=== PATIENT | male | born 1940 | race Caucasian/White ===

== ENCOUNTER → 2018-01-01 | Outpatient (CLI) | payer MEDICARE ==
[2018-01-01 14:06] LABS: SEDIMENTATION RATE 42 (0-15)
[2018-01-02 02:18] LABS: RHEUMATOID FACTOR <10.0 IU/mL (0.0-13.9)
[2018-01-03 20:13] LABS: ANA INTERP Positive (.)
== END | disposition home or self-care (01) ==
LOC: LAB 12:46
DX: E04.1 Nontoxic single thyroid nodule (principal); G93.0 Cerebral cysts
CPT/HCPCS: 36415; 85651; 86038; 86431

== ENCOUNTER 2018-04-28 15:49 | Emergency (ER) | payer MEDICARE ==
[~2018-04-28] VITALS: Ht 177.8 cm; Wt 68.0 kg
[~2018-04-28 15:49] MED LIST: ATEN25TA PO; LEVO50TA5 PO; LOSA1TAB19 PO; METO-239 PO; OMEP40CA5 PO
[2018-04-28] MEDS ORDERED: LIDOCAINE 1% PF 2 ML VIAL. INJ ONE (17:00)
[2018-04-28] MEDS ORDERED: DIPHTH,PERTUSS(ACELL),TET TOX 0.5 ML DISP.SYRIN. VAX IM ONE (17:00)
[2018-04-28] MEDS ORDERED: NEOMY/BACITR/POLYMYXIN OINT PACKET. TP ONE (18:00)
--- NOTE | 2018-04-28 18:29 | PHYS DOC ---
Past Medical History Past Medical History: Cancer, Depression Additional Past Medical Histor: prostate CA Past Surgical History: Cancer Surgery Additional Past Surgical Histo: prosectomy, right ankle Alcohol Use: Occasionally Drug Use: None Adult General Chief Complaint Chief Complaint: MECHANICAL FALL HPI HPI Patient is a 77 year old male who presents to the ER with complaints of a laceration to his left eyebrow and facial abrasions after trip and fall this afternoon. Pt states he was carrying groceries in when he tripped on the top step and fell. Pt denies any numbness, tingling, nausea, vomiting, or loss of consciousness. He denies any headache at this time. He is unsure of when his last tetanus shot was. He drove him self to the ER and lives at home with his . Review of Systems Review of Systems Constitutional: Denies fever or chills [] Eyes: Denies change in visual acuity, redness, or eye pain [] HENT: Denies nasal congestion or sore throat [] GI: Denies nausea, or vomiting Musculoskeletal: Denies back pain or joint pain [] Integument: Reports laceration to left eyebrow, and abrasions to bridge of nose and left upper lip Neurologic: Denies headache, focal weakness or sensory changes [] All other systems were reviewed and found to be within normal limits, except as documented in this note. Current Medications Current Medications Current Medications Medications (Trade) Dose Ordered Sig/Anjana Start Time Stop Time Status Last Admin Dose Admin Diphtheria/ Tetanus/Acell Pertussis (Boostrix) 0.5 ml ONCE ONCE 04/28/18 17:00 04/28/18 17:01 DC 04/28/18 17:03 0.5 ML Lidocaine HCl (Xylocaine-Mpf 1% 2ml Vial) 4 ml 1X ONCE 04/28/18 17:00 04/28/18 17:01 DC 04/28/18 17:03 4 ML Neomycin/ Polymyxin/ Bacitracin (Triple Antibiotic Ointment) 1 pkt 1X ONCE 04/28/18 18:00 04/28/18 18:01 DC 04/28/18 18:17 1 PKT Allergies Allergies Allergies Coded Allergies Type Severity Reaction Last Updated Verified No Known Drug Allergies 10/25/14 No Physical Exam Physical Exam Constitutional: Well developed, well nourished, no acute distress, non-toxic appearance. [] HENT: Normocephalic, atraumatic, bilateral external ears normal, oropharynx moist, no oral exudates, nose normal. [] Eyes: PERRLA, conjunctiva normal, no discharge. [] Neck: Normal range of motion, no body tenderness, supple, no stridor. [] Skin: Warm, dry; 3 cm laceration noted above left eyebrow, abrasions noted to bridge of nose and left upper lip] Extremities: No tenderness, no cyanosis, no clubbing, ROM intact, no edema. [] Neurologic: Alert and oriented X 3, normal motor function, normal sensory function, no focal deficits noted. [] Psychologic: Affect normal, judgement normal, mood normal. [] Current Patient Data Vital Signs Vital Signs Date Time Temp Pulse Resp B/P (MAP) Pulse Ox O2 Delivery O2 Flow Rate FiO2 04/28/18 16:34 97.7 76 20 155/71 (99) 98 Room Air 97.7 EKG EKG [] Radiology/Procedures Radiology/Procedures Laceration Repair by me: Anesthesia: 1% lidocaine locally Location: left eyebrow Tendon/Joint/Nerves: No injury Foreign body: None detected after copious irrigation and exploration Technique: 7 Simple Interrupted Sutures with 6-0 ethilon Complexity: No subcutaneous sutures/mucosal repair/edge excision Post Closure Length: 3 cm Patient's bleeding was easily controlled in the department and there is no indication of anemia. No evidence of compartment syndrome, neurologic injury, vascular injury, open joint, tendon laceration, or foreign body. Patient is appropriate for outpatient follow up. 48 hour wound check. Scar minimization instructions given.[] Course & Med Decision Making Course & Med Decision Making Pertinent Labs and Imaging studies reviewed. (See chart for details) Pt declined a CT head, states that his lives with him and he did not lose consciousness. Pt advised to have someone with him for the next 24 hours and agrees to return for any signs of head injury including change in LOC, somnolence, confusion, or severe headache. Laceration repair as reported above. Pt advised to follow up with PCP or return to ED in 5-7 days for suture removal. May take tylenol as needed for pain. Patient verbalized an understanding of home care, medications, follow-up, and return to ED instructions and was in agreement with the plan of care. [] Dragon Disclaimer Dragon Disclaimer This electronic medical record was generated, in whole or in part, using a voice recognition dictation system. Departure Departure Impression: Primary Impression: Fall as cause of accidental injury at home as place of occurrence Additional Impressions: Eyebrow laceration Nasal abrasion Head injury, acute, without loss of consciousness Disposition: 01 HOME, SELF-CARE Condition: GOOD Referrals: PAUL MELGOZA MD (PCP) Patient Instructions: Facial Laceration, Ozoh-op-Grip, Fall Prevention and Home Safety, Mohs-on-Ldgj, Head Injury, Adult, Ihxr-ik-Rulq Additional Instructions: Have someone stay with you for the next 24 hours. Return to the ER for any signs of a head injury. Keep laceration and abrasion sites clean and dry. Apply antibiotic ointment to abrasions three times a day. Tylenol as needed for pain. Return to the ER or follow up with your doctor in 5-7 days for suture removal. Problem Qualifiers Primary Impression: Fall as cause of accidental injury at home as place of occurrence Encounter type: initial encounter Qualified Codes: W19.XXXA - Unspecified fall, initial encounter; Y92.009 - Unspecified place in unspecified non- institutional (private) residence as the place of occurrence of the external cause Additional Impressions: Eyebrow laceration Encounter type: initial encounter Laterality: left Qualified Codes: S01.112A - Laceration without foreign body of left eyelid and periocular area, initial encounter Nasal abrasion Encounter type: initial encounter Qualified Codes: S00.31XA - Abrasion of nose, initial encounter Head injury, acute, without loss of consciousness Encounter type: initial encounter Qualified Codes: S09.90XA - Unspecified injury of head, initial encounter JUAN KELSEY SOLUTION DIRECTOR Apr 28, 2018 18:29
[2018-04-28 18:34] VITALS: BP 147/78
== END 2018-04-28 19:32 | disposition home or self-care (01) ==
LOC: ER 15:49
DX: S01.112A Laceration without foreign body of left eyelid and periocular area, initial encounter (principal); S00.31XA Abrasion of nose, initial encounter; S09.90XA Unspecified injury of head, initial encounter; W01.0XXA Fall on same level from slipping, tripping and stumbling without subsequent striking against object, initial encounter; Y93.89 Activity, other specified; Y92.89 Other specified places as the place of occurrence of the external cause; Y99.8 Other external cause status
CPT/HCPCS: 12013; 90471; 90715; 99284-25

== ENCOUNTER 2018-05-04 11:59 | Emergency (ER) | payer MEDICARE ==
[~2018-05-04] VITALS: Ht 177.8 cm; Wt 68.0 kg
[2018-05-04 14:20] VITALS: BP 131/79
--- NOTE | 2018-05-04 14:35 | PHYS DOC ---
Past Medical History Past Medical History: Cancer, Depression Additional Past Medical Histor: prostate CA Past Surgical History: Cancer Surgery Additional Past Surgical Histo: prosectomy, right ankle Alcohol Use: Occasionally Drug Use: None Adult General Chief Complaint Chief Complaint: SUTURE/STAPLE REMOVAL HPI HPI Patient is a 77 year old M who presents for suture removal. Patient had sutures placed to right eyebrow after fall. Review of Systems Review of Systems Integument: Suture removal All other systems were reviewed and found to be within normal limits, except as documented in this note. Allergies Allergies Allergies Coded Allergies Type Severity Reaction Last Updated Verified No Known Drug Allergies 10/25/14 No Physical Exam Physical Exam Constitutional: Well developed, well nourished, no acute distress, non-toxic appearance. [] HENT: Normocephalic, sutures in place to right eyebrow, no erythema or warmth. Crusting over sutures. Skin: Warm, dry, no erythema, no rash. [] Psychologic: Affect normal, judgement normal, mood normal. [] Current Patient Data Vital Signs Vital Signs Date Time Temp Pulse Resp B/P (MAP) Pulse Ox O2 Delivery O2 Flow Rate FiO2 05/04/18 14:20 97.5 78 131/79 (96) 95 97.5 05/04/18 14:05 22 Room Air EKG EKG [] Radiology/Procedures Radiology/Procedures [] Course & Med Decision Making Course & Med Decision Making Pertinent Labs and Imaging studies reviewed. (See chart for details) Sutures removed without event. Plan wound care instructions. Dragon Disclaimer Dragon Disclaimer This electronic medical record was generated, in whole or in part, using a voice recognition dictation system. Departure Departure Impression: Primary Impression: Visit for suture removal Disposition: 01 HOME, SELF-CARE Condition: GOOD Referrals: PAUL MELGOZA MD (PCP) Patient Instructions: Wound Care, Ooht-yu-Nfce Attending Signature Attending Signature I have reviewed the PA/PROFESSIONAL ATHLETES COACH's note and plan of care. I was available for consultation as needed during the patient's visit in the emergency department. I agree with the clinical impression, plan, and disposition. BREEZY BOURGEOIS APRN May 04, 2018 14:35 LOURDES RIVAS DO May 10, 2018 03:51
== END 2018-05-04 15:33 | disposition home or self-care (01) ==
LOC: ER 11:59
DX: S01.111D Laceration without foreign body of right eyelid and periocular area, subsequent encounter (principal); F32.9 Major depressive disorder, single episode, unspecified; W19.XXXD Unspecified fall, subsequent encounter
CPT/HCPCS: 99281

== ENCOUNTER → 2018-05-10 | Outpatient (CLI) | payer MEDICARE ==
[2017-08-01 11:00] VITALS: BP_DIAS 79
[2018-05-04 14:20] VITALS: BP_SYST 131
--- NOTE | 2018-05-10 11:05 | RAD ---
CT of the chest without contrast, 05/10/2018: HISTORY: Lung nodules Noncontrast scans were obtained and compared to a study from 07/28/2017. There are calcified granulomata in both lungs. There are scattered lucencies in the lungs with prominent reticular, interstitial type opacities, particularly in the lower chest bilaterally. The findings suggest a combination of emphysema and severe basilar fibrosis with honeycombing and bronchiectasis. The basilar opacities have improved slightly since the previous study suggesting interval resolution of superimposed pneumonia. No definite pulmonary mass is seen. No pleural fluid is evident. There is moderate calcific plaquing of the thoracic aorta without evidence of aneurysm. Moderate coronary artery calcifications are present. The heart is generally enlarged. There are calcified mediastinal and hilar lymph nodes due to old granulomatous disease. There are mediastinal lymph nodes evident. These include a mildly enlarged 1.3 cm lymph node located between the innominate artery and left common carotid artery origins. A subcarinal lymph node is also prominent. These findings are unchanged, suggesting that these nodes are reactive. IMPRESSION: 1. 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 Bibasilar infiltrates have improved since 07/28/2017. 2. Stable mild mediastinal adenopathy. 3. Cardiomegaly with calcific plaquing of the aorta and coronary arteries. PQRS Compliance Statement: One or more of the following individualized dose reduction techniques were utilized for this examination: 1. Automated exposure control 2. Adjustment of the mA and/or kV according to patient size 3. Use of iterative reconstruction technique Electronically signed by: Paulo Sanchez MD (05/10/2018 11:02 AM) [facility] [place]
[2018-05-10 19:14] LABS: RHEUMATOID FACTOR <10.0 IU/mL (0.0-13.9)
[2018-05-12 17:15] LABS: ANA INTERP Negative (.)
== END | disposition home or self-care (01) ==
LOC: CT 09:59
PROVIDERS: ATTEND Internal Medicine Pulmonary Disease
DX: R91.1 Solitary pulmonary nodule (principal); J43.9 Emphysema, unspecified; J47.9 Bronchiectasis, uncomplicated; R59.0 Localized enlarged lymph nodes; I51.7 Cardiomegaly; E78.00 Pure hypercholesterolemia, unspecified; I10 Essential (primary) hypertension; K21.9 Gastro-esophageal reflux disease without esophagitis; M19.90 Unspecified osteoarthritis, unspecified site; E03.9 Hypothyroidism, unspecified; F32.9 Major depressive disorder, single episode, unspecified; F17.210 Nicotine dependence, cigarettes, uncomplicated; Z86.010 Personal history of colon polyps; Z85.47 Personal history of malignant neoplasm of testis; Z85.46 Personal history of malignant neoplasm of prostate
CPT/HCPCS: 36415; 71250; 85651; 86038; 86431

== ENCOUNTER → 2018-09-06 | Outpatient (CLI) | payer MEDICARE ==
[2018-08-30 15:00] VITALS: BP 106/73
[~2018-09-06] MED LIST changes: +AMOX1TAB61 PO; +ASPI-612 PO; +BUDE0.5A NEB; +BUPR150T15 PO; +BUPR150T20 PO; +BUSP30TA PO; +DILT120C71 PO; +DILT120C85 PO; +DILT180C29 PO; +DOXY100T PO; +FURO-68 PO; +HYDR-2765 PO; +IPRA3AMP29 NEB; +LEVO75TA5 PO; +LEVO88TA2 PO; +LOSA-73 PO; +MAGN70TA2 PO; +OXYB10TA PO; +POTA10TA12 PO; +PRED-220 PO; +PRED15SO3 PO; +PRED20TA PO; +REGADENOSON 0.4 MG/5 ML DISP.SYRIN. IV ONE
--- NOTE | 2018-09-06 14:51 | RAD ---
MR#: [id number] Date of Study: 09/06/2018 Ordering Physician: ALESSIA BROWN, Referring Physician: VIKA HERNANDEZ Tech: RT Nimesh Fabian) (N)JORDAN Cohn APPROVED REPORT Test Type: Pharmacological Stress Nurse/Tech: Yaneth LOJA Test Indications: Atrial Fibrillation, CP Cardiac History: Tachycardia, A-fib, CP Medications: See EMR Medical History: COPD, X-Smoker, Prostate CA, See EMR Resting ECG: SA Resting Heart Rate: 82 bpm Resting Blood Pressure: 138/80mmHg Pretest Chest Pain: No chest pain Nurse/Tech Notes Lungs CTA, Heart tones irregular Consent: The procedure was explained to the patient in lay terms. Informed consent was witnessed. Rashid eout was entered into [employer]. History and Stress Test performed by RT Nimesh Fabian) (N) Pharm. Details Pharmacologic stress testing was performed using 0.4mg per 5ml of regadenoson given intravenously ove r 7-10 seconds. Stress Symptoms No chest pain or symptoms. POST EXERCISE Reason for Termination: Infusion complete Max HR: 138 bpm Max Blood Pressure: 123/63mmHg Chest Pain: No. Arrhythmia: No. ST Change: No. INTERPRETATION Stress EKG Conclusion: Baseline EKG showed sinus rhythm. No ischemic changes at peak stress. No arr hythmias. Imaging Protocol IMAGE PROTOCOL: Rest Tc-99m/stress Tc-99m 1 day Rest: Stress: Viability: Radiopharm.Tc99m EgepezzcuTf18c Sestamibi Qehf75jVo 34mCi Duration 15min. 11min. Img Date 09/06/2018 09/06/2018 Inj-Img [id number]. 60min. Rest Admin Site:IV - Right AntecubitalAdministrator:JORDAN Cohn Stress Admin Site: IV - Right AntecubitalAdministrator: RT Nimesh Fabian)(N) STRESS DATA End Diast. Vol.72.0mlAv. Heart Rate89.0bpm End Syst. Vol.26.0mlCO Index BSA0.0L/min Myocardial Ykhz284.0gEject. Pwkmpiar58.0% Stress Rates Pk. Fill Rate3.24EDV/secLVtime Pk. Fill 204.95msec Pk. Empty Rate4.30ESV/secLVtime Pk. Eject99.54msec 1/3 Pk. Fill0.95EDV/sec Stress Scores Regional WT0.00Summed WT8.00 Regional WM0.00Summed WM1.00 Study quality was good. Left Ventricular size was Normal at Rest and Stress. Lung uptake was . Left Ventricular ejection fraction is 64%. The rest and stress images show normal perfusion, normal contraction and thickening. LV Perf. Quant 17 Seg. SSS0.00 17 Seg. SRS0.00 17 Seg. SDS0.00 Stress Defect Extent (% LAD)0.00Rest Defect Extent (% LAD)0.00Rev. Defect Extent (% LAD)0.00 Stress Defect Extent (% LCX) 0.00Rest Defect Extent (% LCX)0.00Rev. Defect Extent (% LCX)0.00 Stress Defect Extent (% RCA)0.00Rest Defect Extent (% RCA)0.00Rev. Defect Extent (% RCA)0.00 Stress Defect Extent (% YARY)0.00Rest Defect Extent (% YARY)0.00Rev. Defect Extent (% YARY)0.00 Conclusion 1. Regadenoson cardioisotope stress test did not show any evidence of ischemia or infarct. 2. Normal left ventricular systolic function with ejection fraction calculated at 64%. 3. Low risk for cardiac events. Signed by : Zhang Muñoz, Electronically Approved : 09/06/2018 14:48:58
== END | disposition home or self-care (01) ==
LOC: NM 10:16 → MERGE 10:30
PROVIDERS: ATTEND Internal Medicine Cardiovascular Disease
DX: R07.9 Chest pain, unspecified (principal); I48.91 Unspecified atrial fibrillation; I07.9 Rheumatic tricuspid valve disease, unspecified; J44.9 Chronic obstructive pulmonary disease, unspecified; Z87.891 Personal history of nicotine dependence; Z85.46 Personal history of malignant neoplasm of prostate; Z79.01 Long term (current) use of anticoagulants
CPT/HCPCS: 78452; 93017; 96374; A9500; J2785

== ENCOUNTER 2018-09-12 17:21 | Inpatient (IN) | payer MEDICARE ==
[~2018-09-12] VITALS: Ht 177.8 cm; Wt 60.1 kg
[~2018-09-12 17:21] MED LIST changes: -REGADENOSON 0.4 MG/5 ML DISP.SYRIN. IV ONE
[2018-09-12] MEDS ORDERED: FAMOTIDINE 20 MG/2 ML VIAL IVP ONE (17:45)
[2018-09-12] MEDS ORDERED: ONDANSETRON PF 4 MG/2 ML VIAL. IV ONE (17:45)
[2018-09-12 17:59] LABS: BASO # 0.1 x10^3/uL (0.0-0.2); BASO % 0 % (0-3); EOS % 0 % (0-3); HEMATOCRIT 41.4 % (39.0-53.0); HEMOGLOBIN 13.9 g/dL (13.0-17.5); LYMPH # 1.4 x10^3/uL (1.0-4.8); LYMPH % 10 % (24-48); MEAN CORPUSCULAR HEMOGLOBIN 32 pg (25-35); MEAN CORPUSCULAR HGB CONC 34 g/dL (31-37); MEAN CORPUSCULAR VOLUME 95 fL (79-100); MONO # 1.7 x10^3/uL (0.0-1.1); MONO % 12 % (0-9); NEUT % 78 % (31-73); PLATELET COUNT 296 x10^3/uL (140-400); RED BLOOD COUNT 4.37 x10^6/uL (4.30-5.70); WHITE BLOOD COUNT 14.1 x10^3/uL (4.0-11.0)
--- NOTE | 2018-09-12 18:04 | PHYS DOC ---
Past Medical History Past Medical History: A-Fib, Cancer, CHF, COPD, Depression Additional Past Medical Histor: prostate CA, pulmonary fibrosis, Hep C. PT IS POOR HISTORIAN Past Surgical History: Cancer Surgery Additional Past Surgical Histo: prosectomy, right ankle Alcohol Use: None Drug Use: None Adult General Chief Complaint Chief Complaint: WEAKNESS/GENERALIZED HPI HPI Patient is a 78 year old male with history of A. fib, depression, COPD, on oxygen 2 L at home as needed, CHF, who presents to the ED today to be evaluated for nausea, vomiting, and generalized weakness for 4 days. Patient denies any diarrhea. He states today he had slight generalized abdominal pain. Denies any hematemesis. He states he has had poor appetite with decreased PO intake for 3 days. He states he feels he is using his oxygen more than normal. Review of Systems Review of Systems Constitutional: Reports generalized weakness. Denies fever or chills [] Eyes: Denies change in visual acuity, redness, or eye pain [] HENT: Denies nasal congestion or sore throat [] Respiratory: Reports increased to use of oxygen. Denies cough or shortness of breath [] Cardiovascular: No additional information not addressed in HPI [] GI: Reports generalized abdominal pain, nausea, vomiting, poor appetite, denies bloody stools or diarrhea [] : Denies dysuria or hematuria [] Musculoskeletal: Denies back pain or joint pain [] Integument: Denies rash or skin lesions [] Neurologic: Denies headache, focal weakness or sensory changes [] All other systems were reviewed and found to be within normal limits, except as documented in this note. Current Medications Current Medications Current Medications Medications (Trade) Dose Ordered Sig/Anjana Start Time Stop Time Status Last Admin Dose Admin Famotidine (Pepcid Vial) 20 mg 1X ONCE 09/12/18 17:45 09/12/18 17:46 DC 09/12/18 18:07 20 MG Fentanyl Citrate (Fentanyl 2ml Vial) 50 mcg 1X ONCE 09/12/18 20:00 09/12/18 20:01 DC 09/12/18 20:21 50 MCG Info (CONTRAST GIVEN -- Rx MONITORING) 1 each PRN DAILY PRN 09/12/18 18:45 09/14/18 18:44 Iohexol (Omnipaque 300 Mg/ml) 75 ml 1X ONCE 09/12/18 18:30 09/12/18 18:34 DC 09/12/18 18:35 75 ML Ondansetron HCl (Zofran) 4 mg 1X ONCE 09/12/18 17:45 09/12/18 17:46 DC 09/12/18 18:07 4 MG Allergies Allergies Allergies Coded Allergies Type Severity Reaction Last Updated Verified No Known Drug Allergies 10/25/14 No Physical Exam Physical Exam Constitutional: Thin appearing patient, no acute distress, non-toxic appearance. [] HENT: Normocephalic, atraumatic, bilateral external ears normal, oropharynx moist, no oral exudates, nose normal. [] Eyes: PERRLA, EOMI, conjunctiva normal, no discharge. [] Neck: Normal range of motion, no tenderness, supple, no stridor. [] Cardiovascular:Heart rate regular rhythm, no murmur [] Lungs & Thorax: Decreased breath sounds to posterior lung bases, patient is on oxygen 2 L Abdomen: Bowel sounds normal, soft, no tenderness, no masses, no pulsatile masses. [] Skin: Warm, dry, no erythema, no rash. [] Back: No tenderness, no CVA tenderness. [] Extremities: No tenderness, no cyanosis, no clubbing, ROM intact, no edema. [] Neurologic: Alert and oriented X 3, normal motor function, normal sensory function, no focal deficits noted. Cranial nerves II through XII intact Psychologic: Affect normal, judgement normal, mood normal. [] Current Patient Data Vital Signs Vital Signs Date Time Temp Pulse Resp B/P (MAP) Pulse Ox O2 Delivery O2 Flow Rate FiO2 09/12/18 17:34 97.8 99 18 162/106 (124) 99 Room Air 97.8 Lab Values Laboratory Tests Test 09/12/18 17:45 White Blood Count 14.1 x10^3/uL (4.0-11.0) H Red Blood Count 4.37 x10^6/uL (4.30-5.70) Hemoglobin 13.9 g/dL (13.0-17.5) Hematocrit 41.4 % (39.0-53.0) Mean Corpuscular Volume 95 fL (79-100) Mean Corpuscular Hemoglobin 32 pg (25-35) Mean Corpuscular Hemoglobin Concent 34 g/dL (31-37) Red Cell Distribution Width 14.0 % (11.5-14.5) Platelet Count 296 x10^3/uL (140-400) Neutrophils (%) (Auto) 78 % (31-73) H Lymphocytes (%) (Auto) 10 % (24-48) L Monocytes (%) (Auto) 12 % (0-9) H Eosinophils (%) (Auto) 0 % (0-3) Basophils (%) (Auto) 0 % (0-3) Neutrophils # (Auto) 11.0 x10^3uL (1.8-7.7) H Lymphocytes # (Auto) 1.4 x10^3/uL (1.0-4.8) Monocytes # (Auto) 1.7 x10^3/uL (0.0-1.1) H Eosinophils # (Auto) 0.0 x10^3/uL (0.0-0.7) Basophils # (Auto) 0.1 x10^3/uL (0.0-0.2) Prothrombin Time 16.0 SEC (11.7-14.0) H Prothrombin Time INR 1.3 (0.8-1.1) H Sodium Level 139 mmol/L (136-145) Potassium Level 3.3 mmol/L (3.5-5.1) L Chloride Level 97 mmol/L (98-107) L Carbon Dioxide Level 28 mmol/L (21-32) Anion Gap 14 (6-14) Blood Urea Nitrogen 36 mg/dL (8-26) H Creatinine 1.1 mg/dL (0.7-1.3) Estimated GFR (Cockcroft-Gault) 65.1 BUN/Creatinine Ratio 33 (6-20) H Glucose Level 82 mg/dL (70-99) Calcium Level 10.2 mg/dL (8.5-10.1) H Magnesium Level 2.2 mg/dL (1.8-2.4) Total Bilirubin 1.1 mg/dL (0.2-1.0) H Aspartate Amino Transferase (AST) 14 U/L (15-37) L Alanine Aminotransferase (ALT) 14 U/L (16-63) L Alkaline Phosphatase 82 U/L (46-116) Creatine Kinase 12 U/L (39-308) L Creatine Kinase MB (Mass) 0.6 ng/mL (0.0-3.6) Creatine Kinase MB Relative Index % (0-4) Troponin I Quantitative 0.029 ng/mL (0.000-0.055) NZ-Ikl-W-Type Natriuretic Peptide 642 pg/mL (0-449) H Total Protein 7.7 g/dL (6.4-8.2) Albumin 3.2 g/dL (3.4-5.0) L Albumin/Globulin Ratio 0.7 (1.0-1.7) L Lipase 43 U/L (73-393) L Laboratory Tests 09/12/18 17:45 Laboratory Tests 09/12/18 17:45 EKG EKG [] Radiology/Procedures Radiology/Procedures []PROCEDURE: CT ABD PELV W/ IV CONTRST ONLY CT abdomen and pelvis with IV contrast 09/12/2018. Reason for exam: Nausea and vomiting for [address] images were made through the abdomen and pelvis using an infusion of 75 mL Omnipaque 300. No oral contrast was given. Exposure: One or more of the following individualized dose reduction techniques were utilized for this examination: 1. Automated exposure control 2. Adjustment of the mA and/or kV according to patient size 3. Use of iterative reconstruction technique. Comparison is made with a prior study done on 06/11/2018. FINDINGS: Pulmonary fibrosis is again seen through the lung bases. The liver and spleen are homogeneous in density and normal in configuration. Both kidneys enhance with contrast. No solid mass or obstruction is seen. The adrenal glands are not enlarged. The pancreas appears normal. No retroperitoneal or mesenteric adenopathy is seen. There is no apparent abdominal soft tissue mass. There is diffuse small bowel dilatation consistent with obstruction. A transition point is seen in the mid pelvis. Bowel loops distal to this appear to show some wall thickening and possible mucosal hyperenhancement, raising the possibility of a component of inflammation. The more distal small bowel is decompressed. There is an additional segment of dilated small bowel in the mid pelvis adjacent to the loops showing wall thickening. No definite extraluminal collection is seen. Images through the pelvis show no abnormality of the distal ureters or bladder. IMPRESSION: There is evidence of small bowel obstruction, with a transition point seen in the mid pelvis. Bowel loops distal to this level show some areas of wall thickening and mucosal enhancement suggesting an inflammatory process. Crohn's disease would be a consideration. Electronically signed by: lAessia Heck Jr., MD (09/12/2018 6:45 PM) [facility] DICTATED and SIGNED BY: ALESSIA HECK Jr, MD DATE: 09/12/181837 Course & Med Decision Making Course & Med Decision Making Pertinent Labs and Imaging studies reviewed. (See chart for details) This is a 78-year-old male patient presented to the ED today with multiple complaints including generalized weakness, nausea, vomiting, poor appetite, symptoms of 4 days. Also complaining of slight abdominal pain generalized in nature today. Also complaining of increased use of his oxygen at home. CBC with a WBC of 14.1, CT of the abdomen and pelvic noted for small bowel obstruction, with a transition point seen in the mid pelvis. Bowel loops distal to this level show some areas of wall thickening and mucosal enhancement suggesting an inflammatory process. Crohn's disease would be a consideration. Spoke with Dr. Momin, he requested NG placement, IV fluids. Orders were implemented. Spoke with Dr. Ho who accepted patient for admission on behalf of Dr.Parra Polk Disclaimer Dragcary Disclaimer This electronic medical record was generated, in whole or in part, using a voice recognition dictation system. Departure Departure Impression: Primary Impression: Small bowel obstruction Additional Impression: Generalized weakness Disposition: ADMITTED INPATIENT Condition: STABLE Referrals: LOURDES POLLOCK MD (PCP) Problem Qualifiers SANJUANA OWUSU APRN Sep 12, 2018 18:04
[2018-09-12 18:09] LABS: CALCIUM 10.2 mg/dL (8.5-10.1); CREATININE 1.1 mg/dL (0.7-1.3); GFR 65.1; POTASSIUM 3.3 mmol/L (3.5-5.1)
[2018-09-12 18:15] LABS: ALBUMIN 3.2 g/dL (3.4-5.0); ALBUMIN/GLOBULIN RATIO 0.7 (1.0-1.7); MAGNESIUM 2.2 mg/dL (1.8-2.4); TOTAL BILIRUBIN 1.1 mg/dL (0.2-1.0); TOTAL PROTEIN 7.7 g/dL (6.4-8.2)
[2018-09-12] MEDS ORDERED: IOHEXOL 300 MG/ML 100ML VIAL. IV ONE (18:30)
[2018-09-12 18:38] LABS: CREATINE KINASE 12 U/L (39-308)
[2018-09-12] MEDS ORDERED: CONTRAST GIVEN. MC PRN (18:45)
--- NOTE | 2018-09-12 18:50 | RAD ---
CT abdomen and pelvis with IV contrast 09/12/2018. Reason for exam: Nausea and vomiting for [address] images were made through the abdomen and pelvis using an infusion of 75 mL Omnipaque 300. No oral contrast was given. Exposure: One or more of the following individualized dose reduction techniques were utilized for this examination: 1. Automated exposure control 2. Adjustment of the mA and/or kV according to patient size 3. Use of iterative reconstruction technique. Comparison is made with a prior study done on 06/11/2018. FINDINGS: Pulmonary fibrosis is again seen through the lung bases. The liver and spleen are homogeneous in density and normal in configuration. Both kidneys enhance with contrast. No solid mass or obstruction is seen. The adrenal glands are not enlarged. The pancreas appears normal. No retroperitoneal or mesenteric adenopathy is seen. There is no apparent abdominal soft tissue mass. There is diffuse small bowel dilatation consistent with obstruction. A transition point is seen in the mid pelvis. Bowel loops distal to this appear to show some wall thickening and possible mucosal hyperenhancement, raising the possibility of a component of inflammation. The more distal small bowel is decompressed. There is an additional segment of dilated small bowel in the mid pelvis adjacent to the loops showing wall thickening. No definite extraluminal collection is seen. Images through the pelvis show no abnormality of the distal ureters or bladder. IMPRESSION: There is evidence of small bowel obstruction, with a transition point seen in the mid pelvis. Bowel loops distal to this level show some areas of wall thickening and mucosal enhancement suggesting an inflammatory process. Crohn's disease would be a consideration. Electronically signed by: Donta Heck Jr., MD (09/12/2018 6:45 PM) [facility]
[2018-09-12] MEDS ORDERED: fentaNYL PF VIAL 100 MCG/2 ML VIAL IV ONE (20:00)
[2018-09-12] MEDS ORDERED: IV NORMAL SALINE 1000ML BAG 1,000 ML IV ONE (20:30)
[2018-09-12] MEDS ORDERED: CIPROFLOXACIN 400MG PREMIX 200 ML IV ONE (20:30)
[2018-09-12] MEDS ORDERED: ONDANSETRON PF 4 MG/2 ML VIAL. IV PRN (20:30)
[2018-09-12] MEDS: MORPHINE SULFATE 4 MG/ML VIAL. IV PRN ×2 (20:47→22:57)
[2018-09-12 22:45] VITALS: BP 150/79
[2018-09-13 03:00] VITALS: BP 136/79
--- NOTE | 2018-09-13 03:20 | RAD ---
PORTABLE CHEST 1V Clinical History: Weakness Technique: AP view of the chest was obtained at 09/12/2018 5:39 PM. Comparison: July 12, 2018. Findings: The heart is normal size. The pulmonary vessels appear normal. There is increased reticular opacities throughout the lungs and linear opacities in the lung bases. Impression: Diffuse reticular opacities is likely chronic pulmonary fibrosis. It is difficult to exclude possible superposition of mild fluid overload or atypical pneumonia however this appears moderately improved from the prior study. Electronically signed by: Solo Simmons III, MD (09/13/2018 3:15 AM) [id number]
[2018-09-13] MEDS: MORPHINE SULFATE 4 MG/ML VIAL. IV PRN ×3 (03:41→21:18)
--- NOTE | 2018-09-13 03:42 | RAD ---
One view abdomen HISTORY: Status post NG tube placement Portable upright AP view abdomen 8:17 PM There is an NG tube with its tip in the proximal stomach. Is multiple dilated air-filled loops of small bowel. There is no free air. There is patchy reticular opacities in the lungs. IMPRESSION: 1. NG tube adequately positioned. 2. Abnormal bowel gas pattern consistent with a proximal to mid bowel obstruction. 3. Bilateral pulmonary infiltrates. Electronically signed by: Solo Simmons III, MD (09/13/2018 3:38 AM) [id number]
[2018-09-13 06:07] LABS: BASO % 0 % (0-3); EOS % 0 % (0-3); HEMATOCRIT 37.7 % (39.0-53.0); HEMOGLOBIN 12.8 g/dL (13.0-17.5); LYMPH % 8 % (24-48); MEAN CORPUSCULAR HEMOGLOBIN 32 pg (25-35); MEAN CORPUSCULAR HGB CONC 34 g/dL (31-37); MEAN CORPUSCULAR VOLUME 94 fL (79-100); MONO # 1.6 x10^3/uL (0.0-1.1); MONO % 13 % (0-9); NEUT % 79 % (31-73); PLATELET COUNT 249 x10^3/uL (140-400); RED BLOOD COUNT 3.99 x10^6/uL (4.30-5.70); RED CELL DISTRIBUTION WIDTH 13.9 % (11.5-14.5); WHITE BLOOD COUNT 12.7 x10^3/uL (4.0-11.0)
[2018-09-13 06:34] LABS: ALBUMIN 2.6 g/dL (3.4-5.0); ALBUMIN/GLOBULIN RATIO 0.7 (1.0-1.7); CREATININE 1.1 mg/dL (0.7-1.3); GFR 65.1; TOTAL BILIRUBIN 0.8 mg/dL (0.2-1.0); TOTAL PROTEIN 6.5 g/dL (6.4-8.2)
[2018-09-13 07:00] VITALS: BP 114/76
[2018-09-13] MEDS: IPRATRPIUM/ALBUTEROL 0.5/2.5MG 3 ML NEBU. NEB SCH ×4 (09:30→19:53)
--- NOTE | 2018-09-13 10:07 | PDOC2 ---
CONSULT Date of Consult Date of Consult DATE: 09/13/18 TIME: 09:54 Reason for Consult Reason for Consult: SBO Referring Physician Referring Physician: Dr Garcia Identification/Chief Complaint Chief Complaint nausea and vomiting Source Source: Chart review, Patient History of Present Illness Reason for Visit: Mr Johnson is a 78 yo gentleman with heart and lung issues presents with some vague abdominal pain and n/v. Poor appetite last few days. CT scan shows SBO with transition in mid distal ileum Past Medical History Cardiovascular: AFIB, HTN, Hyperlipidemia, Other Pulmonary: COPD CENTRAL NERVOUS SYSTEM: Other GI: GERD, Other Heme/Onc: Cancer Hepatobiliary: Hep A/B/C Psych: Anxiety Musculoskeletal: low back pain, Osteoarthritis Rheumatologic: No pertinent hx Infectious disease: No pertinent hx Renal/: Prostate Ca. Endocrine: Hypothyroidism Past Surgical History Past Surgical History: Appendectomy, Tonsillectomy, Other Family History Family History: Other Social History No ALCOHOL: occassional Drugs: None Lives: Alone Current Problem List Problem List Problems Medical Problems: (1) Generalized weakness Status: Acute Current Medications Current Medications Current Medications Famotidine (Pepcid Vial) 20 mg 1X ONCE IVP Last administered on 09/12/18at 18: 07; Start 09/12/18 at 17:45; Stop 09/12/18 at 17:46; Status DC Ondansetron HCl (Zofran) 4 mg 1X ONCE IV Last administered on 09/12/18at 18:07 ; Start 09/12/18 at 17:45; Stop 09/12/18 at 17:46; Status DC Iohexol (Omnipaque 300 Mg/ml) 75 ml 1X ONCE IV Last administered on 09/12/18at 18:35; Start 09/12/18 at 18:30; Stop 09/12/18 at 18:34; Status DC Info (CONTRAST GIVEN -- Rx MONITORING) 1 each PRN DAILY PRN MC SEE COMMENTS; Start 09/12/18 at 18:45; Stop 09/14/18 at 18:44 Fentanyl Citrate (Fentanyl 2ml Vial) 50 mcg 1X ONCE IV Last administered on 05/21at 20:21; Start 09/12/18 at 20:00; Stop 09/12/18 at 20:01; Status DC Ondansetron HCl (Zofran) 4 mg PRN Q8HRS PRN IV NAUSEA/VOMITING; Start 09/12/18 at 20:30; Stop 09/13/18 at 20:29 Morphine Sulfate (Morphine Sulfate) 4 mg PRN Q2HR PRN IV PAIN Last administered on 09/13/18at 03:41; Start 09/12/18 at 20:30; Stop 09/13/18 at 20:29 Metronidazole 100 ml @ 100 mls/hr Q8HRS IV Last administered on 09/13/18at 05: 39; Start 09/12/18 at 22:00 Ciprofloxacin/ Dextrose 200 ml @ 200 mls/hr 1X ONCE IV Last administered on at 22:51; Start 09/12/18 at 20:30; Stop 09/12/18 at 21:29; Status DC Sodium Chloride 1,000 ml @ 75 mls/hr 1X ONCE IV Last administered on at 22:51; Start 09/12/18 at 20:30; Stop 09/13/18 at 09:49; Status DC Budesonide (Pulmicort) 0.5 mg RTBID NEB ; Start 09/13/18 at 09:30 Albuterol/ Ipratropium (Duoneb) 3 ml RTQID NEB ; Start 09/13/18 at 09:30 Methylprednisolone Sodium Succinate (SOLU-Medrol 40MG VIAL) 20 mg DAILY IV ; Start 09/13/18 at 10:00 Pantoprazole Sodium (PROTONIX VIAL for IV PUSH) 40 mg DAILYAC IVP ; Start at 10:00 Enoxaparin Sodium (Lovenox 40mg Syringe) 40 mg Q24H SQ ; Start 09/13/18 at 10:00 Active Scripts Active Magnesium Chloride 70 Mg Tablet.dr 64 Mg PO DAILY 30 Days Synthroid (Levothyroxine Sodium) 88 Mcg Tablet 88 Mcg PO DAILY06 30 Days Prednisone 20 Mg Tablet 20 Mg PO DAILY 30 Days Budesonide 0.5 Mg/2 Ml Ampul.neb 0.5 Mg NEB RTBID 30 Days Diltiazem 24HR Cd (Diltiazem Hcl) 180 Mg Cap.er.24h 180 Mg PO DAILY 90 Days Prednisone (Prednisone) 10 Mg Tablet 40 Mg PO DAILY 30 Days Klor-Con 10 (Potassium Chloride) 10 Meq Tablet.er 1 Tab PO DAILY Lasix (Furosemide) 40 Mg Tablet 1 Tab PO DAILY Aspirin Ec (Aspirin) 81 Mg Tablet. 81 Mg PO DAILYWBKFT 30 Days Duoneb 0.5-3(2.5) Mg/3 Ml (Albuterol/Ipratropium) 3 Ml Ampul.neb 3 Ml NEB RTQID 30 Days Diltiazem 24HR Cd (Diltiazem Hcl) 120 Mg Cap.er.24h 120 Mg PO DAILY 30 Days Reported Hydrocodone-Apap 7.5-325 (Hydrocodone Bit/Acetaminophen) 1 Tab Tablet 1 Tab PO PRN Q6HRS PRN Prednisolone Sodium Phosphate (Prednisolone Sod Phosphate) 15 Mg/5 Ml Solution 15 Mg PO DAILY Omeprazole 40 Mg Capsule. 40 Mg PO DAILY Cartia Xt (Diltiazem Hcl) 120 Mg Cap.er.24h 120 Mg PO DAILY Wellbutrin Xl (Bupropion Hcl) 150 Mg Tab.er.24h 1 Tab PO DAILY Omeprazole 40 Mg Capsule. 1 Cap PO Allergies Allergies: Coded Allergies: No Known Drug Allergies (Unverified , 10/25/14) ROS General: YES: Fatigue PSYCHOLOGICAL ROS: YES: Depression Respiratory: YES: Shortness of breath Gastrointestinal: Yes Nausea, Yes Vomiting, Yes Abdominal Pain Physical Exam General: Alert, Other (chronically ill appearing gentleman in NAD) HEENT: Atraumatic Lungs: Normal air movement, Other Heart: Other (irregularly irregular rhythm) Abdomen: Soft, Other (minimally TTP, well healed short supraumbilical midline scar) Vitals VITALS Vital Signs Date Time Temp Pulse Resp B/P (MAP) Pulse Ox O2 Delivery O2 Flow Rate FiO2 09/13/18 07:40 Room Air 09/13/18 07:00 96.7 71 13 114/76 (89) 91 96.7 Labs Labs Laboratory Tests Test 09/12/18 17:45 09/13/18 04:55 White Blood Count 14.1 x10^3/uL (4.0-11.0) 12.7 x10^3/uL (4.0-11.0) Red Blood Count 4.37 x10^6/uL (4.30-5.70) 3.99 x10^6/uL (4.30-5.70) Hemoglobin 13.9 g/dL (13.0-17.5) 12.8 g/dL (13.0-17.5) Hematocrit 41.4 % (39.0-53.0) 37.7 % (39.0-53.0) Mean Corpuscular Volume 95 fL (79-100) 94 fL (79-100) Mean Corpuscular Hemoglobin 32 pg (25-35) 32 pg (25-35) Mean Corpuscular Hemoglobin Concent 34 g/dL (31-37) 34 g/dL (31-37) Red Cell Distribution Width 14.0 % (11.5-14.5) 13.9 % (11.5-14.5) Platelet Count 296 x10^3/uL (140-400) 249 x10^3/uL (140-400) Neutrophils (%) (Auto) 78 % (31-73) 79 % (31-73) Lymphocytes (%) (Auto) 10 % (24-48) 8 % (24-48) Monocytes (%) (Auto) 12 % (0-9) 13 % (0-9) Eosinophils (%) (Auto) 0 % (0-3) 0 % (0-3) Basophils (%) (Auto) 0 % (0-3) 0 % (0-3) Neutrophils # (Auto) 11.0 x10^3uL (1.8-7.7) 10.0 x10^3uL (1.8-7.7) Lymphocytes # (Auto) 1.4 x10^3/uL (1.0-4.8) 1.0 x10^3/uL (1.0-4.8) Monocytes # (Auto) 1.7 x10^3/uL (0.0-1.1) 1.6 x10^3/uL (0.0-1.1) Eosinophils # (Auto) 0.0 x10^3/uL (0.0-0.7) 0.0 x10^3/uL (0.0-0.7) Basophils # (Auto) 0.1 x10^3/uL (0.0-0.2) 0.0 x10^3/uL (0.0-0.2) Prothrombin Time 16.0 SEC (11.7-14.0) Prothromb Time International Ratio 1.3 (0.8-1.1) Sodium Level 139 mmol/L (136-145) 140 mmol/L (136-145) Potassium Level 3.3 mmol/L (3.5-5.1) 3.0 mmol/L (3.5-5.1) Chloride Level 97 mmol/L (98-107) 100 mmol/L (98-107) Carbon Dioxide Level 28 mmol/L (21-32) 25 mmol/L (21-32) Anion Gap 14 (6-14) 15 (6-14) Blood Urea Nitrogen 36 mg/dL (8-26) 35 mg/dL (8-26) Creatinine 1.1 mg/dL (0.7-1.3) 1.1 mg/dL (0.7-1.3) Estimated GFR (Cockcroft-Gault) 65.1 65.1 BUN/Creatinine Ratio 33 (6-20) 32 (6-20) Glucose Level 82 mg/dL (70-99) 73 mg/dL (70-99) Calcium Level 10.2 mg/dL (8.5-10.1) 9.0 mg/dL (8.5-10.1) Magnesium Level 2.2 mg/dL (1.8-2.4) Total Bilirubin 1.1 mg/dL (0.2-1.0) 0.8 mg/dL (0.2-1.0) Aspartate Amino Transf (AST/SGOT) 14 U/L (15-37) 12 U/L (15-37) Alanine Aminotransferase (ALT/SGPT) 14 U/L (16-63) 12 U/L (16-63) Alkaline Phosphatase 82 U/L (46-116) 67 U/L (46-116) Creatine Kinase 12 U/L (39-308) Creatine Kinase MB (Mass) 0.6 ng/mL (0.0-3.6) Creatine Kinase MB Relative Index % (0-4) Troponin I Quantitative 0.029 ng/mL (0.000-0.055) GB-Qej-X-Type Natriuretic Peptide 642 pg/mL (0-449) Total Protein 7.7 g/dL (6.4-8.2) 6.5 g/dL (6.4-8.2) Albumin 3.2 g/dL (3.4-5.0) 2.6 g/dL (3.4-5.0) Albumin/Globulin Ratio 0.7 (1.0-1.7) 0.7 (1.0-1.7) Lipase 43 U/L (73-393) Laboratory Tests Test 09/12/18 17:45 09/13/18 04:55 White Blood Count 14.1 x10^3/uL (4.0-11.0) 12.7 x10^3/uL (4.0-11.0) Red Blood Count 4.37 x10^6/uL (4.30-5.70) 3.99 x10^6/uL (4.30-5.70) Hemoglobin 13.9 g/dL (13.0-17.5) 12.8 g/dL (13.0-17.5) Hematocrit 41.4 % (39.0-53.0) 37.7 % (39.0-53.0) Mean Corpuscular Volume 95 fL (79-100) 94 fL (79-100) Mean Corpuscular Hemoglobin 32 pg (25-35) 32 pg (25-35) Mean Corpuscular Hemoglobin Concent 34 g/dL (31-37) 34 g/dL (31-37) Red Cell Distribution Width 14.0 % (11.5-14.5) 13.9 % (11.5-14.5) Platelet Count 296 x10^3/uL (140-400) 249 x10^3/uL (140-400) Neutrophils (%) (Auto) 78 % (31-73) 79 % (31-73) Lymphocytes (%) (Auto) 10 % (24-48) 8 % (24-48) Monocytes (%) (Auto) 12 % (0-9) 13 % (0-9) Eosinophils (%) (Auto) 0 % (0-3) 0 % (0-3) Basophils (%) (Auto) 0 % (0-3) 0 % (0-3) Neutrophils # (Auto) 11.0 x10^3uL (1.8-7.7) 10.0 x10^3uL (1.8-7.7) Lymphocytes # (Auto) 1.4 x10^3/uL (1.0-4.8) 1.0 x10^3/uL (1.0-4.8) Monocytes # (Auto) 1.7 x10^3/uL (0.0-1.1) 1.6 x10^3/uL (0.0-1.1) Eosinophils # (Auto) 0.0 x10^3/uL (0.0-0.7) 0.0 x10^3/uL (0.0-0.7) Basophils # (Auto) 0.1 x10^3/uL (0.0-0.2) 0.0 x10^3/uL (0.0-0.2) Prothrombin Time 16.0 SEC (11.7-14.0) Prothromb Time International Ratio 1.3 (0.8-1.1) Sodium Level 139 mmol/L (136-145) 140 mmol/L (136-145) Potassium Level 3.3 mmol/L (3.5-5.1) 3.0 mmol/L (3.5-5.1) Chloride Level 97 mmol/L (98-107) 100 mmol/L (98-107) Carbon Dioxide Level 28 mmol/L (21-32) 25 mmol/L (21-32) Anion Gap 14 (6-14) 15 (6-14) Blood Urea Nitrogen 36 mg/dL (8-26) 35 mg/dL (8-26) Creatinine 1.1 mg/dL (0.7-1.3) 1.1 mg/dL (0.7-1.3) Estimated GFR (Cockcroft-Gault) 65.1 65.1 BUN/Creatinine Ratio 33 (6-20) 32 (6-20) Glucose Level 82 mg/dL (70-99) 73 mg/dL (70-99) Calcium Level 10.2 mg/dL (8.5-10.1) 9.0 mg/dL (8.5-10.1) Magnesium Level 2.2 mg/dL (1.8-2.4) Total Bilirubin 1.1 mg/dL (0.2-1.0) 0.8 mg/dL (0.2-1.0) Aspartate Amino Transf (AST/SGOT) 14 U/L (15-37) 12 U/L (15-37) Alanine Aminotransferase (ALT/SGPT) 14 U/L (16-63) 12 U/L (16-63) Alkaline Phosphatase 82 U/L (46-116) 67 U/L (46-116) Creatine Kinase 12 U/L (39-308) Creatine Kinase MB (Mass) 0.6 ng/mL (0.0-3.6) Creatine Kinase MB Relative Index % (0-4) Troponin I Quantitative 0.029 ng/mL (0.000-0.055) DP-Lgv-J-Type Natriuretic Peptide 642 pg/mL (0-449) Total Protein 7.7 g/dL (6.4-8.2) 6.5 g/dL (6.4-8.2) Albumin 3.2 g/dL (3.4-5.0) 2.6 g/dL (3.4-5.0) Albumin/Globulin Ratio 0.7 (1.0-1.7) 0.7 (1.0-1.7) Lipase 43 U/L (73-393) Images Images CT scan done on admission is reviewed KUB for NG placement seen Assessment/Plan Assessment/Plan SBO COPD (pulmonary fibrosis) CAD CAF depression repeat plain films continue NG try to avoid surgery if possible given his co morbid issues will follow with you Thanks for consult SHAKEEL SOMMER MD Sep 13, 2018 10:07
[2018-09-13] MEDS: PANTOPRAZOLE IV PUSH 40 MG VIAL. IVP SCH (10:18)
[2018-09-13] MEDS: ENOXAPARIN 40 MG/0.4 ML SYRINGE. SQ SCH (10:19)
[2018-09-13] MEDS: methylPREDNISolone SOD SUCC PF 40 MG/ML VIAL. IV SCH (10:21)
[2018-09-13 10:49] VITALS: BP 135/74
[2018-09-13] MEDS: BUDESONIDE 0.5 MG/2 ML NEBU. NEB SCH ×2 (11:25→19:53)
--- NOTE | 2018-09-13 12:18 | RAD ---
2 views of the abdomen 09/13/2018 INDICATION: Evaluate small bowel obstruction COMPARISON STUDY: Abdominal radiograph September 12, 2018 Discussion: Persistent markedly dilated loops of small bowel are seen in the central abdomen with a paucity of distal bowel gas. Contrast noted within the bladder presumably from prior CT imaging. There is an enteric tube with tip extending just beyond the GE junction, side-port in the distal esophagus. This has slightly retracted in the interim. Small bilateral pleural effusions and fibrotic changes involving the lung bases are seen. No gross pneumoperitoneum is appreciated. IMPRESSION: 1.Persistent dilatation of small bowel loops in the central abdomen concerning for ongoing small bowel obstruction. 2. Slight retraction of enteric tube with tip now just beyond the expected region of the GE junction Electronically signed by: Néstor Ambrosio MD (09/13/2018 12:13 PM) [id number]
--- NOTE | 2018-09-13 13:16 | PDOC2 ---
CARDIAC CONSULT DATE OF CONSULT Date of Consult DATE: 09/13/18 TIME: 13:14 REASON FOR CONSULT Reason for Consult: SVT REFERRING PHYSICIAN Referring Physician: Dr. Garcia SOURCE Source: Chart review, Patient HISTORY OF PRESENT ILLNESS HISTORY OF PRESENT ILLNESS This is a 78 yo male who presented secondary to generalized weakness, nausea, and vomiting. CT abdomen/pelvis notable for SBO. Patient having intermittent arrhythmias, which prompted this consult. Patient has a history of PAFIB. Has been unable to take his Cardizem due to nausea/vomiting/SBO. Patient denies any chest pain, palpitations, dizziness, diaphoresis, SOA, or LE edema. PAST MEDICAL HISTORY Past Medical History Cardiovascular: AFIB, HTN, Hyperlipidemia, Valve insufficiency, coronary calcifications per CTA Pulmonary: COPD, ILD, pneumonia GI: GERD Heme/Onc: Cancer (prostate) Hepatobiliary: No pertinent hx Psych: Depression Musculoskeletal: Osteoarthritis Rheumatologic: No pertinent hx Infectious disease: No pertinent hx ENT: No pertinent hx Renal/: Prostate Ca. Endocrine: Hypothyroidism Dermatology: No pertinent hx PAST SURGICAL HISTORY Past Surgical History Appendectomy, Other (prostatectomy ) FAMILY HISTORY Family History: Other (noncontributory ) SOCIAL HISTORY Social History Smoke: Quit ALCOHOL: occasional Drugs: None Lives: with Family CURRENT MEDICATIONS CURRENT MEDICATIONS Current Medications Medications (Trade) Dose Ordered Sig/Anjana Route PRN Reason Start Time Stop Time Status Last Admin Dose Admin Famotidine (Pepcid Vial) 20 mg 1X ONCE IVP 09/12/18 17:45 09/12/18 17:46 DC 09/12/18 18:07 Ondansetron HCl (Zofran) 4 mg 1X ONCE IV 09/12/18 17:45 09/12/18 17:46 DC 09/12/18 18:07 Iohexol (Omnipaque 300 Mg/ml) 75 ml 1X ONCE IV 09/12/18 18:30 09/12/18 18:34 DC 09/12/18 18:35 Fentanyl Citrate (Fentanyl 2ml Vial) 50 mcg 1X ONCE IV 09/12/18 20:00 09/12/18 20:01 DC 09/12/18 20:21 Morphine Sulfate (Morphine Sulfate) 4 mg PRN Q2HR PRN IV PAIN 09/12/18 20:30 09/13/18 20:29 09/13/18 10:20 Metronidazole 100 ml @ 100 mls/hr Q8HRS IV 09/12/18 22:00 09/13/18 05:39 Ciprofloxacin/ Dextrose 200 ml @ 200 mls/hr 1X ONCE IV 09/12/18 20:30 09/12/18 21:29 DC 09/12/18 22:51 Sodium Chloride 1,000 ml @ 75 mls/hr 1X ONCE IV 09/12/18 20:30 09/13/18 09:49 DC 09/12/18 22:51 Budesonide (Pulmicort) 0.5 mg RTBID NEB 09/13/18 09:30 09/13/18 11:25 Albuterol/ Ipratropium (Duoneb) 3 ml RTQID NEB 09/13/18 09:30 09/13/18 09:30 Methylprednisolone Sodium Succinate (SOLU-Medrol 40MG VIAL) 20 mg DAILY IV 09/13/18 10:00 09/13/18 10:21 Pantoprazole Sodium (PROTONIX VIAL for IV PUSH) 40 mg DAILYAC IVP 09/13/18 10:00 09/13/18 10:18 Enoxaparin Sodium (Lovenox 40mg Syringe) 40 mg Q24H SQ 09/13/18 10:00 09/13/18 10:19 ALLERGIES ALLERGIES: Coded Allergies: No Known Drug Allergies (Unverified , 10/25/14) ROS Review of System 14 point ROS conducted with pertinent positives noted above in HPI. PHYSICAL EXAM PHYSICAL EXAM General: Alert, Oriented X3, Cooperative, No acute distress HEENT: Atraumatic, Mucous membr. moist/pink, NG intact Lungs: Other (CTA) Heart: Other (atrial flutter) Abdomen: Soft, No tenderness Extremities: No edema Skin: No breakdown, No significant lesion Neuro: Normal speech, Sensation intact Psych/Mental Status: Mental status NL, Mood NL MUSCULOSKELETAL: Osteoarthritic changes both hands VITALS VITALS Vital Signs Date Time Temp Pulse Resp B/P (MAP) Pulse Ox O2 Delivery O2 Flow Rate FiO2 09/13/18 11:27 93 Room Air 09/13/18 10:50 14 09/13/18 10:49 95.8 86 135/74 (94) 95.8 LABS Lab: Laboratory Tests Test 09/12/18 17:45 09/13/18 04:55 White Blood Count 14.1 x10^3/uL (4.0-11.0) 12.7 x10^3/uL (4.0-11.0) Red Blood Count 4.37 x10^6/uL (4.30-5.70) 3.99 x10^6/uL (4.30-5.70) Hemoglobin 13.9 g/dL (13.0-17.5) 12.8 g/dL (13.0-17.5) Hematocrit 41.4 % (39.0-53.0) 37.7 % (39.0-53.0) Mean Corpuscular Volume 95 fL (79-100) 94 fL (79-100) Mean Corpuscular Hemoglobin 32 pg (25-35) 32 pg (25-35) Mean Corpuscular Hemoglobin Concent 34 g/dL (31-37) 34 g/dL (31-37) Red Cell Distribution Width 14.0 % (11.5-14.5) 13.9 % (11.5-14.5) Platelet Count 296 x10^3/uL (140-400) 249 x10^3/uL (140-400) Neutrophils (%) (Auto) 78 % (31-73) 79 % (31-73) Lymphocytes (%) (Auto) 10 % (24-48) 8 % (24-48) Monocytes (%) (Auto) 12 % (0-9) 13 % (0-9) Eosinophils (%) (Auto) 0 % (0-3) 0 % (0-3) Basophils (%) (Auto) 0 % (0-3) 0 % (0-3) Neutrophils # (Auto) 11.0 x10^3uL (1.8-7.7) 10.0 x10^3uL (1.8-7.7) Lymphocytes # (Auto) 1.4 x10^3/uL (1.0-4.8) 1.0 x10^3/uL (1.0-4.8) Monocytes # (Auto) 1.7 x10^3/uL (0.0-1.1) 1.6 x10^3/uL (0.0-1.1) Eosinophils # (Auto) 0.0 x10^3/uL (0.0-0.7) 0.0 x10^3/uL (0.0-0.7) Basophils # (Auto) 0.1 x10^3/uL (0.0-0.2) 0.0 x10^3/uL (0.0-0.2) Prothrombin Time 16.0 SEC (11.7-14.0) Prothromb Time International Ratio 1.3 (0.8-1.1) Sodium Level 139 mmol/L (136-145) 140 mmol/L (136-145) Potassium Level 3.3 mmol/L (3.5-5.1) 3.0 mmol/L (3.5-5.1) Chloride Level 97 mmol/L (98-107) 100 mmol/L (98-107) Carbon Dioxide Level 28 mmol/L (21-32) 25 mmol/L (21-32) Anion Gap 14 (6-14) 15 (6-14) Blood Urea Nitrogen 36 mg/dL (8-26) 35 mg/dL (8-26) Creatinine 1.1 mg/dL (0.7-1.3) 1.1 mg/dL (0.7-1.3) Estimated GFR (Cockcroft-Gault) 65.1 65.1 BUN/Creatinine Ratio 33 (6-20) 32 (6-20) Glucose Level 82 mg/dL (70-99) 73 mg/dL (70-99) Calcium Level 10.2 mg/dL (8.5-10.1) 9.0 mg/dL (8.5-10.1) Magnesium Level 2.2 mg/dL (1.8-2.4) Total Bilirubin 1.1 mg/dL (0.2-1.0) 0.8 mg/dL (0.2-1.0) Aspartate Amino Transf (AST/SGOT) 14 U/L (15-37) 12 U/L (15-37) Alanine Aminotransferase (ALT/SGPT) 14 U/L (16-63) 12 U/L (16-63) Alkaline Phosphatase 82 U/L (46-116) 67 U/L (46-116) Creatine Kinase 12 U/L (39-308) Creatine Kinase MB (Mass) 0.6 ng/mL (0.0-3.6) Creatine Kinase MB Relative Index % (0-4) Troponin I Quantitative 0.029 ng/mL (0.000-0.055) LA-Wco-I-Type Natriuretic Peptide 642 pg/mL (0-449) Total Protein 7.7 g/dL (6.4-8.2) 6.5 g/dL (6.4-8.2) Albumin 3.2 g/dL (3.4-5.0) 2.6 g/dL (3.4-5.0) Albumin/Globulin Ratio 0.7 (1.0-1.7) 0.7 (1.0-1.7) Lipase 43 U/L (73-393) ECHOCARDIOGRAM ECHOCARDIOGRAM <Conclusion> The left ventricular systolic function is normal. The Ejection Fraction is 55-60%. There is normal LV segmental wall motion. The left atrium is mild to moderately dilated. Trace mitral regurgitation. Trace tricuspid regurgitation. There is no evidence of significant pericardial effusion. DATE: 08/26/18 1335 ASSESSMENT/PLAN ASSESSMENT/PLAN 1. SBO; NG for decompression 2. PAFIB; maintaining SR, but having intermittent PAFIB. Oral Cardizem held secondary to SBO 3. Chronic diastolic heart failure: WM nml and EF 55-60%. Compensated clinically 4. Hypertension: controlled 5. Hyperlipidemia 6. COPD/ILD 7. Hypothyroidism: On levo thyroxine. TSH 12.631 (08/26/2018) as per PCP 8. Hypokalemia Recommendations Replace K Check Mg- replace as warranted Metoprolol IV q6 while NPO ASA for stroke prophylaxis Lasix as warranted Supportive care from a CV standpoint. JOSE HIGHTOWER APRN Sep 13, 2018 13:16
[2018-09-13] MEDS: METOPROLOL TARTRATE 5 MG/5 ML VIAL. IVP SCH ×2 (14:14→17:51)
[2018-09-13] MEDS: POTASSIUM CHLORIDE 10MEQ 100 ML IV SCH ×4 (14:15→17:10)
--- NOTE | 2018-09-13 14:55 | EKG ---
[facility] [address] [place] [id number] Test Date: 2018-09-12 Test Time: 17:57:21 Pat Name: JOHN ROBBINS Department: Room: 504 1 Gender: M [employer] Equipment Sales Engineer: : 1940 Requested By: SANJUANA OWUSU Order Number: [id number] Reading MD: Qamar Parr MD Measurements Intervals [place] Rate: 122 P: 39 UT: 126 QRS: -36 QRSD: 94 T: 88 QT: 332 QTc: 474 Interpretive Statements SINUS TACHYCARDIA VENTRICULAR PREMATURE COMPLEX(ES) ATRIAL PREMATURE COMPLEX(ES) ABNORMAL LEFT AXIS DEVIATION LAFB Electronically Signed On 09-16-2018 10:27:44 PRESIDING JUDGE by Qamar Parr MD
[2018-09-13 15:00] VITALS: BP 115/82
--- NOTE | 2018-09-13 15:32 | NUR ---
SW following pt for anticipated dc needs. Chart reviewed. Pt lives at home with spouse and on room air. PT/OT pending. SW will await for PT/OT evaluation to assess dc needs. Will continue to follow.
--- NOTE | 2018-09-13 16:00 | PDOC ---
PULMONARY PROGRESS NOTES Vitals Vital Signs Date Time Temp Pulse Resp B/P (MAP) Pulse Ox O2 Delivery O2 Flow Rate FiO2 09/13/18 15:00 97.1 93 16 115/82 (93) 92 Room Air 97.1 General: Alert HEENT: Other Lungs: Crackles Cardiovascular: S1, S2 Abdomen: Soft, Non-tender Extremities: Other Labs Laboratory Tests Test 09/12/18 17:45 09/13/18 04:55 White Blood Count 14.1 x10^3/uL (4.0-11.0) 12.7 x10^3/uL (4.0-11.0) Red Blood Count 4.37 x10^6/uL (4.30-5.70) 3.99 x10^6/uL (4.30-5.70) Hemoglobin 13.9 g/dL (13.0-17.5) 12.8 g/dL (13.0-17.5) Hematocrit 41.4 % (39.0-53.0) 37.7 % (39.0-53.0) Mean Corpuscular Volume 95 fL (79-100) 94 fL (79-100) Mean Corpuscular Hemoglobin 32 pg (25-35) 32 pg (25-35) Mean Corpuscular Hemoglobin Concent 34 g/dL (31-37) 34 g/dL (31-37) Red Cell Distribution Width 14.0 % (11.5-14.5) 13.9 % (11.5-14.5) Platelet Count 296 x10^3/uL (140-400) 249 x10^3/uL (140-400) Neutrophils (%) (Auto) 78 % (31-73) 79 % (31-73) Lymphocytes (%) (Auto) 10 % (24-48) 8 % (24-48) Monocytes (%) (Auto) 12 % (0-9) 13 % (0-9) Eosinophils (%) (Auto) 0 % (0-3) 0 % (0-3) Basophils (%) (Auto) 0 % (0-3) 0 % (0-3) Neutrophils # (Auto) 11.0 x10^3uL (1.8-7.7) 10.0 x10^3uL (1.8-7.7) Lymphocytes # (Auto) 1.4 x10^3/uL (1.0-4.8) 1.0 x10^3/uL (1.0-4.8) Monocytes # (Auto) 1.7 x10^3/uL (0.0-1.1) 1.6 x10^3/uL (0.0-1.1) Eosinophils # (Auto) 0.0 x10^3/uL (0.0-0.7) 0.0 x10^3/uL (0.0-0.7) Basophils # (Auto) 0.1 x10^3/uL (0.0-0.2) 0.0 x10^3/uL (0.0-0.2) Prothrombin Time 16.0 SEC (11.7-14.0) Prothromb Time International Ratio 1.3 (0.8-1.1) Sodium Level 139 mmol/L (136-145) 140 mmol/L (136-145) Potassium Level 3.3 mmol/L (3.5-5.1) 3.0 mmol/L (3.5-5.1) Chloride Level 97 mmol/L (98-107) 100 mmol/L (98-107) Carbon Dioxide Level 28 mmol/L (21-32) 25 mmol/L (21-32) Anion Gap 14 (6-14) 15 (6-14) Blood Urea Nitrogen 36 mg/dL (8-26) 35 mg/dL (8-26) Creatinine 1.1 mg/dL (0.7-1.3) 1.1 mg/dL (0.7-1.3) Estimated GFR (Cockcroft-Gault) 65.1 65.1 BUN/Creatinine Ratio 33 (6-20) 32 (6-20) Glucose Level 82 mg/dL (70-99) 73 mg/dL (70-99) Calcium Level 10.2 mg/dL (8.5-10.1) 9.0 mg/dL (8.5-10.1) Magnesium Level 2.2 mg/dL (1.8-2.4) 2.1 mg/dL (1.8-2.4) Total Bilirubin 1.1 mg/dL (0.2-1.0) 0.8 mg/dL (0.2-1.0) Aspartate Amino Transf (AST/SGOT) 14 U/L (15-37) 12 U/L (15-37) Alanine Aminotransferase (ALT/SGPT) 14 U/L (16-63) 12 U/L (16-63) Alkaline Phosphatase 82 U/L (46-116) 67 U/L (46-116) Creatine Kinase 12 U/L (39-308) Creatine Kinase MB (Mass) 0.6 ng/mL (0.0-3.6) Creatine Kinase MB Relative Index % (0-4) Troponin I Quantitative 0.029 ng/mL (0.000-0.055) HI-Xun-W-Type Natriuretic Peptide 642 pg/mL (0-449) Total Protein 7.7 g/dL (6.4-8.2) 6.5 g/dL (6.4-8.2) Albumin 3.2 g/dL (3.4-5.0) 2.6 g/dL (3.4-5.0) Albumin/Globulin Ratio 0.7 (1.0-1.7) 0.7 (1.0-1.7) Lipase 43 U/L (73-393) Laboratory Tests Test 09/12/18 17:45 09/13/18 04:55 White Blood Count 14.1 x10^3/uL (4.0-11.0) 12.7 x10^3/uL (4.0-11.0) Red Blood Count 4.37 x10^6/uL (4.30-5.70) 3.99 x10^6/uL (4.30-5.70) Hemoglobin 13.9 g/dL (13.0-17.5) 12.8 g/dL (13.0-17.5) Hematocrit 41.4 % (39.0-53.0) 37.7 % (39.0-53.0) Mean Corpuscular Volume 95 fL (79-100) 94 fL (79-100) Mean Corpuscular Hemoglobin 32 pg (25-35) 32 pg (25-35) Mean Corpuscular Hemoglobin Concent 34 g/dL (31-37) 34 g/dL (31-37) Red Cell Distribution Width 14.0 % (11.5-14.5) 13.9 % (11.5-14.5) Platelet Count 296 x10^3/uL (140-400) 249 x10^3/uL (140-400) Neutrophils (%) (Auto) 78 % (31-73) 79 % (31-73) Lymphocytes (%) (Auto) 10 % (24-48) 8 % (24-48) Monocytes (%) (Auto) 12 % (0-9) 13 % (0-9) Eosinophils (%) (Auto) 0 % (0-3) 0 % (0-3) Basophils (%) (Auto) 0 % (0-3) 0 % (0-3) Neutrophils # (Auto) 11.0 x10^3uL (1.8-7.7) 10.0 x10^3uL (1.8-7.7) Lymphocytes # (Auto) 1.4 x10^3/uL (1.0-4.8) 1.0 x10^3/uL (1.0-4.8) Monocytes # (Auto) 1.7 x10^3/uL (0.0-1.1) 1.6 x10^3/uL (0.0-1.1) Eosinophils # (Auto) 0.0 x10^3/uL (0.0-0.7) 0.0 x10^3/uL (0.0-0.7) Basophils # (Auto) 0.1 x10^3/uL (0.0-0.2) 0.0 x10^3/uL (0.0-0.2) Prothrombin Time 16.0 SEC (11.7-14.0) Prothromb Time International Ratio 1.3 (0.8-1.1) Sodium Level 139 mmol/L (136-145) 140 mmol/L (136-145) Potassium Level 3.3 mmol/L (3.5-5.1) 3.0 mmol/L (3.5-5.1) Chloride Level 97 mmol/L (98-107) 100 mmol/L (98-107) Carbon Dioxide Level 28 mmol/L (21-32) 25 mmol/L (21-32) Anion Gap 14 (6-14) 15 (6-14) Blood Urea Nitrogen 36 mg/dL (8-26) 35 mg/dL (8-26) Creatinine 1.1 mg/dL (0.7-1.3) 1.1 mg/dL (0.7-1.3) Estimated GFR (Cockcroft-Gault) 65.1 65.1 BUN/Creatinine Ratio 33 (6-20) 32 (6-20) Glucose Level 82 mg/dL (70-99) 73 mg/dL (70-99) Calcium Level 10.2 mg/dL (8.5-10.1) 9.0 mg/dL (8.5-10.1) Magnesium Level 2.2 mg/dL (1.8-2.4) 2.1 mg/dL (1.8-2.4) Total Bilirubin 1.1 mg/dL (0.2-1.0) 0.8 mg/dL (0.2-1.0) Aspartate Amino Transf (AST/SGOT) 14 U/L (15-37) 12 U/L (15-37) Alanine Aminotransferase (ALT/SGPT) 14 U/L (16-63) 12 U/L (16-63) Alkaline Phosphatase 82 U/L (46-116) 67 U/L (46-116) Creatine Kinase 12 U/L (39-308) Creatine Kinase MB (Mass) 0.6 ng/mL (0.0-3.6) Creatine Kinase MB Relative Index % (0-4) Troponin I Quantitative 0.029 ng/mL (0.000-0.055) WV-Cit-G-Type Natriuretic Peptide 642 pg/mL (0-449) Total Protein 7.7 g/dL (6.4-8.2) 6.5 g/dL (6.4-8.2) Albumin 3.2 g/dL (3.4-5.0) 2.6 g/dL (3.4-5.0) Albumin/Globulin Ratio 0.7 (1.0-1.7) 0.7 (1.0-1.7) Lipase 43 U/L (73-393) Medications Active Scripts Medications Dose Route/Sig Max Daily Dose Days Date Category Magnesium Chloride 70 Mg Tablet.dr 64 Mg PO DAILY 08/30/18 Rx Synthroid (Levothyroxine Sodium) 88 Mcg Tablet 88 Mcg PO DAILY06 08/30/18 Rx Prednisone 20 Mg Tablet 20 Mg PO DAILY 19 Rx Budesonide 0.5 Mg/2 Ml Ampul.neb 0.5 Mg NEB RTBID 30 08/30/18 Rx Diltiazem 24HR Cd (Diltiazem Hcl) 180 Mg Cap.er.24h 180 Mg PO DAILY 90 08/30/18 Rx Hydrocodone-Apap 7.5-325 (Hydrocodone Bit/Acetaminophen) 1 Tab Tablet 1 Tab PO PRN Q6HRS PRN 08/26/18 Reported Prednisolone Sodium Phosphate (Prednisolone Sod Phosphate) 15 Mg/5 Ml Solution 15 Mg PO DAILY 08/26/18 Reported Omeprazole 40 Mg Capsule. 40 Mg PO DAILY 08/26/18 Reported Cartia Xt (Diltiazem Hcl) 120 Mg Cap.er.24h 120 Mg PO DAILY 08/26/18 Reported Prednisone (Prednisone) 10 Mg Tablet 40 Mg PO DAILY 30 07/16/18 Rx Klor-Con 10 (Potassium Chloride) 10 Meq Tablet.er 1 Tab PO DAILY 07/16/18 Rx Lasix (Furosemide) 40 Mg Tablet 1 Tab PO DAILY 07/16/18 Rx Aspirin Ec (Aspirin) 81 Mg Tablet. 81 Mg PO DAILYWBKFT 30 07/16/18 Rx Duoneb 0.5-3(2.5) Mg/3 Ml (Albuterol/Ipratropium) 3 Ml Ampul.neb 3 Ml NEB RTQID 30 07/01/18 Rx Diltiazem 24HR Cd (Diltiazem Hcl) 120 Mg Cap.er.24h 120 Mg PO DAILY 30 07/01/18 Rx Wellbutrin Xl (Bupropion Hcl) 150 Mg Tab.er.24h 1 Tab PO DAILY 06/30/18 Reported Omeprazole 40 Mg Capsule. 1 Cap PO 10/25/14 Reported Impression . full note dictated pulmonary fibrosis sbo agree with current rx thanks JON EDWARDS MD Sep 13, 2018 16:00
--- NOTE | 2018-09-13 16:29 | PDOC ---
Provider Note Provider Note SURG plain films show persistent SBO will get SBFT in the AM continue NG for now SHAKEEL SOMMER MD Sep 13, 2018 16:29
--- NOTE | 2018-09-13 16:59 | HP ---
ADMIT DATE: 09/12/2018 CHIEF COMPLAINT: Abdominal pain. HISTORY OF PRESENT ILLNESS AND HOSPITAL COURSE: This patient is a 78-year-old male who has had recent hospitalizations due to respiratory failure and tachycardia and has multiple chronic medical issues, came in this time complaining of generalized weakness, severe nausea, vomiting and abdominal pain. This has been going on for almost 3 days prior to admission. The patient was unable to take p.o. medications. Upon evaluation in the ER, he was found to have a small bowel obstruction in the lower pelvis. The patient has risk factors of previous prostate cancer with radical prostatectomy and radiation as well as a previous appendectomy. Due to severity of illness, the patient was admitted and underwent NG tube decompression. PAST MEDICAL HISTORY: Significant for: 1. Pulmonary fibrosis. 2. COPD. 3. SVT. 4. Hypertension. 5. Osteoarthritis. 6. Gastroesophageal reflux disease, status post dilatation of stricture. 7. Hypothyroidism. 8. BPH. 9. Kqzdn-gb-hsajgqy diastolic congestive heart failure. 10. Severe protein malnutrition. 11. History of prostate cancer. 12. History of hepatitis C. 13. Major depression. FAMILY HISTORY: Significant for a father who with bone cancer, a sister who had lupus, mother who of unknown causes. SOCIAL HISTORY: The patient is a former smoker, smoking greater than 10 years, quit approximately 10 years ago. The patient usually drinks 2-3 beers per day. The patient lives alone with good family support. PAST SURGICAL HISTORY: Significant for tonsillectomy, appendectomy, and prostatectomy. ALLERGIES: The patient exhibits no drug allergies. REVIEW OF SYSTEMS: The patient was doing well until recent episode of abdominal pain, distention, nausea, vomiting. The patient has had no shortness of breath prior to this admission other than chronic shortness of breath. The patient does use home O2. PHYSICAL EXAMINATION: GENERAL: This is a thin, cachectic appearing white male in no apparent distress on my exam with an NG tube in place. HEENT: Otherwise benign. NECK: Supple. CARDIAC: Regular rate and rhythm. LUNGS: Reveal coarse breath sounds with minimal wheezing and significant crackles in the posterior lung solis due to fibrosis. ABDOMEN: Soft with negative bowel sounds. Mild tenderness. No rebound or guarding. EXTREMITIES: Reveal 2+ pulses without edema. NEUROLOGIC: Showed no unilateral findings. ASSESSMENT: 1. Small bowel obstruction. 2. Please see past medical history. PLAN: To proceed with Surgery evaluation. NG tube decompression. Consult Pulmonary and Cardiology due to chronic medical issues and assistance with medication management. LOURDES POLLOCK MD DR: ABRAHAM/ralph JOB#: [id number] / [id number]
[2018-09-13] MEDS: BENZOCAINE/MENTHOL LOZENGE. PO PRN (17:10)
[2018-09-13] MEDS: PHENOL ORAL SPRAY 177ML BOTTLE. PO PRN (17:10)
[2018-09-13 19:00] VITALS: BP 126/82
--- NOTE | 2018-09-13 21:04 | CONS ---
DATE OF CONSULTATION: 09/13/2018 ATTENDING PHYSICIAN: Yousuf Garcia M.D. REASON FOR CONSULTATION: The patient is seen in Pulmonary consultation at the request of Dr. Garcia for history of pulmonary fibrosis and chronic respiratory failure. HISTORY OF PRESENT ILLNESS: The patient is a 78-year-old well known to me from previous hospitalizations. He comes in with chronic respiratory failure and pulmonary fibrosis. He follows me in the office. He was having some difficulty with mainly nausea, vomiting and generalized weakness for the past 4 days. He denied any diarrhea. He was admitted and evaluated for possible small-bowel obstruction by the surgeon. They are going to continue with conservative treatment. I was asked to see him in consultation. The patient was likewise seen by the Cardiology Service for his chronic AFib. He has had previous echo revealed ejection fraction 55%-80%. PAST MEDICAL HISTORY: 1. Chronic respiratory failure, pulmonary fibrosis. 2. Chronic AFib. 3. COPD. 4. Prostate cancer. 5. Hepatitis C. PAST SURGICAL HISTORY: Previous prostate surgery. ALLERGIES: No known drug allergies. REVIEW OF SYSTEMS: As indicated above, otherwise, a 10-point system was reviewed and negative. CONSTITUTIONAL: No documented fever. EYES: No change in visual acuity. HEENT: No nasal congestion or sore throat. PULMONARY: As indicated above. CARDIOVASCULAR: No chest pain. No pressure. GASTROINTESTINAL: As indicated above. GENITOURINARY: No dysuria or frequency. MUSCULOSKELETAL: No localized muscle aches or joint pain. SKIN: No new skin rashes. NEUROLOGICAL: No headaches, diplopia or blurred vision. CURRENT MEDICATION: List was reviewed. HOME MEDICATIONS: List was likewise reviewed. PHYSICAL EXAMINATION: GENERAL: The patient appeared to be in no respiratory distress. VITAL SIGNS: Stable. O2 saturation was greater than 92%. HEENT: Eyes, the sclerae were nonicteric. NECK: Jugular venous distention was not elevated. No lymphadenopathy. CHEST: Full expansion. LUNGS: Usual Velcro type rales in the bases. No wheezes. CARDIOVASCULAR: Regular rate and rhythm with S1 and S2. No S3. ABDOMEN: Soft. Somewhat diminished bowel sounds. EXTREMITIES: No clubbing, cyanosis or edema. NEUROLOGICAL: The patient was awake, alert and following commands. A detailed neuro exam was not performed. RADIOLOGICAL DATA: Chest x-ray was reviewed in comparison to previous x-rays. I do not appreciate any significant change. A CT abdomen and pelvis revealed evidence of small-bowel obstruction. There was a bowel loops distal to this level that showed wall thickening. IMPRESSION: 1. Chronic respiratory failure. 2. Pulmonary fibrosis. 3. Small-bowel obstruction. 4. Other comorbidities as indicated above. PLAN: 1. Respiratory status appears to be compensated. We will continue current oxygen supplementation. 2. Obtain records from my office for review. 3. Continue home medications. 4. Follow Surgery input. I do appreciate the privilege in sharing in the patient's care. JON EDWARDS MD DR: MOSHE/ralph JOB#: [id number] / [id number]
[2018-09-13 23:00] VITALS: BP 132/78
[2018-09-14 02:57] LABS: BILIRUBIN,URINE SMALL (NEG); CLARITY,URINE CLEAR; COLOR,URINE AMBER; PH,URINE 5.5; PROTEIN,URINE 30 mg/dL (NEG-TRACE)
[2018-09-14 02:58] LABS: BACTERIA,URINE 0 /HPF (0-FEW); HYALINE CASTS, URINE OCCASIONAL /HPF; NITRITE,URINE NEGATIVE (NEG); RBC,URINE OCC /HPF (0-2); UROBILINOGEN,URINE 0.2 mg/dL (0.2 mg/dL); WBC,URINE OCC /HPF (0-4)
[2018-09-14 03:00] VITALS: BP 128/75
[2018-09-14 03:12] LABS: AMPHETAMINE/METHAMPHETAMINE NEG (NEG); BARBITURATES NEG (NEG); BENZODIAZEPINES NEG (NEG); CANNABINOIDS NEG (NEG); COCAINE NEG (NEG); METHADONE NEG (NEG); OPIATES POS (NEG); PHENCYCLIDINE NEG (NEG)
[2018-09-14] MEDS: PANTOPRAZOLE IV PUSH 40 MG VIAL. IVP SCH (06:27)
[2018-09-14] MEDS: METOPROLOL TARTRATE 5 MG/5 ML VIAL. IVP SCH ×4 (06:27→19:00)
[2018-09-14] MEDS: BENZOCAINE/MENTHOL LOZENGE. PO PRN ×2 (06:35→13:46)
[2018-09-14] MEDS: MORPHINE SULFATE 4 MG/ML VIAL. IV PRN ×5 (06:37→21:51)
[2018-09-14 07:00] VITALS: BP 128/71
[2018-09-14] MEDS: IPRATRPIUM/ALBUTEROL 0.5/2.5MG 3 ML NEBU. NEB SCH ×4 (08:00→21:34)
[2018-09-14] MEDS ORDERED: IOHEXOL 300 MG/ML 100ML VIAL. PO ONE (08:00)
[2018-09-14] MEDS: BUDESONIDE 0.5 MG/2 ML NEBU. NEB SCH ×2 (08:00→21:34)
[2018-09-14] MEDS ORDERED: BARIUM SULFATE 340 GM SUSPENSION. PO ONE (08:00)
[2018-09-14] MEDS ORDERED: CONTRAST GIVEN. MC PRN (08:00)
[2018-09-14] MEDS: POTASSIUM CHLORIDE 10MEQ 100 ML IV SCH ×4 (09:00→12:00)
[2018-09-14] MEDS: methylPREDNISolone SOD SUCC PF 40 MG/ML VIAL. IV SCH (09:00)
[2018-09-14] MEDS: ASPIRIN RECTAL 300 MG SUPP. PR SCH (09:00)
--- NOTE | 2018-09-14 09:01 | PDOC ---
PULMONARY PROGRESS NOTES Vitals Vital Signs Date Time Temp Pulse Resp B/P (MAP) Pulse Ox O2 Delivery O2 Flow Rate FiO2 09/14/18 07:30 Room Air 09/14/18 07:00 97.4 69 18 128/71 (90) 90 97.4 General: Alert HEENT: Other Lungs: Crackles Cardiovascular: S1, S2 Abdomen: Soft, Non-tender Extremities: Other Labs Laboratory Tests Test 09/12/18 17:45 09/13/18 04:55 09/13/18 22:30 White Blood Count 14.1 x10^3/uL (4.0-11.0) 12.7 x10^3/uL (4.0-11.0) Red Blood Count 4.37 x10^6/uL (4.30-5.70) 3.99 x10^6/uL (4.30-5.70) Hemoglobin 13.9 g/dL (13.0-17.5) 12.8 g/dL (13.0-17.5) Hematocrit 41.4 % (39.0-53.0) 37.7 % (39.0-53.0) Mean Corpuscular Volume 95 fL (79-100) 94 fL (79-100) Mean Corpuscular Hemoglobin 32 pg (25-35) 32 pg (25-35) Mean Corpuscular Hemoglobin Concent 34 g/dL (31-37) 34 g/dL (31-37) Red Cell Distribution Width 14.0 % (11.5-14.5) 13.9 % (11.5-14.5) Platelet Count 296 x10^3/uL (140-400) 249 x10^3/uL (140-400) Neutrophils (%) (Auto) 78 % (31-73) 79 % (31-73) Lymphocytes (%) (Auto) 10 % (24-48) 8 % (24-48) Monocytes (%) (Auto) 12 % (0-9) 13 % (0-9) Eosinophils (%) (Auto) 0 % (0-3) 0 % (0-3) Basophils (%) (Auto) 0 % (0-3) 0 % (0-3) Neutrophils # (Auto) 11.0 x10^3uL (1.8-7.7) 10.0 x10^3uL (1.8-7.7) Lymphocytes # (Auto) 1.4 x10^3/uL (1.0-4.8) 1.0 x10^3/uL (1.0-4.8) Monocytes # (Auto) 1.7 x10^3/uL (0.0-1.1) 1.6 x10^3/uL (0.0-1.1) Eosinophils # (Auto) 0.0 x10^3/uL (0.0-0.7) 0.0 x10^3/uL (0.0-0.7) Basophils # (Auto) 0.1 x10^3/uL (0.0-0.2) 0.0 x10^3/uL (0.0-0.2) Prothrombin Time 16.0 SEC (11.7-14.0) Prothromb Time International Ratio 1.3 (0.8-1.1) Sodium Level 139 mmol/L (136-145) 140 mmol/L (136-145) Potassium Level 3.3 mmol/L (3.5-5.1) 3.0 mmol/L (3.5-5.1) Chloride Level 97 mmol/L (98-107) 100 mmol/L (98-107) Carbon Dioxide Level 28 mmol/L (21-32) 25 mmol/L (21-32) Anion Gap 14 (6-14) 15 (6-14) Blood Urea Nitrogen 36 mg/dL (8-26) 35 mg/dL (8-26) Creatinine 1.1 mg/dL (0.7-1.3) 1.1 mg/dL (0.7-1.3) Estimated GFR (Cockcroft-Gault) 65.1 65.1 BUN/Creatinine Ratio 33 (6-20) 32 (6-20) Glucose Level 82 mg/dL (70-99) 73 mg/dL (70-99) Calcium Level 10.2 mg/dL (8.5-10.1) 9.0 mg/dL (8.5-10.1) Magnesium Level 2.2 mg/dL (1.8-2.4) 2.1 mg/dL (1.8-2.4) Total Bilirubin 1.1 mg/dL (0.2-1.0) 0.8 mg/dL (0.2-1.0) Aspartate Amino Transf (AST/SGOT) 14 U/L (15-37) 12 U/L (15-37) Alanine Aminotransferase (ALT/SGPT) 14 U/L (16-63) 12 U/L (16-63) Alkaline Phosphatase 82 U/L (46-116) 67 U/L (46-116) Creatine Kinase 12 U/L (39-308) Creatine Kinase MB (Mass) 0.6 ng/mL (0.0-3.6) Creatine Kinase MB Relative Index % (0-4) Troponin I Quantitative 0.029 ng/mL (0.000-0.055) KH-Tne-U-Type Natriuretic Peptide 642 pg/mL (0-449) Total Protein 7.7 g/dL (6.4-8.2) 6.5 g/dL (6.4-8.2) Albumin 3.2 g/dL (3.4-5.0) 2.6 g/dL (3.4-5.0) Albumin/Globulin Ratio 0.7 (1.0-1.7) 0.7 (1.0-1.7) Lipase 43 U/L (73-393) Urine Collection Type Unknown Urine Color Frances Urine Clarity Clear Urine pH 5.5 Urine Specific [place] >=1.030 Urine Protein 30 mg/dL (NEG-TRACE) Urine Glucose (UA) Negative mg/dL (NEG) Urine Ketones (Stick) 15 mg/dL (NEG) Urine Blood Negative (NEG) Urine Nitrite Negative (NEG) Urine Bilirubin Small (NEG) Urine Urobilinogen Dipstick 0.2 mg/dL (0.2 mg/dL) Urine Leukocyte Esterase Negative (NEG) Urine RBC Occ /HPF (0-2) Urine WBC Occ /HPF (0-4) Urine Bacteria 0 /HPF (0-FEW) Urine Hyaline Casts Occasional /HPF Urine Opiates Screen Pos (NEG) Urine Methadone Screen Neg (NEG) Urine Barbiturates Neg (NEG) Urine Phencyclidine Screen Neg (NEG) Urine Amphetamine/Methamphetamine Neg (NEG) Urine Benzodiazepines Screen Neg (NEG) Urine Cocaine Screen Neg (NEG) Urine Cannabinoids Screen Neg (NEG) Urine Ethyl Alcohol Neg (NEG) Laboratory Tests Test 09/13/18 22:30 Urine Collection Type Unknown Urine Color Frances Urine Clarity Clear Urine pH 5.5 Urine Specific [place] >=1.030 Urine Protein 30 mg/dL (NEG-TRACE) Urine Glucose (UA) Negative mg/dL (NEG) Urine Ketones (Stick) 15 mg/dL (NEG) Urine Blood Negative (NEG) Urine Nitrite Negative (NEG) Urine Bilirubin Small (NEG) Urine Urobilinogen Dipstick 0.2 mg/dL (0.2 mg/dL) Urine Leukocyte Esterase Negative (NEG) Urine RBC Occ /HPF (0-2) Urine WBC Occ /HPF (0-4) Urine Bacteria 0 /HPF (0-FEW) Urine Hyaline Casts Occasional /HPF Urine Opiates Screen Pos (NEG) Urine Methadone Screen Neg (NEG) Urine Barbiturates Neg (NEG) Urine Phencyclidine Screen Neg (NEG) Urine Amphetamine/Methamphetamine Neg (NEG) Urine Benzodiazepines Screen Neg (NEG) Urine Cocaine Screen Neg (NEG) Urine Cannabinoids Screen Neg (NEG) Urine Ethyl Alcohol Neg (NEG) Medications Active Scripts Medications Dose Route/Sig Max Daily Dose Days Date Category Magnesium Chloride 70 Mg Tablet.dr 64 Mg PO DAILY 30 08/30/18 Rx Synthroid (Levothyroxine Sodium) 88 Mcg Tablet 88 Mcg PO DAILY06 30 08/30/18 Rx Prednisone 20 Mg Tablet 20 Mg PO DAILY 30 08/30/18 Rx Budesonide 0.5 Mg/2 Ml Ampul.neb 0.5 Mg NEB RTBID 30 08/30/18 Rx Diltiazem 24HR Cd (Diltiazem Hcl) 180 Mg Cap.er.24h 180 Mg PO DAILY 90 08/30/18 Rx Hydrocodone-Apap 7.5-325 (Hydrocodone Bit/Acetaminophen) 1 Tab Tablet 1 Tab PO PRN Q6HRS PRN 08/26/18 Reported Prednisolone Sodium Phosphate (Prednisolone Sod Phosphate) 15 Mg/5 Ml Solution 15 Mg PO DAILY 08/26/18 Reported Omeprazole 40 Mg Capsule.dr 40 Mg PO DAILY 08/26/18 Reported Cartia Xt (Diltiazem Hcl) 120 Mg Cap.er.24h 120 Mg PO DAILY 08/26/18 Reported Prednisone (Prednisone) 10 Mg Tablet 40 Mg PO DAILY 30 07/16/18 Rx Klor-Con 10 (Potassium Chloride) 10 Meq Tablet.er 1 Tab PO DAILY 07/16/18 Rx Lasix (Furosemide) 40 Mg Tablet 1 Tab PO DAILY 07/16/18 Rx Aspirin Ec (Aspirin) 81 Mg Tablet. 81 Mg PO DAILYWBKFT 30 07/16/18 Rx Duoneb 0.5-3(2.5) Mg/3 Ml (Albuterol/Ipratropium) 3 Ml Ampul.neb 3 Ml NEB RTQID 07/01/18 Rx Diltiazem 24HR Cd (Diltiazem Hcl) 120 Mg Cap.er.24h 120 Mg PO DAILY 07/01/18 Rx Wellbutrin Xl (Bupropion Hcl) 150 Mg Tab.er.24h 1 Tab PO DAILY 06/30/18 Reported Omeprazole 40 Mg Capsule. 1 Cap PO 10/25/14 Reported Impression . IMPRESSION: 1. Chronic respiratory failure. 2. Pulmonary fibrosis. 3. Small-bowel obstruction. 4. Other comorbidities as indicated above. Plan . NOT SEEN IN OR 1. Respiratory status appears to be compensated. We will continue current oxygen supplementation. 2. Obtain records from my office for review. 3. Continue home medications. 4. Follow Surgery input. JON EDWARDS MD Sep 14, 2018 09:01
--- NOTE | 2018-09-14 10:30 | NUR ---
SW following pt. OT recommends acute rehab. Awaiting for PT's recommendation to start rehab/SNU evaluation.
--- NOTE | 2018-09-14 13:28 | PDOC ---
PROGRESS NOTES Subjective Subjective Patient continues to deny flatus or bowel movement. Patient seen during his upper GI with small bowel follow-through. Initial films show retention of contrast in the esophagus and stomach. Objective Objective Vital Signs Date Time Temp Pulse Resp B/P (MAP) Pulse Ox O2 Delivery O2 Flow Rate FiO2 09/14/18 07:30 Room Air 09/14/18 07:00 97.4 69 18 128/71 (90) 90 97.4 Intake and Output 09/14/18 07:00 Intake Total 810 ml Output Total 1350 ml Balance -540 ml Intake Oral 210 ml IV Total 600 ml Output Urine Total 1050 ml Gastric Drainage Total 300 ml # Voids 3 Physical Exam Abdomen: Other (negative bowel sounds.) Heart: Regular rate Extremities: No edema General: Alert Lungs: Clear to auscultation, Other (chronic crackles in sounds from pulmonary fibrosis and basis.) Assessment Assessment Problems Medical Problems: (1) Generalized weakness Status: Acute Small bowel obstruction. PAST MEDICAL HISTORY: Significant for: 1. Pulmonary fibrosis. 2. COPD. 3. SVT. 4. Hypertension. 5. Osteoarthritis. 6. Gastroesophageal reflux disease, status post dilatation of stricture. 7. Hypothyroidism. 8. BPH. 9. Upggr-og-iunwxlt diastolic congestive heart failure. 10. Severe protein malnutrition. 11. History of prostate cancer. 12. History of hepatitis C. 13. Major depression. Plan Plan of Care Continue surgery evaluation. Proceed with PICC line and TPN Continue pulmonary cardiology follow-up Comment Review of Relevant I have reviewed the following items sherine (where applicable) has been applied. Labs Laboratory Tests Test 09/12/18 17:45 09/13/18 04:55 09/13/18 22:30 White Blood Count 14.1 x10^3/uL (4.0-11.0) 12.7 x10^3/uL (4.0-11.0) Red Blood Count 4.37 x10^6/uL (4.30-5.70) 3.99 x10^6/uL (4.30-5.70) Hemoglobin 13.9 g/dL (13.0-17.5) 12.8 g/dL (13.0-17.5) Hematocrit 41.4 % (39.0-53.0) 37.7 % (39.0-53.0) Mean Corpuscular Volume 95 fL (79-100) 94 fL (79-100) Mean Corpuscular Hemoglobin 32 pg (25-35) 32 pg (25-35) Mean Corpuscular Hemoglobin Concent 34 g/dL (31-37) 34 g/dL (31-37) Red Cell Distribution Width 14.0 % (11.5-14.5) 13.9 % (11.5-14.5) Platelet Count 296 x10^3/uL (140-400) 249 x10^3/uL (140-400) Neutrophils (%) (Auto) 78 % (31-73) 79 % (31-73) Lymphocytes (%) (Auto) 10 % (24-48) 8 % (24-48) Monocytes (%) (Auto) 12 % (0-9) 13 % (0-9) Eosinophils (%) (Auto) 0 % (0-3) 0 % (0-3) Basophils (%) (Auto) 0 % (0-3) 0 % (0-3) Neutrophils # (Auto) 11.0 x10^3uL (1.8-7.7) 10.0 x10^3uL (1.8-7.7) Lymphocytes # (Auto) 1.4 x10^3/uL (1.0-4.8) 1.0 x10^3/uL (1.0-4.8) Monocytes # (Auto) 1.7 x10^3/uL (0.0-1.1) 1.6 x10^3/uL (0.0-1.1) Eosinophils # (Auto) 0.0 x10^3/uL (0.0-0.7) 0.0 x10^3/uL (0.0-0.7) Basophils # (Auto) 0.1 x10^3/uL (0.0-0.2) 0.0 x10^3/uL (0.0-0.2) Prothrombin Time 16.0 SEC (11.7-14.0) Prothromb Time International Ratio 1.3 (0.8-1.1) Sodium Level 139 mmol/L (136-145) 140 mmol/L (136-145) Potassium Level 3.3 mmol/L (3.5-5.1) 3.0 mmol/L (3.5-5.1) Chloride Level 97 mmol/L (98-107) 100 mmol/L (98-107) Carbon Dioxide Level 28 mmol/L (21-32) 25 mmol/L (21-32) Anion Gap 14 (6-14) 15 (6-14) Blood Urea Nitrogen 36 mg/dL (8-26) 35 mg/dL (8-26) Creatinine 1.1 mg/dL (0.7-1.3) 1.1 mg/dL (0.7-1.3) Estimated GFR (Cockcroft-Gault) 65.1 65.1 BUN/Creatinine Ratio 33 (6-20) 32 (6-20) Glucose Level 82 mg/dL (70-99) 73 mg/dL (70-99) Calcium Level 10.2 mg/dL (8.5-10.1) 9.0 mg/dL (8.5-10.1) Magnesium Level 2.2 mg/dL (1.8-2.4) 2.1 mg/dL (1.8-2.4) Total Bilirubin 1.1 mg/dL (0.2-1.0) 0.8 mg/dL (0.2-1.0) Aspartate Amino Transf (AST/SGOT) 14 U/L (15-37) 12 U/L (15-37) Alanine Aminotransferase (ALT/SGPT) 14 U/L (16-63) 12 U/L (16-63) Alkaline Phosphatase 82 U/L (46-116) 67 U/L (46-116) Creatine Kinase 12 U/L (39-308) Creatine Kinase MB (Mass) 0.6 ng/mL (0.0-3.6) Creatine Kinase MB Relative Index % (0-4) Troponin I Quantitative 0.029 ng/mL (0.000-0.055) VO-Azw-Q-Type Natriuretic Peptide 642 pg/mL (0-449) Total Protein 7.7 g/dL (6.4-8.2) 6.5 g/dL (6.4-8.2) Albumin 3.2 g/dL (3.4-5.0) 2.6 g/dL (3.4-5.0) Albumin/Globulin Ratio 0.7 (1.0-1.7) 0.7 (1.0-1.7) Lipase 43 U/L (73-393) Urine Collection Type Unknown Urine Color Frances Urine Clarity Clear Urine pH 5.5 Urine Specific [place] >=1.030 Urine Protein 30 mg/dL (NEG-TRACE) Urine Glucose (UA) Negative mg/dL (NEG) Urine Ketones (Stick) 15 mg/dL (NEG) Urine Blood Negative (NEG) Urine Nitrite Negative (NEG) Urine Bilirubin Small (NEG) Urine Urobilinogen Dipstick 0.2 mg/dL (0.2 mg/dL) Urine Leukocyte Esterase Negative (NEG) Urine RBC Occ /HPF (0-2) Urine WBC Occ /HPF (0-4) Urine Bacteria 0 /HPF (0-FEW) Urine Hyaline Casts Occasional /HPF Urine Opiates Screen Pos (NEG) Urine Methadone Screen Neg (NEG) Urine Barbiturates Neg (NEG) Urine Phencyclidine Screen Neg (NEG) Urine Amphetamine/Methamphetamine Neg (NEG) Urine Benzodiazepines Screen Neg (NEG) Urine Cocaine Screen Neg (NEG) Urine Cannabinoids Screen Neg (NEG) Urine Ethyl Alcohol Neg (NEG) Laboratory Tests Test 09/13/18 22:30 Urine Collection Type Unknown Urine Color Frances Urine Clarity Clear Urine pH 5.5 Urine Specific [place] >=1.030 Urine Protein 30 mg/dL (NEG-TRACE) Urine Glucose (UA) Negative mg/dL (NEG) Urine Ketones (Stick) 15 mg/dL (NEG) Urine Blood Negative (NEG) Urine Nitrite Negative (NEG) Urine Bilirubin Small (NEG) Urine Urobilinogen Dipstick 0.2 mg/dL (0.2 mg/dL) Urine Leukocyte Esterase Negative (NEG) Urine RBC Occ /HPF (0-2) Urine WBC Occ /HPF (0-4) Urine Bacteria 0 /HPF (0-FEW) Urine Hyaline Casts Occasional /HPF Urine Opiates Screen Pos (NEG) Urine Methadone Screen Neg (NEG) Urine Barbiturates Neg (NEG) Urine Phencyclidine Screen Neg (NEG) Urine Amphetamine/Methamphetamine Neg (NEG) Urine Benzodiazepines Screen Neg (NEG) Urine Cocaine Screen Neg (NEG) Urine Cannabinoids Screen Neg (NEG) Urine Ethyl Alcohol Neg (NEG) Medications Current Medications Famotidine (Pepcid Vial) 20 mg 1X ONCE IVP Last administered on 09/12/18at 18: 07; Start 09/12/18 at 17:45; Stop 09/12/18 at 17:46; Status DC Ondansetron HCl (Zofran) 4 mg 1X ONCE IV Last administered on 09/12/18at 18:07 ; Start 09/12/18 at 17:45; Stop 09/12/18 at 17:46; Status DC Iohexol (Omnipaque 300 Mg/ml) 75 ml 1X ONCE IV Last administered on 09/12/18at 18:35; Start 09/12/18 at 18:30; Stop 09/12/18 at 18:34; Status DC Info (CONTRAST GIVEN -- Rx MONITORING) 1 each PRN DAILY PRN MC SEE COMMENTS; Start 09/12/18 at 18:45; Stop 09/14/18 at 18:44 Fentanyl Citrate (Fentanyl 2ml Vial) 50 mcg 1X ONCE IV Last administered on 05/21at 20:21; Start 09/12/18 at 20:00; Stop 09/12/18 at 20:01; Status DC Ondansetron HCl (Zofran) 4 mg PRN Q8HRS PRN IV NAUSEA/VOMITING; Start 09/12/18 at 20:30; Stop 09/13/18 at 20:29; Status DC Morphine Sulfate (Morphine Sulfate) 4 mg PRN Q2HR PRN IV PAIN Last administered on 09/13/18at 10:20; Start 09/12/18 at 20:30; Stop 09/13/18 at 20:29 ; Status DC Metronidazole 100 ml @ 100 mls/hr Q8HRS IV Last administered on 09/14/18at 06: 17; Start 09/12/18 at 22:00 Ciprofloxacin/ Dextrose 200 ml @ 200 mls/hr 1X ONCE IV Last administered on at 22:51; Start 09/12/18 at 20:30; Stop 09/12/18 at 21:29; Status DC Sodium Chloride 1,000 ml @ 75 mls/hr 1X ONCE IV Last administered on at 22:51; Start 09/12/18 at 20:30; Stop 09/13/18 at 09:49; Status DC Budesonide (Pulmicort) 0.5 mg RTBID NEB Last administered on 09/13/18at 19:53; Start 09/13/18 at 09:30 Albuterol/ Ipratropium (Duoneb) 3 ml RTQID NEB Last administered on 09/13/18 19:53; Start 09/13/18 at 09:30 Methylprednisolone Sodium Succinate (SOLU-Medrol 40MG VIAL) 20 mg DAILY IV Last administered on 09/13/18 10:21; Start 09/13/18 at 10:00; Stop 09/14/18 at 12:55; Status DC Pantoprazole Sodium (PROTONIX VIAL for IV PUSH) 40 mg DAILYAC IVP Last administered on 09/14/18 06:27; Start 09/13/18 at 10:00 Enoxaparin Sodium (Lovenox 40mg Syringe) 40 mg Q24H SQ Last administered on 10:19; Start 09/13/18 at 10:00 Metoprolol Tartrate (Lopressor Vial) 5 mg Q6HRS IVP Last administered on 06:27; Start 09/13/18 at 14:00 Potassium Chloride/Water 100 ml @ 100 mls/hr Q1H IV Last administered on 17:10; Start 09/13/18 at 14:00; Stop 09/13/18 at 17:59; Status DC Throat Lozenges (Chloraseptic) 1 spray PRN Q2HR PRN PO SORE THROAT Last administered on 09/13/18 17:10; Start 09/13/18 at 16:45 Throat Lozenges (Cepacol Sore Throat Lozenge) 1 deniz PRN Q2HRS PRN PO SORE THROAT Last administered on 09/14/18at 06:35; Start 09/13/18 at 16:45 Aspirin (Aspirin) 300 mg DAILY PA ; Start 09/14/18 at 09:00 Morphine Sulfate (Morphine Sulfate) 4 mg PRN Q2HR PRN IV PAIN Last administered on 09/14/18 06:37; Start 09/13/18 at 21:15 Barium Sulfate (E-Z-Hd) 680 gm 1X ONCE PO ; Start 09/14/18 at 08:00; Stop 09/14 at 08:01; Status DC Iohexol (Omnipaque 300 Mg/ml) 400 ml 1X ONCE PO Last administered on at 08:00; Start 09/14/18 at 08:00; Stop 09/14/18 at 08:01; Status DC Info (CONTRAST GIVEN -- Rx MONITORING) 1 each PRN DAILY PRN MC SEE COMMENTS; Start 09/14/18 at 08:00; Stop 09/16/18 at 07:59 Potassium Chloride/Water 100 ml @ 100 mls/hr Q1H IV ; Start 09/14/18 at 09:00; Stop 09/14/18 at 12:59; Status DC Methylprednisolone Sodium Succinate (SOLU-Medrol 125MG VIAL) 125 mg DAILY IV ; Start 09/15/18 at 09:00 Active Scripts Active Magnesium Chloride 70 Mg Tablet. 64 Mg PO DAILY 30 Days Synthroid (Levothyroxine Sodium) 88 Mcg Tablet 88 Mcg PO DAILY06 30 Days Prednisone 20 Mg Tablet 20 Mg PO DAILY 30 Days Budesonide 0.5 Mg/2 Ml Ampul.neb 0.5 Mg NEB RTBID 30 Days Diltiazem 24HR Cd (Diltiazem Hcl) 180 Mg Cap.er.24h 180 Mg PO DAILY 90 Days Prednisone (Prednisone) 10 Mg Tablet 40 Mg PO DAILY 30 Days Klor-Con 10 (Potassium Chloride) 10 Meq Tablet.er 1 Tab PO DAILY Lasix (Furosemide) 40 Mg Tablet 1 Tab PO DAILY Aspirin Ec (Aspirin) 81 Mg Tablet. 81 Mg PO DAILYWBKFT 30 Days Duoneb 0.5-3(2.5) Mg/3 Ml (Albuterol/Ipratropium) 3 Ml Ampul.neb 3 Ml NEB RTQID 30 Days Diltiazem 24HR Cd (Diltiazem Hcl) 120 Mg Cap.er.24h 120 Mg PO DAILY 30 Days Reported Hydrocodone-Apap 7.5-325 (Hydrocodone Bit/Acetaminophen) 1 Tab Tablet 1 Tab PO PRN Q6HRS PRN Prednisolone Sodium Phosphate (Prednisolone Sod Phosphate) 15 Mg/5 Ml Solution 15 Mg PO DAILY Omeprazole 40 Mg Capsule. 40 Mg PO DAILY Cartia Xt (Diltiazem Hcl) 120 Mg Cap.er.24h 120 Mg PO DAILY Wellbutrin Xl (Bupropion Hcl) 150 Mg Tab.er.24h 1 Tab PO DAILY Omeprazole 40 Mg Capsule. 1 Cap PO Vitals/I & O Vital Sign - Last 24 Hours 09/13/18 09/13/18 09/13/18 09/13/18 14:14 15:00 17:51 19:00 Temp 97.1 97.6 97.1 97.6 Pulse 74 93 81 105 Resp 16 18 B/P (MAP) 115/82 115/82 (93) 131/82 126/82 (97) Pulse Ox 92 90 O2 Delivery Room Air Room Air 09/13/18 09/13/18 09/13/18 09/13/18 19:34 19:55 21:18 21:48 Pulse Ox 93 93 93 O2 Delivery Room Air Room Air Room Air 09/13/18 09/14/18 09/14/18 09/14/18 23:00 00:00 03:00 06:27 Temp 97.8 97.4 97.8 97.4 Pulse 82 82 89 78 Resp 18 18 B/P (MAP) 132/78 (96) 132/78 128/75 (92) 150/81 Pulse Ox 92 91 O2 Delivery Room Air Room Air 09/14/18 09/14/18 09/14/18 09/14/18 06:37 07:00 07:28 07:30 Temp 97.4 97.4 Pulse 69 Resp 20 18 B/P (MAP) 128/71 (90) Pulse Ox 91 90 O2 Delivery Room Air Room Air Room Air Room Air Intake and Output 09/13/18 09/13/18 09/14/18 15:00 23:00 07:00 Intake Total 210 ml 500 ml 100 ml Output Total 200 ml 1150 ml Balance 10 ml 500 ml -1050 ml LOURDES POLLOCK MD Sep 14, 2018 13:28
[2018-09-14] MEDS ORDERED: TPN PER PHARMACY MC PRN (13:30)
[2018-09-14] MEDS: ENOXAPARIN 40 MG/0.4 ML SYRINGE. SQ SCH (13:46)
[2018-09-14] MEDS: PHENOL ORAL SPRAY 177ML BOTTLE. PO PRN (13:47)
--- NOTE | 2018-09-14 14:32 | NUR ---
Unable to get PICC line placed today, Dr. Garcia notified. Procalamine ordered to start today, and TPN to start tomorrow. PICC line order changed to tomorrow.
--- NOTE | 2018-09-14 14:43 | NUR ---
tool and die technician came up to take image of patient. I was not notified of additional images or any directions when patient was returned to floor. I hooked patient back to intermittent suction upon patient return to unit. When radiology came up to take image they asked why he was hooked to suction, and I let them know I was not notified not to return patient to suction. Suction is turned off now and I was informed to leave off until notified to return to suction. Will continue to monitor.
[2018-09-14 14:57] LABS: BASO % 0 % (0-3); EOS % 0 % (0-3); HEMATOCRIT 39.2 % (39.0-53.0); HEMOGLOBIN 13.1 g/dL (13.0-17.5); LYMPH # 0.9 x10^3/uL (1.0-4.8); LYMPH % 8 % (24-48); MEAN CORPUSCULAR HEMOGLOBIN 32 pg (25-35); MEAN CORPUSCULAR HGB CONC 34 g/dL (31-37); MEAN CORPUSCULAR VOLUME 96 fL (79-100); MONO # 1.2 x10^3/uL (0.0-1.1); MONO % 12 % (0-9); NEUT # 8.5 x10^3uL (1.8-7.7); NEUT % 80 % (31-73); PLATELET COUNT 266 x10^3/uL (140-400); RED CELL DISTRIBUTION WIDTH 14.3 % (11.5-14.5); WHITE BLOOD COUNT 10.7 x10^3/uL (4.0-11.0)
[2018-09-14 15:00] VITALS: BP 120/88
[2018-09-14] MEDS: AMINO AC 3%/ELECTROLYTE/GLYCER 1,000 ML IV SCH (15:02)
[2018-09-14 15:11] LABS: ALBUMIN 2.9 g/dL (3.4-5.0); ALBUMIN/GLOBULIN RATIO 0.8 (1.0-1.7); CALCIUM 9.5 mg/dL (8.5-10.1); GFR 72.6; POTASSIUM 3.7 mmol/L (3.5-5.1); TOTAL BILIRUBIN 0.8 mg/dL (0.2-1.0); TOTAL PROTEIN 6.5 g/dL (6.4-8.2)
--- NOTE | 2018-09-14 15:32 | PDOC ---
Provider Note Provider Note SURG SBFT not progressing pt with crampy abdominal pain offered exploration explained R/B/A he will proceed SHAKEEL SOMMER MD Sep 14, 2018 15:32
--- NOTE | 2018-09-14 15:43 | RAD ---
Small bowel series, 09/14/2018: HISTORY: Small bowel obstruction The preliminary abdominal image demonstrates marked gaseous distention of multiple small bowel loops in the mid and upper abdomen similar to slightly worse than on yesterday's KUB. An NG tube extends into the proximal stomach. Serial digital radiographs were obtained following in injection of nonionic contrast material into the stomach to the patient's NG tube. No fluoroscopic imaging was performed. On the initial images there was some reflux or stasis of contrast in the distal esophagus. There is slow passage of contrast into the proximal small bowel. The proximal jejunum is markedly dilated. At 4 hours there has been very little progression of the contrast, compatible with severe mid small bowel obstruction. The procedure was terminated at this point at the request of the ordering physician. The level of obstruction was not delineated on this exam, however, the CT study of 09/12/2018 suggested a transition point in the mid pelvis. IMPRESSION: High-grade mid small bowel obstruction. Electronically signed by: Paulo Sanchez MD (09/14/2018 3:41 PM) [facility]
--- NOTE | 2018-09-14 15:52 | NUR ---
Dr. Neal came up to tell patient that surgery was necessary. Consents have been signed and patient's notified. Will continue to monitor patient.
[2018-09-14] MEDS ORDERED: fentaNYL PF VIAL 100 MCG/2 ML VIAL IV PRN (16:00)
[2018-09-14] MEDS ORDERED: ONDANSETRON PF 4 MG/2 ML VIAL. IV PRN (16:00)
[2018-09-14] MEDS ORDERED: LIDOCAINE 1% PF 2 ML VIAL. ID PRN (16:00)
[2018-09-14] MEDS ORDERED: HYDROmorphone 2 MG/ML VIAL IV PRN (16:00)
--- NOTE | 2018-09-14 16:26 | NUR ---
Potassium non- aministered d/t labs not drawn before ordered. Dr. Garcia requested it held until labs came back to determine need. At this time patient down to surgery and potassium level at 3.7. Will not administer today and let provider determine need as of tomorrow.
[2018-09-14] MEDS ORDERED: ONDANSETRON PF 4 MG/2 ML VIAL. ONE (16:32)
[2018-09-14] MEDS ORDERED: DEXAMETHASONE SOD PHOS 20 MG/5 ML VIAL. ONE (16:32)
[2018-09-14] MEDS ORDERED: PROPOFOL 20 ML IV ONE (16:32)
[2018-09-14] MEDS ORDERED: LIDOCAINE 2% PF 5 ML VIAL. ONE (16:32)
[2018-09-14] MEDS ORDERED: SUCCINYLCHOLINE 200 MG/10 ML VIAL. ONE (16:32)
[2018-09-14] MEDS ORDERED: fentaNYL PF VIAL 100 MCG/2 ML VIAL ONE (16:32)
[2018-09-14] MEDS ORDERED: ROCURONIUM 50 MG/5 ML VIAL. ONE (16:32)
[2018-09-14] MEDS ORDERED: BUPIVAC MPF-EPI 0.5%-1:200000 30 ML VIAL. ONE (17:18)
--- NOTE | 2018-09-14 17:23 | PDOC ---
CARDIO Progress Notes Date and Time Date of Service 09/14/2018 Time of Evaluation 1330 Subjective Subjective: No Chest Pain, No shortness of breath, No Palpitations Vitals Vitals Vital Signs Date Time Temp Pulse Resp B/P (MAP) Pulse Ox O2 Delivery O2 Flow Rate FiO2 09/14/18 16:10 98.4 89 23 135/92 96 Room Air 98.4 Weight Weight [ ] Input and Output Intake and Output Intake and Output 09/14/18 07:00 Intake Total 810 ml Output Total 1350 ml Balance -540 ml Intake Oral 210 ml IV Total 600 ml Output Urine Total 1050 ml Gastric Drainage Total 300 ml # Voids 3 Laboratory Labs Laboratory Tests Test 09/13/18 22:30 09/14/18 14:50 Urine Collection Type Unknown Urine Color Frances Urine Clarity Clear Urine pH 5.5 Urine Specific [place] >=1.030 Urine Protein 30 mg/dL (NEG-TRACE) Urine Glucose (UA) Negative mg/dL (NEG) Urine Ketones (Stick) 15 mg/dL (NEG) Urine Blood Negative (NEG) Urine Nitrite Negative (NEG) Urine Bilirubin Small (NEG) Urine Urobilinogen Dipstick 0.2 mg/dL (0.2 mg/dL) Urine Leukocyte Esterase Negative (NEG) Urine RBC Occ /HPF (0-2) Urine WBC Occ /HPF (0-4) Urine Bacteria 0 /HPF (0-FEW) Urine Hyaline Casts Occasional /HPF Urine Opiates Screen Pos (NEG) Urine Methadone Screen Neg (NEG) Urine Barbiturates Neg (NEG) Urine Phencyclidine Screen Neg (NEG) Urine Amphetamine/Methamphetamine Neg (NEG) Urine Benzodiazepines Screen Neg (NEG) Urine Cocaine Screen Neg (NEG) Urine Cannabinoids Screen Neg (NEG) Urine Ethyl Alcohol Neg (NEG) White Blood Count 10.7 x10^3/uL (4.0-11.0) Red Blood Count 4.10 x10^6/uL (4.30-5.70) Hemoglobin 13.1 g/dL (13.0-17.5) Hematocrit 39.2 % (39.0-53.0) Mean Corpuscular Volume 96 fL (79-100) Mean Corpuscular Hemoglobin 32 pg (25-35) Mean Corpuscular Hemoglobin Concent 34 g/dL (31-37) Red Cell Distribution Width 14.3 % (11.5-14.5) Platelet Count 266 x10^3/uL (140-400) Neutrophils (%) (Auto) 80 % (31-73) Lymphocytes (%) (Auto) 8 % (24-48) Monocytes (%) (Auto) 12 % (0-9) Eosinophils (%) (Auto) 0 % (0-3) Basophils (%) (Auto) 0 % (0-3) Neutrophils # (Auto) 8.5 x10^3uL (1.8-7.7) Lymphocytes # (Auto) 0.9 x10^3/uL (1.0-4.8) Monocytes # (Auto) 1.2 x10^3/uL (0.0-1.1) Eosinophils # (Auto) 0.0 x10^3/uL (0.0-0.7) Basophils # (Auto) 0.0 x10^3/uL (0.0-0.2) Sodium Level 147 mmol/L (136-145) Potassium Level 3.7 mmol/L (3.5-5.1) Chloride Level 106 mmol/L (98-107) Carbon Dioxide Level 27 mmol/L (21-32) Anion Gap 14 (6-14) Blood Urea Nitrogen 28 mg/dL (8-26) Creatinine 1.0 mg/dL (0.7-1.3) Estimated GFR (Cockcroft-Gault) 72.6 BUN/Creatinine Ratio 28 (6-20) Glucose Level 82 mg/dL (70-99) Calcium Level 9.5 mg/dL (8.5-10.1) Phosphorus Level 3.1 mg/dL (2.6-4.7) Total Bilirubin 0.8 mg/dL (0.2-1.0) Aspartate Amino Transf (AST/SGOT) 15 U/L (15-37) Alanine Aminotransferase (ALT/SGPT) 13 U/L (16-63) Alkaline Phosphatase 70 U/L (46-116) Total Protein 6.5 g/dL (6.4-8.2) Albumin 2.9 g/dL (3.4-5.0) Albumin/Globulin Ratio 0.8 (1.0-1.7) Physical Exam HEENT: Neck Supple W Full Motion Chest: Symmetric LUNGS: Clear to Auscultation Heart: S1S2, RRR (SR) Abdomen: Other (NGT in place with biolous drain) Extremities: No Calf Tenderness Neurology: alert, oriented, follow commands Assessment Assessment 1. SBO; NGT for decompression. potential surgery 2. PAFIB; maintaining SR, but having intermittent PAFIB. Oral Cardizem held secondary to SBO 3. Chronic diastolic heart failure: WM nml and EF 55-60%. Compensated clinically 4. Hypertension: controlled 5. Hyperlipidemia 6. COPD/ILD 7. Hypothyroidism: On levothyroxine. TSH 12.631 (08/26/2018) as per PCP 8. Hypokalemia: resolved Recommendations 1. Continue with IV lopressor while NPO 2. ASA for stroke prophylaxis 3. Lasix as warranted JACQUE ODEN APRN Sep 14, 2018 17:23
[2018-09-14] MEDS ORDERED: LIDOCAINE 2% JELLY 6ML IN APPLICATOR. ONE (17:43)
[2018-09-14] MEDS ORDERED: HYDROCORTISONE SOD SUCC/PF 100 MG/2 ML VIAL. ONE (18:08)
[2018-09-14] MEDS ORDERED: PHENYLEPHRINE 10 MG/ML VIAL. ONE (18:11)
[2018-09-14] MEDS: IV RINGERS,LACTATED 1000ML 1,000 ML IV SCH ×2 (19:00→21:30)
[2018-09-14] MEDS ORDERED: GLYCOPYRROLATE 1 MG/5 ML VIAL. ONE (19:05)
[2018-09-14] MEDS ORDERED: SEVOFLURANE 61 TO 120 MINUTES. IH ONE (19:23)
--- NOTE | 2018-09-14 19:38 | PDOC ---
BRIEF OPERATIVE NOTE Date: Sep 14, 2018 Pre-Op Diagnosis small bowel obstruction Post-Op Diagnosis same 2/2 adhesive band Procedure Performed d/x l/s laparotomy, release small bowel obstruction, decompression small bowel Surgeon Ángel Consignee Debbi FOLEY Anesthesia Type: General Blood Loss 50cc IV Fluid 1500cc Urine Output 300cc Specimens Obtained none Findings internal hernia from an adhesive band Complications none SHAKEEL SOMMER MD Sep 14, 2018 19:38
[2018-09-14] MEDS ORDERED: ENOXAPARIN 40 MG/0.4 ML SYRINGE. SQ SCH (19:45)
[2018-09-14] MEDS ORDERED: 0.9 % SODIUM CHLORIDE 10 ML DISP.SYRIN. IV PRN (19:45)
[2018-09-14] MEDS ORDERED: HYDROmorphone 12mg/30ml PCA 30 ML IV PRN (19:45)
[2018-09-14] MEDS: fentaNYL PF VIAL 100 MCG/2 ML VIAL IV PRN ×2 (20:01→20:27)
[2018-09-14] MEDS: PROCHLORPERAZINE 10 MG/2 ML VIAL. IV PRN ×2 (20:02→21:02)
[2018-09-14] MEDS ORDERED: IV RINGERS,LACTATED 1000ML 1,000 ML IV SCH (21:00)
--- NOTE | 2018-09-14 21:27 | RAD ---
AP abdomen radiograph 09/14/2018 CLINICAL HISTORY: Post surgery for small bowel obstruction. An AP supine portable digital radiograph abdomen was obtained. Comparison study is dated earlier today at 0812 hours. The NG tube has been advanced. The tip of this tube overlies the distal body of the stomach. Contrast is seen within the stomach and throughout the small bowel. The small bowel dilatation has improved since the previous study. Midline skin mya are noted. The osseous structures are unchanged. IMPRESSION: 1. The tip of the NG tube extends to overlie the distal body of the stomach. 2. Improvement in the small bowel dilatation. Electronically signed by: Tristan Mae MD (09/14/2018 9:23 PM) [facility]
[2018-09-14 21:47] LABS: BASE EXCESS ABG -6 mmol/L (-3-3); HCO3 ABG 18 mmol/L (21-28); PCO2 ABG 30 mmHg (35-46); PO2 ABG 101 mmHg (65-108); SAT O2 ABG 97 % (92-99)
[2018-09-14 21:56] LABS: FIO2 ABG 28
[2018-09-14 23:00] VITALS: BP 115/65
--- NOTE | 2018-09-14 23:04 | NUR ---
Report was given to Yousuf CONTACT MANAGER regarding pt's transfer. Pt's Lu was notified.
[2018-09-15] VITALS (24 sets, daily range): BP systolic 90–129; BP diastolic 55–74
[2018-09-15] MEDS ORDERED: ALBUMIN HUMAN 5% 250 ML IV ONE (01:00)
[2018-09-15] MEDS: AMINO AC 3%/ELECTROLYTE/GLYCER 1,000 ML IV SCH ×2 (03:32→15:30)
--- NOTE | 2018-09-15 04:56 | NUR ---
Pt BP 87/48 and urine output has been less than 30ml/hr for past 2hrs. Dr. Neal was called at 0125 and notified of above information. Dr. Neal ordered 5% albumin 250ml to be given over 3hrs. Dr. Neal stated that he was not very concerned about the decreased urine output. Pt currently stable and awake and talking, will continue to monitor.
[2018-09-15] MEDS: METOPROLOL TARTRATE 5 MG/5 ML VIAL. IVP SCH ×4 (05:46→18:12)
[2018-09-15 05:49] LABS: BASO % 0 % (0-3); EOS % 0 % (0-3); HEMATOCRIT 40.3 % (39.0-53.0); HEMOGLOBIN 13.1 g/dL (13.0-17.5); LYMPH # 0.3 x10^3/uL (1.0-4.8); LYMPH % 2 % (24-48); MEAN CORPUSCULAR HEMOGLOBIN 31 pg (25-35); MEAN CORPUSCULAR HGB CONC 33 g/dL (31-37); MEAN CORPUSCULAR VOLUME 96 fL (79-100); MONO # 0.7 x10^3/uL (0.0-1.1); MONO % 5 % (0-9); NEUT # 14.2 x10^3uL (1.8-7.7); NEUT % 94 % (31-73); PLATELET COUNT 219 x10^3/uL (140-400); RED BLOOD COUNT 4.18 x10^6/uL (4.30-5.70); RED CELL DISTRIBUTION WIDTH 14.3 % (11.5-14.5); WHITE BLOOD COUNT 15.2 x10^3/uL (4.0-11.0)
[2018-09-15 06:07] LABS: CALCIUM 8.8 mg/dL (8.5-10.1); CREATININE 1.6 mg/dL (0.7-1.3); GFR 42.2; MAGNESIUM 1.9 mg/dL (1.8-2.4); PHOSPHORUS 5.2 mg/dL (2.6-4.7); POTASSIUM 3.6 mmol/L (3.5-5.1)
[2018-09-15] MEDS: IPRATRPIUM/ALBUTEROL 0.5/2.5MG 3 ML NEBU. NEB SCH ×4 (08:10→20:29)
[2018-09-15] MEDS: BUDESONIDE 0.5 MG/2 ML NEBU. NEB SCH ×2 (08:10→20:29)
--- NOTE | 2018-09-15 08:53 | PDOC ---
PULMONARY PROGRESS NOTES Subjective PT WENT TO OR NOT MORE SOA Vitals Vital Signs Date Time Temp Pulse Resp B/P (MAP) Pulse Ox O2 Delivery O2 Flow Rate FiO2 09/15/18 08:13 100 Room Air 09/15/18 06:00 95 17 100/62 (75) 09/15/18 04:00 99.2 99.2 09/15/18 04:00 2 ROS: No Nausea, No Chest Pain, No Increase Cough General: Alert HEENT: Other Lungs: Crackles Cardiovascular: S1, S2 Abdomen: Soft, Non-tender Neuro Exam: Alert Extremities: Other Skin: Warm Labs Laboratory Tests Test 09/13/18 22:30 09/14/18 14:50 09/14/18 21:42 09/15/18 04:25 Urine Collection Type Unknown Urine Color Frances Urine Clarity Clear Urine pH 5.5 Urine Specific [place] >=1.030 Urine Protein 30 mg/dL (NEG-TRACE) Urine Glucose (UA) Negative mg/dL (NEG) Urine Ketones (Stick) 15 mg/dL (NEG) Urine Blood Negative (NEG) Urine Nitrite Negative (NEG) Urine Bilirubin Small (NEG) Urine Urobilinogen Dipstick 0.2 mg/dL (0.2 mg/dL) Urine Leukocyte Esterase Negative (NEG) Urine RBC Occ /HPF (0-2) Urine WBC Occ /HPF (0-4) Urine Bacteria 0 /HPF (0-FEW) Urine Hyaline Casts Occasional /HPF Urine Opiates Screen Pos (NEG) Urine Methadone Screen Neg (NEG) Urine Barbiturates Neg (NEG) Urine Phencyclidine Screen Neg (NEG) Urine Amphetamine/Methamphetamine Neg (NEG) Urine Benzodiazepines Screen Neg (NEG) Urine Cocaine Screen Neg (NEG) Urine Cannabinoids Screen Neg (NEG) Urine Ethyl Alcohol Neg (NEG) White Blood Count 10.7 x10^3/uL (4.0-11.0) 15.2 x10^3/uL (4.0-11.0) Red Blood Count 4.10 x10^6/uL (4.30-5.70) 4.18 x10^6/uL (4.30-5.70) Hemoglobin 13.1 g/dL (13.0-17.5) 13.1 g/dL (13.0-17.5) Hematocrit 39.2 % (39.0-53.0) 40.3 % (39.0-53.0) Mean Corpuscular Volume 96 fL (79-100) 96 fL (79-100) Mean Corpuscular Hemoglobin 32 pg (25-35) 31 pg (25-35) Mean Corpuscular Hemoglobin Concent 34 g/dL (31-37) 33 g/dL (31-37) Red Cell Distribution Width 14.3 % (11.5-14.5) 14.3 % (11.5-14.5) Platelet Count 266 x10^3/uL (140-400) 219 x10^3/uL (140-400) Neutrophils (%) (Auto) 80 % (31-73) 94 % (31-73) Lymphocytes (%) (Auto) 8 % (24-48) 2 % (24-48) Monocytes (%) (Auto) 12 % (0-9) 5 % (0-9) Eosinophils (%) (Auto) 0 % (0-3) 0 % (0-3) Basophils (%) (Auto) 0 % (0-3) 0 % (0-3) Neutrophils # (Auto) 8.5 x10^3uL (1.8-7.7) 14.2 x10^3uL (1.8-7.7) Lymphocytes # (Auto) 0.9 x10^3/uL (1.0-4.8) 0.3 x10^3/uL (1.0-4.8) Monocytes # (Auto) 1.2 x10^3/uL (0.0-1.1) 0.7 x10^3/uL (0.0-1.1) Eosinophils # (Auto) 0.0 x10^3/uL (0.0-0.7) 0.0 x10^3/uL (0.0-0.7) Basophils # (Auto) 0.0 x10^3/uL (0.0-0.2) 0.0 x10^3/uL (0.0-0.2) Sodium Level 147 mmol/L (136-145) 147 mmol/L (136-145) Potassium Level 3.7 mmol/L (3.5-5.1) 3.6 mmol/L (3.5-5.1) Chloride Level 106 mmol/L (98-107) 107 mmol/L (98-107) Carbon Dioxide Level 27 mmol/L (21-32) 19 mmol/L (21-32) Anion Gap 14 (6-14) 21 (6-14) Blood Urea Nitrogen 28 mg/dL (8-26) 32 mg/dL (8-26) Creatinine 1.0 mg/dL (0.7-1.3) 1.6 mg/dL (0.7-1.3) Estimated GFR (Cockcroft-Gault) 72.6 42.2 BUN/Creatinine Ratio 28 (6-20) Glucose Level 82 mg/dL (70-99) 142 mg/dL (70-99) Calcium Level 9.5 mg/dL (8.5-10.1) 8.8 mg/dL (8.5-10.1) Phosphorus Level 3.1 mg/dL (2.6-4.7) 5.2 mg/dL (2.6-4.7) Total Bilirubin 0.8 mg/dL (0.2-1.0) Aspartate Amino Transf (AST/SGOT) 15 U/L (15-37) Alanine Aminotransferase (ALT/SGPT) 13 U/L (16-63) Alkaline Phosphatase 70 U/L (46-116) Total Protein 6.5 g/dL (6.4-8.2) Albumin 2.9 g/dL (3.4-5.0) Albumin/Globulin Ratio 0.8 (1.0-1.7) O2 Saturation 97 % (92-99) Arterial Blood pH 7.39 (7.35-7.45) Arterial Blood pCO2 at Patient Temp 30 mmHg (35-46) Arterial Blood pO2 at Patient Temp 101 mmHg (65-108) Arterial Blood HCO3 18 mmol/L (21-28) Arterial Blood Base Excess -6 mmol/L (-3-3) FiO2 28 Magnesium Level 1.9 mg/dL (1.8-2.4) Laboratory Tests Test 09/14/18 14:50 09/14/18 21:42 09/15/18 04:25 White Blood Count 10.7 x10^3/uL (4.0-11.0) 15.2 x10^3/uL (4.0-11.0) Red Blood Count 4.10 x10^6/uL (4.30-5.70) 4.18 x10^6/uL (4.30-5.70) Hemoglobin 13.1 g/dL (13.0-17.5) 13.1 g/dL (13.0-17.5) Hematocrit 39.2 % (39.0-53.0) 40.3 % (39.0-53.0) Mean Corpuscular Volume 96 fL (79-100) 96 fL (79-100) Mean Corpuscular Hemoglobin 32 pg (25-35) 31 pg (25-35) Mean Corpuscular Hemoglobin Concent 34 g/dL (31-37) 33 g/dL (31-37) Red Cell Distribution Width 14.3 % (11.5-14.5) 14.3 % (11.5-14.5) Platelet Count 266 x10^3/uL (140-400) 219 x10^3/uL (140-400) Neutrophils (%) (Auto) 80 % (31-73) 94 % (31-73) Lymphocytes (%) (Auto) 8 % (24-48) 2 % (24-48) Monocytes (%) (Auto) 12 % (0-9) 5 % (0-9) Eosinophils (%) (Auto) 0 % (0-3) 0 % (0-3) Basophils (%) (Auto) 0 % (0-3) 0 % (0-3) Neutrophils # (Auto) 8.5 x10^3uL (1.8-7.7) 14.2 x10^3uL (1.8-7.7) Lymphocytes # (Auto) 0.9 x10^3/uL (1.0-4.8) 0.3 x10^3/uL (1.0-4.8) Monocytes # (Auto) 1.2 x10^3/uL (0.0-1.1) 0.7 x10^3/uL (0.0-1.1) Eosinophils # (Auto) 0.0 x10^3/uL (0.0-0.7) 0.0 x10^3/uL (0.0-0.7) Basophils # (Auto) 0.0 x10^3/uL (0.0-0.2) 0.0 x10^3/uL (0.0-0.2) Sodium Level 147 mmol/L (136-145) 147 mmol/L (136-145) Potassium Level 3.7 mmol/L (3.5-5.1) 3.6 mmol/L (3.5-5.1) Chloride Level 106 mmol/L (98-107) 107 mmol/L (98-107) Carbon Dioxide Level 27 mmol/L (21-32) 19 mmol/L (21-32) Anion Gap 14 (6-14) 21 (6-14) Blood Urea Nitrogen 28 mg/dL (8-26) 32 mg/dL (8-26) Creatinine 1.0 mg/dL (0.7-1.3) 1.6 mg/dL (0.7-1.3) Estimated GFR (Cockcroft-Gault) 72.6 42.2 BUN/Creatinine Ratio 28 (6-20) Glucose Level 82 mg/dL (70-99) 142 mg/dL (70-99) Calcium Level 9.5 mg/dL (8.5-10.1) 8.8 mg/dL (8.5-10.1) Phosphorus Level 3.1 mg/dL (2.6-4.7) 5.2 mg/dL (2.6-4.7) Total Bilirubin 0.8 mg/dL (0.2-1.0) Aspartate Amino Transf (AST/SGOT) 15 U/L (15-37) Alanine Aminotransferase (ALT/SGPT) 13 U/L (16-63) Alkaline Phosphatase 70 U/L (46-116) Total Protein 6.5 g/dL (6.4-8.2) Albumin 2.9 g/dL (3.4-5.0) Albumin/Globulin Ratio 0.8 (1.0-1.7) O2 Saturation 97 % (92-99) Arterial Blood pH 7.39 (7.35-7.45) Arterial Blood pCO2 at Patient Temp 30 mmHg (35-46) Arterial Blood pO2 at Patient Temp 101 mmHg (65-108) Arterial Blood HCO3 18 mmol/L (21-28) Arterial Blood Base Excess -6 mmol/L (-3-3) FiO2 28 Magnesium Level 1.9 mg/dL (1.8-2.4) Medications Active Scripts Medications Dose Route/Sig Max Daily Dose Days Date Category Magnesium Chloride 70 Mg Tablet. 64 Mg PO DAILY 30 08/30/18 Rx Synthroid (Levothyroxine Sodium) 88 Mcg Tablet 88 Mcg PO DAILY06 30 08/30/18 Rx Prednisone 20 Mg Tablet 20 Mg PO DAILY 30 08/30/18 Rx Budesonide 0.5 Mg/2 Ml Ampul.neb 0.5 Mg NEB RTBID 30 08/30/18 Rx Diltiazem 24HR Cd (Diltiazem Hcl) 180 Mg Cap.er.24h 180 Mg PO DAILY 90 08/30/18 Rx Hydrocodone-Apap 7.5-325 (Hydrocodone Bit/Acetaminophen) 1 Tab Tablet 1 Tab PO PRN Q6HRS PRN 08/26/18 Reported Prednisolone Sodium Phosphate (Prednisolone Sod Phosphate) 15 Mg/5 Ml Solution 15 Mg PO DAILY 08/26/18 Reported Omeprazole 40 Mg Capsule. 40 Mg PO DAILY 08/26/18 Reported Cartia Xt (Diltiazem Hcl) 120 Mg Cap.er.24h 120 Mg PO DAILY 08/26/18 Reported Prednisone (Prednisone) 10 Mg Tablet 40 Mg PO DAILY 30 07/16/18 Rx Klor-Con 10 (Potassium Chloride) 10 Meq Tablet.er 1 Tab PO DAILY 07/16/18 Rx Lasix (Furosemide) 40 Mg Tablet 1 Tab PO DAILY 07/16/18 Rx Aspirin Ec (Aspirin) 81 Mg Tablet. 81 Mg PO DAILYWBKFT 30 07/16/18 Rx Duoneb 0.5-3(2.5) Mg/3 Ml (Albuterol/Ipratropium) 3 Ml Ampul.neb 3 Ml NEB RTQID 30 07/01/18 Rx Diltiazem 24HR Cd (Diltiazem Hcl) 120 Mg Cap.er.24h 120 Mg PO DAILY 30 07/01/18 Rx Wellbutrin Xl (Bupropion Hcl) 150 Mg Tab.er.24h 1 Tab PO DAILY 06/30/18 Reported Omeprazole 40 Mg Capsule. 1 Cap PO 10/25/14 Reported Impression . IMPRESSION: 1. Chronic respiratory failure. 2. Pulmonary fibrosis. 3. Small-bowel obstruction. S/P SURGERY SEE BELOW 4. Other comorbidities as indicated above. PREOPERATIVE DIAGNOSIS: Small bowel obstruction. POSTOPERATIVE DIAGNOSIS: Small bowel obstruction, secondary to adhesive band. PROCEDURE: Diagnostic laparoscopy, followed by laparotomy with release of small-bowel obstruction and decompression of the small bowel. Plan . POST OP CARE D/W RN AVOID OVER SEDATION TPN NEBS IS JON EDWARDS MD Sep 15, 2018 08:53
[2018-09-15] MEDS ORDERED: ALBUMIN HUMAN 5% 500 ML IV ONE (09:00)
--- NOTE | 2018-09-15 09:24 | PDOC ---
PROGRESS NOTES Subjective Subjective Patient went to surgery last evening. lysis of adhesion and SBO release. Doing well post op mildly sedated with pain treatment this am. orient x3. no flatus Objective Objective Vital Signs Date Time Temp Pulse Resp B/P (MAP) Pulse Ox O2 Delivery O2 Flow Rate FiO2 09/15/18 08:13 100 Room Air 09/15/18 06:00 95 17 100/62 (75) 09/15/18 04:00 99.2 99.2 09/15/18 04:00 2 Intake and Output 09/15/18 07:00 Intake Total 5885.75 ml Output Total 1305 ml Balance 4580.75 ml Intake Oral 0 ml IV Total 5885.75 ml Output Urine Total 905 ml Gastric Drainage Total 350 ml Estimated Blood Loss 50 ml Physical Exam Abdomen: Other (hypoactive) Heart: Regular rate Extremities: No edema General: Other (mild sedation) Lungs: Clear to auscultation, Other (chronic crackle BS bases) Assessment Assessment Problems Medical Problems: (1) Generalized weakness Status: Acute Small bowel obstruction. S/P open lap lysis of adhesion and SBO take down POD #1 PAST MEDICAL HISTORY: Significant for: 1. Pulmonary fibrosis. 2. COPD. 3. SVT. 4. Hypertension. 5. Osteoarthritis. 6. Gastroesophageal reflux disease, status post dilatation of stricture. 7. Hypothyroidism. 8. BPH. 9. Ojmgt-co-voavohw diastolic congestive heart failure. 10. Severe protein malnutrition. 11. History of prostate cancer. 12. History of hepatitis C. 13. Major depression. Plan Plan of Care Continue supportive care Await bowel function continue PPN Bolus fluid if needed Comment Review of Relevant I have reviewed the following items sherine (where applicable) has been applied. Labs Laboratory Tests Test 09/13/18 22:30 09/14/18 14:50 09/14/18 21:42 09/15/18 04:25 Urine Collection Type Unknown Urine Color Frances Urine Clarity Clear Urine pH 5.5 Urine Specific [place] >=1.030 Urine Protein 30 mg/dL (NEG-TRACE) Urine Glucose (UA) Negative mg/dL (NEG) Urine Ketones (Stick) 15 mg/dL (NEG) Urine Blood Negative (NEG) Urine Nitrite Negative (NEG) Urine Bilirubin Small (NEG) Urine Urobilinogen Dipstick 0.2 mg/dL (0.2 mg/dL) Urine Leukocyte Esterase Negative (NEG) Urine RBC Occ /HPF (0-2) Urine WBC Occ /HPF (0-4) Urine Bacteria 0 /HPF (0-FEW) Urine Hyaline Casts Occasional /HPF Urine Opiates Screen Pos (NEG) Urine Methadone Screen Neg (NEG) Urine Barbiturates Neg (NEG) Urine Phencyclidine Screen Neg (NEG) Urine Amphetamine/Methamphetamine Neg (NEG) Urine Benzodiazepines Screen Neg (NEG) Urine Cocaine Screen Neg (NEG) Urine Cannabinoids Screen Neg (NEG) Urine Ethyl Alcohol Neg (NEG) White Blood Count 10.7 x10^3/uL (4.0-11.0) 15.2 x10^3/uL (4.0-11.0) Red Blood Count 4.10 x10^6/uL (4.30-5.70) 4.18 x10^6/uL (4.30-5.70) Hemoglobin 13.1 g/dL (13.0-17.5) 13.1 g/dL (13.0-17.5) Hematocrit 39.2 % (39.0-53.0) 40.3 % (39.0-53.0) Mean Corpuscular Volume 96 fL (79-100) 96 fL (79-100) Mean Corpuscular Hemoglobin 32 pg (25-35) 31 pg (25-35) Mean Corpuscular Hemoglobin Concent 34 g/dL (31-37) 33 g/dL (31-37) Red Cell Distribution Width 14.3 % (11.5-14.5) 14.3 % (11.5-14.5) Platelet Count 266 x10^3/uL (140-400) 219 x10^3/uL (140-400) Neutrophils (%) (Auto) 80 % (31-73) 94 % (31-73) Lymphocytes (%) (Auto) 8 % (24-48) 2 % (24-48) Monocytes (%) (Auto) 12 % (0-9) 5 % (0-9) Eosinophils (%) (Auto) 0 % (0-3) 0 % (0-3) Basophils (%) (Auto) 0 % (0-3) 0 % (0-3) Neutrophils # (Auto) 8.5 x10^3uL (1.8-7.7) 14.2 x10^3uL (1.8-7.7) Lymphocytes # (Auto) 0.9 x10^3/uL (1.0-4.8) 0.3 x10^3/uL (1.0-4.8) Monocytes # (Auto) 1.2 x10^3/uL (0.0-1.1) 0.7 x10^3/uL (0.0-1.1) Eosinophils # (Auto) 0.0 x10^3/uL (0.0-0.7) 0.0 x10^3/uL (0.0-0.7) Basophils # (Auto) 0.0 x10^3/uL (0.0-0.2) 0.0 x10^3/uL (0.0-0.2) Sodium Level 147 mmol/L (136-145) 147 mmol/L (136-145) Potassium Level 3.7 mmol/L (3.5-5.1) 3.6 mmol/L (3.5-5.1) Chloride Level 106 mmol/L (98-107) 107 mmol/L (98-107) Carbon Dioxide Level 27 mmol/L (21-32) 19 mmol/L (21-32) Anion Gap 14 (6-14) 21 (6-14) Blood Urea Nitrogen 28 mg/dL (8-26) 32 mg/dL (8-26) Creatinine 1.0 mg/dL (0.7-1.3) 1.6 mg/dL (0.7-1.3) Estimated GFR (Cockcroft-Gault) 72.6 42.2 BUN/Creatinine Ratio 28 (6-20) Glucose Level 82 mg/dL (70-99) 142 mg/dL (70-99) Calcium Level 9.5 mg/dL (8.5-10.1) 8.8 mg/dL (8.5-10.1) Phosphorus Level 3.1 mg/dL (2.6-4.7) 5.2 mg/dL (2.6-4.7) Total Bilirubin 0.8 mg/dL (0.2-1.0) Aspartate Amino Transf (AST/SGOT) 15 U/L (15-37) Alanine Aminotransferase (ALT/SGPT) 13 U/L (16-63) Alkaline Phosphatase 70 U/L (46-116) Total Protein 6.5 g/dL (6.4-8.2) Albumin 2.9 g/dL (3.4-5.0) Albumin/Globulin Ratio 0.8 (1.0-1.7) O2 Saturation 97 % (92-99) Arterial Blood pH 7.39 (7.35-7.45) Arterial Blood pCO2 at Patient Temp 30 mmHg (35-46) Arterial Blood pO2 at Patient Temp 101 mmHg (65-108) Arterial Blood HCO3 18 mmol/L (21-28) Arterial Blood Base Excess -6 mmol/L (-3-3) FiO2 28 Magnesium Level 1.9 mg/dL (1.8-2.4) Laboratory Tests Test 09/14/18 14:50 09/14/18 21:42 09/15/18 04:25 White Blood Count 10.7 x10^3/uL (4.0-11.0) 15.2 x10^3/uL (4.0-11.0) Red Blood Count 4.10 x10^6/uL (4.30-5.70) 4.18 x10^6/uL (4.30-5.70) Hemoglobin 13.1 g/dL (13.0-17.5) 13.1 g/dL (13.0-17.5) Hematocrit 39.2 % (39.0-53.0) 40.3 % (39.0-53.0) Mean Corpuscular Volume 96 fL (79-100) 96 fL (79-100) Mean Corpuscular Hemoglobin 32 pg (25-35) 31 pg (25-35) Mean Corpuscular Hemoglobin Concent 34 g/dL (31-37) 33 g/dL (31-37) Red Cell Distribution Width 14.3 % (11.5-14.5) 14.3 % (11.5-14.5) Platelet Count 266 x10^3/uL (140-400) 219 x10^3/uL (140-400) Neutrophils (%) (Auto) 80 % (31-73) 94 % (31-73) Lymphocytes (%) (Auto) 8 % (24-48) 2 % (24-48) Monocytes (%) (Auto) 12 % (0-9) 5 % (0-9) Eosinophils (%) (Auto) 0 % (0-3) 0 % (0-3) Basophils (%) (Auto) 0 % (0-3) 0 % (0-3) Neutrophils # (Auto) 8.5 x10^3uL (1.8-7.7) 14.2 x10^3uL (1.8-7.7) Lymphocytes # (Auto) 0.9 x10^3/uL (1.0-4.8) 0.3 x10^3/uL (1.0-4.8) Monocytes # (Auto) 1.2 x10^3/uL (0.0-1.1) 0.7 x10^3/uL (0.0-1.1) Eosinophils # (Auto) 0.0 x10^3/uL (0.0-0.7) 0.0 x10^3/uL (0.0-0.7) Basophils # (Auto) 0.0 x10^3/uL (0.0-0.2) 0.0 x10^3/uL (0.0-0.2) Sodium Level 147 mmol/L (136-145) 147 mmol/L (136-145) Potassium Level 3.7 mmol/L (3.5-5.1) 3.6 mmol/L (3.5-5.1) Chloride Level 106 mmol/L (98-107) 107 mmol/L (98-107) Carbon Dioxide Level 27 mmol/L (21-32) 19 mmol/L (21-32) Anion Gap 14 (6-14) 21 (6-14) Blood Urea Nitrogen 28 mg/dL (8-26) 32 mg/dL (8-26) Creatinine 1.0 mg/dL (0.7-1.3) 1.6 mg/dL (0.7-1.3) Estimated GFR (Cockcroft-Gault) 72.6 42.2 BUN/Creatinine Ratio 28 (6-20) Glucose Level 82 mg/dL (70-99) 142 mg/dL (70-99) Calcium Level 9.5 mg/dL (8.5-10.1) 8.8 mg/dL (8.5-10.1) Phosphorus Level 3.1 mg/dL (2.6-4.7) 5.2 mg/dL (2.6-4.7) Total Bilirubin 0.8 mg/dL (0.2-1.0) Aspartate Amino Transf (AST/SGOT) 15 U/L (15-37) Alanine Aminotransferase (ALT/SGPT) 13 U/L (16-63) Alkaline Phosphatase 70 U/L (46-116) Total Protein 6.5 g/dL (6.4-8.2) Albumin 2.9 g/dL (3.4-5.0) Albumin/Globulin Ratio 0.8 (1.0-1.7) O2 Saturation 97 % (92-99) Arterial Blood pH 7.39 (7.35-7.45) Arterial Blood pCO2 at Patient Temp 30 mmHg (35-46) Arterial Blood pO2 at Patient Temp 101 mmHg (65-108) Arterial Blood HCO3 18 mmol/L (21-28) Arterial Blood Base Excess -6 mmol/L (-3-3) FiO2 28 Magnesium Level 1.9 mg/dL (1.8-2.4) Medications Current Medications Famotidine (Pepcid Vial) 20 mg 1X ONCE IVP Last administered on 09/12/18at 18: 07; Start 09/12/18 at 17:45; Stop 09/12/18 at 17:46; Status DC Ondansetron HCl (Zofran) 4 mg 1X ONCE IV Last administered on 09/12/18at 18:07 ; Start 09/12/18 at 17:45; Stop 09/12/18 at 17:46; Status DC Iohexol (Omnipaque 300 Mg/ml) 75 ml 1X ONCE IV Last administered on 09/12/18at 18:35; Start 09/12/18 at 18:30; Stop 09/12/18 at 18:34; Status DC Info (CONTRAST GIVEN -- Rx MONITORING) 1 each PRN DAILY PRN MC SEE COMMENTS; Start 09/12/18 at 18:45; Stop 09/14/18 at 18:44; Status DC Fentanyl Citrate (Fentanyl 2ml Vial) 50 mcg 1X ONCE IV Last administered on 05/21at 20:21; Start 09/12/18 at 20:00; Stop 09/12/18 at 20:01; Status DC Ondansetron HCl (Zofran) 4 mg PRN Q8HRS PRN IV NAUSEA/VOMITING; Start 09/12/18 at 20:30; Stop 09/13/18 at 20:29; Status DC Morphine Sulfate (Morphine Sulfate) 4 mg PRN Q2HR PRN IV PAIN Last administered on 09/13/18 10:20; Start 09/12/18 at 20:30; Stop 09/13/18 at 20:29 ; Status DC Metronidazole 100 ml @ 100 mls/hr Q8HRS IV Last administered on 09/15/18 05: 49; Start 09/12/18 at 22:00 Ciprofloxacin/ Dextrose 200 ml @ 200 mls/hr 1X ONCE IV Last administered on 22:51; Start 09/12/18 at 20:30; Stop 09/12/18 at 21:29; Status DC Sodium Chloride 1,000 ml @ 75 mls/hr 1X ONCE IV Last administered on 22:51; Start 09/12/18 at 20:30; Stop 09/13/18 at 09:49; Status DC Budesonide (Pulmicort) 0.5 mg RTBID NEB Last administered on 09/15/18 08:10; Start 09/13/18 at 09:30 Albuterol/ Ipratropium (Duoneb) 3 ml RTQID NEB Last administered on 09/15/18 08:10; Start 09/13/18 at 09:30 Methylprednisolone Sodium Succinate (SOLU-Medrol 40MG VIAL) 20 mg DAILY IV Last administered on 09/13/18 10:21; Start 09/13/18 at 10:00; Stop 09/14/18 at 12:55; Status DC Pantoprazole Sodium (PROTONIX VIAL for IV PUSH) 40 mg DAILYAC IVP Last administered on 09/14/18 06:27; Start 09/13/18 at 10:00 Enoxaparin Sodium (Lovenox 40mg Syringe) 40 mg Q24H SQ Last administered on 13:46; Start 09/13/18 at 10:00 Metoprolol Tartrate (Lopressor Vial) 5 mg Q6HRS IVP Last administered on 13:44; Start 09/13/18 at 14:00 Potassium Chloride/Water 100 ml @ 100 mls/hr Q1H IV Last administered on at 17:10; Start 09/13/18 at 14:00; Stop 09/13/18 at 17:59; Status DC Throat Lozenges (Chloraseptic) 1 spray PRN Q2HR PRN PO SORE THROAT Last administered on 09/14/18at 13:47; Start 09/13/18 at 16:45 Throat Lozenges (Cepacol Sore Throat Lozenge) 1 deinz PRN Q2HRS PRN PO SORE THROAT Last administered on 09/14/18at 13:46; Start 09/13/18 at 16:45 Aspirin (Aspirin) 300 mg DAILY MD ; Start 09/14/18 at 09:00 Morphine Sulfate (Morphine Sulfate) 4 mg PRN Q2HR PRN IV PAIN Last administered on 09/14/18at 06:37; Start 09/13/18 at 21:15 Barium Sulfate (E-Z-Hd) 680 gm 1X ONCE PO ; Start 09/14/18 at 08:00; Stop 09/14 at 08:01; Status DC Iohexol (Omnipaque 300 Mg/ml) 400 ml 1X ONCE PO Last administered on at 08:00; Start 09/14/18 at 08:00; Stop 09/14/18 at 08:01; Status DC Info (CONTRAST GIVEN -- Rx MONITORING) 1 each PRN DAILY PRN MC SEE COMMENTS; Start 09/14/18 at 08:00; Stop 09/16/18 at 07:59 Potassium Chloride/Water 100 ml @ 100 mls/hr Q1H IV ; Start 09/14/18 at 09:00; Stop 09/14/18 at 12:59; Status DC Methylprednisolone Sodium Succinate (SOLU-Medrol 125MG VIAL) 125 mg DAILY IV ; Start 09/15/18 at 09:00 Info (Tpn Per Pharmacy) 1 each PRN DAILY PRN MC SEE COMMENTS Last administered on 09/14/18at 13:51; Start 09/14/18 at 13:30; Stop 09/14/18 at 14:27; Status DC Info (Tpn Per Pharmacy) 1 each PRN DAILY PRN MC SEE COMMENTS; Start 09/15/18 at 14:30 Amino Acids/ Glycerin/ Electrolytes 1,000 ml @ 80 mls/hr [id number] IV Last administered on 09/15/18at 03:32; Start 09/14/18 at 14:30 Cefazolin Sodium/ Dextrose 50 ml @ 100 mls/hr 1X PREOP PRN IV protocol Last administered on 09/14/18at 17:40; Start 09/15/18 at 06:00; Stop 09/15/18 at 18:00 Metronidazole 100 ml @ 100 mls/hr 1X PREOP PRN IV protocol; Start 09/15/18 at 06:00; Stop 09/15/18 at 18:00 Ondansetron HCl (Zofran) 4 mg PRN Q6HRS PRN IV NAUSEA/VOMITING; Start 09/14/18 at 16:00; Stop 09/15/18 at 01:45; Status DC Fentanyl Citrate (Fentanyl 2ml Vial) 25 mcg PRN Q5MIN PRN IV MILD PAIN; Start 09/14/18 at 16:00; Stop 09/15/18 at 01:40; Status DC Fentanyl Citrate (Fentanyl 2ml Vial) 50 mcg PRN Q5MIN PRN IV MODERATE TO SEVERE PAIN Last administered on 09/14/18at 20:27; Start 09/14/18 at 16:00; Stop 09/15/18 at 01:40; Status DC Morphine Sulfate (Morphine Sulfate) 1 mg PRN Q10MIN PRN IV SEVERE PAIN Last administered on 09/14/18at 21:51; Start 09/14/18 at 16:00; Stop 09/15/18 at 01:40 ; Status DC Ringer's Solution 1,000 ml @ 30 mls/hr Q24H IV Last administered on 09/14/18at 21:30; Start 09/14/18 at 15:52; Stop 09/15/18 at 01:40; Status DC Lidocaine HCl (Xylocaine-Mpf 1% 2ml Vial) 2 ml 1X PRN PRN ID IV START; Start at 16:00; Stop 09/15/18 at 15:59 Hydromorphone HCl (Dilaudid) 0.5 mg PRN Q10MIN PRN IV SEV PAIN, Second choice; Start 09/14/18 at 16:00; Stop 09/15/18 at 01:45; Status DC Prochlorperazine Edisylate (Compazine) 5 mg PACU PRN PRN IV NAUSEA, MRX1 Last administered on 09/14/18at 21:02; Start 09/14/18 at 16:00; Stop 09/15/18 at 01:40 ; Status DC Cefazolin Sodium/ Dextrose 50 ml @ As Directed STK-MED ONCE IV ; Start 09/14/18 at 16:08; Stop 09/14/18 at 16:09; Status DC Propofol 20 ml @ As Directed STK-MED ONCE IV ; Start 09/14/18 at 16:32; Stop 07/21 at 16:33; Status DC Dexamethasone Sodium Phosphate (Decadron) 20 mg STK-MED ONCE .ROUTE ; Start 07/21 at 16:32; Stop 09/14/18 at 16:33; Status DC Lidocaine HCl (Lidocaine Pf 2% Vial) 5 ml STK-MED ONCE .ROUTE ; Start 09/14/18 at 16:32; Stop 09/14/18 at 16:33; Status DC Ondansetron HCl (Zofran) 4 mg STK-MED ONCE .ROUTE ; Start 09/14/18 at 16:32; Stop 09/14/18 at 16:33; Status DC Succinylcholine Chloride (Anectine) 200 mg STK-MED ONCE .ROUTE ; Start 09/14/18 at 16:32; Stop 09/14/18 at 16:33; Status DC Rocuronium Sullivan (Zemuron) 50 mg STK-MED ONCE .ROUTE ; Start 09/14/18 at 16:32 ; Stop 09/14/18 at 16:33; Status DC Fentanyl Citrate (Fentanyl 2ml Vial) 100 mcg STK-MED ONCE .ROUTE ; Start at 16:32; Stop 09/14/18 at 16:33; Status DC Bupivacaine HCl/ Epinephrine Bitart (Sensorcain-Mpf Epi 0.5%-[id number]) 30 ml STK -MED ONCE .ROUTE Last administered on 09/14/18at 17:57; Start 09/14/18 at 17:18 ; Stop 09/14/18 at 17:19; Status DC Cefazolin Sodium/ Dextrose 50 ml @ As Directed STK-MED ONCE IV ; Start 09/14/18 at 17:28; Stop 09/14/18 at 17:29; Status DC Lidocaine HCl (Glydo (Lidocaine) Jelly) 6 marcel STK-MED ONCE .ROUTE ; Start at 17:43; Stop 09/14/18 at 17:44; Status DC Hydrocortisone Sodium Succinate (Solu-CORTEF) 100 mg STK-MED ONCE .ROUTE ; Start 09/14/18 at 18:08; Stop 09/14/18 at 18:09; Status DC Phenylephrine HCl (Shaw-Synephrine Inj) 10 mg STK-MED ONCE .ROUTE ; Start at 18:11; Stop 09/14/18 at 18:12; Status DC Glycopyrrolate (Robinul) 1 mg STK-MED ONCE .ROUTE ; Start 09/14/18 at 19:05; Stop 09/14/18 at 19:06; Status DC Sevoflurane (Ultane) 60 ml STK-MED ONCE IH ; Start 09/14/18 at 19:23; Stop 09/14 at 19:24; Status DC Enoxaparin Sodium (Lovenox 40mg Syringe) 30 mg Q24H SQ ; Start 09/14/18 at 19:45 ; Status UNV Sodium Chloride (Normal Saline Flush) 3 ml QSHIFT PRN IV AFTER MEDS AND BLOOD DRAWS; Start 09/14/18 at 19:45 Hydromorphone HCl 30 ml @ 0 mls/hr CONT PRN PRN IV PER PROTOCOL Last administered on 09/14/18at 20:25; Start 09/14/18 at 19:45; Stop 09/15/18 at 08:34 ; Status DC Ondansetron HCl (Zofran) 4 mg PRN Q6HRS PRN IV NAUESA, 1ST CHOICE; Start at 19:45 Ringer's Solution 1,000 ml @ 75 mls/hr [id number] IV Last administered on at 21:00; Start 09/14/18 at 21:00; Stop 09/15/18 at 01:45; Status DC Lorazepam (Ativan) 0.5 mg PRN Q6HRS PRN IV ANXIETY / AGITATION; Start 09/14/18 at 22:15 Albumin Human 250 ml @ 83.3 mls/hr 1X ONCE IV Last administered on 09/15/18at 01:15; Start 09/15/18 at 01:00; Stop 09/15/18 at 04:00; Status DC Hydromorphone HCl (Dilaudid) 0.5 mg PRN Q3HRS PRN IV PAIN; Start 09/15/18 at 08 :30 Albumin Human 500 ml @ 125 mls/hr 1X ONCE IV ; Start 09/15/18 at 09:00; Stop 09/15/18 at 12:59 Active Scripts Active Magnesium Chloride 70 Mg Tablet. 64 Mg PO DAILY 30 Days Synthroid (Levothyroxine Sodium) 88 Mcg Tablet 88 Mcg PO DAILY06 30 Days Prednisone 20 Mg Tablet 20 Mg PO DAILY 30 Days Budesonide 0.5 Mg/2 Ml Ampul.neb 0.5 Mg NEB RTBID 30 Days Diltiazem 24HR Cd (Diltiazem Hcl) 180 Mg Cap.er.24h 180 Mg PO DAILY 90 Days Prednisone (Prednisone) 10 Mg Tablet 40 Mg PO DAILY 30 Days Klor-Con 10 (Potassium Chloride) 10 Meq Tablet.er 1 Tab PO DAILY Lasix (Furosemide) 40 Mg Tablet 1 Tab PO DAILY Aspirin Ec (Aspirin) 81 Mg Tablet. 81 Mg PO DAILYWBKFT 30 Days Duoneb 0.5-3(2.5) Mg/3 Ml (Albuterol/Ipratropium) 3 Ml Ampul.neb 3 Ml NEB RTQID 30 Days Diltiazem 24HR Cd (Diltiazem Hcl) 120 Mg Cap.er.24h 120 Mg PO DAILY 30 Days Reported Hydrocodone-Apap 7.5-325 (Hydrocodone Bit/Acetaminophen) 1 Tab Tablet 1 Tab PO PRN Q6HRS PRN Prednisolone Sodium Phosphate (Prednisolone Sod Phosphate) 15 Mg/5 Ml Solution 15 Mg PO DAILY Omeprazole 40 Mg Capsule. 40 Mg PO DAILY Cartia Xt (Diltiazem Hcl) 120 Mg Cap.er.24h 120 Mg PO DAILY Wellbutrin Xl (Bupropion Hcl) 150 Mg Tab.er.24h 1 Tab PO DAILY Omeprazole 40 Mg Capsule. 1 Cap PO Vitals/I & O Vital Sign - Last 24 Hours 09/14/18 09/14/18 09/14/18 09/14/18 11:06 13:44 14:58 15:00 Temp 98.4 98.4 Pulse 100 72 84 Resp 32 18 B/P (MAP) 100/50 138/76 120/88 (99) Pulse Ox 99 96 96 O2 Delivery Nasal Cannula Room Air Room Air O2 Flow Rate 2 09/14/18 09/14/18 09/14/18 09/14/18 16:10 19:36 19:36 19:51 Temp 98.4 97.8 98.4 97.8 Pulse 89 68 68 Resp 23 20 22 B/P (MAP) 135/92 123/81 144/76 Pulse Ox 96 100 100 O2 Delivery Room Air Simple Mask Mask Simple Mask O2 Flow Rate 10 10 10 09/14/18 09/14/18 09/14/18 09/14/18 20:01 20:03 20:06 20:21 Pulse 78 78 Resp 20 20 20 22 B/P (MAP) 113/77 84/53 Pulse Ox 99 99 99 100 O2 Delivery Simple Mask Simple Mask Simple Mask Simple Mask O2 Flow Rate 10.0 10.0 10 10 09/14/18 09/14/18 09/14/18 09/14/18 20:25 20:27 20:36 20:51 Pulse 86 Resp 20 22 20 22 B/P (MAP) 128/80 Pulse Ox 99 99 100 O2 Delivery Simple Mask Simple Mask Simple Mask Nasal Cannula O2 Flow Rate 10.0 10.0 10 2.0 09/14/18 09/14/18 09/14/18 09/14/18 20:51 21:03 21:06 21:21 Temp 98.5 98.5 Pulse 96 102 102 Resp 22 24 20 36 B/P (MAP) 106/61 84/54 82/65 Pulse Ox 99 99 100 100 O2 Delivery Nasal Cannula Nasal Cannula Nasal Cannula Nasal Cannula O2 Flow Rate 2 2.0 2 2 09/14/18 09/14/18 09/14/18 09/14/18 21:36 21:51 21:51 22:06 Temp 98.0 98.0 Pulse 99 100 98 Resp 36 32 36 34 B/P (MAP) 107/76 101/64 116/58 Pulse Ox 100 100 99 99 O2 Delivery Nasal Cannula Nasal Cannula Nasal Cannula Nasal Cannula O2 Flow Rate 2 2 2.0 2 09/14/18 09/14/18 09/14/18 09/14/18 22:21 22:36 22:45 22:50 Pulse 85 36 85 Resp 36 36 40 B/P (MAP) 126/77 117/66 118/75 Pulse Ox 99 100 100 O2 Delivery Nasal Cannula Nasal Cannula Nasal Cannula Nasal Cannula O2 Flow Rate 2 2 2 2 09/14/18 09/14/18 09/15/18 09/15/18 22:50 23:00 00:00 00:00 Temp 100.5 100.5 100.5 100.5 Pulse 108 111 108 Resp 35 36 B/P (MAP) 115/65 (82) 90/68 91/59 (70) Pulse Ox 100 100 O2 Delivery Nasal Cannula Room Air Room Air O2 Flow Rate 2 09/15/18 09/15/18 09/15/18 09/15/18 00:00 01:00 02:00 03:00 Pulse 104 102 100 Resp 23 21 20 B/P (MAP) 92/64 (73) 90/63 (72) 95/64 (74) Pulse Ox 99 100 100 O2 Delivery Nasal Cannula Room Air Room Air Room Air O2 Flow Rate 2 09/15/18 09/15/18 09/15/18 09/15/18 04:00 04:00 05:00 05:46 Temp 99.2 99.2 Pulse 97 99 97 Resp 10 19 B/P (MAP) 106/72 (83) 97/65 (76) 119/77 Pulse Ox 100 100 O2 Delivery Nasal Cannula Room Air Room Air O2 Flow Rate 2 09/15/18 09/15/18 06:00 08:13 Pulse 95 Resp 17 B/P (MAP) 100/62 (75) Pulse Ox 100 100 O2 Delivery Room Air Room Air Intake and Output 09/14/18 09/14/18 09/15/18 15:00 23:00 07:00 Intake Total 0 ml 2950 ml 2935.75 ml Output Total 1150 ml 155 ml Balance 0 ml 1800 ml 2780.75 ml LOURDES POLLOCK MD Sep 15, 2018 09:24
--- NOTE | 2018-09-15 09:26 | NUR ---
SS following for discharge planning. Pt is from home with spouse and currently on room air. PT/OT ordered but no evaluations at this time. Pt has had [facility], ; fax [phone], in the past. SS will continue to follow for pending discharge needs.
[2018-09-15 09:31] LABS: % BANDS 48 % (0-9); % METAS 1 % (0-0); % MONOS 7 % (0-10); % SEGS 44 % (35-66); PLT ESTIMATE ADEQUATE (ADEQUATE)
--- NOTE | 2018-09-15 10:07 | PDOC ---
CARDIO Progress Notes Date and Time Date of Service 09/15/18 Time of Evaluation 0965 Subjective Subjective: No Chest Pain, No shortness of breath, No Palpitations, Other ( confused) Vitals Vitals Vital Signs Date Time Temp Pulse Resp B/P (MAP) Pulse Ox O2 Delivery O2 Flow Rate FiO2 09/15/18 08:13 100 Room Air 09/15/18 06:00 95 17 100/62 (75) 09/15/18 04:00 99.2 99.2 09/15/18 04:00 2 Weight Weight [ ] Input and Output Intake and Output Intake and Output 09/15/18 06:59 Intake Total 5885.75 ml Output Total 1305 ml Balance 4580.75 ml Intake Oral 0 ml IV Total 5885.75 ml Output Urine Total 905 ml Gastric Drainage Total 350 ml Estimated Blood Loss 50 ml Laboratory Labs Laboratory Tests Test 09/14/18 14:50 09/14/18 21:42 09/15/18 04:25 White Blood Count 10.7 x10^3/uL (4.0-11.0) 15.2 x10^3/uL (4.0-11.0) Red Blood Count 4.10 x10^6/uL (4.30-5.70) 4.18 x10^6/uL (4.30-5.70) Hemoglobin 13.1 g/dL (13.0-17.5) 13.1 g/dL (13.0-17.5) Hematocrit 39.2 % (39.0-53.0) 40.3 % (39.0-53.0) Mean Corpuscular Volume 96 fL (79-100) 96 fL (79-100) Mean Corpuscular Hemoglobin 32 pg (25-35) 31 pg (25-35) Mean Corpuscular Hemoglobin Concent 34 g/dL (31-37) 33 g/dL (31-37) Red Cell Distribution Width 14.3 % (11.5-14.5) 14.3 % (11.5-14.5) Platelet Count 266 x10^3/uL (140-400) 219 x10^3/uL (140-400) Neutrophils (%) (Auto) 80 % (31-73) 94 % (31-73) Lymphocytes (%) (Auto) 8 % (24-48) 2 % (24-48) Monocytes (%) (Auto) 12 % (0-9) 5 % (0-9) Eosinophils (%) (Auto) 0 % (0-3) 0 % (0-3) Basophils (%) (Auto) 0 % (0-3) 0 % (0-3) Neutrophils # (Auto) 8.5 x10^3uL (1.8-7.7) 14.2 x10^3uL (1.8-7.7) Lymphocytes # (Auto) 0.9 x10^3/uL (1.0-4.8) 0.3 x10^3/uL (1.0-4.8) Monocytes # (Auto) 1.2 x10^3/uL (0.0-1.1) 0.7 x10^3/uL (0.0-1.1) Eosinophils # (Auto) 0.0 x10^3/uL (0.0-0.7) 0.0 x10^3/uL (0.0-0.7) Basophils # (Auto) 0.0 x10^3/uL (0.0-0.2) 0.0 x10^3/uL (0.0-0.2) Sodium Level 147 mmol/L (136-145) 147 mmol/L (136-145) Potassium Level 3.7 mmol/L (3.5-5.1) 3.6 mmol/L (3.5-5.1) Chloride Level 106 mmol/L (98-107) 107 mmol/L (98-107) Carbon Dioxide Level 27 mmol/L (21-32) 19 mmol/L (21-32) Anion Gap 14 (6-14) 21 (6-14) Blood Urea Nitrogen 28 mg/dL (8-26) 32 mg/dL (8-26) Creatinine 1.0 mg/dL (0.7-1.3) 1.6 mg/dL (0.7-1.3) Estimated GFR (Cockcroft-Gault) 72.6 42.2 BUN/Creatinine Ratio 28 (6-20) Glucose Level 82 mg/dL (70-99) 142 mg/dL (70-99) Calcium Level 9.5 mg/dL (8.5-10.1) 8.8 mg/dL (8.5-10.1) Phosphorus Level 3.1 mg/dL (2.6-4.7) 5.2 mg/dL (2.6-4.7) Total Bilirubin 0.8 mg/dL (0.2-1.0) Aspartate Amino Transf (AST/SGOT) 15 U/L (15-37) Alanine Aminotransferase (ALT/SGPT) 13 U/L (16-63) Alkaline Phosphatase 70 U/L (46-116) Total Protein 6.5 g/dL (6.4-8.2) Albumin 2.9 g/dL (3.4-5.0) Albumin/Globulin Ratio 0.8 (1.0-1.7) O2 Saturation 97 % (92-99) Arterial Blood pH 7.39 (7.35-7.45) Arterial Blood pCO2 at Patient Temp 30 mmHg (35-46) Arterial Blood pO2 at Patient Temp 101 mmHg (65-108) Arterial Blood HCO3 18 mmol/L (21-28) Arterial Blood Base Excess -6 mmol/L (-3-3) FiO2 28 Segmented Neutrophils % 44 % (35-66) Band Neutrophils % 48 % (0-9) Monocytes % 7 % (0-10) Metamyelocytes % 1 % (0-0) Platelet Estimate Adequate (ADEQUATE) Giant Platelets Present Magnesium Level 1.9 mg/dL (1.8-2.4) Physical Exam HEENT: Neck Supple W Full Motion Chest: Symmetric LUNGS: Clear to Auscultation, Other (diminished bases) Heart: S1S2, RRR (SR/ST with intermittent PAFIB) Abdomen: Other (left nare NGT, Abdominal DRSG CDI) Extremities: No Edema, No Calf Tenderness Neurology: alert, confused, other (drowsy) Assessment Assessment 1. SBO; NGT for decompression. S/p open laparotomy, SBO release and decompression. 2. PAFIB; maintaining SR/ST, but having intermittent PAFIB. Oral Cardizem held secondary to SBO 3. Chronic diastolic heart failure: WM nml and EF 55-60%. Compensated clinically 4. Hypertension: controlled 5. Hyperlipidemia 6. COPD/ILD 7. Hypothyroidism: On levothyroxine. TSH 12.631 (08/26/2018) as per PCP 8. ALBERT; post surgery. continue fluids Recommendations Continue with IV metoprolol while NPO ASA for stroke prophylaxis Lasix as warranted Supportive care from a CV standpoint JOSE HIGHTOWER APRN Sep 15, 2018 10:06
[2018-09-15] MEDS: ENOXAPARIN 40 MG/0.4 ML SYRINGE. SQ SCH (10:19)
[2018-09-15] MEDS: ASPIRIN RECTAL 300 MG SUPP. PR SCH (10:19)
[2018-09-15] MEDS: methylPREDNISolone SOD SUCC PF 125 MG/2 ML VIAL. IV SCH (10:19)
[2018-09-15] MEDS: PANTOPRAZOLE IV PUSH 40 MG VIAL. IVP SCH (10:20)
--- NOTE | 2018-09-15 10:47 | PDOC ---
SURGICAL PROGRESS NOTE Subjective sleepy awakens and responds to questions Vital Signs Vital Signs Date Time Temp Pulse Resp B/P (MAP) Pulse Ox O2 Delivery O2 Flow Rate FiO2 09/15/18 08:13 100 Room Air 09/15/18 06:00 95 17 100/62 (75) 09/15/18 04:00 99.2 99.2 09/15/18 04:00 2 I&O Intake and Output 09/15/18 06:59 Intake Total 5885.75 ml Output Total 1305 ml Balance 4580.75 ml Intake Oral 0 ml IV Total 5885.75 ml Output Urine Total 905 ml Gastric Drainage Total 350 ml Estimated Blood Loss 50 ml UO down PATIENT HAS A DELCID: Yes HEENT: Other (NG in place with bilious return) Abdomen: Soft Labs Laboratory Tests Test 09/13/18 22:30 09/14/18 14:50 09/14/18 21:42 09/15/18 04:25 Urine Collection Type Unknown Urine Color Frances Urine Clarity Clear Urine pH 5.5 Urine Specific Alexander >=1.030 Urine Protein 30 mg/dL (NEG-TRACE) Urine Glucose (UA) Negative mg/dL (NEG) Urine Ketones (Stick) 15 mg/dL (NEG) Urine Blood Negative (NEG) Urine Nitrite Negative (NEG) Urine Bilirubin Small (NEG) Urine Urobilinogen Dipstick 0.2 mg/dL (0.2 mg/dL) Urine Leukocyte Esterase Negative (NEG) Urine RBC Occ /HPF (0-2) Urine WBC Occ /HPF (0-4) Urine Bacteria 0 /HPF (0-FEW) Urine Hyaline Casts Occasional /HPF Urine Opiates Screen Pos (NEG) Urine Methadone Screen Neg (NEG) Urine Barbiturates Neg (NEG) Urine Phencyclidine Screen Neg (NEG) Urine Amphetamine/Methamphetamine Neg (NEG) Urine Benzodiazepines Screen Neg (NEG) Urine Cocaine Screen Neg (NEG) Urine Cannabinoids Screen Neg (NEG) Urine Ethyl Alcohol Neg (NEG) White Blood Count 10.7 x10^3/uL (4.0-11.0) 15.2 x10^3/uL (4.0-11.0) Red Blood Count 4.10 x10^6/uL (4.30-5.70) 4.18 x10^6/uL (4.30-5.70) Hemoglobin 13.1 g/dL (13.0-17.5) 13.1 g/dL (13.0-17.5) Hematocrit 39.2 % (39.0-53.0) 40.3 % (39.0-53.0) Mean Corpuscular Volume 96 fL (79-100) 96 fL (79-100) Mean Corpuscular Hemoglobin 32 pg (25-35) 31 pg (25-35) Mean Corpuscular Hemoglobin Concent 34 g/dL (31-37) 33 g/dL (31-37) Red Cell Distribution Width 14.3 % (11.5-14.5) 14.3 % (11.5-14.5) Platelet Count 266 x10^3/uL (140-400) 219 x10^3/uL (140-400) Neutrophils (%) (Auto) 80 % (31-73) 94 % (31-73) Lymphocytes (%) (Auto) 8 % (24-48) 2 % (24-48) Monocytes (%) (Auto) 12 % (0-9) 5 % (0-9) Eosinophils (%) (Auto) 0 % (0-3) 0 % (0-3) Basophils (%) (Auto) 0 % (0-3) 0 % (0-3) Neutrophils # (Auto) 8.5 x10^3uL (1.8-7.7) 14.2 x10^3uL (1.8-7.7) Lymphocytes # (Auto) 0.9 x10^3/uL (1.0-4.8) 0.3 x10^3/uL (1.0-4.8) Monocytes # (Auto) 1.2 x10^3/uL (0.0-1.1) 0.7 x10^3/uL (0.0-1.1) Eosinophils # (Auto) 0.0 x10^3/uL (0.0-0.7) 0.0 x10^3/uL (0.0-0.7) Basophils # (Auto) 0.0 x10^3/uL (0.0-0.2) 0.0 x10^3/uL (0.0-0.2) Sodium Level 147 mmol/L (136-145) 147 mmol/L (136-145) Potassium Level 3.7 mmol/L (3.5-5.1) 3.6 mmol/L (3.5-5.1) Chloride Level 106 mmol/L (98-107) 107 mmol/L (98-107) Carbon Dioxide Level 27 mmol/L (21-32) 19 mmol/L (21-32) Anion Gap 14 (6-14) 21 (6-14) Blood Urea Nitrogen 28 mg/dL (8-26) 32 mg/dL (8-26) Creatinine 1.0 mg/dL (0.7-1.3) 1.6 mg/dL (0.7-1.3) Estimated GFR (Cockcroft-Gault) 72.6 42.2 BUN/Creatinine Ratio 28 (6-20) Glucose Level 82 mg/dL (70-99) 142 mg/dL (70-99) Calcium Level 9.5 mg/dL (8.5-10.1) 8.8 mg/dL (8.5-10.1) Phosphorus Level 3.1 mg/dL (2.6-4.7) 5.2 mg/dL (2.6-4.7) Total Bilirubin 0.8 mg/dL (0.2-1.0) Aspartate Amino Transf (AST/SGOT) 15 U/L (15-37) Alanine Aminotransferase (ALT/SGPT) 13 U/L (16-63) Alkaline Phosphatase 70 U/L (46-116) Total Protein 6.5 g/dL (6.4-8.2) Albumin 2.9 g/dL (3.4-5.0) Albumin/Globulin Ratio 0.8 (1.0-1.7) O2 Saturation 97 % (92-99) Arterial Blood pH 7.39 (7.35-7.45) Arterial Blood pCO2 at Patient Temp 30 mmHg (35-46) Arterial Blood pO2 at Patient Temp 101 mmHg (65-108) Arterial Blood HCO3 18 mmol/L (21-28) Arterial Blood Base Excess -6 mmol/L (-3-3) FiO2 28 Segmented Neutrophils % 44 % (35-66) Band Neutrophils % 48 % (0-9) Monocytes % 7 % (0-10) Metamyelocytes % 1 % (0-0) Platelet Estimate Adequate (ADEQUATE) Giant Platelets Present Magnesium Level 1.9 mg/dL (1.8-2.4) Laboratory Tests Test 09/14/18 14:50 09/14/18 21:42 09/15/18 04:25 White Blood Count 10.7 x10^3/uL (4.0-11.0) 15.2 x10^3/uL (4.0-11.0) Red Blood Count 4.10 x10^6/uL (4.30-5.70) 4.18 x10^6/uL (4.30-5.70) Hemoglobin 13.1 g/dL (13.0-17.5) 13.1 g/dL (13.0-17.5) Hematocrit 39.2 % (39.0-53.0) 40.3 % (39.0-53.0) Mean Corpuscular Volume 96 fL (79-100) 96 fL (79-100) Mean Corpuscular Hemoglobin 32 pg (25-35) 31 pg (25-35) Mean Corpuscular Hemoglobin Concent 34 g/dL (31-37) 33 g/dL (31-37) Red Cell Distribution Width 14.3 % (11.5-14.5) 14.3 % (11.5-14.5) Platelet Count 266 x10^3/uL (140-400) 219 x10^3/uL (140-400) Neutrophils (%) (Auto) 80 % (31-73) 94 % (31-73) Lymphocytes (%) (Auto) 8 % (24-48) 2 % (24-48) Monocytes (%) (Auto) 12 % (0-9) 5 % (0-9) Eosinophils (%) (Auto) 0 % (0-3) 0 % (0-3) Basophils (%) (Auto) 0 % (0-3) 0 % (0-3) Neutrophils # (Auto) 8.5 x10^3uL (1.8-7.7) 14.2 x10^3uL (1.8-7.7) Lymphocytes # (Auto) 0.9 x10^3/uL (1.0-4.8) 0.3 x10^3/uL (1.0-4.8) Monocytes # (Auto) 1.2 x10^3/uL (0.0-1.1) 0.7 x10^3/uL (0.0-1.1) Eosinophils # (Auto) 0.0 x10^3/uL (0.0-0.7) 0.0 x10^3/uL (0.0-0.7) Basophils # (Auto) 0.0 x10^3/uL (0.0-0.2) 0.0 x10^3/uL (0.0-0.2) Sodium Level 147 mmol/L (136-145) 147 mmol/L (136-145) Potassium Level 3.7 mmol/L (3.5-5.1) 3.6 mmol/L (3.5-5.1) Chloride Level 106 mmol/L (98-107) 107 mmol/L (98-107) Carbon Dioxide Level 27 mmol/L (21-32) 19 mmol/L (21-32) Anion Gap 14 (6-14) 21 (6-14) Blood Urea Nitrogen 28 mg/dL (8-26) 32 mg/dL (8-26) Creatinine 1.0 mg/dL (0.7-1.3) 1.6 mg/dL (0.7-1.3) Estimated GFR (Cockcroft-Gault) 72.6 42.2 BUN/Creatinine Ratio 28 (6-20) Glucose Level 82 mg/dL (70-99) 142 mg/dL (70-99) Calcium Level 9.5 mg/dL (8.5-10.1) 8.8 mg/dL (8.5-10.1) Phosphorus Level 3.1 mg/dL (2.6-4.7) 5.2 mg/dL (2.6-4.7) Total Bilirubin 0.8 mg/dL (0.2-1.0) Aspartate Amino Transf (AST/SGOT) 15 U/L (15-37) Alanine Aminotransferase (ALT/SGPT) 13 U/L (16-63) Alkaline Phosphatase 70 U/L (46-116) Total Protein 6.5 g/dL (6.4-8.2) Albumin 2.9 g/dL (3.4-5.0) Albumin/Globulin Ratio 0.8 (1.0-1.7) O2 Saturation 97 % (92-99) Arterial Blood pH 7.39 (7.35-7.45) Arterial Blood pCO2 at Patient Temp 30 mmHg (35-46) Arterial Blood pO2 at Patient Temp 101 mmHg (65-108) Arterial Blood HCO3 18 mmol/L (21-28) Arterial Blood Base Excess -6 mmol/L (-3-3) FiO2 28 Segmented Neutrophils % 44 % (35-66) Band Neutrophils % 48 % (0-9) Monocytes % 7 % (0-10) Metamyelocytes % 1 % (0-0) Platelet Estimate Adequate (ADEQUATE) Giant Platelets Present Magnesium Level 1.9 mg/dL (1.8-2.4) Problem List Problems Medical Problems: (1) Generalized weakness Status: Acute Assessment/Plan POD 1 ex lap. KAYLA Cr up a little continue supportive care follow labs SHAKEEL SOMMER MD Sep 15, 2018 10:47
[2018-09-15] MEDS ORDERED: IV NORMAL SALINE 250ML 250 ML IV ONE (11:00)
--- NOTE | 2018-09-15 11:19 | OP ---
DATE OF SURGERY: 09/14/2018 PREOPERATIVE DIAGNOSIS: Small bowel obstruction. POSTOPERATIVE DIAGNOSIS: Small bowel obstruction, secondary to adhesive band. PROCEDURE: Diagnostic laparoscopy, followed by laparotomy with release of small-bowel obstruction and decompression of the small bowel. SURGEON: Kuldip Sommer MD CHEMICAL ENGINEER: ALAINA Hu ANESTHESIA: General endotracheal. ESTIMATED BLOOD LOSS: 50. INTRAVENOUS FLUIDS: 1500. URINE OUTPUT: 300. INDICATIONS: The patient is a 78-year-old who presented with a small-bowel obstruction that did not improve with conservative measures (gut rest, NG decompression), brought for exploration. OPERATIVE FINDINGS: A tight adhesive band in the right lower quadrant was creating a near complete obstruction of the small bowel. DESCRIPTION OF PROCEDURE: The patient was brought to the operating suite, given a general endotracheal anesthetic. Coronado catheter placed to dependent drainage, and the abdomen prepped and draped in usual sterile fashion. An upper abdominal midline incision was infiltrated with local anesthetic, incised and a 5 mm Visiport attempted to be placed in the abdomen. This revealed markedly distended bowel with adhesions, and as such, we abandoned the laparoscopy and converted to an open procedure. Midline incision created, abdomen carefully entered and the abdomen explored. The small bowel injury from attempted port placement was closed with a 3-0 chromic, followed by imbrication with interrupted 3-0 Vicryl. The small bowel was followed down to the point of obstruction, which was divided between clamps and ligated. This allowed evaluation of the small bowel in its entirety. This showed some serosal tears from distention and friability of the tissue, but no evidence of enterotomy was seen. A pursestring stitch of 3-0 Vicryl was placed on the antimesenteric border of the distal obstructive small bowel. Small enterotomy made and an NG tube passed retrograde to decompress a large amount of air and succuss from the proximal small bowel. When this was complete, the pursestring was tied and the area imbricated with interrupted 3-0 Vicryl suture. Gloves were changed and the small bowel was run from ligament of Treitz to ileocecal valve. Areas of serosal injury repaired with interrupted 3-0 Vicryl suture. No enterotomies were seen. The abdomen was then irrigated with saline, checked for hemostasis. When present and a correct sponge count was obtained, the midline incision was closed in a single layer using looped 0 PDS in running fashion, tied in the middle. Skin closed with mya. Sterile dressing applied. Postop foreign body film was negative for unexplained foreign body. The patient was awakened from his anesthetic and taken to the recovery room in stable, but guarded condition. KULDIP SOMMER MD DR: CHRISSY/ralph JOB#: [id number] / [id number]
[2018-09-15] MEDS: IV NORMAL SALINE 1000ML BAG 1,000 ML IV SCH ×3 (11:30→21:05)
--- NOTE | 2018-09-15 11:39 | PDOC2 ---
CONSULT Date of Consult Date of Consult DATE: 09/15/18 TIME: 11:35 Reason for Consult Reason for Consult: ALBERT Referring Physician Referring Physician: MARIS Identification/Chief Complaint Chief Complaint ABD PAIN Source Source: Chart review History of Present Illness Reason for Visit: THIS IS A 78 YR OLD WITH ABD PAIN AND SBO. CONSERVATIVE MANAGEMENT DID NOT WORK AND SO HE UNDERWENT SURGICAL CORRECTION LAST NIGHT. THIS AM SLIGHTLY HYPOTENSIVE AND NOTED TO HAVE ALBERT WITH CR OF 1.6. MILD HYPERNATREMIA AND HYPOKALEMIA ALSO NOTED. NO CKD NOTED. DELCID IN PLACE. NO OTHER HX NOTED Past Medical History Cardiovascular: AFIB, HTN, Hyperlipidemia, Other Pulmonary: COPD CENTRAL NERVOUS SYSTEM: Other GI: GERD, Other Heme/Onc: Cancer Hepatobiliary: Hep A/B/C Psych: Anxiety Musculoskeletal: low back pain, Osteoarthritis Rheumatologic: No pertinent hx Infectious disease: No pertinent hx Renal/: No pertinent hx, Prostate Ca. Endocrine: No pertinent hx, Hypothyroidism Past Surgical History Past Surgical History: Appendectomy, Tonsillectomy, Other Family History Family History: Other (noncontributory ) Social History No ALCOHOL: occassional Drugs: None Lives: Alone Current Problem List Problem List Problems Medical Problems: (1) Generalized weakness Status: Acute Current Medications Current Medications Current Medications Famotidine (Pepcid Vial) 20 mg 1X ONCE IVP Last administered on 09/12/18at 18: 07; Start 09/12/18 at 17:45; Stop 09/12/18 at 17:46; Status DC Ondansetron HCl (Zofran) 4 mg 1X ONCE IV Last administered on 09/12/18at 18:07 ; Start 09/12/18 at 17:45; Stop 09/12/18 at 17:46; Status DC Iohexol (Omnipaque 300 Mg/ml) 75 ml 1X ONCE IV Last administered on 09/12/18at 18:35; Start 09/12/18 at 18:30; Stop 09/12/18 at 18:34; Status DC Info (CONTRAST GIVEN -- Rx MONITORING) 1 each PRN DAILY PRN MC SEE COMMENTS; Start 09/12/18 at 18:45; Stop 09/14/18 at 18:44; Status DC Fentanyl Citrate (Fentanyl 2ml Vial) 50 mcg 1X ONCE IV Last administered on 05/21at 20:21; Start 09/12/18 at 20:00; Stop 09/12/18 at 20:01; Status DC Ondansetron HCl (Zofran) 4 mg PRN Q8HRS PRN IV NAUSEA/VOMITING; Start 09/12/18 at 20:30; Stop 09/13/18 at 20:29; Status DC Morphine Sulfate (Morphine Sulfate) 4 mg PRN Q2HR PRN IV PAIN Last administered on 09/13/18at 10:20; Start 09/12/18 at 20:30; Stop 09/13/18 at 20:29 ; Status DC Metronidazole 100 ml @ 100 mls/hr Q8HRS IV Last administered on 09/15/18at 05: 49; Start 09/12/18 at 22:00 Ciprofloxacin/ Dextrose 200 ml @ 200 mls/hr 1X ONCE IV Last administered on at 22:51; Start 09/12/18 at 20:30; Stop 09/12/18 at 21:29; Status DC Sodium Chloride 1,000 ml @ 75 mls/hr 1X ONCE IV Last administered on at 22:51; Start 09/12/18 at 20:30; Stop 09/13/18 at 09:49; Status DC Budesonide (Pulmicort) 0.5 mg RTBID NEB Last administered on 09/15/18at 08:10; Start 09/13/18 at 09:30 Albuterol/ Ipratropium (Duoneb) 3 ml RTQID NEB Last administered on 09/15/18at 08:10; Start 09/13/18 at 09:30 Methylprednisolone Sodium Succinate (SOLU-Medrol 40MG VIAL) 20 mg DAILY IV Last administered on 09/13/18at 10:21; Start 09/13/18 at 10:00; Stop 09/14/18 at 12:55; Status DC Pantoprazole Sodium (PROTONIX VIAL for IV PUSH) 40 mg DAILYAC IVP Last administered on 09/15/18at 10:20; Start 09/13/18 at 10:00 Enoxaparin Sodium (Lovenox 40mg Syringe) 40 mg Q24H SQ Last administered on at 10:19; Start 09/13/18 at 10:00 Metoprolol Tartrate (Lopressor Vial) 5 mg Q6HRS IVP Last administered on at 11:17; Start 09/13/18 at 14:00 Potassium Chloride/Water 100 ml @ 100 mls/hr Q1H IV Last administered on at 17:10; Start 09/13/18 at 14:00; Stop 09/13/18 at 17:59; Status DC Throat Lozenges (Chloraseptic) 1 spray PRN Q2HR PRN PO SORE THROAT Last administered on 09/14/18at 13:47; Start 09/13/18 at 16:45 Throat Lozenges (Cepacol Sore Throat Lozenge) 1 deniz PRN Q2HRS PRN PO SORE THROAT Last administered on 09/14/18at 13:46; Start 09/13/18 at 16:45 Aspirin (Aspirin) 300 mg DAILY FL Last administered on 09/15/18at 10:19; Start 09/14/18 at 09:00 Morphine Sulfate (Morphine Sulfate) 4 mg PRN Q2HR PRN IV PAIN Last administered on 09/14/18at 06:37; Start 09/13/18 at 21:15 Barium Sulfate (E-Z-Hd) 680 gm 1X ONCE PO ; Start 09/14/18 at 08:00; Stop 09/14 at 08:01; Status DC Iohexol (Omnipaque 300 Mg/ml) 400 ml 1X ONCE PO Last administered on at 08:00; Start 09/14/18 at 08:00; Stop 09/14/18 at 08:01; Status DC Info (CONTRAST GIVEN -- Rx MONITORING) 1 each PRN DAILY PRN MC SEE COMMENTS; Start 09/14/18 at 08:00; Stop 09/16/18 at 07:59 Potassium Chloride/Water 100 ml @ 100 mls/hr Q1H IV ; Start 09/14/18 at 09:00; Stop 09/14/18 at 12:59; Status DC Methylprednisolone Sodium Succinate (SOLU-Medrol 125MG VIAL) 125 mg DAILY IV Last administered on 09/15/18at 10:19; Start 09/15/18 at 09:00 Info (Tpn Per Pharmacy) 1 each PRN DAILY PRN MC SEE COMMENTS Last administered on 09/14/18at 13:51; Start 09/14/18 at 13:30; Stop 09/14/18 at 14:27; Status DC Info (Tpn Per Pharmacy) 1 each PRN DAILY PRN MC SEE COMMENTS; Start 09/15/18 at 14:30 Amino Acids/ Glycerin/ Electrolytes 1,000 ml @ 80 mls/hr [id number] IV Last administered on 09/15/18at 03:32; Start 09/14/18 at 14:30 Cefazolin Sodium/ Dextrose 50 ml @ 100 mls/hr 1X PREOP PRN IV protocol Last administered on 09/14/18at 17:40; Start 09/15/18 at 06:00; Stop 09/15/18 at 18:00 Metronidazole 100 ml @ 100 mls/hr 1X PREOP PRN IV protocol; Start 09/15/18 at 06:00; Stop 09/15/18 at 18:00 Ondansetron HCl (Zofran) 4 mg PRN Q6HRS PRN IV NAUSEA/VOMITING; Start 09/14/18 at 16:00; Stop 09/15/18 at 01:45; Status DC Fentanyl Citrate (Fentanyl 2ml Vial) 25 mcg PRN Q5MIN PRN IV MILD PAIN; Start 09/14/18 at 16:00; Stop 09/15/18 at 01:40; Status DC Fentanyl Citrate (Fentanyl 2ml Vial) 50 mcg PRN Q5MIN PRN IV MODERATE TO SEVERE PAIN Last administered on 09/14/18at 20:27; Start 09/14/18 at 16:00; Stop 09/15/18 at 01:40; Status DC Morphine Sulfate (Morphine Sulfate) 1 mg PRN Q10MIN PRN IV SEVERE PAIN Last administered on 09/14/18at 21:51; Start 09/14/18 at 16:00; Stop 09/15/18 at 01:40 ; Status DC Ringer's Solution 1,000 ml @ 30 mls/hr Q24H IV Last administered on 09/14/18at 21:30; Start 09/14/18 at 15:52; Stop 09/15/18 at 01:40; Status DC Lidocaine HCl (Xylocaine-Mpf 1% 2ml Vial) 2 ml 1X PRN PRN ID IV START; Start at 16:00; Stop 09/15/18 at 15:59 Hydromorphone HCl (Dilaudid) 0.5 mg PRN Q10MIN PRN IV SEV PAIN, Second choice; Start 09/14/18 at 16:00; Stop 09/15/18 at 01:45; Status DC Prochlorperazine Edisylate (Compazine) 5 mg PACU PRN PRN IV NAUSEA, MRX1 Last administered on 09/14/18at 21:02; Start 09/14/18 at 16:00; Stop 09/15/18 at 01:40 ; Status DC Cefazolin Sodium/ Dextrose 50 ml @ As Directed STK-MED ONCE IV ; Start 09/14/18 at 16:08; Stop 09/14/18 at 16:09; Status DC Propofol 20 ml @ As Directed STK-MED ONCE IV ; Start 09/14/18 at 16:32; Stop 07/21 at 16:33; Status DC Dexamethasone Sodium Phosphate (Decadron) 20 mg STK-MED ONCE .ROUTE ; Start 07/21 at 16:32; Stop 09/14/18 at 16:33; Status DC Lidocaine HCl (Lidocaine Pf 2% Vial) 5 ml STK-MED ONCE .ROUTE ; Start 09/14/18 at 16:32; Stop 09/14/18 at 16:33; Status DC Ondansetron HCl (Zofran) 4 mg STK-MED ONCE .ROUTE ; Start 09/14/18 at 16:32; Stop 09/14/18 at 16:33; Status DC Succinylcholine Chloride (Anectine) 200 mg STK-MED ONCE .ROUTE ; Start 09/14/18 at 16:32; Stop 09/14/18 at 16:33; Status DC Rocuronium [place] (Zemuron) 50 mg STK-MED ONCE .ROUTE ; Start 09/14/18 at 16:32 ; Stop 09/14/18 at 16:33; Status DC Fentanyl Citrate (Fentanyl 2ml Vial) 100 mcg STK-MED ONCE .ROUTE ; Start at 16:32; Stop 09/14/18 at 16:33; Status DC Bupivacaine HCl/ Epinephrine Bitart (Sensorcain-Mpf Epi 0.5%-[id number]) 30 ml STK -MED ONCE .ROUTE Last administered on 09/14/18at 17:57; Start 09/14/18 at 17:18 ; Stop 09/14/18 at 17:19; Status DC Cefazolin Sodium/ Dextrose 50 ml @ As Directed STK-MED ONCE IV ; Start 09/14/18 at 17:28; Stop 09/14/18 at 17:29; Status DC Lidocaine HCl (Glydo (Lidocaine) Jelly) 6 marcel STK-MED ONCE .ROUTE ; Start at 17:43; Stop 09/14/18 at 17:44; Status DC Hydrocortisone Sodium Succinate (Solu-CORTEF) 100 mg STK-MED ONCE .ROUTE ; Start 09/14/18 at 18:08; Stop 09/14/18 at 18:09; Status DC Phenylephrine HCl (Shaw-Synephrine Inj) 10 mg STK-MED ONCE .ROUTE ; Start at 18:11; Stop 09/14/18 at 18:12; Status DC Glycopyrrolate (Robinul) 1 mg STK-MED ONCE .ROUTE ; Start 09/14/18 at 19:05; Stop 09/14/18 at 19:06; Status DC Sevoflurane (Ultane) 60 ml STK-MED ONCE IH ; Start 09/14/18 at 19:23; Stop 09/14 at 19:24; Status DC Enoxaparin Sodium (Lovenox 40mg Syringe) 30 mg Q24H SQ ; Start 09/14/18 at 19:45 ; Status UNV Sodium Chloride (Normal Saline Flush) 3 ml QSHIFT PRN IV AFTER MEDS AND BLOOD DRAWS; Start 09/14/18 at 19:45 Hydromorphone HCl 30 ml @ 0 mls/hr CONT PRN PRN IV PER PROTOCOL Last administered on 09/14/18at 20:25; Start 09/14/18 at 19:45; Stop 09/15/18 at 08:34 ; Status DC Ondansetron HCl (Zofran) 4 mg PRN Q6HRS PRN IV NAUESA, 1ST CHOICE; Start at 19:45 Ringer's Solution 1,000 ml @ 75 mls/hr [id number] IV Last administered on at 21:00; Start 09/14/18 at 21:00; Stop 09/15/18 at 01:45; Status DC Lorazepam (Ativan) 0.5 mg PRN Q6HRS PRN IV ANXIETY / AGITATION; Start 09/14/18 at 22:15 Albumin Human 250 ml @ 83.3 mls/hr 1X ONCE IV Last administered on 09/15/18at 01:15; Start 09/15/18 at 01:00; Stop 09/15/18 at 04:00; Status DC Hydromorphone HCl (Dilaudid) 0.5 mg PRN Q3HRS PRN IV PAIN; Start 09/15/18 at 08 :30 Albumin Human 500 ml @ 125 mls/hr 1X ONCE IV Last administered on 09/15/18at 10:23; Start 09/15/18 at 09:00; Stop 09/15/18 at 12:59 Sodium Chloride 250 ml @ 500 mls/hr 1X ONCE IV Last administered on at 11:00; Start 09/15/18 at 11:00; Stop 09/15/18 at 11:29; Status DC Sodium Chloride 1,000 ml @ 100 mls/hr Q10H IV ; Start 09/15/18 at 11:30; Stop 09/15/18 at 22:00 Sodium Chloride 1,000 ml @ 75 mls/hr [id number] IV ; Start 09/15/18 at 22:00 Active Scripts Active Magnesium Chloride 70 Mg Tablet. 64 Mg PO DAILY 30 Days Synthroid (Levothyroxine Sodium) 88 Mcg Tablet 88 Mcg PO DAILY06 30 Days Prednisone 20 Mg Tablet 20 Mg PO DAILY 30 Days Budesonide 0.5 Mg/2 Ml Ampul.neb 0.5 Mg NEB RTBID 30 Days Diltiazem 24HR Cd (Diltiazem Hcl) 180 Mg Cap.er.24h 180 Mg PO DAILY 90 Days Prednisone (Prednisone) 10 Mg Tablet 40 Mg PO DAILY 30 Days Klor-Con 10 (Potassium Chloride) 10 Meq Tablet.er 1 Tab PO DAILY Lasix (Furosemide) 40 Mg Tablet 1 Tab PO DAILY Aspirin Ec (Aspirin) 81 Mg Tablet. 81 Mg PO DAILYWBKFT 30 Days Duoneb 0.5-3(2.5) Mg/3 Ml (Albuterol/Ipratropium) 3 Ml Ampul.neb 3 Ml NEB RTQID 30 Days Diltiazem 24HR Cd (Diltiazem Hcl) 120 Mg Cap.er.24h 120 Mg PO DAILY 30 Days Reported Hydrocodone-Apap 7.5-325 (Hydrocodone Bit/Acetaminophen) 1 Tab Tablet 1 Tab PO PRN Q6HRS PRN Prednisolone Sodium Phosphate (Prednisolone Sod Phosphate) 15 Mg/5 Ml Solution 15 Mg PO DAILY Omeprazole 40 Mg Capsule.dr 40 Mg PO DAILY Cartia Xt (Diltiazem Hcl) 120 Mg Cap.er.24h 120 Mg PO DAILY Wellbutrin Xl (Bupropion Hcl) 150 Mg Tab.er.24h 1 Tab PO DAILY Omeprazole 40 Mg Capsule.dr 1 Cap PO Allergies Allergies: Coded Allergies: No Known Drug Allergies (Unverified , 09/14/18) ROS Review of System UNABLE TO OBTAIN Physical Exam General: Alert, Cooperative, No acute distress HEENT: Atraumatic, PERRLA, EOMI, Other (DRY MUCOSA) Lungs: Clear to auscultation Heart: Regular rate, Normal S2 Abdomen: Soft, Other (HYPOACTIVE) Extremities: No clubbing Skin: No breakdown Neuro: Other (SEDATE) Psych/Mental Status: Other (SEDATE) MUSCULOSKELETAL: No deformity, No swelling Vitals VITALS Vital Signs Date Time Temp Pulse Resp B/P (MAP) Pulse Ox O2 Delivery O2 Flow Rate FiO2 09/15/18 11:17 109 105/56 09/15/18 11:00 20 100 Nasal Cannula 2.0 09/15/18 08:00 98.9 98.9 Labs Labs Laboratory Tests Test 09/13/18 22:30 09/14/18 14:50 09/14/18 21:42 09/15/18 04:25 Urine Collection Type Unknown Urine Color Frances Urine Clarity Clear Urine pH 5.5 Urine Specific [place] >=1.030 Urine Protein 30 mg/dL (NEG-TRACE) Urine Glucose (UA) Negative mg/dL (NEG) Urine Ketones (Stick) 15 mg/dL (NEG) Urine Blood Negative (NEG) Urine Nitrite Negative (NEG) Urine Bilirubin Small (NEG) Urine Urobilinogen Dipstick 0.2 mg/dL (0.2 mg/dL) Urine Leukocyte Esterase Negative (NEG) Urine RBC Occ /HPF (0-2) Urine WBC Occ /HPF (0-4) Urine Bacteria 0 /HPF (0-FEW) Urine Hyaline Casts Occasional /HPF Urine Opiates Screen Pos (NEG) Urine Methadone Screen Neg (NEG) Urine Barbiturates Neg (NEG) Urine Phencyclidine Screen Neg (NEG) Urine Amphetamine/Methamphetamine Neg (NEG) Urine Benzodiazepines Screen Neg (NEG) Urine Cocaine Screen Neg (NEG) Urine Cannabinoids Screen Neg (NEG) Urine Ethyl Alcohol Neg (NEG) White Blood Count 10.7 x10^3/uL (4.0-11.0) 15.2 x10^3/uL (4.0-11.0) Red Blood Count 4.10 x10^6/uL (4.30-5.70) 4.18 x10^6/uL (4.30-5.70) Hemoglobin 13.1 g/dL (13.0-17.5) 13.1 g/dL (13.0-17.5) Hematocrit 39.2 % (39.0-53.0) 40.3 % (39.0-53.0) Mean Corpuscular Volume 96 fL (79-100) 96 fL (79-100) Mean Corpuscular Hemoglobin 32 pg (25-35) 31 pg (25-35) Mean Corpuscular Hemoglobin Concent 34 g/dL (31-37) 33 g/dL (31-37) Red Cell Distribution Width 14.3 % (11.5-14.5) 14.3 % (11.5-14.5) Platelet Count 266 x10^3/uL (140-400) 219 x10^3/uL (140-400) Neutrophils (%) (Auto) 80 % (31-73) 94 % (31-73) Lymphocytes (%) (Auto) 8 % (24-48) 2 % (24-48) Monocytes (%) (Auto) 12 % (0-9) 5 % (0-9) Eosinophils (%) (Auto) 0 % (0-3) 0 % (0-3) Basophils (%) (Auto) 0 % (0-3) 0 % (0-3) Neutrophils # (Auto) 8.5 x10^3uL (1.8-7.7) 14.2 x10^3uL (1.8-7.7) Lymphocytes # (Auto) 0.9 x10^3/uL (1.0-4.8) 0.3 x10^3/uL (1.0-4.8) Monocytes # (Auto) 1.2 x10^3/uL (0.0-1.1) 0.7 x10^3/uL (0.0-1.1) Eosinophils # (Auto) 0.0 x10^3/uL (0.0-0.7) 0.0 x10^3/uL (0.0-0.7) Basophils # (Auto) 0.0 x10^3/uL (0.0-0.2) 0.0 x10^3/uL (0.0-0.2) Sodium Level 147 mmol/L (136-145) 147 mmol/L (136-145) Potassium Level 3.7 mmol/L (3.5-5.1) 3.6 mmol/L (3.5-5.1) Chloride Level 106 mmol/L (98-107) 107 mmol/L (98-107) Carbon Dioxide Level 27 mmol/L (21-32) 19 mmol/L (21-32) Anion Gap 14 (6-14) 21 (6-14) Blood Urea Nitrogen 28 mg/dL (8-26) 32 mg/dL (8-26) Creatinine 1.0 mg/dL (0.7-1.3) 1.6 mg/dL (0.7-1.3) Estimated GFR (Cockcroft-Gault) 72.6 42.2 BUN/Creatinine Ratio 28 (6-20) Glucose Level 82 mg/dL (70-99) 142 mg/dL (70-99) Calcium Level 9.5 mg/dL (8.5-10.1) 8.8 mg/dL (8.5-10.1) Phosphorus Level 3.1 mg/dL (2.6-4.7) 5.2 mg/dL (2.6-4.7) Total Bilirubin 0.8 mg/dL (0.2-1.0) Aspartate Amino Transf (AST/SGOT) 15 U/L (15-37) Alanine Aminotransferase (ALT/SGPT) 13 U/L (16-63) Alkaline Phosphatase 70 U/L (46-116) Total Protein 6.5 g/dL (6.4-8.2) Albumin 2.9 g/dL (3.4-5.0) Albumin/Globulin Ratio 0.8 (1.0-1.7) O2 Saturation 97 % (92-99) Arterial Blood pH 7.39 (7.35-7.45) Arterial Blood pCO2 at Patient Temp 30 mmHg (35-46) Arterial Blood pO2 at Patient Temp 101 mmHg (65-108) Arterial Blood HCO3 18 mmol/L (21-28) Arterial Blood Base Excess -6 mmol/L (-3-3) FiO2 28 Segmented Neutrophils % 44 % (35-66) Band Neutrophils % 48 % (0-9) Monocytes % 7 % (0-10) Metamyelocytes % 1 % (0-0) Platelet Estimate Adequate (ADEQUATE) Giant Platelets Present Magnesium Level 1.9 mg/dL (1.8-2.4) Laboratory Tests Test 09/14/18 14:50 09/14/18 21:42 09/15/18 04:25 White Blood Count 10.7 x10^3/uL (4.0-11.0) 15.2 x10^3/uL (4.0-11.0) Red Blood Count 4.10 x10^6/uL (4.30-5.70) 4.18 x10^6/uL (4.30-5.70) Hemoglobin 13.1 g/dL (13.0-17.5) 13.1 g/dL (13.0-17.5) Hematocrit 39.2 % (39.0-53.0) 40.3 % (39.0-53.0) Mean Corpuscular Volume 96 fL (79-100) 96 fL (79-100) Mean Corpuscular Hemoglobin 32 pg (25-35) 31 pg (25-35) Mean Corpuscular Hemoglobin Concent 34 g/dL (31-37) 33 g/dL (31-37) Red Cell Distribution Width 14.3 % (11.5-14.5) 14.3 % (11.5-14.5) Platelet Count 266 x10^3/uL (140-400) 219 x10^3/uL (140-400) Neutrophils (%) (Auto) 80 % (31-73) 94 % (31-73) Lymphocytes (%) (Auto) 8 % (24-48) 2 % (24-48) Monocytes (%) (Auto) 12 % (0-9) 5 % (0-9) Eosinophils (%) (Auto) 0 % (0-3) 0 % (0-3) Basophils (%) (Auto) 0 % (0-3) 0 % (0-3) Neutrophils # (Auto) 8.5 x10^3uL (1.8-7.7) 14.2 x10^3uL (1.8-7.7) Lymphocytes # (Auto) 0.9 x10^3/uL (1.0-4.8) 0.3 x10^3/uL (1.0-4.8) Monocytes # (Auto) 1.2 x10^3/uL (0.0-1.1) 0.7 x10^3/uL (0.0-1.1) Eosinophils # (Auto) 0.0 x10^3/uL (0.0-0.7) 0.0 x10^3/uL (0.0-0.7) Basophils # (Auto) 0.0 x10^3/uL (0.0-0.2) 0.0 x10^3/uL (0.0-0.2) Sodium Level 147 mmol/L (136-145) 147 mmol/L (136-145) Potassium Level 3.7 mmol/L (3.5-5.1) 3.6 mmol/L (3.5-5.1) Chloride Level 106 mmol/L (98-107) 107 mmol/L (98-107) Carbon Dioxide Level 27 mmol/L (21-32) 19 mmol/L (21-32) Anion Gap 14 (6-14) 21 (6-14) Blood Urea Nitrogen 28 mg/dL (8-26) 32 mg/dL (8-26) Creatinine 1.0 mg/dL (0.7-1.3) 1.6 mg/dL (0.7-1.3) Estimated GFR (Cockcroft-Gault) 72.6 42.2 BUN/Creatinine Ratio 28 (6-20) Glucose Level 82 mg/dL (70-99) 142 mg/dL (70-99) Calcium Level 9.5 mg/dL (8.5-10.1) 8.8 mg/dL (8.5-10.1) Phosphorus Level 3.1 mg/dL (2.6-4.7) 5.2 mg/dL (2.6-4.7) Total Bilirubin 0.8 mg/dL (0.2-1.0) Aspartate Amino Transf (AST/SGOT) 15 U/L (15-37) Alanine Aminotransferase (ALT/SGPT) 13 U/L (16-63) Alkaline Phosphatase 70 U/L (46-116) Total Protein 6.5 g/dL (6.4-8.2) Albumin 2.9 g/dL (3.4-5.0) Albumin/Globulin Ratio 0.8 (1.0-1.7) O2 Saturation 97 % (92-99) Arterial Blood pH 7.39 (7.35-7.45) Arterial Blood pCO2 at Patient Temp 30 mmHg (35-46) Arterial Blood pO2 at Patient Temp 101 mmHg (65-108) Arterial Blood HCO3 18 mmol/L (21-28) Arterial Blood Base Excess -6 mmol/L (-3-3) FiO2 28 Segmented Neutrophils % 44 % (35-66) Band Neutrophils % 48 % (0-9) Monocytes % 7 % (0-10) Metamyelocytes % 1 % (0-0) Platelet Estimate Adequate (ADEQUATE) Giant Platelets Present Magnesium Level 1.9 mg/dL (1.8-2.4) Assessment/Plan Assessment/Plan IMP ALBERT SBO-S/P REPAIR DEHYDRATION HYPERNATREMIA HYPONATREMIA PULM FIBROSIS P AFIB PLAN VOLUME EXPAND PPN THEN TPN ANTIBIOTICS WILL FOLLOW D/W DESIRE DE LA GARZA MD Sep 15, 2018 11:39
[2018-09-15] MEDS: TPN PER PHARMACY MC PRN (13:01)
--- NOTE | 2018-09-15 13:08 | NUR ---
Pharmacy TPN Dosing Note S: JOHN ROBBINS is a 78 year old M Currently receiving Central Continuous TPN started 09/15/18 B:Pertinent PMH: SBO Height: 5 feet, 10 inches Weight: 55.9 kg Current diet: NPO LABS: Sodium: 147 Potassium: 3.6 Chloride: 107 Calcium: 8.8 Corrected Calcium: 9.68 Magnesium: 1.9 CO2: 19 SCr: 1.6 Glucose: 142 Albumin: 2.9 AST: 15 ALT: 13 TPN FORMULA: TPN TYPE: Central Continuous AMINO ACIDS: 65 gm DEXTROSE: 225 gm LIPIDS: 20 gm SODIUM ACETATE: 90 mEq POTASSIUM CHLORIDE: 50 mEq POTASSIUM PHOSPHATE: 3.4 mmol MAGNESIUM: 10 mEq CALCIUM: 10 mEq MULTIPLE VITAMIN: 10 ml TRACE ELEMENTS: 1 ml TPN PLAN: TPN to start with macros per communications equipment operator rec's. Standard electrolytes except sodium chloride converted to acetate for acid/base balance and potassium phosphate reduced to start due to elevated level today. IV NS maintenance fluid rate to be reduced to 75ml/hr when TPN starts per MD orders. R: Begin TPN per plan and ordered formula. Will monitor electrolytes, glucose, and tolerance to TPN. Yuki Wilhelm Bree, 09/15/18 [id number]
[2018-09-15] MEDS ORDERED: LIDOCAINE WITH 8.4% SOD BICARB 3 ML DISP.SYRIN. ONE (14:35)
[2018-09-15] MEDS ORDERED: LIDOCAINE WITH 8.4% SOD BICARB 3 ML DISP.SYRIN. IJ ONE (15:15)
[2018-09-15] MEDS: MORPHINE SULFATE 4 MG/ML VIAL. IV PRN ×3 (15:44→23:20)
[2018-09-15] MEDS ORDERED: DEXTROSE 70% IV SCH ×10 (22:00)
[2018-09-15] MEDS ORDERED: AMINO ACID IV SCH ×10 (22:00)
[2018-09-15] MEDS ORDERED: TOTAL PARENTERAL NUTRITION IV SCH ×10 (22:00)
[2018-09-15] MEDS ORDERED: [UNRECOGNIZED DRUG - OTHER] IV SCH ×10 (22:00)
[2018-09-16] VITALS (14 sets, daily range): BP systolic 90–153; BP diastolic 55–91
[2018-09-16] MEDS: METOPROLOL TARTRATE 5 MG/5 ML VIAL. IVP SCH ×4 (00:02→18:06)
[2018-09-16] MEDS: MORPHINE SULFATE 4 MG/ML VIAL. IV PRN ×3 (05:11→21:43)
[2018-09-16 05:17] LABS: CALCIUM 8.6 mg/dL (8.5-10.1); CREATININE 1.2 mg/dL (0.7-1.3); GFR 58.9; MAGNESIUM 2.3 mg/dL (1.8-2.4); PHOSPHORUS 1.6 mg/dL (2.6-4.7); POTASSIUM 3.8 mmol/L (3.5-5.1)
[2018-09-16] MEDS: IPRATRPIUM/ALBUTEROL 0.5/2.5MG 3 ML NEBU. NEB SCH ×4 (08:14→19:49)
[2018-09-16] MEDS: BUDESONIDE 0.5 MG/2 ML NEBU. NEB SCH ×2 (08:14→19:49)
[2018-09-16] MEDS: PANTOPRAZOLE IV PUSH 40 MG VIAL. IVP SCH (08:26)
[2018-09-16] MEDS: ASPIRIN RECTAL 300 MG SUPP. PR SCH (08:26)
[2018-09-16] MEDS: methylPREDNISolone SOD SUCC PF 125 MG/2 ML VIAL. IV SCH (08:26)
--- NOTE | 2018-09-16 09:15 | PDOC ---
PULMONARY PROGRESS NOTES Subjective patient sitting in chair and no increased SOA Vitals Vital Signs Date Time Temp Pulse Resp B/P (MAP) Pulse Ox O2 Delivery O2 Flow Rate FiO2 09/16/18 08:14 99 Nasal Cannula 2.0 09/16/18 08:00 90 14 104/62 (76) 09/16/18 07:00 98.4 98.4 ROS: No Nausea, No Chest Pain, No Increase Cough General: Alert HEENT: Other Lungs: Crackles Cardiovascular: S1, S2 Abdomen: Soft, Non-tender Neuro Exam: Alert Extremities: Other Skin: Warm Labs Laboratory Tests Test 09/14/18 14:50 09/14/18 21:42 09/14/18 23:25 09/15/18 04:25 White Blood Count 10.7 x10^3/uL (4.0-11.0) 15.2 x10^3/uL (4.0-11.0) Red Blood Count 4.10 x10^6/uL (4.30-5.70) 4.18 x10^6/uL (4.30-5.70) Hemoglobin 13.1 g/dL (13.0-17.5) 13.1 g/dL (13.0-17.5) Hematocrit 39.2 % (39.0-53.0) 40.3 % (39.0-53.0) Mean Corpuscular Volume 96 fL (79-100) 96 fL (79-100) Mean Corpuscular Hemoglobin 32 pg (25-35) 31 pg (25-35) Mean Corpuscular Hemoglobin Concent 34 g/dL (31-37) 33 g/dL (31-37) Red Cell Distribution Width 14.3 % (11.5-14.5) 14.3 % (11.5-14.5) Platelet Count 266 x10^3/uL (140-400) 219 x10^3/uL (140-400) Neutrophils (%) (Auto) 80 % (31-73) 94 % (31-73) Lymphocytes (%) (Auto) 8 % (24-48) 2 % (24-48) Monocytes (%) (Auto) 12 % (0-9) 5 % (0-9) Eosinophils (%) (Auto) 0 % (0-3) 0 % (0-3) Basophils (%) (Auto) 0 % (0-3) 0 % (0-3) Neutrophils # (Auto) 8.5 x10^3uL (1.8-7.7) 14.2 x10^3uL (1.8-7.7) Lymphocytes # (Auto) 0.9 x10^3/uL (1.0-4.8) 0.3 x10^3/uL (1.0-4.8) Monocytes # (Auto) 1.2 x10^3/uL (0.0-1.1) 0.7 x10^3/uL (0.0-1.1) Eosinophils # (Auto) 0.0 x10^3/uL (0.0-0.7) 0.0 x10^3/uL (0.0-0.7) Basophils # (Auto) 0.0 x10^3/uL (0.0-0.2) 0.0 x10^3/uL (0.0-0.2) Sodium Level 147 mmol/L (136-145) 147 mmol/L (136-145) Potassium Level 3.7 mmol/L (3.5-5.1) 3.6 mmol/L (3.5-5.1) Chloride Level 106 mmol/L (98-107) 107 mmol/L (98-107) Carbon Dioxide Level 27 mmol/L (21-32) 19 mmol/L (21-32) Anion Gap 14 (6-14) 21 (6-14) Blood Urea Nitrogen 28 mg/dL (8-26) 32 mg/dL (8-26) Creatinine 1.0 mg/dL (0.7-1.3) 1.6 mg/dL (0.7-1.3) Estimated GFR (Cockcroft-Gault) 72.6 42.2 BUN/Creatinine Ratio 28 (6-20) Glucose Level 82 mg/dL (70-99) 142 mg/dL (70-99) Calcium Level 9.5 mg/dL (8.5-10.1) 8.8 mg/dL (8.5-10.1) Phosphorus Level 3.1 mg/dL (2.6-4.7) 5.2 mg/dL (2.6-4.7) Total Bilirubin 0.8 mg/dL (0.2-1.0) Aspartate Amino Transf (AST/SGOT) 15 U/L (15-37) Alanine Aminotransferase (ALT/SGPT) 13 U/L (16-63) Alkaline Phosphatase 70 U/L (46-116) Total Protein 6.5 g/dL (6.4-8.2) Albumin 2.9 g/dL (3.4-5.0) Albumin/Globulin Ratio 0.8 (1.0-1.7) O2 Saturation 97 % (92-99) Arterial Blood pH 7.39 (7.35-7.45) Arterial Blood pCO2 at Patient Temp 30 mmHg (35-46) Arterial Blood pO2 at Patient Temp 101 mmHg (65-108) Arterial Blood HCO3 18 mmol/L (21-28) Arterial Blood Base Excess -6 mmol/L (-3-3) FiO2 28 Nasal Screen MRSA (PCR) Negative (Negative) Segmented Neutrophils % 44 % (35-66) Band Neutrophils % 48 % (0-9) Monocytes % 7 % (0-10) Metamyelocytes % 1 % (0-0) Platelet Estimate Adequate (ADEQUATE) Giant Platelets Present Magnesium Level 1.9 mg/dL (1.8-2.4) Test 09/16/18 04:30 Sodium Level 146 mmol/L (136-145) Potassium Level 3.8 mmol/L (3.5-5.1) Chloride Level 110 mmol/L (98-107) Carbon Dioxide Level 28 mmol/L (21-32) Anion Gap 8 (6-14) Blood Urea Nitrogen 31 mg/dL (8-26) Creatinine 1.2 mg/dL (0.7-1.3) Estimated GFR (Cockcroft-Gault) 58.9 Glucose Level 227 mg/dL (70-99) Calcium Level 8.6 mg/dL (8.5-10.1) Phosphorus Level 1.6 mg/dL (2.6-4.7) Magnesium Level 2.3 mg/dL (1.8-2.4) Triglycerides Level 64 mg/dL (0-150) Laboratory Tests Test 09/16/18 04:30 Sodium Level 146 mmol/L (136-145) Potassium Level 3.8 mmol/L (3.5-5.1) Chloride Level 110 mmol/L (98-107) Carbon Dioxide Level 28 mmol/L (21-32) Anion Gap 8 (6-14) Blood Urea Nitrogen 31 mg/dL (8-26) Creatinine 1.2 mg/dL (0.7-1.3) Estimated GFR (Cockcroft-Gault) 58.9 Glucose Level 227 mg/dL (70-99) Calcium Level 8.6 mg/dL (8.5-10.1) Phosphorus Level 1.6 mg/dL (2.6-4.7) Magnesium Level 2.3 mg/dL (1.8-2.4) Triglycerides Level 64 mg/dL (0-150) Medications Active Scripts Medications Dose Route/Sig Max Daily Dose Days Date Category Magnesium Chloride 70 Mg Tablet.dr 64 Mg PO DAILY 30 08/30/18 Rx Synthroid (Levothyroxine Sodium) 88 Mcg Tablet 88 Mcg PO DAILY06 30 08/30/18 Rx Prednisone 20 Mg Tablet 20 Mg PO DAILY 30 08/30/18 Rx Budesonide 0.5 Mg/2 Ml Ampul.neb 0.5 Mg NEB RTBID 30 08/30/18 Rx Diltiazem 24HR Cd (Diltiazem Hcl) 180 Mg Cap.er.24h 180 Mg PO DAILY 90 08/30/18 Rx Hydrocodone-Apap 7.5-325 (Hydrocodone Bit/Acetaminophen) 1 Tab Tablet 1 Tab PO PRN Q6HRS PRN 08/26/18 Reported Prednisolone Sodium Phosphate (Prednisolone Sod Phosphate) 15 Mg/5 Ml Solution 15 Mg PO DAILY 08/26/18 Reported Omeprazole 40 Mg Capsule.dr 40 Mg PO DAILY 08/26/18 Reported Cartia Xt (Diltiazem Hcl) 120 Mg Cap.er.24h 120 Mg PO DAILY 08/26/18 Reported Prednisone (Prednisone) 10 Mg Tablet 40 Mg PO DAILY 30 07/16/18 Rx Klor-Con 10 (Potassium Chloride) 10 Meq Tablet.er 1 Tab PO DAILY 07/16/18 Rx Lasix (Furosemide) 40 Mg Tablet 1 Tab PO DAILY 07/16/18 Rx Aspirin Ec (Aspirin) 81 Mg Tablet.dr 81 Mg PO DAILYWBKFT 30 07/16/18 Rx Duoneb 0.5-3(2.5) Mg/3 Ml (Albuterol/Ipratropium) 3 Ml Ampul.neb 3 Ml NEB RTQID 30 07/01/18 Rx Diltiazem 24HR Cd (Diltiazem Hcl) 120 Mg Cap.er.24h 120 Mg PO DAILY 30 07/01/18 Rx Wellbutrin Xl (Bupropion Hcl) 150 Mg Tab.er.24h 1 Tab PO DAILY 06/30/18 Reported Omeprazole 40 Mg Capsule.dr 1 Cap PO 10/25/14 Reported Impression . IMPRESSION: 1. Chronic respiratory failure. 2. Pulmonary fibrosis. 3. Small-bowel obstruction. S/P SURGERY SEE BELOW 4. Other comorbidities as indicated above. PREOPERATIVE DIAGNOSIS: Small bowel obstruction. POSTOPERATIVE DIAGNOSIS: Small bowel obstruction, secondary to adhesive band. PROCEDURE: Diagnostic laparoscopy, followed by laparotomy with release of small-bowel obstruction and decompression of the small bowel. Plan . transfer out of ICU TPN for nutrition nebulizer treatments incentive spirometry JON EDWARDS MD Sep 16, 2018 09:15
--- NOTE | 2018-09-16 09:18 | RAD ---
Exam: Fluoroscopic and ultrasound guided right percutaneous inserted central venous catheter placement 09/16/2018 9:14 AM .Indication: TPN access Technique: Informed oral and written consent were obtained. The right upper extremity was prepped and draped using sterile barrier technique. All elements of maximal sterile barrier technique including the use of a cap, mask, sterile gown, sterile gloves, large sterile sheet, appropriate hand hygiene, and 2% chlorhexidine for cutaneous antisepsis (or acceptable alternative antiseptic per current guidelines) were followed for this procedure.. Real-time ultrasound demonstrated a patent right basilic vein. The right upper extremity was prepped and draped in usual sterile fashion. 1% lidocaine used for local anesthesia. Using real-time ultrasound guidance the access needle percutaneously punctured the selected vein. Reference ultrasound images were saved to the medical record. A guidewire was advanced through the needle to the cavoatrial junction, and a peel-away sheath placed. The catheter was cut to length and inserted through the peel-away sheath such that its tip is at the cavoatrial junction. The wire and sheath were removed, and the catheter secured in place, and a sterile dressing was applied. Catheter was found to flush and aspirate normally. No immediate complications are identified. FLUORO TIME: 0.5 DOSE AREA PRODUCT: 0.4 Gycm2 Impression: Ultrasound and fluoroscopically guided placement of a right upper extremity PICC line.
[2018-09-16] MEDS: ENOXAPARIN 40 MG/0.4 ML SYRINGE. SQ SCH (09:53)
[2018-09-16] MEDS ORDERED: POTASSIUM PHOSPHATE DIBASIC 13.6 MMOL in IV DEXTROSE 5% 100ML 100 ML IV ONE (10:00)
[2018-09-16] MEDS: TPN PER PHARMACY MC PRN ×2 (10:37→10:41)
--- NOTE | 2018-09-16 10:43 | NUR ---
Pharmacy TPN Dosing Note S: JOHN ROBBINS is a 78 year old M Currently receiving Central Continuous TPN started 09/15/18 B:Pertinent PMH: SBO Height: 5 feet, 10 inches Weight: 56.3kg Current diet: NPO LABS: Sodium: 146 Potassium: 3.8 Chloride: 110 Calcium: 8.6 Corrected Calcium: 9.48 Magnesium: 2.3 CO2: 28 SCr: 1.2 Glucose: 227 Albumin: 2.9 AST: 15 ALT: 13 TPN FORMULA: TPN TYPE: Central Continuous AMINO ACIDS: 65 gm DEXTROSE: 225 gm LIPIDS: 20 gm SODIUM ACETATE: 90 mEq POTASSIUM CHLORIDE: 50 mEq POTASSIUM PHOSPHATE: 15 mmol MAGNESIUM: 10 mEq CALCIUM: 10 mEq MULTIPLE VITAMIN: 10 ml TRACE ELEMENTS: 1 ml TPN PLAN: Potassium phosphate 13.6mmol x1 given IVPB and increased in next TPN to 15mmol. R: Change TPN per plan and ordered formula Will monitor electrolytes, glucose, and tolerance to TPN. Yuki Wilhelm Bree, 09/16/18 [id number]
--- NOTE | 2018-09-16 11:29 | PDOC ---
PROGRESS NOTES Subjective Subjective Patient improving, still no flatus. NG in place TPN on going.Renal function improved oriented X 3 Objective Objective Vital Signs Date Time Temp Pulse Resp B/P (MAP) Pulse Ox O2 Delivery O2 Flow Rate FiO2 09/16/18 09:00 85 16 121/72 (88) 96 Nasal Cannula 2.0 09/16/18 07:00 98.4 98.4 Intake and Output 09/16/18 07:00 Intake Total 3246.75 ml Output Total 1260 ml Balance 1986.75 ml Intake Oral 0 ml IV Total 3246.75 ml Output Urine Total 960 ml Gastric Drainage Total 300 ml Physical Exam Abdomen: Other (BS absent mild distentioin) Heart: Regular rate Extremities: No edema General: Alert Lungs: Other (course) Assessment Assessment Problems Medical Problems: (1) Generalized weakness Status: Acute Small bowel obstruction. S/P open lap lysis of adhesion and SBO take down POD #2 Ileus s/p ALBERT improved with IV fluids PAST MEDICAL HISTORY: Significant for: 1. Pulmonary fibrosis. 2. COPD. 3. SVT. 4. Hypertension. 5. Osteoarthritis. 6. Gastroesophageal reflux disease, status post dilatation of stricture. 7. Hypothyroidism. 8. BPH. 9. Vgivi-bc-xqddoob diastolic congestive heart failure. 10. Severe protein malnutrition. 11. History of prostate cancer. 12. History of hepatitis C. 13. Major depression. Plan Plan of Care Move to floor with monitor Proceed with PT/OT TPN on going Await bowel function Comment Review of Relevant I have reviewed the following items sherine (where applicable) has been applied. Labs Laboratory Tests Test 09/14/18 14:50 09/14/18 21:42 09/14/18 23:25 09/15/18 04:25 White Blood Count 10.7 x10^3/uL (4.0-11.0) 15.2 x10^3/uL (4.0-11.0) Red Blood Count 4.10 x10^6/uL (4.30-5.70) 4.18 x10^6/uL (4.30-5.70) Hemoglobin 13.1 g/dL (13.0-17.5) 13.1 g/dL (13.0-17.5) Hematocrit 39.2 % (39.0-53.0) 40.3 % (39.0-53.0) Mean Corpuscular Volume 96 fL (79-100) 96 fL (79-100) Mean Corpuscular Hemoglobin 32 pg (25-35) 31 pg (25-35) Mean Corpuscular Hemoglobin Concent 34 g/dL (31-37) 33 g/dL (31-37) Red Cell Distribution Width 14.3 % (11.5-14.5) 14.3 % (11.5-14.5) Platelet Count 266 x10^3/uL (140-400) 219 x10^3/uL (140-400) Neutrophils (%) (Auto) 80 % (31-73) 94 % (31-73) Lymphocytes (%) (Auto) 8 % (24-48) 2 % (24-48) Monocytes (%) (Auto) 12 % (0-9) 5 % (0-9) Eosinophils (%) (Auto) 0 % (0-3) 0 % (0-3) Basophils (%) (Auto) 0 % (0-3) 0 % (0-3) Neutrophils # (Auto) 8.5 x10^3uL (1.8-7.7) 14.2 x10^3uL (1.8-7.7) Lymphocytes # (Auto) 0.9 x10^3/uL (1.0-4.8) 0.3 x10^3/uL (1.0-4.8) Monocytes # (Auto) 1.2 x10^3/uL (0.0-1.1) 0.7 x10^3/uL (0.0-1.1) Eosinophils # (Auto) 0.0 x10^3/uL (0.0-0.7) 0.0 x10^3/uL (0.0-0.7) Basophils # (Auto) 0.0 x10^3/uL (0.0-0.2) 0.0 x10^3/uL (0.0-0.2) Sodium Level 147 mmol/L (136-145) 147 mmol/L (136-145) Potassium Level 3.7 mmol/L (3.5-5.1) 3.6 mmol/L (3.5-5.1) Chloride Level 106 mmol/L (98-107) 107 mmol/L (98-107) Carbon Dioxide Level 27 mmol/L (21-32) 19 mmol/L (21-32) Anion Gap 14 (6-14) 21 (6-14) Blood Urea Nitrogen 28 mg/dL (8-26) 32 mg/dL (8-26) Creatinine 1.0 mg/dL (0.7-1.3) 1.6 mg/dL (0.7-1.3) Estimated GFR (Cockcroft-Gault) 72.6 42.2 BUN/Creatinine Ratio 28 (6-20) Glucose Level 82 mg/dL (70-99) 142 mg/dL (70-99) Calcium Level 9.5 mg/dL (8.5-10.1) 8.8 mg/dL (8.5-10.1) Phosphorus Level 3.1 mg/dL (2.6-4.7) 5.2 mg/dL (2.6-4.7) Total Bilirubin 0.8 mg/dL (0.2-1.0) Aspartate Amino Transf (AST/SGOT) 15 U/L (15-37) Alanine Aminotransferase (ALT/SGPT) 13 U/L (16-63) Alkaline Phosphatase 70 U/L (46-116) Total Protein 6.5 g/dL (6.4-8.2) Albumin 2.9 g/dL (3.4-5.0) Albumin/Globulin Ratio 0.8 (1.0-1.7) O2 Saturation 97 % (92-99) Arterial Blood pH 7.39 (7.35-7.45) Arterial Blood pCO2 at Patient Temp 30 mmHg (35-46) Arterial Blood pO2 at Patient Temp 101 mmHg (65-108) Arterial Blood HCO3 18 mmol/L (21-28) Arterial Blood Base Excess -6 mmol/L (-3-3) FiO2 28 Nasal Screen MRSA (PCR) Negative (Negative) Segmented Neutrophils % 44 % (35-66) Band Neutrophils % 48 % (0-9) Monocytes % 7 % (0-10) Metamyelocytes % 1 % (0-0) Platelet Estimate Adequate (ADEQUATE) Giant Platelets Present Magnesium Level 1.9 mg/dL (1.8-2.4) Test 09/16/18 04:30 Sodium Level 146 mmol/L (136-145) Potassium Level 3.8 mmol/L (3.5-5.1) Chloride Level 110 mmol/L (98-107) Carbon Dioxide Level 28 mmol/L (21-32) Anion Gap 8 (6-14) Blood Urea Nitrogen 31 mg/dL (8-26) Creatinine 1.2 mg/dL (0.7-1.3) Estimated GFR (Cockcroft-Gault) 58.9 Glucose Level 227 mg/dL (70-99) Calcium Level 8.6 mg/dL (8.5-10.1) Phosphorus Level 1.6 mg/dL (2.6-4.7) Magnesium Level 2.3 mg/dL (1.8-2.4) Triglycerides Level 64 mg/dL (0-150) Laboratory Tests Test 09/16/18 04:30 Sodium Level 146 mmol/L (136-145) Potassium Level 3.8 mmol/L (3.5-5.1) Chloride Level 110 mmol/L (98-107) Carbon Dioxide Level 28 mmol/L (21-32) Anion Gap 8 (6-14) Blood Urea Nitrogen 31 mg/dL (8-26) Creatinine 1.2 mg/dL (0.7-1.3) Estimated GFR (Cockcroft-Gault) 58.9 Glucose Level 227 mg/dL (70-99) Calcium Level 8.6 mg/dL (8.5-10.1) Phosphorus Level 1.6 mg/dL (2.6-4.7) Magnesium Level 2.3 mg/dL (1.8-2.4) Triglycerides Level 64 mg/dL (0-150) Medications Current Medications Famotidine (Pepcid Vial) 20 mg 1X ONCE IVP Last administered on 09/12/18at 18: 07; Start 09/12/18 at 17:45; Stop 09/12/18 at 17:46; Status DC Ondansetron HCl (Zofran) 4 mg 1X ONCE IV Last administered on 09/12/18at 18:07 ; Start 09/12/18 at 17:45; Stop 09/12/18 at 17:46; Status DC Iohexol (Omnipaque 300 Mg/ml) 75 ml 1X ONCE IV Last administered on 09/12/18at 18:35; Start 09/12/18 at 18:30; Stop 09/12/18 at 18:34; Status DC Info (CONTRAST GIVEN -- Rx MONITORING) 1 each PRN DAILY PRN MC SEE COMMENTS; Start 09/12/18 at 18:45; Stop 09/14/18 at 18:44; Status DC Fentanyl Citrate (Fentanyl 2ml Vial) 50 mcg 1X ONCE IV Last administered on 20:21; Start 09/12/18 at 20:00; Stop 09/12/18 at 20:01; Status DC Ondansetron HCl (Zofran) 4 mg PRN Q8HRS PRN IV NAUSEA/VOMITING; Start 09/12/18 at 20:30; Stop 09/13/18 at 20:29; Status DC Morphine Sulfate (Morphine Sulfate) 4 mg PRN Q2HR PRN IV PAIN Last administered on 09/13/18 10:20; Start 09/12/18 at 20:30; Stop 09/13/18 at 20:29 ; Status DC Metronidazole 100 ml @ 100 mls/hr Q8HRS IV Last administered on 09/16/18 05: 35; Start 09/12/18 at 22:00 Ciprofloxacin/ Dextrose 200 ml @ 200 mls/hr 1X ONCE IV Last administered on 22:51; Start 09/12/18 at 20:30; Stop 09/12/18 at 21:29; Status DC Sodium Chloride 1,000 ml @ 75 mls/hr 1X ONCE IV Last administered on 22:51; Start 09/12/18 at 20:30; Stop 09/13/18 at 09:49; Status DC Budesonide (Pulmicort) 0.5 mg RTBID NEB Last administered on 09/16/18 08:14; Start 09/13/18 at 09:30 Albuterol/ Ipratropium (Duoneb) 3 ml RTQID NEB Last administered on 09/16/18 08:14; Start 09/13/18 at 09:30 Methylprednisolone Sodium Succinate (SOLU-Medrol 40MG VIAL) 20 mg DAILY IV Last administered on 09/13/18 10:21; Start 09/13/18 at 10:00; Stop 09/14/18 at 12:55; Status DC Pantoprazole Sodium (PROTONIX VIAL for IV PUSH) 40 mg DAILYAC IVP Last administered on 2/14/19at 08:26; Start 09/13/18 at 10:00 Enoxaparin Sodium (Lovenox 40mg Syringe) 40 mg Q24H SQ Last administered on at 09:53; Start 09/13/18 at 10:00 Metoprolol Tartrate (Lopressor Vial) 5 mg Q6HRS IVP Last administered on at 05:35; Start 09/13/18 at 14:00 Potassium Chloride/Water 100 ml @ 100 mls/hr Q1H IV Last administered on at 17:10; Start 09/13/18 at 14:00; Stop 09/13/18 at 17:59; Status DC Throat Lozenges (Chloraseptic) 1 spray PRN Q2HR PRN PO SORE THROAT, 2nd choice Last administered on 09/14/18at 13:47; Start 09/13/18 at 16:45 Throat Lozenges (Cepacol Sore Throat Lozenge) 1 deniz PRN Q2HRS PRN PO SORE THROAT, 1st choice Last administered on 09/14/18at 13:46; Start 09/13/18 at 16:45 Aspirin (Aspirin) 300 mg DAILY MS Last administered on 09/16/18at 08:26; Start 09/14/18 at 09:00 Morphine Sulfate (Morphine Sulfate) 4 mg PRN Q2HR PRN IV PAIN Last administered on 09/16/18at 05:11; Start 09/13/18 at 21:15 Barium Sulfate (E-Z-Hd) 680 gm 1X ONCE PO ; Start 09/14/18 at 08:00; Stop 09/14 at 08:01; Status DC Iohexol (Omnipaque 300 Mg/ml) 400 ml 1X ONCE PO Last administered on at 08:00; Start 09/14/18 at 08:00; Stop 09/14/18 at 08:01; Status DC Info (CONTRAST GIVEN -- Rx MONITORING) 1 each PRN DAILY PRN MC SEE COMMENTS; Start 09/14/18 at 08:00; Stop 09/16/18 at 07:59; Status DC Potassium Chloride/Water 100 ml @ 100 mls/hr Q1H IV ; Start 09/14/18 at 09:00; Stop 09/14/18 at 12:59; Status DC Methylprednisolone Sodium Succinate (SOLU-Medrol 125MG VIAL) 125 mg DAILY IV Last administered on 09/16/18at 08:26; Start 09/15/18 at 09:00 Info (Tpn Per Pharmacy) 1 each PRN DAILY PRN MC SEE COMMENTS Last administered on 09/14/18at 13:51; Start 09/14/18 at 13:30; Stop 09/14/18 at 14:27; Status DC Info (Tpn Per Pharmacy) 1 each PRN DAILY PRN MC SEE COMMENTS Last administered on 09/16/18at 10:41; Start 09/15/18 at 14:30 Amino Acids/ Glycerin/ Electrolytes 1,000 ml @ 80 mls/hr [id number] IV Last administered on 09/15/18at 03:32; Start 09/14/18 at 14:30; Stop 09/15/18 at 21:59 ; Status DC Cefazolin Sodium/ Dextrose 50 ml @ 100 mls/hr 1X PREOP PRN IV protocol Last administered on 09/14/18at 17:40; Start 09/15/18 at 06:00; Stop 09/15/18 at 18:00 ; Status DC Metronidazole 100 ml @ 100 mls/hr 1X PREOP PRN IV protocol; Start 09/15/18 at 06:00; Stop 09/15/18 at 18:00; Status DC Ondansetron HCl (Zofran) 4 mg PRN Q6HRS PRN IV NAUSEA/VOMITING; Start 09/14/18 at 16:00; Stop 09/15/18 at 01:45; Status DC Fentanyl Citrate (Fentanyl 2ml Vial) 25 mcg PRN Q5MIN PRN IV MILD PAIN; Start 09/14/18 at 16:00; Stop 09/15/18 at 01:40; Status DC Fentanyl Citrate (Fentanyl 2ml Vial) 50 mcg PRN Q5MIN PRN IV MODERATE TO SEVERE PAIN Last administered on 09/14/18at 20:27; Start 09/14/18 at 16:00; Stop 09/15/18 at 01:40; Status DC Morphine Sulfate (Morphine Sulfate) 1 mg PRN Q10MIN PRN IV SEVERE PAIN Last administered on 09/14/18 21:51; Start 09/14/18 at 16:00; Stop 09/15/18 at 01:40 ; Status DC Ringer's Solution 1,000 ml @ 30 mls/hr Q24H IV Last administered on 09/14/18at 21:30; Start 09/14/18 at 15:52; Stop 09/15/18 at 01:40; Status DC Lidocaine HCl (Xylocaine-Mpf 1% 2ml Vial) 2 ml 1X PRN PRN ID IV START; Start at 16:00; Stop 09/15/18 at 15:59; Status DC Hydromorphone HCl (Dilaudid) 0.5 mg PRN Q10MIN PRN IV SEV PAIN, Second choice; Start 09/14/18 at 16:00; Stop 09/15/18 at 01:45; Status DC Prochlorperazine Edisylate (Compazine) 5 mg PACU PRN PRN IV NAUSEA, MRX1 Last administered on 09/14/18at 21:02; Start 09/14/18 at 16:00; Stop 09/15/18 at 01:40 ; Status DC Cefazolin Sodium/ Dextrose 50 ml @ As Directed STK-MED ONCE IV ; Start 09/14/18 at 16:08; Stop 09/14/18 at 16:09; Status DC Propofol 20 ml @ As Directed STK-MED ONCE IV ; Start 09/14/18 at 16:32; Stop 07/21 at 16:33; Status DC Dexamethasone Sodium Phosphate (Decadron) 20 mg STK-MED ONCE .ROUTE ; Start 07/21 at 16:32; Stop 09/14/18 at 16:33; Status DC Lidocaine HCl (Lidocaine Pf 2% Vial) 5 ml STK-MED ONCE .ROUTE ; Start 09/14/18 at 16:32; Stop 09/14/18 at 16:33; Status DC Ondansetron HCl (Zofran) 4 mg STK-MED ONCE .ROUTE ; Start 09/14/18 at 16:32; Stop 09/14/18 at 16:33; Status DC Succinylcholine Chloride (Anectine) 200 mg STK-MED ONCE .ROUTE ; Start 09/14/18 at 16:32; Stop 09/14/18 at 16:33; Status DC Rocuronium [place] (Zemuron) 50 mg STK-MED ONCE .ROUTE ; Start 09/14/18 at 16:32 ; Stop 09/14/18 at 16:33; Status DC Fentanyl Citrate (Fentanyl 2ml Vial) 100 mcg STK-MED ONCE .ROUTE ; Start at 16:32; Stop 09/14/18 at 16:33; Status DC Bupivacaine HCl/ Epinephrine Bitart (Sensorcain-Mpf Epi 0.5%-1:[id number]) 30 ml STK -MED ONCE .ROUTE Last administered on 09/14/18at 17:57; Start 09/14/18 at 17:18 ; Stop 09/14/18 at 17:19; Status DC Cefazolin Sodium/ Dextrose 50 ml @ As Directed STK-MED ONCE IV ; Start 09/14/18 at 17:28; Stop 09/14/18 at 17:29; Status DC Lidocaine HCl (Glydo (Lidocaine) Jelly) 6 marcel STK-MED ONCE .ROUTE ; Start at 17:43; Stop 09/14/18 at 17:44; Status DC Hydrocortisone Sodium Succinate (Solu-CORTEF) 100 mg STK-MED ONCE .ROUTE ; Start 09/14/18 at 18:08; Stop 09/14/18 at 18:09; Status DC Phenylephrine HCl (Shaw-Synephrine Inj) 10 mg STK-MED ONCE .ROUTE ; Start at 18:11; Stop 09/14/18 at 18:12; Status DC Glycopyrrolate (Robinul) 1 mg STK-MED ONCE .ROUTE ; Start 09/14/18 at 19:05; Stop 09/14/18 at 19:06; Status DC Sevoflurane (Ultane) 60 ml STK-MED ONCE IH ; Start 09/14/18 at 19:23; Stop 09/14 at 19:24; Status DC Enoxaparin Sodium (Lovenox 40mg Syringe) 30 mg Q24H SQ ; Start 09/14/18 at 19:45 ; Status UNV Sodium Chloride (Normal Saline Flush) 3 ml QSHIFT PRN IV AFTER MEDS AND BLOOD DRAWS; Start 09/14/18 at 19:45 Hydromorphone HCl 30 ml @ 0 mls/hr CONT PRN PRN IV PER PROTOCOL Last administered on 09/14/18at 20:25; Start 09/14/18 at 19:45; Stop 09/15/18 at 08:34 ; Status DC Ondansetron HCl (Zofran) 4 mg PRN Q6HRS PRN IV NAUESA, 1ST CHOICE; Start at 19:45 Ringer's Solution 1,000 ml @ 75 mls/hr [id number] IV Last administered on at 21:00; Start 09/14/18 at 21:00; Stop 09/15/18 at 01:45; Status DC Lorazepam (Ativan) 0.5 mg PRN Q6HRS PRN IV ANXIETY / AGITATION; Start 09/14/18 at 22:15 Albumin Human 250 ml @ 83.3 mls/hr 1X ONCE IV Last administered on 09/15/18at 01:15; Start 09/15/18 at 01:00; Stop 09/15/18 at 04:00; Status DC Hydromorphone HCl (Dilaudid) 0.5 mg PRN Q3HRS PRN IV PAIN; Start 09/15/18 at 08 :30 Albumin Human 500 ml @ 125 mls/hr 1X ONCE IV Last administered on 09/15/18at 10:23; Start 09/15/18 at 09:00; Stop 09/15/18 at 12:59; Status DC Sodium Chloride 250 ml @ 500 mls/hr 1X ONCE IV Last administered on at 11:00; Start 09/15/18 at 11:00; Stop 09/15/18 at 11:29; Status DC Sodium Chloride 1,000 ml @ 100 mls/hr Q10H IV Last administered on 09/15/18at 11:30; Start 09/15/18 at 11:30; Stop 09/15/18 at 22:00; Status DC Sodium Chloride 1,000 ml @ 75 mls/hr [id number] IV Last administered on at 20:02; Start 09/15/18 at 22:00 Sodium Acetate 90 meq/Potassium Chloride 50 meq/ Potassium Phosphate 3.4 mmol/ Magnesium Sulfate 10 meq/ Calcium Gluconate 10 meq/ Multivitamins 10 ml/Chromium / Copper/Manganese/ Seleni/Zn 1 ml/ Total Parenteral Nutrition/Amino Acids/ Dextrose/ Fat Emulsion Intravenous 1,512 ml @ 63 mls/hr TPN CONT IV Last administered on 09/15/18at 21:43; Start 09/15/18 at 22:00; Stop 09/16/18 at 21:59 Lidocaine/Sodium Bicarbonate (Buffered Lidocaine 1%) 3 ml STK-MED ONCE .ROUTE ; Start 09/15/18 at 14:35; Stop 09/15/18 at 14:36; Status DC Heparin Sodium/ Sodium Chloride 500 ml @ As Directed STK-MED ONCE .ROUTE ; Start 09/15/18 at 14:35; Stop 09/15/18 at 14:36; Status DC Heparin Sodium/ Sodium Chloride 500 ml @ As Directed STK-MED ONCE .ROUTE ; Start 09/15/18 at 14:36; Stop 09/15/18 at 14:37; Status DC Heparin Sodium/ Sodium Chloride (HEPARIN for ARTERIAL LINE FLUSH) 1,000 unit 1X ONCE IART Last administered on 09/15/18at 15:15; Start 09/15/18 at 15:15; Stop 09/15/18 at 15:16; Status DC Lidocaine/Sodium Bicarbonate (Buffered Lidocaine 1%) 3 ml 1X ONCE IJ Last administered on 09/15/18at 15:15; Start 09/15/18 at 15:15; Stop 09/15/18 at 15:16 ; Status DC Potassium Phosphate 13.6 mmol/Dextrose 104.5333 ml @ 52.267 m... 1X ONCE IV Last administered on 09/16/18at 09:53; Start 09/16/18 at 10:00; Stop 09/16/18 at 11:59 Sodium Acetate 90 meq/Potassium Chloride 50 meq/ Potassium Phosphate 15 mmol/ Magnesium Sulfate 10 meq/Calcium Gluconate 10 meq/ Multivitamins 10 ml/Chromium / Copper/Manganese/ Seleni/Zn 1 ml/ Total Parenteral Nutrition/Amino Acids/ Dextrose/ Fat Emulsion Intravenous 1,512 ml @ 63 mls/hr TPN CONT IV ; Start at 22:00; Stop 09/17/18 at 21:59 Active Scripts Active Magnesium Chloride 70 Mg Tablet.dr 64 Mg PO DAILY 30 Days Synthroid (Levothyroxine Sodium) 88 Mcg Tablet 88 Mcg PO DAILY06 30 Days Prednisone 20 Mg Tablet 20 Mg PO DAILY 30 Days Budesonide 0.5 Mg/2 Ml Ampul.neb 0.5 Mg NEB RTBID 30 Days Diltiazem 24HR Cd (Diltiazem Hcl) 180 Mg Cap.er.24h 180 Mg PO DAILY 90 Days Prednisone (Prednisone) 10 Mg Tablet 40 Mg PO DAILY 30 Days Klor-Con 10 (Potassium Chloride) 10 Meq Tablet.er 1 Tab PO DAILY Lasix (Furosemide) 40 Mg Tablet 1 Tab PO DAILY Aspirin Ec (Aspirin) 81 Mg Tablet.dr 81 Mg PO DAILYWBKFT 30 Days Duoneb 0.5-3(2.5) Mg/3 Ml (Albuterol/Ipratropium) 3 Ml Ampul.neb 3 Ml NEB RTQID 30 Days Diltiazem 24HR Cd (Diltiazem Hcl) 120 Mg Cap.er.24h 120 Mg PO DAILY 30 Days Reported Hydrocodone-Apap 7.5-325 (Hydrocodone Bit/Acetaminophen) 1 Tab Tablet 1 Tab PO PRN Q6HRS PRN Prednisolone Sodium Phosphate (Prednisolone Sod Phosphate) 15 Mg/5 Ml Solution 15 Mg PO DAILY Omeprazole 40 Mg Capsule.dr 40 Mg PO DAILY Cartia Xt (Diltiazem Hcl) 120 Mg Cap.er.24h 120 Mg PO DAILY Wellbutrin Xl (Bupropion Hcl) 150 Mg Tab.er.24h 1 Tab PO DAILY Omeprazole 40 Mg Capsule. 1 Cap PO Vitals/I & O Vital Sign - Last 24 Hours 09/15/18 09/15/18 09/15/18 09/15/18 11:43 12:00 12:00 13:00 Temp 98.5 98.5 Pulse 102 98 Resp 20 18 B/P (MAP) 100/56 (71) 105/60 (75) Pulse Ox 98 100 100 O2 Delivery Nasal Cannula Nasal Cannula Nasal Cannula Nasal Cannula O2 Flow Rate 2.0 2 2.0 2.0 09/15/18 09/15/18 09/15/18 09/15/18 14:00 15:00 15:41 15:44 Temp 98.6 98.6 Pulse 100 100 Resp 22 22 22 B/P (MAP) 110/66 (81) 100/66 (77) Pulse Ox 100 100 99 O2 Delivery Nasal Cannula Nasal Cannula Nasal Cannula Nasal Cannula O2 Flow Rate 2.0 2.0 2.0 2.0 09/15/18 09/15/18 09/15/18 09/15/18 16:00 16:00 16:14 17:00 Pulse 99 110 Resp 20 20 20 B/P (MAP) 95/56 (69) 100/60 (73) Pulse Ox 100 100 100 O2 Delivery Nasal Cannula Nasal Cannula Nasal Cannula Nasal Cannula O2 Flow Rate 2.0 2 2.0 2.0 09/15/18 09/15/18 09/15/18 09/15/18 18:00 18:12 19:00 20:00 Temp 99.2 99.2 99.2 99.2 Pulse 99 114 99 95 Resp 20 15 20 B/P (MAP) 110/60 (77) 110/56 94/60 (71) 108/58 (75) Pulse Ox 100 100 100 O2 Delivery Nasal Cannula Nasal Cannula Nasal Cannula O2 Flow Rate 2.0 2.0 2.0 09/15/18 09/15/18 09/15/18 09/15/18 20:00 20:30 20:30 21:00 Pulse 89 Resp 15 B/P (MAP) 90/55 (67) Pulse Ox 99 99 99 O2 Delivery Nasal Cannula Nasal Cannula Nasal Cannula Nasal Cannula O2 Flow Rate 2.0 2.0 2.0 2.0 09/15/18 09/15/18 09/16/18 09/16/18 22:00 23:00 00:00 00:00 Temp 98.6 98.6 Pulse 89 94 109 Resp 18 18 13 B/P (MAP) 102/62 (75) 129/74 (92) 97/55 (69) Pulse Ox 99 93 95 O2 Delivery Nasal Cannula Nasal Cannula Nasal Cannula Nasal Cannula O2 Flow Rate 2.0 2.0 2.0 2.0 09/16/18 09/16/18 09/16/18 09/16/18 00:02 01:00 02:00 03:00 Pulse 109 88 86 82 Resp 17 20 17 B/P (MAP) 97/55 116/69 (85) 117/70 (86) 95/65 (75) Pulse Ox 98 98 99 O2 Delivery Nasal Cannula Nasal Cannula Nasal Cannula O2 Flow Rate 2.0 2.0 2.0 09/16/18 09/16/18 09/16/18 09/16/18 03:40 04:00 05:00 05:35 Temp 99.1 99.1 Pulse 83 95 102 Resp 18 22 B/P (MAP) 109/65 (80) 151/79 (103) 123/74 Pulse Ox 98 98 O2 Delivery Nasal Cannula Nasal Cannula Nasal Cannula O2 Flow Rate 2.0 2.0 2.0 09/16/18 09/16/18 09/16/18 09/16/18 06:00 07:00 08:00 08:00 Temp 98.4 98.4 Pulse 76 86 90 Resp 15 16 14 B/P (MAP) 99/65 (76) 90/62 (71) 104/62 (76) Pulse Ox 98 97 99 O2 Delivery Nasal Cannula Nasal Cannula Nasal Cannula Nasal Cannula O2 Flow Rate 2.0 2.0 2.0 2.0 09/16/18 09/16/18 08:14 09:00 Pulse 85 Resp 16 B/P (MAP) 121/72 (88) Pulse Ox 99 96 O2 Delivery Nasal Cannula Nasal Cannula O2 Flow Rate 2.0 2.0 Intake and Output 09/15/18 09/15/18 09/16/18 15:00 23:00 07:00 Intake Total 0.75 ml 1581 ml 1665 ml Output Total 195 ml 700 ml 365 ml Balance -194.25 ml 881 ml 1300 ml Nutrition Consultation Dietary Evaluation: Recommendations by RD: PPN/TPN Comments: REC TPN per followin grams dextrose, 65 grams AA, 20 grams lipid Can stop PPN once PICC placed, TPN started Expected Outcomes/Goals: TPN for nutrition needs s/p abdominal surgery Interpretation of weight loss: >5% in 1 month Malnutrition Findings: Food and Nutrition Intake (Sev: <50% est energy req 5days Weight Status: Underweight LOURDES POLLOCK MD Sep 16, 2018 11:29
--- NOTE | 2018-09-16 11:59 | PDOC ---
Renal-Progress Notes Subjective Notes Notes SITTING UP History of Present Illness Hx of present illness BETTER Vitals Vitals Vital Signs Date Time Temp Pulse Resp B/P (MAP) Pulse Ox O2 Delivery O2 Flow Rate FiO2 09/16/18 09:00 85 16 121/72 (88) 96 Nasal Cannula 2.0 09/16/18 07:00 98.4 98.4 Weight Weight [ ] I.O. Intake and Output Intake and Output 09/16/18 06:59 Intake Total 3246.75 ml Output Total 1235 ml Balance 2011.75 ml Intake Oral 0 ml IV Total 3246.75 ml Output Urine Total 935 ml Gastric Drainage Total 300 ml Labs Labs Laboratory Tests Test 09/16/18 04:30 Sodium Level 146 mmol/L (136-145) Potassium Level 3.8 mmol/L (3.5-5.1) Chloride Level 110 mmol/L (98-107) Carbon Dioxide Level 28 mmol/L (21-32) Anion Gap 8 (6-14) Blood Urea Nitrogen 31 mg/dL (8-26) Creatinine 1.2 mg/dL (0.7-1.3) Estimated GFR (Cockcroft-Gault) 58.9 Glucose Level 227 mg/dL (70-99) Calcium Level 8.6 mg/dL (8.5-10.1) Phosphorus Level 1.6 mg/dL (2.6-4.7) Magnesium Level 2.3 mg/dL (1.8-2.4) Triglycerides Level 64 mg/dL (0-150) Review of Systems Constitutional: yes: alert, other (CONFUSED) Physical Exam General Appearance: no apparent distress Skin: warm Respiratory: decreased breath sounds Heart: S1S2 Abdomen: soft, other (HYPOACTIVE) Genitourinary: bladder flat Extremities: pulses present Neurology: alert, confused, other Assessment Assessment IMP ALBERT-BETTER DEHYDRATION HYPERNATREMIA SURGICAL REPAIR OF SBO PLAN ANTIBIOTICS TPN AND IVF'S WILL FOLLOW DESIRE WORRELL MD Sep 16, 2018 11:59
[2018-09-16] MEDS ORDERED: IPRATRPIUM/ALBUTEROL 0.5/2.5MG 3 ML NEBU. NEB SCH (12:00)
--- NOTE | 2018-09-16 12:13 | PDOC ---
SURGICAL PROGRESS NOTE Subjective up to chair sleepy but arouses Vital Signs Vital Signs Date Time Temp Pulse Resp B/P (MAP) Pulse Ox O2 Delivery O2 Flow Rate FiO2 09/16/18 11:54 100 Nasal Cannula 2.0 09/16/18 09:00 85 16 121/72 (88) 09/16/18 07:00 98.4 98.4 I&O Intake and Output 09/16/18 06:59 Intake Total 3246.75 ml Output Total 1235 ml Balance 2011.75 ml Intake Oral 0 ml IV Total 3246.75 ml Output Urine Total 935 ml Gastric Drainage Total 300 ml PATIENT HAS A DELCID: Yes HEENT: Other (NG with small amount of bilious return) Abdomen: Soft Labs Laboratory Tests Test 09/14/18 14:50 09/14/18 21:42 09/14/18 23:25 09/15/18 04:25 White Blood Count 10.7 x10^3/uL (4.0-11.0) 15.2 x10^3/uL (4.0-11.0) Red Blood Count 4.10 x10^6/uL (4.30-5.70) 4.18 x10^6/uL (4.30-5.70) Hemoglobin 13.1 g/dL (13.0-17.5) 13.1 g/dL (13.0-17.5) Hematocrit 39.2 % (39.0-53.0) 40.3 % (39.0-53.0) Mean Corpuscular Volume 96 fL (79-100) 96 fL (79-100) Mean Corpuscular Hemoglobin 32 pg (25-35) 31 pg (25-35) Mean Corpuscular Hemoglobin Concent 34 g/dL (31-37) 33 g/dL (31-37) Red Cell Distribution Width 14.3 % (11.5-14.5) 14.3 % (11.5-14.5) Platelet Count 266 x10^3/uL (140-400) 219 x10^3/uL (140-400) Neutrophils (%) (Auto) 80 % (31-73) 94 % (31-73) Lymphocytes (%) (Auto) 8 % (24-48) 2 % (24-48) Monocytes (%) (Auto) 12 % (0-9) 5 % (0-9) Eosinophils (%) (Auto) 0 % (0-3) 0 % (0-3) Basophils (%) (Auto) 0 % (0-3) 0 % (0-3) Neutrophils # (Auto) 8.5 x10^3uL (1.8-7.7) 14.2 x10^3uL (1.8-7.7) Lymphocytes # (Auto) 0.9 x10^3/uL (1.0-4.8) 0.3 x10^3/uL (1.0-4.8) Monocytes # (Auto) 1.2 x10^3/uL (0.0-1.1) 0.7 x10^3/uL (0.0-1.1) Eosinophils # (Auto) 0.0 x10^3/uL (0.0-0.7) 0.0 x10^3/uL (0.0-0.7) Basophils # (Auto) 0.0 x10^3/uL (0.0-0.2) 0.0 x10^3/uL (0.0-0.2) Sodium Level 147 mmol/L (136-145) 147 mmol/L (136-145) Potassium Level 3.7 mmol/L (3.5-5.1) 3.6 mmol/L (3.5-5.1) Chloride Level 106 mmol/L (98-107) 107 mmol/L (98-107) Carbon Dioxide Level 27 mmol/L (21-32) 19 mmol/L (21-32) Anion Gap 14 (6-14) 21 (6-14) Blood Urea Nitrogen 28 mg/dL (8-26) 32 mg/dL (8-26) Creatinine 1.0 mg/dL (0.7-1.3) 1.6 mg/dL (0.7-1.3) Estimated GFR (Cockcroft-Gault) 72.6 42.2 BUN/Creatinine Ratio 28 (6-20) Glucose Level 82 mg/dL (70-99) 142 mg/dL (70-99) Calcium Level 9.5 mg/dL (8.5-10.1) 8.8 mg/dL (8.5-10.1) Phosphorus Level 3.1 mg/dL (2.6-4.7) 5.2 mg/dL (2.6-4.7) Total Bilirubin 0.8 mg/dL (0.2-1.0) Aspartate Amino Transf (AST/SGOT) 15 U/L (15-37) Alanine Aminotransferase (ALT/SGPT) 13 U/L (16-63) Alkaline Phosphatase 70 U/L (46-116) Total Protein 6.5 g/dL (6.4-8.2) Albumin 2.9 g/dL (3.4-5.0) Albumin/Globulin Ratio 0.8 (1.0-1.7) O2 Saturation 97 % (92-99) Arterial Blood pH 7.39 (7.35-7.45) Arterial Blood pCO2 at Patient Temp 30 mmHg (35-46) Arterial Blood pO2 at Patient Temp 101 mmHg (65-108) Arterial Blood HCO3 18 mmol/L (21-28) Arterial Blood Base Excess -6 mmol/L (-3-3) FiO2 28 Nasal Screen MRSA (PCR) Negative (Negative) Segmented Neutrophils % 44 % (35-66) Band Neutrophils % 48 % (0-9) Monocytes % 7 % (0-10) Metamyelocytes % 1 % (0-0) Platelet Estimate Adequate (ADEQUATE) Giant Platelets Present Magnesium Level 1.9 mg/dL (1.8-2.4) Test 09/16/18 04:30 Sodium Level 146 mmol/L (136-145) Potassium Level 3.8 mmol/L (3.5-5.1) Chloride Level 110 mmol/L (98-107) Carbon Dioxide Level 28 mmol/L (21-32) Anion Gap 8 (6-14) Blood Urea Nitrogen 31 mg/dL (8-26) Creatinine 1.2 mg/dL (0.7-1.3) Estimated GFR (Cockcroft-Gault) 58.9 Glucose Level 227 mg/dL (70-99) Calcium Level 8.6 mg/dL (8.5-10.1) Phosphorus Level 1.6 mg/dL (2.6-4.7) Magnesium Level 2.3 mg/dL (1.8-2.4) Triglycerides Level 64 mg/dL (0-150) Laboratory Tests Test 09/16/18 04:30 Sodium Level 146 mmol/L (136-145) Potassium Level 3.8 mmol/L (3.5-5.1) Chloride Level 110 mmol/L (98-107) Carbon Dioxide Level 28 mmol/L (21-32) Anion Gap 8 (6-14) Blood Urea Nitrogen 31 mg/dL (8-26) Creatinine 1.2 mg/dL (0.7-1.3) Estimated GFR (Cockcroft-Gault) 58.9 Glucose Level 227 mg/dL (70-99) Calcium Level 8.6 mg/dL (8.5-10.1) Phosphorus Level 1.6 mg/dL (2.6-4.7) Magnesium Level 2.3 mg/dL (1.8-2.4) Triglycerides Level 64 mg/dL (0-150) Problem List Problems Medical Problems: (1) Generalized weakness Status: Acute Assessment/Plan POD 2 ex lap NG trial in AM OK to move to floor SHAKEEL SOMMER MD Sep 16, 2018 12:13
--- NOTE | 2018-09-16 16:09 | NUR ---
SS following up with discharge planning. PT [facility]. airport planner, Jesica Valladares, attempted to meet with pt but pt was having some confusion. She contacted pt's spouse and pt's spouse agreeable to penitentiary unit and requested referral be sent to [facility], ; fax [phone]. airport planner phoned and faxed referral to [facility]. SS will await acceptance decision and will proceed accordingly.
[2018-09-16] MEDS: IV NORMAL SALINE 1000ML BAG 1,000 ML IV SCH (18:05)
--- NOTE | 2018-09-16 18:18 | NUR ---
Patient extremely upset because he is not able to eat at this time. Explained rationale for NPO and patient continues to be upset.
[2018-09-16] MEDS ORDERED: TOTAL PARENTERAL NUTRITION IV SCH ×10 (22:00)
[2018-09-16] MEDS ORDERED: AMINO ACID IV SCH ×10 (22:00)
[2018-09-16] MEDS ORDERED: DEXTROSE 70% IV SCH ×10 (22:00)
[2018-09-16] MEDS ORDERED: [UNRECOGNIZED DRUG - OTHER] IV SCH ×10 (22:00)
--- NOTE | 2018-09-16 23:30 | NUR ---
Report rcvd from PURVI Chavarria, pt transferred from ICU at approx 2250, and pt orientated to room. Pt's vitals stable, A&O x 3, admission assessment complete, and resting in bed at this time, will continue to monitor.
[2018-09-17] MEDS: IV NORMAL SALINE 1000ML BAG 1,000 ML IV SCH (00:12)
[2018-09-17] MEDS: METOPROLOL TARTRATE 5 MG/5 ML VIAL. IVP SCH ×5 (00:14→23:27)
[2018-09-17] MEDS: MORPHINE SULFATE 4 MG/ML VIAL. IV PRN ×4 (00:15→21:38)
[2018-09-17 03:53] VITALS: BP 147/92
[2018-09-17] MEDS: PANTOPRAZOLE IV PUSH 40 MG VIAL. IVP SCH (06:01)
[2018-09-17 06:21] LABS: CALCIUM 8.8 mg/dL (8.5-10.1); CREATININE 0.7 mg/dL (0.7-1.3); GFR 109.6; MAGNESIUM 2.2 mg/dL (1.8-2.4); PHOSPHORUS 1.4 mg/dL (2.6-4.7); POTASSIUM 4.1 mmol/L (3.5-5.1)
[2018-09-17 08:00] VITALS: BP 143/79
--- NOTE | 2018-09-17 08:44 | PDOC ---
PULMONARY PROGRESS NOTES Subjective PT NOT MORE SOA Vitals Vital Signs Date Time Temp Pulse Resp B/P (MAP) Pulse Ox O2 Delivery O2 Flow Rate FiO2 09/17/18 08:00 97.6 67 18 143/79 (100) 88 Nasal Cannula 2.0 97.6 ROS: No Nausea, No Chest Pain, No Abdominal Pain, No Increase Cough General: Alert Lungs: Crackles Cardiovascular: S1, S2 Abdomen: Soft, Non-tender Neuro Exam: Alert Extremities: No Edema, Other Skin: Warm Labs Laboratory Tests Test 09/16/18 04:30 09/17/18 05:45 Sodium Level 146 mmol/L (136-145) 146 mmol/L (136-145) Potassium Level 3.8 mmol/L (3.5-5.1) 4.1 mmol/L (3.5-5.1) Chloride Level 110 mmol/L (98-107) 110 mmol/L (98-107) Carbon Dioxide Level 28 mmol/L (21-32) 30 mmol/L (21-32) Anion Gap 8 (6-14) 6 (6-14) Blood Urea Nitrogen 31 mg/dL (8-26) 19 mg/dL (8-26) Creatinine 1.2 mg/dL (0.7-1.3) 0.7 mg/dL (0.7-1.3) Estimated GFR (Cockcroft-Gault) 58.9 109.6 Glucose Level 227 mg/dL (70-99) 205 mg/dL (70-99) Calcium Level 8.6 mg/dL (8.5-10.1) 8.8 mg/dL (8.5-10.1) Phosphorus Level 1.6 mg/dL (2.6-4.7) 1.4 mg/dL (2.6-4.7) Magnesium Level 2.3 mg/dL (1.8-2.4) 2.2 mg/dL (1.8-2.4) Triglycerides Level 64 mg/dL (0-150) Laboratory Tests Test 09/17/18 05:45 Sodium Level 146 mmol/L (136-145) Potassium Level 4.1 mmol/L (3.5-5.1) Chloride Level 110 mmol/L (98-107) Carbon Dioxide Level 30 mmol/L (21-32) Anion Gap 6 (6-14) Blood Urea Nitrogen 19 mg/dL (8-26) Creatinine 0.7 mg/dL (0.7-1.3) Estimated GFR (Cockcroft-Gault) 109.6 Glucose Level 205 mg/dL (70-99) Calcium Level 8.8 mg/dL (8.5-10.1) Phosphorus Level 1.4 mg/dL (2.6-4.7) Magnesium Level 2.2 mg/dL (1.8-2.4) Medications Active Scripts Medications Dose Route/Sig Max Daily Dose Days Date Category Magnesium Chloride 70 Mg Tablet.dr 64 Mg PO DAILY 08/30/18 Rx Synthroid (Levothyroxine Sodium) 88 Mcg Tablet 88 Mcg PO DAILY06 08/30/18 Rx Prednisone 20 Mg Tablet 20 Mg PO DAILY 08/30/18 Rx Budesonide 0.5 Mg/2 Ml Ampul.neb 0.5 Mg NEB RTBID 08/30/18 Rx Diltiazem 24HR Cd (Diltiazem Hcl) 180 Mg Cap.er.24h 180 Mg PO DAILY 08/30/18 Rx Hydrocodone-Apap 7.5-325 (Hydrocodone Bit/Acetaminophen) 1 Tab Tablet 1 Tab PO PRN Q6HRS PRN 08/26/18 Reported Prednisolone Sodium Phosphate (Prednisolone Sod Phosphate) 15 Mg/5 Ml Solution 15 Mg PO DAILY 08/26/18 Reported Omeprazole 40 Mg Capsule.dr 40 Mg PO DAILY 08/26/18 Reported Cartia Xt (Diltiazem Hcl) 120 Mg Cap.er.24h 120 Mg PO DAILY 08/26/18 Reported Prednisone (Prednisone) 10 Mg Tablet 40 Mg PO DAILY 07/16/18 Rx Klor-Con 10 (Potassium Chloride) 10 Meq Tablet.er 1 Tab PO DAILY 07/16/18 Rx Lasix (Furosemide) 40 Mg Tablet 1 Tab PO DAILY 07/16/18 Rx Aspirin Ec (Aspirin) 81 Mg Tablet. 81 Mg PO DAILYWBKFT 07/16/18 Rx Duoneb 0.5-3(2.5) Mg/3 Ml (Albuterol/Ipratropium) 3 Ml Ampul.neb 3 Ml NEB RTQID 07/01/18 Rx Diltiazem 24HR Cd (Diltiazem Hcl) 120 Mg Cap.er.24h 120 Mg PO DAILY 07/01/18 Rx Wellbutrin Xl (Bupropion Hcl) 150 Mg Tab.er.24h 1 Tab PO DAILY 06/30/18 Reported Omeprazole 40 Mg Capsule.dr Maciel Cap PO 10/25/14 Reported Impression . IMPRESSION: 1. Chronic respiratory failure. 2. Pulmonary fibrosis. 3. Small-bowel obstruction. S/P SURGERY SEE BELOW 4. Other comorbidities as indicated above. PREOPERATIVE DIAGNOSIS: Small bowel obstruction. POSTOPERATIVE DIAGNOSIS: Small bowel obstruction, secondary to adhesive band. PROCEDURE: Diagnostic laparoscopy, followed by laparotomy with release of small-bowel obstruction and decompression of the small bowel. Plan . SPOKE WITH DR SOMMER NEEDS NG TUBE PT SOMEWHAT FRUSTRATED TPN for nutrition nebulizer treatments incentive spirometry JON EDWARDS MD Sep 17, 2018 08:44
[2018-09-17] MEDS: methylPREDNISolone SOD SUCC PF 125 MG/2 ML VIAL. IV SCH (09:14)
[2018-09-17] MEDS: BUDESONIDE 0.5 MG/2 ML NEBU. NEB SCH ×2 (09:34→19:38)
[2018-09-17] MEDS: IPRATRPIUM/ALBUTEROL 0.5/2.5MG 3 ML NEBU. NEB SCH ×4 (09:34→19:38)
--- NOTE | 2018-09-17 10:19 | NUR ---
SW following for discharge planning. Discussed with RN. Pt has been accepted at [facility]. Pt still has an NG tube. SW will continue to follow.
--- NOTE | 2018-09-17 10:41 | PDOC ---
PROGRESS NOTES Subjective Subjective Patient continues to have NG. Objective Objective Vital Signs Date Time Temp Pulse Resp B/P (MAP) Pulse Ox O2 Delivery O2 Flow Rate FiO2 09/17/18 09:34 90 Nasal Cannula 2.0 09/17/18 08:00 97.6 67 18 143/79 (100) 97.6 Intake and Output 09/17/18 07:00 Intake Total 1698.64 ml Output Total 1870 ml Balance -171.36 ml Intake Oral 0 ml IV Total 1698.64 ml Output Urine Total 1870 ml Physical Exam Heart: Regular rate Extremities: No edema General: Alert Lungs: Other (coarse breath sounds) Assessment Assessment Problems Medical Problems: (1) Generalized weakness Status: Acute Small bowel obstruction. S/P open lap lysis of adhesion and SBO take down POD #3 Ileus s/p ALBERT improved with IV fluids PAST MEDICAL HISTORY: Significant for: 1. Pulmonary fibrosis. 2. COPD. 3. SVT. 4. Hypertension. 5. Osteoarthritis. 6. Gastroesophageal reflux disease, status post dilatation of stricture. 7. Hypothyroidism. 8. BPH. 9. Zxbux-av-[id number] diastolic congestive heart failure. 10. Severe protein malnutrition. 11. History of prostate cancer. 12. History of hepatitis C. 13. Major depression. Plan Plan of Care Proceed with PT/OT to snf when stable TPN on going Await bowel function Comment Review of Relevant I have reviewed the following items sherine (where applicable) has been applied. Labs Laboratory Tests Test 09/16/18 04:30 09/17/18 05:45 Sodium Level 146 mmol/L (136-145) 146 mmol/L (136-145) Potassium Level 3.8 mmol/L (3.5-5.1) 4.1 mmol/L (3.5-5.1) Chloride Level 110 mmol/L (98-107) 110 mmol/L (98-107) Carbon Dioxide Level 28 mmol/L (21-32) 30 mmol/L (21-32) Anion Gap 8 (6-14) 6 (6-14) Blood Urea Nitrogen 31 mg/dL (8-26) 19 mg/dL (8-26) Creatinine 1.2 mg/dL (0.7-1.3) 0.7 mg/dL (0.7-1.3) Estimated GFR (Cockcroft-Gault) 58.9 109.6 Glucose Level 227 mg/dL (70-99) 205 mg/dL (70-99) Calcium Level 8.6 mg/dL (8.5-10.1) 8.8 mg/dL (8.5-10.1) Phosphorus Level 1.6 mg/dL (2.6-4.7) 1.4 mg/dL (2.6-4.7) Magnesium Level 2.3 mg/dL (1.8-2.4) 2.2 mg/dL (1.8-2.4) Triglycerides Level 64 mg/dL (0-150) Laboratory Tests Test 09/17/18 05:45 Sodium Level 146 mmol/L (136-145) Potassium Level 4.1 mmol/L (3.5-5.1) Chloride Level 110 mmol/L (98-107) Carbon Dioxide Level 30 mmol/L (21-32) Anion Gap 6 (6-14) Blood Urea Nitrogen 19 mg/dL (8-26) Creatinine 0.7 mg/dL (0.7-1.3) Estimated GFR (Cockcroft-Gault) 109.6 Glucose Level 205 mg/dL (70-99) Calcium Level 8.8 mg/dL (8.5-10.1) Phosphorus Level 1.4 mg/dL (2.6-4.7) Magnesium Level 2.2 mg/dL (1.8-2.4) Medications Current Medications Famotidine (Pepcid Vial) 20 mg 1X ONCE IVP Last administered on 09/12/18at 18: 07; Start 09/12/18 at 17:45; Stop 09/12/18 at 17:46; Status DC Ondansetron HCl (Zofran) 4 mg 1X ONCE IV Last administered on 09/12/18at 18:07 ; Start 09/12/18 at 17:45; Stop 09/12/18 at 17:46; Status DC Iohexol (Omnipaque 300 Mg/ml) 75 ml 1X ONCE IV Last administered on 09/12/18at 18:35; Start 09/12/18 at 18:30; Stop 09/12/18 at 18:34; Status DC Info (CONTRAST GIVEN -- Rx MONITORING) 1 each PRN DAILY PRN MC SEE COMMENTS; Start 09/12/18 at 18:45; Stop 09/14/18 at 18:44; Status DC Fentanyl Citrate (Fentanyl 2ml Vial) 50 mcg 1X ONCE IV Last administered on 20:21; Start 09/12/18 at 20:00; Stop 09/12/18 at 20:01; Status DC Ondansetron HCl (Zofran) 4 mg PRN Q8HRS PRN IV NAUSEA/VOMITING; Start 09/12/18 at 20:30; Stop 09/13/18 at 20:29; Status DC Morphine Sulfate (Morphine Sulfate) 4 mg PRN Q2HR PRN IV PAIN Last administered on 09/13/18 10:20; Start 09/12/18 at 20:30; Stop 09/13/18 at 20:29 ; Status DC Metronidazole 100 ml @ 100 mls/hr Q8HRS IV Last administered on 09/17/18 06: 01; Start 09/12/18 at 22:00 Ciprofloxacin/ Dextrose 200 ml @ 200 mls/hr 1X ONCE IV Last administered on 22:51; Start 09/12/18 at 20:30; Stop 09/12/18 at 21:29; Status DC Sodium Chloride 1,000 ml @ 75 mls/hr 1X ONCE IV Last administered on 22:51; Start 09/12/18 at 20:30; Stop 09/13/18 at 09:49; Status DC Budesonide (Pulmicort) 0.5 mg RTBID NEB Last administered on 09/17/18 09:34; Start 09/13/18 at 09:30 Albuterol/ Ipratropium (Duoneb) 3 ml RTQID NEB Last administered on 09/17/18 09:34; Start 09/13/18 at 09:30 Methylprednisolone Sodium Succinate (SOLU-Medrol 40MG VIAL) 20 mg DAILY IV Last administered on 09/13/18 10:21; Start 09/13/18 at 10:00; Stop 09/14/18 at 12:55; Status DC Pantoprazole Sodium (PROTONIX VIAL for IV PUSH) 40 mg DAILYAC IVP Last administered on 09/17/18 06:01; Start 09/13/18 at 10:00 Enoxaparin Sodium (Lovenox 40mg Syringe) 40 mg Q24H SQ Last administered on 2/ 14/19at 09:53; Start 09/13/18 at 10:00 Metoprolol Tartrate (Lopressor Vial) 5 mg Q6HRS IVP Last administered on at 06:00; Start 09/13/18 at 14:00 Potassium Chloride/Water 100 ml @ 100 mls/hr Q1H IV Last administered on at 17:10; Start 09/13/18 at 14:00; Stop 09/13/18 at 17:59; Status DC Throat Lozenges (Chloraseptic) 1 spray PRN Q2HR PRN PO SORE THROAT, 2nd choice Last administered on 09/14/18at 13:47; Start 09/13/18 at 16:45 Throat Lozenges (Cepacol Sore Throat Lozenge) 1 deniz PRN Q2HRS PRN PO SORE THROAT, 1st choice Last administered on 09/14/18at 13:46; Start 09/13/18 at 16:45 Aspirin (Aspirin) 300 mg DAILY VT Last administered on 09/16/18at 08:26; Start 09/14/18 at 09:00 Morphine Sulfate (Morphine Sulfate) 4 mg PRN Q2HR PRN IV PAIN Last administered on 09/17/18at 06:00; Start 09/13/18 at 21:15 Barium Sulfate (E-Z-Hd) 680 gm 1X ONCE PO ; Start 09/14/18 at 08:00; Stop 09/14 at 08:01; Status DC Iohexol (Omnipaque 300 Mg/ml) 400 ml 1X ONCE PO Last administered on at 08:00; Start 09/14/18 at 08:00; Stop 09/14/18 at 08:01; Status DC Info (CONTRAST GIVEN -- Rx MONITORING) 1 each PRN DAILY PRN MC SEE COMMENTS; Start 09/14/18 at 08:00; Stop 09/16/18 at 07:59; Status DC Potassium Chloride/Water 100 ml @ 100 mls/hr Q1H IV ; Start 09/14/18 at 09:00; Stop 09/14/18 at 12:59; Status DC Methylprednisolone Sodium Succinate (SOLU-Medrol 125MG VIAL) 125 mg DAILY IV Last administered on 09/17/18at 09:14; Start 09/15/18 at 09:00 Info (Tpn Per Pharmacy) 1 each PRN DAILY PRN MC SEE COMMENTS Last administered on 09/14/18 13:51; Start 09/14/18 at 13:30; Stop 09/14/18 at 14:27; Status DC Info (Tpn Per Pharmacy) 1 each PRN DAILY PRN MC SEE COMMENTS Last administered on 09/16/18at 10:41; Start 09/15/18 at 14:30 Amino Acids/ Glycerin/ Electrolytes 1,000 ml @ 80 mls/hr [id number] IV Last administered on 09/15/18at 03:32; Start 09/14/18 at 14:30; Stop 09/15/18 at 21:59 ; Status DC Cefazolin Sodium/ Dextrose 50 ml @ 100 mls/hr 1X PREOP PRN IV protocol Last administered on 09/14/18at 17:40; Start 09/15/18 at 06:00; Stop 09/15/18 at 18:00 ; Status DC Metronidazole 100 ml @ 100 mls/hr 1X PREOP PRN IV protocol; Start 09/15/18 at 06:00; Stop 09/15/18 at 18:00; Status DC Ondansetron HCl (Zofran) 4 mg PRN Q6HRS PRN IV NAUSEA/VOMITING; Start 09/14/18 at 16:00; Stop 09/15/18 at 01:45; Status DC Fentanyl Citrate (Fentanyl 2ml Vial) 25 mcg PRN Q5MIN PRN IV MILD PAIN; Start 09/14/18 at 16:00; Stop 09/15/18 at 01:40; Status DC Fentanyl Citrate (Fentanyl 2ml Vial) 50 mcg PRN Q5MIN PRN IV MODERATE TO SEVERE PAIN Last administered on 09/14/18 20:27; Start 09/14/18 at 16:00; Stop 09/15/18 at 01:40; Status DC Morphine Sulfate (Morphine Sulfate) 1 mg PRN Q10MIN PRN IV SEVERE PAIN Last administered on 09/14/18 21:51; Start 09/14/18 at 16:00; Stop 09/15/18 at 01:40 ; Status DC Ringer's Solution 1,000 ml @ 30 mls/hr Q24H IV Last administered on 09/14/18at 21:30; Start 09/14/18 at 15:52; Stop 09/15/18 at 01:40; Status DC Lidocaine HCl (Xylocaine-Mpf 1% 2ml Vial) 2 ml 1X PRN PRN ID IV START; Start at 16:00; Stop 09/15/18 at 15:59; Status DC Hydromorphone HCl (Dilaudid) 0.5 mg PRN Q10MIN PRN IV SEV PAIN, Second choice; Start 09/14/18 at 16:00; Stop 09/15/18 at 01:45; Status DC Prochlorperazine Edisylate (Compazine) 5 mg PACU PRN PRN IV NAUSEA, MRX1 Last administered on 09/14/18at 21:02; Start 09/14/18 at 16:00; Stop 09/15/18 at 01:40 ; Status DC Cefazolin Sodium/ Dextrose 50 ml @ As Directed STK-MED ONCE IV ; Start 09/14/18 at 16:08; Stop 09/14/18 at 16:09; Status DC Propofol 20 ml @ As Directed STK-MED ONCE IV ; Start 09/14/18 at 16:32; Stop 07/21 at 16:33; Status DC Dexamethasone Sodium Phosphate (Decadron) 20 mg STK-MED ONCE .ROUTE ; Start 07/21 at 16:32; Stop 09/14/18 at 16:33; Status DC Lidocaine HCl (Lidocaine Pf 2% Vial) 5 ml STK-MED ONCE .ROUTE ; Start 09/14/18 at 16:32; Stop 09/14/18 at 16:33; Status DC Ondansetron HCl (Zofran) 4 mg STK-MED ONCE .ROUTE ; Start 09/14/18 at 16:32; Stop 09/14/18 at 16:33; Status DC Succinylcholine Chloride (Anectine) 200 mg STK-MED ONCE .ROUTE ; Start 09/14/18 at 16:32; Stop 09/14/18 at 16:33; Status DC Rocuronium [place] (Zemuron) 50 mg STK-MED ONCE .ROUTE ; Start 09/14/18 at 16:32 ; Stop 09/14/18 at 16:33; Status DC Fentanyl Citrate (Fentanyl 2ml Vial) 100 mcg STK-MED ONCE .ROUTE ; Start at 16:32; Stop 09/14/18 at 16:33; Status DC Bupivacaine HCl/ Epinephrine Bitart (Sensorcain-Mpf Epi 0.5%-1:[id number]) 30 ml STK -MED ONCE .ROUTE Last administered on 09/14/18at 17:57; Start 09/14/18 at 17:18 ; Stop 09/14/18 at 17:19; Status DC Cefazolin Sodium/ Dextrose 50 ml @ As Directed STK-MED ONCE IV ; Start 09/14/18 at 17:28; Stop 09/14/18 at 17:29; Status DC Lidocaine HCl (Glydo (Lidocaine) Jelly) 6 marcel STK-MED ONCE .ROUTE ; Start at 17:43; Stop 09/14/18 at 17:44; Status DC Hydrocortisone Sodium Succinate (Solu-CORTEF) 100 mg STK-MED ONCE .ROUTE ; Start 09/14/18 at 18:08; Stop 09/14/18 at 18:09; Status DC Phenylephrine HCl (Shaw-Synephrine Inj) 10 mg STK-MED ONCE .ROUTE ; Start at 18:11; Stop 09/14/18 at 18:12; Status DC Glycopyrrolate (Robinul) 1 mg STK-MED ONCE .ROUTE ; Start 09/14/18 at 19:05; Stop 09/14/18 at 19:06; Status DC Sevoflurane (Ultane) 60 ml STK-MED ONCE IH ; Start 09/14/18 at 19:23; Stop 09/14 at 19:24; Status DC Enoxaparin Sodium (Lovenox 40mg Syringe) 30 mg Q24H SQ ; Start 09/14/18 at 19:45 ; Status UNV Sodium Chloride (Normal Saline Flush) 3 ml QSHIFT PRN IV AFTER MEDS AND BLOOD DRAWS; Start 09/14/18 at 19:45 Hydromorphone HCl 30 ml @ 0 mls/hr CONT PRN PRN IV PER PROTOCOL Last administered on 09/14/18at 20:25; Start 09/14/18 at 19:45; Stop 09/15/18 at 08:34 ; Status DC Ondansetron HCl (Zofran) 4 mg PRN Q6HRS PRN IV NAUESA, 1ST CHOICE; Start at 19:45 Ringer's Solution 1,000 ml @ 75 mls/hr [id number] IV Last administered on at 21:00; Start 09/14/18 at 21:00; Stop 09/15/18 at 01:45; Status DC Lorazepam (Ativan) 0.5 mg PRN Q6HRS PRN IV ANXIETY / AGITATION; Start 09/14/18 at 22:15 Albumin Human 250 ml @ 83.3 mls/hr 1X ONCE IV Last administered on 09/15/18at 01:15; Start 09/15/18 at 01:00; Stop 09/15/18 at 04:00; Status DC Hydromorphone HCl (Dilaudid) 0.5 mg PRN Q3HRS PRN IV PAIN; Start 09/15/18 at 08 :30 Albumin Human 500 ml @ 125 mls/hr 1X ONCE IV Last administered on 09/15/18at 10:23; Start 09/15/18 at 09:00; Stop 09/15/18 at 12:59; Status DC Sodium Chloride 250 ml @ 500 mls/hr 1X ONCE IV Last administered on at 11:00; Start 09/15/18 at 11:00; Stop 09/15/18 at 11:29; Status DC Sodium Chloride 1,000 ml @ 100 mls/hr Q10H IV Last administered on 09/15/18at 11:30; Start 09/15/18 at 11:30; Stop 09/15/18 at 22:00; Status DC Sodium Chloride 1,000 ml @ 75 mls/hr [id number] IV Last administered on at 00:12; Start 09/15/18 at 22:00 Sodium Acetate 90 meq/Potassium Chloride 50 meq/ Potassium Phosphate 3.4 mmol/ Magnesium Sulfate 10 meq/ Calcium Gluconate 10 meq/ Multivitamins 10 ml/Chromium / Copper/Manganese/ Seleni/Zn 1 ml/ Total Parenteral Nutrition/Amino Acids/ Dextrose/ Fat Emulsion Intravenous 1,512 ml @ 63 mls/hr TPN CONT IV Last administered on 09/15/18at 21:43; Start 09/15/18 at 22:00; Stop 09/16/18 at 21:59 ; Status DC Lidocaine/Sodium Bicarbonate (Buffered Lidocaine 1%) 3 ml [facility]-MED ONCE .ROUTE ; Start 09/15/18 at 14:35; Stop 09/15/18 at 14:36; Status DC Heparin Sodium/ Sodium Chloride 500 ml @ As Directed STK-MED ONCE .ROUTE ; Start 09/15/18 at 14:35; Stop 09/15/18 at 14:36; Status DC Heparin Sodium/ Sodium Chloride 500 ml @ As Directed STK-MED ONCE .ROUTE ; Start 09/15/18 at 14:36; Stop 09/15/18 at 14:37; Status DC Heparin Sodium/ Sodium Chloride (HEPARIN for ARTERIAL LINE FLUSH) 1,000 unit 1X ONCE IART Last administered on 09/15/18at 15:15; Start 09/15/18 at 15:15; Stop 09/15/18 at 15:16; Status DC Lidocaine/Sodium Bicarbonate (Buffered Lidocaine 1%) 3 ml 1X ONCE IJ Last administered on 09/15/18at 15:15; Start 09/15/18 at 15:15; Stop 09/15/18 at 15:16 ; Status DC Potassium Phosphate 13.6 mmol/Dextrose 104.5333 ml @ 52.267 m... 1X ONCE IV Last administered on 09/16/18at 09:53; Start 09/16/18 at 10:00; Stop 09/16/18 at 11:59; Status DC Sodium Acetate 90 meq/Potassium Chloride 50 meq/ Potassium Phosphate 15 mmol/ Magnesium Sulfate 10 meq/Calcium Gluconate 10 meq/ Multivitamins 10 ml/Chromium / Copper/Manganese/ Seleni/Zn 1 ml/ Total Parenteral Nutrition/Amino Acids/ Dextrose/ Fat Emulsion Intravenous 1,512 ml @ 63 mls/hr TPN CONT IV Last administered on 09/16/18at 21:49; Start 09/16/18 at 22:00; Stop 09/17/18 at 21:59 Albuterol/ Ipratropium (Duoneb) 3 ml RTQID NEB ; Start 09/16/18 at 12:00; Stop 09/16/18 at 12:00; Status DC Active Scripts Active Magnesium Chloride 70 Mg Tablet.dr 64 Mg PO DAILY 30 Days Synthroid (Levothyroxine Sodium) 88 Mcg Tablet 88 Mcg PO DAILY06 30 Days Prednisone 20 Mg Tablet 20 Mg PO DAILY 30 Days Budesonide 0.5 Mg/2 Ml Ampul.neb 0.5 Mg NEB RTBID 30 Days Diltiazem 24HR Cd (Diltiazem Hcl) 180 Mg Cap.er.24h 180 Mg PO DAILY 90 Days Prednisone (Prednisone) 10 Mg Tablet 40 Mg PO DAILY 30 Days Klor-Con 10 (Potassium Chloride) 10 Meq Tablet.er 1 Tab PO DAILY Lasix (Furosemide) 40 Mg Tablet 1 Tab PO DAILY Aspirin Ec (Aspirin) 81 Mg Tablet. 81 Mg PO DAILYWBKFT 30 Days Duoneb 0.5-3(2.5) Mg/3 Ml (Albuterol/Ipratropium) 3 Ml Ampul.neb 3 Ml NEB RTQID 30 Days Diltiazem 24HR Cd (Diltiazem Hcl) 120 Mg Cap.er.24h 120 Mg PO DAILY 30 Days Reported Hydrocodone-Apap 7.5-325 (Hydrocodone Bit/Acetaminophen) 1 Tab Tablet 1 Tab PO PRN Q6HRS PRN Prednisolone Sodium Phosphate (Prednisolone Sod Phosphate) 15 Mg/5 Ml Solution 15 Mg PO DAILY Omeprazole 40 Mg Capsule. 40 Mg PO DAILY Cartia Xt (Diltiazem Hcl) 120 Mg Cap.er.24h 120 Mg PO DAILY Wellbutrin Xl (Bupropion Hcl) 150 Mg Tab.er.24h 1 Tab PO DAILY Omeprazole 40 Mg Capsule. 1 Cap PO Vitals/I & O Vital Sign - Last 24 Hours 09/16/18 09/16/18 09/16/18 09/16/18 11:54 12:00 12:00 15:48 Temp 98.3 98.3 Pulse 84 91 Resp 16 B/P (MAP) 148/87 (107) 166/93 Pulse Ox 100 100 O2 Delivery Nasal Cannula Nasal Cannula Nasal Cannula O2 Flow Rate 2.0 2.0 2.0 09/16/18 09/16/18 09/16/18 09/16/18 16:00 16:00 16:53 18:06 Temp 98.6 98.6 Pulse 79 100 Resp 16 B/P (MAP) 142/87 (105) 132/77 Pulse Ox 100 100 O2 Delivery Nasal Cannula Nasal Cannula Nasal Cannula O2 Flow Rate 2.0 2.0 2.0 09/16/18 09/16/18 09/16/18 09/16/18 18:47 19:20 19:40 20:00 Temp 97.6 97.6 Pulse 78 Resp 16 12 B/P (MAP) 147/91 (109) Pulse Ox 100 100 O2 Delivery Nasal Cannula Nasal Cannula Nasal Cannula O2 Flow Rate 2.0 2.0 2.0 09/16/18 09/16/18 09/17/18 09/17/18 22:47 23:30 00:14 00:15 Temp 97.5 97.5 Pulse 80 87 Resp 18 16 B/P (MAP) 153/89 (110) 146/89 Pulse Ox 100 97 O2 Delivery Nasal Cannula Nasal Cannula Nasal Cannula O2 Flow Rate 2.0 2.0 2.0 09/17/18 09/17/18 09/17/18 09/17/18 03:53 06:00 06:00 06:30 Temp 97.5 97.5 Pulse 73 77 Resp 18 20 20 B/P (MAP) 147/92 (110) 141/87 Pulse Ox 90 90 90 O2 Delivery Nasal Cannula Nasal Cannula Nasal Cannula O2 Flow Rate 3.0 2.0 2.0 09/17/18 09/17/18 08:00 09:34 Temp 97.6 97.6 Pulse 67 Resp 18 B/P (MAP) 143/79 (100) Pulse Ox 88 90 O2 Delivery Nasal Cannula Nasal Cannula O2 Flow Rate 2.0 2.0 Intake and Output 09/16/18 09/16/18 09/17/18 15:00 23:00 07:00 Intake Total 0 ml 1698.64 ml 0 ml Output Total 145 ml 775 ml 950 ml Balance -145 ml 923.64 ml -950 ml Nutrition Consultation Dietary Evaluation: Recommendations by RD: PPN/TPN Comments: REC continue TPN per followin grams dextrose, 65 grams AA, 20 grams lipid Expected Outcomes/Goals: TPN for nutrition needs s/p abdominal surgery Interpretation of weight loss: >5% in 1 month Malnutrition Findings: Food and Nutrition Intake (Sev: <50% est energy req 5days Weight Status: Underweight LOURDES POLLOCK MD Sep 17, 2018 10:41
[2018-09-17 11:00] VITALS: BP 160/71
[2018-09-17] MEDS: ASPIRIN RECTAL 300 MG SUPP. PR SCH (11:25)
[2018-09-17] MEDS: ENOXAPARIN 40 MG/0.4 ML SYRINGE. SQ SCH (11:26)
--- NOTE | 2018-09-17 12:11 | PDOC ---
Renal-Progress Notes Subjective Notes Notes SITTING UP History of Present Illness Hx of present illness STABLE Vitals Vitals Vital Signs Date Time Temp Pulse Resp B/P (MAP) Pulse Ox O2 Delivery O2 Flow Rate FiO2 09/17/18 11:00 97.5 56 18 160/71 (100) 91 Nasal Cannula 2.0 97.5 Weight Weight [ ] I.O. Intake and Output Intake and Output 09/17/18 07:00 Intake Total 1698.64 ml Output Total 1870 ml Balance -171.36 ml Intake Oral 0 ml IV Total 1698.64 ml Output Urine Total 1870 ml Labs Labs Laboratory Tests Test 09/17/18 05:45 Sodium Level 146 mmol/L (136-145) Potassium Level 4.1 mmol/L (3.5-5.1) Chloride Level 110 mmol/L (98-107) Carbon Dioxide Level 30 mmol/L (21-32) Anion Gap 6 (6-14) Blood Urea Nitrogen 19 mg/dL (8-26) Creatinine 0.7 mg/dL (0.7-1.3) Estimated GFR (Cockcroft-Gault) 109.6 Glucose Level 205 mg/dL (70-99) Calcium Level 8.8 mg/dL (8.5-10.1) Phosphorus Level 1.4 mg/dL (2.6-4.7) Magnesium Level 2.2 mg/dL (1.8-2.4) Review of Systems Constitutional: yes: alert, other (CONFUSED) Physical Exam General Appearance: no apparent distress Skin: warm Respiratory: decreased breath sounds Heart: S1S2 Abdomen: soft, other (HYPOACTIVE) Genitourinary: bladder flat Extremities: pulses present Neurology: alert, confused, other Assessment Assessment IMP ALBERT-BETTER DEHYDRATION HYPERNATREMIA SURGICAL REPAIR OF SBO PLAN ANTIBIOTICS TPN AND HYPOTONIC SALINE WILL FOLLOW DESIRE WORRELL MD Sep 17, 2018 12:11
[2018-09-17] MEDS: TPN PER PHARMACY MC PRN (12:38)
--- NOTE | 2018-09-17 12:40 | NUR ---
Pharmacy TPN Dosing Note S: JOHN ROBBINS is a 78 year old M Currently receiving Central Continuous TPN started 09/15/18 B:Pertinent PMH: SBO Height: 5 feet, 10 inches Weight: 61.762427 kg Current diet: NPO LABS: Sodium: 146 Potassium: 4.1 Chloride: 110 Calcium: 8.8 Corrected Calcium: 9.68 Magnesium: 2.2 CO2: 30 SCr: 0.7 Glucose: 205 Albumin: 2.9 AST: 15 ALT: 13 TPN FORMULA: TPN TYPE: Central Continuous AMINO ACIDS: 65 gm DEXTROSE: 225 gm LIPIDS: 20 gm SODIUM CHLORIDE: mEq SODIUM ACETATE: 90 mEq SODIUM PHOSPHATE: mmol POTASSIUM CHLORIDE: 50 mEq POTASSIUM ACETATE: 40 mEq POTASSIUM PHOSPHATE: 20.4 mmol MAGNESIUM: 10 mEq CALCIUM: 10 mEq INSULIN: units MULTIPLE VITAMIN: 10 ml TRACE ELEMENTS: 1 ml(s) TPN PLAN: Pt with SBO s/p repair. Has ARF, now resolved. Hypernatremia, resolving, on 1/2 NS per nephrology. Phos 1.4 today, had bolus and increase in TPN yesterday. Will give small bolus with small increase in TPN and repeat phos in AM. Will change KCl to KAc for acid-base balance and remove 10 meq to accommodate increase in K from Kphos. Triglycerides in range, okay to continue lipid component. BMP/phos/mg in AM. R: Continue TPN ABOVE. Will monitor electrolytes, glucose, and tolerance to TPN. NATASHA MCNAMARA [facility], 09/17/18 0904
[2018-09-17] MEDS ORDERED: POTASSIUM PHOSPHATE DIBASIC 13.6 MMOL in IV DEXTROSE 5% 100ML 100 ML IV ONE (13:00)
--- NOTE | 2018-09-17 13:20 | PDOC ---
SURGICAL PROGRESS NOTE Subjective sleepy but arouses Vital Signs Vital Signs Date Time Temp Pulse Resp B/P (MAP) Pulse Ox O2 Delivery O2 Flow Rate FiO2 09/17/18 12:47 95 Nasal Cannula 2.0 09/17/18 12:41 56 160/71 09/17/18 11:00 97.5 18 97.5 I&O Intake and Output 09/17/18 07:00 Intake Total 1698.64 ml Output Total 1870 ml Balance -171.36 ml Intake Oral 0 ml IV Total 1698.64 ml Output Urine Total 1870 ml PATIENT HAS A DELCID: Yes (limited ambulation) General: No acute distress HEENT: Other (NG with minimal return) Abdomen: Soft Labs Laboratory Tests Test 09/16/18 04:30 09/17/18 05:45 Sodium Level 146 mmol/L (136-145) 146 mmol/L (136-145) Potassium Level 3.8 mmol/L (3.5-5.1) 4.1 mmol/L (3.5-5.1) Chloride Level 110 mmol/L (98-107) 110 mmol/L (98-107) Carbon Dioxide Level 28 mmol/L (21-32) 30 mmol/L (21-32) Anion Gap 8 (6-14) 6 (6-14) Blood Urea Nitrogen 31 mg/dL (8-26) 19 mg/dL (8-26) Creatinine 1.2 mg/dL (0.7-1.3) 0.7 mg/dL (0.7-1.3) Estimated GFR (Cockcroft-Gault) 58.9 109.6 Glucose Level 227 mg/dL (70-99) 205 mg/dL (70-99) Calcium Level 8.6 mg/dL (8.5-10.1) 8.8 mg/dL (8.5-10.1) Phosphorus Level 1.6 mg/dL (2.6-4.7) 1.4 mg/dL (2.6-4.7) Magnesium Level 2.3 mg/dL (1.8-2.4) 2.2 mg/dL (1.8-2.4) Triglycerides Level 64 mg/dL (0-150) Laboratory Tests Test 09/17/18 05:45 Sodium Level 146 mmol/L (136-145) Potassium Level 4.1 mmol/L (3.5-5.1) Chloride Level 110 mmol/L (98-107) Carbon Dioxide Level 30 mmol/L (21-32) Anion Gap 6 (6-14) Blood Urea Nitrogen 19 mg/dL (8-26) Creatinine 0.7 mg/dL (0.7-1.3) Estimated GFR (Cockcroft-Gault) 109.6 Glucose Level 205 mg/dL (70-99) Calcium Level 8.8 mg/dL (8.5-10.1) Phosphorus Level 1.4 mg/dL (2.6-4.7) Magnesium Level 2.2 mg/dL (1.8-2.4) Problem List Problems Medical Problems: (1) Generalized weakness Status: Acute Assessment/Plan s/p KAYLA SHAKEEL Richey MD Sep 17, 2018 13:20
[2018-09-17] MEDS: IV 1/2 NORMAL SALINE 1,000 ML IV SCH (14:13)
[2018-09-17 14:50] VITALS: BP 155/83
[2018-09-17 19:15] VITALS: BP 146/88
[2018-09-17] MEDS ORDERED: AMINO ACID IV SCH ×10 (22:00)
[2018-09-17] MEDS ORDERED: TOTAL PARENTERAL NUTRITION IV SCH ×10 (22:00)
[2018-09-17] MEDS ORDERED: [UNRECOGNIZED DRUG - OTHER] IV SCH ×10 (22:00)
[2018-09-17] MEDS ORDERED: DEXTROSE 70% IV SCH ×10 (22:00)
[2018-09-17 22:48] VITALS: BP 130/90
[2018-09-18] VITALS (7 sets, daily range): BP systolic 141–167; BP diastolic 86–101
--- NOTE | 2018-09-18 03:25 | NUR ---
Pt. has been having 3 beat runs intermittently of Vtach this shift. Pt. asymptomatic, VSS. Called cardiology MD to let him know. Will continue to monitor.
[2018-09-18] MEDS: MORPHINE SULFATE 4 MG/ML VIAL. IV PRN ×3 (05:29→21:59)
[2018-09-18] MEDS: METOPROLOL TARTRATE 5 MG/5 ML VIAL. IVP SCH ×3 (05:29→17:26)
[2018-09-18 05:53] LABS: CALCIUM 8.8 mg/dL (8.5-10.1); CREATININE 0.7 mg/dL (0.7-1.3); GFR 109.6; POTASSIUM 4.1 mmol/L (3.5-5.1)
[2018-09-18] MEDS: IV 1/2 NORMAL SALINE 1,000 ML IV SCH ×2 (06:20→15:40)
[2018-09-18] MEDS: PANTOPRAZOLE IV PUSH 40 MG VIAL. IVP SCH (06:20)
[2018-09-18 06:25] LABS: MAGNESIUM 1.9 mg/dL (1.8-2.4); PHOSPHORUS 2.4 mg/dL (2.6-4.7)
[2018-09-18] MEDS: BUDESONIDE 0.5 MG/2 ML NEBU. NEB SCH ×2 (07:00→20:45)
[2018-09-18] MEDS: IPRATRPIUM/ALBUTEROL 0.5/2.5MG 3 ML NEBU. NEB SCH ×4 (07:00→20:44)
--- NOTE | 2018-09-18 07:52 | PDOC ---
PULMONARY PROGRESS NOTES Subjective sob better, has cough, no pain, is tired, has ng Vitals Vital Signs Date Time Temp Pulse Resp B/P (MAP) Pulse Ox O2 Delivery O2 Flow Rate FiO2 09/18/18 07:03 99 Nasal Cannula 2.0 09/18/18 06:00 16 09/18/18 05:29 75 167/89 09/18/18 03:01 98.3 98.3 ROS: No Chest Pain, No Abdominal Pain, No Increase Cough General: Alert HEENT: Other (nc at perrl) Lungs: Crackles Cardiovascular: S1, S2 Abdomen: Soft, Non-tender Neuro Exam: Alert Extremities: No Edema, Other Skin: Warm Labs Laboratory Tests Test 09/17/18 05:45 09/18/18 05:00 Sodium Level 146 mmol/L (136-145) 137 mmol/L (136-145) Potassium Level 4.1 mmol/L (3.5-5.1) 4.1 mmol/L (3.5-5.1) Chloride Level 110 mmol/L (98-107) 100 mmol/L (98-107) Carbon Dioxide Level 30 mmol/L (21-32) 30 mmol/L (21-32) Anion Gap 6 (6-14) 7 (6-14) Blood Urea Nitrogen 19 mg/dL (8-26) 18 mg/dL (8-26) Creatinine 0.7 mg/dL (0.7-1.3) 0.7 mg/dL (0.7-1.3) Estimated GFR (Cockcroft-Gault) 109.6 109.6 Glucose Level 205 mg/dL (70-99) 272 mg/dL (70-99) Calcium Level 8.8 mg/dL (8.5-10.1) 8.8 mg/dL (8.5-10.1) Phosphorus Level 1.4 mg/dL (2.6-4.7) 2.4 mg/dL (2.6-4.7) Magnesium Level 2.2 mg/dL (1.8-2.4) 1.9 mg/dL (1.8-2.4) Laboratory Tests Test 09/18/18 05:00 Sodium Level 137 mmol/L (136-145) Potassium Level 4.1 mmol/L (3.5-5.1) Chloride Level 100 mmol/L (98-107) Carbon Dioxide Level 30 mmol/L (21-32) Anion Gap 7 (6-14) Blood Urea Nitrogen 18 mg/dL (8-26) Creatinine 0.7 mg/dL (0.7-1.3) Estimated GFR (Cockcroft-Gault) 109.6 Glucose Level 272 mg/dL (70-99) Calcium Level 8.8 mg/dL (8.5-10.1) Phosphorus Level 2.4 mg/dL (2.6-4.7) Magnesium Level 1.9 mg/dL (1.8-2.4) Medications Active Scripts Medications Dose Route/Sig Max Daily Dose Days Date Category Magnesium Chloride 70 Mg Tablet.dr 64 Mg PO DAILY 30 08/30/18 Rx Synthroid (Levothyroxine Sodium) 88 Mcg Tablet 88 Mcg PO DAILY06 08/30/18 Rx Prednisone 20 Mg Tablet 20 Mg PO DAILY 30 08/30/18 Rx Budesonide 0.5 Mg/2 Ml Ampul.neb 0.5 Mg NEB RTBID 30 08/30/18 Rx Diltiazem 24HR Cd (Diltiazem Hcl) 180 Mg Cap.er.24h 180 Mg PO DAILY 90 08/30/18 Rx Hydrocodone-Apap 7.5-325 (Hydrocodone Bit/Acetaminophen) 1 Tab Tablet 1 Tab PO PRN Q6HRS PRN 08/26/18 Reported Prednisolone Sodium Phosphate (Prednisolone Sod Phosphate) 15 Mg/5 Ml Solution 15 Mg PO DAILY 08/26/18 Reported Omeprazole 40 Mg Capsule.dr 40 Mg PO DAILY 08/26/18 Reported Cartia Xt (Diltiazem Hcl) 120 Mg Cap.er.24h 120 Mg PO DAILY 08/26/18 Reported Prednisone (Prednisone) 10 Mg Tablet 40 Mg PO DAILY 30 07/16/18 Rx Klor-Con 10 (Potassium Chloride) 10 Meq Tablet.er 1 Tab PO DAILY 07/16/18 Rx Lasix (Furosemide) 40 Mg Tablet 1 Tab PO DAILY 07/16/18 Rx Aspirin Ec (Aspirin) 81 Mg Tablet.dr 81 Mg PO DAILYWBKFT 30 07/16/18 Rx Duoneb 0.5-3(2.5) Mg/3 Ml (Albuterol/Ipratropium) 3 Ml Ampul.neb 3 Ml NEB RTQID 30 07/01/18 Rx Diltiazem 24HR Cd (Diltiazem Hcl) 120 Mg Cap.er.24h 120 Mg PO DAILY 30 07/01/18 Rx Wellbutrin Xl (Bupropion Hcl) 150 Mg Tab.er.24h 1 Tab PO DAILY 06/30/18 Reported Omeprazole 40 Mg Capsule.dr 1 Cap PO 10/25/14 Reported Impression . IMPRESSION: 1. Chronic respiratory failure. 2. Pulmonary fibrosis. 3. Small-bowel obstruction. S/P SURGERY SEE BELOW 4. Other comorbidities as indicated above. PREOPERATIVE DIAGNOSIS: Small bowel obstruction. POSTOPERATIVE DIAGNOSIS: Small bowel obstruction, secondary to adhesive band. PROCEDURE: Diagnostic laparoscopy, followed by laparotomy with release of small-bowel obstruction and decompression of the small bowel. Plan . NG TUBE per surgery TPN for nutrition BD, nebulizer treatments incentive spirometry, the importance of use discussed adonay saunders Lovenox, Protonix for prophylaxis discussed MYA Ham pt, MD Sep 18, 2018 07:52
[2018-09-18] MEDS: ASPIRIN RECTAL 300 MG SUPP. PR SCH (09:00)
[2018-09-18] MEDS: TPN PER PHARMACY MC PRN (09:54)
--- NOTE | 2018-09-18 09:58 | NUR ---
Pharmacy TPN Dosing Note S: JOHN ROBBINS is a 78 year old M Currently receiving Central Continuous TPN started 09/15/18 B:Pertinent PMH: SBO Height: 5 feet, 10 inches Weight: 60.630350 kg Current diet: NPO LABS: Sodium: 137 Potassium: 4.1 Chloride: 100 Calcium: 8.8 Corrected Calcium: 9.68 Magnesium: 1.9 CO2: 30 SCr: 0.7 Glucose: 272 Albumin: 2.9 AST: 15 ALT: 13 TPN FORMULA: TPN TYPE: Central Continuous AMINO ACIDS: 65 gm DEXTROSE: 225 gm LIPIDS: 20 gm SODIUM ACETATE: 90 mEq POTASSIUM CHLORIDE: 50 mEq POTASSIUM ACETATE: 40 mEq POTASSIUM PHOSPHATE: 20.4 mmol MAGNESIUM: 10 mEq CALCIUM: 10 mEq MULTIPLE VITAMIN: 10 ml TRACE ELEMENTS: 1 ml(s) TPN PLAN: All lytes WNL except PO4, which is rising and close to normal. Continue same TPN. R: Continue TPN Will monitor electrolytes, glucose, and tolerance to TPN. Clemente Ann [facility], 09/18/18 [id number]
--- NOTE | 2018-09-18 10:18 | PDOC ---
SUBJECTIVE Subjective Pt states that he is doing okay. He is wanting to get the NG out; states that it has not been hooked up for 24 hours. Will discuss with nursing. Denies nausea, vomiting. Has still not passed any gas. Requesting to eat; discussed with pt that surgery would need to make that decision. States that his breathing has improved OBJECTIVE Vital Signs Vital Signs Date Time Temp Pulse Resp B/P (MAP) Pulse Ox O2 Delivery O2 Flow Rate FiO2 09/18/18 07:03 99 Nasal Cannula 2.0 09/18/18 07:00 98.4 67 18 151/91 (111) 100 Nasal Cannula 2.0 98.4 09/18/18 06:00 16 Nasal Cannula 2.0 09/18/18 05:29 20 Nasal Cannula 2.0 09/18/18 05:29 75 167/89 09/18/18 03:01 98.3 66 20 157/101 (119) 96 Nasal Cannula 2.0 98.3 09/17/18 23:27 79 130/90 09/17/18 22:48 98.4 79 20 130/90 (103) 98 Nasal Cannula 2.0 98.4 09/17/18 21:38 20 Nasal Cannula 2.0 09/17/18 20:00 Nasal Cannula 2.0 09/17/18 19:38 95 Nasal Cannula 2.0 09/17/18 19:15 98.1 46 22 146/88 (107) 99 Nasal Cannula 2.0 98.1 09/17/18 17:53 16 Nasal Cannula 2.0 09/17/18 17:45 78 155/83 09/17/18 15:43 95 Nasal Cannula 2.0 09/17/18 14:50 97.6 78 18 155/83 (107) 96 Nasal Cannula 2.0 97.6 09/17/18 12:47 95 Nasal Cannula 2.0 09/17/18 12:41 56 160/71 09/17/18 11:00 97.5 56 18 160/71 (100) 91 Nasal Cannula 2.0 97.5 I & O Intake and Output 09/18/18 07:00 Output Total 1720 ml Balance -1720 ml Output Urine Total 1720 ml # Voids 2 PHYSICAL EXAM Physical Exam GEN: NAD, AOx3, weak voice, NG in place HEENT: dry mucous membranes, EOMI, no scleral icterus/injection Cardiac: RRR, no M/R/G Lungs: fine crackles, regular breathing rate and effort Abd: bandage clean and dry, absent breath sounds, NT to light pressure Ext: no erythema/edema LE bilaterally Nuero: CN2-12 GI ASSESSMENT/PLAN Assessment/Plan Pt is a 78yo CM admission for SBO now s/p lysis of adhesion and SBO take down POD#4 1)SBO- Surgery following. Pt currently on Metronidazole. NG in place but has been clamped. Pt desires to get out; will discuss with nursing. Currently receiving TPN 2)Pulmonary fibrosis/COPD- Pulmonary following. Has IV steroids and breathing treatments 3)SVT. 4)Hypertension- moderately controlled with Metoprolol 5mg IV q6H 5)Osteoarthritis. 6)Gastroesophageal reflux disease, status post dilatation of stricture. 7)Hypothyroidism. 8)BPH. 9)Vtytz-ya-udvohop diastolic congestive heart failure- resolved 10)Severe protein malnutrition. 11)History of prostate cancer. 12)History of hepatitis C. 13)Major depression. 14)ALBERT- resolved with IVF hydration. COMMENT Lab Laboratory Tests Test 09/18/18 05:00 Sodium Level 137 mmol/L (136-145) Potassium Level 4.1 mmol/L (3.5-5.1) Chloride Level 100 mmol/L (98-107) Carbon Dioxide Level 30 mmol/L (21-32) Anion Gap 7 (6-14) Blood Urea Nitrogen 18 mg/dL (8-26) Creatinine 0.7 mg/dL (0.7-1.3) Estimated GFR (Cockcroft-Gault) 109.6 Glucose Level 272 mg/dL (70-99) Calcium Level 8.8 mg/dL (8.5-10.1) Phosphorus Level 2.4 mg/dL (2.6-4.7) Magnesium Level 1.9 mg/dL (1.8-2.4) Nutrition Consultation Dietary Evaluation: Recommendations by RD: PPN/TPN Comments: REC continue TPN per followin grams dextrose, 65 grams AA, 20 grams lipid Expected Outcomes/Goals: TPN for nutrition needs s/p abdominal surgery Interpretation of weight loss: >5% in 1 month Malnutrition Findings: Food and Nutrition Intake (Sev: <50% est energy req 5days Weight Status: Underweight POLLY ARCHIBALD MD Sep 18, 2018 10:18
[2018-09-18] MEDS: ENOXAPARIN 40 MG/0.4 ML SYRINGE. SQ SCH (10:30)
[2018-09-18] MEDS: methylPREDNISolone SOD SUCC PF 125 MG/2 ML VIAL. IV SCH (10:30)
--- NOTE | 2018-09-18 10:57 | PDOC ---
SURGICAL PROGRESS NOTE Subjective no c/o of n/v with NG off suction wants to get out of bed doesn't like wearing Rook boots at night Vital Signs Vital Signs Date Time Temp Pulse Resp B/P (MAP) Pulse Ox O2 Delivery O2 Flow Rate FiO2 09/18/18 07:03 99 Nasal Cannula 2.0 09/18/18 07:00 98.4 67 18 151/91 (111) 98.4 I&O Intake and Output 09/18/18 06:59 Output Total 1720 ml Balance -1720 ml Output Urine Total 1720 ml # Voids 2 General: Alert, Oriented X3, No acute distress Abdomen: Soft, Other (mildly distended, dressing intact, NG with minimal residual when put back to suction) Labs Laboratory Tests Test 09/17/18 05:45 09/18/18 05:00 Sodium Level 146 mmol/L (136-145) 137 mmol/L (136-145) Potassium Level 4.1 mmol/L (3.5-5.1) 4.1 mmol/L (3.5-5.1) Chloride Level 110 mmol/L (98-107) 100 mmol/L (98-107) Carbon Dioxide Level 30 mmol/L (21-32) 30 mmol/L (21-32) Anion Gap 6 (6-14) 7 (6-14) Blood Urea Nitrogen 19 mg/dL (8-26) 18 mg/dL (8-26) Creatinine 0.7 mg/dL (0.7-1.3) 0.7 mg/dL (0.7-1.3) Estimated GFR (Cockcroft-Gault) 109.6 109.6 Glucose Level 205 mg/dL (70-99) 272 mg/dL (70-99) Calcium Level 8.8 mg/dL (8.5-10.1) 8.8 mg/dL (8.5-10.1) Phosphorus Level 1.4 mg/dL (2.6-4.7) 2.4 mg/dL (2.6-4.7) Magnesium Level 2.2 mg/dL (1.8-2.4) 1.9 mg/dL (1.8-2.4) Laboratory Tests Test 09/18/18 05:00 Sodium Level 137 mmol/L (136-145) Potassium Level 4.1 mmol/L (3.5-5.1) Chloride Level 100 mmol/L (98-107) Carbon Dioxide Level 30 mmol/L (21-32) Anion Gap 7 (6-14) Blood Urea Nitrogen 18 mg/dL (8-26) Creatinine 0.7 mg/dL (0.7-1.3) Estimated GFR (Cockcroft-Gault) 109.6 Glucose Level 272 mg/dL (70-99) Calcium Level 8.8 mg/dL (8.5-10.1) Phosphorus Level 2.4 mg/dL (2.6-4.7) Magnesium Level 1.9 mg/dL (1.8-2.4) Problem List Problems Medical Problems: (1) Generalized weakness Status: Acute Assessment/Plan POD 4 KAYLA butt/alejandra RUIZ offer clears out of bed SHAKEEL SOMMER MD Sep 18, 2018 10:57
--- NOTE | 2018-09-18 11:03 | RAD ---
Examination: Single frontal view of the abdomen History of postop surgery COMPARISON: 09/14/2018 FINDINGS: Feeding tube tip identified in the stomach. Contrast is identified in the colon. Surgical clips project in the abdomen. Paucity of gas limits evaluation of the small bowel. IMPRESSION: 1. Nonspecific bowel gas pattern 2. Contrast is identified in the ascending colon. Electronically signed by: Joo Navarro MD (09/18/2018 11:01 AM) [facility]
--- NOTE | 2018-09-18 11:08 | PDOC ---
Renal-Progress Notes Subjective Notes Notes DOING WELL History of Present Illness Hx of present illness NGT OUT Vitals Vitals Vital Signs Date Time Temp Pulse Resp B/P (MAP) Pulse Ox O2 Delivery O2 Flow Rate FiO2 09/18/18 07:03 99 Nasal Cannula 2.0 09/18/18 07:00 98.4 67 18 151/91 (111) 98.4 Weight Weight [ ] I.O. Intake and Output Intake and Output 09/18/18 07:00 Output Total 1720 ml Balance -1720 ml Output Urine Total 1720 ml # Voids 2 Labs Labs Laboratory Tests Test 09/18/18 05:00 Sodium Level 137 mmol/L (136-145) Potassium Level 4.1 mmol/L (3.5-5.1) Chloride Level 100 mmol/L (98-107) Carbon Dioxide Level 30 mmol/L (21-32) Anion Gap 7 (6-14) Blood Urea Nitrogen 18 mg/dL (8-26) Creatinine 0.7 mg/dL (0.7-1.3) Estimated GFR (Cockcroft-Gault) 109.6 Glucose Level 272 mg/dL (70-99) Calcium Level 8.8 mg/dL (8.5-10.1) Phosphorus Level 2.4 mg/dL (2.6-4.7) Magnesium Level 1.9 mg/dL (1.8-2.4) Review of Systems Constitutional: yes: alert, other (CONFUSED) Physical Exam General Appearance: no apparent distress Skin: warm Respiratory: decreased breath sounds Heart: S1S2 Abdomen: soft, other (HYPOACTIVE) Genitourinary: bladder flat Extremities: pulses present Neurology: alert, confused, other Assessment Assessment IMP ALBERT-RESOLVED DEHYDRATION-RESOLVED HYPERNATREMIA-RESOLVED SURGICAL REPAIR OF SBO PLAN DOING WELL WILL SING OFF DESIRE WORRELL MD Sep 18, 2018 11:08
[2018-09-18] MEDS: ASPIRIN ENTERIC COATED 325 MG TABLET.DR. PO SCH (14:17)
[2018-09-18] MEDS ORDERED: AMINO ACID IV SCH ×10 (22:00)
[2018-09-18] MEDS ORDERED: [UNRECOGNIZED DRUG - OTHER] IV SCH ×10 (22:00)
[2018-09-18] MEDS ORDERED: TOTAL PARENTERAL NUTRITION IV SCH ×10 (22:00)
[2018-09-18] MEDS ORDERED: DEXTROSE 70% IV SCH ×10 (22:00)
[2018-09-19] MEDS: METOPROLOL TARTRATE 5 MG/5 ML VIAL. IVP SCH ×2 (00:20→06:41)
[2018-09-19 03:00] VITALS: BP 142/83
[2018-09-19] MEDS: IV 1/2 NORMAL SALINE 1,000 ML IV SCH (05:00)
[2018-09-19] MEDS: PANTOPRAZOLE IV PUSH 40 MG VIAL. IVP SCH (06:39)
[2018-09-19 06:52] LABS: BASO % 0 % (0-3); EOS % 0 % (0-3); HEMATOCRIT 30.9 % (39.0-53.0); HEMOGLOBIN 10.4 g/dL (13.0-17.5); LYMPH # 0.5 x10^3/uL (1.0-4.8); LYMPH % 6 % (24-48); MEAN CORPUSCULAR HEMOGLOBIN 32 pg (25-35); MEAN CORPUSCULAR HGB CONC 34 g/dL (31-37); MEAN CORPUSCULAR VOLUME 95 fL (79-100); MONO # 0.8 x10^3/uL (0.0-1.1); MONO % 10 % (0-9); NEUT # 6.8 x10^3uL (1.8-7.7); NEUT % 84 % (31-73); PLATELET COUNT 162 x10^3/uL (140-400); RED BLOOD COUNT 3.25 x10^6/uL (4.30-5.70); WHITE BLOOD COUNT 8.1 x10^3/uL (4.0-11.0)
[2018-09-19 07:00] VITALS: BP 140/63
[2018-09-19] MEDS: BUDESONIDE 0.5 MG/2 ML NEBU. NEB SCH ×2 (07:00→19:45)
[2018-09-19] MEDS: IPRATRPIUM/ALBUTEROL 0.5/2.5MG 3 ML NEBU. NEB SCH ×4 (07:00→19:45)
--- NOTE | 2018-09-19 07:30 | PDOC ---
PULMONARY PROGRESS NOTES Subjective feels better, sob better, has occ cough, no pain, is tired, ng out Vitals Vital Signs Date Time Temp Pulse Resp B/P (MAP) Pulse Ox O2 Delivery O2 Flow Rate FiO2 09/19/18 07:03 96 Room Air 09/19/18 06:41 68 142/81 09/19/18 03:00 97.8 18 2.0 97.8 ROS: No Chest Pain, No Abdominal Pain, No Increase Cough General: Alert HEENT: Other (nc at perrl) Lungs: Crackles Cardiovascular: S1, S2 Abdomen: Soft, Non-tender Neuro Exam: Alert, Oriented Extremities: No Edema, Other Skin: Warm Labs Laboratory Tests Test 09/18/18 05:00 09/19/18 06:35 Sodium Level 137 mmol/L (136-145) Potassium Level 4.1 mmol/L (3.5-5.1) Chloride Level 100 mmol/L (98-107) Carbon Dioxide Level 30 mmol/L (21-32) Anion Gap 7 (6-14) Blood Urea Nitrogen 18 mg/dL (8-26) Creatinine 0.7 mg/dL (0.7-1.3) Estimated GFR (Cockcroft-Gault) 109.6 Glucose Level 272 mg/dL (70-99) Calcium Level 8.8 mg/dL (8.5-10.1) Phosphorus Level 2.4 mg/dL (2.6-4.7) Magnesium Level 1.9 mg/dL (1.8-2.4) White Blood Count 8.1 x10^3/uL (4.0-11.0) Red Blood Count 3.25 x10^6/uL (4.30-5.70) Hemoglobin 10.4 g/dL (13.0-17.5) Hematocrit 30.9 % (39.0-53.0) Mean Corpuscular Volume 95 fL (79-100) Mean Corpuscular Hemoglobin 32 pg (25-35) Mean Corpuscular Hemoglobin Concent 34 g/dL (31-37) Red Cell Distribution Width 14.0 % (11.5-14.5) Platelet Count 162 x10^3/uL (140-400) Neutrophils (%) (Auto) 84 % (31-73) Lymphocytes (%) (Auto) 6 % (24-48) Monocytes (%) (Auto) 10 % (0-9) Eosinophils (%) (Auto) 0 % (0-3) Basophils (%) (Auto) 0 % (0-3) Neutrophils # (Auto) 6.8 x10^3uL (1.8-7.7) Lymphocytes # (Auto) 0.5 x10^3/uL (1.0-4.8) Monocytes # (Auto) 0.8 x10^3/uL (0.0-1.1) Eosinophils # (Auto) 0.0 x10^3/uL (0.0-0.7) Basophils # (Auto) 0.0 x10^3/uL (0.0-0.2) Laboratory Tests Test 09/19/18 06:35 White Blood Count 8.1 x10^3/uL (4.0-11.0) Red Blood Count 3.25 x10^6/uL (4.30-5.70) Hemoglobin 10.4 g/dL (13.0-17.5) Hematocrit 30.9 % (39.0-53.0) Mean Corpuscular Volume 95 fL (79-100) Mean Corpuscular Hemoglobin 32 pg (25-35) Mean Corpuscular Hemoglobin Concent 34 g/dL (31-37) Red Cell Distribution Width 14.0 % (11.5-14.5) Platelet Count 162 x10^3/uL (140-400) Neutrophils (%) (Auto) 84 % (31-73) Lymphocytes (%) (Auto) 6 % (24-48) Monocytes (%) (Auto) 10 % (0-9) Eosinophils (%) (Auto) 0 % (0-3) Basophils (%) (Auto) 0 % (0-3) Neutrophils # (Auto) 6.8 x10^3uL (1.8-7.7) Lymphocytes # (Auto) 0.5 x10^3/uL (1.0-4.8) Monocytes # (Auto) 0.8 x10^3/uL (0.0-1.1) Eosinophils # (Auto) 0.0 x10^3/uL (0.0-0.7) Basophils # (Auto) 0.0 x10^3/uL (0.0-0.2) Medications Active Scripts Medications Dose Route/Sig Max Daily Dose Days Date Category Magnesium Chloride 70 Mg Tablet. 64 Mg PO DAILY 30 08/30/18 Rx Synthroid (Levothyroxine Sodium) 88 Mcg Tablet 88 Mcg PO DAILY06 30 08/30/18 Rx Prednisone 20 Mg Tablet 20 Mg PO DAILY 30 08/30/18 Rx Budesonide 0.5 Mg/2 Ml Ampul.neb 0.5 Mg NEB RTBID 30 08/30/18 Rx Diltiazem 24HR Cd (Diltiazem Hcl) 180 Mg Cap.er.24h 180 Mg PO DAILY 90 08/30/18 Rx Hydrocodone-Apap 7.5-325 (Hydrocodone Bit/Acetaminophen) 1 Tab Tablet 1 Tab PO PRN Q6HRS PRN 08/26/18 Reported Prednisolone Sodium Phosphate (Prednisolone Sod Phosphate) 15 Mg/5 Ml Solution 15 Mg PO DAILY 08/26/18 Reported Omeprazole 40 Mg Capsule. 40 Mg PO DAILY 08/26/18 Reported Cartia Xt (Diltiazem Hcl) 120 Mg Cap.er.24h 120 Mg PO DAILY 08/26/18 Reported Prednisone (Prednisone) 10 Mg Tablet 40 Mg PO DAILY 30 07/16/18 Rx Klor-Con 10 (Potassium Chloride) 10 Meq Tablet.er 1 Tab PO DAILY 07/16/18 Rx Lasix (Furosemide) 40 Mg Tablet 1 Tab PO DAILY 07/16/18 Rx Aspirin Ec (Aspirin) 81 Mg Tablet. 81 Mg PO DAILYWBKFT 30 07/16/18 Rx Duoneb 0.5-3(2.5) Mg/3 Ml (Albuterol/Ipratropium) 3 Ml Ampul.neb 3 Ml NEB RTQID 30 07/01/18 Rx Diltiazem 24HR Cd (Diltiazem Hcl) 120 Mg Cap.er.24h 120 Mg PO DAILY 30 07/01/18 Rx Wellbutrin Xl (Bupropion Hcl) 150 Mg Tab.er.24h 1 Tab PO DAILY 06/30/18 Reported Omeprazole 40 Mg Capsule. 1 Cap PO 10/25/14 Reported Impression . IMPRESSION: 1. Chronic respiratory failure. 2. Pulmonary fibrosis. 3. Small-bowel obstruction. S/P SURGERY SEE BELOW 4. Other comorbidities as indicated above. PREOPERATIVE DIAGNOSIS: Small bowel obstruction. POSTOPERATIVE DIAGNOSIS: Small bowel obstruction, secondary to adhesive band. PROCEDURE: Diagnostic laparoscopy, followed by laparotomy with release of small-bowel obstruction and decompression of the small bowel. Plan . NG TUBE out TPN for nutrition BD, nebulizer treatments incentive spirometry, instructed how to use, advised to use elevate hob Lovenox, Protonix for prophylaxis discussed w MYA Mcelroy MD Sep 19, 2018 07:30
[2018-09-19] MEDS: methylPREDNISolone SOD SUCC PF 125 MG/2 ML VIAL. IV SCH (09:41)
[2018-09-19] MEDS: ASPIRIN ENTERIC COATED 325 MG TABLET.DR. PO SCH (09:41)
[2018-09-19] MEDS: ENOXAPARIN 40 MG/0.4 ML SYRINGE. SQ SCH (09:41)
[2018-09-19] MEDS: HYDROcodone/APAP 10/325 1 TAB TABLET PO PRN ×3 (10:29→22:47)
--- NOTE | 2018-09-19 10:34 | PDOC ---
SURGICAL PROGRESS NOTE Subjective looks better, states he feels a little better tolerating clears Vital Signs Vital Signs Date Time Temp Pulse Resp B/P (MAP) Pulse Ox O2 Delivery O2 Flow Rate FiO2 09/19/18 10:29 20 Nasal Cannula 2.0 09/19/18 07:03 96 09/19/18 07:00 98.5 86 140/63 (88) 98.5 I&O Intake and Output 09/19/18 06:59 Intake Total 450 ml Output Total 1220 ml Balance -770 ml Intake Oral 450 ml Output Urine Total 1220 ml PATIENT HAS A DELCID: No General: Alert, No acute distress Lungs: Normal air movement Abdomen: Soft Labs Laboratory Tests Test 09/18/18 05:00 09/19/18 06:35 Sodium Level 137 mmol/L (136-145) Potassium Level 4.1 mmol/L (3.5-5.1) Chloride Level 100 mmol/L (98-107) Carbon Dioxide Level 30 mmol/L (21-32) Anion Gap 7 (6-14) Blood Urea Nitrogen 18 mg/dL (8-26) Creatinine 0.7 mg/dL (0.7-1.3) Estimated GFR (Cockcroft-Gault) 109.6 Glucose Level 272 mg/dL (70-99) Calcium Level 8.8 mg/dL (8.5-10.1) Phosphorus Level 2.4 mg/dL (2.6-4.7) 3.1 mg/dL (2.6-4.7) Magnesium Level 1.9 mg/dL (1.8-2.4) White Blood Count 8.1 x10^3/uL (4.0-11.0) Red Blood Count 3.25 x10^6/uL (4.30-5.70) Hemoglobin 10.4 g/dL (13.0-17.5) Hematocrit 30.9 % (39.0-53.0) Mean Corpuscular Volume 95 fL (79-100) Mean Corpuscular Hemoglobin 32 pg (25-35) Mean Corpuscular Hemoglobin Concent 34 g/dL (31-37) Red Cell Distribution Width 14.0 % (11.5-14.5) Platelet Count 162 x10^3/uL (140-400) Neutrophils (%) (Auto) 84 % (31-73) Lymphocytes (%) (Auto) 6 % (24-48) Monocytes (%) (Auto) 10 % (0-9) Eosinophils (%) (Auto) 0 % (0-3) Basophils (%) (Auto) 0 % (0-3) Neutrophils # (Auto) 6.8 x10^3uL (1.8-7.7) Lymphocytes # (Auto) 0.5 x10^3/uL (1.0-4.8) Monocytes # (Auto) 0.8 x10^3/uL (0.0-1.1) Eosinophils # (Auto) 0.0 x10^3/uL (0.0-0.7) Basophils # (Auto) 0.0 x10^3/uL (0.0-0.2) Laboratory Tests Test 09/19/18 06:35 White Blood Count 8.1 x10^3/uL (4.0-11.0) Red Blood Count 3.25 x10^6/uL (4.30-5.70) Hemoglobin 10.4 g/dL (13.0-17.5) Hematocrit 30.9 % (39.0-53.0) Mean Corpuscular Volume 95 fL (79-100) Mean Corpuscular Hemoglobin 32 pg (25-35) Mean Corpuscular Hemoglobin Concent 34 g/dL (31-37) Red Cell Distribution Width 14.0 % (11.5-14.5) Platelet Count 162 x10^3/uL (140-400) Neutrophils (%) (Auto) 84 % (31-73) Lymphocytes (%) (Auto) 6 % (24-48) Monocytes (%) (Auto) 10 % (0-9) Eosinophils (%) (Auto) 0 % (0-3) Basophils (%) (Auto) 0 % (0-3) Neutrophils # (Auto) 6.8 x10^3uL (1.8-7.7) Lymphocytes # (Auto) 0.5 x10^3/uL (1.0-4.8) Monocytes # (Auto) 0.8 x10^3/uL (0.0-1.1) Eosinophils # (Auto) 0.0 x10^3/uL (0.0-0.7) Basophils # (Auto) 0.0 x10^3/uL (0.0-0.2) Phosphorus Level 3.1 mg/dL (2.6-4.7) I have reviewed the following KUB from yesterday seen Problem List Problems Medical Problems: (1) Generalized weakness Status: Acute Assessment/Plan PO ex shonda, KAYLA advance to fulls SHAKEEL SOMMER MD Sep 19, 2018 10:34
[2018-09-19 11:00] VITALS: BP 144/92
--- NOTE | 2018-09-19 11:40 | PDOC ---
SUBJECTIVE Subjective Pt states that he is feeling a little better. Had a small bowel movement yesterday, otherwise not really passing any gas. Had some stomach pain earlier that was releaved with Lortab. Denies nausea, vomiting. Feels that his breathing is doing okay. OBJECTIVE Vital Signs Vital Signs Date Time Temp Pulse Resp B/P (MAP) Pulse Ox O2 Delivery O2 Flow Rate FiO2 09/19/18 10:29 20 Nasal Cannula 2.0 09/19/18 08:00 Nasal Cannula 2.0 09/19/18 07:03 96 Room Air 09/19/18 07:00 98.5 86 16 140/63 (88) 97 Nasal Cannula 2.0 98.5 09/19/18 06:41 68 142/81 09/19/18 03:00 97.8 65 18 142/83 (102) 97 Nasal Cannula 2.0 97.8 09/19/18 00:20 93 138/77 09/18/18 23:00 97.6 63 18 143/92 (109) 100 Nasal Cannula 2.0 97.6 09/18/18 20:50 99 Nasal Cannula 2.0 09/18/18 20:46 99 Nasal Cannula 2.0 09/18/18 20:00 Nasal Cannula 2.0 09/18/18 19:00 97.6 59 18 141/86 (104) 96 Nasal Cannula 2.0 97.6 09/18/18 17:26 71 160/90 09/18/18 15:31 Nasal Cannula 2.0 09/18/18 15:00 84.3 71 18 160/90 (113) 100 Nasal Cannula 2.0 84.3 09/18/18 14:46 20 Nasal Cannula 2.0 09/18/18 14:16 20 Nasal Cannula 2.0 09/18/18 12:25 67 151/91 09/18/18 11:43 99 Nasal Cannula 2.0 I & O Intake and Output 09/19/18 06:59 Intake Total 450 ml Output Total 1220 ml Balance -770 ml Intake Oral 450 ml Output Urine Total 1220 ml PHYSICAL EXAM Physical Exam GEN: NAD, AOx3, weak voice HEENT: dry mucous membranes, EOMI, no scleral icterus/injection Cardiac: irregular heart rate, no M/R/G Lungs: fine crackles, regular breathing rate and effort Abd: bandage clean and dry, decreased bowel sounds Ext: no erythema/edema LE bilaterally Nuero: CN2-12 GI ASSESSMENT/PLAN Assessment/Plan Pt is a 78yo CM admission for SBO now s/p lysis of adhesion and SBO take down POD#5 1)SBO- Surgery following. Pt currently on Metronidazole. NG out, small BM yesterday. Increased to full liquid. Will D/C TPN 2)Pulmonary fibrosis/COPD- Pulmonary following. Has IV steroids and breathing treatments 3)SVT/Afib- will resume pt's Diltiazem 4)Hypertension- moderately controlled with IV Metoprolol. Will D/C Metoprolol. Pt resumed on Diltiazem, CTM 5)Osteoarthritis. 6)Gastroesophageal reflux disease, status post dilatation of stricture. 7)Hypothyroidism- pt's levothyroxine resumed 8)BPH. 9)Oehvo-qw-gspqkax diastolic congestive heart failure- resolved 10)Severe protein malnutrition. 11)History of prostate cancer. 12)History of hepatitis C. 13)Major depression- holding pts SSRI 14)ALBERT- resolved with IVF hydration. COMMENT Lab Laboratory Tests Test 09/19/18 06:35 White Blood Count 8.1 x10^3/uL (4.0-11.0) Red Blood Count 3.25 x10^6/uL (4.30-5.70) Hemoglobin 10.4 g/dL (13.0-17.5) Hematocrit 30.9 % (39.0-53.0) Mean Corpuscular Volume 95 fL (79-100) Mean Corpuscular Hemoglobin 32 pg (25-35) Mean Corpuscular Hemoglobin Concent 34 g/dL (31-37) Red Cell Distribution Width 14.0 % (11.5-14.5) Platelet Count 162 x10^3/uL (140-400) Neutrophils (%) (Auto) 84 % (31-73) Lymphocytes (%) (Auto) 6 % (24-48) Monocytes (%) (Auto) 10 % (0-9) Eosinophils (%) (Auto) 0 % (0-3) Basophils (%) (Auto) 0 % (0-3) Neutrophils # (Auto) 6.8 x10^3uL (1.8-7.7) Lymphocytes # (Auto) 0.5 x10^3/uL (1.0-4.8) Monocytes # (Auto) 0.8 x10^3/uL (0.0-1.1) Eosinophils # (Auto) 0.0 x10^3/uL (0.0-0.7) Basophils # (Auto) 0.0 x10^3/uL (0.0-0.2) Phosphorus Level 3.1 mg/dL (2.6-4.7) Nutrition Consultation Dietary Evaluation: Recommendations by RD: PPN/TPN Comments: REC continue TPN per followin grams dextrose, 65 grams AA, 20 grams lipid Expected Outcomes/Goals: TPN for nutrition needs s/p abdominal surgery Interpretation of weight loss: >5% in 1 month Malnutrition Findings: Food and Nutrition Intake (Sev: <50% est energy req 5days Weight Status: Underweight POLLY ARCHIBALD MD Sep 19, 2018 11:40
[2018-09-19 15:00] VITALS: BP 143/74
[2018-09-19] MEDS: LEVOTHYROXINE 88 MCG TABLET PO SCH (16:55)
[2018-09-19 19:00] VITALS: BP 138/99
[2018-09-19 23:00] VITALS: BP 165/97
[2018-09-20 03:00] VITALS: BP 125/81
[2018-09-20] MEDS: LEVOTHYROXINE 88 MCG TABLET PO SCH (06:30)
[2018-09-20] MEDS: PANTOPRAZOLE IV PUSH 40 MG VIAL. IVP SCH (06:30)
[2018-09-20] MEDS: HYDROcodone/APAP 10/325 1 TAB TABLET PO PRN ×3 (06:59→23:48)
[2018-09-20 07:00] VITALS: BP 119/80
[2018-09-20 07:06] LABS: ALBUMIN 2.2 g/dL (3.4-5.0); ALBUMIN/GLOBULIN RATIO 0.6 (1.0-1.7); CALCIUM 8.8 mg/dL (8.5-10.1); CREATININE 0.8 mg/dL (0.7-1.3); POTASSIUM 4.3 mmol/L (3.5-5.1); TOTAL BILIRUBIN 0.5 mg/dL (0.2-1.0); TOTAL PROTEIN 5.6 g/dL (6.4-8.2)
[2018-09-20] MEDS: BUDESONIDE 0.5 MG/2 ML NEBU. NEB SCH ×2 (07:11→19:15)
[2018-09-20] MEDS: IPRATRPIUM/ALBUTEROL 0.5/2.5MG 3 ML NEBU. NEB SCH ×4 (07:11→19:15)
[2018-09-20] MEDS: ASPIRIN ENTERIC COATED 325 MG TABLET.DR. PO SCH (09:01)
[2018-09-20] MEDS: methylPREDNISolone SOD SUCC PF 125 MG/2 ML VIAL. IV SCH (09:01)
[2018-09-20] MEDS: ENOXAPARIN 40 MG/0.4 ML SYRINGE. SQ SCH (09:02)
--- NOTE | 2018-09-20 09:02 | PDOC ---
REMBERTO WINSTON [employer] 09/20/18 0902: SURGICAL PROGRESS NOTE Subjective resting incisional pain no n/v + flatus, no stool Vital Signs Vital Signs Date Time Temp Pulse Resp B/P (MAP) Pulse Ox O2 Delivery O2 Flow Rate FiO2 09/20/18 08:09 Nasal Cannula 2.0 09/20/18 07:11 97 09/20/18 07:00 97.6 55 18 119/80 (93) 97.6 I&O Intake and Output 09/20/18 06:59 Intake Total 900 ml Output Total 2150 ml Balance -1250 ml Intake Oral 900 ml Output Urine Total 2150 ml General: Alert, Cooperative, No acute distress Abdomen: Soft, Other (ND, incision c/d/i, no erythema ) Labs Laboratory Tests Test 09/19/18 06:35 09/20/18 06:40 White Blood Count 8.1 x10^3/uL (4.0-11.0) Red Blood Count 3.25 x10^6/uL (4.30-5.70) Hemoglobin 10.4 g/dL (13.0-17.5) Hematocrit 30.9 % (39.0-53.0) Mean Corpuscular Volume 95 fL (79-100) Mean Corpuscular Hemoglobin 32 pg (25-35) Mean Corpuscular Hemoglobin Concent 34 g/dL (31-37) Red Cell Distribution Width 14.0 % (11.5-14.5) Platelet Count 162 x10^3/uL (140-400) Neutrophils (%) (Auto) 84 % (31-73) Lymphocytes (%) (Auto) 6 % (24-48) Monocytes (%) (Auto) 10 % (0-9) Eosinophils (%) (Auto) 0 % (0-3) Basophils (%) (Auto) 0 % (0-3) Neutrophils # (Auto) 6.8 x10^3uL (1.8-7.7) Lymphocytes # (Auto) 0.5 x10^3/uL (1.0-4.8) Monocytes # (Auto) 0.8 x10^3/uL (0.0-1.1) Eosinophils # (Auto) 0.0 x10^3/uL (0.0-0.7) Basophils # (Auto) 0.0 x10^3/uL (0.0-0.2) Phosphorus Level 3.1 mg/dL (2.6-4.7) Sodium Level 138 mmol/L (136-145) Potassium Level 4.3 mmol/L (3.5-5.1) Chloride Level 101 mmol/L (98-107) Carbon Dioxide Level 31 mmol/L (21-32) Anion Gap 6 (6-14) Blood Urea Nitrogen 26 mg/dL (8-26) Creatinine 0.8 mg/dL (0.7-1.3) Estimated GFR (Cockcroft-Gault) 94.0 BUN/Creatinine Ratio 33 (6-20) Glucose Level 226 mg/dL (70-99) Calcium Level 8.8 mg/dL (8.5-10.1) Total Bilirubin 0.5 mg/dL (0.2-1.0) Aspartate Amino Transf (AST/SGOT) 27 U/L (15-37) Alanine Aminotransferase (ALT/SGPT) 38 U/L (16-63) Alkaline Phosphatase 66 U/L (46-116) Total Protein 5.6 g/dL (6.4-8.2) Albumin 2.2 g/dL (3.4-5.0) Albumin/Globulin Ratio 0.6 (1.0-1.7) Laboratory Tests Test 09/20/18 06:40 Sodium Level 138 mmol/L (136-145) Potassium Level 4.3 mmol/L (3.5-5.1) Chloride Level 101 mmol/L (98-107) Carbon Dioxide Level 31 mmol/L (21-32) Anion Gap 6 (6-14) Blood Urea Nitrogen 26 mg/dL (8-26) Creatinine 0.8 mg/dL (0.7-1.3) Estimated GFR (Cockcroft-Gault) 94.0 BUN/Creatinine Ratio 33 (6-20) Glucose Level 226 mg/dL (70-99) Calcium Level 8.8 mg/dL (8.5-10.1) Total Bilirubin 0.5 mg/dL (0.2-1.0) Aspartate Amino Transf (AST/SGOT) 27 U/L (15-37) Alanine Aminotransferase (ALT/SGPT) 38 U/L (16-63) Alkaline Phosphatase 66 U/L (46-116) Total Protein 5.6 g/dL (6.4-8.2) Albumin 2.2 g/dL (3.4-5.0) Albumin/Globulin Ratio 0.6 (1.0-1.7) Problem List Problems Medical Problems: (1) Generalized weakness Status: Acute Assessment/Plan s/p laparotomy, release SBO await improved bowel function SHAKEEL SOMMER MD 09/20/18 1536: SURGICAL PROGRESS NOTE Assessment/Plan pt seen earlier and examined no stools tolerating full liquids, but not much will ask nutrition service to assess need for continued TPN REMBERTO WINSTON APRN Sep 20, 2018 09:02 SHAKEEL SOMMER MD Sep 20, 2018 15:36
[2018-09-20 11:00] VITALS: BP 93/60
[2018-09-20] MEDS: TPN PER PHARMACY MC PRN (12:40)
--- NOTE | 2018-09-20 12:44 | NUR ---
Pharmacy TPN Dosing Note S: JOHN ROBBINS is a 78 year old M Currently receiving Central Continuous TPN started 09/15/18 B:Pertinent PMH: SBO Height: 5 feet, 10 inches Weight: 60.656095 kg Current diet: NPO LABS: Sodium: 138 Potassium: 4.3 Chloride: 101 Calcium: 8.8 Corrected Calcium: 10.24 Magnesium: 1.9 CO2: 31 SCr: 0.8 Glucose: 226 Albumin: 2.2 AST: 27 ALT: 38 TPN FORMULA: TPN TYPE: Central Continuous AMINO ACIDS: 65 gm DEXTROSE: 225 gm LIPIDS: 20 gm SODIUM ACETATE: 90 mEq POTASSIUM CHLORIDE: 50 mEq POTASSIUM ACETATE: 40 mEq POTASSIUM PHOSPHATE: 20.4 mmol MAGNESIUM: 10 mEq CALCIUM GLUCONATE 10 mEq MULTIPLE VITAMIN: 10 ml TRACE ELEMENTS: 1 ml(s) TPN PLAN: Since all lytes are WNL and patient was only off TPN for one day, restarted previous formulation. No changes made. R: Begin TPN Will monitor electrolytes, glucose, and tolerance to TPN. Clemente Ann [facility]MER[facility], 09/20/18 0560
--- NOTE | 2018-09-20 13:21 | PDOC ---
PULMONARY PROGRESS NOTES Subjective feels better, sob better, has occ cough, Vitals Vital Signs Date Time Temp Pulse Resp B/P (MAP) Pulse Ox O2 Delivery O2 Flow Rate FiO2 09/20/18 12:53 Nasal Cannula 2.0 09/20/18 11:00 97.0 71 18 93/60 (71) 97 97.0 ROS: No Chest Pain, No Abdominal Pain, No Increase Cough General: Alert HEENT: Other (nc at perrl) Lungs: Crackles (BASES) Cardiovascular: S1, S2 Abdomen: Soft, Non-tender Neuro Exam: Alert, Oriented Extremities: No Edema, Other Skin: Warm Labs Laboratory Tests Test 09/19/18 06:35 09/20/18 06:40 White Blood Count 8.1 x10^3/uL (4.0-11.0) Red Blood Count 3.25 x10^6/uL (4.30-5.70) Hemoglobin 10.4 g/dL (13.0-17.5) Hematocrit 30.9 % (39.0-53.0) Mean Corpuscular Volume 95 fL (79-100) Mean Corpuscular Hemoglobin 32 pg (25-35) Mean Corpuscular Hemoglobin Concent 34 g/dL (31-37) Red Cell Distribution Width 14.0 % (11.5-14.5) Platelet Count 162 x10^3/uL (140-400) Neutrophils (%) (Auto) 84 % (31-73) Lymphocytes (%) (Auto) 6 % (24-48) Monocytes (%) (Auto) 10 % (0-9) Eosinophils (%) (Auto) 0 % (0-3) Basophils (%) (Auto) 0 % (0-3) Neutrophils # (Auto) 6.8 x10^3uL (1.8-7.7) Lymphocytes # (Auto) 0.5 x10^3/uL (1.0-4.8) Monocytes # (Auto) 0.8 x10^3/uL (0.0-1.1) Eosinophils # (Auto) 0.0 x10^3/uL (0.0-0.7) Basophils # (Auto) 0.0 x10^3/uL (0.0-0.2) Phosphorus Level 3.1 mg/dL (2.6-4.7) Sodium Level 138 mmol/L (136-145) Potassium Level 4.3 mmol/L (3.5-5.1) Chloride Level 101 mmol/L (98-107) Carbon Dioxide Level 31 mmol/L (21-32) Anion Gap 6 (6-14) Blood Urea Nitrogen 26 mg/dL (8-26) Creatinine 0.8 mg/dL (0.7-1.3) Estimated GFR (Cockcroft-Gault) 94.0 BUN/Creatinine Ratio 33 (6-20) Glucose Level 226 mg/dL (70-99) Calcium Level 8.8 mg/dL (8.5-10.1) Total Bilirubin 0.5 mg/dL (0.2-1.0) Aspartate Amino Transf (AST/SGOT) 27 U/L (15-37) Alanine Aminotransferase (ALT/SGPT) 38 U/L (16-63) Alkaline Phosphatase 66 U/L (46-116) Total Protein 5.6 g/dL (6.4-8.2) Albumin 2.2 g/dL (3.4-5.0) Albumin/Globulin Ratio 0.6 (1.0-1.7) Laboratory Tests Test 09/20/18 06:40 Sodium Level 138 mmol/L (136-145) Potassium Level 4.3 mmol/L (3.5-5.1) Chloride Level 101 mmol/L (98-107) Carbon Dioxide Level 31 mmol/L (21-32) Anion Gap 6 (6-14) Blood Urea Nitrogen 26 mg/dL (8-26) Creatinine 0.8 mg/dL (0.7-1.3) Estimated GFR (Cockcroft-Gault) 94.0 BUN/Creatinine Ratio 33 (6-20) Glucose Level 226 mg/dL (70-99) Calcium Level 8.8 mg/dL (8.5-10.1) Total Bilirubin 0.5 mg/dL (0.2-1.0) Aspartate Amino Transf (AST/SGOT) 27 U/L (15-37) Alanine Aminotransferase (ALT/SGPT) 38 U/L (16-63) Alkaline Phosphatase 66 U/L (46-116) Total Protein 5.6 g/dL (6.4-8.2) Albumin 2.2 g/dL (3.4-5.0) Albumin/Globulin Ratio 0.6 (1.0-1.7) Medications Active Scripts Medications Dose Route/Sig Max Daily Dose Days Date Category Magnesium Chloride 70 Mg Tablet. 64 Mg PO DAILY 30 08/30/18 Rx Synthroid (Levothyroxine Sodium) 88 Mcg Tablet 88 Mcg PO DAILY06 30 08/30/18 Rx Prednisone 20 Mg Tablet 20 Mg PO DAILY 30 08/30/18 Rx Budesonide 0.5 Mg/2 Ml Ampul.neb 0.5 Mg NEB RTBID 30 08/30/18 Rx Diltiazem 24HR Cd (Diltiazem Hcl) 180 Mg Cap.er.24h 180 Mg PO DAILY 90 08/30/18 Rx Hydrocodone-Apap 7.5-325 (Hydrocodone Bit/Acetaminophen) 1 Tab Tablet 1 Tab PO PRN Q6HRS PRN 08/26/18 Reported Prednisolone Sodium Phosphate (Prednisolone Sod Phosphate) 15 Mg/5 Ml Solution 15 Mg PO DAILY 08/26/18 Reported Omeprazole 40 Mg Capsule. 40 Mg PO DAILY 08/26/18 Reported Cartia Xt (Diltiazem Hcl) 120 Mg Cap.er.24h 120 Mg PO DAILY 08/26/18 Reported Prednisone (Prednisone) 10 Mg Tablet 40 Mg PO DAILY 30 07/16/18 Rx Klor-Con 10 (Potassium Chloride) 10 Meq Tablet.er 1 Tab PO DAILY 07/16/18 Rx Lasix (Furosemide) 40 Mg Tablet 1 Tab PO DAILY 07/16/18 Rx Aspirin Ec (Aspirin) 81 Mg Tablet. 81 Mg PO DAILYWBKFT 30 07/16/18 Rx Duoneb 0.5-3(2.5) Mg/3 Ml (Albuterol/Ipratropium) 3 Ml Ampul.neb 3 Ml NEB RTQID 30 07/01/18 Rx Diltiazem 24HR Cd (Diltiazem Hcl) 120 Mg Cap.er.24h 120 Mg PO DAILY 30 07/01/18 Rx Wellbutrin Xl (Bupropion Hcl) 150 Mg Tab.er.24h 1 Tab PO DAILY 06/30/18 Reported Omeprazole 40 Mg Capsule. 1 Cap PO 10/25/14 Reported Impression . IMPRESSION: 1. Chronic respiratory failure. 2. Pulmonary fibrosis.ON CHRONIC STEROIDS 3. Small-bowel obstruction. S/P SURGERY SEE BELOW 4. Other comorbidities as indicated above. PREOPERATIVE DIAGNOSIS: Small bowel obstruction. POSTOPERATIVE DIAGNOSIS: Small bowel obstruction, secondary to adhesive band. PROCEDURE: Diagnostic laparoscopy, followed by laparotomy with release of small-bowel obstruction and decompression of the small bowel. Plan . NG TUBE out TPN for nutrition BD, nebulizer treatments incentive spirometry, instructed how to use, advised to use elevate hob Lovenox, Protonix for prophylaxis Taper IV Steroids discussed w pt AR HINES MD Sep 20, 2018 13:21
[2018-09-20 15:00] VITALS: BP 100/59
--- NOTE | 2018-09-20 16:06 | PDOC ---
PROGRESS NOTES Subjective Subjective Patient feeling better still with very poor po intake. Patient did have BM today. patient still very weak and will need skilled care prior to d/c home. Objective Objective Vital Signs Date Time Temp Pulse Resp B/P (MAP) Pulse Ox O2 Delivery O2 Flow Rate FiO2 09/20/18 15:23 97 Nasal Cannula 2.0 09/20/18 15:00 97.3 63 18 100/59 (73) 97.3 Intake and Output 09/20/18 07:00 Intake Total 900 ml Output Total 2150 ml Balance -1250 ml Intake Oral 900 ml Output Urine Total 2150 ml Physical Exam Abdomen: Other (+ bs) Heart: Regular rate Extremities: No edema General: Alert Lungs: Clear to auscultation, Other (course bases) Assessment Assessment Problems Medical Problems: (1) Generalized weakness Status: Acute Small bowel obstruction. S/P open lap lysis of adhesion and SBO take down POD #6 Severe Protein Malnutrition Debilitation PAST MEDICAL HISTORY: Significant for: 1. Pulmonary fibrosis. 2. COPD. 3. SVT. 4. Hypertension. 5. Osteoarthritis. 6. Gastroesophageal reflux disease, status post dilatation of stricture. 7. Hypothyroidism. 8. BPH. 9. [id number] diastolic congestive heart failure. 10. Severe protein malnutrition. 11. History of prostate cancer. 12. History of hepatitis C. 13. Major depression. Plan Plan of Care Restart TPN per surgery Transfer to SNU when stable Monitor PO intake Comment Review of Relevant I have reviewed the following items sherine (where applicable) has been applied. Labs Laboratory Tests Test 09/19/18 06:35 09/20/18 06:40 White Blood Count 8.1 x10^3/uL (4.0-11.0) Red Blood Count 3.25 x10^6/uL (4.30-5.70) Hemoglobin 10.4 g/dL (13.0-17.5) Hematocrit 30.9 % (39.0-53.0) Mean Corpuscular Volume 95 fL (79-100) Mean Corpuscular Hemoglobin 32 pg (25-35) Mean Corpuscular Hemoglobin Concent 34 g/dL (31-37) Red Cell Distribution Width 14.0 % (11.5-14.5) Platelet Count 162 x10^3/uL (140-400) Neutrophils (%) (Auto) 84 % (31-73) Lymphocytes (%) (Auto) 6 % (24-48) Monocytes (%) (Auto) 10 % (0-9) Eosinophils (%) (Auto) 0 % (0-3) Basophils (%) (Auto) 0 % (0-3) Neutrophils # (Auto) 6.8 x10^3uL (1.8-7.7) Lymphocytes # (Auto) 0.5 x10^3/uL (1.0-4.8) Monocytes # (Auto) 0.8 x10^3/uL (0.0-1.1) Eosinophils # (Auto) 0.0 x10^3/uL (0.0-0.7) Basophils # (Auto) 0.0 x10^3/uL (0.0-0.2) Phosphorus Level 3.1 mg/dL (2.6-4.7) Sodium Level 138 mmol/L (136-145) Potassium Level 4.3 mmol/L (3.5-5.1) Chloride Level 101 mmol/L (98-107) Carbon Dioxide Level 31 mmol/L (21-32) Anion Gap 6 (6-14) Blood Urea Nitrogen 26 mg/dL (8-26) Creatinine 0.8 mg/dL (0.7-1.3) Estimated GFR (Cockcroft-Gault) 94.0 BUN/Creatinine Ratio 33 (6-20) Glucose Level 226 mg/dL (70-99) Calcium Level 8.8 mg/dL (8.5-10.1) Total Bilirubin 0.5 mg/dL (0.2-1.0) Aspartate Amino Transf (AST/SGOT) 27 U/L (15-37) Alanine Aminotransferase (ALT/SGPT) 38 U/L (16-63) Alkaline Phosphatase 66 U/L (46-116) Total Protein 5.6 g/dL (6.4-8.2) Albumin 2.2 g/dL (3.4-5.0) Albumin/Globulin Ratio 0.6 (1.0-1.7) Laboratory Tests Test 09/20/18 06:40 Sodium Level 138 mmol/L (136-145) Potassium Level 4.3 mmol/L (3.5-5.1) Chloride Level 101 mmol/L (98-107) Carbon Dioxide Level 31 mmol/L (21-32) Anion Gap 6 (6-14) Blood Urea Nitrogen 26 mg/dL (8-26) Creatinine 0.8 mg/dL (0.7-1.3) Estimated GFR (Cockcroft-Gault) 94.0 BUN/Creatinine Ratio 33 (6-20) Glucose Level 226 mg/dL (70-99) Calcium Level 8.8 mg/dL (8.5-10.1) Total Bilirubin 0.5 mg/dL (0.2-1.0) Aspartate Amino Transf (AST/SGOT) 27 U/L (15-37) Alanine Aminotransferase (ALT/SGPT) 38 U/L (16-63) Alkaline Phosphatase 66 U/L (46-116) Total Protein 5.6 g/dL (6.4-8.2) Albumin 2.2 g/dL (3.4-5.0) Albumin/Globulin Ratio 0.6 (1.0-1.7) Medications Current Medications Famotidine (Pepcid Vial) 20 mg 1X ONCE IVP Last administered on 09/12/18at 18: 07; Start 09/12/18 at 17:45; Stop 09/12/18 at 17:46; Status DC Ondansetron HCl (Zofran) 4 mg 1X ONCE IV Last administered on 09/12/18at 18:07 ; Start 09/12/18 at 17:45; Stop 09/12/18 at 17:46; Status DC Iohexol (Omnipaque 300 Mg/ml) 75 ml 1X ONCE IV Last administered on 09/12/18at 18:35; Start 09/12/18 at 18:30; Stop 09/12/18 at 18:34; Status DC Info (CONTRAST GIVEN -- Rx MONITORING) 1 each PRN DAILY PRN MC SEE COMMENTS; Start 09/12/18 at 18:45; Stop 09/14/18 at 18:44; Status DC Fentanyl Citrate (Fentanyl 2ml Vial) 50 mcg 1X ONCE IV Last administered on 05/21at 20:21; Start 09/12/18 at 20:00; Stop 09/12/18 at 20:01; Status DC Ondansetron HCl (Zofran) 4 mg PRN Q8HRS PRN IV NAUSEA/VOMITING; Start 09/12/18 at 20:30; Stop 09/13/18 at 20:29; Status DC Morphine Sulfate (Morphine Sulfate) 4 mg PRN Q2HR PRN IV PAIN Last administered on 09/13/18 10:20; Start 09/12/18 at 20:30; Stop 09/13/18 at 20:29 ; Status DC Metronidazole 100 ml @ 100 mls/hr Q8HRS IV Last administered on 09/20/18 06: 30; Start 09/12/18 at 22:00; Stop 09/20/18 at 10:42; Status DC Ciprofloxacin/ Dextrose 200 ml @ 200 mls/hr 1X ONCE IV Last administered on 22:51; Start 09/12/18 at 20:30; Stop 09/12/18 at 21:29; Status DC Sodium Chloride 1,000 ml @ 75 mls/hr 1X ONCE IV Last administered on 22:51; Start 09/12/18 at 20:30; Stop 09/13/18 at 09:49; Status DC Budesonide (Pulmicort) 0.5 mg RTBID NEB Last administered on 09/20/18 07:11; Start 09/13/18 at 09:30 Albuterol/ Ipratropium (Duoneb) 3 ml RTQID NEB Last administered on 09/20/18 15:22; Start 09/13/18 at 09:30 Methylprednisolone Sodium Succinate (SOLU-Medrol 40MG VIAL) 20 mg DAILY IV Last administered on 09/13/18 10:21; Start 09/13/18 at 10:00; Stop 09/14/18 at 12:55; Status DC Pantoprazole Sodium (PROTONIX VIAL for IV PUSH) 40 mg DAILYAC IVP Last administered on 09/20/18 06:30; Start 09/13/18 at 10:00 Enoxaparin Sodium (Lovenox 40mg Syringe) 40 mg Q24H SQ Last administered on 09:02; Start 09/13/18 at 10:00 Metoprolol Tartrate (Lopressor Vial) 5 mg Q6HRS IVP Last administered on 06:41; Start 09/13/18 at 14:00; Stop 09/19/18 at 11:39; Status DC Potassium Chloride/Water 100 ml @ 100 mls/hr Q1H IV Last administered on at 17:10; Start 09/13/18 at 14:00; Stop 09/13/18 at 17:59; Status DC Throat Lozenges (Chloraseptic) 1 spray PRN Q2HR PRN PO SORE THROAT, 2nd choice Last administered on 09/14/18at 13:47; Start 09/13/18 at 16:45 Throat Lozenges (Cepacol Sore Throat Lozenge) 1 deniz PRN Q2HRS PRN PO SORE THROAT, 1st choice Last administered on 09/14/18at 13:46; Start 09/13/18 at 16:45 Aspirin (Aspirin) 300 mg DAILY [place] Last administered on 09/17/18at 11:25; Start 09/14/18 at 09:00; Stop 09/18/18 at 13:30; Status DC Morphine Sulfate (Morphine Sulfate) 4 mg PRN Q2HR PRN IV MODERATE PAIN, SEVERE PAIN Last administered on 09/18/18 21:59; Start 09/13/18 at 21:15 Barium Sulfate (E-Z-Hd) 680 gm 1X ONCE PO ; Start 09/14/18 at 08:00; Stop 09/14 at 08:01; Status DC Iohexol (Omnipaque 300 Mg/ml) 400 ml 1X ONCE PO Last administered on at 08:00; Start 09/14/18 at 08:00; Stop 09/14/18 at 08:01; Status DC Info (CONTRAST GIVEN -- Rx MONITORING) 1 each PRN DAILY PRN MC SEE COMMENTS; Start 09/14/18 at 08:00; Stop 09/16/18 at 07:59; Status DC Potassium Chloride/Water 100 ml @ 100 mls/hr Q1H IV ; Start 09/14/18 at 09:00; Stop 09/14/18 at 12:59; Status DC Methylprednisolone Sodium Succinate (SOLU-Medrol 125MG VIAL) 125 mg DAILY IV Last administered on 09/20/18at 09:01; Start 09/15/18 at 09:00; Stop 09/20/18 at 13:23; Status DC Info (Tpn Per Pharmacy) 1 each PRN DAILY PRN MC SEE COMMENTS Last administered on 09/14/18at 13:51; Start 09/14/18 at 13:30; Stop 09/14/18 at 14:27; Status DC Info (Tpn Per Pharmacy) 1 each PRN DAILY PRN MC SEE COMMENTS Last administered on 09/18/18at 09:54; Start 09/15/18 at 14:30; Stop 09/19/18 at 11:39; Status DC Amino Acids/ Glycerin/ Electrolytes 1,000 ml @ 80 mls/hr [id number] IV Last administered on 09/15/18at 03:32; Start 09/14/18 at 14:30; Stop 09/15/18 at 21:59 ; Status DC Cefazolin Sodium/ Dextrose 50 ml @ 100 mls/hr 1X PREOP PRN IV protocol Last administered on 09/14/18at 17:40; Start 09/15/18 at 06:00; Stop 09/15/18 at 18:00 ; Status DC Metronidazole 100 ml @ 100 mls/hr 1X PREOP PRN IV protocol; Start 09/15/18 at 06:00; Stop 09/15/18 at 18:00; Status DC Ondansetron HCl (Zofran) 4 mg PRN Q6HRS PRN IV NAUSEA/VOMITING; Start 09/14/18 at 16:00; Stop 09/15/18 at 01:45; Status DC Fentanyl Citrate (Fentanyl 2ml Vial) 25 mcg PRN Q5MIN PRN IV MILD PAIN; Start 09/14/18 at 16:00; Stop 09/15/18 at 01:40; Status DC Fentanyl Citrate (Fentanyl 2ml Vial) 50 mcg PRN Q5MIN PRN IV MODERATE TO SEVERE PAIN Last administered on 09/14/18at 20:27; Start 09/14/18 at 16:00; Stop 09/15/18 at 01:40; Status DC Morphine Sulfate (Morphine Sulfate) 1 mg PRN Q10MIN PRN IV SEVERE PAIN Last administered on 09/14/18at 21:51; Start 09/14/18 at 16:00; Stop 09/15/18 at 01:40 ; Status DC Ringer's Solution 1,000 ml @ 30 mls/hr Q24H IV Last administered on 09/14/18at 21:30; Start 09/14/18 at 15:52; Stop 09/15/18 at 01:40; Status DC Lidocaine HCl (Xylocaine-Mpf 1% 2ml Vial) 2 ml 1X PRN PRN ID IV START; Start at 16:00; Stop 09/15/18 at 15:59; Status DC Hydromorphone HCl (Dilaudid) 0.5 mg PRN Q10MIN PRN IV SEV PAIN, Second choice; Start 09/14/18 at 16:00; Stop 09/15/18 at 01:45; Status DC Prochlorperazine Edisylate (Compazine) 5 mg PACU PRN PRN IV NAUSEA, MRX1 Last administered on 09/14/18at 21:02; Start 09/14/18 at 16:00; Stop 09/15/18 at 01:40 ; Status DC Cefazolin Sodium/ Dextrose 50 ml @ As Directed STK-MED ONCE IV ; Start 09/14/18 at 16:08; Stop 09/14/18 at 16:09; Status DC Propofol 20 ml @ As Directed STK-MED ONCE IV ; Start 09/14/18 at 16:32; Stop 07/21 at 16:33; Status DC Dexamethasone Sodium Phosphate (Decadron) 20 mg STK-MED ONCE .ROUTE ; Start 07/21 at 16:32; Stop 09/14/18 at 16:33; Status DC Lidocaine HCl (Lidocaine Pf 2% Vial) 5 ml STK-MED ONCE .ROUTE ; Start 09/14/18 at 16:32; Stop 09/14/18 at 16:33; Status DC Ondansetron HCl (Zofran) 4 mg STK-MED ONCE .ROUTE ; Start 09/14/18 at 16:32; Stop 09/14/18 at 16:33; Status DC Succinylcholine Chloride (Anectine) 200 mg STK-MED ONCE .ROUTE ; Start 09/14/18 at 16:32; Stop 09/14/18 at 16:33; Status DC Rocuronium [place] (Zemuron) 50 mg STK-MED ONCE .ROUTE ; Start 09/14/18 at 16:32 ; Stop 09/14/18 at 16:33; Status DC Fentanyl Citrate (Fentanyl 2ml Vial) 100 mcg STK-MED ONCE .ROUTE ; Start at 16:32; Stop 09/14/18 at 16:33; Status DC Bupivacaine HCl/ Epinephrine Bitart (Sensorcain-Mpf Epi 0.5%-[id number]) 30 ml STK -MED ONCE .ROUTE Last administered on 09/14/18at 17:57; Start 09/14/18 at 17:18 ; Stop 09/14/18 at 17:19; Status DC Cefazolin Sodium/ Dextrose 50 ml @ As Directed STK-MED ONCE IV ; Start 09/14/18 at 17:28; Stop 09/14/18 at 17:29; Status DC Lidocaine HCl (Glydo (Lidocaine) Jelly) 6 marcel STK-MED ONCE .ROUTE ; Start at 17:43; Stop 09/14/18 at 17:44; Status DC Hydrocortisone Sodium Succinate (Solu-CORTEF) 100 mg STK-MED ONCE .ROUTE ; Start 09/14/18 at 18:08; Stop 09/14/18 at 18:09; Status DC Phenylephrine HCl (Shaw-Synephrine Inj) 10 mg STK-MED ONCE .ROUTE ; Start at 18:11; Stop 09/14/18 at 18:12; Status DC Glycopyrrolate (Robinul) 1 mg STK-MED ONCE .ROUTE ; Start 09/14/18 at 19:05; Stop 09/14/18 at 19:06; Status DC Sevoflurane (Ultane) 60 ml STK-MED ONCE IH ; Start 09/14/18 at 19:23; Stop 09/14 at 19:24; Status DC Enoxaparin Sodium (Lovenox 40mg Syringe) 30 mg Q24H SQ ; Start 09/14/18 at 19:45 ; Status UNV Sodium Chloride (Normal Saline Flush) 3 ml QSHIFT PRN IV AFTER MEDS AND BLOOD DRAWS; Start 09/14/18 at 19:45 Hydromorphone HCl 30 ml @ 0 mls/hr CONT PRN PRN IV PER PROTOCOL Last administered on 09/14/18at 20:25; Start 09/14/18 at 19:45; Stop 09/15/18 at 08:34 ; Status DC Ondansetron HCl (Zofran) 4 mg PRN Q6HRS PRN IV NAUESA, 1ST CHOICE; Start at 19:45 Ringer's Solution 1,000 ml @ 75 mls/hr [id number] IV Last administered on at 21:00; Start 09/14/18 at 21:00; Stop 09/15/18 at 01:45; Status DC Lorazepam (Ativan) 0.5 mg PRN Q6HRS PRN IV ANXIETY / AGITATION; Start 09/14/18 at 22:15 Albumin Human 250 ml @ 83.3 mls/hr 1X ONCE IV Last administered on 09/15/18at 01:15; Start 09/15/18 at 01:00; Stop 09/15/18 at 04:00; Status DC Hydromorphone HCl (Dilaudid) 0.5 mg PRN Q3HRS PRN IV MILD PAIN; Start 09/15/18 at 08:30 Albumin Human 500 ml @ 125 mls/hr 1X ONCE IV Last administered on 09/15/18at 10:23; Start 09/15/18 at 09:00; Stop 09/15/18 at 12:59; Status DC Sodium Chloride 250 ml @ 500 mls/hr 1X ONCE IV Last administered on at 11:00; Start 09/15/18 at 11:00; Stop 09/15/18 at 11:29; Status DC Sodium Chloride 1,000 ml @ 100 mls/hr Q10H IV Last administered on 09/15/18at 11:30; Start 09/15/18 at 11:30; Stop 09/15/18 at 22:00; Status DC Sodium Chloride 1,000 ml @ 75 mls/hr [id number] IV Last administered on at 00:12; Start 09/15/18 at 22:00; Stop 09/17/18 at 12:12; Status DC Sodium Acetate 90 meq/Potassium Chloride 50 meq/ Potassium Phosphate 3.4 mmol/ Magnesium Sulfate 10 meq/ Calcium Gluconate 10 meq/ Multivitamins 10 ml/Chromium / Copper/Manganese/ Seleni/Zn 1 ml/ Total Parenteral Nutrition/Amino Acids/ Dextrose/ Fat Emulsion Intravenous 1,512 ml @ 63 mls/hr TPN CONT IV Last administered on 09/15/18at 21:43; Start 09/15/18 at 22:00; Stop 09/16/18 at 21:59 ; Status DC Lidocaine/Sodium Bicarbonate (Buffered Lidocaine 1%) 3 ml STK-MED ONCE .ROUTE ; Start 09/15/18 at 14:35; Stop 09/15/18 at 14:36; Status DC Heparin Sodium/ Sodium Chloride 500 ml @ As Directed STK-MED ONCE .ROUTE ; Start 09/15/18 at 14:35; Stop 09/15/18 at 14:36; Status DC Heparin Sodium/ Sodium Chloride 500 ml @ As Directed STK-MED ONCE .ROUTE ; Start 09/15/18 at 14:36; Stop 09/15/18 at 14:37; Status DC Heparin Sodium/ Sodium Chloride (HEPARIN for ARTERIAL LINE FLUSH) 1,000 unit 1X ONCE IART Last administered on 09/15/18at 15:15; Start 09/15/18 at 15:15; Stop 09/15/18 at 15:16; Status DC Lidocaine/Sodium Bicarbonate (Buffered Lidocaine 1%) 3 ml 1X ONCE IJ Last administered on 09/15/18at 15:15; Start 09/15/18 at 15:15; Stop 09/15/18 at 15:16 ; Status DC Potassium Phosphate 13.6 mmol/Dextrose 104.5333 ml @ 52.267 m... 1X ONCE IV Last administered on 09/16/18at 09:53; Start 09/16/18 at 10:00; Stop 09/16/18 at 11:59; Status DC Sodium Acetate 90 meq/Potassium Chloride 50 meq/ Potassium Phosphate 15 mmol/ Magnesium Sulfate 10 meq/Calcium Gluconate 10 meq/ Multivitamins 10 ml/Chromium / Copper/Manganese/ Seleni/Zn 1 ml/ Total Parenteral Nutrition/Amino Acids/ Dextrose/ Fat Emulsion Intravenous 1,512 ml @ 63 mls/hr TPN CONT IV Last administered on 09/16/18at 21:49; Start 09/16/18 at 22:00; Stop 09/17/18 at 21:59 ; Status DC Albuterol/ Ipratropium (Duoneb) 3 ml RTQID NEB ; Start 09/16/18 at 12:00; Stop 09/16/18 at 12:00; Status DC Sodium Chloride 1,000 ml @ 75 mls/hr [id number] IV Last administered on at 06:20; Start 09/17/18 at 13:00; Stop 09/19/18 at 11:39; Status DC Potassium Phosphate 13.6 mmol/Dextrose 104.5333 ml @ 52.267 m... ONCE ONCE IV Last administered on 09/17/18 14:14; Start 09/17/18 at 13:00; Stop 09/17/18 at 14:59; Status DC Sodium Acetate 90 meq/Potassium Acetate 40 meq/ Potassium Phosphate 20.4 mmol/ Magnesium Sulfate 10 meq/ Calcium Gluconate 10 meq/ Multivitamins 10 ml/Chromium / Copper/Manganese/ Seleni/Zn 1 ml/ Total Parenteral Nutrition/Amino Acids/ Dextrose/ Fat Emulsion Intravenous 1,512 ml @ 63 mls/hr TPN CONT IV Last administered on 09/17/18 23:14; Start 09/17/18 at 22:00; Stop 09/18/18 at 21:59 ; Status DC Sodium Acetate 90 meq/Potassium Acetate 40 meq/ Potassium Phosphate 20.4 mmol/ Magnesium Sulfate 10 meq/ Calcium Gluconate 10 meq/ Multivitamins 10 ml/Chromium / Copper/Manganese/ Seleni/Zn 1 ml/ Total Parenteral Nutrition/Amino Acids/ Dextrose/ Fat Emulsion Intravenous 1,512 ml @ 63 mls/hr TPN CONT IV Last administered on 09/18/18at 21:51; Start 09/18/18 at 22:00; Stop 09/19/18 at 11:39 ; Status DC Aspirin (Ecotrin) 325 mg DAILYWBKFT PO Last administered on 09/20/18 09:01; Start 09/18/18 at 13:30 Acetaminophen/ Hydrocodone Bitart (Lortab 10/325) 1 tab PRN Q6HRS PRN PO PAIN Last administered on 09/20/18 12:53; Start 09/19/18 at 10:15 Levothyroxine Sodium (Synthroid) 88 mcg DAILY06 PO Last administered on 06:30; Start 09/19/18 at 15:30 Diltiazem HCl (Cardizem 24hr Cd) 120 mg DAILY PO Last administered on 09:01; Start 09/19/18 at 12:00 Info (Tpn Per Pharmacy) 1 each PRN DAILY PRN MC SEE COMMENTS Last administered on 09/20/18 12:40; Start 09/20/18 at 11:30 Sodium Acetate 90 meq/Potassium Acetate 40 meq/ Potassium Phosphate 20.4 mmol/ Magnesium Sulfate 10 meq/ Calcium Gluconate 10 meq/ Multivitamins 10 ml/Chromium / Copper/Manganese/ Seleni/Zn 1 ml/ Total Parenteral Nutrition/Amino Acids/ Dextrose/ Fat Emulsion Intravenous 1,512 ml @ 63 mls/hr TPN CONT IV ; Start at 22:00; Stop 09/21/18 at 21:59 Methylprednisolone Sodium Succinate (SOLU-Medrol 125MG VIAL) 60 mg DAILY IV ; Start 09/21/18 at 09:00 Active Scripts Active Magnesium Chloride 70 Mg Tablet. 64 Mg PO DAILY 30 Days Synthroid (Levothyroxine Sodium) 88 Mcg Tablet 88 Mcg PO DAILY06 30 Days Prednisone 20 Mg Tablet 20 Mg PO DAILY 30 Days Budesonide 0.5 Mg/2 Ml Ampul.neb 0.5 Mg NEB RTBID 30 Days Diltiazem 24HR Cd (Diltiazem Hcl) 180 Mg Cap.er.24h 180 Mg PO DAILY 90 Days Prednisone (Prednisone) 10 Mg Tablet 40 Mg PO DAILY 30 Days Klor-Con 10 (Potassium Chloride) 10 Meq Tablet.er 1 Tab PO DAILY Lasix (Furosemide) 40 Mg Tablet 1 Tab PO DAILY Aspirin Ec (Aspirin) 81 Mg Tablet. 81 Mg PO DAILYWBKFT 30 Days Duoneb 0.5-3(2.5) Mg/3 Ml (Albuterol/Ipratropium) 3 Ml Ampul.neb 3 Ml NEB RTQID 30 Days Diltiazem 24HR Cd (Diltiazem Hcl) 120 Mg Cap.er.24h 120 Mg PO DAILY 30 Days Reported Hydrocodone-Apap 7.5-325 (Hydrocodone Bit/Acetaminophen) 1 Tab Tablet 1 Tab PO PRN Q6HRS PRN Prednisolone Sodium Phosphate (Prednisolone Sod Phosphate) 15 Mg/5 Ml Solution 15 Mg PO DAILY Omeprazole 40 Mg Capsule. 40 Mg PO DAILY Cartia Xt (Diltiazem Hcl) 120 Mg Cap.er.24h 120 Mg PO DAILY Wellbutrin Xl (Bupropion Hcl) 150 Mg Tab.er.24h 1 Tab PO DAILY Omeprazole 40 Mg Capsule. 1 Cap PO Vitals/I & O Vital Sign - Last 24 Hours 09/19/18 09/19/18 09/19/18 09/19/18 16:55 17:55 19:00 19:46 Temp 97.7 97.7 Pulse 72 Resp 20 20 18 B/P (MAP) 138/99 (112) Pulse Ox 98 97 O2 Delivery Nasal Cannula Nasal Cannula Nasal Cannula O2 Flow Rate 2.0 2.0 2.0 09/19/18 09/19/18 09/19/18 09/20/18 19:46 20:00 23:00 03:00 Temp 97.6 98.1 97.6 98.1 Pulse 60 69 Resp 18 18 B/P (MAP) 165/97 (119) 125/81 (96) Pulse Ox 97 94 97 O2 Delivery Nasal Cannula Nasal Cannula Nasal Cannula Nasal Cannula O2 Flow Rate 2.0 2.0 2.0 2.0 09/20/18 09/20/18 09/20/18 09/20/18 06:59 07:00 07:11 07:35 Temp 97.6 97.6 Pulse 55 Resp 18 B/P (MAP) 119/80 (93) Pulse Ox 95 97 O2 Delivery Nasal Cannula Room Air Nasal Cannula Nasal Cannula O2 Flow Rate 2.0 2.0 2.0 09/20/18 09/20/18 09/20/18 09/20/18 09:01 11:00 11:20 12:53 Temp 97.0 97.0 Pulse 65 71 Resp 18 B/P (MAP) 119/80 93/60 (71) Pulse Ox 97 O2 Delivery Nasal Cannula Nasal Cannula Nasal Cannula O2 Flow Rate 2.0 2.0 2.0 09/20/18 09/20/18 09/20/18 14:00 15:00 15:23 Temp 97.3 97.3 Pulse 63 Resp 18 B/P (MAP) 100/59 (73) Pulse Ox 95 97 O2 Delivery Nasal Cannula Room Air Nasal Cannula O2 Flow Rate 2.0 2.0 Intake and Output 09/19/18 09/19/18 09/20/18 15:00 23:00 07:00 Intake Total 700 ml 200 ml Output Total 300 ml 1650 ml 200 ml Balance -300 ml -950 ml 0 ml Nutrition Consultation Dietary Evaluation: Recommendations by RD: Increase Calorie Intake, Protein supplementation, PPN/ TPN Comments: REC resume TPN per followin grams dextrose, 65 grams AA, 20 grams lipid added ensure enlive bid, pt on full liquids Expected Outcomes/Goals: TPN for nutrition needs s/p abdominal surgery until po intake tolerated w/ solid foods Interpretation of weight loss: >5% in 1 month Malnutrition Findings: Food and Nutrition Intake (Sev: <50% est energy req 5days Weight Status: Underweight LOURDES POLLOCK MD Sep 20, 2018 16:06
[2018-09-20 19:00] VITALS: BP 103/71
[2018-09-20] MEDS ORDERED: [UNRECOGNIZED DRUG - OTHER] IV SCH ×10 (22:00)
[2018-09-20] MEDS ORDERED: TOTAL PARENTERAL NUTRITION IV SCH ×10 (22:00)
[2018-09-20] MEDS ORDERED: DEXTROSE 70% IV SCH ×10 (22:00)
[2018-09-20] MEDS ORDERED: AMINO ACID IV SCH ×10 (22:00)
[2018-09-20 23:00] VITALS: BP 116/82
[2018-09-21] MEDS ORDERED: DEXTROSE 50% 25 GM / 50ML DISP.SYRIN. IV PRN
[2018-09-21 03:00] VITALS: BP 108/70
--- NOTE | 2018-09-21 06:17 | NUR ---
TPN restarted last night. FSBS was 343, patient refused sliding scale insulin. Standing at bedside, voiding per urinal.
[2018-09-21] MEDS: LEVOTHYROXINE 88 MCG TABLET PO SCH (06:34)
[2018-09-21] MEDS: PANTOPRAZOLE IV PUSH 40 MG VIAL. IVP SCH (06:34)
[2018-09-21 07:26] VITALS: BP 113/78
[2018-09-21] MEDS: BUDESONIDE 0.5 MG/2 ML NEBU. NEB SCH ×2 (07:37→20:06)
[2018-09-21] MEDS: IPRATRPIUM/ALBUTEROL 0.5/2.5MG 3 ML NEBU. NEB SCH ×4 (07:37→20:06)
[2018-09-21] MEDS ORDERED: INSULIN LISPRO 300 UNITS/3 ML INSULN.PEN. SQ SCH (08:00)
[2018-09-21] MEDS: ASPIRIN ENTERIC COATED 325 MG TABLET.DR. PO SCH (08:33)
[2018-09-21] MEDS: HYDROcodone/APAP 10/325 1 TAB TABLET PO PRN ×3 (08:35→21:06)
[2018-09-21] MEDS ORDERED: methylPREDNISolone SOD SUCC PF 125 MG/2 ML VIAL. IV SCH (09:00)
--- NOTE | 2018-09-21 09:00 | NUR ---
This patient refused insulin, paged for orders for SSI. This nurse will continue to monitor.
--- NOTE | 2018-09-21 09:13 | PDOC ---
REMBERTO WINSTON ACTIMIZE ARCHITECT 09/21/18912: SURGICAL PROGRESS NOTE Subjective Tolerating diet had a stool plans for PP at DC on TPN ate better for breakfast Vital Signs Vital Signs Date Time Temp Pulse Resp B/P (MAP) Pulse Ox O2 Delivery O2 Flow Rate FiO2 09/21/18 08:35 97 Nasal Cannula 3.0 09/21/18 08:34 67 113/78 09/21/18 07:26 97.8 18 97.8 I&O Intake and Output 09/21/18 06:59 Intake Total 508 ml Output Total 150 ml Balance 358 ml Intake Oral 360 ml Blood Product IV Normal Saline Flush 148 ml Output Urine Total 150 ml # Bowel Movements 1 General: Alert, Oriented X3, Cooperative, No acute distress Abdomen: Soft, Other (ND, incision c/d/i, no erythema ) Labs Laboratory Tests Test 09/20/18 06:40 09/20/18 23:04 09/21/18 07:16 Sodium Level 138 mmol/L (136-145) Potassium Level 4.3 mmol/L (3.5-5.1) Chloride Level 101 mmol/L (98-107) Carbon Dioxide Level 31 mmol/L (21-32) Anion Gap 6 (6-14) Blood Urea Nitrogen 26 mg/dL (8-26) Creatinine 0.8 mg/dL (0.7-1.3) Estimated GFR (Cockcroft-Gault) 94.0 BUN/Creatinine Ratio 33 (6-20) Glucose Level 226 mg/dL (70-99) Calcium Level 8.8 mg/dL (8.5-10.1) Total Bilirubin 0.5 mg/dL (0.2-1.0) Aspartate Amino Transf (AST/SGOT) 27 U/L (15-37) Alanine Aminotransferase (ALT/SGPT) 38 U/L (16-63) Alkaline Phosphatase 66 U/L (46-116) Total Protein 5.6 g/dL (6.4-8.2) Albumin 2.2 g/dL (3.4-5.0) Albumin/Globulin Ratio 0.6 (1.0-1.7) Glucose (Fingerstick) 343 mg/dL (70-99) 360 mg/dL (70-99) Laboratory Tests Test 09/20/18 23:04 09/21/18 07:16 Glucose (Fingerstick) 343 mg/dL (70-99) 360 mg/dL (70-99) Problem List Problems Medical Problems: (1) Generalized weakness Status: Acute Assessment/Plan will see how he does with diet today possible dc tomorrow SHAKEEL SOMMER MD 09/21/18 1344: SURGICAL PROGRESS NOTE Assessment/Plan pt seen as above looks better just back from walk with PT taper TPN REMBERTO WINSTON APRN Sep 21, 2018 09:13 SHAKEEL SOMMER MD Sep 21, 2018 13:44
[2018-09-21] MEDS: predniSONE 20 MG TABLET PO SCH (10:20)
[2018-09-21] MEDS: ENOXAPARIN 40 MG/0.4 ML SYRINGE. SQ SCH (10:21)
[2018-09-21 11:00] VITALS: BP 124/80
--- NOTE | 2018-09-21 11:19 | NUR ---
SW following. Discussed with RN, pt having a GI soft diet today. Possible discharge to [facility] tomorrow. SW will continue to follow
--- NOTE | 2018-09-21 11:38 | PDOC ---
PULMONARY PROGRESS NOTES Subjective feels better, sob better, has occ cough, Vitals Vital Signs Date Time Temp Pulse Resp B/P (MAP) Pulse Ox O2 Delivery O2 Flow Rate FiO2 09/21/18 11:33 98 Nasal Cannula 2.0 09/21/18 11:00 97.4 71 18 124/80 (95) 97.4 ROS: No Chest Pain, No Abdominal Pain, No Increase Cough General: Alert HEENT: Other (nc at perrl) Lungs: Crackles (BASES) Cardiovascular: S1, S2 Abdomen: Soft, Non-tender Neuro Exam: Alert, Oriented Extremities: No Edema, Other Skin: Warm Labs Laboratory Tests Test 09/20/18 06:40 09/20/18 23:04 09/21/18 07:16 Sodium Level 138 mmol/L (136-145) Potassium Level 4.3 mmol/L (3.5-5.1) Chloride Level 101 mmol/L (98-107) Carbon Dioxide Level 31 mmol/L (21-32) Anion Gap 6 (6-14) Blood Urea Nitrogen 26 mg/dL (8-26) Creatinine 0.8 mg/dL (0.7-1.3) Estimated GFR (Cockcroft-Gault) 94.0 BUN/Creatinine Ratio 33 (6-20) Glucose Level 226 mg/dL (70-99) Calcium Level 8.8 mg/dL (8.5-10.1) Total Bilirubin 0.5 mg/dL (0.2-1.0) Aspartate Amino Transf (AST/SGOT) 27 U/L (15-37) Alanine Aminotransferase (ALT/SGPT) 38 U/L (16-63) Alkaline Phosphatase 66 U/L (46-116) Total Protein 5.6 g/dL (6.4-8.2) Albumin 2.2 g/dL (3.4-5.0) Albumin/Globulin Ratio 0.6 (1.0-1.7) Glucose (Fingerstick) 343 mg/dL (70-99) 360 mg/dL (70-99) Laboratory Tests Test 09/20/18 23:04 09/21/18 07:16 Glucose (Fingerstick) 343 mg/dL (70-99) 360 mg/dL (70-99) Medications Active Scripts Medications Dose Route/Sig Max Daily Dose Days Date Category Magnesium Chloride 70 Mg Tablet.dr 64 Mg PO DAILY 30 08/30/18 Rx Synthroid (Levothyroxine Sodium) 88 Mcg Tablet 88 Mcg PO DAILY06 30 08/30/18 Rx Prednisone 20 Mg Tablet 20 Mg PO DAILY 30 08/30/18 Rx Budesonide 0.5 Mg/2 Ml Ampul.neb 0.5 Mg NEB RTBID 30 08/30/18 Rx Diltiazem 24HR Cd (Diltiazem Hcl) 180 Mg Cap.er.24h 180 Mg PO DAILY 90 08/30/18 Rx Hydrocodone-Apap 7.5-325 (Hydrocodone Bit/Acetaminophen) 1 Tab Tablet 1 Tab PO PRN Q6HRS PRN 08/26/18 Reported Prednisolone Sodium Phosphate (Prednisolone Sod Phosphate) 15 Mg/5 Ml Solution 15 Mg PO DAILY 08/26/18 Reported Omeprazole 40 Mg Capsule. 40 Mg PO DAILY 08/26/18 Reported Cartia Xt (Diltiazem Hcl) 120 Mg Cap.er.24h 120 Mg PO DAILY 08/26/18 Reported Prednisone (Prednisone) 10 Mg Tablet 40 Mg PO DAILY 30 07/16/18 Rx Klor-Con 10 (Potassium Chloride) 10 Meq Tablet.er 1 Tab PO DAILY 07/16/18 Rx Lasix (Furosemide) 40 Mg Tablet 1 Tab PO DAILY 07/16/18 Rx Aspirin Ec (Aspirin) 81 Mg Tablet. 81 Mg PO DAILYWBKFT 07/16/18 Rx Duoneb 0.5-3(2.5) Mg/3 Ml (Albuterol/Ipratropium) 3 Ml Ampul.neb 3 Ml NEB RTQID 30 07/01/18 Rx Diltiazem 24HR Cd (Diltiazem Hcl) 120 Mg Cap.er.24h 120 Mg PO DAILY 30 07/01/18 Rx Wellbutrin Xl (Bupropion Hcl) 150 Mg Tab.er.24h 1 Tab PO DAILY 06/30/18 Reported Omeprazole 40 Mg Capsule. 1 Cap PO 10/25/14 Reported Impression . IMPRESSION: 1. Chronic respiratory failure. 2. Pulmonary fibrosis.ON CHRONIC STEROIDS 3. Small-bowel obstruction. S/P SURGERY SEE BELOW 4. Other comorbidities as indicated above. PREOPERATIVE DIAGNOSIS: Small bowel obstruction. POSTOPERATIVE DIAGNOSIS: Small bowel obstruction, secondary to adhesive band. PROCEDURE: Diagnostic laparoscopy, followed by laparotomy with release of small-bowel obstruction and decompression of the small bowel. Plan . NG TUBE out TPN for nutrition BD, nebulizer treatments incentive spirometry, instructed how to use, advised to use elevate hob Lovenox, Protonix for prophylaxis Taper IV Steroids discussed w pt AR HINES MD Sep 21, 2018 11:38
[2018-09-21] MEDS: TPN PER PHARMACY MC PRN (12:23)
--- NOTE | 2018-09-21 12:25 | NUR ---
Pharmacy TPN Dosing Note S: JOHN ROBBINS is a 78 year old M Currently receiving Central Continuous TPN started 09/15/18 B:Pertinent PMH: SBO Height: 5 feet, 10 inches Weight: 60.1 kg Current diet: GI soft LABS: Sodium: 138 Potassium: 4.3 Chloride: 101 Calcium: 8.8 Corrected Calcium: 10.24 Magnesium: 1.9 CO2: 31 SCr: 0.8 Glucose: 226 Albumin: 2.2 AST: 27 ALT: 38 TPN FORMULA: TPN TYPE: Central Continuous AMINO ACIDS: 65 gm DEXTROSE: 225 gm LIPIDS: 20 gm SODIUM ACETATE: 90 mEq POTASSIUM CHLORIDE: 50 mEq POTASSIUM ACETATE: 40 mEq POTASSIUM PHOSPHATE: 20.4 mmol MAGNESIUM: 10 mEq CALCIUM: 10 mEq MULTIPLE VITAMIN: 10 ml TRACE ELEMENTS: 1 ml TPN PLAN: No labs today. Continue same. Patient starting GI soft diet with plans to possibly d/c to [facility] Place 09/22. Sliding scale insulin initiatied today. R: Continue TPN Will monitor electrolytes, glucose, and tolerance to TPN. Yuki Wilhelm FORMERLY [facility] [place], 09/21/18 [id number]
--- NOTE | 2018-09-21 12:59 | PDOC ---
PROGRESS NOTES Subjective Subjective Patient feeling better. Patient tolerating diet but still has inadequate intake. TPN ongoing. High blood sugars noted and IV steroids discontinued. Sliding-scale increased. By mouth steroids started. Transition to all by mouth medication. Objective Objective Vital Signs Date Time Temp Pulse Resp B/P (MAP) Pulse Ox O2 Delivery O2 Flow Rate FiO2 09/21/18 11:33 98 Nasal Cannula 2.0 09/21/18 11:00 97.4 71 18 124/80 (95) 97.4 Intake and Output 09/21/18 07:00 Intake Total 508 ml Output Total 150 ml Balance 358 ml Intake Oral 360 ml Blood Product IV Normal Saline Flush 148 ml Output Urine Total 150 ml # Bowel Movements 1 Physical Exam Abdomen: Other (slight distention positive bowel sounds but hypoactive) Heart: Regular rate Extremities: No edema General: Alert Lungs: Other (coarse breath sounds and crackles in base) Assessment Assessment Problems Medical Problems: (1) Generalized weakness Status: Acute Small bowel obstruction. S/P open lap lysis of adhesion and SBO take down POD #7 Severe Protein Malnutrition Debilitation PAST MEDICAL HISTORY: Significant for: 1. Pulmonary fibrosis. 2. COPD. 3. SVT. 4. Hypertension. 5. Osteoarthritis. 6. Gastroesophageal reflux disease, status post dilatation of stricture. 7. Hypothyroidism. 8. BPH. 9. Ubzim-ar-uotoadw diastolic congestive heart failure. 10. Severe protein malnutrition. 11. History of prostate cancer. 12. History of hepatitis C. 13. Major depression. Plan Plan of Care Monitor diet for the next 24 hours Continue TPN per surgery Transfer to SNU when stable Comment Review of Relevant I have reviewed the following items sherine (where applicable) has been applied. Labs Laboratory Tests Test 09/20/18 06:40 09/20/18 23:04 09/21/18 07:16 09/21/18 12:14 Sodium Level 138 mmol/L (136-145) Potassium Level 4.3 mmol/L (3.5-5.1) Chloride Level 101 mmol/L (98-107) Carbon Dioxide Level 31 mmol/L (21-32) Anion Gap 6 (6-14) Blood Urea Nitrogen 26 mg/dL (8-26) Creatinine 0.8 mg/dL (0.7-1.3) Estimated GFR (Cockcroft-Gault) 94.0 BUN/Creatinine Ratio 33 (6-20) Glucose Level 226 mg/dL (70-99) Calcium Level 8.8 mg/dL (8.5-10.1) Total Bilirubin 0.5 mg/dL (0.2-1.0) Aspartate Amino Transf (AST/SGOT) 27 U/L (15-37) Alanine Aminotransferase (ALT/SGPT) 38 U/L (16-63) Alkaline Phosphatase 66 U/L (46-116) Total Protein 5.6 g/dL (6.4-8.2) Albumin 2.2 g/dL (3.4-5.0) Albumin/Globulin Ratio 0.6 (1.0-1.7) Glucose (Fingerstick) 343 mg/dL (70-99) 360 mg/dL (70-99) 396 mg/dL (70-99) Laboratory Tests Test 09/20/18 23:04 09/21/18 07:16 09/21/18 12:14 Glucose (Fingerstick) 343 mg/dL (70-99) 360 mg/dL (70-99) 396 mg/dL (70-99) Medications Current Medications Famotidine (Pepcid Vial) 20 mg 1X ONCE IVP Last administered on 09/12/18at 18: 07; Start 09/12/18 at 17:45; Stop 09/12/18 at 17:46; Status DC Ondansetron HCl (Zofran) 4 mg 1X ONCE IV Last administered on 09/12/18at 18:07 ; Start 09/12/18 at 17:45; Stop 09/12/18 at 17:46; Status DC Iohexol (Omnipaque 300 Mg/ml) 75 ml 1X ONCE IV Last administered on 09/12/18at 18:35; Start 09/12/18 at 18:30; Stop 09/12/18 at 18:34; Status DC Info (CONTRAST GIVEN -- Rx MONITORING) 1 each PRN DAILY PRN MC SEE COMMENTS; Start 09/12/18 at 18:45; Stop 09/14/18 at 18:44; Status DC Fentanyl Citrate (Fentanyl 2ml Vial) 50 mcg 1X ONCE IV Last administered on 05/21at 20:21; Start 09/12/18 at 20:00; Stop 09/12/18 at 20:01; Status DC Ondansetron HCl (Zofran) 4 mg PRN Q8HRS PRN IV NAUSEA/VOMITING; Start 09/12/18 at 20:30; Stop 09/13/18 at 20:29; Status DC Morphine Sulfate (Morphine Sulfate) 4 mg PRN Q2HR PRN IV PAIN Last administered on 09/13/18at 10:20; Start 09/12/18 at 20:30; Stop 09/13/18 at 20:29 ; Status DC Metronidazole 100 ml @ 100 mls/hr Q8HRS IV Last administered on 09/20/18 06: 30; Start 09/12/18 at 22:00; Stop 09/20/18 at 10:42; Status DC Ciprofloxacin/ Dextrose 200 ml @ 200 mls/hr 1X ONCE IV Last administered on 22:51; Start 09/12/18 at 20:30; Stop 09/12/18 at 21:29; Status DC Sodium Chloride 1,000 ml @ 75 mls/hr 1X ONCE IV Last administered on 22:51; Start 09/12/18 at 20:30; Stop 09/13/18 at 09:49; Status DC Budesonide (Pulmicort) 0.5 mg RTBID NEB Last administered on 09/21/18 07:37; Start 09/13/18 at 09:30 Albuterol/ Ipratropium (Duoneb) 3 ml RTQID NEB Last administered on 09/21/18 11:31; Start 09/13/18 at 09:30 Methylprednisolone Sodium Succinate (SOLU-Medrol 40MG VIAL) 20 mg DAILY IV Last administered on 09/13/18 10:21; Start 09/13/18 at 10:00; Stop 09/14/18 at 12:55; Status DC Pantoprazole Sodium (PROTONIX VIAL for IV PUSH) 40 mg DAILYAC IVP Last administered on 09/21/18 06:34; Start 09/13/18 at 10:00; Stop 09/21/18 at 09:13 ; Status DC Enoxaparin Sodium (Lovenox 40mg Syringe) 40 mg Q24H SQ Last administered on 10:21; Start 09/13/18 at 10:00 Metoprolol Tartrate (Lopressor Vial) 5 mg Q6HRS IVP Last administered on 2/17/ 19at 06:41; Start 09/13/18 at 14:00; Stop 09/19/18 at 11:39; Status DC Potassium Chloride/Water 100 ml @ 100 mls/hr Q1H IV Last administered on at 17:10; Start 09/13/18 at 14:00; Stop 09/13/18 at 17:59; Status DC Throat Lozenges (Chloraseptic) 1 spray PRN Q2HR PRN PO SORE THROAT, 2nd choice Last administered on 09/14/18at 13:47; Start 09/13/18 at 16:45 Throat Lozenges (Cepacol Sore Throat Lozenge) 1 deniz PRN Q2HRS PRN PO SORE THROAT, 1st choice Last administered on 09/14/18at 13:46; Start 09/13/18 at 16:45 Aspirin (Aspirin) 300 mg DAILY NH Last administered on 09/17/18at 11:25; Start 09/14/18 at 09:00; Stop 09/18/18 at 13:30; Status DC Morphine Sulfate (Morphine Sulfate) 4 mg PRN Q2HR PRN IV MODERATE PAIN, SEVERE PAIN Last administered on 09/18/18at 21:59; Start 09/13/18 at 21:15; Stop at 09:10; Status DC Barium Sulfate (E-Z-Hd) 680 gm 1X ONCE PO ; Start 09/14/18 at 08:00; Stop 09/14 at 08:01; Status DC Iohexol (Omnipaque 300 Mg/ml) 400 ml 1X ONCE PO Last administered on at 08:00; Start 09/14/18 at 08:00; Stop 09/14/18 at 08:01; Status DC Info (CONTRAST GIVEN -- Rx MONITORING) 1 each PRN DAILY PRN MC SEE COMMENTS; Start 09/14/18 at 08:00; Stop 09/16/18 at 07:59; Status DC Potassium Chloride/Water 100 ml @ 100 mls/hr Q1H IV ; Start 09/14/18 at 09:00; Stop 09/14/18 at 12:59; Status DC Methylprednisolone Sodium Succinate (SOLU-Medrol 125MG VIAL) 125 mg DAILY IV Last administered on 09/20/18at 09:01; Start 09/15/18 at 09:00; Stop 09/20/18 at 13:23; Status DC Info (Tpn Per Pharmacy) 1 each PRN DAILY PRN MC SEE COMMENTS Last administered on 09/14/18at 13:51; Start 09/14/18 at 13:30; Stop 09/14/18 at 14:27; Status DC Info (Tpn Per Pharmacy) 1 each PRN DAILY PRN MC SEE COMMENTS Last administered on 09/18/18at 09:54; Start 09/15/18 at 14:30; Stop 09/19/18 at 11:39; Status DC Amino Acids/ Glycerin/ Electrolytes 1,000 ml @ 80 mls/hr [id number] IV Last administered on 09/15/18at 03:32; Start 09/14/18 at 14:30; Stop 09/15/18 at 21:59 ; Status DC Cefazolin Sodium/ Dextrose 50 ml @ 100 mls/hr 1X PREOP PRN IV protocol Last administered on 09/14/18at 17:40; Start 09/15/18 at 06:00; Stop 09/15/18 at 18:00 ; Status DC Metronidazole 100 ml @ 100 mls/hr 1X PREOP PRN IV protocol; Start 09/15/18 at 06:00; Stop 09/15/18 at 18:00; Status DC Ondansetron HCl (Zofran) 4 mg PRN Q6HRS PRN IV NAUSEA/VOMITING; Start 09/14/18 at 16:00; Stop 09/15/18 at 01:45; Status DC Fentanyl Citrate (Fentanyl 2ml Vial) 25 mcg PRN Q5MIN PRN IV MILD PAIN; Start 09/14/18 at 16:00; Stop 09/15/18 at 01:40; Status DC Fentanyl Citrate (Fentanyl 2ml Vial) 50 mcg PRN Q5MIN PRN IV MODERATE TO SEVERE PAIN Last administered on 09/14/18at 20:27; Start 09/14/18 at 16:00; Stop 09/15/18 at 01:40; Status DC Morphine Sulfate (Morphine Sulfate) 1 mg PRN Q10MIN PRN IV SEVERE PAIN Last administered on 09/14/18at 21:51; Start 09/14/18 at 16:00; Stop 09/15/18 at 01:40 ; Status DC Ringer's Solution 1,000 ml @ 30 mls/hr Q24H IV Last administered on 09/14/18at 21:30; Start 09/14/18 at 15:52; Stop 09/15/18 at 01:40; Status DC Lidocaine HCl (Xylocaine-Mpf 1% 2ml Vial) 2 ml 1X PRN PRN ID IV START; Start at 16:00; Stop 09/15/18 at 15:59; Status DC Hydromorphone HCl (Dilaudid) 0.5 mg PRN Q10MIN PRN IV SEV PAIN, Second choice; Start 09/14/18 at 16:00; Stop 09/15/18 at 01:45; Status DC Prochlorperazine Edisylate (Compazine) 5 mg PACU PRN PRN IV NAUSEA, MRX1 Last administered on 09/14/18at 21:02; Start 09/14/18 at 16:00; Stop 09/15/18 at 01:40 ; Status DC Cefazolin Sodium/ Dextrose 50 ml @ As Directed STK-MED ONCE IV ; Start 09/14/18 at 16:08; Stop 09/14/18 at 16:09; Status DC Propofol 20 ml @ As Directed STK-MED ONCE IV ; Start 09/14/18 at 16:32; Stop 07/21 at 16:33; Status DC Dexamethasone Sodium Phosphate (Decadron) 20 mg STK-MED ONCE .ROUTE ; Start 07/21 at 16:32; Stop 09/14/18 at 16:33; Status DC Lidocaine HCl (Lidocaine Pf 2% Vial) 5 ml STK-MED ONCE .ROUTE ; Start 09/14/18 at 16:32; Stop 09/14/18 at 16:33; Status DC Ondansetron HCl (Zofran) 4 mg STK-MED ONCE .ROUTE ; Start 09/14/18 at 16:32; Stop 09/14/18 at 16:33; Status DC Succinylcholine Chloride (Anectine) 200 mg STK-MED ONCE .ROUTE ; Start 09/14/18 at 16:32; Stop 09/14/18 at 16:33; Status DC Rocuronium Huntley (Zemuron) 50 mg STK-MED ONCE .ROUTE ; Start 09/14/18 at 16:32 ; Stop 09/14/18 at 16:33; Status DC Fentanyl Citrate (Fentanyl 2ml Vial) 100 mcg STK-MED ONCE .ROUTE ; Start at 16:32; Stop 09/14/18 at 16:33; Status DC Bupivacaine HCl/ Epinephrine Bitart (Sensorcain-Mpf Epi 0.5%-1:[id number]) 30 ml STK -MED ONCE .ROUTE Last administered on 09/14/18at 17:57; Start 09/14/18 at 17:18 ; Stop 09/14/18 at 17:19; Status DC Cefazolin Sodium/ Dextrose 50 ml @ As Directed STK-MED ONCE IV ; Start 09/14/18 at 17:28; Stop 09/14/18 at 17:29; Status DC Lidocaine HCl (Glydo (Lidocaine) Jelly) 6 marcel STK-MED ONCE .ROUTE ; Start at 17:43; Stop 09/14/18 at 17:44; Status DC Hydrocortisone Sodium Succinate (Solu-CORTEF) 100 mg STK-MED ONCE .ROUTE ; Start 09/14/18 at 18:08; Stop 09/14/18 at 18:09; Status DC Phenylephrine HCl (Shaw-Synephrine Inj) 10 mg STK-MED ONCE .ROUTE ; Start at 18:11; Stop 09/14/18 at 18:12; Status DC Glycopyrrolate (Robinul) 1 mg STK-MED ONCE .ROUTE ; Start 09/14/18 at 19:05; Stop 09/14/18 at 19:06; Status DC Sevoflurane (Ultane) 60 ml STK-MED ONCE IH ; Start 09/14/18 at 19:23; Stop 09/14 at 19:24; Status DC Enoxaparin Sodium (Lovenox 40mg Syringe) 30 mg Q24H SQ ; Start 09/14/18 at 19:45 ; Status UNV Sodium Chloride (Normal Saline Flush) 3 ml QSHIFT PRN IV AFTER MEDS AND BLOOD DRAWS; Start 09/14/18 at 19:45 Hydromorphone HCl 30 ml @ 0 mls/hr CONT PRN PRN IV PER PROTOCOL Last administered on 09/14/18at 20:25; Start 09/14/18 at 19:45; Stop 09/15/18 at 08:34 ; Status DC Ondansetron HCl (Zofran) 4 mg PRN Q6HRS PRN IV NAUESA, 1ST CHOICE; Start at 19:45 Ringer's Solution 1,000 ml @ 75 mls/hr [id number] IV Last administered on at 21:00; Start 09/14/18 at 21:00; Stop 09/15/18 at 01:45; Status DC Lorazepam (Ativan) 0.5 mg PRN Q6HRS PRN IV ANXIETY / AGITATION; Start 09/14/18 at 22:15 Albumin Human 250 ml @ 83.3 mls/hr 1X ONCE IV Last administered on 09/15/18at 01:15; Start 09/15/18 at 01:00; Stop 09/15/18 at 04:00; Status DC Hydromorphone HCl (Dilaudid) 0.5 mg PRN Q3HRS PRN IV MILD PAIN; Start 09/15/18 at 08:30 Albumin Human 500 ml @ 125 mls/hr 1X ONCE IV Last administered on 09/15/18at 10:23; Start 09/15/18 at 09:00; Stop 09/15/18 at 12:59; Status DC Sodium Chloride 250 ml @ 500 mls/hr 1X ONCE IV Last administered on at 11:00; Start 09/15/18 at 11:00; Stop 09/15/18 at 11:29; Status DC Sodium Chloride 1,000 ml @ 100 mls/hr Q10H IV Last administered on 09/15/18at 11:30; Start 09/15/18 at 11:30; Stop 09/15/18 at 22:00; Status DC Sodium Chloride 1,000 ml @ 75 mls/hr [id number] IV Last administered on at 00:12; Start 09/15/18 at 22:00; Stop 09/17/18 at 12:12; Status DC Sodium Acetate 90 meq/Potassium Chloride 50 meq/ Potassium Phosphate 3.4 mmol/ Magnesium Sulfate 10 meq/ Calcium Gluconate 10 meq/ Multivitamins 10 ml/Chromium / Copper/Manganese/ Seleni/Zn 1 ml/ Total Parenteral Nutrition/Amino Acids/ Dextrose/ Fat Emulsion Intravenous 1,512 ml @ 63 mls/hr TPN CONT IV Last administered on 09/15/18at 21:43; Start 09/15/18 at 22:00; Stop 09/16/18 at 21:59 ; Status DC Lidocaine/Sodium Bicarbonate (Buffered Lidocaine 1%) 3 ml STK-MED ONCE .ROUTE ; Start 09/15/18 at 14:35; Stop 09/15/18 at 14:36; Status DC Heparin Sodium/ Sodium Chloride 500 ml @ As Directed STK-MED ONCE .ROUTE ; Start 09/15/18 at 14:35; Stop 09/15/18 at 14:36; Status DC Heparin Sodium/ Sodium Chloride 500 ml @ As Directed STK-MED ONCE .ROUTE ; Start 09/15/18 at 14:36; Stop 09/15/18 at 14:37; Status DC Heparin Sodium/ Sodium Chloride (HEPARIN for ARTERIAL LINE FLUSH) 1,000 unit 1X ONCE IART Last administered on 09/15/18at 15:15; Start 09/15/18 at 15:15; Stop 09/15/18 at 15:16; Status DC Lidocaine/Sodium Bicarbonate (Buffered Lidocaine 1%) 3 ml 1X ONCE IJ Last administered on 09/15/18at 15:15; Start 09/15/18 at 15:15; Stop 09/15/18 at 15:16 ; Status DC Potassium Phosphate 13.6 mmol/Dextrose 104.5333 ml @ 52.267 m... 1X ONCE IV Last administered on 09/16/18at 09:53; Start 09/16/18 at 10:00; Stop 09/16/18 at 11:59; Status DC Sodium Acetate 90 meq/Potassium Chloride 50 meq/ Potassium Phosphate 15 mmol/ Magnesium Sulfate 10 meq/Calcium Gluconate 10 meq/ Multivitamins 10 ml/Chromium / Copper/Manganese/ Seleni/Zn 1 ml/ Total Parenteral Nutrition/Amino Acids/ Dextrose/ Fat Emulsion Intravenous 1,512 ml @ 63 mls/hr TPN CONT IV Last administered on 09/16/18at 21:49; Start 09/16/18 at 22:00; Stop 09/17/18 at 21:59 ; Status DC Albuterol/ Ipratropium (Duoneb) 3 ml RTQID NEB ; Start 09/16/18 at 12:00; Stop 09/16/18 at 12:00; Status DC Sodium Chloride 1,000 ml @ 75 mls/hr [id number] IV Last administered on at 06:20; Start 09/17/18 at 13:00; Stop 09/19/18 at 11:39; Status DC Potassium Phosphate 13.6 mmol/Dextrose 104.5333 ml @ 52.267 m... ONCE ONCE IV Last administered on 09/17/18at 14:14; Start 09/17/18 at 13:00; Stop 09/17/18 at 14:59; Status DC Sodium Acetate 90 meq/Potassium Acetate 40 meq/ Potassium Phosphate 20.4 mmol/ Magnesium Sulfate 10 meq/ Calcium Gluconate 10 meq/ Multivitamins 10 ml/Chromium / Copper/Manganese/ Seleni/Zn 1 ml/ Total Parenteral Nutrition/Amino Acids/ Dextrose/ Fat Emulsion Intravenous 1,512 ml @ 63 mls/hr TPN CONT IV Last administered on 09/17/18at 23:14; Start 09/17/18 at 22:00; Stop 09/18/18 at 21:59 ; Status DC Sodium Acetate 90 meq/Potassium Acetate 40 meq/ Potassium Phosphate 20.4 mmol/ Magnesium Sulfate 10 meq/ Calcium Gluconate 10 meq/ Multivitamins 10 ml/Chromium / Copper/Manganese/ Seleni/Zn 1 ml/ Total Parenteral Nutrition/Amino Acids/ Dextrose/ Fat Emulsion Intravenous 1,512 ml @ 63 mls/hr TPN CONT IV Last administered on 09/18/18at 21:51; Start 09/18/18 at 22:00; Stop 09/19/18 at 11:39 ; Status DC Aspirin (Ecotrin) 325 mg DAILYWBKFT PO Last administered on 09/21/18at 08:33; Start 09/18/18 at 13:30 Acetaminophen/ Hydrocodone Bitart (Lortab 10/325) 1 tab PRN Q6HRS PRN PO PAIN Last administered on 09/21/18 08:35; Start 09/19/18 at 10:15 Levothyroxine Sodium (Synthroid) 88 mcg DAILY06 PO Last administered on 06:34; Start 09/19/18 at 15:30 Diltiazem HCl (Cardizem 24hr Cd) 120 mg DAILY PO Last administered on at 08:34; Start 09/19/18 at 12:00 Info (Tpn Per Pharmacy) 1 each PRN DAILY PRN MC SEE COMMENTS Last administered on 09/21/18at 12:23; Start 09/20/18 at 11:30 Sodium Acetate 90 meq/Potassium Acetate 40 meq/ Potassium Phosphate 20.4 mmol/ Magnesium Sulfate 10 meq/ Calcium Gluconate 10 meq/ Multivitamins 10 ml/Chromium / Copper/Manganese/ Seleni/Zn 1 ml/ Total Parenteral Nutrition/Amino Acids/ Dextrose/ Fat Emulsion Intravenous 1,512 ml @ 63 mls/hr TPN CONT IV Last administered on 09/20/18at 21:23; Start 09/20/18 at 22:00; Stop 09/21/18 at 21:59 Methylprednisolone Sodium Succinate (SOLU-Medrol 125MG VIAL) 60 mg DAILY IV ; Start 09/21/18 at 09:00; Stop 09/21/18 at 09:10; Status DC Insulin Human Lispro (HumaLOG) 0-5 UNITS TIDWMEALS SQ ; Start 09/21/18 at 08:00 ; Stop 09/21/18 at 09:08; Status DC Dextrose (Dextrose 50%-Water Syringe) 12.5 gm PRN Q15MIN PRN IV SEE COMMENTS; Start 09/21/18 at 00:00 Insulin Human Lispro (HumaLOG) 0-12 UNITS QIDACHS SQ ; Start 09/21/18 at 11:30 Prednisone (Prednisone) 40 mg DAILY PO Last administered on 09/21/18at 10:20; Start 09/21/18 at 10:00 Pantoprazole Sodium (Protonix) 40 mg DAILYAC PO ; Start 09/22/18 at 07:30 Sodium Acetate 90 meq/Potassium Acetate 40 meq/ Potassium Phosphate 20.4 mmol/ Magnesium Sulfate 10 meq/ Calcium Gluconate 10 meq/ Multivitamins 10 ml/Chromium / Copper/Manganese/ Seleni/Zn 1 ml/ Total Parenteral Nutrition/Amino Acids/ Dextrose/ Fat Emulsion Intravenous 1,512 ml @ 63 mls/hr TPN CONT IV ; Start at 22:00; Stop 09/22/18 at 21:59 Active Scripts Active Magnesium Chloride 70 Mg Tablet.dr 64 Mg PO DAILY 30 Days Synthroid (Levothyroxine Sodium) 88 Mcg Tablet 88 Mcg PO DAILY06 30 Days Prednisone 20 Mg Tablet 20 Mg PO DAILY 30 Days Budesonide 0.5 Mg/2 Ml Ampul.neb 0.5 Mg NEB RTBID 30 Days Diltiazem 24HR Cd (Diltiazem Hcl) 180 Mg Cap.er.24h 180 Mg PO DAILY 90 Days Prednisone (Prednisone) 10 Mg Tablet 40 Mg PO DAILY 30 Days Klor-Con 10 (Potassium Chloride) 10 Meq Tablet.er 1 Tab PO DAILY Lasix (Furosemide) 40 Mg Tablet 1 Tab PO DAILY Aspirin Ec (Aspirin) 81 Mg Tablet. 81 Mg PO DAILYWBKFT 30 Days Duoneb 0.5-3(2.5) Mg/3 Ml (Albuterol/Ipratropium) 3 Ml Ampul.neb 3 Ml NEB RTQID 30 Days Diltiazem 24HR Cd (Diltiazem Hcl) 120 Mg Cap.er.24h 120 Mg PO DAILY 30 Days Reported Hydrocodone-Apap 7.5-325 (Hydrocodone Bit/Acetaminophen) 1 Tab Tablet 1 Tab PO PRN Q6HRS PRN Prednisolone Sodium Phosphate (Prednisolone Sod Phosphate) 15 Mg/5 Ml Solution 15 Mg PO DAILY Omeprazole 40 Mg Capsule. 40 Mg PO DAILY Cartia Xt (Diltiazem Hcl) 120 Mg Cap.er.24h 120 Mg PO DAILY Wellbutrin Xl (Bupropion Hcl) 150 Mg Tab.er.24h 1 Tab PO DAILY Omeprazole 40 Mg Capsule. 1 Cap PO Vitals/I & O Vital Sign - Last 24 Hours 09/20/18 09/20/18 09/20/18 09/20/18 15:00 15:23 19:00 19:16 Temp 97.3 97.7 97.3 97.7 Pulse 63 71 Resp 18 18 B/P (MAP) 100/59 (73) 103/71 (82) Pulse Ox 95 97 100 98 O2 Delivery Room Air Nasal Cannula Room Air Nasal Cannula O2 Flow Rate 2.0 2.0 09/20/18 09/20/18 09/20/18 09/21/18 20:00 23:00 23:48 03:00 Temp 98.3 98.9 98.3 98.9 Pulse 72 72 Resp 18 24 18 B/P (MAP) 116/82 (93) 108/70 (83) Pulse Ox 100 94 O2 Delivery Nasal Cannula Room Air Room Air O2 Flow Rate 2.0 09/21/18 09/21/18 09/21/18 09/21/18 07:26 07:38 07:45 08:34 Temp 97.8 97.8 Pulse 67 67 Resp 18 B/P (MAP) 113/78 (90) 113/78 Pulse Ox 97 98 O2 Delivery Room Air Nasal Cannula Nasal Cannula O2 Flow Rate 2.0 3.0 09/21/18 09/21/18 09/21/18 09/21/18 08:35 09:40 11:00 11:33 Temp 97.4 97.4 Pulse 71 Resp 18 B/P (MAP) 124/80 (95) Pulse Ox 97 97 96 98 O2 Delivery Nasal Cannula Nasal Cannula Room Air Nasal Cannula O2 Flow Rate 3.0 3.0 2.0 Intake and Output 09/20/18 09/20/18 09/21/18 15:00 23:00 07:00 Intake Total 120 ml 388 ml Output Total 150 ml Balance 120 ml 238 ml Nutrition Consultation Dietary Evaluation: Recommendations by RD: Increase Calorie Intake, Protein supplementation, PPN/ TPN Comments: REC resume TPN per followin grams dextrose, 65 grams AA, 20 grams lipid added ensure enlive bid, pt on full liquids Expected Outcomes/Goals: TPN for nutrition needs s/p abdominal surgery until po intake tolerated w/ solid foods Interpretation of weight loss: >5% in 1 month Malnutrition Findings: Food and Nutrition Intake (Sev: <50% est energy req 5days Weight Status: Underweight LOURDES POLLOCK MD Sep 21, 2018 12:59
[2018-09-21] MEDS: INSULIN LISPRO 300 UNITS/3 ML INSULN.PEN. SQ SCH ×3 (13:18→21:00)
[2018-09-21 15:00] VITALS: BP 105/58
--- NOTE | 2018-09-21 18:15 | NUR ---
Patient doesn't want to eat yet, and doesn't want insulin at this time. Will continue to monitor.
[2018-09-21 19:00] VITALS: BP 121/75
--- NOTE | 2018-09-21 19:03 | NUR ---
Pending discharge from surgery signing off, informed night RN, Simone, to inform day shift of possible discharge for tomorrow 09/22 to [facility].
[2018-09-21] MEDS: SERTRALINE 25 MG TABLET. PO SCH (21:06)
[2018-09-21] MEDS ORDERED: AMINO ACID IV SCH ×10 (22:00)
[2018-09-21] MEDS ORDERED: TOTAL PARENTERAL NUTRITION IV SCH ×10 (22:00)
[2018-09-21] MEDS ORDERED: DEXTROSE 70% IV SCH ×10 (22:00)
[2018-09-21] MEDS ORDERED: [UNRECOGNIZED DRUG - OTHER] IV SCH ×10 (22:00)
[2018-09-21 23:00] VITALS: BP 113/71
[2018-09-22] MEDS: INSULIN LISPRO 300 UNITS/3 ML INSULN.PEN. SQ SCH ×5 (00:26→21:22)
[2018-09-22 03:10] VITALS: BP 113/80
[2018-09-22] MEDS: LEVOTHYROXINE 88 MCG TABLET PO SCH (05:48)
[2018-09-22 06:02] LABS: CALCIUM 8.6 mg/dL (8.5-10.1); CREATININE 0.7 mg/dL (0.7-1.3); GFR 109.6; MAGNESIUM 2.3 mg/dL (1.8-2.4); PHOSPHORUS 3.1 mg/dL (2.6-4.7); POTASSIUM 4.6 mmol/L (3.5-5.1)
[2018-09-22 07:00] VITALS: BP 142/77
[2018-09-22] MEDS: PANTOPRAZOLE 40 MG TABLET.DR. PO SCH (07:01)
[2018-09-22] MEDS: IPRATRPIUM/ALBUTEROL 0.5/2.5MG 3 ML NEBU. NEB SCH ×4 (07:54→19:32)
[2018-09-22] MEDS: BUDESONIDE 0.5 MG/2 ML NEBU. NEB SCH ×2 (07:54→19:32)
[2018-09-22] MEDS: predniSONE 20 MG TABLET PO SCH (08:44)
[2018-09-22] MEDS: ASPIRIN ENTERIC COATED 325 MG TABLET.DR. PO SCH (08:45)
[2018-09-22] MEDS: ONDANSETRON PF 4 MG/2 ML VIAL. IV PRN (08:47)
[2018-09-22] MEDS: ENOXAPARIN 40 MG/0.4 ML SYRINGE. SQ SCH (08:51)
[2018-09-22 09:59] LABS: HEMATOCRIT 33.7 % (39.0-53.0); HEMOGLOBIN 11.2 g/dL (13.0-17.5); RED BLOOD COUNT 3.52 x10^6/uL (4.30-5.70); RED CELL DISTRIBUTION WIDTH 14.1 % (11.5-14.5)
[2018-09-22 11:00] VITALS: BP 111/65
--- NOTE | 2018-09-22 11:16 | RAD ---
ARAM, 09/22/2018: HISTORY: Evaluate ileus Comparison is made to a study from 09/18/2018. The NG tube is no longer visible. Surgical skin clips overlie the lower abdomen and pelvis. Some of the previously noted contrast in the right colon has passed into the left colon and rectosigmoid. The colon is not dilated. Mild gaseous distention of several small bowel loops is now evident. IMPRESSION: 1. Progression of contrast from the right colon distally since 09/18/2018. 2. Mild gaseous distention of small bowel loops may reflect a postoperative ileus although partial obstruction cannot be excluded. Electronically signed by: Paulo Sanchez MD (09/22/2018 11:13 AM) [facility]
[2018-09-22] MEDS: TPN PER PHARMACY MC PRN (11:26)
--- NOTE | 2018-09-22 11:26 | NUR ---
Pharmacy TPN Dosing Note S: JOHN ROBBINS is a 78 year old M Currently receiving Central Continuous TPN started 09/15/18 B:Pertinent PMH: SBO Height: 5 feet, 10 inches Weight: 60.137316 kg Current diet: npo LABS: Sodium: 136 Potassium: 4.6 Chloride: 98 Calcium: 8.6 Corrected Calcium: 10.04 Magnesium: 2.3 CO2: 33 SCr: 0.7 Glucose: 287-400 Albumin: 2.2 AST: 27 ALT: 38 TPN FORMULA: TPN TYPE: Central Continuous AMINO ACIDS: 65 gm DEXTROSE: 225 gm LIPIDS: 20 gm SODIUM CHLORIDE: mEq SODIUM ACETATE: 90 mEq SODIUM PHOSPHATE: mmol POTASSIUM CHLORIDE: 50 mEq POTASSIUM ACETATE: 40 mEq POTASSIUM PHOSPHATE: 20.4 mmol MAGNESIUM: 10 mEq CALCIUM: 10 mEq INSULIN: units MULTIPLE VITAMIN: 10 ml TRACE ELEMENTS: 1 ml(s) TPN PLAN: Labs mostly WNL/stable except blood glucose with all values out of range. Pt has sliding scale. notes that SSI has been increased and steroids DC'ed. Would consider placing insulin in TPN but pt likely to transfer with DC of TPN tomorrow. No changes and no labs tomorrow. R: Continue TPN ABOVE. Will monitor electrolytes, glucose, and tolerance to TPN. NATASHA MCNAMARA [facility], 09/22/18 1122
--- NOTE | 2018-09-22 11:46 | PDOC ---
PROGRESS NOTES Subjective Subjective Patient complains of increasing nausea and abdominal pain. Patient having poor by mouth intake and is no longer passing gas and has not had a bowel movement for 48 hours. Objective Objective Vital Signs Date Time Temp Pulse Resp B/P (MAP) Pulse Ox O2 Delivery O2 Flow Rate FiO2 09/22/18 11:00 97.7 75 18 111/65 (80) 98 Room Air 97.7 09/22/18 08:09 2.0 Intake and Output 09/22/18 07:00 Intake Total 220 ml Output Total 500 ml Balance -280 ml Intake Oral 220 ml Output Urine Total 500 ml # Voids 1 # Bowel Movements 1 Physical Exam Abdomen: Other (hypoactive bowel sounds moderate distention moderate tenderness without rebound or guarding.) Heart: Regular rate Extremities: No edema General: Alert Lungs: Other (coarse crackles in bases chronically.) Assessment Assessment Problems Medical Problems: (1) Generalized weakness Status: Acute Recurrent ileus Small bowel obstruction status post open reduction S/P open lap lysis of adhesion and SBO take down POD #8 Severe Protein Malnutrition Debilitation PAST MEDICAL HISTORY: Significant for: 1. Pulmonary fibrosis. 2. COPD. 3. SVT. 4. Hypertension. 5. Osteoarthritis. 6. Gastroesophageal reflux disease, status post dilatation of stricture. 7. Hypothyroidism. 8. BPH. 9. [id number]-ayfbbsk diastolic congestive heart failure. 10. Severe protein malnutrition. 11. History of prostate cancer. 12. History of hepatitis C. 13. Major depression. Plan Plan of Care Proceed back to nothing by mouth status. Await surgical recommendations per Obtain KUB and upright. Follow CBC and electrolytes. Comment Review of Relevant I have reviewed the following items sherine (where applicable) has been applied. Labs Laboratory Tests Test 09/20/18 23:04 09/21/18 07:16 09/21/18 12:14 09/21/18 18:11 Glucose (Fingerstick) 343 mg/dL (70-99) 360 mg/dL (70-99) 396 mg/dL (70-99) 308 mg/dL (70-99) Test 09/22/18 00:16 09/22/18 05:20 09/22/18 05:52 09/22/18 08:48 Glucose (Fingerstick) 400 mg/dL (70-99) 311 mg/dL (70-99) 322 mg/dL (70-99) White Blood Count 13.0 x10^3/uL (4.0-11.0) Red Blood Count 3.52 x10^6/uL (4.30-5.70) Hemoglobin 11.2 g/dL (13.0-17.5) Hematocrit 33.7 % (39.0-53.0) Mean Corpuscular Volume 96 fL (79-100) Mean Corpuscular Hemoglobin 32 pg (25-35) Mean Corpuscular Hemoglobin Concent 33 g/dL (31-37) Red Cell Distribution Width 14.1 % (11.5-14.5) Platelet Count 218 x10^3/uL (140-400) Sodium Level 136 mmol/L (136-145) Potassium Level 4.6 mmol/L (3.5-5.1) Chloride Level 98 mmol/L (98-107) Carbon Dioxide Level 33 mmol/L (21-32) Anion Gap 5 (6-14) Blood Urea Nitrogen 28 mg/dL (8-26) Creatinine 0.7 mg/dL (0.7-1.3) Estimated GFR (Cockcroft-Gault) 109.6 Glucose Level 287 mg/dL (70-99) Calcium Level 8.6 mg/dL (8.5-10.1) Phosphorus Level 3.1 mg/dL (2.6-4.7) Magnesium Level 2.3 mg/dL (1.8-2.4) Test 09/22/18 10:39 Glucose (Fingerstick) 334 mg/dL (70-99) Laboratory Tests Test 09/21/18 12:14 09/21/18 18:11 09/22/18 00:16 09/22/18 05:20 Glucose (Fingerstick) 396 mg/dL (70-99) 308 mg/dL (70-99) 400 mg/dL (70-99) White Blood Count 13.0 x10^3/uL (4.0-11.0) Red Blood Count 3.52 x10^6/uL (4.30-5.70) Hemoglobin 11.2 g/dL (13.0-17.5) Hematocrit 33.7 % (39.0-53.0) Mean Corpuscular Volume 96 fL (79-100) Mean Corpuscular Hemoglobin 32 pg (25-35) Mean Corpuscular Hemoglobin Concent 33 g/dL (31-37) Red Cell Distribution Width 14.1 % (11.5-14.5) Platelet Count 218 x10^3/uL (140-400) Sodium Level 136 mmol/L (136-145) Potassium Level 4.6 mmol/L (3.5-5.1) Chloride Level 98 mmol/L (98-107) Carbon Dioxide Level 33 mmol/L (21-32) Anion Gap 5 (6-14) Blood Urea Nitrogen 28 mg/dL (8-26) Creatinine 0.7 mg/dL (0.7-1.3) Estimated GFR (Cockcroft-Gault) 109.6 Glucose Level 287 mg/dL (70-99) Calcium Level 8.6 mg/dL (8.5-10.1) Phosphorus Level 3.1 mg/dL (2.6-4.7) Magnesium Level 2.3 mg/dL (1.8-2.4) Test 09/22/18 05:52 09/22/18 08:48 09/22/18 10:39 Glucose (Fingerstick) 311 mg/dL (70-99) 322 mg/dL (70-99) 334 mg/dL (70-99) Medications Current Medications Famotidine (Pepcid Vial) 20 mg 1X ONCE IVP Last administered on 09/12/18 18: 07; Start 09/12/18 at 17:45; Stop 09/12/18 at 17:46; Status DC Ondansetron HCl (Zofran) 4 mg 1X ONCE IV Last administered on 09/12/18 18:07 ; Start 09/12/18 at 17:45; Stop 09/12/18 at 17:46; Status DC Iohexol (Omnipaque 300 Mg/ml) 75 ml 1X ONCE IV Last administered on 09/12/18at 18:35; Start 09/12/18 at 18:30; Stop 09/12/18 at 18:34; Status DC Info (CONTRAST GIVEN -- Rx MONITORING) 1 each PRN DAILY PRN MC SEE COMMENTS; Start 09/12/18 at 18:45; Stop 09/14/18 at 18:44; Status DC Fentanyl Citrate (Fentanyl 2ml Vial) 50 mcg 1X ONCE IV Last administered on 05/21at 20:21; Start 09/12/18 at 20:00; Stop 09/12/18 at 20:01; Status DC Ondansetron HCl (Zofran) 4 mg PRN Q8HRS PRN IV NAUSEA/VOMITING; Start 09/12/18 at 20:30; Stop 09/13/18 at 20:29; Status DC Morphine Sulfate (Morphine Sulfate) 4 mg PRN Q2HR PRN IV PAIN Last administered on 09/13/18at 10:20; Start 09/12/18 at 20:30; Stop 09/13/18 at 20:29 ; Status DC Metronidazole 100 ml @ 100 mls/hr Q8HRS IV Last administered on 09/20/18 06: 30; Start 09/12/18 at 22:00; Stop 09/20/18 at 10:42; Status DC Ciprofloxacin/ Dextrose 200 ml @ 200 mls/hr 1X ONCE IV Last administered on 22:51; Start 09/12/18 at 20:30; Stop 09/12/18 at 21:29; Status DC Sodium Chloride 1,000 ml @ 75 mls/hr 1X ONCE IV Last administered on at 22:51; Start 09/12/18 at 20:30; Stop 09/13/18 at 09:49; Status DC Budesonide (Pulmicort) 0.5 mg RTBID NEB Last administered on 09/22/18at 07:54; Start 09/13/18 at 09:30 Albuterol/ Ipratropium (Duoneb) 3 ml RTQID NEB Last administered on 09/22/18at 07:54; Start 09/13/18 at 09:30 Methylprednisolone Sodium Succinate (SOLU-Medrol 40MG VIAL) 20 mg DAILY IV Last administered on 09/13/18 10:21; Start 09/13/18 at 10:00; Stop 09/14/18 at 12:55; Status DC Pantoprazole Sodium (PROTONIX VIAL for IV PUSH) 40 mg DAILYAC IVP Last administered on 09/21/18 06:34; Start 09/13/18 at 10:00; Stop 09/21/18 at 09:13 ; Status DC Enoxaparin Sodium (Lovenox 40mg Syringe) 40 mg Q24H SQ Last administered on 2/ 20/19at 08:51; Start 09/13/18 at 10:00 Metoprolol Tartrate (Lopressor Vial) 5 mg Q6HRS IVP Last administered on at 06:41; Start 09/13/18 at 14:00; Stop 09/19/18 at 11:39; Status DC Potassium Chloride/Water 100 ml @ 100 mls/hr Q1H IV Last administered on at 17:10; Start 09/13/18 at 14:00; Stop 09/13/18 at 17:59; Status DC Throat Lozenges (Chloraseptic) 1 spray PRN Q2HR PRN PO SORE THROAT, 2nd choice Last administered on 09/14/18at 13:47; Start 09/13/18 at 16:45 Throat Lozenges (Cepacol Sore Throat Lozenge) 1 deniz PRN Q2HRS PRN PO SORE THROAT, 1st choice Last administered on 09/14/18at 13:46; Start 09/13/18 at 16:45 Aspirin (Aspirin) 300 mg DAILY RI Last administered on 09/17/18at 11:25; Start 09/14/18 at 09:00; Stop 09/18/18 at 13:30; Status DC Morphine Sulfate (Morphine Sulfate) 4 mg PRN Q2HR PRN IV MODERATE PAIN, SEVERE PAIN Last administered on 09/18/18at 21:59; Start 09/13/18 at 21:15; Stop at 09:10; Status DC Barium Sulfate (E-Z-Hd) 680 gm 1X ONCE PO ; Start 09/14/18 at 08:00; Stop 09/14 at 08:01; Status DC Iohexol (Omnipaque 300 Mg/ml) 400 ml 1X ONCE PO Last administered on at 08:00; Start 09/14/18 at 08:00; Stop 09/14/18 at 08:01; Status DC Info (CONTRAST GIVEN -- Rx MONITORING) 1 each PRN DAILY PRN MC SEE COMMENTS; Start 09/14/18 at 08:00; Stop 09/16/18 at 07:59; Status DC Potassium Chloride/Water 100 ml @ 100 mls/hr Q1H IV ; Start 09/14/18 at 09:00; Stop 09/14/18 at 12:59; Status DC Methylprednisolone Sodium Succinate (SOLU-Medrol 125MG VIAL) 125 mg DAILY IV Last administered on 09/20/18 09:01; Start 09/15/18 at 09:00; Stop 09/20/18 at 13:23; Status DC Info (Tpn Per Pharmacy) 1 each PRN DAILY PRN MC SEE COMMENTS Last administered on 09/14/18at 13:51; Start 09/14/18 at 13:30; Stop 09/14/18 at 14:27; Status DC Info (Tpn Per Pharmacy) 1 each PRN DAILY PRN MC SEE COMMENTS Last administered on 09/18/18at 09:54; Start 09/15/18 at 14:30; Stop 09/19/18 at 11:39; Status DC Amino Acids/ Glycerin/ Electrolytes 1,000 ml @ 80 mls/hr [id number] IV Last administered on 09/15/18at 03:32; Start 09/14/18 at 14:30; Stop 09/15/18 at 21:59 ; Status DC Cefazolin Sodium/ Dextrose 50 ml @ 100 mls/hr 1X PREOP PRN IV protocol Last administered on 09/14/18at 17:40; Start 09/15/18 at 06:00; Stop 09/15/18 at 18:00 ; Status DC Metronidazole 100 ml @ 100 mls/hr 1X PREOP PRN IV protocol; Start 09/15/18 at 06:00; Stop 09/15/18 at 18:00; Status DC Ondansetron HCl (Zofran) 4 mg PRN Q6HRS PRN IV NAUSEA/VOMITING; Start 09/14/18 at 16:00; Stop 09/15/18 at 01:45; Status DC Fentanyl Citrate (Fentanyl 2ml Vial) 25 mcg PRN Q5MIN PRN IV MILD PAIN; Start 09/14/18 at 16:00; Stop 09/15/18 at 01:40; Status DC Fentanyl Citrate (Fentanyl 2ml Vial) 50 mcg PRN Q5MIN PRN IV MODERATE TO SEVERE PAIN Last administered on 09/14/18at 20:27; Start 09/14/18 at 16:00; Stop 09/15/18 at 01:40; Status DC Morphine Sulfate (Morphine Sulfate) 1 mg PRN Q10MIN PRN IV SEVERE PAIN Last administered on 09/14/18at 21:51; Start 09/14/18 at 16:00; Stop 09/15/18 at 01:40 ; Status DC Ringer's Solution 1,000 ml @ 30 mls/hr Q24H IV Last administered on 09/14/18at 21:30; Start 09/14/18 at 15:52; Stop 09/15/18 at 01:40; Status DC Lidocaine HCl (Xylocaine-Mpf 1% 2ml Vial) 2 ml 1X PRN PRN ID IV START; Start at 16:00; Stop 09/15/18 at 15:59; Status DC Hydromorphone HCl (Dilaudid) 0.5 mg PRN Q10MIN PRN IV SEV PAIN, Second choice; Start 09/14/18 at 16:00; Stop 09/15/18 at 01:45; Status DC Prochlorperazine Edisylate (Compazine) 5 mg PACU PRN PRN IV NAUSEA, MRX1 Last administered on 09/14/18at 21:02; Start 09/14/18 at 16:00; Stop 09/15/18 at 01:40 ; Status DC Cefazolin Sodium/ Dextrose 50 ml @ As Directed STK-MED ONCE IV ; Start 09/14/18 at 16:08; Stop 09/14/18 at 16:09; Status DC Propofol 20 ml @ As Directed STK-MED ONCE IV ; Start 09/14/18 at 16:32; Stop 07/21 at 16:33; Status DC Dexamethasone Sodium Phosphate (Decadron) 20 mg STK-MED ONCE .ROUTE ; Start 07/21 at 16:32; Stop 09/14/18 at 16:33; Status DC Lidocaine HCl (Lidocaine Pf 2% Vial) 5 ml STK-MED ONCE .ROUTE ; Start 09/14/18 at 16:32; Stop 09/14/18 at 16:33; Status DC Ondansetron HCl (Zofran) 4 mg STK-MED ONCE .ROUTE ; Start 09/14/18 at 16:32; Stop 09/14/18 at 16:33; Status DC Succinylcholine Chloride (Anectine) 200 mg STK-MED ONCE .ROUTE ; Start 09/14/18 at 16:32; Stop 09/14/18 at 16:33; Status DC Rocuronium [place] (Zemuron) 50 mg STK-MED ONCE .ROUTE ; Start 09/14/18 at 16:32 ; Stop 09/14/18 at 16:33; Status DC Fentanyl Citrate (Fentanyl 2ml Vial) 100 mcg STK-MED ONCE .ROUTE ; Start at 16:32; Stop 09/14/18 at 16:33; Status DC Bupivacaine HCl/ Epinephrine Bitart (Sensorcain-Mpf Epi 0.5%-[id number]) 30 ml STK -MED ONCE .ROUTE Last administered on 09/14/18at 17:57; Start 09/14/18 at 17:18 ; Stop 09/14/18 at 17:19; Status DC Cefazolin Sodium/ Dextrose 50 ml @ As Directed STK-MED ONCE IV ; Start 09/14/18 at 17:28; Stop 09/14/18 at 17:29; Status DC Lidocaine HCl (Glydo (Lidocaine) Jelly) 6 marcel STK-MED ONCE .ROUTE ; Start at 17:43; Stop 09/14/18 at 17:44; Status DC Hydrocortisone Sodium Succinate (Solu-CORTEF) 100 mg STK-MED ONCE .ROUTE ; Start 09/14/18 at 18:08; Stop 09/14/18 at 18:09; Status DC Phenylephrine HCl (Shaw-Synephrine Inj) 10 mg STK-MED ONCE .ROUTE ; Start at 18:11; Stop 09/14/18 at 18:12; Status DC Glycopyrrolate (Robinul) 1 mg STK-MED ONCE .ROUTE ; Start 09/14/18 at 19:05; Stop 09/14/18 at 19:06; Status DC Sevoflurane (Ultane) 60 ml STK-MED ONCE IH ; Start 09/14/18 at 19:23; Stop 09/14 at 19:24; Status DC Enoxaparin Sodium (Lovenox 40mg Syringe) 30 mg Q24H SQ ; Start 09/14/18 at 19:45 ; Status UNV Sodium Chloride (Normal Saline Flush) 3 ml QSHIFT PRN IV AFTER MEDS AND BLOOD DRAWS; Start 09/14/18 at 19:45 Hydromorphone HCl 30 ml @ 0 mls/hr CONT PRN PRN IV PER PROTOCOL Last administered on 09/14/18at 20:25; Start 09/14/18 at 19:45; Stop 09/15/18 at 08:34 ; Status DC Ondansetron HCl (Zofran) 4 mg PRN Q6HRS PRN IV NAUESA, 1ST CHOICE Last administered on 09/22/18at 08:47; Start 09/14/18 at 19:45 Ringer's Solution 1,000 ml @ 75 mls/hr [id number] IV Last administered on at 21:00; Start 09/14/18 at 21:00; Stop 09/15/18 at 01:45; Status DC Lorazepam (Ativan) 0.5 mg PRN Q6HRS PRN IV ANXIETY / AGITATION; Start 09/14/18 at 22:15 Albumin Human 250 ml @ 83.3 mls/hr 1X ONCE IV Last administered on 09/15/18at 01:15; Start 09/15/18 at 01:00; Stop 09/15/18 at 04:00; Status DC Hydromorphone HCl (Dilaudid) 0.5 mg PRN Q3HRS PRN IV MILD PAIN; Start 09/15/18 at 08:30 Albumin Human 500 ml @ 125 mls/hr 1X ONCE IV Last administered on 09/15/18at 10:23; Start 09/15/18 at 09:00; Stop 09/15/18 at 12:59; Status DC Sodium Chloride 250 ml @ 500 mls/hr 1X ONCE IV Last administered on at 11:00; Start 09/15/18 at 11:00; Stop 09/15/18 at 11:29; Status DC Sodium Chloride 1,000 ml @ 100 mls/hr Q10H IV Last administered on 09/15/18at 11:30; Start 09/15/18 at 11:30; Stop 09/15/18 at 22:00; Status DC Sodium Chloride 1,000 ml @ 75 mls/hr [id number] IV Last administered on at 00:12; Start 09/15/18 at 22:00; Stop 09/17/18 at 12:12; Status DC Sodium Acetate 90 meq/Potassium Chloride 50 meq/ Potassium Phosphate 3.4 mmol/ Magnesium Sulfate 10 meq/ Calcium Gluconate 10 meq/ Multivitamins 10 ml/Chromium / Copper/Manganese/ Seleni/Zn 1 ml/ Total Parenteral Nutrition/Amino Acids/ Dextrose/ Fat Emulsion Intravenous 1,512 ml @ 63 mls/hr TPN CONT IV Last administered on 09/15/18at 21:43; Start 09/15/18 at 22:00; Stop 09/16/18 at 21:59 ; Status DC Lidocaine/Sodium Bicarbonate (Buffered Lidocaine 1%) 3 ml STK-MED ONCE .ROUTE ; Start 09/15/18 at 14:35; Stop 09/15/18 at 14:36; Status DC Heparin Sodium/ Sodium Chloride 500 ml @ As Directed STK-MED ONCE .ROUTE ; Start 09/15/18 at 14:35; Stop 09/15/18 at 14:36; Status DC Heparin Sodium/ Sodium Chloride 500 ml @ As Directed STK-MED ONCE .ROUTE ; Start 09/15/18 at 14:36; Stop 09/15/18 at 14:37; Status DC Heparin Sodium/ Sodium Chloride (HEPARIN for ARTERIAL LINE FLUSH) 1,000 unit 1X ONCE IART Last administered on 09/15/18at 15:15; Start 09/15/18 at 15:15; Stop 09/15/18 at 15:16; Status DC Lidocaine/Sodium Bicarbonate (Buffered Lidocaine 1%) 3 ml 1X ONCE IJ Last administered on 09/15/18at 15:15; Start 09/15/18 at 15:15; Stop 09/15/18 at 15:16 ; Status DC Potassium Phosphate 13.6 mmol/Dextrose 104.5333 ml @ 52.267 m... 1X ONCE IV Last administered on 09/16/18at 09:53; Start 09/16/18 at 10:00; Stop 09/16/18 at 11:59; Status DC Sodium Acetate 90 meq/Potassium Chloride 50 meq/ Potassium Phosphate 15 mmol/ Magnesium Sulfate 10 meq/Calcium Gluconate 10 meq/ Multivitamins 10 ml/Chromium / Copper/Manganese/ Seleni/Zn 1 ml/ Total Parenteral Nutrition/Amino Acids/ Dextrose/ Fat Emulsion Intravenous 1,512 ml @ 63 mls/hr TPN CONT IV Last administered on 09/16/18at 21:49; Start 09/16/18 at 22:00; Stop 09/17/18 at 21:59 ; Status DC Albuterol/ Ipratropium (Duoneb) 3 ml RTQID NEB ; Start 09/16/18 at 12:00; Stop 09/16/18 at 12:00; Status DC Sodium Chloride 1,000 ml @ 75 mls/hr [id number] IV Last administered on at 06:20; Start 09/17/18 at 13:00; Stop 09/19/18 at 11:39; Status DC Potassium Phosphate 13.6 mmol/Dextrose 104.5333 ml @ 52.267 m... ONCE ONCE IV Last administered on 09/17/18at 14:14; Start 09/17/18 at 13:00; Stop 09/17/18 at 14:59; Status DC Sodium Acetate 90 meq/Potassium Acetate 40 meq/ Potassium Phosphate 20.4 mmol/ Magnesium Sulfate 10 meq/ Calcium Gluconate 10 meq/ Multivitamins 10 ml/Chromium / Copper/Manganese/ Seleni/Zn 1 ml/ Total Parenteral Nutrition/Amino Acids/ Dextrose/ Fat Emulsion Intravenous 1,512 ml @ 63 mls/hr TPN CONT IV Last administered on 09/17/18at 23:14; Start 09/17/18 at 22:00; Stop 09/18/18 at 21:59 ; Status DC Sodium Acetate 90 meq/Potassium Acetate 40 meq/ Potassium Phosphate 20.4 mmol/ Magnesium Sulfate 10 meq/ Calcium Gluconate 10 meq/ Multivitamins 10 ml/Chromium / Copper/Manganese/ Seleni/Zn 1 ml/ Total Parenteral Nutrition/Amino Acids/ Dextrose/ Fat Emulsion Intravenous 1,512 ml @ 63 mls/hr TPN CONT IV Last administered on 09/18/18at 21:51; Start 09/18/18 at 22:00; Stop 09/19/18 at 11:39 ; Status DC Aspirin (Ecotrin) 325 mg DAILYWBKFT PO Last administered on 09/22/18at 08:45; Start 09/18/18 at 13:30 Acetaminophen/ Hydrocodone Bitart (Lortab 10/325) 1 tab PRN Q6HRS PRN PO PAIN Last administered on 09/21/18at 21:06; Start 09/19/18 at 10:15 Levothyroxine Sodium (Synthroid) 88 mcg DAILY06 PO Last administered on at 05:48; Start 09/19/18 at 15:30 Diltiazem HCl (Cardizem 24hr Cd) 120 mg DAILY PO Last administered on at 08:45; Start 09/19/18 at 12:00 Info (Tpn Per Pharmacy) 1 each PRN DAILY PRN MC SEE COMMENTS Last administered on 09/22/18at 11:26; Start 09/20/18 at 11:30 Sodium Acetate 90 meq/Potassium Acetate 40 meq/ Potassium Phosphate 20.4 mmol/ Magnesium Sulfate 10 meq/ Calcium Gluconate 10 meq/ Multivitamins 10 ml/Chromium / Copper/Manganese/ Seleni/Zn 1 ml/ Total Parenteral Nutrition/Amino Acids/ Dextrose/ Fat Emulsion Intravenous 1,512 ml @ 63 mls/hr TPN CONT IV Last administered on 09/20/18at 21:23; Start 09/20/18 at 22:00; Stop 09/21/18 at 21:59 ; Status DC Methylprednisolone Sodium Succinate (SOLU-Medrol 125MG VIAL) 60 mg DAILY IV ; Start 09/21/18 at 09:00; Stop 09/21/18 at 09:10; Status DC Insulin Human Lispro (HumaLOG) 0-5 UNITS TIDWMEALS SQ ; Start 09/21/18 at 08:00 ; Stop 09/21/18 at 09:08; Status DC Dextrose (Dextrose 50%-Water Syringe) 12.5 gm PRN Q15MIN PRN IV SEE COMMENTS; Start 09/21/18 at 00:00 Insulin Human Lispro (HumaLOG) 0-12 UNITS QIDACHS SQ Last administered on at 08:54; Start 09/21/18 at 11:30 Prednisone (Prednisone) 40 mg DAILY PO Last administered on 09/22/18at 08:44; Start 09/21/18 at 10:00 Pantoprazole Sodium (Protonix) 40 mg DAILYAC PO Last administered on 09/22/18at 07:01; Start 09/22/18 at 07:30 Sodium Acetate 90 meq/Potassium Acetate 40 meq/ Potassium Phosphate 20.4 mmol/ Magnesium Sulfate 10 meq/ Calcium Gluconate 10 meq/ Multivitamins 10 ml/Chromium / Copper/Manganese/ Seleni/Zn 1 ml/ Total Parenteral Nutrition/Amino Acids/ Dextrose/ Fat Emulsion Intravenous 1,512 ml @ 63 mls/hr TPN CONT IV Last administered on 09/21/18at 21:07; Start 09/21/18 at 22:00; Stop 09/22/18 at 21:59 Sertraline HCl (Zoloft) 25 mg QHS PO Last administered on 09/21/18at 21:06; Start 09/21/18 at 21:00 Sodium Acetate 90 meq/Potassium Acetate 40 meq/ Potassium Phosphate 20.4 mmol/ Magnesium Sulfate 10 meq/ Calcium Gluconate 10 meq/ Multivitamins 10 ml/Chromium / Copper/Manganese/ Seleni/Zn 1 ml/ Total Parenteral Nutrition/Amino Acids/ Dextrose/ Fat Emulsion Intravenous 1,512 ml @ 63 mls/hr TPN CONT IV ; Start at 22:00; Stop 09/23/18 at 21:59 Active Scripts Active Magnesium Chloride 70 Mg Tablet. 64 Mg PO DAILY 30 Days Synthroid (Levothyroxine Sodium) 88 Mcg Tablet 88 Mcg PO DAILY06 30 Days Prednisone 20 Mg Tablet 20 Mg PO DAILY 30 Days Budesonide 0.5 Mg/2 Ml Ampul.neb 0.5 Mg NEB RTBID 30 Days Diltiazem 24HR Cd (Diltiazem Hcl) 180 Mg Cap.er.24h 180 Mg PO DAILY 90 Days Prednisone (Prednisone) 10 Mg Tablet 40 Mg PO DAILY 30 Days Klor-Con 10 (Potassium Chloride) 10 Meq Tablet.er 1 Tab PO DAILY Lasix (Furosemide) 40 Mg Tablet 1 Tab PO DAILY Aspirin Ec (Aspirin) 81 Mg Tablet. 81 Mg PO DAILYWBKFT 30 Days Duoneb 0.5-3(2.5) Mg/3 Ml (Albuterol/Ipratropium) 3 Ml Ampul.neb 3 Ml NEB RTQID 30 Days Diltiazem 24HR Cd (Diltiazem Hcl) 120 Mg Cap.er.24h 120 Mg PO DAILY 30 Days Reported Hydrocodone-Apap 7.5-325 (Hydrocodone Bit/Acetaminophen) 1 Tab Tablet 1 Tab PO PRN Q6HRS PRN Prednisolone Sodium Phosphate (Prednisolone Sod Phosphate) 15 Mg/5 Ml Solution 15 Mg PO DAILY Omeprazole 40 Mg Capsule. 40 Mg PO DAILY Cartia Xt (Diltiazem Hcl) 120 Mg Cap.er.24h 120 Mg PO DAILY Wellbutrin Xl (Bupropion Hcl) 150 Mg Tab.er.24h 1 Tab PO DAILY Omeprazole 40 Mg Capsule.dr 1 Cap PO Vitals/I & O Vital Sign - Last 24 Hours 2/19/19 2/19/19 2/19/19 2/19/19 15:00 15:21 15:35 19:00 Temp 97.7 98.0 97.7 98.0 Pulse 62 53 Resp 18 18 B/P (MAP) 105/58 (74) 121/75 (90) Pulse Ox 99 98 93 O2 Delivery Room Air Nasal Cannula Nasal Cannula Room Air O2 Flow Rate 2.0 2.0 09/21/18 09/21/18 09/21/18 09/21/18 20:00 20:06 21:06 22:06 Pulse Ox 96 96 96 O2 Delivery Nasal Cannula Nasal Cannula Nasal Cannula Nasal Cannula O2 Flow Rate 2.0 2.0 2.0 2.0 09/21/18 09/22/18 09/22/18 09/22/18 23:00 03:10 07:00 07:54 Temp 97.8 97.3 97.5 97.8 97.3 97.5 Pulse 92 71 98 Resp 18 16 18 B/P (MAP) 113/71 (85) 113/80 (91) 142/77 (98) Pulse Ox 91 96 93 97 O2 Delivery Room Air Nasal Cannula Room Air Nasal Cannula O2 Flow Rate 2.0 2.0 09/22/18 09/22/18 09/22/18 08:09 08:45 11:00 Temp 97.7 97.7 Pulse 98 75 Resp 18 B/P (MAP) 142/77 111/65 (80) Pulse Ox 98 O2 Delivery Nasal Cannula Room Air O2 Flow Rate 2.0 Intake and Output 09/21/18 09/21/18 09/22/18 15:00 23:00 07:00 Intake Total 120 ml 100 ml Output Total 150 ml 350 ml Balance -30 ml -250 ml Nutrition Consultation Dietary Evaluation: Recommendations by RD: Increase Calorie Intake, Protein supplementation, PPN/ TPN Comments: REC resume TPN per followin grams dextrose, 65 grams AA, 20 grams lipid added ensure enlive bid, pt on full liquids Expected Outcomes/Goals: TPN for nutrition needs s/p abdominal surgery until po intake tolerated w/ solid foods Interpretation of weight loss: >5% in 1 month Malnutrition Findings: Food and Nutrition Intake (Sev: <50% est energy req 5days Weight Status: Underweight LOURDES POLLOCK MD Sep 22, 2018 11:46
--- NOTE | 2018-09-22 11:59 | PDOC ---
PULMONARY PROGRESS NOTES Subjective no soa No bm 48 hrs Vitals Vital Signs Date Time Temp Pulse Resp B/P (MAP) Pulse Ox O2 Delivery O2 Flow Rate FiO2 09/22/18 11:00 97.7 75 18 111/65 (80) 98 Room Air 97.7 09/22/18 08:09 2.0 ROS: No Chest Pain General: Alert, No acute distress HEENT: Other (nc at perrl) Lungs: Crackles (BASES) Cardiovascular: S1, S2 Abdomen: Soft, Non-tender Neuro Exam: Alert, Oriented Extremities: No Edema, Other Skin: Warm Labs Laboratory Tests Test 09/20/18 23:04 09/21/18 07:16 09/21/18 12:14 09/21/18 18:11 Glucose (Fingerstick) 343 mg/dL (70-99) 360 mg/dL (70-99) 396 mg/dL (70-99) 308 mg/dL (70-99) Test 09/22/18 00:16 09/22/18 05:20 09/22/18 05:52 09/22/18 08:48 Glucose (Fingerstick) 400 mg/dL (70-99) 311 mg/dL (70-99) 322 mg/dL (70-99) White Blood Count 13.0 x10^3/uL (4.0-11.0) Red Blood Count 3.52 x10^6/uL (4.30-5.70) Hemoglobin 11.2 g/dL (13.0-17.5) Hematocrit 33.7 % (39.0-53.0) Mean Corpuscular Volume 96 fL (79-100) Mean Corpuscular Hemoglobin 32 pg (25-35) Mean Corpuscular Hemoglobin Concent 33 g/dL (31-37) Red Cell Distribution Width 14.1 % (11.5-14.5) Platelet Count 218 x10^3/uL (140-400) Sodium Level 136 mmol/L (136-145) Potassium Level 4.6 mmol/L (3.5-5.1) Chloride Level 98 mmol/L (98-107) Carbon Dioxide Level 33 mmol/L (21-32) Anion Gap 5 (6-14) Blood Urea Nitrogen 28 mg/dL (8-26) Creatinine 0.7 mg/dL (0.7-1.3) Estimated GFR (Cockcroft-Gault) 109.6 Glucose Level 287 mg/dL (70-99) Calcium Level 8.6 mg/dL (8.5-10.1) Phosphorus Level 3.1 mg/dL (2.6-4.7) Magnesium Level 2.3 mg/dL (1.8-2.4) Test 09/22/18 10:39 Glucose (Fingerstick) 334 mg/dL (70-99) Laboratory Tests Test 09/21/18 12:14 09/21/18 18:11 09/22/18 00:16 09/22/18 05:20 Glucose (Fingerstick) 396 mg/dL (70-99) 308 mg/dL (70-99) 400 mg/dL (70-99) White Blood Count 13.0 x10^3/uL (4.0-11.0) Red Blood Count 3.52 x10^6/uL (4.30-5.70) Hemoglobin 11.2 g/dL (13.0-17.5) Hematocrit 33.7 % (39.0-53.0) Mean Corpuscular Volume 96 fL (79-100) Mean Corpuscular Hemoglobin 32 pg (25-35) Mean Corpuscular Hemoglobin Concent 33 g/dL (31-37) Red Cell Distribution Width 14.1 % (11.5-14.5) Platelet Count 218 x10^3/uL (140-400) Sodium Level 136 mmol/L (136-145) Potassium Level 4.6 mmol/L (3.5-5.1) Chloride Level 98 mmol/L (98-107) Carbon Dioxide Level 33 mmol/L (21-32) Anion Gap 5 (6-14) Blood Urea Nitrogen 28 mg/dL (8-26) Creatinine 0.7 mg/dL (0.7-1.3) Estimated GFR (Cockcroft-Gault) 109.6 Glucose Level 287 mg/dL (70-99) Calcium Level 8.6 mg/dL (8.5-10.1) Phosphorus Level 3.1 mg/dL (2.6-4.7) Magnesium Level 2.3 mg/dL (1.8-2.4) Test 09/22/18 05:52 09/22/18 08:48 09/22/18 10:39 Glucose (Fingerstick) 311 mg/dL (70-99) 322 mg/dL (70-99) 334 mg/dL (70-99) Medications Active Scripts Medications Dose Route/Sig Max Daily Dose Days Date Category Magnesium Chloride 70 Mg Tablet. 64 Mg PO DAILY 08/30/18 Rx Synthroid (Levothyroxine Sodium) 88 Mcg Tablet 88 Mcg PO DAILY06 30 08/30/18 Rx Prednisone 20 Mg Tablet 20 Mg PO DAILY 08/30/18 Rx Budesonide 0.5 Mg/2 Ml Ampul.neb 0.5 Mg NEB RTBID 08/30/18 Rx Diltiazem 24HR Cd (Diltiazem Hcl) 180 Mg Cap.er.24h 180 Mg PO DAILY 90 08/30/18 Rx Hydrocodone-Apap 7.5-325 (Hydrocodone Bit/Acetaminophen) 1 Tab Tablet 1 Tab PO PRN Q6HRS PRN 08/26/18 Reported Prednisolone Sodium Phosphate (Prednisolone Sod Phosphate) 15 Mg/5 Ml Solution 15 Mg PO DAILY 08/26/18 Reported Omeprazole 40 Mg Capsule. 40 Mg PO DAILY 08/26/18 Reported Cartia Xt (Diltiazem Hcl) 120 Mg Cap.er.24h 120 Mg PO DAILY 08/26/18 Reported Prednisone (Prednisone) 10 Mg Tablet 40 Mg PO DAILY 07/16/18 Rx Klor-Con 10 (Potassium Chloride) 10 Meq Tablet.er 1 Tab PO DAILY 07/16/18 Rx Lasix (Furosemide) 40 Mg Tablet 1 Tab PO DAILY 07/16/18 Rx Aspirin Ec (Aspirin) 81 Mg Tablet. 81 Mg PO DAILYWBKFT 07/16/18 Rx Duoneb 0.5-3(2.5) Mg/3 Ml (Albuterol/Ipratropium) 3 Ml Ampul.neb 3 Ml NEB RTQID 07/01/18 Rx Diltiazem 24HR Cd (Diltiazem Hcl) 120 Mg Cap.er.24h 120 Mg PO DAILY 07/01/18 Rx Wellbutrin Xl (Bupropion Hcl) 150 Mg Tab.er.24h 1 Tab PO DAILY 06/30/18 Reported Omeprazole 40 Mg Capsule. 1 Cap PO 10/25/14 Reported Impression . IMPRESSION: 1. Chronic hypoxic respiratory failure. 2. Pulmonary fibrosis.ON CHRONIC STEROIDS 3. Small-bowel obstruction. S/P SURGERY / likely post-op ileus 4. Other comorbidities as indicated above. PREOPERATIVE DIAGNOSIS: Small bowel obstruction. POSTOPERATIVE DIAGNOSIS: Small bowel obstruction, secondary to adhesive band. PROCEDURE: Diagnostic laparoscopy, followed by laparotomy with release of small-bowel obstruction and decompression of the small bowel. Plan . NG TUBE TPN for nutrition BD, nebulizer treatments incentive spirometry, instructed how to use, advised to use elevate hob Lovenox, Protonix for prophylaxis Taper IV Steroids, change to PO when he is able to eat discussed w pt/ no further pulmonary rec. will see AR CARRASQUILLO MD Sep 22, 2018 11:59
--- NOTE | 2018-09-22 12:00 | NUR ---
SW following for discharge planning. Discussed with RN, pt is currently NPO and possibly having a KUB. SW advised [facility] pt will not be ready to discharge today. SW will continue to follow.
[2018-09-22] MEDS: HYDROmorphone 2 MG/ML VIAL IV PRN ×2 (12:17→23:37)
[2018-09-22 15:00] VITALS: BP 102/65
--- NOTE | 2018-09-22 16:16 | PDOC ---
SURGICAL PROGRESS NOTE Subjective getting a breathing treatment no appetite denies flatus Vital Signs Vital Signs Date Time Temp Pulse Resp B/P (MAP) Pulse Ox O2 Delivery O2 Flow Rate FiO2 09/22/18 15:00 207.9 74 102/65 (77) 97 Nasal Cannula 2.0 207.9 09/22/18 15:00 18 I&O Intake and Output 09/22/18 07:00 Intake Total 220 ml Output Total 500 ml Balance -280 ml Intake Oral 220 ml Output Urine Total 500 ml # Voids 1 # Bowel Movements 1 PATIENT HAS A DELCID: No General: Alert Abdomen: Other (a little distended, but soft, minimall TTP ) Labs Laboratory Tests Test 09/20/18 23:04 09/21/18 07:16 09/21/18 12:14 09/21/18 18:11 Glucose (Fingerstick) 343 mg/dL (70-99) 360 mg/dL (70-99) 396 mg/dL (70-99) 308 mg/dL (70-99) Test 09/22/18 00:16 09/22/18 05:20 09/22/18 05:52 09/22/18 08:48 Glucose (Fingerstick) 400 mg/dL (70-99) 311 mg/dL (70-99) 322 mg/dL (70-99) White Blood Count 13.0 x10^3/uL (4.0-11.0) Red Blood Count 3.52 x10^6/uL (4.30-5.70) Hemoglobin 11.2 g/dL (13.0-17.5) Hematocrit 33.7 % (39.0-53.0) Mean Corpuscular Volume 96 fL (79-100) Mean Corpuscular Hemoglobin 32 pg (25-35) Mean Corpuscular Hemoglobin Concent 33 g/dL (31-37) Red Cell Distribution Width 14.1 % (11.5-14.5) Platelet Count 218 x10^3/uL (140-400) Sodium Level 136 mmol/L (136-145) Potassium Level 4.6 mmol/L (3.5-5.1) Chloride Level 98 mmol/L (98-107) Carbon Dioxide Level 33 mmol/L (21-32) Anion Gap 5 (6-14) Blood Urea Nitrogen 28 mg/dL (8-26) Creatinine 0.7 mg/dL (0.7-1.3) Estimated GFR (Cockcroft-Gault) 109.6 Glucose Level 287 mg/dL (70-99) Calcium Level 8.6 mg/dL (8.5-10.1) Phosphorus Level 3.1 mg/dL (2.6-4.7) Magnesium Level 2.3 mg/dL (1.8-2.4) Test 09/22/18 10:39 Glucose (Fingerstick) 334 mg/dL (70-99) Laboratory Tests Test 09/21/18 18:11 09/22/18 00:16 09/22/18 05:20 09/22/18 05:52 Glucose (Fingerstick) 308 mg/dL (70-99) 400 mg/dL (70-99) 311 mg/dL (70-99) White Blood Count 13.0 x10^3/uL (4.0-11.0) Red Blood Count 3.52 x10^6/uL (4.30-5.70) Hemoglobin 11.2 g/dL (13.0-17.5) Hematocrit 33.7 % (39.0-53.0) Mean Corpuscular Volume 96 fL (79-100) Mean Corpuscular Hemoglobin 32 pg (25-35) Mean Corpuscular Hemoglobin Concent 33 g/dL (31-37) Red Cell Distribution Width 14.1 % (11.5-14.5) Platelet Count 218 x10^3/uL (140-400) Sodium Level 136 mmol/L (136-145) Potassium Level 4.6 mmol/L (3.5-5.1) Chloride Level 98 mmol/L (98-107) Carbon Dioxide Level 33 mmol/L (21-32) Anion Gap 5 (6-14) Blood Urea Nitrogen 28 mg/dL (8-26) Creatinine 0.7 mg/dL (0.7-1.3) Estimated GFR (Cockcroft-Gault) 109.6 Glucose Level 287 mg/dL (70-99) Calcium Level 8.6 mg/dL (8.5-10.1) Phosphorus Level 3.1 mg/dL (2.6-4.7) Magnesium Level 2.3 mg/dL (1.8-2.4) Test 09/22/18 08:48 09/22/18 10:39 Glucose (Fingerstick) 322 mg/dL (70-99) 334 mg/dL (70-99) I have reviewed the following KUB reviewed Problem List Problems Medical Problems: (1) Generalized weakness Status: Acute Assessment/Plan s/p ex lap KAYLA ileus vs pSBO continue supportive care, TPN, ambulate SHAKEEL SOMMER MD Sep 22, 2018 16:16
[2018-09-22 19:50] VITALS: BP 108/67
[2018-09-22] MEDS: SERTRALINE 25 MG TABLET. PO SCH (21:05)
[2018-09-22] MEDS ORDERED: [UNRECOGNIZED DRUG - OTHER] IV SCH ×10 (22:00)
[2018-09-22] MEDS ORDERED: DEXTROSE 70% IV SCH ×10 (22:00)
[2018-09-22] MEDS ORDERED: TOTAL PARENTERAL NUTRITION IV SCH ×10 (22:00)
[2018-09-22] MEDS ORDERED: AMINO ACID IV SCH ×10 (22:00)
[2018-09-22 23:00] VITALS: BP 111/69
[2018-09-23 03:00] VITALS: BP 111/72
[2018-09-23] MEDS: LEVOTHYROXINE 88 MCG TABLET PO SCH (06:00)
[2018-09-23] MEDS: PANTOPRAZOLE 40 MG TABLET.DR. PO SCH (06:05)
[2018-09-23 07:00] VITALS: BP 113/73
[2018-09-23] MEDS: BUDESONIDE 0.5 MG/2 ML NEBU. NEB SCH ×2 (07:58→19:41)
[2018-09-23] MEDS: IPRATRPIUM/ALBUTEROL 0.5/2.5MG 3 ML NEBU. NEB SCH ×4 (07:59→19:41)
[2018-09-23] MEDS: ASPIRIN ENTERIC COATED 325 MG TABLET.DR. PO SCH (08:00)
[2018-09-23] MEDS: predniSONE 20 MG TABLET PO SCH (09:00)
[2018-09-23] MEDS: ENOXAPARIN 40 MG/0.4 ML SYRINGE. SQ SCH (09:33)
[2018-09-23] MEDS: INSULIN LISPRO 300 UNITS/3 ML INSULN.PEN. SQ SCH ×5 (09:39→21:23)
--- NOTE | 2018-09-23 10:00 | PDOC ---
REMBERTO W[employer]ON [employer]NAGER 09/23/18 1000: SURGICAL PROGRESS NOTE Subjective no stools some flatus yesterday feels better today Vital Signs Vital Signs Date Time Temp Pulse Resp B/P (MAP) Pulse Ox O2 Delivery O2 Flow Rate FiO2 09/23/18 08:00 99 Nasal Cannula 2.0 09/23/18 07:00 98.1 71 16 113/73 (86) 98.1 I&O Intake and Output 09/23/18 06:59 Output Total 100 ml Balance -100 ml Output Urine Total 100 ml # Voids 1 General: Alert, Oriented X3, Cooperative, No acute distress Abdomen: Soft, Other (less distended, incision c/d/i,no erythema ) Labs Laboratory Tests Test 09/21/18 12:14 09/21/18 18:11 09/22/18 00:16 09/22/18 05:20 Glucose (Fingerstick) 396 mg/dL (70-99) 308 mg/dL (70-99) 400 mg/dL (70-99) White Blood Count 13.0 x10^3/uL (4.0-11.0) Red Blood Count 3.52 x10^6/uL (4.30-5.70) Hemoglobin 11.2 g/dL (13.0-17.5) Hematocrit 33.7 % (39.0-53.0) Mean Corpuscular Volume 96 fL (79-100) Mean Corpuscular Hemoglobin 32 pg (25-35) Mean Corpuscular Hemoglobin Concent 33 g/dL (31-37) Red Cell Distribution Width 14.1 % (11.5-14.5) Platelet Count 218 x10^3/uL (140-400) Sodium Level 136 mmol/L (136-145) Potassium Level 4.6 mmol/L (3.5-5.1) Chloride Level 98 mmol/L (98-107) Carbon Dioxide Level 33 mmol/L (21-32) Anion Gap 5 (6-14) Blood Urea Nitrogen 28 mg/dL (8-26) Creatinine 0.7 mg/dL (0.7-1.3) Estimated GFR (Cockcroft-Gault) 109.6 Glucose Level 287 mg/dL (70-99) Calcium Level 8.6 mg/dL (8.5-10.1) Phosphorus Level 3.1 mg/dL (2.6-4.7) Magnesium Level 2.3 mg/dL (1.8-2.4) Test 09/22/18 05:52 09/22/18 08:48 09/22/18 10:39 09/22/18 16:45 Glucose (Fingerstick) 311 mg/dL (70-99) 322 mg/dL (70-99) 334 mg/dL (70-99) 275 mg/dL (70-99) Test 09/22/18 20:40 09/23/18 07:24 Glucose (Fingerstick) 336 mg/dL (70-99) 340 mg/dL (70-99) Laboratory Tests Test 09/22/18 10:39 09/22/18 16:45 09/22/18 20:40 09/23/18 07:24 Glucose (Fingerstick) 334 mg/dL (70-99) 275 mg/dL (70-99) 336 mg/dL (70-99) 340 mg/dL (70-99) Problem List Problems Medical Problems: (1) Generalized weakness Status: Acute Assessment/Plan continue TPN await improved bowel function SHAKEEL SOMMER MD 09/23/18 1156: SURGICAL PROGRESS NOTE Assessment/Plan pt seen agree with above no new surg recs REMBERTO WINSTON [employer] ACCOUNT MANAGER Sep 23, 2018 10:00 SHAKEEL SOMMER MD Sep 23, 2018 11:56
[2018-09-23] MEDS: HYDROmorphone 2 MG/ML VIAL IV PRN ×3 (10:33→22:40)
[2018-09-23 11:00] VITALS: BP 91/57
[2018-09-23] MEDS: TPN PER PHARMACY MC PRN (11:59)
--- NOTE | 2018-09-23 11:59 | NUR ---
Pharmacy TPN Dosing Note S: JOHN ROBBINS is a 78 year old M Currently receiving Central Continuous TPN started 09/15/18 B:Pertinent PMH: SBO Height: 5 feet, 10 inches Weight: 60.835800 kg Current diet: npo LABS: Sodium: 136 Potassium: 4.6 Chloride: 98 Calcium: 8.6 Corrected Calcium: 10.04 Magnesium: 2.3 CO2: 33 SCr: 0.7 Glucose: 275-340 Albumin: 2.2 AST: 27 ALT: 38 TPN FORMULA: TPN TYPE: Central Continuous AMINO ACIDS: 65 gm DEXTROSE: 225 gm LIPIDS: 20 gm SODIUM CHLORIDE: mEq SODIUM ACETATE: 90 mEq SODIUM PHOSPHATE: mmol POTASSIUM CHLORIDE: 50 mEq POTASSIUM ACETATE: 40 mEq POTASSIUM PHOSPHATE: 20.4 mmol MAGNESIUM: 10 mEq CALCIUM: 10 mEq INSULIN: units MULTIPLE VITAMIN: 10 ml TRACE ELEMENTS: 1 ml(s) TPN PLAN: Back to NPO status, continue TPN Glucose still quite elevated, 10 units of insulin added Labs in the am R: Continue TPN as above. Will monitor electrolytes, glucose, and tolerance to TPN. JOSE DUENAS [facility], 09/23/18 [id number]
[2018-09-23] MEDS ORDERED: PANTOPRAZOLE IV PUSH 40 MG VIAL. IVP ONE (12:30)
[2018-09-23] MEDS ORDERED: methylPREDNISolone SOD SUCC PF 40 MG/ML VIAL. IV ONE (12:30)
--- NOTE | 2018-09-23 12:36 | PDOC ---
PULMONARY PROGRESS NOTES Subjective no soa No bm Vitals Vital Signs Date Time Temp Pulse Resp B/P (MAP) Pulse Ox O2 Delivery O2 Flow Rate FiO2 09/23/18 11:15 Nasal Cannula 2.0 09/23/18 11:00 98.1 60 18 91/57 (68) 95 98.1 ROS: No Chest Pain General: Alert, No acute distress HEENT: Other (nc at perrl) Lungs: Crackles (BASES) Cardiovascular: S1, S2 Abdomen: Soft, Non-tender Neuro Exam: Alert, Oriented Extremities: No Edema, Other Skin: Warm Labs Laboratory Tests Test 09/21/18 18:11 09/22/18 00:16 09/22/18 05:20 09/22/18 05:52 Glucose (Fingerstick) 308 mg/dL (70-99) 400 mg/dL (70-99) 311 mg/dL (70-99) White Blood Count 13.0 x10^3/uL (4.0-11.0) Red Blood Count 3.52 x10^6/uL (4.30-5.70) Hemoglobin 11.2 g/dL (13.0-17.5) Hematocrit 33.7 % (39.0-53.0) Mean Corpuscular Volume 96 fL (79-100) Mean Corpuscular Hemoglobin 32 pg (25-35) Mean Corpuscular Hemoglobin Concent 33 g/dL (31-37) Red Cell Distribution Width 14.1 % (11.5-14.5) Platelet Count 218 x10^3/uL (140-400) Sodium Level 136 mmol/L (136-145) Potassium Level 4.6 mmol/L (3.5-5.1) Chloride Level 98 mmol/L (98-107) Carbon Dioxide Level 33 mmol/L (21-32) Anion Gap 5 (6-14) Blood Urea Nitrogen 28 mg/dL (8-26) Creatinine 0.7 mg/dL (0.7-1.3) Estimated GFR (Cockcroft-Gault) 109.6 Glucose Level 287 mg/dL (70-99) Calcium Level 8.6 mg/dL (8.5-10.1) Phosphorus Level 3.1 mg/dL (2.6-4.7) Magnesium Level 2.3 mg/dL (1.8-2.4) Test 09/22/18 08:48 09/22/18 10:39 09/22/18 16:45 09/22/18 20:40 Glucose (Fingerstick) 322 mg/dL (70-99) 334 mg/dL (70-99) 275 mg/dL (70-99) 336 mg/dL (70-99) Test 09/23/18 07:24 09/23/18 11:46 Glucose (Fingerstick) 340 mg/dL (70-99) 324 mg/dL (70-99) Laboratory Tests Test 09/22/18 16:45 09/22/18 20:40 09/23/18 07:24 09/23/18 11:46 Glucose (Fingerstick) 275 mg/dL (70-99) 336 mg/dL (70-99) 340 mg/dL (70-99) 324 mg/dL (70-99) Medications Active Scripts Medications Dose Route/Sig Max Daily Dose Days Date Category Magnesium Chloride 70 Mg Tablet. 64 Mg PO DAILY 30 08/30/18 Rx Synthroid (Levothyroxine Sodium) 88 Mcg Tablet 88 Mcg PO DAILY06 30 08/30/18 Rx Prednisone 20 Mg Tablet 20 Mg PO DAILY 30 08/30/18 Rx Budesonide 0.5 Mg/2 Ml Ampul.neb 0.5 Mg NEB RTBID 30 08/30/18 Rx Diltiazem 24HR Cd (Diltiazem Hcl) 180 Mg Cap.er.24h 180 Mg PO DAILY 90 08/30/18 Rx Hydrocodone-Apap 7.5-325 (Hydrocodone Bit/Acetaminophen) 1 Tab Tablet 1 Tab PO PRN Q6HRS PRN 08/26/18 Reported Prednisolone Sodium Phosphate (Prednisolone Sod Phosphate) 15 Mg/5 Ml Solution 15 Mg PO DAILY 08/26/18 Reported Omeprazole 40 Mg Capsule. 40 Mg PO DAILY 08/26/18 Reported Cartia Xt (Diltiazem Hcl) 120 Mg Cap.er.24h 120 Mg PO DAILY 08/26/18 Reported Prednisone (Prednisone) 10 Mg Tablet 40 Mg PO DAILY 30 07/16/18 Rx Klor-Con 10 (Potassium Chloride) 10 Meq Tablet.er 1 Tab PO DAILY 07/16/18 Rx Lasix (Furosemide) 40 Mg Tablet 1 Tab PO DAILY 07/16/18 Rx Aspirin Ec (Aspirin) 81 Mg Tablet. 81 Mg PO DAILYWBKFT 30 07/16/18 Rx Duoneb 0.5-3(2.5) Mg/3 Ml (Albuterol/Ipratropium) 3 Ml Ampul.neb 3 Ml NEB RTQID 30 07/01/18 Rx Diltiazem 24HR Cd (Diltiazem Hcl) 120 Mg Cap.er.24h 120 Mg PO DAILY 30 07/01/18 Rx Wellbutrin Xl (Bupropion Hcl) 150 Mg Tab.er.24h 1 Tab PO DAILY 06/30/18 Reported Omeprazole 40 Mg Capsule. 1 Cap PO 10/25/14 Reported Impression . IMPRESSION: 1. Chronic hypoxic respiratory failure. 2. Pulmonary fibrosis.ON CHRONIC STEROIDS 3. Small-bowel obstruction. S/P SURGERY / likely post-op ileus 4. Other comorbidities as indicated above. PREOPERATIVE DIAGNOSIS: Small bowel obstruction. POSTOPERATIVE DIAGNOSIS: Small bowel obstruction, secondary to adhesive band. PROCEDURE: Diagnostic laparoscopy, followed by laparotomy with release of small-bowel obstruction and decompression of the small bowel. Plan . TPN for nutrition BD, nebulizer treatments incentive spirometry, elevate hob Lovenox, Protonix for prophylaxis Taper IV Steroids, change to PO when he is able to eat discussed w pt/ no further pulmonary rec. AR HINES MD Sep 23, 2018 12:36
--- NOTE | 2018-09-23 12:42 | PDOC ---
PROGRESS NOTES Subjective Subjective Patient feeling some better. Patient had some flatus yesterday. Patient currently NPO Objective Objective Vital Signs Date Time Temp Pulse Resp B/P (MAP) Pulse Ox O2 Delivery O2 Flow Rate FiO2 09/23/18 11:15 Nasal Cannula 2.0 09/23/18 11:00 98.1 60 18 91/57 (68) 95 98.1 Intake and Output 09/23/18 06:59 Output Total 100 ml Balance -100 ml Output Urine Total 100 ml # Voids 1 Physical Exam Abdomen: Other (Distended +bs) Extremities: No edema General: Alert Lungs: Other (Course BS bases) Assessment Assessment Problems Medical Problems: (1) Generalized weakness Status: Acute Recurrent ileus Small bowel obstruction status post open reduction S/P open lap lysis of adhesion and SBO take down POD #9 Severe Protein Malnutrition Debilitation PAST MEDICAL HISTORY: Significant for: 1. Pulmonary fibrosis. 2. COPD. 3. SVT. 4. Hypertension. 5. Osteoarthritis. 6. Gastroesophageal reflux disease, status post dilatation of stricture. 7. Hypothyroidism. 8. BPH. 9. Chlat-vq-vryqpgf diastolic congestive heart failure. 10. Severe protein malnutrition. 11. History of prostate cancer. 12. History of hepatitis C. 13. Major depression. Plan Plan of Care NPO Continue TPN Increase activity Await improved bowel function Comment Review of Relevant I have reviewed the following items sherine (where applicable) has been applied. Labs Laboratory Tests Test 09/21/18 18:11 09/22/18 00:16 09/22/18 05:20 09/22/18 05:52 Glucose (Fingerstick) 308 mg/dL (70-99) 400 mg/dL (70-99) 311 mg/dL (70-99) White Blood Count 13.0 x10^3/uL (4.0-11.0) Red Blood Count 3.52 x10^6/uL (4.30-5.70) Hemoglobin 11.2 g/dL (13.0-17.5) Hematocrit 33.7 % (39.0-53.0) Mean Corpuscular Volume 96 fL (79-100) Mean Corpuscular Hemoglobin 32 pg (25-35) Mean Corpuscular Hemoglobin Concent 33 g/dL (31-37) Red Cell Distribution Width 14.1 % (11.5-14.5) Platelet Count 218 x10^3/uL (140-400) Sodium Level 136 mmol/L (136-145) Potassium Level 4.6 mmol/L (3.5-5.1) Chloride Level 98 mmol/L (98-107) Carbon Dioxide Level 33 mmol/L (21-32) Anion Gap 5 (6-14) Blood Urea Nitrogen 28 mg/dL (8-26) Creatinine 0.7 mg/dL (0.7-1.3) Estimated GFR (Cockcroft-Gault) 109.6 Glucose Level 287 mg/dL (70-99) Calcium Level 8.6 mg/dL (8.5-10.1) Phosphorus Level 3.1 mg/dL (2.6-4.7) Magnesium Level 2.3 mg/dL (1.8-2.4) Test 09/22/18 08:48 09/22/18 10:39 09/22/18 16:45 09/22/18 20:40 Glucose (Fingerstick) 322 mg/dL (70-99) 334 mg/dL (70-99) 275 mg/dL (70-99) 336 mg/dL (70-99) Test 09/23/18 07:24 09/23/18 11:46 Glucose (Fingerstick) 340 mg/dL (70-99) 324 mg/dL (70-99) Laboratory Tests Test 09/22/18 16:45 09/22/18 20:40 09/23/18 07:24 09/23/18 11:46 Glucose (Fingerstick) 275 mg/dL (70-99) 336 mg/dL (70-99) 340 mg/dL (70-99) 324 mg/dL (70-99) Medications Current Medications Famotidine (Pepcid Vial) 20 mg 1X ONCE IVP Last administered on 09/12/18at 18: 07; Start 09/12/18 at 17:45; Stop 09/12/18 at 17:46; Status DC Ondansetron HCl (Zofran) 4 mg 1X ONCE IV Last administered on 09/12/18at 18:07 ; Start 09/12/18 at 17:45; Stop 09/12/18 at 17:46; Status DC Iohexol (Omnipaque 300 Mg/ml) 75 ml 1X ONCE IV Last administered on 09/12/18at 18:35; Start 09/12/18 at 18:30; Stop 09/12/18 at 18:34; Status DC Info (CONTRAST GIVEN -- Rx MONITORING) 1 each PRN DAILY PRN MC SEE COMMENTS; Start 09/12/18 at 18:45; Stop 09/14/18 at 18:44; Status DC Fentanyl Citrate (Fentanyl 2ml Vial) 50 mcg 1X ONCE IV Last administered on 05/21at 20:21; Start 09/12/18 at 20:00; Stop 09/12/18 at 20:01; Status DC Ondansetron HCl (Zofran) 4 mg PRN Q8HRS PRN IV NAUSEA/VOMITING; Start 09/12/18 at 20:30; Stop 09/13/18 at 20:29; Status DC Morphine Sulfate (Morphine Sulfate) 4 mg PRN Q2HR PRN IV PAIN Last administered on 09/13/18at 10:20; Start 09/12/18 at 20:30; Stop 09/13/18 at 20:29 ; Status DC Metronidazole 100 ml @ 100 mls/hr Q8HRS IV Last administered on 09/20/18at 06: 30; Start 09/12/18 at 22:00; Stop 09/20/18 at 10:42; Status DC Ciprofloxacin/ Dextrose 200 ml @ 200 mls/hr 1X ONCE IV Last administered on 22:51; Start 09/12/18 at 20:30; Stop 09/12/18 at 21:29; Status DC Sodium Chloride 1,000 ml @ 75 mls/hr 1X ONCE IV Last administered on at 22:51; Start 09/12/18 at 20:30; Stop 09/13/18 at 09:49; Status DC Budesonide (Pulmicort) 0.5 mg RTBID NEB Last administered on 09/23/18at 07:58; Start 09/13/18 at 09:30 Albuterol/ Ipratropium (Duoneb) 3 ml RTQID NEB Last administered on 09/23/18at 11:08; Start 09/13/18 at 09:30 Methylprednisolone Sodium Succinate (SOLU-Medrol 40MG VIAL) 20 mg DAILY IV Last administered on 09/13/18at 10:21; Start 09/13/18 at 10:00; Stop 09/14/18 at 12:55; Status DC Pantoprazole Sodium (PROTONIX VIAL for IV PUSH) 40 mg DAILYAC IVP Last administered on 09/21/18 06:34; Start 09/13/18 at 10:00; Stop 09/21/18 at 09:13 ; Status DC Enoxaparin Sodium (Lovenox 40mg Syringe) 40 mg Q24H SQ Last administered on 09:33; Start 09/13/18 at 10:00 Metoprolol Tartrate (Lopressor Vial) 5 mg Q6HRS IVP Last administered on 06:41; Start 09/13/18 at 14:00; Stop 09/19/18 at 11:39; Status DC Potassium Chloride/Water 100 ml @ 100 mls/hr Q1H IV Last administered on 17:10; Start 09/13/18 at 14:00; Stop 09/13/18 at 17:59; Status DC Throat Lozenges (Chloraseptic) 1 spray PRN Q2HR PRN PO SORE THROAT, 2nd choice Last administered on 09/14/18at 13:47; Start 09/13/18 at 16:45 Throat Lozenges (Cepacol Sore Throat Lozenge) 1 deniz PRN Q2HRS PRN PO SORE THROAT, 1st choice Last administered on 09/14/18 13:46; Start 09/13/18 at 16:45 Aspirin (Aspirin) 300 mg DAILY MD Last administered on 09/17/18 11:25; Start 09/14/18 at 09:00; Stop 09/18/18 at 13:30; Status DC Morphine Sulfate (Morphine Sulfate) 4 mg PRN Q2HR PRN IV MODERATE PAIN, SEVERE PAIN Last administered on 09/18/18 21:59; Start 09/13/18 at 21:15; Stop at 09:10; Status DC Barium Sulfate (E-Z-Hd) 680 gm 1X ONCE PO ; Start 09/14/18 at 08:00; Stop 09/14 at 08:01; Status DC Iohexol (Omnipaque 300 Mg/ml) 400 ml 1X ONCE PO Last administered on at 08:00; Start 09/14/18 at 08:00; Stop 09/14/18 at 08:01; Status DC Info (CONTRAST GIVEN -- Rx MONITORING) 1 each PRN DAILY PRN MC SEE COMMENTS; Start 09/14/18 at 08:00; Stop 09/16/18 at 07:59; Status DC Potassium Chloride/Water 100 ml @ 100 mls/hr Q1H IV ; Start 09/14/18 at 09:00; Stop 09/14/18 at 12:59; Status DC Methylprednisolone Sodium Succinate (SOLU-Medrol 125MG VIAL) 125 mg DAILY IV Last administered on 09/20/18at 09:01; Start 09/15/18 at 09:00; Stop 09/20/18 at 13:23; Status DC Info (Tpn Per Pharmacy) 1 each PRN DAILY PRN MC SEE COMMENTS Last administered on 09/14/18at 13:51; Start 09/14/18 at 13:30; Stop 09/14/18 at 14:27; Status DC Info (Tpn Per Pharmacy) 1 each PRN DAILY PRN MC SEE COMMENTS Last administered on 09/18/18at 09:54; Start 09/15/18 at 14:30; Stop 09/19/18 at 11:39; Status DC Amino Acids/ Glycerin/ Electrolytes 1,000 ml @ 80 mls/hr [id number] IV Last administered on 09/15/18at 03:32; Start 09/14/18 at 14:30; Stop 09/15/18 at 21:59 ; Status DC Cefazolin Sodium/ Dextrose 50 ml @ 100 mls/hr 1X PREOP PRN IV protocol Last administered on 09/14/18at 17:40; Start 09/15/18 at 06:00; Stop 09/15/18 at 18:00 ; Status DC Metronidazole 100 ml @ 100 mls/hr 1X PREOP PRN IV protocol; Start 09/15/18 at 06:00; Stop 09/15/18 at 18:00; Status DC Ondansetron HCl (Zofran) 4 mg PRN Q6HRS PRN IV NAUSEA/VOMITING; Start 09/14/18 at 16:00; Stop 09/15/18 at 01:45; Status DC Fentanyl Citrate (Fentanyl 2ml Vial) 25 mcg PRN Q5MIN PRN IV MILD PAIN; Start 09/14/18 at 16:00; Stop 09/15/18 at 01:40; Status DC Fentanyl Citrate (Fentanyl 2ml Vial) 50 mcg PRN Q5MIN PRN IV MODERATE TO SEVERE PAIN Last administered on 09/14/18at 20:27; Start 09/14/18 at 16:00; Stop 09/15/18 at 01:40; Status DC Morphine Sulfate (Morphine Sulfate) 1 mg PRN Q10MIN PRN IV SEVERE PAIN Last administered on 09/14/18at 21:51; Start 09/14/18 at 16:00; Stop 09/15/18 at 01:40 ; Status DC Ringer's Solution 1,000 ml @ 30 mls/hr Q24H IV Last administered on 09/14/18at 21:30; Start 09/14/18 at 15:52; Stop 09/15/18 at 01:40; Status DC Lidocaine HCl (Xylocaine-Mpf 1% 2ml Vial) 2 ml 1X PRN PRN ID IV START; Start at 16:00; Stop 09/15/18 at 15:59; Status DC Hydromorphone HCl (Dilaudid) 0.5 mg PRN Q10MIN PRN IV SEV PAIN, Second choice; Start 09/14/18 at 16:00; Stop 09/15/18 at 01:45; Status DC Prochlorperazine Edisylate (Compazine) 5 mg PACU PRN PRN IV NAUSEA, MRX1 Last administered on 09/14/18at 21:02; Start 09/14/18 at 16:00; Stop 09/15/18 at 01:40 ; Status DC Cefazolin Sodium/ Dextrose 50 ml @ As Directed STK-MED ONCE IV ; Start 09/14/18 at 16:08; Stop 09/14/18 at 16:09; Status DC Propofol 20 ml @ As Directed STK-MED ONCE IV ; Start 09/14/18 at 16:32; Stop 07/21 at 16:33; Status DC Dexamethasone Sodium Phosphate (Decadron) 20 mg STK-MED ONCE .ROUTE ; Start 07/21 at 16:32; Stop 09/14/18 at 16:33; Status DC Lidocaine HCl (Lidocaine Pf 2% Vial) 5 ml STK-MED ONCE .ROUTE ; Start 09/14/18 at 16:32; Stop 09/14/18 at 16:33; Status DC Ondansetron HCl (Zofran) 4 mg STK-MED ONCE .ROUTE ; Start 09/14/18 at 16:32; Stop 09/14/18 at 16:33; Status DC Succinylcholine Chloride (Anectine) 200 mg STK-MED ONCE .ROUTE ; Start 09/14/18 at 16:32; Stop 09/14/18 at 16:33; Status DC Rocuronium Sibley (Zemuron) 50 mg STK-MED ONCE .ROUTE ; Start 09/14/18 at 16:32 ; Stop 09/14/18 at 16:33; Status DC Fentanyl Citrate (Fentanyl 2ml Vial) 100 mcg STK-MED ONCE .ROUTE ; Start at 16:32; Stop 09/14/18 at 16:33; Status DC Bupivacaine HCl/ Epinephrine Bitart (Sensorcain-Mpf Epi 0.5%-[id number]) 30 ml STK -MED ONCE .ROUTE Last administered on 09/14/18at 17:57; Start 09/14/18 at 17:18 ; Stop 09/14/18 at 17:19; Status DC Cefazolin Sodium/ Dextrose 50 ml @ As Directed STK-MED ONCE IV ; Start 09/14/18 at 17:28; Stop 09/14/18 at 17:29; Status DC Lidocaine HCl (Glydo (Lidocaine) Jelly) 6 marcel STK-MED ONCE .ROUTE ; Start at 17:43; Stop 09/14/18 at 17:44; Status DC Hydrocortisone Sodium Succinate (Solu-CORTEF) 100 mg STK-MED ONCE .ROUTE ; Start 09/14/18 at 18:08; Stop 09/14/18 at 18:09; Status DC Phenylephrine HCl (Shaw-Synephrine Inj) 10 mg STK-MED ONCE .ROUTE ; Start at 18:11; Stop 09/14/18 at 18:12; Status DC Glycopyrrolate (Robinul) 1 mg STK-MED ONCE .ROUTE ; Start 09/14/18 at 19:05; Stop 09/14/18 at 19:06; Status DC Sevoflurane (Ultane) 60 ml STK-MED ONCE IH ; Start 09/14/18 at 19:23; Stop 09/14 at 19:24; Status DC Enoxaparin Sodium (Lovenox 40mg Syringe) 30 mg Q24H SQ ; Start 09/14/18 at 19:45 ; Status UNV Sodium Chloride (Normal Saline Flush) 3 ml QSHIFT PRN IV AFTER MEDS AND BLOOD DRAWS; Start 09/14/18 at 19:45 Hydromorphone HCl 30 ml @ 0 mls/hr CONT PRN PRN IV PER PROTOCOL Last administered on 09/14/18at 20:25; Start 09/14/18 at 19:45; Stop 09/15/18 at 08:34 ; Status DC Ondansetron HCl (Zofran) 4 mg PRN Q6HRS PRN IV NAUESA, 1ST CHOICE Last administered on 09/22/18at 08:47; Start 09/14/18 at 19:45 Ringer's Solution 1,000 ml @ 75 mls/hr [id number] IV Last administered on at 21:00; Start 09/14/18 at 21:00; Stop 09/15/18 at 01:45; Status DC Lorazepam (Ativan) 0.5 mg PRN Q6HRS PRN IV ANXIETY / AGITATION; Start 09/14/18 at 22:15 Albumin Human 250 ml @ 83.3 mls/hr 1X ONCE IV Last administered on 09/15/18at 01:15; Start 09/15/18 at 01:00; Stop 09/15/18 at 04:00; Status DC Hydromorphone HCl (Dilaudid) 0.5 mg PRN Q3HRS PRN IV MILD PAIN Last administered on 09/23/18at 10:33; Start 09/15/18 at 08:30 Albumin Human 500 ml @ 125 mls/hr 1X ONCE IV Last administered on 09/15/18at 10:23; Start 09/15/18 at 09:00; Stop 09/15/18 at 12:59; Status DC Sodium Chloride 250 ml @ 500 mls/hr 1X ONCE IV Last administered on at 11:00; Start 09/15/18 at 11:00; Stop 09/15/18 at 11:29; Status DC Sodium Chloride 1,000 ml @ 100 mls/hr Q10H IV Last administered on 2/13/19at 11:30; Start 09/15/18 at 11:30; Stop 09/15/18 at 22:00; Status DC Sodium Chloride 1,000 ml @ 75 mls/hr [id number] IV Last administered on at 00:12; Start 09/15/18 at 22:00; Stop 09/17/18 at 12:12; Status DC Sodium Acetate 90 meq/Potassium Chloride 50 meq/ Potassium Phosphate 3.4 mmol/ Magnesium Sulfate 10 meq/ Calcium Gluconate 10 meq/ Multivitamins 10 ml/Chromium / Copper/Manganese/ Seleni/Zn 1 ml/ Total Parenteral Nutrition/Amino Acids/ Dextrose/ Fat Emulsion Intravenous 1,512 ml @ 63 mls/hr TPN CONT IV Last administered on 09/15/18at 21:43; Start 09/15/18 at 22:00; Stop 09/16/18 at 21:59 ; Status DC Lidocaine/Sodium Bicarbonate (Buffered Lidocaine 1%) 3 ml STK-MED ONCE .ROUTE ; Start 09/15/18 at 14:35; Stop 09/15/18 at 14:36; Status DC Heparin Sodium/ Sodium Chloride 500 ml @ As Directed STK-MED ONCE .ROUTE ; Start 09/15/18 at 14:35; Stop 09/15/18 at 14:36; Status DC Heparin Sodium/ Sodium Chloride 500 ml @ As Directed STK-MED ONCE .ROUTE ; Start 09/15/18 at 14:36; Stop 09/15/18 at 14:37; Status DC Heparin Sodium/ Sodium Chloride (HEPARIN for ARTERIAL LINE FLUSH) 1,000 unit 1X ONCE IART Last administered on 09/15/18at 15:15; Start 09/15/18 at 15:15; Stop 09/15/18 at 15:16; Status DC Lidocaine/Sodium Bicarbonate (Buffered Lidocaine 1%) 3 ml 1X ONCE IJ Last administered on 09/15/18at 15:15; Start 09/15/18 at 15:15; Stop 09/15/18 at 15:16 ; Status DC Potassium Phosphate 13.6 mmol/Dextrose 104.5333 ml @ 52.267 m... 1X ONCE IV Last administered on 09/16/18at 09:53; Start 09/16/18 at 10:00; Stop 09/16/18 at 11:59; Status DC Sodium Acetate 90 meq/Potassium Chloride 50 meq/ Potassium Phosphate 15 mmol/ Magnesium Sulfate 10 meq/Calcium Gluconate 10 meq/ Multivitamins 10 ml/Chromium / Copper/Manganese/ Seleni/Zn 1 ml/ Total Parenteral Nutrition/Amino Acids/ Dextrose/ Fat Emulsion Intravenous 1,512 ml @ 63 mls/hr TPN CONT IV Last administered on 09/16/18at 21:49; Start 09/16/18 at 22:00; Stop 09/17/18 at 21:59 ; Status DC Albuterol/ Ipratropium (Duoneb) 3 ml RTQID NEB ; Start 09/16/18 at 12:00; Stop 09/16/18 at 12:00; Status DC Sodium Chloride 1,000 ml @ 75 mls/hr [id number] IV Last administered on at 06:20; Start 09/17/18 at 13:00; Stop 09/19/18 at 11:39; Status DC Potassium Phosphate 13.6 mmol/Dextrose 104.5333 ml @ 52.267 m... ONCE ONCE IV Last administered on 09/17/18at 14:14; Start 09/17/18 at 13:00; Stop 09/17/18 at 14:59; Status DC Sodium Acetate 90 meq/Potassium Acetate 40 meq/ Potassium Phosphate 20.4 mmol/ Magnesium Sulfate 10 meq/ Calcium Gluconate 10 meq/ Multivitamins 10 ml/Chromium / Copper/Manganese/ Seleni/Zn 1 ml/ Total Parenteral Nutrition/Amino Acids/ Dextrose/ Fat Emulsion Intravenous 1,512 ml @ 63 mls/hr TPN CONT IV Last administered on 09/17/18at 23:14; Start 09/17/18 at 22:00; Stop 09/18/18 at 21:59 ; Status DC Sodium Acetate 90 meq/Potassium Acetate 40 meq/ Potassium Phosphate 20.4 mmol/ Magnesium Sulfate 10 meq/ Calcium Gluconate 10 meq/ Multivitamins 10 ml/Chromium / Copper/Manganese/ Seleni/Zn 1 ml/ Total Parenteral Nutrition/Amino Acids/ Dextrose/ Fat Emulsion Intravenous 1,512 ml @ 63 mls/hr TPN CONT IV Last administered on 09/18/18at 21:51; Start 09/18/18 at 22:00; Stop 09/19/18 at 11:39 ; Status DC Aspirin (Ecotrin) 325 mg DAILYWBKFT PO Last administered on 09/22/18at 08:45; Start 09/18/18 at 13:30 Acetaminophen/ Hydrocodone Bitart (Lortab 10/325) 1 tab PRN Q6HRS PRN PO PAIN Last administered on 09/21/18 21:06; Start 09/19/18 at 10:15 Levothyroxine Sodium (Synthroid) 88 mcg DAILY06 PO Last administered on 05:48; Start 09/19/18 at 15:30 Diltiazem HCl (Cardizem 24hr Cd) 120 mg DAILY PO Last administered on 08:45; Start 09/19/18 at 12:00 Info (Tpn Per Pharmacy) 1 each PRN DAILY PRN MC SEE COMMENTS Last administered on 09/23/18 11:59; Start 09/20/18 at 11:30 Sodium Acetate 90 meq/Potassium Acetate 40 meq/ Potassium Phosphate 20.4 mmol/ Magnesium Sulfate 10 meq/ Calcium Gluconate 10 meq/ Multivitamins 10 ml/Chromium / Copper/Manganese/ Seleni/Zn 1 ml/ Total Parenteral Nutrition/Amino Acids/ Dextrose/ Fat Emulsion Intravenous 1,512 ml @ 63 mls/hr TPN CONT IV Last administered on 09/20/18at 21:23; Start 09/20/18 at 22:00; Stop 09/21/18 at 21:59 ; Status DC Methylprednisolone Sodium Succinate (SOLU-Medrol 125MG VIAL) 60 mg DAILY IV ; Start 09/21/18 at 09:00; Stop 09/21/18 at 09:10; Status DC Insulin Human Lispro (HumaLOG) 0-5 UNITS TIDWMEALS SQ ; Start 09/21/18 at 08:00 ; Stop 09/21/18 at 09:08; Status DC Dextrose (Dextrose 50%-Water Syringe) 12.5 gm PRN Q15MIN PRN IV SEE COMMENTS; Start 09/21/18 at 00:00 Insulin Human Lispro (HumaLOG) 0-12 UNITS QIDACHS SQ Last administered on at 11:53; Start 09/21/18 at 11:30 Prednisone (Prednisone) 40 mg DAILY PO Last administered on 09/22/18 08:44; Start 09/21/18 at 10:00 Pantoprazole Sodium (Protonix) 40 mg DAILYAC PO Last administered on 09/22/18at 07:01; Start 09/22/18 at 07:30 Sodium Acetate 90 meq/Potassium Acetate 40 meq/ Potassium Phosphate 20.4 mmol/ Magnesium Sulfate 10 meq/ Calcium Gluconate 10 meq/ Multivitamins 10 ml/Chromium / Copper/Manganese/ Seleni/Zn 1 ml/ Total Parenteral Nutrition/Amino Acids/ Dextrose/ Fat Emulsion Intravenous 1,512 ml @ 63 mls/hr TPN CONT IV Last administered on 09/21/18at 21:07; Start 09/21/18 at 22:00; Stop 09/22/18 at 21:59 ; Status DC Sertraline HCl (Zoloft) 25 mg QHS PO Last administered on 09/21/18at 21:06; Start 09/21/18 at 21:00 Sodium Acetate 90 meq/Potassium Acetate 40 meq/ Potassium Phosphate 20.4 mmol/ Magnesium Sulfate 10 meq/ Calcium Gluconate 10 meq/ Multivitamins 10 ml/Chromium / Copper/Manganese/ Seleni/Zn 1 ml/ Total Parenteral Nutrition/Amino Acids/ Dextrose/ Fat Emulsion Intravenous 1,512 ml @ 63 mls/hr TPN CONT IV Last administered on 09/22/18at 21:11; Start 09/22/18 at 22:00; Stop 09/23/18 at 21:59 Sodium Acetate 90 meq/Potassium Acetate 40 meq/ Potassium Phosphate 20.4 mmol/ Magnesium Sulfate 10 meq/ Calcium Gluconate 10 meq/ Multivitamins 10 ml/Chromium / Copper/Manganese/ Seleni/Zn 1 ml/ Insulin Human Regular 10 unit/ Total Parenteral Nutrition/Amino Acids/Dextrose/ Fat Emuls... 1,512 ml @ 63 mls/hr TPN CONT IV ; Start 09/23/18 at 22:00; Stop 09/24/18 at 21:59 Insulin Human Lispro (HumaLOG) 5 units Q6HRS SQ ; Start 09/23/18 at 18:00 Pantoprazole Sodium (PROTONIX VIAL for IV PUSH) 40 mg 1X ONCE IVP ; Start 09/23 at 12:30; Stop 09/23/18 at 12:31; Status DC Methylprednisolone Sodium Succinate (SOLU-Medrol 40MG VIAL) 40 mg 1X ONCE IV ; Start 09/23/18 at 12:30; Stop 09/23/18 at 12:31; Status DC Active Scripts Active Magnesium Chloride 70 Mg Tablet.dr 64 Mg PO DAILY 30 Days Synthroid (Levothyroxine Sodium) 88 Mcg Tablet 88 Mcg PO DAILY06 30 Days Prednisone 20 Mg Tablet 20 Mg PO DAILY 30 Days Budesonide 0.5 Mg/2 Ml Ampul.neb 0.5 Mg NEB RTBID 30 Days Diltiazem 24HR Cd (Diltiazem Hcl) 180 Mg Cap.er.24h 180 Mg PO DAILY 90 Days Prednisone (Prednisone) 10 Mg Tablet 40 Mg PO DAILY 30 Days Klor-Con 10 (Potassium Chloride) 10 Meq Tablet.er 1 Tab PO DAILY Lasix (Furosemide) 40 Mg Tablet 1 Tab PO DAILY Aspirin Ec (Aspirin) 81 Mg Tablet. 81 Mg PO DAILYWBKFT 30 Days Duoneb 0.5-3(2.5) Mg/3 Ml (Albuterol/Ipratropium) 3 Ml Ampul.neb 3 Ml NEB RTQID 30 Days Diltiazem 24HR Cd (Diltiazem Hcl) 120 Mg Cap.er.24h 120 Mg PO DAILY 30 Days Reported Hydrocodone-Apap 7.5-325 (Hydrocodone Bit/Acetaminophen) 1 Tab Tablet 1 Tab PO PRN Q6HRS PRN Prednisolone Sodium Phosphate (Prednisolone Sod Phosphate) 15 Mg/5 Ml Solution 15 Mg PO DAILY Omeprazole 40 Mg Capsule. 40 Mg PO DAILY Cartia Xt (Diltiazem Hcl) 120 Mg Cap.er.24h 120 Mg PO DAILY Wellbutrin Xl (Bupropion Hcl) 150 Mg Tab.er.24h 1 Tab PO DAILY Omeprazole 40 Mg Capsule. 1 Cap PO Vitals/I & O Vital Sign - Last 24 Hours 09/22/18 09/22/18 09/22/18 09/22/18 12:56 15:00 15:00 16:11 Temp 97.7 207.9 97.7 207.9 Pulse 74 74 Resp 18 B/P (MAP) 102/65 (77) 102/65 (77) Pulse Ox 98 97 97 98 O2 Delivery Nasal Cannula Room Air Nasal Cannula Nasal Cannula O2 Flow Rate 2.0 2.0 2.0 09/22/18 09/22/18 09/22/18 09/22/18 19:33 19:34 19:50 20:00 Temp 97.6 97.6 Pulse 78 Resp 20 B/P (MAP) 108/67 (81) Pulse Ox 98 98 97 O2 Delivery Nasal Cannula Nasal Cannula Nasal Cannula Nasal Cannula O2 Flow Rate 2.0 2.0 2.0 2.0 09/22/18 09/22/18 09/23/18 09/23/18 23:00 23:37 00:08 03:00 Temp 98.1 97.5 98.1 97.5 Pulse 85 70 Resp 20 20 B/P (MAP) 111/69 (83) 111/72 (85) Pulse Ox 98 98 98 94 O2 Delivery Nasal Cannula Nasal Cannula Nasal Cannula O2 Flow Rate 2.0 2.0 2.0 2.0 09/23/18 09/23/18 09/23/18 09/23/18 07:00 07:40 08:00 10:33 Temp 98.1 98.1 Pulse 71 Resp 16 B/P (MAP) 113/73 (86) Pulse Ox 94 99 O2 Delivery Nasal Cannula Nasal Cannula Nasal Cannula Room Air O2 Flow Rate 2.0 2.0 2.0 09/23/18 09/23/18 09/23/18 11:00 11:06 11:15 Temp 98.1 98.1 Pulse 60 Resp 18 B/P (MAP) 91/57 (68) Pulse Ox 95 O2 Delivery Room Air Room Air Nasal Cannula O2 Flow Rate 2.0 Intake and Output 09/22/18 09/22/18 09/23/18 14:59 22:59 06:59 Output Total 100 ml Balance -100 ml Nutrition Consultation Dietary Evaluation: Recommendations by RD: Increase Calorie Intake, Protein supplementation, PPN/ TPN Comments: REC resume TPN per followin grams dextrose, 65 grams AA, 20 grams lipid added ensure enlive bid, pt on full liquids Expected Outcomes/Goals: TPN for nutrition needs s/p abdominal surgery until po intake tolerated w/ solid foods Interpretation of weight loss: >5% in 1 month Malnutrition Findings: Food and Nutrition Intake (Sev: <50% est energy req 5days Weight Status: Underweight LOURDES POLLOCK MD Sep 23, 2018 12:42
[2018-09-23 15:00] VITALS: BP 117/69
[2018-09-23 19:15] VITALS: BP 112/65
[2018-09-23] MEDS: SERTRALINE 25 MG TABLET. PO SCH (21:09)
[2018-09-23] MEDS ORDERED: AMINO ACID IV SCH ×11 (22:00)
[2018-09-23] MEDS ORDERED: DEXTROSE 70% IV SCH ×11 (22:00)
[2018-09-23] MEDS ORDERED: TOTAL PARENTERAL NUTRITION IV SCH ×11 (22:00)
[2018-09-23] MEDS ORDERED: [UNRECOGNIZED DRUG - OTHER] IV SCH ×11 (22:00)
[2018-09-23 22:49] VITALS: BP 123/75
[2018-09-24 03:14] VITALS: BP 134/75
[2018-09-24] MEDS: INSULIN LISPRO 300 UNITS/3 ML INSULN.PEN. SQ SCH ×8 (06:00→21:39)
[2018-09-24] MEDS: LEVOTHYROXINE 88 MCG TABLET PO SCH (06:00)
[2018-09-24 07:00] VITALS: BP 120/85
[2018-09-24] MEDS: BUDESONIDE 0.5 MG/2 ML NEBU. NEB SCH ×2 (07:18→20:00)
[2018-09-24] MEDS: IPRATRPIUM/ALBUTEROL 0.5/2.5MG 3 ML NEBU. NEB SCH ×4 (07:18→20:00)
[2018-09-24] MEDS: PANTOPRAZOLE 40 MG TABLET.DR. PO SCH (07:30)
[2018-09-24 07:44] LABS: CALCIUM 8.2 mg/dL (8.5-10.1); CREATININE 0.6 mg/dL (0.7-1.3); MAGNESIUM 2.3 mg/dL (1.8-2.4); PHOSPHORUS 3.5 mg/dL (2.6-4.7); POTASSIUM 4.7 mmol/L (3.5-5.1)
[2018-09-24] MEDS: ASPIRIN ENTERIC COATED 325 MG TABLET.DR. PO SCH (08:00)
[2018-09-24] MEDS ORDERED: PANTOPRAZOLE IV PUSH 40 MG VIAL. IVP ONE (08:00)
[2018-09-24] MEDS: predniSONE 20 MG TABLET PO SCH (09:00)
[2018-09-24] MEDS: ENOXAPARIN 40 MG/0.4 ML SYRINGE. SQ SCH (09:07)
[2018-09-24] MEDS: methylPREDNISolone SOD SUCC PF 40 MG/ML VIAL. IV SCH (09:32)
[2018-09-24] MEDS: HYDROmorphone 2 MG/ML VIAL IV PRN ×2 (09:32→12:49)
[2018-09-24] MEDS: PANTOPRAZOLE IV PUSH 40 MG VIAL. IVP SCH (09:33)
--- NOTE | 2018-09-24 09:52 | PDOC ---
REMBERTO WINSTON [employer] 09/24/18 0951: SURGICAL PROGRESS NOTE Subjective feeling better + flatus thirsty Vital Signs Vital Signs Date Time Temp Pulse Resp B/P (MAP) Pulse Ox O2 Delivery O2 Flow Rate FiO2 09/24/18 09:32 Nasal Cannula 3.0 09/24/18 07:20 100 09/24/18 07:00 97.8 69 16 120/85 (97) 97.8 I&O Intake and Output 09/24/18 06:59 Output Total 1100 ml Balance -1100 ml Output Urine Total 1100 ml General: Alert, Oriented X3, Cooperative, No acute distress Abdomen: Soft, Other (ND) Labs Laboratory Tests Test 09/22/18 10:39 09/22/18 16:45 09/22/18 20:40 09/23/18 07:24 Glucose (Fingerstick) 334 mg/dL (70-99) 275 mg/dL (70-99) 336 mg/dL (70-99) 340 mg/dL (70-99) Test 09/23/18 11:46 09/23/18 17:07 09/23/18 21:05 09/24/18 07:18 Glucose (Fingerstick) 324 mg/dL (70-99) 234 mg/dL (70-99) 214 mg/dL (70-99) Sodium Level 135 mmol/L (136-145) Potassium Level 4.7 mmol/L (3.5-5.1) Chloride Level 98 mmol/L (98-107) Carbon Dioxide Level 33 mmol/L (21-32) Anion Gap 4 (6-14) Blood Urea Nitrogen 28 mg/dL (8-26) Creatinine 0.6 mg/dL (0.7-1.3) Estimated GFR (Cockcroft-Gault) 131.0 Glucose Level 287 mg/dL (70-99) Calcium Level 8.2 mg/dL (8.5-10.1) Phosphorus Level 3.5 mg/dL (2.6-4.7) Magnesium Level 2.3 mg/dL (1.8-2.4) Test 09/24/18 07:50 Glucose (Fingerstick) 276 mg/dL (70-99) Laboratory Tests Test 09/23/18 11:46 09/23/18 17:07 09/23/18 21:05 09/24/18 07:18 Glucose (Fingerstick) 324 mg/dL (70-99) 234 mg/dL (70-99) 214 mg/dL (70-99) Sodium Level 135 mmol/L (136-145) Potassium Level 4.7 mmol/L (3.5-5.1) Chloride Level 98 mmol/L (98-107) Carbon Dioxide Level 33 mmol/L (21-32) Anion Gap 4 (6-14) Blood Urea Nitrogen 28 mg/dL (8-26) Creatinine 0.6 mg/dL (0.7-1.3) Estimated GFR (Cockcroft-Gault) 131.0 Glucose Level 287 mg/dL (70-99) Calcium Level 8.2 mg/dL (8.5-10.1) Phosphorus Level 3.5 mg/dL (2.6-4.7) Magnesium Level 2.3 mg/dL (1.8-2.4) Test 09/24/18 07:50 Glucose (Fingerstick) 276 mg/dL (70-99) Problem List Problems Medical Problems: (1) Generalized weakness Status: Acute Assessment/Plan try clears slowly SHAKEEL SOMMER MD 09/24/18 1404: SURGICAL PROGRESS NOTE Assessment/Plan pt seen, examined agree with above Dr Bone to follow over the weekend REMBERTO WINSTON APRN Sep 24, 2018 09:51 SHAKEEL SOMMER MD Sep 24, 2018 14:04
[2018-09-24 11:00] VITALS: BP 117/75
[2018-09-24] MEDS: TPN PER PHARMACY MC PRN (12:37)
--- NOTE | 2018-09-24 12:37 | NUR ---
Pharmacy TPN Dosing Note S: JOHN ROBBINS is a 78 year old M Currently receiving Central Continuous TPN started 09/15/18 B:Pertinent PMH: SBO Height: 5 feet, 10 inches Weight: 60.414043 kg Current diet: clears LABS: Sodium: 135 Potassium: 4.7 Chloride: 98 Calcium: 8.2 Corrected Calcium: 9.64 Magnesium: 2.3 CO2: 33 SCr: 0.6 Glucose: 287 Albumin: 2.2 AST: 27 ALT: 38 TPN FORMULA: TPN TYPE: Central Continuous AMINO ACIDS: 65 gm DEXTROSE: 225 gm LIPIDS: 20 gm SODIUM CHLORIDE: mEq SODIUM ACETATE: 90 mEq SODIUM PHOSPHATE: mmol POTASSIUM CHLORIDE: 20 mEq POTASSIUM ACETATE: - mEq POTASSIUM PHOSPHATE: 20.4 mmol MAGNESIUM: 10 mEq CALCIUM: 10 mEq INSULIN: units MULTIPLE VITAMIN: 10 ml TRACE ELEMENTS: 1 ml(s) TPN PLAN: Trialing clears today Glucose improved after novolog added by primary and 10 units insulin added to TPN yesterday, will continue to monitor Potassium trending up, will reduce to 20meq and convert to KCl Labs in the am R: Continue TPN as written above. Will monitor electrolytes, glucose, and tolerance to TPN. JOSE DUENAS [facility], 09/24/18 [id number]
--- NOTE | 2018-09-24 12:37 | PDOC ---
PULMONARY PROGRESS NOTES Subjective no soa No bm but passing gas Vitals Vital Signs Date Time Temp Pulse Resp B/P (MAP) Pulse Ox O2 Delivery O2 Flow Rate FiO2 09/24/18 11:29 98 Nasal Cannula 3.0 09/24/18 07:00 97.8 69 16 120/85 (97) 97.8 ROS: No Chest Pain General: Alert, No acute distress HEENT: Other (nc at perrl) Lungs: Crackles (BASES) Cardiovascular: S1, S2 Abdomen: Soft, Non-tender Neuro Exam: Alert, Oriented Extremities: No Edema, Other Skin: Warm Labs Laboratory Tests Test 09/22/18 16:45 09/22/18 20:40 09/23/18 07:24 09/23/18 11:46 Glucose (Fingerstick) 275 mg/dL (70-99) 336 mg/dL (70-99) 340 mg/dL (70-99) 324 mg/dL (70-99) Test 09/23/18 17:07 09/23/18 21:05 09/24/18 07:18 09/24/18 07:50 Glucose (Fingerstick) 234 mg/dL (70-99) 214 mg/dL (70-99) 276 mg/dL (70-99) Sodium Level 135 mmol/L (136-145) Potassium Level 4.7 mmol/L (3.5-5.1) Chloride Level 98 mmol/L (98-107) Carbon Dioxide Level 33 mmol/L (21-32) Anion Gap 4 (6-14) Blood Urea Nitrogen 28 mg/dL (8-26) Creatinine 0.6 mg/dL (0.7-1.3) Estimated GFR (Cockcroft-Gault) 131.0 Glucose Level 287 mg/dL (70-99) Calcium Level 8.2 mg/dL (8.5-10.1) Phosphorus Level 3.5 mg/dL (2.6-4.7) Magnesium Level 2.3 mg/dL (1.8-2.4) Test 09/24/18 11:00 Glucose (Fingerstick) 237 mg/dL (70-99) Laboratory Tests Test 09/23/18 17:07 09/23/18 21:05 09/24/18 07:18 09/24/18 07:50 Glucose (Fingerstick) 234 mg/dL (70-99) 214 mg/dL (70-99) 276 mg/dL (70-99) Sodium Level 135 mmol/L (136-145) Potassium Level 4.7 mmol/L (3.5-5.1) Chloride Level 98 mmol/L (98-107) Carbon Dioxide Level 33 mmol/L (21-32) Anion Gap 4 (6-14) Blood Urea Nitrogen 28 mg/dL (8-26) Creatinine 0.6 mg/dL (0.7-1.3) Estimated GFR (Cockcroft-Gault) 131.0 Glucose Level 287 mg/dL (70-99) Calcium Level 8.2 mg/dL (8.5-10.1) Phosphorus Level 3.5 mg/dL (2.6-4.7) Magnesium Level 2.3 mg/dL (1.8-2.4) Test 09/24/18 11:00 Glucose (Fingerstick) 237 mg/dL (70-99) Medications Active Scripts Medications Dose Route/Sig Max Daily Dose Days Date Category Magnesium Chloride 70 Mg Tablet.dr 64 Mg PO DAILY 30 08/30/18 Rx Synthroid (Levothyroxine Sodium) 88 Mcg Tablet 88 Mcg PO DAILY06 30 08/30/18 Rx Prednisone 20 Mg Tablet 20 Mg PO DAILY 30 08/30/18 Rx Budesonide 0.5 Mg/2 Ml Ampul.neb 0.5 Mg NEB RTBID 30 08/30/18 Rx Diltiazem 24HR Cd (Diltiazem Hcl) 180 Mg Cap.er.24h 180 Mg PO DAILY 90 08/30/18 Rx Hydrocodone-Apap 7.5-325 (Hydrocodone Bit/Acetaminophen) 1 Tab Tablet 1 Tab PO PRN Q6HRS PRN 08/26/18 Reported Prednisolone Sodium Phosphate (Prednisolone Sod Phosphate) 15 Mg/5 Ml Solution 15 Mg PO DAILY 08/26/18 Reported Omeprazole 40 Mg Capsule.dr 40 Mg PO DAILY 08/26/18 Reported Cartia Xt (Diltiazem Hcl) 120 Mg Cap.er.24h 120 Mg PO DAILY 08/26/18 Reported Prednisone (Prednisone) 10 Mg Tablet 40 Mg PO DAILY 30 07/16/18 Rx Klor-Con 10 (Potassium Chloride) 10 Meq Tablet.er 1 Tab PO DAILY 07/16/18 Rx Lasix (Furosemide) 40 Mg Tablet 1 Tab PO DAILY 07/16/18 Rx Aspirin Ec (Aspirin) 81 Mg Tablet. 81 Mg PO DAILYWBKFT 07/16/18 Rx Duoneb 0.5-3(2.5) Mg/3 Ml (Albuterol/Ipratropium) 3 Ml Ampul.neb 3 Ml NEB RTQID 07/01/18 Rx Diltiazem 24HR Cd (Diltiazem Hcl) 120 Mg Cap.er.24h 120 Mg PO DAILY 07/01/18 Rx Wellbutrin Xl (Bupropion Hcl) 150 Mg Tab.er.24h 1 Tab PO DAILY 06/30/18 Reported Omeprazole 40 Mg Capsule. 1 Cap PO 10/25/14 Reported Impression . IMPRESSION: 1. Chronic hypoxic respiratory failure. 2. Pulmonary fibrosis.ON CHRONIC STEROIDS 3. Small-bowel obstruction. S/P SURGERY / likely post-op ileus 4. Other comorbidities as indicated above. PREOPERATIVE DIAGNOSIS: Small bowel obstruction. POSTOPERATIVE DIAGNOSIS: Small bowel obstruction, secondary to adhesive band. PROCEDURE: Diagnostic laparoscopy, followed by laparotomy with release of small-bowel obstruction and decompression of the small bowel. Plan . TPN for nutrition started on soft diet BD, nebulizer treatments incentive spirometry, elevate hob Lovenox, Protonix for prophylaxis Taper IV Steroids, change to PO when he is able to eat discussed w pt AR HINES MD Sep 24, 2018 12:37
--- NOTE | 2018-09-24 13:16 | PDOC ---
PROGRESS NOTES Subjective Subjective Patient feeling slightly better today but having slightly more congested cough. Patient is having some flatus. Objective Objective Vital Signs Date Time Temp Pulse Resp B/P (MAP) Pulse Ox O2 Delivery O2 Flow Rate FiO2 09/24/18 12:49 Nasal Cannula 3.0 09/24/18 11:29 98 09/24/18 11:00 97.9 79 18 117/75 (89) 97.9 Intake and Output 09/24/18 07:00 Output Total 1100 ml Balance -1100 ml Output Urine Total 1100 ml Physical Exam Abdomen: Other (few bowel sounds on right lower quadrant) Heart: Regular rate Extremities: No edema General: Alert Lungs: Other (coarse breath sounds in bases) Assessment Assessment Problems Medical Problems: (1) Generalized weakness Status: Acute Recurrent ileus Small bowel obstruction status post open reduction S/P open lap lysis of adhesion and SBO take down POD #10 Severe Protein Malnutrition Debilitation PAST MEDICAL HISTORY: Significant for: 1. Pulmonary fibrosis. 2. COPD. 3. SVT. 4. Hypertension. 5. Osteoarthritis. 6. Gastroesophageal reflux disease, status post dilatation of stricture. 7. Hypothyroidism. 8. BPH. 9. Ecorr-[id number] diastolic congestive heart failure. 10. Severe protein malnutrition. 11. History of prostate cancer. 12. History of hepatitis C. 13. Major depression. Plan Plan of Care Try clear liquids Continue IV meds until taking by mouth well. Continue TPN Increase activity Await improved bowel function Comment Review of Relevant I have reviewed the following items sherine (where applicable) has been applied. Labs Laboratory Tests Test 09/22/18 16:45 09/22/18 20:40 09/23/18 07:24 09/23/18 11:46 Glucose (Fingerstick) 275 mg/dL (70-99) 336 mg/dL (70-99) 340 mg/dL (70-99) 324 mg/dL (70-99) Test 09/23/18 17:07 09/23/18 21:05 09/24/18 07:18 09/24/18 07:50 Glucose (Fingerstick) 234 mg/dL (70-99) 214 mg/dL (70-99) 276 mg/dL (70-99) Sodium Level 135 mmol/L (136-145) Potassium Level 4.7 mmol/L (3.5-5.1) Chloride Level 98 mmol/L (98-107) Carbon Dioxide Level 33 mmol/L (21-32) Anion Gap 4 (6-14) Blood Urea Nitrogen 28 mg/dL (8-26) Creatinine 0.6 mg/dL (0.7-1.3) Estimated GFR (Cockcroft-Gault) 131.0 Glucose Level 287 mg/dL (70-99) Calcium Level 8.2 mg/dL (8.5-10.1) Phosphorus Level 3.5 mg/dL (2.6-4.7) Magnesium Level 2.3 mg/dL (1.8-2.4) Test 09/24/18 11:00 Glucose (Fingerstick) 237 mg/dL (70-99) Laboratory Tests Test 09/23/18 17:07 09/23/18 21:05 09/24/18 07:18 09/24/18 07:50 Glucose (Fingerstick) 234 mg/dL (70-99) 214 mg/dL (70-99) 276 mg/dL (70-99) Sodium Level 135 mmol/L (136-145) Potassium Level 4.7 mmol/L (3.5-5.1) Chloride Level 98 mmol/L (98-107) Carbon Dioxide Level 33 mmol/L (21-32) Anion Gap 4 (6-14) Blood Urea Nitrogen 28 mg/dL (8-26) Creatinine 0.6 mg/dL (0.7-1.3) Estimated GFR (Cockcroft-Gault) 131.0 Glucose Level 287 mg/dL (70-99) Calcium Level 8.2 mg/dL (8.5-10.1) Phosphorus Level 3.5 mg/dL (2.6-4.7) Magnesium Level 2.3 mg/dL (1.8-2.4) Test 09/24/18 11:00 Glucose (Fingerstick) 237 mg/dL (70-99) Medications Current Medications Famotidine (Pepcid Vial) 20 mg 1X ONCE IVP Last administered on 09/12/18at 18: 07; Start 09/12/18 at 17:45; Stop 09/12/18 at 17:46; Status DC Ondansetron HCl (Zofran) 4 mg 1X ONCE IV Last administered on 09/12/18at 18:07 ; Start 09/12/18 at 17:45; Stop 09/12/18 at 17:46; Status DC Iohexol (Omnipaque 300 Mg/ml) 75 ml 1X ONCE IV Last administered on 09/12/18at 18:35; Start 09/12/18 at 18:30; Stop 09/12/18 at 18:34; Status DC Info (CONTRAST GIVEN -- Rx MONITORING) 1 each PRN DAILY PRN MC SEE COMMENTS; Start 09/12/18 at 18:45; Stop 09/14/18 at 18:44; Status DC Fentanyl Citrate (Fentanyl 2ml Vial) 50 mcg 1X ONCE IV Last administered on 05/21at 20:21; Start 09/12/18 at 20:00; Stop 09/12/18 at 20:01; Status DC Ondansetron HCl (Zofran) 4 mg PRN Q8HRS PRN IV NAUSEA/VOMITING; Start 09/12/18 at 20:30; Stop 09/13/18 at 20:29; Status DC Morphine Sulfate (Morphine Sulfate) 4 mg PRN Q2HR PRN IV PAIN Last administered on 09/13/18at 10:20; Start 09/12/18 at 20:30; Stop 09/13/18 at 20:29 ; Status DC Metronidazole 100 ml @ 100 mls/hr Q8HRS IV Last administered on 09/20/18at 06: 30; Start 09/12/18 at 22:00; Stop 09/20/18 at 10:42; Status DC Ciprofloxacin/ Dextrose 200 ml @ 200 mls/hr 1X ONCE IV Last administered on 22:51; Start 09/12/18 at 20:30; Stop 09/12/18 at 21:29; Status DC Sodium Chloride 1,000 ml @ 75 mls/hr 1X ONCE IV Last administered on at 22:51; Start 09/12/18 at 20:30; Stop 09/13/18 at 09:49; Status DC Budesonide (Pulmicort) 0.5 mg RTBID NEB Last administered on 09/24/18at 07:18; Start 09/13/18 at 09:30 Albuterol/ Ipratropium (Duoneb) 3 ml RTQID NEB Last administered on 09/24/18at 11:28; Start 09/13/18 at 09:30 Methylprednisolone Sodium Succinate (SOLU-Medrol 40MG VIAL) 20 mg DAILY IV Last administered on 09/13/18at 10:21; Start 09/13/18 at 10:00; Stop 09/14/18 at 12:55; Status DC Pantoprazole Sodium (PROTONIX VIAL for IV PUSH) 40 mg DAILYAC IVP Last administered on 09/21/18at 06:34; Start 09/13/18 at 10:00; Stop 09/21/18 at 09:13 ; Status DC Enoxaparin Sodium (Lovenox 40mg Syringe) 40 mg Q24H SQ Last administered on at 09:07; Start 09/13/18 at 10:00 Metoprolol Tartrate (Lopressor Vial) 5 mg Q6HRS IVP Last administered on at 06:41; Start 09/13/18 at 14:00; Stop 09/19/18 at 11:39; Status DC Potassium Chloride/Water 100 ml @ 100 mls/hr Q1H IV Last administered on at 17:10; Start 09/13/18 at 14:00; Stop 09/13/18 at 17:59; Status DC Throat Lozenges (Chloraseptic) 1 spray PRN Q2HR PRN PO SORE THROAT, 2nd choice Last administered on 09/14/18at 13:47; Start 09/13/18 at 16:45 Throat Lozenges (Cepacol Sore Throat Lozenge) 1 deniz PRN Q2HRS PRN PO SORE THROAT, 1st choice Last administered on 09/14/18at 13:46; Start 09/13/18 at 16:45 Aspirin (Aspirin) 300 mg DAILY AR Last administered on 09/17/18at 11:25; Start 09/14/18 at 09:00; Stop 09/18/18 at 13:30; Status DC Morphine Sulfate (Morphine Sulfate) 4 mg PRN Q2HR PRN IV MODERATE PAIN, SEVERE PAIN Last administered on 09/18/18at 21:59; Start 09/13/18 at 21:15; Stop at 09:10; Status DC Barium Sulfate (E-Z-Hd) 680 gm 1X ONCE PO ; Start 09/14/18 at 08:00; Stop 09/14 at 08:01; Status DC Iohexol (Omnipaque 300 Mg/ml) 400 ml 1X ONCE PO Last administered on at 08:00; Start 09/14/18 at 08:00; Stop 09/14/18 at 08:01; Status DC Info (CONTRAST GIVEN -- Rx MONITORING) 1 each PRN DAILY PRN MC SEE COMMENTS; Start 09/14/18 at 08:00; Stop 09/16/18 at 07:59; Status DC Potassium Chloride/Water 100 ml @ 100 mls/hr Q1H IV ; Start 09/14/18 at 09:00; Stop 09/14/18 at 12:59; Status DC Methylprednisolone Sodium Succinate (SOLU-Medrol 125MG VIAL) 125 mg DAILY IV Last administered on 09/20/18at 09:01; Start 09/15/18 at 09:00; Stop 09/20/18 at 13:23; Status DC Info (Tpn Per Pharmacy) 1 each PRN DAILY PRN MC SEE COMMENTS Last administered on 09/14/18at 13:51; Start 09/14/18 at 13:30; Stop 09/14/18 at 14:27; Status DC Info (Tpn Per Pharmacy) 1 each PRN DAILY PRN MC SEE COMMENTS Last administered on 09/18/18at 09:54; Start 09/15/18 at 14:30; Stop 09/19/18 at 11:39; Status DC Amino Acids/ Glycerin/ Electrolytes 1,000 ml @ 80 mls/hr [id number] IV Last administered on 09/15/18at 03:32; Start 09/14/18 at 14:30; Stop 09/15/18 at 21:59 ; Status DC Cefazolin Sodium/ Dextrose 50 ml @ 100 mls/hr 1X PREOP PRN IV protocol Last administered on 09/14/18at 17:40; Start 09/15/18 at 06:00; Stop 09/15/18 at 18:00 ; Status DC Metronidazole 100 ml @ 100 mls/hr 1X PREOP PRN IV protocol; Start 09/15/18 at 06:00; Stop 09/15/18 at 18:00; Status DC Ondansetron HCl (Zofran) 4 mg PRN Q6HRS PRN IV NAUSEA/VOMITING; Start 09/14/18 at 16:00; Stop 09/15/18 at 01:45; Status DC Fentanyl Citrate (Fentanyl 2ml Vial) 25 mcg PRN Q5MIN PRN IV MILD PAIN; Start 09/14/18 at 16:00; Stop 09/15/18 at 01:40; Status DC Fentanyl Citrate (Fentanyl 2ml Vial) 50 mcg PRN Q5MIN PRN IV MODERATE TO SEVERE PAIN Last administered on 09/14/18at 20:27; Start 09/14/18 at 16:00; Stop 09/15/18 at 01:40; Status DC Morphine Sulfate (Morphine Sulfate) 1 mg PRN Q10MIN PRN IV SEVERE PAIN Last administered on 09/14/18at 21:51; Start 09/14/18 at 16:00; Stop 09/15/18 at 01:40 ; Status DC Ringer's Solution 1,000 ml @ 30 mls/hr Q24H IV Last administered on 09/14/18at 21:30; Start 09/14/18 at 15:52; Stop 09/15/18 at 01:40; Status DC Lidocaine HCl (Xylocaine-Mpf 1% 2ml Vial) 2 ml 1X PRN PRN ID IV START; Start at 16:00; Stop 09/15/18 at 15:59; Status DC Hydromorphone HCl (Dilaudid) 0.5 mg PRN Q10MIN PRN IV SEV PAIN, Second choice; Start 09/14/18 at 16:00; Stop 09/15/18 at 01:45; Status DC Prochlorperazine Edisylate (Compazine) 5 mg PACU PRN PRN IV NAUSEA, MRX1 Last administered on 09/14/18at 21:02; Start 09/14/18 at 16:00; Stop 09/15/18 at 01:40 ; Status DC Cefazolin Sodium/ Dextrose 50 ml @ As Directed STK-MED ONCE IV ; Start 09/14/18 at 16:08; Stop 09/14/18 at 16:09; Status DC Propofol 20 ml @ As Directed STK-MED ONCE IV ; Start 09/14/18 at 16:32; Stop 07/21 at 16:33; Status DC Dexamethasone Sodium Phosphate (Decadron) 20 mg STK-MED ONCE .ROUTE ; Start 07/21 at 16:32; Stop 09/14/18 at 16:33; Status DC Lidocaine HCl (Lidocaine Pf 2% Vial) 5 ml STK-MED ONCE .ROUTE ; Start 09/14/18 at 16:32; Stop 09/14/18 at 16:33; Status DC Ondansetron HCl (Zofran) 4 mg STK-MED ONCE .ROUTE ; Start 09/14/18 at 16:32; Stop 09/14/18 at 16:33; Status DC Succinylcholine Chloride (Anectine) 200 mg STK-MED ONCE .ROUTE ; Start 09/14/18 at 16:32; Stop 09/14/18 at 16:33; Status DC Rocuronium [place] (Zemuron) 50 mg STK-MED ONCE .ROUTE ; Start 09/14/18 at 16:32 ; Stop 09/14/18 at 16:33; Status DC Fentanyl Citrate (Fentanyl 2ml Vial) 100 mcg STK-MED ONCE .ROUTE ; Start at 16:32; Stop 09/14/18 at 16:33; Status DC Bupivacaine HCl/ Epinephrine Bitart (Sensorcain-Mpf Epi 0.5%-[id number]) 30 ml STK -MED ONCE .ROUTE Last administered on 09/14/18at 17:57; Start 09/14/18 at 17:18 ; Stop 09/14/18 at 17:19; Status DC Cefazolin Sodium/ Dextrose 50 ml @ As Directed STK-MED ONCE IV ; Start 09/14/18 at 17:28; Stop 09/14/18 at 17:29; Status DC Lidocaine HCl (Glydo (Lidocaine) Jelly) 6 marcel STK-MED ONCE .ROUTE ; Start at 17:43; Stop 09/14/18 at 17:44; Status DC Hydrocortisone Sodium Succinate (Solu-CORTEF) 100 mg STK-MED ONCE .ROUTE ; Start 09/14/18 at 18:08; Stop 09/14/18 at 18:09; Status DC Phenylephrine HCl (Shaw-Synephrine Inj) 10 mg STK-MED ONCE .ROUTE ; Start at 18:11; Stop 09/14/18 at 18:12; Status DC Glycopyrrolate (Robinul) 1 mg STK-MED ONCE .ROUTE ; Start 09/14/18 at 19:05; Stop 09/14/18 at 19:06; Status DC Sevoflurane (Ultane) 60 ml STK-MED ONCE IH ; Start 09/14/18 at 19:23; Stop 09/14 at 19:24; Status DC Enoxaparin Sodium (Lovenox 40mg Syringe) 30 mg Q24H SQ ; Start 09/14/18 at 19:45 ; Status UNV Sodium Chloride (Normal Saline Flush) 3 ml QSHIFT PRN IV AFTER MEDS AND BLOOD DRAWS; Start 09/14/18 at 19:45 Hydromorphone HCl 30 ml @ 0 mls/hr CONT PRN PRN IV PER PROTOCOL Last administered on 09/14/18at 20:25; Start 09/14/18 at 19:45; Stop 09/15/18 at 08:34 ; Status DC Ondansetron HCl (Zofran) 4 mg PRN Q6HRS PRN IV NAUESA, 1ST CHOICE Last administered on 09/22/18at 08:47; Start 09/14/18 at 19:45 Ringer's Solution 1,000 ml @ 75 mls/hr [id number] IV Last administered on at 21:00; Start 09/14/18 at 21:00; Stop 09/15/18 at 01:45; Status DC Lorazepam (Ativan) 0.5 mg PRN Q6HRS PRN IV ANXIETY / AGITATION; Start 09/14/18 at 22:15 Albumin Human 250 ml @ 83.3 mls/hr 1X ONCE IV Last administered on 09/15/18at 01:15; Start 09/15/18 at 01:00; Stop 09/15/18 at 04:00; Status DC Hydromorphone HCl (Dilaudid) 0.5 mg PRN Q3HRS PRN IV MILD PAIN Last administered on 09/24/18at 12:49; Start 09/15/18 at 08:30 Albumin Human 500 ml @ 125 mls/hr 1X ONCE IV Last administered on 09/15/18at 10:23; Start 09/15/18 at 09:00; Stop 09/15/18 at 12:59; Status DC Sodium Chloride 250 ml @ 500 mls/hr 1X ONCE IV Last administered on at 11:00; Start 09/15/18 at 11:00; Stop 09/15/18 at 11:29; Status DC Sodium Chloride 1,000 ml @ 100 mls/hr Q10H IV Last administered on 09/15/18at 11:30; Start 09/15/18 at 11:30; Stop 09/15/18 at 22:00; Status DC Sodium Chloride 1,000 ml @ 75 mls/hr [id number] IV Last administered on at 00:12; Start 09/15/18 at 22:00; Stop 09/17/18 at 12:12; Status DC Sodium Acetate 90 meq/Potassium Chloride 50 meq/ Potassium Phosphate 3.4 mmol/ Magnesium Sulfate 10 meq/ Calcium Gluconate 10 meq/ Multivitamins 10 ml/Chromium / Copper/Manganese/ Seleni/Zn 1 ml/ Total Parenteral Nutrition/Amino Acids/ Dextrose/ Fat Emulsion Intravenous 1,512 ml @ 63 mls/hr TPN CONT IV Last administered on 09/15/18at 21:43; Start 09/15/18 at 22:00; Stop 09/16/18 at 21:59 ; Status DC Lidocaine/Sodium Bicarbonate (Buffered Lidocaine 1%) 3 ml STK-MED ONCE .ROUTE ; Start 09/15/18 at 14:35; Stop 09/15/18 at 14:36; Status DC Heparin Sodium/ Sodium Chloride 500 ml @ As Directed STK-MED ONCE .ROUTE ; Start 09/15/18 at 14:35; Stop 09/15/18 at 14:36; Status DC Heparin Sodium/ Sodium Chloride 500 ml @ As Directed STK-MED ONCE .ROUTE ; Start 09/15/18 at 14:36; Stop 09/15/18 at 14:37; Status DC Heparin Sodium/ Sodium Chloride (HEPARIN for ARTERIAL LINE FLUSH) 1,000 unit 1X ONCE IART Last administered on 09/15/18at 15:15; Start 09/15/18 at 15:15; Stop 09/15/18 at 15:16; Status DC Lidocaine/Sodium Bicarbonate (Buffered Lidocaine 1%) 3 ml 1X ONCE IJ Last administered on 09/15/18at 15:15; Start 09/15/18 at 15:15; Stop 09/15/18 at 15:16 ; Status DC Potassium Phosphate 13.6 mmol/Dextrose 104.5333 ml @ 52.267 m... 1X ONCE IV Last administered on 09/16/18at 09:53; Start 09/16/18 at 10:00; Stop 09/16/18 at 11:59; Status DC Sodium Acetate 90 meq/Potassium Chloride 50 meq/ Potassium Phosphate 15 mmol/ Magnesium Sulfate 10 meq/Calcium Gluconate 10 meq/ Multivitamins 10 ml/Chromium / Copper/Manganese/ Seleni/Zn 1 ml/ Total Parenteral Nutrition/Amino Acids/ Dextrose/ Fat Emulsion Intravenous 1,512 ml @ 63 mls/hr TPN CONT IV Last administered on 09/16/18at 21:49; Start 09/16/18 at 22:00; Stop 09/17/18 at 21:59 ; Status DC Albuterol/ Ipratropium (Duoneb) 3 ml RTQID NEB ; Start 09/16/18 at 12:00; Stop 09/16/18 at 12:00; Status DC Sodium Chloride 1,000 ml @ 75 mls/hr [id number] IV Last administered on at 06:20; Start 09/17/18 at 13:00; Stop 09/19/18 at 11:39; Status DC Potassium Phosphate 13.6 mmol/Dextrose 104.5333 ml @ 52.267 m... ONCE ONCE IV Last administered on 09/17/18at 14:14; Start 09/17/18 at 13:00; Stop 09/17/18 at 14:59; Status DC Sodium Acetate 90 meq/Potassium Acetate 40 meq/ Potassium Phosphate 20.4 mmol/ Magnesium Sulfate 10 meq/ Calcium Gluconate 10 meq/ Multivitamins 10 ml/Chromium / Copper/Manganese/ Seleni/Zn 1 ml/ Total Parenteral Nutrition/Amino Acids/ Dextrose/ Fat Emulsion Intravenous 1,512 ml @ 63 mls/hr TPN CONT IV Last administered on 09/17/18at 23:14; Start 09/17/18 at 22:00; Stop 09/18/18 at 21:59 ; Status DC Sodium Acetate 90 meq/Potassium Acetate 40 meq/ Potassium Phosphate 20.4 mmol/ Magnesium Sulfate 10 meq/ Calcium Gluconate 10 meq/ Multivitamins 10 ml/Chromium / Copper/Manganese/ Seleni/Zn 1 ml/ Total Parenteral Nutrition/Amino Acids/ Dextrose/ Fat Emulsion Intravenous 1,512 ml @ 63 mls/hr TPN CONT IV Last administered on 09/18/18at 21:51; Start 09/18/18 at 22:00; Stop 09/19/18 at 11:39 ; Status DC Aspirin (Ecotrin) 325 mg DAILYWBKFT PO Last administered on 09/22/18 08:45; Start 09/18/18 at 13:30 Acetaminophen/ Hydrocodone Bitart (Lortab 10/325) 1 tab PRN Q6HRS PRN PO PAIN Last administered on 09/21/18 21:06; Start 09/19/18 at 10:15 Levothyroxine Sodium (Synthroid) 88 mcg DAILY06 PO Last administered on 05:48; Start 09/19/18 at 15:30 Diltiazem HCl (Cardizem 24hr Cd) 120 mg DAILY PO Last administered on 08:45; Start 09/19/18 at 12:00 Info (Tpn Per Pharmacy) 1 each PRN DAILY PRN MC SEE COMMENTS Last administered on 09/24/18 12:37; Start 09/20/18 at 11:30 Sodium Acetate 90 meq/Potassium Acetate 40 meq/ Potassium Phosphate 20.4 mmol/ Magnesium Sulfate 10 meq/ Calcium Gluconate 10 meq/ Multivitamins 10 ml/Chromium / Copper/Manganese/ Seleni/Zn 1 ml/ Total Parenteral Nutrition/Amino Acids/ Dextrose/ Fat Emulsion Intravenous 1,512 ml @ 63 mls/hr TPN CONT IV Last administered on 09/20/18 21:23; Start 09/20/18 at 22:00; Stop 09/21/18 at 21:59 ; Status DC Methylprednisolone Sodium Succinate (SOLU-Medrol 125MG VIAL) 60 mg DAILY IV ; Start 09/21/18 at 09:00; Stop 09/21/18 at 09:10; Status DC Insulin Human Lispro (HumaLOG) 0-5 UNITS TIDWMEALS SQ ; Start 09/21/18 at 08:00 ; Stop 09/21/18 at 09:08; Status DC Dextrose (Dextrose 50%-Water Syringe) 12.5 gm PRN Q15MIN PRN IV SEE COMMENTS; Start 09/21/18 at 00:00 Insulin Human Lispro (HumaLOG) 0-12 UNITS QIDACHS SQ Last administered on at 09:16; Start 09/21/18 at 11:30 Prednisone (Prednisone) 40 mg DAILY PO Last administered on 09/22/18at 08:44; Start 09/21/18 at 10:00; Stop 09/24/18 at 09:22; Status DC Pantoprazole Sodium (Protonix) 40 mg DAILYAC PO Last administered on 09/22/18at 07:01; Start 09/22/18 at 07:30; Stop 09/24/18 at 09:21; Status DC Sodium Acetate 90 meq/Potassium Acetate 40 meq/ Potassium Phosphate 20.4 mmol/ Magnesium Sulfate 10 meq/ Calcium Gluconate 10 meq/ Multivitamins 10 ml/Chromium / Copper/Manganese/ Seleni/Zn 1 ml/ Total Parenteral Nutrition/Amino Acids/ Dextrose/ Fat Emulsion Intravenous 1,512 ml @ 63 mls/hr TPN CONT IV Last administered on 09/21/18at 21:07; Start 09/21/18 at 22:00; Stop 09/22/18 at 21:59 ; Status DC Sertraline HCl (Zoloft) 25 mg QHS PO Last administered on 09/21/18at 21:06; Start 09/21/18 at 21:00 Sodium Acetate 90 meq/Potassium Acetate 40 meq/ Potassium Phosphate 20.4 mmol/ Magnesium Sulfate 10 meq/ Calcium Gluconate 10 meq/ Multivitamins 10 ml/Chromium / Copper/Manganese/ Seleni/Zn 1 ml/ Total Parenteral Nutrition/Amino Acids/ Dextrose/ Fat Emulsion Intravenous 1,512 ml @ 63 mls/hr TPN CONT IV Last administered on 09/22/18at 21:11; Start 09/22/18 at 22:00; Stop 09/23/18 at 21:59 ; Status DC Sodium Acetate 90 meq/Potassium Acetate 40 meq/ Potassium Phosphate 20.4 mmol/ Magnesium Sulfate 10 meq/ Calcium Gluconate 10 meq/ Multivitamins 10 ml/Chromium / Copper/Manganese/ Seleni/Zn 1 ml/ Insulin Human Regular 10 unit/ Total Parenteral Nutrition/Amino Acids/Dextrose/ Fat Emuls... 1,512 ml @ 63 mls/hr TPN CONT IV Last administered on 09/23/18at 21:22; Start 09/23/18 at 22:00; Stop 09/24/18 at 21:59 Insulin Human Lispro (HumaLOG) 5 units Q6HRS SQ Last administered on 09/23/18at 18:06; Start 09/23/18 at 18:00 Pantoprazole Sodium (PROTONIX VIAL for IV PUSH) 40 mg 1X ONCE IVP Last administered on 09/23/18at 13:03; Start 09/23/18 at 12:30; Stop 09/23/18 at 12:31 ; Status DC Methylprednisolone Sodium Succinate (SOLU-Medrol 40MG VIAL) 40 mg 1X ONCE IV Last administered on 09/23/18at 13:03; Start 09/23/18 at 12:30; Stop 09/23/18 at 12:31; Status DC Pantoprazole Sodium (PROTONIX VIAL for IV PUSH) 40 mg 1X ONCE IVP Last administered on 09/24/18at 09:07; Start 09/24/18 at 08:00; Stop 09/24/18 at 08:02 ; Status DC Methylprednisolone Sodium Succinate (SOLU-Medrol 40MG VIAL) 40 mg DAILY IV Last administered on 09/24/18at 09:32; Start 09/24/18 at 10:00 Pantoprazole Sodium (PROTONIX VIAL for IV PUSH) 40 mg DAILYAC IVP ; Start at 10:00 Sodium Acetate 90 meq/Potassium Chloride 20 meq/ Potassium Phosphate 20.4 mmol/ Magnesium Sulfate 10 meq/ Calcium Gluconate 10 meq/ Multivitamins 10 ml/Chromium / Copper/Manganese/ Seleni/Zn 1 ml/ Insulin Human Regular 10 unit/ Total Parenteral Nutrition/Amino Acids/Dextrose/ Fat Emuls... 1,512 ml @ 63 mls/hr TPN CONT IV ; Start 09/24/18 at 22:00; Stop 09/25/18 at 21:59 Active Scripts Active Magnesium Chloride 70 Mg Tablet.dr 64 Mg PO DAILY 30 Days Synthroid (Levothyroxine Sodium) 88 Mcg Tablet 88 Mcg PO DAILY06 30 Days Prednisone 20 Mg Tablet 20 Mg PO DAILY 30 Days Budesonide 0.5 Mg/2 Ml Ampul.neb 0.5 Mg NEB RTBID 30 Days Diltiazem 24HR Cd (Diltiazem Hcl) 180 Mg Cap.er.24h 180 Mg PO DAILY 90 Days Prednisone (Prednisone) 10 Mg Tablet 40 Mg PO DAILY 30 Days Klor-Con 10 (Potassium Chloride) 10 Meq Tablet.er 1 Tab PO DAILY Lasix (Furosemide) 40 Mg Tablet 1 Tab PO DAILY Aspirin Ec (Aspirin) 81 Mg Tablet.dr 81 Mg PO DAILYWBKFT 30 Days Duoneb 0.5-3(2.5) Mg/3 Ml (Albuterol/Ipratropium) 3 Ml Ampul.neb 3 Ml NEB RTQID 30 Days Diltiazem 24HR Cd (Diltiazem Hcl) 120 Mg Cap.er.24h 120 Mg PO DAILY 30 Days Reported Hydrocodone-Apap 7.5-325 (Hydrocodone Bit/Acetaminophen) 1 Tab Tablet 1 Tab PO PRN Q6HRS PRN Prednisolone Sodium Phosphate (Prednisolone Sod Phosphate) 15 Mg/5 Ml Solution 15 Mg PO DAILY Omeprazole 40 Mg Capsule.dr 40 Mg PO DAILY Cartia Xt (Diltiazem Hcl) 120 Mg Cap.er.24h 120 Mg PO DAILY Wellbutrin Xl (Bupropion Hcl) 150 Mg Tab.er.24h 1 Tab PO DAILY Omeprazole 40 Mg Capsule.dr 1 Cap PO Vitals/I & O Vital Sign - Last 24 Hours 09/23/18 09/23/18 09/23/18 09/23/18 15:00 15:27 15:45 19:15 Temp 97.9 98.1 97.9 98.1 Pulse 63 83 Resp 16 20 B/P (MAP) 117/69 (85) 112/65 (81) Pulse Ox 92 93 O2 Delivery Room Air Nasal Cannula Nasal Cannula Nasal Cannula O2 Flow Rate 2.0 2.0 3.0 09/23/18 09/23/18 09/23/18 09/23/18 19:20 20:00 22:40 22:49 Temp 97.8 97.8 Pulse 85 Resp 22 B/P (MAP) 123/75 (91) Pulse Ox 93 93 99 O2 Delivery Nasal Cannula Nasal Cannula Nasal Cannula Nasal Cannula O2 Flow Rate 3.0 3.0 3.0 3.0 09/23/18 09/24/18 09/24/18 09/24/18 23:10 03:14 07:00 07:20 Temp 97.4 97.8 97.4 97.8 Pulse 73 69 Resp 22 16 B/P (MAP) 134/75 (94) 120/85 (97) Pulse Ox 99 98 93 100 O2 Delivery Nasal Cannula Nasal Cannula Nasal Cannula O2 Flow Rate 3.0 3.0 3.0 09/24/18 09/24/18 09/24/18 09/24/18 07:35 09:32 10:05 11:00 Temp 97.9 97.9 Pulse 79 Resp 18 B/P (MAP) 117/75 (89) Pulse Ox 98 O2 Delivery Nasal Cannula Nasal Cannula Nasal Cannula Room Air O2 Flow Rate 3.0 3.0 3.0 09/24/18 09/24/18 11:29 12:49 Pulse Ox 98 O2 Delivery Nasal Cannula Nasal Cannula O2 Flow Rate 3.0 3.0 Intake and Output 09/23/18 09/23/18 09/24/18 15:00 23:00 07:00 Output Total 400 ml 400 ml 300 ml Balance -400 ml -400 ml -300 ml Nutrition Consultation Dietary Evaluation: Recommendations by RD: PPN/TPN Comments: REC continue TPN per followin grams dextrose, 65 grams AA, 20 grams lipid advance diet when able Expected Outcomes/Goals: TPN for nutrition needs s/p abdominal surgery until po intake tolerated w/ solid foods Interpretation of weight loss: >5% in 1 month Malnutrition Findings: Food and Nutrition Intake (Sev: <50% est energy req 5days Weight Status: Underweight LOURDES POLLOCK MD Sep 24, 2018 13:16
[2018-09-24 15:00] VITALS: BP 107/72
--- NOTE | 2018-09-24 18:45 | NUR ---
At approximately 1745, Pt was sitting up on the side of the bed reporting that he must have spilled something on himself because his gown was really wet. Upon taking a closer look, this nurse noticed that Pt's gown, pull up brief and draw sheet had a significant amount of serosanguineous drainage. Pt was assisted to a standing position in order to get him cleaned up and fluid was leaking from his midline incision. Large dressing applied, Pt assisted back to bed after linens were changed, Dr Lizandro rivera. Orders received for a CT of the abdomen with oral and IV contrast and to apply a large dressing with an abdominal binder. Orders entered, information passed on to incoming RN. Pt denies pain or discomfort.
[2018-09-24] MEDS ORDERED: IOHEXOL 300 MG/ML 100ML VIAL. IV ONE (19:00)
[2018-09-24 19:15] VITALS: BP 121/66
[2018-09-24] MEDS ORDERED: CONTRAST GIVEN. MC PRN (19:15)
--- NOTE | 2018-09-24 20:30 | NUR ---
Abdominal dressing changed. Kyle are intact, small "trickle" of serosanguinous drainage at distal end. Binder applied. To CT per WC and O2, accompanied by GAURAV Banda. Patient is weak and debilitated.
--- NOTE | 2018-09-24 21:06 | RAD ---
PQRS Compliance Statement: One or more of the following individualized dose reduction techniques were utilized for this examination: 1. Automated exposure control 2. Adjustment of the mA and/or kV according to patient size 3. Use of iterative reconstruction technique CT abdomen with contrast September 24, 2018 INDICATION: Excessive drainage from previously dry surgical incision. COMPARISON: CT abdomen/pelvis September 12, 2018, June 11, 2018 TECHNIQUE: Multiple axial CT images of the abdomen were obtained after the intravenous administration of 75 cc Omnipaque 300. Coronal and sagittal reformats are provided. FINDINGS: Lower lung zone predominant subpleural interstitial changes are identified with honeycombing at the lung bases. There is traction bronchiectasis. Findings are most suggestive of usual interstitial pneumonia or fibrotic nonspecific interstitial pneumonia. Findings are stable. Heart size is enlarged. There is a small hiatal hernia. The liver, spleen, bilateral adrenal glands, pancreas, gallbladder and kidneys are normal. Abdominal aorta is normal in caliber with dense calcified atheromatous plaque. Oral contrast was administered. There are dilated small bowel loops in the left central abdomen measuring up to 6.5 cm. Oral contrast is identified within the colon although this may be from remote CTs as recently ingested oral contrast terminates in the proximal duodenum. Incision site is identified along the ventral abdomen without a definite abscess. The entire incision is not included. Superior endplate compression deformities are identified at T9 and T10 with subtle increased sclerosis which may reflect subacute findings. Superior endplate compression deformities at T12 and L1 are also new from June 11, 2018. IMPRESSION: 1. No definite fluid collection is identified along the central midline abdominal incision. Note, the entire incision is not included on this examination. 2. Dilated small bowel loops may reflect ileus the recent postoperative setting. Short-term follow-up radiographs may be of benefit. 3. Superior endplate compression deformities at T9, T10, T12 and L1 are new from June 11, 2018 10 not significantly changed since prior examination from September 12, 2018. 4. Chronic interstitial changes are noted at the lung bases most favoring UIP. Electronically signed by: Mer Cody MD (09/24/2018 9:02 PM) [facility]
--- NOTE | 2018-09-24 21:19 | PDOC ---
SURGICAL PROGRESS NOTE Subjective Called to evaluate pt with large amount of serous drainage from wound. Pt without new c/o. Vital Signs Vital Signs Date Time Temp Pulse Resp B/P (MAP) Pulse Ox O2 Delivery O2 Flow Rate FiO2 09/24/18 19:15 97.3 74 18 121/66 (84) 95 Nasal Cannula 3.0 97.3 I&O Intake and Output 09/24/18 07:00 Output Total 1100 ml Balance -1100 ml Output Urine Total 1100 ml General: Alert, Oriented X3, Cooperative, No acute distress, Other (appears fatigued) Abdomen: Soft, No tenderness, Other (incision c/d/i with mya in place, no evisceration noted, serous drainage) Labs Laboratory Tests Test 09/23/18 07:24 09/23/18 11:46 09/23/18 17:07 09/23/18 21:05 Glucose (Fingerstick) 340 mg/dL (70-99) 324 mg/dL (70-99) 234 mg/dL (70-99) 214 mg/dL (70-99) Test 09/24/18 07:18 09/24/18 07:50 09/24/18 11:00 09/24/18 17:09 Sodium Level 135 mmol/L (136-145) Potassium Level 4.7 mmol/L (3.5-5.1) Chloride Level 98 mmol/L (98-107) Carbon Dioxide Level 33 mmol/L (21-32) Anion Gap 4 (6-14) Blood Urea Nitrogen 28 mg/dL (8-26) Creatinine 0.6 mg/dL (0.7-1.3) Estimated GFR (Cockcroft-Gault) 131.0 Glucose Level 287 mg/dL (70-99) Calcium Level 8.2 mg/dL (8.5-10.1) Phosphorus Level 3.5 mg/dL (2.6-4.7) Magnesium Level 2.3 mg/dL (1.8-2.4) Glucose (Fingerstick) 276 mg/dL (70-99) 237 mg/dL (70-99) 327 mg/dL (70-99) Test 09/24/18 21:02 Glucose (Fingerstick) 218 mg/dL (70-99) Laboratory Tests Test 09/24/18 07:18 09/24/18 07:50 09/24/18 11:00 09/24/18 17:09 Sodium Level 135 mmol/L (136-145) Potassium Level 4.7 mmol/L (3.5-5.1) Chloride Level 98 mmol/L (98-107) Carbon Dioxide Level 33 mmol/L (21-32) Anion Gap 4 (6-14) Blood Urea Nitrogen 28 mg/dL (8-26) Creatinine 0.6 mg/dL (0.7-1.3) Estimated GFR (Cockcroft-Gault) 131.0 Glucose Level 287 mg/dL (70-99) Calcium Level 8.2 mg/dL (8.5-10.1) Phosphorus Level 3.5 mg/dL (2.6-4.7) Magnesium Level 2.3 mg/dL (1.8-2.4) Glucose (Fingerstick) 276 mg/dL (70-99) 237 mg/dL (70-99) 327 mg/dL (70-99) Test 09/24/18 21:02 Glucose (Fingerstick) 218 mg/dL (70-99) I have reviewed the following CT obtained which demonstrates small bowel dilation, but no obvious evisceration although CT does not show entire incision Problem List Problems Medical Problems: (1) Generalized weakness Status: Acute Assessment/Plan Will maintain binder and close evaluation will reevaluate to consider repeat imaging or exam in OR. MIKAELA TABARES MD Sep 24, 2018 21:19
[2018-09-24] MEDS: SERTRALINE 25 MG TABLET. PO SCH (21:24)
[2018-09-24] MEDS: HYDROcodone/APAP 10/325 1 TAB TABLET PO PRN (21:25)
[2018-09-24] MEDS ORDERED: TOTAL PARENTERAL NUTRITION IV SCH ×11 (22:00)
[2018-09-24] MEDS ORDERED: DEXTROSE 70% IV SCH ×11 (22:00)
[2018-09-24] MEDS ORDERED: AMINO ACID IV SCH ×11 (22:00)
[2018-09-24] MEDS ORDERED: [UNRECOGNIZED DRUG - OTHER] IV SCH ×11 (22:00)
[2018-09-24 23:02] VITALS: BP 111/72
[2018-09-25] MEDS: INSULIN LISPRO 300 UNITS/3 ML INSULN.PEN. SQ SCH ×8 (00:12→21:00)
--- NOTE | 2018-09-25 00:22 | NUR ---
Abdominal dressing changed again due to increased drainage. Patient states binder was too tight and has undone it. Refuses to turn in bed.
[2018-09-25 03:00] VITALS: BP 117/72
[2018-09-25 05:02] LABS: CALCIUM 8.4 mg/dL (8.5-10.1); CREATININE 0.6 mg/dL (0.7-1.3); POTASSIUM 4.3 mmol/L (3.5-5.1)
[2018-09-25] MEDS: PANTOPRAZOLE IV PUSH 40 MG VIAL. IVP SCH (06:02)
[2018-09-25] MEDS: LEVOTHYROXINE 88 MCG TABLET PO SCH (06:04)
--- NOTE | 2018-09-25 06:11 | NUR ---
Abdominal dressing D/I. Has weak loose cough, scant amounts of clear sputum. Patient sleeps when not disturbed. Medicated for "back pain" last noc upon return from CT.
[2018-09-25 07:00] VITALS: BP 101/69
--- NOTE | 2018-09-25 07:20 | PDOC ---
PULMONARY PROGRESS NOTES Subjective no soa, has occ cough No bm but passing gas Vitals Vital Signs Date Time Temp Pulse Resp B/P (MAP) Pulse Ox O2 Delivery O2 Flow Rate FiO2 09/25/18 03:00 98.1 78 18 117/72 (87) 96 Nasal Cannula 3.0 98.1 ROS: No Chest Pain General: Alert, No acute distress HEENT: Other (nc at perrl) Lungs: Crackles (BASES) Cardiovascular: S1, S2 Abdomen: Soft, Non-tender, Other (distended) Neuro Exam: Alert, Oriented Extremities: No Edema, Other Skin: Warm Labs Laboratory Tests Test 09/23/18 07:24 09/23/18 11:46 09/23/18 17:07 09/23/18 21:05 Glucose (Fingerstick) 340 mg/dL (70-99) 324 mg/dL (70-99) 234 mg/dL (70-99) 214 mg/dL (70-99) Test 09/24/18 07:18 09/24/18 07:50 09/24/18 11:00 09/24/18 17:09 Sodium Level 135 mmol/L (136-145) Potassium Level 4.7 mmol/L (3.5-5.1) Chloride Level 98 mmol/L (98-107) Carbon Dioxide Level 33 mmol/L (21-32) Anion Gap 4 (6-14) Blood Urea Nitrogen 28 mg/dL (8-26) Creatinine 0.6 mg/dL (0.7-1.3) Estimated GFR (Cockcroft-Gault) 131.0 Glucose Level 287 mg/dL (70-99) Calcium Level 8.2 mg/dL (8.5-10.1) Phosphorus Level 3.5 mg/dL (2.6-4.7) Magnesium Level 2.3 mg/dL (1.8-2.4) Glucose (Fingerstick) 276 mg/dL (70-99) 237 mg/dL (70-99) 327 mg/dL (70-99) Test 09/24/18 21:02 09/25/18 00:03 09/25/18 02:51 09/25/18 04:30 Glucose (Fingerstick) 218 mg/dL (70-99) 101 mg/dL (70-99) 87 mg/dL (70-99) Sodium Level 137 mmol/L (136-145) Potassium Level 4.3 mmol/L (3.5-5.1) Chloride Level 98 mmol/L (98-107) Carbon Dioxide Level 33 mmol/L (21-32) Anion Gap 6 (6-14) Blood Urea Nitrogen 27 mg/dL (8-26) Creatinine 0.6 mg/dL (0.7-1.3) Estimated GFR (Cockcroft-Gault) 131.0 Glucose Level 121 mg/dL (70-99) Calcium Level 8.4 mg/dL (8.5-10.1) Test 09/25/18 06:01 Glucose (Fingerstick) 141 mg/dL (70-99) Laboratory Tests Test 09/24/18 07:50 09/24/18 11:00 09/24/18 17:09 09/24/18 21:02 Glucose (Fingerstick) 276 mg/dL (70-99) 237 mg/dL (70-99) 327 mg/dL (70-99) 218 mg/dL (70-99) Test 09/25/18 00:03 09/25/18 02:51 09/25/18 04:30 09/25/18 06:01 Glucose (Fingerstick) 101 mg/dL (70-99) 87 mg/dL (70-99) 141 mg/dL (70-99) Sodium Level 137 mmol/L (136-145) Potassium Level 4.3 mmol/L (3.5-5.1) Chloride Level 98 mmol/L (98-107) Carbon Dioxide Level 33 mmol/L (21-32) Anion Gap 6 (6-14) Blood Urea Nitrogen 27 mg/dL (8-26) Creatinine 0.6 mg/dL (0.7-1.3) Estimated GFR (Cockcroft-Gault) 131.0 Glucose Level 121 mg/dL (70-99) Calcium Level 8.4 mg/dL (8.5-10.1) Medications Active Scripts Medications Dose Route/Sig Max Daily Dose Days Date Category Magnesium Chloride 70 Mg Tablet.dr 64 Mg PO DAILY 08/30/18 Rx Synthroid (Levothyroxine Sodium) 88 Mcg Tablet 88 Mcg PO DAILY06 08/30/18 Rx Prednisone 20 Mg Tablet 20 Mg PO DAILY 08/30/18 Rx Budesonide 0.5 Mg/2 Ml Ampul.neb 0.5 Mg NEB RTBID 30 08/30/18 Rx Diltiazem 24HR Cd (Diltiazem Hcl) 180 Mg Cap.er.24h 180 Mg PO DAILY 90 08/30/18 Rx Hydrocodone-Apap 7.5-325 (Hydrocodone Bit/Acetaminophen) 1 Tab Tablet 1 Tab PO PRN Q6HRS PRN 08/26/18 Reported Prednisolone Sodium Phosphate (Prednisolone Sod Phosphate) 15 Mg/5 Ml Solution 15 Mg PO DAILY 08/26/18 Reported Omeprazole 40 Mg Capsule. 40 Mg PO DAILY 08/26/18 Reported Cartia Xt (Diltiazem Hcl) 120 Mg Cap.er.24h 120 Mg PO DAILY 08/26/18 Reported Prednisone (Prednisone) 10 Mg Tablet 40 Mg PO DAILY 30 07/16/18 Rx Klor-Con 10 (Potassium Chloride) 10 Meq Tablet.er 1 Tab PO DAILY 07/16/18 Rx Lasix (Furosemide) 40 Mg Tablet 1 Tab PO DAILY 07/16/18 Rx Aspirin Ec (Aspirin) 81 Mg Tablet. 81 Mg PO DAILYWBKFT 30 07/16/18 Rx Duoneb 0.5-3(2.5) Mg/3 Ml (Albuterol/Ipratropium) 3 Ml Ampul.neb 3 Ml NEB RTQID 30 07/01/18 Rx Diltiazem 24HR Cd (Diltiazem Hcl) 120 Mg Cap.er.24h 120 Mg PO DAILY 30 07/01/18 Rx Wellbutrin Xl (Bupropion Hcl) 150 Mg Tab.er.24h 1 Tab PO DAILY 06/30/18 Reported Omeprazole 40 Mg Capsule. 1 Cap PO 10/25/14 Reported Impression . IMPRESSION: 1. Chronic hypoxic respiratory failure. 2. Pulmonary fibrosis.ON CHRONIC STEROIDS 3. Small-bowel obstruction. S/P SURGERY / likely post-op ileus 4. Other comorbidities as indicated above. PREOPERATIVE DIAGNOSIS: Small bowel obstruction. POSTOPERATIVE DIAGNOSIS: Small bowel obstruction, secondary to adhesive band. PROCEDURE: Diagnostic laparoscopy, followed by laparotomy with release of small-bowel obstruction and decompression of the small bowel. Plan . TPN for nutrition diet per surgery BD, nebulizer treatments incentive spirometry, elevate hob Lovenox, Protonix for prophylaxis change solumedrol to 20 mg daily, change to PO when he is able to eat discussed w pt MYA WALDROP MD Sep 25, 2018 07:20
[2018-09-25] MEDS: ASPIRIN ENTERIC COATED 325 MG TABLET.DR. PO SCH (08:00)
[2018-09-25] MEDS: methylPREDNISolone SOD SUCC PF 40 MG/ML VIAL. IV SCH (08:01)
[2018-09-25] MEDS: HYDROmorphone 2 MG/ML VIAL IV PRN ×3 (08:01→21:50)
[2018-09-25] MEDS: BUDESONIDE 0.5 MG/2 ML NEBU. NEB SCH ×2 (08:12→19:28)
[2018-09-25] MEDS: IPRATRPIUM/ALBUTEROL 0.5/2.5MG 3 ML NEBU. NEB SCH ×4 (08:12→19:28)
[2018-09-25] MEDS ORDERED: IOHEXOL 300 MG/ML 100ML VIAL. IV ONE (09:00)
[2018-09-25] MEDS ORDERED: IOHEXOL 240 MG/ML 50ML VIAL. PO ONE (09:00)
[2018-09-25] MEDS ORDERED: CONTRAST GIVEN. MC PRN (09:00)
--- NOTE | 2018-09-25 10:50 | RAD ---
PQRS Compliance statement: One or more of the following individualized dose reduction techniques were utilized for this examination: 1. Automated exposure control. 2. Adjustment of the mA and/or kV according to patient size. 3. Use of iterative reconstruction technique. Indication:evisceration omni 300 75ml omni 240 30ml prior sent TECHNIQUE: CT abdomen and pelvis with IV contrast and oral with multiplanar reformats. COMPARISON: 09/24/2018. FINDINGS: Heart is moderately enlarged in size. Coronary artery calcifications. Partially visualized is a central venous catheter at the cavoatrial junction. Bibasilar patchy opacities are seen with consolidations right more than left. Stable 1.2 cm low attenuating lesion is seen in segment 7 of the liver. No new liver lesions. Spleen, gallbladder, pancreas, adrenals and kidneys are within normal limits. Trace amount of free pelvic fluid. No ascites. Oral contrast is seen opacifying the colon. The jejunum is dilated measuring 5.4 cm not significant changed compared to previous exam. Anterior midline abdominal wall surgical mya are seen. No pneumoperitoneum. Urinary bladder is opacified with excreted contrast. Moderate diffuse atherosclerotic disease of the abdominal aorta and bilateral iliac arteries. No suspicious bony lesion. Stable mild anterior compression deformity of the T12, T9 and T10 vertebral body. IMPRESSION: 1. Bibasilar consolidation in the lungs may be secondary to atelectasis or pneumonia superimposed on interstitial lung disease. 2. Dilated jejunal loop may be secondary to ileus or obstruction. Findings not significant changed when compared to previous exam. 3. Stable segment 7 liver lesion, nonspecific but has been present since July 2017 and most likely a benign entity given interval stability. Electronically signed by: Benny Hill DO (09/25/2018 10:47 AM) [facility]
[2018-09-25 11:00] VITALS: BP 102/60
--- NOTE | 2018-09-25 12:15 | PDOC ---
PROGRESS NOTES Subjective Subjective Patient tired of being in hospital. Some flatus, breathing OK. Objective Objective Vital Signs Date Time Temp Pulse Resp B/P (MAP) Pulse Ox O2 Delivery O2 Flow Rate FiO2 09/25/18 11:49 Nasal Cannula 3.0 09/25/18 08:13 98 09/25/18 08:01 77 101/69 09/25/18 07:00 97.7 18 97.7 Intake and Output 09/25/18 06:59 Intake Total 360 ml Output Total 550 ml Balance -190 ml Intake Oral 360 ml Output Urine Total 550 ml # Voids 3 Physical Exam Abdomen: Soft, Other (few BS present, large dressing in place over abdominal incision) Heart: Regular rate Extremities: No edema General: Alert, Oriented X3, No acute distress Lungs: Other (BS decreased throughout, fine crackles bilateral bases) Assessment Assessment Problems Medical Problems: (1) Generalized weakness Status: Acute Plan Plan of Care 1. SBO, POD #11 - stable. Still has post-operative ileus. CT abdomen and pelvis without acute findings. Continue postoperative care, on TPN but able to take some meds po. 2. chronic respiratory failure with pulmonary fibrosis - stable, continue O2, nebs and Solumedrol daily. 3. HTN - controlled, continue present medication. 4. hypothyroidism - stable, continue his usual Levothyroxine po. Comment Review of Relevant I have reviewed the following items sherine (where applicable) has been applied. Labs Laboratory Tests Test 09/23/18 17:07 09/23/18 21:05 09/24/18 07:18 09/24/18 07:50 Glucose (Fingerstick) 234 mg/dL (70-99) 214 mg/dL (70-99) 276 mg/dL (70-99) Sodium Level 135 mmol/L (136-145) Potassium Level 4.7 mmol/L (3.5-5.1) Chloride Level 98 mmol/L (98-107) Carbon Dioxide Level 33 mmol/L (21-32) Anion Gap 4 (6-14) Blood Urea Nitrogen 28 mg/dL (8-26) Creatinine 0.6 mg/dL (0.7-1.3) Estimated GFR (Cockcroft-Gault) 131.0 Glucose Level 287 mg/dL (70-99) Calcium Level 8.2 mg/dL (8.5-10.1) Phosphorus Level 3.5 mg/dL (2.6-4.7) Magnesium Level 2.3 mg/dL (1.8-2.4) Test 09/24/18 11:00 09/24/18 17:09 09/24/18 21:02 09/25/18 00:03 Glucose (Fingerstick) 237 mg/dL (70-99) 327 mg/dL (70-99) 218 mg/dL (70-99) 101 mg/dL (70-99) Test 09/25/18 02:51 09/25/18 04:30 09/25/18 06:01 09/25/18 07:21 Glucose (Fingerstick) 87 mg/dL (70-99) 141 mg/dL (70-99) 87 mg/dL (70-99) Sodium Level 137 mmol/L (136-145) Potassium Level 4.3 mmol/L (3.5-5.1) Chloride Level 98 mmol/L (98-107) Carbon Dioxide Level 33 mmol/L (21-32) Anion Gap 6 (6-14) Blood Urea Nitrogen 27 mg/dL (8-26) Creatinine 0.6 mg/dL (0.7-1.3) Estimated GFR (Cockcroft-Gault) 131.0 Glucose Level 121 mg/dL (70-99) Calcium Level 8.4 mg/dL (8.5-10.1) Laboratory Tests Test 09/24/18 17:09 09/24/18 21:02 09/25/18 00:03 09/25/18 02:51 Glucose (Fingerstick) 327 mg/dL (70-99) 218 mg/dL (70-99) 101 mg/dL (70-99) 87 mg/dL (70-99) Test 09/25/18 04:30 09/25/18 06:01 09/25/18 07:21 Sodium Level 137 mmol/L (136-145) Potassium Level 4.3 mmol/L (3.5-5.1) Chloride Level 98 mmol/L (98-107) Carbon Dioxide Level 33 mmol/L (21-32) Anion Gap 6 (6-14) Blood Urea Nitrogen 27 mg/dL (8-26) Creatinine 0.6 mg/dL (0.7-1.3) Estimated GFR (Cockcroft-Gault) 131.0 Glucose Level 121 mg/dL (70-99) Calcium Level 8.4 mg/dL (8.5-10.1) Glucose (Fingerstick) 141 mg/dL (70-99) 87 mg/dL (70-99) Medications Current Medications Famotidine (Pepcid Vial) 20 mg 1X ONCE IVP Last administered on 09/12/18 18: 07; Start 09/12/18 at 17:45; Stop 09/12/18 at 17:46; Status DC Ondansetron HCl (Zofran) 4 mg 1X ONCE IV Last administered on 09/12/18at 18:07 ; Start 09/12/18 at 17:45; Stop 09/12/18 at 17:46; Status DC Iohexol (Omnipaque 300 Mg/ml) 75 ml 1X ONCE IV Last administered on 09/12/18at 18:35; Start 09/12/18 at 18:30; Stop 09/12/18 at 18:34; Status DC Info (CONTRAST GIVEN -- Rx MONITORING) 1 each PRN DAILY PRN MC SEE COMMENTS; Start 09/12/18 at 18:45; Stop 09/14/18 at 18:44; Status DC Fentanyl Citrate (Fentanyl 2ml Vial) 50 mcg 1X ONCE IV Last administered on 05/21at 20:21; Start 09/12/18 at 20:00; Stop 09/12/18 at 20:01; Status DC Ondansetron HCl (Zofran) 4 mg PRN Q8HRS PRN IV NAUSEA/VOMITING; Start 09/12/18 at 20:30; Stop 09/13/18 at 20:29; Status DC Morphine Sulfate (Morphine Sulfate) 4 mg PRN Q2HR PRN IV PAIN Last administered on 09/13/18at 10:20; Start 09/12/18 at 20:30; Stop 09/13/18 at 20:29 ; Status DC Metronidazole 100 ml @ 100 mls/hr Q8HRS IV Last administered on 09/20/18at 06: 30; Start 09/12/18 at 22:00; Stop 09/20/18 at 10:42; Status DC Ciprofloxacin/ Dextrose 200 ml @ 200 mls/hr 1X ONCE IV Last administered on at 22:51; Start 09/12/18 at 20:30; Stop 09/12/18 at 21:29; Status DC Sodium Chloride 1,000 ml @ 75 mls/hr 1X ONCE IV Last administered on 22:51; Start 09/12/18 at 20:30; Stop 09/13/18 at 09:49; Status DC Budesonide (Pulmicort) 0.5 mg RTBID NEB Last administered on 09/25/18 08:12; Start 09/13/18 at 09:30 Albuterol/ Ipratropium (Duoneb) 3 ml RTQID NEB Last administered on 09/25/18 11:49; Start 09/13/18 at 09:30 Methylprednisolone Sodium Succinate (SOLU-Medrol 40MG VIAL) 20 mg DAILY IV Last administered on 09/13/18at 10:21; Start 09/13/18 at 10:00; Stop 09/14/18 at 12:55; Status DC Pantoprazole Sodium (PROTONIX VIAL for IV PUSH) 40 mg DAILYAC IVP Last administered on 09/21/18 06:34; Start 09/13/18 at 10:00; Stop 09/21/18 at 09:13 ; Status DC Enoxaparin Sodium (Lovenox 40mg Syringe) 40 mg Q24H SQ Last administered on 09:07; Start 09/13/18 at 10:00 Metoprolol Tartrate (Lopressor Vial) 5 mg Q6HRS IVP Last administered on 06:41; Start 09/13/18 at 14:00; Stop 09/19/18 at 11:39; Status DC Potassium Chloride/Water 100 ml @ 100 mls/hr Q1H IV Last administered on 17:10; Start 09/13/18 at 14:00; Stop 09/13/18 at 17:59; Status DC Throat Lozenges (Chloraseptic) 1 spray PRN Q2HR PRN PO SORE THROAT, 2nd choice Last administered on 09/14/18at 13:47; Start 09/13/18 at 16:45 Throat Lozenges (Cepacol Sore Throat Lozenge) 1 deniz PRN Q2HRS PRN PO SORE THROAT, 1st choice Last administered on 2/12/19at 13:46; Start 09/13/18 at 16:45 Aspirin (Aspirin) 300 mg DAILY MA Last administered on 09/17/18at 11:25; Start 09/14/18 at 09:00; Stop 09/18/18 at 13:30; Status DC Morphine Sulfate (Morphine Sulfate) 4 mg PRN Q2HR PRN IV MODERATE PAIN, SEVERE PAIN Last administered on 09/18/18at 21:59; Start 09/13/18 at 21:15; Stop at 09:10; Status DC Barium Sulfate (E-Z-Hd) 680 gm 1X ONCE PO ; Start 09/14/18 at 08:00; Stop 09/14 at 08:01; Status DC Iohexol (Omnipaque 300 Mg/ml) 400 ml 1X ONCE PO Last administered on at 08:00; Start 09/14/18 at 08:00; Stop 09/14/18 at 08:01; Status DC Info (CONTRAST GIVEN -- Rx MONITORING) 1 each PRN DAILY PRN MC SEE COMMENTS; Start 09/14/18 at 08:00; Stop 09/16/18 at 07:59; Status DC Potassium Chloride/Water 100 ml @ 100 mls/hr Q1H IV ; Start 09/14/18 at 09:00; Stop 09/14/18 at 12:59; Status DC Methylprednisolone Sodium Succinate (SOLU-Medrol 125MG VIAL) 125 mg DAILY IV Last administered on 09/20/18at 09:01; Start 09/15/18 at 09:00; Stop 09/20/18 at 13:23; Status DC Info (Tpn Per Pharmacy) 1 each PRN DAILY PRN MC SEE COMMENTS Last administered on 09/14/18 13:51; Start 09/14/18 at 13:30; Stop 09/14/18 at 14:27; Status DC Info (Tpn Per Pharmacy) 1 each PRN DAILY PRN MC SEE COMMENTS Last administered on 09/18/18 09:54; Start 09/15/18 at 14:30; Stop 09/19/18 at 11:39; Status DC Amino Acids/ Glycerin/ Electrolytes 1,000 ml @ 80 mls/hr [id number] IV Last administered on 09/15/18at 03:32; Start 09/14/18 at 14:30; Stop 09/15/18 at 21:59 ; Status DC Cefazolin Sodium/ Dextrose 50 ml @ 100 mls/hr 1X PREOP PRN IV protocol Last administered on 09/14/18at 17:40; Start 09/15/18 at 06:00; Stop 09/15/18 at 18:00 ; Status DC Metronidazole 100 ml @ 100 mls/hr 1X PREOP PRN IV protocol; Start 09/15/18 at 06:00; Stop 09/15/18 at 18:00; Status DC Ondansetron HCl (Zofran) 4 mg PRN Q6HRS PRN IV NAUSEA/VOMITING; Start 09/14/18 at 16:00; Stop 09/15/18 at 01:45; Status DC Fentanyl Citrate (Fentanyl 2ml Vial) 25 mcg PRN Q5MIN PRN IV MILD PAIN; Start 09/14/18 at 16:00; Stop 09/15/18 at 01:40; Status DC Fentanyl Citrate (Fentanyl 2ml Vial) 50 mcg PRN Q5MIN PRN IV MODERATE TO SEVERE PAIN Last administered on 09/14/18at 20:27; Start 09/14/18 at 16:00; Stop 09/15/18 at 01:40; Status DC Morphine Sulfate (Morphine Sulfate) 1 mg PRN Q10MIN PRN IV SEVERE PAIN Last administered on 09/14/18at 21:51; Start 09/14/18 at 16:00; Stop 09/15/18 at 01:40 ; Status DC Ringer's Solution 1,000 ml @ 30 mls/hr Q24H IV Last administered on 09/14/18at 21:30; Start 09/14/18 at 15:52; Stop 09/15/18 at 01:40; Status DC Lidocaine HCl (Xylocaine-Mpf 1% 2ml Vial) 2 ml 1X PRN PRN ID IV START; Start at 16:00; Stop 09/15/18 at 15:59; Status DC Hydromorphone HCl (Dilaudid) 0.5 mg PRN Q10MIN PRN IV SEV PAIN, Second choice; Start 09/14/18 at 16:00; Stop 09/15/18 at 01:45; Status DC Prochlorperazine Edisylate (Compazine) 5 mg PACU PRN PRN IV NAUSEA, MRX1 Last administered on 09/14/18at 21:02; Start 09/14/18 at 16:00; Stop 09/15/18 at 01:40 ; Status DC Cefazolin Sodium/ Dextrose 50 ml @ As Directed STK-MED ONCE IV ; Start 09/14/18 at 16:08; Stop 09/14/18 at 16:09; Status DC Propofol 20 ml @ As Directed STK-MED ONCE IV ; Start 09/14/18 at 16:32; Stop 07/21 at 16:33; Status DC Dexamethasone Sodium Phosphate (Decadron) 20 mg STK-MED ONCE .ROUTE ; Start 07/21 at 16:32; Stop 09/14/18 at 16:33; Status DC Lidocaine HCl (Lidocaine Pf 2% Vial) 5 ml STK-MED ONCE .ROUTE ; Start 09/14/18 at 16:32; Stop 09/14/18 at 16:33; Status DC Ondansetron HCl (Zofran) 4 mg STK-MED ONCE .ROUTE ; Start 09/14/18 at 16:32; Stop 09/14/18 at 16:33; Status DC Succinylcholine Chloride (Anectine) 200 mg STK-MED ONCE .ROUTE ; Start 09/14/18 at 16:32; Stop 09/14/18 at 16:33; Status DC Rocuronium [place] (Zemuron) 50 mg STK-MED ONCE .ROUTE ; Start 09/14/18 at 16:32 ; Stop 09/14/18 at 16:33; Status DC Fentanyl Citrate (Fentanyl 2ml Vial) 100 mcg STK-MED ONCE .ROUTE ; Start at 16:32; Stop 09/14/18 at 16:33; Status DC Bupivacaine HCl/ Epinephrine Bitart (Sensorcain-Mpf Epi 0.5%-[id number]) 30 ml STK -MED ONCE .ROUTE Last administered on 09/14/18at 17:57; Start 09/14/18 at 17:18 ; Stop 09/14/18 at 17:19; Status DC Cefazolin Sodium/ Dextrose 50 ml @ As Directed STK-MED ONCE IV ; Start 09/14/18 at 17:28; Stop 09/14/18 at 17:29; Status DC Lidocaine HCl (Glydo (Lidocaine) Jelly) 6 marcel STK-MED ONCE .ROUTE ; Start at 17:43; Stop 09/14/18 at 17:44; Status DC Hydrocortisone Sodium Succinate (Solu-CORTEF) 100 mg STK-MED ONCE .ROUTE ; Start 09/14/18 at 18:08; Stop 09/14/18 at 18:09; Status DC Phenylephrine HCl (Shaw-Synephrine Inj) 10 mg STK-MED ONCE .ROUTE ; Start at 18:11; Stop 09/14/18 at 18:12; Status DC Glycopyrrolate (Robinul) 1 mg STK-MED ONCE .ROUTE ; Start 09/14/18 at 19:05; Stop 09/14/18 at 19:06; Status DC Sevoflurane (Ultane) 60 ml STK-MED ONCE IH ; Start 09/14/18 at 19:23; Stop 09/14 at 19:24; Status DC Enoxaparin Sodium (Lovenox 40mg Syringe) 30 mg Q24H SQ ; Start 09/14/18 at 19:45 ; Status UNV Sodium Chloride (Normal Saline Flush) 3 ml QSHIFT PRN IV AFTER MEDS AND BLOOD DRAWS; Start 09/14/18 at 19:45 Hydromorphone HCl 30 ml @ 0 mls/hr CONT PRN PRN IV PER PROTOCOL Last administered on 09/14/18at 20:25; Start 09/14/18 at 19:45; Stop 09/15/18 at 08:34 ; Status DC Ondansetron HCl (Zofran) 4 mg PRN Q6HRS PRN IV NAUESA, 1ST CHOICE Last administered on 09/22/18at 08:47; Start 09/14/18 at 19:45 Ringer's Solution 1,000 ml @ 75 mls/hr [id number] IV Last administered on at 21:00; Start 09/14/18 at 21:00; Stop 09/15/18 at 01:45; Status DC Lorazepam (Ativan) 0.5 mg PRN Q6HRS PRN IV ANXIETY / AGITATION; Start 09/14/18 at 22:15 Albumin Human 250 ml @ 83.3 mls/hr 1X ONCE IV Last administered on 09/15/18at 01:15; Start 09/15/18 at 01:00; Stop 09/15/18 at 04:00; Status DC Hydromorphone HCl (Dilaudid) 0.5 mg PRN Q3HRS PRN IV MILD PAIN Last administered on 09/25/18at 08:01; Start 09/15/18 at 08:30 Albumin Human 500 ml @ 125 mls/hr 1X ONCE IV Last administered on 09/15/18at 10:23; Start 09/15/18 at 09:00; Stop 09/15/18 at 12:59; Status DC Sodium Chloride 250 ml @ 500 mls/hr 1X ONCE IV Last administered on at 11:00; Start 09/15/18 at 11:00; Stop 09/15/18 at 11:29; Status DC Sodium Chloride 1,000 ml @ 100 mls/hr Q10H IV Last administered on 09/15/18at 11:30; Start 09/15/18 at 11:30; Stop 09/15/18 at 22:00; Status DC Sodium Chloride 1,000 ml @ 75 mls/hr [id number] IV Last administered on at 00:12; Start 09/15/18 at 22:00; Stop 09/17/18 at 12:12; Status DC Sodium Acetate 90 meq/Potassium Chloride 50 meq/ Potassium Phosphate 3.4 mmol/ Magnesium Sulfate 10 meq/ Calcium Gluconate 10 meq/ Multivitamins 10 ml/Chromium / Copper/Manganese/ Seleni/Zn 1 ml/ Total Parenteral Nutrition/Amino Acids/ Dextrose/ Fat Emulsion Intravenous 1,512 ml @ 63 mls/hr TPN CONT IV Last administered on 09/15/18at 21:43; Start 09/15/18 at 22:00; Stop 09/16/18 at 21:59 ; Status DC Lidocaine/Sodium Bicarbonate (Buffered Lidocaine 1%) 3 ml STK-MED ONCE .ROUTE ; Start 09/15/18 at 14:35; Stop 09/15/18 at 14:36; Status DC Heparin Sodium/ Sodium Chloride 500 ml @ As Directed STK-MED ONCE .ROUTE ; Start 09/15/18 at 14:35; Stop 09/15/18 at 14:36; Status DC Heparin Sodium/ Sodium Chloride 500 ml @ As Directed STK-MED ONCE .ROUTE ; Start 09/15/18 at 14:36; Stop 09/15/18 at 14:37; Status DC Heparin Sodium/ Sodium Chloride (HEPARIN for ARTERIAL LINE FLUSH) 1,000 unit 1X ONCE IART Last administered on 09/15/18at 15:15; Start 09/15/18 at 15:15; Stop 09/15/18 at 15:16; Status DC Lidocaine/Sodium Bicarbonate (Buffered Lidocaine 1%) 3 ml 1X ONCE IJ Last administered on 09/15/18at 15:15; Start 09/15/18 at 15:15; Stop 09/15/18 at 15:16 ; Status DC Potassium Phosphate 13.6 mmol/Dextrose 104.5333 ml @ 52.267 m... 1X ONCE IV Last administered on 09/16/18at 09:53; Start 09/16/18 at 10:00; Stop 09/16/18 at 11:59; Status DC Sodium Acetate 90 meq/Potassium Chloride 50 meq/ Potassium Phosphate 15 mmol/ Magnesium Sulfate 10 meq/Calcium Gluconate 10 meq/ Multivitamins 10 ml/Chromium / Copper/Manganese/ Seleni/Zn 1 ml/ Total Parenteral Nutrition/Amino Acids/ Dextrose/ Fat Emulsion Intravenous 1,512 ml @ 63 mls/hr TPN CONT IV Last administered on 09/16/18at 21:49; Start 09/16/18 at 22:00; Stop 09/17/18 at 21:59 ; Status DC Albuterol/ Ipratropium (Duoneb) 3 ml RTQID NEB ; Start 09/16/18 at 12:00; Stop 09/16/18 at 12:00; Status DC Sodium Chloride 1,000 ml @ 75 mls/hr [id number] IV Last administered on at 06:20; Start 09/17/18 at 13:00; Stop 09/19/18 at 11:39; Status DC Potassium Phosphate 13.6 mmol/Dextrose 104.5333 ml @ 52.267 m... ONCE ONCE IV Last administered on 09/17/18at 14:14; Start 09/17/18 at 13:00; Stop 09/17/18 at 14:59; Status DC Sodium Acetate 90 meq/Potassium Acetate 40 meq/ Potassium Phosphate 20.4 mmol/ Magnesium Sulfate 10 meq/ Calcium Gluconate 10 meq/ Multivitamins 10 ml/Chromium / Copper/Manganese/ Seleni/Zn 1 ml/ Total Parenteral Nutrition/Amino Acids/ Dextrose/ Fat Emulsion Intravenous 1,512 ml @ 63 mls/hr TPN CONT IV Last administered on 09/17/18at 23:14; Start 09/17/18 at 22:00; Stop 09/18/18 at 21:59 ; Status DC Sodium Acetate 90 meq/Potassium Acetate 40 meq/ Potassium Phosphate 20.4 mmol/ Magnesium Sulfate 10 meq/ Calcium Gluconate 10 meq/ Multivitamins 10 ml/Chromium / Copper/Manganese/ Seleni/Zn 1 ml/ Total Parenteral Nutrition/Amino Acids/ Dextrose/ Fat Emulsion Intravenous 1,512 ml @ 63 mls/hr TPN CONT IV Last administered on 09/18/18at 21:51; Start 09/18/18 at 22:00; Stop 09/19/18 at 11:39 ; Status DC Aspirin (Ecotrin) 325 mg DAILYWBKFT PO Last administered on 09/22/18 08:45; Start 09/18/18 at 13:30 Acetaminophen/ Hydrocodone Bitart (Lortab 10/325) 1 tab PRN Q6HRS PRN PO PAIN Last administered on 09/24/18at 21:25; Start 09/19/18 at 10:15 Levothyroxine Sodium (Synthroid) 88 mcg DAILY06 PO Last administered on 06:04; Start 09/19/18 at 15:30 Diltiazem HCl (Cardizem 24hr Cd) 120 mg DAILY PO Last administered on 08:45; Start 09/19/18 at 12:00 Info (Tpn Per Pharmacy) 1 each PRN DAILY PRN MC SEE COMMENTS Last administered on 09/24/18at 12:37; Start 09/20/18 at 11:30 Sodium Acetate 90 meq/Potassium Acetate 40 meq/ Potassium Phosphate 20.4 mmol/ Magnesium Sulfate 10 meq/ Calcium Gluconate 10 meq/ Multivitamins 10 ml/Chromium / Copper/Manganese/ Seleni/Zn 1 ml/ Total Parenteral Nutrition/Amino Acids/ Dextrose/ Fat Emulsion Intravenous 1,512 ml @ 63 mls/hr TPN CONT IV Last administered on 09/20/18at 21:23; Start 09/20/18 at 22:00; Stop 09/21/18 at 21:59 ; Status DC Methylprednisolone Sodium Succinate (SOLU-Medrol 125MG VIAL) 60 mg DAILY IV ; Start 09/21/18 at 09:00; Stop 09/21/18 at 09:10; Status DC Insulin Human Lispro (HumaLOG) 0-5 UNITS TIDWMEALS SQ ; Start 09/21/18 at 08:00 ; Stop 09/21/18 at 09:08; Status DC Dextrose (Dextrose 50%-Water Syringe) 12.5 gm PRN Q15MIN PRN IV SEE COMMENTS; Start 09/21/18 at 00:00 Insulin Human Lispro (HumaLOG) 0-12 UNITS QIDACHS SQ Last administered on at 21:39; Start 09/21/18 at 11:30 Prednisone (Prednisone) 40 mg DAILY PO Last administered on 09/22/18at 08:44; Start 09/21/18 at 10:00; Stop 09/24/18 at 09:22; Status DC Pantoprazole Sodium (Protonix) 40 mg DAILYAC PO Last administered on 09/22/18at 07:01; Start 09/22/18 at 07:30; Stop 09/24/18 at 09:21; Status DC Sodium Acetate 90 meq/Potassium Acetate 40 meq/ Potassium Phosphate 20.4 mmol/ Magnesium Sulfate 10 meq/ Calcium Gluconate 10 meq/ Multivitamins 10 ml/Chromium / Copper/Manganese/ Seleni/Zn 1 ml/ Total Parenteral Nutrition/Amino Acids/ Dextrose/ Fat Emulsion Intravenous 1,512 ml @ 63 mls/hr TPN CONT IV Last administered on 09/21/18at 21:07; Start 09/21/18 at 22:00; Stop 09/22/18 at 21:59 ; Status DC Sertraline HCl (Zoloft) 25 mg QHS PO Last administered on 09/24/18at 21:24; Start 09/21/18 at 21:00 Sodium Acetate 90 meq/Potassium Acetate 40 meq/ Potassium Phosphate 20.4 mmol/ Magnesium Sulfate 10 meq/ Calcium Gluconate 10 meq/ Multivitamins 10 ml/Chromium / Copper/Manganese/ Seleni/Zn 1 ml/ Total Parenteral Nutrition/Amino Acids/ Dextrose/ Fat Emulsion Intravenous 1,512 ml @ 63 mls/hr TPN CONT IV Last administered on 09/22/18at 21:11; Start 09/22/18 at 22:00; Stop 09/23/18 at 21:59 ; Status DC Sodium Acetate 90 meq/Potassium Acetate 40 meq/ Potassium Phosphate 20.4 mmol/ Magnesium Sulfate 10 meq/ Calcium Gluconate 10 meq/ Multivitamins 10 ml/Chromium / Copper/Manganese/ Seleni/Zn 1 ml/ Insulin Human Regular 10 unit/ Total Parenteral Nutrition/Amino Acids/Dextrose/ Fat Emuls... 1,512 ml @ 63 mls/hr TPN CONT IV Last administered on 09/23/18at 21:22; Start 09/23/18 at 22:00; Stop 09/24/18 at 21:59; Status DC Insulin Human Lispro (HumaLOG) 5 units Q6HRS SQ Last administered on 09/25/18at 06:10; Start 09/23/18 at 18:00 Pantoprazole Sodium (PROTONIX VIAL for IV PUSH) 40 mg 1X ONCE IVP Last administered on 09/23/18at 13:03; Start 09/23/18 at 12:30; Stop 09/23/18 at 12:31 ; Status DC Methylprednisolone Sodium Succinate (SOLU-Medrol 40MG VIAL) 40 mg 1X ONCE IV Last administered on 09/23/18at 13:03; Start 09/23/18 at 12:30; Stop 09/23/18 at 12:31; Status DC Pantoprazole Sodium (PROTONIX VIAL for IV PUSH) 40 mg 1X ONCE IVP Last administered on 09/24/18at 09:07; Start 09/24/18 at 08:00; Stop 09/24/18 at 08:02 ; Status DC Methylprednisolone Sodium Succinate (SOLU-Medrol 40MG VIAL) 40 mg DAILY IV Last administered on 09/25/18at 08:01; Start 09/24/18 at 10:00; Stop 09/25/18 at 10:07; Status DC Pantoprazole Sodium (PROTONIX VIAL for IV PUSH) 40 mg DAILYAC IVP Last administered on 09/25/18at 06:02; Start 09/24/18 at 10:00 Sodium Acetate 90 meq/Potassium Chloride 20 meq/ Potassium Phosphate 20.4 mmol/ Magnesium Sulfate 10 meq/ Calcium Gluconate 10 meq/ Multivitamins 10 ml/Chromium / Copper/Manganese/ Seleni/Zn 1 ml/ Insulin Human Regular 10 unit/ Total Parenteral Nutrition/Amino Acids/Dextrose/ Fat Emuls... 1,512 ml @ 63 mls/hr TPN CONT IV Last administered on 09/24/18at 21:32; Start 09/24/18 at 22:00; Stop 09/25/18 at 21:59 Iohexol (Omnipaque 300 Mg/ml) 75 ml 1X ONCE IV Last administered on 09/24/18at 20:50; Start 09/24/18 at 19:00; Stop 09/24/18 at 19:01; Status DC Info (CONTRAST GIVEN -- Rx MONITORING) 1 each PRN DAILY PRN MC SEE COMMENTS; Start 09/24/18 at 19:15; Stop 09/26/18 at 19:14 Iohexol (Omnipaque 240 Mg/ml) 30 ml 1X ONCE PO Last administered on 09/25/18at 09:00; Start 09/25/18 at 09:00; Stop 09/25/18 at 09:01; Status DC Iohexol (Omnipaque 300 Mg/ml) 75 ml 1X ONCE IV Last administered on 09/25/18at 09:00; Start 09/25/18 at 09:00; Stop 09/25/18 at 09:01; Status DC Info (CONTRAST GIVEN -- Rx MONITORING) 1 each PRN DAILY PRN MC SEE COMMENTS; Start 09/25/18 at 09:00; Stop 09/27/18 at 08:59 Methylprednisolone Sodium Succinate (SOLU-Medrol 40MG VIAL) 20 mg DAILY IV ; Start 09/26/18 at 09:00 Active Scripts Active Magnesium Chloride 70 Mg Tablet. 64 Mg PO DAILY 30 Days Synthroid (Levothyroxine Sodium) 88 Mcg Tablet 88 Mcg PO DAILY06 30 Days Prednisone 20 Mg Tablet 20 Mg PO DAILY 30 Days Budesonide 0.5 Mg/2 Ml Ampul.neb 0.5 Mg NEB RTBID 30 Days Diltiazem 24HR Cd (Diltiazem Hcl) 180 Mg Cap.er.24h 180 Mg PO DAILY 90 Days Prednisone (Prednisone) 10 Mg Tablet 40 Mg PO DAILY 30 Days Klor-Con 10 (Potassium Chloride) 10 Meq Tablet.er 1 Tab PO DAILY Lasix (Furosemide) 40 Mg Tablet 1 Tab PO DAILY Aspirin Ec (Aspirin) 81 Mg Tablet. 81 Mg PO DAILYWBKFT 30 Days Duoneb 0.5-3(2.5) Mg/3 Ml (Albuterol/Ipratropium) 3 Ml Ampul.neb 3 Ml NEB RTQID 30 Days Diltiazem 24HR Cd (Diltiazem Hcl) 120 Mg Cap.er.24h 120 Mg PO DAILY 30 Days Reported Hydrocodone-Apap 7.5-325 (Hydrocodone Bit/Acetaminophen) 1 Tab Tablet 1 Tab PO PRN Q6HRS PRN Prednisolone Sodium Phosphate (Prednisolone Sod Phosphate) 15 Mg/5 Ml Solution 15 Mg PO DAILY Omeprazole 40 Mg Capsule.dr 40 Mg PO DAILY Cartia Xt (Diltiazem Hcl) 120 Mg Cap.er.24h 120 Mg PO DAILY Wellbutrin Xl (Bupropion Hcl) 150 Mg Tab.er.24h 1 Tab PO DAILY Omeprazole 40 Mg Capsule. 1 Cap PO Vitals/I & O Vital Sign - Last 24 Hours 09/24/18 09/24/18 09/24/18 09/24/18 12:49 15:00 19:15 20:00 Temp 98.3 97.3 98.3 97.3 Pulse 66 74 Resp 16 18 B/P (MAP) 107/72 (84) 121/66 (84) Pulse Ox 99 95 O2 Delivery Nasal Cannula Room Air Nasal Cannula Nasal Cannula O2 Flow Rate 3.0 3.0 3.0 09/24/18 09/24/18 09/24/18 09/25/18 21:25 22:30 23:02 03:00 Temp 97.9 98.1 97.9 98.1 Pulse 93 78 Resp 20 20 18 18 B/P (MAP) 111/72 (85) 117/72 (87) Pulse Ox 96 96 O2 Delivery Nasal Cannula Nasal Cannula Nasal Cannula O2 Flow Rate 3.0 3.0 3.0 09/25/18 09/25/18 09/25/18 09/25/18 07:00 08:01 08:01 08:13 Temp 97.7 97.7 Pulse 77 77 Resp 18 B/P (MAP) 101/69 (80) 101/69 Pulse Ox 97 96 98 O2 Delivery Nasal Cannula Nasal Cannula Nasal Cannula O2 Flow Rate 3.0 3.0 3.0 09/25/18 09/25/18 09/25/18 08:30 08:45 11:49 O2 Delivery Nasal Cannula Nasal Cannula Nasal Cannula O2 Flow Rate 3.0 3.0 3.0 Intake and Output 09/24/18 09/24/18 09/25/18 14:59 22:59 06:59 Intake Total 360 ml Output Total 200 ml 350 ml Balance -200 ml 10 ml Nutrition Consultation Dietary Evaluation: Recommendations by RD: PPN/TPN Comments: REC continue TPN per followin grams dextrose, 65 grams AA, 20 grams lipid advance diet when able Expected Outcomes/Goals: TPN for nutrition needs s/p abdominal surgery until po intake tolerated w/ solid foods Interpretation of weight loss: >5% in 1 month Malnutrition Findings: Food and Nutrition Intake (Sev: <50% est energy req 5days Weight Status: Underweight KIM REGAN MD Sep 25, 2018 12:15
[2018-09-25] MEDS: ENOXAPARIN 40 MG/0.4 ML SYRINGE. SQ SCH (12:25)
[2018-09-25] MEDS: TPN PER PHARMACY MC PRN (12:37)
--- NOTE | 2018-09-25 12:39 | NUR ---
Pharmacy TPN Dosing Note S: JOHN ROBBINS is a 78 year old M Currently receiving Central Continuous TPN started 09/15/18 B:Pertinent PMH: SBO Height: 5 feet, 10 inches Weight: 60.1 kg Current diet: clears LABS: Sodium: 137 Potassium: 4.3 Chloride: 98 Calcium: 8.4 Corrected Calcium: 9.84 Magnesium: 2.3 CO2: 33 SCr: 0.6 Glucose: 87-151 Albumin: 2.2 AST: 27 ALT: 38 TPN FORMULA: TPN TYPE: Central Continuous AMINO ACIDS: 65 gm DEXTROSE: 225 gm LIPIDS: 20 gm SODIUM ACETATE: 90 mEq POTASSIUM CHLORIDE: 20 mEq POTASSIUM PHOSPHATE: 20.4 mmol MAGNESIUM: 10 mEq CALCIUM: 10 mEq MULTIPLE VITAMIN: 10 ml TRACE ELEMENTS: 1 ml TPN PLAN: Continue same formula today R: Continue TPN Will monitor electrolytes, glucose, and tolerance to TPN. Yuki Wilhelm RPH, 09/25/18 [id number]
--- NOTE | 2018-09-25 14:42 | PDOC ---
SURGICAL PROGRESS NOTE Subjective Pt on toilet, passing some flatus Vital Signs Vital Signs Date Time Temp Pulse Resp B/P (MAP) Pulse Ox O2 Delivery O2 Flow Rate FiO2 09/25/18 11:49 Nasal Cannula 3.0 09/25/18 11:00 98.6 86 18 102/60 (74) 99 98.6 I&O Intake and Output 09/25/18 07:00 Intake Total 360 ml Output Total 550 ml Balance -190 ml Intake Oral 360 ml Output Urine Total 550 ml # Voids 3 General: Alert, No acute distress Labs Laboratory Tests Test 09/23/18 17:07 09/23/18 21:05 09/24/18 07:18 09/24/18 07:50 Glucose (Fingerstick) 234 mg/dL (70-99) 214 mg/dL (70-99) 276 mg/dL (70-99) Sodium Level 135 mmol/L (136-145) Potassium Level 4.7 mmol/L (3.5-5.1) Chloride Level 98 mmol/L (98-107) Carbon Dioxide Level 33 mmol/L (21-32) Anion Gap 4 (6-14) Blood Urea Nitrogen 28 mg/dL (8-26) Creatinine 0.6 mg/dL (0.7-1.3) Estimated GFR (Cockcroft-Gault) 131.0 Glucose Level 287 mg/dL (70-99) Calcium Level 8.2 mg/dL (8.5-10.1) Phosphorus Level 3.5 mg/dL (2.6-4.7) Magnesium Level 2.3 mg/dL (1.8-2.4) Test 09/24/18 11:00 09/24/18 17:09 09/24/18 21:02 09/25/18 00:03 Glucose (Fingerstick) 237 mg/dL (70-99) 327 mg/dL (70-99) 218 mg/dL (70-99) 101 mg/dL (70-99) Test 09/25/18 02:51 09/25/18 04:30 09/25/18 06:01 09/25/18 07:21 Glucose (Fingerstick) 87 mg/dL (70-99) 141 mg/dL (70-99) 87 mg/dL (70-99) Sodium Level 137 mmol/L (136-145) Potassium Level 4.3 mmol/L (3.5-5.1) Chloride Level 98 mmol/L (98-107) Carbon Dioxide Level 33 mmol/L (21-32) Anion Gap 6 (6-14) Blood Urea Nitrogen 27 mg/dL (8-26) Creatinine 0.6 mg/dL (0.7-1.3) Estimated GFR (Cockcroft-Gault) 131.0 Glucose Level 121 mg/dL (70-99) Calcium Level 8.4 mg/dL (8.5-10.1) Test 09/25/18 11:14 Glucose (Fingerstick) 151 mg/dL (70-99) Laboratory Tests Test 09/24/18 17:09 09/24/18 21:02 09/25/18 00:03 09/25/18 02:51 Glucose (Fingerstick) 327 mg/dL (70-99) 218 mg/dL (70-99) 101 mg/dL (70-99) 87 mg/dL (70-99) Test 09/25/18 04:30 09/25/18 06:01 09/25/18 07:21 09/25/18 11:14 Sodium Level 137 mmol/L (136-145) Potassium Level 4.3 mmol/L (3.5-5.1) Chloride Level 98 mmol/L (98-107) Carbon Dioxide Level 33 mmol/L (21-32) Anion Gap 6 (6-14) Blood Urea Nitrogen 27 mg/dL (8-26) Creatinine 0.6 mg/dL (0.7-1.3) Estimated GFR (Cockcroft-Gault) 131.0 Glucose Level 121 mg/dL (70-99) Calcium Level 8.4 mg/dL (8.5-10.1) Glucose (Fingerstick) 141 mg/dL (70-99) 87 mg/dL (70-99) 151 mg/dL (70-99) I have reviewed the following CT does not demonstrate any evisceration, small bowel dilation Problem List Problems Medical Problems: (1) Generalized weakness Status: Acute Assessment/Plan s/p xlap await bowel fxn MIKAELA TABARES MD Sep 25, 2018 14:42
[2018-09-25 15:00] VITALS: BP 113/71
[2018-09-25 19:00] VITALS: BP 115/59
[2018-09-25] MEDS: SERTRALINE 25 MG TABLET. PO SCH (21:00)
[2018-09-25] MEDS ORDERED: [UNRECOGNIZED DRUG - OTHER] IV SCH ×11 (22:00)
[2018-09-25] MEDS ORDERED: AMINO ACID IV SCH ×11 (22:00)
[2018-09-25] MEDS ORDERED: DEXTROSE 70% IV SCH ×11 (22:00)
[2018-09-25] MEDS ORDERED: TOTAL PARENTERAL NUTRITION IV SCH ×11 (22:00)
[2018-09-25 23:00] VITALS: BP 110/68
[2018-09-26 03:00] VITALS: BP 118/70
[2018-09-26] MEDS: HYDROmorphone 2 MG/ML VIAL IV PRN ×4 (04:54→21:57)
[2018-09-26] MEDS: INSULIN LISPRO 300 UNITS/3 ML INSULN.PEN. SQ SCH ×8 (05:41→21:00)
[2018-09-26] MEDS: LEVOTHYROXINE 88 MCG TABLET PO SCH (05:45)
[2018-09-26 06:00] LABS: CALCIUM 7.9 mg/dL (8.5-10.1); CREATININE 0.6 mg/dL (0.7-1.3); PHOSPHORUS 3.5 mg/dL (2.6-4.7); POTASSIUM 4.3 mmol/L (3.5-5.1)
[2018-09-26] MEDS: PANTOPRAZOLE IV PUSH 40 MG VIAL. IVP SCH (06:47)
[2018-09-26 07:00] VITALS: BP 94/58
[2018-09-26] MEDS: BUDESONIDE 0.5 MG/2 ML NEBU. NEB SCH ×2 (07:27→19:18)
[2018-09-26] MEDS: IPRATRPIUM/ALBUTEROL 0.5/2.5MG 3 ML NEBU. NEB SCH ×4 (07:27→19:18)
--- NOTE | 2018-09-26 07:28 | PDOC ---
PULMONARY PROGRESS NOTES Subjective sob better, on 02, has occ cough had bm Vitals Vital Signs Date Time Temp Pulse Resp B/P (MAP) Pulse Ox O2 Delivery O2 Flow Rate FiO2 09/26/18 04:54 Nasal Cannula 3.0 09/26/18 03:00 98.1 96 18 118/70 (86) 97 98.1 ROS: No Chest Pain General: Alert, No acute distress HEENT: Other (nc at perrl) Lungs: Crackles (BASES) Cardiovascular: S1, S2 Abdomen: Soft, Non-tender, Other (distended) Neuro Exam: Alert, Oriented Extremities: No Edema, Other Skin: Warm Labs Laboratory Tests Test 09/24/18 07:50 09/24/18 11:00 09/24/18 17:09 09/24/18 21:02 Glucose (Fingerstick) 276 mg/dL (70-99) 237 mg/dL (70-99) 327 mg/dL (70-99) 218 mg/dL (70-99) Test 09/25/18 00:03 09/25/18 02:51 09/25/18 04:30 09/25/18 06:01 Glucose (Fingerstick) 101 mg/dL (70-99) 87 mg/dL (70-99) 141 mg/dL (70-99) Sodium Level 137 mmol/L (136-145) Potassium Level 4.3 mmol/L (3.5-5.1) Chloride Level 98 mmol/L (98-107) Carbon Dioxide Level 33 mmol/L (21-32) Anion Gap 6 (6-14) Blood Urea Nitrogen 27 mg/dL (8-26) Creatinine 0.6 mg/dL (0.7-1.3) Estimated GFR (Cockcroft-Gault) 131.0 Glucose Level 121 mg/dL (70-99) Calcium Level 8.4 mg/dL (8.5-10.1) Test 09/25/18 07:21 09/25/18 11:14 09/25/18 16:59 09/25/18 20:49 Glucose (Fingerstick) 87 mg/dL (70-99) 151 mg/dL (70-99) 206 mg/dL (70-99) 147 mg/dL (70-99) Test 09/26/18 00:00 09/26/18 05:20 09/26/18 05:22 Glucose (Fingerstick) 137 mg/dL (70-99) 147 mg/dL (70-99) Sodium Level 136 mmol/L (136-145) Potassium Level 4.3 mmol/L (3.5-5.1) Chloride Level 97 mmol/L (98-107) Carbon Dioxide Level 34 mmol/L (21-32) Anion Gap 5 (6-14) Blood Urea Nitrogen 23 mg/dL (8-26) Creatinine 0.6 mg/dL (0.7-1.3) Estimated GFR (Cockcroft-Gault) 131.0 Glucose Level 150 mg/dL (70-99) Calcium Level 7.9 mg/dL (8.5-10.1) Phosphorus Level 3.5 mg/dL (2.6-4.7) Magnesium Level 2.0 mg/dL (1.8-2.4) Laboratory Tests Test 09/25/18 11:14 09/25/18 16:59 09/25/18 20:49 09/26/18 00:00 Glucose (Fingerstick) 151 mg/dL (70-99) 206 mg/dL (70-99) 147 mg/dL (70-99) 137 mg/dL (70-99) Test 09/26/18 05:20 09/26/18 05:22 Sodium Level 136 mmol/L (136-145) Potassium Level 4.3 mmol/L (3.5-5.1) Chloride Level 97 mmol/L (98-107) Carbon Dioxide Level 34 mmol/L (21-32) Anion Gap 5 (6-14) Blood Urea Nitrogen 23 mg/dL (8-26) Creatinine 0.6 mg/dL (0.7-1.3) Estimated GFR (Cockcroft-Gault) 131.0 Glucose Level 150 mg/dL (70-99) Calcium Level 7.9 mg/dL (8.5-10.1) Phosphorus Level 3.5 mg/dL (2.6-4.7) Magnesium Level 2.0 mg/dL (1.8-2.4) Glucose (Fingerstick) 147 mg/dL (70-99) Medications Active Scripts Medications Dose Route/Sig Max Daily Dose Days Date Category Magnesium Chloride 70 Mg Tablet.dr 64 Mg PO DAILY 08/30/18 Rx Synthroid (Levothyroxine Sodium) 88 Mcg Tablet 88 Mcg PO DAILY06 30 08/30/18 Rx Prednisone 20 Mg Tablet 20 Mg PO DAILY 30 08/30/18 Rx Budesonide 0.5 Mg/2 Ml Ampul.neb 0.5 Mg NEB RTBID 30 08/30/18 Rx Diltiazem 24HR Cd (Diltiazem Hcl) 180 Mg Cap.er.24h 180 Mg PO DAILY 90 08/30/18 Rx Hydrocodone-Apap 7.5-325 (Hydrocodone Bit/Acetaminophen) 1 Tab Tablet 1 Tab PO PRN Q6HRS PRN 08/26/18 Reported Prednisolone Sodium Phosphate (Prednisolone Sod Phosphate) 15 Mg/5 Ml Solution 15 Mg PO DAILY 08/26/18 Reported Omeprazole 40 Mg Capsule. 40 Mg PO DAILY 08/26/18 Reported Cartia Xt (Diltiazem Hcl) 120 Mg Cap.er.24h 120 Mg PO DAILY 08/26/18 Reported Prednisone (Prednisone) 10 Mg Tablet 40 Mg PO DAILY 30 07/16/18 Rx Klor-Con 10 (Potassium Chloride) 10 Meq Tablet.er 1 Tab PO DAILY 07/16/18 Rx Lasix (Furosemide) 40 Mg Tablet 1 Tab PO DAILY 07/16/18 Rx Aspirin Ec (Aspirin) 81 Mg Tablet. 81 Mg PO DAILYWBKFT 30 07/16/18 Rx Duoneb 0.5-3(2.5) Mg/3 Ml (Albuterol/Ipratropium) 3 Ml Ampul.neb 3 Ml NEB RTQID 30 07/01/18 Rx Diltiazem 24HR Cd (Diltiazem Hcl) 120 Mg Cap.er.24h 120 Mg PO DAILY 30 07/01/18 Rx Wellbutrin Xl (Bupropion Hcl) 150 Mg Tab.er.24h 1 Tab PO DAILY 06/30/18 Reported Omeprazole 40 Mg Capsule. 1 Cap PO 10/25/[address] of abd 09/25 1. Bibasilar consolidation in the lungs may be secondary to atelectasis or pneumonia superimposed on interstitial lung disease. 2. Dilated jejunal loop may be secondary to ileus or obstruction. Findings not significant changed when compared to previous exam. 3. Stable segment 7 liver lesion, nonspecific but has been present since July 2017 and most likely a benign entity given interval stability. Impression . IMPRESSION: 1. Chronic hypoxic respiratory failure. 2. Pulmonary fibrosis.ON CHRONIC STEROIDS 3. Small-bowel obstruction. S/P SURGERY / likely post-op ileus 4. Bibasilar consolidation, atelectasis vs infilt will monitor PREOPERATIVE DIAGNOSIS: Small bowel obstruction. POSTOPERATIVE DIAGNOSIS: Small bowel obstruction, secondary to adhesive band. PROCEDURE: Diagnostic laparoscopy, followed by laparotomy with release of small-bowel obstruction and decompression of the small bowel. Plan . TPN for nutrition diet per surgery BD, nebulizer treatments incentive spirometry, elevate hob Lovenox, Protonix for prophylaxis cont solumedrol 20 mg daily, change to PO when he is able to eat increase activity discussed w pt, rn MYA WALDROP MD Sep 26, 2018 07:28
[2018-09-26] MEDS: ASPIRIN ENTERIC COATED 325 MG TABLET.DR. PO SCH (08:00)
[2018-09-26 11:00] VITALS: BP 130/77
[2018-09-26] MEDS: ENOXAPARIN 40 MG/0.4 ML SYRINGE. SQ SCH (12:04)
[2018-09-26] MEDS: methylPREDNISolone SOD SUCC PF 40 MG/ML VIAL. IV SCH (12:04)
[2018-09-26] MEDS: TPN PER PHARMACY MC PRN (12:48)
--- NOTE | 2018-09-26 12:50 | NUR ---
Pharmacy TPN Dosing Note S: JOHN ROBBINS is a 78 year old M Currently receiving Central Continuous TPN started 09/15/18 B:Pertinent PMH: SBO Height: 5 feet, 10 inches Weight: 60.1 kg Current diet: NPO LABS: Sodium: 136 Potassium: 4.3 Chloride: 97 Calcium: 7.9 Corrected Calcium: 9.34 Magnesium: 2 CO2: 34 SCr: 0.6 Glucose: 137-150 Albumin: 2.2 AST: 27 ALT: 38 TPN FORMULA: TPN TYPE: Central Continuous AMINO ACIDS: 65 gm DEXTROSE: 225 gm LIPIDS: 20 gm SODIUM CHLORIDE: 60 mEq SODIUM ACETATE: 30 mEq POTASSIUM CHLORIDE: 20 mEq POTASSIUM PHOSPHATE: 20.4 mmol MAGNESIUM: 10 mEq CALCIUM: 10 mEq MULTIPLE VITAMIN: 10 ml TRACE ELEMENTS: 1 ml TPN PLAN: Sodium salts split over chloride and acetate for acid/base balance. R: Change TPN per plan and ordered formula. Will monitor electrolytes, glucose, and tolerance to TPN. Yuki Wilhelm Bree, 09/26/18 [id number]
--- NOTE | 2018-09-26 13:18 | PDOC ---
PROGRESS NOTES Subjective Subjective Patient without complaint, sleeping comfortably. Objective Objective Vital Signs Date Time Temp Pulse Resp B/P (MAP) Pulse Ox O2 Delivery O2 Flow Rate FiO2 09/26/18 12:03 Nasal Cannula 2.5 09/26/18 11:54 100 09/26/18 11:00 98.6 73 18 130/77 (94) 98.6 Intake and Output 09/26/18 07:00 Output Total 1025 ml Balance -1025 ml Output Urine Total 1025 ml # Voids 1 # Bowel Movements 1 Physical Exam Abdomen: Soft, Other (scant BS present) Heart: Regular rate Extremities: No edema General: Alert, Oriented X3, No acute distress Lungs: Other (fine crackles bilateral bases, otherwise CTA) Assessment Assessment Problems Medical Problems: (1) Generalized weakness Status: Acute Plan Plan of Care 1. SBO, POD #12 - stable, awaiting return of bowel function. Did have BM yesterday per report. Continue post-operative care including TPN. 2. chronic respiratory failure with pulmonary fibrosis - stable, continue O2, nebs and low dose Solumedrol. 3. HTN - controlled, continue present medication. Comment Review of Relevant I have reviewed the following items sherine (where applicable) has been applied. Labs Laboratory Tests Test 09/24/18 17:09 09/24/18 21:02 09/25/18 00:03 09/25/18 02:51 Glucose (Fingerstick) 327 mg/dL (70-99) 218 mg/dL (70-99) 101 mg/dL (70-99) 87 mg/dL (70-99) Test 09/25/18 04:30 09/25/18 06:01 09/25/18 07:21 09/25/18 11:14 Sodium Level 137 mmol/L (136-145) Potassium Level 4.3 mmol/L (3.5-5.1) Chloride Level 98 mmol/L (98-107) Carbon Dioxide Level 33 mmol/L (21-32) Anion Gap 6 (6-14) Blood Urea Nitrogen 27 mg/dL (8-26) Creatinine 0.6 mg/dL (0.7-1.3) Estimated GFR (Cockcroft-Gault) 131.0 Glucose Level 121 mg/dL (70-99) Calcium Level 8.4 mg/dL (8.5-10.1) Glucose (Fingerstick) 141 mg/dL (70-99) 87 mg/dL (70-99) 151 mg/dL (70-99) Test 09/25/18 16:59 09/25/18 20:49 09/26/18 00:00 09/26/18 05:20 Glucose (Fingerstick) 206 mg/dL (70-99) 147 mg/dL (70-99) 137 mg/dL (70-99) Sodium Level 136 mmol/L (136-145) Potassium Level 4.3 mmol/L (3.5-5.1) Chloride Level 97 mmol/L (98-107) Carbon Dioxide Level 34 mmol/L (21-32) Anion Gap 5 (6-14) Blood Urea Nitrogen 23 mg/dL (8-26) Creatinine 0.6 mg/dL (0.7-1.3) Estimated GFR (Cockcroft-Gault) 131.0 Glucose Level 150 mg/dL (70-99) Calcium Level 7.9 mg/dL (8.5-10.1) Phosphorus Level 3.5 mg/dL (2.6-4.7) Magnesium Level 2.0 mg/dL (1.8-2.4) Test 09/26/18 05:22 09/26/18 08:00 09/26/18 11:05 Glucose (Fingerstick) 147 mg/dL (70-99) 150 mg/dL (70-99) 149 mg/dL (70-99) Laboratory Tests Test 09/25/18 16:59 09/25/18 20:49 09/26/18 00:00 09/26/18 05:20 Glucose (Fingerstick) 206 mg/dL (70-99) 147 mg/dL (70-99) 137 mg/dL (70-99) Sodium Level 136 mmol/L (136-145) Potassium Level 4.3 mmol/L (3.5-5.1) Chloride Level 97 mmol/L (98-107) Carbon Dioxide Level 34 mmol/L (21-32) Anion Gap 5 (6-14) Blood Urea Nitrogen 23 mg/dL (8-26) Creatinine 0.6 mg/dL (0.7-1.3) Estimated GFR (Cockcroft-Gault) 131.0 Glucose Level 150 mg/dL (70-99) Calcium Level 7.9 mg/dL (8.5-10.1) Phosphorus Level 3.5 mg/dL (2.6-4.7) Magnesium Level 2.0 mg/dL (1.8-2.4) Test 09/26/18 05:22 09/26/18 08:00 09/26/18 11:05 Glucose (Fingerstick) 147 mg/dL (70-99) 150 mg/dL (70-99) 149 mg/dL (70-99) Medications Current Medications Famotidine (Pepcid Vial) 20 mg 1X ONCE IVP Last administered on 09/12/18 18: 07; Start 09/12/18 at 17:45; Stop 09/12/18 at 17:46; Status DC Ondansetron HCl (Zofran) 4 mg 1X ONCE IV Last administered on 09/12/18 18:07 ; Start 09/12/18 at 17:45; Stop 09/12/18 at 17:46; Status DC Iohexol (Omnipaque 300 Mg/ml) 75 ml 1X ONCE IV Last administered on 09/12/18at 18:35; Start 09/12/18 at 18:30; Stop 09/12/18 at 18:34; Status DC Info (CONTRAST GIVEN -- Rx MONITORING) 1 each PRN DAILY PRN MC SEE COMMENTS; Start 09/12/18 at 18:45; Stop 09/14/18 at 18:44; Status DC Fentanyl Citrate (Fentanyl 2ml Vial) 50 mcg 1X ONCE IV Last administered on 05/21at 20:21; Start 09/12/18 at 20:00; Stop 09/12/18 at 20:01; Status DC Ondansetron HCl (Zofran) 4 mg PRN Q8HRS PRN IV NAUSEA/VOMITING; Start 09/12/18 at 20:30; Stop 09/13/18 at 20:29; Status DC Morphine Sulfate (Morphine Sulfate) 4 mg PRN Q2HR PRN IV PAIN Last administered on 09/13/18at 10:20; Start 09/12/18 at 20:30; Stop 09/13/18 at 20:29 ; Status DC Metronidazole 100 ml @ 100 mls/hr Q8HRS IV Last administered on 09/20/18at 06: 30; Start 09/12/18 at 22:00; Stop 09/20/18 at 10:42; Status DC Ciprofloxacin/ Dextrose 200 ml @ 200 mls/hr 1X ONCE IV Last administered on at 22:51; Start 09/12/18 at 20:30; Stop 09/12/18 at 21:29; Status DC Sodium Chloride 1,000 ml @ 75 mls/hr 1X ONCE IV Last administered on at 22:51; Start 09/12/18 at 20:30; Stop 09/13/18 at 09:49; Status DC Budesonide (Pulmicort) 0.5 mg RTBID NEB Last administered on 09/26/18 07:27; Start 09/13/18 at 09:30 Albuterol/ Ipratropium (Duoneb) 3 ml RTQID NEB Last administered on 09/26/18 11:53; Start 09/13/18 at 09:30 Methylprednisolone Sodium Succinate (SOLU-Medrol 40MG VIAL) 20 mg DAILY IV Last administered on 09/13/18at 10:21; Start 09/13/18 at 10:00; Stop 09/14/18 at 12:55; Status DC Pantoprazole Sodium (PROTONIX VIAL for IV PUSH) 40 mg DAILYAC IVP Last administered on 09/21/18 06:34; Start 09/13/18 at 10:00; Stop 09/21/18 at 09:13 ; Status DC Enoxaparin Sodium (Lovenox 40mg Syringe) 40 mg Q24H SQ Last administered on 12:04; Start 09/13/18 at 10:00 Metoprolol Tartrate (Lopressor Vial) 5 mg Q6HRS IVP Last administered on 06:41; Start 09/13/18 at 14:00; Stop 09/19/18 at 11:39; Status DC Potassium Chloride/Water 100 ml @ 100 mls/hr Q1H IV Last administered on 17:10; Start 09/13/18 at 14:00; Stop 09/13/18 at 17:59; Status DC Throat Lozenges (Chloraseptic) 1 spray PRN Q2HR PRN PO SORE THROAT, 2nd choice Last administered on 09/14/18at 13:47; Start 09/13/18 at 16:45 Throat Lozenges (Cepacol Sore Throat Lozenge) 1 deniz PRN Q2HRS PRN PO SORE THROAT, 1st choice Last administered on 09/14/18at 13:46; Start 09/13/18 at 16:45 Aspirin (Aspirin) 300 mg DAILY TN Last administered on 09/17/18at 11:25; Start 09/14/18 at 09:00; Stop 09/18/18 at 13:30; Status DC Morphine Sulfate (Morphine Sulfate) 4 mg PRN Q2HR PRN IV MODERATE PAIN, SEVERE PAIN Last administered on 09/18/18at 21:59; Start 09/13/18 at 21:15; Stop at 09:10; Status DC Barium Sulfate (E-Z-Hd) 680 gm 1X ONCE PO ; Start 09/14/18 at 08:00; Stop 09/14 at 08:01; Status DC Iohexol (Omnipaque 300 Mg/ml) 400 ml 1X ONCE PO Last administered on at 08:00; Start 09/14/18 at 08:00; Stop 09/14/18 at 08:01; Status DC Info (CONTRAST GIVEN -- Rx MONITORING) 1 each PRN DAILY PRN MC SEE COMMENTS; Start 09/14/18 at 08:00; Stop 09/16/18 at 07:59; Status DC Potassium Chloride/Water 100 ml @ 100 mls/hr Q1H IV ; Start 09/14/18 at 09:00; Stop 09/14/18 at 12:59; Status DC Methylprednisolone Sodium Succinate (SOLU-Medrol 125MG VIAL) 125 mg DAILY IV Last administered on 09/20/18at 09:01; Start 09/15/18 at 09:00; Stop 09/20/18 at 13:23; Status DC Info (Tpn Per Pharmacy) 1 each PRN DAILY PRN MC SEE COMMENTS Last administered on 09/14/18at 13:51; Start 09/14/18 at 13:30; Stop 09/14/18 at 14:27; Status DC Info (Tpn Per Pharmacy) 1 each PRN DAILY PRN MC SEE COMMENTS Last administered on 09/18/18at 09:54; Start 09/15/18 at 14:30; Stop 09/19/18 at 11:39; Status DC Amino Acids/ Glycerin/ Electrolytes 1,000 ml @ 80 mls/hr [id number] IV Last administered on 09/15/18at 03:32; Start 09/14/18 at 14:30; Stop 09/15/18 at 21:59 ; Status DC Cefazolin Sodium/ Dextrose 50 ml @ 100 mls/hr 1X PREOP PRN IV protocol Last administered on 09/14/18at 17:40; Start 09/15/18 at 06:00; Stop 09/15/18 at 18:00 ; Status DC Metronidazole 100 ml @ 100 mls/hr 1X PREOP PRN IV protocol; Start 09/15/18 at 06:00; Stop 09/15/18 at 18:00; Status DC Ondansetron HCl (Zofran) 4 mg PRN Q6HRS PRN IV NAUSEA/VOMITING; Start 09/14/18 at 16:00; Stop 09/15/18 at 01:45; Status DC Fentanyl Citrate (Fentanyl 2ml Vial) 25 mcg PRN Q5MIN PRN IV MILD PAIN; Start 09/14/18 at 16:00; Stop 09/15/18 at 01:40; Status DC Fentanyl Citrate (Fentanyl 2ml Vial) 50 mcg PRN Q5MIN PRN IV MODERATE TO SEVERE PAIN Last administered on 09/14/18at 20:27; Start 09/14/18 at 16:00; Stop 09/15/18 at 01:40; Status DC Morphine Sulfate (Morphine Sulfate) 1 mg PRN Q10MIN PRN IV SEVERE PAIN Last administered on 09/14/18at 21:51; Start 09/14/18 at 16:00; Stop 09/15/18 at 01:40 ; Status DC Ringer's Solution 1,000 ml @ 30 mls/hr Q24H IV Last administered on 09/14/18at 21:30; Start 09/14/18 at 15:52; Stop 09/15/18 at 01:40; Status DC Lidocaine HCl (Xylocaine-Mpf 1% 2ml Vial) 2 ml 1X PRN PRN ID IV START; Start at 16:00; Stop 09/15/18 at 15:59; Status DC Hydromorphone HCl (Dilaudid) 0.5 mg PRN Q10MIN PRN IV SEV PAIN, Second choice; Start 09/14/18 at 16:00; Stop 09/15/18 at 01:45; Status DC Prochlorperazine Edisylate (Compazine) 5 mg PACU PRN PRN IV NAUSEA, MRX1 Last administered on 09/14/18at 21:02; Start 09/14/18 at 16:00; Stop 09/15/18 at 01:40 ; Status DC Cefazolin Sodium/ Dextrose 50 ml @ As Directed STK-MED ONCE IV ; Start 09/14/18 at 16:08; Stop 09/14/18 at 16:09; Status DC Propofol 20 ml @ As Directed STK-MED ONCE IV ; Start 09/14/18 at 16:32; Stop 07/21 at 16:33; Status DC Dexamethasone Sodium Phosphate (Decadron) 20 mg STK-MED ONCE .ROUTE ; Start 07/21 at 16:32; Stop 09/14/18 at 16:33; Status DC Lidocaine HCl (Lidocaine Pf 2% Vial) 5 ml STK-MED ONCE .ROUTE ; Start 09/14/18 at 16:32; Stop 09/14/18 at 16:33; Status DC Ondansetron HCl (Zofran) 4 mg STK-MED ONCE .ROUTE ; Start 09/14/18 at 16:32; Stop 09/14/18 at 16:33; Status DC Succinylcholine Chloride (Anectine) 200 mg STK-MED ONCE .ROUTE ; Start 09/14/18 at 16:32; Stop 09/14/18 at 16:33; Status DC Rocuronium [place] (Zemuron) 50 mg STK-MED ONCE .ROUTE ; Start 09/14/18 at 16:32 ; Stop 09/14/18 at 16:33; Status DC Fentanyl Citrate (Fentanyl 2ml Vial) 100 mcg STK-MED ONCE .ROUTE ; Start at 16:32; Stop 09/14/18 at 16:33; Status DC Bupivacaine HCl/ Epinephrine Bitart (Sensorcain-Mpf Epi 0.5%-[id number]) 30 ml STK -MED ONCE .ROUTE Last administered on 09/14/18at 17:57; Start 09/14/18 at 17:18 ; Stop 09/14/18 at 17:19; Status DC Cefazolin Sodium/ Dextrose 50 ml @ As Directed STK-MED ONCE IV ; Start 09/14/18 at 17:28; Stop 09/14/18 at 17:29; Status DC Lidocaine HCl (Glydo (Lidocaine) Jelly) 6 marcel STK-MED ONCE .ROUTE ; Start at 17:43; Stop 09/14/18 at 17:44; Status DC Hydrocortisone Sodium Succinate (Solu-CORTEF) 100 mg STK-MED ONCE .ROUTE ; Start 09/14/18 at 18:08; Stop 09/14/18 at 18:09; Status DC Phenylephrine HCl (Shaw-Synephrine Inj) 10 mg STK-MED ONCE .ROUTE ; Start at 18:11; Stop 09/14/18 at 18:12; Status DC Glycopyrrolate (Robinul) 1 mg STK-MED ONCE .ROUTE ; Start 09/14/18 at 19:05; Stop 09/14/18 at 19:06; Status DC Sevoflurane (Ultane) 60 ml STK-MED ONCE IH ; Start 09/14/18 at 19:23; Stop 09/14 at 19:24; Status DC Enoxaparin Sodium (Lovenox 40mg Syringe) 30 mg Q24H SQ ; Start 09/14/18 at 19:45 ; Status UNV Sodium Chloride (Normal Saline Flush) 3 ml QSHIFT PRN IV AFTER MEDS AND BLOOD DRAWS; Start 09/14/18 at 19:45 Hydromorphone HCl 30 ml @ 0 mls/hr CONT PRN PRN IV PER PROTOCOL Last administered on 09/14/18at 20:25; Start 09/14/18 at 19:45; Stop 09/15/18 at 08:34 ; Status DC Ondansetron HCl (Zofran) 4 mg PRN Q6HRS PRN IV NAUESA, 1ST CHOICE Last administered on 09/22/18at 08:47; Start 09/14/18 at 19:45 Ringer's Solution 1,000 ml @ 75 mls/hr [id number] IV Last administered on at 21:00; Start 09/14/18 at 21:00; Stop 09/15/18 at 01:45; Status DC Lorazepam (Ativan) 0.5 mg PRN Q6HRS PRN IV ANXIETY / AGITATION; Start 09/14/18 at 22:15 Albumin Human 250 ml @ 83.3 mls/hr 1X ONCE IV Last administered on 09/15/18at 01:15; Start 09/15/18 at 01:00; Stop 09/15/18 at 04:00; Status DC Hydromorphone HCl (Dilaudid) 0.5 mg PRN Q3HRS PRN IV MILD PAIN Last administered on 09/26/18at 12:03; Start 09/15/18 at 08:30 Albumin Human 500 ml @ 125 mls/hr 1X ONCE IV Last administered on 09/15/18at 10:23; Start 09/15/18 at 09:00; Stop 09/15/18 at 12:59; Status DC Sodium Chloride 250 ml @ 500 mls/hr 1X ONCE IV Last administered on at 11:00; Start 09/15/18 at 11:00; Stop 09/15/18 at 11:29; Status DC Sodium Chloride 1,000 ml @ 100 mls/hr Q10H IV Last administered on 09/15/18at 11:30; Start 09/15/18 at 11:30; Stop 09/15/18 at 22:00; Status DC Sodium Chloride 1,000 ml @ 75 mls/hr [id number] IV Last administered on at 00:12; Start 09/15/18 at 22:00; Stop 09/17/18 at 12:12; Status DC Sodium Acetate 90 meq/Potassium Chloride 50 meq/ Potassium Phosphate 3.4 mmol/ Magnesium Sulfate 10 meq/ Calcium Gluconate 10 meq/ Multivitamins 10 ml/Chromium / Copper/Manganese/ Seleni/Zn 1 ml/ Total Parenteral Nutrition/Amino Acids/ Dextrose/ Fat Emulsion Intravenous 1,512 ml @ 63 mls/hr TPN CONT IV Last administered on 09/15/18at 21:43; Start 09/15/18 at 22:00; Stop 09/16/18 at 21:59 ; Status DC Lidocaine/Sodium Bicarbonate (Buffered Lidocaine 1%) 3 ml STK-MED ONCE .ROUTE ; Start 09/15/18 at 14:35; Stop 09/15/18 at 14:36; Status DC Heparin Sodium/ Sodium Chloride 500 ml @ As Directed STK-MED ONCE .ROUTE ; Start 09/15/18 at 14:35; Stop 09/15/18 at 14:36; Status DC Heparin Sodium/ Sodium Chloride 500 ml @ As Directed STK-MED ONCE .ROUTE ; Start 09/15/18 at 14:36; Stop 09/15/18 at 14:37; Status DC Heparin Sodium/ Sodium Chloride (HEPARIN for ARTERIAL LINE FLUSH) 1,000 unit 1X ONCE IART Last administered on 09/15/18at 15:15; Start 09/15/18 at 15:15; Stop 09/15/18 at 15:16; Status DC Lidocaine/Sodium Bicarbonate (Buffered Lidocaine 1%) 3 ml 1X ONCE IJ Last administered on 09/15/18at 15:15; Start 09/15/18 at 15:15; Stop 09/15/18 at 15:16 ; Status DC Potassium Phosphate 13.6 mmol/Dextrose 104.5333 ml @ 52.267 m... 1X ONCE IV Last administered on 09/16/18at 09:53; Start 09/16/18 at 10:00; Stop 09/16/18 at 11:59; Status DC Sodium Acetate 90 meq/Potassium Chloride 50 meq/ Potassium Phosphate 15 mmol/ Magnesium Sulfate 10 meq/Calcium Gluconate 10 meq/ Multivitamins 10 ml/Chromium / Copper/Manganese/ Seleni/Zn 1 ml/ Total Parenteral Nutrition/Amino Acids/ Dextrose/ Fat Emulsion Intravenous 1,512 ml @ 63 mls/hr TPN CONT IV Last administered on 09/16/18at 21:49; Start 09/16/18 at 22:00; Stop 09/17/18 at 21:59 ; Status DC Albuterol/ Ipratropium (Duoneb) 3 ml RTQID NEB ; Start 09/16/18 at 12:00; Stop 09/16/18 at 12:00; Status DC Sodium Chloride 1,000 ml @ 75 mls/hr [id number] IV Last administered on at 06:20; Start 09/17/18 at 13:00; Stop 09/19/18 at 11:39; Status DC Potassium Phosphate 13.6 mmol/Dextrose 104.5333 ml @ 52.267 m... ONCE ONCE IV Last administered on 09/17/18at 14:14; Start 09/17/18 at 13:00; Stop 09/17/18 at 14:59; Status DC Sodium Acetate 90 meq/Potassium Acetate 40 meq/ Potassium Phosphate 20.4 mmol/ Magnesium Sulfate 10 meq/ Calcium Gluconate 10 meq/ Multivitamins 10 ml/Chromium / Copper/Manganese/ Seleni/Zn 1 ml/ Total Parenteral Nutrition/Amino Acids/ Dextrose/ Fat Emulsion Intravenous 1,512 ml @ 63 mls/hr TPN CONT IV Last administered on 09/17/18at 23:14; Start 09/17/18 at 22:00; Stop 09/18/18 at 21:59 ; Status DC Sodium Acetate 90 meq/Potassium Acetate 40 meq/ Potassium Phosphate 20.4 mmol/ Magnesium Sulfate 10 meq/ Calcium Gluconate 10 meq/ Multivitamins 10 ml/Chromium / Copper/Manganese/ Seleni/Zn 1 ml/ Total Parenteral Nutrition/Amino Acids/ Dextrose/ Fat Emulsion Intravenous 1,512 ml @ 63 mls/hr TPN CONT IV Last administered on 09/18/18at 21:51; Start 09/18/18 at 22:00; Stop 09/19/18 at 11:39 ; Status DC Aspirin (Ecotrin) 325 mg [id number] PO Last administered on 09/22/18at 08:45; Start 09/18/18 at 13:30 Acetaminophen/ Hydrocodone Bitart (Lortab 10/325) 1 tab PRN Q6HRS PRN PO PAIN Last administered on 09/24/18at 21:25; Start 09/19/18 at 10:15 Levothyroxine Sodium (Synthroid) 88 mcg DAILY06 PO Last administered on 06:04; Start 09/19/18 at 15:30 Diltiazem HCl (Cardizem 24hr Cd) 120 mg DAILY PO Last administered on 08:45; Start 09/19/18 at 12:00 Info (Tpn Per Pharmacy) 1 each PRN DAILY PRN MC SEE COMMENTS Last administered on 09/26/18at 12:48; Start 09/20/18 at 11:30 Sodium Acetate 90 meq/Potassium Acetate 40 meq/ Potassium Phosphate 20.4 mmol/ Magnesium Sulfate 10 meq/ Calcium Gluconate 10 meq/ Multivitamins 10 ml/Chromium / Copper/Manganese/ Seleni/Zn 1 ml/ Total Parenteral Nutrition/Amino Acids/ Dextrose/ Fat Emulsion Intravenous 1,512 ml @ 63 mls/hr TPN CONT IV Last administered on 09/20/18at 21:23; Start 09/20/18 at 22:00; Stop 09/21/18 at 21:59 ; Status DC Methylprednisolone Sodium Succinate (SOLU-Medrol 125MG VIAL) 60 mg DAILY IV ; Start 09/21/18 at 09:00; Stop 09/21/18 at 09:10; Status DC Insulin Human Lispro (HumaLOG) 0-5 UNITS TIDWMEALS SQ ; Start 09/21/18 at 08:00 ; Stop 09/21/18 at 09:08; Status DC Dextrose (Dextrose 50%-Water Syringe) 12.5 gm PRN Q15MIN PRN IV SEE COMMENTS; Start 09/21/18 at 00:00 Insulin Human Lispro (HumaLOG) 0-12 UNITS QIDACHS SQ Last administered on at 17:29; Start 09/21/18 at 11:30 Prednisone (Prednisone) 40 mg DAILY PO Last administered on 09/22/18at 08:44; Start 09/21/18 at 10:00; Stop 09/24/18 at 09:22; Status DC Pantoprazole Sodium (Protonix) 40 mg DAILYAC PO Last administered on 09/22/18at 07:01; Start 09/22/18 at 07:30; Stop 09/24/18 at 09:21; Status DC Sodium Acetate 90 meq/Potassium Acetate 40 meq/ Potassium Phosphate 20.4 mmol/ Magnesium Sulfate 10 meq/ Calcium Gluconate 10 meq/ Multivitamins 10 ml/Chromium / Copper/Manganese/ Seleni/Zn 1 ml/ Total Parenteral Nutrition/Amino Acids/ Dextrose/ Fat Emulsion Intravenous 1,512 ml @ 63 mls/hr TPN CONT IV Last administered on 09/21/18at 21:07; Start 09/21/18 at 22:00; Stop 09/22/18 at 21:59 ; Status DC Sertraline HCl (Zoloft) 25 mg QHS PO Last administered on 09/24/18at 21:24; Start 09/21/18 at 21:00 Sodium Acetate 90 meq/Potassium Acetate 40 meq/ Potassium Phosphate 20.4 mmol/ Magnesium Sulfate 10 meq/ Calcium Gluconate 10 meq/ Multivitamins 10 ml/Chromium / Copper/Manganese/ Seleni/Zn 1 ml/ Total Parenteral Nutrition/Amino Acids/ Dextrose/ Fat Emulsion Intravenous 1,512 ml @ 63 mls/hr TPN CONT IV Last administered on 09/22/18at 21:11; Start 09/22/18 at 22:00; Stop 09/23/18 at 21:59 ; Status DC Sodium Acetate 90 meq/Potassium Acetate 40 meq/ Potassium Phosphate 20.4 mmol/ Magnesium Sulfate 10 meq/ Calcium Gluconate 10 meq/ Multivitamins 10 ml/Chromium / Copper/Manganese/ Seleni/Zn 1 ml/ Insulin Human Regular 10 unit/ Total Parenteral Nutrition/Amino Acids/Dextrose/ Fat Emuls... 1,512 ml @ 63 mls/hr TPN CONT IV Last administered on 09/23/18at 21:22; Start 09/23/18 at 22:00; Stop 09/24/18 at 21:59; Status DC Insulin Human Lispro (HumaLOG) 5 units Q6HRS SQ Last administered on 09/25/18at 17:29; Start 09/23/18 at 18:00 Pantoprazole Sodium (PROTONIX VIAL for IV PUSH) 40 mg 1X ONCE IVP Last administered on 09/23/18at 13:03; Start 09/23/18 at 12:30; Stop 09/23/18 at 12:31 ; Status DC Methylprednisolone Sodium Succinate (SOLU-Medrol 40MG VIAL) 40 mg 1X ONCE IV Last administered on 09/23/18at 13:03; Start 09/23/18 at 12:30; Stop 09/23/18 at 12:31; Status DC Pantoprazole Sodium (PROTONIX VIAL for IV PUSH) 40 mg 1X ONCE IVP Last administered on 09/24/18at 09:07; Start 09/24/18 at 08:00; Stop 09/24/18 at 08:02 ; Status DC Methylprednisolone Sodium Succinate (SOLU-Medrol 40MG VIAL) 40 mg DAILY IV Last administered on 09/25/18at 08:01; Start 09/24/18 at 10:00; Stop 09/25/18 at 10:07; Status DC Pantoprazole Sodium (PROTONIX VIAL for IV PUSH) 40 mg DAILYAC IVP Last administered on 09/26/18at 06:47; Start 09/24/18 at 10:00 Sodium Acetate 90 meq/Potassium Chloride 20 meq/ Potassium Phosphate 20.4 mmol/ Magnesium Sulfate 10 meq/ Calcium Gluconate 10 meq/ Multivitamins 10 ml/Chromium / Copper/Manganese/ Seleni/Zn 1 ml/ Insulin Human Regular 10 unit/ Total Parenteral Nutrition/Amino Acids/Dextrose/ Fat Emuls... 1,512 ml @ 63 mls/hr TPN CONT IV Last administered on 09/24/18at 21:32; Start 09/24/18 at 22:00; Stop 09/25/18 at 21:59; Status DC Iohexol (Omnipaque 300 Mg/ml) 75 ml 1X ONCE IV Last administered on 09/24/18at 20:50; Start 09/24/18 at 19:00; Stop 09/24/18 at 19:01; Status DC Info (CONTRAST GIVEN -- Rx MONITORING) 1 each PRN DAILY PRN MC SEE COMMENTS; Start 09/24/18 at 19:15; Stop 09/26/18 at 19:14 Iohexol (Omnipaque 240 Mg/ml) 30 ml 1X ONCE PO Last administered on 09/25/18at 09:00; Start 09/25/18 at 09:00; Stop 09/25/18 at 09:01; Status DC Iohexol (Omnipaque 300 Mg/ml) 75 ml 1X ONCE IV Last administered on 09/25/18at 09:00; Start 09/25/18 at 09:00; Stop 09/25/18 at 09:01; Status DC Info (CONTRAST GIVEN -- Rx MONITORING) 1 each PRN DAILY PRN MC SEE COMMENTS; Start 09/25/18 at 09:00; Stop 09/27/18 at 08:59 Methylprednisolone Sodium Succinate (SOLU-Medrol 40MG VIAL) 20 mg DAILY IV Last administered on 09/26/18at 12:04; Start 09/26/18 at 09:00 Sodium Acetate 90 meq/Potassium Chloride 20 meq/ Potassium Phosphate 20.4 mmol/ Magnesium Sulfate 10 meq/ Calcium Gluconate 10 meq/ Multivitamins 10 ml/Chromium / Copper/Manganese/ Seleni/Zn 1 ml/ Insulin Human Regular 10 unit/ Total Parenteral Nutrition/Amino Acids/Dextrose/ Fat Emuls... 1,512 ml @ 63 mls/hr TPN CONT IV Last administered on 09/25/18at 21:45; Start 09/25/18 at 22:00; Stop 09/26/18 at 21:59 Sodium Chloride 60 meq/Sodium Acetate 30 meq/ Potassium Chloride 20 meq/ Potassium Phosphate 20.4 mmol/Magnesium Sulfate 10 meq/ Calcium Gluconate 10 meq / Multivitamins 10 ml/Chromium/ Copper/Manganese/ Seleni/Zn 1 ml/ Insulin Human Regular 10 unit/ Total Parenteral Nutrition/Am... 1,512 ml @ 63 mls/hr TPN CONT IV ; Start 09/26/18 at 22:00; Stop 09/27/18 at 21:59 Active Scripts Active Magnesium Chloride 70 Mg Tablet. 64 Mg PO DAILY 30 Days Synthroid (Levothyroxine Sodium) 88 Mcg Tablet 88 Mcg PO DAILY06 30 Days Prednisone 20 Mg Tablet 20 Mg PO DAILY 30 Days Budesonide 0.5 Mg/2 Ml Ampul.neb 0.5 Mg NEB RTBID 30 Days Diltiazem 24HR Cd (Diltiazem Hcl) 180 Mg Cap.er.24h 180 Mg PO DAILY 90 Days Prednisone (Prednisone) 10 Mg Tablet 40 Mg PO DAILY 30 Days Klor-Con 10 (Potassium Chloride) 10 Meq Tablet.er 1 Tab PO DAILY Lasix (Furosemide) 40 Mg Tablet 1 Tab PO DAILY Aspirin Ec (Aspirin) 81 Mg Tablet. 81 Mg PO DAILYWBKFT 30 Days Duoneb 0.5-3(2.5) Mg/3 Ml (Albuterol/Ipratropium) 3 Ml Ampul.neb 3 Ml NEB RTQID 30 Days Diltiazem 24HR Cd (Diltiazem Hcl) 120 Mg Cap.er.24h 120 Mg PO DAILY 30 Days Reported Hydrocodone-Apap 7.5-325 (Hydrocodone Bit/Acetaminophen) 1 Tab Tablet 1 Tab PO PRN Q6HRS PRN Prednisolone Sodium Phosphate (Prednisolone Sod Phosphate) 15 Mg/5 Ml Solution 15 Mg PO DAILY Omeprazole 40 Mg Capsule. 40 Mg PO DAILY Cartia Xt (Diltiazem Hcl) 120 Mg Cap.er.24h 120 Mg PO DAILY Wellbutrin Xl (Bupropion Hcl) 150 Mg Tab.er.24h 1 Tab PO DAILY Omeprazole 40 Mg Capsule. 1 Cap PO Vitals/I & O Vital Sign - Last 24 Hours 09/25/18 09/25/18 09/25/18 09/25/18 15:00 16:13 17:24 19:00 Temp 97.9 98.7 97.9 98.7 Pulse 92 69 Resp 18 18 B/P (MAP) 113/71 (85) 115/59 (77) Pulse Ox 98 93 O2 Delivery Nasal Cannula Nasal Cannula Nasal Cannula Nasal Cannula O2 Flow Rate 3.0 3.0 3.0 3.0 09/25/18 09/25/18 09/25/18 09/25/18 19:29 20:00 21:50 22:20 Pulse Ox 96 O2 Delivery Nasal Cannula Nasal Cannula Nasal Cannula Nasal Cannula O2 Flow Rate 3.0 3.0 3.0 3.0 09/25/18 09/26/18 09/26/18 09/26/18 23:00 03:00 04:54 07:00 Temp 98.1 98.1 98.7 98.1 98.1 98.7 Pulse 66 96 66 Resp 18 18 16 B/P (MAP) 110/68 (82) 118/70 (86) 94/58 (70) Pulse Ox 98 97 91 O2 Delivery Nasal Cannula Nasal Cannula Nasal Cannula Nasal Cannula O2 Flow Rate 3.0 3.0 3.0 2.0 09/26/18 09/26/18 09/26/18 09/26/18 07:27 11:00 11:54 12:03 Temp 98.6 98.6 Pulse 73 Resp 18 B/P (MAP) 130/77 (94) Pulse Ox 98 100 100 O2 Delivery Nasal Cannula Nasal Cannula Nasal Cannula Nasal Cannula O2 Flow Rate 3.0 2.0 3.0 2.5 Intake and Output 09/25/18 09/25/18 09/26/18 15:00 23:00 07:00 Output Total 425 ml 400 ml 200 ml Balance -425 ml -400 ml -200 ml Nutrition Consultation Dietary Evaluation: Recommendations by RD: PPN/TPN Comments: REC continue TPN per followin grams dextrose, 65 grams AA, 20 grams lipid advance diet when able Expected Outcomes/Goals: TPN for nutrition needs s/p abdominal surgery until po intake tolerated w/ solid foods Interpretation of weight loss: >5% in 1 month Malnutrition Findings: Food and Nutrition Intake (Sev: <50% est energy req 5days Weight Status: Underweight KIM REGAN MD Sep 26, 2018 13:18
--- NOTE | 2018-09-26 14:10 | PDOC ---
SURGICAL PROGRESS NOTE Subjective Pt without new c/o, had small stool, no N/V Vital Signs Vital Signs Date Time Temp Pulse Resp B/P (MAP) Pulse Ox O2 Delivery O2 Flow Rate FiO2 09/26/18 12:33 Nasal Cannula 2.5 09/26/18 11:54 100 09/26/18 11:00 98.6 73 18 130/77 (94) 98.6 I&O Intake and Output 09/26/18 07:00 Output Total 1025 ml Balance -1025 ml Output Urine Total 1025 ml # Voids 1 # Bowel Movements 1 PATIENT HAS A DELCID: No General: Alert, Cooperative, No acute distress Abdomen: Soft, No tenderness, Other (dressing intact) Labs Laboratory Tests Test 09/24/18 17:09 09/24/18 21:02 09/25/18 00:03 09/25/18 02:51 Glucose (Fingerstick) 327 mg/dL (70-99) 218 mg/dL (70-99) 101 mg/dL (70-99) 87 mg/dL (70-99) Test 09/25/18 04:30 09/25/18 06:01 09/25/18 07:21 09/25/18 11:14 Sodium Level 137 mmol/L (136-145) Potassium Level 4.3 mmol/L (3.5-5.1) Chloride Level 98 mmol/L (98-107) Carbon Dioxide Level 33 mmol/L (21-32) Anion Gap 6 (6-14) Blood Urea Nitrogen 27 mg/dL (8-26) Creatinine 0.6 mg/dL (0.7-1.3) Estimated GFR (Cockcroft-Gault) 131.0 Glucose Level 121 mg/dL (70-99) Calcium Level 8.4 mg/dL (8.5-10.1) Glucose (Fingerstick) 141 mg/dL (70-99) 87 mg/dL (70-99) 151 mg/dL (70-99) Test 09/25/18 16:59 09/25/18 20:49 09/26/18 00:00 09/26/18 05:20 Glucose (Fingerstick) 206 mg/dL (70-99) 147 mg/dL (70-99) 137 mg/dL (70-99) Sodium Level 136 mmol/L (136-145) Potassium Level 4.3 mmol/L (3.5-5.1) Chloride Level 97 mmol/L (98-107) Carbon Dioxide Level 34 mmol/L (21-32) Anion Gap 5 (6-14) Blood Urea Nitrogen 23 mg/dL (8-26) Creatinine 0.6 mg/dL (0.7-1.3) Estimated GFR (Cockcroft-Gault) 131.0 Glucose Level 150 mg/dL (70-99) Calcium Level 7.9 mg/dL (8.5-10.1) Phosphorus Level 3.5 mg/dL (2.6-4.7) Magnesium Level 2.0 mg/dL (1.8-2.4) Test 09/26/18 05:22 09/26/18 08:00 09/26/18 11:05 Glucose (Fingerstick) 147 mg/dL (70-99) 150 mg/dL (70-99) 149 mg/dL (70-99) Laboratory Tests Test 09/25/18 16:59 09/25/18 20:49 09/26/18 00:00 09/26/18 05:20 Glucose (Fingerstick) 206 mg/dL (70-99) 147 mg/dL (70-99) 137 mg/dL (70-99) Sodium Level 136 mmol/L (136-145) Potassium Level 4.3 mmol/L (3.5-5.1) Chloride Level 97 mmol/L (98-107) Carbon Dioxide Level 34 mmol/L (21-32) Anion Gap 5 (6-14) Blood Urea Nitrogen 23 mg/dL (8-26) Creatinine 0.6 mg/dL (0.7-1.3) Estimated GFR (Cockcroft-Gault) 131.0 Glucose Level 150 mg/dL (70-99) Calcium Level 7.9 mg/dL (8.5-10.1) Phosphorus Level 3.5 mg/dL (2.6-4.7) Magnesium Level 2.0 mg/dL (1.8-2.4) Test 09/26/18 05:22 09/26/18 08:00 09/26/18 11:05 Glucose (Fingerstick) 147 mg/dL (70-99) 150 mg/dL (70-99) 149 mg/dL (70-99) Problem List Problems Medical Problems: (1) Generalized weakness Status: Acute Assessment/Plan s/p xlap cont OOB await improved bowel fxn MIKAELA TABARES MD Sep 26, 2018 14:10
[2018-09-26 15:00] VITALS: BP 98/62
[2018-09-26 19:00] VITALS: BP 97/63
[2018-09-26] MEDS: SERTRALINE 25 MG TABLET. PO SCH (21:52)
[2018-09-26] MEDS ORDERED: TOTAL PARENTERAL NUTRITION IV SCH ×12 (22:00)
[2018-09-26] MEDS ORDERED: DEXTROSE 70% IV SCH ×12 (22:00)
[2018-09-26] MEDS ORDERED: [UNRECOGNIZED DRUG - OTHER] IV SCH ×12 (22:00)
[2018-09-26] MEDS ORDERED: AMINO ACID IV SCH ×12 (22:00)
[2018-09-26 23:00] VITALS: BP 120/63
[2018-09-27 03:00] VITALS: BP 105/69
[2018-09-27] MEDS: LEVOTHYROXINE 88 MCG TABLET PO SCH (05:33)
[2018-09-27] MEDS: INSULIN LISPRO 300 UNITS/3 ML INSULN.PEN. SQ SCH ×8 (05:39→21:00)
[2018-09-27] MEDS: IPRATRPIUM/ALBUTEROL 0.5/2.5MG 3 ML NEBU. NEB SCH ×4 (06:02→19:47)
[2018-09-27] MEDS: BUDESONIDE 0.5 MG/2 ML NEBU. NEB SCH ×2 (06:02→19:47)
[2018-09-27 06:03] LABS: CREATININE 0.5 mg/dL (0.7-1.3); GFR 161.7; MAGNESIUM 2.1 mg/dL (1.8-2.4); PHOSPHORUS 3.3 mg/dL (2.6-4.7)
[2018-09-27 07:00] VITALS: BP 111/57
[2018-09-27] MEDS: PANTOPRAZOLE IV PUSH 40 MG VIAL. IVP SCH (07:58)
[2018-09-27] MEDS: HYDROmorphone 2 MG/ML VIAL IV PRN ×4 (08:20→21:31)
[2018-09-27] MEDS: methylPREDNISolone SOD SUCC PF 40 MG/ML VIAL. IV SCH (08:20)
[2018-09-27] MEDS: ASPIRIN ENTERIC COATED 325 MG TABLET.DR. PO SCH (08:21)
--- NOTE | 2018-09-27 09:21 | PDOC ---
REMBERTO WINSTON [employer]UC[employer] 09/27/18 09: SURGICAL PROGRESS NOTE Subjective resting + flatus, no stool wound now dry Vital Signs Vital Signs Date Time Temp Pulse Resp B/P (MAP) Pulse Ox O2 Delivery O2 Flow Rate FiO2 09/27/18 09:11 16 Room Air 09/27/18 07:00 97.8 67 111/57 (75) 94 2.0 97.8 I&O Intake and Output 09/27/18 06:59 Output Total 200 ml Balance -200 ml Output Urine Total 200 ml General: Alert, Oriented X3, Cooperative, No acute distress Abdomen: Soft, Other (ND, wound dry) Labs Laboratory Tests Test 09/25/18 11:14 09/25/18 16:59 09/25/18 20:49 09/26/18 00:00 Glucose (Fingerstick) 151 mg/dL (70-99) 206 mg/dL (70-99) 147 mg/dL (70-99) 137 mg/dL (70-99) Test 09/26/18 05:20 09/26/18 05:22 09/26/18 08:00 09/26/18 11:05 Sodium Level 136 mmol/L (136-145) Potassium Level 4.3 mmol/L (3.5-5.1) Chloride Level 97 mmol/L (98-107) Carbon Dioxide Level 34 mmol/L (21-32) Anion Gap 5 (6-14) Blood Urea Nitrogen 23 mg/dL (8-26) Creatinine 0.6 mg/dL (0.7-1.3) Estimated GFR (Cockcroft-Gault) 131.0 Glucose Level 150 mg/dL (70-99) Calcium Level 7.9 mg/dL (8.5-10.1) Phosphorus Level 3.5 mg/dL (2.6-4.7) Magnesium Level 2.0 mg/dL (1.8-2.4) Glucose (Fingerstick) 147 mg/dL (70-99) 150 mg/dL (70-99) 149 mg/dL (70-99) Test 09/26/18 16:34 09/26/18 21:36 09/27/18 00:42 09/27/18 05:20 Glucose (Fingerstick) 219 mg/dL (70-99) 194 mg/dL (70-99) 173 mg/dL (70-99) Sodium Level 137 mmol/L (136-145) Potassium Level 4.0 mmol/L (3.5-5.1) Chloride Level 99 mmol/L (98-107) Carbon Dioxide Level 34 mmol/L (21-32) Anion Gap 4 (6-14) Blood Urea Nitrogen 21 mg/dL (8-26) Creatinine 0.5 mg/dL (0.7-1.3) Estimated GFR (Cockcroft-Gault) 161.7 Glucose Level 152 mg/dL (70-99) Calcium Level 8.0 mg/dL (8.5-10.1) Phosphorus Level 3.3 mg/dL (2.6-4.7) Magnesium Level 2.1 mg/dL (1.8-2.4) Triglycerides Level 119 mg/dL (0-150) Test 09/27/18 05:32 Glucose (Fingerstick) 136 mg/dL (70-99) Laboratory Tests Test 09/26/18 11:05 09/26/18 16:34 09/26/18 21:36 09/27/18 00:42 Glucose (Fingerstick) 149 mg/dL (70-99) 219 mg/dL (70-99) 194 mg/dL (70-99) 173 mg/dL (70-99) Test 09/27/18 05:20 09/27/18 05:32 Sodium Level 137 mmol/L (136-145) Potassium Level 4.0 mmol/L (3.5-5.1) Chloride Level 99 mmol/L (98-107) Carbon Dioxide Level 34 mmol/L (21-32) Anion Gap 4 (6-14) Blood Urea Nitrogen 21 mg/dL (8-26) Creatinine 0.5 mg/dL (0.7-1.3) Estimated GFR (Cockcroft-Gault) 161.7 Glucose Level 152 mg/dL (70-99) Calcium Level 8.0 mg/dL (8.5-10.1) Phosphorus Level 3.3 mg/dL (2.6-4.7) Magnesium Level 2.1 mg/dL (1.8-2.4) Triglycerides Level 119 mg/dL (0-150) Glucose (Fingerstick) 136 mg/dL (70-99) Problem List Problems Medical Problems: (1) Generalized weakness Status: Acute Assessment/Plan will review with SHAKEEL Martinez MD 09/27/18 1648: SURGICAL PROGRESS NOTE Assessment/Plan pt seen and examined will start liquids in the AM REMBERTO WINSTON APRN Sep 27, 2018 09:21 SHAKEEL SOMMER MD Sep 27, 2018 16:48
[2018-09-27] MEDS: ENOXAPARIN 40 MG/0.4 ML SYRINGE. SQ SCH (09:31)
--- NOTE | 2018-09-27 10:30 | PDOC ---
PULMONARY PROGRESS NOTES Subjective sob better, on 02, has occ cough Vitals Vital Signs Date Time Temp Pulse Resp B/P (MAP) Pulse Ox O2 Delivery O2 Flow Rate FiO2 09/27/18 09:31 67 111/57 09/27/18 09:11 16 Room Air 09/27/18 08:00 3.0 09/27/18 07:00 97.8 94 97.8 ROS: No Chest Pain General: Alert, No acute distress HEENT: Other (nc at perrl) Lungs: Crackles (BASES) Cardiovascular: S1, S2 Abdomen: Soft, Non-tender, Other (distended) Neuro Exam: Alert, Oriented Extremities: No Edema, Other Skin: Warm Labs Laboratory Tests Test 09/25/18 11:14 09/25/18 16:59 09/25/18 20:49 09/26/18 00:00 Glucose (Fingerstick) 151 mg/dL (70-99) 206 mg/dL (70-99) 147 mg/dL (70-99) 137 mg/dL (70-99) Test 09/26/18 05:20 09/26/18 05:22 09/26/18 08:00 09/26/18 11:05 Sodium Level 136 mmol/L (136-145) Potassium Level 4.3 mmol/L (3.5-5.1) Chloride Level 97 mmol/L (98-107) Carbon Dioxide Level 34 mmol/L (21-32) Anion Gap 5 (6-14) Blood Urea Nitrogen 23 mg/dL (8-26) Creatinine 0.6 mg/dL (0.7-1.3) Estimated GFR (Cockcroft-Gault) 131.0 Glucose Level 150 mg/dL (70-99) Calcium Level 7.9 mg/dL (8.5-10.1) Phosphorus Level 3.5 mg/dL (2.6-4.7) Magnesium Level 2.0 mg/dL (1.8-2.4) Glucose (Fingerstick) 147 mg/dL (70-99) 150 mg/dL (70-99) 149 mg/dL (70-99) Test 09/26/18 16:34 09/26/18 21:36 09/27/18 00:42 09/27/18 05:20 Glucose (Fingerstick) 219 mg/dL (70-99) 194 mg/dL (70-99) 173 mg/dL (70-99) Sodium Level 137 mmol/L (136-145) Potassium Level 4.0 mmol/L (3.5-5.1) Chloride Level 99 mmol/L (98-107) Carbon Dioxide Level 34 mmol/L (21-32) Anion Gap 4 (6-14) Blood Urea Nitrogen 21 mg/dL (8-26) Creatinine 0.5 mg/dL (0.7-1.3) Estimated GFR (Cockcroft-Gault) 161.7 Glucose Level 152 mg/dL (70-99) Calcium Level 8.0 mg/dL (8.5-10.1) Phosphorus Level 3.3 mg/dL (2.6-4.7) Magnesium Level 2.1 mg/dL (1.8-2.4) Triglycerides Level 119 mg/dL (0-150) Test 09/27/18 05:32 Glucose (Fingerstick) 136 mg/dL (70-99) Laboratory Tests Test 09/26/18 11:05 09/26/18 16:34 09/26/18 21:36 09/27/18 00:42 Glucose (Fingerstick) 149 mg/dL (70-99) 219 mg/dL (70-99) 194 mg/dL (70-99) 173 mg/dL (70-99) Test 09/27/18 05:20 09/27/18 05:32 Sodium Level 137 mmol/L (136-145) Potassium Level 4.0 mmol/L (3.5-5.1) Chloride Level 99 mmol/L (98-107) Carbon Dioxide Level 34 mmol/L (21-32) Anion Gap 4 (6-14) Blood Urea Nitrogen 21 mg/dL (8-26) Creatinine 0.5 mg/dL (0.7-1.3) Estimated GFR (Cockcroft-Gault) 161.7 Glucose Level 152 mg/dL (70-99) Calcium Level 8.0 mg/dL (8.5-10.1) Phosphorus Level 3.3 mg/dL (2.6-4.7) Magnesium Level 2.1 mg/dL (1.8-2.4) Triglycerides Level 119 mg/dL (0-150) Glucose (Fingerstick) 136 mg/dL (70-99) Medications Active Scripts Medications Dose Route/Sig Max Daily Dose Days Date Category Magnesium Chloride 70 Mg Tablet. 64 Mg PO DAILY 30 08/30/18 Rx Synthroid (Levothyroxine Sodium) 88 Mcg Tablet 88 Mcg PO DAILY06 30 08/30/18 Rx Prednisone 20 Mg Tablet 20 Mg PO DAILY 30 08/30/18 Rx Budesonide 0.5 Mg/2 Ml Ampul.neb 0.5 Mg NEB RTBID 30 08/30/18 Rx Diltiazem 24HR Cd (Diltiazem Hcl) 180 Mg Cap.er.24h 180 Mg PO DAILY 90 08/30/18 Rx Hydrocodone-Apap 7.5-325 (Hydrocodone Bit/Acetaminophen) 1 Tab Tablet 1 Tab PO PRN Q6HRS PRN 08/26/18 Reported Prednisolone Sodium Phosphate (Prednisolone Sod Phosphate) 15 Mg/5 Ml Solution 15 Mg PO DAILY 08/26/18 Reported Omeprazole 40 Mg Capsule. 40 Mg PO DAILY 08/26/18 Reported Cartia Xt (Diltiazem Hcl) 120 Mg Cap.er.24h 120 Mg PO DAILY 08/26/18 Reported Prednisone (Prednisone) 10 Mg Tablet 40 Mg PO DAILY 30 07/16/18 Rx Klor-Con 10 (Potassium Chloride) 10 Meq Tablet.er 1 Tab PO DAILY 07/16/18 Rx Lasix (Furosemide) 40 Mg Tablet 1 Tab PO DAILY 07/16/18 Rx Aspirin Ec (Aspirin) 81 Mg Tablet. 81 Mg PO DAILYWBKFT 30 07/16/18 Rx Duoneb 0.5-3(2.5) Mg/3 Ml (Albuterol/Ipratropium) 3 Ml Ampul.neb 3 Ml NEB RTQID 30 07/01/18 Rx Diltiazem 24HR Cd (Diltiazem Hcl) 120 Mg Cap.er.24h 120 Mg PO DAILY 30 07/01/18 Rx Wellbutrin Xl (Bupropion Hcl) 150 Mg Tab.er.24h 1 Tab PO DAILY 06/30/18 Reported Omeprazole 40 Mg Capsule. 1 Cap PO 10/25/[address] of abd 09/25 1. Bibasilar consolidation in the lungs may be secondary to atelectasis or pneumonia superimposed on interstitial lung disease. 2. Dilated jejunal loop may be secondary to ileus or obstruction. Findings not significant changed when compared to previous exam. 3. Stable segment 7 liver lesion, nonspecific but has been present since July 2017 and most likely a benign entity given interval stability. Impression . IMPRESSION: 1. Chronic hypoxic respiratory failure. 2. Pulmonary fibrosis.ON CHRONIC STEROIDS 3. Small-bowel obstruction. S/P SURGERY / likely post-op ileus 4. Bibasilar consolidation, atelectasis vs infilt will monitor PREOPERATIVE DIAGNOSIS: Small bowel obstruction. POSTOPERATIVE DIAGNOSIS: Small bowel obstruction, secondary to adhesive band. PROCEDURE: Diagnostic laparoscopy, followed by laparotomy with release of small-bowel obstruction and decompression of the small bowel. Plan . TPN for nutrition diet per surgery BD, nebulizer treatments incentive spirometry, elevate hob Lovenox, Protonix for prophylaxis cont solumedrol 20 mg daily, change to PO when he is able to eat increase activity discussed w pt, rn AR HINES MD Sep 27, 2018 10:30
[2018-09-27 11:00] VITALS: BP 100/63
[2018-09-27] MEDS: TPN PER PHARMACY MC PRN ×3 (12:56→14:14)
--- NOTE | 2018-09-27 14:15 | NUR ---
Pharmacy TPN Dosing Note S: JOHN ROBBINS is a 78 year old M Currently receiving Central Continuous TPN started 09/15/18 B:Pertinent PMH: SBO Height: 5 feet, 10 inches Weight: [id number] kg Current diet: NPO LABS: Sodium: 137 Potassium: 4.0 Chloride: 99 Calcium: 8.0 Corrected Calcium: 9.44 Magnesium: 2.1 CO2: 34 SCr: 0.5 Glucose: 136 Albumin: 2.2 AST: 27 ALT: 38 TPN FORMULA: TPN TYPE: Central Continuous AMINO ACIDS: 65 gm DEXTROSE: 225 gm LIPIDS: 20 gm SODIUM CHLORIDE: 60 mEq SODIUM ACETATE: 30 mEq SODIUM PHOSPHATE: mmol POTASSIUM CHLORIDE: 20 mEq POTASSIUM ACETATE: - mEq POTASSIUM PHOSPHATE: 20.4 mmol MAGNESIUM: 10 mEq CALCIUM: 10 mEq INSULIN: units MULTIPLE VITAMIN: 10 ml TRACE ELEMENTS: 1 ml(s) TPN PLAN: no changes in tpn R: Continue TPN AT 63ML/HR Will monitor electrolytes, glucose, and tolerance to TPN. JAKE MORALES [facility], 09/27/18 1331
[2018-09-27 15:00] VITALS: BP 105/67
--- NOTE | 2018-09-27 15:35 | PDOC ---
PROGRESS NOTES Subjective Subjective Patient feels better passing gas reported but no BM. Objective Objective Vital Signs Date Time Temp Pulse Resp B/P (MAP) Pulse Ox O2 Delivery O2 Flow Rate FiO2 09/27/18 15:10 Nasal Cannula 3.0 09/27/18 12:25 18 09/27/18 11:00 97.8 89 100/63 (75) 99 97.8 Intake and Output 09/27/18 07:00 Output Total 200 ml Balance -200 ml Output Urine Total 200 ml Physical Exam Abdomen: Other (minmal BS noted) Heart: Regular rate Extremities: No edema General: Alert Lungs: Other (course BS bases) Assessment Assessment Problems Medical Problems: (1) Generalized weakness Status: Acute Recurrent ileus Small bowel obstruction status post open reduction S/P open lap lysis of adhesion and SBO take down POD #13 Severe Protein Malnutrition Debilitation PAST MEDICAL HISTORY: Significant for: 1. Pulmonary fibrosis. 2. COPD. 3. SVT. 4. Hypertension. 5. Osteoarthritis. 6. Gastroesophageal reflux disease, status post dilatation of stricture. 7. Hypothyroidism. 8. BPH. 9. Ivpkm-di-hgpwryr diastolic congestive heart failure. 10. Severe protein malnutrition. 11. History of prostate cancer. 12. History of hepatitis C. 13. Major depression. Plan Plan of Care Continue PT/Ot Await bowel function TPN follow labs Comment Review of Relevant I have reviewed the following items sherine (where applicable) has been applied. Labs Laboratory Tests Test 09/25/18 16:59 09/25/18 20:49 09/26/18 00:00 09/26/18 05:20 Glucose (Fingerstick) 206 mg/dL (70-99) 147 mg/dL (70-99) 137 mg/dL (70-99) Sodium Level 136 mmol/L (136-145) Potassium Level 4.3 mmol/L (3.5-5.1) Chloride Level 97 mmol/L (98-107) Carbon Dioxide Level 34 mmol/L (21-32) Anion Gap 5 (6-14) Blood Urea Nitrogen 23 mg/dL (8-26) Creatinine 0.6 mg/dL (0.7-1.3) Estimated GFR (Cockcroft-Gault) 131.0 Glucose Level 150 mg/dL (70-99) Calcium Level 7.9 mg/dL (8.5-10.1) Phosphorus Level 3.5 mg/dL (2.6-4.7) Magnesium Level 2.0 mg/dL (1.8-2.4) Test 09/26/18 05:22 09/26/18 08:00 09/26/18 11:05 09/26/18 16:34 Glucose (Fingerstick) 147 mg/dL (70-99) 150 mg/dL (70-99) 149 mg/dL (70-99) 219 mg/dL (70-99) Test 09/26/18 21:36 09/27/18 00:42 09/27/18 05:20 09/27/18 05:32 Glucose (Fingerstick) 194 mg/dL (70-99) 173 mg/dL (70-99) 136 mg/dL (70-99) Sodium Level 137 mmol/L (136-145) Potassium Level 4.0 mmol/L (3.5-5.1) Chloride Level 99 mmol/L (98-107) Carbon Dioxide Level 34 mmol/L (21-32) Anion Gap 4 (6-14) Blood Urea Nitrogen 21 mg/dL (8-26) Creatinine 0.5 mg/dL (0.7-1.3) Estimated GFR (Cockcroft-Gault) 161.7 Glucose Level 152 mg/dL (70-99) Calcium Level 8.0 mg/dL (8.5-10.1) Phosphorus Level 3.3 mg/dL (2.6-4.7) Magnesium Level 2.1 mg/dL (1.8-2.4) Triglycerides Level 119 mg/dL (0-150) Test 09/27/18 11:39 Glucose (Fingerstick) 117 mg/dL (70-99) Laboratory Tests Test 09/26/18 16:34 09/26/18 21:36 09/27/18 00:42 09/27/18 05:20 Glucose (Fingerstick) 219 mg/dL (70-99) 194 mg/dL (70-99) 173 mg/dL (70-99) Sodium Level 137 mmol/L (136-145) Potassium Level 4.0 mmol/L (3.5-5.1) Chloride Level 99 mmol/L (98-107) Carbon Dioxide Level 34 mmol/L (21-32) Anion Gap 4 (6-14) Blood Urea Nitrogen 21 mg/dL (8-26) Creatinine 0.5 mg/dL (0.7-1.3) Estimated GFR (Cockcroft-Gault) 161.7 Glucose Level 152 mg/dL (70-99) Calcium Level 8.0 mg/dL (8.5-10.1) Phosphorus Level 3.3 mg/dL (2.6-4.7) Magnesium Level 2.1 mg/dL (1.8-2.4) Triglycerides Level 119 mg/dL (0-150) Test 09/27/18 05:32 09/27/18 11:39 Glucose (Fingerstick) 136 mg/dL (70-99) 117 mg/dL (70-99) Medications Current Medications Famotidine (Pepcid Vial) 20 mg 1X ONCE IVP Last administered on 09/12/18 18: 07; Start 09/12/18 at 17:45; Stop 09/12/18 at 17:46; Status DC Ondansetron HCl (Zofran) 4 mg 1X ONCE IV Last administered on 09/12/18 18:07 ; Start 09/12/18 at 17:45; Stop 09/12/18 at 17:46; Status DC Iohexol (Omnipaque 300 Mg/ml) 75 ml 1X ONCE IV Last administered on 09/12/18at 18:35; Start 09/12/18 at 18:30; Stop 09/12/18 at 18:34; Status DC Info (CONTRAST GIVEN -- Rx MONITORING) 1 each PRN DAILY PRN MC SEE COMMENTS; Start 09/12/18 at 18:45; Stop 09/14/18 at 18:44; Status DC Fentanyl Citrate (Fentanyl 2ml Vial) 50 mcg 1X ONCE IV Last administered on 05/21at 20:21; Start 09/12/18 at 20:00; Stop 09/12/18 at 20:01; Status DC Ondansetron HCl (Zofran) 4 mg PRN Q8HRS PRN IV NAUSEA/VOMITING; Start 09/12/18 at 20:30; Stop 09/13/18 at 20:29; Status DC Morphine Sulfate (Morphine Sulfate) 4 mg PRN Q2HR PRN IV PAIN Last administered on 09/13/18at 10:20; Start 09/12/18 at 20:30; Stop 09/13/18 at 20:29 ; Status DC Metronidazole 100 ml @ 100 mls/hr Q8HRS IV Last administered on 09/20/18at 06: 30; Start 09/12/18 at 22:00; Stop 09/20/18 at 10:42; Status DC Ciprofloxacin/ Dextrose 200 ml @ 200 mls/hr 1X ONCE IV Last administered on at 22:51; Start 09/12/18 at 20:30; Stop 09/12/18 at 21:29; Status DC Sodium Chloride 1,000 ml @ 75 mls/hr 1X ONCE IV Last administered on 22:51; Start 09/12/18 at 20:30; Stop 09/13/18 at 09:49; Status DC Budesonide (Pulmicort) 0.5 mg RTBID NEB Last administered on 09/27/18 06:02; Start 09/13/18 at 09:30 Albuterol/ Ipratropium (Duoneb) 3 ml RTQID NEB Last administered on 09/27/18at 15:10; Start 09/13/18 at 09:30 Methylprednisolone Sodium Succinate (SOLU-Medrol 40MG VIAL) 20 mg DAILY IV Last administered on 09/13/18at 10:21; Start 09/13/18 at 10:00; Stop 09/14/18 at 12:55; Status DC Pantoprazole Sodium (PROTONIX VIAL for IV PUSH) 40 mg DAILYAC IVP Last administered on 09/21/18at 06:34; Start 09/13/18 at 10:00; Stop 09/21/18 at 09:13 ; Status DC Enoxaparin Sodium (Lovenox 40mg Syringe) 40 mg Q24H SQ Last administered on 09:31; Start 09/13/18 at 10:00 Metoprolol Tartrate (Lopressor Vial) 5 mg Q6HRS IVP Last administered on at 06:41; Start 09/13/18 at 14:00; Stop 09/19/18 at 11:39; Status DC Potassium Chloride/Water 100 ml @ 100 mls/hr Q1H IV Last administered on at 17:10; Start 09/13/18 at 14:00; Stop 09/13/18 at 17:59; Status DC Throat Lozenges (Chloraseptic) 1 spray PRN Q2HR PRN PO SORE THROAT, 2nd choice Last administered on 09/14/18at 13:47; Start 09/13/18 at 16:45 Throat Lozenges (Cepacol Sore Throat Lozenge) 1 deniz PRN Q2HRS PRN PO SORE THROAT, 1st choice Last administered on 09/14/18at 13:46; Start 09/13/18 at 16:45 Aspirin (Aspirin) 300 mg DAILY [place] Last administered on 09/17/18at 11:25; Start 09/14/18 at 09:00; Stop 09/18/18 at 13:30; Status DC Morphine Sulfate (Morphine Sulfate) 4 mg PRN Q2HR PRN IV MODERATE PAIN, SEVERE PAIN Last administered on 09/18/18 21:59; Start 09/13/18 at 21:15; Stop at 09:10; Status DC Barium Sulfate (E-Z-Hd) 680 gm 1X ONCE PO ; Start 09/14/18 at 08:00; Stop 09/14 at 08:01; Status DC Iohexol (Omnipaque 300 Mg/ml) 400 ml 1X ONCE PO Last administered on at 08:00; Start 09/14/18 at 08:00; Stop 09/14/18 at 08:01; Status DC Info (CONTRAST GIVEN -- Rx MONITORING) 1 each PRN DAILY PRN MC SEE COMMENTS; Start 09/14/18 at 08:00; Stop 09/16/18 at 07:59; Status DC Potassium Chloride/Water 100 ml @ 100 mls/hr Q1H IV ; Start 09/14/18 at 09:00; Stop 09/14/18 at 12:59; Status DC Methylprednisolone Sodium Succinate (SOLU-Medrol 125MG VIAL) 125 mg DAILY IV Last administered on 09/20/18at 09:01; Start 09/15/18 at 09:00; Stop 09/20/18 at 13:23; Status DC Info (Tpn Per Pharmacy) 1 each PRN DAILY PRN MC SEE COMMENTS Last administered on 09/14/18at 13:51; Start 09/14/18 at 13:30; Stop 09/14/18 at 14:27; Status DC Info (Tpn Per Pharmacy) 1 each PRN DAILY PRN MC SEE COMMENTS Last administered on 09/18/18at 09:54; Start 09/15/18 at 14:30; Stop 09/19/18 at 11:39; Status DC Amino Acids/ Glycerin/ Electrolytes 1,000 ml @ 80 mls/hr [id number] IV Last administered on 09/15/18at 03:32; Start 09/14/18 at 14:30; Stop 09/15/18 at 21:59 ; Status DC Cefazolin Sodium/ Dextrose 50 ml @ 100 mls/hr 1X PREOP PRN IV protocol Last administered on 09/14/18at 17:40; Start 09/15/18 at 06:00; Stop 09/15/18 at 18:00 ; Status DC Metronidazole 100 ml @ 100 mls/hr 1X PREOP PRN IV protocol; Start 09/15/18 at 06:00; Stop 09/15/18 at 18:00; Status DC Ondansetron HCl (Zofran) 4 mg PRN Q6HRS PRN IV NAUSEA/VOMITING; Start 09/14/18 at 16:00; Stop 09/15/18 at 01:45; Status DC Fentanyl Citrate (Fentanyl 2ml Vial) 25 mcg PRN Q5MIN PRN IV MILD PAIN; Start 09/14/18 at 16:00; Stop 09/15/18 at 01:40; Status DC Fentanyl Citrate (Fentanyl 2ml Vial) 50 mcg PRN Q5MIN PRN IV MODERATE TO SEVERE PAIN Last administered on 09/14/18at 20:27; Start 09/14/18 at 16:00; Stop 09/15/18 at 01:40; Status DC Morphine Sulfate (Morphine Sulfate) 1 mg PRN Q10MIN PRN IV SEVERE PAIN Last administered on 09/14/18at 21:51; Start 09/14/18 at 16:00; Stop 09/15/18 at 01:40 ; Status DC Ringer's Solution 1,000 ml @ 30 mls/hr Q24H IV Last administered on 09/14/18at 21:30; Start 09/14/18 at 15:52; Stop 09/15/18 at 01:40; Status DC Lidocaine HCl (Xylocaine-Mpf 1% 2ml Vial) 2 ml 1X PRN PRN ID IV START; Start at 16:00; Stop 09/15/18 at 15:59; Status DC Hydromorphone HCl (Dilaudid) 0.5 mg PRN Q10MIN PRN IV SEV PAIN, Second choice; Start 09/14/18 at 16:00; Stop 09/15/18 at 01:45; Status DC Prochlorperazine Edisylate (Compazine) 5 mg PACU PRN PRN IV NAUSEA, MRX1 Last administered on 09/14/18at 21:02; Start 09/14/18 at 16:00; Stop 09/15/18 at 01:40 ; Status DC Cefazolin Sodium/ Dextrose 50 ml @ As Directed STK-MED ONCE IV ; Start 09/14/18 at 16:08; Stop 09/14/18 at 16:09; Status DC Propofol 20 ml @ As Directed STK-MED ONCE IV ; Start 09/14/18 at 16:32; Stop 07/21 at 16:33; Status DC Dexamethasone Sodium Phosphate (Decadron) 20 mg STK-MED ONCE .ROUTE ; Start 07/21 at 16:32; Stop 09/14/18 at 16:33; Status DC Lidocaine HCl (Lidocaine Pf 2% Vial) 5 ml STK-MED ONCE .ROUTE ; Start 09/14/18 at 16:32; Stop 09/14/18 at 16:33; Status DC Ondansetron HCl (Zofran) 4 mg STK-MED ONCE .ROUTE ; Start 09/14/18 at 16:32; Stop 09/14/18 at 16:33; Status DC Succinylcholine Chloride (Anectine) 200 mg STK-MED ONCE .ROUTE ; Start 09/14/18 at 16:32; Stop 09/14/18 at 16:33; Status DC Rocuronium [place] (Zemuron) 50 mg STK-MED ONCE .ROUTE ; Start 09/14/18 at 16:32 ; Stop 09/14/18 at 16:33; Status DC Fentanyl Citrate (Fentanyl 2ml Vial) 100 mcg STK-MED ONCE .ROUTE ; Start at 16:32; Stop 09/14/18 at 16:33; Status DC Bupivacaine HCl/ Epinephrine Bitart (Sensorcain-Mpf Epi 0.5%-1:[id number]) 30 ml STK -MED ONCE .ROUTE Last administered on 09/14/18at 17:57; Start 09/14/18 at 17:18 ; Stop 09/14/18 at 17:19; Status DC Cefazolin Sodium/ Dextrose 50 ml @ As Directed STK-MED ONCE IV ; Start 09/14/18 at 17:28; Stop 09/14/18 at 17:29; Status DC Lidocaine HCl (Glydo (Lidocaine) Jelly) 6 marcel STK-MED ONCE .ROUTE ; Start at 17:43; Stop 09/14/18 at 17:44; Status DC Hydrocortisone Sodium Succinate (Solu-CORTEF) 100 mg STK-MED ONCE .ROUTE ; Start 09/14/18 at 18:08; Stop 09/14/18 at 18:09; Status DC Phenylephrine HCl (Shaw-Synephrine Inj) 10 mg STK-MED ONCE .ROUTE ; Start at 18:11; Stop 09/14/18 at 18:12; Status DC Glycopyrrolate (Robinul) 1 mg STK-MED ONCE .ROUTE ; Start 09/14/18 at 19:05; Stop 09/14/18 at 19:06; Status DC Sevoflurane (Ultane) 60 ml STK-MED ONCE IH ; Start 09/14/18 at 19:23; Stop 09/14 at 19:24; Status DC Enoxaparin Sodium (Lovenox 40mg Syringe) 30 mg Q24H SQ ; Start 09/14/18 at 19:45 ; Status UNV Sodium Chloride (Normal Saline Flush) 3 ml QSHIFT PRN IV AFTER MEDS AND BLOOD DRAWS; Start 09/14/18 at 19:45 Hydromorphone HCl 30 ml @ 0 mls/hr CONT PRN PRN IV PER PROTOCOL Last administered on 09/14/18at 20:25; Start 09/14/18 at 19:45; Stop 09/15/18 at 08:34 ; Status DC Ondansetron HCl (Zofran) 4 mg PRN Q6HRS PRN IV NAUESA, 1ST CHOICE Last administered on 09/22/18at 08:47; Start 09/14/18 at 19:45 Ringer's Solution 1,000 ml @ 75 mls/hr [id number] IV Last administered on at 21:00; Start 09/14/18 at 21:00; Stop 09/15/18 at 01:45; Status DC Lorazepam (Ativan) 0.5 mg PRN Q6HRS PRN IV ANXIETY / AGITATION; Start 09/14/18 at 22:15 Albumin Human 250 ml @ 83.3 mls/hr 1X ONCE IV Last administered on 09/15/18at 01:15; Start 09/15/18 at 01:00; Stop 09/15/18 at 04:00; Status DC Hydromorphone HCl (Dilaudid) 0.5 mg PRN Q3HRS PRN IV MILD PAIN Last administered on 09/27/18 11:48; Start 09/15/18 at 08:30 Albumin Human 500 ml @ 125 mls/hr 1X ONCE IV Last administered on 09/15/18at 10:23; Start 09/15/18 at 09:00; Stop 09/15/18 at 12:59; Status DC Sodium Chloride 250 ml @ 500 mls/hr 1X ONCE IV Last administered on at 11:00; Start 09/15/18 at 11:00; Stop 09/15/18 at 11:29; Status DC Sodium Chloride 1,000 ml @ 100 mls/hr Q10H IV Last administered on 09/15/18at 11:30; Start 09/15/18 at 11:30; Stop 09/15/18 at 22:00; Status DC Sodium Chloride 1,000 ml @ 75 mls/hr [id number] IV Last administered on at 00:12; Start 09/15/18 at 22:00; Stop 09/17/18 at 12:12; Status DC Sodium Acetate 90 meq/Potassium Chloride 50 meq/ Potassium Phosphate 3.4 mmol/ Magnesium Sulfate 10 meq/ Calcium Gluconate 10 meq/ Multivitamins 10 ml/Chromium / Copper/Manganese/ Seleni/Zn 1 ml/ Total Parenteral Nutrition/Amino Acids/ Dextrose/ Fat Emulsion Intravenous 1,512 ml @ 63 mls/hr TPN CONT IV Last administered on 09/15/18at 21:43; Start 09/15/18 at 22:00; Stop 09/16/18 at 21:59 ; Status DC Lidocaine/Sodium Bicarbonate (Buffered Lidocaine 1%) 3 ml STK-MED ONCE .ROUTE ; Start 09/15/18 at 14:35; Stop 09/15/18 at 14:36; Status DC Heparin Sodium/ Sodium Chloride 500 ml @ As Directed STK-MED ONCE .ROUTE ; Start 09/15/18 at 14:35; Stop 09/15/18 at 14:36; Status DC Heparin Sodium/ Sodium Chloride 500 ml @ As Directed STK-MED ONCE .ROUTE ; Start 09/15/18 at 14:36; Stop 09/15/18 at 14:37; Status DC Heparin Sodium/ Sodium Chloride (HEPARIN for ARTERIAL LINE FLUSH) 1,000 unit 1X ONCE IART Last administered on 09/15/18at 15:15; Start 09/15/18 at 15:15; Stop 09/15/18 at 15:16; Status DC Lidocaine/Sodium Bicarbonate (Buffered Lidocaine 1%) 3 ml 1X ONCE IJ Last administered on 09/15/18at 15:15; Start 09/15/18 at 15:15; Stop 09/15/18 at 15:16 ; Status DC Potassium Phosphate 13.6 mmol/Dextrose 104.5333 ml @ 52.267 m... 1X ONCE IV Last administered on 09/16/18at 09:53; Start 09/16/18 at 10:00; Stop 09/16/18 at 11:59; Status DC Sodium Acetate 90 meq/Potassium Chloride 50 meq/ Potassium Phosphate 15 mmol/ Magnesium Sulfate 10 meq/Calcium Gluconate 10 meq/ Multivitamins 10 ml/Chromium / Copper/Manganese/ Seleni/Zn 1 ml/ Total Parenteral Nutrition/Amino Acids/ Dextrose/ Fat Emulsion Intravenous 1,512 ml @ 63 mls/hr TPN CONT IV Last administered on 09/16/18at 21:49; Start 09/16/18 at 22:00; Stop 09/17/18 at 21:59 ; Status DC Albuterol/ Ipratropium (Duoneb) 3 ml RTQID NEB ; Start 09/16/18 at 12:00; Stop 09/16/18 at 12:00; Status DC Sodium Chloride 1,000 ml @ 75 mls/hr [id number] IV Last administered on at 06:20; Start 09/17/18 at 13:00; Stop 09/19/18 at 11:39; Status DC Potassium Phosphate 13.6 mmol/Dextrose 104.5333 ml @ 52.267 m... ONCE ONCE IV Last administered on 09/17/18 14:14; Start 09/17/18 at 13:00; Stop 09/17/18 at 14:59; Status DC Sodium Acetate 90 meq/Potassium Acetate 40 meq/ Potassium Phosphate 20.4 mmol/ Magnesium Sulfate 10 meq/ Calcium Gluconate 10 meq/ Multivitamins 10 ml/Chromium / Copper/Manganese/ Seleni/Zn 1 ml/ Total Parenteral Nutrition/Amino Acids/ Dextrose/ Fat Emulsion Intravenous 1,512 ml @ 63 mls/hr TPN CONT IV Last administered on 09/17/18 23:14; Start 09/17/18 at 22:00; Stop 09/18/18 at 21:59 ; Status DC Sodium Acetate 90 meq/Potassium Acetate 40 meq/ Potassium Phosphate 20.4 mmol/ Magnesium Sulfate 10 meq/ Calcium Gluconate 10 meq/ Multivitamins 10 ml/Chromium / Copper/Manganese/ Seleni/Zn 1 ml/ Total Parenteral Nutrition/Amino Acids/ Dextrose/ Fat Emulsion Intravenous 1,512 ml @ 63 mls/hr TPN CONT IV Last administered on 09/18/18at 21:51; Start 09/18/18 at 22:00; Stop 09/19/18 at 11:39 ; Status DC Aspirin (Ecotrin) 325 mg [id number] PO Last administered on 09/27/18 08:21; Start 09/18/18 at 13:30 Acetaminophen/ Hydrocodone Bitart (Lortab 10/325) 1 tab PRN Q6HRS PRN PO PAIN Last administered on 09/24/18 21:25; Start 09/19/18 at 10:15 Levothyroxine Sodium (Synthroid) 88 mcg DAILY06 PO Last administered on 05:33; Start 09/19/18 at 15:30 Diltiazem HCl (Cardizem 24hr Cd) 120 mg DAILY PO Last administered on 09:31; Start 09/19/18 at 12:00 Info (Tpn Per Pharmacy) 1 each PRN DAILY PRN MC SEE COMMENTS Last administered on 09/27/18 14:14; Start 09/20/18 at 11:30 Sodium Acetate 90 meq/Potassium Acetate 40 meq/ Potassium Phosphate 20.4 mmol/ Magnesium Sulfate 10 meq/ Calcium Gluconate 10 meq/ Multivitamins 10 ml/Chromium / Copper/Manganese/ Seleni/Zn 1 ml/ Total Parenteral Nutrition/Amino Acids/ Dextrose/ Fat Emulsion Intravenous 1,512 ml @ 63 mls/hr TPN CONT IV Last administered on 09/20/18at 21:23; Start 09/20/18 at 22:00; Stop 09/21/18 at 21:59 ; Status DC Methylprednisolone Sodium Succinate (SOLU-Medrol 125MG VIAL) 60 mg DAILY IV ; Start 09/21/18 at 09:00; Stop 09/21/18 at 09:10; Status DC Insulin Human Lispro (HumaLOG) 0-5 UNITS TIDWMEALS SQ ; Start 09/21/18 at 08:00 ; Stop 09/21/18 at 09:08; Status DC Dextrose (Dextrose 50%-Water Syringe) 12.5 gm PRN Q15MIN PRN IV SEE COMMENTS; Start 09/21/18 at 00:00 Insulin Human Lispro (HumaLOG) 0-12 UNITS QIDACHS SQ Last administered on at 16:46; Start 09/21/18 at 11:30 Prednisone (Prednisone) 40 mg DAILY PO Last administered on 09/22/18at 08:44; Start 09/21/18 at 10:00; Stop 09/24/18 at 09:22; Status DC Pantoprazole Sodium (Protonix) 40 mg DAILYAC PO Last administered on 09/22/18at 07:01; Start 09/22/18 at 07:30; Stop 09/24/18 at 09:21; Status DC Sodium Acetate 90 meq/Potassium Acetate 40 meq/ Potassium Phosphate 20.4 mmol/ Magnesium Sulfate 10 meq/ Calcium Gluconate 10 meq/ Multivitamins 10 ml/Chromium / Copper/Manganese/ Seleni/Zn 1 ml/ Total Parenteral Nutrition/Amino Acids/ Dextrose/ Fat Emulsion Intravenous 1,512 ml @ 63 mls/hr TPN CONT IV Last administered on 09/21/18at 21:07; Start 09/21/18 at 22:00; Stop 09/22/18 at 21:59 ; Status DC Sertraline HCl (Zoloft) 25 mg QHS PO Last administered on 09/26/18at 21:52; Start 09/21/18 at 21:00 Sodium Acetate 90 meq/Potassium Acetate 40 meq/ Potassium Phosphate 20.4 mmol/ Magnesium Sulfate 10 meq/ Calcium Gluconate 10 meq/ Multivitamins 10 ml/Chromium / Copper/Manganese/ Seleni/Zn 1 ml/ Total Parenteral Nutrition/Amino Acids/ Dextrose/ Fat Emulsion Intravenous 1,512 ml @ 63 mls/hr TPN CONT IV Last administered on 09/22/18at 21:11; Start 09/22/18 at 22:00; Stop 09/23/18 at 21:59 ; Status DC Sodium Acetate 90 meq/Potassium Acetate 40 meq/ Potassium Phosphate 20.4 mmol/ Magnesium Sulfate 10 meq/ Calcium Gluconate 10 meq/ Multivitamins 10 ml/Chromium / Copper/Manganese/ Seleni/Zn 1 ml/ Insulin Human Regular 10 unit/ Total Parenteral Nutrition/Amino Acids/Dextrose/ Fat Emuls... 1,512 ml @ 63 mls/hr TPN CONT IV Last administered on 09/23/18at 21:22; Start 09/23/18 at 22:00; Stop 09/24/18 at 21:59; Status DC Insulin Human Lispro (HumaLOG) 5 units Q6HRS SQ Last administered on 09/27/18at 05:39; Start 09/23/18 at 18:00 Pantoprazole Sodium (PROTONIX VIAL for IV PUSH) 40 mg 1X ONCE IVP Last administered on 09/23/18at 13:03; Start 09/23/18 at 12:30; Stop 09/23/18 at 12:31 ; Status DC Methylprednisolone Sodium Succinate (SOLU-Medrol 40MG VIAL) 40 mg 1X ONCE IV Last administered on 09/23/18at 13:03; Start 09/23/18 at 12:30; Stop 09/23/18 at 12:31; Status DC Pantoprazole Sodium (PROTONIX VIAL for IV PUSH) 40 mg 1X ONCE IVP Last administered on 09/24/18at 09:07; Start 09/24/18 at 08:00; Stop 09/24/18 at 08:02 ; Status DC Methylprednisolone Sodium Succinate (SOLU-Medrol 40MG VIAL) 40 mg DAILY IV Last administered on 09/25/18at 08:01; Start 09/24/18 at 10:00; Stop 09/25/18 at 10:07; Status DC Pantoprazole Sodium (PROTONIX VIAL for IV PUSH) 40 mg DAILYAC IVP Last administered on 09/27/18at 07:58; Start 09/24/18 at 10:00 Sodium Acetate 90 meq/Potassium Chloride 20 meq/ Potassium Phosphate 20.4 mmol/ Magnesium Sulfate 10 meq/ Calcium Gluconate 10 meq/ Multivitamins 10 ml/Chromium / Copper/Manganese/ Seleni/Zn 1 ml/ Insulin Human Regular 10 unit/ Total Parenteral Nutrition/Amino Acids/Dextrose/ Fat Emuls... 1,512 ml @ 63 mls/hr TPN CONT IV Last administered on 09/24/18at 21:32; Start 09/24/18 at 22:00; Stop 09/25/18 at 21:59; Status DC Iohexol (Omnipaque 300 Mg/ml) 75 ml 1X ONCE IV Last administered on 09/24/18at 20:50; Start 09/24/18 at 19:00; Stop 09/24/18 at 19:01; Status DC Info (CONTRAST GIVEN -- Rx MONITORING) 1 each PRN DAILY PRN MC SEE COMMENTS; Start 09/24/18 at 19:15; Stop 09/26/18 at 19:14; Status DC Iohexol (Omnipaque 240 Mg/ml) 30 ml 1X ONCE PO Last administered on 09/25/18at 09:00; Start 09/25/18 at 09:00; Stop 09/25/18 at 09:01; Status DC Iohexol (Omnipaque 300 Mg/ml) 75 ml 1X ONCE IV Last administered on 09/25/18at 09:00; Start 09/25/18 at 09:00; Stop 09/25/18 at 09:01; Status DC Info (CONTRAST GIVEN -- Rx MONITORING) 1 each PRN DAILY PRN MC SEE COMMENTS; Start 09/25/18 at 09:00; Stop 09/27/18 at 08:59; Status DC Methylprednisolone Sodium Succinate (SOLU-Medrol 40MG VIAL) 20 mg DAILY IV Last administered on 09/27/18at 08:20; Start 09/26/18 at 09:00 Sodium Acetate 90 meq/Potassium Chloride 20 meq/ Potassium Phosphate 20.4 mmol/ Magnesium Sulfate 10 meq/ Calcium Gluconate 10 meq/ Multivitamins 10 ml/Chromium / Copper/Manganese/ Seleni/Zn 1 ml/ Insulin Human Regular 10 unit/ Total Parenteral Nutrition/Amino Acids/Dextrose/ Fat Emuls... 1,512 ml @ 63 mls/hr TPN CONT IV Last administered on 09/25/18at 21:45; Start 09/25/18 at 22:00; Stop 09/26/18 at 21:59; Status DC Sodium Chloride 60 meq/Sodium Acetate 30 meq/ Potassium Chloride 20 meq/ Potassium Phosphate 20.4 mmol/Magnesium Sulfate 10 meq/ Calcium Gluconate 10 meq / Multivitamins 10 ml/Chromium/ Copper/Manganese/ Seleni/Zn 1 ml/ Insulin Human Regular 10 unit/ Total Parenteral Nutrition/Am... 1,512 ml @ 63 mls/hr TPN CONT IV Last administered on 09/26/18at 21:52; Start 09/26/18 at 22:00; Stop at 21:59 Sodium Chloride 60 meq/Sodium Acetate 30 meq/ Potassium Chloride 20 meq/ Potassium Phosphate 20.4 mmol/Magnesium Sulfate 10 meq/ Calcium Gluconate 10 meq / Multivitamins 10 ml/Chromium/ Copper/Manganese/ Seleni/Zn 1 ml/ Insulin Human Regular 10 unit/ Total Parenteral Nutrition/Am... 1,512 ml @ 63 mls/hr TPN CONT IV ; Start 09/27/18 at 22:00; Stop 09/28/18 at 21:59 Active Scripts Active Magnesium Chloride 70 Mg Tablet. 64 Mg PO DAILY 30 Days Synthroid (Levothyroxine Sodium) 88 Mcg Tablet 88 Mcg PO DAILY06 30 Days Prednisone 20 Mg Tablet 20 Mg PO DAILY 30 Days Budesonide 0.5 Mg/2 Ml Ampul.neb 0.5 Mg NEB RTBID 30 Days Diltiazem 24HR Cd (Diltiazem Hcl) 180 Mg Cap.er.24h 180 Mg PO DAILY 90 Days Prednisone (Prednisone) 10 Mg Tablet 40 Mg PO DAILY 30 Days Klor-Con 10 (Potassium Chloride) 10 Meq Tablet.er 1 Tab PO DAILY Lasix (Furosemide) 40 Mg Tablet 1 Tab PO DAILY Aspirin Ec (Aspirin) 81 Mg Tablet.dr 81 Mg PO DAILYWBKFT 30 Days Duoneb 0.5-3(2.5) Mg/3 Ml (Albuterol/Ipratropium) 3 Ml Ampul.neb 3 Ml NEB RTQID 30 Days Diltiazem 24HR Cd (Diltiazem Hcl) 120 Mg Cap.er.24h 120 Mg PO DAILY 30 Days Reported Hydrocodone-Apap 7.5-325 (Hydrocodone Bit/Acetaminophen) 1 Tab Tablet 1 Tab PO PRN Q6HRS PRN Prednisolone Sodium Phosphate (Prednisolone Sod Phosphate) 15 Mg/5 Ml Solution 15 Mg PO DAILY Omeprazole 40 Mg Capsule.dr 40 Mg PO DAILY Cartia Xt (Diltiazem Hcl) 120 Mg Cap.er.24h 120 Mg PO DAILY Wellbutrin Xl (Bupropion Hcl) 150 Mg Tab.er.24h 1 Tab PO DAILY Omeprazole 40 Mg Capsule.dr 1 Cap PO Vitals/I & O Vital Sign - Last 24 Hours 09/26/18 09/26/18 09/26/18 09/26/18 16:13 16:56 19:00 19:18 Temp 97.8 97.8 Pulse 53 Resp 16 B/P (MAP) 97/63 (74) Pulse Ox 83 98 O2 Delivery Nasal Cannula Nasal Cannula Nasal Cannula Nasal Cannula O2 Flow Rate 3.0 3.0 2.0 3.0 09/26/18 09/26/18 09/26/18 09/26/18 19:19 19:42 21:57 23:00 Temp 97.6 97.6 Pulse 81 Resp 16 B/P (MAP) 120/63 (82) Pulse Ox 98 94 O2 Delivery Nasal Cannula Nasal Cannula Nasal Cannula Nasal Cannula O2 Flow Rate 3.0 4.0 4.0 2.0 09/27/18 09/27/18 09/27/18 09/27/18 03:00 06:03 06:04 07:00 Temp 98.0 97.8 98.0 97.8 Pulse 71 67 Resp 16 18 B/P (MAP) 105/69 (81) 111/57 (75) Pulse Ox 92 98 98 94 O2 Delivery Nasal Cannula Nasal Cannula Nasal Cannula Nasal Cannula O2 Flow Rate 2.0 3.0 3.0 2.0 09/27/18 09/27/18 09/27/18 09/27/18 08:00 08:20 09:31 10:50 Pulse 67 Resp 16 B/P (MAP) 111/57 Pulse Ox 99 O2 Delivery Nasal Cannula Room Air Nasal Cannula O2 Flow Rate 3.0 3.0 09/27/18 09/27/18 09/27/18 09/27/18 11:00 11:48 12:25 15:10 Temp 97.8 97.8 Pulse 89 Resp 18 16 18 B/P (MAP) 100/63 (75) Pulse Ox 99 O2 Delivery Nasal Cannula Nasal Cannula Nasal Cannula Nasal Cannula O2 Flow Rate 2.0 3.0 3.0 3.0 Intake and Output 09/26/18 09/26/18 09/27/18 15:00 23:00 07:00 Output Total 200 ml Balance -200 ml Nutrition Consultation Dietary Evaluation: Recommendations by RD: PPN/TPN Comments: REC continue TPN per followin grams dextrose, 65 grams AA, 20 grams lipid advance diet when able Expected Outcomes/Goals: TPN for nutrition needs s/p abdominal surgery until po intake tolerated w/ solid foods Interpretation of weight loss: >5% in 1 month Malnutrition Findings: Food and Nutrition Intake (Sev: <50% est energy req 5days Weight Status: Underweight LOURDES POLLOCK MD Sep 27, 2018 15:35
[2018-09-27 19:00] VITALS: BP 126/69
[2018-09-27] MEDS: SERTRALINE 25 MG TABLET. PO SCH (21:20)
[2018-09-27] MEDS ORDERED: [UNRECOGNIZED DRUG - OTHER] IV SCH ×12 (22:00)
[2018-09-27] MEDS ORDERED: TOTAL PARENTERAL NUTRITION IV SCH ×12 (22:00)
[2018-09-27] MEDS ORDERED: DEXTROSE 70% IV SCH ×12 (22:00)
[2018-09-27] MEDS ORDERED: AMINO ACID IV SCH ×12 (22:00)
[2018-09-27 23:00] VITALS: BP 98/62
[2018-09-28 02:55] VITALS: BP 102/66
[2018-09-28] MEDS: LEVOTHYROXINE 88 MCG TABLET PO SCH (05:45)
[2018-09-28] MEDS: HYDROmorphone 2 MG/ML VIAL IV PRN ×4 (05:45→23:43)
[2018-09-28] MEDS: INSULIN LISPRO 300 UNITS/3 ML INSULN.PEN. SQ SCH ×8 (05:50→20:33)
[2018-09-28 06:01] LABS: HEMATOCRIT 30.7 % (39.0-53.0); RED BLOOD COUNT 3.18 x10^6/uL (4.30-5.70); RED CELL DISTRIBUTION WIDTH 14.4 % (11.5-14.5); WHITE BLOOD COUNT 11.5 x10^3/uL (4.0-11.0)
[2018-09-28 06:35] LABS: CALCIUM 8.1 mg/dL (8.5-10.1); CREATININE 0.6 mg/dL (0.7-1.3); POTASSIUM 3.9 mmol/L (3.5-5.1)
[2018-09-28 07:00] VITALS: BP 94/52
[2018-09-28] MEDS: BUDESONIDE 0.5 MG/2 ML NEBU. NEB SCH ×2 (07:48→20:06)
[2018-09-28] MEDS: IPRATRPIUM/ALBUTEROL 0.5/2.5MG 3 ML NEBU. NEB SCH ×4 (07:48→20:05)
[2018-09-28] MEDS: methylPREDNISolone SOD SUCC PF 40 MG/ML VIAL. IV SCH (08:36)
[2018-09-28] MEDS: ASPIRIN ENTERIC COATED 325 MG TABLET.DR. PO SCH (08:36)
[2018-09-28] MEDS: PANTOPRAZOLE 40 MG TABLET.DR. PO SCH (08:36)
[2018-09-28] MEDS: HYDROcodone/APAP 10/325 1 TAB TABLET PO PRN ×2 (08:39→20:23)
--- NOTE | 2018-09-28 09:08 | PDOC ---
PULMONARY PROGRESS NOTES Subjective sob better, on 02, has occ cough Vitals Vital Signs Date Time Temp Pulse Resp B/P (MAP) Pulse Ox O2 Delivery O2 Flow Rate FiO2 09/28/18 08:39 18 Nasal Cannula 3.0 09/28/18 08:35 66 94/52 09/28/18 07:47 100 09/28/18 07:00 97.7 97.7 ROS: No Chest Pain General: Alert, No acute distress HEENT: Other (nc at perrl) Lungs: Crackles (BASES) Cardiovascular: S1, S2 Abdomen: Soft, Non-tender, Other (distended) Neuro Exam: Alert, Oriented Extremities: No Edema, Other Skin: Warm Labs Laboratory Tests Test 09/26/18 11:05 09/26/18 16:34 09/26/18 21:36 09/27/18 00:42 Glucose (Fingerstick) 149 mg/dL (70-99) 219 mg/dL (70-99) 194 mg/dL (70-99) 173 mg/dL (70-99) Test 09/27/18 05:20 09/27/18 05:32 09/27/18 11:39 09/27/18 16:44 Sodium Level 137 mmol/L (136-145) Potassium Level 4.0 mmol/L (3.5-5.1) Chloride Level 99 mmol/L (98-107) Carbon Dioxide Level 34 mmol/L (21-32) Anion Gap 4 (6-14) Blood Urea Nitrogen 21 mg/dL (8-26) Creatinine 0.5 mg/dL (0.7-1.3) Estimated GFR (Cockcroft-Gault) 161.7 Glucose Level 152 mg/dL (70-99) Calcium Level 8.0 mg/dL (8.5-10.1) Phosphorus Level 3.3 mg/dL (2.6-4.7) Magnesium Level 2.1 mg/dL (1.8-2.4) Triglycerides Level 119 mg/dL (0-150) Glucose (Fingerstick) 136 mg/dL (70-99) 117 mg/dL (70-99) 243 mg/dL (70-99) Test 09/27/18 17:46 09/27/18 21:32 09/27/18 22:18 09/28/18 00:33 Glucose (Fingerstick) 191 mg/dL (70-99) 61 mg/dL (70-99) 109 mg/dL (70-99) 111 mg/dL (70-99) Test 09/28/18 05:00 09/28/18 05:36 09/28/18 08:22 White Blood Count 11.5 x10^3/uL (4.0-11.0) Red Blood Count 3.18 x10^6/uL (4.30-5.70) Hemoglobin 10.0 g/dL (13.0-17.5) Hematocrit 30.7 % (39.0-53.0) Mean Corpuscular Volume 97 fL (79-100) Mean Corpuscular Hemoglobin 32 pg (25-35) Mean Corpuscular Hemoglobin Concent 33 g/dL (31-37) Red Cell Distribution Width 14.4 % (11.5-14.5) Platelet Count 189 x10^3/uL (140-400) Sodium Level 135 mmol/L (136-145) Potassium Level 3.9 mmol/L (3.5-5.1) Chloride Level 100 mmol/L (98-107) Carbon Dioxide Level 30 mmol/L (21-32) Anion Gap 5 (6-14) Blood Urea Nitrogen 23 mg/dL (8-26) Creatinine 0.6 mg/dL (0.7-1.3) Estimated GFR (Cockcroft-Gault) 131.0 Glucose Level 180 mg/dL (70-99) Calcium Level 8.1 mg/dL (8.5-10.1) Glucose (Fingerstick) 165 mg/dL (70-99) 83 mg/dL (70-99) Laboratory Tests Test 09/27/18 11:39 09/27/18 16:44 09/27/18 17:46 09/27/18 21:32 Glucose (Fingerstick) 117 mg/dL (70-99) 243 mg/dL (70-99) 191 mg/dL (70-99) 61 mg/dL (70-99) Test 09/27/18 22:18 09/28/18 00:33 09/28/18 05:00 09/28/18 05:36 Glucose (Fingerstick) 109 mg/dL (70-99) 111 mg/dL (70-99) 165 mg/dL (70-99) White Blood Count 11.5 x10^3/uL (4.0-11.0) Red Blood Count 3.18 x10^6/uL (4.30-5.70) Hemoglobin 10.0 g/dL (13.0-17.5) Hematocrit 30.7 % (39.0-53.0) Mean Corpuscular Volume 97 fL (79-100) Mean Corpuscular Hemoglobin 32 pg (25-35) Mean Corpuscular Hemoglobin Concent 33 g/dL (31-37) Red Cell Distribution Width 14.4 % (11.5-14.5) Platelet Count 189 x10^3/uL (140-400) Sodium Level 135 mmol/L (136-145) Potassium Level 3.9 mmol/L (3.5-5.1) Chloride Level 100 mmol/L (98-107) Carbon Dioxide Level 30 mmol/L (21-32) Anion Gap 5 (6-14) Blood Urea Nitrogen 23 mg/dL (8-26) Creatinine 0.6 mg/dL (0.7-1.3) Estimated GFR (Cockcroft-Gault) 131.0 Glucose Level 180 mg/dL (70-99) Calcium Level 8.1 mg/dL (8.5-10.1) Test 09/28/18 08:22 Glucose (Fingerstick) 83 mg/dL (70-99) Medications Active Scripts Medications Dose Route/Sig Max Daily Dose Days Date Category Magnesium Chloride 70 Mg Tablet. 64 Mg PO DAILY 30 08/30/18 Rx Synthroid (Levothyroxine Sodium) 88 Mcg Tablet 88 Mcg PO DAILY06 30 08/30/18 Rx Prednisone 20 Mg Tablet 20 Mg PO DAILY 30 08/30/18 Rx Budesonide 0.5 Mg/2 Ml Ampul.neb 0.5 Mg NEB RTBID 30 08/30/18 Rx Diltiazem 24HR Cd (Diltiazem Hcl) 180 Mg Cap.er.24h 180 Mg PO DAILY 90 08/30/18 Rx Hydrocodone-Apap 7.5-325 (Hydrocodone Bit/Acetaminophen) 1 Tab Tablet 1 Tab PO PRN Q6HRS PRN 08/26/18 Reported Prednisolone Sodium Phosphate (Prednisolone Sod Phosphate) 15 Mg/5 Ml Solution 15 Mg PO DAILY 1/24/19 Reported Omeprazole 40 Mg Capsule. 40 Mg PO DAILY 08/26/18 Reported Cartia Xt (Diltiazem Hcl) 120 Mg Cap.er.24h 120 Mg PO DAILY 08/26/18 Reported Prednisone (Prednisone) 10 Mg Tablet 40 Mg PO DAILY 30 07/16/18 Rx Klor-Con 10 (Potassium Chloride) 10 Meq Tablet.er 1 Tab PO DAILY 07/16/18 Rx Lasix (Furosemide) 40 Mg Tablet 1 Tab PO DAILY 07/16/18 Rx Aspirin Ec (Aspirin) 81 Mg Tablet.dr 81 Mg PO DAILYWBKFT 30 07/16/18 Rx Duoneb 0.5-3(2.5) Mg/3 Ml (Albuterol/Ipratropium) 3 Ml Ampul.neb 3 Ml NEB RTQID 30 07/01/18 Rx Diltiazem 24HR Cd (Diltiazem Hcl) 120 Mg Cap.er.24h 120 Mg PO DAILY 30 07/01/18 Rx Wellbutrin Xl (Bupropion Hcl) 150 Mg Tab.er.24h 1 Tab PO DAILY 06/30/18 Reported Omeprazole 40 Mg Capsule. 1 Cap PO 10/25/[address] of abd 09/25 1. Bibasilar consolidation in the lungs may be secondary to atelectasis or pneumonia superimposed on interstitial lung disease. 2. Dilated jejunal loop may be secondary to ileus or obstruction. Findings not significant changed when compared to previous exam. 3. Stable segment 7 liver lesion, nonspecific but has been present since July 2017 and most likely a benign entity given interval stability. Impression . IMPRESSION: 1. Chronic hypoxic respiratory failure. 2. Pulmonary fibrosis.ON CHRONIC STEROIDS 3. Small-bowel obstruction. S/P SURGERY / likely post-op ileus 4. Bibasilar consolidation, atelectasis vs infilt will monitor PREOPERATIVE DIAGNOSIS: Small bowel obstruction. POSTOPERATIVE DIAGNOSIS: Small bowel obstruction, secondary to adhesive band. PROCEDURE: Diagnostic laparoscopy, followed by laparotomy with release of small-bowel obstruction and decompression of the small bowel. Plan . TPN for nutrition diet per surgery BD, nebulizer treatments incentive spirometry, elevate hob Lovenox, Protonix for prophylaxis cont solumedrol 20 mg daily, change to PO when he is able to eat increase activity discussed w pt, rn JON EDWARDS MD Sep 28, 2018 09:08
--- NOTE | 2018-09-28 09:52 | PDOC ---
REMBERTO WINSTON [employer]IE[employer]ER 09/28/18 0952: SURGICAL PROGRESS NOTE Subjective no complaints reports flatus did not get breakfast Vital Signs Vital Signs Date Time Temp Pulse Resp B/P (MAP) Pulse Ox O2 Delivery O2 Flow Rate FiO2 09/28/18 08:39 18 Nasal Cannula 3.0 09/28/18 08:35 66 94/52 09/28/18 07:47 100 09/28/18 07:00 97.7 97.7 I&O Intake and Output 09/28/18 06:59 Output Total 500 ml Balance -500 ml Output Urine Total 500 ml # Voids 5 General: Alert, Oriented X3, Cooperative, No acute distress Abdomen: Soft, Other (incision intact) Labs Laboratory Tests Test 09/26/18 11:05 09/26/18 16:34 09/26/18 21:36 09/27/18 00:42 Glucose (Fingerstick) 149 mg/dL (70-99) 219 mg/dL (70-99) 194 mg/dL (70-99) 173 mg/dL (70-99) Test 09/27/18 05:20 09/27/18 05:32 09/27/18 11:39 09/27/18 16:44 Sodium Level 137 mmol/L (136-145) Potassium Level 4.0 mmol/L (3.5-5.1) Chloride Level 99 mmol/L (98-107) Carbon Dioxide Level 34 mmol/L (21-32) Anion Gap 4 (6-14) Blood Urea Nitrogen 21 mg/dL (8-26) Creatinine 0.5 mg/dL (0.7-1.3) Estimated GFR (Cockcroft-Gault) 161.7 Glucose Level 152 mg/dL (70-99) Calcium Level 8.0 mg/dL (8.5-10.1) Phosphorus Level 3.3 mg/dL (2.6-4.7) Magnesium Level 2.1 mg/dL (1.8-2.4) Triglycerides Level 119 mg/dL (0-150) Glucose (Fingerstick) 136 mg/dL (70-99) 117 mg/dL (70-99) 243 mg/dL (70-99) Test 09/27/18 17:46 09/27/18 21:32 09/27/18 22:18 09/28/18 00:33 Glucose (Fingerstick) 191 mg/dL (70-99) 61 mg/dL (70-99) 109 mg/dL (70-99) 111 mg/dL (70-99) Test 09/28/18 05:00 09/28/18 05:36 09/28/18 08:22 White Blood Count 11.5 x10^3/uL (4.0-11.0) Red Blood Count 3.18 x10^6/uL (4.30-5.70) Hemoglobin 10.0 g/dL (13.0-17.5) Hematocrit 30.7 % (39.0-53.0) Mean Corpuscular Volume 97 fL (79-100) Mean Corpuscular Hemoglobin 32 pg (25-35) Mean Corpuscular Hemoglobin Concent 33 g/dL (31-37) Red Cell Distribution Width 14.4 % (11.5-14.5) Platelet Count 189 x10^3/uL (140-400) Sodium Level 135 mmol/L (136-145) Potassium Level 3.9 mmol/L (3.5-5.1) Chloride Level 100 mmol/L (98-107) Carbon Dioxide Level 30 mmol/L (21-32) Anion Gap 5 (6-14) Blood Urea Nitrogen 23 mg/dL (8-26) Creatinine 0.6 mg/dL (0.7-1.3) Estimated GFR (Cockcroft-Gault) 131.0 Glucose Level 180 mg/dL (70-99) Calcium Level 8.1 mg/dL (8.5-10.1) Glucose (Fingerstick) 165 mg/dL (70-99) 83 mg/dL (70-99) Laboratory Tests Test 09/27/18 11:39 09/27/18 16:44 09/27/18 17:46 09/27/18 21:32 Glucose (Fingerstick) 117 mg/dL (70-99) 243 mg/dL (70-99) 191 mg/dL (70-99) 61 mg/dL (70-99) Test 09/27/18 22:18 09/28/18 00:33 09/28/18 05:00 09/28/18 05:36 Glucose (Fingerstick) 109 mg/dL (70-99) 111 mg/dL (70-99) 165 mg/dL (70-99) White Blood Count 11.5 x10^3/uL (4.0-11.0) Red Blood Count 3.18 x10^6/uL (4.30-5.70) Hemoglobin 10.0 g/dL (13.0-17.5) Hematocrit 30.7 % (39.0-53.0) Mean Corpuscular Volume 97 fL (79-100) Mean Corpuscular Hemoglobin 32 pg (25-35) Mean Corpuscular Hemoglobin Concent 33 g/dL (31-37) Red Cell Distribution Width 14.4 % (11.5-14.5) Platelet Count 189 x10^3/uL (140-400) Sodium Level 135 mmol/L (136-145) Potassium Level 3.9 mmol/L (3.5-5.1) Chloride Level 100 mmol/L (98-107) Carbon Dioxide Level 30 mmol/L (21-32) Anion Gap 5 (6-14) Blood Urea Nitrogen 23 mg/dL (8-26) Creatinine 0.6 mg/dL (0.7-1.3) Estimated GFR (Cockcroft-Gault) 131.0 Glucose Level 180 mg/dL (70-99) Calcium Level 8.1 mg/dL (8.5-10.1) Test 09/28/18 08:22 Glucose (Fingerstick) 83 mg/dL (70-99) Problem List Problems Medical Problems: (1) Generalized weakness Status: Acute Assessment/Plan trial diet today SHAKEEL SOMMER MD 09/28/18 1343: SURGICAL PROGRESS NOTE Assessment/Plan pt seen tolerated full liquids at lunch REMBERTO WINSTON APRN Sep 28, 2018 09:52 SHAKEEL SOMMER MD Sep 28, 2018 13:43
[2018-09-28] MEDS: ENOXAPARIN 40 MG/0.4 ML SYRINGE. SQ SCH (10:52)
[2018-09-28 11:00] VITALS: BP 82/47
--- NOTE | 2018-09-28 13:20 | PDOC ---
PROGRESS NOTES Subjective Subjective Patient feeling slightly better. PO trial started Objective Objective Vital Signs Date Time Temp Pulse Resp B/P (MAP) Pulse Ox O2 Delivery O2 Flow Rate FiO2 09/28/18 11:51 18 Nasal Cannula 3.0 09/28/18 11:00 98.5 73 82/47 (59) 94 98.5 Intake and Output 09/28/18 07:00 Output Total 500 ml Balance -500 ml Output Urine Total 500 ml # Voids 5 Physical Exam Abdomen: Other (+ bs) Heart: Regular rate Extremities: No edema General: Alert Lungs: Clear to auscultation, Other (Course in bases) Assessment Assessment Problems Medical Problems: (1) Generalized weakness Status: Acute Recurrent ileus Small bowel obstruction status post open reduction S/P open lap lysis of adhesion and SBO take down POD #14 Severe Protein Malnutrition Debilitation PAST MEDICAL HISTORY: Significant for: 1. Pulmonary fibrosis. 2. COPD. 3. SVT. 4. Hypertension. 5. Osteoarthritis. 6. Gastroesophageal reflux disease, status post dilatation of stricture. 7. Hypothyroidism. 8. BPH. 9. [id number] diastolic congestive heart failure. 10. Severe protein malnutrition. 11. History of prostate cancer. 12. History of hepatitis C. 13. Major depression. Plan Plan of Care Continue TPN SNU when stable advance diet per surgery Comment Review of Relevant I have reviewed the following items sherine (where applicable) has been applied. Labs Laboratory Tests Test 09/26/18 16:34 09/26/18 21:36 09/27/18 00:42 09/27/18 05:20 Glucose (Fingerstick) 219 mg/dL (70-99) 194 mg/dL (70-99) 173 mg/dL (70-99) Sodium Level 137 mmol/L (136-145) Potassium Level 4.0 mmol/L (3.5-5.1) Chloride Level 99 mmol/L (98-107) Carbon Dioxide Level 34 mmol/L (21-32) Anion Gap 4 (6-14) Blood Urea Nitrogen 21 mg/dL (8-26) Creatinine 0.5 mg/dL (0.7-1.3) Estimated GFR (Cockcroft-Gault) 161.7 Glucose Level 152 mg/dL (70-99) Calcium Level 8.0 mg/dL (8.5-10.1) Phosphorus Level 3.3 mg/dL (2.6-4.7) Magnesium Level 2.1 mg/dL (1.8-2.4) Triglycerides Level 119 mg/dL (0-150) Test 09/27/18 05:32 09/27/18 11:39 09/27/18 16:44 09/27/18 17:46 Glucose (Fingerstick) 136 mg/dL (70-99) 117 mg/dL (70-99) 243 mg/dL (70-99) 191 mg/dL (70-99) Test 09/27/18 21:32 09/27/18 22:18 09/28/18 00:33 09/28/18 05:00 Glucose (Fingerstick) 61 mg/dL (70-99) 109 mg/dL (70-99) 111 mg/dL (70-99) White Blood Count 11.5 x10^3/uL (4.0-11.0) Red Blood Count 3.18 x10^6/uL (4.30-5.70) Hemoglobin 10.0 g/dL (13.0-17.5) Hematocrit 30.7 % (39.0-53.0) Mean Corpuscular Volume 97 fL (79-100) Mean Corpuscular Hemoglobin 32 pg (25-35) Mean Corpuscular Hemoglobin Concent 33 g/dL (31-37) Red Cell Distribution Width 14.4 % (11.5-14.5) Platelet Count 189 x10^3/uL (140-400) Sodium Level 135 mmol/L (136-145) Potassium Level 3.9 mmol/L (3.5-5.1) Chloride Level 100 mmol/L (98-107) Carbon Dioxide Level 30 mmol/L (21-32) Anion Gap 5 (6-14) Blood Urea Nitrogen 23 mg/dL (8-26) Creatinine 0.6 mg/dL (0.7-1.3) Estimated GFR (Cockcroft-Gault) 131.0 Glucose Level 180 mg/dL (70-99) Calcium Level 8.1 mg/dL (8.5-10.1) Test 09/28/18 05:36 09/28/18 08:22 09/28/18 11:09 09/28/18 12:55 Glucose (Fingerstick) 165 mg/dL (70-99) 83 mg/dL (70-99) 132 mg/dL (70-99) 227 mg/dL (70-99) Laboratory Tests Test 09/27/18 16:44 09/27/18 17:46 09/27/18 21:32 09/27/18 22:18 Glucose (Fingerstick) 243 mg/dL (70-99) 191 mg/dL (70-99) 61 mg/dL (70-99) 109 mg/dL (70-99) Test 09/28/18 00:33 09/28/18 05:00 09/28/18 05:36 09/28/18 08:22 Glucose (Fingerstick) 111 mg/dL (70-99) 165 mg/dL (70-99) 83 mg/dL (70-99) White Blood Count 11.5 x10^3/uL (4.0-11.0) Red Blood Count 3.18 x10^6/uL (4.30-5.70) Hemoglobin 10.0 g/dL (13.0-17.5) Hematocrit 30.7 % (39.0-53.0) Mean Corpuscular Volume 97 fL (79-100) Mean Corpuscular Hemoglobin 32 pg (25-35) Mean Corpuscular Hemoglobin Concent 33 g/dL (31-37) Red Cell Distribution Width 14.4 % (11.5-14.5) Platelet Count 189 x10^3/uL (140-400) Sodium Level 135 mmol/L (136-145) Potassium Level 3.9 mmol/L (3.5-5.1) Chloride Level 100 mmol/L (98-107) Carbon Dioxide Level 30 mmol/L (21-32) Anion Gap 5 (6-14) Blood Urea Nitrogen 23 mg/dL (8-26) Creatinine 0.6 mg/dL (0.7-1.3) Estimated GFR (Cockcroft-Gault) 131.0 Glucose Level 180 mg/dL (70-99) Calcium Level 8.1 mg/dL (8.5-10.1) Test 09/28/18 11:09 09/28/18 12:55 Glucose (Fingerstick) 132 mg/dL (70-99) 227 mg/dL (70-99) Medications Current Medications Famotidine (Pepcid Vial) 20 mg 1X ONCE IVP Last administered on 09/12/18 18: 07; Start 09/12/18 at 17:45; Stop 09/12/18 at 17:46; Status DC Ondansetron HCl (Zofran) 4 mg 1X ONCE IV Last administered on 09/12/18 18:07 ; Start 09/12/18 at 17:45; Stop 09/12/18 at 17:46; Status DC Iohexol (Omnipaque 300 Mg/ml) 75 ml 1X ONCE IV Last administered on 09/12/18at 18:35; Start 09/12/18 at 18:30; Stop 09/12/18 at 18:34; Status DC Info (CONTRAST GIVEN -- Rx MONITORING) 1 each PRN DAILY PRN MC SEE COMMENTS; Start 09/12/18 at 18:45; Stop 09/14/18 at 18:44; Status DC Fentanyl Citrate (Fentanyl 2ml Vial) 50 mcg 1X ONCE IV Last administered on 20:21; Start 09/12/18 at 20:00; Stop 09/12/18 at 20:01; Status DC Ondansetron HCl (Zofran) 4 mg PRN Q8HRS PRN IV NAUSEA/VOMITING; Start 09/12/18 at 20:30; Stop 09/13/18 at 20:29; Status DC Morphine Sulfate (Morphine Sulfate) 4 mg PRN Q2HR PRN IV PAIN Last administered on 09/13/18at 10:20; Start 09/12/18 at 20:30; Stop 09/13/18 at 20:29 ; Status DC Metronidazole 100 ml @ 100 mls/hr Q8HRS IV Last administered on 09/20/18at 06: 30; Start 09/12/18 at 22:00; Stop 09/20/18 at 10:42; Status DC Ciprofloxacin/ Dextrose 200 ml @ 200 mls/hr 1X ONCE IV Last administered on at 22:51; Start 09/12/18 at 20:30; Stop 09/12/18 at 21:29; Status DC Sodium Chloride 1,000 ml @ 75 mls/hr 1X ONCE IV Last administered on at 22:51; Start 09/12/18 at 20:30; Stop 09/13/18 at 09:49; Status DC Budesonide (Pulmicort) 0.5 mg RTBID NEB Last administered on 09/28/18at 07:48; Start 09/13/18 at 09:30 Albuterol/ Ipratropium (Duoneb) 3 ml RTQID NEB Last administered on 09/28/18at 11:38; Start 09/13/18 at 09:30 Methylprednisolone Sodium Succinate (SOLU-Medrol 40MG VIAL) 20 mg DAILY IV Last administered on 09/13/18at 10:21; Start 09/13/18 at 10:00; Stop 09/14/18 at 12:55; Status DC Pantoprazole Sodium (PROTONIX VIAL for IV PUSH) 40 mg DAILYAC IVP Last administered on 09/21/18 06:34; Start 09/13/18 at 10:00; Stop 09/21/18 at 09:13 ; Status DC Enoxaparin Sodium (Lovenox 40mg Syringe) 40 mg Q24H SQ Last administered on at 10:52; Start 09/13/18 at 10:00 Metoprolol Tartrate (Lopressor Vial) 5 mg Q6HRS IVP Last administered on 06:41; Start 09/13/18 at 14:00; Stop 09/19/18 at 11:39; Status DC Potassium Chloride/Water 100 ml @ 100 mls/hr Q1H IV Last administered on 17:10; Start 09/13/18 at 14:00; Stop 09/13/18 at 17:59; Status DC Throat Lozenges (Chloraseptic) 1 spray PRN Q2HR PRN PO SORE THROAT, 2nd choice Last administered on 09/14/18 13:47; Start 09/13/18 at 16:45 Throat Lozenges (Cepacol Sore Throat Lozenge) 1 deniz PRN Q2HRS PRN PO SORE THROAT, 1st choice Last administered on 09/14/18 13:46; Start 09/13/18 at 16:45 Aspirin (Aspirin) 300 mg DAILY VA Last administered on 09/17/18 11:25; Start 09/14/18 at 09:00; Stop 09/18/18 at 13:30; Status DC Morphine Sulfate (Morphine Sulfate) 4 mg PRN Q2HR PRN IV MODERATE PAIN, SEVERE PAIN Last administered on 09/18/18at 21:59; Start 09/13/18 at 21:15; Stop at 09:10; Status DC Barium Sulfate (E-Z-Hd) 680 gm 1X ONCE PO ; Start 09/14/18 at 08:00; Stop 09/14 at 08:01; Status DC Iohexol (Omnipaque 300 Mg/ml) 400 ml 1X ONCE PO Last administered on at 08:00; Start 09/14/18 at 08:00; Stop 09/14/18 at 08:01; Status DC Info (CONTRAST GIVEN -- Rx MONITORING) 1 each PRN DAILY PRN MC SEE COMMENTS; Start 09/14/18 at 08:00; Stop 09/16/18 at 07:59; Status DC Potassium Chloride/Water 100 ml @ 100 mls/hr Q1H IV ; Start 09/14/18 at 09:00; Stop 09/14/18 at 12:59; Status DC Methylprednisolone Sodium Succinate (SOLU-Medrol 125MG VIAL) 125 mg DAILY IV Last administered on 09/20/18at 09:01; Start 09/15/18 at 09:00; Stop 09/20/18 at 13:23; Status DC Info (Tpn Per Pharmacy) 1 each PRN DAILY PRN MC SEE COMMENTS Last administered on 09/14/18at 13:51; Start 09/14/18 at 13:30; Stop 09/14/18 at 14:27; Status DC Info (Tpn Per Pharmacy) 1 each PRN DAILY PRN MC SEE COMMENTS Last administered on 09/18/18at 09:54; Start 09/15/18 at 14:30; Stop 09/19/18 at 11:39; Status DC Amino Acids/ Glycerin/ Electrolytes 1,000 ml @ 80 mls/hr [id number] IV Last administered on 09/15/18at 03:32; Start 09/14/18 at 14:30; Stop 09/15/18 at 21:59 ; Status DC Cefazolin Sodium/ Dextrose 50 ml @ 100 mls/hr 1X PREOP PRN IV protocol Last administered on 09/14/18at 17:40; Start 09/15/18 at 06:00; Stop 09/15/18 at 18:00 ; Status DC Metronidazole 100 ml @ 100 mls/hr 1X PREOP PRN IV protocol; Start 09/15/18 at 06:00; Stop 09/15/18 at 18:00; Status DC Ondansetron HCl (Zofran) 4 mg PRN Q6HRS PRN IV NAUSEA/VOMITING; Start 09/14/18 at 16:00; Stop 09/15/18 at 01:45; Status DC Fentanyl Citrate (Fentanyl 2ml Vial) 25 mcg PRN Q5MIN PRN IV MILD PAIN; Start 09/14/18 at 16:00; Stop 09/15/18 at 01:40; Status DC Fentanyl Citrate (Fentanyl 2ml Vial) 50 mcg PRN Q5MIN PRN IV MODERATE TO SEVERE PAIN Last administered on 09/14/18at 20:27; Start 09/14/18 at 16:00; Stop 09/15/18 at 01:40; Status DC Morphine Sulfate (Morphine Sulfate) 1 mg PRN Q10MIN PRN IV SEVERE PAIN Last administered on 09/14/18at 21:51; Start 09/14/18 at 16:00; Stop 09/15/18 at 01:40 ; Status DC Ringer's Solution 1,000 ml @ 30 mls/hr Q24H IV Last administered on 09/14/18at 21:30; Start 09/14/18 at 15:52; Stop 09/15/18 at 01:40; Status DC Lidocaine HCl (Xylocaine-Mpf 1% 2ml Vial) 2 ml 1X PRN PRN ID IV START; Start at 16:00; Stop 09/15/18 at 15:59; Status DC Hydromorphone HCl (Dilaudid) 0.5 mg PRN Q10MIN PRN IV SEV PAIN, Second choice; Start 09/14/18 at 16:00; Stop 09/15/18 at 01:45; Status DC Prochlorperazine Edisylate (Compazine) 5 mg PACU PRN PRN IV NAUSEA, MRX1 Last administered on 09/14/18at 21:02; Start 09/14/18 at 16:00; Stop 09/15/18 at 01:40 ; Status DC Cefazolin Sodium/ Dextrose 50 ml @ As Directed STK-MED ONCE IV ; Start 09/14/18 at 16:08; Stop 09/14/18 at 16:09; Status DC Propofol 20 ml @ As Directed STK-MED ONCE IV ; Start 09/14/18 at 16:32; Stop 07/21 at 16:33; Status DC Dexamethasone Sodium Phosphate (Decadron) 20 mg STK-MED ONCE .ROUTE ; Start 07/21 at 16:32; Stop 09/14/18 at 16:33; Status DC Lidocaine HCl (Lidocaine Pf 2% Vial) 5 ml STK-MED ONCE .ROUTE ; Start 09/14/18 at 16:32; Stop 09/14/18 at 16:33; Status DC Ondansetron HCl (Zofran) 4 mg STK-MED ONCE .ROUTE ; Start 09/14/18 at 16:32; Stop 09/14/18 at 16:33; Status DC Succinylcholine Chloride (Anectine) 200 mg STK-MED ONCE .ROUTE ; Start 09/14/18 at 16:32; Stop 09/14/18 at 16:33; Status DC Rocuronium [place] (Zemuron) 50 mg STK-MED ONCE .ROUTE ; Start 09/14/18 at 16:32 ; Stop 09/14/18 at 16:33; Status DC Fentanyl Citrate (Fentanyl 2ml Vial) 100 mcg STK-MED ONCE .ROUTE ; Start at 16:32; Stop 09/14/18 at 16:33; Status DC Bupivacaine HCl/ Epinephrine Bitart (Sensorcain-Mpf Epi 0.5%-1:[id number]) 30 ml STK -MED ONCE .ROUTE Last administered on 09/14/18at 17:57; Start 09/14/18 at 17:18 ; Stop 09/14/18 at 17:19; Status DC Cefazolin Sodium/ Dextrose 50 ml @ As Directed STK-MED ONCE IV ; Start 09/14/18 at 17:28; Stop 09/14/18 at 17:29; Status DC Lidocaine HCl (Glydo (Lidocaine) Jelly) 6 marcel STK-MED ONCE .ROUTE ; Start at 17:43; Stop 09/14/18 at 17:44; Status DC Hydrocortisone Sodium Succinate (Solu-CORTEF) 100 mg STK-MED ONCE .ROUTE ; Start 09/14/18 at 18:08; Stop 09/14/18 at 18:09; Status DC Phenylephrine HCl (Shaw-Synephrine Inj) 10 mg STK-MED ONCE .ROUTE ; Start at 18:11; Stop 09/14/18 at 18:12; Status DC Glycopyrrolate (Robinul) 1 mg STK-MED ONCE .ROUTE ; Start 09/14/18 at 19:05; Stop 09/14/18 at 19:06; Status DC Sevoflurane (Ultane) 60 ml STK-MED ONCE IH ; Start 09/14/18 at 19:23; Stop 09/14 at 19:24; Status DC Enoxaparin Sodium (Lovenox 40mg Syringe) 30 mg Q24H SQ ; Start 09/14/18 at 19:45 ; Status UNV Sodium Chloride (Normal Saline Flush) 3 ml QSHIFT PRN IV AFTER MEDS AND BLOOD DRAWS; Start 09/14/18 at 19:45 Hydromorphone HCl 30 ml @ 0 mls/hr CONT PRN PRN IV PER PROTOCOL Last administered on 09/14/18at 20:25; Start 09/14/18 at 19:45; Stop 09/15/18 at 08:34 ; Status DC Ondansetron HCl (Zofran) 4 mg PRN Q6HRS PRN IV NAUESA, 1ST CHOICE Last administered on 09/22/18at 08:47; Start 09/14/18 at 19:45 Ringer's Solution 1,000 ml @ 75 mls/hr [id number] IV Last administered on at 21:00; Start 09/14/18 at 21:00; Stop 09/15/18 at 01:45; Status DC Lorazepam (Ativan) 0.5 mg PRN Q6HRS PRN IV ANXIETY / AGITATION; Start 09/14/18 at 22:15 Albumin Human 250 ml @ 83.3 mls/hr 1X ONCE IV Last administered on 09/15/18at 01:15; Start 09/15/18 at 01:00; Stop 09/15/18 at 04:00; Status DC Hydromorphone HCl (Dilaudid) 0.5 mg PRN Q3HRS PRN IV MILD PAIN Last administered on 09/28/18at 11:51; Start 09/15/18 at 08:30 Albumin Human 500 ml @ 125 mls/hr 1X ONCE IV Last administered on 09/15/18at 10:23; Start 09/15/18 at 09:00; Stop 09/15/18 at 12:59; Status DC Sodium Chloride 250 ml @ 500 mls/hr 1X ONCE IV Last administered on at 11:00; Start 09/15/18 at 11:00; Stop 09/15/18 at 11:29; Status DC Sodium Chloride 1,000 ml @ 100 mls/hr Q10H IV Last administered on 09/15/18at 11:30; Start 09/15/18 at 11:30; Stop 09/15/18 at 22:00; Status DC Sodium Chloride 1,000 ml @ 75 mls/hr [id number] IV Last administered on at 00:12; Start 09/15/18 at 22:00; Stop 09/17/18 at 12:12; Status DC Sodium Acetate 90 meq/Potassium Chloride 50 meq/ Potassium Phosphate 3.4 mmol/ Magnesium Sulfate 10 meq/ Calcium Gluconate 10 meq/ Multivitamins 10 ml/Chromium / Copper/Manganese/ Seleni/Zn 1 ml/ Total Parenteral Nutrition/Amino Acids/ Dextrose/ Fat Emulsion Intravenous 1,512 ml @ 63 mls/hr TPN CONT IV Last administered on 09/15/18at 21:43; Start 09/15/18 at 22:00; Stop 09/16/18 at 21:59 ; Status DC Lidocaine/Sodium Bicarbonate (Buffered Lidocaine 1%) 3 ml STK-MED ONCE .ROUTE ; Start 09/15/18 at 14:35; Stop 09/15/18 at 14:36; Status DC Heparin Sodium/ Sodium Chloride 500 ml @ As Directed STK-MED ONCE .ROUTE ; Start 09/15/18 at 14:35; Stop 09/15/18 at 14:36; Status DC Heparin Sodium/ Sodium Chloride 500 ml @ As Directed STK-MED ONCE .ROUTE ; Start 09/15/18 at 14:36; Stop 09/15/18 at 14:37; Status DC Heparin Sodium/ Sodium Chloride (HEPARIN for ARTERIAL LINE FLUSH) 1,000 unit 1X ONCE IART Last administered on 09/15/18at 15:15; Start 09/15/18 at 15:15; Stop 09/15/18 at 15:16; Status DC Lidocaine/Sodium Bicarbonate (Buffered Lidocaine 1%) 3 ml 1X ONCE IJ Last administered on 09/15/18at 15:15; Start 09/15/18 at 15:15; Stop 09/15/18 at 15:16 ; Status DC Potassium Phosphate 13.6 mmol/Dextrose 104.5333 ml @ 52.267 m... 1X ONCE IV Last administered on 09/16/18at 09:53; Start 09/16/18 at 10:00; Stop 09/16/18 at 11:59; Status DC Sodium Acetate 90 meq/Potassium Chloride 50 meq/ Potassium Phosphate 15 mmol/ Magnesium Sulfate 10 meq/Calcium Gluconate 10 meq/ Multivitamins 10 ml/Chromium / Copper/Manganese/ Seleni/Zn 1 ml/ Total Parenteral Nutrition/Amino Acids/ Dextrose/ Fat Emulsion Intravenous 1,512 ml @ 63 mls/hr TPN CONT IV Last administered on 09/16/18at 21:49; Start 09/16/18 at 22:00; Stop 09/17/18 at 21:59 ; Status DC Albuterol/ Ipratropium (Duoneb) 3 ml RTQID NEB ; Start 09/16/18 at 12:00; Stop 09/16/18 at 12:00; Status DC Sodium Chloride 1,000 ml @ 75 mls/hr [id number] IV Last administered on at 06:20; Start 09/17/18 at 13:00; Stop 09/19/18 at 11:39; Status DC Potassium Phosphate 13.6 mmol/Dextrose 104.5333 ml @ 52.267 m... ONCE ONCE IV Last administered on 09/17/18at 14:14; Start 09/17/18 at 13:00; Stop 09/17/18 at 14:59; Status DC Sodium Acetate 90 meq/Potassium Acetate 40 meq/ Potassium Phosphate 20.4 mmol/ Magnesium Sulfate 10 meq/ Calcium Gluconate 10 meq/ Multivitamins 10 ml/Chromium / Copper/Manganese/ Seleni/Zn 1 ml/ Total Parenteral Nutrition/Amino Acids/ Dextrose/ Fat Emulsion Intravenous 1,512 ml @ 63 mls/hr TPN CONT IV Last administered on 09/17/18at 23:14; Start 09/17/18 at 22:00; Stop 09/18/18 at 21:59 ; Status DC Sodium Acetate 90 meq/Potassium Acetate 40 meq/ Potassium Phosphate 20.4 mmol/ Magnesium Sulfate 10 meq/ Calcium Gluconate 10 meq/ Multivitamins 10 ml/Chromium / Copper/Manganese/ Seleni/Zn 1 ml/ Total Parenteral Nutrition/Amino Acids/ Dextrose/ Fat Emulsion Intravenous 1,512 ml @ 63 mls/hr TPN CONT IV Last administered on 09/18/18 21:51; Start 09/18/18 at 22:00; Stop 09/19/18 at 11:39 ; Status DC Aspirin (Ecotrin) 325 mg [id number] PO Last administered on 09/28/18 08:36; Start 09/18/18 at 13:30 Acetaminophen/ Hydrocodone Bitart (Lortab 10/325) 1 tab PRN Q6HRS PRN PO PAIN Last administered on 09/28/18 08:39; Start 09/19/18 at 10:15 Levothyroxine Sodium (Synthroid) 88 mcg DAILY06 PO Last administered on 05:45; Start 09/19/18 at 15:30 Diltiazem HCl (Cardizem 24hr Cd) 120 mg DAILY PO Last administered on 09:31; Start 09/19/18 at 12:00 Info (Tpn Per Pharmacy) 1 each PRN DAILY PRN MC SEE COMMENTS Last administered on 09/27/18 14:14; Start 09/20/18 at 11:30 Sodium Acetate 90 meq/Potassium Acetate 40 meq/ Potassium Phosphate 20.4 mmol/ Magnesium Sulfate 10 meq/ Calcium Gluconate 10 meq/ Multivitamins 10 ml/Chromium / Copper/Manganese/ Seleni/Zn 1 ml/ Total Parenteral Nutrition/Amino Acids/ Dextrose/ Fat Emulsion Intravenous 1,512 ml @ 63 mls/hr TPN CONT IV Last administered on 09/20/18 21:23; Start 09/20/18 at 22:00; Stop 09/21/18 at 21:59 ; Status DC Methylprednisolone Sodium Succinate (SOLU-Medrol 125MG VIAL) 60 mg DAILY IV ; Start 09/21/18 at 09:00; Stop 09/21/18 at 09:10; Status DC Insulin Human Lispro (HumaLOG) 0-5 UNITS TIDWMEALS SQ ; Start 09/21/18 at 08:00 ; Stop 09/21/18 at 09:08; Status DC Dextrose (Dextrose 50%-Water Syringe) 12.5 gm PRN Q15MIN PRN IV SEE COMMENTS Last administered on 09/27/18 21:40; Start 09/21/18 at 00:00 Insulin Human Lispro (HumaLOG) 0-12 UNITS QIDACHS SQ Last administered on 16:49; Start 09/21/18 at 11:30 Prednisone (Prednisone) 40 mg DAILY PO Last administered on 09/22/18 08:44; Start 09/21/18 at 10:00; Stop 09/24/18 at 09:22; Status DC Pantoprazole Sodium (Protonix) 40 mg DAILYAC PO Last administered on 09/22/18 07:01; Start 09/22/18 at 07:30; Stop 09/24/18 at 09:21; Status DC Sodium Acetate 90 meq/Potassium Acetate 40 meq/ Potassium Phosphate 20.4 mmol/ Magnesium Sulfate 10 meq/ Calcium Gluconate 10 meq/ Multivitamins 10 ml/Chromium / Copper/Manganese/ Seleni/Zn 1 ml/ Total Parenteral Nutrition/Amino Acids/ Dextrose/ Fat Emulsion Intravenous 1,512 ml @ 63 mls/hr TPN CONT IV Last administered on 09/21/18at 21:07; Start 09/21/18 at 22:00; Stop 09/22/18 at 21:59 ; Status DC Sertraline HCl (Zoloft) 25 mg QHS PO Last administered on 09/27/18at 21:20; Start 09/21/18 at 21:00 Sodium Acetate 90 meq/Potassium Acetate 40 meq/ Potassium Phosphate 20.4 mmol/ Magnesium Sulfate 10 meq/ Calcium Gluconate 10 meq/ Multivitamins 10 ml/Chromium / Copper/Manganese/ Seleni/Zn 1 ml/ Total Parenteral Nutrition/Amino Acids/ Dextrose/ Fat Emulsion Intravenous 1,512 ml @ 63 mls/hr TPN CONT IV Last administered on 09/22/18at 21:11; Start 09/22/18 at 22:00; Stop 09/23/18 at 21:59 ; Status DC Sodium Acetate 90 meq/Potassium Acetate 40 meq/ Potassium Phosphate 20.4 mmol/ Magnesium Sulfate 10 meq/ Calcium Gluconate 10 meq/ Multivitamins 10 ml/Chromium / Copper/Manganese/ Seleni/Zn 1 ml/ Insulin Human Regular 10 unit/ Total Parenteral Nutrition/Amino Acids/Dextrose/ Fat Emuls... 1,512 ml @ 63 mls/hr TPN CONT IV Last administered on 09/23/18at 21:22; Start 09/23/18 at 22:00; Stop 09/24/18 at 21:59; Status DC Insulin Human Lispro (HumaLOG) 5 units Q6HRS SQ Last administered on 09/28/18at 12:59; Start 09/23/18 at 18:00 Pantoprazole Sodium (PROTONIX VIAL for IV PUSH) 40 mg 1X ONCE IVP Last administered on 09/23/18at 13:03; Start 09/23/18 at 12:30; Stop 09/23/18 at 12:31 ; Status DC Methylprednisolone Sodium Succinate (SOLU-Medrol 40MG VIAL) 40 mg 1X ONCE IV Last administered on 09/23/18at 13:03; Start 09/23/18 at 12:30; Stop 09/23/18 at 12:31; Status DC Pantoprazole Sodium (PROTONIX VIAL for IV PUSH) 40 mg 1X ONCE IVP Last administered on 09/24/18at 09:07; Start 09/24/18 at 08:00; Stop 09/24/18 at 08:02 ; Status DC Methylprednisolone Sodium Succinate (SOLU-Medrol 40MG VIAL) 40 mg DAILY IV Last administered on 09/25/18at 08:01; Start 09/24/18 at 10:00; Stop 09/25/18 at 10:07; Status DC Pantoprazole Sodium (PROTONIX VIAL for IV PUSH) 40 mg DAILYAC IVP Last administered on 09/27/18at 07:58; Start 09/24/18 at 10:00; Stop 09/27/18 at 15:37 ; Status DC Sodium Acetate 90 meq/Potassium Chloride 20 meq/ Potassium Phosphate 20.4 mmol/ Magnesium Sulfate 10 meq/ Calcium Gluconate 10 meq/ Multivitamins 10 ml/Chromium / Copper/Manganese/ Seleni/Zn 1 ml/ Insulin Human Regular 10 unit/ Total Parenteral Nutrition/Amino Acids/Dextrose/ Fat Emuls... 1,512 ml @ 63 mls/hr TPN CONT IV Last administered on 09/24/18at 21:32; Start 09/24/18 at 22:00; Stop 09/25/18 at 21:59; Status DC Iohexol (Omnipaque 300 Mg/ml) 75 ml 1X ONCE IV Last administered on 09/24/18at 20:50; Start 09/24/18 at 19:00; Stop 09/24/18 at 19:01; Status DC Info (CONTRAST GIVEN -- Rx MONITORING) 1 each PRN DAILY PRN MC SEE COMMENTS; Start 09/24/18 at 19:15; Stop 09/26/18 at 19:14; Status DC Iohexol (Omnipaque 240 Mg/ml) 30 ml 1X ONCE PO Last administered on 09/25/18at 09:00; Start 09/25/18 at 09:00; Stop 09/25/18 at 09:01; Status DC Iohexol (Omnipaque 300 Mg/ml) 75 ml 1X ONCE IV Last administered on 09/25/18at 09:00; Start 09/25/18 at 09:00; Stop 09/25/18 at 09:01; Status DC Info (CONTRAST GIVEN -- Rx MONITORING) 1 each PRN DAILY PRN MC SEE COMMENTS; Start 09/25/18 at 09:00; Stop 09/27/18 at 08:59; Status DC Methylprednisolone Sodium Succinate (SOLU-Medrol 40MG VIAL) 20 mg DAILY IV Last administered on 09/28/18at 08:36; Start 09/26/18 at 09:00 Sodium Acetate 90 meq/Potassium Chloride 20 meq/ Potassium Phosphate 20.4 mmol/ Magnesium Sulfate 10 meq/ Calcium Gluconate 10 meq/ Multivitamins 10 ml/Chromium / Copper/Manganese/ Seleni/Zn 1 ml/ Insulin Human Regular 10 unit/ Total Parenteral Nutrition/Amino Acids/Dextrose/ Fat Emuls... 1,512 ml @ 63 mls/hr TPN CONT IV Last administered on 09/25/18at 21:45; Start 09/25/18 at 22:00; Stop 09/26/18 at 21:59; Status DC Sodium Chloride 60 meq/Sodium Acetate 30 meq/ Potassium Chloride 20 meq/ Potassium Phosphate 20.4 mmol/Magnesium Sulfate 10 meq/ Calcium Gluconate 10 meq / Multivitamins 10 ml/Chromium/ Copper/Manganese/ Seleni/Zn 1 ml/ Insulin Human Regular 10 unit/ Total Parenteral Nutrition/Am... 1,512 ml @ 63 mls/hr TPN CONT IV Last administered on 09/26/18at 21:52; Start 09/26/18 at 22:00; Stop at 21:59; Status DC Sodium Chloride 60 meq/Sodium Acetate 30 meq/ Potassium Chloride 20 meq/ Potassium Phosphate 20.4 mmol/Magnesium Sulfate 10 meq/ Calcium Gluconate 10 meq / Multivitamins 10 ml/Chromium/ Copper/Manganese/ Seleni/Zn 1 ml/ Insulin Human Regular 10 unit/ Total Parenteral Nutrition/Am... 1,512 ml @ 63 mls/hr TPN CONT IV Last administered on 09/27/18at 21:27; Start 09/27/18 at 22:00; Stop at 21:59 Pantoprazole Sodium (Protonix) 40 mg DAILYAC PO Last administered on 09/28/18at 08:36; Start 09/28/18 at 07:30 Active Scripts Active Magnesium Chloride 70 Mg Tablet. 64 Mg PO DAILY 30 Days Synthroid (Levothyroxine Sodium) 88 Mcg Tablet 88 Mcg PO DAILY06 30 Days Prednisone 20 Mg Tablet 20 Mg PO DAILY 30 Days Budesonide 0.5 Mg/2 Ml Ampul.neb 0.5 Mg NEB RTBID 30 Days Diltiazem 24HR Cd (Diltiazem Hcl) 180 Mg Cap.er.24h 180 Mg PO DAILY 90 Days Prednisone (Prednisone) 10 Mg Tablet 40 Mg PO DAILY 30 Days Klor-Con 10 (Potassium Chloride) 10 Meq Tablet.er 1 Tab PO DAILY Lasix (Furosemide) 40 Mg Tablet 1 Tab PO DAILY Aspirin Ec (Aspirin) 81 Mg Tablet. 81 Mg PO DAILYWBKFT 30 Days Duoneb 0.5-3(2.5) Mg/3 Ml (Albuterol/Ipratropium) 3 Ml Ampul.neb 3 Ml NEB RTQID 30 Days Diltiazem 24HR Cd (Diltiazem Hcl) 120 Mg Cap.er.24h 120 Mg PO DAILY 30 Days Reported Hydrocodone-Apap 7.5-325 (Hydrocodone Bit/Acetaminophen) 1 Tab Tablet 1 Tab PO PRN Q6HRS PRN Prednisolone Sodium Phosphate (Prednisolone Sod Phosphate) 15 Mg/5 Ml Solution 15 Mg PO DAILY Omeprazole 40 Mg Capsule. 40 Mg PO DAILY Cartia Xt (Diltiazem Hcl) 120 Mg Cap.er.24h 120 Mg PO DAILY Wellbutrin Xl (Bupropion Hcl) 150 Mg Tab.er.24h 1 Tab PO DAILY Omeprazole 40 Mg Capsule.dr Maciel Cap PO Vitals/I & O Vital Sign - Last 24 Hours 09/27/18 09/27/18 09/27/18 09/27/18 15:00 15:10 16:16 19:00 Temp 98.0 97.7 98.0 97.7 Pulse 80 78 Resp 18 18 18 B/P (MAP) 105/67 (80) 126/69 (88) Pulse Ox 92 98 O2 Delivery Nasal Cannula Nasal Cannula Nasal Cannula Nasal Cannula O2 Flow Rate 2.0 3.0 3.0 2.0 09/27/18 09/27/18 09/27/18 09/27/18 19:49 19:49 20:00 21:31 Resp 20 Pulse Ox 99 99 99 O2 Delivery Nasal Cannula Nasal Cannula Nasal Cannula Nasal Cannula O2 Flow Rate 3.0 3.0 3.0 3.0 09/27/18 09/27/18 09/28/18 09/28/18 22:01 23:00 02:55 05:45 Temp 98.9 98.6 98.9 98.6 Pulse 70 74 Resp 18 18 20 B/P (MAP) 98/62 (74) 102/66 (78) Pulse Ox 93 92 93 93 O2 Delivery Nasal Cannula Nasal Cannula Nasal Cannula Nasal Cannula O2 Flow Rate 2.0 2.0 2.0 09/28/18 09/28/18 09/28/18 09/28/18 07:00 07:25 07:47 08:35 Temp 97.7 97.7 Pulse 66 66 Resp 16 18 B/P (MAP) 94/52 (66) 94/52 Pulse Ox 99 100 O2 Delivery Nasal Cannula Nasal Cannula O2 Flow Rate 2.0 3.0 3.0 09/28/18 09/28/18 09/28/18 09/28/18 08:39 10:51 11:00 11:38 Temp 98.5 98.5 Pulse 73 Resp 18 18 16 B/P (MAP) 82/47 (59) Pulse Ox 94 O2 Delivery Nasal Cannula Nasal Cannula Nasal Cannula Nasal Cannula O2 Flow Rate 3.0 3.0 2.0 3.0 09/28/18 11:51 Resp 18 O2 Delivery Nasal Cannula O2 Flow Rate 3.0 Intake and Output 09/27/18 09/27/18 09/28/18 15:00 23:00 07:00 Output Total 500 ml Balance -500 ml Nutrition Consultation Dietary Evaluation: Recommendations by RD: PPN/TPN Comments: REC continue TPN per followin grams dextrose, 65 grams AA, 20 grams lipid advance diet when able Expected Outcomes/Goals: TPN for nutrition needs s/p abdominal surgery until po intake tolerated w/ solid foods Interpretation of weight loss: >5% in 1 month Malnutrition Findings: Food and Nutrition Intake (Sev: <50% est energy req 5days Weight Status: Underweight LOURDES POLLOCK MD Sep 28, 2018 13:20
[2018-09-28] MEDS: TPN PER PHARMACY MC PRN (13:23)
--- NOTE | 2018-09-28 13:32 | NUR ---
Pharmacy TPN Dosing Note S: JOHN ROBBINS is a 78 year old M Currently receiving Central Continuous TPN started 09/15/18 B:Pertinent PMH: SBO Height: 5 feet, 10 inches Weight: 60.780488 kg Current diet: NPO LABS: Sodium: 135 Potassium: 3.9 Chloride: 100 Calcium: 8.1 Corrected Calcium: 9.54 Magnesium: 2.1 CO2: 30 SCr: 0.6 Glucose: 180 Albumin: 2.2 AST: 27 ALT: 38 TPN FORMULA: TPN TYPE: Central Continuous AMINO ACIDS: 65 gm DEXTROSE: 225 gm LIPIDS: 20 gm SODIUM CHLORIDE: 80 mEq SODIUM ACETATE: 30 mEq SODIUM PHOSPHATE: mmol POTASSIUM CHLORIDE: 20 mEq POTASSIUM ACETATE: - mEq POTASSIUM PHOSPHATE: 20.4 mmol MAGNESIUM: 10 mEq CALCIUM: 10 mEq INSULIN: units MULTIPLE VITAMIN: 10 ml TRACE ELEMENTS: 1 ml(s) TPN PLAN: increase nacl to 80 meq R: Continue TPN AT 63ML/HR Will monitor electrolytes, glucose, and tolerance to TPN. JAKE MORALES [facility], 09/28/18 [id number]
[2018-09-28 15:00] VITALS: BP 115/71
--- NOTE | 2018-09-28 15:30 | RAD ---
EXAM: Abdomen, single view. HISTORY: Small bowel obstruction. COMPARISON: CT dated 09/25/2018. FINDINGS: A frontal supine view the abdomen is obtained. There are distended air-filled loops of small bowel throughout the abdomen. This is similar in caliber compared to the prior radiograph dated 09/22/2018. There has been no significant progression of contrast from the colon compared to the prior study. 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 IMPRESSION: 1. No significant change in distended air-filled small bowel throughout the abdomen. The differential includes partial distal obstruction and ileus. 2. No significant transit of contrast from the colon. Electronically signed by: Dianna Moreno MD (09/28/2018 3:27 PM) DAVIES CAMPUSH2
[2018-09-28 19:00] VITALS: BP 104/67
[2018-09-28] MEDS: SERTRALINE 25 MG TABLET. PO SCH (20:23)
[2018-09-28] MEDS: DOCUSATE SODIUM 100 MG CAPSULE. PO SCH (20:23)
[2018-09-28] MEDS ORDERED: AMINO ACID IV SCH ×12 (22:00)
[2018-09-28] MEDS ORDERED: [UNRECOGNIZED DRUG - OTHER] IV SCH ×12 (22:00)
[2018-09-28] MEDS ORDERED: TOTAL PARENTERAL NUTRITION IV SCH ×12 (22:00)
[2018-09-28] MEDS ORDERED: DEXTROSE 70% IV SCH ×12 (22:00)
[2018-09-28 22:46] VITALS: BP 105/63
[2018-09-28] MEDS: ONDANSETRON PF 4 MG/2 ML VIAL. IV PRN (23:45)
[2018-09-29 03:00] VITALS: BP 101/65
[2018-09-29] MEDS: LEVOTHYROXINE 88 MCG TABLET PO SCH (06:03)
[2018-09-29] MEDS: PANTOPRAZOLE 40 MG TABLET.DR. PO SCH (06:03)
[2018-09-29] MEDS: BUDESONIDE 0.5 MG/2 ML NEBU. NEB SCH ×2 (06:45→20:29)
[2018-09-29] MEDS: IPRATRPIUM/ALBUTEROL 0.5/2.5MG 3 ML NEBU. NEB SCH ×4 (06:45→20:29)
[2018-09-29 07:00] VITALS: BP 145/76
[2018-09-29] MEDS: INSULIN LISPRO 300 UNITS/3 ML INSULN.PEN. SQ SCH ×4 (07:30→20:45)
[2018-09-29] MEDS: ASPIRIN ENTERIC COATED 325 MG TABLET.DR. PO SCH (08:55)
[2018-09-29] MEDS: HYDROmorphone 2 MG/ML VIAL IV PRN ×3 (08:55→20:44)
[2018-09-29] MEDS: DOCUSATE SODIUM 100 MG CAPSULE. PO SCH ×2 (08:55→20:43)
[2018-09-29] MEDS: methylPREDNISolone SOD SUCC PF 40 MG/ML VIAL. IV SCH (08:55)
--- NOTE | 2018-09-29 09:33 | NUR ---
SW following. Discussed with RN, pt's diet has advanced to clear liquids. Pt is accepted at [facility]. SW will continue to follow.
--- NOTE | 2018-09-29 09:46 | PDOC ---
PULMONARY PROGRESS NOTES Subjective EATING NOT MORE SOA Vitals Vital Signs Date Time Temp Pulse Resp B/P (MAP) Pulse Ox O2 Delivery O2 Flow Rate FiO2 09/29/18 09:32 16 Room Air 09/29/18 08:56 75 145/76 09/29/18 07:00 98.0 93 3.0 98.0 ROS: No Chest Pain General: Alert, No acute distress HEENT: Other (nc at perrl) Lungs: Crackles (BASES) Cardiovascular: S1, S2 Abdomen: Soft, Non-tender, Other (distended) Neuro Exam: Alert, Oriented Extremities: No Edema, Other Skin: Warm Labs Laboratory Tests Test 09/27/18 11:39 09/27/18 16:44 09/27/18 17:46 09/27/18 21:32 Glucose (Fingerstick) 117 mg/dL (70-99) 243 mg/dL (70-99) 191 mg/dL (70-99) 61 mg/dL (70-99) Test 09/27/18 22:18 09/28/18 00:33 09/28/18 05:00 09/28/18 05:36 Glucose (Fingerstick) 109 mg/dL (70-99) 111 mg/dL (70-99) 165 mg/dL (70-99) White Blood Count 11.5 x10^3/uL (4.0-11.0) Red Blood Count 3.18 x10^6/uL (4.30-5.70) Hemoglobin 10.0 g/dL (13.0-17.5) Hematocrit 30.7 % (39.0-53.0) Mean Corpuscular Volume 97 fL (79-100) Mean Corpuscular Hemoglobin 32 pg (25-35) Mean Corpuscular Hemoglobin Concent 33 g/dL (31-37) Red Cell Distribution Width 14.4 % (11.5-14.5) Platelet Count 189 x10^3/uL (140-400) Sodium Level 135 mmol/L (136-145) Potassium Level 3.9 mmol/L (3.5-5.1) Chloride Level 100 mmol/L (98-107) Carbon Dioxide Level 30 mmol/L (21-32) Anion Gap 5 (6-14) Blood Urea Nitrogen 23 mg/dL (8-26) Creatinine 0.6 mg/dL (0.7-1.3) Estimated GFR (Cockcroft-Gault) 131.0 Glucose Level 180 mg/dL (70-99) Calcium Level 8.1 mg/dL (8.5-10.1) Test 09/28/18 08:22 09/28/18 11:09 09/28/18 12:55 09/28/18 16:47 Glucose (Fingerstick) 83 mg/dL (70-99) 132 mg/dL (70-99) 227 mg/dL (70-99) 196 mg/dL (70-99) Test 09/28/18 20:28 09/29/18 07:37 Glucose (Fingerstick) 150 mg/dL (70-99) 155 mg/dL (70-99) Laboratory Tests Test 09/28/18 11:09 09/28/18 12:55 09/28/18 16:47 09/28/18 20:28 Glucose (Fingerstick) 132 mg/dL (70-99) 227 mg/dL (70-99) 196 mg/dL (70-99) 150 mg/dL (70-99) Test 09/29/18 07:37 Glucose (Fingerstick) 155 mg/dL (70-99) Medications Active Scripts Medications Dose Route/Sig Max Daily Dose Days Date Category Magnesium Chloride 70 Mg Tablet.dr 64 Mg PO DAILY 30 08/30/18 Rx Synthroid (Levothyroxine Sodium) 88 Mcg Tablet 88 Mcg PO DAILY06 30 08/30/18 Rx Prednisone 20 Mg Tablet 20 Mg PO DAILY 30 08/30/18 Rx Budesonide 0.5 Mg/2 Ml Ampul.neb 0.5 Mg NEB RTBID 30 08/30/18 Rx Diltiazem 24HR Cd (Diltiazem Hcl) 180 Mg Cap.er.24h 180 Mg PO DAILY 90 08/30/18 Rx Hydrocodone-Apap 7.5-325 (Hydrocodone Bit/Acetaminophen) 1 Tab Tablet 1 Tab PO PRN Q6HRS PRN 08/26/18 Reported Prednisolone Sodium Phosphate (Prednisolone Sod Phosphate) 15 Mg/5 Ml Solution 15 Mg PO DAILY 08/26/18 Reported Omeprazole 40 Mg Capsule.dr 40 Mg PO DAILY 08/26/18 Reported Cartia Xt (Diltiazem Hcl) 120 Mg Cap.er.24h 120 Mg PO DAILY 08/26/18 Reported Prednisone (Prednisone) 10 Mg Tablet 40 Mg PO DAILY 30 07/16/18 Rx Klor-Con 10 (Potassium Chloride) 10 Meq Tablet.er 1 Tab PO DAILY 07/16/18 Rx Lasix (Furosemide) 40 Mg Tablet 1 Tab PO DAILY 07/16/18 Rx Aspirin Ec (Aspirin) 81 Mg Tablet. 81 Mg PO DAILYWBKFT 30 07/16/18 Rx Duoneb 0.5-3(2.5) Mg/3 Ml (Albuterol/Ipratropium) 3 Ml Ampul.neb 3 Ml NEB RTQID 30 07/01/18 Rx Diltiazem 24HR Cd (Diltiazem Hcl) 120 Mg Cap.er.24h 120 Mg PO DAILY 30 07/01/18 Rx Wellbutrin Xl (Bupropion Hcl) 150 Mg Tab.er.24h 1 Tab PO DAILY 06/30/18 Reported Omeprazole 40 Mg Capsule. 1 Cap PO 10/25/[address] of abd 09/25 1. Bibasilar consolidation in the lungs may be secondary to atelectasis or pneumonia superimposed on interstitial lung disease. 2. Dilated jejunal loop may be secondary to ileus or obstruction. Findings not significant changed when compared to previous exam. 3. Stable segment 7 liver lesion, nonspecific but has been present since July 2017 and most likely a benign entity given interval stability. Impression . IMPRESSION: 1. Chronic hypoxic respiratory failure. 2. Pulmonary fibrosis.ON CHRONIC STEROIDS 3. Small-bowel obstruction. S/P SURGERY 4. Bibasilar consolidation, atelectasis vs infilt will monitor PREOPERATIVE DIAGNOSIS: Small bowel obstruction. POSTOPERATIVE DIAGNOSIS: Small bowel obstruction, secondary to adhesive band. PROCEDURE: Diagnostic laparoscopy, followed by laparotomy with release of small-bowel obstruction and decompression of the small bowel. Plan . DIET PER SURGERY O2 NEB STEROIDS JON EDWARDS MD Sep 29, 2018 09:46
[2018-09-29] MEDS: ENOXAPARIN 40 MG/0.4 ML SYRINGE. SQ SCH (10:13)
--- NOTE | 2018-09-29 10:55 | PDOC ---
SURGICAL PROGRESS NOTE Subjective tolerating some full liquids, no nausea/vomiting, just poor appetite Vital Signs Vital Signs Date Time Temp Pulse Resp B/P (MAP) Pulse Ox O2 Delivery O2 Flow Rate FiO2 09/29/18 09:32 16 Room Air 09/29/18 08:56 75 145/76 09/29/18 08:00 3.0 09/29/18 07:00 98.0 93 98.0 I&O Intake and Output 09/29/18 07:00 Intake Total 100 ml Output Total 350 ml Balance -250 ml Intake Oral 100 ml Output Urine Total 350 ml PATIENT HAS A DELCID: No General: Alert, No acute distress Abdomen: Soft, Other (mildly distended, minimall TTP, scant serous drainage on dressing) Labs Laboratory Tests Test 09/27/18 11:39 09/27/18 16:44 09/27/18 17:46 09/27/18 21:32 Glucose (Fingerstick) 117 mg/dL (70-99) 243 mg/dL (70-99) 191 mg/dL (70-99) 61 mg/dL (70-99) Test 09/27/18 22:18 09/28/18 00:33 09/28/18 05:00 09/28/18 05:36 Glucose (Fingerstick) 109 mg/dL (70-99) 111 mg/dL (70-99) 165 mg/dL (70-99) White Blood Count 11.5 x10^3/uL (4.0-11.0) Red Blood Count 3.18 x10^6/uL (4.30-5.70) Hemoglobin 10.0 g/dL (13.0-17.5) Hematocrit 30.7 % (39.0-53.0) Mean Corpuscular Volume 97 fL (79-100) Mean Corpuscular Hemoglobin 32 pg (25-35) Mean Corpuscular Hemoglobin Concent 33 g/dL (31-37) Red Cell Distribution Width 14.4 % (11.5-14.5) Platelet Count 189 x10^3/uL (140-400) Sodium Level 135 mmol/L (136-145) Potassium Level 3.9 mmol/L (3.5-5.1) Chloride Level 100 mmol/L (98-107) Carbon Dioxide Level 30 mmol/L (21-32) Anion Gap 5 (6-14) Blood Urea Nitrogen 23 mg/dL (8-26) Creatinine 0.6 mg/dL (0.7-1.3) Estimated GFR (Cockcroft-Gault) 131.0 Glucose Level 180 mg/dL (70-99) Calcium Level 8.1 mg/dL (8.5-10.1) Test 09/28/18 08:22 09/28/18 11:09 09/28/18 12:55 09/28/18 16:47 Glucose (Fingerstick) 83 mg/dL (70-99) 132 mg/dL (70-99) 227 mg/dL (70-99) 196 mg/dL (70-99) Test 09/28/18 20:28 09/29/18 07:37 Glucose (Fingerstick) 150 mg/dL (70-99) 155 mg/dL (70-99) Laboratory Tests Test 09/28/18 11:09 09/28/18 12:55 09/28/18 16:47 09/28/18 20:28 Glucose (Fingerstick) 132 mg/dL (70-99) 227 mg/dL (70-99) 196 mg/dL (70-99) 150 mg/dL (70-99) Test 09/29/18 07:37 Glucose (Fingerstick) 155 mg/dL (70-99) I have reviewed the following KUB from yesterday shows dilated small bowel (slightly better?), contrast in colon Problem List Problems Medical Problems: (1) Generalized weakness Status: Acute Assessment/Plan given the chronicity and extent of the small bowel obstruction I'm not surprised resolution hasn't happened yet feel it is more of an ileus issue as opposed to obstruction (contrast has progressed from the small bowel to the colon) continue full liquids try to taper TPN continue to increase activity as tolerated SHAKEEL SOMMER MD Sep 29, 2018 10:55
[2018-09-29 11:00] VITALS: BP 95/58
[2018-09-29 15:00] VITALS: BP 100/61
[2018-09-29] MEDS: TPN PER PHARMACY MC PRN (15:00)
--- NOTE | 2018-09-29 15:04 | NUR ---
Pharmacy TPN Dosing Note S: JOHN ROBBINS is a 78 year old M Currently receiving Central Continuous TPN started 09/15/18 B:Pertinent PMH: SBO Height: 5 feet, 10 inches Weight: 60.625334 kg Current diet: NPO LABS: Sodium: 135 Potassium: 3.9 Chloride: 100 Calcium: 8.1 Corrected Calcium: 9.54 Magnesium: 2.1 CO2: 30 SCr: 0.6 Glucose: 180 Albumin: 2.2 AST: 27 ALT: 38 TPN FORMULA: TPN TYPE: Central Continuous AMINO ACIDS: 65 gm DEXTROSE: 225 gm LIPIDS: 20 gm SODIUM CHLORIDE: 80 mEq SODIUM ACETATE: 30 mEq POTASSIUM CHLORIDE: 20 mEq POTASSIUM PHOSPHATE: 20.4 mmol MAGNESIUM: 10 mEq MULTIPLE VITAMIN: 10 ml TRACE ELEMENTS: 1 ml(s) TPN PLAN: No lytes today. Continue same TPN. R: Continue TPN Will monitor electrolytes, glucose, and tolerance to TPN. Clemente Ann [facility], 09/29/18 [id number]
--- NOTE | 2018-09-29 16:02 | PDOC ---
PROGRESS NOTES Subjective Subjective Patient started to tolerate full liquids. Patient passing gas and had bowel movement yesterday. Objective Objective Vital Signs Date Time Temp Pulse Resp B/P (MAP) Pulse Ox O2 Delivery O2 Flow Rate FiO2 09/29/18 15:23 16 Room Air 09/29/18 15:04 3.0 09/29/18 11:00 98.0 75 95/58 (70) 94 98.0 Intake and Output 09/29/18 07:00 Intake Total 100 ml Output Total 350 ml Balance -250 ml Intake Oral 100 ml Output Urine Total 350 ml Physical Exam Abdomen: Other (also bowel sounds still hypoactive) Heart: Regular rate Extremities: No edema General: Alert Lungs: Clear to auscultation, Other (coarse breath sounds and posterior basis) Assessment Assessment Problems Medical Problems: (1) Generalized weakness Status: Acute Recurrent ileus Small bowel obstruction status post open reduction S/P open lap lysis of adhesion and SBO take down POD #15 Severe Protein Malnutrition Debilitation PAST MEDICAL HISTORY: Significant for: 1. Pulmonary fibrosis. 2. COPD. 3. SVT. 4. Hypertension. 5. Osteoarthritis. 6. Gastroesophageal reflux disease, status post dilatation of stricture. 7. Hypothyroidism. 8. BPH. 9. [id number]-[id number] diastolic congestive heart failure. 10. Severe protein malnutrition. 11. History of prostate cancer. 12. History of hepatitis C. 13. Major depression. Plan Plan of Care Consider transfer to [facility] with TPN if needed. Continue to monitor by mouth intake Possible discharge to [facility] in AM Comment Review of Relevant I have reviewed the following items sherine (where applicable) has been applied. Labs Laboratory Tests Test 09/27/18 16:44 09/27/18 17:46 09/27/18 21:32 09/27/18 22:18 Glucose (Fingerstick) 243 mg/dL (70-99) 191 mg/dL (70-99) 61 mg/dL (70-99) 109 mg/dL (70-99) Test 09/28/18 00:33 09/28/18 05:00 09/28/18 05:36 09/28/18 08:22 Glucose (Fingerstick) 111 mg/dL (70-99) 165 mg/dL (70-99) 83 mg/dL (70-99) White Blood Count 11.5 x10^3/uL (4.0-11.0) Red Blood Count 3.18 x10^6/uL (4.30-5.70) Hemoglobin 10.0 g/dL (13.0-17.5) Hematocrit 30.7 % (39.0-53.0) Mean Corpuscular Volume 97 fL (79-100) Mean Corpuscular Hemoglobin 32 pg (25-35) Mean Corpuscular Hemoglobin Concent 33 g/dL (31-37) Red Cell Distribution Width 14.4 % (11.5-14.5) Platelet Count 189 x10^3/uL (140-400) Sodium Level 135 mmol/L (136-145) Potassium Level 3.9 mmol/L (3.5-5.1) Chloride Level 100 mmol/L (98-107) Carbon Dioxide Level 30 mmol/L (21-32) Anion Gap 5 (6-14) Blood Urea Nitrogen 23 mg/dL (8-26) Creatinine 0.6 mg/dL (0.7-1.3) Estimated GFR (Cockcroft-Gault) 131.0 Glucose Level 180 mg/dL (70-99) Calcium Level 8.1 mg/dL (8.5-10.1) Test 09/28/18 11:09 09/28/18 12:55 09/28/18 16:47 09/28/18 20:28 Glucose (Fingerstick) 132 mg/dL (70-99) 227 mg/dL (70-99) 196 mg/dL (70-99) 150 mg/dL (70-99) Test 09/29/18 07:37 09/29/18 11:26 Glucose (Fingerstick) 155 mg/dL (70-99) 187 mg/dL (70-99) Laboratory Tests Test 09/28/18 16:47 09/28/18 20:28 09/29/18 07:37 09/29/18 11:26 Glucose (Fingerstick) 196 mg/dL (70-99) 150 mg/dL (70-99) 155 mg/dL (70-99) 187 mg/dL (70-99) Medications Current Medications Famotidine (Pepcid Vial) 20 mg 1X ONCE IVP Last administered on 09/12/18at 18: 07; Start 09/12/18 at 17:45; Stop 09/12/18 at 17:46; Status DC Ondansetron HCl (Zofran) 4 mg 1X ONCE IV Last administered on 09/12/18 18:07 ; Start 09/12/18 at 17:45; Stop 09/12/18 at 17:46; Status DC Iohexol (Omnipaque 300 Mg/ml) 75 ml 1X ONCE IV Last administered on 09/12/18at 18:35; Start 09/12/18 at 18:30; Stop 09/12/18 at 18:34; Status DC Info (CONTRAST GIVEN -- Rx MONITORING) 1 each PRN DAILY PRN MC SEE COMMENTS; Start 09/12/18 at 18:45; Stop 09/14/18 at 18:44; Status DC Fentanyl Citrate (Fentanyl 2ml Vial) 50 mcg 1X ONCE IV Last administered on 20:21; Start 09/12/18 at 20:00; Stop 09/12/18 at 20:01; Status DC Ondansetron HCl (Zofran) 4 mg PRN Q8HRS PRN IV NAUSEA/VOMITING; Start 09/12/18 at 20:30; Stop 09/13/18 at 20:29; Status DC Morphine Sulfate (Morphine Sulfate) 4 mg PRN Q2HR PRN IV PAIN Last administered on 09/13/18at 10:20; Start 09/12/18 at 20:30; Stop 09/13/18 at 20:29 ; Status DC Metronidazole 100 ml @ 100 mls/hr Q8HRS IV Last administered on 09/20/18 06: 30; Start 09/12/18 at 22:00; Stop 09/20/18 at 10:42; Status DC Ciprofloxacin/ Dextrose 200 ml @ 200 mls/hr 1X ONCE IV Last administered on 22:51; Start 09/12/18 at 20:30; Stop 09/12/18 at 21:29; Status DC Sodium Chloride 1,000 ml @ 75 mls/hr 1X ONCE IV Last administered on 22:51; Start 09/12/18 at 20:30; Stop 09/13/18 at 09:49; Status DC Budesonide (Pulmicort) 0.5 mg RTBID NEB Last administered on 09/29/18at 06:45; Start 09/13/18 at 09:30 Albuterol/ Ipratropium (Duoneb) 3 ml RTQID NEB Last administered on 09/29/18 14:50; Start 09/13/18 at 09:30 Methylprednisolone Sodium Succinate (SOLU-Medrol 40MG VIAL) 20 mg DAILY IV Last administered on 09/13/18 10:21; Start 09/13/18 at 10:00; Stop 09/14/18 at 12:55; Status DC Pantoprazole Sodium (PROTONIX VIAL for IV PUSH) 40 mg DAILYAC IVP Last administered on 09/21/18 06:34; Start 09/13/18 at 10:00; Stop 09/21/18 at 09:13 ; Status DC Enoxaparin Sodium (Lovenox 40mg Syringe) 40 mg Q24H SQ Last administered on 10:13; Start 09/13/18 at 10:00 Metoprolol Tartrate (Lopressor Vial) 5 mg Q6HRS IVP Last administered on 06:41; Start 09/13/18 at 14:00; Stop 09/19/18 at 11:39; Status DC Potassium Chloride/Water 100 ml @ 100 mls/hr Q1H IV Last administered on 17:10; Start 09/13/18 at 14:00; Stop 09/13/18 at 17:59; Status DC Throat Lozenges (Chloraseptic) 1 spray PRN Q2HR PRN PO SORE THROAT, 2nd choice Last administered on 09/14/18at 13:47; Start 09/13/18 at 16:45 Throat Lozenges (Cepacol Sore Throat Lozenge) 1 deniz PRN Q2HRS PRN PO SORE THROAT, 1st choice Last administered on 09/14/18 13:46; Start 09/13/18 at 16:45 Aspirin (Aspirin) 300 mg DAILY TN Last administered on 09/17/18 11:25; Start 09/14/18 at 09:00; Stop 09/18/18 at 13:30; Status DC Morphine Sulfate (Morphine Sulfate) 4 mg PRN Q2HR PRN IV MODERATE PAIN, SEVERE PAIN Last administered on 09/18/18 21:59; Start 09/13/18 at 21:15; Stop at 09:10; Status DC Barium Sulfate (E-Z-Hd) 680 gm 1X ONCE PO ; Start 09/14/18 at 08:00; Stop 09/14 at 08:01; Status DC Iohexol (Omnipaque 300 Mg/ml) 400 ml 1X ONCE PO Last administered on at 08:00; Start 09/14/18 at 08:00; Stop 09/14/18 at 08:01; Status DC Info (CONTRAST GIVEN -- Rx MONITORING) 1 each PRN DAILY PRN MC SEE COMMENTS; Start 09/14/18 at 08:00; Stop 09/16/18 at 07:59; Status DC Potassium Chloride/Water 100 ml @ 100 mls/hr Q1H IV ; Start 09/14/18 at 09:00; Stop 09/14/18 at 12:59; Status DC Methylprednisolone Sodium Succinate (SOLU-Medrol 125MG VIAL) 125 mg DAILY IV Last administered on 09/20/18at 09:01; Start 09/15/18 at 09:00; Stop 09/20/18 at 13:23; Status DC Info (Tpn Per Pharmacy) 1 each PRN DAILY PRN MC SEE COMMENTS Last administered on 09/14/18at 13:51; Start 09/14/18 at 13:30; Stop 09/14/18 at 14:27; Status DC Info (Tpn Per Pharmacy) 1 each PRN DAILY PRN MC SEE COMMENTS Last administered on 09/18/18at 09:54; Start 09/15/18 at 14:30; Stop 09/19/18 at 11:39; Status DC Amino Acids/ Glycerin/ Electrolytes 1,000 ml @ 80 mls/hr [id number] IV Last administered on 09/15/18at 03:32; Start 09/14/18 at 14:30; Stop 09/15/18 at 21:59 ; Status DC Cefazolin Sodium/ Dextrose 50 ml @ 100 mls/hr 1X PREOP PRN IV protocol Last administered on 09/14/18at 17:40; Start 09/15/18 at 06:00; Stop 09/15/18 at 18:00 ; Status DC Metronidazole 100 ml @ 100 mls/hr 1X PREOP PRN IV protocol; Start 09/15/18 at 06:00; Stop 09/15/18 at 18:00; Status DC Ondansetron HCl (Zofran) 4 mg PRN Q6HRS PRN IV NAUSEA/VOMITING; Start 09/14/18 at 16:00; Stop 09/15/18 at 01:45; Status DC Fentanyl Citrate (Fentanyl 2ml Vial) 25 mcg PRN Q5MIN PRN IV MILD PAIN; Start 09/14/18 at 16:00; Stop 09/15/18 at 01:40; Status DC Fentanyl Citrate (Fentanyl 2ml Vial) 50 mcg PRN Q5MIN PRN IV MODERATE TO SEVERE PAIN Last administered on 09/14/18at 20:27; Start 09/14/18 at 16:00; Stop 09/15/18 at 01:40; Status DC Morphine Sulfate (Morphine Sulfate) 1 mg PRN Q10MIN PRN IV SEVERE PAIN Last administered on 09/14/18at 21:51; Start 09/14/18 at 16:00; Stop 09/15/18 at 01:40 ; Status DC Ringer's Solution 1,000 ml @ 30 mls/hr Q24H IV Last administered on 09/14/18at 21:30; Start 09/14/18 at 15:52; Stop 09/15/18 at 01:40; Status DC Lidocaine HCl (Xylocaine-Mpf 1% 2ml Vial) 2 ml 1X PRN PRN ID IV START; Start at 16:00; Stop 09/15/18 at 15:59; Status DC Hydromorphone HCl (Dilaudid) 0.5 mg PRN Q10MIN PRN IV SEV PAIN, Second choice; Start 09/14/18 at 16:00; Stop 09/15/18 at 01:45; Status DC Prochlorperazine Edisylate (Compazine) 5 mg PACU PRN PRN IV NAUSEA, MRX1 Last administered on 09/14/18at 21:02; Start 09/14/18 at 16:00; Stop 09/15/18 at 01:40 ; Status DC Cefazolin Sodium/ Dextrose 50 ml @ As Directed STK-MED ONCE IV ; Start 09/14/18 at 16:08; Stop 09/14/18 at 16:09; Status DC Propofol 20 ml @ As Directed STK-MED ONCE IV ; Start 09/14/18 at 16:32; Stop 07/21 at 16:33; Status DC Dexamethasone Sodium Phosphate (Decadron) 20 mg STK-MED ONCE .ROUTE ; Start 07/21 at 16:32; Stop 09/14/18 at 16:33; Status DC Lidocaine HCl (Lidocaine Pf 2% Vial) 5 ml STK-MED ONCE .ROUTE ; Start 09/14/18 at 16:32; Stop 09/14/18 at 16:33; Status DC Ondansetron HCl (Zofran) 4 mg STK-MED ONCE .ROUTE ; Start 09/14/18 at 16:32; Stop 09/14/18 at 16:33; Status DC Succinylcholine Chloride (Anectine) 200 mg STK-MED ONCE .ROUTE ; Start 09/14/18 at 16:32; Stop 09/14/18 at 16:33; Status DC Rocuronium Stendal (Zemuron) 50 mg STK-MED ONCE .ROUTE ; Start 09/14/18 at 16:32 ; Stop 09/14/18 at 16:33; Status DC Fentanyl Citrate (Fentanyl 2ml Vial) 100 mcg STK-MED ONCE .ROUTE ; Start at 16:32; Stop 09/14/18 at 16:33; Status DC Bupivacaine HCl/ Epinephrine Bitart (Sensorcain-Mpf Epi 0.5%-[id number]) 30 ml STK -MED ONCE .ROUTE Last administered on 09/14/18at 17:57; Start 09/14/18 at 17:18 ; Stop 09/14/18 at 17:19; Status DC Cefazolin Sodium/ Dextrose 50 ml @ As Directed STK-MED ONCE IV ; Start 09/14/18 at 17:28; Stop 09/14/18 at 17:29; Status DC Lidocaine HCl (Glydo (Lidocaine) Jelly) 6 marcel STK-MED ONCE .ROUTE ; Start at 17:43; Stop 09/14/18 at 17:44; Status DC Hydrocortisone Sodium Succinate (Solu-CORTEF) 100 mg STK-MED ONCE .ROUTE ; Start 09/14/18 at 18:08; Stop 09/14/18 at 18:09; Status DC Phenylephrine HCl (Shaw-Synephrine Inj) 10 mg STK-MED ONCE .ROUTE ; Start at 18:11; Stop 09/14/18 at 18:12; Status DC Glycopyrrolate (Robinul) 1 mg STK-MED ONCE .ROUTE ; Start 09/14/18 at 19:05; Stop 09/14/18 at 19:06; Status DC Sevoflurane (Ultane) 60 ml STK-MED ONCE IH ; Start 09/14/18 at 19:23; Stop 09/14 at 19:24; Status DC Enoxaparin Sodium (Lovenox 40mg Syringe) 30 mg Q24H SQ ; Start 09/14/18 at 19:45 ; Status UNV Sodium Chloride (Normal Saline Flush) 3 ml QSHIFT PRN IV AFTER MEDS AND BLOOD DRAWS; Start 09/14/18 at 19:45 Hydromorphone HCl 30 ml @ 0 mls/hr CONT PRN PRN IV PER PROTOCOL Last administered on 09/14/18at 20:25; Start 09/14/18 at 19:45; Stop 09/15/18 at 08:34 ; Status DC Ondansetron HCl (Zofran) 4 mg PRN Q6HRS PRN IV NAUESA, 1ST CHOICE Last administered on 09/28/18at 23:45; Start 09/14/18 at 19:45 Ringer's Solution 1,000 ml @ 75 mls/hr [id number] IV Last administered on at 21:00; Start 09/14/18 at 21:00; Stop 09/15/18 at 01:45; Status DC Lorazepam (Ativan) 0.5 mg PRN Q6HRS PRN IV ANXIETY / AGITATION Last administered on 09/29/18at 15:53; Start 09/14/18 at 22:15 Albumin Human 250 ml @ 83.3 mls/hr 1X ONCE IV Last administered on 09/15/18at 01:15; Start 09/15/18 at 01:00; Stop 09/15/18 at 04:00; Status DC Hydromorphone HCl (Dilaudid) 0.5 mg PRN Q3HRS PRN IV MILD PAIN Last administered on 09/29/18at 14:10; Start 09/15/18 at 08:30 Albumin Human 500 ml @ 125 mls/hr 1X ONCE IV Last administered on 09/15/18at 10:23; Start 09/15/18 at 09:00; Stop 09/15/18 at 12:59; Status DC Sodium Chloride 250 ml @ 500 mls/hr 1X ONCE IV Last administered on at 11:00; Start 09/15/18 at 11:00; Stop 09/15/18 at 11:29; Status DC Sodium Chloride 1,000 ml @ 100 mls/hr Q10H IV Last administered on 09/15/18at 11:30; Start 09/15/18 at 11:30; Stop 09/15/18 at 22:00; Status DC Sodium Chloride 1,000 ml @ 75 mls/hr [id number] IV Last administered on at 00:12; Start 09/15/18 at 22:00; Stop 09/17/18 at 12:12; Status DC Sodium Acetate 90 meq/Potassium Chloride 50 meq/ Potassium Phosphate 3.4 mmol/ Magnesium Sulfate 10 meq/ Calcium Gluconate 10 meq/ Multivitamins 10 ml/Chromium / Copper/Manganese/ Seleni/Zn 1 ml/ Total Parenteral Nutrition/Amino Acids/ Dextrose/ Fat Emulsion Intravenous 1,512 ml @ 63 mls/hr TPN CONT IV Last administered on 09/15/18at 21:43; Start 09/15/18 at 22:00; Stop 09/16/18 at 21:59 ; Status DC Lidocaine/Sodium Bicarbonate (Buffered Lidocaine 1%) 3 ml STK-MED ONCE .ROUTE ; Start 09/15/18 at 14:35; Stop 09/15/18 at 14:36; Status DC Heparin Sodium/ Sodium Chloride 500 ml @ As Directed STK-MED ONCE .ROUTE ; Start 09/15/18 at 14:35; Stop 09/15/18 at 14:36; Status DC Heparin Sodium/ Sodium Chloride 500 ml @ As Directed STK-MED ONCE .ROUTE ; Start 09/15/18 at 14:36; Stop 09/15/18 at 14:37; Status DC Heparin Sodium/ Sodium Chloride (HEPARIN for ARTERIAL LINE FLUSH) 1,000 unit 1X ONCE IART Last administered on 09/15/18at 15:15; Start 09/15/18 at 15:15; Stop 09/15/18 at 15:16; Status DC Lidocaine/Sodium Bicarbonate (Buffered Lidocaine 1%) 3 ml 1X ONCE IJ Last administered on 09/15/18at 15:15; Start 09/15/18 at 15:15; Stop 09/15/18 at 15:16 ; Status DC Potassium Phosphate 13.6 mmol/Dextrose 104.5333 ml @ 52.267 m... 1X ONCE IV Last administered on 09/16/18at 09:53; Start 09/16/18 at 10:00; Stop 09/16/18 at 11:59; Status DC Sodium Acetate 90 meq/Potassium Chloride 50 meq/ Potassium Phosphate 15 mmol/ Magnesium Sulfate 10 meq/Calcium Gluconate 10 meq/ Multivitamins 10 ml/Chromium / Copper/Manganese/ Seleni/Zn 1 ml/ Total Parenteral Nutrition/Amino Acids/ Dextrose/ Fat Emulsion Intravenous 1,512 ml @ 63 mls/hr TPN CONT IV Last administered on 09/16/18at 21:49; Start 09/16/18 at 22:00; Stop 09/17/18 at 21:59 ; Status DC Albuterol/ Ipratropium (Duoneb) 3 ml RTQID NEB ; Start 09/16/18 at 12:00; Stop 09/16/18 at 12:00; Status DC Sodium Chloride 1,000 ml @ 75 mls/hr [id number] IV Last administered on at 06:20; Start 09/17/18 at 13:00; Stop 09/19/18 at 11:39; Status DC Potassium Phosphate 13.6 mmol/Dextrose 104.5333 ml @ 52.267 m... ONCE ONCE IV Last administered on 09/17/18at 14:14; Start 09/17/18 at 13:00; Stop 09/17/18 at 14:59; Status DC Sodium Acetate 90 meq/Potassium Acetate 40 meq/ Potassium Phosphate 20.4 mmol/ Magnesium Sulfate 10 meq/ Calcium Gluconate 10 meq/ Multivitamins 10 ml/Chromium / Copper/Manganese/ Seleni/Zn 1 ml/ Total Parenteral Nutrition/Amino Acids/ Dextrose/ Fat Emulsion Intravenous 1,512 ml @ 63 mls/hr TPN CONT IV Last administered on 09/17/18at 23:14; Start 09/17/18 at 22:00; Stop 09/18/18 at 21:59 ; Status DC Sodium Acetate 90 meq/Potassium Acetate 40 meq/ Potassium Phosphate 20.4 mmol/ Magnesium Sulfate 10 meq/ Calcium Gluconate 10 meq/ Multivitamins 10 ml/Chromium / Copper/Manganese/ Seleni/Zn 1 ml/ Total Parenteral Nutrition/Amino Acids/ Dextrose/ Fat Emulsion Intravenous 1,512 ml @ 63 mls/hr TPN CONT IV Last administered on 09/18/18 21:51; Start 09/18/18 at 22:00; Stop 09/19/18 at 11:39 ; Status DC Aspirin (Ecotrin) 325 mg [id number] PO Last administered on 09/29/18 08:55; Start 09/18/18 at 13:30 Acetaminophen/ Hydrocodone Bitart (Lortab 10/325) 1 tab PRN Q6HRS PRN PO PAIN Last administered on 09/28/18 20:23; Start 09/19/18 at 10:15 Levothyroxine Sodium (Synthroid) 88 mcg DAILY06 PO Last administered on 06:03; Start 09/19/18 at 15:30 Diltiazem HCl (Cardizem 24hr Cd) 120 mg DAILY PO Last administered on 08:56; Start 09/19/18 at 12:00 Info (Tpn Per Pharmacy) 1 each PRN DAILY PRN MC SEE COMMENTS Last administered on 09/29/18 15:00; Start 09/20/18 at 11:30 Sodium Acetate 90 meq/Potassium Acetate 40 meq/ Potassium Phosphate 20.4 mmol/ Magnesium Sulfate 10 meq/ Calcium Gluconate 10 meq/ Multivitamins 10 ml/Chromium / Copper/Manganese/ Seleni/Zn 1 ml/ Total Parenteral Nutrition/Amino Acids/ Dextrose/ Fat Emulsion Intravenous 1,512 ml @ 63 mls/hr TPN CONT IV Last administered on 09/20/18at 21:23; Start 09/20/18 at 22:00; Stop 09/21/18 at 21:59 ; Status DC Methylprednisolone Sodium Succinate (SOLU-Medrol 125MG VIAL) 60 mg DAILY IV ; Start 09/21/18 at 09:00; Stop 09/21/18 at 09:10; Status DC Insulin Human Lispro (HumaLOG) 0-5 UNITS TIDWMEALS SQ ; Start 09/21/18 at 08:00 ; Stop 09/21/18 at 09:08; Status DC Dextrose (Dextrose 50%-Water Syringe) 12.5 gm PRN Q15MIN PRN IV SEE COMMENTS Last administered on 09/27/18at 21:40; Start 09/21/18 at 00:00 Insulin Human Lispro (HumaLOG) 0-12 UNITS QIDACHS SQ Last administered on at 11:30; Start 09/21/18 at 11:30 Prednisone (Prednisone) 40 mg DAILY PO Last administered on 09/22/18at 08:44; Start 09/21/18 at 10:00; Stop 09/24/18 at 09:22; Status DC Pantoprazole Sodium (Protonix) 40 mg DAILYAC PO Last administered on 09/22/18at 07:01; Start 09/22/18 at 07:30; Stop 09/24/18 at 09:21; Status DC Sodium Acetate 90 meq/Potassium Acetate 40 meq/ Potassium Phosphate 20.4 mmol/ Magnesium Sulfate 10 meq/ Calcium Gluconate 10 meq/ Multivitamins 10 ml/Chromium / Copper/Manganese/ Seleni/Zn 1 ml/ Total Parenteral Nutrition/Amino Acids/ Dextrose/ Fat Emulsion Intravenous 1,512 ml @ 63 mls/hr TPN CONT IV Last administered on 09/21/18at 21:07; Start 09/21/18 at 22:00; Stop 09/22/18 at 21:59 ; Status DC Sertraline HCl (Zoloft) 25 mg QHS PO Last administered on 09/28/18at 20:23; Start 09/21/18 at 21:00 Sodium Acetate 90 meq/Potassium Acetate 40 meq/ Potassium Phosphate 20.4 mmol/ Magnesium Sulfate 10 meq/ Calcium Gluconate 10 meq/ Multivitamins 10 ml/Chromium / Copper/Manganese/ Seleni/Zn 1 ml/ Total Parenteral Nutrition/Amino Acids/ Dextrose/ Fat Emulsion Intravenous 1,512 ml @ 63 mls/hr TPN CONT IV Last administered on 09/22/18at 21:11; Start 09/22/18 at 22:00; Stop 09/23/18 at 21:59 ; Status DC Sodium Acetate 90 meq/Potassium Acetate 40 meq/ Potassium Phosphate 20.4 mmol/ Magnesium Sulfate 10 meq/ Calcium Gluconate 10 meq/ Multivitamins 10 ml/Chromium / Copper/Manganese/ Seleni/Zn 1 ml/ Insulin Human Regular 10 unit/ Total Parenteral Nutrition/Amino Acids/Dextrose/ Fat Emuls... 1,512 ml @ 63 mls/hr TPN CONT IV Last administered on 09/23/18at 21:22; Start 09/23/18 at 22:00; Stop 09/24/18 at 21:59; Status DC Insulin Human Lispro (HumaLOG) 5 units Q6HRS SQ Last administered on 09/28/18at 17:53; Start 09/23/18 at 18:00; Stop 09/28/18 at 19:19; Status DC Pantoprazole Sodium (PROTONIX VIAL for IV PUSH) 40 mg 1X ONCE IVP Last administered on 09/23/18at 13:03; Start 09/23/18 at 12:30; Stop 09/23/18 at 12:31 ; Status DC Methylprednisolone Sodium Succinate (SOLU-Medrol 40MG VIAL) 40 mg 1X ONCE IV Last administered on 09/23/18at 13:03; Start 09/23/18 at 12:30; Stop 09/23/18 at 12:31; Status DC Pantoprazole Sodium (PROTONIX VIAL for IV PUSH) 40 mg 1X ONCE IVP Last administered on 09/24/18at 09:07; Start 09/24/18 at 08:00; Stop 09/24/18 at 08:02 ; Status DC Methylprednisolone Sodium Succinate (SOLU-Medrol 40MG VIAL) 40 mg DAILY IV Last administered on 09/25/18at 08:01; Start 09/24/18 at 10:00; Stop 09/25/18 at 10:07; Status DC Pantoprazole Sodium (PROTONIX VIAL for IV PUSH) 40 mg DAILYAC IVP Last administered on 09/27/18at 07:58; Start 09/24/18 at 10:00; Stop 09/27/18 at 15:37 ; Status DC Sodium Acetate 90 meq/Potassium Chloride 20 meq/ Potassium Phosphate 20.4 mmol/ Magnesium Sulfate 10 meq/ Calcium Gluconate 10 meq/ Multivitamins 10 ml/Chromium / Copper/Manganese/ Seleni/Zn 1 ml/ Insulin Human Regular 10 unit/ Total Parenteral Nutrition/Amino Acids/Dextrose/ Fat Emuls... 1,512 ml @ 63 mls/hr TPN CONT IV Last administered on 09/24/18at 21:32; Start 09/24/18 at 22:00; Stop 09/25/18 at 21:59; Status DC Iohexol (Omnipaque 300 Mg/ml) 75 ml 1X ONCE IV Last administered on 09/24/18at 20:50; Start 09/24/18 at 19:00; Stop 09/24/18 at 19:01; Status DC Info (CONTRAST GIVEN -- Rx MONITORING) 1 each PRN DAILY PRN MC SEE COMMENTS; Start 09/24/18 at 19:15; Stop 09/26/18 at 19:14; Status DC Iohexol (Omnipaque 240 Mg/ml) 30 ml 1X ONCE PO Last administered on 09/25/18at 09:00; Start 09/25/18 at 09:00; Stop 09/25/18 at 09:01; Status DC Iohexol (Omnipaque 300 Mg/ml) 75 ml 1X ONCE IV Last administered on 09/25/18at 09:00; Start 09/25/18 at 09:00; Stop 09/25/18 at 09:01; Status DC Info (CONTRAST GIVEN -- Rx MONITORING) 1 each PRN DAILY PRN MC SEE COMMENTS; Start 09/25/18 at 09:00; Stop 09/27/18 at 08:59; Status DC Methylprednisolone Sodium Succinate (SOLU-Medrol 40MG VIAL) 20 mg DAILY IV Last administered on 09/29/18at 08:55; Start 09/26/18 at 09:00 Sodium Acetate 90 meq/Potassium Chloride 20 meq/ Potassium Phosphate 20.4 mmol/ Magnesium Sulfate 10 meq/ Calcium Gluconate 10 meq/ Multivitamins 10 ml/Chromium / Copper/Manganese/ Seleni/Zn 1 ml/ Insulin Human Regular 10 unit/ Total Parenteral Nutrition/Amino Acids/Dextrose/ Fat Emuls... 1,512 ml @ 63 mls/hr TPN CONT IV Last administered on 09/25/18at 21:45; Start 09/25/18 at 22:00; Stop 09/26/18 at 21:59; Status DC Sodium Chloride 60 meq/Sodium Acetate 30 meq/ Potassium Chloride 20 meq/ Potassium Phosphate 20.4 mmol/Magnesium Sulfate 10 meq/ Calcium Gluconate 10 meq / Multivitamins 10 ml/Chromium/ Copper/Manganese/ Seleni/Zn 1 ml/ Insulin Human Regular 10 unit/ Total Parenteral Nutrition/Am... 1,512 ml @ 63 mls/hr TPN CONT IV Last administered on 09/26/18at 21:52; Start 09/26/18 at 22:00; Stop at 21:59; Status DC Sodium Chloride 60 meq/Sodium Acetate 30 meq/ Potassium Chloride 20 meq/ Potassium Phosphate 20.4 mmol/Magnesium Sulfate 10 meq/ Calcium Gluconate 10 meq / Multivitamins 10 ml/Chromium/ Copper/Manganese/ Seleni/Zn 1 ml/ Insulin Human Regular 10 unit/ Total Parenteral Nutrition/Am... 1,512 ml @ 63 mls/hr TPN CONT IV Last administered on 09/27/18at 21:27; Start 09/27/18 at 22:00; Stop at 21:59; Status DC Pantoprazole Sodium (Protonix) 40 mg DAILYAC PO Last administered on 09/29/18at 06:03; Start 09/28/18 at 07:30 Sodium Chloride 80 meq/Sodium Acetate 30 meq/ Potassium Chloride 20 meq/ Potassium Phosphate 20.4 mmol/Magnesium Sulfate 10 meq/ Calcium Gluconate 10 meq / Multivitamins 10 ml/Chromium/ Copper/Manganese/ Seleni/Zn 1 ml/ Insulin Human Regular 10 unit/ Total Parenteral Nutrition/Am... 1,512 ml @ 63 mls/hr TPN CONT IV Last administered on 09/28/18at 22:05; Start 09/28/18 at 22:00; Stop at 21:59 Docusate Sodium (Colace) 100 mg BID PO Last administered on 09/29/18at 08:55; Start 09/28/18 at 21:00 Sodium Chloride 80 meq/Sodium Acetate 30 meq/ Potassium Chloride 20 meq/ Potassium Phosphate 20.4 mmol/Magnesium Sulfate 10 meq/ Calcium Gluconate 10 meq / Multivitamins 10 ml/Chromium/ Copper/Manganese/ Seleni/Zn 1 ml/ Insulin Human Regular 10 unit/ Total Parenteral Nutrition/Am... 1,512 ml @ 63 mls/hr TPN CONT IV ; Start 09/29/18 at 22:00; Stop 09/30/18 at 21:59 Active Scripts Active Magnesium Chloride 70 Mg Tablet.dr 64 Mg PO DAILY 30 Days Synthroid (Levothyroxine Sodium) 88 Mcg Tablet 88 Mcg PO DAILY06 30 Days Prednisone 20 Mg Tablet 20 Mg PO DAILY 30 Days Budesonide 0.5 Mg/2 Ml Ampul.neb 0.5 Mg NEB RTBID 30 Days Diltiazem 24HR Cd (Diltiazem Hcl) 180 Mg Cap.er.24h 180 Mg PO DAILY 90 Days Prednisone (Prednisone) 10 Mg Tablet 40 Mg PO DAILY 30 Days Klor-Con 10 (Potassium Chloride) 10 Meq Tablet.er 1 Tab PO DAILY Lasix (Furosemide) 40 Mg Tablet 1 Tab PO DAILY Aspirin Ec (Aspirin) 81 Mg Tablet.dr 81 Mg PO DAILYWBKFT 30 Days Duoneb 0.5-3(2.5) Mg/3 Ml (Albuterol/Ipratropium) 3 Ml Ampul.neb 3 Ml NEB RTQID 30 Days Diltiazem 24HR Cd (Diltiazem Hcl) 120 Mg Cap.er.24h 120 Mg PO DAILY 30 Days Reported Hydrocodone-Apap 7.5-325 (Hydrocodone Bit/Acetaminophen) 1 Tab Tablet 1 Tab PO PRN Q6HRS PRN Prednisolone Sodium Phosphate (Prednisolone Sod Phosphate) 15 Mg/5 Ml Solution 15 Mg PO DAILY Omeprazole 40 Mg Capsule.dr 40 Mg PO DAILY Cartia Xt (Diltiazem Hcl) 120 Mg Cap.er.24h 120 Mg PO DAILY Wellbutrin Xl (Bupropion Hcl) 150 Mg Tab.er.24h 1 Tab PO DAILY Omeprazole 40 Mg Capsule.dr 1 Cap PO Vitals/I & O Vital Sign - Last 24 Hours 09/28/18 09/28/18 09/28/18 09/28/18 16:22 19:00 20:00 20:07 Temp 97.9 97.9 Pulse 71 Resp 18 18 B/P (MAP) 104/67 (79) Pulse Ox 99 100 O2 Delivery Nasal Cannula Nasal Cannula Nasal Cannula Nasal Cannula O2 Flow Rate 3.0 2.0 3.0 3.0 09/28/18 09/28/18 09/28/18 09/28/18 20:23 21:23 22:46 23:43 Temp 97.9 97.9 Pulse 88 Resp 20 20 16 20 B/P (MAP) 105/63 (77) Pulse Ox 100 100 100 100 O2 Delivery Nasal Cannula Nasal Cannula Nasal Cannula Nasal Cannula O2 Flow Rate 3.0 2.0 2.0 2.0 09/29/18 09/29/18 09/29/18 09/29/18 00:13 03:00 06:46 07:00 Temp 98.9 98.0 98.9 98.0 Pulse 86 75 Resp 16 18 B/P (MAP) 101/65 (77) 145/76 (99) Pulse Ox 100 100 100 93 O2 Delivery Nasal Cannula Nasal Cannula Nasal Cannula O2 Flow Rate 3.0 2.0 3.0 3.0 09/29/18 09/29/18 09/29/18 09/29/18 08:00 08:55 08:56 10:51 Pulse 75 Resp 16 B/P (MAP) 145/76 Pulse Ox 97 O2 Delivery Nasal Cannula Room Air Nasal Cannula O2 Flow Rate 3.0 3.0 09/29/18 09/29/18 09/29/18 09/29/18 11:00 14:10 15:04 15:23 Temp 98.0 98.0 Pulse 75 Resp 18 18 16 B/P (MAP) 95/58 (70) Pulse Ox 94 O2 Delivery Nasal Cannula Nasal Cannula Nasal Cannula Room Air O2 Flow Rate 3.0 3.0 3.0 Intake and Output 09/28/18 09/28/18 09/29/18 15:00 23:00 07:00 Intake Total 100 ml Output Total 350 ml Balance -250 ml Nutrition Consultation Dietary Evaluation: Recommendations by RD: PPN/TPN Comments: REC continue TPN per followin grams dextrose, 65 grams AA, 20 grams lipid advance diet when able Expected Outcomes/Goals: TPN for nutrition needs s/p abdominal surgery until po intake tolerated w/ solid foods Interpretation of weight loss: >5% in 1 month Malnutrition Findings: Food and Nutrition Intake (Sev: <50% est energy req 5days Weight Status: Underweight LOURDES POLLOCK MD Sep 29, 2018 16:02
[2018-09-29 19:00] VITALS: BP 126/70
[2018-09-29] MEDS: SERTRALINE 25 MG TABLET. PO SCH (20:43)
[2018-09-29] MEDS ORDERED: AMINO ACID IV SCH ×12 (22:00)
[2018-09-29] MEDS ORDERED: TOTAL PARENTERAL NUTRITION IV SCH ×12 (22:00)
[2018-09-29] MEDS ORDERED: [UNRECOGNIZED DRUG - OTHER] IV SCH ×12 (22:00)
[2018-09-29] MEDS ORDERED: DEXTROSE 70% IV SCH ×12 (22:00)
[2018-09-29 23:00] VITALS: BP 106/54
[2018-09-30] VITALS (7 sets, daily range): BP systolic 100–163; BP diastolic 59–85
[2018-09-30] MEDS: LEVOTHYROXINE 88 MCG TABLET PO SCH (05:27)
[2018-09-30] MEDS: HYDROmorphone 2 MG/ML VIAL IV PRN (05:28)
[2018-09-30 06:11] LABS: CALCIUM 7.8 mg/dL (8.5-10.1); CREATININE 0.5 mg/dL (0.7-1.3); GFR 161.7; POTASSIUM 4.2 mmol/L (3.5-5.1)
[2018-09-30] MEDS: BUDESONIDE 0.5 MG/2 ML NEBU. NEB SCH ×2 (06:50→21:14)
[2018-09-30] MEDS: IPRATRPIUM/ALBUTEROL 0.5/2.5MG 3 ML NEBU. NEB SCH ×4 (06:51→21:14)
[2018-09-30] MEDS: INSULIN LISPRO 300 UNITS/3 ML INSULN.PEN. SQ SCH ×4 (07:30→21:00)
--- NOTE | 2018-09-30 08:14 | PDOC ---
SURGICAL PROGRESS NOTE Subjective eating full liquid breakfast seems brighter this AM Vital Signs Vital Signs Date Time Temp Pulse Resp B/P (MAP) Pulse Ox O2 Delivery O2 Flow Rate FiO2 09/30/18 07:00 97.9 65 18 100/59 (73) 96 Nasal Cannula 3.0 97.9 I&O Intake and Output 09/30/18 07:00 Output Total 350 ml Balance -350 ml Output Urine Total 350 ml # Voids 2 PATIENT HAS A DELCID: No General: Alert, Oriented X3, No acute distress Abdomen: Soft Labs Laboratory Tests Test 09/28/18 08:22 09/28/18 11:09 09/28/18 12:55 09/28/18 16:47 Glucose (Fingerstick) 83 mg/dL (70-99) 132 mg/dL (70-99) 227 mg/dL (70-99) 196 mg/dL (70-99) Test 09/28/18 20:28 09/29/18 07:37 09/29/18 11:26 09/29/18 16:32 Glucose (Fingerstick) 150 mg/dL (70-99) 155 mg/dL (70-99) 187 mg/dL (70-99) 223 mg/dL (70-99) Test 09/29/18 20:35 09/30/18 05:50 09/30/18 07:28 Glucose (Fingerstick) 155 mg/dL (70-99) 129 mg/dL (70-99) Sodium Level 138 mmol/L (136-145) Potassium Level 4.2 mmol/L (3.5-5.1) Chloride Level 102 mmol/L (98-107) Carbon Dioxide Level 31 mmol/L (21-32) Anion Gap 5 (6-14) Blood Urea Nitrogen 17 mg/dL (8-26) Creatinine 0.5 mg/dL (0.7-1.3) Estimated GFR (Cockcroft-Gault) 161.7 Glucose Level 118 mg/dL (70-99) Calcium Level 7.8 mg/dL (8.5-10.1) Phosphorus Level 3.0 mg/dL (2.6-4.7) Magnesium Level 2.0 mg/dL (1.8-2.4) Laboratory Tests Test 09/29/18 11:26 09/29/18 16:32 09/29/18 20:35 09/30/18 05:50 Glucose (Fingerstick) 187 mg/dL (70-99) 223 mg/dL (70-99) 155 mg/dL (70-99) Sodium Level 138 mmol/L (136-145) Potassium Level 4.2 mmol/L (3.5-5.1) Chloride Level 102 mmol/L (98-107) Carbon Dioxide Level 31 mmol/L (21-32) Anion Gap 5 (6-14) Blood Urea Nitrogen 17 mg/dL (8-26) Creatinine 0.5 mg/dL (0.7-1.3) Estimated GFR (Cockcroft-Gault) 161.7 Glucose Level 118 mg/dL (70-99) Calcium Level 7.8 mg/dL (8.5-10.1) Phosphorus Level 3.0 mg/dL (2.6-4.7) Magnesium Level 2.0 mg/dL (1.8-2.4) Test 09/30/18 07:28 Glucose (Fingerstick) 129 mg/dL (70-99) Problem List Problems Medical Problems: (1) Generalized weakness Status: Acute Assessment/Plan s/p release SBO continue po taper TPN continue to increase activity as tolerated SHAKEEL SOMMER MD Sep 30, 2018 08:14
--- NOTE | 2018-09-30 08:53 | PDOC ---
PULMONARY PROGRESS NOTES Subjective EATING NOT MORE SOA Vitals Vital Signs Date Time Temp Pulse Resp B/P (MAP) Pulse Ox O2 Delivery O2 Flow Rate FiO2 09/30/18 07:00 97.9 65 18 100/59 (73) 96 Nasal Cannula 3.0 97.9 ROS: No Chest Pain General: Alert, No acute distress HEENT: Other (nc at perrl) Lungs: Crackles (BASES) Cardiovascular: S1, S2 Abdomen: Soft, Non-tender, Other (distended) Neuro Exam: Alert, Oriented Extremities: No Edema, Other Skin: Warm Labs Laboratory Tests Test 09/28/18 11:09 09/28/18 12:55 09/28/18 16:47 09/28/18 20:28 Glucose (Fingerstick) 132 mg/dL (70-99) 227 mg/dL (70-99) 196 mg/dL (70-99) 150 mg/dL (70-99) Test 09/29/18 07:37 09/29/18 11:26 09/29/18 16:32 09/29/18 20:35 Glucose (Fingerstick) 155 mg/dL (70-99) 187 mg/dL (70-99) 223 mg/dL (70-99) 155 mg/dL (70-99) Test 09/30/18 05:50 09/30/18 07:28 Sodium Level 138 mmol/L (136-145) Potassium Level 4.2 mmol/L (3.5-5.1) Chloride Level 102 mmol/L (98-107) Carbon Dioxide Level 31 mmol/L (21-32) Anion Gap 5 (6-14) Blood Urea Nitrogen 17 mg/dL (8-26) Creatinine 0.5 mg/dL (0.7-1.3) Estimated GFR (Cockcroft-Gault) 161.7 Glucose Level 118 mg/dL (70-99) Calcium Level 7.8 mg/dL (8.5-10.1) Phosphorus Level 3.0 mg/dL (2.6-4.7) Magnesium Level 2.0 mg/dL (1.8-2.4) Glucose (Fingerstick) 129 mg/dL (70-99) Laboratory Tests Test 09/29/18 11:26 09/29/18 16:32 09/29/18 20:35 09/30/18 05:50 Glucose (Fingerstick) 187 mg/dL (70-99) 223 mg/dL (70-99) 155 mg/dL (70-99) Sodium Level 138 mmol/L (136-145) Potassium Level 4.2 mmol/L (3.5-5.1) Chloride Level 102 mmol/L (98-107) Carbon Dioxide Level 31 mmol/L (21-32) Anion Gap 5 (6-14) Blood Urea Nitrogen 17 mg/dL (8-26) Creatinine 0.5 mg/dL (0.7-1.3) Estimated GFR (Cockcroft-Gault) 161.7 Glucose Level 118 mg/dL (70-99) Calcium Level 7.8 mg/dL (8.5-10.1) Phosphorus Level 3.0 mg/dL (2.6-4.7) Magnesium Level 2.0 mg/dL (1.8-2.4) Test 09/30/18 07:28 Glucose (Fingerstick) 129 mg/dL (70-99) Medications Active Scripts Medications Dose Route/Sig Max Daily Dose Days Date Category Magnesium Chloride 70 Mg Tablet.dr 64 Mg PO DAILY 30 08/30/18 Rx Synthroid (Levothyroxine Sodium) 88 Mcg Tablet 88 Mcg PO DAILY06 30 08/30/18 Rx Prednisone 20 Mg Tablet 20 Mg PO DAILY 30 08/30/18 Rx Budesonide 0.5 Mg/2 Ml Ampul.neb 0.5 Mg NEB RTBID 30 08/30/18 Rx Diltiazem 24HR Cd (Diltiazem Hcl) 180 Mg Cap.er.24h 180 Mg PO DAILY 90 08/30/18 Rx Hydrocodone-Apap 7.5-325 (Hydrocodone Bit/Acetaminophen) 1 Tab Tablet 1 Tab PO PRN Q6HRS PRN 08/26/18 Reported Prednisolone Sodium Phosphate (Prednisolone Sod Phosphate) 15 Mg/5 Ml Solution 15 Mg PO DAILY 08/26/18 Reported Omeprazole 40 Mg Capsule.dr 40 Mg PO DAILY 08/26/18 Reported Cartia Xt (Diltiazem Hcl) 120 Mg Cap.er.24h 120 Mg PO DAILY 08/26/18 Reported Prednisone (Prednisone) 10 Mg Tablet 40 Mg PO DAILY 30 07/16/18 Rx Klor-Con 10 (Potassium Chloride) 10 Meq Tablet.er 1 Tab PO DAILY 07/16/18 Rx Lasix (Furosemide) 40 Mg Tablet 1 Tab PO DAILY 07/16/18 Rx Aspirin Ec (Aspirin) 81 Mg Tablet. 81 Mg PO DAILYWBKFT 30 07/16/18 Rx Duoneb 0.5-3(2.5) Mg/3 Ml (Albuterol/Ipratropium) 3 Ml Ampul.neb 3 Ml NEB RTQID 30 07/01/18 Rx Diltiazem 24HR Cd (Diltiazem Hcl) 120 Mg Cap.er.24h 120 Mg PO DAILY 30 07/01/18 Rx Wellbutrin Xl (Bupropion Hcl) 150 Mg Tab.er.24h 1 Tab PO DAILY 06/30/18 Reported Omeprazole 40 Mg Capsule. 1 Cap PO 10/25/[address] of abd 09/25 1. Bibasilar consolidation in the lungs may be secondary to atelectasis or pneumonia superimposed on interstitial lung disease. 2. Dilated jejunal loop may be secondary to ileus or obstruction. Findings not significant changed when compared to previous exam. 3. Stable segment 7 liver lesion, nonspecific but has been present since July 2017 and most likely a benign entity given interval stability. Impression . IMPRESSION: 1. Chronic hypoxic respiratory failure. 2. Pulmonary fibrosis.ON CHRONIC STEROIDS 3. Small-bowel obstruction. S/P SURGERY 4. Bibasilar consolidation, atelectasis vs infilt will monitor PREOPERATIVE DIAGNOSIS: Small bowel obstruction. POSTOPERATIVE DIAGNOSIS: Small bowel obstruction, secondary to adhesive band. PROCEDURE: Diagnostic laparoscopy, followed by laparotomy with release of small-bowel obstruction and decompression of the small bowel. Plan . PT/OT DIET PER SURGERY O2 NEB STEROIDS JON EDWARDS MD Sep 30, 2018 08:53
[2018-09-30] MEDS: ENOXAPARIN 40 MG/0.4 ML SYRINGE. SQ SCH (09:02)
[2018-09-30] MEDS: DOCUSATE SODIUM 100 MG CAPSULE. PO SCH ×2 (09:03→21:26)
[2018-09-30] MEDS: methylPREDNISolone SOD SUCC PF 40 MG/ML VIAL. IV SCH (09:03)
[2018-09-30] MEDS: PANTOPRAZOLE 40 MG TABLET.DR. PO SCH (09:03)
[2018-09-30] MEDS: ASPIRIN ENTERIC COATED 325 MG TABLET.DR. PO SCH (09:03)
[2018-09-30] MEDS: HYDROcodone/APAP 10/325 1 TAB TABLET PO PRN ×3 (09:20→21:25)
--- NOTE | 2018-09-30 11:13 | PDOC ---
PROGRESS NOTES Subjective Subjective Patient feels better tolerating full liquid diet. Still no BM or significant flatus. Objective Objective Vital Signs Date Time Temp Pulse Resp B/P (MAP) Pulse Ox O2 Delivery O2 Flow Rate FiO2 09/30/18 09:20 Nasal Cannula 3.0 09/30/18 09:00 65 100/59 09/30/18 07:00 97.9 18 96 97.9 Intake and Output 09/30/18 07:00 Output Total 350 ml Balance -350 ml Output Urine Total 350 ml # Voids 2 Physical Exam Abdomen: Other (hypoactive) Heart: Regular rate Extremities: No edema General: Alert Lungs: Clear to auscultation, Other (course BS bases) Assessment Assessment Problems Medical Problems: (1) Generalized weakness Status: Acute Recurrent ileus Small bowel obstruction status post open reduction S/P open lap lysis of adhesion and SBO take down POD #16 Severe Protein Malnutrition Debilitation PAST MEDICAL HISTORY: Significant for: 1. Pulmonary fibrosis. 2. COPD. 3. SVT. 4. Hypertension. 5. Osteoarthritis. 6. Gastroesophageal reflux disease, status post dilatation of stricture. 7. Hypothyroidism. 8. BPH. 9. Ljqhn-[id number] diastolic congestive heart failure. 10. Severe protein malnutrition. 11. History of prostate cancer. 12. History of hepatitis C. 13. Major depression. Plan Plan of Care Await improved bowel function Wean TPN Change to PO meds Increase depression treatment SNU in am if stable and improved bowel function Comment Review of Relevant I have reviewed the following items sherine (where applicable) has been applied. Labs Laboratory Tests Test 09/28/18 12:55 09/28/18 16:47 09/28/18 20:28 09/29/18 07:37 Glucose (Fingerstick) 227 mg/dL (70-99) 196 mg/dL (70-99) 150 mg/dL (70-99) 155 mg/dL (70-99) Test 09/29/18 11:26 09/29/18 16:32 09/29/18 20:35 09/30/18 05:50 Glucose (Fingerstick) 187 mg/dL (70-99) 223 mg/dL (70-99) 155 mg/dL (70-99) Sodium Level 138 mmol/L (136-145) Potassium Level 4.2 mmol/L (3.5-5.1) Chloride Level 102 mmol/L (98-107) Carbon Dioxide Level 31 mmol/L (21-32) Anion Gap 5 (6-14) Blood Urea Nitrogen 17 mg/dL (8-26) Creatinine 0.5 mg/dL (0.7-1.3) Estimated GFR (Cockcroft-Gault) 161.7 Glucose Level 118 mg/dL (70-99) Calcium Level 7.8 mg/dL (8.5-10.1) Phosphorus Level 3.0 mg/dL (2.6-4.7) Magnesium Level 2.0 mg/dL (1.8-2.4) Test 09/30/18 07:28 Glucose (Fingerstick) 129 mg/dL (70-99) Laboratory Tests Test 09/29/18 11:26 09/29/18 16:32 09/29/18 20:35 09/30/18 05:50 Glucose (Fingerstick) 187 mg/dL (70-99) 223 mg/dL (70-99) 155 mg/dL (70-99) Sodium Level 138 mmol/L (136-145) Potassium Level 4.2 mmol/L (3.5-5.1) Chloride Level 102 mmol/L (98-107) Carbon Dioxide Level 31 mmol/L (21-32) Anion Gap 5 (6-14) Blood Urea Nitrogen 17 mg/dL (8-26) Creatinine 0.5 mg/dL (0.7-1.3) Estimated GFR (Cockcroft-Gault) 161.7 Glucose Level 118 mg/dL (70-99) Calcium Level 7.8 mg/dL (8.5-10.1) Phosphorus Level 3.0 mg/dL (2.6-4.7) Magnesium Level 2.0 mg/dL (1.8-2.4) Test 09/30/18 07:28 Glucose (Fingerstick) 129 mg/dL (70-99) Medications Current Medications Famotidine (Pepcid Vial) 20 mg 1X ONCE IVP Last administered on 09/12/18at 18: 07; Start 09/12/18 at 17:45; Stop 09/12/18 at 17:46; Status DC Ondansetron HCl (Zofran) 4 mg 1X ONCE IV Last administered on 09/12/18at 18:07 ; Start 09/12/18 at 17:45; Stop 09/12/18 at 17:46; Status DC Iohexol (Omnipaque 300 Mg/ml) 75 ml 1X ONCE IV Last administered on 09/12/18at 18:35; Start 09/12/18 at 18:30; Stop 09/12/18 at 18:34; Status DC Info (CONTRAST GIVEN -- Rx MONITORING) 1 each PRN DAILY PRN MC SEE COMMENTS; Start 09/12/18 at 18:45; Stop 09/14/18 at 18:44; Status DC Fentanyl Citrate (Fentanyl 2ml Vial) 50 mcg 1X ONCE IV Last administered on 20:21; Start 09/12/18 at 20:00; Stop 09/12/18 at 20:01; Status DC Ondansetron HCl (Zofran) 4 mg PRN Q8HRS PRN IV NAUSEA/VOMITING; Start 09/12/18 at 20:30; Stop 09/13/18 at 20:29; Status DC Morphine Sulfate (Morphine Sulfate) 4 mg PRN Q2HR PRN IV PAIN Last administered on 09/13/18at 10:20; Start 09/12/18 at 20:30; Stop 09/13/18 at 20:29 ; Status DC Metronidazole 100 ml @ 100 mls/hr Q8HRS IV Last administered on 09/20/18at 06: 30; Start 09/12/18 at 22:00; Stop 09/20/18 at 10:42; Status DC Ciprofloxacin/ Dextrose 200 ml @ 200 mls/hr 1X ONCE IV Last administered on 22:51; Start 09/12/18 at 20:30; Stop 09/12/18 at 21:29; Status DC Sodium Chloride 1,000 ml @ 75 mls/hr 1X ONCE IV Last administered on at 22:51; Start 09/12/18 at 20:30; Stop 09/13/18 at 09:49; Status DC Budesonide (Pulmicort) 0.5 mg RTBID NEB Last administered on 09/30/18at 06:50; Start 09/13/18 at 09:30 Albuterol/ Ipratropium (Duoneb) 3 ml RTQID NEB Last administered on 09/30/18at 06:51; Start 09/13/18 at 09:30 Methylprednisolone Sodium Succinate (SOLU-Medrol 40MG VIAL) 20 mg DAILY IV Last administered on 09/13/18at 10:21; Start 09/13/18 at 10:00; Stop 09/14/18 at 12:55; Status DC Pantoprazole Sodium (PROTONIX VIAL for IV PUSH) 40 mg DAILYAC IVP Last administered on 09/21/18at 06:34; Start 09/13/18 at 10:00; Stop 09/21/18 at 09:13 ; Status DC Enoxaparin Sodium (Lovenox 40mg Syringe) 40 mg Q24H SQ Last administered on at 09:02; Start 09/13/18 at 10:00 Metoprolol Tartrate (Lopressor Vial) 5 mg Q6HRS IVP Last administered on at 06:41; Start 09/13/18 at 14:00; Stop 09/19/18 at 11:39; Status DC Potassium Chloride/Water 100 ml @ 100 mls/hr Q1H IV Last administered on at 17:10; Start 09/13/18 at 14:00; Stop 09/13/18 at 17:59; Status DC Throat Lozenges (Chloraseptic) 1 spray PRN Q2HR PRN PO SORE THROAT, 2nd choice Last administered on 09/14/18at 13:47; Start 09/13/18 at 16:45 Throat Lozenges (Cepacol Sore Throat Lozenge) 1 deniz PRN Q2HRS PRN PO SORE THROAT, 1st choice Last administered on 09/14/18at 13:46; Start 09/13/18 at 16:45 Aspirin (Aspirin) 300 mg DAILY ND Last administered on 09/17/18at 11:25; Start 09/14/18 at 09:00; Stop 09/18/18 at 13:30; Status DC Morphine Sulfate (Morphine Sulfate) 4 mg PRN Q2HR PRN IV MODERATE PAIN, SEVERE PAIN Last administered on 09/18/18at 21:59; Start 09/13/18 at 21:15; Stop at 09:10; Status DC Barium Sulfate (E-Z-Hd) 680 gm 1X ONCE PO ; Start 09/14/18 at 08:00; Stop 09/14 at 08:01; Status DC Iohexol (Omnipaque 300 Mg/ml) 400 ml 1X ONCE PO Last administered on at 08:00; Start 09/14/18 at 08:00; Stop 09/14/18 at 08:01; Status DC Info (CONTRAST GIVEN -- Rx MONITORING) 1 each PRN DAILY PRN MC SEE COMMENTS; Start 09/14/18 at 08:00; Stop 09/16/18 at 07:59; Status DC Potassium Chloride/Water 100 ml @ 100 mls/hr Q1H IV ; Start 09/14/18 at 09:00; Stop 09/14/18 at 12:59; Status DC Methylprednisolone Sodium Succinate (SOLU-Medrol 125MG VIAL) 125 mg DAILY IV Last administered on 09/20/18at 09:01; Start 09/15/18 at 09:00; Stop 09/20/18 at 13:23; Status DC Info (Tpn Per Pharmacy) 1 each PRN DAILY PRN MC SEE COMMENTS Last administered on 09/14/18at 13:51; Start 09/14/18 at 13:30; Stop 09/14/18 at 14:27; Status DC Info (Tpn Per Pharmacy) 1 each PRN DAILY PRN MC SEE COMMENTS Last administered on 09/18/18at 09:54; Start 09/15/18 at 14:30; Stop 09/19/18 at 11:39; Status DC Amino Acids/ Glycerin/ Electrolytes 1,000 ml @ 80 mls/hr [id number] IV Last administered on 09/15/18at 03:32; Start 09/14/18 at 14:30; Stop 09/15/18 at 21:59 ; Status DC Cefazolin Sodium/ Dextrose 50 ml @ 100 mls/hr 1X PREOP PRN IV protocol Last administered on 09/14/18at 17:40; Start 09/15/18 at 06:00; Stop 09/15/18 at 18:00 ; Status DC Metronidazole 100 ml @ 100 mls/hr 1X PREOP PRN IV protocol; Start 09/15/18 at 06:00; Stop 09/15/18 at 18:00; Status DC Ondansetron HCl (Zofran) 4 mg PRN Q6HRS PRN IV NAUSEA/VOMITING; Start 09/14/18 at 16:00; Stop 09/15/18 at 01:45; Status DC Fentanyl Citrate (Fentanyl 2ml Vial) 25 mcg PRN Q5MIN PRN IV MILD PAIN; Start 09/14/18 at 16:00; Stop 09/15/18 at 01:40; Status DC Fentanyl Citrate (Fentanyl 2ml Vial) 50 mcg PRN Q5MIN PRN IV MODERATE TO SEVERE PAIN Last administered on 09/14/18at 20:27; Start 09/14/18 at 16:00; Stop 09/15/18 at 01:40; Status DC Morphine Sulfate (Morphine Sulfate) 1 mg PRN Q10MIN PRN IV SEVERE PAIN Last administered on 09/14/18at 21:51; Start 09/14/18 at 16:00; Stop 09/15/18 at 01:40 ; Status DC Ringer's Solution 1,000 ml @ 30 mls/hr Q24H IV Last administered on 09/14/18at 21:30; Start 09/14/18 at 15:52; Stop 09/15/18 at 01:40; Status DC Lidocaine HCl (Xylocaine-Mpf 1% 2ml Vial) 2 ml 1X PRN PRN ID IV START; Start at 16:00; Stop 09/15/18 at 15:59; Status DC Hydromorphone HCl (Dilaudid) 0.5 mg PRN Q10MIN PRN IV SEV PAIN, Second choice; Start 09/14/18 at 16:00; Stop 09/15/18 at 01:45; Status DC Prochlorperazine Edisylate (Compazine) 5 mg PACU PRN PRN IV NAUSEA, MRX1 Last administered on 09/14/18at 21:02; Start 09/14/18 at 16:00; Stop 09/15/18 at 01:40 ; Status DC Cefazolin Sodium/ Dextrose 50 ml @ As Directed STK-MED ONCE IV ; Start 09/14/18 at 16:08; Stop 09/14/18 at 16:09; Status DC Propofol 20 ml @ As Directed STK-MED ONCE IV ; Start 09/14/18 at 16:32; Stop 07/21 at 16:33; Status DC Dexamethasone Sodium Phosphate (Decadron) 20 mg STK-MED ONCE .ROUTE ; Start 07/21 at 16:32; Stop 09/14/18 at 16:33; Status DC Lidocaine HCl (Lidocaine Pf 2% Vial) 5 ml STK-MED ONCE .ROUTE ; Start 09/14/18 at 16:32; Stop 09/14/18 at 16:33; Status DC Ondansetron HCl (Zofran) 4 mg STK-MED ONCE .ROUTE ; Start 09/14/18 at 16:32; Stop 09/14/18 at 16:33; Status DC Succinylcholine Chloride (Anectine) 200 mg STK-MED ONCE .ROUTE ; Start 09/14/18 at 16:32; Stop 09/14/18 at 16:33; Status DC Rocuronium [place] (Zemuron) 50 mg STK-MED ONCE .ROUTE ; Start 09/14/18 at 16:32 ; Stop 09/14/18 at 16:33; Status DC Fentanyl Citrate (Fentanyl 2ml Vial) 100 mcg STK-MED ONCE .ROUTE ; Start at 16:32; Stop 09/14/18 at 16:33; Status DC Bupivacaine HCl/ Epinephrine Bitart (Sensorcain-Mpf Epi 0.5%-[id number]) 30 ml STK -MED ONCE .ROUTE Last administered on 09/14/18at 17:57; Start 09/14/18 at 17:18 ; Stop 09/14/18 at 17:19; Status DC Cefazolin Sodium/ Dextrose 50 ml @ As Directed STK-MED ONCE IV ; Start 09/14/18 at 17:28; Stop 09/14/18 at 17:29; Status DC Lidocaine HCl (Glydo (Lidocaine) Jelly) 6 marcel STK-MED ONCE .ROUTE ; Start at 17:43; Stop 09/14/18 at 17:44; Status DC Hydrocortisone Sodium Succinate (Solu-CORTEF) 100 mg STK-MED ONCE .ROUTE ; Start 09/14/18 at 18:08; Stop 09/14/18 at 18:09; Status DC Phenylephrine HCl (Shaw-Synephrine Inj) 10 mg STK-MED ONCE .ROUTE ; Start at 18:11; Stop 09/14/18 at 18:12; Status DC Glycopyrrolate (Robinul) 1 mg STK-MED ONCE .ROUTE ; Start 09/14/18 at 19:05; Stop 09/14/18 at 19:06; Status DC Sevoflurane (Ultane) 60 ml STK-MED ONCE IH ; Start 09/14/18 at 19:23; Stop 09/14 at 19:24; Status DC Enoxaparin Sodium (Lovenox 40mg Syringe) 30 mg Q24H SQ ; Start 09/14/18 at 19:45 ; Status UNV Sodium Chloride (Normal Saline Flush) 3 ml QSHIFT PRN IV AFTER MEDS AND BLOOD DRAWS; Start 09/14/18 at 19:45 Hydromorphone HCl 30 ml @ 0 mls/hr CONT PRN PRN IV PER PROTOCOL Last administered on 09/14/18at 20:25; Start 09/14/18 at 19:45; Stop 09/15/18 at 08:34 ; Status DC Ondansetron HCl (Zofran) 4 mg PRN Q6HRS PRN IV NAUESA, 1ST CHOICE Last administered on 09/28/18at 23:45; Start 09/14/18 at 19:45; Stop 09/30/18 at 11:07 ; Status DC Ringer's Solution 1,000 ml @ 75 mls/hr [id number] IV Last administered on at 21:00; Start 09/14/18 at 21:00; Stop 09/15/18 at 01:45; Status DC Lorazepam (Ativan) 0.5 mg PRN Q6HRS PRN IV ANXIETY / AGITATION Last administered on 09/29/18at 15:53; Start 09/14/18 at 22:15; Stop 09/30/18 at 11:07 ; Status DC Albumin Human 250 ml @ 83.3 mls/hr 1X ONCE IV Last administered on 09/15/18at 01:15; Start 09/15/18 at 01:00; Stop 09/15/18 at 04:00; Status DC Hydromorphone HCl (Dilaudid) 0.5 mg PRN Q3HRS PRN IV MILD PAIN Last administered on 09/30/18at 05:28; Start 09/15/18 at 08:30; Stop 09/30/18 at 11:07 ; Status DC Albumin Human 500 ml @ 125 mls/hr 1X ONCE IV Last administered on 09/15/18at 10:23; Start 09/15/18 at 09:00; Stop 09/15/18 at 12:59; Status DC Sodium Chloride 250 ml @ 500 mls/hr 1X ONCE IV Last administered on at 11:00; Start 09/15/18 at 11:00; Stop 09/15/18 at 11:29; Status DC Sodium Chloride 1,000 ml @ 100 mls/hr Q10H IV Last administered on 09/15/18at 11:30; Start 09/15/18 at 11:30; Stop 09/15/18 at 22:00; Status DC Sodium Chloride 1,000 ml @ 75 mls/hr [id number] IV Last administered on at 00:12; Start 09/15/18 at 22:00; Stop 09/17/18 at 12:12; Status DC Sodium Acetate 90 meq/Potassium Chloride 50 meq/ Potassium Phosphate 3.4 mmol/ Magnesium Sulfate 10 meq/ Calcium Gluconate 10 meq/ Multivitamins 10 ml/Chromium / Copper/Manganese/ Seleni/Zn 1 ml/ Total Parenteral Nutrition/Amino Acids/ Dextrose/ Fat Emulsion Intravenous 1,512 ml @ 63 mls/hr TPN CONT IV Last administered on 09/15/18at 21:43; Start 09/15/18 at 22:00; Stop 09/16/18 at 21:59 ; Status DC Lidocaine/Sodium Bicarbonate (Buffered Lidocaine 1%) 3 ml STK-MED ONCE .ROUTE ; Start 09/15/18 at 14:35; Stop 09/15/18 at 14:36; Status DC Heparin Sodium/ Sodium Chloride 500 ml @ As Directed STK-MED ONCE .ROUTE ; Start 09/15/18 at 14:35; Stop 09/15/18 at 14:36; Status DC Heparin Sodium/ Sodium Chloride 500 ml @ As Directed STK-MED ONCE .ROUTE ; Start 09/15/18 at 14:36; Stop 09/15/18 at 14:37; Status DC Heparin Sodium/ Sodium Chloride (HEPARIN for ARTERIAL LINE FLUSH) 1,000 unit 1X ONCE IART Last administered on 09/15/18at 15:15; Start 09/15/18 at 15:15; Stop 09/15/18 at 15:16; Status DC Lidocaine/Sodium Bicarbonate (Buffered Lidocaine 1%) 3 ml 1X ONCE IJ Last administered on 09/15/18at 15:15; Start 09/15/18 at 15:15; Stop 09/15/18 at 15:16 ; Status DC Potassium Phosphate 13.6 mmol/Dextrose 104.5333 ml @ 52.267 m... 1X ONCE IV Last administered on 09/16/18at 09:53; Start 09/16/18 at 10:00; Stop 09/16/18 at 11:59; Status DC Sodium Acetate 90 meq/Potassium Chloride 50 meq/ Potassium Phosphate 15 mmol/ Magnesium Sulfate 10 meq/Calcium Gluconate 10 meq/ Multivitamins 10 ml/Chromium / Copper/Manganese/ Seleni/Zn 1 ml/ Total Parenteral Nutrition/Amino Acids/ Dextrose/ Fat Emulsion Intravenous 1,512 ml @ 63 mls/hr TPN CONT IV Last administered on 09/16/18at 21:49; Start 09/16/18 at 22:00; Stop 09/17/18 at 21:59 ; Status DC Albuterol/ Ipratropium (Duoneb) 3 ml RTQID NEB ; Start 09/16/18 at 12:00; Stop 09/16/18 at 12:00; Status DC Sodium Chloride 1,000 ml @ 75 mls/hr [id number] IV Last administered on at 06:20; Start 09/17/18 at 13:00; Stop 09/19/18 at 11:39; Status DC Potassium Phosphate 13.6 mmol/Dextrose 104.5333 ml @ 52.267 m... ONCE ONCE IV Last administered on 09/17/18at 14:14; Start 09/17/18 at 13:00; Stop 09/17/18 at 14:59; Status DC Sodium Acetate 90 meq/Potassium Acetate 40 meq/ Potassium Phosphate 20.4 mmol/ Magnesium Sulfate 10 meq/ Calcium Gluconate 10 meq/ Multivitamins 10 ml/Chromium / Copper/Manganese/ Seleni/Zn 1 ml/ Total Parenteral Nutrition/Amino Acids/ Dextrose/ Fat Emulsion Intravenous 1,512 ml @ 63 mls/hr TPN CONT IV Last administered on 09/17/18at 23:14; Start 09/17/18 at 22:00; Stop 09/18/18 at 21:59 ; Status DC Sodium Acetate 90 meq/Potassium Acetate 40 meq/ Potassium Phosphate 20.4 mmol/ Magnesium Sulfate 10 meq/ Calcium Gluconate 10 meq/ Multivitamins 10 ml/Chromium / Copper/Manganese/ Seleni/Zn 1 ml/ Total Parenteral Nutrition/Amino Acids/ Dextrose/ Fat Emulsion Intravenous 1,512 ml @ 63 mls/hr TPN CONT IV Last administered on 09/18/18 21:51; Start 09/18/18 at 22:00; Stop 09/19/18 at 11:39 ; Status DC Aspirin (Ecotrin) 325 mg [id number] PO Last administered on 09/30/18 09:03; Start 09/18/18 at 13:30 Acetaminophen/ Hydrocodone Bitart (Lortab 10/325) 1 tab PRN Q6HRS PRN PO PAIN Last administered on 09/30/18 09:20; Start 09/19/18 at 10:15; Stop 09/30/18 at 11:07; Status DC Levothyroxine Sodium (Synthroid) 88 mcg DAILY06 PO Last administered on 05:27; Start 09/19/18 at 15:30 Diltiazem HCl (Cardizem 24hr ) 120 mg DAILY PO Last administered on 08:56; Start 09/19/18 at 12:00 Info (Tpn Per Pharmacy) 1 each PRN DAILY PRN MC SEE COMMENTS Last administered on 09/29/18at 15:00; Start 09/20/18 at 11:30 Sodium Acetate 90 meq/Potassium Acetate 40 meq/ Potassium Phosphate 20.4 mmol/ Magnesium Sulfate 10 meq/ Calcium Gluconate 10 meq/ Multivitamins 10 ml/Chromium / Copper/Manganese/ Seleni/Zn 1 ml/ Total Parenteral Nutrition/Amino Acids/ Dextrose/ Fat Emulsion Intravenous 1,512 ml @ 63 mls/hr TPN CONT IV Last administered on 09/20/18 21:23; Start 09/20/18 at 22:00; Stop 09/21/18 at 21:59 ; Status DC Methylprednisolone Sodium Succinate (SOLU-Medrol 125MG VIAL) 60 mg DAILY IV ; Start 09/21/18 at 09:00; Stop 09/21/18 at 09:10; Status DC Insulin Human Lispro (HumaLOG) 0-5 UNITS TIDWMEALS SQ ; Start 09/21/18 at 08:00 ; Stop 09/21/18 at 09:08; Status DC Dextrose (Dextrose 50%-Water Syringe) 12.5 gm PRN Q15MIN PRN IV SEE COMMENTS Last administered on 09/27/18at 21:40; Start 09/21/18 at 00:00 Insulin Human Lispro (HumaLOG) 0-12 UNITS QIDACHS SQ Last administered on at 17:14; Start 09/21/18 at 11:30 Prednisone (Prednisone) 40 mg DAILY PO Last administered on 09/22/18at 08:44; Start 09/21/18 at 10:00; Stop 09/24/18 at 09:22; Status DC Pantoprazole Sodium (Protonix) 40 mg DAILYAC PO Last administered on 09/22/18at 07:01; Start 09/22/18 at 07:30; Stop 09/24/18 at 09:21; Status DC Sodium Acetate 90 meq/Potassium Acetate 40 meq/ Potassium Phosphate 20.4 mmol/ Magnesium Sulfate 10 meq/ Calcium Gluconate 10 meq/ Multivitamins 10 ml/Chromium / Copper/Manganese/ Seleni/Zn 1 ml/ Total Parenteral Nutrition/Amino Acids/ Dextrose/ Fat Emulsion Intravenous 1,512 ml @ 63 mls/hr TPN CONT IV Last administered on 09/21/18at 21:07; Start 09/21/18 at 22:00; Stop 09/22/18 at 21:59 ; Status DC Sertraline HCl (Zoloft) 25 mg QHS PO Last administered on 09/29/18at 20:43; Start 09/21/18 at 21:00; Stop 09/30/18 at 11:07; Status DC Sodium Acetate 90 meq/Potassium Acetate 40 meq/ Potassium Phosphate 20.4 mmol/ Magnesium Sulfate 10 meq/ Calcium Gluconate 10 meq/ Multivitamins 10 ml/Chromium / Copper/Manganese/ Seleni/Zn 1 ml/ Total Parenteral Nutrition/Amino Acids/ Dextrose/ Fat Emulsion Intravenous 1,512 ml @ 63 mls/hr TPN CONT IV Last administered on 09/22/18at 21:11; Start 09/22/18 at 22:00; Stop 09/23/18 at 21:59 ; Status DC Sodium Acetate 90 meq/Potassium Acetate 40 meq/ Potassium Phosphate 20.4 mmol/ Magnesium Sulfate 10 meq/ Calcium Gluconate 10 meq/ Multivitamins 10 ml/Chromium / Copper/Manganese/ Seleni/Zn 1 ml/ Insulin Human Regular 10 unit/ Total Parenteral Nutrition/Amino Acids/Dextrose/ Fat Emuls... 1,512 ml @ 63 mls/hr TPN CONT IV Last administered on 09/23/18at 21:22; Start 09/23/18 at 22:00; Stop 09/24/18 at 21:59; Status DC Insulin Human Lispro (HumaLOG) 5 units Q6HRS SQ Last administered on 09/28/18at 17:53; Start 09/23/18 at 18:00; Stop 09/28/18 at 19:19; Status DC Pantoprazole Sodium (PROTONIX VIAL for IV PUSH) 40 mg 1X ONCE IVP Last administered on 09/23/18at 13:03; Start 09/23/18 at 12:30; Stop 09/23/18 at 12:31 ; Status DC Methylprednisolone Sodium Succinate (SOLU-Medrol 40MG VIAL) 40 mg 1X ONCE IV Last administered on 09/23/18at 13:03; Start 09/23/18 at 12:30; Stop 09/23/18 at 12:31; Status DC Pantoprazole Sodium (PROTONIX VIAL for IV PUSH) 40 mg 1X ONCE IVP Last administered on 09/24/18at 09:07; Start 09/24/18 at 08:00; Stop 09/24/18 at 08:02 ; Status DC Methylprednisolone Sodium Succinate (SOLU-Medrol 40MG VIAL) 40 mg DAILY IV Last administered on 09/25/18at 08:01; Start 09/24/18 at 10:00; Stop 09/25/18 at 10:07; Status DC Pantoprazole Sodium (PROTONIX VIAL for IV PUSH) 40 mg DAILYAC IVP Last administered on 09/27/18at 07:58; Start 09/24/18 at 10:00; Stop 09/27/18 at 15:37 ; Status DC Sodium Acetate 90 meq/Potassium Chloride 20 meq/ Potassium Phosphate 20.4 mmol/ Magnesium Sulfate 10 meq/ Calcium Gluconate 10 meq/ Multivitamins 10 ml/Chromium / Copper/Manganese/ Seleni/Zn 1 ml/ Insulin Human Regular 10 unit/ Total Parenteral Nutrition/Amino Acids/Dextrose/ Fat Emuls... 1,512 ml @ 63 mls/hr TPN CONT IV Last administered on 09/24/18at 21:32; Start 09/24/18 at 22:00; Stop 09/25/18 at 21:59; Status DC Iohexol (Omnipaque 300 Mg/ml) 75 ml 1X ONCE IV Last administered on 09/24/18at 20:50; Start 09/24/18 at 19:00; Stop 09/24/18 at 19:01; Status DC Info (CONTRAST GIVEN -- Rx MONITORING) 1 each PRN DAILY PRN MC SEE COMMENTS; Start 09/24/18 at 19:15; Stop 09/26/18 at 19:14; Status DC Iohexol (Omnipaque 240 Mg/ml) 30 ml 1X ONCE PO Last administered on 09/25/18at 09:00; Start 09/25/18 at 09:00; Stop 09/25/18 at 09:01; Status DC Iohexol (Omnipaque 300 Mg/ml) 75 ml 1X ONCE IV Last administered on 09/25/18at 09:00; Start 09/25/18 at 09:00; Stop 09/25/18 at 09:01; Status DC Info (CONTRAST GIVEN -- Rx MONITORING) 1 each PRN DAILY PRN MC SEE COMMENTS; Start 09/25/18 at 09:00; Stop 09/27/18 at 08:59; Status DC Methylprednisolone Sodium Succinate (SOLU-Medrol 40MG VIAL) 20 mg DAILY IV Last administered on 09/30/18at 09:03; Start 09/26/18 at 09:00; Stop 09/30/18 at 11:07; Status DC Sodium Acetate 90 meq/Potassium Chloride 20 meq/ Potassium Phosphate 20.4 mmol/ Magnesium Sulfate 10 meq/ Calcium Gluconate 10 meq/ Multivitamins 10 ml/Chromium / Copper/Manganese/ Seleni/Zn 1 ml/ Insulin Human Regular 10 unit/ Total Parenteral Nutrition/Amino Acids/Dextrose/ Fat Emuls... 1,512 ml @ 63 mls/hr TPN CONT IV Last administered on 09/25/18at 21:45; Start 09/25/18 at 22:00; Stop 09/26/18 at 21:59; Status DC Sodium Chloride 60 meq/Sodium Acetate 30 meq/ Potassium Chloride 20 meq/ Potassium Phosphate 20.4 mmol/Magnesium Sulfate 10 meq/ Calcium Gluconate 10 meq / Multivitamins 10 ml/Chromium/ Copper/Manganese/ Seleni/Zn 1 ml/ Insulin Human Regular 10 unit/ Total Parenteral Nutrition/Am... 1,512 ml @ 63 mls/hr TPN CONT IV Last administered on 09/26/18at 21:52; Start 09/26/18 at 22:00; Stop at 21:59; Status DC Sodium Chloride 60 meq/Sodium Acetate 30 meq/ Potassium Chloride 20 meq/ Potassium Phosphate 20.4 mmol/Magnesium Sulfate 10 meq/ Calcium Gluconate 10 meq / Multivitamins 10 ml/Chromium/ Copper/Manganese/ Seleni/Zn 1 ml/ Insulin Human Regular 10 unit/ Total Parenteral Nutrition/Am... 1,512 ml @ 63 mls/hr TPN CONT IV Last administered on 09/27/18at 21:27; Start 09/27/18 at 22:00; Stop at 21:59; Status DC Pantoprazole Sodium (Protonix) 40 mg DAILYAC PO Last administered on 09/30/18at 09:03; Start 09/28/18 at 07:30 Sodium Chloride 80 meq/Sodium Acetate 30 meq/ Potassium Chloride 20 meq/ Potassium Phosphate 20.4 mmol/Magnesium Sulfate 10 meq/ Calcium Gluconate 10 meq / Multivitamins 10 ml/Chromium/ Copper/Manganese/ Seleni/Zn 1 ml/ Insulin Human Regular 10 unit/ Total Parenteral Nutrition/Am... 1,512 ml @ 63 mls/hr TPN CONT IV Last administered on 09/28/18at 22:05; Start 09/28/18 at 22:00; Stop at 21:59; Status DC Docusate Sodium (Colace) 100 mg BID PO Last administered on 09/30/18at 09:03; Start 09/28/18 at 21:00 Sodium Chloride 80 meq/Sodium Acetate 30 meq/ Potassium Chloride 20 meq/ Potassium Phosphate 20.4 mmol/Magnesium Sulfate 10 meq/ Calcium Gluconate 10 meq / Multivitamins 10 ml/Chromium/ Copper/Manganese/ Seleni/Zn 1 ml/ Insulin Human Regular 10 unit/ Total Parenteral Nutrition/Am... 1,512 ml @ 63 mls/hr TPN CONT IV Last administered on 09/29/18at 22:05; Start 09/29/18 at 22:00; Stop at 21:59 Acetaminophen/ Hydrocodone Bitart (Lortab 10/325) 2 tab PRN Q6HRS PRN PO PAIN; Start 09/30/18 at 11:15; Status UNV Sertraline HCl (Zoloft) 50 mg QHS PO ; Start 09/30/18 at 21:00; Status UNV Alprazolam (Xanax) 0.25 mg PRN Q8HRS PRN PO ANXIETY / AGITATION; Start at 11:15; Status UNV Ondansetron HCl (Zofran Odt) 4 mg Q4DAYS PRN PO NAUSEA/VOMITING; Start at 11:15; Status UNV Active Scripts Active Magnesium Chloride 70 Mg Tablet.dr 64 Mg PO DAILY 30 Days Synthroid (Levothyroxine Sodium) 88 Mcg Tablet 88 Mcg PO DAILY06 30 Days Prednisone 20 Mg Tablet 20 Mg PO DAILY 30 Days Budesonide 0.5 Mg/2 Ml Ampul.neb 0.5 Mg NEB RTBID 30 Days Diltiazem 24HR Cd (Diltiazem Hcl) 180 Mg Cap.er.24h 180 Mg PO DAILY 90 Days Prednisone (Prednisone) 10 Mg Tablet 40 Mg PO DAILY 30 Days Klor-Con 10 (Potassium Chloride) 10 Meq Tablet.er 1 Tab PO DAILY Lasix (Furosemide) 40 Mg Tablet 1 Tab PO DAILY Aspirin Ec (Aspirin) 81 Mg Tablet. 81 Mg PO DAILYWBKFT 30 Days Duoneb 0.5-3(2.5) Mg/3 Ml (Albuterol/Ipratropium) 3 Ml Ampul.neb 3 Ml NEB RTQID 30 Days Diltiazem 24HR Cd (Diltiazem Hcl) 120 Mg Cap.er.24h 120 Mg PO DAILY 30 Days Reported Hydrocodone-Apap 7.5-325 (Hydrocodone Bit/Acetaminophen) 1 Tab Tablet 1 Tab PO PRN Q6HRS PRN Prednisolone Sodium Phosphate (Prednisolone Sod Phosphate) 15 Mg/5 Ml Solution 15 Mg PO DAILY Omeprazole 40 Mg Capsule. 40 Mg PO DAILY Cartia Xt (Diltiazem Hcl) 120 Mg Cap.er.24h 120 Mg PO DAILY Wellbutrin Xl (Bupropion Hcl) 150 Mg Tab.er.24h 1 Tab PO DAILY Omeprazole 40 Mg Capsule. 1 Cap PO Vitals/I & O Vital Sign - Last 24 Hours 09/29/18 09/29/18 09/29/18 09/29/18 14:10 15:00 15:04 19:00 Temp 97.7 98.5 97.7 98.5 Pulse 62 64 Resp 18 18 18 B/P (MAP) 100/61 (74) 126/70 (88) Pulse Ox 100 90 O2 Delivery Nasal Cannula Nasal Cannula Nasal Cannula Nasal Cannula O2 Flow Rate 3.0 3.0 3.0 3.0 09/29/18 09/29/18 09/29/18 09/29/18 20:23 20:30 20:44 23:00 Temp 98.4 98.4 Pulse 66 Resp 16 16 B/P (MAP) 106/54 (71) Pulse Ox 93 93 95 O2 Delivery Nasal Cannula Nasal Cannula Nasal Cannula Nasal Cannula O2 Flow Rate 3.0 3.0 3.0 3.0 09/30/18 09/30/18 09/30/18 09/30/18 03:00 05:28 05:59 06:51 Temp 98.0 98.0 Pulse 66 Resp 18 16 18 B/P (MAP) 105/65 (78) Pulse Ox 100 100 100 100 O2 Delivery Nasal Cannula Nasal Cannula Nasal Cannula Nasal Cannula O2 Flow Rate 3.0 2.0 2.0 3.0 09/30/18 09/30/18 09/30/18 07:00 09:00 09:20 Temp 97.9 97.9 Pulse 65 65 Resp 18 B/P (MAP) 100/59 (73) 100/59 Pulse Ox 96 O2 Delivery Nasal Cannula Nasal Cannula O2 Flow Rate 3.0 3.0 Intake and Output 09/29/18 09/29/18 09/30/18 15:00 23:00 07:00 Output Total 150 ml 200 ml Balance -150 ml -200 ml Nutrition Consultation Dietary Evaluation: Recommendations by RD: PPN/TPN Comments: REC continue TPN per followin grams dextrose, 65 grams AA, 20 grams lipid advance diet when able Expected Outcomes/Goals: TPN for nutrition needs s/p abdominal surgery until po intake tolerated w/ solid foods Interpretation of weight loss: >5% in 1 month Malnutrition Findings: Food and Nutrition Intake (Sev: <50% est energy req 5days Weight Status: Underweight LOURDES POLLOCK MD Sep 30, 2018 11:13
[2018-09-30] MEDS ORDERED: ALPRAZolam 0.25 MG TABLET PO PRN (11:15)
[2018-09-30] MEDS ORDERED: ONDANSETRON ODT 4 MG TAB.RAPDIS. PO PRN (11:15)
--- NOTE | 2018-09-30 12:09 | NUR ---
SW following for discharge planning. Discussed with RN, attempting to wean off TPN today. Pt on full liquid diet. Possible discharge tomorrow (10/01/18) to [facility]. SW will continue to follow.
--- NOTE | 2018-09-30 15:38 | NUR ---
SW following. Discussed with RN, pt is no longer needing TPN. Transfer to [facility] tomorrow (10/01/18). Med list will need to be finalized before writing and signing the discharge instructions. SW will continue to follow.
--- NOTE | 2018-09-30 20:50 | NUR ---
Pt heard calling for help and found on floor next to bed. Pt noted to have a bloody nose, stating "I bumped it on the chair", pt c/o no other injuries and upon assessment no other visible injuries noted. Pt remains A&Ox3, BP elevated and when asked what happened pt states, "I used the urinal and I was going to go empty it in the bathroom, I got dizzy when I stood up". Pt educated on safety measures and the importance to call for assistance. Bed alarm activated and call light within reach, will continue to monitor. Nursing cold rolling supervisor notified and Dr. Suleman rivera, no orders rcvd. at this time.
[2018-09-30] MEDS ORDERED: SERTRALINE 25 MG TABLET. PO SCH (21:00)
[2018-10-01 03:08] VITALS: BP 139/86
[2018-10-01] MEDS: PANTOPRAZOLE 40 MG TABLET.DR. PO SCH (06:04)
[2018-10-01] MEDS: LEVOTHYROXINE 88 MCG TABLET PO SCH (06:04)
[2018-10-01 07:00] VITALS: BP 102/66
[2018-10-01] MEDS: IPRATRPIUM/ALBUTEROL 0.5/2.5MG 3 ML NEBU. NEB SCH ×2 (07:17→11:23)
[2018-10-01] MEDS: BUDESONIDE 0.5 MG/2 ML NEBU. NEB SCH (07:17)
[2018-10-01] MEDS: INSULIN LISPRO 300 UNITS/3 ML INSULN.PEN. SQ SCH ×2 (07:30→12:18)
[2018-10-01] MEDS ORDERED: predniSONE 10 MG TABLET PO SCH (09:00)
--- NOTE | 2018-10-01 09:22 | PDOC ---
PULMONARY PROGRESS NOTES Subjective EATING NOT MORE SOA Vitals Vital Signs Date Time Temp Pulse Resp B/P (MAP) Pulse Ox O2 Delivery O2 Flow Rate FiO2 10/01/18 07:18 100 Nasal Cannula 3.0 10/01/18 07:00 98.3 88 18 102/66 (78) 98.3 ROS: No Chest Pain General: Alert, No acute distress HEENT: Other (nc at perrl) Lungs: Crackles (BASES) Cardiovascular: S1, S2 Abdomen: Soft, Non-tender, Other (distended) Neuro Exam: Alert, Oriented Extremities: No Edema, Other Skin: Warm Labs Laboratory Tests Test 09/29/18 11:26 09/29/18 16:32 09/29/18 20:35 09/30/18 05:50 Glucose (Fingerstick) 187 mg/dL (70-99) 223 mg/dL (70-99) 155 mg/dL (70-99) Sodium Level 138 mmol/L (136-145) Potassium Level 4.2 mmol/L (3.5-5.1) Chloride Level 102 mmol/L (98-107) Carbon Dioxide Level 31 mmol/L (21-32) Anion Gap 5 (6-14) Blood Urea Nitrogen 17 mg/dL (8-26) Creatinine 0.5 mg/dL (0.7-1.3) Estimated GFR (Cockcroft-Gault) 161.7 Glucose Level 118 mg/dL (70-99) Calcium Level 7.8 mg/dL (8.5-10.1) Phosphorus Level 3.0 mg/dL (2.6-4.7) Magnesium Level 2.0 mg/dL (1.8-2.4) Test 09/30/18 07:28 09/30/18 11:37 09/30/18 16:46 09/30/18 21:12 Glucose (Fingerstick) 129 mg/dL (70-99) 168 mg/dL (70-99) 196 mg/dL (70-99) 94 mg/dL (70-99) Laboratory Tests Test 09/30/18 11:37 09/30/18 16:46 09/30/18 21:12 Glucose (Fingerstick) 168 mg/dL (70-99) 196 mg/dL (70-99) 94 mg/dL (70-99) Medications Active Scripts Medications Dose Route/Sig Max Daily Dose Days Date Category Magnesium Chloride 70 Mg Tablet. 64 Mg PO DAILY 30 08/30/18 Rx Synthroid (Levothyroxine Sodium) 88 Mcg Tablet 88 Mcg PO DAILY06 30 08/30/18 Rx Prednisone 20 Mg Tablet 20 Mg PO DAILY 30 08/30/18 Rx Budesonide 0.5 Mg/2 Ml Ampul.neb 0.5 Mg NEB RTBID 30 08/30/18 Rx Diltiazem 24HR Cd (Diltiazem Hcl) 180 Mg Cap.er.24h 180 Mg PO DAILY 90 08/30/18 Rx Hydrocodone-Apap 7.5-325 (Hydrocodone Bit/Acetaminophen) 1 Tab Tablet 1 Tab PO PRN Q6HRS PRN 08/26/18 Reported Prednisolone Sodium Phosphate (Prednisolone Sod Phosphate) 15 Mg/5 Ml Solution 15 Mg PO DAILY 08/26/18 Reported Omeprazole 40 Mg Capsule. 40 Mg PO DAILY 08/26/18 Reported Cartia Xt (Diltiazem Hcl) 120 Mg Cap.er.24h 120 Mg PO DAILY 08/26/18 Reported Prednisone (Prednisone) 10 Mg Tablet 40 Mg PO DAILY 30 07/16/18 Rx Klor-Con 10 (Potassium Chloride) 10 Meq Tablet.er 1 Tab PO DAILY 07/16/18 Rx Lasix (Furosemide) 40 Mg Tablet 1 Tab PO DAILY 07/16/18 Rx Aspirin Ec (Aspirin) 81 Mg Tablet. 81 Mg PO DAILYWBKFT 30 07/16/18 Rx Duoneb 0.5-3(2.5) Mg/3 Ml (Albuterol/Ipratropium) 3 Ml Ampul.neb 3 Ml NEB RTQID 30 07/01/18 Rx Diltiazem 24HR Cd (Diltiazem Hcl) 120 Mg Cap.er.24h 120 Mg PO DAILY 30 07/01/18 Rx Wellbutrin Xl (Bupropion Hcl) 150 Mg Tab.er.24h 1 Tab PO DAILY 06/30/18 Reported Omeprazole 40 Mg Capsule. 1 Cap PO 10/25/[address] Comments reviewed ct of abd 09/25 1. Bibasilar consolidation in the lungs may be secondary to atelectasis or pneumonia superimposed on interstitial lung disease. 2. Dilated jejunal loop may be secondary to ileus or obstruction. Findings not significant changed when compared to previous exam. 3. Stable segment 7 liver lesion, nonspecific but has been present since July 2017 and most likely a benign entity given interval stability. Impression . IMPRESSION: 1. Chronic hypoxic respiratory failure. 2. Pulmonary fibrosis.ON CHRONIC STEROIDS 3. Small-bowel obstruction. S/P SURGERY 4. Bibasilar consolidation, atelectasis vs infilt will monitor PREOPERATIVE DIAGNOSIS: Small bowel obstruction. POSTOPERATIVE DIAGNOSIS: Small bowel obstruction, secondary to adhesive band. PROCEDURE: Diagnostic laparoscopy, followed by laparotomy with release of small-bowel obstruction and decompression of the small bowel. Plan . PT/OT DIET PER SURGERY O2 NEB STEROIDS JON EDWARDS MD Oct 01, 2018 09:22
[2018-10-01] MEDS: ASPIRIN ENTERIC COATED 325 MG TABLET.DR. PO SCH (09:27)
[2018-10-01] MEDS: DOCUSATE SODIUM 100 MG CAPSULE. PO SCH (09:27)
[2018-10-01] MEDS: ENOXAPARIN 40 MG/0.4 ML SYRINGE. SQ SCH (09:28)
--- NOTE | 2018-10-01 10:08 | NUR ---
SW following. Discussed with RN, pt is ready to discharge to [facility] [place]. SW set up transportation for 1500 pending discharge paperwork completed correctly. SW met with pt to advise of discharge time. SW will continue to follow.
[2018-10-01] MEDS ORDERED: SERT25TA4 PO (10:11)
--- NOTE | 2018-10-01 10:12 | DISCH ---
DISCHARGE DISCHARGE INFORMATION: FINAL DIAGNOSIS Problems Medical Problems: (1) Generalized weakness Status: Acute CONDITION ON DISCHARGE: Stable CODE STATUS: Code Status: Full USP: SNF STAY <30 DAYS: Yes POST DISCHARGE ORDERS: ACTIVITY ORDERS: Activity as tolerated WEIGHT BEARING STATUS: As tolerated DIET AFTER DISCHARGE: Cardiac CHECKS AFTER DISCHARGE: CHECKS AFTER DISCHARGE: Check blood press - daily TREATMENT/EQUIPMENT ORDERS: ADAPTIVE EQUIPMENT NEEDED: None RESPIRATORY EQUIPMENT NEEDED: Oxygen, Nebulizer Physical Therapy For: Evalulation/Treatment Occupational Therapy For: Evaluation/Treatment DISCHARGE MEDICATIONS: Home Meds Active Scripts Sertraline Hcl (SERTRALINE HCL) 25 Mg Tablet, 50 MG PO QHS for depression for 30 Days, #60 TAB Prov:LOURDES POLLOCK MD 10/01/18 Magnesium Chloride (Magnesium Chloride) 70 Mg Tablet.dr, 64 MG PO DAILY for SVT for 30 Days, #30 TAB.SR 3 Refills Prov:LOURDES POLLOCK MD 08/30/18 Levothyroxine Sodium (SYNTHROID) 88 Mcg Tablet, 88 MCG PO DAILY06 for low thyroid for 30 Days, #30 TAB 3 Refills Prov:LOURDES POLLOCK MD 08/30/18 Prednisone (PREDNISONE) 20 Mg Tablet, 20 MG PO DAILY for IPF for 30 Days, #30 TAB 3 Refills Prov:LOURDES POLLOCK MD 08/30/18 Budesonide (BUDESONIDE) 0.5 Mg/2 Ml Ampul.neb, 0.5 MG NEB RTBID for copd for 30 Days, #60 EACH 3 Refills Prov:LOURDES POLLOCK MD 08/30/18 Potassium Chloride (KLOR-CON 10) 10 Meq Tablet.er, 1 TAB PO DAILY for chf, #30 TAB 5 Refills Prov:LOURDES POLLOCK MD 07/16/18 Furosemide (LASIX) 40 Mg Tablet, 1 TAB PO DAILY for chf, #30 TAB 5 Refills Prov:LOURDES POLLOCK MD 07/16/18 Aspirin (ASPIRIN EC) 81 Mg Tablet.dr, 81 MG PO DAILYWBKFT for afib for 30 Days, #30 TAB.SR Prov:LOURDES POLLOCK MD 07/16/18 Ipratropium/Albuterol Sulfate (DUONEB 0.5-3(2.5) MG/3 ML) 3 Ml Ampul.neb, 3 ML NEB RTQID for breathing for 30 Days, #120 EACH Prov:Steve DALTON MD 07/01/18 Diltiazem Hcl (DILTIAZEM 24HR CD) 120 Mg Cap.er.24h, 120 MG PO DAILY for afib for 30 Days, #30 CAP.SR 6 Refills Prov:Steve DALTON MD 07/01/18 Reported Medications Hydrocodone Bit/Acetaminophen (HYDROCODONE-APAP 7.5-325 ) 1 Tab Tablet, 1 TAB PO PRN Q6HRS PRN for PAIN, TAB 0 Refills 08/26/18 Omeprazole (OMEPRAZOLE) 40 Mg Capsule.dr, 40 MG PO DAILY for GERD, CAP 08/26/18 Discontinued Reported Medications Prednisolone Sod Phosphate (PREDNISOLONE SODIUM PHOSPHATE) 15 Mg/5 Ml Solution, 15 MG PO DAILY for COPD, MISC 08/26/18 Diltiazem Hcl (CARTIA XT) 120 Mg Cap.er.24h, 120 MG PO DAILY for HEART, CAP.SR 08/26/18 Bupropion Hcl (WELLBUTRIN XL) 150 Mg Tab.er.24h, 1 TAB PO DAILY, #30 TAB 06/30/18 Omeprazole (OMEPRAZOLE) 40 Mg Capsule.dr, 1 CAP PO, #90 CAP 3 Refills 10/25/14 Discontinued Scripts Diltiazem Hcl (DILTIAZEM 24HR CD) 180 Mg Cap.er.24h, 180 MG PO DAILY for 3 for 90 Days, #90 CAP.SR Prov:LOURDES POLLOCK MD 08/30/18 Prednisone (PREDNISONE ) 10 Mg Tablet, 40 MG PO DAILY for copd for 30 Days, # 120 TAB 2 Refills Prov:LOURDES POLLOCK MD 07/16/18 LOURDES POLLOCK MD Oct 01, 2018 10:12
--- NOTE | 2018-10-01 10:44 | PDOC ---
SURGICAL PROGRESS NOTE Subjective taking some PO, having mashed potatoes for lunch Vital Signs Vital Signs Date Time Temp Pulse Resp B/P (MAP) Pulse Ox O2 Delivery O2 Flow Rate FiO2 10/01/18 09:27 88 102/66 10/01/18 07:18 100 Nasal Cannula 3.0 10/01/18 07:00 98.3 18 98.3 I&O Intake and Output 10/01/18 07:00 Intake Total 560 ml Output Total 550 ml Balance 10 ml Intake Oral 560 ml Output Urine Total 550 ml # Voids 2 # Bowel Movements 1 General: Alert, Oriented X3, Cooperative, No acute distress Abdomen: Soft, Other (incision healing) Labs Laboratory Tests Test 09/29/18 11:26 09/29/18 16:32 09/29/18 20:35 09/30/18 05:50 Glucose (Fingerstick) 187 mg/dL (70-99) 223 mg/dL (70-99) 155 mg/dL (70-99) Sodium Level 138 mmol/L (136-145) Potassium Level 4.2 mmol/L (3.5-5.1) Chloride Level 102 mmol/L (98-107) Carbon Dioxide Level 31 mmol/L (21-32) Anion Gap 5 (6-14) Blood Urea Nitrogen 17 mg/dL (8-26) Creatinine 0.5 mg/dL (0.7-1.3) Estimated GFR (Cockcroft-Gault) 161.7 Glucose Level 118 mg/dL (70-99) Calcium Level 7.8 mg/dL (8.5-10.1) Phosphorus Level 3.0 mg/dL (2.6-4.7) Magnesium Level 2.0 mg/dL (1.8-2.4) Test 09/30/18 07:28 09/30/18 11:37 09/30/18 16:46 09/30/18 21:12 Glucose (Fingerstick) 129 mg/dL (70-99) 168 mg/dL (70-99) 196 mg/dL (70-99) 94 mg/dL (70-99) Laboratory Tests Test 09/30/18 11:37 09/30/18 16:46 09/30/18 21:12 Glucose (Fingerstick) 168 mg/dL (70-99) 196 mg/dL (70-99) 94 mg/dL (70-99) Problem List Problems Medical Problems: (1) Generalized weakness Status: Acute Assessment/Plan plans for PP today dc every other staple prior to discharge REMBERTO WINSTON APRN Oct 01, 2018 10:44
[2018-10-01 11:00] VITALS: BP 105/52
--- NOTE | 2018-10-01 15:10 | NUR ---
Pt discharged to PP by w/alejandra bertrand. Report given to RN at PP. Dr Bone removed several mya from incision and applied clean dressing. PICC removed prior to discharge, occlusive dressing applied. Pt denied pain or discomfort upon discharge.
--- NOTE | 2018-10-01 21:36 | DS ---
DATE OF DISCHARGE: 10/01/2018 ADMITTING DIAGNOSIS: Small-bowel obstruction. DISMISSAL DIAGNOSIS: Small-bowel obstruction. SECONDARY DIAGNOSES: 1. Ileus. 2. Pulmonary fibrosis. 3. Chronic obstructive pulmonary disease. 4. Supraventricular tachycardia. 5. Hypertension. 6. Osteoarthritis. 7. Reflux disease. 8. Hypothyroidism. 9. Benign prostatic hypertrophy. 10. [id number] diastolic congestive heart failure. 11. Severe protein malnutrition. 12. History of prostate cancer. 13. History of hepatitis C with cirrhosis without curative treatment to this point. 14. Major depression. HISTORY OF PRESENT ILLNESS AND HOSPITAL COURSE: This patient is a 78-year-old male with history of pulmonary fibrosis and SVT, came to the hospital with increasing nausea and vomiting, found to have a small-bowel obstruction. He underwent NG tube decompression but failed to improve and therefore was taken to surgery to decompress small-bowel obstruction. This was done without difficulty and the patient had a relatively uncomplicated postoperative course and began tolerating diet but during her diet advancement, the patient again became bloated and started having nausea with signs of ileus. Diet was decreased to n.p.o. status and the patient was started on TPN. Despite conservative management, the patient had a protracted ileus, which did improve prior to discharge where he was having bowel movements and passing gas and tolerating a soft diet. Therefore, plans to discharge the patient to assisted were made. The patient was markedly debilitated and not able to care for himself. Therefore, PT and OT were recommended. DISCHARGE MEDICATIONS: He was discharged on 10/01/2018 on the following medications: Zoloft 50 mg daily, aspirin 81 mg daily, Pulmicort nebulizer treatments b.i.d., diltiazem 120 mg daily, Lasix 40 mg daily, hydrocodone 7.5 q. 6 hours p.r.n., DuoNeb nebulizer treatments q. 6, levothyroxine 88 mcg daily, magnesium in the form of Slow-Mag 64 mg daily, Prilosec 40 mg daily, potassium 10 mEq daily and prednisone 20 mg daily. DISCHARGE DISPOSITION: The patient will be followed at assisted for continued care. LOURDES POLLOCK MD DR: ABRAHAM/ralph JOB#: [id number] / [id number]
== END 2018-10-01 15:10 | DRG 329 ==
LOC: ER 17:21 → 5 NORTH 20:14 → 1 WEST ICU 09-14 22:50 → 4 NORTH 09-16 22:50
PROVIDERS: ADMIT Family Medicine; ATTEND Family Medicine
PROC: 0WJG4ZZ Inspection of Peritoneal Cavity, Percutaneous Endoscopic Approach (ICD-10-PCS; 2018-09-14)
PROC: 0D9670Z Drainage of Stomach with Drainage Device, Via Natural or Artificial Opening (ICD-10-PCS; 2018-09-14)
PROC: 0DQ80ZZ Repair Small Intestine, Open Approach (ICD-10-PCS; 2018-09-14)
PROC: 0DN80ZZ Release Small Intestine, Open Approach (ICD-10-PCS; principal; 2018-09-14 16:00)
PROC: 02HV33Z Insertion of Infusion Device into Superior Vena Cava, Percutaneous Approach (ICD-10-PCS; 2018-09-16)
PROC: B548ZZA Ultrasonography of Superior Vena Cava, Guidance (ICD-10-PCS; 2018-09-16)
PROC: B5181ZA Fluoroscopy of Superior Vena Cava using Low Osmolar Contrast, Guidance (ICD-10-PCS; 2018-09-16)
DX: K56.50 Intestinal adhesions [bands], unspecified as to partial versus complete obstruction (principal); I50.33 Acute on chronic diastolic (congestive) heart failure; E43 Unspecified severe protein-calorie malnutrition; E87.1 Hypo-osmolality and hyponatremia; I47.1 Supraventricular tachycardia; N17.9 Acute kidney failure, unspecified; E87.0 Hyperosmolality and hypernatremia; J96.11 Chronic respiratory failure with hypoxia; S36.409A Unspecified injury of unspecified part of small intestine, initial encounter; Z68.1 Body mass index [BMI] 19.9 or less, adult; K56.7 Ileus, unspecified; X58.XXXA Exposure to other specified factors, initial encounter; Y92.238 Other place in hospital as the place of occurrence of the external cause; I11.0 Hypertensive heart disease with heart failure; J84.10 Pulmonary fibrosis, unspecified; N40.0 Benign prostatic hyperplasia without lower urinary tract symptoms; E87.6 Hypokalemia; J44.9 Chronic obstructive pulmonary disease, unspecified; F41.9 Anxiety disorder, unspecified; E03.9 Hypothyroidism, unspecified; E78.5 Hyperlipidemia, unspecified; I25.10 Atherosclerotic heart disease of native coronary artery without angina pectoris; E86.0 Dehydration; F32.9 Major depressive disorder, single episode, unspecified; I48.0 Paroxysmal atrial fibrillation; I48.2 Chronic atrial fibrillation; K21.9 Gastro-esophageal reflux disease without esophagitis; K74.60 Unspecified cirrhosis of liver; M19.90 Unspecified osteoarthritis, unspecified site; Z53.31 Laparoscopic surgical procedure converted to open procedure; Z79.52 Long term (current) use of systemic steroids; Z87.01 Personal history of pneumonia (recurrent); Z79.899 Other long term (current) drug therapy; Z85.46 Personal history of malignant neoplasm of prostate; Z87.891 Personal history of nicotine dependence; Z90.49 Acquired absence of other specified parts of digestive tract; Z90.79 Acquired absence of other genital organ(s); Y93.89 Activity, other specified; Y99.8 Other external cause status; B19.20 Unspecified viral hepatitis C without hepatic coma
CPT/HCPCS: 36415; 36569; 36600; 71045; 74018; 74021; 74160; 74177; 74250; 76937; 77001; 80048; 80053; 80307; 81001; 82553; 82805; 82962; 83690; 83735; 83880; 84100; 84478; 84484; 85007; 85025; 85027; 85610; 87641; 93005; 94640; 94760; 96374; 96375; A7015; C1751; C1892; C9113; J0330; J0610; J0696; J0744; J0780; J1100; J1170; J1644; J1650; J1720; J1815; J2001; J2060; J2270; J2405; J2704; J2920; J2930; J3010; J3475; J3480; J3490; J7030; J7042; J7050; J7120; J7512; J7620; J7626; P9041; P9045; Q0162; Q9966; Q9967; 97110; 97116; 97530; 97535; 99285-25

== ENCOUNTER 2018-10-27 16:54 | Inpatient (IN) | payer MEDICARE ==
[~2018-10-27] VITALS: Ht 152.4 cm; Wt 50.4 kg
[~2018-10-27 16:54] MED LIST changes: +SERT25TA4 PO
[2018-10-27 17:30] VITALS: BP 161/99
[2018-10-27] MEDS ORDERED: BENZOCAINE ONE 20% MUCOSAL SPRAY. MM (18:30)
--- NOTE | 2018-10-27 18:36 | PDOC ---
Provider Note Provider Note SURG Pt seen earlier today at for abdominal distention. Has been having "normal" stools, but also n/v. We got a CT that shows a recurrent small bowel obstruction. He is admitted for NG decompression, IV fluids, and serial exams. Will consult his primary physician Dr Garcia for medical management SHAKEEL SOMMER MD Oct 27, 2018 18:36
[2018-10-27] MEDS ORDERED: BENZOCAINE/MENTHOL LOZENGE. PO PRN (18:45)
[2018-10-27] MEDS ORDERED: PHENOL ORAL SPRAY 177ML BOTTLE. PO PRN (18:45)
[2018-10-27 19:00] VITALS: BP 125/85
[2018-10-27 19:07] LABS: BASO % 0 % (0-3); EOS % 0 % (0-3); HEMATOCRIT 39.6 % (39.0-53.0); HEMOGLOBIN 13.2 g/dL (13.0-17.5); LYMPH # 0.6 x10^3/uL (1.0-4.8); LYMPH % 3 % (24-48); MEAN CORPUSCULAR HEMOGLOBIN 32 pg (25-35); MEAN CORPUSCULAR HGB CONC 33 g/dL (31-37); MEAN CORPUSCULAR VOLUME 96 fL (79-100); MONO % 6 % (0-9); NEUT # 15.4 x10^3uL (1.8-7.7); NEUT % 91 % (31-73); PLATELET COUNT 284 x10^3/uL (140-400); RED BLOOD COUNT 4.13 x10^6/uL (4.30-5.70); RED CELL DISTRIBUTION WIDTH 14.1 % (11.5-14.5)
[2018-10-27 19:15] LABS: CALCIUM 8.9 mg/dL (8.5-10.1); CREATININE 0.8 mg/dL (0.7-1.3); POTASSIUM 4.5 mmol/L (3.5-5.1)
[2018-10-27] MEDS: POTASSIUM CL 20MEQ-0.45% NACL 1,000 ML IV SCH (19:34)
[2018-10-27] MEDS: fentaNYL PF VIAL 100 MCG/2 ML VIAL IV PRN (19:35)
[2018-10-27] MEDS ORDERED: ONDANSETRON PF 4 MG/2 ML VIAL. IV PRN (19:45)
[2018-10-27 20:03] LABS: % BANDS 1 % (0-9); % LYMPHS 3 % (24-48); % MONOS 6 % (0-10); % SEGS 90 % (35-66)
[2018-10-27 20:04] LABS: PLT ESTIMATE ADEQUATE (ADEQUATE)
[2018-10-27] MEDS: IPRATRPIUM/ALBUTEROL 0.5/2.5MG 3 ML NEBU. NEB SCH (20:15)
[2018-10-27] MEDS: BUDESONIDE 0.5 MG/2 ML NEBU. NEB SCH (20:15)
[2018-10-27 23:00] VITALS: BP 142/82
--- NOTE | 2018-10-27 23:54 | RAD ---
EXAM: Supine AP view of the abdomen DATE: 10/27/2018 7:16 PM INDICATION: NG TUBE PLACEMENT COMPARISON: CT 10/27/2018, radiograph 09/22/2018 FINDINGS/ IMPRESSION: NG tube extends beyond the diaphragm, tip tip projects over the lateral body of the stomach. Dilation of the small bowel better assessed on prior CT. Electronically signed by: Davion Cha MD (10/27/2018 11:51 PM) [facility]
[2018-10-28 03:00] VITALS: BP 154/88
[2018-10-28] MEDS: fentaNYL PF VIAL 100 MCG/2 ML VIAL IV PRN ×5 (03:50→20:22)
[2018-10-28 04:29] LABS: BASO % 0 % (0-3); EOS % 0 % (0-3); HEMATOCRIT 35.5 % (39.0-53.0); HEMOGLOBIN 11.6 g/dL (13.0-17.5); LYMPH # 0.9 x10^3/uL (1.0-4.8); LYMPH % 7 % (24-48); MEAN CORPUSCULAR HEMOGLOBIN 31 pg (25-35); MEAN CORPUSCULAR HGB CONC 33 g/dL (31-37); MEAN CORPUSCULAR VOLUME 96 fL (79-100); MONO # 1.1 x10^3/uL (0.0-1.1); MONO % 8 % (0-9); NEUT # 11.5 x10^3uL (1.8-7.7); NEUT % 85 % (31-73); PLATELET COUNT 248 x10^3/uL (140-400); RED BLOOD COUNT 3.71 x10^6/uL (4.30-5.70); RED CELL DISTRIBUTION WIDTH 14.3 % (11.5-14.5); WHITE BLOOD COUNT 13.5 x10^3/uL (4.0-11.0)
[2018-10-28 05:03] LABS: CALCIUM 8.5 mg/dL (8.5-10.1); CREATININE 0.8 mg/dL (0.7-1.3); POTASSIUM 3.9 mmol/L (3.5-5.1)
[2018-10-28 07:00] VITALS: BP 132/82
[2018-10-28] MEDS: POTASSIUM CL 20MEQ-0.45% NACL 1,000 ML IV SCH ×2 (08:41→21:25)
[2018-10-28] MEDS: ENOXAPARIN 40 MG/0.4 ML SYRINGE. SQ SCH (08:41)
[2018-10-28] MEDS: methylPREDNISolone SOD SUCC PF 40 MG/ML VIAL. IV SCH (08:42)
--- NOTE | 2018-10-28 08:48 | RAD ---
Abdomen, 2 views, 10/28/2018: HISTORY: Small bowel obstruction Comparison is made to yesterday's study. An NG tube remains in place extending into the lateral aspect of the stomach. There is ongoing marked gaseous distention of multiple small bowel loops. This appears unchanged. There are scattered stool collections in nondilated colon. Contrast material is present in the urinary bladder from the recent CT study. Moderate degenerative change is evident in the spine. IMPRESSION: 1. The NG tube extends into the lateral aspect of the stomach. 2. Unchanged gaseous distention of small bowel compatible with small bowel obstruction. Electronically signed by: Paulo Sanchez MD (10/28/2018 8:45 AM) [facility]
[2018-10-28] MEDS: BUDESONIDE 0.5 MG/2 ML NEBU. NEB SCH ×2 (09:13→20:52)
[2018-10-28] MEDS: IPRATRPIUM/ALBUTEROL 0.5/2.5MG 3 ML NEBU. NEB SCH ×4 (09:13→20:52)
--- NOTE | 2018-10-28 09:49 | PDOC1 ---
REMBERTO WINSTON DRY MOLDER 10/28/18 0949: History and Physical Date of Admission Date of Admission DATE: 10/27/18 Identification/Chief Complaint Chief Complaint SBO Source Source: Chart review, Patient History of Present Illness History of Present Illness Patient know to Dr Sommer from previous surgery in Sep for SBO. He had a prolonged recovery with slow return of his bowel function. He discharged to and was seen yesterday by Dr Sommer. Concern for distention, CT worrisome for SBO. Reports stools at PP. Currently feels improved with NG decompression Past Medical History Cardiovascular: AFIB, HTN, Hyperlipidemia, Other Pulmonary: COPD CENTRAL NERVOUS SYSTEM: Other GI: GERD, Other Heme/Onc: Cancer Hepatobiliary: Hep A/B/C Psych: Anxiety Rheumatologic: No pertinent hx Infectious disease: No pertinent hx Renal/: No pertinent hx, Prostate Ca. Endocrine: No pertinent hx, Hypothyroidism Past Surgical History Past Surgical History: Appendectomy, Tonsillectomy, Other Family History Family History: Other (noncontributory to current illness ) Social History ALCOHOL: occassional Drugs: None Current Medications Current Medications Current Medications Benzocaine (Hurricaine One) 1 spray 1X ONCE MM Last administered on 10/27/18at 18:31; Start 10/27/18 at 18:30; Stop 10/27/18 at 18:31; Status DC Potassium Chloride/Sodium Chloride 1,000 ml @ 75 mls/hr [id number] IV Last administered on 10/28/18at 08:41; Start 10/27/18 at 18:45 Throat Lozenges (Chloraseptic) 1 spray PRN Q2HR PRN PO SORE THROAT; Start 10/27 at 18:45 Throat Lozenges (Cepacol Sore Throat Lozenge) 1 deniz PRN Q2HRS PRN PO SORE THROAT; Start 10/27/18 at 18:45 Fentanyl Citrate (Fentanyl 2ml Vial) 50 mcg PRN Q3HRS PRN IV PAIN Last administered on 10/28/18at 08:42; Start 10/27/18 at 19:15 Ondansetron HCl (Zofran) 4 mg PRN Q6HRS PRN IV NAUSEA/VOMITING; Start 10/27/18 at 19:45 Budesonide (Pulmicort) 0.5 mg RTBID NEB Last administered on 10/28/18at 09:13; Start 10/27/18 at 20:30 Albuterol/ Ipratropium (Duoneb) 3 ml RTQID NEB Last administered on 10/28/18at 09:13; Start 10/27/18 at 20:30 Enoxaparin Sodium (Lovenox 40mg Syringe) 40 mg Q24H SQ Last administered on at 08:41; Start 10/28/18 at 09:00 Methylprednisolone Sodium Succinate (SOLU-Medrol 40MG VIAL) 40 mg DAILY IV Last administered on 10/28/18at 08:42; Start 10/28/18 at 09:00 Active Scripts Active Sertraline Hcl 25 Mg Tablet 50 Mg PO QHS 30 Days Magnesium Chloride 70 Mg Tablet. 64 Mg PO DAILY 30 Days Synthroid (Levothyroxine Sodium) 88 Mcg Tablet 88 Mcg PO DAILY06 30 Days Prednisone 20 Mg Tablet 20 Mg PO DAILY 30 Days Budesonide 0.5 Mg/2 Ml Ampul.neb 0.5 Mg NEB RTBID 30 Days Klor-Con 10 (Potassium Chloride) 10 Meq Tablet.er 1 Tab PO DAILY Lasix (Furosemide) 40 Mg Tablet 1 Tab PO DAILY Aspirin Ec (Aspirin) 81 Mg Tablet. 81 Mg PO DAILYWBKFT 30 Days Duoneb 0.5-3(2.5) Mg/3 Ml (Albuterol/Ipratropium) 3 Ml Ampul.neb 3 Ml NEB RTQID 30 Days Diltiazem 24HR Cd (Diltiazem Hcl) 120 Mg Cap.er.24h 120 Mg PO DAILY 30 Days Reported Hydrocodone-Apap 7.5-325 (Hydrocodone Bit/Acetaminophen) 1 Tab Tablet 1 Tab PO PRN Q6HRS PRN Omeprazole 40 Mg Capsule. 40 Mg PO DAILY Allergies Allergies: Coded Allergies: No Known Drug Allergies (Unverified , 09/14/18) ROS General: No: Chills, Other (fevers ) PSYCHOLOGICAL ROS: No: Anxiety, Depression Eyes: No Blurry vision, No Double vision HEENT: YES: Sore Throat; No: Heacaches Hematological and Lymphatic: No: Bleeding Problems, Blood Clots Respiratory: No: Cough, Shortness of breath Cardiovascular: No Chest Pain, No Palpitations Gastrointestinal: Yes Other (see hpi) Genitourinary: No Dysuria, No Hematuria Musculoskeletal: Yes Muscular Weakness; No Joint Pain Neurological: No Impaired Coord/balance, No Seizures Skin: No Pruritus, No Rash Physical Exam General: Alert, Oriented X3, Cooperative, No acute distress HEENT: Atraumatic, PERRLA, Other (NG in place bilious ) Lungs: Clear to auscultation, Normal air movement Cardiovascular: S1, S2 Abdomen: Soft, Other (mild distended) Extremities: No clubbing, No cyanosis Skin: No rashes, No breakdown Neuro: Normal gait, Normal speech Psych/Mental Status: Mental status NL, Mood NL Vitals Vitals Vital Signs Date Time Temp Pulse Resp B/P (MAP) Pulse Ox O2 Delivery O2 Flow Rate FiO2 10/28/18 07:30 99 Nasal Cannula 3.0 10/28/18 07:00 98.1 77 17 132/82 (99) 98.1 Labs Labs Laboratory Tests Test 10/27/18 19:00 10/28/18 03:30 White Blood Count 17.0 x10^3/uL (4.0-11.0) 13.5 x10^3/uL (4.0-11.0) Red Blood Count 4.13 x10^6/uL (4.30-5.70) 3.71 x10^6/uL (4.30-5.70) Hemoglobin 13.2 g/dL (13.0-17.5) 11.6 g/dL (13.0-17.5) Hematocrit 39.6 % (39.0-53.0) 35.5 % (39.0-53.0) Mean Corpuscular Volume 96 fL (79-100) 96 fL (79-100) Mean Corpuscular Hemoglobin 32 pg (25-35) 31 pg (25-35) Mean Corpuscular Hemoglobin Concent 33 g/dL (31-37) 33 g/dL (31-37) Red Cell Distribution Width 14.1 % (11.5-14.5) 14.3 % (11.5-14.5) Platelet Count 284 x10^3/uL (140-400) 248 x10^3/uL (140-400) Neutrophils (%) (Auto) 91 % (31-73) 85 % (31-73) Lymphocytes (%) (Auto) 3 % (24-48) 7 % (24-48) Monocytes (%) (Auto) 6 % (0-9) 8 % (0-9) Eosinophils (%) (Auto) 0 % (0-3) 0 % (0-3) Basophils (%) (Auto) 0 % (0-3) 0 % (0-3) Neutrophils # (Auto) 15.4 x10^3uL (1.8-7.7) 11.5 x10^3uL (1.8-7.7) Lymphocytes # (Auto) 0.6 x10^3/uL (1.0-4.8) 0.9 x10^3/uL (1.0-4.8) Monocytes # (Auto) 1.0 x10^3/uL (0.0-1.1) 1.1 x10^3/uL (0.0-1.1) Eosinophils # (Auto) 0.0 x10^3/uL (0.0-0.7) 0.0 x10^3/uL (0.0-0.7) Basophils # (Auto) 0.0 x10^3/uL (0.0-0.2) 0.0 x10^3/uL (0.0-0.2) Segmented Neutrophils % 90 % (35-66) Band Neutrophils % 1 % (0-9) Lymphocytes % 3 % (24-48) Monocytes % 6 % (0-10) Platelet Estimate Adequate (ADEQUATE) Sodium Level 140 mmol/L (136-145) 140 mmol/L (136-145) Potassium Level 4.5 mmol/L (3.5-5.1) 3.9 mmol/L (3.5-5.1) Chloride Level 98 mmol/L (98-107) 100 mmol/L (98-107) Carbon Dioxide Level 38 mmol/L (21-32) 33 mmol/L (21-32) Anion Gap 4 (6-14) 7 (6-14) Blood Urea Nitrogen 18 mg/dL (8-26) 18 mg/dL (8-26) Creatinine 0.8 mg/dL (0.7-1.3) 0.8 mg/dL (0.7-1.3) Estimated GFR (Cockcroft-Gault) 94.0 94.0 Glucose Level 148 mg/dL (70-99) 102 mg/dL (70-99) Lactic Acid Level 1.7 mmol/L (0.4-2.0) Calcium Level 8.9 mg/dL (8.5-10.1) 8.5 mg/dL (8.5-10.1) Laboratory Tests Test 10/27/18 19:00 10/28/18 03:30 White Blood Count 17.0 x10^3/uL (4.0-11.0) 13.5 x10^3/uL (4.0-11.0) Red Blood Count 4.13 x10^6/uL (4.30-5.70) 3.71 x10^6/uL (4.30-5.70) Hemoglobin 13.2 g/dL (13.0-17.5) 11.6 g/dL (13.0-17.5) Hematocrit 39.6 % (39.0-53.0) 35.5 % (39.0-53.0) Mean Corpuscular Volume 96 fL (79-100) 96 fL (79-100) Mean Corpuscular Hemoglobin 32 pg (25-35) 31 pg (25-35) Mean Corpuscular Hemoglobin Concent 33 g/dL (31-37) 33 g/dL (31-37) Red Cell Distribution Width 14.1 % (11.5-14.5) 14.3 % (11.5-14.5) Platelet Count 284 x10^3/uL (140-400) 248 x10^3/uL (140-400) Neutrophils (%) (Auto) 91 % (31-73) 85 % (31-73) Lymphocytes (%) (Auto) 3 % (24-48) 7 % (24-48) Monocytes (%) (Auto) 6 % (0-9) 8 % (0-9) Eosinophils (%) (Auto) 0 % (0-3) 0 % (0-3) Basophils (%) (Auto) 0 % (0-3) 0 % (0-3) Neutrophils # (Auto) 15.4 x10^3uL (1.8-7.7) 11.5 x10^3uL (1.8-7.7) Lymphocytes # (Auto) 0.6 x10^3/uL (1.0-4.8) 0.9 x10^3/uL (1.0-4.8) Monocytes # (Auto) 1.0 x10^3/uL (0.0-1.1) 1.1 x10^3/uL (0.0-1.1) Eosinophils # (Auto) 0.0 x10^3/uL (0.0-0.7) 0.0 x10^3/uL (0.0-0.7) Basophils # (Auto) 0.0 x10^3/uL (0.0-0.2) 0.0 x10^3/uL (0.0-0.2) Segmented Neutrophils % 90 % (35-66) Band Neutrophils % 1 % (0-9) Lymphocytes % 3 % (24-48) Monocytes % 6 % (0-10) Platelet Estimate Adequate (ADEQUATE) Sodium Level 140 mmol/L (136-145) 140 mmol/L (136-145) Potassium Level 4.5 mmol/L (3.5-5.1) 3.9 mmol/L (3.5-5.1) Chloride Level 98 mmol/L (98-107) 100 mmol/L (98-107) Carbon Dioxide Level 38 mmol/L (21-32) 33 mmol/L (21-32) Anion Gap 4 (6-14) 7 (6-14) Blood Urea Nitrogen 18 mg/dL (8-26) 18 mg/dL (8-26) Creatinine 0.8 mg/dL (0.7-1.3) 0.8 mg/dL (0.7-1.3) Estimated GFR (Cockcroft-Gault) 94.0 94.0 Glucose Level 148 mg/dL (70-99) 102 mg/dL (70-99) Lactic Acid Level 1.7 mmol/L (0.4-2.0) Calcium Level 8.9 mg/dL (8.5-10.1) 8.5 mg/dL (8.5-10.1) VTE Prophylaxis Ordered VTE Prophylaxis Devices: No VTE Pharmacological Prophylaxi: Yes Assessment/Plan Assessment/Plan SBO recent surgery for release of SBO xrays continue to have obstructive appearance NG decompression will try sesame seed oil per NG xray in AM SHAKEEL SOMMER MD 10/28/18 1023: History and Physical VTE Prophylaxis Ordered VTE Prophylaxis Devices: Yes VTE Pharmacological Prophylaxi: Yes Assessment/Plan Assessment/Plan pt seen and examined still distended, but less so after 1500+ out NG tube serial exams hopefully can resolve without further surgery REMBERTO WINSTON APRN Oct 28, 2018 09:49 SHAKEEL SOMMER MD Oct 28, 2018 10:23
--- NOTE | 2018-10-28 10:30 | NUR ---
Medication Administration: Administered 50cc of sesame oil per NGT as ordered by Amelia GONSALES Clamped NGT at this time. Addendum: 10/28/18 at 1342 by SALTY CISNEROS RN at 1230, reconnected pt to [facility]
[2018-10-28 11:00] VITALS: BP 124/84
[2018-10-28] MEDS ORDERED: AMINO AC 3%/ELECTROLYTE/GLYCER 1,000 ML IV SCH (11:45)
--- NOTE | 2018-10-28 12:24 | CONS ---
DATE OF CONSULTATION: REASON FOR CONSULTATION: Medical management of hypertension, COPD and AFib. CHIEF COMPLAINT: Abdominal distention. HISTORY OF PRESENT ILLNESS AND HOSPITAL COURSE: This patient is a 78-year-old male who was convalescing at [facility] for alf for PT and OT after recurrent episodes of small-bowel obstruction. He initially did have surgery and had prolonged and recurrent ileus post-surgery. He was treated and able to tolerate diet and having bowel movements; therefore, was transferred to alf for PT and OT. Twenty four hours prior to admission, the patient had recurrent nausea, poor p.o. intake and abdominal distention. He was felt to have recurrent small-bowel obstruction and was seen by Surgery at [facility], who recommended admission and did admit the patient and consulted Family Medicine for continued general medicine care. The patient is stable now, has NG tube in place, had 500 mL of residual fluid removed with initial placement. PAST MEDICAL HISTORY: Significant for: 1. Pulmonary fibrosis. 2. COPD. 3. SVT. 4. Hypertension. 5. Osteoarthritis. 6. Reflux esophagitis. 7. Hypothyroidism. 8. BPH. 9. [id number]-io-[id number] diastolic congestive heart failure. 10. Severe protein malnutrition. 11. Remote history of prostate cancer. 12. History of hepatitis C without current treatment. 13. Hypothyroidism. 14. Major depression. FAMILY HISTORY: Significant for father who with bone cancer, a sister who has lupus. Mother of unknown causes. SOCIAL HISTORY: The patient is a former smoker, but quit greater than 10 years ago. The patient usually drinks 2 or 3 beers per day, but has been abstinent since current illnesses over the last several months. PAST SURGICAL HISTORY: Significant for tonsillectomy, appendectomy and prostatectomy as well as small-bowel adhesion removal. ALLERGIES: The patient has no known drug allergies. REVIEW OF SYSTEMS: The patient was convalescing well with poor p.o. intake, having intermittent stools but sometimes runny, most recently was having increasing nausea, abdominal distention, and poor p.o. intake. No evidence of fever during retirement evaluation, no significant complaints of pain other than abdominal pain. PHYSICAL EXAMINATION: GENERAL: This is a cachectic-appearing male, in no apparent distress on my exam. He is alert and oriented x 3. HEENT: Benign with NG tube in place. CARDIAC: Regular rate and rhythm with a grade 2/3 systolic ejection murmur. LUNGS: Coarse bilaterally without crackles. ABDOMEN: Distended with hypoactive bowel sounds. NEUROLOGIC: Intact. EXTREMITIES: Reveals 2+ pulses without significant edema. ASSESSMENT: 1. Recurrent small-bowel obstruction. 2. Leukocytosis. 3. Severe protein malnutrition. 4. Pulmonary fibrosis. 5. Chronic obstructive pulmonary disease. 6. Hypertension, now hypotensive. 7. Osteoarthritis. 8. Hypothyroidism. 9. Benign prostatic hypertrophy. 10. Chronic diastolic congestive heart failure. 11. Severe protein malnutrition. PLAN: To proceed with NG tube decompression, followed by TPN due to malnutrition and await further surgical recommendations and changes in clinical condition and x-rays. LOURDES POLLOCK MD DR: ABRAHAM/ralph JOB#: [id number] / [id number]
[2018-10-28] MEDS ORDERED: LIDOCAINE WITH 8.4% SOD BICARB 3 ML DISP.SYRIN. ONE (12:27)
[2018-10-28] MEDS ORDERED: LIDOCAINE WITH 8.4% SOD BICARB 3 ML DISP.SYRIN. INJ ONE (12:45)
--- NOTE | 2018-10-28 13:44 | NUR ---
SW following. Discussed with RN, pt came here from SNU at [facility]. SW attempted to meet with pt, but pt was not in his room. SW will attempt again at a later time. ADA will continue to follow for discharge planning.
[2018-10-28] MEDS: TPN PER PHARMACY MC PRN (14:23)
--- NOTE | 2018-10-28 14:26 | RAD ---
Exam: Fluoroscopic and ultrasound guided right percutaneous inserted central venous catheter placement 10/28/2018 2:23 PM .Indication: TPN, needs long-term central access Technique: Informed oral and written consent were obtained. The right upper extremity was prepped and draped using sterile barrier technique. All elements of maximal sterile barrier technique including the use of a cap, mask, sterile gown, sterile gloves, large sterile sheet, appropriate hand hygiene, and 2% chlorhexidine for cutaneous antisepsis (or acceptable alternative antiseptic per current guidelines) were followed for this procedure.. Real-time ultrasound demonstrated a patent right basilic vein. The right upper extremity was prepped and draped in usual sterile fashion. 1% lidocaine used for local anesthesia. Using real-time ultrasound guidance the access needle percutaneously punctured the selected vein. Reference ultrasound images were saved to the medical record. A guidewire was advanced through the needle to the cavoatrial junction, and a peel-away sheath placed. The catheter was cut to length and inserted through the peel-away sheath such that its tip is at the cavoatrial junction. The wire and sheath were removed, and the catheter secured in place, and a sterile dressing was applied. Catheter was found to flush and aspirate normally. No immediate complications are identified. FLUORO TIME: 0.4 minutes DOSE AREA PRODUCT: 1 Gycm2 Impression: Ultrasound and fluoroscopically guided placement of a right upper extremity PICC line.
[2018-10-28 15:00] VITALS: BP 113/70
--- NOTE | 2018-10-28 18:14 | NUR ---
Medication administration: Administered 50cc sesame oil per NGT, clamped at this time.
[2018-10-28 19:00] VITALS: BP 126/81
[2018-10-28] MEDS ORDERED: TOTAL PARENTERAL NUTRITION 1,424.9987 ML, AMINO ACID 15% 60 GM, DEXTROSE 70 % IN WATER ... IV SCH ×10 (22:00)
[2018-10-28 23:00] VITALS: BP 131/80
--- NOTE | 2018-10-29 02:30 | NUR ---
Medication Administration: 50cc of Sesame seed oil in NG and then clamped.
[2018-10-29 03:00] VITALS: BP 130/79
[2018-10-29] MEDS: fentaNYL PF VIAL 100 MCG/2 ML VIAL IV PRN (03:50)
[2018-10-29 05:39] LABS: BASO % 0 % (0-3); EOS % 0 % (0-3); HEMATOCRIT 31.3 % (39.0-53.0); HEMOGLOBIN 10.5 g/dL (13.0-17.5); LYMPH # 0.6 x10^3/uL (1.0-4.8); LYMPH % 5 % (24-48); MEAN CORPUSCULAR HEMOGLOBIN 32 pg (25-35); MEAN CORPUSCULAR HGB CONC 34 g/dL (31-37); MEAN CORPUSCULAR VOLUME 96 fL (79-100); MONO # 0.8 x10^3/uL (0.0-1.1); MONO % 7 % (0-9); NEUT # 9.7 x10^3uL (1.8-7.7); NEUT % 87 % (31-73); PLATELET COUNT 186 x10^3/uL (140-400); RED BLOOD COUNT 3.25 x10^6/uL (4.30-5.70); RED CELL DISTRIBUTION WIDTH 14.2 % (11.5-14.5); WHITE BLOOD COUNT 11.1 x10^3/uL (4.0-11.0)
[2018-10-29 05:57] LABS: ALBUMIN 2.3 g/dL (3.4-5.0); ALBUMIN/GLOBULIN RATIO 0.7 (1.0-1.7); CALCIUM 8.4 mg/dL (8.5-10.1); CREATININE 0.6 mg/dL (0.7-1.3); POTASSIUM 3.7 mmol/L (3.5-5.1); TOTAL BILIRUBIN 0.8 mg/dL (0.2-1.0); TOTAL PROTEIN 5.6 g/dL (6.4-8.2)
[2018-10-29 07:00] VITALS: BP 116/79
[2018-10-29] MEDS: BUDESONIDE 0.5 MG/2 ML NEBU. NEB SCH ×2 (07:14→19:53)
[2018-10-29] MEDS: IPRATRPIUM/ALBUTEROL 0.5/2.5MG 3 ML NEBU. NEB SCH ×4 (07:14→19:53)
--- NOTE | 2018-10-29 08:10 | RAD ---
Acute Abdominal Series: 10/29/2018 5:00 AM Reason for study: Small bowel bowel obstruction. Comparison studies: Abdominal radiograph October 28, 2018. Technique: Frontal view of the chest was obtained along with supine and upright views of the abdomen. Findings: Right upper extremity PICC is identified with the distal tip projecting over the superior right atrium. Nasogastric tube is in appropriate position. Cardiac mediastinal silhouette is borderline enlarged. There are small bilateral pleural effusions with adjacent compressive atelectasis versus infiltrates. There is mild to moderate pulmonary vascular congestion. No pneumothorax. There is no free intraperitoneal air. There are dilated small bowel loops, suspected to represent jejunal bowel loops measuring up to 7.2 cm. Findings are not significantly changed the prior radiograph. There is no pneumatosis coli. There is contrast within the urinary bladder. No suspicious osseous abnormality. IMPRESSION: Persistent small bowel dilatation, not significantly changed since prior examination. No free intraperitoneal air. Electronically signed by: Mer Cody MD (10/29/2018 8:06 AM) [id number]
--- NOTE | 2018-10-29 09:03 | PDOC ---
REMBERTO WINSTON THERMOSTAT REPAIRER 10/29/18 0903: SURGICAL PROGRESS NOTE Subjective some abdominal pain--about the same no flatus Vital Signs Vital Signs Date Time Temp Pulse Resp B/P (MAP) Pulse Ox O2 Delivery O2 Flow Rate FiO2 10/29/18 07:45 Nasal Cannula 2.0 10/29/18 07:14 96 10/29/18 07:00 98.3 97 18 116/79 (91) 98.3 I&O Intake and Output 10/29/18 07:00 Intake Total 200 ml Output Total 850 ml Balance -650 ml Intake Oral 200 ml Output Urine Total 550 ml Gastric Drainage Total 300 ml # Voids 3 General: Alert, Oriented X3, Cooperative, No acute distress HEENT: Other (NG in place) Abdomen: Soft, Other (distended, TTP mid abdomen ) Labs Laboratory Tests Test 10/27/18 19:00 10/28/18 03:30 10/29/18 05:30 White Blood Count 17.0 x10^3/uL (4.0-11.0) 13.5 x10^3/uL (4.0-11.0) 11.1 x10^3/uL (4.0-11.0) Red Blood Count 4.13 x10^6/uL (4.30-5.70) 3.71 x10^6/uL (4.30-5.70) 3.25 x10^6/uL (4.30-5.70) Hemoglobin 13.2 g/dL (13.0-17.5) 11.6 g/dL (13.0-17.5) 10.5 g/dL (13.0-17.5) Hematocrit 39.6 % (39.0-53.0) 35.5 % (39.0-53.0) 31.3 % (39.0-53.0) Mean Corpuscular Volume 96 fL (79-100) 96 fL (79-100) 96 fL (79-100) Mean Corpuscular Hemoglobin 32 pg (25-35) 31 pg (25-35) 32 pg (25-35) Mean Corpuscular Hemoglobin Concent 33 g/dL (31-37) 33 g/dL (31-37) 34 g/dL (31-37) Red Cell Distribution Width 14.1 % (11.5-14.5) 14.3 % (11.5-14.5) 14.2 % (11.5-14.5) Platelet Count 284 x10^3/uL (140-400) 248 x10^3/uL (140-400) 186 x10^3/uL (140-400) Neutrophils (%) (Auto) 91 % (31-73) 85 % (31-73) 87 % (31-73) Lymphocytes (%) (Auto) 3 % (24-48) 7 % (24-48) 5 % (24-48) Monocytes (%) (Auto) 6 % (0-9) 8 % (0-9) 7 % (0-9) Eosinophils (%) (Auto) 0 % (0-3) 0 % (0-3) 0 % (0-3) Basophils (%) (Auto) 0 % (0-3) 0 % (0-3) 0 % (0-3) Neutrophils # (Auto) 15.4 x10^3uL (1.8-7.7) 11.5 x10^3uL (1.8-7.7) 9.7 x10^3uL (1.8-7.7) Lymphocytes # (Auto) 0.6 x10^3/uL (1.0-4.8) 0.9 x10^3/uL (1.0-4.8) 0.6 x10^3/uL (1.0-4.8) Monocytes # (Auto) 1.0 x10^3/uL (0.0-1.1) 1.1 x10^3/uL (0.0-1.1) 0.8 x10^3/uL (0.0-1.1) Eosinophils # (Auto) 0.0 x10^3/uL (0.0-0.7) 0.0 x10^3/uL (0.0-0.7) 0.0 x10^3/uL (0.0-0.7) Basophils # (Auto) 0.0 x10^3/uL (0.0-0.2) 0.0 x10^3/uL (0.0-0.2) 0.0 x10^3/uL (0.0-0.2) Segmented Neutrophils % 90 % (35-66) Band Neutrophils % 1 % (0-9) Lymphocytes % 3 % (24-48) Monocytes % 6 % (0-10) Platelet Estimate Adequate (ADEQUATE) Sodium Level 140 mmol/L (136-145) 140 mmol/L (136-145) 139 mmol/L (136-145) Potassium Level 4.5 mmol/L (3.5-5.1) 3.9 mmol/L (3.5-5.1) 3.7 mmol/L (3.5-5.1) Chloride Level 98 mmol/L (98-107) 100 mmol/L (98-107) 100 mmol/L (98-107) Carbon Dioxide Level 38 mmol/L (21-32) 33 mmol/L (21-32) 34 mmol/L (21-32) Anion Gap 4 (6-14) 7 (6-14) 5 (6-14) Blood Urea Nitrogen 18 mg/dL (8-26) 18 mg/dL (8-26) 23 mg/dL (8-26) Creatinine 0.8 mg/dL (0.7-1.3) 0.8 mg/dL (0.7-1.3) 0.6 mg/dL (0.7-1.3) Estimated GFR (Cockcroft-Gault) 94.0 94.0 131.0 Glucose Level 148 mg/dL (70-99) 102 mg/dL (70-99) 154 mg/dL (70-99) Lactic Acid Level 1.7 mmol/L (0.4-2.0) Calcium Level 8.9 mg/dL (8.5-10.1) 8.5 mg/dL (8.5-10.1) 8.4 mg/dL (8.5-10.1) BUN/Creatinine Ratio 38 (6-20) Total Bilirubin 0.8 mg/dL (0.2-1.0) Aspartate Amino Transf (AST/SGOT) 8 U/L (15-37) Alanine Aminotransferase (ALT/SGPT) 11 U/L (16-63) Alkaline Phosphatase 45 U/L (46-116) Total Protein 5.6 g/dL (6.4-8.2) Albumin 2.3 g/dL (3.4-5.0) Albumin/Globulin Ratio 0.7 (1.0-1.7) Laboratory Tests Test 10/29/18 05:30 White Blood Count 11.1 x10^3/uL (4.0-11.0) Red Blood Count 3.25 x10^6/uL (4.30-5.70) Hemoglobin 10.5 g/dL (13.0-17.5) Hematocrit 31.3 % (39.0-53.0) Mean Corpuscular Volume 96 fL (79-100) Mean Corpuscular Hemoglobin 32 pg (25-35) Mean Corpuscular Hemoglobin Concent 34 g/dL (31-37) Red Cell Distribution Width 14.2 % (11.5-14.5) Platelet Count 186 x10^3/uL (140-400) Neutrophils (%) (Auto) 87 % (31-73) Lymphocytes (%) (Auto) 5 % (24-48) Monocytes (%) (Auto) 7 % (0-9) Eosinophils (%) (Auto) 0 % (0-3) Basophils (%) (Auto) 0 % (0-3) Neutrophils # (Auto) 9.7 x10^3uL (1.8-7.7) Lymphocytes # (Auto) 0.6 x10^3/uL (1.0-4.8) Monocytes # (Auto) 0.8 x10^3/uL (0.0-1.1) Eosinophils # (Auto) 0.0 x10^3/uL (0.0-0.7) Basophils # (Auto) 0.0 x10^3/uL (0.0-0.2) Sodium Level 139 mmol/L (136-145) Potassium Level 3.7 mmol/L (3.5-5.1) Chloride Level 100 mmol/L (98-107) Carbon Dioxide Level 34 mmol/L (21-32) Anion Gap 5 (6-14) Blood Urea Nitrogen 23 mg/dL (8-26) Creatinine 0.6 mg/dL (0.7-1.3) Estimated GFR (Cockcroft-Gault) 131.0 BUN/Creatinine Ratio 38 (6-20) Glucose Level 154 mg/dL (70-99) Calcium Level 8.4 mg/dL (8.5-10.1) Total Bilirubin 0.8 mg/dL (0.2-1.0) Aspartate Amino Transf (AST/SGOT) 8 U/L (15-37) Alanine Aminotransferase (ALT/SGPT) 11 U/L (16-63) Alkaline Phosphatase 45 U/L (46-116) Total Protein 5.6 g/dL (6.4-8.2) Albumin 2.3 g/dL (3.4-5.0) Albumin/Globulin Ratio 0.7 (1.0-1.7) Assessment/Plan sbo continue NG, bowel rest, hydration/TPN SHAKEEL SOMMER MD 10/29/18 1242: SURGICAL PROGRESS NOTE Assessment/Plan pt seen and examined agree with above follow serial exams Dr Momin available over the weekend if needed d/w REMBERTO Nichole APRN Oct 29, 2018 09:03 SHAKEEL SOMMER MD Oct 29, 2018 12:42
[2018-10-29] MEDS: methylPREDNISolone SOD SUCC PF 40 MG/ML VIAL. IV SCH (09:08)
[2018-10-29] MEDS: ENOXAPARIN 40 MG/0.4 ML SYRINGE. SQ SCH (09:08)
[2018-10-29 11:00] VITALS: BP 126/73
[2018-10-29] MEDS: MORPHINE SULFATE 4 MG/ML VIAL. IV PRN ×3 (11:56→22:31)
[2018-10-29] MEDS: TPN PER PHARMACY MC PRN (13:42)
--- NOTE | 2018-10-29 13:45 | NUR ---
Pharmacy TPN Dosing Note S: JOHN ROBBINS is a 78 year old M Currently receiving Central Continuous TPN started 10/28/18 B:Pertinent PMH: NPO Height: 5 feet, 10 inches Weight: 40.556208 kg Current diet: LABS: Sodium: 139 Potassium: 3.7 Chloride: 100 Calcium: 8.4 Corrected Calcium: 9.76 Magnesium: CO2: 34 SCr: 0.6 Glucose: 154 Albumin: 2.3 AST: 23 ALT: 11 TPN FORMULA: TPN TYPE: Central Continuous AMINO ACIDS: 60 gm DEXTROSE: 195 gm LIPIDS: 20 gm SODIUM CHLORIDE: 90 mEq SODIUM ACETATE: mEq SODIUM PHOSPHATE: mmol POTASSIUM CHLORIDE: 50 mEq POTASSIUM ACETATE: mEq POTASSIUM PHOSPHATE: 13.6 mmol MAGNESIUM: 10 mEq CALCIUM: 10 mEq INSULIN: units MULTIPLE VITAMIN: 10 ml TRACE ELEMENTS: 1 ml(s) TPN PLAN: NO CHANGE IN TPN R: Continue TPN AT 63ML/HR Will monitor electrolytes, glucose, and tolerance to TPN. JAKE MORALES [facility], 10/29/18 1252
--- NOTE | 2018-10-29 14:09 | NUR ---
SW following. Discussed with RN, pt possibly needing surgery early next week. Pt came from [facility] [place]. NG tube and TPN currently. SW will continue to follow.
[2018-10-29 15:00] VITALS: BP 104/74
--- NOTE | 2018-10-29 17:24 | PDOC ---
PROGRESS NOTES Subjective Subjective Patient continues to have abdominal pain. Medications switch from fentanyl to morphine due to poor efficacy. Patient denies flatus or bowel movement. Objective Objective Vital Signs Date Time Temp Pulse Resp B/P (MAP) Pulse Ox O2 Delivery O2 Flow Rate FiO2 10/29/18 15:14 96 Nasal Cannula 3.0 10/29/18 15:00 97.7 87 18 104/74 (84) 97.7 Intake and Output 10/29/18 07:00 Intake Total 200 ml Output Total 850 ml Balance -650 ml Intake Oral 200 ml Output Urine Total 550 ml Gastric Drainage Total 300 ml # Voids 3 Physical Exam Abdomen: Other (bowel sounds present but hypoactive. Abdomen distended mildly tender no rebound or guarding) Heart: Regular rate Extremities: No edema General: Alert Lungs: Clear to auscultation Assessment Assessment 1. Recurrent small-bowel obstruction. 2. Leukocytosis. 3. Severe protein malnutrition. 4. Pulmonary fibrosis. 5. Chronic obstructive pulmonary disease. 6. Hypertension, now hypotensive. 7. Osteoarthritis. 8. Hypothyroidism. 9. Benign prostatic hypertrophy. 10. Chronic diastolic congestive heart failure. 11. Severe protein malnutrition. Plan Plan of Care NG tube decompression. Continue TPN. Continue surgical follow-up Encouraged ambulation and activity. Comment Review of Relevant I have reviewed the following items sherine (where applicable) has been applied. Labs Laboratory Tests Test 10/27/18 19:00 10/28/18 03:30 10/29/18 05:30 White Blood Count 17.0 x10^3/uL (4.0-11.0) 13.5 x10^3/uL (4.0-11.0) 11.1 x10^3/uL (4.0-11.0) Red Blood Count 4.13 x10^6/uL (4.30-5.70) 3.71 x10^6/uL (4.30-5.70) 3.25 x10^6/uL (4.30-5.70) Hemoglobin 13.2 g/dL (13.0-17.5) 11.6 g/dL (13.0-17.5) 10.5 g/dL (13.0-17.5) Hematocrit 39.6 % (39.0-53.0) 35.5 % (39.0-53.0) 31.3 % (39.0-53.0) Mean Corpuscular Volume 96 fL (79-100) 96 fL (79-100) 96 fL (79-100) Mean Corpuscular Hemoglobin 32 pg (25-35) 31 pg (25-35) 32 pg (25-35) Mean Corpuscular Hemoglobin Concent 33 g/dL (31-37) 33 g/dL (31-37) 34 g/dL (31-37) Red Cell Distribution Width 14.1 % (11.5-14.5) 14.3 % (11.5-14.5) 14.2 % (11.5-14.5) Platelet Count 284 x10^3/uL (140-400) 248 x10^3/uL (140-400) 186 x10^3/uL (140-400) Neutrophils (%) (Auto) 91 % (31-73) 85 % (31-73) 87 % (31-73) Lymphocytes (%) (Auto) 3 % (24-48) 7 % (24-48) 5 % (24-48) Monocytes (%) (Auto) 6 % (0-9) 8 % (0-9) 7 % (0-9) Eosinophils (%) (Auto) 0 % (0-3) 0 % (0-3) 0 % (0-3) Basophils (%) (Auto) 0 % (0-3) 0 % (0-3) 0 % (0-3) Neutrophils # (Auto) 15.4 x10^3uL (1.8-7.7) 11.5 x10^3uL (1.8-7.7) 9.7 x10^3uL (1.8-7.7) Lymphocytes # (Auto) 0.6 x10^3/uL (1.0-4.8) 0.9 x10^3/uL (1.0-4.8) 0.6 x10^3/uL (1.0-4.8) Monocytes # (Auto) 1.0 x10^3/uL (0.0-1.1) 1.1 x10^3/uL (0.0-1.1) 0.8 x10^3/uL (0.0-1.1) Eosinophils # (Auto) 0.0 x10^3/uL (0.0-0.7) 0.0 x10^3/uL (0.0-0.7) 0.0 x10^3/uL (0.0-0.7) Basophils # (Auto) 0.0 x10^3/uL (0.0-0.2) 0.0 x10^3/uL (0.0-0.2) 0.0 x10^3/uL (0.0-0.2) Segmented Neutrophils % 90 % (35-66) Band Neutrophils % 1 % (0-9) Lymphocytes % 3 % (24-48) Monocytes % 6 % (0-10) Platelet Estimate Adequate (ADEQUATE) Sodium Level 140 mmol/L (136-145) 140 mmol/L (136-145) 139 mmol/L (136-145) Potassium Level 4.5 mmol/L (3.5-5.1) 3.9 mmol/L (3.5-5.1) 3.7 mmol/L (3.5-5.1) Chloride Level 98 mmol/L (98-107) 100 mmol/L (98-107) 100 mmol/L (98-107) Carbon Dioxide Level 38 mmol/L (21-32) 33 mmol/L (21-32) 34 mmol/L (21-32) Anion Gap 4 (6-14) 7 (6-14) 5 (6-14) Blood Urea Nitrogen 18 mg/dL (8-26) 18 mg/dL (8-26) 23 mg/dL (8-26) Creatinine 0.8 mg/dL (0.7-1.3) 0.8 mg/dL (0.7-1.3) 0.6 mg/dL (0.7-1.3) Estimated GFR (Cockcroft-Gault) 94.0 94.0 131.0 Glucose Level 148 mg/dL (70-99) 102 mg/dL (70-99) 154 mg/dL (70-99) Lactic Acid Level 1.7 mmol/L (0.4-2.0) Calcium Level 8.9 mg/dL (8.5-10.1) 8.5 mg/dL (8.5-10.1) 8.4 mg/dL (8.5-10.1) BUN/Creatinine Ratio 38 (6-20) Total Bilirubin 0.8 mg/dL (0.2-1.0) Aspartate Amino Transf (AST/SGOT) 8 U/L (15-37) Alanine Aminotransferase (ALT/SGPT) 11 U/L (16-63) Alkaline Phosphatase 45 U/L (46-116) Total Protein 5.6 g/dL (6.4-8.2) Albumin 2.3 g/dL (3.4-5.0) Albumin/Globulin Ratio 0.7 (1.0-1.7) Laboratory Tests Test 10/29/18 05:30 White Blood Count 11.1 x10^3/uL (4.0-11.0) Red Blood Count 3.25 x10^6/uL (4.30-5.70) Hemoglobin 10.5 g/dL (13.0-17.5) Hematocrit 31.3 % (39.0-53.0) Mean Corpuscular Volume 96 fL (79-100) Mean Corpuscular Hemoglobin 32 pg (25-35) Mean Corpuscular Hemoglobin Concent 34 g/dL (31-37) Red Cell Distribution Width 14.2 % (11.5-14.5) Platelet Count 186 x10^3/uL (140-400) Neutrophils (%) (Auto) 87 % (31-73) Lymphocytes (%) (Auto) 5 % (24-48) Monocytes (%) (Auto) 7 % (0-9) Eosinophils (%) (Auto) 0 % (0-3) Basophils (%) (Auto) 0 % (0-3) Neutrophils # (Auto) 9.7 x10^3uL (1.8-7.7) Lymphocytes # (Auto) 0.6 x10^3/uL (1.0-4.8) Monocytes # (Auto) 0.8 x10^3/uL (0.0-1.1) Eosinophils # (Auto) 0.0 x10^3/uL (0.0-0.7) Basophils # (Auto) 0.0 x10^3/uL (0.0-0.2) Sodium Level 139 mmol/L (136-145) Potassium Level 3.7 mmol/L (3.5-5.1) Chloride Level 100 mmol/L (98-107) Carbon Dioxide Level 34 mmol/L (21-32) Anion Gap 5 (6-14) Blood Urea Nitrogen 23 mg/dL (8-26) Creatinine 0.6 mg/dL (0.7-1.3) Estimated GFR (Cockcroft-Gault) 131.0 BUN/Creatinine Ratio 38 (6-20) Glucose Level 154 mg/dL (70-99) Calcium Level 8.4 mg/dL (8.5-10.1) Total Bilirubin 0.8 mg/dL (0.2-1.0) Aspartate Amino Transf (AST/SGOT) 8 U/L (15-37) Alanine Aminotransferase (ALT/SGPT) 11 U/L (16-63) Alkaline Phosphatase 45 U/L (46-116) Total Protein 5.6 g/dL (6.4-8.2) Albumin 2.3 g/dL (3.4-5.0) Albumin/Globulin Ratio 0.7 (1.0-1.7) Medications Current Medications Benzocaine (Hurricaine One) 1 spray 1X ONCE MM Last administered on 10/27/18 18:31; Start 10/27/18 at 18:30; Stop 10/27/18 at 18:31; Status DC Potassium Chloride/Sodium Chloride 1,000 ml @ 75 mls/hr [id number] IV Last administered on 10/28/18 08:41; Start 10/27/18 at 18:45; Stop 10/29/18 at 09:32 ; Status DC Throat Lozenges (Chloraseptic) 1 spray PRN Q2HR PRN PO SORE THROAT Last administered on 10/29/18 04:05; Start 10/27/18 at 18:45 Throat Lozenges (Cepacol Sore Throat Lozenge) 1 deniz PRN Q2HRS PRN PO SORE THROAT Last administered on 10/28/18 15:30; Start 10/27/18 at 18:45 Fentanyl Citrate (Fentanyl 2ml Vial) 50 mcg PRN Q3HRS PRN IV PAIN Last administered on 10/29/18 03:50; Start 10/27/18 at 19:15; Stop 10/29/18 at 11:30 ; Status DC Ondansetron HCl (Zofran) 4 mg PRN Q6HRS PRN IV NAUSEA/VOMITING; Start 10/27/18 at 19:45 Budesonide (Pulmicort) 0.5 mg RTBID NEB Last administered on 10/29/18 07:14; Start 10/27/18 at 20:30 Albuterol/ Ipratropium (Duoneb) 3 ml RTQID NEB Last administered on 10/29/18 15:13; Start 10/27/18 at 20:30 Enoxaparin Sodium (Lovenox 40mg Syringe) 40 mg Q24H SQ Last administered on 09:08; Start 10/28/18 at 09:00 Methylprednisolone Sodium Succinate (SOLU-Medrol 40MG VIAL) 40 mg DAILY IV Last administered on 10/29/18 09:08; Start 10/28/18 at 09:00 Info (Tpn Per Pharmacy) 1 each PRN DAILY PRN MC SEE COMMENTS Last administered on 10/29/18 13:42; Start 10/28/18 at 11:45 Amino Acids/ Glycerin/ Electrolytes 1,000 ml @ 80 mls/hr [id number] IV Last administered on 10/28/18 12:25; Start 10/28/18 at 11:45; Stop 10/28/18 at 21:59 ; Status DC Lidocaine/Sodium Bicarbonate (Buffered Lidocaine 1%) 3 ml STK-MED ONCE .ROUTE ; Start 10/28/18 at 12:27; Stop 10/28/18 at 12:28; Status DC Lidocaine/Sodium Bicarbonate (Buffered Lidocaine 1%) 4 ml 1X ONCE INJ Last administered on 10/28/18 13:11; Start 10/28/18 at 12:45; Stop 10/28/18 at 12:46 ; Status DC Sodium Chloride 90 meq/Potassium Chloride 50 meq/ Potassium Phosphate 13.6 mmol/ Magnesium Sulfate 10 meq/ Calcium Gluconate 10 meq/ Multivitamins 10 ml/Chromium / Copper/Manganese/ Seleni/Zn 1 ml/ Total Parenteral Nutrition/Amino Acids/ Dextrose/ Fat Emulsion Intravenous 1,512 ml @ 63 mls/hr TPN CONT IV Last administered on 10/28/18 22:08; Start 10/28/18 at 22:00; Stop 10/29/18 at 21:59 Morphine Sulfate (Morphine Sulfate) 4 mg PRN Q2HR PRN IV PAIN Last administered on 3/29/19at 11:56; Start 10/29/18 at 11:30 Sodium Chloride 90 meq/Potassium Chloride 50 meq/ Potassium Phosphate 13.6 mmol/ Magnesium Sulfate 10 meq/ Calcium Gluconate 10 meq/ Multivitamins 10 ml/Chromium / Copper/Manganese/ Seleni/Zn 1 ml/ Total Parenteral Nutrition/Amino Acids/ Dextrose/ Fat Emulsion Intravenous 1,512 ml @ 63 mls/hr TPN CONT IV ; Start at 22:00; Stop 10/30/18 at 21:59 Active Scripts Active Sertraline Hcl 25 Mg Tablet 50 Mg PO QHS 30 Days Magnesium Chloride 70 Mg Tablet.dr 64 Mg PO DAILY 30 Days Synthroid (Levothyroxine Sodium) 88 Mcg Tablet 88 Mcg PO DAILY06 30 Days Prednisone 20 Mg Tablet 20 Mg PO DAILY 30 Days Budesonide 0.5 Mg/2 Ml Ampul.neb 0.5 Mg NEB RTBID 30 Days Klor-Con 10 (Potassium Chloride) 10 Meq Tablet.er 1 Tab PO DAILY Lasix (Furosemide) 40 Mg Tablet 1 Tab PO DAILY Aspirin Ec (Aspirin) 81 Mg Tablet. 81 Mg PO DAILYWBKFT 30 Days Duoneb 0.5-3(2.5) Mg/3 Ml (Albuterol/Ipratropium) 3 Ml Ampul.neb 3 Ml NEB RTQID 30 Days Diltiazem 24HR Cd (Diltiazem Hcl) 120 Mg Cap.er.24h 120 Mg PO DAILY 30 Days Reported Hydrocodone-Apap 7.5-325 (Hydrocodone Bit/Acetaminophen) 1 Tab Tablet 1 Tab PO PRN Q6HRS PRN Omeprazole 40 Mg Capsule. 40 Mg PO DAILY Vitals/I & O Vital Sign - Last 24 Hours 10/28/18 10/28/18 10/28/18 10/28/18 19:00 20:05 20:22 20:52 Temp 99.7 99.7 Pulse 86 Resp 18 B/P (MAP) 126/81 (96) Pulse Ox 97 O2 Delivery Nasal Cannula Nasal Cannula Nasal Cannula Nasal Cannula O2 Flow Rate 3.0 3.0 3.0 3.0 10/28/18 10/28/18 10/29/18 10/29/18 20:53 23:00 03:00 03:50 Temp 98.7 98.3 98.7 98.3 Pulse 91 95 Resp 18 18 B/P (MAP) 131/80 (97) 130/79 (96) Pulse Ox 98 97 99 O2 Delivery Nasal Cannula Nasal Cannula Nasal Cannula NonRebreather Mask O2 Flow Rate 3.0 3.0 3.0 3.0 10/29/18 10/29/18 10/29/18 10/29/18 07:00 07:14 07:45 10:52 Temp 98.3 98.3 Pulse 97 Resp 18 B/P (MAP) 116/79 (91) Pulse Ox 96 96 96 O2 Delivery Nasal Cannula Nasal Cannula Nasal Cannula Nasal Cannula O2 Flow Rate 3.0 2.0 2.0 3.0 10/29/18 10/29/18 10/29/18 10/29/18 11:00 11:56 12:26 15:00 Temp 97.9 97.7 97.9 97.7 Pulse 95 87 Resp 18 16 16 18 B/P (MAP) 126/73 (90) 104/74 (84) Pulse Ox 96 99 O2 Delivery Nasal Cannula Nasal Cannula Nasal Cannula Nasal Cannula O2 Flow Rate 3.0 4.0 4.0 3.0 10/29/18 15:14 Pulse Ox 96 O2 Delivery Nasal Cannula O2 Flow Rate 3.0 Intake and Output 10/28/18 10/28/18 10/29/18 15:00 23:00 07:00 Intake Total 200 ml Output Total 200 ml 150 ml 500 ml Balance -200 ml -150 ml -300 ml Nutrition Consultation Dietary Evaluation: Recommendations by RD: PPN/TPN Comments: continue TPN until able to advance to po diet Expected Outcomes/Goals: diet advance, tolerance Interpretation of weight loss: >7.5% in 3 months Malnutrition Findings: Food and Nutrition Intake (Sev: <50% est energy req 5days Body Fat Depletion (Non Severe: Mild Depletion Weight Status: Emaciated LOURDES POLLOCK MD Oct 29, 2018 17:24
[2018-10-29 19:45] VITALS: BP 124/79
[2018-10-29] MEDS ORDERED: TOTAL PARENTERAL NUTRITION 1,424.9987 ML, AMINO ACID 15% 60 GM, DEXTROSE 70 % IN WATER ... IV SCH ×10 (22:00)
[2018-10-29 23:59] VITALS: BP 107/64
[2018-10-30 03:59] VITALS: BP 119/70
[2018-10-30 05:39] LABS: CREATININE 0.6 mg/dL (0.7-1.3); MAGNESIUM 2.1 mg/dL (1.8-2.4)
[2018-10-30] MEDS: MORPHINE SULFATE 4 MG/ML VIAL. IV PRN ×3 (06:20→21:22)
--- NOTE | 2018-10-30 06:34 | NUR ---
NURSING NOTE Pt has voided several small amounts of urine throughout the night. Pt states this isn't normal for him. Bladder scan showed >802ml. Dr. Pham called and notified at this time, order to straight cath x1 now, then recheck pvr in 4 hours.
[2018-10-30 07:00] VITALS: BP 103/61
--- NOTE | 2018-10-30 07:01 | NUR ---
NURSING NOTE Pt straight cath x1, had 700 mL maryam colored urine return. Joshua LOJA, dayshift nurse, notified.
[2018-10-30] MEDS: IPRATRPIUM/ALBUTEROL 0.5/2.5MG 3 ML NEBU. NEB SCH ×4 (08:12→19:52)
[2018-10-30] MEDS: BUDESONIDE 0.5 MG/2 ML NEBU. NEB SCH ×2 (08:12→19:52)
[2018-10-30] MEDS: methylPREDNISolone SOD SUCC PF 40 MG/ML VIAL. IV SCH (09:26)
[2018-10-30] MEDS: ENOXAPARIN 40 MG/0.4 ML SYRINGE. SQ SCH (09:27)
--- NOTE | 2018-10-30 09:50 | PDOC ---
SUBJECTIVE Subjective Pt states that he is doing okay. Abdominal pain slightly improved but still present. Denies nausea, vomiting. Not passing gas, no BM. Cough that he says is chronic; productive with perkins sputum. Has had urinary retention with 700cc with straight cath earlier this morning OBJECTIVE Vital Signs Vital Signs Date Time Temp Pulse Resp B/P (MAP) Pulse Ox O2 Delivery O2 Flow Rate FiO2 10/30/18 08:13 98 Nasal Cannula 2.0 10/30/18 08:00 Nasal Cannula 2.0 10/30/18 07:00 97.6 63 20 103/61 (75) 98 Nasal Cannula 2.0 97.6 10/30/18 06:50 20 Nasal Cannula 3.0 10/30/18 06:20 20 Nasal Cannula 3.0 10/30/18 03:59 98.0 88 18 119/70 (86) 96 Nasal Cannula 2.0 98.0 10/29/18 23:59 98.4 90 18 107/64 (78) 97 Nasal Cannula 3.0 98.4 10/29/18 22:31 20 Nasal Cannula 3.0 10/29/18 20:00 Nasal Cannula 3.0 10/29/18 19:56 98 Nasal Cannula 3.0 10/29/18 19:55 98 Nasal Cannula 3.0 10/29/18 19:45 98.1 101 19 124/79 (94) 97 Nasal Cannula 3.0 98.1 10/29/18 18:53 18 Nasal Cannula 3.0 10/29/18 15:14 96 Nasal Cannula 3.0 10/29/18 15:00 97.7 87 18 104/74 (84) 99 Nasal Cannula 3.0 97.7 10/29/18 11:56 16 Nasal Cannula 4.0 10/29/18 11:00 97.9 95 18 126/73 (90) 96 Nasal Cannula 3.0 97.9 10/29/18 10:52 96 Nasal Cannula 3.0 I & O Intake and Output 10/30/18 07:00 Output Total 675 ml Balance -675 ml Output Urine Total 675 ml PHYSICAL EXAM Physical Exam GEN: NAD, AOx3, appears weak, cachectic HEENT: dry mucous membranes, EOMI, no scleral icterus/injection, NG in place Cardiac: RRR, no M/R/G Lungs: rattling throughout chest, regular breathing rate and effort Abd: mildly distended, mild TTP Ext: no erythema/edema LE bilaterally Neuro: CN2-12 GI ASSESSMENT/PLAN Assessment/Plan Pt is a 78yo CM admitted with recurrent SBO 1. Recurrent small-bowel obstruction- Sx following. NG in place. Receiving TPN. Pt feeling mildly better this morning. Not passing gas, no BM 2. Leukocytosis- afebrile. Improving. Pt with cough; CXR ordered. U/A ordered. 3. Severe protein malnutrition. 4. Pulmonary fibrosis. 5. Chronic obstructive pulmonary disease- currently receiving Pulmicort, Duonebs. Will add albuterol prn 6. Hypertension- now hypotensive. CTM 7. Osteoarthritis. 8. Hypothyroidism- previously not at goal. Repeat TSH pending 9. Benign prostatic hypertrophy- currently with urinary retention. Will recheck later today. If still having retention, will put in catheter 10. Chronic diastolic congestive heart failure. 11. Anemia- mild, CTM COMMENT Lab Laboratory Tests Test 10/30/18 01:02 10/30/18 05:15 10/30/18 06:03 Glucose (Fingerstick) 130 mg/dL (70-99) 122 mg/dL (70-99) Sodium Level 139 mmol/L (136-145) Potassium Level 4.0 mmol/L (3.5-5.1) Chloride Level 101 mmol/L (98-107) Carbon Dioxide Level 32 mmol/L (21-32) Anion Gap 6 (6-14) Blood Urea Nitrogen 19 mg/dL (8-26) Creatinine 0.6 mg/dL (0.7-1.3) Estimated GFR (Cockcroft-Gault) 131.0 Glucose Level 112 mg/dL (70-99) Calcium Level 8.0 mg/dL (8.5-10.1) Phosphorus Level 3.0 mg/dL (2.6-4.7) Magnesium Level 2.1 mg/dL (1.8-2.4) Nutrition Consultation Dietary Evaluation: Recommendations by RD: PPN/TPN Comments: continue TPN until able to advance to po diet Expected Outcomes/Goals: diet advance, tolerance Interpretation of weight loss: >7.5% in 3 months Malnutrition Findings: Food and Nutrition Intake (Sev: <50% est energy req 5days Body Fat Depletion (Non Severe: Mild Depletion Weight Status: Emaciated POLLY ARCHIBALD MD Oct 30, 2018 09:50
[2018-10-30] MEDS ORDERED: ALBUTEROL SULFATE 2.5 MG/3 ML NEBU. NEB PRN (10:00)
[2018-10-30 10:59] VITALS: BP 118/72
--- NOTE | 2018-10-30 11:11 | NUR ---
Pt void 30 ml,bladder scan PVR = 37,Dr Pham notified,see orders.
--- NOTE | 2018-10-30 11:54 | RAD ---
CHEST AP ONLY History: PRODUCTIVE COUGH Comparison: 09/12/2018 Findings: Single view of the chest is submitted. There is increased left base infiltrate, mild increased airspace opacity right lung base. There is no pneumothorax. There is enteric catheter coursing into the stomach. There is right upper extremity PICC with the tip near the cavoatrial junction. Heart size is similar. There is probable small left pleural effusion, unchanged mild blunting of the right costophrenic sulcus. There is some interstitial opacity of the bilateral hemithoraces as seen previously. Impression: 1. There is left base infiltrate and small left pleural effusion, mild right base atelectasis or infiltrate. Electronically signed by: Maurizio Jamison MD (10/30/2018 11:50 AM) [facility]
[2018-10-30 12:18] LABS: BILIRUBIN,URINE NEGATIVE (NEG); CLARITY,URINE CLEAR; COLOR,URINE YELLOW; NITRITE,URINE NEGATIVE (NEG); PH,URINE 6.5; PROTEIN,URINE NEGATIVE (NEG-TRACE)
[2018-10-30 12:37] LABS: HYALINE CASTS, URINE MODERATE /HPF; SQUAMOUS EPITHELIAL CELL,UR MOD /LPF; WAXY CASTS,URINE OCCASIONAL /HPF
[2018-10-30 12:38] LABS: BACTERIA,URINE 0 /HPF (0-FEW)
[2018-10-30] MEDS: TPN PER PHARMACY MC PRN ×2 (12:41→12:51)
--- NOTE | 2018-10-30 12:51 | NUR ---
Pharmacy TPN Dosing Note S: JOHN ROBBINS is a 78 year old M Currently receiving Central Continuous TPN started 10/28/18 B:Pertinent PMH: SBO Height: 5 feet, 10 inches Weight: 53.881393 kg Current diet: NPO LABS: Sodium: 139 Potassium: 4.0 Chloride: 101 Calcium: 8.0 Corrected Calcium: 9.36 Magnesium: 2.1 CO2: 32 SCr: 0.6 Glucose: 112-122 Albumin: 2.3 AST: 23 ALT: 11 TPN FORMULA: TPN TYPE: Central Continuous AMINO ACIDS: 60 gm DEXTROSE: 195 gm LIPIDS: 20 gm SODIUM CHLORIDE: 90 mEq SODIUM ACETATE: mEq SODIUM PHOSPHATE: mmol POTASSIUM CHLORIDE: 50 mEq POTASSIUM ACETATE: mEq POTASSIUM PHOSPHATE: 13.6 mmol MAGNESIUM: 10 mEq CALCIUM: 10 mEq INSULIN: units MULTIPLE VITAMIN: 10 ml TRACE ELEMENTS: 1 ml(s) TPN PLAN: Lytes appear stable. Increase in pt weight of 13 kg, different scale used today, appears factitious. Pt has cough, CXR with small effusion. Fluids at high end for pt weight, will decrease to 1250 ml in TPN. No other changes. BMP/phos/mg/trig in AM. R: Continue TPN ABOVE. Will monitor electrolytes, glucose, and tolerance to TPN. NATASHA MCNAMARA [facility], 10/30/18 [id number]
--- NOTE | 2018-10-30 15:07 | PDOC ---
PROGRESS NOTES Subjective Subjective no change, no flatus or stool Objective Objective Vital Signs Date Time Temp Pulse Resp B/P (MAP) Pulse Ox O2 Delivery O2 Flow Rate FiO2 10/30/18 10:59 97.4 96 20 118/72 (87) 96 Nasal Cannula 2.0 97.4 Intake and Output 10/30/18 07:00 Output Total 675 ml Balance -675 ml Output Urine Total 675 ml Physical Exam Abdomen: Soft (not very tender) Heart: Regular rate Extremities: No clubbing, No cyanosis General: Alert, Oriented X3 HEENT: Other (NG tube intact) Neuro: Normal speech, Strength at 5/5 X4 ext Psych/Mental Status: Mental status NL Plan Plan of Care Continue with NG decompression, nutrition Comment Review of Relevant I have reviewed the following items sherine (where applicable) has been applied. Labs Laboratory Tests Test 10/29/18 05:30 10/30/18 01:02 10/30/18 05:15 10/30/18 06:03 White Blood Count 11.1 x10^3/uL (4.0-11.0) Red Blood Count 3.25 x10^6/uL (4.30-5.70) Hemoglobin 10.5 g/dL (13.0-17.5) Hematocrit 31.3 % (39.0-53.0) Mean Corpuscular Volume 96 fL (79-100) Mean Corpuscular Hemoglobin 32 pg (25-35) Mean Corpuscular Hemoglobin Concent 34 g/dL (31-37) Red Cell Distribution Width 14.2 % (11.5-14.5) Platelet Count 186 x10^3/uL (140-400) Neutrophils (%) (Auto) 87 % (31-73) Lymphocytes (%) (Auto) 5 % (24-48) Monocytes (%) (Auto) 7 % (0-9) Eosinophils (%) (Auto) 0 % (0-3) Basophils (%) (Auto) 0 % (0-3) Neutrophils # (Auto) 9.7 x10^3uL (1.8-7.7) Lymphocytes # (Auto) 0.6 x10^3/uL (1.0-4.8) Monocytes # (Auto) 0.8 x10^3/uL (0.0-1.1) Eosinophils # (Auto) 0.0 x10^3/uL (0.0-0.7) Basophils # (Auto) 0.0 x10^3/uL (0.0-0.2) Sodium Level 139 mmol/L (136-145) 139 mmol/L (136-145) Potassium Level 3.7 mmol/L (3.5-5.1) 4.0 mmol/L (3.5-5.1) Chloride Level 100 mmol/L (98-107) 101 mmol/L (98-107) Carbon Dioxide Level 34 mmol/L (21-32) 32 mmol/L (21-32) Anion Gap 5 (6-14) 6 (6-14) Blood Urea Nitrogen 23 mg/dL (8-26) 19 mg/dL (8-26) Creatinine 0.6 mg/dL (0.7-1.3) 0.6 mg/dL (0.7-1.3) Estimated GFR (Cockcroft-Gault) 131.0 131.0 BUN/Creatinine Ratio 38 (6-20) Glucose Level 154 mg/dL (70-99) 112 mg/dL (70-99) Calcium Level 8.4 mg/dL (8.5-10.1) 8.0 mg/dL (8.5-10.1) Total Bilirubin 0.8 mg/dL (0.2-1.0) Aspartate Amino Transf (AST/SGOT) 8 U/L (15-37) Alanine Aminotransferase (ALT/SGPT) 11 U/L (16-63) Alkaline Phosphatase 45 U/L (46-116) Total Protein 5.6 g/dL (6.4-8.2) Albumin 2.3 g/dL (3.4-5.0) Albumin/Globulin Ratio 0.7 (1.0-1.7) Glucose (Fingerstick) 130 mg/dL (70-99) 122 mg/dL (70-99) Phosphorus Level 3.0 mg/dL (2.6-4.7) Magnesium Level 2.1 mg/dL (1.8-2.4) Thyroid Stimulating Hormone (TSH) 8.420 uIU/mL (0.358-3.74) Test 10/30/18 11:00 Urine Collection Type Unknown Urine Color Yellow Urine Clarity Clear Urine pH 6.5 Urine Specific [place] 1.015 Urine Protein Negative mg/dL (NEG-TRACE) Urine Glucose (UA) Negative mg/dL (NEG) Urine Ketones (Stick) Negative mg/dL (NEG) Urine Blood Negative (NEG) Urine Nitrite Negative (NEG) Urine Bilirubin Negative (NEG) Urine Urobilinogen Dipstick 1.0 mg/dL (0.2 mg/dL) Urine Leukocyte Esterase Negative (NEG) Urine RBC 3-5 /HPF (0-2) Urine WBC 11-20 /HPF (0-4) Urine Squamous Epithelial Cells Mod /LPF Urine Transitional Epithelial Cells Mod /LPF Urine Renal Epithelial Cells Occ /LPF Urine Bacteria 0 /HPF (0-FEW) Urine Hyaline Casts Moderate /HPF Urine Waxy Casts Occasional /HPF Urine Mucus Mod /LPF Laboratory Tests Test 10/30/18 01:02 10/30/18 05:15 10/30/18 06:03 10/30/18 11:00 Glucose (Fingerstick) 130 mg/dL (70-99) 122 mg/dL (70-99) Sodium Level 139 mmol/L (136-145) Potassium Level 4.0 mmol/L (3.5-5.1) Chloride Level 101 mmol/L (98-107) Carbon Dioxide Level 32 mmol/L (21-32) Anion Gap 6 (6-14) Blood Urea Nitrogen 19 mg/dL (8-26) Creatinine 0.6 mg/dL (0.7-1.3) Estimated GFR (Cockcroft-Gault) 131.0 Glucose Level 112 mg/dL (70-99) Calcium Level 8.0 mg/dL (8.5-10.1) Phosphorus Level 3.0 mg/dL (2.6-4.7) Magnesium Level 2.1 mg/dL (1.8-2.4) Thyroid Stimulating Hormone (TSH) 8.420 uIU/mL (0.358-3.74) Urine Collection Type Unknown Urine Color Yellow Urine Clarity Clear Urine pH 6.5 Urine Specific [place] 1.015 Urine Protein Negative mg/dL (NEG-TRACE) Urine Glucose (UA) Negative mg/dL (NEG) Urine Ketones (Stick) Negative mg/dL (NEG) Urine Blood Negative (NEG) Urine Nitrite Negative (NEG) Urine Bilirubin Negative (NEG) Urine Urobilinogen Dipstick 1.0 mg/dL (0.2 mg/dL) Urine Leukocyte Esterase Negative (NEG) Urine RBC 3-5 /HPF (0-2) Urine WBC 11-20 /HPF (0-4) Urine Squamous Epithelial Cells Mod /LPF Urine Transitional Epithelial Cells Mod /LPF Urine Renal Epithelial Cells Occ /LPF Urine Bacteria 0 /HPF (0-FEW) Urine Hyaline Casts Moderate /HPF Urine Waxy Casts Occasional /HPF Urine Mucus Mod /LPF Medications Current Medications Benzocaine (Hurricaine One) 1 spray 1X ONCE MM Last administered on 10/27/18 18:31; Start 10/27/18 at 18:30; Stop 10/27/18 at 18:31; Status DC Potassium Chloride/Sodium Chloride 1,000 ml @ 75 mls/hr [id number] IV Last administered on 10/28/18 08:41; Start 10/27/18 at 18:45; Stop 10/29/18 at 09:32 ; Status DC Throat Lozenges (Chloraseptic) 1 spray PRN Q2HR PRN PO SORE THROAT Last administered on 10/29/18 04:05; Start 10/27/18 at 18:45 Throat Lozenges (Cepacol Sore Throat Lozenge) 1 deniz PRN Q2HRS PRN PO SORE THROAT Last administered on 10/28/18 15:30; Start 10/27/18 at 18:45 Fentanyl Citrate (Fentanyl 2ml Vial) 50 mcg PRN Q3HRS PRN IV PAIN Last administered on 10/29/18 03:50; Start 10/27/18 at 19:15; Stop 10/29/18 at 11:30 ; Status DC Ondansetron HCl (Zofran) 4 mg PRN Q6HRS PRN IV NAUSEA/VOMITING; Start 10/27/18 at 19:45 Budesonide (Pulmicort) 0.5 mg RTBID NEB Last administered on 10/30/18 08:12; Start 10/27/18 at 20:30 Albuterol/ Ipratropium (Duoneb) 3 ml RTQID NEB Last administered on 10/30/18 12:41; Start 10/27/18 at 20:30 Enoxaparin Sodium (Lovenox 40mg Syringe) 40 mg Q24H SQ Last administered on 3/ 30/19at 09:27; Start 10/28/18 at 09:00 Methylprednisolone Sodium Succinate (SOLU-Medrol 40MG VIAL) 40 mg DAILY IV Last administered on 10/30/18 09:26; Start 10/28/18 at 09:00 Info (Tpn Per Pharmacy) 1 each PRN DAILY PRN MC SEE COMMENTS Last administered on 10/30/18 12:51; Start 10/28/18 at 11:45 Amino Acids/ Glycerin/ Electrolytes 1,000 ml @ 80 mls/hr [id number] IV Last administered on 10/28/18 12:25; Start 10/28/18 at 11:45; Stop 10/28/18 at 21:59 ; Status DC Lidocaine/Sodium Bicarbonate (Buffered Lidocaine 1%) 3 ml STK-MED ONCE .ROUTE ; Start 10/28/18 at 12:27; Stop 10/28/18 at 12:28; Status DC Lidocaine/Sodium Bicarbonate (Buffered Lidocaine 1%) 4 ml 1X ONCE INJ Last administered on 10/28/18at 13:11; Start 10/28/18 at 12:45; Stop 10/28/18 at 12:46 ; Status DC Sodium Chloride 90 meq/Potassium Chloride 50 meq/ Potassium Phosphate 13.6 mmol/ Magnesium Sulfate 10 meq/ Calcium Gluconate 10 meq/ Multivitamins 10 ml/Chromium / Copper/Manganese/ Seleni/Zn 1 ml/ Total Parenteral Nutrition/Amino Acids/ Dextrose/ Fat Emulsion Intravenous 1,512 ml @ 63 mls/hr TPN CONT IV Last administered on 10/28/18 22:08; Start 10/28/18 at 22:00; Stop 10/29/18 at 21:59 ; Status DC Morphine Sulfate (Morphine Sulfate) 4 mg PRN Q2HR PRN IV PAIN Last administered on 10/30/18 06:20; Start 10/29/18 at 11:30 Sodium Chloride 90 meq/Potassium Chloride 50 meq/ Potassium Phosphate 13.6 mmol/ Magnesium Sulfate 10 meq/ Calcium Gluconate 10 meq/ Multivitamins 10 ml/Chromium / Copper/Manganese/ Seleni/Zn 1 ml/ Total Parenteral Nutrition/Amino Acids/ Dextrose/ Fat Emulsion Intravenous 1,512 ml @ 63 mls/hr TPN CONT IV Last administered on 10/29/18at 22:32; Start 10/29/18 at 22:00; Stop 10/30/18 at 21:59 Albuterol Sulfate (Ventolin Neb Soln) 2.5 mg PRN Q4HRS PRN NEB SHORTNESS OF BREATH; Start 10/30/18 at 10:00 Sodium Chloride 90 meq/Potassium Chloride 50 meq/ Potassium Phosphate 13.6 mmol/ Magnesium Sulfate 10 meq/ Calcium Gluconate 10 meq/ Multivitamins 10 ml/Chromium / Copper/Manganese/ Seleni/Zn 1 ml/ Total Parenteral Nutrition/Amino Acids/ Dextrose/ Fat Emulsion Intravenous 1,248 ml @ 52 mls/hr TPN CONT IV ; Start at 22:00; Stop 10/31/18 at 21:59 Active Scripts Active Sertraline Hcl 25 Mg Tablet 50 Mg PO QHS 30 Days Magnesium Chloride 70 Mg Tablet. 64 Mg PO DAILY 30 Days Synthroid (Levothyroxine Sodium) 88 Mcg Tablet 88 Mcg PO DAILY06 30 Days Prednisone 20 Mg Tablet 20 Mg PO DAILY 30 Days Budesonide 0.5 Mg/2 Ml Ampul.neb 0.5 Mg NEB RTBID 30 Days Klor-Con 10 (Potassium Chloride) 10 Meq Tablet.er 1 Tab PO DAILY Lasix (Furosemide) 40 Mg Tablet 1 Tab PO DAILY Aspirin Ec (Aspirin) 81 Mg Tablet. 81 Mg PO DAILYWBKFT 30 Days Duoneb 0.5-3(2.5) Mg/3 Ml (Albuterol/Ipratropium) 3 Ml Ampul.neb 3 Ml NEB RTQID 30 Days Diltiazem 24HR Cd (Diltiazem Hcl) 120 Mg Cap.er.24h 120 Mg PO DAILY 30 Days Reported Hydrocodone-Apap 7.5-325 (Hydrocodone Bit/Acetaminophen) 1 Tab Tablet 1 Tab PO PRN Q6HRS PRN Omeprazole 40 Mg Capsule. 40 Mg PO DAILY Vitals/I & O Vital Sign - Last 24 Hours 10/29/18 10/29/18 10/29/18 10/29/18 15:14 18:53 19:45 19:55 Temp 98.1 98.1 Pulse 101 Resp 18 19 B/P (MAP) 124/79 (94) Pulse Ox 96 97 98 O2 Delivery Nasal Cannula Nasal Cannula Nasal Cannula Nasal Cannula O2 Flow Rate 3.0 3.0 3.0 3.0 10/29/18 10/29/18 10/29/18 10/29/18 19:56 20:00 22:31 23:59 Temp 98.4 98.4 Pulse 90 Resp 20 18 B/P (MAP) 107/64 (78) Pulse Ox 98 97 O2 Delivery Nasal Cannula Nasal Cannula Nasal Cannula Nasal Cannula O2 Flow Rate 3.0 3.0 3.0 3.0 10/30/18 10/30/18 10/30/18 10/30/18 03:59 06:20 06:50 07:00 Temp 98.0 97.6 98.0 97.6 Pulse 88 63 Resp 18 20 20 20 B/P (MAP) 119/70 (86) 103/61 (75) Pulse Ox 96 98 O2 Delivery Nasal Cannula Nasal Cannula Nasal Cannula Nasal Cannula O2 Flow Rate 2.0 3.0 3.0 2.0 10/30/18 10/30/18 10/30/18 08:00 08:13 10:59 Temp 97.4 97.4 Pulse 96 Resp 20 B/P (MAP) 118/72 (87) Pulse Ox 98 96 O2 Delivery Nasal Cannula Nasal Cannula Nasal Cannula O2 Flow Rate 2.0 2.0 2.0 Intake and Output 10/29/18 10/29/18 10/30/18 15:00 23:00 07:00 Output Total 400 ml 275 ml Balance -400 ml -275 ml Nutrition Consultation Dietary Evaluation: Recommendations by RD: PPN/TPN Comments: continue TPN until able to advance to po diet Expected Outcomes/Goals: diet advance, tolerance Interpretation of weight loss: >7.5% in 3 months Malnutrition Findings: Food and Nutrition Intake (Sev: <50% est energy req 5days Body Fat Depletion (Non Severe: Mild Depletion Weight Status: Emaciated JANE MARCH MD Oct 30, 2018 15:07
[2018-10-30 15:55] VITALS: BP 106/59
[2018-10-30 19:59] VITALS: BP 151/87
[2018-10-30] MEDS ORDERED: TOTAL PARENTERAL NUTRITION IV SCH ×10 (22:00)
[2018-10-30] MEDS ORDERED: AMINO ACID IV SCH ×10 (22:00)
[2018-10-30] MEDS ORDERED: DEXTROSE 70% IV SCH ×10 (22:00)
[2018-10-30] MEDS ORDERED: [UNRECOGNIZED DRUG - OTHER] IV SCH ×10 (22:00)
[2018-10-30 22:15] VITALS: BP 121/66
[2018-10-31] MEDS: MORPHINE SULFATE 4 MG/ML VIAL. IV PRN (00:14)
[2018-10-31 03:48] VITALS: BP 91/67
[2018-10-31 04:50] LABS: BASO % 0 % (0-3); EOS % 0 % (0-3); HEMATOCRIT 30.4 % (39.0-53.0); LYMPH # 0.7 x10^3/uL (1.0-4.8); LYMPH % 8 % (24-48); MEAN CORPUSCULAR HEMOGLOBIN 32 pg (25-35); MEAN CORPUSCULAR HGB CONC 33 g/dL (31-37); MEAN CORPUSCULAR VOLUME 97 fL (79-100); MONO # 0.6 x10^3/uL (0.0-1.1); MONO % 7 % (0-9); NEUT # 7.1 x10^3uL (1.8-7.7); NEUT % 85 % (31-73); PLATELET COUNT 198 x10^3/uL (140-400); RED BLOOD COUNT 3.12 x10^6/uL (4.30-5.70); RED CELL DISTRIBUTION WIDTH 14.3 % (11.5-14.5); WHITE BLOOD COUNT 8.4 x10^3/uL (4.0-11.0)
[2018-10-31 05:23] LABS: CALCIUM 8.1 mg/dL (8.5-10.1); CREATININE 0.5 mg/dL (0.7-1.3); GFR 161.7; MAGNESIUM 2.3 mg/dL (1.8-2.4); POTASSIUM 3.8 mmol/L (3.5-5.1)
[2018-10-31 07:00] VITALS: BP 133/81
[2018-10-31] MEDS: BUDESONIDE 0.5 MG/2 ML NEBU. NEB SCH ×2 (07:49→19:56)
[2018-10-31] MEDS: IPRATRPIUM/ALBUTEROL 0.5/2.5MG 3 ML NEBU. NEB SCH ×4 (07:49→19:56)
--- NOTE | 2018-10-31 08:55 | PDOC ---
SUBJECTIVE Subjective Pt states that he is feeling better this morning. Had bowel movement this morning; some difficulty. Urinating on his own now OBJECTIVE Vital Signs Vital Signs Date Time Temp Pulse Resp B/P (MAP) Pulse Ox O2 Delivery O2 Flow Rate FiO2 10/31/18 07:52 98 Room Air 10/31/18 07:51 98 Room Air 10/31/18 07:00 98.4 78 18 133/81 (98) 95 Nasal Cannula 3.0 98.4 10/31/18 03:48 98.2 75 20 91/67 (75) 98 Nasal Cannula 3.0 98.2 10/31/18 00:45 Nasal Cannula 3.0 10/31/18 00:14 Nasal Cannula 3.0 10/30/18 22:15 99.1 90 20 121/66 (84) 98 Nasal Cannula 3.0 99.1 10/30/18 21:22 Nasal Cannula 3.0 10/30/18 20:00 Nasal Cannula 3.0 10/30/18 19:59 98.2 83 22 151/87 (108) 93 Nasal Cannula 3.0 98.2 10/30/18 19:53 Room Air 10/30/18 19:53 Room Air 10/30/18 16:05 100 Nasal Cannula 2.0 10/30/18 15:55 98.3 54 18 106/59 (75) 97 Nasal Cannula 2.0 98.3 10/30/18 15:38 20 96 10/30/18 15:08 20 96 Nasal Cannula 2.0 10/30/18 10:59 97.4 96 20 118/72 (87) 96 Nasal Cannula 2.0 97.4 I & O Intake and Output 10/31/18 06:59 Intake Total 0 ml Output Total 1305 ml Balance -1305 ml Intake Oral 0 ml Output Urine Total 1305 ml # Voids 1 PHYSICAL EXAM Physical Exam GEN: NAD, AOx3, appears weak, cachectic HEENT: dry mucous membranes, EOMI, no scleral icterus/injection, NG in place Cardiac: RRR, no M/R/G Lungs: CTAB, regular breathing rate and effort Abd: firm, NTTP Ext: no erythema/edema LE bilaterally Neuro: CN2-12 GI ASSESSMENT/PLAN Assessment/Plan Pt is a 78yo CM admitted with recurrent SBO 1. Recurrent small-bowel obstruction- Sx following. NG in place with bowel movement this morning. Receiving TPN. 2. Leukocytosis- afebrile, resolved. Pt with abnormal U/A but may be dirty specimen, culture pending. Pt with productive cough and infiltrate vs atelectasis on CXR. Will start IV Levaquin for now 3. Severe protein malnutrition. 4. Pulmonary fibrosis. 5. Chronic obstructive pulmonary disease- currently receiving Pulmicort, Duonebs. Will add albuterol prn 6. Hypertension- pt was hypotensive but BP improving 7. Osteoarthritis. 8. Hypothyroidism- previously not at goal. Repeat TSH mildly elevated, possibly increase dose when starting po medications 9. Benign prostatic hypertrophy- with urinary retention yesterday, this has resolved. 10. Chronic diastolic congestive heart failure 11. Anemia- mild, CTM COMMENT Lab Laboratory Tests Test 10/30/18 11:00 10/31/18 04:00 10/31/18 06:11 Urine Collection Type Unknown Urine Color Yellow Urine Clarity Clear Urine pH 6.5 Urine Specific [place] 1.015 Urine Protein Negative mg/dL (NEG-TRACE) Urine Glucose (UA) Negative mg/dL (NEG) Urine Ketones (Stick) Negative mg/dL (NEG) Urine Blood Negative (NEG) Urine Nitrite Negative (NEG) Urine Bilirubin Negative (NEG) Urine Urobilinogen Dipstick 1.0 mg/dL (0.2 mg/dL) Urine Leukocyte Esterase Negative (NEG) Urine RBC 3-5 /HPF (0-2) Urine WBC 11-20 /HPF (0-4) Urine Squamous Epithelial Cells Mod /LPF Urine Transitional Epithelial Cells Mod /LPF Urine Renal Epithelial Cells Occ /LPF Urine Bacteria 0 /HPF (0-FEW) Urine Hyaline Casts Moderate /HPF Urine Waxy Casts Occasional /HPF Urine Mucus Mod /LPF White Blood Count 8.4 x10^3/uL (4.0-11.0) Red Blood Count 3.12 x10^6/uL (4.30-5.70) Hemoglobin 10.0 g/dL (13.0-17.5) Hematocrit 30.4 % (39.0-53.0) Mean Corpuscular Volume 97 fL (79-100) Mean Corpuscular Hemoglobin 32 pg (25-35) Mean Corpuscular Hemoglobin Concent 33 g/dL (31-37) Red Cell Distribution Width 14.3 % (11.5-14.5) Platelet Count 198 x10^3/uL (140-400) Neutrophils (%) (Auto) 85 % (31-73) Lymphocytes (%) (Auto) 8 % (24-48) Monocytes (%) (Auto) 7 % (0-9) Eosinophils (%) (Auto) 0 % (0-3) Basophils (%) (Auto) 0 % (0-3) Neutrophils # (Auto) 7.1 x10^3uL (1.8-7.7) Lymphocytes # (Auto) 0.7 x10^3/uL (1.0-4.8) Monocytes # (Auto) 0.6 x10^3/uL (0.0-1.1) Eosinophils # (Auto) 0.0 x10^3/uL (0.0-0.7) Basophils # (Auto) 0.0 x10^3/uL (0.0-0.2) Sodium Level 138 mmol/L (136-145) Potassium Level 3.8 mmol/L (3.5-5.1) Chloride Level 103 mmol/L (98-107) Carbon Dioxide Level 30 mmol/L (21-32) Anion Gap 5 (6-14) Blood Urea Nitrogen 22 mg/dL (8-26) Creatinine 0.5 mg/dL (0.7-1.3) Estimated GFR (Cockcroft-Gault) 161.7 Glucose Level 116 mg/dL (70-99) Calcium Level 8.1 mg/dL (8.5-10.1) Phosphorus Level 3.0 mg/dL (2.6-4.7) Magnesium Level 2.3 mg/dL (1.8-2.4) Triglycerides Level 86 mg/dL (0-150) Glucose (Fingerstick) 121 mg/dL (70-99) Nutrition Consultation Dietary Evaluation: Recommendations by RD: PPN/TPN Comments: continue TPN until able to advance to po diet Expected Outcomes/Goals: diet advance, tolerance Interpretation of weight loss: >7.5% in 3 months Malnutrition Findings: Food and Nutrition Intake (Sev: <50% est energy req 5days Body Fat Depletion (Non Severe: Mild Depletion Weight Status: Emaciated POLLY ARCHIBALD MD Oct 31, 2018 08:55
[2018-10-31] MEDS ORDERED: FUROSEMIDE 20 MG/2 ML VIAL. IVP ONE (09:00)
[2018-10-31] MEDS: ENOXAPARIN 40 MG/0.4 ML SYRINGE. SQ SCH (09:00)
[2018-10-31] MEDS: methylPREDNISolone SOD SUCC PF 40 MG/ML VIAL. IV SCH (09:01)
[2018-10-31 10:49] VITALS: BP 96/62
[2018-10-31] MEDS: TPN PER PHARMACY MC PRN (11:03)
--- NOTE | 2018-10-31 11:04 | NUR ---
Pharmacy TPN Dosing Note S: JOHN ROBBINS is a 78 year old M Currently receiving Central Continuous TPN started 10/28/18 B:Pertinent PMH: SBO Height: 5 feet, 10 inches Weight: 52.2 kg Current diet: NPO LABS: Sodium: 138 Potassium: 3.8 Chloride: 103 Calcium: 8.1 Corrected Calcium: 9.46 Magnesium: 2.3 CO2: 30 SCr: 0.5 Glucose: 112, 116 Albumin: 2.3 AST: 23 ALT: 11 TPN FORMULA: TPN TYPE: Central Continuous AMINO ACIDS: 60 gm DEXTROSE: 195 gm LIPIDS: 20 gm SODIUM CHLORIDE: 90 mEq POTASSIUM CHLORIDE: 50 mEq POTASSIUM PHOSPHATE: 13.6 mmol MAGNESIUM: 10 mEq CALCIUM: 10 mEq MULTIPLE VITAMIN: 10 ml TRACE ELEMENTS: 1 ml TPN PLAN: -Electrolytes appear WNL and stable, continue same TPN. -BMP, mag, phos tomorrow. R: Continue TPN @ current rate and above formula. Will monitor electrolytes, glucose, and tolerance to TPN. TERRIE LLANOS, [facility], 10/31/18 [id number]
--- NOTE | 2018-10-31 13:01 | PDOC ---
PROGRESS NOTES Subjective Subjective states he had a stool, not much pain, doesn't like morphine, "too strong" Objective Objective Vital Signs Date Time Temp Pulse Resp B/P (MAP) Pulse Ox O2 Delivery O2 Flow Rate FiO2 10/31/18 11:35 Room Air 10/31/18 10:49 98.2 81 18 96/62 (73) 98 3.0 98.2 Intake and Output 10/31/18 07:00 Intake Total 0 ml Output Total 1305 ml Balance -1305 ml Intake Oral 0 ml Output Urine Total 1305 ml # Voids 1 Physical Exam Abdomen: Soft (mildly tender with palpation) Extremities: No clubbing, No cyanosis General: Alert, Oriented X3 HEENT: Atraumatic Lungs: Clear to auscultation MUSCULOSKELETAL: No joint tenderness, No deformity Neuro: Normal speech Psych/Mental Status: Mental status NL Assessment Assessment ileus vs SBO Plan Plan of Care NG trial Comment Review of Relevant I have reviewed the following items sherine (where applicable) has been applied. Labs Laboratory Tests Test 10/30/18 01:02 10/30/18 05:15 10/30/18 06:03 10/30/18 11:00 Glucose (Fingerstick) 130 mg/dL (70-99) 122 mg/dL (70-99) Sodium Level 139 mmol/L (136-145) Potassium Level 4.0 mmol/L (3.5-5.1) Chloride Level 101 mmol/L (98-107) Carbon Dioxide Level 32 mmol/L (21-32) Anion Gap 6 (6-14) Blood Urea Nitrogen 19 mg/dL (8-26) Creatinine 0.6 mg/dL (0.7-1.3) Estimated GFR (Cockcroft-Gault) 131.0 Glucose Level 112 mg/dL (70-99) Calcium Level 8.0 mg/dL (8.5-10.1) Phosphorus Level 3.0 mg/dL (2.6-4.7) Magnesium Level 2.1 mg/dL (1.8-2.4) Thyroid Stimulating Hormone (TSH) 8.420 uIU/mL (0.358-3.74) Urine Collection Type Unknown Urine Color Yellow Urine Clarity Clear Urine pH 6.5 Urine Specific [place] 1.015 Urine Protein Negative mg/dL (NEG-TRACE) Urine Glucose (UA) Negative mg/dL (NEG) Urine Ketones (Stick) Negative mg/dL (NEG) Urine Blood Negative (NEG) Urine Nitrite Negative (NEG) Urine Bilirubin Negative (NEG) Urine Urobilinogen Dipstick 1.0 mg/dL (0.2 mg/dL) Urine Leukocyte Esterase Negative (NEG) Urine RBC 3-5 /HPF (0-2) Urine WBC 11-20 /HPF (0-4) Urine Squamous Epithelial Cells Mod /LPF Urine Transitional Epithelial Cells Mod /LPF Urine Renal Epithelial Cells Occ /LPF Urine Bacteria 0 /HPF (0-FEW) Urine Hyaline Casts Moderate /HPF Urine Waxy Casts Occasional /HPF Urine Mucus Mod /LPF Test 10/31/18 04:00 10/31/18 06:11 White Blood Count 8.4 x10^3/uL (4.0-11.0) Red Blood Count 3.12 x10^6/uL (4.30-5.70) Hemoglobin 10.0 g/dL (13.0-17.5) Hematocrit 30.4 % (39.0-53.0) Mean Corpuscular Volume 97 fL (79-100) Mean Corpuscular Hemoglobin 32 pg (25-35) Mean Corpuscular Hemoglobin Concent 33 g/dL (31-37) Red Cell Distribution Width 14.3 % (11.5-14.5) Platelet Count 198 x10^3/uL (140-400) Neutrophils (%) (Auto) 85 % (31-73) Lymphocytes (%) (Auto) 8 % (24-48) Monocytes (%) (Auto) 7 % (0-9) Eosinophils (%) (Auto) 0 % (0-3) Basophils (%) (Auto) 0 % (0-3) Neutrophils # (Auto) 7.1 x10^3uL (1.8-7.7) Lymphocytes # (Auto) 0.7 x10^3/uL (1.0-4.8) Monocytes # (Auto) 0.6 x10^3/uL (0.0-1.1) Eosinophils # (Auto) 0.0 x10^3/uL (0.0-0.7) Basophils # (Auto) 0.0 x10^3/uL (0.0-0.2) Sodium Level 138 mmol/L (136-145) Potassium Level 3.8 mmol/L (3.5-5.1) Chloride Level 103 mmol/L (98-107) Carbon Dioxide Level 30 mmol/L (21-32) Anion Gap 5 (6-14) Blood Urea Nitrogen 22 mg/dL (8-26) Creatinine 0.5 mg/dL (0.7-1.3) Estimated GFR (Cockcroft-Gault) 161.7 Glucose Level 116 mg/dL (70-99) Calcium Level 8.1 mg/dL (8.5-10.1) Phosphorus Level 3.0 mg/dL (2.6-4.7) Magnesium Level 2.3 mg/dL (1.8-2.4) Triglycerides Level 86 mg/dL (0-150) Glucose (Fingerstick) 121 mg/dL (70-99) Laboratory Tests Test 10/31/18 04:00 10/31/18 06:11 White Blood Count 8.4 x10^3/uL (4.0-11.0) Red Blood Count 3.12 x10^6/uL (4.30-5.70) Hemoglobin 10.0 g/dL (13.0-17.5) Hematocrit 30.4 % (39.0-53.0) Mean Corpuscular Volume 97 fL (79-100) Mean Corpuscular Hemoglobin 32 pg (25-35) Mean Corpuscular Hemoglobin Concent 33 g/dL (31-37) Red Cell Distribution Width 14.3 % (11.5-14.5) Platelet Count 198 x10^3/uL (140-400) Neutrophils (%) (Auto) 85 % (31-73) Lymphocytes (%) (Auto) 8 % (24-48) Monocytes (%) (Auto) 7 % (0-9) Eosinophils (%) (Auto) 0 % (0-3) Basophils (%) (Auto) 0 % (0-3) Neutrophils # (Auto) 7.1 x10^3uL (1.8-7.7) Lymphocytes # (Auto) 0.7 x10^3/uL (1.0-4.8) Monocytes # (Auto) 0.6 x10^3/uL (0.0-1.1) Eosinophils # (Auto) 0.0 x10^3/uL (0.0-0.7) Basophils # (Auto) 0.0 x10^3/uL (0.0-0.2) Sodium Level 138 mmol/L (136-145) Potassium Level 3.8 mmol/L (3.5-5.1) Chloride Level 103 mmol/L (98-107) Carbon Dioxide Level 30 mmol/L (21-32) Anion Gap 5 (6-14) Blood Urea Nitrogen 22 mg/dL (8-26) Creatinine 0.5 mg/dL (0.7-1.3) Estimated GFR (Cockcroft-Gault) 161.7 Glucose Level 116 mg/dL (70-99) Calcium Level 8.1 mg/dL (8.5-10.1) Phosphorus Level 3.0 mg/dL (2.6-4.7) Magnesium Level 2.3 mg/dL (1.8-2.4) Triglycerides Level 86 mg/dL (0-150) Glucose (Fingerstick) 121 mg/dL (70-99) Medications Current Medications Benzocaine (Hurricaine One) 1 spray 1X ONCE MM Last administered on 10/27/18 18:31; Start 10/27/18 at 18:30; Stop 10/27/18 at 18:31; Status DC Potassium Chloride/Sodium Chloride 1,000 ml @ 75 mls/hr [id number] IV Last administered on 10/28/18 08:41; Start 10/27/18 at 18:45; Stop 10/29/18 at 09:32 ; Status DC Throat Lozenges (Chloraseptic) 1 spray PRN Q2HR PRN PO SORE THROAT Last administered on 10/29/18 04:05; Start 10/27/18 at 18:45 Throat Lozenges (Cepacol Sore Throat Lozenge) 1 deniz PRN Q2HRS PRN PO SORE THROAT Last administered on 10/28/18 15:30; Start 10/27/18 at 18:45 Fentanyl Citrate (Fentanyl 2ml Vial) 50 mcg PRN Q3HRS PRN IV PAIN Last administered on 10/29/18 03:50; Start 10/27/18 at 19:15; Stop 10/29/18 at 11:30 ; Status DC Ondansetron HCl (Zofran) 4 mg PRN Q6HRS PRN IV NAUSEA/VOMITING; Start 10/27/18 at 19:45 Budesonide (Pulmicort) 0.5 mg RTBID NEB Last administered on 10/31/18at 07:49; Start 10/27/18 at 20:30 Albuterol/ Ipratropium (Duoneb) 3 ml RTQID NEB Last administered on 10/31/18at 11:33; Start 10/27/18 at 20:30 Enoxaparin Sodium (Lovenox 40mg Syringe) 40 mg Q24H SQ Last administered on at 09:00; Start 10/28/18 at 09:00 Methylprednisolone Sodium Succinate (SOLU-Medrol 40MG VIAL) 40 mg DAILY IV Last administered on 10/31/18 09:01; Start 10/28/18 at 09:00 Info (Tpn Per Pharmacy) 1 each PRN DAILY PRN MC SEE COMMENTS Last administered on 10/31/18at 11:03; Start 10/28/18 at 11:45 Amino Acids/ Glycerin/ Electrolytes 1,000 ml @ 80 mls/hr [id number] IV Last administered on 10/28/18at 12:25; Start 10/28/18 at 11:45; Stop 10/28/18 at 21:59 ; Status DC Lidocaine/Sodium Bicarbonate (Buffered Lidocaine 1%) 3 ml STK-MED ONCE .ROUTE ; Start 10/28/18 at 12:27; Stop 10/28/18 at 12:28; Status DC Lidocaine/Sodium Bicarbonate (Buffered Lidocaine 1%) 4 ml 1X ONCE INJ Last administered on 10/28/18at 13:11; Start 10/28/18 at 12:45; Stop 10/28/18 at 12:46 ; Status DC Sodium Chloride 90 meq/Potassium Chloride 50 meq/ Potassium Phosphate 13.6 mmol/ Magnesium Sulfate 10 meq/ Calcium Gluconate 10 meq/ Multivitamins 10 ml/Chromium / Copper/Manganese/ Seleni/Zn 1 ml/ Total Parenteral Nutrition/Amino Acids/ Dextrose/ Fat Emulsion Intravenous 1,512 ml @ 63 mls/hr TPN CONT IV Last administered on 10/28/18at 22:08; Start 10/28/18 at 22:00; Stop 10/29/18 at 21:59 ; Status DC Morphine Sulfate (Morphine Sulfate) 4 mg PRN Q2HR PRN IV PAIN Last administered on 10/31/18at 00:14; Start 10/29/18 at 11:30 Sodium Chloride 90 meq/Potassium Chloride 50 meq/ Potassium Phosphate 13.6 mmol/ Magnesium Sulfate 10 meq/ Calcium Gluconate 10 meq/ Multivitamins 10 ml/Chromium / Copper/Manganese/ Seleni/Zn 1 ml/ Total Parenteral Nutrition/Amino Acids/ Dextrose/ Fat Emulsion Intravenous 1,512 ml @ 63 mls/hr TPN CONT IV Last administered on 10/29/18at 22:32; Start 10/29/18 at 22:00; Stop 10/30/18 at 21:59 ; Status DC Albuterol Sulfate (Ventolin Neb Soln) 2.5 mg PRN Q4HRS PRN NEB SHORTNESS OF BREATH; Start 10/30/18 at 10:00 Sodium Chloride 90 meq/Potassium Chloride 50 meq/ Potassium Phosphate 13.6 mmol/ Magnesium Sulfate 10 meq/ Calcium Gluconate 10 meq/ Multivitamins 10 ml/Chromium / Copper/Manganese/ Seleni/Zn 1 ml/ Total Parenteral Nutrition/Amino Acids/ Dextrose/ Fat Emulsion Intravenous 1,248 ml @ 52 mls/hr TPN CONT IV Last administered on 10/30/18at 22:48; Start 10/30/18 at 22:00; Stop 10/31/18 at 21:59 Levofloxacin/ Dextrose 100 ml @ 100 mls/hr Q24H IV Last administered on at 09:34; Start 10/31/18 at 09:00 Furosemide (Lasix) 20 mg 1X ONCE IVP Last administered on 10/31/18at 09:08; Start 10/31/18 at 09:00; Stop 10/31/18 at 09:01; Status DC Sodium Chloride 90 meq/Potassium Chloride 50 meq/ Potassium Phosphate 13.6 mmol/ Magnesium Sulfate 10 meq/ Calcium Gluconate 10 meq/ Multivitamins 10 ml/Chromium / Copper/Manganese/ Seleni/Zn 1 ml/ Total Parenteral Nutrition/Amino Acids/ Dextrose/ Fat Emulsion Intravenous 1,248 ml @ 52 mls/hr TPN CONT IV ; Start at 22:00; Stop 11/01/18 at 21:59 Active Scripts Active Sertraline Hcl 25 Mg Tablet 50 Mg PO QHS 30 Days Magnesium Chloride 70 Mg Tablet.dr 64 Mg PO DAILY 30 Days Synthroid (Levothyroxine Sodium) 88 Mcg Tablet 88 Mcg PO DAILY06 30 Days Prednisone 20 Mg Tablet 20 Mg PO DAILY 30 Days Budesonide 0.5 Mg/2 Ml Ampul.neb 0.5 Mg NEB RTBID 30 Days Klor-Con 10 (Potassium Chloride) 10 Meq Tablet.er 1 Tab PO DAILY Lasix (Furosemide) 40 Mg Tablet 1 Tab PO DAILY Aspirin Ec (Aspirin) 81 Mg Tablet.dr 81 Mg PO DAILYWBKFT 30 Days Duoneb 0.5-3(2.5) Mg/3 Ml (Albuterol/Ipratropium) 3 Ml Ampul.neb 3 Ml NEB RTQID 30 Days Diltiazem 24HR Cd (Diltiazem Hcl) 120 Mg Cap.er.24h 120 Mg PO DAILY 30 Days Reported Hydrocodone-Apap 7.5-325 (Hydrocodone Bit/Acetaminophen) 1 Tab Tablet 1 Tab PO PRN Q6HRS PRN Omeprazole 40 Mg Capsule. 40 Mg PO DAILY Vitals/I & O Vital Sign - Last 24 Hours 10/30/18 10/30/18 10/30/18 10/30/18 15:08 15:38 15:55 16:05 Temp 98.3 98.3 Pulse 54 Resp 20 20 18 B/P (MAP) 106/59 (75) Pulse Ox 96 96 97 100 O2 Delivery Nasal Cannula Nasal Cannula Nasal Cannula O2 Flow Rate 2.0 2.0 2.0 10/30/18 10/30/18 10/30/18 10/30/18 19:53 19:53 19:59 20:00 Temp 98.2 98.2 Pulse 83 Resp 22 B/P (MAP) 151/87 (108) Pulse Ox 93 O2 Delivery Room Air Room Air Nasal Cannula Nasal Cannula O2 Flow Rate 3.0 3.0 10/30/18 10/30/18 10/31/18 10/31/18 21:22 22:15 00:14 00:45 Temp 99.1 99.1 Pulse 90 Resp 20 B/P (MAP) 121/66 (84) Pulse Ox 98 O2 Delivery Nasal Cannula Nasal Cannula Nasal Cannula Nasal Cannula O2 Flow Rate 3.0 3.0 3.0 3.0 10/31/18 10/31/18 10/31/18 10/31/18 03:48 07:00 07:51 07:52 Temp 98.2 98.4 98.2 98.4 Pulse 75 78 Resp 20 18 B/P (MAP) 91/67 (75) 133/81 (98) Pulse Ox 98 95 98 98 O2 Delivery Nasal Cannula Nasal Cannula Room Air Room Air O2 Flow Rate 3.0 3.0 10/31/18 10/31/18 10/31/18 08:00 10:49 11:35 Temp 98.2 98.2 Pulse 81 Resp 18 B/P (MAP) 96/62 (73) Pulse Ox 98 O2 Delivery Nasal Cannula Nasal Cannula Room Air O2 Flow Rate 3.0 3.0 Intake and Output 10/30/18 10/30/18 10/31/18 15:00 23:00 07:00 Intake Total 0 ml Output Total 1080 ml 225 ml Balance -1080 ml 0 ml -225 ml Nutrition Consultation Dietary Evaluation: Recommendations by RD: PPN/TPN Comments: continue TPN until able to advance to po diet Expected Outcomes/Goals: diet advance, tolerance Interpretation of weight loss: >7.5% in 3 months Malnutrition Findings: Food and Nutrition Intake (Sev: <50% est energy req 5days Body Fat Depletion (Non Severe: Mild Depletion Weight Status: Emaciated JANE MARCH MD Oct 31, 2018 13:01
[2018-10-31 15:30] VITALS: BP 113/76
[2018-10-31] MEDS: fentaNYL PF VIAL 100 MCG/2 ML VIAL IV PRN ×2 (15:34→20:59)
[2018-10-31 19:00] VITALS: BP 124/79
[2018-10-31] MEDS ORDERED: DEXTROSE 70% IV SCH ×10 (22:00)
[2018-10-31] MEDS ORDERED: [UNRECOGNIZED DRUG - OTHER] IV SCH ×10 (22:00)
[2018-10-31] MEDS ORDERED: AMINO ACID IV SCH ×10 (22:00)
[2018-10-31] MEDS ORDERED: TOTAL PARENTERAL NUTRITION IV SCH ×10 (22:00)
[2018-10-31 22:49] VITALS: BP 102/65
[2018-11-01] MEDS: fentaNYL PF VIAL 100 MCG/2 ML VIAL IV PRN ×6 (00:46→22:33)
[2018-11-01 01:07] LABS: HEMOGLOBIN A1C 5.9 % (4.8-5.6)
[2018-11-01 03:00] VITALS: BP 118/70
[2018-11-01 05:45] LABS: CALCIUM 8.2 mg/dL (8.5-10.1); CREATININE 0.6 mg/dL (0.7-1.3); MAGNESIUM 2.2 mg/dL (1.8-2.4); PHOSPHORUS 3.1 mg/dL (2.6-4.7); POTASSIUM 3.6 mmol/L (3.5-5.1)
[2018-11-01 07:00] VITALS: BP 104/80
--- NOTE | 2018-11-01 08:35 | PDOC ---
REMBERTO WINSTON CONFIGURATION MANAGEMENT ANALYST 11/01/18 0835: SURGICAL PROGRESS NOTE Subjective ng clamped since yesterday no emesis Stool Thursday Vital Signs Vital Signs Date Time Temp Pulse Resp B/P (MAP) Pulse Ox O2 Delivery O2 Flow Rate FiO2 11/01/18 07:00 97.9 100 18 104/80 (88) 93 Room Air 97.9 11/01/18 05:00 3.0 I&O Intake and Output 11/01/18 07:00 Output Total 2250 ml Balance -2250 ml Output Urine Total 2250 ml # Bowel Movements 1 General: Alert, Oriented X3, Cooperative, No acute distress HEENT: Other (NG in place) Abdomen: Soft, Other (ND) Labs Laboratory Tests Test 10/30/18 11:00 10/31/18 04:00 10/31/18 06:11 10/31/18 19:11 Urine Collection Type Unknown Urine Color Yellow Urine Clarity Clear Urine pH 6.5 Urine Specific [place] 1.015 Urine Protein Negative mg/dL (NEG-TRACE) Urine Glucose (UA) Negative mg/dL (NEG) Urine Ketones (Stick) Negative mg/dL (NEG) Urine Blood Negative (NEG) Urine Nitrite Negative (NEG) Urine Bilirubin Negative (NEG) Urine Urobilinogen Dipstick 1.0 mg/dL (0.2 mg/dL) Urine Leukocyte Esterase Negative (NEG) Urine RBC 3-5 /HPF (0-2) Urine WBC 11-20 /HPF (0-4) Urine Squamous Epithelial Cells Mod /LPF Urine Transitional Epithelial Cells Mod /LPF Urine Renal Epithelial Cells Occ /LPF Urine Bacteria 0 /HPF (0-FEW) Urine Hyaline Casts Moderate /HPF Urine Waxy Casts Occasional /HPF Urine Mucus Mod /LPF White Blood Count 8.4 x10^3/uL (4.0-11.0) Red Blood Count 3.12 x10^6/uL (4.30-5.70) Hemoglobin 10.0 g/dL (13.0-17.5) Hematocrit 30.4 % (39.0-53.0) Mean Corpuscular Volume 97 fL (79-100) Mean Corpuscular Hemoglobin 32 pg (25-35) Mean Corpuscular Hemoglobin Concent 33 g/dL (31-37) Red Cell Distribution Width 14.3 % (11.5-14.5) Platelet Count 198 x10^3/uL (140-400) Neutrophils (%) (Auto) 85 % (31-73) Lymphocytes (%) (Auto) 8 % (24-48) Monocytes (%) (Auto) 7 % (0-9) Eosinophils (%) (Auto) 0 % (0-3) Basophils (%) (Auto) 0 % (0-3) Neutrophils # (Auto) 7.1 x10^3uL (1.8-7.7) Lymphocytes # (Auto) 0.7 x10^3/uL (1.0-4.8) Monocytes # (Auto) 0.6 x10^3/uL (0.0-1.1) Eosinophils # (Auto) 0.0 x10^3/uL (0.0-0.7) Basophils # (Auto) 0.0 x10^3/uL (0.0-0.2) Sodium Level 138 mmol/L (136-145) Potassium Level 3.8 mmol/L (3.5-5.1) Chloride Level 103 mmol/L (98-107) Carbon Dioxide Level 30 mmol/L (21-32) Anion Gap 5 (6-14) Blood Urea Nitrogen 22 mg/dL (8-26) Creatinine 0.5 mg/dL (0.7-1.3) Estimated GFR (Cockcroft-Gault) 161.7 Glucose Level 116 mg/dL (70-99) Calcium Level 8.1 mg/dL (8.5-10.1) Phosphorus Level 3.0 mg/dL (2.6-4.7) Magnesium Level 2.3 mg/dL (1.8-2.4) Triglycerides Level 86 mg/dL (0-150) Glucose (Fingerstick) 121 mg/dL (70-99) 154 mg/dL (70-99) Test 11/01/18 00:35 11/01/18 04:20 11/01/18 05:53 Glucose (Fingerstick) 128 mg/dL (70-99) 137 mg/dL (70-99) Sodium Level 143 mmol/L (136-145) Potassium Level 3.6 mmol/L (3.5-5.1) Chloride Level 107 mmol/L (98-107) Carbon Dioxide Level 29 mmol/L (21-32) Anion Gap 7 (6-14) Blood Urea Nitrogen 23 mg/dL (8-26) Creatinine 0.6 mg/dL (0.7-1.3) Estimated GFR (Cockcroft-Gault) 131.0 Glucose Level 148 mg/dL (70-99) Calcium Level 8.2 mg/dL (8.5-10.1) Phosphorus Level 3.1 mg/dL (2.6-4.7) Magnesium Level 2.2 mg/dL (1.8-2.4) Laboratory Tests Test 10/31/18 19:11 11/01/18 00:35 11/01/18 04:20 11/01/18 05:53 Glucose (Fingerstick) 154 mg/dL (70-99) 128 mg/dL (70-99) 137 mg/dL (70-99) Sodium Level 143 mmol/L (136-145) Potassium Level 3.6 mmol/L (3.5-5.1) Chloride Level 107 mmol/L (98-107) Carbon Dioxide Level 29 mmol/L (21-32) Anion Gap 7 (6-14) Blood Urea Nitrogen 23 mg/dL (8-26) Creatinine 0.6 mg/dL (0.7-1.3) Estimated GFR (Cockcroft-Gault) 131.0 Glucose Level 148 mg/dL (70-99) Calcium Level 8.2 mg/dL (8.5-10.1) Phosphorus Level 3.1 mg/dL (2.6-4.7) Magnesium Level 2.2 mg/dL (1.8-2.4) Problem List sbo try some clears, will keep NG clamped, possible dc later today if does well with clears SHAKEEL SOMMER MD 11/01/18 1654: SURGICAL PROGRESS NOTE Assessment/Plan had RN d/c NG continue REMBERTO Silva CONFIGURATION MANAGEMENT ANALYST Nov 01, 2018 08:35 SHAKEEL SOMMER MD Nov 01, 2018 16:54
[2018-11-01] MEDS: methylPREDNISolone SOD SUCC PF 40 MG/ML VIAL. IV SCH (09:04)
[2018-11-01] MEDS: ENOXAPARIN 40 MG/0.4 ML SYRINGE. SQ SCH (09:04)
[2018-11-01] MEDS: IPRATRPIUM/ALBUTEROL 0.5/2.5MG 3 ML NEBU. NEB SCH ×4 (09:13→20:00)
[2018-11-01] MEDS: BUDESONIDE 0.5 MG/2 ML NEBU. NEB SCH ×2 (09:13→19:23)
[2018-11-01] MEDS: TPN PER PHARMACY MC PRN ×3 (10:46→14:02)
[2018-11-01 11:00] VITALS: BP 87/56
--- NOTE | 2018-11-01 11:30 | PDOC ---
PROGRESS NOTES Subjective Subjective Patient NG tube clamped. Patient had BM. Clear liquid trial today per surgery. Objective Objective Vital Signs Date Time Temp Pulse Resp B/P (MAP) Pulse Ox O2 Delivery O2 Flow Rate FiO2 11/01/18 11:00 97.6 74 18 87/56 (66) 92 Nasal Cannula 3.0 97.6 Intake and Output 11/01/18 06:59 Output Total 2250 ml Balance -2250 ml Output Urine Total 2250 ml # Bowel Movements 1 Physical Exam Abdomen: Other (continued hypoactive bowel sounds.) Heart: Regular rate Extremities: No edema General: Alert Lungs: Other (coarse breath sounds in bases.) Assessment Assessment 1. Recurrent small-bowel obstruction. 2. Leukocytosis. 3. Severe protein malnutrition. 4. Pulmonary fibrosis. 5. Chronic obstructive pulmonary disease. 6. Hypertension, now hypotensive. 7. Osteoarthritis. 8. Hypothyroidism. 9. Benign prostatic hypertrophy. 10. Chronic diastolic congestive heart failure. 11. Severe protein malnutrition. Plan Plan of Care NG tube decompression. Continue TPN. Feeding Trial today Encouraged ambulation and activity. Comment Review of Relevant I have reviewed the following items sherine (where applicable) has been applied. Labs Laboratory Tests Test 10/31/18 04:00 10/31/18 06:11 10/31/18 19:11 11/01/18 00:35 White Blood Count 8.4 x10^3/uL (4.0-11.0) Red Blood Count 3.12 x10^6/uL (4.30-5.70) Hemoglobin 10.0 g/dL (13.0-17.5) Hematocrit 30.4 % (39.0-53.0) Mean Corpuscular Volume 97 fL (79-100) Mean Corpuscular Hemoglobin 32 pg (25-35) Mean Corpuscular Hemoglobin Concent 33 g/dL (31-37) Red Cell Distribution Width 14.3 % (11.5-14.5) Platelet Count 198 x10^3/uL (140-400) Neutrophils (%) (Auto) 85 % (31-73) Lymphocytes (%) (Auto) 8 % (24-48) Monocytes (%) (Auto) 7 % (0-9) Eosinophils (%) (Auto) 0 % (0-3) Basophils (%) (Auto) 0 % (0-3) Neutrophils # (Auto) 7.1 x10^3uL (1.8-7.7) Lymphocytes # (Auto) 0.7 x10^3/uL (1.0-4.8) Monocytes # (Auto) 0.6 x10^3/uL (0.0-1.1) Eosinophils # (Auto) 0.0 x10^3/uL (0.0-0.7) Basophils # (Auto) 0.0 x10^3/uL (0.0-0.2) Sodium Level 138 mmol/L (136-145) Potassium Level 3.8 mmol/L (3.5-5.1) Chloride Level 103 mmol/L (98-107) Carbon Dioxide Level 30 mmol/L (21-32) Anion Gap 5 (6-14) Blood Urea Nitrogen 22 mg/dL (8-26) Creatinine 0.5 mg/dL (0.7-1.3) Estimated GFR (Cockcroft-Gault) 161.7 Glucose Level 116 mg/dL (70-99) Calcium Level 8.1 mg/dL (8.5-10.1) Phosphorus Level 3.0 mg/dL (2.6-4.7) Magnesium Level 2.3 mg/dL (1.8-2.4) Triglycerides Level 86 mg/dL (0-150) Glucose (Fingerstick) 121 mg/dL (70-99) 154 mg/dL (70-99) 128 mg/dL (70-99) Test 11/01/18 04:20 11/01/18 05:53 Sodium Level 143 mmol/L (136-145) Potassium Level 3.6 mmol/L (3.5-5.1) Chloride Level 107 mmol/L (98-107) Carbon Dioxide Level 29 mmol/L (21-32) Anion Gap 7 (6-14) Blood Urea Nitrogen 23 mg/dL (8-26) Creatinine 0.6 mg/dL (0.7-1.3) Estimated GFR (Cockcroft-Gault) 131.0 Glucose Level 148 mg/dL (70-99) Calcium Level 8.2 mg/dL (8.5-10.1) Phosphorus Level 3.1 mg/dL (2.6-4.7) Magnesium Level 2.2 mg/dL (1.8-2.4) Glucose (Fingerstick) 137 mg/dL (70-99) Laboratory Tests Test 10/31/18 19:11 11/01/18 00:35 11/01/18 04:20 11/01/18 05:53 Glucose (Fingerstick) 154 mg/dL (70-99) 128 mg/dL (70-99) 137 mg/dL (70-99) Sodium Level 143 mmol/L (136-145) Potassium Level 3.6 mmol/L (3.5-5.1) Chloride Level 107 mmol/L (98-107) Carbon Dioxide Level 29 mmol/L (21-32) Anion Gap 7 (6-14) Blood Urea Nitrogen 23 mg/dL (8-26) Creatinine 0.6 mg/dL (0.7-1.3) Estimated GFR (Cockcroft-Gault) 131.0 Glucose Level 148 mg/dL (70-99) Calcium Level 8.2 mg/dL (8.5-10.1) Phosphorus Level 3.1 mg/dL (2.6-4.7) Magnesium Level 2.2 mg/dL (1.8-2.4) Medications Current Medications Benzocaine (Hurricaine One) 1 spray 1X ONCE MM Last administered on 10/27/18at 18:31; Start 10/27/18 at 18:30; Stop 10/27/18 at 18:31; Status DC Potassium Chloride/Sodium Chloride 1,000 ml @ 75 mls/hr [id number] IV Last administered on 10/28/18 08:41; Start 10/27/18 at 18:45; Stop 10/29/18 at 09:32 ; Status DC Throat Lozenges (Chloraseptic) 1 spray PRN Q2HR PRN PO SORE THROAT Last administered on 10/29/18at 04:05; Start 10/27/18 at 18:45 Throat Lozenges (Cepacol Sore Throat Lozenge) 1 deniz PRN Q2HRS PRN PO SORE THROAT Last administered on 10/28/18at 15:30; Start 10/27/18 at 18:45 Fentanyl Citrate (Fentanyl 2ml Vial) 50 mcg PRN Q3HRS PRN IV PAIN Last administered on 10/29/18 03:50; Start 10/27/18 at 19:15; Stop 10/29/18 at 11:30 ; Status DC Ondansetron HCl (Zofran) 4 mg PRN Q6HRS PRN IV NAUSEA/VOMITING; Start 10/27/18 at 19:45 Budesonide (Pulmicort) 0.5 mg RTBID NEB Last administered on 11/01/18 09:13; Start 10/27/18 at 20:30 Albuterol/ Ipratropium (Duoneb) 3 ml RTQID NEB Last administered on 11/01/18 09 :13; Start 10/27/18 at 20:30 Enoxaparin Sodium (Lovenox 40mg Syringe) 40 mg Q24H SQ Last administered on 11/01 09:04; Start 10/28/18 at 09:00 Methylprednisolone Sodium Succinate (SOLU-Medrol 40MG VIAL) 40 mg DAILY IV Last administered on 11/01/18 09:04; Start 10/28/18 at 09:00 Info (Tpn Per Pharmacy) 1 each PRN DAILY PRN MC SEE COMMENTS Last administered on 11/01/18at 10:46; Start 10/28/18 at 11:45 Amino Acids/ Glycerin/ Electrolytes 1,000 ml @ 80 mls/hr [id number] IV Last administered on 10/28/18at 12:25; Start 10/28/18 at 11:45; Stop 10/28/18 at 21:59 ; Status DC Lidocaine/Sodium Bicarbonate (Buffered Lidocaine 1%) 3 ml STK-MED ONCE .ROUTE ; Start 10/28/18 at 12:27; Stop 10/28/18 at 12:28; Status DC Lidocaine/Sodium Bicarbonate (Buffered Lidocaine 1%) 4 ml 1X ONCE INJ Last administered on 10/28/18at 13:11; Start 10/28/18 at 12:45; Stop 10/28/18 at 12:46 ; Status DC Sodium Chloride 90 meq/Potassium Chloride 50 meq/ Potassium Phosphate 13.6 mmol/ Magnesium Sulfate 10 meq/ Calcium Gluconate 10 meq/ Multivitamins 10 ml/Chromium / Copper/Manganese/ Seleni/Zn 1 ml/ Total Parenteral Nutrition/Amino Acids/ Dextrose/ Fat Emulsion Intravenous 1,512 ml @ 63 mls/hr TPN CONT IV Last administered on 10/28/18at 22:08; Start 10/28/18 at 22:00; Stop 10/29/18 at 21:59 ; Status DC Morphine Sulfate (Morphine Sulfate) 4 mg PRN Q2HR PRN IV PAIN Last administered on 10/31/18at 00:14; Start 10/29/18 at 11:30; Stop 10/31/18 at 13:03 ; Status DC Sodium Chloride 90 meq/Potassium Chloride 50 meq/ Potassium Phosphate 13.6 mmol/ Magnesium Sulfate 10 meq/ Calcium Gluconate 10 meq/ Multivitamins 10 ml/Chromium / Copper/Manganese/ Seleni/Zn 1 ml/ Total Parenteral Nutrition/Amino Acids/ Dextrose/ Fat Emulsion Intravenous 1,512 ml @ 63 mls/hr TPN CONT IV Last administered on 10/29/18at 22:32; Start 10/29/18 at 22:00; Stop 10/30/18 at 21:59 ; Status DC Albuterol Sulfate (Ventolin Neb Soln) 2.5 mg PRN Q4HRS PRN NEB SHORTNESS OF BREATH; Start 10/30/18 at 10:00 Sodium Chloride 90 meq/Potassium Chloride 50 meq/ Potassium Phosphate 13.6 mmol/ Magnesium Sulfate 10 meq/ Calcium Gluconate 10 meq/ Multivitamins 10 ml/Chromium / Copper/Manganese/ Seleni/Zn 1 ml/ Total Parenteral Nutrition/Amino Acids/ Dextrose/ Fat Emulsion Intravenous 1,248 ml @ 52 mls/hr TPN CONT IV Last administered on 10/30/18at 22:48; Start 10/30/18 at 22:00; Stop 10/31/18 at 21:59 ; Status DC Levofloxacin/ Dextrose 100 ml @ 100 mls/hr Q24H IV Last administered on at 09:04; Start 10/31/18 at 09:00 Furosemide (Lasix) 20 mg 1X ONCE IVP Last administered on 10/31/18at 09:08; Start 10/31/18 at 09:00; Stop 10/31/18 at 09:01; Status DC Sodium Chloride 90 meq/Potassium Chloride 50 meq/ Potassium Phosphate 13.6 mmol/ Magnesium Sulfate 10 meq/ Calcium Gluconate 10 meq/ Multivitamins 10 ml/Chromium / Copper/Manganese/ Seleni/Zn 1 ml/ Total Parenteral Nutrition/Amino Acids/ Dextrose/ Fat Emulsion Intravenous 1,248 ml @ 52 mls/hr TPN CONT IV Last administered on 10/31/18at 23:35; Start 10/31/18 at 22:00; Stop 11/01/18 at 21:59 Fentanyl Citrate (Fentanyl 2ml Vial) 25 mcg PRN Q2HR PRN IV MODERATE PAIN Last administered on 11/01/18at 08:51; Start 10/31/18 at 13:15 Active Scripts Active Sertraline Hcl 25 Mg Tablet 50 Mg PO QHS 30 Days Magnesium Chloride 70 Mg Tablet.dr 64 Mg PO DAILY 30 Days Synthroid (Levothyroxine Sodium) 88 Mcg Tablet 88 Mcg PO DAILY06 30 Days Prednisone 20 Mg Tablet 20 Mg PO DAILY 30 Days Budesonide 0.5 Mg/2 Ml Ampul.neb 0.5 Mg NEB RTBID 30 Days Klor-Con 10 (Potassium Chloride) 10 Meq Tablet.er 1 Tab PO DAILY Lasix (Furosemide) 40 Mg Tablet 1 Tab PO DAILY Aspirin Ec (Aspirin) 81 Mg Tablet. 81 Mg PO DAILYWBKFT 30 Days Duoneb 0.5-3(2.5) Mg/3 Ml (Albuterol/Ipratropium) 3 Ml Ampul.neb 3 Ml NEB RTQID 30 Days Diltiazem 24HR Cd (Diltiazem Hcl) 120 Mg Cap.er.24h 120 Mg PO DAILY 30 Days Reported Hydrocodone-Apap 7.5-325 (Hydrocodone Bit/Acetaminophen) 1 Tab Tablet 1 Tab PO PRN Q6HRS PRN Omeprazole 40 Mg Capsule. 40 Mg PO DAILY Vitals/I & O Vital Sign - Last 24 Hours 10/31/18 10/31/18 10/31/18 10/31/18 11:35 15:30 15:34 15:55 Temp 98.7 98.7 Pulse 78 Resp 18 16 B/P (MAP) 113/76 (88) Pulse Ox 93 O2 Delivery Room Air Nasal Cannula Nasal Cannula Room Air O2 Flow Rate 3.0 3.0 10/31/18 10/31/18 10/31/18 10/31/18 19:00 19:45 19:57 20:05 Temp 99.4 99.4 Pulse 88 Resp 18 B/P (MAP) 124/79 (94) Pulse Ox 97 100 100 O2 Delivery Nasal Cannula Nasal Cannula Nasal Cannula Nasal Cannula O2 Flow Rate 3.0 3.0 3.0 3.0 10/31/18 10/31/18 11/01/18 11/01/18 20:59 22:49 00:46 03:00 Temp 98.7 98.6 98.7 98.6 Pulse 81 63 Resp 14 18 B/P (MAP) 102/65 (77) 118/70 (86) Pulse Ox 91 98 O2 Delivery Nasal Cannula Nasal Cannula Nasal Cannula Nasal Cannula O2 Flow Rate 3.0 3.0 3.0 3.0 11/01/18 11/01/18 11/01/18 11/01/18 04:31 07:00 08:00 08:51 Temp 97.9 97.9 Pulse 100 Resp 18 20 B/P (MAP) 104/80 (88) Pulse Ox 93 O2 Delivery Nasal Cannula Room Air Nasal Cannula Nasal Cannula O2 Flow Rate 3.0 3.0 3.0 11/01/18 11/01/18 11/01/18 09:14 09:31 11:00 Temp 97.6 97.6 Pulse 74 Resp 22 18 B/P (MAP) 87/56 (66) Pulse Ox 100 92 O2 Delivery Nasal Cannula Nasal Cannula Nasal Cannula O2 Flow Rate 3.0 3.0 3.0 Intake and Output 10/31/18 10/31/18 11/01/18 14:59 22:59 06:59 Output Total 1200 ml 550 ml 500 ml Balance -1200 ml -550 ml -500 ml Nutrition Consultation Dietary Evaluation: Recommendations by RD: PPN/TPN Comments: continue TPN until able to advance to po diet Expected Outcomes/Goals: diet advance, tolerance Interpretation of weight loss: >7.5% in 3 months Malnutrition Findings: Food and Nutrition Intake (Sev: <50% est energy req 5days Body Fat Depletion (Non Severe: Mild Depletion Weight Status: Emaciated LOURDES POLLOCK MD Nov 01, 2018 11:30
[2018-11-01 15:00] VITALS: BP 95/62
--- NOTE | 2018-11-01 15:57 | NUR ---
Patricia [employer] F[employer]IC[employer] preformed PVR Bladder scan and 85ml was the highest amount found. Will reassess later if needed.
--- NOTE | 2018-11-01 16:36 | NUR ---
SW following. Discussed with RN. Pt on a clear liquid diet today. SW met with pt, pt would like to go back to [facility] if that is what is recommending and available. RN notified. SW will continue to follow for discharge planning.
[2018-11-01 19:00] VITALS: BP 95/65
[2018-11-01] MEDS ORDERED: AMINO ACID IV SCH ×10 (22:00)
[2018-11-01] MEDS ORDERED: TOTAL PARENTERAL NUTRITION IV SCH ×10 (22:00)
[2018-11-01] MEDS ORDERED: [UNRECOGNIZED DRUG - OTHER] IV SCH ×10 (22:00)
[2018-11-01] MEDS ORDERED: DEXTROSE 70% IV SCH ×10 (22:00)
[2018-11-01 23:00] VITALS: BP 134/74
[2018-11-02] MEDS: fentaNYL PF VIAL 100 MCG/2 ML VIAL IV PRN ×4 (02:56→21:40)
[2018-11-02 03:00] VITALS: BP 122/52
[2018-11-02 06:45] LABS: CALCIUM 7.9 mg/dL (8.5-10.1); CREATININE 0.4 mg/dL (0.7-1.3); GFR 209.1; POTASSIUM 3.7 mmol/L (3.5-5.1)
[2018-11-02] MEDS: IPRATRPIUM/ALBUTEROL 0.5/2.5MG 3 ML NEBU. NEB SCH ×4 (07:34→19:25)
[2018-11-02] MEDS: BUDESONIDE 0.5 MG/2 ML NEBU. NEB SCH ×2 (07:35→19:25)
[2018-11-02 07:41] VITALS: BP 111/67
[2018-11-02] MEDS: methylPREDNISolone SOD SUCC PF 40 MG/ML VIAL. IV SCH (07:47)
[2018-11-02] MEDS: ENOXAPARIN 40 MG/0.4 ML SYRINGE. SQ SCH (07:49)
--- NOTE | 2018-11-02 10:30 | NUR ---
SW following. Discussed with RN, pt clear liquid diet and TPN today. [facility] is expecting pt back when pt is ready to discharge from [facility]. SW will continue to follow.
--- NOTE | 2018-11-02 10:38 | PDOC ---
REMBERTO WINSTON [employer] 11/02/18 1037: SURGICAL PROGRESS NOTE Subjective taking clears no flatus, however no n/v Vital Signs Vital Signs Date Time Temp Pulse Resp B/P (MAP) Pulse Ox O2 Delivery O2 Flow Rate FiO2 11/02/18 09:22 Nasal Cannula 3.0 11/02/18 07:48 98 11/02/18 07:41 97.8 79 17 111/67 (82) 97.8 I&O Intake and Output 11/02/18 07:00 Intake Total 520 ml Output Total 400 ml Balance 120 ml Intake Oral 520 ml Output Urine Total 400 ml # Voids 2 # Bowel Movements 2 General: Alert, Oriented X3, Cooperative, No acute distress Abdomen: Soft, Other (mild TTP lower abdomen ) Labs Laboratory Tests Test 10/31/18 19:11 11/01/18 00:35 11/01/18 04:20 11/01/18 05:53 Glucose (Fingerstick) 154 mg/dL (70-99) 128 mg/dL (70-99) 137 mg/dL (70-99) Sodium Level 143 mmol/L (136-145) Potassium Level 3.6 mmol/L (3.5-5.1) Chloride Level 107 mmol/L (98-107) Carbon Dioxide Level 29 mmol/L (21-32) Anion Gap 7 (6-14) Blood Urea Nitrogen 23 mg/dL (8-26) Creatinine 0.6 mg/dL (0.7-1.3) Estimated GFR (Cockcroft-Gault) 131.0 Glucose Level 148 mg/dL (70-99) Calcium Level 8.2 mg/dL (8.5-10.1) Phosphorus Level 3.1 mg/dL (2.6-4.7) Magnesium Level 2.2 mg/dL (1.8-2.4) Test 11/01/18 11:38 11/02/18 05:45 11/02/18 06:59 Glucose (Fingerstick) 140 mg/dL (70-99) 131 mg/dL (70-99) Sodium Level 141 mmol/L (136-145) Potassium Level 3.7 mmol/L (3.5-5.1) Chloride Level 108 mmol/L (98-107) Carbon Dioxide Level 26 mmol/L (21-32) Anion Gap 7 (6-14) Blood Urea Nitrogen 22 mg/dL (8-26) Creatinine 0.4 mg/dL (0.7-1.3) Estimated GFR (Cockcroft-Gault) 209.1 Glucose Level 128 mg/dL (70-99) Calcium Level 7.9 mg/dL (8.5-10.1) Laboratory Tests Test 11/01/18 11:38 11/02/18 05:45 11/02/18 06:59 Glucose (Fingerstick) 140 mg/dL (70-99) 131 mg/dL (70-99) Sodium Level 141 mmol/L (136-145) Potassium Level 3.7 mmol/L (3.5-5.1) Chloride Level 108 mmol/L (98-107) Carbon Dioxide Level 26 mmol/L (21-32) Anion Gap 7 (6-14) Blood Urea Nitrogen 22 mg/dL (8-26) Creatinine 0.4 mg/dL (0.7-1.3) Estimated GFR (Cockcroft-Gault) 209.1 Glucose Level 128 mg/dL (70-99) Calcium Level 7.9 mg/dL (8.5-10.1) Assessment/Plan continue clears SHAKEEL SOMMER MD 11/02/18 1101: SURGICAL PROGRESS NOTE Assessment/Plan pt seen and examined he doesn't want to go back to [facility] "without an operation to fix this" I explained that we need to demonstrate an obstruction vs ileus to feel that surgery will help toward that end will order SBFT REMBERTO WINSTON APRN Nov 02, 2018 10:37 SHAKEEL SOMMER MD Nov 02, 2018 11:01
[2018-11-02 11:13] VITALS: BP 102/63
[2018-11-02] MEDS ORDERED: BARIUM SULFATE 60% 355 ML SUSP PO ONE (11:15)
[2018-11-02] MEDS: TPN PER PHARMACY MC PRN (16:06)
--- NOTE | 2018-11-02 16:08 | NUR ---
Pharmacy TPN Dosing Note S: JOHN ROBBINS is a 78 year old M Currently receiving Central Continuous TPN started 10/28/18 B:Pertinent PMH: SBO Height: 5 feet, 10 inches Weight: 45.1 kg Current diet: CLEARS LABS: Sodium: 141 Potassium: 3.7 Chloride: 108 Calcium: 7.9 Corrected Calcium: 9.26 Magnesium: 2.2 CO2: 26 SCr: 0.4 Glucose: 128-140 Albumin: 2.3 AST: 23 ALT: 11 TPN FORMULA: TPN TYPE: Central Continuous AMINO ACIDS: 60 gm DEXTROSE: 195 gm LIPIDS: 20 gm SODIUM CHLORIDE: 70 mEq POTASSIUM CHLORIDE: 50 mEq POTASSIUM PHOSPHATE: 13.6 mmol MAGNESIUM: 10 mEq CALCIUM: 10 mEq MULTIPLE VITAMIN: 10 ml TRACE ELEMENTS: 1 ml TPN PLAN: Continue same. R: Continue TPN Will monitor electrolytes, glucose, and tolerance to TPN. Yuki Wilhelm RPH, 11/02/18 2152
--- NOTE | 2018-11-02 16:58 | PDOC ---
PROGRESS NOTES Subjective Subjective Patient passing gas. Patient having BMs. Patient requesting definitive surgery if possible. Small bowel series with follow through ordered. Objective Objective Vital Signs Date Time Temp Pulse Resp B/P (MAP) Pulse Ox O2 Delivery O2 Flow Rate FiO2 11/02/18 16:48 Nasal Cannula 3.0 11/02/18 11:13 97.8 67 18 102/63 (76) 99 97.8 Intake and Output 11/02/18 07:00 Intake Total 520 ml Output Total 400 ml Balance 120 ml Intake Oral 520 ml Output Urine Total 400 ml # Voids 2 # Bowel Movements 2 Physical Exam Abdomen: Other (hypoactive bowel sounds) Heart: Regular rate Extremities: No edema General: Alert Lungs: Other (coarse breath sounds in bases.) Assessment Assessment 1. Recurrent small-bowel obstruction. 2. Severe protein malnutrition 3. Severe protein malnutrition. 4. Pulmonary fibrosis. 5. Chronic obstructive pulmonary disease. 6. Hypertension, now hypotensive. 7. Osteoarthritis. 8. Hypothyroidism. 9. Benign prostatic hypertrophy. 10. Chronic diastolic congestive heart failure. Plan Plan of Care KUB with small bowel follow-through. Advance diet per surgery recommendations when stable. Continue TPN. Comment Review of Relevant I have reviewed the following items sherine (where applicable) has been applied. Labs Laboratory Tests Test 10/31/18 19:11 11/01/18 00:35 11/01/18 04:20 11/01/18 05:53 Glucose (Fingerstick) 154 mg/dL (70-99) 128 mg/dL (70-99) 137 mg/dL (70-99) Sodium Level 143 mmol/L (136-145) Potassium Level 3.6 mmol/L (3.5-5.1) Chloride Level 107 mmol/L (98-107) Carbon Dioxide Level 29 mmol/L (21-32) Anion Gap 7 (6-14) Blood Urea Nitrogen 23 mg/dL (8-26) Creatinine 0.6 mg/dL (0.7-1.3) Estimated GFR (Cockcroft-Gault) 131.0 Glucose Level 148 mg/dL (70-99) Calcium Level 8.2 mg/dL (8.5-10.1) Phosphorus Level 3.1 mg/dL (2.6-4.7) Magnesium Level 2.2 mg/dL (1.8-2.4) Test 11/01/18 11:38 11/02/18 05:45 11/02/18 06:59 Glucose (Fingerstick) 140 mg/dL (70-99) 131 mg/dL (70-99) Sodium Level 141 mmol/L (136-145) Potassium Level 3.7 mmol/L (3.5-5.1) Chloride Level 108 mmol/L (98-107) Carbon Dioxide Level 26 mmol/L (21-32) Anion Gap 7 (6-14) Blood Urea Nitrogen 22 mg/dL (8-26) Creatinine 0.4 mg/dL (0.7-1.3) Estimated GFR (Cockcroft-Gault) 209.1 Glucose Level 128 mg/dL (70-99) Calcium Level 7.9 mg/dL (8.5-10.1) Laboratory Tests Test 11/02/18 05:45 11/02/18 06:59 Sodium Level 141 mmol/L (136-145) Potassium Level 3.7 mmol/L (3.5-5.1) Chloride Level 108 mmol/L (98-107) Carbon Dioxide Level 26 mmol/L (21-32) Anion Gap 7 (6-14) Blood Urea Nitrogen 22 mg/dL (8-26) Creatinine 0.4 mg/dL (0.7-1.3) Estimated GFR (Cockcroft-Gault) 209.1 Glucose Level 128 mg/dL (70-99) Calcium Level 7.9 mg/dL (8.5-10.1) Glucose (Fingerstick) 131 mg/dL (70-99) Medications Current Medications Benzocaine (Hurricaine One) 1 spray 1X ONCE MM Last administered on 10/27/18at 18:31; Start 10/27/18 at 18:30; Stop 10/27/18 at 18:31; Status DC Potassium Chloride/Sodium Chloride 1,000 ml @ 75 mls/hr [id number] IV Last administered on 10/28/18at 08:41; Start 10/27/18 at 18:45; Stop 10/29/18 at 09:32 ; Status DC Throat Lozenges (Chloraseptic) 1 spray PRN Q2HR PRN PO SORE THROAT, 2ND CHOICE Last administered on 10/29/18at 04:05; Start 10/27/18 at 18:45 Throat Lozenges (Cepacol Sore Throat Lozenge) 1 deniz PRN Q2HRS PRN PO SORE THROAT, 1ST CHOICE Last administered on 10/28/18 15:30; Start 10/27/18 at 18:45 Fentanyl Citrate (Fentanyl 2ml Vial) 50 mcg PRN Q3HRS PRN IV PAIN Last administered on 10/29/18 03:50; Start 10/27/18 at 19:15; Stop 10/29/18 at 11:30 ; Status DC Ondansetron HCl (Zofran) 4 mg PRN Q6HRS PRN IV NAUSEA/VOMITING; Start 10/27/18 at 19:45 Budesonide (Pulmicort) 0.5 mg RTBID NEB Last administered on 11/02/18 07:35; Start 10/27/18 at 20:30 Albuterol/ Ipratropium (Duoneb) 3 ml RTQID NEB Last administered on 11/02/18 07 :34; Start 10/27/18 at 20:30 Enoxaparin Sodium (Lovenox 40mg Syringe) 40 mg Q24H SQ Last administered on 11/02 07:49; Start 10/28/18 at 09:00 Methylprednisolone Sodium Succinate (SOLU-Medrol 40MG VIAL) 40 mg DAILY IV Last administered on 11/02/18 07:47; Start 10/28/18 at 09:00 Info (Tpn Per Pharmacy) 1 each PRN DAILY PRN MC SEE COMMENTS Last administered on 11/02/18 16:06; Start 10/28/18 at 11:45 Amino Acids/ Glycerin/ Electrolytes 1,000 ml @ 80 mls/hr [id number] IV Last administered on 10/28/18 12:25; Start 10/28/18 at 11:45; Stop 10/28/18 at 21:59 ; Status DC Lidocaine/Sodium Bicarbonate (Buffered Lidocaine 1%) 3 ml STK-MED ONCE .ROUTE ; Start 10/28/18 at 12:27; Stop 10/28/18 at 12:28; Status DC Lidocaine/Sodium Bicarbonate (Buffered Lidocaine 1%) 4 ml 1X ONCE INJ Last administered on 10/28/18at 13:11; Start 10/28/18 at 12:45; Stop 10/28/18 at 12:46 ; Status DC Sodium Chloride 90 meq/Potassium Chloride 50 meq/ Potassium Phosphate 13.6 mmol/ Magnesium Sulfate 10 meq/ Calcium Gluconate 10 meq/ Multivitamins 10 ml/Chromium / Copper/Manganese/ Seleni/Zn 1 ml/ Total Parenteral Nutrition/Amino Acids/ Dextrose/ Fat Emulsion Intravenous 1,512 ml @ 63 mls/hr TPN CONT IV Last administered on 10/28/18at 22:08; Start 10/28/18 at 22:00; Stop 10/29/18 at 21:59 ; Status DC Morphine Sulfate (Morphine Sulfate) 4 mg PRN Q2HR PRN IV PAIN Last administered on 10/31/18at 00:14; Start 10/29/18 at 11:30; Stop 10/31/18 at 13:03 ; Status DC Sodium Chloride 90 meq/Potassium Chloride 50 meq/ Potassium Phosphate 13.6 mmol/ Magnesium Sulfate 10 meq/ Calcium Gluconate 10 meq/ Multivitamins 10 ml/Chromium / Copper/Manganese/ Seleni/Zn 1 ml/ Total Parenteral Nutrition/Amino Acids/ Dextrose/ Fat Emulsion Intravenous 1,512 ml @ 63 mls/hr TPN CONT IV Last administered on 10/29/18at 22:32; Start 10/29/18 at 22:00; Stop 10/30/18 at 21:59 ; Status DC Albuterol Sulfate (Ventolin Neb Soln) 2.5 mg PRN Q4HRS PRN NEB SHORTNESS OF BREATH; Start 10/30/18 at 10:00 Sodium Chloride 90 meq/Potassium Chloride 50 meq/ Potassium Phosphate 13.6 mmol/ Magnesium Sulfate 10 meq/ Calcium Gluconate 10 meq/ Multivitamins 10 ml/Chromium / Copper/Manganese/ Seleni/Zn 1 ml/ Total Parenteral Nutrition/Amino Acids/ Dextrose/ Fat Emulsion Intravenous 1,248 ml @ 52 mls/hr TPN CONT IV Last administered on 10/30/18at 22:48; Start 10/30/18 at 22:00; Stop 10/31/18 at 21:59 ; Status DC Levofloxacin/ Dextrose 100 ml @ 100 mls/hr Q24H IV Last administered on at 07:50; Start 10/31/18 at 09:00 Furosemide (Lasix) 20 mg 1X ONCE IVP Last administered on 10/31/18at 09:08; Start 10/31/18 at 09:00; Stop 10/31/18 at 09:01; Status DC Sodium Chloride 90 meq/Potassium Chloride 50 meq/ Potassium Phosphate 13.6 mmol/ Magnesium Sulfate 10 meq/ Calcium Gluconate 10 meq/ Multivitamins 10 ml/Chromium / Copper/Manganese/ Seleni/Zn 1 ml/ Total Parenteral Nutrition/Amino Acids/ Dextrose/ Fat Emulsion Intravenous 1,248 ml @ 52 mls/hr TPN CONT IV Last administered on 10/31/18at 23:35; Start 10/31/18 at 22:00; Stop 11/01/18 at 21:59 ; Status DC Fentanyl Citrate (Fentanyl 2ml Vial) 25 mcg PRN Q2HR PRN IV MODERATE PAIN Last administered on 11/02/18at 16:48; Start 10/31/18 at 13:15 Sodium Chloride 70 meq/Potassium Chloride 50 meq/ Potassium Phosphate 13.6 mmol/ Magnesium Sulfate 10 meq/ Calcium Gluconate 10 meq/ Multivitamins 10 ml/Chromium / Copper/Manganese/ Seleni/Zn 1 ml/ Total Parenteral Nutrition/Amino Acids/ Dextrose/ Fat Emulsion Intravenous 1,248 ml @ 52 mls/hr TPN CONT IV Last administered on 11/01/18at 22:21; Start 11/01/18 at 22:00; Stop 11/02/18 at 21:59 Barium Sulfate (Liquid E-Z Paque) 710 ml 1X ONCE PO Last administered on at 11:15; Start 11/02/18 at 11:15; Stop 11/02/18 at 11:16; Status DC Sodium Chloride 70 meq/Potassium Chloride 50 meq/ Potassium Phosphate 13.6 mmol/ Magnesium Sulfate 10 meq/ Calcium Gluconate 10 meq/ Multivitamins 10 ml/Chromium / Copper/Manganese/ Seleni/Zn 1 ml/ Total Parenteral Nutrition/Amino Acids/ Dextrose/ Fat Emulsion Intravenous 1,248 ml @ 52 mls/hr TPN CONT IV ; Start at 22:00; Stop 11/03/18 at 21:59 Active Scripts Active Sertraline Hcl 25 Mg Tablet 50 Mg PO QHS 30 Days Magnesium Chloride 70 Mg Tablet.dr 64 Mg PO DAILY 30 Days Synthroid (Levothyroxine Sodium) 88 Mcg Tablet 88 Mcg PO DAILY06 30 Days Prednisone 20 Mg Tablet 20 Mg PO DAILY 30 Days Budesonide 0.5 Mg/2 Ml Ampul.neb 0.5 Mg NEB RTBID 30 Days Klor-Con 10 (Potassium Chloride) 10 Meq Tablet.er 1 Tab PO DAILY Lasix (Furosemide) 40 Mg Tablet 1 Tab PO DAILY Aspirin Ec (Aspirin) 81 Mg Tablet.dr 81 Mg PO DAILYWBKFT 30 Days Duoneb 0.5-3(2.5) Mg/3 Ml (Albuterol/Ipratropium) 3 Ml Ampul.neb 3 Ml NEB RTQID 30 Days Diltiazem 24HR Cd (Diltiazem Hcl) 120 Mg Cap.er.24h 120 Mg PO DAILY 30 Days Reported Hydrocodone-Apap 7.5-325 (Hydrocodone Bit/Acetaminophen) 1 Tab Tablet 1 Tab PO PRN Q6HRS PRN Omeprazole 40 Mg Capsule.dr 40 Mg PO DAILY Vitals/I & O Vital Sign - Last 24 Hours 11/01/18 11/01/18 11/01/18 11/01/18 18:29 19:00 19:24 20:00 Temp 97.9 97.9 Pulse 76 Resp 18 16 B/P (MAP) 95/65 (75) Pulse Ox 95 99 O2 Delivery Nasal Cannula Room Air Nasal Cannula Nasal Cannula O2 Flow Rate 3.0 1.0 3.0 11/01/18 11/01/18 11/02/18 11/02/18 22:33 23:00 02:56 03:00 Temp 98.1 98.9 98.1 98.9 Pulse 88 63 Resp 20 16 20 16 B/P (MAP) 134/74 (94) 122/52 (75) Pulse Ox 95 93 O2 Delivery Nasal Cannula Room Air Nasal Cannula Room Air 11/02/18 11/02/18 11/02/18 11/02/18 07:37 07:41 07:48 08:00 Temp 97.8 97.8 Pulse 79 Resp 17 B/P (MAP) 111/67 (82) Pulse Ox 95 98 98 O2 Delivery Room Air Room Air Nasal Cannula Nasal Cannula O2 Flow Rate 3.0 3.0 11/02/18 11/02/18 11/02/18 09:22 11:13 16:48 Temp 97.8 97.8 Pulse 67 Resp 18 B/P (MAP) 102/63 (76) Pulse Ox 99 O2 Delivery Nasal Cannula Room Air Nasal Cannula O2 Flow Rate 3.0 3.0 Intake and Output 11/01/18 11/01/1819 15:00 23:00 07:00 Intake Total 220 ml 300 ml Output Total 200 ml 200 ml Balance 20 ml 100 ml Nutrition Consultation Dietary Evaluation: Recommendations by RD: PPN/TPN Comments: continue TPN until able to advance to po diet Expected Outcomes/Goals: diet advance, tolerance- goal ongoing Interpretation of weight loss: >7.5% in 3 months Malnutrition Findings: Food and Nutrition Intake (Sev: <50% est energy req 5days Body Fat Depletion (Non Severe: Mild Depletion Weight Status: Emaciated LOURDES POLLOCK MD Nov 02, 2018 16:58
--- NOTE | 2018-11-02 16:58 | RAD ---
Small bowel series, 11/02/2018: History: Small bowel obstruction versus ileus The preliminary abdominal image demonstrates mild residual gaseous distention of several small bowel loops. Serial digital abdominal images were obtained. 0.8 minutes of fluoroscopy time was also utilized with 5 fluoroscopic spot images were recorded. The proximal and mid small bowel loops are moderately dilated. No fold thickening is seen. At 4 hours contrast extends into nondilated distal small bowel and into the cecum. The precise transition point between dilated and nondilated small bowel is not clear. IMPRESSION: Partial distal small bowel obstruction.
[2018-11-02 19:20] VITALS: BP 111/64
[2018-11-02] MEDS ORDERED: DEXTROSE 70% IV SCH ×10 (22:00)
[2018-11-02] MEDS ORDERED: AMINO ACID IV SCH ×10 (22:00)
[2018-11-02] MEDS ORDERED: TOTAL PARENTERAL NUTRITION IV SCH ×10 (22:00)
[2018-11-02] MEDS ORDERED: [UNRECOGNIZED DRUG - OTHER] IV SCH ×10 (22:00)
[2018-11-02 23:35] VITALS: BP 108/66
[2018-11-03] MEDS: fentaNYL PF VIAL 100 MCG/2 ML VIAL IV PRN ×6 (02:37→21:34)
[2018-11-03 03:15] VITALS: BP 118/70
[2018-11-03 06:08] LABS: CALCIUM 7.7 mg/dL (8.5-10.1); CREATININE 0.5 mg/dL (0.7-1.3); GFR 161.7; MAGNESIUM 1.9 mg/dL (1.8-2.4); PHOSPHORUS 2.8 mg/dL (2.6-4.7)
[2018-11-03 07:00] VITALS: BP 126/74
[2018-11-03] MEDS: IPRATRPIUM/ALBUTEROL 0.5/2.5MG 3 ML NEBU. NEB SCH ×4 (07:27→19:57)
[2018-11-03] MEDS: BUDESONIDE 0.5 MG/2 ML NEBU. NEB SCH ×2 (07:27→19:58)
[2018-11-03] MEDS: methylPREDNISolone SOD SUCC PF 40 MG/ML VIAL. IV SCH (07:55)
[2018-11-03] MEDS: ENOXAPARIN 40 MG/0.4 ML SYRINGE. SQ SCH (07:55)
--- NOTE | 2018-11-03 10:15 | NUR ---
SW following. Discussed with RN, pt has a partial small bowel obstruction, on TPN and clears. Pt can return to [facility] upon discharge. SW will continue to follow.
[2018-11-03 11:00] VITALS: BP 120/72
--- NOTE | 2018-11-03 12:10 | PDOC ---
SURGICAL PROGRESS NOTE Subjective up to bedside chair, having full liquid lunch Vital Signs Vital Signs Date Time Temp Pulse Resp B/P (MAP) Pulse Ox O2 Delivery O2 Flow Rate FiO2 11/03/18 11:24 Nasal Cannula 0.5 11/03/18 11:00 97.9 79 18 120/72 (88) 100 97.9 I&O Intake and Output 11/03/18 07:00 Intake Total 240 ml Output Total 350 ml Balance -110 ml Intake Oral 240 ml Output Urine Total 350 ml PATIENT HAS A DELCID: No Abdomen: Soft Labs Laboratory Tests Test 11/02/18 05:45 11/02/18 06:59 11/03/18 00:09 11/03/18 05:45 Sodium Level 141 mmol/L (136-145) 137 mmol/L (136-145) Potassium Level 3.7 mmol/L (3.5-5.1) 4.0 mmol/L (3.5-5.1) Chloride Level 108 mmol/L (98-107) 105 mmol/L (98-107) Carbon Dioxide Level 26 mmol/L (21-32) 26 mmol/L (21-32) Anion Gap 7 (6-14) 6 (6-14) Blood Urea Nitrogen 22 mg/dL (8-26) 15 mg/dL (8-26) Creatinine 0.4 mg/dL (0.7-1.3) 0.5 mg/dL (0.7-1.3) Estimated GFR (Cockcroft-Gault) 209.1 161.7 Glucose Level 128 mg/dL (70-99) 102 mg/dL (70-99) Calcium Level 7.9 mg/dL (8.5-10.1) 7.7 mg/dL (8.5-10.1) Glucose (Fingerstick) 131 mg/dL (70-99) 140 mg/dL (70-99) Phosphorus Level 2.8 mg/dL (2.6-4.7) Magnesium Level 1.9 mg/dL (1.8-2.4) Test 11/03/18 06:09 Glucose (Fingerstick) 108 mg/dL (70-99) Laboratory Tests Test 11/03/18 00:09 11/03/18 05:45 11/03/18 06:09 Glucose (Fingerstick) 140 mg/dL (70-99) 108 mg/dL (70-99) Sodium Level 137 mmol/L (136-145) Potassium Level 4.0 mmol/L (3.5-5.1) Chloride Level 105 mmol/L (98-107) Carbon Dioxide Level 26 mmol/L (21-32) Anion Gap 6 (6-14) Blood Urea Nitrogen 15 mg/dL (8-26) Creatinine 0.5 mg/dL (0.7-1.3) Estimated GFR (Cockcroft-Gault) 161.7 Glucose Level 102 mg/dL (70-99) Calcium Level 7.7 mg/dL (8.5-10.1) Phosphorus Level 2.8 mg/dL (2.6-4.7) Magnesium Level 1.9 mg/dL (1.8-2.4) I have reviewed the following SBFT from yesterday reviewed Assessment/Plan study suggests partial obstruction with marked improvement in the proximal small bowel compared to a week ago believe he is better served with expectant treatment rather than a return to surgery at this point SHAKEEL SOMMER MD Nov 03, 2018 12:10
[2018-11-03] MEDS: TPN PER PHARMACY MC PRN (13:40)
--- NOTE | 2018-11-03 13:40 | NUR ---
Pharmacy TPN Dosing Note S: JOHN ROBBINS is a 78 year old M Currently receiving Central Continuous TPN started 10/28/18 B:Pertinent PMH: SBO Height: 5 feet, 10 inches Weight: 47.526300 kg Current diet: FULL LIQUID LABS: Sodium: 137 Potassium: 4.0 Chloride: 105 Calcium: 7.7 Corrected Calcium: 9.06 Magnesium: 1.9 CO2: 26 SCr: 0.5 Glucose: 102 Albumin: 2.3 AST: 23 ALT: 11 TPN FORMULA: TPN TYPE: Central Continuous AMINO ACIDS: 60 gm DEXTROSE: 195 gm LIPIDS: 20 gm SODIUM CHLORIDE: 70 mEq SODIUM ACETATE: mEq SODIUM PHOSPHATE: mmol POTASSIUM CHLORIDE: 50 mEq POTASSIUM ACETATE: mEq POTASSIUM PHOSPHATE: 13.6 mmol MAGNESIUM: 10 mEq CALCIUM: 10 mEq INSULIN: units MULTIPLE VITAMIN: 10 ml TRACE ELEMENTS: 1 ml(s) TPN PLAN: Continue same. R: Continue TPN as written above. Will monitor electrolytes, glucose, and tolerance to TPN. JOSE DUENAS FORMERLY [facility], 11/03/18 [id number]
[2018-11-03 15:00] VITALS: BP 102/75
--- NOTE | 2018-11-03 16:28 | PDOC ---
PROGRESS NOTES Subjective Subjective Patient feeling some better passing stools but still has inadequate by mouth intake. Small bowel follow-through still shows distal small bowel obstruction. Surgery monitoring GI status and treating expectantly at this time. Objective Objective Vital Signs Date Time Temp Pulse Resp B/P (MAP) Pulse Ox O2 Delivery O2 Flow Rate FiO2 11/03/18 15:59 18 Room Air 11/03/18 15:00 98.0 103 102/75 (84) 90 98.0 11/03/18 13:32 0.5 Intake and Output 11/03/18 07:00 Intake Total 240 ml Output Total 350 ml Balance -110 ml Intake Oral 240 ml Output Urine Total 350 ml Physical Exam Abdomen: Other (positive bowel sounds but hypoactive nontender.) Extremities: No edema General: Alert Lungs: Clear to auscultation Assessment Assessment 1. Recurrent small-bowel obstruction. 2. Severe protein malnutrition 3. Severe protein malnutrition. 4. Pulmonary fibrosis. 5. Chronic obstructive pulmonary disease. 6. Hypertension, now hypotensive. 7. Osteoarthritis. 8. Hypothyroidism. 9. Benign prostatic hypertrophy. 10. Chronic diastolic congestive heart failure. Plan Plan of Care Continue TPN. Slowly advance diet. Continue PT and OT modalities. Comment Review of Relevant I have reviewed the following items sherine (where applicable) has been applied. Labs Laboratory Tests Test 11/02/18 05:45 11/02/18 06:59 11/03/18 00:09 11/03/18 05:45 Sodium Level 141 mmol/L (136-145) 137 mmol/L (136-145) Potassium Level 3.7 mmol/L (3.5-5.1) 4.0 mmol/L (3.5-5.1) Chloride Level 108 mmol/L (98-107) 105 mmol/L (98-107) Carbon Dioxide Level 26 mmol/L (21-32) 26 mmol/L (21-32) Anion Gap 7 (6-14) 6 (6-14) Blood Urea Nitrogen 22 mg/dL (8-26) 15 mg/dL (8-26) Creatinine 0.4 mg/dL (0.7-1.3) 0.5 mg/dL (0.7-1.3) Estimated GFR (Cockcroft-Gault) 209.1 161.7 Glucose Level 128 mg/dL (70-99) 102 mg/dL (70-99) Calcium Level 7.9 mg/dL (8.5-10.1) 7.7 mg/dL (8.5-10.1) Glucose (Fingerstick) 131 mg/dL (70-99) 140 mg/dL (70-99) Phosphorus Level 2.8 mg/dL (2.6-4.7) Magnesium Level 1.9 mg/dL (1.8-2.4) Test 11/03/18 06:09 Glucose (Fingerstick) 108 mg/dL (70-99) Laboratory Tests Test 11/03/18 00:09 11/03/18 05:45 11/03/18 06:09 Glucose (Fingerstick) 140 mg/dL (70-99) 108 mg/dL (70-99) Sodium Level 137 mmol/L (136-145) Potassium Level 4.0 mmol/L (3.5-5.1) Chloride Level 105 mmol/L (98-107) Carbon Dioxide Level 26 mmol/L (21-32) Anion Gap 6 (6-14) Blood Urea Nitrogen 15 mg/dL (8-26) Creatinine 0.5 mg/dL (0.7-1.3) Estimated GFR (Cockcroft-Gault) 161.7 Glucose Level 102 mg/dL (70-99) Calcium Level 7.7 mg/dL (8.5-10.1) Phosphorus Level 2.8 mg/dL (2.6-4.7) Magnesium Level 1.9 mg/dL (1.8-2.4) Medications Current Medications Benzocaine (Hurricaine One) 1 spray 1X ONCE MM Last administered on 10/27/18at 18:31; Start 10/27/18 at 18:30; Stop 10/27/18 at 18:31; Status DC Potassium Chloride/Sodium Chloride 1,000 ml @ 75 mls/hr [id number] IV Last administered on 10/28/18at 08:41; Start 10/27/18 at 18:45; Stop 10/29/18 at 09:32 ; Status DC Throat Lozenges (Chloraseptic) 1 spray PRN Q2HR PRN PO SORE THROAT, 2ND CHOICE Last administered on 10/29/18at 04:05; Start 10/27/18 at 18:45 Throat Lozenges (Cepacol Sore Throat Lozenge) 1 deniz PRN Q2HRS PRN PO SORE THROAT, 1ST CHOICE Last administered on 10/28/18 15:30; Start 10/27/18 at 18:45 Fentanyl Citrate (Fentanyl 2ml Vial) 50 mcg PRN Q3HRS PRN IV PAIN Last administered on 10/29/18 03:50; Start 10/27/18 at 19:15; Stop 10/29/18 at 11:30 ; Status DC Ondansetron HCl (Zofran) 4 mg PRN Q6HRS PRN IV NAUSEA/VOMITING; Start 10/27/18 at 19:45 Budesonide (Pulmicort) 0.5 mg RTBID NEB Last administered on 11/03/18 07:27; Start 10/27/18 at 20:30 Albuterol/ Ipratropium (Duoneb) 3 ml RTQID NEB Last administered on 11/03/18 11 :24; Start 10/27/18 at 20:30 Enoxaparin Sodium (Lovenox 40mg Syringe) 40 mg Q24H SQ Last administered on 11/03 07:55; Start 10/28/18 at 09:00 Methylprednisolone Sodium Succinate (SOLU-Medrol 40MG VIAL) 40 mg DAILY IV Last administered on 11/03/18 07:55; Start 10/28/18 at 09:00 Info (Tpn Per Pharmacy) 1 each PRN DAILY PRN MC SEE COMMENTS Last administered on 11/03/18 13:40; Start 10/28/18 at 11:45 Amino Acids/ Glycerin/ Electrolytes 1,000 ml @ 80 mls/hr [id number] IV Last administered on 10/28/18 12:25; Start 10/28/18 at 11:45; Stop 10/28/18 at 21:59 ; Status DC Lidocaine/Sodium Bicarbonate (Buffered Lidocaine 1%) 3 ml STK-MED ONCE .ROUTE ; Start 10/28/18 at 12:27; Stop 10/28/18 at 12:28; Status DC Lidocaine/Sodium Bicarbonate (Buffered Lidocaine 1%) 4 ml 1X ONCE INJ Last administered on 10/28/18at 13:11; Start 10/28/18 at 12:45; Stop 10/28/18 at 12:46 ; Status DC Sodium Chloride 90 meq/Potassium Chloride 50 meq/ Potassium Phosphate 13.6 mmol/ Magnesium Sulfate 10 meq/ Calcium Gluconate 10 meq/ Multivitamins 10 ml/Chromium / Copper/Manganese/ Seleni/Zn 1 ml/ Total Parenteral Nutrition/Amino Acids/ Dextrose/ Fat Emulsion Intravenous 1,512 ml @ 63 mls/hr TPN CONT IV Last administered on 10/28/18at 22:08; Start 10/28/18 at 22:00; Stop 10/29/18 at 21:59 ; Status DC Morphine Sulfate (Morphine Sulfate) 4 mg PRN Q2HR PRN IV PAIN Last administered on 10/31/18at 00:14; Start 10/29/18 at 11:30; Stop 10/31/18 at 13:03 ; Status DC Sodium Chloride 90 meq/Potassium Chloride 50 meq/ Potassium Phosphate 13.6 mmol/ Magnesium Sulfate 10 meq/ Calcium Gluconate 10 meq/ Multivitamins 10 ml/Chromium / Copper/Manganese/ Seleni/Zn 1 ml/ Total Parenteral Nutrition/Amino Acids/ Dextrose/ Fat Emulsion Intravenous 1,512 ml @ 63 mls/hr TPN CONT IV Last administered on 10/29/18at 22:32; Start 10/29/18 at 22:00; Stop 10/30/18 at 21:59 ; Status DC Albuterol Sulfate (Ventolin Neb Soln) 2.5 mg PRN Q4HRS PRN NEB SHORTNESS OF BREATH; Start 10/30/18 at 10:00 Sodium Chloride 90 meq/Potassium Chloride 50 meq/ Potassium Phosphate 13.6 mmol/ Magnesium Sulfate 10 meq/ Calcium Gluconate 10 meq/ Multivitamins 10 ml/Chromium / Copper/Manganese/ Seleni/Zn 1 ml/ Total Parenteral Nutrition/Amino Acids/ Dextrose/ Fat Emulsion Intravenous 1,248 ml @ 52 mls/hr TPN CONT IV Last administered on 10/30/18at 22:48; Start 10/30/18 at 22:00; Stop 10/31/18 at 21:59 ; Status DC Levofloxacin/ Dextrose 100 ml @ 100 mls/hr Q24H IV Last administered on at 07:55; Start 10/31/18 at 09:00 Furosemide (Lasix) 20 mg 1X ONCE IVP Last administered on 10/31/18at 09:08; Start 10/31/18 at 09:00; Stop 10/31/18 at 09:01; Status DC Sodium Chloride 90 meq/Potassium Chloride 50 meq/ Potassium Phosphate 13.6 mmol/ Magnesium Sulfate 10 meq/ Calcium Gluconate 10 meq/ Multivitamins 10 ml/Chromium / Copper/Manganese/ Seleni/Zn 1 ml/ Total Parenteral Nutrition/Amino Acids/ Dextrose/ Fat Emulsion Intravenous 1,248 ml @ 52 mls/hr TPN CONT IV Last administered on 10/31/18at 23:35; Start 10/31/18 at 22:00; Stop 11/01/18 at 21:59 ; Status DC Fentanyl Citrate (Fentanyl 2ml Vial) 25 mcg PRN Q2HR PRN IV MODERATE PAIN Last administered on 11/03/18at 15:59; Start 10/31/18 at 13:15 Sodium Chloride 70 meq/Potassium Chloride 50 meq/ Potassium Phosphate 13.6 mmol/ Magnesium Sulfate 10 meq/ Calcium Gluconate 10 meq/ Multivitamins 10 ml/Chromium / Copper/Manganese/ Seleni/Zn 1 ml/ Total Parenteral Nutrition/Amino Acids/ Dextrose/ Fat Emulsion Intravenous 1,248 ml @ 52 mls/hr TPN CONT IV Last administered on 11/01/18at 22:21; Start 11/01/18 at 22:00; Stop 11/02/18 at 21:59; Status DC Barium Sulfate (Liquid E-Z Paque) 710 ml 1X ONCE PO Last administered on at 11:15; Start 11/02/18 at 11:15; Stop 11/02/18 at 11:16; Status DC Sodium Chloride 70 meq/Potassium Chloride 50 meq/ Potassium Phosphate 13.6 mmol/ Magnesium Sulfate 10 meq/ Calcium Gluconate 10 meq/ Multivitamins 10 ml/Chromium / Copper/Manganese/ Seleni/Zn 1 ml/ Total Parenteral Nutrition/Amino Acids/ Dextrose/ Fat Emulsion Intravenous 1,248 ml @ 52 mls/hr TPN CONT IV Last administered on 11/02/18at 21:39; Start 11/02/18 at 22:00; Stop 11/03/18 at 21:59 Sodium Chloride 70 meq/Potassium Chloride 50 meq/ Potassium Phosphate 13.6 mmol/ Magnesium Sulfate 10 meq/ Calcium Gluconate 10 meq/ Multivitamins 10 ml/Chromium / Copper/Manganese/ Seleni/Zn 1 ml/ Total Parenteral Nutrition/Amino Acids/ Dextrose/ Fat Emulsion Intravenous 1,248 ml @ 52 mls/hr TPN CONT IV ; Start at 22:00; Stop 11/04/18 at 21:59 Active Scripts Active Sertraline Hcl 25 Mg Tablet 50 Mg PO QHS 30 Days Magnesium Chloride 70 Mg Tablet. 64 Mg PO DAILY 30 Days Synthroid (Levothyroxine Sodium) 88 Mcg Tablet 88 Mcg PO DAILY06 30 Days Prednisone 20 Mg Tablet 20 Mg PO DAILY 30 Days Budesonide 0.5 Mg/2 Ml Ampul.neb 0.5 Mg NEB RTBID 30 Days Klor-Con 10 (Potassium Chloride) 10 Meq Tablet.er 1 Tab PO DAILY Lasix (Furosemide) 40 Mg Tablet 1 Tab PO DAILY Aspirin Ec (Aspirin) 81 Mg Tablet. 81 Mg PO DAILYWBKFT 30 Days Duoneb 0.5-3(2.5) Mg/3 Ml (Albuterol/Ipratropium) 3 Ml Ampul.neb 3 Ml NEB RTQID 30 Days Diltiazem 24HR Cd (Diltiazem Hcl) 120 Mg Cap.er.24h 120 Mg PO DAILY 30 Days Reported Hydrocodone-Apap 7.5-325 (Hydrocodone Bit/Acetaminophen) 1 Tab Tablet 1 Tab PO PRN Q6HRS PRN Omeprazole 40 Mg Capsule. 40 Mg PO DAILY Vitals/I & O Vital Sign - Last 24 Hours 11/02/18 11/02/18 11/02/18 11/02/18 16:48 19:20 19:26 19:27 Temp 97.6 97.6 Pulse 80 Resp 18 B/P (MAP) 111/64 (80) Pulse Ox 94 99 99 O2 Delivery Nasal Cannula Nasal Cannula Nasal Cannula Nasal Cannula O2 Flow Rate 3.0 3.0 2.0 2.0 11/02/18 11/02/18 11/02/18 11/03/18 20:00 21:40 23:35 02:37 Temp 97.9 97.9 Pulse 73 Resp 18 B/P (MAP) 108/66 (80) Pulse Ox 97 97 O2 Delivery Nasal Cannula Nasal Cannula Nasal Cannula Nasal Cannula O2 Flow Rate 2.0 2.0 3.0 3.0 11/03/18 11/03/18 11/03/18 11/03/18 03:15 07:00 07:28 07:50 Temp 97.5 98.2 97.5 98.2 Pulse 70 71 Resp 18 18 B/P (MAP) 118/70 (86) 126/74 (91) Pulse Ox 93 94 98 O2 Delivery Nasal Cannula Nasal Cannula Nasal Cannula Nasal Cannula O2 Flow Rate 3.0 3.0 0.5 3.0 11/03/18 11/03/18 11/03/18 11/03/18 07:58 08:44 11:00 11:24 Temp 97.9 97.9 Pulse 79 Resp 18 B/P (MAP) 120/72 (88) Pulse Ox 98 98 100 O2 Delivery Nasal Cannula Room Air Nasal Cannula O2 Flow Rate 3.0 0.5 11/03/18 11/03/18 11/03/18 11/03/18 12:36 13:32 15:00 15:59 Temp 98.0 98.0 Pulse 103 Resp 18 18 B/P (MAP) 102/75 (84) Pulse Ox 100 90 O2 Delivery Nasal Cannula Nasal Cannula Room Air Room Air O2 Flow Rate 0.5 0.5 Intake and Output 11/02/18 11/02/18 11/03/18 15:00 23:00 07:00 Intake Total 240 ml Output Total 350 ml Balance -110 ml Nutrition Consultation Dietary Evaluation: Recommendations by RD: PPN/TPN Comments: continue TPN until able to advance to po diet Expected Outcomes/Goals: diet advance, tolerance- goal ongoing Interpretation of weight loss: >7.5% in 3 months Malnutrition Findings: Food and Nutrition Intake (Sev: <50% est energy req 5days Body Fat Depletion (Non Severe: Mild Depletion Weight Status: Emaciated LOURDES POLLOCK MD Nov 03, 2018 16:28
[2018-11-03 19:00] VITALS: BP 118/76
[2018-11-03] MEDS ORDERED: DEXTROSE 70% IV SCH ×10 (22:00)
[2018-11-03] MEDS ORDERED: [UNRECOGNIZED DRUG - OTHER] IV SCH ×10 (22:00)
[2018-11-03] MEDS ORDERED: TOTAL PARENTERAL NUTRITION IV SCH ×10 (22:00)
[2018-11-03] MEDS ORDERED: AMINO ACID IV SCH ×10 (22:00)
[2018-11-03 23:00] VITALS: BP 107/65
[2018-11-04] VITALS (7 sets, daily range): BP systolic 85–138; BP diastolic 50–89
[2018-11-04] MEDS: fentaNYL PF VIAL 100 MCG/2 ML VIAL IV PRN ×5 (00:04→10:16)
[2018-11-04] MEDS: ENOXAPARIN 40 MG/0.4 ML SYRINGE. SQ SCH (07:45)
[2018-11-04] MEDS: methylPREDNISolone SOD SUCC PF 40 MG/ML VIAL. IV SCH (07:46)
[2018-11-04] MEDS: IPRATRPIUM/ALBUTEROL 0.5/2.5MG 3 ML NEBU. NEB SCH ×4 (09:40→19:28)
[2018-11-04] MEDS: BUDESONIDE 0.5 MG/2 ML NEBU. NEB SCH ×2 (09:41→19:28)
[2018-11-04] MEDS: TPN PER PHARMACY MC PRN (11:20)
--- NOTE | 2018-11-04 11:22 | NUR ---
Pharmacy TPN Dosing Note S: JOHN ROBBINS is a 78 year old M Currently receiving Central Continuous TPN started 10/28/18 B:Pertinent PMH: SBO Height: 5 feet, 10 inches Weight: 47.000762 kg Current diet: FULL LIQUID LABS: Sodium: 137 (11/03/18) Potassium: 4.0 (11/03/18) Chloride: 105 (11/03/18) Calcium: 7.7 (11/03/18) Corrected Calcium: 9.06 Magnesium: 1.9 (11/03/18) CO2: 26 (11/03/18) SCr: 0.5 ( Glucose: 102-140 Albumin: 2.3 (10/29) AST: 23 (10/29) ALT: 11 (10/29) TPN FORMULA: TPN TYPE: Central Continuous AMINO ACIDS: 60 gm DEXTROSE: 195 gm LIPIDS: 20 gm SODIUM CHLORIDE: 70 mEq SODIUM ACETATE: - mEq SODIUM PHOSPHATE: - mmol POTASSIUM CHLORIDE: 50 mEq POTASSIUM ACETATE: - mEq POTASSIUM PHOSPHATE: 13.6 mmol MAGNESIUM: 10 mEq CALCIUM: 10 mEq INSULIN: - units MULTIPLE VITAMIN: 10 ml TRACE ELEMENTS: 1 ml(s) TPN PLAN: -About the 3 days no changes have been made to TPN. For that reason no labs ordered this AM. -Still working to advance diet slowly as patient tolerates -Plan to continue same TPN at this time -BMP, Mag and Phos ordered for AM R: Continue same TPN with no changes today. Will monitor electrolytes, glucose, and tolerance to TPN. EMI LEIJA, [facility], 11/04/18 [id number]
--- NOTE | 2018-11-04 12:25 | PDOC ---
SURGICAL PROGRESS NOTE Subjective taking some full liquids no stool, no nausea currently Vital Signs Vital Signs Date Time Temp Pulse Resp B/P (MAP) Pulse Ox O2 Delivery O2 Flow Rate FiO2 11/04/18 08:00 Room Air 11/04/18 07:00 98.1 72 16 138/89 (105) 95 3.0 98.1 I&O Intake and Output 11/04/18 06:59 Intake Total 1210 ml Output Total 1190 ml Balance 20 ml Intake Oral 1210 ml Output Urine Total 1190 ml General: Alert, Oriented X3, Cooperative, No acute distress Abdomen: Soft Labs Laboratory Tests Test 11/03/18 00:09 11/03/18 05:45 11/03/18 06:09 Glucose (Fingerstick) 140 mg/dL (70-99) 108 mg/dL (70-99) Sodium Level 137 mmol/L (136-145) Potassium Level 4.0 mmol/L (3.5-5.1) Chloride Level 105 mmol/L (98-107) Carbon Dioxide Level 26 mmol/L (21-32) Anion Gap 6 (6-14) Blood Urea Nitrogen 15 mg/dL (8-26) Creatinine 0.5 mg/dL (0.7-1.3) Estimated GFR (Cockcroft-Gault) 161.7 Glucose Level 102 mg/dL (70-99) Calcium Level 7.7 mg/dL (8.5-10.1) Phosphorus Level 2.8 mg/dL (2.6-4.7) Magnesium Level 1.9 mg/dL (1.8-2.4) Assessment/Plan diet as can tolerate Dc planning REMBERTO WINSTON [employer] OPERATOR Nov 04, 2018 12:25
--- NOTE | 2018-11-04 12:25 | PDOC ---
PROGRESS NOTES Subjective Subjective Patient feeling better still with inadequite po intake but tolerating full liquids. PT/OT on going increased activity encouraged. Objective Objective Vital Signs Date Time Temp Pulse Resp B/P (MAP) Pulse Ox O2 Delivery O2 Flow Rate FiO2 11/04/18 08:00 Room Air 11/04/18 07:00 98.1 72 16 138/89 (105) 95 3.0 98.1 Intake and Output 11/04/18 06:59 Intake Total 1210 ml Output Total 1190 ml Balance 20 ml Intake Oral 1210 ml Output Urine Total 1190 ml Physical Exam Abdomen: Other (BS present) Heart: Regular rate Extremities: No edema General: Alert Lungs: Clear to auscultation Assessment Assessment 1. Recurrent small-bowel obstruction. 2. Chronic obstructive pulmonary disease 3. Severe protein malnutrition. 4. Pulmonary fibrosis. 5. Chronic diastolic congestive heart failure. 6. Hypertension, now hypotensive. 7. Osteoarthritis. 8. Hypothyroidism. 9. Benign prostatic hypertrophy. 10. Hx of untreated Hep c Plan Plan of Care Continue TPN. Slowly advance diet per surgery direction Continue PT and OT modalities. change to PO pain meds Comment Review of Relevant I have reviewed the following items sherine (where applicable) has been applied. Labs Laboratory Tests Test 11/03/18 00:09 11/03/18 05:45 11/03/18 06:09 Glucose (Fingerstick) 140 mg/dL (70-99) 108 mg/dL (70-99) Sodium Level 137 mmol/L (136-145) Potassium Level 4.0 mmol/L (3.5-5.1) Chloride Level 105 mmol/L (98-107) Carbon Dioxide Level 26 mmol/L (21-32) Anion Gap 6 (6-14) Blood Urea Nitrogen 15 mg/dL (8-26) Creatinine 0.5 mg/dL (0.7-1.3) Estimated GFR (Cockcroft-Gault) 161.7 Glucose Level 102 mg/dL (70-99) Calcium Level 7.7 mg/dL (8.5-10.1) Phosphorus Level 2.8 mg/dL (2.6-4.7) Magnesium Level 1.9 mg/dL (1.8-2.4) Medications Current Medications Benzocaine (Hurricaine One) 1 spray 1X ONCE MM Last administered on 10/27/18at 18:31; Start 10/27/18 at 18:30; Stop 10/27/18 at 18:31; Status DC Potassium Chloride/Sodium Chloride 1,000 ml @ 75 mls/hr [id number] IV Last administered on 10/28/18 08:41; Start 10/27/18 at 18:45; Stop 10/29/18 at 09:32 ; Status DC Throat Lozenges (Chloraseptic) 1 spray PRN Q2HR PRN PO SORE THROAT, 2ND CHOICE Last administered on 10/29/18 04:05; Start 10/27/18 at 18:45 Throat Lozenges (Cepacol Sore Throat Lozenge) 1 deniz PRN Q2HRS PRN PO SORE THROAT, 1ST CHOICE Last administered on 10/28/18 15:30; Start 10/27/18 at 18:45 Fentanyl Citrate (Fentanyl 2ml Vial) 50 mcg PRN Q3HRS PRN IV PAIN Last administered on 10/29/18 03:50; Start 10/27/18 at 19:15; Stop 10/29/18 at 11:30 ; Status DC Ondansetron HCl (Zofran) 4 mg PRN Q6HRS PRN IV NAUSEA/VOMITING; Start 10/27/18 at 19:45 Budesonide (Pulmicort) 0.5 mg RTBID NEB Last administered on 11/04/18 09:41; Start 10/27/18 at 20:30 Albuterol/ Ipratropium (Duoneb) 3 ml RTQID NEB Last administered on 11/04/18 09 :40; Start 10/27/18 at 20:30 Enoxaparin Sodium (Lovenox 40mg Syringe) 40 mg Q24H SQ Last administered on 11/04 07:45; Start 10/28/18 at 09:00 Methylprednisolone Sodium Succinate (SOLU-Medrol 40MG VIAL) 40 mg DAILY IV Last administered on 11/04/18 07:46; Start 10/28/18 at 09:00 Info (Tpn Per Pharmacy) 1 each PRN DAILY PRN MC SEE COMMENTS Last administered on 11/04/18 11:20; Start 10/28/18 at 11:45 Amino Acids/ Glycerin/ Electrolytes 1,000 ml @ 80 mls/hr [id number] IV Last administered on 10/28/18at 12:25; Start 10/28/18 at 11:45; Stop 10/28/18 at 21:59 ; Status DC Lidocaine/Sodium Bicarbonate (Buffered Lidocaine 1%) 3 ml STK-MED ONCE .ROUTE ; Start 10/28/18 at 12:27; Stop 10/28/18 at 12:28; Status DC Lidocaine/Sodium Bicarbonate (Buffered Lidocaine 1%) 4 ml 1X ONCE INJ Last administered on 10/28/18at 13:11; Start 10/28/18 at 12:45; Stop 10/28/18 at 12:46 ; Status DC Sodium Chloride 90 meq/Potassium Chloride 50 meq/ Potassium Phosphate 13.6 mmol/ Magnesium Sulfate 10 meq/ Calcium Gluconate 10 meq/ Multivitamins 10 ml/Chromium / Copper/Manganese/ Seleni/Zn 1 ml/ Total Parenteral Nutrition/Amino Acids/ Dextrose/ Fat Emulsion Intravenous 1,512 ml @ 63 mls/hr TPN CONT IV Last administered on 10/28/18at 22:08; Start 10/28/18 at 22:00; Stop 10/29/18 at 21:59 ; Status DC Morphine Sulfate (Morphine Sulfate) 4 mg PRN Q2HR PRN IV PAIN Last administered on 10/31/18at 00:14; Start 10/29/18 at 11:30; Stop 10/31/18 at 13:03 ; Status DC Sodium Chloride 90 meq/Potassium Chloride 50 meq/ Potassium Phosphate 13.6 mmol/ Magnesium Sulfate 10 meq/ Calcium Gluconate 10 meq/ Multivitamins 10 ml/Chromium / Copper/Manganese/ Seleni/Zn 1 ml/ Total Parenteral Nutrition/Amino Acids/ Dextrose/ Fat Emulsion Intravenous 1,512 ml @ 63 mls/hr TPN CONT IV Last administered on 10/29/18at 22:32; Start 10/29/18 at 22:00; Stop 10/30/18 at 21:59 ; Status DC Albuterol Sulfate (Ventolin Neb Soln) 2.5 mg PRN Q4HRS PRN NEB SHORTNESS OF BREATH; Start 10/30/18 at 10:00 Sodium Chloride 90 meq/Potassium Chloride 50 meq/ Potassium Phosphate 13.6 mmol/ Magnesium Sulfate 10 meq/ Calcium Gluconate 10 meq/ Multivitamins 10 ml/Chromium / Copper/Manganese/ Seleni/Zn 1 ml/ Total Parenteral Nutrition/Amino Acids/ Dextrose/ Fat Emulsion Intravenous 1,248 ml @ 52 mls/hr TPN CONT IV Last administered on 10/30/18at 22:48; Start 10/30/18 at 22:00; Stop 10/31/18 at 21:59 ; Status DC Levofloxacin/ Dextrose 100 ml @ 100 mls/hr Q24H IV Last administered on at 07:45; Start 10/31/18 at 09:00 Furosemide (Lasix) 20 mg 1X ONCE IVP Last administered on 10/31/18at 09:08; Start 10/31/18 at 09:00; Stop 10/31/18 at 09:01; Status DC Sodium Chloride 90 meq/Potassium Chloride 50 meq/ Potassium Phosphate 13.6 mmol/ Magnesium Sulfate 10 meq/ Calcium Gluconate 10 meq/ Multivitamins 10 ml/Chromium / Copper/Manganese/ Seleni/Zn 1 ml/ Total Parenteral Nutrition/Amino Acids/ Dextrose/ Fat Emulsion Intravenous 1,248 ml @ 52 mls/hr TPN CONT IV Last administered on 10/31/18at 23:35; Start 10/31/18 at 22:00; Stop 11/01/18 at 21:59 ; Status DC Fentanyl Citrate (Fentanyl 2ml Vial) 25 mcg PRN Q2HR PRN IV MODERATE PAIN Last administered on 11/04/18at 10:16; Start 10/31/18 at 13:15 Sodium Chloride 70 meq/Potassium Chloride 50 meq/ Potassium Phosphate 13.6 mmol/ Magnesium Sulfate 10 meq/ Calcium Gluconate 10 meq/ Multivitamins 10 ml/Chromium / Copper/Manganese/ Seleni/Zn 1 ml/ Total Parenteral Nutrition/Amino Acids/ Dextrose/ Fat Emulsion Intravenous 1,248 ml @ 52 mls/hr TPN CONT IV Last administered on 11/01/18at 22:21; Start 11/01/18 at 22:00; Stop 11/02/18 at 21:59; Status DC Barium Sulfate (Liquid E-Z Paque) 710 ml 1X ONCE PO Last administered on at 11:15; Start 11/02/18 at 11:15; Stop 11/02/18 at 11:16; Status DC Sodium Chloride 70 meq/Potassium Chloride 50 meq/ Potassium Phosphate 13.6 mmol/ Magnesium Sulfate 10 meq/ Calcium Gluconate 10 meq/ Multivitamins 10 ml/Chromium / Copper/Manganese/ Seleni/Zn 1 ml/ Total Parenteral Nutrition/Amino Acids/ Dextrose/ Fat Emulsion Intravenous 1,248 ml @ 52 mls/hr TPN CONT IV Last administered on 11/02/18at 21:39; Start 11/02/18 at 22:00; Stop 11/03/18 at 21:59; Status DC Sodium Chloride 70 meq/Potassium Chloride 50 meq/ Potassium Phosphate 13.6 mmol/ Magnesium Sulfate 10 meq/ Calcium Gluconate 10 meq/ Multivitamins 10 ml/Chromium / Copper/Manganese/ Seleni/Zn 1 ml/ Total Parenteral Nutrition/Amino Acids/ Dextrose/ Fat Emulsion Intravenous 1,248 ml @ 52 mls/hr TPN CONT IV Last administered on 11/03/18at 21:31; Start 11/03/18 at 22:00; Stop 11/04/18 at 21:59 Sodium Chloride 70 meq/Potassium Chloride 50 meq/ Potassium Phosphate 13.6 mmol/ Magnesium Sulfate 10 meq/ Calcium Gluconate 10 meq/ Multivitamins 10 ml/Chromium / Copper/Manganese/ Seleni/Zn 1 ml/ Total Parenteral Nutrition/Amino Acids/ Dextrose/ Fat Emulsion Intravenous 1,248 ml @ 52 mls/hr TPN CONT IV ; Start at 22:00; Stop 11/05/18 at 21:59 Acetaminophen/ Hydrocodone Bitart (Lortab 7.5/325) 1 tab PRN Q6HRS PRN PO PAIN ; Start 11/04/18 at 12:30; Status UNV Acetaminophen/ Hydrocodone Bitart (Lortab 7.5/325) 2 tab PRN Q6HRS PRN PO PAIN ; Start 11/04/18 at 12:30; Status UNV Active Scripts Active Sertraline Hcl 25 Mg Tablet 50 Mg PO QHS 30 Days Magnesium Chloride 70 Mg Tablet.dr 64 Mg PO DAILY 30 Days Synthroid (Levothyroxine Sodium) 88 Mcg Tablet 88 Mcg PO DAILY06 30 Days Prednisone 20 Mg Tablet 20 Mg PO DAILY 30 Days Budesonide 0.5 Mg/2 Ml Ampul.neb 0.5 Mg NEB RTBID 30 Days Klor-Con 10 (Potassium Chloride) 10 Meq Tablet.er 1 Tab PO DAILY Lasix (Furosemide) 40 Mg Tablet 1 Tab PO DAILY Aspirin Ec (Aspirin) 81 Mg Tablet.dr 81 Mg PO DAILYWBKFT 30 Days Duoneb 0.5-3(2.5) Mg/3 Ml (Albuterol/Ipratropium) 3 Ml Ampul.neb 3 Ml NEB RTQID 30 Days Diltiazem 24HR Cd (Diltiazem Hcl) 120 Mg Cap.er.24h 120 Mg PO DAILY 30 Days Reported Hydrocodone-Apap 7.5-325 (Hydrocodone Bit/Acetaminophen) 1 Tab Tablet 1 Tab PO PRN Q6HRS PRN Omeprazole 40 Mg Capsule.dr 40 Mg PO DAILY Vitals/I & O Vital Sign - Last 24 Hours 11/03/18 11/03/18 11/03/18 11/03/18 12:36 15:00 15:59 16:48 Temp 98.0 98.0 Pulse 103 Resp 18 18 18 B/P (MAP) 102/75 (84) Pulse Ox 100 90 O2 Delivery Nasal Cannula Room Air Room Air O2 Flow Rate 0.5 11/03/18 11/03/18 11/03/18 11/03/18 19:00 19:26 19:59 20:00 Temp 98.2 98.2 Pulse 85 Resp 20 B/P (MAP) 118/76 (90) Pulse Ox 93 90 96 O2 Delivery Room Air Nasal Cannula Room Air Nasal Cannula O2 Flow Rate 2.0 11/03/18 11/03/18 11/04/18 11/04/18 21:34 23:00 00:04 02:43 Temp 98.5 98.5 Pulse 74 Resp 18 B/P (MAP) 107/65 (79) Pulse Ox 96 97 97 97 O2 Delivery Nasal Cannula Room Air Nasal Cannula Nasal Cannula O2 Flow Rate 2.0 2.0 11/04/18 11/04/18 11/04/18 11/04/18 03:00 05:25 05:55 07:00 Temp 98.4 98.1 98.4 98.1 Pulse 75 72 Resp 18 16 B/P (MAP) 109/67 (81) 138/89 (105) Pulse Ox 96 96 96 95 O2 Delivery Room Air Nasal Cannula Nasal Cannula Nasal Cannula O2 Flow Rate 2.0 2.0 3.0 11/04/18 08:00 O2 Delivery Room Air Intake and Output 11/03/18 11/03/18 11/04/18 14:59 22:59 06:59 Intake Total 810 ml 200 ml 200 ml Output Total 590 ml 600 ml Balance 220 ml 200 ml -400 ml Nutrition Consultation Dietary Evaluation: Recommendations by RD: PPN/TPN Comments: continue TPN until able to advance diet to regular and pt consuming > 75% of his est nutr needs. Expected Outcomes/Goals: diet advance, tolerance- goal ongoing Interpretation of weight loss: >7.5% in 3 months Malnutrition Findings: Food and Nutrition Intake (Sev: <50% est energy req 5days Body Fat Depletion (Non Severe: Mild Depletion Weight Status: Emaciated LOURDES POLLOCK MD Nov 04, 2018 12:25
--- NOTE | 2018-11-04 12:40 | NUR ---
Plan of Care: Discussed plan with Dr. Neal, continue plan of care (TPN, [place] diet, monitor for changes in bowel, and pain management). No plans for DC today. [employer] notified of plan.
--- NOTE | 2018-11-04 12:48 | NUR ---
SW following. Discussed with RN, pt advancing diet as tolerated, possible KUB today. Dr. Neal considering whether to do surgery or not. SW faxed updates to [facility]. [facility] will continue to follow.
[2018-11-04] MEDS: LEVOTHYROXINE 88 MCG TABLET PO SCH (12:50)
[2018-11-04] MEDS: MAGNESIUM CHLORIDE ER 64 MG TABLET.ER PO SCH (12:51)
[2018-11-04] MEDS: HYDROcodone/APAP 7.5/325MG 1 TAB TABLET PO PRN ×3 (12:51→18:38)
[2018-11-04] MEDS: PANTOPRAZOLE 40 MG TABLET.DR. PO SCH (12:51)
--- NOTE | 2018-11-04 14:23 | NUR ---
Pt c/o pain=4/10, given second hydrocodone 7.5mg at thiss time.
[2018-11-04] MEDS: SERTRALINE 50 MG TABLET. PO SCH (21:26)
[2018-11-04] MEDS ORDERED: TOTAL PARENTERAL NUTRITION IV SCH ×10 (22:00)
[2018-11-04] MEDS ORDERED: DEXTROSE 70% IV SCH ×10 (22:00)
[2018-11-04] MEDS ORDERED: [UNRECOGNIZED DRUG - OTHER] IV SCH ×10 (22:00)
[2018-11-04] MEDS ORDERED: AMINO ACID IV SCH ×10 (22:00)
[2018-11-04] MEDS ORDERED: CALCIUM CARBONATE 500 MG TAB.CHEW PO PRN (22:45)
[2018-11-05 03:07] VITALS: BP 100/64
[2018-11-05] MEDS: LEVOTHYROXINE 88 MCG TABLET PO SCH (05:35)
[2018-11-05] MEDS: HYDROcodone/APAP 7.5/325MG 1 TAB TABLET PO PRN ×3 (05:36→19:51)
[2018-11-05 06:07] LABS: CREATININE 0.6 mg/dL (0.7-1.3); MAGNESIUM 1.9 mg/dL (1.8-2.4); PHOSPHORUS 3.2 mg/dL (2.6-4.7); POTASSIUM 4.2 mmol/L (3.5-5.1)
[2018-11-05 07:00] VITALS: BP 105/66
[2018-11-05] MEDS: BUDESONIDE 0.5 MG/2 ML NEBU. NEB SCH ×2 (08:00→20:20)
[2018-11-05] MEDS: IPRATRPIUM/ALBUTEROL 0.5/2.5MG 3 ML NEBU. NEB SCH ×4 (08:00→20:20)
[2018-11-05] MEDS: PANTOPRAZOLE 40 MG TABLET.DR. PO SCH (08:17)
[2018-11-05] MEDS: MAGNESIUM CHLORIDE ER 64 MG TABLET.ER PO SCH (08:18)
[2018-11-05] MEDS: predniSONE 20 MG TABLET PO SCH (08:18)
[2018-11-05] MEDS: ENOXAPARIN 40 MG/0.4 ML SYRINGE. SQ SCH (08:19)
[2018-11-05] MEDS ORDERED: predniSONE 20 MG TABLET PO SCH ×2 (09:00)
--- NOTE | 2018-11-05 09:29 | NUR ---
While working with OT, RUE picc line pulled out, tip i tact. Pressure dressing applied. Dr. Jose rivera.
[2018-11-05 11:00] VITALS: BP 98/63
--- NOTE | 2018-11-05 12:14 | PDOC ---
REMBERTO WINSTON PROCESS VALIDATION ENGINEER 11/05/18 1213: SURGICAL PROGRESS NOTE Subjective taking full liquids--does not like the food choices PICC pulled out had BM 2 days ago, + flatus Vital Signs Vital Signs Date Time Temp Pulse Resp B/P (MAP) Pulse Ox O2 Delivery O2 Flow Rate FiO2 11/05/18 11:14 98 Room Air 11/05/18 11:00 97.4 75 18 98/63 (75) 97.4 11/04/18 19:38 3.0 I&O Intake and Output 11/05/18 07:00 Intake Total 540 ml Output Total 1500 ml Balance -960 ml Intake Oral 540 ml Output Urine Total 1500 ml # Voids 3 # Bowel Movements 1 General: Alert, Oriented X3, Cooperative, No acute distress Abdomen: Soft, No tenderness Labs Laboratory Tests Test 11/04/18 11:16 11/05/18 05:15 11/05/18 06:15 11/05/18 11:50 Glucose (Fingerstick) 157 mg/dL (70-99) 106 mg/dL (70-99) 105 mg/dL (70-99) Sodium Level 137 mmol/L (136-145) Potassium Level 4.2 mmol/L (3.5-5.1) Chloride Level 104 mmol/L (98-107) Carbon Dioxide Level 26 mmol/L (21-32) Anion Gap 7 (6-14) Blood Urea Nitrogen 15 mg/dL (8-26) Creatinine 0.6 mg/dL (0.7-1.3) Estimated GFR (Cockcroft-Gault) 131.0 Glucose Level 121 mg/dL (70-99) Calcium Level 8.0 mg/dL (8.5-10.1) Phosphorus Level 3.2 mg/dL (2.6-4.7) Magnesium Level 1.9 mg/dL (1.8-2.4) Laboratory Tests Test 11/05/18 05:15 11/05/18 06:15 11/05/18 11:50 Sodium Level 137 mmol/L (136-145) Potassium Level 4.2 mmol/L (3.5-5.1) Chloride Level 104 mmol/L (98-107) Carbon Dioxide Level 26 mmol/L (21-32) Anion Gap 7 (6-14) Blood Urea Nitrogen 15 mg/dL (8-26) Creatinine 0.6 mg/dL (0.7-1.3) Estimated GFR (Cockcroft-Gault) 131.0 Glucose Level 121 mg/dL (70-99) Calcium Level 8.0 mg/dL (8.5-10.1) Phosphorus Level 3.2 mg/dL (2.6-4.7) Magnesium Level 1.9 mg/dL (1.8-2.4) Glucose (Fingerstick) 106 mg/dL (70-99) 105 mg/dL (70-99) Assessment/Plan will try advancing to soft diet MIKAELA TABARES MD 11/05/18 1433: SURGICAL PROGRESS NOTE Assessment/Plan Pt seen and examined. Agree with Ms. Winston's note Pt reports doing well, denies c/o, kj soft diet, passing flatus abd soft, ND, NTTP C-diff positive CT with resolving pneumoperitoneum, small fluid collection cont abx per ID, ADAT REMBERTO WINSTON [employer]ESS [employer]IDATION ENGINEER Nov 05, 2018 12:13 MIKAELA TABARES MD Nov 05, 2018 14:33
--- NOTE | 2018-11-05 13:00 | PDOC ---
PROGRESS NOTES Subjective Subjective Patient tolerating full liq still no BM. Picc line inadvertently pulled out. will leave out and d/c TPN. Objective Objective Vital Signs Date Time Temp Pulse Resp B/P (MAP) Pulse Ox O2 Delivery O2 Flow Rate FiO2 11/05/18 11:14 98 Room Air 11/05/18 11:00 97.4 75 18 98/63 (75) 97.4 11/04/18 19:38 3.0 Intake and Output 11/05/18 07:00 Intake Total 540 ml Output Total 1500 ml Balance -960 ml Intake Oral 540 ml Output Urine Total 1500 ml # Voids 3 # Bowel Movements 1 Physical Exam Abdomen: Other (Few BS) Heart: Regular rate Extremities: No edema General: Alert Lungs: Clear to auscultation Assessment Assessment 1. Recurrent small-bowel obstruction. 2. Chronic obstructive pulmonary disease 3. Severe protein malnutrition. 4. Pulmonary fibrosis. 5. Chronic diastolic congestive heart failure. 6. Hypertension, now hypotensive. 7. Osteoarthritis. 8. Hypothyroidism. 9. Benign prostatic hypertrophy. 10. Hx of untreated Hep c Plan Plan of Care D/C TPN for now if reccurent SBO or surgery needed plan to Restart Slowly advance diet per surgery direction Continue PT and OT modalities. Restart home po meds D/C Levaquin - completed therapy Comment Review of Relevant I have reviewed the following items sherine (where applicable) has been applied. Labs Laboratory Tests Test 11/04/18 11:16 11/05/18 05:15 11/05/18 06:15 11/05/18 11:50 Glucose (Fingerstick) 157 mg/dL (70-99) 106 mg/dL (70-99) 105 mg/dL (70-99) Sodium Level 137 mmol/L (136-145) Potassium Level 4.2 mmol/L (3.5-5.1) Chloride Level 104 mmol/L (98-107) Carbon Dioxide Level 26 mmol/L (21-32) Anion Gap 7 (6-14) Blood Urea Nitrogen 15 mg/dL (8-26) Creatinine 0.6 mg/dL (0.7-1.3) Estimated GFR (Cockcroft-Gault) 131.0 Glucose Level 121 mg/dL (70-99) Calcium Level 8.0 mg/dL (8.5-10.1) Phosphorus Level 3.2 mg/dL (2.6-4.7) Magnesium Level 1.9 mg/dL (1.8-2.4) Laboratory Tests Test 11/05/18 05:15 11/05/18 06:15 11/05/18 11:50 Sodium Level 137 mmol/L (136-145) Potassium Level 4.2 mmol/L (3.5-5.1) Chloride Level 104 mmol/L (98-107) Carbon Dioxide Level 26 mmol/L (21-32) Anion Gap 7 (6-14) Blood Urea Nitrogen 15 mg/dL (8-26) Creatinine 0.6 mg/dL (0.7-1.3) Estimated GFR (Cockcroft-Gault) 131.0 Glucose Level 121 mg/dL (70-99) Calcium Level 8.0 mg/dL (8.5-10.1) Phosphorus Level 3.2 mg/dL (2.6-4.7) Magnesium Level 1.9 mg/dL (1.8-2.4) Glucose (Fingerstick) 106 mg/dL (70-99) 105 mg/dL (70-99) Medications Current Medications Benzocaine (Hurricaine One) 1 spray 1X ONCE MM Last administered on 10/27/18at 18:31; Start 10/27/18 at 18:30; Stop 10/27/18 at 18:31; Status DC Potassium Chloride/Sodium Chloride 1,000 ml @ 75 mls/hr [id number] IV Last administered on 10/28/18at 08:41; Start 10/27/18 at 18:45; Stop 10/29/18 at 09:32 ; Status DC Throat Lozenges (Chloraseptic) 1 spray PRN Q2HR PRN PO SORE THROAT, 2ND CHOICE Last administered on 10/29/18at 04:05; Start 10/27/18 at 18:45 Throat Lozenges (Cepacol Sore Throat Lozenge) 1 deniz PRN Q2HRS PRN PO SORE THROAT, 1ST CHOICE Last administered on 10/28/18at 15:30; Start 10/27/18 at 18:45 Fentanyl Citrate (Fentanyl 2ml Vial) 50 mcg PRN Q3HRS PRN IV PAIN Last administered on 10/29/18at 03:50; Start 10/27/18 at 19:15; Stop 10/29/18 at 11:30 ; Status DC Ondansetron HCl (Zofran) 4 mg PRN Q6HRS PRN IV NAUSEA/VOMITING; Start 10/27/18 at 19:45 Budesonide (Pulmicort) 0.5 mg RTBID NEB Last administered on 11/05/18 08:00; Start 10/27/18 at 20:30 Albuterol/ Ipratropium (Duoneb) 3 ml RTQID NEB Last administered on 11/05/18 08 :00; Start 10/27/18 at 20:30 Enoxaparin Sodium (Lovenox 40mg Syringe) 40 mg Q24H SQ Last administered on 11/05 08:19; Start 10/28/18 at 09:00 Methylprednisolone Sodium Succinate (SOLU-Medrol 40MG VIAL) 40 mg DAILY IV Last administered on 11/04/18 07:46; Start 10/28/18 at 09:00; Stop 11/04/18 at 12 :27; Status DC Info (Tpn Per Pharmacy) 1 each PRN DAILY PRN MC SEE COMMENTS Last administered on 11/04/18 11:20; Start 10/28/18 at 11:45 Amino Acids/ Glycerin/ Electrolytes 1,000 ml @ 80 mls/hr [id number] IV Last administered on 10/28/18 12:25; Start 10/28/18 at 11:45; Stop 10/28/18 at 21:59 ; Status DC Lidocaine/Sodium Bicarbonate (Buffered Lidocaine 1%) 3 ml STK-MED ONCE .ROUTE ; Start 10/28/18 at 12:27; Stop 10/28/18 at 12:28; Status DC Lidocaine/Sodium Bicarbonate (Buffered Lidocaine 1%) 4 ml 1X ONCE INJ Last administered on 10/28/18at 13:11; Start 10/28/18 at 12:45; Stop 10/28/18 at 12:46 ; Status DC Sodium Chloride 90 meq/Potassium Chloride 50 meq/ Potassium Phosphate 13.6 mmol/ Magnesium Sulfate 10 meq/ Calcium Gluconate 10 meq/ Multivitamins 10 ml/Chromium / Copper/Manganese/ Seleni/Zn 1 ml/ Total Parenteral Nutrition/Amino Acids/ Dextrose/ Fat Emulsion Intravenous 1,512 ml @ 63 mls/hr TPN CONT IV Last administered on 3/28/19at 22:08; Start 10/28/18 at 22:00; Stop 10/29/18 at 21:59 ; Status DC Morphine Sulfate (Morphine Sulfate) 4 mg PRN Q2HR PRN IV PAIN Last administered on 10/31/18at 00:14; Start 10/29/18 at 11:30; Stop 10/31/18 at 13:03 ; Status DC Sodium Chloride 90 meq/Potassium Chloride 50 meq/ Potassium Phosphate 13.6 mmol/ Magnesium Sulfate 10 meq/ Calcium Gluconate 10 meq/ Multivitamins 10 ml/Chromium / Copper/Manganese/ Seleni/Zn 1 ml/ Total Parenteral Nutrition/Amino Acids/ Dextrose/ Fat Emulsion Intravenous 1,512 ml @ 63 mls/hr TPN CONT IV Last administered on 10/29/18at 22:32; Start 10/29/18 at 22:00; Stop 10/30/18 at 21:59 ; Status DC Albuterol Sulfate (Ventolin Neb Soln) 2.5 mg PRN Q4HRS PRN NEB SHORTNESS OF BREATH; Start 10/30/18 at 10:00 Sodium Chloride 90 meq/Potassium Chloride 50 meq/ Potassium Phosphate 13.6 mmol/ Magnesium Sulfate 10 meq/ Calcium Gluconate 10 meq/ Multivitamins 10 ml/Chromium / Copper/Manganese/ Seleni/Zn 1 ml/ Total Parenteral Nutrition/Amino Acids/ Dextrose/ Fat Emulsion Intravenous 1,248 ml @ 52 mls/hr TPN CONT IV Last administered on 10/30/18at 22:48; Start 10/30/18 at 22:00; Stop 10/31/18 at 21:59 ; Status DC Levofloxacin/ Dextrose 100 ml @ 100 mls/hr Q24H IV Last administered on at 08:22; Start 10/31/18 at 09:00 Furosemide (Lasix) 20 mg 1X ONCE IVP Last administered on 10/31/18at 09:08; Start 10/31/18 at 09:00; Stop 10/31/18 at 09:01; Status DC Sodium Chloride 90 meq/Potassium Chloride 50 meq/ Potassium Phosphate 13.6 mmol/ Magnesium Sulfate 10 meq/ Calcium Gluconate 10 meq/ Multivitamins 10 ml/Chromium / Copper/Manganese/ Seleni/Zn 1 ml/ Total Parenteral Nutrition/Amino Acids/ Dextrose/ Fat Emulsion Intravenous 1,248 ml @ 52 mls/hr TPN CONT IV Last administered on 10/31/18at 23:35; Start 10/31/18 at 22:00; Stop 11/01/18 at 21:59 ; Status DC Fentanyl Citrate (Fentanyl 2ml Vial) 25 mcg PRN Q2HR PRN IV MODERATE PAIN Last administered on 11/04/18at 10:16; Start 10/31/18 at 13:15 Sodium Chloride 70 meq/Potassium Chloride 50 meq/ Potassium Phosphate 13.6 mmol/ Magnesium Sulfate 10 meq/ Calcium Gluconate 10 meq/ Multivitamins 10 ml/Chromium / Copper/Manganese/ Seleni/Zn 1 ml/ Total Parenteral Nutrition/Amino Acids/ Dextrose/ Fat Emulsion Intravenous 1,248 ml @ 52 mls/hr TPN CONT IV Last administered on 11/01/18at 22:21; Start 11/01/18 at 22:00; Stop 11/02/18 at 21:59; Status DC Barium Sulfate (Liquid E-Z Paque) 710 ml 1X ONCE PO Last administered on at 11:15; Start 11/02/18 at 11:15; Stop 11/02/18 at 11:16; Status DC Sodium Chloride 70 meq/Potassium Chloride 50 meq/ Potassium Phosphate 13.6 mmol/ Magnesium Sulfate 10 meq/ Calcium Gluconate 10 meq/ Multivitamins 10 ml/Chromium / Copper/Manganese/ Seleni/Zn 1 ml/ Total Parenteral Nutrition/Amino Acids/ Dextrose/ Fat Emulsion Intravenous 1,248 ml @ 52 mls/hr TPN CONT IV Last administered on 11/02/18at 21:39; Start 11/02/18 at 22:00; Stop 11/03/18 at 21:59; Status DC Sodium Chloride 70 meq/Potassium Chloride 50 meq/ Potassium Phosphate 13.6 mmol/ Magnesium Sulfate 10 meq/ Calcium Gluconate 10 meq/ Multivitamins 10 ml/Chromium / Copper/Manganese/ Seleni/Zn 1 ml/ Total Parenteral Nutrition/Amino Acids/ Dextrose/ Fat Emulsion Intravenous 1,248 ml @ 52 mls/hr TPN CONT IV Last administered on 11/03/18at 21:31; Start 11/03/18 at 22:00; Stop 11/04/18 at 21:59; Status DC Sodium Chloride 70 meq/Potassium Chloride 50 meq/ Potassium Phosphate 13.6 mmol/ Magnesium Sulfate 10 meq/ Calcium Gluconate 10 meq/ Multivitamins 10 ml/Chromium / Copper/Manganese/ Seleni/Zn 1 ml/ Total Parenteral Nutrition/Amino Acids/ Dextrose/ Fat Emulsion Intravenous 1,248 ml @ 52 mls/hr TPN CONT IV Last administered on 11/04/18 21:26; Start 11/04/18 at 22:00; Stop 11/05/18 at 21:59 Acetaminophen/ Hydrocodone Bitart (Lortab 7.5/325) 1 tab PRN Q6HRS PRN PO PAIN Last administered on 11/04/18 14:18; Start 11/04/18 at 12:30 Acetaminophen/ Hydrocodone Bitart (Lortab 7.5/325) 2 tab PRN Q6HRS PRN PO PAIN Last administered on 11/05/18 05:36; Start 11/04/18 at 12:30 Prednisone (Prednisone) 40 mg DAILY PO ; Start 11/05/18 at 09:00; Stop 11/05/18 at 09:00; Status DC Levothyroxine Sodium (Synthroid) 88 mcg DAILY06 PO Last administered on 05:35; Start 11/04/18 at 13:00 Prednisone (Prednisone) 20 mg DAILY PO ; Start 11/05/18 at 09:00; Stop 11/05/18 at 09:00; Status DC Diltiazem HCl (Cardizem 24hr Cd) 120 mg DAILY PO Last administered on 11/05/18 08:18; Start 11/04/18 at 13:00 Magnesium Chloride (Mag Delay) 64 mg DAILY PO Last administered on 11/05/18 08: 18; Start 11/04/18 at 13:00 Pantoprazole Sodium (Protonix) 40 mg DAILYAC PO Last administered on 11/05/18 08:17; Start 11/04/18 at 13:00 Sertraline HCl (Zoloft) 50 mg QHS PO Last administered on 11/04/18 21:26; Start 11/04/18 at 21:00 Prednisone (Prednisone) 20 mg DAILY PO Last administered on 11/05/18 08:18; Start 11/05/18 at 09:00 Calcium Carbonate/ Glycine (Tums) 500 mg PRN Q4HRS PRN PO INDIGESTION Last administered on 11/04/18at 22:44; Start 4/4/19 at 22:45 Active Scripts Active Sertraline Hcl 25 Mg Tablet 50 Mg PO QHS 30 Days Magnesium Chloride 70 Mg Tablet. 64 Mg PO DAILY 30 Days Synthroid (Levothyroxine Sodium) 88 Mcg Tablet 88 Mcg PO DAILY06 30 Days Prednisone 20 Mg Tablet 20 Mg PO DAILY 30 Days Budesonide 0.5 Mg/2 Ml Ampul.neb 0.5 Mg NEB RTBID 30 Days Klor-Con 10 (Potassium Chloride) 10 Meq Tablet.er 1 Tab PO DAILY Lasix (Furosemide) 40 Mg Tablet 1 Tab PO DAILY Aspirin Ec (Aspirin) 81 Mg Tablet. 81 Mg PO DAILYWBKFT 30 Days Duoneb 0.5-3(2.5) Mg/3 Ml (Albuterol/Ipratropium) 3 Ml Ampul.neb 3 Ml NEB RTQID 30 Days Diltiazem 24HR Cd (Diltiazem Hcl) 120 Mg Cap.er.24h 120 Mg PO DAILY 30 Days Reported Hydrocodone-Apap 7.5-325 (Hydrocodone Bit/Acetaminophen) 1 Tab Tablet 1 Tab PO PRN Q6HRS PRN Omeprazole 40 Mg Capsule. 40 Mg PO DAILY Vitals/I & O Vital Sign - Last 24 Hours 11/04/18 11/04/18 11/04/18 11/04/18 13:13 13:37 15:00 15:38 Temp 98.1 98.1 98.1 98.1 Pulse 53 87 Resp 16 16 B/P (MAP) 85/50 (62) 105/71 (82) Pulse Ox 97 97 98 O2 Delivery Nasal Cannula Room Air Room Air Room Air O2 Flow Rate 3.0 11/04/18 11/04/18 11/04/18 11/04/18 18:38 19:20 19:28 19:29 Temp 97.5 97.5 Pulse 58 Resp 18 B/P (MAP) 102/66 (78) Pulse Ox 94 O2 Delivery Room Air Room Air Room Air Room Air 11/04/18 11/04/18 11/04/18 11/05/18 19:38 20:00 23:07 03:07 Temp 98.2 98.6 98.2 98.6 Pulse 88 81 Resp 18 18 B/P (MAP) 118/75 (89) 100/64 (76) Pulse Ox 94 94 95 O2 Delivery Room Air Room Air Room Air O2 Flow Rate 3.0 11/05/18 11/05/18 11/05/18 11/05/18 05:36 07:00 07:00 07:28 Temp 97.4 97.4 Pulse 72 Resp 18 B/P (MAP) 105/66 (79) Pulse Ox 95 97 O2 Delivery Room Air Room Air Room Air Room Air 11/05/18 11/05/18 11/05/18 11/05/18 07:33 07:36 08:18 11:00 Temp 97.4 97.4 Pulse 72 75 Resp 18 B/P (MAP) 105/66 98/63 (75) Pulse Ox 99 99 97 O2 Delivery Room Air Room Air Room Air 11/05/18 11:14 Pulse Ox 98 O2 Delivery Room Air Intake and Output 11/04/18 11/04/18 11/05/18 15:00 23:00 07:00 Intake Total 360 ml 180 ml Output Total 800 ml 400 ml 300 ml Balance -440 ml -400 ml -120 ml Nutrition Consultation Dietary Evaluation: Recommendations by RD: PPN/TPN Comments: continue TPN until able to advance diet to regular and pt consuming > 75% of his est nutr needs. Expected Outcomes/Goals: diet advance, tolerance- goal ongoing Interpretation of weight loss: >7.5% in 3 months Malnutrition Findings: Food and Nutrition Intake (Sev: <50% est energy req 5days Body Fat Depletion (Non Severe: Mild Depletion Weight Status: Emaciated LOURDES POLLOCK MD Nov 05, 2018 13:00
[2018-11-05] MEDS ORDERED: ONDANSETRON ODT 4 MG TAB.RAPDIS. PO PRN (13:15)
--- NOTE | 2018-11-05 13:32 | NUR ---
ADA following up with pt dc plan. Pt is from [facility] and can return upon dc. Pt's RN has been notified.
[2018-11-05 15:00] VITALS: BP 88/56
[2018-11-05] MEDS: fentaNYL PF VIAL 100 MCG/2 ML VIAL IV PRN ×2 (18:13→22:43)
[2018-11-05 19:00] VITALS: BP 92/59
[2018-11-05] MEDS: SERTRALINE 50 MG TABLET. PO SCH (21:03)
[2018-11-05] MEDS: LACTOBACILLUS RHAMNOSUS GG 1 CAPSULE. PO SCH (21:03)
[2018-11-05 23:00] VITALS: BP 98/56
[2018-11-06] MEDS: fentaNYL PF VIAL 100 MCG/2 ML VIAL IV PRN ×6 (01:05→21:15)
[2018-11-06 03:00] VITALS: BP 93/62
[2018-11-06] MEDS: HYDROcodone/APAP 7.5/325MG 1 TAB TABLET PO PRN ×3 (03:16→15:55)
[2018-11-06] MEDS: PANTOPRAZOLE 40 MG TABLET.DR. PO SCH (05:13)
[2018-11-06] MEDS: LEVOTHYROXINE 88 MCG TABLET PO SCH (05:13)
[2018-11-06 07:00] VITALS: BP 120/71
[2018-11-06] MEDS: BUDESONIDE 0.5 MG/2 ML NEBU. NEB SCH ×2 (08:22→20:25)
[2018-11-06] MEDS: IPRATRPIUM/ALBUTEROL 0.5/2.5MG 3 ML NEBU. NEB SCH ×4 (08:22→20:25)
--- NOTE | 2018-11-06 09:17 | PDOC ---
REMBERTO WINSTON SUGARCANE PLANTER 11/06/18 0917: SURGICAL PROGRESS NOTE Subjective tolerating soft diet + flatus, no stool yet no nausea Vital Signs Vital Signs Date Time Temp Pulse Resp B/P (MAP) Pulse Ox O2 Delivery O2 Flow Rate FiO2 11/06/18 08:23 96 Room Air 11/06/18 07:00 97.4 70 18 120/71 (87) 3.0 97.4 I&O Intake and Output 11/06/18 07:00 Output Total 850 ml Balance -850 ml Output Urine Total 850 ml General: Alert, Oriented X3, Cooperative, No acute distress Abdomen: Soft, Other (ND) Labs Laboratory Tests Test 11/04/18 11:16 11/05/18 05:15 11/05/18 06:15 11/05/18 11:50 Glucose (Fingerstick) 157 mg/dL (70-99) 106 mg/dL (70-99) 105 mg/dL (70-99) Sodium Level 137 mmol/L (136-145) Potassium Level 4.2 mmol/L (3.5-5.1) Chloride Level 104 mmol/L (98-107) Carbon Dioxide Level 26 mmol/L (21-32) Anion Gap 7 (6-14) Blood Urea Nitrogen 15 mg/dL (8-26) Creatinine 0.6 mg/dL (0.7-1.3) Estimated GFR (Cockcroft-Gault) 131.0 Glucose Level 121 mg/dL (70-99) Calcium Level 8.0 mg/dL (8.5-10.1) Phosphorus Level 3.2 mg/dL (2.6-4.7) Magnesium Level 1.9 mg/dL (1.8-2.4) Laboratory Tests Test 11/05/18 11:50 Glucose (Fingerstick) 105 mg/dL (70-99) Problem List continue diet, would prefer to see BM prior to discharge JOHN GONZALEZ MD 11/06/18 1018: SURGICAL PROGRESS NOTE Assessment/Plan Overall improving. Agree with Nickels assessment and plan REMBERTO WINSTON SUGARCANE PLANTER Nov 06, 2018 09:17 JOHN GONZALEZ MD Nov 06, 2018 10:18
[2018-11-06] MEDS: MAGNESIUM CHLORIDE ER 64 MG TABLET.ER PO SCH (09:24)
[2018-11-06] MEDS: LACTOBACILLUS RHAMNOSUS GG 1 CAPSULE. PO SCH ×2 (09:24→21:15)
[2018-11-06] MEDS: predniSONE 20 MG TABLET PO SCH (09:25)
[2018-11-06] MEDS: ENOXAPARIN 40 MG/0.4 ML SYRINGE. SQ SCH (09:26)
[2018-11-06 11:00] VITALS: BP 95/62
--- NOTE | 2018-11-06 11:13 | PDOC ---
PROGRESS NOTES Subjective Subjective Patient continues to tolerate diet without nausea. Patient still with no BM or significant flatus. Objective Objective Vital Signs Date Time Temp Pulse Resp B/P (MAP) Pulse Ox O2 Delivery O2 Flow Rate FiO2 11/06/18 10:32 Room Air 11/06/18 09:24 70 120/71 11/06/18 08:23 96 11/06/18 07:00 97.4 18 3.0 97.4 Intake and Output 11/06/18 06:59 Output Total 850 ml Balance -850 ml Output Urine Total 850 ml Physical Exam Abdomen: Other (hypoactive BS non tenderr mild distention) Heart: Regular rate Extremities: No edema General: Alert Lungs: Other (course) Assessment Assessment 1. Recurrent small-bowel obstruction. 2. Chronic obstructive pulmonary disease 3. Severe protein malnutrition. 4. Pulmonary fibrosis. 5. Chronic diastolic congestive heart failure. 6. Hypertension, now hypotensive. 7. Osteoarthritis. 8. Hypothyroidism. 9. Benign prostatic hypertrophy. 10. Hx of untreated Hep c Plan Plan of Care Monitor bowel activity Slowly advance diet per surgery direction Continue PT and OT modalities. Comment Review of Relevant I have reviewed the following items sherine (where applicable) has been applied. Labs Laboratory Tests Test 11/04/18 11:16 11/05/18 05:15 11/05/18 06:15 11/05/18 11:50 Glucose (Fingerstick) 157 mg/dL (70-99) 106 mg/dL (70-99) 105 mg/dL (70-99) Sodium Level 137 mmol/L (136-145) Potassium Level 4.2 mmol/L (3.5-5.1) Chloride Level 104 mmol/L (98-107) Carbon Dioxide Level 26 mmol/L (21-32) Anion Gap 7 (6-14) Blood Urea Nitrogen 15 mg/dL (8-26) Creatinine 0.6 mg/dL (0.7-1.3) Estimated GFR (Cockcroft-Gault) 131.0 Glucose Level 121 mg/dL (70-99) Calcium Level 8.0 mg/dL (8.5-10.1) Phosphorus Level 3.2 mg/dL (2.6-4.7) Magnesium Level 1.9 mg/dL (1.8-2.4) Laboratory Tests Test 11/05/18 11:50 Glucose (Fingerstick) 105 mg/dL (70-99) Medications Current Medications Benzocaine (Hurricaine One) 1 spray 1X ONCE MM Last administered on 10/27/18 18:31; Start 10/27/18 at 18:30; Stop 10/27/18 at 18:31; Status DC Potassium Chloride/Sodium Chloride 1,000 ml @ 75 mls/hr [id number] IV Last administered on 10/28/18 08:41; Start 10/27/18 at 18:45; Stop 10/29/18 at 09:32 ; Status DC Throat Lozenges (Chloraseptic) 1 spray PRN Q2HR PRN PO SORE THROAT, 2ND CHOICE Last administered on 10/29/18 04:05; Start 10/27/18 at 18:45 Throat Lozenges (Cepacol Sore Throat Lozenge) 1 deniz PRN Q2HRS PRN PO SORE THROAT, 1ST CHOICE Last administered on 10/28/18 15:30; Start 10/27/18 at 18:45 Fentanyl Citrate (Fentanyl 2ml Vial) 50 mcg PRN Q3HRS PRN IV PAIN Last administered on 10/29/18 03:50; Start 10/27/18 at 19:15; Stop 10/29/18 at 11:30 ; Status DC Ondansetron HCl (Zofran) 4 mg PRN Q6HRS PRN IV NAUSEA/VOMITING; Start 10/27/18 at 19:45; Stop 11/05/18 at 13:03; Status DC Budesonide (Pulmicort) 0.5 mg RTBID NEB Last administered on 11/06/18 08:22; Start 10/27/18 at 20:30 Albuterol/ Ipratropium (Duoneb) 3 ml RTQID NEB Last administered on 11/06/18 08 :22; Start 10/27/18 at 20:30 Enoxaparin Sodium (Lovenox 40mg Syringe) 40 mg Q24H SQ Last administered on 11/06 09:26; Start 10/28/18 at 09:00 Methylprednisolone Sodium Succinate (SOLU-Medrol 40MG VIAL) 40 mg DAILY IV Last administered on 11/04/18 07:46; Start 10/28/18 at 09:00; Stop 11/04/18 at 12 :27; Status DC Info (Tpn Per Pharmacy) 1 each PRN DAILY PRN MC SEE COMMENTS Last administered on 11/04/18at 11:20; Start 10/28/18 at 11:45; Stop 11/05/18 at 12:57; Status DC Amino Acids/ Glycerin/ Electrolytes 1,000 ml @ 80 mls/hr [id number] IV Last administered on 10/28/18at 12:25; Start 10/28/18 at 11:45; Stop 10/28/18 at 21:59 ; Status DC Lidocaine/Sodium Bicarbonate (Buffered Lidocaine 1%) 3 ml STK-MED ONCE .ROUTE ; Start 10/28/18 at 12:27; Stop 10/28/18 at 12:28; Status DC Lidocaine/Sodium Bicarbonate (Buffered Lidocaine 1%) 4 ml 1X ONCE INJ Last administered on 10/28/18at 13:11; Start 10/28/18 at 12:45; Stop 10/28/18 at 12:46 ; Status DC Sodium Chloride 90 meq/Potassium Chloride 50 meq/ Potassium Phosphate 13.6 mmol/ Magnesium Sulfate 10 meq/ Calcium Gluconate 10 meq/ Multivitamins 10 ml/Chromium / Copper/Manganese/ Seleni/Zn 1 ml/ Total Parenteral Nutrition/Amino Acids/ Dextrose/ Fat Emulsion Intravenous 1,512 ml @ 63 mls/hr TPN CONT IV Last administered on 10/28/18at 22:08; Start 10/28/18 at 22:00; Stop 10/29/18 at 21:59 ; Status DC Morphine Sulfate (Morphine Sulfate) 4 mg PRN Q2HR PRN IV PAIN Last administered on 10/31/18at 00:14; Start 10/29/18 at 11:30; Stop 10/31/18 at 13:03 ; Status DC Sodium Chloride 90 meq/Potassium Chloride 50 meq/ Potassium Phosphate 13.6 mmol/ Magnesium Sulfate 10 meq/ Calcium Gluconate 10 meq/ Multivitamins 10 ml/Chromium / Copper/Manganese/ Seleni/Zn 1 ml/ Total Parenteral Nutrition/Amino Acids/ Dextrose/ Fat Emulsion Intravenous 1,512 ml @ 63 mls/hr TPN CONT IV Last administered on 10/29/18at 22:32; Start 10/29/18 at 22:00; Stop 10/30/18 at 21:59 ; Status DC Albuterol Sulfate (Ventolin Neb Soln) 2.5 mg PRN Q4HRS PRN NEB SHORTNESS OF BREATH; Start 10/30/18 at 10:00 Sodium Chloride 90 meq/Potassium Chloride 50 meq/ Potassium Phosphate 13.6 mmol/ Magnesium Sulfate 10 meq/ Calcium Gluconate 10 meq/ Multivitamins 10 ml/Chromium / Copper/Manganese/ Seleni/Zn 1 ml/ Total Parenteral Nutrition/Amino Acids/ Dextrose/ Fat Emulsion Intravenous 1,248 ml @ 52 mls/hr TPN CONT IV Last administered on 10/30/18at 22:48; Start 10/30/18 at 22:00; Stop 10/31/18 at 21:59 ; Status DC Levofloxacin/ Dextrose 100 ml @ 100 mls/hr Q24H IV Last administered on at 08:22; Start 10/31/18 at 09:00; Stop 11/05/18 at 12:57; Status DC Furosemide (Lasix) 20 mg 1X ONCE IVP Last administered on 10/31/18at 09:08; Start 10/31/18 at 09:00; Stop 10/31/18 at 09:01; Status DC Sodium Chloride 90 meq/Potassium Chloride 50 meq/ Potassium Phosphate 13.6 mmol/ Magnesium Sulfate 10 meq/ Calcium Gluconate 10 meq/ Multivitamins 10 ml/Chromium / Copper/Manganese/ Seleni/Zn 1 ml/ Total Parenteral Nutrition/Amino Acids/ Dextrose/ Fat Emulsion Intravenous 1,248 ml @ 52 mls/hr TPN CONT IV Last administered on 10/31/18at 23:35; Start 10/31/18 at 22:00; Stop 11/01/18 at 21:59 ; Status DC Fentanyl Citrate (Fentanyl 2ml Vial) 25 mcg PRN Q2HR PRN IV MODERATE PAIN Last administered on 11/06/18at 09:23; Start 10/31/18 at 13:15 Sodium Chloride 70 meq/Potassium Chloride 50 meq/ Potassium Phosphate 13.6 mmol/ Magnesium Sulfate 10 meq/ Calcium Gluconate 10 meq/ Multivitamins 10 ml/Chromium / Copper/Manganese/ Seleni/Zn 1 ml/ Total Parenteral Nutrition/Amino Acids/ Dextrose/ Fat Emulsion Intravenous 1,248 ml @ 52 mls/hr TPN CONT IV Last administered on 11/01/18at 22:21; Start 11/01/18 at 22:00; Stop 11/02/18 at 21:59; Status DC Barium Sulfate (Liquid E-Z Paque) 710 ml 1X ONCE PO Last administered on at 11:15; Start 11/02/18 at 11:15; Stop 11/02/18 at 11:16; Status DC Sodium Chloride 70 meq/Potassium Chloride 50 meq/ Potassium Phosphate 13.6 mmol/ Magnesium Sulfate 10 meq/ Calcium Gluconate 10 meq/ Multivitamins 10 ml/Chromium / Copper/Manganese/ Seleni/Zn 1 ml/ Total Parenteral Nutrition/Amino Acids/ Dextrose/ Fat Emulsion Intravenous 1,248 ml @ 52 mls/hr TPN CONT IV Last administered on 11/02/18at 21:39; Start 11/02/18 at 22:00; Stop 11/03/18 at 21:59; Status DC Sodium Chloride 70 meq/Potassium Chloride 50 meq/ Potassium Phosphate 13.6 mmol/ Magnesium Sulfate 10 meq/ Calcium Gluconate 10 meq/ Multivitamins 10 ml/Chromium / Copper/Manganese/ Seleni/Zn 1 ml/ Total Parenteral Nutrition/Amino Acids/ Dextrose/ Fat Emulsion Intravenous 1,248 ml @ 52 mls/hr TPN CONT IV Last administered on 11/03/18at 21:31; Start 11/03/18 at 22:00; Stop 11/04/18 at 21:59; Status DC Sodium Chloride 70 meq/Potassium Chloride 50 meq/ Potassium Phosphate 13.6 mmol/ Magnesium Sulfate 10 meq/ Calcium Gluconate 10 meq/ Multivitamins 10 ml/Chromium / Copper/Manganese/ Seleni/Zn 1 ml/ Total Parenteral Nutrition/Amino Acids/ Dextrose/ Fat Emulsion Intravenous 1,248 ml @ 52 mls/hr TPN CONT IV Last administered on 11/04/18at 21:26; Start 11/04/18 at 22:00; Stop 11/05/18 at 21:59; Status DC Acetaminophen/ Hydrocodone Bitart (Lortab 7.5/325) 1 tab PRN Q6HRS PRN PO PAIN MILD TO MOD Last administered on 11/04/18at 14:18; Start 11/04/18 at 12:30 Acetaminophen/ Hydrocodone Bitart (Lortab 7.5/325) 2 tab PRN Q6HRS PRN PO PAIN SEVERE Last administered on 11/06/18at 10:32; Start 11/04/18 at 12:30 Prednisone (Prednisone) 40 mg DAILY PO ; Start 11/05/18 at 09:00; Stop 11/05/18 at 09:00; Status DC Levothyroxine Sodium (Synthroid) 88 mcg DAILY06 PO Last administered on 05:13; Start 11/04/18 at 13:00 Prednisone (Prednisone) 20 mg DAILY PO ; Start 11/05/18 at 09:00; Stop 11/05/18 at 09:00; Status DC Diltiazem HCl (Cardizem 24hr Cd) 120 mg DAILY PO Last administered on 11/06/18 09:24; Start 11/04/18 at 13:00 Magnesium Chloride (Mag Delay) 64 mg DAILY PO Last administered on 11/06/18 09: 24; Start 11/04/18 at 13:00 Pantoprazole Sodium (Protonix) 40 mg DAILYAC PO Last administered on 11/06/18 05:13; Start 11/04/18 at 13:00 Sertraline HCl (Zoloft) 50 mg QHS PO Last administered on 11/05/18 21:03; Start 11/04/18 at 21:00 Prednisone (Prednisone) 20 mg DAILY PO Last administered on 11/06/18 09:25; Start 11/05/18 at 09:00 Calcium Carbonate/ Glycine (Tums) 500 mg PRN Q4HRS PRN PO INDIGESTION Last administered on 11/04/18 22:44; Start 11/04/18 at 22:45 Ondansetron HCl (Zofran Odt) 4 mg PRN Q4HRS PRN PO NAUSEA/VOMITING; Start at 13:15 Lactobacillus Rhamnosus (Culturelle) 1 cap BID PO Last administered on 09:24; Start 11/05/18 at 21:00 Active Scripts Active Sertraline Hcl 25 Mg Tablet 50 Mg PO QHS 30 Days Magnesium Chloride 70 Mg Tablet.dr 64 Mg PO DAILY 30 Days Synthroid (Levothyroxine Sodium) 88 Mcg Tablet 88 Mcg PO DAILY06 30 Days Prednisone 20 Mg Tablet 20 Mg PO DAILY 30 Days Budesonide 0.5 Mg/2 Ml Ampul.neb 0.5 Mg NEB RTBID 30 Days Klor-Con 10 (Potassium Chloride) 10 Meq Tablet.er 1 Tab PO DAILY Lasix (Furosemide) 40 Mg Tablet 1 Tab PO DAILY Aspirin Ec (Aspirin) 81 Mg Tablet. 81 Mg PO DAILYWBKFT 30 Days Duoneb 0.5-3(2.5) Mg/3 Ml (Albuterol/Ipratropium) 3 Ml Ampul.neb 3 Ml NEB RTQID 30 Days Diltiazem 24HR Cd (Diltiazem Hcl) 120 Mg Cap.er.24h 120 Mg PO DAILY 30 Days Reported Hydrocodone-Apap 7.5-325 (Hydrocodone Bit/Acetaminophen) 1 Tab Tablet 1 Tab PO PRN Q6HRS PRN Omeprazole 40 Mg Capsule. 40 Mg PO DAILY Vitals/I & O Vital Sign - Last 24 Hours 11/05/18 11/05/18 11/05/18 11/05/18 11:14 12:58 15:00 15:22 Temp 98.0 98.0 Pulse 101 Resp 18 B/P (MAP) 88/56 (67) Pulse Ox 98 90 90 O2 Delivery Room Air Room Air Room Air Room Air 11/05/18 11/05/18 11/05/18 11/05/18 18:13 19:00 19:51 20:00 Temp 98.1 98.1 Pulse 80 Resp 18 18 B/P (MAP) 92/59 (70) Pulse Ox 96 O2 Delivery Room Air Room Air Room Air Room Air 11/05/18 11/05/18 11/05/18 11/06/18 20:21 22:43 23:00 01:05 Temp 98.1 98.1 Pulse 67 Resp 18 18 18 B/P (MAP) 98/56 (70) Pulse Ox 95 94 O2 Delivery Room Air Room Air Room Air Room Air 11/06/18 11/06/18 11/06/18 11/06/18 03:00 03:16 04:16 05:13 Temp 97.9 97.9 Pulse 73 Resp 18 18 16 20 B/P (MAP) 93/62 (72) Pulse Ox 95 O2 Delivery Room Air Room Air Room Air Room Air 11/06/18 11/06/18 11/06/18 11/06/18 05:43 07:00 08:23 09:23 Temp 97.4 97.4 Pulse 70 Resp 16 18 B/P (MAP) 120/71 (87) Pulse Ox 97 96 O2 Delivery Nasal Cannula Room Air Room Air O2 Flow Rate 3.0 11/06/18 11/06/18 11/06/18 09:24 10:00 10:32 Pulse 70 B/P (MAP) 120/71 O2 Delivery Room Air Room Air Intake and Output 11/05/18 11/05/18 11/06/18 14:59 22:59 06:59 Output Total 100 ml 250 ml 500 ml Balance -100 ml -250 ml -500 ml Nutrition Consultation Dietary Evaluation: Recommendations by RD: PPN/TPN Comments: continue TPN until able to advance diet to regular and pt consuming > 75% of his est nutr needs. Expected Outcomes/Goals: diet advance, tolerance- goal ongoing Interpretation of weight loss: >7.5% in 3 months Malnutrition Findings: Food and Nutrition Intake (Sev: <50% est energy req 5days Body Fat Depletion (Non Severe: Mild Depletion Weight Status: Emaciated LOURDES POLLOCK MD Nov 06, 2018 11:13
--- NOTE | 2018-11-06 14:18 | SNU/HH DC ---
DISCHARGE ORDERS DISCHARGE INFORMATION: DISCHARGE DATE: Nov 06, 2018 FINAL DIAGNOSIS Small bowel obstruction CONDITION ON DISCHARGE: Stable CODE STATUS: Code Status: Full USP: SNF STAY <30 DAYS: Yes HOSPICE: HOSPICE: No HOSPICE EVAL & TREAT: No LTAC: ADMIT TO LTAC: No POST DISCHARGE ORDERS: ACTIVITY ORDERS: Activity as tolerated WEIGHT BEARING STATUS: No restrictions BATHING ORDERS: Shower-keep dressing dry, No Tub Bath until see DIET AFTER DISCHARGE: Cardiac WOUND/INCISION CARE: Change dressing CHECKS AFTER DISCHARGE: CHECKS AFTER DISCHARGE: Check blood press - daily TREATMENT/EQUIPMENT ORDERS: ADAPTIVE EQUIPMENT NEEDED: None RESPIRATORY EQUIPMENT NEEDED: Oxygen, Nebulizer Physical Therapy For: Evalulation/Treatment Occupational Therapy For: Evaluation/Treatment DISCHARGE MEDICATIONS: Home Meds Active Scripts Sertraline Hcl (SERTRALINE HCL) 25 Mg Tablet, 50 MG PO QHS for depression for 30 Days, #60 TAB Prov:LOURDES POLLOCK MD 10/01/18 Magnesium Chloride (Magnesium Chloride) 70 Mg Tablet.dr, 64 MG PO DAILY for SVT for 30 Days, #30 TAB.SR 3 Refills Prov:LOURDES POLLOCK MD 08/30/18 Levothyroxine Sodium (SYNTHROID) 88 Mcg Tablet, 88 MCG PO DAILY06 for low thyroid for 30 Days, #30 TAB 3 Refills Prov:LOURDES POLLOCK MD 08/30/18 Prednisone (PREDNISONE) 20 Mg Tablet, 20 MG PO DAILY for IPF for 30 Days, #30 TAB 3 Refills Prov:LOURDES POLLOCK MD 08/30/18 Budesonide (BUDESONIDE) 0.5 Mg/2 Ml Ampul.neb, 0.5 MG NEB RTBID for copd for 30 Days, #60 EACH 3 Refills Prov:LOURDES POLLOCK MD 08/30/18 Potassium Chloride (KLOR-CON 10) 10 Meq Tablet.er, 1 TAB PO DAILY for chf, #30 TAB 5 Refills Prov:LOURDES POLLOCK MD 07/16/18 Furosemide (LASIX) 40 Mg Tablet, 1 TAB PO DAILY for chf, #30 TAB 5 Refills Prov:LOURDES POLLOCK MD 07/16/18 Aspirin (ASPIRIN EC) 81 Mg Tablet.dr, 81 MG PO DAILYWBKFT for afib for 30 Days, #30 TAB.SR Prov:LOURDES POLLOCK MD 07/16/18 Ipratropium/Albuterol Sulfate (DUONEB 0.5-3(2.5) MG/3 ML) 3 Ml Ampul.neb, 3 ML NEB RTQID for breathing for 30 Days, #120 EACH Prov:Steve DALTON MD 07/01/18 Diltiazem Hcl (DILTIAZEM 24HR CD) 120 Mg Cap.er.24h, 120 MG PO DAILY for afib for 30 Days, #30 CAP.SR 6 Refills Prov:Steve DALTON MD 07/01/18 Reported Medications Hydrocodone Bit/Acetaminophen (HYDROCODONE-APAP 7.5-325 ) 1 Tab Tablet, 1 TAB PO PRN Q6HRS PRN for PAIN, TAB 0 Refills 08/26/18 Omeprazole (OMEPRAZOLE) 40 Mg Capsule.dr, 40 MG PO DAILY for GERD, CAP 08/26/18 JOHN GONZALEZ MD Nov 06, 2018 14:18
[2018-11-06 15:00] VITALS: BP 101/59
[2018-11-06 19:00] VITALS: BP 97/65
--- NOTE | 2018-11-06 19:28 | NUR ---
This nurse called PP and nursing supervisor [employer] to set up time and transportation for pt's discharge today and was informed by PP that pt must now be RESCREENED because it has been greater than 7 days.
[2018-11-06] MEDS: SERTRALINE 50 MG TABLET. PO SCH (21:15)
[2018-11-06 23:00] VITALS: BP 93/62
[2018-11-07 03:00] VITALS: BP 106/67
[2018-11-07] MEDS: fentaNYL PF VIAL 100 MCG/2 ML VIAL IV PRN ×5 (03:58→20:56)
[2018-11-07] MEDS: LEVOTHYROXINE 88 MCG TABLET PO SCH (05:46)
[2018-11-07] MEDS: HYDROcodone/APAP 7.5/325MG 1 TAB TABLET PO PRN ×4 (05:50→23:57)
[2018-11-07 07:00] VITALS: BP 107/64
[2018-11-07] MEDS: IPRATRPIUM/ALBUTEROL 0.5/2.5MG 3 ML NEBU. NEB SCH ×4 (07:26→20:27)
[2018-11-07] MEDS: BUDESONIDE 0.5 MG/2 ML NEBU. NEB SCH ×2 (07:26→20:27)
[2018-11-07] MEDS: PANTOPRAZOLE 40 MG TABLET.DR. PO SCH (07:44)
[2018-11-07] MEDS: predniSONE 20 MG TABLET PO SCH (08:42)
[2018-11-07] MEDS: LACTOBACILLUS RHAMNOSUS GG 1 CAPSULE. PO SCH ×2 (08:42→20:56)
[2018-11-07] MEDS: ENOXAPARIN 40 MG/0.4 ML SYRINGE. SQ SCH (08:43)
[2018-11-07] MEDS: MAGNESIUM CHLORIDE ER 64 MG TABLET.ER PO SCH (08:56)
--- NOTE | 2018-11-07 09:10 | PDOC ---
REMBERTO W[employer]ON [employer] 11/07/18 0910: SURGICAL PROGRESS NOTE Subjective no BM yesterday, last noted 11/05--+ flatus, tolerating diet Vital Signs Vital Signs Date Time Temp Pulse Resp B/P (MAP) Pulse Ox O2 Delivery O2 Flow Rate FiO2 11/07/18 08:44 Room Air 11/07/18 08:43 67 107/64 11/07/18 07:24 98 11/07/18 07:00 98.1 16 98.1 11/07/18 03:00 3.0 I&O Intake and Output 11/07/18 07:00 Intake Total 940 ml Output Total 900 ml Balance 40 ml Intake Oral 940 ml Output Urine Total 900 ml # Voids 100 General: Alert, Oriented X3, Cooperative, No acute distress Abdomen: Soft, No tenderness Labs Laboratory Tests Test 11/05/18 11:50 Glucose (Fingerstick) 105 mg/dL (70-99) Assessment/Plan will add some miralax continue diet JOHN GONZALEZ MD 11/07/18 1243: SURGICAL PROGRESS NOTE Assessment/Plan Agree with Binta's assessment and plan. REMBERTO WINSTON [employer] Nov 07, 2018 09:10 JOHN GONZALEZ MD Nov 07, 2018 12:43
--- NOTE | 2018-11-07 09:58 | PDOC ---
PROGRESS NOTES Subjective Subjective Patient tolerating diet denies nausea vomiting. Patient still has no flatus or bowel movement. Objective Objective Vital Signs Date Time Temp Pulse Resp B/P (MAP) Pulse Ox O2 Delivery O2 Flow Rate FiO2 11/07/18 09:14 Room Air 11/07/18 08:43 67 107/64 11/07/18 07:24 98 11/07/18 07:00 98.1 16 98.1 11/07/18 03:00 3.0 Intake and Output 11/07/18 07:00 Intake Total 940 ml Output Total 900 ml Balance 40 ml Intake Oral 940 ml Output Urine Total 900 ml # Voids 100 Physical Exam Abdomen: Other (no bowel sounds heard today increased distention noted. Nontender.) Heart: Regular rate Extremities: No edema General: Alert Lungs: Clear to auscultation Assessment Assessment 1. Recurrent small-bowel obstruction. 2. Chronic obstructive pulmonary disease 3. Severe protein malnutrition. 4. Pulmonary fibrosis. 5. Chronic diastolic congestive heart failure. 6. Hypertension, now hypotensive. 7. Osteoarthritis. 8. Hypothyroidism. 9. Benign prostatic hypertrophy. 10. Hx of untreated Hep c Plan Plan of Care Await bowel function. Recheck CBC and BMP. Consider KUB and upright if increased distention and no BM Slowly advance diet per surgery direction Continue PT and OT modalities. Comment Review of Relevant I have reviewed the following items sherine (where applicable) has been applied. Labs Laboratory Tests Test 11/05/18 11:50 Glucose (Fingerstick) 105 mg/dL (70-99) Medications Current Medications Benzocaine (Hurricaine One) 1 spray 1X ONCE MM Last administered on 10/27/18at 18:31; Start 10/27/18 at 18:30; Stop 10/27/18 at 18:31; Status DC Potassium Chloride/Sodium Chloride 1,000 ml @ 75 mls/hr [id number] IV Last administered on 10/28/18at 08:41; Start 10/27/18 at 18:45; Stop 10/29/18 at 09:32 ; Status DC Throat Lozenges (Chloraseptic) 1 spray PRN Q2HR PRN PO SORE THROAT, 2ND CHOICE Last administered on 10/29/18at 04:05; Start 10/27/18 at 18:45 Throat Lozenges (Cepacol Sore Throat Lozenge) 1 deniz PRN Q2HRS PRN PO SORE THROAT, 1ST CHOICE Last administered on 10/28/18 15:30; Start 10/27/18 at 18:45 Fentanyl Citrate (Fentanyl 2ml Vial) 50 mcg PRN Q3HRS PRN IV PAIN Last administered on 10/29/18 03:50; Start 10/27/18 at 19:15; Stop 10/29/18 at 11:30 ; Status DC Ondansetron HCl (Zofran) 4 mg PRN Q6HRS PRN IV NAUSEA/VOMITING; Start 10/27/18 at 19:45; Stop 11/05/18 at 13:03; Status DC Budesonide (Pulmicort) 0.5 mg RTBID NEB Last administered on 11/07/18 07:26; Start 10/27/18 at 20:30 Albuterol/ Ipratropium (Duoneb) 3 ml RTQID NEB Last administered on 11/07/18 07 :26; Start 10/27/18 at 20:30 Enoxaparin Sodium (Lovenox 40mg Syringe) 40 mg Q24H SQ Last administered on 11/07 08:43; Start 10/28/18 at 09:00 Methylprednisolone Sodium Succinate (SOLU-Medrol 40MG VIAL) 40 mg DAILY IV Last administered on 11/04/18 07:46; Start 10/28/18 at 09:00; Stop 11/04/18 at 12 :27; Status DC Info (Tpn Per Pharmacy) 1 each PRN DAILY PRN MC SEE COMMENTS Last administered on 11/04/18 11:20; Start 10/28/18 at 11:45; Stop 11/05/18 at 12:57; Status DC Amino Acids/ Glycerin/ Electrolytes 1,000 ml @ 80 mls/hr [id number] IV Last administered on 10/28/18 12:25; Start 10/28/18 at 11:45; Stop 10/28/18 at 21:59 ; Status DC Lidocaine/Sodium Bicarbonate (Buffered Lidocaine 1%) 3 ml STK-MED ONCE .ROUTE ; Start 10/28/18 at 12:27; Stop 10/28/18 at 12:28; Status DC Lidocaine/Sodium Bicarbonate (Buffered Lidocaine 1%) 4 ml 1X ONCE INJ Last administered on 3/28/19at 13:11; Start 10/28/18 at 12:45; Stop 10/28/18 at 12:46 ; Status DC Sodium Chloride 90 meq/Potassium Chloride 50 meq/ Potassium Phosphate 13.6 mmol/ Magnesium Sulfate 10 meq/ Calcium Gluconate 10 meq/ Multivitamins 10 ml/Chromium / Copper/Manganese/ Seleni/Zn 1 ml/ Total Parenteral Nutrition/Amino Acids/ Dextrose/ Fat Emulsion Intravenous 1,512 ml @ 63 mls/hr TPN CONT IV Last administered on 10/28/18at 22:08; Start 10/28/18 at 22:00; Stop 10/29/18 at 21:59 ; Status DC Morphine Sulfate (Morphine Sulfate) 4 mg PRN Q2HR PRN IV PAIN Last administered on 10/31/18at 00:14; Start 10/29/18 at 11:30; Stop 10/31/18 at 13:03 ; Status DC Sodium Chloride 90 meq/Potassium Chloride 50 meq/ Potassium Phosphate 13.6 mmol/ Magnesium Sulfate 10 meq/ Calcium Gluconate 10 meq/ Multivitamins 10 ml/Chromium / Copper/Manganese/ Seleni/Zn 1 ml/ Total Parenteral Nutrition/Amino Acids/ Dextrose/ Fat Emulsion Intravenous 1,512 ml @ 63 mls/hr TPN CONT IV Last administered on 10/29/18at 22:32; Start 10/29/18 at 22:00; Stop 10/30/18 at 21:59 ; Status DC Albuterol Sulfate (Ventolin Neb Soln) 2.5 mg PRN Q4HRS PRN NEB SHORTNESS OF BREATH; Start 10/30/18 at 10:00 Sodium Chloride 90 meq/Potassium Chloride 50 meq/ Potassium Phosphate 13.6 mmol/ Magnesium Sulfate 10 meq/ Calcium Gluconate 10 meq/ Multivitamins 10 ml/Chromium / Copper/Manganese/ Seleni/Zn 1 ml/ Total Parenteral Nutrition/Amino Acids/ Dextrose/ Fat Emulsion Intravenous 1,248 ml @ 52 mls/hr TPN CONT IV Last administered on 10/30/18at 22:48; Start 10/30/18 at 22:00; Stop 10/31/18 at 21:59 ; Status DC Levofloxacin/ Dextrose 100 ml @ 100 mls/hr Q24H IV Last administered on at 08:22; Start 10/31/18 at 09:00; Stop 11/05/18 at 12:57; Status DC Furosemide (Lasix) 20 mg 1X ONCE IVP Last administered on 10/31/18at 09:08; Start 10/31/18 at 09:00; Stop 10/31/18 at 09:01; Status DC Sodium Chloride 90 meq/Potassium Chloride 50 meq/ Potassium Phosphate 13.6 mmol/ Magnesium Sulfate 10 meq/ Calcium Gluconate 10 meq/ Multivitamins 10 ml/Chromium / Copper/Manganese/ Seleni/Zn 1 ml/ Total Parenteral Nutrition/Amino Acids/ Dextrose/ Fat Emulsion Intravenous 1,248 ml @ 52 mls/hr TPN CONT IV Last administered on 10/31/18at 23:35; Start 10/31/18 at 22:00; Stop 11/01/18 at 21:59 ; Status DC Fentanyl Citrate (Fentanyl 2ml Vial) 25 mcg PRN Q2HR PRN IV MODERATE PAIN Last administered on 11/07/18at 08:44; Start 10/31/18 at 13:15 Sodium Chloride 70 meq/Potassium Chloride 50 meq/ Potassium Phosphate 13.6 mmol/ Magnesium Sulfate 10 meq/ Calcium Gluconate 10 meq/ Multivitamins 10 ml/Chromium / Copper/Manganese/ Seleni/Zn 1 ml/ Total Parenteral Nutrition/Amino Acids/ Dextrose/ Fat Emulsion Intravenous 1,248 ml @ 52 mls/hr TPN CONT IV Last administered on 11/01/18at 22:21; Start 11/01/18 at 22:00; Stop 11/02/18 at 21:59; Status DC Barium Sulfate (Liquid E-Z Paque) 710 ml 1X ONCE PO Last administered on at 11:15; Start 11/02/18 at 11:15; Stop 11/02/18 at 11:16; Status DC Sodium Chloride 70 meq/Potassium Chloride 50 meq/ Potassium Phosphate 13.6 mmol/ Magnesium Sulfate 10 meq/ Calcium Gluconate 10 meq/ Multivitamins 10 ml/Chromium / Copper/Manganese/ Seleni/Zn 1 ml/ Total Parenteral Nutrition/Amino Acids/ Dextrose/ Fat Emulsion Intravenous 1,248 ml @ 52 mls/hr TPN CONT IV Last administered on 11/02/18at 21:39; Start 11/02/18 at 22:00; Stop 11/03/18 at 21:59; Status DC Sodium Chloride 70 meq/Potassium Chloride 50 meq/ Potassium Phosphate 13.6 mmol/ Magnesium Sulfate 10 meq/ Calcium Gluconate 10 meq/ Multivitamins 10 ml/Chromium / Copper/Manganese/ Seleni/Zn 1 ml/ Total Parenteral Nutrition/Amino Acids/ Dextrose/ Fat Emulsion Intravenous 1,248 ml @ 52 mls/hr TPN CONT IV Last administered on 11/03/18at 21:31; Start 11/03/18 at 22:00; Stop 11/04/18 at 21:59; Status DC Sodium Chloride 70 meq/Potassium Chloride 50 meq/ Potassium Phosphate 13.6 mmol/ Magnesium Sulfate 10 meq/ Calcium Gluconate 10 meq/ Multivitamins 10 ml/Chromium / Copper/Manganese/ Seleni/Zn 1 ml/ Total Parenteral Nutrition/Amino Acids/ Dextrose/ Fat Emulsion Intravenous 1,248 ml @ 52 mls/hr TPN CONT IV Last administered on 11/04/18 21:26; Start 11/04/18 at 22:00; Stop 11/05/18 at 21:59; Status DC Acetaminophen/ Hydrocodone Bitart (Lortab 7.5/325) 1 tab PRN Q6HRS PRN PO PAIN MILD TO MOD Last administered on 11/04/18 14:18; Start 11/04/18 at 12:30 Acetaminophen/ Hydrocodone Bitart (Lortab 7.5/325) 2 tab PRN Q6HRS PRN PO PAIN SEVERE Last administered on 11/07/18at 05:50; Start 11/04/18 at 12:30 Prednisone (Prednisone) 40 mg DAILY PO ; Start 11/05/18 at 09:00; Stop 11/05/18 at 09:00; Status DC Levothyroxine Sodium (Synthroid) 88 mcg DAILY06 PO Last administered on 05:46; Start 11/04/18 at 13:00 Prednisone (Prednisone) 20 mg DAILY PO ; Start 11/05/18 at 09:00; Stop 11/05/18 at 09:00; Status DC Diltiazem HCl (Cardizem 24hr Cd) 120 mg DAILY PO Last administered on 11/07/18 08:43; Start 11/04/18 at 13:00 Magnesium Chloride (Mag Delay) 64 mg DAILY PO Last administered on 11/07/18 08: 56; Start 11/04/18 at 13:00 Pantoprazole Sodium (Protonix) 40 mg DAILYAC PO Last administered on 4/7/19at 07:44; Start 11/04/18 at 13:00 Sertraline HCl (Zoloft) 50 mg QHS PO Last administered on 11/06/18at 21:15; Start 11/04/18 at 21:00 Prednisone (Prednisone) 20 mg DAILY PO Last administered on 11/07/18at 08:42; Start 11/05/18 at 09:00 Calcium Carbonate/ Glycine (Tums) 500 mg PRN Q4HRS PRN PO INDIGESTION Last administered on 11/04/18at 22:44; Start 11/04/18 at 22:45 Ondansetron HCl (Zofran Odt) 4 mg PRN Q4HRS PRN PO NAUSEA/VOMITING; Start at 13:15 Lactobacillus Rhamnosus (Culturelle) 1 cap BID PO Last administered on at 08:42; Start 11/05/18 at 21:00 Polyethylene Glycol (miraLAX PACKET) 17 gm DAILY PO ; Start 11/07/18 at 09:30 Active Scripts Active Sertraline Hcl 25 Mg Tablet 50 Mg PO QHS 30 Days Magnesium Chloride 70 Mg Tablet.dr 64 Mg PO DAILY 30 Days Synthroid (Levothyroxine Sodium) 88 Mcg Tablet 88 Mcg PO DAILY06 30 Days Prednisone 20 Mg Tablet 20 Mg PO DAILY 30 Days Budesonide 0.5 Mg/2 Ml Ampul.neb 0.5 Mg NEB RTBID 30 Days Klor-Con 10 (Potassium Chloride) 10 Meq Tablet.er 1 Tab PO DAILY Lasix (Furosemide) 40 Mg Tablet 1 Tab PO DAILY Aspirin Ec (Aspirin) 81 Mg Tablet.dr 81 Mg PO DAILYWBKFT 30 Days Duoneb 0.5-3(2.5) Mg/3 Ml (Albuterol/Ipratropium) 3 Ml Ampul.neb 3 Ml NEB RTQID 30 Days Diltiazem 24HR Cd (Diltiazem Hcl) 120 Mg Cap.er.24h 120 Mg PO DAILY 30 Days Reported Hydrocodone-Apap 7.5-325 (Hydrocodone Bit/Acetaminophen) 1 Tab Tablet 1 Tab PO PRN Q6HRS PRN Omeprazole 40 Mg Capsule. 40 Mg PO DAILY Vitals/I & O Vital Sign - Last 24 Hours 11/06/18 11/06/18 11/06/18 11/06/18 10:32 11:00 12:39 12:48 Temp 97.9 97.9 Pulse 73 Resp 18 B/P (MAP) 95/62 (73) Pulse Ox 95 95 O2 Delivery Room Air Nasal Cannula Room Air Room Air O2 Flow Rate 3.0 11/06/18 11/06/18 11/06/18 11/06/18 15:00 15:55 18:24 19:00 Temp 98.1 97.7 98.1 97.7 Pulse 81 74 Resp 18 18 B/P (MAP) 101/59 (73) 97/65 (76) Pulse Ox 92 94 O2 Delivery Nasal Cannula Room Air Room Air Nasal Cannula O2 Flow Rate 3.0 3.0 11/06/18 11/06/18 11/06/18 11/06/18 20:00 20:26 21:15 23:00 Temp 98.1 98.1 Pulse 72 Resp 16 18 B/P (MAP) 93/62 (72) Pulse Ox 95 95 O2 Delivery Room Air Room Air Nasal Cannula O2 Flow Rate 3.0 11/07/18 11/07/18 11/07/18 11/07/18 03:00 03:58 04:28 05:50 Temp 98.0 98.0 Pulse 64 Resp 18 16 16 16 B/P (MAP) 106/67 (80) Pulse Ox 95 O2 Delivery Nasal Cannula O2 Flow Rate 3.0 11/07/18 11/07/18 11/07/18 11/07/18 06:37 07:00 07:24 08:43 Temp 98.1 98.1 Pulse 67 67 Resp 16 16 B/P (MAP) 107/64 (78) 107/64 Pulse Ox 94 98 O2 Delivery Room Air Room Air Room Air 11/07/18 11/07/18 08:44 09:14 O2 Delivery Room Air Room Air Intake and Output 11/06/18 11/06/18 11/07/18 15:00 23:00 07:00 Intake Total 700 ml 240 ml Output Total 400 ml 500 ml Balance 700 ml -160 ml -500 ml Nutrition Consultation Dietary Evaluation: Recommendations by RD: PPN/TPN Comments: continue TPN until able to advance diet to regular and pt consuming > 75% of his est nutr needs. Expected Outcomes/Goals: diet advance, tolerance- goal ongoing Interpretation of weight loss: >7.5% in 3 months Malnutrition Findings: Food and Nutrition Intake (Sev: <50% est energy req 5days Body Fat Depletion (Non Severe: Mild Depletion Weight Status: Emaciated LOURDES POLLOCK MD Nov 07, 2018 09:58
[2018-11-07 10:02] LABS: HEMATOCRIT 30.4 % (39.0-53.0); HEMOGLOBIN 9.9 g/dL (13.0-17.5); RED BLOOD COUNT 3.15 x10^6/uL (4.30-5.70); RED CELL DISTRIBUTION WIDTH 14.3 % (11.5-14.5); WHITE BLOOD COUNT 8.6 x10^3/uL (4.0-11.0)
[2018-11-07 10:27] LABS: CREATININE 0.9 mg/dL (0.7-1.3); POTASSIUM 3.8 mmol/L (3.5-5.1)
[2018-11-07 11:00] VITALS: BP 85/61
[2018-11-07] MEDS: POLYETHYLENE GLYCOL 3350 17 GM PACKET. PO SCH (11:33)
[2018-11-07 15:00] VITALS: BP 113/69
[2018-11-07 19:00] VITALS: BP 107/70
[2018-11-07] MEDS: SERTRALINE 50 MG TABLET. PO SCH (20:52)
[2018-11-07 23:00] VITALS: BP 107/64
[2018-11-08 03:00] VITALS: BP 111/74
[2018-11-08] MEDS: LEVOTHYROXINE 88 MCG TABLET PO SCH (05:55)
[2018-11-08] MEDS: HYDROcodone/APAP 7.5/325MG 1 TAB TABLET PO PRN ×2 (05:59→12:08)
[2018-11-08 07:00] VITALS: BP 101/63
[2018-11-08] MEDS: BUDESONIDE 0.5 MG/2 ML NEBU. NEB SCH (07:00)
[2018-11-08] MEDS: IPRATRPIUM/ALBUTEROL 0.5/2.5MG 3 ML NEBU. NEB SCH ×3 (07:00→15:10)
[2018-11-08] MEDS: PANTOPRAZOLE 40 MG TABLET.DR. PO SCH (08:09)
[2018-11-08] MEDS: POLYETHYLENE GLYCOL 3350 17 GM PACKET. PO SCH (08:09)
[2018-11-08] MEDS: predniSONE 20 MG TABLET PO SCH (08:09)
[2018-11-08] MEDS: MAGNESIUM CHLORIDE ER 64 MG TABLET.ER PO SCH (08:10)
[2018-11-08] MEDS: LACTOBACILLUS RHAMNOSUS GG 1 CAPSULE. PO SCH (08:10)
[2018-11-08] MEDS: ENOXAPARIN 40 MG/0.4 ML SYRINGE. SQ SCH (08:10)
--- NOTE | 2018-11-08 08:48 | NUR ---
SW following for discharge planning. Discussed with RN, pt can discharge to [facility] today, SW awaiting pain medication script before setting up transportation. SW will continue to follow.
[2018-11-08 11:00] VITALS: BP 98/59
--- NOTE | 2018-11-08 11:31 | PDOC ---
SURGICAL PROGRESS NOTE Subjective eating, however no bowel function, minimal flatus now maybe a little more bloating Vital Signs Vital Signs Date Time Temp Pulse Resp B/P (MAP) Pulse Ox O2 Delivery O2 Flow Rate FiO2 11/08/18 10:59 92 Room Air 11/08/18 08:09 70 101/63 11/08/18 07:00 98.2 18 98.2 I&O Intake and Output 11/08/18 07:00 Intake Total 120 ml Output Total 700 ml Balance -580 ml Intake Oral 120 ml Output Urine Total 700 ml # Voids 2 General: Alert, Oriented X3, Cooperative, No acute distress Abdomen: Soft, Other (mildly distended) Labs Laboratory Tests Test 11/07/18 09:50 White Blood Count 8.6 x10^3/uL (4.0-11.0) Red Blood Count 3.15 x10^6/uL (4.30-5.70) Hemoglobin 9.9 g/dL (13.0-17.5) Hematocrit 30.4 % (39.0-53.0) Mean Corpuscular Volume 97 fL (79-100) Mean Corpuscular Hemoglobin 32 pg (25-35) Mean Corpuscular Hemoglobin Concent 33 g/dL (31-37) Red Cell Distribution Width 14.3 % (11.5-14.5) Platelet Count 291 x10^3/uL (140-400) Sodium Level 137 mmol/L (136-145) Potassium Level 3.8 mmol/L (3.5-5.1) Chloride Level 101 mmol/L (98-107) Carbon Dioxide Level 28 mmol/L (21-32) Anion Gap 8 (6-14) Blood Urea Nitrogen 12 mg/dL (8-26) Creatinine 0.9 mg/dL (0.7-1.3) Estimated GFR (Cockcroft-Gault) 82.0 Glucose Level 143 mg/dL (70-99) Calcium Level 8.0 mg/dL (8.5-10.1) Problem List will check xrays, will review with REMBERTO Pacheco APRN Nov 08, 2018 11:31
[2018-11-08] MEDS ORDERED: ALPRAZolam 0.5 MG TABLET PO PRN (13:30)
--- NOTE | 2018-11-08 13:50 | PDOC ---
PROGRESS NOTES Subjective Subjective Patient feeling better nursing reports improved BS. KUB upright today. still no BM Objective Objective Vital Signs Date Time Temp Pulse Resp B/P (MAP) Pulse Ox O2 Delivery O2 Flow Rate FiO2 11/08/18 13:23 Room Air 11/08/18 10:59 92 11/08/18 08:09 70 101/63 11/08/18 07:00 98.2 18 98.2 11/07/18 03:00 3.0 Intake and Output 11/08/18 07:00 Intake Total 120 ml Output Total 700 ml Balance -580 ml Intake Oral 120 ml Output Urine Total 700 ml # Voids 2 Physical Exam Abdomen: Other (Active BS, mild distention) Extremities: No edema General: Alert Lungs: Clear to auscultation Assessment Assessment 1. Recurrent small-bowel obstruction. 2. Chronic obstructive pulmonary disease 3. Severe protein malnutrition. 4. Pulmonary fibrosis. 5. Chronic diastolic congestive heart failure. 6. Hypertension, now hypotensive. 7. Osteoarthritis. 8. Hypothyroidism. 9. Benign prostatic hypertrophy. 10. Hx of untreated Hep c Plan Plan of Care Acute abd series pending Await bowel function. Slowly advance diet per surgery direction Continue PT and OT modalities. Comment Review of Relevant I have reviewed the following items sherine (where applicable) has been applied. Labs Laboratory Tests Test 11/07/18 09:50 White Blood Count 8.6 x10^3/uL (4.0-11.0) Red Blood Count 3.15 x10^6/uL (4.30-5.70) Hemoglobin 9.9 g/dL (13.0-17.5) Hematocrit 30.4 % (39.0-53.0) Mean Corpuscular Volume 97 fL (79-100) Mean Corpuscular Hemoglobin 32 pg (25-35) Mean Corpuscular Hemoglobin Concent 33 g/dL (31-37) Red Cell Distribution Width 14.3 % (11.5-14.5) Platelet Count 291 x10^3/uL (140-400) Sodium Level 137 mmol/L (136-145) Potassium Level 3.8 mmol/L (3.5-5.1) Chloride Level 101 mmol/L (98-107) Carbon Dioxide Level 28 mmol/L (21-32) Anion Gap 8 (6-14) Blood Urea Nitrogen 12 mg/dL (8-26) Creatinine 0.9 mg/dL (0.7-1.3) Estimated GFR (Cockcroft-Gault) 82.0 Glucose Level 143 mg/dL (70-99) Calcium Level 8.0 mg/dL (8.5-10.1) Medications Current Medications Benzocaine (Hurricaine One) 1 spray 1X ONCE MM Last administered on 10/27/18 18:31; Start 10/27/18 at 18:30; Stop 10/27/18 at 18:31; Status DC Potassium Chloride/Sodium Chloride 1,000 ml @ 75 mls/hr [id number] IV Last administered on 10/28/18 08:41; Start 10/27/18 at 18:45; Stop 10/29/18 at 09:32 ; Status DC Throat Lozenges (Chloraseptic) 1 spray PRN Q2HR PRN PO SORE THROAT, 2ND CHOICE Last administered on 10/29/18 04:05; Start 10/27/18 at 18:45 Throat Lozenges (Cepacol Sore Throat Lozenge) 1 deniz PRN Q2HRS PRN PO SORE THROAT, 1ST CHOICE Last administered on 10/28/18 15:30; Start 10/27/18 at 18:45 Fentanyl Citrate (Fentanyl 2ml Vial) 50 mcg PRN Q3HRS PRN IV PAIN Last administered on 10/29/18 03:50; Start 10/27/18 at 19:15; Stop 10/29/18 at 11:30 ; Status DC Ondansetron HCl (Zofran) 4 mg PRN Q6HRS PRN IV NAUSEA/VOMITING; Start 10/27/18 at 19:45; Stop 11/05/18 at 13:03; Status DC Budesonide (Pulmicort) 0.5 mg RTBID NEB Last administered on 11/08/18 07:00; Start 10/27/18 at 20:30 Albuterol/ Ipratropium (Duoneb) 3 ml RTQID NEB Last administered on 11/08/18 10 :58; Start 10/27/18 at 20:30 Enoxaparin Sodium (Lovenox 40mg Syringe) 40 mg Q24H SQ Last administered on 11/08 08:10; Start 10/28/18 at 09:00 Methylprednisolone Sodium Succinate (SOLU-Medrol 40MG VIAL) 40 mg DAILY IV Last administered on 11/04/18at 07:46; Start 10/28/18 at 09:00; Stop 11/04/18 at 12 :27; Status DC Info (Tpn Per Pharmacy) 1 each PRN DAILY PRN MC SEE COMMENTS Last administered on 11/04/18at 11:20; Start 10/28/18 at 11:45; Stop 11/05/18 at 12:57; Status DC Amino Acids/ Glycerin/ Electrolytes 1,000 ml @ 80 mls/hr [id number] IV Last administered on 10/28/18at 12:25; Start 10/28/18 at 11:45; Stop 10/28/18 at 21:59 ; Status DC Lidocaine/Sodium Bicarbonate (Buffered Lidocaine 1%) 3 ml STK-MED ONCE .ROUTE ; Start 10/28/18 at 12:27; Stop 10/28/18 at 12:28; Status DC Lidocaine/Sodium Bicarbonate (Buffered Lidocaine 1%) 4 ml 1X ONCE INJ Last administered on 10/28/18at 13:11; Start 10/28/18 at 12:45; Stop 10/28/18 at 12:46 ; Status DC Sodium Chloride 90 meq/Potassium Chloride 50 meq/ Potassium Phosphate 13.6 mmol/ Magnesium Sulfate 10 meq/ Calcium Gluconate 10 meq/ Multivitamins 10 ml/Chromium / Copper/Manganese/ Seleni/Zn 1 ml/ Total Parenteral Nutrition/Amino Acids/ Dextrose/ Fat Emulsion Intravenous 1,512 ml @ 63 mls/hr TPN CONT IV Last administered on 10/28/18at 22:08; Start 10/28/18 at 22:00; Stop 10/29/18 at 21:59 ; Status DC Morphine Sulfate (Morphine Sulfate) 4 mg PRN Q2HR PRN IV PAIN Last administered on 10/31/18at 00:14; Start 10/29/18 at 11:30; Stop 10/31/18 at 13:03 ; Status DC Sodium Chloride 90 meq/Potassium Chloride 50 meq/ Potassium Phosphate 13.6 mmol/ Magnesium Sulfate 10 meq/ Calcium Gluconate 10 meq/ Multivitamins 10 ml/Chromium / Copper/Manganese/ Seleni/Zn 1 ml/ Total Parenteral Nutrition/Amino Acids/ Dextrose/ Fat Emulsion Intravenous 1,512 ml @ 63 mls/hr TPN CONT IV Last administered on 10/29/18at 22:32; Start 10/29/18 at 22:00; Stop 10/30/18 at 21:59 ; Status DC Albuterol Sulfate (Ventolin Neb Soln) 2.5 mg PRN Q4HRS PRN NEB SHORTNESS OF BREATH; Start 10/30/18 at 10:00 Sodium Chloride 90 meq/Potassium Chloride 50 meq/ Potassium Phosphate 13.6 mmol/ Magnesium Sulfate 10 meq/ Calcium Gluconate 10 meq/ Multivitamins 10 ml/Chromium / Copper/Manganese/ Seleni/Zn 1 ml/ Total Parenteral Nutrition/Amino Acids/ Dextrose/ Fat Emulsion Intravenous 1,248 ml @ 52 mls/hr TPN CONT IV Last administered on 10/30/18at 22:48; Start 10/30/18 at 22:00; Stop 10/31/18 at 21:59 ; Status DC Levofloxacin/ Dextrose 100 ml @ 100 mls/hr Q24H IV Last administered on at 08:22; Start 10/31/18 at 09:00; Stop 11/05/18 at 12:57; Status DC Furosemide (Lasix) 20 mg 1X ONCE IVP Last administered on 10/31/18at 09:08; Start 10/31/18 at 09:00; Stop 10/31/18 at 09:01; Status DC Sodium Chloride 90 meq/Potassium Chloride 50 meq/ Potassium Phosphate 13.6 mmol/ Magnesium Sulfate 10 meq/ Calcium Gluconate 10 meq/ Multivitamins 10 ml/Chromium / Copper/Manganese/ Seleni/Zn 1 ml/ Total Parenteral Nutrition/Amino Acids/ Dextrose/ Fat Emulsion Intravenous 1,248 ml @ 52 mls/hr TPN CONT IV Last administered on 10/31/18at 23:35; Start 10/31/18 at 22:00; Stop 11/01/18 at 21:59 ; Status DC Fentanyl Citrate (Fentanyl 2ml Vial) 25 mcg PRN Q2HR PRN IV MODERATE PAIN Last administered on 11/07/18at 20:56; Start 10/31/18 at 13:15 Sodium Chloride 70 meq/Potassium Chloride 50 meq/ Potassium Phosphate 13.6 mmol/ Magnesium Sulfate 10 meq/ Calcium Gluconate 10 meq/ Multivitamins 10 ml/Chromium / Copper/Manganese/ Seleni/Zn 1 ml/ Total Parenteral Nutrition/Amino Acids/ Dextrose/ Fat Emulsion Intravenous 1,248 ml @ 52 mls/hr TPN CONT IV Last administered on 11/01/18at 22:21; Start 11/01/18 at 22:00; Stop 11/02/18 at 21:59; Status DC Barium Sulfate (Liquid E-Z Paque) 710 ml 1X ONCE PO Last administered on at 11:15; Start 11/02/18 at 11:15; Stop 11/02/18 at 11:16; Status DC Sodium Chloride 70 meq/Potassium Chloride 50 meq/ Potassium Phosphate 13.6 mmol/ Magnesium Sulfate 10 meq/ Calcium Gluconate 10 meq/ Multivitamins 10 ml/Chromium / Copper/Manganese/ Seleni/Zn 1 ml/ Total Parenteral Nutrition/Amino Acids/ Dextrose/ Fat Emulsion Intravenous 1,248 ml @ 52 mls/hr TPN CONT IV Last administered on 11/02/18at 21:39; Start 11/02/18 at 22:00; Stop 11/03/18 at 21:59; Status DC Sodium Chloride 70 meq/Potassium Chloride 50 meq/ Potassium Phosphate 13.6 mmol/ Magnesium Sulfate 10 meq/ Calcium Gluconate 10 meq/ Multivitamins 10 ml/Chromium / Copper/Manganese/ Seleni/Zn 1 ml/ Total Parenteral Nutrition/Amino Acids/ Dextrose/ Fat Emulsion Intravenous 1,248 ml @ 52 mls/hr TPN CONT IV Last administered on 11/03/18at 21:31; Start 11/03/18 at 22:00; Stop 11/04/18 at 21:59; Status DC Sodium Chloride 70 meq/Potassium Chloride 50 meq/ Potassium Phosphate 13.6 mmol/ Magnesium Sulfate 10 meq/ Calcium Gluconate 10 meq/ Multivitamins 10 ml/Chromium / Copper/Manganese/ Seleni/Zn 1 ml/ Total Parenteral Nutrition/Amino Acids/ Dextrose/ Fat Emulsion Intravenous 1,248 ml @ 52 mls/hr TPN CONT IV Last administered on 11/04/18at 21:26; Start 11/04/18 at 22:00; Stop 11/05/18 at 21:59; Status DC Acetaminophen/ Hydrocodone Bitart (Lortab 7.5/325) 1 tab PRN Q6HRS PRN PO PAIN MILD TO MOD Last administered on 11/04/18at 14:18; Start 11/04/18 at 12:30 Acetaminophen/ Hydrocodone Bitart (Lortab 7.5/325) 2 tab PRN Q6HRS PRN PO PAIN SEVERE Last administered on 11/08/18 12:08; Start 11/04/18 at 12:30 Prednisone (Prednisone) 40 mg DAILY PO ; Start 11/05/18 at 09:00; Stop 11/05/18 at 09:00; Status DC Levothyroxine Sodium (Synthroid) 88 mcg DAILY06 PO Last administered on 05:55; Start 11/04/18 at 13:00 Prednisone (Prednisone) 20 mg DAILY PO ; Start 11/05/18 at 09:00; Stop 11/05/18 at 09:00; Status DC Diltiazem HCl (Cardizem 24hr Cd) 120 mg DAILY PO Last administered on 11/08/18 08:09; Start 11/04/18 at 13:00 Magnesium Chloride (Mag Delay) 64 mg DAILY PO Last administered on 11/08/18 08: 10; Start 11/04/18 at 13:00 Pantoprazole Sodium (Protonix) 40 mg DAILYAC PO Last administered on 11/08/18 08:09; Start 11/04/18 at 13:00 Sertraline HCl (Zoloft) 50 mg QHS PO Last administered on 11/07/18 20:52; Start 11/04/18 at 21:00 Prednisone (Prednisone) 20 mg DAILY PO Last administered on 11/08/18 08:09; Start 11/05/18 at 09:00 Calcium Carbonate/ Glycine (Tums) 500 mg PRN Q4HRS PRN PO INDIGESTION Last administered on 11/04/18 22:44; Start 11/04/18 at 22:45 Ondansetron HCl (Zofran Odt) 4 mg PRN Q4HRS PRN PO NAUSEA/VOMITING; Start at 13:15 Lactobacillus Rhamnosus (Culturelle) 1 cap BID PO Last administered on 08:10; Start 11/05/18 at 21:00 Polyethylene Glycol (miraLAX PACKET) 17 gm DAILY PO Last administered on 08:09; Start 11/07/18 at 09:30 Alprazolam (Xanax) 0.5 mg PRN Q8HRS PRN PO ANXIETY / AGITATION; Start 11/08/18 at 13:30 Active Scripts Active Sertraline Hcl 25 Mg Tablet 50 Mg PO QHS 30 Days Magnesium Chloride 70 Mg Tablet. 64 Mg PO DAILY 30 Days Synthroid (Levothyroxine Sodium) 88 Mcg Tablet 88 Mcg PO DAILY06 30 Days Prednisone 20 Mg Tablet 20 Mg PO DAILY 30 Days Budesonide 0.5 Mg/2 Ml Ampul.neb 0.5 Mg NEB RTBID 30 Days Klor-Con 10 (Potassium Chloride) 10 Meq Tablet.er 1 Tab PO DAILY Lasix (Furosemide) 40 Mg Tablet 1 Tab PO DAILY Aspirin Ec (Aspirin) 81 Mg Tablet. 81 Mg PO DAILYWBKFT 30 Days Duoneb 0.5-3(2.5) Mg/3 Ml (Albuterol/Ipratropium) 3 Ml Ampul.neb 3 Ml NEB RTQID 30 Days Diltiazem 24HR Cd (Diltiazem Hcl) 120 Mg Cap.er.24h 120 Mg PO DAILY 30 Days Reported Hydrocodone-Apap 7.5-325 (Hydrocodone Bit/Acetaminophen) 1 Tab Tablet 1 Tab PO PRN Q6HRS PRN Omeprazole 40 Mg Capsule. 40 Mg PO DAILY Vitals/I & O Vital Sign - Last 24 Hours 11/07/18 11/07/18 11/07/18 11/07/18 13:57 15:00 15:18 16:37 Temp 98.1 98.1 Pulse 71 Resp 16 B/P (MAP) 113/69 (84) Pulse Ox 94 98 O2 Delivery Room Air Room Air Room Air Room Air 11/07/18 11/07/18 11/07/18 11/07/18 17:58 19:00 20:00 20:29 Temp 97.8 97.8 Pulse 71 Resp 16 B/P (MAP) 107/70 (82) Pulse Ox 97 O2 Delivery Room Air Room Air Room Air Room Air 11/07/18 11/07/18 11/07/18 11/07/18 20:29 20:56 21:26 23:00 Temp 97.9 97.9 Pulse 68 Resp 18 16 16 B/P (MAP) 107/64 (78) Pulse Ox 95 O2 Delivery Room Air Room Air Room Air 11/07/18 11/08/18 11/08/18 11/08/18 23:57 00:57 03:00 05:59 Temp 98.1 98.1 Pulse 80 Resp 16 16 16 18 B/P (MAP) 111/74 (86) Pulse Ox 95 O2 Delivery Room Air Room Air Room Air 11/08/18 11/08/18 11/08/18 11/08/18 07:00 07:00 07:05 08:09 Temp 98.2 98.2 Pulse 70 70 Resp 18 B/P (MAP) 101/63 (76) 101/63 Pulse Ox 96 93 O2 Delivery Room Air Room Air Room Air 11/08/18 11/08/18 11/08/18 10:59 12:08 13:23 Pulse Ox 92 O2 Delivery Room Air Room Air Room Air Intake and Output 11/07/18 11/07/18 11/08/18 15:00 23:00 07:00 Intake Total 120 ml Output Total 400 ml 300 ml Balance -400 ml 120 ml -300 ml Nutrition Consultation Dietary Evaluation: Recommendations by RD: Increase Calorie Intake, Protein supplementation Comments: encourage po intake of meals/ supplements Expected Outcomes/Goals: diet advance, tolerance- met new goal: to meet > 75% est nutr needs via po intake Interpretation of weight loss: >7.5% in 3 months Malnutrition Findings: Food and Nutrition Intake (Sev: <50% est energy req 5days Body Fat Depletion (Non Severe: Mild Depletion Weight Status: Emaciated LOURDES POLLOCK MD Nov 08, 2018 13:50
--- NOTE | 2018-11-08 15:05 | RAD ---
Abdominal series including chest radiograph and 2 additional views of the abdomen. INDICATION: Constipation. COMPARISON STUDY: Abdominal series October 29, 2018 Discussion: Probable small right pleural effusion with underlying atelectasis is seen. Calcified granuloma noted right lung base. Left basilar infiltrate persists. Previously seen markedly dilated loops of small bowel in the central abdomen are no longer clearly visualized. No gross pneumoperitoneum is identified. The previously seen enteric contrast now probably resides in the transverse, descending, and sigmoid colon. No significant bowel dilatation is appreciated radiographically. IMPRESSION: 1. Grossly nonobstructed bowel gas pattern with persistent barium from abdominal series November 02 within the distal colon 2. Persistent left basilar pulmonary infiltrate 3. Small right pleural effusion with underlying atelectasis Electronically signed by: Néstor Ambrosio MD (11/08/2018 3:02 PM) [facility]
--- NOTE | 2018-11-08 16:05 | NUR ---
Photo taken of R FA skin tear. 1cm x 3cm. Site left open to air, no drainage noted.
--- NOTE | 2018-11-08 16:24 | NUR ---
Pt. discharged to [facility] via pt's personal WC per transportation. Packet given to transport.
--- NOTE | 2018-12-07 10:24 | PDOC3 ---
Discharge Summary Visit Information Date of Admission: Oct 27, 2018 Date of Discharge: Nov 08, 2018 Admitting Diagnosis: SBO Final Diagnosis SBO Brief Hospital Course Allergies Allergies Coded Allergies Type Severity Reaction Last Updated Verified No Known Drug Allergies 09/14/18 No Brief Hospital Course Mr. Johnson is a 78 old male who presented with recurrent SBO. He was treated with conservative measures including, NG decompression, bowel rest, sesame seed oil. At discharge had some flatus and tolerating a diet. He was discharging back to [facility] to continue his postoperative recovery Discharge Information Condition at Discharge: Stable Follow Up: Weeks (1) Disposition/Orders: D/C to Another Facility Scheduled Aspirin (Aspirin Ec) 81 Mg Tablet.dr, 81 MG PO DAILYWBKFT for afib for 30 Days, #30 Prescribed by: LOURDES POLLOCK on 07/16/18933 Last Action: HELD on 11/04/181228 by LOURDES POLLOCK Budesonide (Budesonide) 0.5 Mg/2 Ml Ampul.neb, 0.5 MG NEB RTBID for copd for 30 Days, #60 Ref 3 Prescribed by: LOURDES POLLOCK on 08/30/181626 Last Action: Continued on 10/27/182011 by SHAKEEL SOMMER Diltiazem Hcl (Diltiazem 24HR Cd) 120 Mg Cap.er.24h, 120 MG PO DAILY for afib for 30 Days, #30 Ref 6 Prescribed by: EMY DALTON MD on 07/01/181651 Last Action: Converted on 11/04/181228 by LOURDES POLLOCK Furosemide (Lasix) 40 Mg Tablet, 1 TAB PO DAILY for chf, #30 Ref 5 Prescribed by: LOURDES POLLOCK on 07/16/18933 Last Action: HELD on 11/04/181228 by LOURDES POLLOCK Ipratropium/Albuterol Sulfate (Duoneb 0.5-3(2.5) Mg/3 Ml) 3 Ml Ampul.neb, 3 ML NEB RTQID for breathing for 30 Days, #120 Prescribed by: EMY DALTON MD on 07/01/181651 Last Action: Continued on 10/27/182011 by SHAKEEL SOMMER Levothyroxine Sodium (Synthroid) 88 Mcg Tablet, 88 MCG PO DAILY06 for low thyroid for 30 Days, #30 Ref 3 Prescribed by: LOURDES POLLOCK on 08/30/181626 Last Action: Continued on 11/04/181228 by LOURDES POLLOCK Magnesium Chloride (Magnesium Chloride) 70 Mg Tablet.dr, 64 MG PO DAILY for SVT for 30 Days, #30 Ref 3 Prescribed by: LOURDES POLLOCK on 08/30/181626 Last Action: Converted on 11/04/181228 by LOURDES POLLOCK Omeprazole (Omeprazole) 40 Mg Capsule.dr, 40 MG PO DAILY for GERD, (Reported) Entered as Reported by: ELLIOTT HAGEN on 08/26/18 1253 Last Action: Converted on 11/04/181228 by LOURDES POLLOCK Potassium Chloride (Klor-Con 10) 10 Meq Tablet.er, 1 TAB PO DAILY for chf, #30 Ref 5 Prescribed by: LOURDES POLLOCK on 07/16/18 0934 Last Action: HELD on 10/27/182011 by SHAKEEL SOMMER Prednisone (Prednisone) 20 Mg Tablet, 20 MG PO DAILY for IPF for 30 Days, #30 Ref 3 Prescribed by: LOURDES POLLOCK on 08/30/181626 Last Action: Continued on 11/04/181228 by LOURDES POLLOCK Sertraline Hcl (Sertraline Hcl) 25 Mg Tablet, 50 MG PO QHS for depression for 30 Days, #60 Prescribed by: LOURDES POLLOCK on 10/01/18 1011 Last Action: Converted on 11/04/181228 by LOURDES POLLOCK Scheduled PRN Hydrocodone Bit/Acetaminophen (Hydrocodone-Apap 7.5-325 ) 1 Tab Tablet, 1 TAB PO PRN Q6HRS PRN for PAIN, Ref 0 (Reported) Entered as Reported by: ELLIOTT HAGEN on 08/26/18 1256 Last Action: HELD on 11/04/181228 by REMBERTO BOGGS APRN December 07, 2018 10:24
[2018-12-07] MEDS ORDERED: Tpn Per Pharmacy MC (12:47)
[2018-12-07] MEDS ORDERED: AMOX1TAB61 PO (12:47)
[2018-12-07] MEDS ORDERED: HYDR-2765 PO (12:48)
[2018-12-07] MEDS ORDERED: METO25TA4 PO (17:34)
== END 2018-11-08 16:27 | disposition home or self-care (01) | DRG 388 ==
LOC: 4 NORTH 17:30
PROVIDERS: ADMIT Surgery; ATTEND Surgery
PROC: 02HV33Z Insertion of Infusion Device into Superior Vena Cava, Percutaneous Approach (ICD-10-PCS; principal; 2018-10-28)
PROC: B5181ZA Fluoroscopy of Superior Vena Cava using Low Osmolar Contrast, Guidance (ICD-10-PCS; 2018-10-28)
PROC: B548ZZA Ultrasonography of Superior Vena Cava, Guidance (ICD-10-PCS; 2018-10-28)
PROC: 0D9670Z Drainage of Stomach with Drainage Device, Via Natural or Artificial Opening (ICD-10-PCS; 2018-10-28)
DX: K56.609 Unspecified intestinal obstruction, unspecified as to partial versus complete obstruction (principal); E43 Unspecified severe protein-calorie malnutrition; E41 Nutritional marasmus; I50.32 Chronic diastolic (congestive) heart failure; E03.9 Hypothyroidism, unspecified; I11.0 Hypertensive heart disease with heart failure; J44.9 Chronic obstructive pulmonary disease, unspecified; M19.90 Unspecified osteoarthritis, unspecified site; J84.10 Pulmonary fibrosis, unspecified; F32.9 Major depressive disorder, single episode, unspecified; F41.9 Anxiety disorder, unspecified; I95.9 Hypotension, unspecified; D64.9 Anemia, unspecified; N40.1 Benign prostatic hyperplasia with lower urinary tract symptoms; R33.8 Other retention of urine; E78.5 Hyperlipidemia, unspecified; I48.91 Unspecified atrial fibrillation; K21.9 Gastro-esophageal reflux disease without esophagitis; K66.8 Other specified disorders of peritoneum; Z85.46 Personal history of malignant neoplasm of prostate; Z87.891 Personal history of nicotine dependence; Z68.21 Body mass index [BMI] 21.0-21.9, adult; Z90.49 Acquired absence of other specified parts of digestive tract; Z79.899 Other long term (current) drug therapy
CPT/HCPCS: 36415; 36569; 71045; 74018; 74021; 74022; 74177; 74250; 76937; 77001; 80048; 80053; 81001; 82962; 83036; 83605; 83735; 84100; 84443; 84478; 85007; 85025; 85027; 86701; 94640; 94760; C1751; C1892; G0238; J0610; J1650; J1940; J1956; J2270; J2920; J3010; J3475; J3480; J7512; J7620; J7626; Q9967; 97110; 97116; 97530; 97535

== ENCOUNTER 2018-11-24 02:57 | Inpatient (IN) | payer MEDICARE ==
[~2018-11-24] VITALS: Ht 177.8 cm; Wt 54.1 kg
[2018-11-24] MEDS ORDERED: fentaNYL PF VIAL 100 MCG/2 ML VIAL IV ONE (03:15)
[2018-11-24] MEDS ORDERED: IV NORMAL SALINE 1000ML BAG 1,000 ML IV ONE ×3 (03:15→06:00)
[2018-11-24] MEDS ORDERED: ONDANSETRON PF 4 MG/2 ML VIAL. IV ONE (03:15)
[2018-11-24 03:21] LABS: BASO # 0.1 x10^3/uL (0.0-0.2); BASO % 0 % (0-3); EOS % 0 % (0-3); HEMOGLOBIN 11.6 g/dL (13.0-17.5); LYMPH # 1.7 x10^3/uL (1.0-4.8); LYMPH % 11 % (24-48); MEAN CORPUSCULAR HEMOGLOBIN 31 pg (25-35); MEAN CORPUSCULAR HGB CONC 32 g/dL (31-37); MEAN CORPUSCULAR VOLUME 97 fL (79-100); MONO # 1.4 x10^3/uL (0.0-1.1); MONO % 9 % (0-9); NEUT # 12.4 x10^3uL (1.8-7.7); NEUT % 80 % (31-73); PLATELET COUNT 308 x10^3/uL (140-400); RED BLOOD COUNT 3.73 x10^6/uL (4.30-5.70); RED CELL DISTRIBUTION WIDTH 15.8 % (11.5-14.5); WHITE BLOOD COUNT 15.6 x10^3/uL (4.0-11.0)
[2018-11-24 03:29] LABS: PROTHROMBIN TIME PATIENT 15.7 SEC (11.7-14.0)
[2018-11-24 03:35] LABS: CALCIUM 9.2 mg/dL (8.5-10.1); CREATININE 0.8 mg/dL (0.7-1.3); POTASSIUM 4.4 mmol/L (3.5-5.1)
--- NOTE | 2018-11-24 03:37 | PHYS DOC ---
Past Medical History Past Medical History: A-Fib, Cancer, CHF, COPD, Depression Additional Past Medical Histor: prostate CA, pulmonary fibrosis, Hep C. PT IS POOR HISTORIAN Past Surgical History: Cancer Surgery Additional Past Surgical Histo: prosectomy, right ankle, Bowel Obstruction Alcohol Use: None Drug Use: None Adult General Chief Complaint Chief Complaint: NAUSEA/VOMITING/DIARRHA HPI HPI Patient is a 78 year old male presenting from [facility] by ambulance with vomiting 2 episodes dark color abdominal pain diffuse cramping severe since around 3 PM he said he had a bowel movement yesterday he said he has passed flatus. He did have lysis of adhesions in August symptoms are severe on arrival to the emergency room the patient was somewhat hypoxic tachypnea But alert and responsive Review of Systems Review of Systems Constitutional: Denies fever or chills [] Eyes: Denies change in visual acuity, redness, or eye pain [] HENT: Denies nasal congestion or sore throat [] Respiratory: Stable shortness of breath Cardiovascular: No additional information not addressed in HPI [] GI: Integument: Denies rash or skin lesions [] Neurologic: Denies headache, focal weakness or sensory changes [] Endocrine: Denies polyuria or polydipsia [] All other systems were reviewed and found to be within normal limits, except as documented in this note. Current Medications Current Medications Current Medications Medications (Trade) Dose Ordered Sig/Anjana Start Time Stop Time Status Last Admin Dose Admin Benzocaine (Hurricaine One) 1 spray 1X ONCE 11/24/18 05:15 11/24/18 05:16 DC Fentanyl Citrate (Fentanyl 2ml Vial) 50 mcg 1X ONCE 11/24/18 03:15 11/24/18 03:18 DC 11/24/18 03:45 50 MCG Info (CONTRAST GIVEN -- Rx MONITORING) 1 each PRN DAILY PRN 11/24/18 03:45 11/26/18 03:44 Iohexol (Omnipaque 300 Mg/ml) 75 ml 1X ONCE 11/24/18 03:45 11/24/18 03:46 DC 11/24/18 04:30 75 ML Ondansetron HCl (Zofran) 4 mg 1X ONCE 11/24/18 03:15 11/24/18 03:18 DC 11/24/18 03:45 4 MG Sodium Chloride 1,000 ml @ 1,000 mls/hr 1X ONCE 11/24/18 03:15 11/24/18 04:14 DC 11/24/18 03:45 1,000 MLS/HR Allergies Allergies Allergies Coded Allergies Type Severity Reaction Last Updated Verified No Known Drug Allergies 09/14/18 No Physical Exam Physical Exam Constitutional: Well developed, well nourished, moderately ill-appearing HENT: Normocephalic, atraumatic, bilateral external ears normal, oropharynx moist, no oral exudates, nose normal. [] Eyes: PERRLA, EOMI, conjunctiva normal, no discharge. [] Neck: Normal range of motion, no tenderness, supple, no stridor. [] Cardiovascular: Mild tachycardia Lungs & Thorax: Decreased bibasilar breath sounds Abdomen: Bowel sounds decreased, there is a ex-lap scar well healed overall the abdomen is very distended it feels firm there is some tenderness although no obvious peritoneal signs. The distention is actually out of proportion to the patient's somewhat mild tenderness. Skin: Warm, dry, no erythema, no rash. [] Extremities: No tenderness, no cyanosis, no clubbing, ROM intact, edema lower extremities noted Neurologic: Alert and oriented X 3, normal motor function, normal sensory function, no focal deficits noted. [] Psychologic: Affect normal, judgement normal, mood normal. [] Current Patient Data Vital Signs Vital Signs Date Time Temp Pulse Resp B/P (MAP) Pulse Ox O2 Delivery O2 Flow Rate FiO2 11/24/18 03:00 98.2 100 22 181/100 (127) 88 Room Air 98.2 Lab Values Laboratory Tests Test 11/24/18 03:09 White Blood Count 15.6 x10^3/uL (4.0-11.0) H Red Blood Count 3.73 x10^6/uL (4.30-5.70) L Hemoglobin 11.6 g/dL (13.0-17.5) L Hematocrit 36.0 % (39.0-53.0) L Mean Corpuscular Volume 97 fL (79-100) Mean Corpuscular Hemoglobin 31 pg (25-35) Mean Corpuscular Hemoglobin Concent 32 g/dL (31-37) Red Cell Distribution Width 15.8 % (11.5-14.5) H Platelet Count 308 x10^3/uL (140-400) Neutrophils (%) (Auto) 80 % (31-73) H Lymphocytes (%) (Auto) 11 % (24-48) L Monocytes (%) (Auto) 9 % (0-9) Eosinophils (%) (Auto) 0 % (0-3) Basophils (%) (Auto) 0 % (0-3) Neutrophils # (Auto) 12.4 x10^3uL (1.8-7.7) H Lymphocytes # (Auto) 1.7 x10^3/uL (1.0-4.8) Monocytes # (Auto) 1.4 x10^3/uL (0.0-1.1) H Eosinophils # (Auto) 0.0 x10^3/uL (0.0-0.7) Basophils # (Auto) 0.1 x10^3/uL (0.0-0.2) Prothrombin Time 15.7 SEC (11.7-14.0) H Prothrombin Time INR 1.3 (0.8-1.1) H Sodium Level 137 mmol/L (136-145) Potassium Level 4.4 mmol/L (3.5-5.1) Chloride Level 99 mmol/L (98-107) Carbon Dioxide Level 31 mmol/L (21-32) Anion Gap 7 (6-14) Blood Urea Nitrogen 19 mg/dL (8-26) Creatinine 0.8 mg/dL (0.7-1.3) Estimated GFR (Cockcroft-Gault) 94.0 BUN/Creatinine Ratio 24 (6-20) H Glucose Level 159 mg/dL (70-99) H Lactic Acid Level 1.6 mmol/L (0.4-2.0) Calcium Level 9.2 mg/dL (8.5-10.1) Total Bilirubin 0.9 mg/dL (0.2-1.0) Aspartate Amino Transferase (AST) 14 U/L (15-37) L Alanine Aminotransferase (ALT) 17 U/L (16-63) Alkaline Phosphatase 78 U/L (46-116) Troponin I Quantitative < 0.017 ng/mL (0.000-0.055) Total Protein 6.8 g/dL (6.4-8.2) Albumin 3.1 g/dL (3.4-5.0) L Albumin/Globulin Ratio 0.8 (1.0-1.7) L Laboratory Tests 11/24/18 03:09 Laboratory Tests 11/24/18 03:09 EKG EKG []EKG shows probably sinus tachycardia there are some peaked T waves anteriorly but overall this does look similar to September 12, 2018 PVC noted no STEMI QTC 466 Radiology/Procedures Radiology/Procedures [] Impressions: IMPRESSION: 1. Severe dilation of proximal small bowel loops as well as the stomach and esophagus which can be seen with a small bowel obstruction. 2. There is some wall thickening of the esophagus with fluid dilating the esophagus. This could be related to the bowel obstruction with esophagitis. 3. Chronic interstitial changes to the bilateral lungs. There is some patchy opacity seen at the bilateral lungs and a portion of this could be related to the patient's chronic lung disease but superimposed infection or aspiration can have this appearance as well. There is also groundglass nodular opacity right midlung. Would consider obtaining a follow-up CT in a few months to ensure no increase in these findings to ensure that there is not a neoplastic cause. 4. Calcific atherosclerosis including of the coronary arteries. 5. Repeat demonstration of low-density lesion of the right lobe the liver as well as low-density lesion of the right kidney. 6. Linear lucency through left inferior pubic ramus. Could be secondary to artifact or vascular channel but would correlate with point tenderness to ensure that this is not from a fracture. 7. Repeat demonstration of mild compression fracture of T12 and L1. Moderate compression fracture of T10, T9 and T7. T7 was outside of the [id number] on prior exam but the other fractures were present on prior as well. Electronically signed by: Fito Viera MD (11/24/2018 5:38 AM) [facility] Course & Med Decision Making Course & Med Decision Making Pertinent Labs and Imaging studies reviewed. (See chart for details) []78-year-old male [facility] resident brought in by ambulance with nausea and vomiting 2 episodes, dark in color associated with diffuse abdominal pain and distention for the last 24 hours patient is a history of pulmonary fibrosis A. fib not on anticoagulation prior lysis of adhesions and Upper SBO back in August history of appendectomy In ER patient was vomiting initially we gave symptomatic treatment him we did a very urgent workup due to patient appearing to have significant abdominal distention apparently was hypoxic on room air he says normally he does not need oxygen although he has needed in the past. At this point time we are getting labs hydrating him up chest x-ray urgent CT abdomen and pelvis and go from there blood cultures and lactate due to positive sirs on initial evaluation Reevaluation 5:[address] finding NG tube was placed 500 mL and counting of dark material are returning. Patient was given 2 L of fluid resuscitation the emergency room I spoke with both Dr. Bone who will consult on this patient as well as Dr. Ho plan to admit to Dr. Garcia. patient is aware of the plan at this time. Also noted the other CT findings given his profuse vomiting is possible he may have aspirated given the lung findings so Zosyn was also added. Otherwise no history of trauma defer remainder CT incidental findings to primary service Felicitas Disclaimer Felicitas Disclaimer This electronic medical record was generated, in whole or in part, using a voice recognition dictation system. Departure Departure Impression: Primary Impression: Small bowel obstruction Additional Impression: Pneumonia Disposition: 09 ADMITTED INPATIENT Admitting Physician: Yousuf Garcia Condition: STABLE Referrals: YOUSUF GARCIA MD (PCP) Problem Qualifiers LARRY VELEZ MD Nov 24, 2018 03:37
[2018-11-24] MEDS ORDERED: IOHEXOL 300 MG/ML 100ML VIAL. IV ONE (03:45)
[2018-11-24] MEDS ORDERED: CONTRAST GIVEN. MC PRN (03:45)
[2018-11-24 03:49] LABS: ALBUMIN 3.1 g/dL (3.4-5.0); ALBUMIN/GLOBULIN RATIO 0.8 (1.0-1.7); TOTAL BILIRUBIN 0.9 mg/dL (0.2-1.0); TOTAL PROTEIN 6.8 g/dL (6.4-8.2)
[2018-11-24] MEDS ORDERED: BENZOCAINE ONE 20% MUCOSAL SPRAY. MM (05:15)
--- NOTE | 2018-11-24 05:41 | RAD ---
INDICATION: S/P sbo, Omni 300 75 mL COMPARISON: October 27, 2018. TECHNIQUE: Axial CT images obtained through the abdomen and pelvis with contrast. One or more of the following individualized dose reduction techniques were utilized for this examination: 1. Automated exposure control; 2. Adjustment of the mA and/or kV according to patient size; 3. Use of iterative reconstruction technique. FINDINGS: Dilation of the esophagus with debris within. Linear high density structure is partially seen within the lumen. Disorganized pulmonary markings are seen at the lower lungs with focal opacities at lung bases again seen. Patchy nodular opacity right midlung measuring up to 15 mm. Calcific atherosclerosis. Coronary artery calcific atherosclerosis. Low-density lesion right lobe of the liver, 10 mm. Mild periportal edema. No peripancreatic fluid collection. Spleen unremarkable. No left-sided hydronephrosis. Urinary bladder is partially distended. No right-sided hydronephrosis. Low-density exophytic lesion right kidney measuring up to about 13 mm. Severe dilation of esophagus, stomach as well as proximal small bowel loops with more distal decompression. For example some of the small bowel loops measure up to about 8 cm in diameter. Suspected transition point right lower quadrant. Degenerative changes throughout the spine. Wall thickening of the esophagus. Edema to the soft tissues. Osseous demineralization. Linear lucency in the left inferior pubic ramus. Sclerosis at left lower rib could be from prior rib fracture. IMPRESSION: 1. Severe dilation of proximal small bowel loops as well as the stomach and esophagus which can be seen with a small bowel obstruction. 2. There is some wall thickening of the esophagus with fluid dilating the esophagus. This could be related to the bowel obstruction with esophagitis. 3. Chronic interstitial changes to the bilateral lungs. There is some patchy opacity seen at the bilateral lungs and a portion of this could be related to the patient's chronic lung disease but superimposed infection or aspiration can have this appearance as well. There is also groundglass nodular opacity right midlung. Would consider obtaining a follow-up CT in a few months to ensure no increase in these findings to ensure that there is not a neoplastic cause. 4. Calcific atherosclerosis including of the coronary arteries. 5. Repeat demonstration of low-density lesion of the right lobe the liver as well as low-density lesion of the right kidney. 6. Linear lucency through left inferior pubic ramus. Could be secondary to artifact or vascular channel but would correlate with point tenderness to ensure that this is not from a fracture. 7. Repeat demonstration of mild compression fracture of T12 and L1. Moderate compression fracture of T10, T9 and T7. T7 was outside of the [id number] on prior exam but the other fractures were present on prior as well. Electronically signed by: Fito Viera MD (11/24/2018 5:38 AM) [id number]
[2018-11-24] MEDS ORDERED: MORPHINE SULFATE 4 MG/ML VIAL. IV ONE (06:00)
[2018-11-24] MEDS ORDERED: ONDANSETRON PF 4 MG/2 ML VIAL. IV PRN (06:00)
[2018-11-24] MEDS ORDERED: PIP/TAZO PER PHARMACY MC PRN (06:00)
[2018-11-24] MEDS ORDERED: PIPERACILLIN/TAZOBACTAM 3.375 GM in IV NORMAL SALINE 50ML 50 ML IV ONE (06:15)
--- NOTE | 2018-11-24 07:14 | EKG ---
[facility] [address] [place] [address] Test Date: 2018-11-24 Test Time: 03:13:27 Pat Name: JOHN ROBBINS Department: Room: [facility] Gender: M Film Reader: : 1940 Requested By: LARRY VELEZ Order Number: [id number] Reading MD: Donta Jensen Measurements Intervals [place] Rate: 103 P: 21 CT: 150 QRS: -21 QRSD: 94 T: 34 QT: 354 QTc: 466 Interpretive Statements SINUS TACHYCARDIA VENTRICULAR PREMATURE COMPLEX(ES) ATRIAL PREMATURE COMPLEX(ES) LEFT ATRIAL ABNORMALITY Electronically Signed On 12-01-2018 11:32:41 CDT by Donta Jensen
[2018-11-24 07:46] VITALS: BP 136/77
--- NOTE | 2018-11-24 08:23 | PDOC2 ---
REMBERTO WINSTON CAREER RESOURCE SPECIALIST 11/24/18 0823: CONSULT Date of Consult Date of Consult DATE: 11/24/18 TIME: 08:17 Reason for Consult Reason for Consult: SBO Referring Physician Referring Physician: ER Identification/Chief Complaint Chief Complaint emesis Source Source: Chart review, Patient History of Present Illness Reason for Visit: Patient is known to Dr Sommer, previous surgery in Aug for SBO, readmitted last month with SBO(treated conservatively). Now returns from with vomiting and distention. Reports BM 2 days ago. Does report some flatus Improved with NG decompression Past Medical History Cardiovascular: AFIB, HTN, Hyperlipidemia, Other Pulmonary: COPD CENTRAL NERVOUS SYSTEM: Other GI: GERD, Other Heme/Onc: Cancer Hepatobiliary: Hep A/B/C Psych: Anxiety Rheumatologic: No pertinent hx Infectious disease: No pertinent hx Renal/: No pertinent hx, Prostate Ca. Endocrine: No pertinent hx, Hypothyroidism Past Surgical History Past Surgical History: Appendectomy, Tonsillectomy, Other Family History Family History: Other Social History ALCOHOL: occassional Drugs: None Lives: Alone Current Problem List Problem List Problems Medical Problems: (1) Pneumonia Status: Acute Current Medications Current Medications Current Medications Fentanyl Citrate (Fentanyl 2ml Vial) 50 mcg 1X ONCE IV Last administered on 11/24/18at 03:45; Start 11/24/18 at 03:15; Stop 11/24/18 at 03:18; Status DC Sodium Chloride 1,000 ml @ 1,000 mls/hr 1X ONCE IV Last administered on 11/24/18at 03:45; Start 11/24/18 at 03:15; Stop 11/24/18 at 04:14; Status DC Ondansetron HCl (Zofran) 4 mg 1X ONCE IV Last administered on 11/24/18at 03:45; Start 11/24/18 at 03:15; Stop 11/24/18 at 03:18; Status DC Iohexol (Omnipaque 300 Mg/ml) 75 ml 1X ONCE IV Last administered on 11/24/18at 04:30; Start 11/24/18 at 03:45; Stop 11/24/18 at 03:46; Status DC Info (CONTRAST GIVEN -- Rx MONITORING) 1 each PRN DAILY PRN MC SEE COMMENTS; Start 11/24/18 at 03:45; Stop 11/26/18 at 03:44 Benzocaine (Hurricaine One) 1 spray 1X ONCE MM ; Start 11/24/18 at 05:15; Stop 11/24/18 at 05:16; Status DC Morphine Sulfate (Morphine Sulfate) 4 mg 1X ONCE IV Last administered on 11/24/18at 06:03; Start 11/24/18 at 06:00; Stop 11/24/18 at 06:01; Status DC Sodium Chloride 1,000 ml @ 1,000 mls/hr 1X ONCE IV Last administered on 11/24/18at 06:03; Start 11/24/18 at 06:00; Stop 11/24/18 at 06:59; Status DC Morphine Sulfate (Morphine Sulfate) 4 mg PRN Q2HR PRN IV PAIN; Start 11/24/18 at 06:00 Sodium Chloride 1,000 ml @ 125 mls/hr 1X ONCE IV Last administered on 11/24/18at 08:10; Start 11/24/18 at 06:00; Stop 11/24/18 at 13:59 Ondansetron HCl (Zofran) 4 mg PRN Q6HRS PRN IV NAUSEA/VOMITING; Start 11/24/18 at 06:00 Piperacillin Sod/ Tazobactam Sod (Zosyn Per Pharmacy) 1 each PRN DAILY PRN MC SEE COMMENTS; Start 11/24/18 at 06:00 Piperacillin Sod/ Tazobactam Sod 3.375 gm/Sodium Chloride 50 ml @ 100 mls/hr 1X ONCE IV Last administered on 11/24/18at 06:53; Start 11/24/18 at 06:15; Stop 11/24/18 at 06:44; Status DC Piperacillin Sod/ Tazobactam Sod 3.375 gm/Sodium Chloride 50 ml @ 100 mls/hr Q6HRS IV ; Start 11/24/18 at 12:00 Active Scripts Active Sertraline Hcl 25 Mg Tablet 50 Mg PO QHS 30 Days Magnesium Chloride 70 Mg Tablet.dr 64 Mg PO DAILY 30 Days Synthroid (Levothyroxine Sodium) 88 Mcg Tablet 88 Mcg PO DAILY06 30 Days Prednisone 20 Mg Tablet 20 Mg PO DAILY 30 Days Budesonide 0.5 Mg/2 Ml Ampul.neb 0.5 Mg NEB RTBID 30 Days Klor-Con 10 (Potassium Chloride) 10 Meq Tablet.er 1 Tab PO DAILY Lasix (Furosemide) 40 Mg Tablet 1 Tab PO DAILY Aspirin Ec (Aspirin) 81 Mg Tablet.dr 81 Mg PO DAILYWBKFT 30 Days Duoneb 0.5-3(2.5) Mg/3 Ml (Albuterol/Ipratropium) 3 Ml Ampul.neb 3 Ml NEB RTQID 30 Days Diltiazem 24HR Cd (Diltiazem Hcl) 120 Mg Cap.er.24h 120 Mg PO DAILY 30 Days Reported Hydrocodone-Apap 7.5-325 (Hydrocodone Bit/Acetaminophen) 1 Tab Tablet 1 Tab PO PRN Q6HRS PRN Omeprazole 40 Mg Capsule.dr 40 Mg PO DAILY Allergies Allergies: Coded Allergies: No Known Drug Allergies (Unverified , 09/14/18) ROS General: No: Chills, Other (fevers) PSYCHOLOGICAL ROS: No: Anxiety, Depression Eyes: No Blurry vision, No Double vision HEENT: No: Heacaches, Sore Throat Hematological and Lymphatic: No: Bleeding Problems, Blood Clots Respiratory: No: Cough, Shortness of breath Cardiovascular: No Chest Pain, No Palpitations Gastrointestinal: Yes Other (see hpi) Genitourinary: No Dysuria, No Hematuria Musculoskeletal: No Joint Pain Neurological: No Confusion, No Impaired Coord/balance Skin: No Pruritus, No Rash Physical Exam General: Alert, Oriented X3, Cooperative, No acute distress HEENT: Other (NG biliuos/brownish drainage) Lungs: Clear to auscultation, Normal air movement Heart: Regular rate, Normal S1, Normal S2 Abdomen: Soft, Other (distended, mild ttp lower abdomen ) Extremities: No clubbing, No cyanosis Skin: No rashes, No breakdown Neuro: Normal speech, Sensation intact Psych/Mental Status: Mental status NL, Mood NL MUSCULOSKELETAL: No deformity, No swelling Vitals VITALS Vital Signs Date Time Temp Pulse Resp B/P (MAP) Pulse Ox O2 Delivery O2 Flow Rate FiO2 11/24/18 08:00 Nasal Cannula 1.0 11/24/18 07:46 98.1 98 18 136/77 (96) 92 98.1 Labs Labs Laboratory Tests Test 11/24/18 03:09 White Blood Count 15.6 x10^3/uL (4.0-11.0) Red Blood Count 3.73 x10^6/uL (4.30-5.70) Hemoglobin 11.6 g/dL (13.0-17.5) Hematocrit 36.0 % (39.0-53.0) Mean Corpuscular Volume 97 fL (79-100) Mean Corpuscular Hemoglobin 31 pg (25-35) Mean Corpuscular Hemoglobin Concent 32 g/dL (31-37) Red Cell Distribution Width 15.8 % (11.5-14.5) Platelet Count 308 x10^3/uL (140-400) Neutrophils (%) (Auto) 80 % (31-73) Lymphocytes (%) (Auto) 11 % (24-48) Monocytes (%) (Auto) 9 % (0-9) Eosinophils (%) (Auto) 0 % (0-3) Basophils (%) (Auto) 0 % (0-3) Neutrophils # (Auto) 12.4 x10^3uL (1.8-7.7) Lymphocytes # (Auto) 1.7 x10^3/uL (1.0-4.8) Monocytes # (Auto) 1.4 x10^3/uL (0.0-1.1) Eosinophils # (Auto) 0.0 x10^3/uL (0.0-0.7) Basophils # (Auto) 0.1 x10^3/uL (0.0-0.2) Prothrombin Time 15.7 SEC (11.7-14.0) Prothromb Time International Ratio 1.3 (0.8-1.1) Sodium Level 137 mmol/L (136-145) Potassium Level 4.4 mmol/L (3.5-5.1) Chloride Level 99 mmol/L (98-107) Carbon Dioxide Level 31 mmol/L (21-32) Anion Gap 7 (6-14) Blood Urea Nitrogen 19 mg/dL (8-26) Creatinine 0.8 mg/dL (0.7-1.3) Estimated GFR (Cockcroft-Gault) 94.0 BUN/Creatinine Ratio 24 (6-20) Glucose Level 159 mg/dL (70-99) Lactic Acid Level 1.6 mmol/L (0.4-2.0) Calcium Level 9.2 mg/dL (8.5-10.1) Total Bilirubin 0.9 mg/dL (0.2-1.0) Aspartate Amino Transf (AST/SGOT) 14 U/L (15-37) Alanine Aminotransferase (ALT/SGPT) 17 U/L (16-63) Alkaline Phosphatase 78 U/L (46-116) Troponin I Quantitative < 0.017 ng/mL (0.000-0.055) Total Protein 6.8 g/dL (6.4-8.2) Albumin 3.1 g/dL (3.4-5.0) Albumin/Globulin Ratio 0.8 (1.0-1.7) Laboratory Tests Test 11/24/18 03:09 White Blood Count 15.6 x10^3/uL (4.0-11.0) Red Blood Count 3.73 x10^6/uL (4.30-5.70) Hemoglobin 11.6 g/dL (13.0-17.5) Hematocrit 36.0 % (39.0-53.0) Mean Corpuscular Volume 97 fL (79-100) Mean Corpuscular Hemoglobin 31 pg (25-35) Mean Corpuscular Hemoglobin Concent 32 g/dL (31-37) Red Cell Distribution Width 15.8 % (11.5-14.5) Platelet Count 308 x10^3/uL (140-400) Neutrophils (%) (Auto) 80 % (31-73) Lymphocytes (%) (Auto) 11 % (24-48) Monocytes (%) (Auto) 9 % (0-9) Eosinophils (%) (Auto) 0 % (0-3) Basophils (%) (Auto) 0 % (0-3) Neutrophils # (Auto) 12.4 x10^3uL (1.8-7.7) Lymphocytes # (Auto) 1.7 x10^3/uL (1.0-4.8) Monocytes # (Auto) 1.4 x10^3/uL (0.0-1.1) Eosinophils # (Auto) 0.0 x10^3/uL (0.0-0.7) Basophils # (Auto) 0.1 x10^3/uL (0.0-0.2) Prothrombin Time 15.7 SEC (11.7-14.0) Prothromb Time International Ratio 1.3 (0.8-1.1) Sodium Level 137 mmol/L (136-145) Potassium Level 4.4 mmol/L (3.5-5.1) Chloride Level 99 mmol/L (98-107) Carbon Dioxide Level 31 mmol/L (21-32) Anion Gap 7 (6-14) Blood Urea Nitrogen 19 mg/dL (8-26) Creatinine 0.8 mg/dL (0.7-1.3) Estimated GFR (Cockcroft-Gault) 94.0 BUN/Creatinine Ratio 24 (6-20) Glucose Level 159 mg/dL (70-99) Lactic Acid Level 1.6 mmol/L (0.4-2.0) Calcium Level 9.2 mg/dL (8.5-10.1) Total Bilirubin 0.9 mg/dL (0.2-1.0) Aspartate Amino Transf (AST/SGOT) 14 U/L (15-37) Alanine Aminotransferase (ALT/SGPT) 17 U/L (16-63) Alkaline Phosphatase 78 U/L (46-116) Troponin I Quantitative < 0.017 ng/mL (0.000-0.055) Total Protein 6.8 g/dL (6.4-8.2) Albumin 3.1 g/dL (3.4-5.0) Albumin/Globulin Ratio 0.8 (1.0-1.7) Images Images IMPRESSION: 1. Severe dilation of proximal small bowel loops as well as the stomach and esophagus which can be seen with a small bowel obstruction. 2. There is some wall thickening of the esophagus with fluid dilating the esophagus. This could be related to the bowel obstruction with esophagitis. 3. Chronic interstitial changes to the bilateral lungs. There is some patchy opacity seen at the bilateral lungs and a portion of this could be related to the patient's chronic lung disease but superimposed infection or aspiration can have this appearance as well. There is also groundglass nodular opacity right midlung. Would consider obtaining a follow-up CT in a few months to ensure no increase in these findings to ensure that there is not a neoplastic cause. 4. Calcific atherosclerosis including of the coronary arteries. 5. Repeat demonstration of low-density lesion of the right lobe the liver as well as low-density lesion of the right kidney. 6. Linear lucency through left inferior pubic ramus. Could be secondary to artifact or vascular channel but would correlate with point tenderness to ensure that this is not from a fracture. 7. Repeat demonstration of mild compression fracture of T12 and L1. Moderate compression fracture of T10, T9 and T7. T7 was outside of the [id number] on prior exam but the other fractures were present on prior as well. Assessment/Plan Assessment/Plan SBO bowel rest, hydration, NG decompression noted CT findings of esophageal thickening and dilation will review with SHAKEEL Martinez MD 11/24/18 1402: CONSULT Assessment/Plan Assessment/Plan pt seen, interviewed and examined by me will need exploration prefer some time with NG decompression to help with size of proximal bowel in comparison to the small bowel beyond the process suggest a PICC for TPN will follow Thanks for consult REMBERTO WINSTON CAREER RESOURCE SPECIALIST Nov 24, 2018 08:23 SHAKEEL SOMMER MD Nov 24, 2018 14:02
--- NOTE | 2018-11-24 08:49 | RAD ---
PORTABLE CHEST 1V Clinical indications: Shortness of breath. COMPARISON: November 08, 2018. Findings: There is an increase in bilateral interstitial lung infiltrates or pulmonary edema. Small right-sided pleural effusion is unchanged. No pneumothorax is seen. The heart size and mediastinum and pulmonary vasculature are stable. IMPRESSION: Increase in bilateral interstitial infiltrates or pulmonary edema. Stable small right-sided pleural effusion. There is significant distention of the bowel. Electronically signed by: Raj Villalpando MD (11/24/2018 8:46 AM) [place] [id number]
--- NOTE | 2018-11-24 08:52 | RAD ---
KUB without comparison for post NG tube insertion. FINDINGS: An enteric tube is present with distal tip projecting in the expected vicinity of the gastric lumen. There are large dilated loops of small bowel centrally concerning for small bowel obstruction. Overall appearance is significantly worse when compared to KUB dated November 08, 2018. Extensive coarse interstitial changes are seen throughout the lungs, with an area of consolidation in the retrocardiac region concerning for pneumonia. IMPRESSION: 1. NG tube appropriately positioned. 2. Marked gaseous dilatation of small bowel throughout the abdomen concerning for small bowel obstruction, high-grade. 3. Probable retrocardiac pneumonia, on a background of coarse interstitial changes which may reflect fibrosis. These findings could be better evaluated with dedicated chest x-ray. Electronically signed by: Jarrod Thibodeaux MD (11/24/2018 8:48 AM) [id number]
--- NOTE | 2018-11-24 09:36 | PDOC1 ---
History and Physical Date of Admission Date of Admission 11/24/18 Identification/Chief Complaint Chief Complaint vomiting Source Source: Caregiver, Chart review, Patient History of Present Illness History of Present Illness [facility] two prior hospitalizations for SBO and has not been able to eat the past 2 days and developing worsening distension of his abdomen and vomited overnight, nursing reports it looked like coffee grounds, he states he vomited into his mouth and that caused some coughing. He now has an NG tube with minimal output and remains distended but no further vomiting. His Xrays suggest a retrocardiac infiltrate and his WBC is elevated but he is afebrile. He is on Zosyn, Zofran, Morphine and IVF and alert and oriented and comfortable Past Medical History Cardiovascular: AFIB, HTN, Hyperlipidemia, Other Pulmonary: COPD CENTRAL NERVOUS SYSTEM: Other GI: GERD, Other Heme/Onc: Cancer Hepatobiliary: Hep A/B/C Psych: Anxiety Rheumatologic: No pertinent hx Infectious disease: No pertinent hx Renal/: No pertinent hx, Prostate Ca. Endocrine: No pertinent hx, Hypothyroidism Past Surgical History Past Surgical History: Appendectomy, Tonsillectomy, Other Family History Family History: Other Social History ALCOHOL: occassional Drugs: None Current Problem List Problem List Problems Medical Problems: (1) Pneumonia Status: Acute Current Medications Current Medications Current Medications Medications (Trade) Dose Ordered Sig/Anjana Start Time Stop Time Status Last Admin Dose Admin Benzocaine (Hurricaine One) 1 spray 1X ONCE 11/24/18 05:15 11/24/18 05:16 DC Fentanyl Citrate (Fentanyl 2ml Vial) 50 mcg 1X ONCE 11/24/18 03:15 11/24/18 03:18 DC 11/24/18 03:45 50 MCG Info (CONTRAST GIVEN -- Rx MONITORING) 1 each PRN DAILY PRN 11/24/18 03:45 11/26/18 03:44 Iohexol (Omnipaque 300 Mg/ml) 75 ml 1X ONCE 11/24/18 03:45 11/24/18 03:46 DC 11/24/18 04:30 75 ML Morphine Sulfate (Morphine Sulfate) 4 mg PRN Q2HR PRN 11/24/18 06:00 Ondansetron HCl (Zofran) 4 mg PRN Q6HRS PRN 11/24/18 06:00 Piperacillin Sod/ Tazobactam Sod (Zosyn Per Pharmacy) 1 each PRN DAILY PRN 11/24/18 06:00 Piperacillin Sod/ Tazobactam Sod 3.375 gm/Sodium Chloride 50 ml @ 100 mls/hr Q6HRS 11/24/18 12:00 Sodium Chloride 1,000 ml @ 125 mls/hr 1X ONCE 11/24/18 06:00 11/24/18 13:59 11/24/18 08:10 125 MLS/HR Allergies Allergies Allergies Coded Allergies Type Severity Reaction Last Updated Verified No Known Drug Allergies 09/14/18 No ROS Review of System CONSTITUTIONAL: No fever or chills EYES: No recent changes SKIN: No rash or itching CARDIOVASCULAR: Hx of afib, no chest pain RESPIRATORY: No SOB or cough GASTROINTESTINAL: see HPI NEUROLOGICAL: No headaches or weakness ENDOCRINE: No cold or heat intolerance GENITOURINARY: No urgency or frequency of urination MUSCULOSKELETAL: No back pain or joint pain LYMPHATICS: No enlarged lymph nodes PSYCHIATRIC: No anxiety or depression Physical Exam Physical Exam GEN.: NG in place. Alert and oriented. HEENT: Head is normocephalic, he has a 10 day old bruise of his soft tissue around left eye but no bony pain NECK: Supple. LUNGS: Clear to auscultation. HEART: rate controlled, not on monitor, S1, S2 present. Peripheral pulses intact ABDOMEN: distended. Positive bowel sounds may be from NG suction. EXTREMITIES: Without any cyanosis. NEUROLOGIC: Normal speech, normal tone PSYCHIATRIC: Normal affect, normal mood. SKIN: No ulcerations Vitals Vitals Vital Signs Date Time Temp Pulse Resp B/P (MAP) Pulse Ox O2 Delivery O2 Flow Rate FiO2 11/24/18 08:00 Nasal Cannula 1.0 11/24/18 07:46 98.1 98 18 136/77 (96) 92 98.1 Labs Labs Laboratory Tests Test 11/24/18 03:09 White Blood Count 15.6 x10^3/uL (4.0-11.0) Red Blood Count 3.73 x10^6/uL (4.30-5.70) Hemoglobin 11.6 g/dL (13.0-17.5) Hematocrit 36.0 % (39.0-53.0) Mean Corpuscular Volume 97 fL (79-100) Mean Corpuscular Hemoglobin 31 pg (25-35) Mean Corpuscular Hemoglobin Concent 32 g/dL (31-37) Red Cell Distribution Width 15.8 % (11.5-14.5) Platelet Count 308 x10^3/uL (140-400) Neutrophils (%) (Auto) 80 % (31-73) Lymphocytes (%) (Auto) 11 % (24-48) Monocytes (%) (Auto) 9 % (0-9) Eosinophils (%) (Auto) 0 % (0-3) Basophils (%) (Auto) 0 % (0-3) Neutrophils # (Auto) 12.4 x10^3uL (1.8-7.7) Lymphocytes # (Auto) 1.7 x10^3/uL (1.0-4.8) Monocytes # (Auto) 1.4 x10^3/uL (0.0-1.1) Eosinophils # (Auto) 0.0 x10^3/uL (0.0-0.7) Basophils # (Auto) 0.1 x10^3/uL (0.0-0.2) Prothrombin Time 15.7 SEC (11.7-14.0) Prothromb Time International Ratio 1.3 (0.8-1.1) Sodium Level 137 mmol/L (136-145) Potassium Level 4.4 mmol/L (3.5-5.1) Chloride Level 99 mmol/L (98-107) Carbon Dioxide Level 31 mmol/L (21-32) Anion Gap 7 (6-14) Blood Urea Nitrogen 19 mg/dL (8-26) Creatinine 0.8 mg/dL (0.7-1.3) Estimated GFR (Cockcroft-Gault) 94.0 BUN/Creatinine Ratio 24 (6-20) Glucose Level 159 mg/dL (70-99) Lactic Acid Level 1.6 mmol/L (0.4-2.0) Calcium Level 9.2 mg/dL (8.5-10.1) Total Bilirubin 0.9 mg/dL (0.2-1.0) Aspartate Amino Transf (AST/SGOT) 14 U/L (15-37) Alanine Aminotransferase (ALT/SGPT) 17 U/L (16-63) Alkaline Phosphatase 78 U/L (46-116) Troponin I Quantitative < 0.017 ng/mL (0.000-0.055) Total Protein 6.8 g/dL (6.4-8.2) Albumin 3.1 g/dL (3.4-5.0) Albumin/Globulin Ratio 0.8 (1.0-1.7) Laboratory Tests Test 11/24/18 03:09 White Blood Count 15.6 x10^3/uL (4.0-11.0) Red Blood Count 3.73 x10^6/uL (4.30-5.70) Hemoglobin 11.6 g/dL (13.0-17.5) Hematocrit 36.0 % (39.0-53.0) Mean Corpuscular Volume 97 fL (79-100) Mean Corpuscular Hemoglobin 31 pg (25-35) Mean Corpuscular Hemoglobin Concent 32 g/dL (31-37) Red Cell Distribution Width 15.8 % (11.5-14.5) Platelet Count 308 x10^3/uL (140-400) Neutrophils (%) (Auto) 80 % (31-73) Lymphocytes (%) (Auto) 11 % (24-48) Monocytes (%) (Auto) 9 % (0-9) Eosinophils (%) (Auto) 0 % (0-3) Basophils (%) (Auto) 0 % (0-3) Neutrophils # (Auto) 12.4 x10^3uL (1.8-7.7) Lymphocytes # (Auto) 1.7 x10^3/uL (1.0-4.8) Monocytes # (Auto) 1.4 x10^3/uL (0.0-1.1) Eosinophils # (Auto) 0.0 x10^3/uL (0.0-0.7) Basophils # (Auto) 0.1 x10^3/uL (0.0-0.2) Prothrombin Time 15.7 SEC (11.7-14.0) Prothromb Time International Ratio 1.3 (0.8-1.1) Sodium Level 137 mmol/L (136-145) Potassium Level 4.4 mmol/L (3.5-5.1) Chloride Level 99 mmol/L (98-107) Carbon Dioxide Level 31 mmol/L (21-32) Anion Gap 7 (6-14) Blood Urea Nitrogen 19 mg/dL (8-26) Creatinine 0.8 mg/dL (0.7-1.3) Estimated GFR (Cockcroft-Gault) 94.0 BUN/Creatinine Ratio 24 (6-20) Glucose Level 159 mg/dL (70-99) Lactic Acid Level 1.6 mmol/L (0.4-2.0) Calcium Level 9.2 mg/dL (8.5-10.1) Total Bilirubin 0.9 mg/dL (0.2-1.0) Aspartate Amino Transf (AST/SGOT) 14 U/L (15-37) Alanine Aminotransferase (ALT/SGPT) 17 U/L (16-63) Alkaline Phosphatase 78 U/L (46-116) Troponin I Quantitative < 0.017 ng/mL (0.000-0.055) Total Protein 6.8 g/dL (6.4-8.2) Albumin 3.1 g/dL (3.4-5.0) Albumin/Globulin Ratio 0.8 (1.0-1.7) Images Images PROCEDURE: CT ABD PELV W/ IV CONTRST ONLY INDICATION: S/P sbo, Omni 300 75 mL COMPARISON: October 27, 2018. TECHNIQUE: Axial CT images obtained through the abdomen and pelvis with contrast. One or more of the following individualized dose reduction techniques were utilized for this examination: 1. Automated exposure control; 2. Adjustment of the mA and/or kV according to patient size; 3. Use of iterative reconstruction technique. FINDINGS: Dilation of the esophagus with debris within. Linear high density structure is partially seen within the lumen. Disorganized pulmonary markings are seen at the lower lungs with focal opacities at lung bases again seen. Patchy nodular opacity right midlung measuring up to 15 mm. Calcific atherosclerosis. Coronary artery calcific atherosclerosis. Low-density lesion right lobe of the liver, 10 mm. Mild periportal edema. No peripancreatic fluid collection. Spleen unremarkable. No left-sided hydronephrosis. Urinary bladder is partially distended. No right-sided hydronephrosis. Low-density exophytic lesion right kidney measuring up to about 13 mm. Severe dilation of esophagus, stomach as well as proximal small bowel loops with more distal decompression. For example some of the small bowel loops measure up to about 8 cm in diameter. Suspected transition point right lower quadrant. Degenerative changes throughout the spine. Wall thickening of the esophagus. Edema to the soft tissues. Osseous demineralization. Linear lucency in the left inferior pubic ramus. Sclerosis at left lower rib could be from prior rib fracture. IMPRESSION: 1. Severe dilation of proximal small bowel loops as well as the stomach and esophagus which can be seen with a small bowel obstruction. 2. There is some wall thickening of the esophagus with fluid dilating the esophagus. This could be related to the bowel obstruction with esophagitis. 3. Chronic interstitial changes to the bilateral lungs. There is some patchy opacity seen at the bilateral lungs and a portion of this could be related to the patient's chronic lung disease but superimposed infection or aspiration can have this appearance as well. There is also groundglass nodular opacity right midlung. Would consider obtaining a follow-up CT in a few months to ensure no increase in these findings to ensure that there is not a neoplastic cause. 4. Calcific atherosclerosis including of the coronary arteries. 5. Repeat demonstration of low-density lesion of the right lobe the liver as well as low-density lesion of the right kidney. 6. Linear lucency through left inferior pubic ramus. Could be secondary to artifact or vascular channel but would correlate with point tenderness to ensure that this is not from a fracture. 7. Repeat demonstration of mild compression fracture of T12 and L1. Moderate compression fracture of T10, T9 and T7. T7 was outside of the [id number] on prior exam but the other fractures were present on prior as well. Electronically signed by: Fito Viera MD (11/24/2018 5:38 AM) [facility] VTE Prophylaxis Ordered VTE Prophylaxis Devices: Yes VTE Pharmacological Prophylaxi: Yes Assessment/Plan Assessment/Plan SBO - admitted for NG decompression and surgical consult esophagitis -add IV pantoprazole aspiration pneumonia _ IV Zosyn anemia with coffe ground emesis reported overnight from [facility] nursing- GI consult hyperglycemia _ SSI CAD without chest pain old compression fractures of spine contusion left eye from recent fall Hx of afib - place on monitor Steve DALTON MD Nov 24, 2018 09:36
[2018-11-24] MEDS ORDERED: DEXTROSE 50% 25 GM / 50ML DISP.SYRIN. IV PRN (09:45)
[2018-11-24] MEDS: AMINO AC 3%/ELECTROLYTE/GLYCER 1,000 ML IV SCH (10:47)
[2018-11-24 11:06] VITALS: BP 113/63
[2018-11-24] MEDS: PANTOPRAZOLE IV PUSH 40 MG VIAL. IVP SCH (11:07)
[2018-11-24] MEDS: MORPHINE SULFATE 4 MG/ML VIAL. IV PRN ×4 (11:31→21:29)
--- NOTE | 2018-11-24 11:41 | PDOC2 ---
GI CONSULT Reason For Consult: Coffee-ground emesis, anemia, SBO HPI: HPI: 78 y/o male sent to ER from [facility] yesterday w/ dark emesis. Imaging as below, third admission this year for SBO. He tells me he passed flatus and a small amount of stool yesterday. Currently denies abd pain. Confirms h/o dark emesis, denies melena. Frustrated w/ recurrent symptoms. Colonoscopy (by Dr. Rogers) in 2014 - can see he had biopsy and polypectomy but cannot view procedure or pathology reports. EGD 08/27/18 ([address] Dr. 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 SBS 09/14/18: high-grade mid small bowel obstruction. On 09/14/18 underwent laparotomy with release of SBO and decompression of SB (by Dr. Neal). SBS 11/02/18: partial distal small bowel obstruction. H/o GERD. No GB or pancreas history. Hep C Ab reactive in the past, PCR 20. No NSAIDs. Summary list includes ASA and omeprazole - he knows he takes something for his stomach but can't remember what. PMH: PMH: A Fib, HTN, valve insufficiency, COPD, pneumonia, ILD, valve insufficiency, GERD, esophageal web, Hep C, colon polyps, ACD, HLD, hypothyroidism, depression, OA prostate cancer s/p radiation and prostatectomy, appendectomy, bone marrow biopsy FH: Family History: Cancer, Other (sister - lupus) Social History: Smoke: Quit ALCOHOL: other (daily in the past) Drugs: None ROS: GEN: Denies fevers, chills, sweats HEENT: Denies blurred vision, sore throat CV: Denies chest pain RESP: +SOA GI: Per HPI : Denies hematuria, dysuria ENDO: Denies weight changes NEURO: Denies confusion, dizziness MSK: +weakness SKIN: Denies jaundice, pruritus Vitals: Vitals: Vital Signs Date Time Temp Pulse Resp B/P (MAP) Pulse Ox O2 Delivery O2 Flow Rate FiO2 11/24/18 11:31 92 Nasal Cannula 1.0 11/24/18 07:46 98.1 98 18 136/77 (96) 98.1 Labs: Labs: Laboratory Tests Test 11/24/18 03:09 White Blood Count 15.6 x10^3/uL (4.0-11.0) Red Blood Count 3.73 x10^6/uL (4.30-5.70) Hemoglobin 11.6 g/dL (13.0-17.5) Hematocrit 36.0 % (39.0-53.0) Mean Corpuscular Volume 97 fL (79-100) Mean Corpuscular Hemoglobin 31 pg (25-35) Mean Corpuscular Hemoglobin Concent 32 g/dL (31-37) Red Cell Distribution Width 15.8 % (11.5-14.5) Platelet Count 308 x10^3/uL (140-400) Neutrophils (%) (Auto) 80 % (31-73) Lymphocytes (%) (Auto) 11 % (24-48) Monocytes (%) (Auto) 9 % (0-9) Eosinophils (%) (Auto) 0 % (0-3) Basophils (%) (Auto) 0 % (0-3) Neutrophils # (Auto) 12.4 x10^3uL (1.8-7.7) Lymphocytes # (Auto) 1.7 x10^3/uL (1.0-4.8) Monocytes # (Auto) 1.4 x10^3/uL (0.0-1.1) Eosinophils # (Auto) 0.0 x10^3/uL (0.0-0.7) Basophils # (Auto) 0.1 x10^3/uL (0.0-0.2) Reticulocyte Count (auto) 2.4 % (0.5-2.5) Prothrombin Time 15.7 SEC (11.7-14.0) Prothromb Time International Ratio 1.3 (0.8-1.1) Sodium Level 137 mmol/L (136-145) Potassium Level 4.4 mmol/L (3.5-5.1) Chloride Level 99 mmol/L (98-107) Carbon Dioxide Level 31 mmol/L (21-32) Anion Gap 7 (6-14) Blood Urea Nitrogen 19 mg/dL (8-26) Creatinine 0.8 mg/dL (0.7-1.3) Estimated GFR (Cockcroft-Gault) 94.0 BUN/Creatinine Ratio 24 (6-20) Glucose Level 159 mg/dL (70-99) Lactic Acid Level 1.6 mmol/L (0.4-2.0) Calcium Level 9.2 mg/dL (8.5-10.1) Iron Level 51 ug/dL (65-175) Total Iron Binding Capacity 225 ug/dL (250-450) Iron Saturation 23 % (15-34) Total Bilirubin 0.9 mg/dL (0.2-1.0) Aspartate Amino Transf (AST/SGOT) 14 U/L (15-37) Alanine Aminotransferase (ALT/SGPT) 17 U/L (16-63) Alkaline Phosphatase 78 U/L (46-116) Troponin I Quantitative < 0.017 ng/mL (0.000-0.055) Total Protein 6.8 g/dL (6.4-8.2) Albumin 3.1 g/dL (3.4-5.0) Albumin/Globulin Ratio 0.8 (1.0-1.7) Allergies: Coded Allergies: No Known Drug Allergies (Unverified , 09/14/18) Medications: Current Medications Medications (Trade) Dose Ordered Sig/Anjana Route PRN Reason Start Time Stop Time Status Last Admin Dose Admin Fentanyl Citrate (Fentanyl 2ml Vial) 50 mcg 1X ONCE IV 11/24/18 03:15 11/24/18 03:18 DC 11/24/18 03:45 Sodium Chloride 1,000 ml @ 1,000 mls/hr 1X ONCE IV 11/24/18 03:15 11/24/18 04:14 DC 11/24/18 03:45 Ondansetron HCl (Zofran) 4 mg 1X ONCE IV 11/24/18 03:15 11/24/18 03:18 DC 11/24/18 03:45 Iohexol (Omnipaque 300 Mg/ml) 75 ml 1X ONCE IV 11/24/18 03:45 11/24/18 03:46 DC 11/24/18 04:30 Morphine Sulfate (Morphine Sulfate) 4 mg 1X ONCE IV 11/24/18 06:00 11/24/18 06:01 DC 11/24/18 06:03 Sodium Chloride 1,000 ml @ 1,000 mls/hr 1X ONCE IV 11/24/18 06:00 11/24/18 06:59 DC 11/24/18 06:03 Morphine Sulfate (Morphine Sulfate) 4 mg PRN Q2HR PRN IV PAIN 11/24/18 06:00 11/24/18 11:31 Sodium Chloride 1,000 ml @ 125 mls/hr 1X ONCE IV 11/24/18 06:00 11/24/18 13:59 11/24/18 08:10 Piperacillin Sod/ Tazobactam Sod 3.375 gm/Sodium Chloride 50 ml @ 100 mls/hr 1X ONCE IV 11/24/18 06:15 11/24/18 06:44 DC 11/24/18 06:53 Pantoprazole Sodium (PROTONIX VIAL for IV PUSH) 40 mg DAILYAC IVP 11/24/18 11:30 11/24/18 11:07 Amino Acids/ Glycerin/ Electrolytes 1,000 ml @ 80 mls/hr [id number] IV 11/24/18 09:45 11/24/18 10:47 Imaging: Imaging: CXR 11/24 IMPRESSION: Increase in bilateral interstitial infiltrates or pulmonary edema. Stable small right-sided pleural effusion. There is significant distention of the bowel. CT A/P 11/24 IMPRESSION: 1. Severe dilation of proximal small bowel loops as well as the stomach and esophagus which can be seen with a small bowel obstruction. 2. There is some wall thickening of the esophagus with fluid dilating the esophagus. This could be related to the bowel obstruction with esophagitis. 3. Chronic interstitial changes to the bilateral lungs. There is some patchy opacity seen at the bilateral lungs and a portion of this could be related to the patient's chronic lung disease but superimposed infection or aspiration can have this appearance as well. There is also groundglass nodular opacity right midlung. Would consider obtaining a follow-up CT in a few months to ensure no increase in these findings to ensure that there is not a neoplastic cause. 4. Calcific atherosclerosis including of the coronary arteries. 5. Repeat demonstration of low-density lesion of the right lobe the liver as well as low-density lesion of the right kidney. 6. Linear lucency through left inferior pubic ramus. Could be secondary to artifact or vascular channel but would correlate with point tenderness to ensure that this is not from a fracture. 7. Repeat demonstration of mild compression fracture of T12 and L1. Moderate compression fracture of T10, T9 and T7. T7 was outside of the [id number] on prior exam but the other fractures were present on prior as well. KUB 11/24 IMPRESSION: 1. NG tube appropriately positioned. 2. Marked gaseous dilatation of small bowel throughout the abdomen concerning for small bowel obstruction, high-grade. 3. Probable retrocardiac pneumonia, on a background of coarse interstitial changes which may reflect fibrosis. These findings could be better evaluated with dedicated chest x-ray. PE: GEN: NAD HEENT: ecchymosis left eye, NG w/ dark output LUNGS: NC, diminished HEART: RRR ABD: distended, non-tender, no BS EXTREMITY: No edema SKIN: wound left eye, elbow NEURO/PSYCH: A & O 3 A/P: A/P: Recurrent SBO "Coffee-ground emesis" - recent EGD w/ dilation of esophageal web ACD - confirmed w/ iron studies, has also had past hematology eval and bone marrow biopsy; current Hgb not below baseline FH lupus - RF and BAYLEE neg in 2018 ILD, h/o prostate cancer, h/o A Fib -- Agree w/ IV PPI. Continue NGT, follow surg recs. Current Hgb not below baseline and BUN normal - monitor. TIO ACEVEDO Nov 24, 2018 11:40
[2018-11-24] MEDS: INSULIN LISPRO 300 UNITS/3 ML INSULN.PEN. SQ SCH ×2 (12:00→16:56)
[2018-11-24] MEDS: BUDESONIDE 0.5 MG/2 ML NEBU. NEB SCH ×2 (12:03→19:37)
[2018-11-24] MEDS: IPRATRPIUM/ALBUTEROL 0.5/2.5MG 3 ML NEBU. NEB SCH ×3 (12:03→19:37)
[2018-11-24] MEDS: PIPERACILLIN/TAZOBACTAM 3.375 GM in IV NORMAL SALINE 50ML 50 ML IV SCH ×3 (13:40→23:56)
[2018-11-24 15:19] VITALS: BP 100/61
[2018-11-24 19:54] VITALS: BP 137/83
[2018-11-24 23:43] VITALS: BP 130/74
[2018-11-25 00:12] LABS: HEMOGLOBIN A1C 5.7 % (4.8-5.6)
[2018-11-25] MEDS: AMINO AC 3%/ELECTROLYTE/GLYCER 1,000 ML IV SCH ×2 (01:38→18:10)
[2018-11-25] MEDS: MORPHINE SULFATE 4 MG/ML VIAL. IV PRN ×5 (02:52→18:11)
[2018-11-25 03:00] VITALS: BP 107/66
[2018-11-25] MEDS: ALBUTEROL SULFATE 2.5 MG/3 ML NEBU. NEB PRN (04:50)
[2018-11-25] MEDS ORDERED: FUROSEMIDE 40 MG/4 ML VIAL. IVP ONE (05:00)
[2018-11-25] MEDS: PIPERACILLIN/TAZOBACTAM 3.375 GM in IV NORMAL SALINE 50ML 50 ML IV SCH ×4 (05:56→23:56)
[2018-11-25 07:05] VITALS: BP 109/66
--- NOTE | 2018-11-25 07:49 | RAD ---
CHEST AP ONLY Clinical Indication: SOA Comparison: 11/24/2018 portable chest x-ray exam. Findings: Enteric tube terminates at the left lower quadrant within the stomach. The cardiomediastinal silhouette is normal. Pulmonary interstitial thickening is noted diffusely. Retrocardiac left basilar consolidation noted. Mild bibasilar discoid atelectasis noted. There is no pneumothorax. Very small pleural effusions are suspected. No acute bone abnormality. Gaseous distention of bowel noted. IMPRESSION: Congestive heart failure. Bibasilar atelectasis. Retrocardiac consolidation. Very small pleural effusions. Gaseous distention of bowel again seen. Electronically signed by: Channing Stanley MD (11/25/2018 7:47 AM) [facility]
[2018-11-25] MEDS: INSULIN LISPRO 300 UNITS/3 ML INSULN.PEN. SQ SCH ×3 (08:00→17:00)
[2018-11-25] MEDS: BUDESONIDE 0.5 MG/2 ML NEBU. NEB SCH ×2 (08:01→20:10)
[2018-11-25] MEDS: IPRATRPIUM/ALBUTEROL 0.5/2.5MG 3 ML NEBU. NEB SCH ×4 (08:01→20:10)
[2018-11-25] MEDS: PANTOPRAZOLE IV PUSH 40 MG VIAL. IVP SCH ×2 (09:04→18:11)
--- NOTE | 2018-11-25 09:38 | PDOC ---
REMBERTO WINSTON [employer] 11/25/18 0938: SURGICAL PROGRESS NOTE Subjective pain distention day Vital Signs Vital Signs Date Time Temp Pulse Resp B/P (MAP) Pulse Ox O2 Delivery O2 Flow Rate FiO2 11/25/18 08:34 Nasal Cannula 1.5 11/25/18 07:53 88 11/25/18 07:05 98.3 94 20 109/66 (80) 98.3 I&O Intake and Output 11/25/18 07:00 Intake Total 0 ml Output Total 2350 ml Balance -2350 ml Intake Oral 0 ml Output Urine Total 2250 ml Gastric Drainage Total 100 ml # Voids 3 General: Cooperative, No acute distress HEENT: Other (ng in place) Abdomen: Soft, Other (distended, tender) Labs Laboratory Tests Test 11/24/18 03:09 11/24/18 08:00 11/24/18 11:59 11/24/18 16:53 White Blood Count 15.6 x10^3/uL (4.0-11.0) Red Blood Count 3.73 x10^6/uL (4.30-5.70) Hemoglobin 11.6 g/dL (13.0-17.5) Hematocrit 36.0 % (39.0-53.0) Mean Corpuscular Volume 97 fL (79-100) Mean Corpuscular Hemoglobin 31 pg (25-35) Mean Corpuscular Hemoglobin Concent 32 g/dL (31-37) Red Cell Distribution Width 15.8 % (11.5-14.5) Platelet Count 308 x10^3/uL (140-400) Neutrophils (%) (Auto) 80 % (31-73) Lymphocytes (%) (Auto) 11 % (24-48) Monocytes (%) (Auto) 9 % (0-9) Eosinophils (%) (Auto) 0 % (0-3) Basophils (%) (Auto) 0 % (0-3) Neutrophils # (Auto) 12.4 x10^3uL (1.8-7.7) Lymphocytes # (Auto) 1.7 x10^3/uL (1.0-4.8) Monocytes # (Auto) 1.4 x10^3/uL (0.0-1.1) Eosinophils # (Auto) 0.0 x10^3/uL (0.0-0.7) Basophils # (Auto) 0.1 x10^3/uL (0.0-0.2) Reticulocyte Count (auto) 2.4 % (0.5-2.5) Prothrombin Time 15.7 SEC (11.7-14.0) Prothromb Time International Ratio 1.3 (0.8-1.1) Sodium Level 137 mmol/L (136-145) Potassium Level 4.4 mmol/L (3.5-5.1) Chloride Level 99 mmol/L (98-107) Carbon Dioxide Level 31 mmol/L (21-32) Anion Gap 7 (6-14) Blood Urea Nitrogen 19 mg/dL (8-26) Creatinine 0.8 mg/dL (0.7-1.3) Estimated GFR (Cockcroft-Gault) 94.0 BUN/Creatinine Ratio 24 (6-20) Glucose Level 159 mg/dL (70-99) Hemoglobin A1c 5.7 % (4.8-5.6) Lactic Acid Level 1.6 mmol/L (0.4-2.0) Calcium Level 9.2 mg/dL (8.5-10.1) Iron Level 51 ug/dL (65-175) Total Iron Binding Capacity 225 ug/dL (250-450) Iron Saturation 23 % (15-34) Ferritin 124 ng/mL (26-388) Total Bilirubin 0.9 mg/dL (0.2-1.0) Aspartate Amino Transf (AST/SGOT) 14 U/L (15-37) Alanine Aminotransferase (ALT/SGPT) 17 U/L (16-63) Alkaline Phosphatase 78 U/L (46-116) Troponin I Quantitative < 0.017 ng/mL (0.000-0.055) Total Protein 6.8 g/dL (6.4-8.2) Albumin 3.1 g/dL (3.4-5.0) Albumin/Globulin Ratio 0.8 (1.0-1.7) Vitamin B12 Level 260 pg/mL (247-911) Thyroid Stimulating Hormone (TSH) 8.876 uIU/mL (0.358-3.74) Nasal Screen MRSA (PCR) Negative (Negative) Glucose (Fingerstick) 87 mg/dL (70-99) 102 mg/dL (70-99) Test 11/24/18 20:49 11/25/18 07:02 Glucose (Fingerstick) 81 mg/dL (70-99) 101 mg/dL (70-99) Laboratory Tests Test 11/24/18 11:59 11/24/18 16:53 11/24/18 20:49 11/25/18 07:02 Glucose (Fingerstick) 87 mg/dL (70-99) 102 mg/dL (70-99) 81 mg/dL (70-99) 101 mg/dL (70-99) Problem List Problems Medical Problems: (1) Pneumonia Status: Acute Assessment/Plan NG decompression xrays pending SHAKEEL SOMMER MD 11/25/18 2016: SURGICAL PROGRESS NOTE Assessment/Plan pt seen plain films are improved still has some distention and discomfort continue NG decompression Cardiology and ID to see REMBERTO W[employer]ON [employer] Nov 25, 2018 09:38 SHAKEEL SOMMER MD Nov 25, 2018 20:16
[2018-11-25 10:54] LABS: HEMATOCRIT 26.4 % (39.0-53.0); HEMOGLOBIN 8.6 g/dL (13.0-17.5); RED BLOOD COUNT 2.72 x10^6/uL (4.30-5.70); RED CELL DISTRIBUTION WIDTH 15.8 % (11.5-14.5); WHITE BLOOD COUNT 11.3 x10^3/uL (4.0-11.0)
[2018-11-25 11:05] VITALS: BP 123/68
[2018-11-25 11:07] LABS: CALCIUM 7.9 mg/dL (8.5-10.1); CREATININE 0.8 mg/dL (0.7-1.3); POTASSIUM 3.4 mmol/L (3.5-5.1)
--- NOTE | 2018-11-25 11:25 | RAD ---
Examination: ABDOMEN SUPINE UPRIGHT History: SMALL BOWEL OBSTRUCTION Comparison/Correlation: 11/24/2018 CT abdomen and pelvis with contrast Findings: Supine and upright views of the abdomen were obtained. Portable technique utilized. Lung bases were not significantly included on this exam. Enteric tube terminates involving the left upper quadrant stomach region. Moderate quantity of stool in the colon noted. Fluid levels are present within distended small bowel. Notable decrease in distention of small bowel is evident upon correlation with CT exam. Impression: Marked decrease in small bowel obstruction. Electronically signed by: Channing Stanley MD (11/25/2018 11:22 AM) [facility]
--- NOTE | 2018-11-25 11:36 | PDOC ---
Objective: Objective: Reviewed chart. I ordered labs this morning. Vital Signs: Vital Signs Date Time Temp Pulse Resp B/P (MAP) Pulse Ox O2 Delivery O2 Flow Rate FiO2 11/25/18 08:34 Nasal Cannula 1.5 11/25/18 07:53 88 11/25/18 07:05 98.3 94 20 109/66 (80) 98.3 Labs: Laboratory Tests Test 11/24/18 11:59 11/24/18 16:53 11/24/18 20:49 11/25/18 07:02 Glucose (Fingerstick) 87 mg/dL 102 mg/dL 81 mg/dL 101 mg/dL Test 11/25/18 10:45 White Blood Count 11.3 x10^3/uL Red Blood Count 2.72 x10^6/uL Hemoglobin 8.6 g/dL Hematocrit 26.4 % Mean Corpuscular Volume 97 fL Mean Corpuscular Hemoglobin 32 pg Mean Corpuscular Hemoglobin Concent 33 g/dL Red Cell Distribution Width 15.8 % Platelet Count 181 x10^3/uL Sodium Level 136 mmol/L Potassium Level 3.4 mmol/L Chloride Level 99 mmol/L Carbon Dioxide Level 31 mmol/L Anion Gap 6 Blood Urea Nitrogen 21 mg/dL Creatinine 0.8 mg/dL Estimated GFR (Cockcroft-Gault) 94.0 Glucose Level 95 mg/dL Calcium Level 7.9 mg/dL Imaging: Abd X-Ray 11/25 Impression: Marked decrease in small bowel obstruction. PE: GEN: NAD HEENT: NG canister w/ ~500 dark brown/green bilious material LUNGS: snoring ABD: quiet, soft, less distended NEURO/PSYCH: sleeping - did not awaken during exam A/P: Recurrent SBO "Coffee-ground emesis" ACD - today's Hgb a bit below baseline, BUN remains WNL -- Interval imaging w/ improvement - continue per surgery. Drop in Hgb - monitor. Continue IV PPI - will increase to BID. On PPN. TIO ACEVEDO Nov 25, 2018 11:36
--- NOTE | 2018-11-25 12:05 | NUR ---
Pt complaining of urge with frequent urgency and voiding 100 to 200ml every time equal to 600ml within 2hours. Used bladder scanner pt was retaining no more then 200ml. -Jewell LOJA
--- NOTE | 2018-11-25 12:23 | PDOC ---
PROGRESS NOTES Subjective Subjective Patient having multiple issues last night including increased sob cxr showed CHF patient diuresis well with IV Lasix. ivf stopped. BP became low. patient now stable. and feeling better. freq PVC's noted low K+ noted yesterday. patient has + blood clx 1/4 bottles. patient still has no BS and mild distention Objective Objective Vital Signs Date Time Temp Pulse Resp B/P (MAP) Pulse Ox O2 Delivery O2 Flow Rate FiO2 11/25/18 11:47 98 Nasal Cannula 3.0 11/25/18 11:05 98.8 104 22 123/68 (86) 98.8 Intake and Output 11/25/18 07:00 Intake Total 0 ml Output Total 2350 ml Balance -2350 ml Intake Oral 0 ml Output Urine Total 2250 ml Gastric Drainage Total 100 ml # Voids 3 Physical Exam Abdomen: Other (-bs mild distenstion) Heart: Regular rate Extremities: Other (2+ edema) General: Alert Lungs: Other (few crackle bases) Assessment Assessment Problems Medical Problems: (1) Pneumonia Status: Acute Plan Plan of Care CHF + blood Clx likely contaminant SBO esophagitis possible GI bleed aspiration pneumonia anemia hyperglycemia CAD old compression fractures of spine contusion left eye from recent fall Hx of afib Pulm Fibrosis Severe protein malnutrition Comment Review of Relevant Check labs ans CXR consult ID and Cardiology Gentle hydration with PPN continue surg care Labs Laboratory Tests Test 11/24/18 03:09 11/24/18 08:00 11/24/18 11:59 11/24/18 16:53 White Blood Count 15.6 x10^3/uL (4.0-11.0) Red Blood Count 3.73 x10^6/uL (4.30-5.70) Hemoglobin 11.6 g/dL (13.0-17.5) Hematocrit 36.0 % (39.0-53.0) Mean Corpuscular Volume 97 fL (79-100) Mean Corpuscular Hemoglobin 31 pg (25-35) Mean Corpuscular Hemoglobin Concent 32 g/dL (31-37) Red Cell Distribution Width 15.8 % (11.5-14.5) Platelet Count 308 x10^3/uL (140-400) Neutrophils (%) (Auto) 80 % (31-73) Lymphocytes (%) (Auto) 11 % (24-48) Monocytes (%) (Auto) 9 % (0-9) Eosinophils (%) (Auto) 0 % (0-3) Basophils (%) (Auto) 0 % (0-3) Neutrophils # (Auto) 12.4 x10^3uL (1.8-7.7) Lymphocytes # (Auto) 1.7 x10^3/uL (1.0-4.8) Monocytes # (Auto) 1.4 x10^3/uL (0.0-1.1) Eosinophils # (Auto) 0.0 x10^3/uL (0.0-0.7) Basophils # (Auto) 0.1 x10^3/uL (0.0-0.2) Reticulocyte Count (auto) 2.4 % (0.5-2.5) Prothrombin Time 15.7 SEC (11.7-14.0) Prothromb Time International Ratio 1.3 (0.8-1.1) Sodium Level 137 mmol/L (136-145) Potassium Level 4.4 mmol/L (3.5-5.1) Chloride Level 99 mmol/L (98-107) Carbon Dioxide Level 31 mmol/L (21-32) Anion Gap 7 (6-14) Blood Urea Nitrogen 19 mg/dL (8-26) Creatinine 0.8 mg/dL (0.7-1.3) Estimated GFR (Cockcroft-Gault) 94.0 BUN/Creatinine Ratio 24 (6-20) Glucose Level 159 mg/dL (70-99) Hemoglobin A1c 5.7 % (4.8-5.6) Lactic Acid Level 1.6 mmol/L (0.4-2.0) Calcium Level 9.2 mg/dL (8.5-10.1) Iron Level 51 ug/dL (65-175) Total Iron Binding Capacity 225 ug/dL (250-450) Iron Saturation 23 % (15-34) Ferritin 124 ng/mL (26-388) Total Bilirubin 0.9 mg/dL (0.2-1.0) Aspartate Amino Transf (AST/SGOT) 14 U/L (15-37) Alanine Aminotransferase (ALT/SGPT) 17 U/L (16-63) Alkaline Phosphatase 78 U/L (46-116) Troponin I Quantitative < 0.017 ng/mL (0.000-0.055) Total Protein 6.8 g/dL (6.4-8.2) Albumin 3.1 g/dL (3.4-5.0) Albumin/Globulin Ratio 0.8 (1.0-1.7) Vitamin B12 Level 260 pg/mL (247-911) Thyroid Stimulating Hormone (TSH) 8.876 uIU/mL (0.358-3.74) Nasal Screen MRSA (PCR) Negative (Negative) Glucose (Fingerstick) 87 mg/dL (70-99) 102 mg/dL (70-99) Test 11/24/18 20:49 11/25/18 07:02 11/25/18 10:45 11/25/18 10:55 Glucose (Fingerstick) 81 mg/dL (70-99) 101 mg/dL (70-99) 93 mg/dL (70-99) White Blood Count 11.3 x10^3/uL (4.0-11.0) Red Blood Count 2.72 x10^6/uL (4.30-5.70) Hemoglobin 8.6 g/dL (13.0-17.5) Hematocrit 26.4 % (39.0-53.0) Mean Corpuscular Volume 97 fL (79-100) Mean Corpuscular Hemoglobin 32 pg (25-35) Mean Corpuscular Hemoglobin Concent 33 g/dL (31-37) Red Cell Distribution Width 15.8 % (11.5-14.5) Platelet Count 181 x10^3/uL (140-400) Sodium Level 136 mmol/L (136-145) Potassium Level 3.4 mmol/L (3.5-5.1) Chloride Level 99 mmol/L (98-107) Carbon Dioxide Level 31 mmol/L (21-32) Anion Gap 6 (6-14) Blood Urea Nitrogen 21 mg/dL (8-26) Creatinine 0.8 mg/dL (0.7-1.3) Estimated GFR (Cockcroft-Gault) 94.0 Glucose Level 95 mg/dL (70-99) Calcium Level 7.9 mg/dL (8.5-10.1) Laboratory Tests Test 11/24/18 16:53 11/24/18 20:49 11/25/18 07:02 11/25/18 10:45 Glucose (Fingerstick) 102 mg/dL (70-99) 81 mg/dL (70-99) 101 mg/dL (70-99) White Blood Count 11.3 x10^3/uL (4.0-11.0) Red Blood Count 2.72 x10^6/uL (4.30-5.70) Hemoglobin 8.6 g/dL (13.0-17.5) Hematocrit 26.4 % (39.0-53.0) Mean Corpuscular Volume 97 fL (79-100) Mean Corpuscular Hemoglobin 32 pg (25-35) Mean Corpuscular Hemoglobin Concent 33 g/dL (31-37) Red Cell Distribution Width 15.8 % (11.5-14.5) Platelet Count 181 x10^3/uL (140-400) Sodium Level 136 mmol/L (136-145) Potassium Level 3.4 mmol/L (3.5-5.1) Chloride Level 99 mmol/L (98-107) Carbon Dioxide Level 31 mmol/L (21-32) Anion Gap 6 (6-14) Blood Urea Nitrogen 21 mg/dL (8-26) Creatinine 0.8 mg/dL (0.7-1.3) Estimated GFR (Cockcroft-Gault) 94.0 Glucose Level 95 mg/dL (70-99) Calcium Level 7.9 mg/dL (8.5-10.1) Test 11/25/18 10:55 Glucose (Fingerstick) 93 mg/dL (70-99) Microbiology 11/24/18 Blood Culture - Final, Complete Medications Current Medications Fentanyl Citrate (Fentanyl 2ml Vial) 50 mcg 1X ONCE IV Last administered on 11/24/18at 03:45; Start 11/24/18 at 03:15; Stop 11/24/18 at 03:18; Status DC Sodium Chloride 1,000 ml @ 1,000 mls/hr 1X ONCE IV Last administered on 11/24/18at 03:45; Start 11/24/18 at 03:15; Stop 11/24/18 at 04:14; Status DC Ondansetron HCl (Zofran) 4 mg 1X ONCE IV Last administered on 11/24/18at 03:45; Start 11/24/18 at 03:15; Stop 11/24/18 at 03:18; Status DC Iohexol (Omnipaque 300 Mg/ml) 75 ml 1X ONCE IV Last administered on 11/24/18at 04:30; Start 11/24/18 at 03:45; Stop 11/24/18 at 03:46; Status DC Info (CONTRAST GIVEN -- Rx MONITORING) 1 each PRN DAILY PRN MC SEE COMMENTS; Start 11/24/18 at 03:45; Stop 11/26/18 at 03:44 Benzocaine (Hurricaine One) 1 spray 1X ONCE MM ; Start 11/24/18 at 05:15; Stop 11/24/18 at 05:16; Status DC Morphine Sulfate (Morphine Sulfate) 4 mg 1X ONCE IV Last administered on at 06:03; Start 11/24/18 at 06:00; Stop 11/24/18 at 06:01; Status DC Sodium Chloride 1,000 ml @ 1,000 mls/hr 1X ONCE IV Last administered on 11/24/18at 06:03; Start 11/24/18 at 06:00; Stop 11/24/18 at 06:59; Status DC Morphine Sulfate (Morphine Sulfate) 4 mg PRN Q2HR PRN IV PAIN Last administered on 11/25/18at 08:34; Start 11/24/18 at 06:00 Sodium Chloride 1,000 ml @ 125 mls/hr 1X ONCE IV Last administered on 11/24/18at 08:10; Start 11/24/18 at 06:00; Stop 11/24/18 at 13:59; Status DC Ondansetron HCl (Zofran) 4 mg PRN Q6HRS PRN IV NAUSEA/VOMITING; Start 11/24/18 at 06:00 Piperacillin Sod/ Tazobactam Sod (Zosyn Per Pharmacy) 1 each PRN DAILY PRN MC SEE COMMENTS; Start 11/24/18 at 06:00 Piperacillin Sod/ Tazobactam Sod 3.375 gm/Sodium Chloride 50 ml @ 100 mls/hr 1X ONCE IV Last administered on 11/24/18at 06:53; Start 11/24/18 at 06:15; Stop 11/24/18 at 06:44; Status DC Piperacillin Sod/ Tazobactam Sod 3.375 gm/Sodium Chloride 50 ml @ 100 mls/hr Q6HRS IV Last administered on 11/25/18at 08:58; Start 11/24/18 at 12:00 Pantoprazole Sodium (PROTONIX VIAL for IV PUSH) 40 mg DAILYAC IVP Last administered on 11/25/18at 09:04; Start 11/24/18 at 11:30; Stop 11/25/18 at 11:36; Status DC Insulin Human Lispro (HumaLOG) 0-5 UNITS TIDWMEALS SQ ; Start 11/24/18 at 12:00 Dextrose (Dextrose 50%-Water Syringe) 12.5 gm PRN Q15MIN PRN IV SEE COMMENTS; Start 11/24/18 at 09:45 Amino Acids/ Glycerin/ Electrolytes 1,000 ml @ 80 mls/hr [id number] IV Last administered on 11/25/18at 01:38; Start 11/24/18 at 09:45 Budesonide (Pulmicort) 0.5 mg RTBID NEB Last administered on 11/25/18at 08:01; Start 11/24/18 at 10:00 Albuterol/ Ipratropium (Duoneb) 3 ml RTQID NEB Last administered on 11/25/18at 11:38; Start 11/24/18 at 12:00 Furosemide (Lasix) 40 mg 1X ONCE IVP Last administered on 11/25/18at 04:44; Start 11/25/18 at 05:00; Stop 11/25/18 at 05:01; Status DC Albuterol Sulfate (Ventolin Neb Soln) 2.5 mg PRN Q6HRS PRN NEB SHORTNESS OF BREATH Last administered on 11/25/18at 04:50; Start 11/25/18 at 04:45 Pantoprazole Sodium (PROTONIX VIAL for IV PUSH) 40 mg BIDAC IVP ; Start 11/25/18 at 16:30 Potassium Chloride/Water 100 ml @ 100 mls/hr Q1H IV ; Start 11/25/18 at 13:00; Stop 11/25/18 at 16:59 Active Scripts Active Sertraline Hcl 25 Mg Tablet 50 Mg PO QHS 30 Days Magnesium Chloride 70 Mg Tablet.dr 64 Mg PO DAILY 30 Days Synthroid (Levothyroxine Sodium) 88 Mcg Tablet 88 Mcg PO DAILY06 30 Days Prednisone 20 Mg Tablet 20 Mg PO DAILY 30 Days Budesonide 0.5 Mg/2 Ml Ampul.neb 0.5 Mg NEB RTBID 30 Days Klor-Con 10 (Potassium Chloride) 10 Meq Tablet.er 1 Tab PO DAILY Lasix (Furosemide) 40 Mg Tablet 1 Tab PO DAILY Aspirin Ec (Aspirin) 81 Mg Tablet.dr 81 Mg PO DAILYWBKFT 30 Days Duoneb 0.5-3(2.5) Mg/3 Ml (Albuterol/Ipratropium) 3 Ml Ampul.neb 3 Ml NEB RTQID 30 Days Diltiazem 24HR Cd (Diltiazem Hcl) 120 Mg Cap.er.24h 120 Mg PO DAILY 30 Days Reported Hydrocodone-Apap 7.5-325 (Hydrocodone Bit/Acetaminophen) 1 Tab Tablet 1 Tab PO PRN Q6HRS PRN Omeprazole 40 Mg Capsule.dr 40 Mg PO DAILY Vitals/I & O Vital Sign - Last 24 Hours 11/24/18 11/24/18 11/24/18 11/24/18 14:18 15:19 16:32 16:58 Temp 97.8 97.8 Pulse 83 Resp 18 18 B/P (MAP) 100/61 (74) Pulse Ox 88 96 96 O2 Delivery Nasal Cannula Nasal Cannula Nasal Cannula O2 Flow Rate 1.0 1.0 2.0 11/24/18 11/24/18 11/24/18 11/24/18 19:37 19:54 20:00 21:29 Temp 99.3 99.3 Pulse 98 Resp 16 16 B/P (MAP) 137/83 (101) Pulse Ox 99 97 97 O2 Delivery Nasal Cannula Nasal Cannula Nasal Cannula Nasal Cannula O2 Flow Rate 2.0 1.0 1.5 1.0 11/24/18 11/25/18 11/25/18 11/25/18 23:43 02:52 03:00 03:31 Temp 97.3 97.9 97.3 97.9 Pulse 99 101 Resp 16 15 16 17 B/P (MAP) 130/74 (92) 107/66 (80) Pulse Ox 90 90 91 90 O2 Delivery Nasal Cannula Nasal Cannula Nasal Cannula Nasal Cannula O2 Flow Rate 1.0 2.0 2.0 2.0 11/25/18 11/25/18 11/25/18 11/25/18 04:50 06:01 07:05 07:53 Temp 98.3 98.3 Pulse 94 Resp 20 B/P (MAP) 109/66 (80) Pulse Ox 93 88 O2 Delivery Nasal Cannula Nasal Cannula Nasal Cannula Nasal Cannula O2 Flow Rate 2.0 2.0 1.0 1.0 11/25/18 11/25/18 11/25/18 08:34 11:05 11:47 Temp 98.8 98.8 Pulse 104 Resp 22 B/P (MAP) 123/68 (86) Pulse Ox 93 98 O2 Delivery Nasal Cannula Nasal Cannula Nasal Cannula O2 Flow Rate 1.5 3.0 3.0 Intake and Output 11/24/18 11/24/18 11/25/18 15:00 23:00 07:00 Intake Total 0 ml 0 ml 0 ml Output Total 375 ml 450 ml 1525 ml Balance -375 ml -450 ml -1525 ml Nutrition Consultation Dietary Evaluation: Recommendations by RD: PPN/TPN Comments: continue PPN for short term nutrition Expected Outcomes/Goals: diet adv/ tolerance Malnutrition Findings: Body Fat Depletion (Non Severe: Mild Depletion Weight Status: Underweight LOURDES POLLOCK MD Nov 25, 2018 12:23
[2018-11-25] MEDS: POTASSIUM CHLORIDE 10MEQ 100 ML IV SCH ×4 (12:49→16:26)
[2018-11-25 15:00] VITALS: BP 95/55
[2018-11-25 15:11] LABS: BILIRUBIN,URINE NEGATIVE (NEG); CLARITY,URINE CLEAR; COLOR,URINE YELLOW; NITRITE,URINE NEGATIVE (NEG); PH,URINE 6.5; PROTEIN,URINE NEGATIVE (NEG-TRACE); UROBILINOGEN,URINE 0.2 mg/dL (0.2 mg/dL)
[2018-11-25 15:22] LABS: RBC,URINE OCC /HPF (0-2)
[2018-11-25 15:23] LABS: BACTERIA,URINE 0 /HPF (0-FEW); SQUAMOUS EPITHELIAL CELL,UR OCC /LPF; WBC,URINE OCC /HPF (0-4)
--- NOTE | 2018-11-25 17:50 | RAD ---
CHEST AP ONLY Clinical Indication: CHF Comparison: AP chest, earlier same day. Findings: Enteric tube tip is in the proximal stomach, unchanged. Atherosclerotic thoracic aorta. Cardiac size is stable. Diffusely increased interstitial markings are unchanged. There are more confluent right perihilar and left basilar opacities. There are small bilateral pleural effusions. There is no pneumothorax. IMPRESSION: 1. Unchanged interstitial edema. 2. Small bilateral pleural effusions. 3. Right perihilar and left basilar airspace disease is mildly worse. Electronically signed by: Simone Pittman MD (11/25/2018 5:47 PM) [id number]
[2018-11-25 19:30] VITALS: BP 106/66
[2018-11-25 23:25] VITALS: BP 104/52
--- NOTE | 2018-11-26 00:28 | NUR ---
Patient experiencing shortness of breath with O2 saturations ranging from 87-92% on 3L. RT paged for PRN breathing treatment and operational intelligence officer physician was paged, order received for 20mg IV lasix x1. Will continue to monitor and intervene as appropriate.
[2018-11-26] MEDS: ALBUTEROL SULFATE 2.5 MG/3 ML NEBU. NEB PRN (00:35)
[2018-11-26] MEDS: MORPHINE SULFATE 4 MG/ML VIAL. IV PRN ×7 (00:38→20:04)
[2018-11-26] MEDS ORDERED: FUROSEMIDE 20 MG/2 ML VIAL. IVP ONE (01:00)
[2018-11-26 03:25] VITALS: BP 139/72
--- NOTE | 2018-11-26 04:00 | NUR ---
Patient having difficulty voiding and was bladder scanned with approximately 700ml. Straight cathed with an output of 650ml.
[2018-11-26] MEDS: AMINO AC 3%/ELECTROLYTE/GLYCER 1,000 ML IV SCH ×2 (05:39→18:52)
[2018-11-26] MEDS: PANTOPRAZOLE IV PUSH 40 MG VIAL. IVP SCH ×2 (06:04→16:30)
[2018-11-26] MEDS: PIPERACILLIN/TAZOBACTAM 3.375 GM in IV NORMAL SALINE 50ML 50 ML IV SCH ×4 (06:04→22:57)
[2018-11-26] MEDS: IPRATRPIUM/ALBUTEROL 0.5/2.5MG 3 ML NEBU. NEB SCH ×4 (07:18→20:06)
[2018-11-26] MEDS: BUDESONIDE 0.5 MG/2 ML NEBU. NEB SCH ×2 (07:18→20:06)
[2018-11-26 07:30] VITALS: BP 111/70
[2018-11-26] MEDS: INSULIN LISPRO 300 UNITS/3 ML INSULN.PEN. SQ SCH ×3 (08:00→17:00)
[2018-11-26 08:48] LABS: HEMATOCRIT 27.7 % (39.0-53.0); HEMOGLOBIN 9.1 g/dL (13.0-17.5); RED BLOOD COUNT 2.87 x10^6/uL (4.30-5.70); RED CELL DISTRIBUTION WIDTH 15.5 % (11.5-14.5); WHITE BLOOD COUNT 9.2 x10^3/uL (4.0-11.0)
--- NOTE | 2018-11-26 08:54 | PDOC ---
Infectious Disease Note Vital Sign Vital Signs Vital Signs Date Time Temp Pulse Resp B/P (MAP) Pulse Ox O2 Delivery O2 Flow Rate FiO2 11/26/18 07:30 98.1 91 14 111/70 (84) 92 Nasal Cannula 3.0 98.1 Labs Lab Laboratory Tests Test 11/25/18 10:45 11/25/18 10:55 11/25/18 15:00 11/25/18 16:43 White Blood Count 11.3 x10^3/uL (4.0-11.0) Red Blood Count 2.72 x10^6/uL (4.30-5.70) Hemoglobin 8.6 g/dL (13.0-17.5) Hematocrit 26.4 % (39.0-53.0) Mean Corpuscular Volume 97 fL (79-100) Mean Corpuscular Hemoglobin 32 pg (25-35) Mean Corpuscular Hemoglobin Concent 33 g/dL (31-37) Red Cell Distribution Width 15.8 % (11.5-14.5) Platelet Count 181 x10^3/uL (140-400) Sodium Level 136 mmol/L (136-145) Potassium Level 3.4 mmol/L (3.5-5.1) Chloride Level 99 mmol/L (98-107) Carbon Dioxide Level 31 mmol/L (21-32) Anion Gap 6 (6-14) Blood Urea Nitrogen 21 mg/dL (8-26) Creatinine 0.8 mg/dL (0.7-1.3) Estimated GFR (Cockcroft-Gault) 94.0 Glucose Level 95 mg/dL (70-99) Calcium Level 7.9 mg/dL (8.5-10.1) Magnesium Level 2.1 mg/dL (1.8-2.4) Glucose (Fingerstick) 93 mg/dL (70-99) 84 mg/dL (70-99) Urine Collection Type Unknown Urine Color Yellow Urine Clarity Clear Urine pH 6.5 Urine Specific [place] 1.015 Urine Protein Negative mg/dL (NEG-TRACE) Urine Glucose (UA) Negative mg/dL (NEG) Urine Ketones (Stick) Negative mg/dL (NEG) Urine Blood Negative (NEG) Urine Nitrite Negative (NEG) Urine Bilirubin Negative (NEG) Urine Urobilinogen Dipstick 0.2 mg/dL (0.2 mg/dL) Urine Leukocyte Esterase Negative (NEG) Urine RBC Occ /HPF (0-2) Urine WBC Occ /HPF (0-4) Urine Squamous Epithelial Cells Occ /LPF Urine Bacteria 0 /HPF (0-FEW) Urine Mucus Slight /LPF Test 11/25/18 21:08 11/26/18 07:31 Glucose (Fingerstick) 79 mg/dL (70-99) 76 mg/dL (70-99) Micro CXR 11/25 IMPRESSION: 1. Unchanged interstitial edema. 2. Small bilateral pleural effusions. 3. Right perihilar and left basilar airspace disease is mildly worse. Microbiology 11/24/18 Blood Culture - Final, Complete Objective Assessment Bactermia 11/24 - 08/06 bottles probable anaerobe could be contamination vs true given SBO SBO Leukocytosis - better ? thrush AFib Plan Plan of Care Cont Zosyn F/u labs and cults Oral care - d/w nursing Micafungin Thank you # [id number] PATEL PRAKASH MD Nov 26, 2018 08:54
--- NOTE | 2018-11-26 09:06 | PDOC ---
PROGRESS NOTES Subjective Subjective Patient passing gas still has congestion with trouble breathing CXR yesterday shows continued CHF. Objective Objective Vital Signs Date Time Temp Pulse Resp B/P (MAP) Pulse Ox O2 Delivery O2 Flow Rate FiO2 11/26/18 08:40 18 Nasal Cannula 2.0 11/26/18 07:30 98.1 91 111/70 (84) 92 98.1 Intake and Output 11/26/18 06:59 Intake Total 100 ml Output Total 2200 ml Balance -2100 ml Intake Oral 0 ml IV Total 100 ml Output Urine Total 2200 ml # Voids 2 Physical Exam Abdomen: Other (minimal BS) Heart: Regular rate Extremities: Other (2+ edema Legs) General: Alert Lungs: Other (course crackle bases) Assessment Assessment Problems Medical Problems: (1) Pneumonia Status: Acute CHF + blood Clx SBO esophagitis possible GI bleed aspiration pneumonia anemia hyperglycemia CAD old compression fractures of spine contusion left eye from recent fall Hx of afib Pulm Fibrosis Severe protein malnutrition Plan Plan of Care Alb followed by lasix check CXR and labs in am proceed with PT/OT efforts continue surg care Comment Review of Relevant I have reviewed the following items sherine (where applicable) has been applied. Labs Laboratory Tests Test 11/24/18 11:59 11/24/18 16:53 11/24/18 20:49 11/25/18 07:02 Glucose (Fingerstick) 87 mg/dL (70-99) 102 mg/dL (70-99) 81 mg/dL (70-99) 101 mg/dL (70-99) Test 11/25/18 10:45 11/25/18 10:55 11/25/18 15:00 11/25/18 16:43 White Blood Count 11.3 x10^3/uL (4.0-11.0) Red Blood Count 2.72 x10^6/uL (4.30-5.70) Hemoglobin 8.6 g/dL (13.0-17.5) Hematocrit 26.4 % (39.0-53.0) Mean Corpuscular Volume 97 fL (79-100) Mean Corpuscular Hemoglobin 32 pg (25-35) Mean Corpuscular Hemoglobin Concent 33 g/dL (31-37) Red Cell Distribution Width 15.8 % (11.5-14.5) Platelet Count 181 x10^3/uL (140-400) Sodium Level 136 mmol/L (136-145) Potassium Level 3.4 mmol/L (3.5-5.1) Chloride Level 99 mmol/L (98-107) Carbon Dioxide Level 31 mmol/L (21-32) Anion Gap 6 (6-14) Blood Urea Nitrogen 21 mg/dL (8-26) Creatinine 0.8 mg/dL (0.7-1.3) Estimated GFR (Cockcroft-Gault) 94.0 Glucose Level 95 mg/dL (70-99) Calcium Level 7.9 mg/dL (8.5-10.1) Magnesium Level 2.1 mg/dL (1.8-2.4) Glucose (Fingerstick) 93 mg/dL (70-99) 84 mg/dL (70-99) Urine Collection Type Unknown Urine Color Yellow Urine Clarity Clear Urine pH 6.5 Urine Specific [place] 1.015 Urine Protein Negative mg/dL (NEG-TRACE) Urine Glucose (UA) Negative mg/dL (NEG) Urine Ketones (Stick) Negative mg/dL (NEG) Urine Blood Negative (NEG) Urine Nitrite Negative (NEG) Urine Bilirubin Negative (NEG) Urine Urobilinogen Dipstick 0.2 mg/dL (0.2 mg/dL) Urine Leukocyte Esterase Negative (NEG) Urine RBC Occ /HPF (0-2) Urine WBC Occ /HPF (0-4) Urine Squamous Epithelial Cells Occ /LPF Urine Bacteria 0 /HPF (0-FEW) Urine Mucus Slight /LPF Test 11/25/18 21:08 11/26/18 07:31 11/26/18 08:04 Glucose (Fingerstick) 79 mg/dL (70-99) 76 mg/dL (70-99) White Blood Count 9.2 x10^3/uL (4.0-11.0) Red Blood Count 2.87 x10^6/uL (4.30-5.70) Hemoglobin 9.1 g/dL (13.0-17.5) Hematocrit 27.7 % (39.0-53.0) Mean Corpuscular Volume 97 fL (79-100) Mean Corpuscular Hemoglobin 32 pg (25-35) Mean Corpuscular Hemoglobin Concent 33 g/dL (31-37) Red Cell Distribution Width 15.5 % (11.5-14.5) Platelet Count 190 x10^3/uL (140-400) Laboratory Tests Test 11/25/18 10:45 11/25/18 10:55 11/25/18 15:00 11/25/18 16:43 White Blood Count 11.3 x10^3/uL (4.0-11.0) Red Blood Count 2.72 x10^6/uL (4.30-5.70) Hemoglobin 8.6 g/dL (13.0-17.5) Hematocrit 26.4 % (39.0-53.0) Mean Corpuscular Volume 97 fL (79-100) Mean Corpuscular Hemoglobin 32 pg (25-35) Mean Corpuscular Hemoglobin Concent 33 g/dL (31-37) Red Cell Distribution Width 15.8 % (11.5-14.5) Platelet Count 181 x10^3/uL (140-400) Sodium Level 136 mmol/L (136-145) Potassium Level 3.4 mmol/L (3.5-5.1) Chloride Level 99 mmol/L (98-107) Carbon Dioxide Level 31 mmol/L (21-32) Anion Gap 6 (6-14) Blood Urea Nitrogen 21 mg/dL (8-26) Creatinine 0.8 mg/dL (0.7-1.3) Estimated GFR (Cockcroft-Gault) 94.0 Glucose Level 95 mg/dL (70-99) Calcium Level 7.9 mg/dL (8.5-10.1) Magnesium Level 2.1 mg/dL (1.8-2.4) Glucose (Fingerstick) 93 mg/dL (70-99) 84 mg/dL (70-99) Urine Collection Type Unknown Urine Color Yellow Urine Clarity Clear Urine pH 6.5 Urine Specific [place] 1.015 Urine Protein Negative mg/dL (NEG-TRACE) Urine Glucose (UA) Negative mg/dL (NEG) Urine Ketones (Stick) Negative mg/dL (NEG) Urine Blood Negative (NEG) Urine Nitrite Negative (NEG) Urine Bilirubin Negative (NEG) Urine Urobilinogen Dipstick 0.2 mg/dL (0.2 mg/dL) Urine Leukocyte Esterase Negative (NEG) Urine RBC Occ /HPF (0-2) Urine WBC Occ /HPF (0-4) Urine Squamous Epithelial Cells Occ /LPF Urine Bacteria 0 /HPF (0-FEW) Urine Mucus Slight /LPF Test 11/25/18 21:08 11/26/18 07:31 11/26/18 08:04 Glucose (Fingerstick) 79 mg/dL (70-99) 76 mg/dL (70-99) White Blood Count 9.2 x10^3/uL (4.0-11.0) Red Blood Count 2.87 x10^6/uL (4.30-5.70) Hemoglobin 9.1 g/dL (13.0-17.5) Hematocrit 27.7 % (39.0-53.0) Mean Corpuscular Volume 97 fL (79-100) Mean Corpuscular Hemoglobin 32 pg (25-35) Mean Corpuscular Hemoglobin Concent 33 g/dL (31-37) Red Cell Distribution Width 15.5 % (11.5-14.5) Platelet Count 190 x10^3/uL (140-400) Microbiology 11/24/18 Blood Culture - Final, Complete Medications Current Medications Fentanyl Citrate (Fentanyl 2ml Vial) 50 mcg 1X ONCE IV Last administered on 11/24/18at 03:45; Start 11/24/18 at 03:15; Stop 11/24/18 at 03:18; Status DC Sodium Chloride 1,000 ml @ 1,000 mls/hr 1X ONCE IV Last administered on 11/24/18at 03:45; Start 11/24/18 at 03:15; Stop 11/24/18 at 04:14; Status DC Ondansetron HCl (Zofran) 4 mg 1X ONCE IV Last administered on 11/24/18at 03:45; Start 11/24/18 at 03:15; Stop 11/24/18 at 03:18; Status DC Iohexol (Omnipaque 300 Mg/ml) 75 ml 1X ONCE IV Last administered on 11/24/18at 04:30; Start 11/24/18 at 03:45; Stop 11/24/18 at 03:46; Status DC Info (CONTRAST GIVEN -- Rx MONITORING) 1 each PRN DAILY PRN MC SEE COMMENTS; Start 11/24/18 at 03:45; Stop 11/26/18 at 03:44; Status DC Benzocaine (Hurricaine One) 1 spray 1X ONCE MM ; Start 11/24/18 at 05:15; Stop 11/24/18 at 05:16; Status DC Morphine Sulfate (Morphine Sulfate) 4 mg 1X ONCE IV Last administered on 11/24at 06:03; Start 11/24/18 at 06:00; Stop 11/24/18 at 06:01; Status DC Sodium Chloride 1,000 ml @ 1,000 mls/hr 1X ONCE IV Last administered on 11/24/18at 06:03; Start 11/24/18 at 06:00; Stop 11/24/18 at 06:59; Status DC Morphine Sulfate (Morphine Sulfate) 4 mg PRN Q2HR PRN IV PAIN Last administered on 11/26/18at 08:40; Start 11/24/18 at 06:00 Sodium Chloride 1,000 ml @ 125 mls/hr 1X ONCE IV Last administered on 11/24/18at 08:10; Start 11/24/18 at 06:00; Stop 11/24/18 at 13:59; Status DC Ondansetron HCl (Zofran) 4 mg PRN Q6HRS PRN IV NAUSEA/VOMITING; Start 11/24/18 at 06:00 Piperacillin Sod/ Tazobactam Sod (Zosyn Per Pharmacy) 1 each PRN DAILY PRN MC SEE COMMENTS; Start 11/24/18 at 06:00 Piperacillin Sod/ Tazobactam Sod 3.375 gm/Sodium Chloride 50 ml @ 100 mls/hr 1X ONCE IV Last administered on 11/24/18at 06:53; Start 11/24/18 at 06:15; Stop 11/24/18 at 06:44; Status DC Piperacillin Sod/ Tazobactam Sod 3.375 gm/Sodium Chloride 50 ml @ 100 mls/hr Q6HRS IV Last administered on 11/26/18at 06:04; Start 11/24/18 at 12:00 Pantoprazole Sodium (PROTONIX VIAL for IV PUSH) 40 mg DAILYAC IVP Last administered on 11/25/18at 09:04; Start 11/24/18 at 11:30; Stop 11/25/18 at 11:36; Status DC Insulin Human Lispro (HumaLOG) 0-5 UNITS TIDWMEALS SQ ; Start 11/24/18 at 12:00 Dextrose (Dextrose 50%-Water Syringe) 12.5 gm PRN Q15MIN PRN IV SEE COMMENTS; Start 11/24/18 at 09:45 Amino Acids/ Glycerin/ Electrolytes 1,000 ml @ 50 mls/hr Q20H IV Last administered on 11/25/18at 18:10; Start 11/24/18 at 09:45 Budesonide (Pulmicort) 0.5 mg RTBID NEB Last administered on 11/26/18at 07:18; Start 11/24/18 at 10:00 Albuterol/ Ipratropium (Duoneb) 3 ml RTQID NEB Last administered on 11/26/18at 07:18; Start 11/24/18 at 12:00 Furosemide (Lasix) 40 mg 1X ONCE IVP Last administered on 11/25/18at 04:44; Start 11/25/18 at 05:00; Stop 11/25/18 at 05:01; Status DC Albuterol Sulfate (Ventolin Neb Soln) 2.5 mg PRN Q6HRS PRN NEB SHORTNESS OF BREATH Last administered on 11/26/18at 00:35; Start 11/25/18 at 04:45 Pantoprazole Sodium (PROTONIX VIAL for IV PUSH) 40 mg BIDAC IVP Last administered on 11/26/18at 06:04; Start 11/25/18 at 16:30 Potassium Chloride/Water 100 ml @ 100 mls/hr Q1H IV Last administered on 11/25/18at 16:26; Start 11/25/18 at 13:00; Stop 11/25/18 at 16:59; Status DC Furosemide (Lasix) 20 mg 1X ONCE IVP Last administered on 11/26/18at 00:34; Start 11/26/18 at 01:00; Stop 11/26/18 at 01:01; Status DC Micafungin Sodium 100 mg/Dextrose 100 ml @ 100 mls/hr Q24H IV ; Start 11/26/18 at 09:00 Furosemide (Lasix) 40 mg 1X ONCE IVP ; Start 11/26/18 at 09:15; Stop 11/26/18 at 09:16 Active Scripts Active Sertraline Hcl 25 Mg Tablet 50 Mg PO QHS 30 Days Magnesium Chloride 70 Mg Tablet.dr 64 Mg PO DAILY 30 Days Synthroid (Levothyroxine Sodium) 88 Mcg Tablet 88 Mcg PO DAILY06 30 Days Prednisone 20 Mg Tablet 20 Mg PO DAILY 30 Days Budesonide 0.5 Mg/2 Ml Ampul.neb 0.5 Mg NEB RTBID 30 Days Klor-Con 10 (Potassium Chloride) 10 Meq Tablet.er 1 Tab PO DAILY Lasix (Furosemide) 40 Mg Tablet 1 Tab PO DAILY Aspirin Ec (Aspirin) 81 Mg Tablet.dr 81 Mg PO DAILYWBKFT 30 Days Duoneb 0.5-3(2.5) Mg/3 Ml (Albuterol/Ipratropium) 3 Ml Ampul.neb 3 Ml NEB RTQID 30 Days Diltiazem 24HR Cd (Diltiazem Hcl) 120 Mg Cap.er.24h 120 Mg PO DAILY 30 Days Reported Hydrocodone-Apap 7.5-325 (Hydrocodone Bit/Acetaminophen) 1 Tab Tablet 1 Tab PO PRN Q6HRS PRN Omeprazole 40 Mg Capsule.dr 40 Mg PO DAILY Vitals/I & O Vital Sign - Last 24 Hours 11/25/18 11/25/18 11/25/18 11/25/18 11:05 11:47 12:42 15:00 Temp 98.8 98.7 98.8 98.7 Pulse 104 93 Resp 22 20 B/P (MAP) 123/68 (86) 95/55 (68) Pulse Ox 93 98 97 O2 Delivery Nasal Cannula Nasal Cannula Nasal Cannula Nasal Cannula O2 Flow Rate 3.0 3.0 3.0 3.0 11/25/18 11/25/18 11/25/18 11/25/18 15:34 15:35 18:11 19:30 Temp 99.0 99.0 Pulse 99 Resp 20 B/P (MAP) 106/66 (79) Pulse Ox 5 O2 Delivery Nasal Cannula Nasal Cannula Nasal Cannula Nasal Cannula O2 Flow Rate 3.0 3.0 3.0 11/25/18 11/25/18 11/25/18 11/25/18 19:44 20:00 20:10 23:25 Temp 99.0 99.0 Pulse 86 Resp 18 B/P (MAP) 104/52 (69) Pulse Ox 5 93 91 O2 Delivery Nasal Cannula Nasal Cannula Nasal Cannula Nasal Cannula O2 Flow Rate 3.0 3.0 3.0 3.0 4/26/19 4/26/19 4/26/19 4/26/19 00:34 00:38 03:06 03:25 Temp 98.5 98.5 Pulse 93 Resp 24 18 B/P (MAP) 139/72 (94) Pulse Ox 93 O2 Delivery Nasal Cannula Nasal Cannula Nasal Cannula Nasal Cannula O2 Flow Rate 3.0 3.0 3.0 11/26/18 11/26/18 11/26/18 11/26/18 06:04 07:19 07:30 08:40 Temp 98.1 98.1 Pulse 91 Resp 18 B/P (MAP) 111/70 (84) Pulse Ox 92 O2 Delivery Nasal Cannula Nasal Cannula Nasal Cannula Nasal Cannula O2 Flow Rate 3.0 3.0 2.0 Intake and Output 11/25/18 11/25/18 11/26/18 14:59 22:59 06:59 Intake Total 0 ml 50 ml 50 ml Output Total 450 ml 750 ml 1000 ml Balance -450 ml -700 ml -950 ml Nutrition Consultation Dietary Evaluation: Recommendations by RD: PPN/TPN Comments: continue PPN for short term nutrition Expected Outcomes/Goals: diet adv/ tolerance Malnutrition Findings: Body Fat Depletion (Non Severe: Mild Depletion Weight Status: Underweight LOURDES POLLOCK MD Nov 26, 2018 09:06
[2018-11-26 09:09] LABS: CALCIUM 8.4 mg/dL (8.5-10.1); CREATININE 0.7 mg/dL (0.7-1.3); GFR 109.6; POTASSIUM 3.5 mmol/L (3.5-5.1)
[2018-11-26] MEDS ORDERED: FUROSEMIDE 40 MG/4 ML VIAL. IVP ONE (09:15)
[2018-11-26] MEDS ORDERED: ALBUMIN HUMAN 25% 100 ML IV ONE (09:15)
--- NOTE | 2018-11-26 09:39 | PDOC ---
Subjective: Subjective: Using urinal - "I just leave it there because I'm on Lasix." Might be less distended, has some pain, has been passing flatus. Needs to cough. Objective: Objective: Reviewed chart - straight cath last night. NG output not charted. Vital Signs: Vital Signs Date Time Temp Pulse Resp B/P (MAP) Pulse Ox O2 Delivery O2 Flow Rate FiO2 11/26/18 08:40 18 Nasal Cannula 2.0 11/26/18 07:30 98.1 91 111/70 (84) 92 98.1 Labs: Laboratory Tests Test 11/25/18 10:45 11/25/18 10:55 11/25/18 15:00 11/25/18 16:43 White Blood Count 11.3 x10^3/uL Red Blood Count 2.72 x10^6/uL Hemoglobin 8.6 g/dL Hematocrit 26.4 % Mean Corpuscular Volume 97 fL Mean Corpuscular Hemoglobin 32 pg Mean Corpuscular Hemoglobin Concent 33 g/dL Red Cell Distribution Width 15.8 % Platelet Count 181 x10^3/uL Sodium Level 136 mmol/L Potassium Level 3.4 mmol/L Chloride Level 99 mmol/L Carbon Dioxide Level 31 mmol/L Anion Gap 6 Blood Urea Nitrogen 21 mg/dL Creatinine 0.8 mg/dL Estimated GFR (Cockcroft-Gault) 94.0 Glucose Level 95 mg/dL Calcium Level 7.9 mg/dL Magnesium Level 2.1 mg/dL Glucose (Fingerstick) 93 mg/dL 84 mg/dL Urine Collection Type Unknown Urine Color Yellow Urine Clarity Clear Urine pH 6.5 Urine Specific [place] 1.015 Urine Protein Negative mg/dL Urine Glucose (UA) Negative mg/dL Urine Ketones (Stick) Negative mg/dL Urine Blood Negative Urine Nitrite Negative Urine Bilirubin Negative Urine Urobilinogen Dipstick 0.2 mg/dL Urine Leukocyte Esterase Negative Urine RBC Occ /HPF Urine WBC Occ /HPF Urine Squamous Epithelial Cells Occ /LPF Urine Bacteria 0 /HPF Urine Mucus Slight /LPF Test 11/25/18 21:08 11/26/18 07:31 11/26/18 08:04 Glucose (Fingerstick) 79 mg/dL 76 mg/dL White Blood Count 9.2 x10^3/uL Red Blood Count 2.87 x10^6/uL Hemoglobin 9.1 g/dL Hematocrit 27.7 % Mean Corpuscular Volume 97 fL Mean Corpuscular Hemoglobin 32 pg Mean Corpuscular Hemoglobin Concent 33 g/dL Red Cell Distribution Width 15.5 % Platelet Count 190 x10^3/uL Sodium Level 134 mmol/L Potassium Level 3.5 mmol/L Chloride Level 97 mmol/L Carbon Dioxide Level 31 mmol/L Anion Gap 6 Blood Urea Nitrogen 18 mg/dL Creatinine 0.7 mg/dL Estimated GFR (Cockcroft-Gault) 109.6 Glucose Level 81 mg/dL Calcium Level 8.4 mg/dL BLOOD CULTURE Preliminary NO GROWTH AFTER 2 DAYS Imaging: CXR 11/25 IMPRESSION: 1. Unchanged interstitial edema. 2. Small bilateral pleural effusions. 3. Right perihilar and left basilar airspace disease is mildly worse. PE: GEN: looks weak LUNGS: NC, weak cough w/ gurgling HEART: RRR ABD: NG to suction - brown/green bile, less distended, soft NEURO/PSYCH: A & O 3 A/P: Recurrent SBO ACD - drift in Hgb from admission, stable/around baseline ?bacteremia, abnormal CXR, chronic lung disease -- Hgb stable, NG output bilious - continue PPI. NG per surgery. TIO ACEVEDO Nov 26, 2018 09:39
--- NOTE | 2018-11-26 09:45 | PDOC ---
REMBERTO WINSTON REMODELER 11/26/18 0945: SURGICAL PROGRESS NOTE Subjective some flatus distention he feels is about the same Vital Signs Vital Signs Date Time Temp Pulse Resp B/P (MAP) Pulse Ox O2 Delivery O2 Flow Rate FiO2 11/26/18 08:40 18 Nasal Cannula 2.0 11/26/18 07:30 98.1 91 111/70 (84) 92 98.1 I&O Intake and Output 11/26/18 06:59 Intake Total 100 ml Output Total 2200 ml Balance -2100 ml Intake Oral 0 ml IV Total 100 ml Output Urine Total 2200 ml # Voids 2 General: Alert, Cooperative HEENT: Other (ng present ) Abdomen: Soft, Other (distended ) Labs Laboratory Tests Test 11/24/18 11:59 11/24/18 16:53 11/24/18 20:49 11/25/18 07:02 Glucose (Fingerstick) 87 mg/dL (70-99) 102 mg/dL (70-99) 81 mg/dL (70-99) 101 mg/dL (70-99) Test 11/25/18 10:45 11/25/18 10:55 11/25/18 15:00 11/25/18 16:43 White Blood Count 11.3 x10^3/uL (4.0-11.0) Red Blood Count 2.72 x10^6/uL (4.30-5.70) Hemoglobin 8.6 g/dL (13.0-17.5) Hematocrit 26.4 % (39.0-53.0) Mean Corpuscular Volume 97 fL (79-100) Mean Corpuscular Hemoglobin 32 pg (25-35) Mean Corpuscular Hemoglobin Concent 33 g/dL (31-37) Red Cell Distribution Width 15.8 % (11.5-14.5) Platelet Count 181 x10^3/uL (140-400) Sodium Level 136 mmol/L (136-145) Potassium Level 3.4 mmol/L (3.5-5.1) Chloride Level 99 mmol/L (98-107) Carbon Dioxide Level 31 mmol/L (21-32) Anion Gap 6 (6-14) Blood Urea Nitrogen 21 mg/dL (8-26) Creatinine 0.8 mg/dL (0.7-1.3) Estimated GFR (Cockcroft-Gault) 94.0 Glucose Level 95 mg/dL (70-99) Calcium Level 7.9 mg/dL (8.5-10.1) Magnesium Level 2.1 mg/dL (1.8-2.4) Glucose (Fingerstick) 93 mg/dL (70-99) 84 mg/dL (70-99) Urine Collection Type Unknown Urine Color Yellow Urine Clarity Clear Urine pH 6.5 Urine Specific [place] 1.015 Urine Protein Negative mg/dL (NEG-TRACE) Urine Glucose (UA) Negative mg/dL (NEG) Urine Ketones (Stick) Negative mg/dL (NEG) Urine Blood Negative (NEG) Urine Nitrite Negative (NEG) Urine Bilirubin Negative (NEG) Urine Urobilinogen Dipstick 0.2 mg/dL (0.2 mg/dL) Urine Leukocyte Esterase Negative (NEG) Urine RBC Occ /HPF (0-2) Urine WBC Occ /HPF (0-4) Urine Squamous Epithelial Cells Occ /LPF Urine Bacteria 0 /HPF (0-FEW) Urine Mucus Slight /LPF Test 11/25/18 21:08 11/26/18 07:31 11/26/18 08:04 Glucose (Fingerstick) 79 mg/dL (70-99) 76 mg/dL (70-99) White Blood Count 9.2 x10^3/uL (4.0-11.0) Red Blood Count 2.87 x10^6/uL (4.30-5.70) Hemoglobin 9.1 g/dL (13.0-17.5) Hematocrit 27.7 % (39.0-53.0) Mean Corpuscular Volume 97 fL (79-100) Mean Corpuscular Hemoglobin 32 pg (25-35) Mean Corpuscular Hemoglobin Concent 33 g/dL (31-37) Red Cell Distribution Width 15.5 % (11.5-14.5) Platelet Count 190 x10^3/uL (140-400) Sodium Level 134 mmol/L (136-145) Potassium Level 3.5 mmol/L (3.5-5.1) Chloride Level 97 mmol/L (98-107) Carbon Dioxide Level 31 mmol/L (21-32) Anion Gap 6 (6-14) Blood Urea Nitrogen 18 mg/dL (8-26) Creatinine 0.7 mg/dL (0.7-1.3) Estimated GFR (Cockcroft-Gault) 109.6 Glucose Level 81 mg/dL (70-99) Calcium Level 8.4 mg/dL (8.5-10.1) Laboratory Tests Test 11/25/18 10:45 11/25/18 10:55 11/25/18 15:00 11/25/18 16:43 White Blood Count 11.3 x10^3/uL (4.0-11.0) Red Blood Count 2.72 x10^6/uL (4.30-5.70) Hemoglobin 8.6 g/dL (13.0-17.5) Hematocrit 26.4 % (39.0-53.0) Mean Corpuscular Volume 97 fL (79-100) Mean Corpuscular Hemoglobin 32 pg (25-35) Mean Corpuscular Hemoglobin Concent 33 g/dL (31-37) Red Cell Distribution Width 15.8 % (11.5-14.5) Platelet Count 181 x10^3/uL (140-400) Sodium Level 136 mmol/L (136-145) Potassium Level 3.4 mmol/L (3.5-5.1) Chloride Level 99 mmol/L (98-107) Carbon Dioxide Level 31 mmol/L (21-32) Anion Gap 6 (6-14) Blood Urea Nitrogen 21 mg/dL (8-26) Creatinine 0.8 mg/dL (0.7-1.3) Estimated GFR (Cockcroft-Gault) 94.0 Glucose Level 95 mg/dL (70-99) Calcium Level 7.9 mg/dL (8.5-10.1) Magnesium Level 2.1 mg/dL (1.8-2.4) Glucose (Fingerstick) 93 mg/dL (70-99) 84 mg/dL (70-99) Urine Collection Type Unknown Urine Color Yellow Urine Clarity Clear Urine pH 6.5 Urine Specific [place] 1.015 Urine Protein Negative mg/dL (NEG-TRACE) Urine Glucose (UA) Negative mg/dL (NEG) Urine Ketones (Stick) Negative mg/dL (NEG) Urine Blood Negative (NEG) Urine Nitrite Negative (NEG) Urine Bilirubin Negative (NEG) Urine Urobilinogen Dipstick 0.2 mg/dL (0.2 mg/dL) Urine Leukocyte Esterase Negative (NEG) Urine RBC Occ /HPF (0-2) Urine WBC Occ /HPF (0-4) Urine Squamous Epithelial Cells Occ /LPF Urine Bacteria 0 /HPF (0-FEW) Urine Mucus Slight /LPF Test 11/25/18 21:08 11/26/18 07:31 11/26/18 08:04 Glucose (Fingerstick) 79 mg/dL (70-99) 76 mg/dL (70-99) White Blood Count 9.2 x10^3/uL (4.0-11.0) Red Blood Count 2.87 x10^6/uL (4.30-5.70) Hemoglobin 9.1 g/dL (13.0-17.5) Hematocrit 27.7 % (39.0-53.0) Mean Corpuscular Volume 97 fL (79-100) Mean Corpuscular Hemoglobin 32 pg (25-35) Mean Corpuscular Hemoglobin Concent 33 g/dL (31-37) Red Cell Distribution Width 15.5 % (11.5-14.5) Platelet Count 190 x10^3/uL (140-400) Sodium Level 134 mmol/L (136-145) Potassium Level 3.5 mmol/L (3.5-5.1) Chloride Level 97 mmol/L (98-107) Carbon Dioxide Level 31 mmol/L (21-32) Anion Gap 6 (6-14) Blood Urea Nitrogen 18 mg/dL (8-26) Creatinine 0.7 mg/dL (0.7-1.3) Estimated GFR (Cockcroft-Gault) 109.6 Glucose Level 81 mg/dL (70-99) Calcium Level 8.4 mg/dL (8.5-10.1) Problem List Problems Medical Problems: (1) Pneumonia Status: Acute Assessment/Plan NG decompression xrays improved will review with SHAKEEL Martinez MD 11/26/18 1425: SURGICAL PROGRESS NOTE Assessment/Plan pt seen is rattly today, can't cough anything up tentatively on OR schedule for Thursday if medically optimized Dr Bone to follow over the weekend REMBERTO WINSTON APRN Nov 26, 2018 09:45 SHAKEEL SOMMER MD Nov 26, 2018 14:25
--- NOTE | 2018-11-26 11:12 | PDOC2 ---
JOSE HIGHTOWER SAFETY COMPLIANCE SPECIALIST 11/26/18 1112: CARDIAC CONSULT DATE OF CONSULT Date of Consult DATE: 11/26/18 TIME: 10:59 REASON FOR CONSULT Reason for Consult: CHF REFERRING PHYSICIAN Referring Physician: Dr. Garcia SOURCE Source: Chart review, Patient HISTORY OF PRESENT ILLNESS HISTORY OF PRESENT ILLNESS This is a 78 yo male, with a history of diastolic HF, PAFIB, and SBO, who presented secondary to worsening abdominal distention and coffee ground emesis. CXR with pulmonary edema, which prompted this consult. Patient mildly improved follow decompression with NGT. Patient does reports some shortness of breath, which has somewhat improved with diuresis. and cough productive of clear sputum. No chest pain, shortness of breath, dizziness, or diaphoresis. PAST MEDICAL HISTORY Past Medical History Cardiovascular: AFIB, HTN, Hyperlipidemia, Valve insufficiency, CHF, coronary calcifications per CTA Pulmonary: COPD, ILD, pneumonia GI: GERD, SBO Heme/Onc: Cancer (prostate) Hepatobiliary: No pertinent hx Psych: Depression Musculoskeletal: Osteoarthritis Rheumatologic: No pertinent hx Infectious disease: No pertinent hx ENT: No pertinent hx Renal/: Prostate Ca. Endocrine: Hypothyroidism Dermatology: No pertinent hx PAST SURGICAL HISTORY Past Surgical History Appendectomy, Other (prostatectomy ) FAMILY HISTORY Family History: Other (noncontributory ) SOCIAL HISTORY Social History Smoke: Quit ALCOHOL: occasional Drugs: None Lives: at for rehab CURRENT MEDICATIONS CURRENT MEDICATIONS Current Medications Medications (Trade) Dose Ordered Sig/Anjana Route PRN Reason Start Time Stop Time Status Last Admin Dose Admin Pantoprazole Sodium (PROTONIX VIAL for IV PUSH) 40 mg BIDAC IVP 11/25/18 16:30 11/26/18 06:04 Potassium Chloride/Water 100 ml @ 100 mls/hr Q1H IV 11/25/18 13:00 11/25/18 16:59 DC 11/25/18 16:26 Furosemide (Lasix) 20 mg 1X ONCE IVP 11/26/18 01:00 11/26/18 01:01 DC 11/26/18 00:34 Furosemide (Lasix) 40 mg 1X ONCE IVP 11/26/18 09:15 11/26/18 09:16 DC 11/26/18 10:33 Albumin Human 100 ml @ 100 mls/hr 1X ONCE IV 11/26/18 09:15 11/26/18 10:14 DC 11/26/18 10:34 ALLERGIES ALLERGIES: Coded Allergies: No Known Drug Allergies (Unverified , 09/14/18) ROS Review of System 14 point ROS conducted with pertinent positives noted above in HPI PHYSICAL EXAM PHYSICAL EXAM General: Alert, Oriented X3, Cooperative, No acute distress HEENT: Atraumatic, Mucous membr. moist/pink, NG intact Lungs: Other (bibasilar crackles) Heart: RRR; SR with PACs and PVCs Abdomen: Soft, No tenderness Extremities: trace LE edema Skin: No breakdown, No significant lesion Neuro: Normal speech, Sensation intact Psych/Mental Status: Mental status NL, Mood NL MUSCULOSKELETAL: Osteoarthritic changes both hands VITALS VITALS Vital Signs Date Time Temp Pulse Resp B/P (MAP) Pulse Ox O2 Delivery O2 Flow Rate FiO2 11/26/18 10:45 98 Nasal Cannula 3.0 11/26/18 09:10 17 11/26/18 07:30 98.1 91 111/70 (84) 98.1 LABS Lab: Laboratory Tests Test 11/25/18 15:00 11/25/18 16:43 11/25/18 21:08 11/26/18 07:31 Urine Collection Type Unknown Urine Color Yellow Urine Clarity Clear Urine pH 6.5 Urine Specific Brandon 1.015 Urine Protein Negative mg/dL (NEG-TRACE) Urine Glucose (UA) Negative mg/dL (NEG) Urine Ketones (Stick) Negative mg/dL (NEG) Urine Blood Negative (NEG) Urine Nitrite Negative (NEG) Urine Bilirubin Negative (NEG) Urine Urobilinogen Dipstick 0.2 mg/dL (0.2 mg/dL) Urine Leukocyte Esterase Negative (NEG) Urine RBC Occ /HPF (0-2) Urine WBC Occ /HPF (0-4) Urine Squamous Epithelial Cells Occ /LPF Urine Bacteria 0 /HPF (0-FEW) Urine Mucus Slight /LPF Glucose (Fingerstick) 84 mg/dL (70-99) 79 mg/dL (70-99) 76 mg/dL (70-99) Test 11/26/18 08:04 White Blood Count 9.2 x10^3/uL (4.0-11.0) Red Blood Count 2.87 x10^6/uL (4.30-5.70) Hemoglobin 9.1 g/dL (13.0-17.5) Hematocrit 27.7 % (39.0-53.0) Mean Corpuscular Volume 97 fL (79-100) Mean Corpuscular Hemoglobin 32 pg (25-35) Mean Corpuscular Hemoglobin Concent 33 g/dL (31-37) Red Cell Distribution Width 15.5 % (11.5-14.5) Platelet Count 190 x10^3/uL (140-400) Sodium Level 134 mmol/L (136-145) Potassium Level 3.5 mmol/L (3.5-5.1) Chloride Level 97 mmol/L (98-107) Carbon Dioxide Level 31 mmol/L (21-32) Anion Gap 6 (6-14) Blood Urea Nitrogen 18 mg/dL (8-26) Creatinine 0.7 mg/dL (0.7-1.3) Estimated GFR (Cockcroft-Gault) 109.6 Glucose Level 81 mg/dL (70-99) Calcium Level 8.4 mg/dL (8.5-10.1) ECHOCARDIOGRAM ECHOCARDIOGRAM <Conclusion> The left ventricular systolic function is normal. The Ejection Fraction is 55-60%. There is normal LV segmental wall motion. The left atrium is mild to moderately dilated. Trace mitral regurgitation. Trace tricuspid regurgitation. There is no evidence of significant pericardial effusion. DATE: 08/26/18 1705 STRESS TEST STRESS TEST Conclusion 1. Regadenoson cardioisotope stress test did not show any evidence of ischemia or infarct. 2. Normal left ventricular systolic function with ejection fraction calculated at 64%. 3. Low risk for cardiac events. DATE: 09/06/18 1448 ASSESSMENT/PLAN ASSESSMENT/PLAN 1. SBO, recurrent 2. Acute on chronic diastolic HF; Recent echo with preserved LV systolic function. CXR with vascular congestion 3. PAFIB; maintaining SR. On Cardizem at home for rate control 4. Hypertension: controlled 5. Hyperlipidemia 6. COPD/ILD 7. Hypothyroidism Recommendations Diuresis Start Metoprolol IV q6 while NPO for rate control Follow GI and surgery recs Resume ASA, statin when able to take PO Supportive care MATEO STEVENSON MD 11/26/18 2223: CARDIAC CONSULT ASSESSMENT/PLAN ASSESSMENT/PLAN Pt. seen and examined. Agree with above TRAFFIC CONTROL SUPERVISOR note. Diastolic HF - stable. WOuld not aggressive diurese due to SBO Supportive care. Thanks. Pls call with questions. JOSE HIGHTOWER APRN Nov 26, 2018 11:12 MATEO STEVENSON MD Nov 26, 2018 17:43
[2018-11-26 11:17] VITALS: BP 107/63
[2018-11-26] MEDS ORDERED: METOPROLOL TARTRATE 5 MG/5 ML VIAL. IVP PRN (12:00)
[2018-11-26] MEDS: MICAFUNGIN 100 MG in IV DEXTROSE 5% 100ML 100 ML IV SCH (12:01)
[2018-11-26 15:00] VITALS: BP 125/68
--- NOTE | 2018-11-26 15:19 | NUR ---
SW following pt for anticipated dc needs. Chart reviewed. SW confirmed pt is [facility] resident at and plan of return upon dc.
[2018-11-26] MEDS: METOPROLOL TARTRATE 5 MG/5 ML VIAL. IVP SCH ×2 (16:21→22:58)
[2018-11-26 19:15] VITALS: BP 143/83
[2018-11-26 23:15] VITALS: BP 135/69
--- NOTE | 2018-11-27 01:52 | CONS ---
DATE OF CONSULTATION: 11/26/2018 INFECTIOUS DISEASE CONSULTATION LOCATION: The patient's room is 663. REQUESTING PHYSICIAN: Dr. Garcia REASON FOR CONSULTATION: Bacteremia. HISTORY OF PRESENT ILLNESS: The patient is a pleasant 78-year-old gentleman with history of prostate cancer with history of radiation and prostatectomy, but has interstitial lung disease and has had complications for the recurrent small bowel obstruction. He presented to [facility] Emergency Room on the 24 of November with complaints of vomiting and decreased oral intake with increased abdominal distention. He reported to have coffee-ground emesis. He had a bowel movement on the day #4 and had some flatus, was afebrile on arrival, but had a white blood cell count of 15.6. Chest x-ray has some increased bilateral interstitial infiltrates and pulmonary edema. CT scan of the abdomen and pelvis was performed, showed severe dilatation of the proximal small bowel loops as well as the stomach and esophagus, some wall thickening in the esophagus, chronic interstitial changes of bilateral lungs, superimposed infection or aspiration classified with the same appearance. Blood cultures were obtained. He was placed on Zosyn yesterday. A blood culture turned positive for small gram-negative coccobacilli in 1 of 4 bottles with anaerobic bottles 2 sets. I was contacted by nursing, reviewed the cultures and antimicrobials and continued the Zosyn. Currently, the patient is sitting upright in bed. He does have a cough, but has difficulty clearing his sputum. Has no gross headaches. He did fall and bump his left eye. He states about 8 days ago he had been passing his urine. Denies any rashes, no itches. PAST MEDICAL HISTORY: Positive for previous small bowel obstruction. He has atrial fibrillation, hypertension, valve insufficiency, COPD, history of pneumonia, interstitial lung disease, gastroesophageal reflux disease, esophageal web, hepatitis C, colon polyps, ACD, hyperlipidemia, hypothyroidism, depression, osteoarthritis, history of prostate cancer with a history of radiation. He has a history of right leg fracture. PAST SURGICAL HISTORY: Positive for prostatectomy, appendectomy, bone marrow biopsies, laparotomy with release of small bowel obstructions with decompression, previous polypectomies and colonoscopies. REVIEW OF SYSTEMS: Otherwise negative. SOCIAL HISTORY: Quit smoking. Has a history of alcohol abuse in the past. FAMILY HISTORY: Positive for cancer as well as lupus. ALLERGIES: No known drug allergies. CURRENT MEDICATIONS: Include Zosyn, Ventolin, Pulmicort, Lasix, insulin, Protonix. PHYSICAL EXAMINATION: VITAL SIGNS: Currently, temperature is 98.1, pulse 91, respirations 14, blood pressure 111/70, satting 93% on 3 liters. CONSTITUTIONAL: He is alert, he is frail, wears glasses. He has an ecchymosis about his left eye. He has an NG tube in place. HEENT: His oral cavity and pharynx have dried secretions, questionable early thrush. NECK: Supple, no JVD. LUNGS: Had some mild rhonchi. HEART: S1, S2. ABDOMEN: Mildly distended, decreased bowel sounds. EXTREMITIES: Without clubbing or cyanosis. He has got some trace edema on the right, a well-healed scar. NEUROLOGIC: He is nonfocal and appropriate. PSYCHIATRIC: Affect is pleasant. SKIN: Without generalized signs of rash. LABORATORY VALUES: Today is currently pending. Yesterday, white count 11.3, hemoglobin 8.6, platelets 181. Current glucose fingerstick of 76. Previous creatinine is 0.8 from the . Glucose was 95. Urinalysis: Not consistent with urinary tract infection. MRSA screen was negative. Chest x-ray from the , unchanged interstitial edema, small bilateral pleural effusions, right perihilar and left basilar airspace disease mildly worse. IMPRESSION: 1. Bacteremia from the 24 of November, 1/4 bottles probable anaerobe, could be contamination versus true infection given his small bowel obstruction. 2. Small bowel obstruction. 3. Leukocytosis, better. 4. Questionable thrush. 5. Atrial fibrillation. RECOMMENDATIONS: For now, continue the Zosyn. Follow up labs and cultures. He needs oral care. This was discussed with nursing and we will add micafungin. Thank you for allowing me to participate in the patient's care. Should you have any questions, please do not hesitate to contact me. PATEL PRAKASH MD DR: WINSTON/ralph JOB#: [id number] / [id number]
[2018-11-27 03:20] VITALS: BP 139/81
[2018-11-27] MEDS: METOPROLOL TARTRATE 5 MG/5 ML VIAL. IVP SCH ×4 (05:27→23:41)
[2018-11-27] MEDS: MORPHINE SULFATE 4 MG/ML VIAL. IV PRN ×5 (05:28→20:19)
[2018-11-27] MEDS: PIPERACILLIN/TAZOBACTAM 3.375 GM in IV NORMAL SALINE 50ML 50 ML IV SCH ×4 (05:28→23:38)
[2018-11-27 07:25] VITALS: BP 124/68
[2018-11-27] MEDS: INSULIN LISPRO 300 UNITS/3 ML INSULN.PEN. SQ SCH ×3 (08:00→17:00)
[2018-11-27] MEDS: BUDESONIDE 0.5 MG/2 ML NEBU. NEB SCH ×2 (08:03→20:29)
[2018-11-27] MEDS: IPRATRPIUM/ALBUTEROL 0.5/2.5MG 3 ML NEBU. NEB SCH ×4 (08:03→20:29)
--- NOTE | 2018-11-27 08:35 | RAD ---
CHEST AP ONLY History: Congestive heart failure Comparison: November 25, 2018 Findings: Single view of the chest is submitted. There is again enteric catheter coursing into the stomach. There is unchanged left base infiltrate, increased airspace opacity of the mid left hemithorax. Right perihilar airspace opacity is fairly similar. There is interstitial opacity with basilar predominance bilaterally, somewhat greater of the right lung base. There are suspected small pleural effusions bilaterally as seen previously. No pneumothorax is identified. Heart size is stable. There is atherosclerotic calcification near aortic arch. Impression: 1. There is some increased infiltrate or edema of the mid left hemithorax, unchanged left base infiltrate and also similar right perihilar infiltrate or edema. There are suspected small pleural effusions bilaterally as seen previously. Degree of interstitial opacity is also somewhat greater likely due to interstitial edema. Electronically signed by: Maurizio Jamison MD (11/27/2018 8:32 AM) [facility]
[2018-11-27] MEDS: MICAFUNGIN 100 MG in IV DEXTROSE 5% 100ML 100 ML IV SCH (08:43)
[2018-11-27] MEDS: PANTOPRAZOLE IV PUSH 40 MG VIAL. IVP SCH ×2 (08:44→16:40)
[2018-11-27] MEDS: FUROSEMIDE 40 MG/4 ML VIAL. IVP SCH (08:44)
[2018-11-27 08:57] LABS: HEMATOCRIT 28.3 % (39.0-53.0); HEMOGLOBIN 9.5 g/dL (13.0-17.5); RED BLOOD COUNT 2.94 x10^6/uL (4.30-5.70); RED CELL DISTRIBUTION WIDTH 15.4 % (11.5-14.5); WHITE BLOOD COUNT 12.4 x10^3/uL (4.0-11.0)
[2018-11-27 09:09] LABS: CALCIUM 8.8 mg/dL (8.5-10.1); CREATININE 0.8 mg/dL (0.7-1.3)
[2018-11-27 11:15] VITALS: BP 112/57
--- NOTE | 2018-11-27 12:13 | PDOC ---
PROGRESS NOTES Subjective Subjective Patient without complaint, denies abdominal pain at present. Objective Objective Vital Signs Date Time Temp Pulse Resp B/P (MAP) Pulse Ox O2 Delivery O2 Flow Rate FiO2 11/27/18 11:15 98.2 84 20 112/57 (75) 95 Nasal Cannula 3.0 98.2 Intake and Output 11/27/18 07:00 Intake Total 0 ml Output Total 1930 ml Balance -1930 ml Intake Oral 0 ml Output Urine Total 1780 ml Drainage Total 150 ml Physical Exam Abdomen: Soft, Other (few faint BS present) Heart: Regular rate Extremities: Other (scant edema bilateral LE's) General: Alert, No acute distress Lungs: Other (coarse BS throughout, nonproductive cough present) Assessment Assessment Problems Medical Problems: (1) Pneumonia Status: Acute Plan Plan of Care 1. SBO - not improving, continue present care with NG tube. Surgery following, may need surgery. 2. pneumonia and COPD with bacteremia - afebrile. WBC's mildly elevated again but not as high as at admission. On Zosyn and Micafungin per ID. Receiving nebs and Pulmicort, sats stable. 3. hypokalemia - replace IV, continue PPN. 4. hypothyroidism - TSH elevated at admission. Change to IV at increased dose. Check T4. 5. CHF with diastolic dysfunction - some fluid overload seen on CXR but patient had preserved EF on last Echo 08/21 and Cardiology does not think significant CHF present now. Continue Lasix daily, chart shows some diuresis with this but I's and O's inaccurate to difficult to know for sure. 6, anemia with possible GI bleed - lab stable, GI following. Comment Review of Relevant I have reviewed the following items sherine (where applicable) has been applied. Labs Laboratory Tests Test 11/25/18 15:00 11/25/18 16:43 11/25/18 21:08 11/26/18 07:31 Urine Collection Type Unknown Urine Color Yellow Urine Clarity Clear Urine pH 6.5 Urine Specific [place] 1.015 Urine Protein Negative mg/dL (NEG-TRACE) Urine Glucose (UA) Negative mg/dL (NEG) Urine Ketones (Stick) Negative mg/dL (NEG) Urine Blood Negative (NEG) Urine Nitrite Negative (NEG) Urine Bilirubin Negative (NEG) Urine Urobilinogen Dipstick 0.2 mg/dL (0.2 mg/dL) Urine Leukocyte Esterase Negative (NEG) Urine RBC Occ /HPF (0-2) Urine WBC Occ /HPF (0-4) Urine Squamous Epithelial Cells Occ /LPF Urine Bacteria 0 /HPF (0-FEW) Urine Mucus Slight /LPF Glucose (Fingerstick) 84 mg/dL (70-99) 79 mg/dL (70-99) 76 mg/dL (70-99) Test 11/26/18 08:04 11/26/18 12:04 11/26/18 17:08 11/26/18 20:54 White Blood Count 9.2 x10^3/uL (4.0-11.0) Red Blood Count 2.87 x10^6/uL (4.30-5.70) Hemoglobin 9.1 g/dL (13.0-17.5) Hematocrit 27.7 % (39.0-53.0) Mean Corpuscular Volume 97 fL (79-100) Mean Corpuscular Hemoglobin 32 pg (25-35) Mean Corpuscular Hemoglobin Concent 33 g/dL (31-37) Red Cell Distribution Width 15.5 % (11.5-14.5) Platelet Count 190 x10^3/uL (140-400) Sodium Level 134 mmol/L (136-145) Potassium Level 3.5 mmol/L (3.5-5.1) Chloride Level 97 mmol/L (98-107) Carbon Dioxide Level 31 mmol/L (21-32) Anion Gap 6 (6-14) Blood Urea Nitrogen 18 mg/dL (8-26) Creatinine 0.7 mg/dL (0.7-1.3) Estimated GFR (Cockcroft-Gault) 109.6 Glucose Level 81 mg/dL (70-99) Calcium Level 8.4 mg/dL (8.5-10.1) Magnesium Level 2.2 mg/dL (1.8-2.4) WV-Guy-I-Type Natriuretic Peptide 727 pg/mL (0-449) Glucose (Fingerstick) 70 mg/dL (70-99) 68 mg/dL (70-99) 75 mg/dL (70-99) Test 11/27/18 07:41 11/27/18 08:00 11/27/18 11:00 Glucose (Fingerstick) 74 mg/dL (70-99) 92 mg/dL (70-99) White Blood Count 12.4 x10^3/uL (4.0-11.0) Red Blood Count 2.94 x10^6/uL (4.30-5.70) Hemoglobin 9.5 g/dL (13.0-17.5) Hematocrit 28.3 % (39.0-53.0) Mean Corpuscular Volume 96 fL (79-100) Mean Corpuscular Hemoglobin 32 pg (25-35) Mean Corpuscular Hemoglobin Concent 34 g/dL (31-37) Red Cell Distribution Width 15.4 % (11.5-14.5) Platelet Count 218 x10^3/uL (140-400) Sodium Level 135 mmol/L (136-145) Potassium Level 3.0 mmol/L (3.5-5.1) Chloride Level 95 mmol/L (98-107) Carbon Dioxide Level 30 mmol/L (21-32) Anion Gap 10 (6-14) Blood Urea Nitrogen 18 mg/dL (8-26) Creatinine 0.8 mg/dL (0.7-1.3) Estimated GFR (Cockcroft-Gault) 94.0 Glucose Level 76 mg/dL (70-99) Calcium Level 8.8 mg/dL (8.5-10.1) Laboratory Tests Test 11/26/18 17:08 11/26/18 20:54 11/27/18 07:41 11/27/18 08:00 Glucose (Fingerstick) 68 mg/dL (70-99) 75 mg/dL (70-99) 74 mg/dL (70-99) White Blood Count 12.4 x10^3/uL (4.0-11.0) Red Blood Count 2.94 x10^6/uL (4.30-5.70) Hemoglobin 9.5 g/dL (13.0-17.5) Hematocrit 28.3 % (39.0-53.0) Mean Corpuscular Volume 96 fL (79-100) Mean Corpuscular Hemoglobin 32 pg (25-35) Mean Corpuscular Hemoglobin Concent 34 g/dL (31-37) Red Cell Distribution Width 15.4 % (11.5-14.5) Platelet Count 218 x10^3/uL (140-400) Sodium Level 135 mmol/L (136-145) Potassium Level 3.0 mmol/L (3.5-5.1) Chloride Level 95 mmol/L (98-107) Carbon Dioxide Level 30 mmol/L (21-32) Anion Gap 10 (6-14) Blood Urea Nitrogen 18 mg/dL (8-26) Creatinine 0.8 mg/dL (0.7-1.3) Estimated GFR (Cockcroft-Gault) 94.0 Glucose Level 76 mg/dL (70-99) Calcium Level 8.8 mg/dL (8.5-10.1) Test 11/27/18 11:00 Glucose (Fingerstick) 92 mg/dL (70-99) Microbiology 11/24/18 Blood Culture - Final, Complete Medications Current Medications Fentanyl Citrate (Fentanyl 2ml Vial) 50 mcg 1X ONCE IV Last administered on 11/24/18 03:45; Start 11/24/18 at 03:15; Stop 11/24/18 at 03:18; Status DC Sodium Chloride 1,000 ml @ 1,000 mls/hr 1X ONCE IV Last administered on 11/24/18at 03:45; Start 11/24/18 at 03:15; Stop 11/24/18 at 04:14; Status DC Ondansetron HCl (Zofran) 4 mg 1X ONCE IV Last administered on 11/24/18at 03:45; Start 11/24/18 at 03:15; Stop 11/24/18 at 03:18; Status DC Iohexol (Omnipaque 300 Mg/ml) 75 ml 1X ONCE IV Last administered on 11/24/18at 04:30; Start 11/24/18 at 03:45; Stop 11/24/18 at 03:46; Status DC Info (CONTRAST GIVEN -- Rx MONITORING) 1 each PRN DAILY PRN MC SEE COMMENTS; Start 11/24/18 at 03:45; Stop 11/26/18 at 03:44; Status DC Benzocaine (Hurricaine One) 1 spray 1X ONCE MM ; Start 11/24/18 at 05:15; Stop 11/24/18 at 05:16; Status DC Morphine Sulfate (Morphine Sulfate) 4 mg 1X ONCE IV Last administered on 11/24/18at 06:03; Start 11/24/18 at 06:00; Stop 11/24/18 at 06:01; Status DC Sodium Chloride 1,000 ml @ 1,000 mls/hr 1X ONCE IV Last administered on 11/24/18at 06:03; Start 11/24/18 at 06:00; Stop 11/24/18 at 06:59; Status DC Morphine Sulfate (Morphine Sulfate) 4 mg PRN Q2HR PRN IV PAIN Last administered on 11/27/18at 09:32; Start 11/24/18 at 06:00 Sodium Chloride 1,000 ml @ 125 mls/hr 1X ONCE IV Last administered on 11/24/18at 08:10; Start 11/24/18 at 06:00; Stop 11/24/18 at 13:59; Status DC Ondansetron HCl (Zofran) 4 mg PRN Q6HRS PRN IV NAUSEA/VOMITING; Start 11/24/18 at 06:00 Piperacillin Sod/ Tazobactam Sod (Zosyn Per Pharmacy) 1 each PRN DAILY PRN MC SEE COMMENTS; Start 11/24/18 at 06:00 Piperacillin Sod/ Tazobactam Sod 3.375 gm/Sodium Chloride 50 ml @ 100 mls/hr 1X ONCE IV Last administered on 11/24/18at 06:53; Start 11/24/18 at 06:15; Stop 11/24/18 at 06:44; Status DC Piperacillin Sod/ Tazobactam Sod 3.375 gm/Sodium Chloride 50 ml @ 100 mls/hr Q6HRS IV Last administered on 11/27/18at 05:28; Start 11/24/18 at 12:00 Pantoprazole Sodium (PROTONIX VIAL for IV PUSH) 40 mg DAILYAC IVP Last administered on 11/25/18at 09:04; Start 11/24/18 at 11:30; Stop 11/25/18 at 11:36; Status DC Insulin Human Lispro (HumaLOG) 0-5 UNITS TIDWMEALS SQ ; Start 11/24/18 at 12:00 Dextrose (Dextrose 50%-Water Syringe) 12.5 gm PRN Q15MIN PRN IV SEE COMMENTS; Start 11/24/18 at 09:45 Amino Acids/ Glycerin/ Electrolytes 1,000 ml @ 50 mls/hr Q20H IV Last administered on 11/26/18at 18:52; Start 11/24/18 at 09:45 Budesonide (Pulmicort) 0.5 mg RTBID NEB Last administered on 11/27/18 08:03; Start 11/24/18 at 10:00 Albuterol/ Ipratropium (Duoneb) 3 ml RTQID NEB Last administered on 11/27/18 08:03; Start 11/24/18 at 12:00 Furosemide (Lasix) 40 mg 1X ONCE IVP Last administered on 11/25/18 04:44; Start 11/25/18 at 05:00; Stop 11/25/18 at 05:01; Status DC Albuterol Sulfate (Ventolin Neb Soln) 2.5 mg PRN Q6HRS PRN NEB SHORTNESS OF BREATH Last administered on 11/26/18at 00:35; Start 11/25/18 at 04:45 Pantoprazole Sodium (PROTONIX VIAL for IV PUSH) 40 mg BIDAC IVP Last administered on 11/27/18 08:44; Start 11/25/18 at 16:30 Potassium Chloride/Water 100 ml @ 100 mls/hr Q1H IV Last administered on 11/25/18 16:26; Start 11/25/18 at 13:00; Stop 11/25/18 at 16:59; Status DC Furosemide (Lasix) 20 mg 1X ONCE IVP Last administered on 11/26/18 00:34; Start 11/26/18 at 01:00; Stop 11/26/18 at 01:01; Status DC Micafungin Sodium 100 mg/Dextrose 100 ml @ 100 mls/hr Q24H IV Last administered on 11/27/18 08:43; Start 11/26/18 at 09:00 Furosemide (Lasix) 40 mg 1X ONCE IVP Last administered on 11/26/18 10:33; Start 11/26/18 at 09:15; Stop 11/26/18 at 09:16; Status DC Albumin Human 100 ml @ 100 mls/hr 1X ONCE IV Last administered on 11/26/18at 10:34; Start 11/26/18 at 09:15; Stop 11/26/18 at 10:14; Status DC Metoprolol Tartrate (Lopressor Vial) 5 mg PRN Q6HRS PRN IVP HYPERTENSION, SEE COMMENTS; Start 11/26/18 at 12:00; Stop 11/26/18 at 14:22; Status DC Metoprolol Tartrate (Lopressor Vial) 5 mg Q6HRS IVP Last administered on at 05:27; Start 11/26/18 at 16:00 Furosemide (Lasix) 40 mg DAILY IVP Last administered on 11/27/18at 08:44; Start 11/27/18 at 09:00 Ondansetron HCl (Zofran) 4 mg PRN Q6HRS PRN IV NAUSEA/VOMITING; Start 11/29/18 at 07:00; Stop 11/30/18 at 06:59 Fentanyl Citrate (Fentanyl 2ml Vial) 25 mcg PRN Q5MIN PRN IV MILD PAIN; Start 11/29/18 at 07:00; Stop 11/30/18 at 06:59 Fentanyl Citrate (Fentanyl 2ml Vial) 50 mcg PRN Q5MIN PRN IV MODERATE TO SEVERE PAIN; Start 11/29/18 at 07:00; Stop 11/30/18 at 06:59 Morphine Sulfate (Morphine Sulfate) 1 mg PRN Q10MIN PRN IV SEVERE PAIN; Start 11/29/18 at 07:00; Stop 11/30/18 at 06:59 Ringer's Solution 1,000 ml @ 30 mls/hr Q24H IV ; Start 11/29/18 at 07:00; Stop 11/29/18 at 18:59 Lidocaine HCl (Xylocaine-Mpf 1% 2ml Vial) 2 ml PRN 1X PRN ID PRIOR TO IV START; Start 11/29/18 at 07:00; Stop 11/30/18 at 06:59 Hydromorphone HCl (Dilaudid) 0.5 mg PRN Q10MIN PRN IV SEV PAIN, Second choice; Start 11/29/18 at 07:00; Stop 11/30/18 at 06:59 Prochlorperazine Edisylate (Compazine) 5 mg PACU PRN PRN IV NAUSEA, MRX1; Start 11/29/18 at 07:00; Stop 11/30/18 at 06:59 Active Scripts Active Sertraline Hcl 25 Mg Tablet 50 Mg PO QHS 30 Days Magnesium Chloride 70 Mg Tablet.dr 64 Mg PO DAILY 30 Days Synthroid (Levothyroxine Sodium) 88 Mcg Tablet 88 Mcg PO DAILY06 30 Days Prednisone 20 Mg Tablet 20 Mg PO DAILY 30 Days Budesonide 0.5 Mg/2 Ml Ampul.neb 0.5 Mg NEB RTBID 30 Days Klor-Con 10 (Potassium Chloride) 10 Meq Tablet.er 1 Tab PO DAILY Lasix (Furosemide) 40 Mg Tablet 1 Tab PO DAILY Aspirin Ec (Aspirin) 81 Mg Tablet.dr 81 Mg PO DAILYWBKFT 30 Days Duoneb 0.5-3(2.5) Mg/3 Ml (Albuterol/Ipratropium) 3 Ml Ampul.neb 3 Ml NEB RTQID 30 Days Diltiazem 24HR Cd (Diltiazem Hcl) 120 Mg Cap.er.24h 120 Mg PO DAILY 30 Days Reported Hydrocodone-Apap 7.5-325 (Hydrocodone Bit/Acetaminophen) 1 Tab Tablet 1 Tab PO PRN Q6HRS PRN Omeprazole 40 Mg Capsule.dr 40 Mg PO DAILY Vitals/I & O Vital Sign - Last 24 Hours 11/26/18 11/26/18 11/26/18 11/26/18 13:45 15:00 15:12 16:16 Temp 98.5 98.5 Pulse 97 Resp 17 22 17 B/P (MAP) 125/68 (87) Pulse Ox 90 O2 Delivery Nasal Cannula Nasal Cannula Nasal Cannula Nasal Cannula O2 Flow Rate 2.0 3.0 2.0 2.0 11/26/18 11/26/18 11/26/18 11/26/18 16:21 16:46 19:15 20:00 Temp 99.4 99.4 Pulse 97 102 Resp 17 22 B/P (MAP) 125/68 143/83 (103) Pulse Ox 93 O2 Delivery Nasal Cannula Nasal Cannula O2 Flow Rate 3.0 3.0 11/26/18 11/26/18 11/26/18 11/26/18 20:04 20:09 22:58 23:15 Temp 98.4 98.4 Pulse 102 96 Resp 22 B/P (MAP) 143/83 135/69 (91) Pulse Ox 94 92 O2 Delivery Nasal Cannula Nasal Cannula Nasal Cannula O2 Flow Rate 3.0 4.0 3.0 11/27/18 11/27/18 11/27/18 11/27/18 03:20 05:27 05:28 06:11 Temp 98.8 98.8 Pulse 95 95 Resp 20 B/P (MAP) 139/81 (100) 139/81 Pulse Ox 91 O2 Delivery Nasal Cannula Nasal Cannula Nasal Cannula O2 Flow Rate 3.0 3.0 3.0 11/27/18 11/27/18 11/27/18 11/27/18 07:25 08:00 08:06 09:32 Temp 98.2 98.2 Pulse 82 Resp 20 B/P (MAP) 124/68 (86) Pulse Ox 92 94 94 O2 Delivery Nasal Cannula Nasal Cannula Nasal Cannula Nasal Cannula O2 Flow Rate 3.0 3.0 4.0 4.0 11/27/18 11:15 Temp 98.2 98.2 Pulse 84 Resp 20 B/P (MAP) 112/57 (75) Pulse Ox 95 O2 Delivery Nasal Cannula O2 Flow Rate 3.0 Intake and Output 11/26/18 11/26/18 11/27/18 15:00 23:00 07:00 Intake Total 0 ml 0 ml Output Total 600 ml 700 ml 630 ml Balance -600 ml -700 ml -630 ml Nutrition Consultation Dietary Evaluation: Recommendations by RD: PPN/TPN Comments: continue PPN for short term nutrition Expected Outcomes/Goals: diet adv/ tolerance Malnutrition Findings: Body Fat Depletion (Non Severe: Mild Depletion Weight Status: Underweight KIM REGAN MD Nov 27, 2018 12:13
[2018-11-27] MEDS: POTASSIUM CHLORIDE 10MEQ 100 ML IV SCH ×4 (12:46→16:39)
--- NOTE | 2018-11-27 14:55 | PDOC ---
Infectious Disease Note Subjective Subjective c/o cough and chest congestion NGT is uncomfortable Denies N/V/pain No F/C/S ROS ROS per HPI Vital Sign Vital Signs Vital Signs Date Time Temp Pulse Resp B/P (MAP) Pulse Ox O2 Delivery O2 Flow Rate FiO2 11/27/18 12:45 95 Nasal Cannula 3.0 11/27/18 11:15 98.2 84 20 112/57 (75) 98.2 Physical Exam PHYSICAL EXAM GENERAL: Propped up in bed, alert, NAD He is alert, he is frail, wears glasses. He has an He has an NG tube in place. HEENT: Ecchymosis about his left eye. Oral cavity and pharynx w/ dried secretions, questionable early thrush. NGT to LIWS NECK: Supple, no JVD. LUNGS: + rhonchi. HEART: S1, S2. ABDOMEN: Mildly distended, soft, NT, decreased bowel sounds. EXTREMITIES: Without clubbing or cyanosis. 2+ edema lower extremities, bilaterally NEUROLOGIC: Alert, responds appropriately SKIN: Without generalized signs of rash. PIV Labs Lab Laboratory Tests Test 11/26/18 17:08 11/26/18 20:54 11/27/18 07:41 11/27/18 08:00 Glucose (Fingerstick) 68 mg/dL (70-99) 75 mg/dL (70-99) 74 mg/dL (70-99) White Blood Count 12.4 x10^3/uL (4.0-11.0) Red Blood Count 2.94 x10^6/uL (4.30-5.70) Hemoglobin 9.5 g/dL (13.0-17.5) Hematocrit 28.3 % (39.0-53.0) Mean Corpuscular Volume 96 fL (79-100) Mean Corpuscular Hemoglobin 32 pg (25-35) Mean Corpuscular Hemoglobin Concent 34 g/dL (31-37) Red Cell Distribution Width 15.4 % (11.5-14.5) Platelet Count 218 x10^3/uL (140-400) Sodium Level 135 mmol/L (136-145) Potassium Level 3.0 mmol/L (3.5-5.1) Chloride Level 95 mmol/L (98-107) Carbon Dioxide Level 30 mmol/L (21-32) Anion Gap 10 (6-14) Blood Urea Nitrogen 18 mg/dL (8-26) Creatinine 0.8 mg/dL (0.7-1.3) Estimated GFR (Cockcroft-Gault) 94.0 Glucose Level 76 mg/dL (70-99) Calcium Level 8.8 mg/dL (8.5-10.1) Test 11/27/18 11:00 Glucose (Fingerstick) 92 mg/dL (70-99) Impression: 1. There is some increased infiltrate or edema of the mid left hemithorax, unchanged left base infiltrate and also similar right perihilar infiltrate or edema. There are suspected small pleural effusions bilaterally as seen previously. Degree of interstitial opacity is also somewhat greater likely due to interstitial edema. Micro BLOOD CULTURE Final SMALL GRAM NEGATIVE COCCOBACILLI IN 1 OF 4 BOTTLES (ANAEROBIC BOTTLE) TWO SETS DRAWN. BLD CULT RESULT 1 Preliminary Streptococcus species Objective Assessment Bacteremia from 11/24 - (gram neg coccobacilli in 1/4 bottles) Strep spp SBO Leukocytosis - better ? thrush AFib CHF Plan Plan of Care Cont Zosyn and micafungin F/u labs and cults Oral care Surgery following Supportive care Attending Co-Sign The patient was seen and interviewed as well as examined at the bedside. The chart was reviewed. The case was discussed. Agree with the plan of care. BOED WEINER FISH HATCHERY ASSISTANT Nov 27, 2018 14:55 HOLLY MCKEON MD Nov 27, 2018 14:59
[2018-11-27 15:15] VITALS: BP 126/72
--- NOTE | 2018-11-27 16:41 | PDOC ---
SURGICAL PROGRESS NOTE Subjective Pt with c/o fatigue, notes some flatus Vital Signs Vital Signs Date Time Temp Pulse Resp B/P (MAP) Pulse Ox O2 Delivery O2 Flow Rate FiO2 11/27/18 15:46 95 Nasal Cannula 3.0 11/27/18 15:15 98.2 91 20 126/72 (90) 98.2 I&O Intake and Output 11/27/18 06:59 Intake Total 0 ml Output Total 1930 ml Balance -1930 ml Intake Oral 0 ml Output Urine Total 1780 ml Drainage Total 150 ml General: Alert, Cooperative, No acute distress Abdomen: Soft, No tenderness, Other (reducible hernia with min TTP over it) Labs Laboratory Tests Test 11/25/18 16:43 11/25/18 21:08 11/26/18 07:31 11/26/18 08:04 Glucose (Fingerstick) 84 mg/dL (70-99) 79 mg/dL (70-99) 76 mg/dL (70-99) White Blood Count 9.2 x10^3/uL (4.0-11.0) Red Blood Count 2.87 x10^6/uL (4.30-5.70) Hemoglobin 9.1 g/dL (13.0-17.5) Hematocrit 27.7 % (39.0-53.0) Mean Corpuscular Volume 97 fL (79-100) Mean Corpuscular Hemoglobin 32 pg (25-35) Mean Corpuscular Hemoglobin Concent 33 g/dL (31-37) Red Cell Distribution Width 15.5 % (11.5-14.5) Platelet Count 190 x10^3/uL (140-400) Sodium Level 134 mmol/L (136-145) Potassium Level 3.5 mmol/L (3.5-5.1) Chloride Level 97 mmol/L (98-107) Carbon Dioxide Level 31 mmol/L (21-32) Anion Gap 6 (6-14) Blood Urea Nitrogen 18 mg/dL (8-26) Creatinine 0.7 mg/dL (0.7-1.3) Estimated GFR (Cockcroft-Gault) 109.6 Glucose Level 81 mg/dL (70-99) Calcium Level 8.4 mg/dL (8.5-10.1) Magnesium Level 2.2 mg/dL (1.8-2.4) WV-Lhg-O-Type Natriuretic Peptide 727 pg/mL (0-449) Test 11/26/18 12:04 11/26/18 17:08 11/26/18 20:54 11/27/18 07:41 Glucose (Fingerstick) 70 mg/dL (70-99) 68 mg/dL (70-99) 75 mg/dL (70-99) 74 mg/dL (70-99) Test 11/27/18 08:00 11/27/18 11:00 White Blood Count 12.4 x10^3/uL (4.0-11.0) Red Blood Count 2.94 x10^6/uL (4.30-5.70) Hemoglobin 9.5 g/dL (13.0-17.5) Hematocrit 28.3 % (39.0-53.0) Mean Corpuscular Volume 96 fL (79-100) Mean Corpuscular Hemoglobin 32 pg (25-35) Mean Corpuscular Hemoglobin Concent 34 g/dL (31-37) Red Cell Distribution Width 15.4 % (11.5-14.5) Platelet Count 218 x10^3/uL (140-400) Sodium Level 135 mmol/L (136-145) Potassium Level 3.0 mmol/L (3.5-5.1) Chloride Level 95 mmol/L (98-107) Carbon Dioxide Level 30 mmol/L (21-32) Anion Gap 10 (6-14) Blood Urea Nitrogen 18 mg/dL (8-26) Creatinine 0.8 mg/dL (0.7-1.3) Estimated GFR (Cockcroft-Gault) 94.0 Glucose Level 76 mg/dL (70-99) Calcium Level 8.8 mg/dL (8.5-10.1) Glucose (Fingerstick) 92 mg/dL (70-99) Laboratory Tests Test 11/26/18 17:08 11/26/18 20:54 11/27/18 07:41 11/27/18 08:00 Glucose (Fingerstick) 68 mg/dL (70-99) 75 mg/dL (70-99) 74 mg/dL (70-99) White Blood Count 12.4 x10^3/uL (4.0-11.0) Red Blood Count 2.94 x10^6/uL (4.30-5.70) Hemoglobin 9.5 g/dL (13.0-17.5) Hematocrit 28.3 % (39.0-53.0) Mean Corpuscular Volume 96 fL (79-100) Mean Corpuscular Hemoglobin 32 pg (25-35) Mean Corpuscular Hemoglobin Concent 34 g/dL (31-37) Red Cell Distribution Width 15.4 % (11.5-14.5) Platelet Count 218 x10^3/uL (140-400) Sodium Level 135 mmol/L (136-145) Potassium Level 3.0 mmol/L (3.5-5.1) Chloride Level 95 mmol/L (98-107) Carbon Dioxide Level 30 mmol/L (21-32) Anion Gap 10 (6-14) Blood Urea Nitrogen 18 mg/dL (8-26) Creatinine 0.8 mg/dL (0.7-1.3) Estimated GFR (Cockcroft-Gault) 94.0 Glucose Level 76 mg/dL (70-99) Calcium Level 8.8 mg/dL (8.5-10.1) Test 11/27/18 11:00 Glucose (Fingerstick) 92 mg/dL (70-99) Problem List Problems Medical Problems: (1) Pneumonia Status: Acute Assessment/Plan SBO will check KUB in AM cont NGT consider OR on 11/29 MIKAELA TABARES MD Nov 27, 2018 16:41
[2018-11-27 19:45] VITALS: BP 123/67
[2018-11-27] MEDS: AMINO AC 3%/ELECTROLYTE/GLYCER 1,000 ML IV SCH (20:19)
[2018-11-27 23:30] VITALS: BP 131/75
[2018-11-28] MEDS: MORPHINE SULFATE 4 MG/ML VIAL. IV PRN ×5 (03:13→21:17)
[2018-11-28 03:45] VITALS: BP 127/78
[2018-11-28] MEDS: ALBUTEROL SULFATE 2.5 MG/3 ML NEBU. NEB PRN (03:57)
[2018-11-28 04:43] LABS: HEMATOCRIT 28.7 % (39.0-53.0); HEMOGLOBIN 9.3 g/dL (13.0-17.5); RED BLOOD COUNT 2.96 x10^6/uL (4.30-5.70); RED CELL DISTRIBUTION WIDTH 15.5 % (11.5-14.5); WHITE BLOOD COUNT 9.9 x10^3/uL (4.0-11.0)
[2018-11-28 05:01] LABS: CALCIUM 8.4 mg/dL (8.5-10.1); CREATININE 0.6 mg/dL (0.7-1.3); POTASSIUM 3.6 mmol/L (3.5-5.1)
[2018-11-28] MEDS: PIPERACILLIN/TAZOBACTAM 3.375 GM in IV NORMAL SALINE 50ML 50 ML IV SCH ×3 (05:14→17:47)
[2018-11-28] MEDS: METOPROLOL TARTRATE 5 MG/5 ML VIAL. IVP SCH ×3 (05:14→17:48)
[2018-11-28 07:10] VITALS: BP 162/65
[2018-11-28] MEDS: BUDESONIDE 0.5 MG/2 ML NEBU. NEB SCH ×2 (07:49→19:43)
[2018-11-28] MEDS: IPRATRPIUM/ALBUTEROL 0.5/2.5MG 3 ML NEBU. NEB SCH ×4 (07:49→19:43)
--- NOTE | 2018-11-28 07:50 | RAD ---
ABDOMEN SUPINE UPRIGHT History: Small bowel obstruction Comparison: November 27, 2018 chest radiograph and abdomen radiographs November 25, 2018 Findings: Single supine AP view the abdomen and single upright view of the abdomen are submitted. There is enteric catheter terminating in stomach. There is again some airspace opacity of the visualized mid to inferior hemithoraces bilaterally and probable small pleural effusions. No free air is identified. Degree of distention of the bowel has decreased compared with the previous November 25, 2018 exam, likely some residual borderline caliber small bowel in the abdomen. There is residual stool such as of the right colon and rectum. Impression: 1. Overall degree of distention of the bowel has decreased, some residual stool and borderline prominent segments of small bowel. Electronically signed by: Maurizio Jamison MD (11/28/2018 7:47 AM) [facility]
[2018-11-28] MEDS: INSULIN LISPRO 300 UNITS/3 ML INSULN.PEN. SQ SCH ×3 (08:00→16:55)
[2018-11-28] MEDS: PANTOPRAZOLE IV PUSH 40 MG VIAL. IVP SCH ×2 (08:56→16:00)
[2018-11-28] MEDS: MICAFUNGIN 100 MG in IV DEXTROSE 5% 100ML 100 ML IV SCH (09:02)
[2018-11-28] MEDS: FUROSEMIDE 40 MG/4 ML VIAL. IVP SCH (09:06)
[2018-11-28 10:50] VITALS: BP 127/70
--- NOTE | 2018-11-28 11:23 | PDOC ---
Infectious Disease Note Subjective Subjective c/o cough, chest congestion and some SOA O2 4L NGT LIWS Denies N/V/pain No F/C/S ROS ROS per HPI Vital Sign Vital Signs Vital Signs Date Time Temp Pulse Resp B/P (MAP) Pulse Ox O2 Delivery O2 Flow Rate FiO2 11/28/18 10:50 98.1 94 21 127/70 (89) 92 Nasal Cannula 3.0 98.1 Physical Exam PHYSICAL EXAM GENERAL: Propped up in bed, weak appearing, HEENT: Ecchymosis about his left eye. Oral cavity and pharynx w/ dried secretions, NGT to LIWS NECK: Supple, no JVD. LUNGS: + rhonchi. Nonlabored HEART: S1, S2. ABDOMEN: Mildly distended, soft, NT, decreased bowel sounds. EXTREMITIES: Without clubbing or cyanosis. 2+ edema lower extremities, bilaterally NEUROLOGIC: Sleepy, answering questions appropriately SKIN: Without generalized signs of rash. PIV ok Labs Lab Laboratory Tests Test 11/27/18 16:49 11/27/18 20:49 11/28/18 04:00 11/28/18 09:08 Glucose (Fingerstick) 72 mg/dL (70-99) 82 mg/dL (70-99) 91 mg/dL (70-99) White Blood Count 9.9 x10^3/uL (4.0-11.0) Red Blood Count 2.96 x10^6/uL (4.30-5.70) Hemoglobin 9.3 g/dL (13.0-17.5) Hematocrit 28.7 % (39.0-53.0) Mean Corpuscular Volume 97 fL (79-100) Mean Corpuscular Hemoglobin 31 pg (25-35) Mean Corpuscular Hemoglobin Concent 32 g/dL (31-37) Red Cell Distribution Width 15.5 % (11.5-14.5) Platelet Count 236 x10^3/uL (140-400) Sodium Level 137 mmol/L (136-145) Potassium Level 3.6 mmol/L (3.5-5.1) Chloride Level 97 mmol/L (98-107) Carbon Dioxide Level 30 mmol/L (21-32) Anion Gap 10 (6-14) Blood Urea Nitrogen 18 mg/dL (8-26) Creatinine 0.6 mg/dL (0.7-1.3) Estimated GFR (Cockcroft-Gault) 131.0 Glucose Level 87 mg/dL (70-99) Calcium Level 8.4 mg/dL (8.5-10.1) Free Thyroxine 0.81 ng/dL (0.76-1.46) 1. Overall degree of distention of the bowel has decreased, some residual stool and borderline prominent segments of small bowel. Micro BLOOD CULTURE Final SMALL GRAM NEGATIVE COCCOBACILLI IN 1 OF 4 BOTTLES (ANAEROBIC BOTTLE) TWO SETS DRAWN. BLD CULT RESULT 1 Preliminary Streptococcus species Objective Assessment Bacteremia from 11/24 - (gram neg coccobacilli in 1/4 bottles) Strep spp SBO Leukocytosis - better ? thrush AFib CHF Plan Plan of Care Cont Zosyn and micafungin f/u cultures Monitor labs Oral care Maintain aspiration precautions Surgery possibly on 11/29 Supportive care Attending Co-Sign The patient was seen and interviewed as well as examined at the bedside. The chart was reviewed. The case was discussed. Agree with the plan of care. OBED WEINER APRN Nov 28, 2018 11:23 HOLLY MCKEON MD Nov 28, 2018 13:38
--- NOTE | 2018-11-28 12:41 | PDOC ---
PROGRESS NOTES Subjective Subjective Patient denies having any flatus. Admits to some SOA. Objective Objective Vital Signs Date Time Temp Pulse Resp B/P (MAP) Pulse Ox O2 Delivery O2 Flow Rate FiO2 11/28/18 11:50 92 Nasal Cannula 4.0 11/28/18 10:50 98.1 94 21 127/70 (89) 98.1 Intake and Output 11/28/18 07:00 Intake Total 0 ml Output Total 2000 ml Balance -2000 ml Intake Oral 0 ml Output Urine Total 1950 ml Gastric Drainage Total 50 ml Physical Exam Abdomen: Soft, Other (no BS heard) Heart: Regular rate Extremities: No edema General: Alert, Oriented X3, No acute distress Lungs: Other (coarse BP throughout, no wheezes heard) Assessment Assessment Problems Medical Problems: (1) Pneumonia Status: Acute Plan Plan of Care 1. SBO - xray somewhat improved but no BS on exam. Continue present tx, may possibly need surgery. Continue PPN and NG tube. 2. pneumonia with COPD and bacteremia - sats seem a little lower on O2 than yesterday. Continue nebs and O2. Already on Zosyn and Micafungin per ID. Consult Pulmonary to help with further tx. 3. CHF with diastolic dysfunction - I's and O's not accurate but good UO recorded, continue Lasix. 4. hypokalemia - improved with IV replacement yesterday, follow lab. 5. hypothyroidism - continue IV replacement. 6. anemia - Hgb stable on lab. Comment Review of Relevant I have reviewed the following items sherine (where applicable) has been applied. Labs Laboratory Tests Test 11/26/18 17:08 11/26/18 20:54 11/27/18 07:41 11/27/18 08:00 Glucose (Fingerstick) 68 mg/dL (70-99) 75 mg/dL (70-99) 74 mg/dL (70-99) White Blood Count 12.4 x10^3/uL (4.0-11.0) Red Blood Count 2.94 x10^6/uL (4.30-5.70) Hemoglobin 9.5 g/dL (13.0-17.5) Hematocrit 28.3 % (39.0-53.0) Mean Corpuscular Volume 96 fL (79-100) Mean Corpuscular Hemoglobin 32 pg (25-35) Mean Corpuscular Hemoglobin Concent 34 g/dL (31-37) Red Cell Distribution Width 15.4 % (11.5-14.5) Platelet Count 218 x10^3/uL (140-400) Sodium Level 135 mmol/L (136-145) Potassium Level 3.0 mmol/L (3.5-5.1) Chloride Level 95 mmol/L (98-107) Carbon Dioxide Level 30 mmol/L (21-32) Anion Gap 10 (6-14) Blood Urea Nitrogen 18 mg/dL (8-26) Creatinine 0.8 mg/dL (0.7-1.3) Estimated GFR (Cockcroft-Gault) 94.0 Glucose Level 76 mg/dL (70-99) Calcium Level 8.8 mg/dL (8.5-10.1) Test 11/27/18 11:00 11/27/18 16:49 11/27/18 20:49 11/28/18 04:00 Glucose (Fingerstick) 92 mg/dL (70-99) 72 mg/dL (70-99) 82 mg/dL (70-99) White Blood Count 9.9 x10^3/uL (4.0-11.0) Red Blood Count 2.96 x10^6/uL (4.30-5.70) Hemoglobin 9.3 g/dL (13.0-17.5) Hematocrit 28.7 % (39.0-53.0) Mean Corpuscular Volume 97 fL (79-100) Mean Corpuscular Hemoglobin 31 pg (25-35) Mean Corpuscular Hemoglobin Concent 32 g/dL (31-37) Red Cell Distribution Width 15.5 % (11.5-14.5) Platelet Count 236 x10^3/uL (140-400) Sodium Level 137 mmol/L (136-145) Potassium Level 3.6 mmol/L (3.5-5.1) Chloride Level 97 mmol/L (98-107) Carbon Dioxide Level 30 mmol/L (21-32) Anion Gap 10 (6-14) Blood Urea Nitrogen 18 mg/dL (8-26) Creatinine 0.6 mg/dL (0.7-1.3) Estimated GFR (Cockcroft-Gault) 131.0 Glucose Level 87 mg/dL (70-99) Calcium Level 8.4 mg/dL (8.5-10.1) Free Thyroxine 0.81 ng/dL (0.76-1.46) Test 11/28/18 09:08 11/28/18 11:30 Glucose (Fingerstick) 91 mg/dL (70-99) 93 mg/dL (70-99) Laboratory Tests Test 11/27/18 16:49 11/27/18 20:49 11/28/18 04:00 11/28/18 09:08 Glucose (Fingerstick) 72 mg/dL (70-99) 82 mg/dL (70-99) 91 mg/dL (70-99) White Blood Count 9.9 x10^3/uL (4.0-11.0) Red Blood Count 2.96 x10^6/uL (4.30-5.70) Hemoglobin 9.3 g/dL (13.0-17.5) Hematocrit 28.7 % (39.0-53.0) Mean Corpuscular Volume 97 fL (79-100) Mean Corpuscular Hemoglobin 31 pg (25-35) Mean Corpuscular Hemoglobin Concent 32 g/dL (31-37) Red Cell Distribution Width 15.5 % (11.5-14.5) Platelet Count 236 x10^3/uL (140-400) Sodium Level 137 mmol/L (136-145) Potassium Level 3.6 mmol/L (3.5-5.1) Chloride Level 97 mmol/L (98-107) Carbon Dioxide Level 30 mmol/L (21-32) Anion Gap 10 (6-14) Blood Urea Nitrogen 18 mg/dL (8-26) Creatinine 0.6 mg/dL (0.7-1.3) Estimated GFR (Cockcroft-Gault) 131.0 Glucose Level 87 mg/dL (70-99) Calcium Level 8.4 mg/dL (8.5-10.1) Free Thyroxine 0.81 ng/dL (0.76-1.46) Test 11/28/18 11:30 Glucose (Fingerstick) 93 mg/dL (70-99) Microbiology 11/24/18 Blood Culture - Preliminary, Resulted 11/24/18 Blood Culture Result 1 (ATA) - Preliminary, Resulted Medications Current Medications Fentanyl Citrate (Fentanyl 2ml Vial) 50 mcg 1X ONCE IV Last administered on 11/24/18 03:45; Start 11/24/18 at 03:15; Stop 11/24/18 at 03:18; Status DC Sodium Chloride 1,000 ml @ 1,000 mls/hr 1X ONCE IV Last administered on 11/24/18at 03:45; Start 11/24/18 at 03:15; Stop 11/24/18 at 04:14; Status DC Ondansetron HCl (Zofran) 4 mg 1X ONCE IV Last administered on 11/24/18at 03:45; Start 11/24/18 at 03:15; Stop 11/24/18 at 03:18; Status DC Iohexol (Omnipaque 300 Mg/ml) 75 ml 1X ONCE IV Last administered on 11/24/18at 04:30; Start 11/24/18 at 03:45; Stop 11/24/18 at 03:46; Status DC Info (CONTRAST GIVEN -- Rx MONITORING) 1 each PRN DAILY PRN MC SEE COMMENTS; Start 11/24/18 at 03:45; Stop 11/26/18 at 03:44; Status DC Benzocaine (Hurricaine One) 1 spray 1X ONCE MM ; Start 11/24/18 at 05:15; Stop 11/24/18 at 05:16; Status DC Morphine Sulfate (Morphine Sulfate) 4 mg 1X ONCE IV Last administered on 11/24/18at 06:03; Start 11/24/18 at 06:00; Stop 11/24/18 at 06:01; Status DC Sodium Chloride 1,000 ml @ 1,000 mls/hr 1X ONCE IV Last administered on 11/24/18at 06:03; Start 11/24/18 at 06:00; Stop 11/24/18 at 06:59; Status DC Morphine Sulfate (Morphine Sulfate) 4 mg PRN Q2HR PRN IV PAIN Last administered on 11/28/18at 08:53; Start 11/24/18 at 06:00 Sodium Chloride 1,000 ml @ 125 mls/hr 1X ONCE IV Last administered on 11/24/18at 08:10; Start 11/24/18 at 06:00; Stop 11/24/18 at 13:59; Status DC Ondansetron HCl (Zofran) 4 mg PRN Q6HRS PRN IV NAUSEA/VOMITING; Start 11/24/18 at 06:00 Piperacillin Sod/ Tazobactam Sod (Zosyn Per Pharmacy) 1 each PRN DAILY PRN MC SEE COMMENTS; Start 11/24/18 at 06:00 Piperacillin Sod/ Tazobactam Sod 3.375 gm/Sodium Chloride 50 ml @ 100 mls/hr 1X ONCE IV Last administered on 11/24/18at 06:53; Start 11/24/18 at 06:15; Stop 11/24/18 at 06:44; Status DC Piperacillin Sod/ Tazobactam Sod 3.375 gm/Sodium Chloride 50 ml @ 100 mls/hr Q6HRS IV Last administered on 11/28/18at 05:14; Start 11/24/18 at 12:00 Pantoprazole Sodium (PROTONIX VIAL for IV PUSH) 40 mg DAILYAC IVP Last administered on 11/25/18at 09:04; Start 11/24/18 at 11:30; Stop 11/25/18 at 11:36; Status DC Insulin Human Lispro (HumaLOG) 0-5 UNITS TIDWMEALS SQ ; Start 11/24/18 at 12:00 Dextrose (Dextrose 50%-Water Syringe) 12.5 gm PRN Q15MIN PRN IV SEE COMMENTS; Start 11/24/18 at 09:45 Amino Acids/ Glycerin/ Electrolytes 1,000 ml @ 50 mls/hr Q20H IV Last administered on 11/27/18at 20:19; Start 11/24/18 at 09:45 Budesonide (Pulmicort) 0.5 mg RTBID NEB Last administered on 11/28/18at 07:49; Start 11/24/18 at 10:00 Albuterol/ Ipratropium (Duoneb) 3 ml RTQID NEB Last administered on 11/28/18at 11:49; Start 11/24/18 at 12:00 Furosemide (Lasix) 40 mg 1X ONCE IVP Last administered on 11/25/18at 04:44; Start 11/25/18 at 05:00; Stop 11/25/18 at 05:01; Status DC Albuterol Sulfate (Ventolin Neb Soln) 2.5 mg PRN Q6HRS PRN NEB SHORTNESS OF BREATH Last administered on 11/28/18at 03:57; Start 11/25/18 at 04:45 Pantoprazole Sodium (PROTONIX VIAL for IV PUSH) 40 mg BIDAC IVP Last administered on 11/28/18at 08:56; Start 11/25/18 at 16:30 Potassium Chloride/Water 100 ml @ 100 mls/hr Q1H IV Last administered on 11/25/18at 16:26; Start 11/25/18 at 13:00; Stop 11/25/18 at 16:59; Status DC Furosemide (Lasix) 20 mg 1X ONCE IVP Last administered on 11/26/18at 00:34; Start 11/26/18 at 01:00; Stop 11/26/18 at 01:01; Status DC Micafungin Sodium 100 mg/Dextrose 100 ml @ 100 mls/hr Q24H IV Last administered on 11/28/18at 09:02; Start 11/26/18 at 09:00 Furosemide (Lasix) 40 mg 1X ONCE IVP Last administered on 11/26/18at 10:33; Start 11/26/18 at 09:15; Stop 11/26/18 at 09:16; Status DC Albumin Human 100 ml @ 100 mls/hr 1X ONCE IV Last administered on 11/26/18at 10:34; Start 11/26/18 at 09:15; Stop 11/26/18 at 10:14; Status DC Metoprolol Tartrate (Lopressor Vial) 5 mg PRN Q6HRS PRN IVP HYPERTENSION, SEE COMMENTS; Start 11/26/18 at 12:00; Stop 11/26/18 at 14:22; Status DC Metoprolol Tartrate (Lopressor Vial) 5 mg Q6HRS IVP Last administered on 11/28/18at 05:14; Start 11/26/18 at 16:00 Furosemide (Lasix) 40 mg DAILY IVP Last administered on 11/28/18at 09:06; Start 11/27/18 at 09:00 Ondansetron HCl (Zofran) 4 mg PRN Q6HRS PRN IV NAUSEA/VOMITING; Start 11/29/18 at 07:00; Stop 11/29/18 at 19:00 Fentanyl Citrate (Fentanyl 2ml Vial) 25 mcg PRN Q5MIN PRN IV MILD PAIN; Start 11/29/18 at 07:00; Stop 11/29/18 at 19:00 Fentanyl Citrate (Fentanyl 2ml Vial) 50 mcg PRN Q5MIN PRN IV MODERATE TO SEVERE PAIN; Start 11/29/18 at 07:00; Stop 11/29/18 at 19:00 Morphine Sulfate (Morphine Sulfate) 1 mg PRN Q10MIN PRN IV SEVERE PAIN; Start 11/29/18 at 07:00; Stop 11/29/18 at 19:00 Ringer's Solution 1,000 ml @ 30 mls/hr Q24H IV ; Start 11/29/18 at 07:00; Stop 11/29/18 at 18:59 Lidocaine HCl (Xylocaine-Mpf 1% 2ml Vial) 2 ml PRN 1X PRN ID PRIOR TO IV START; Start 11/29/18 at 07:00; Stop 11/29/18 at 19:00 Hydromorphone HCl (Dilaudid) 0.5 mg PRN Q10MIN PRN IV SEV PAIN, Second choice; Start 11/29/18 at 07:00; Stop 11/29/18 at 19:00 Prochlorperazine Edisylate (Compazine) 5 mg PACU PRN PRN IV NAUSEA, MRX1; Start 11/29/18 at 07:00; Stop 11/29/18 at 19:00 Levothyroxine Sodium 50 mcg/ Sodium Chloride 5 ml @ 100 mls/hr Q3DAYS IVP ; Start 12/01/18 at 09:00 Potassium Chloride/Water 100 ml @ 100 mls/hr Q1H IV Last administered on 11/27/18at 16:39; Start 11/27/18 at 12:30; Stop 11/27/18 at 16:29; Status DC Active Scripts Active Sertraline Hcl 25 Mg Tablet 50 Mg PO QHS 30 Days Magnesium Chloride 70 Mg Tablet. 64 Mg PO DAILY 30 Days Synthroid (Levothyroxine Sodium) 88 Mcg Tablet 88 Mcg PO DAILY06 30 Days Prednisone 20 Mg Tablet 20 Mg PO DAILY 30 Days Budesonide 0.5 Mg/2 Ml Ampul.neb 0.5 Mg NEB RTBID 30 Days Klor-Con 10 (Potassium Chloride) 10 Meq Tablet.er 1 Tab PO DAILY Lasix (Furosemide) 40 Mg Tablet 1 Tab PO DAILY Aspirin Ec (Aspirin) 81 Mg Tablet.dr 81 Mg PO DAILYWBKFT 30 Days Duoneb 0.5-3(2.5) Mg/3 Ml (Albuterol/Ipratropium) 3 Ml Ampul.neb 3 Ml NEB RTQID 30 Days Diltiazem 24HR Cd (Diltiazem Hcl) 120 Mg Cap.er.24h 120 Mg PO DAILY 30 Days Reported Hydrocodone-Apap 7.5-325 (Hydrocodone Bit/Acetaminophen) 1 Tab Tablet 1 Tab PO PRN Q6HRS PRN Omeprazole 40 Mg Capsule.dr 40 Mg PO DAILY Vitals/I & O Vital Sign - Last 24 Hours 11/27/18 11/27/18 11/27/18 11/27/18 12:45 15:15 15:30 15:46 Temp 98.2 98.2 Pulse 91 Resp 20 B/P (MAP) 126/72 (90) Pulse Ox 95 94 95 95 O2 Delivery Nasal Cannula Nasal Cannula Nasal Cannula Nasal Cannula O2 Flow Rate 3.0 3.0 3.0 3.0 11/27/18 11/27/18 11/27/18 11/27/18 16:33 18:00 19:45 20:00 Temp 98.4 98.4 Pulse 91 95 Resp 20 B/P (MAP) 126/72 123/67 (85) Pulse Ox 95 94 O2 Delivery Nasal Cannula Nasal Cannula O2 Flow Rate 3.0 3.0 11/27/18 11/27/18 11/27/18 11/27/18 20:19 20:29 23:30 23:41 Temp 97.9 97.9 Pulse 90 95 Resp 20 B/P (MAP) 131/75 (93) 123/67 Pulse Ox 95 95 O2 Delivery Nasal Cannula Nasal Cannula Nasal Cannula O2 Flow Rate 3.0 3.0 3.0 11/28/18 11/28/18 11/28/18 11/28/18 03:13 03:45 03:57 03:57 Temp 97.5 97.5 Pulse 88 Resp 21 B/P (MAP) 127/78 (94) Pulse Ox 94 95 O2 Delivery Nasal Cannula Nasal Cannula Nasal Cannula Nasal Cannula O2 Flow Rate 3.0 3.0 3.0 3.0 11/28/18 11/28/18 11/28/18 11/28/18 05:14 07:10 07:50 08:53 Temp 97.7 97.7 Pulse 88 97 Resp 20 B/P (MAP) 127/78 162/65 (97) Pulse Ox 90 86 86 O2 Delivery Nasal Cannula Nasal Cannula Nasal Cannula O2 Flow Rate 3.0 3.0 3.0 11/28/18 11/28/18 10:50 11:50 Temp 98.1 98.1 Pulse 94 Resp 21 B/P (MAP) 127/70 (89) Pulse Ox 92 92 O2 Delivery Nasal Cannula Nasal Cannula O2 Flow Rate 3.0 4.0 Intake and Output 11/27/18 11/27/18 11/28/18 15:00 23:00 07:00 Intake Total 0 ml 0 ml 0 ml Output Total 500 ml 1200 ml 300 ml Balance -500 ml -1200 ml -300 ml Nutrition Consultation Dietary Evaluation: Recommendations by RD: PPN/TPN Comments: continue PPN for short term nutrition Expected Outcomes/Goals: diet adv/ tolerance Malnutrition Findings: Body Fat Depletion (Non Severe: Mild Depletion Weight Status: Underweight KIM REGAN MD Nov 28, 2018 12:41
[2018-11-28 15:12] VITALS: BP 123/78
--- NOTE | 2018-11-28 15:36 | PDOC ---
SURGICAL PROGRESS NOTE Subjective Pt appears fatigued, no flatus Vital Signs Vital Signs Date Time Temp Pulse Resp B/P (MAP) Pulse Ox O2 Delivery O2 Flow Rate FiO2 11/28/18 15:12 98.0 93 20 123/78 (93) 94 Nasal Cannula 3.0 98.0 I&O Intake and Output 11/28/18 06:59 Intake Total 0 ml Output Total 2000 ml Balance -2000 ml Intake Oral 0 ml Output Urine Total 1950 ml Gastric Drainage Total 50 ml General: Alert, Cooperative, mild distress HEENT: Atraumatic Abdomen: Soft, No tenderness, Other (reducible hernia) Labs Laboratory Tests Test 11/26/18 17:08 11/26/18 20:54 11/27/18 07:41 11/27/18 08:00 Glucose (Fingerstick) 68 mg/dL (70-99) 75 mg/dL (70-99) 74 mg/dL (70-99) White Blood Count 12.4 x10^3/uL (4.0-11.0) Red Blood Count 2.94 x10^6/uL (4.30-5.70) Hemoglobin 9.5 g/dL (13.0-17.5) Hematocrit 28.3 % (39.0-53.0) Mean Corpuscular Volume 96 fL (79-100) Mean Corpuscular Hemoglobin 32 pg (25-35) Mean Corpuscular Hemoglobin Concent 34 g/dL (31-37) Red Cell Distribution Width 15.4 % (11.5-14.5) Platelet Count 218 x10^3/uL (140-400) Sodium Level 135 mmol/L (136-145) Potassium Level 3.0 mmol/L (3.5-5.1) Chloride Level 95 mmol/L (98-107) Carbon Dioxide Level 30 mmol/L (21-32) Anion Gap 10 (6-14) Blood Urea Nitrogen 18 mg/dL (8-26) Creatinine 0.8 mg/dL (0.7-1.3) Estimated GFR (Cockcroft-Gault) 94.0 Glucose Level 76 mg/dL (70-99) Calcium Level 8.8 mg/dL (8.5-10.1) Test 11/27/18 11:00 11/27/18 16:49 11/27/18 20:49 11/28/18 04:00 Glucose (Fingerstick) 92 mg/dL (70-99) 72 mg/dL (70-99) 82 mg/dL (70-99) White Blood Count 9.9 x10^3/uL (4.0-11.0) Red Blood Count 2.96 x10^6/uL (4.30-5.70) Hemoglobin 9.3 g/dL (13.0-17.5) Hematocrit 28.7 % (39.0-53.0) Mean Corpuscular Volume 97 fL (79-100) Mean Corpuscular Hemoglobin 31 pg (25-35) Mean Corpuscular Hemoglobin Concent 32 g/dL (31-37) Red Cell Distribution Width 15.5 % (11.5-14.5) Platelet Count 236 x10^3/uL (140-400) Sodium Level 137 mmol/L (136-145) Potassium Level 3.6 mmol/L (3.5-5.1) Chloride Level 97 mmol/L (98-107) Carbon Dioxide Level 30 mmol/L (21-32) Anion Gap 10 (6-14) Blood Urea Nitrogen 18 mg/dL (8-26) Creatinine 0.6 mg/dL (0.7-1.3) Estimated GFR (Cockcroft-Gault) 131.0 Glucose Level 87 mg/dL (70-99) Calcium Level 8.4 mg/dL (8.5-10.1) Free Thyroxine 0.81 ng/dL (0.76-1.46) Test 11/28/18 09:08 11/28/18 11:30 Glucose (Fingerstick) 91 mg/dL (70-99) 93 mg/dL (70-99) Laboratory Tests Test 11/27/18 16:49 11/27/18 20:49 11/28/18 04:00 11/28/18 09:08 Glucose (Fingerstick) 72 mg/dL (70-99) 82 mg/dL (70-99) 91 mg/dL (70-99) White Blood Count 9.9 x10^3/uL (4.0-11.0) Red Blood Count 2.96 x10^6/uL (4.30-5.70) Hemoglobin 9.3 g/dL (13.0-17.5) Hematocrit 28.7 % (39.0-53.0) Mean Corpuscular Volume 97 fL (79-100) Mean Corpuscular Hemoglobin 31 pg (25-35) Mean Corpuscular Hemoglobin Concent 32 g/dL (31-37) Red Cell Distribution Width 15.5 % (11.5-14.5) Platelet Count 236 x10^3/uL (140-400) Sodium Level 137 mmol/L (136-145) Potassium Level 3.6 mmol/L (3.5-5.1) Chloride Level 97 mmol/L (98-107) Carbon Dioxide Level 30 mmol/L (21-32) Anion Gap 10 (6-14) Blood Urea Nitrogen 18 mg/dL (8-26) Creatinine 0.6 mg/dL (0.7-1.3) Estimated GFR (Cockcroft-Gault) 131.0 Glucose Level 87 mg/dL (70-99) Calcium Level 8.4 mg/dL (8.5-10.1) Free Thyroxine 0.81 ng/dL (0.76-1.46) Test 11/28/18 11:30 Glucose (Fingerstick) 93 mg/dL (70-99) I have reviewed the following KUB with some improvement Problem List Problems Medical Problems: (1) Pneumonia Status: Acute Assessment/Plan SBO cont NGT some improvement will d/w Dr. Neal with regards to OR vs other interventions. MIKAELA TABARES MD Nov 28, 2018 15:36
--- NOTE | 2018-11-28 16:33 | PDOC ---
PULMONARY PROGRESS NOTES Vitals Vital Signs Date Time Temp Pulse Resp B/P (MAP) Pulse Ox O2 Delivery O2 Flow Rate FiO2 11/28/18 16:00 94 Nasal Cannula 4.0 11/28/18 15:12 98.0 93 20 123/78 (93) 98.0 General: Alert, No acute distress HEENT: Other Lungs: Crackles Cardiovascular: S1, S2 Abdomen: Soft, Non-tender, Other Extremities: No Edema, Other Labs Laboratory Tests Test 11/26/18 17:08 11/26/18 20:54 11/27/18 07:41 11/27/18 08:00 Glucose (Fingerstick) 68 mg/dL (70-99) 75 mg/dL (70-99) 74 mg/dL (70-99) White Blood Count 12.4 x10^3/uL (4.0-11.0) Red Blood Count 2.94 x10^6/uL (4.30-5.70) Hemoglobin 9.5 g/dL (13.0-17.5) Hematocrit 28.3 % (39.0-53.0) Mean Corpuscular Volume 96 fL (79-100) Mean Corpuscular Hemoglobin 32 pg (25-35) Mean Corpuscular Hemoglobin Concent 34 g/dL (31-37) Red Cell Distribution Width 15.4 % (11.5-14.5) Platelet Count 218 x10^3/uL (140-400) Sodium Level 135 mmol/L (136-145) Potassium Level 3.0 mmol/L (3.5-5.1) Chloride Level 95 mmol/L (98-107) Carbon Dioxide Level 30 mmol/L (21-32) Anion Gap 10 (6-14) Blood Urea Nitrogen 18 mg/dL (8-26) Creatinine 0.8 mg/dL (0.7-1.3) Estimated GFR (Cockcroft-Gault) 94.0 Glucose Level 76 mg/dL (70-99) Calcium Level 8.8 mg/dL (8.5-10.1) Test 11/27/18 11:00 11/27/18 16:49 11/27/18 20:49 11/28/18 04:00 Glucose (Fingerstick) 92 mg/dL (70-99) 72 mg/dL (70-99) 82 mg/dL (70-99) White Blood Count 9.9 x10^3/uL (4.0-11.0) Red Blood Count 2.96 x10^6/uL (4.30-5.70) Hemoglobin 9.3 g/dL (13.0-17.5) Hematocrit 28.7 % (39.0-53.0) Mean Corpuscular Volume 97 fL (79-100) Mean Corpuscular Hemoglobin 31 pg (25-35) Mean Corpuscular Hemoglobin Concent 32 g/dL (31-37) Red Cell Distribution Width 15.5 % (11.5-14.5) Platelet Count 236 x10^3/uL (140-400) Sodium Level 137 mmol/L (136-145) Potassium Level 3.6 mmol/L (3.5-5.1) Chloride Level 97 mmol/L (98-107) Carbon Dioxide Level 30 mmol/L (21-32) Anion Gap 10 (6-14) Blood Urea Nitrogen 18 mg/dL (8-26) Creatinine 0.6 mg/dL (0.7-1.3) Estimated GFR (Cockcroft-Gault) 131.0 Glucose Level 87 mg/dL (70-99) Calcium Level 8.4 mg/dL (8.5-10.1) Free Thyroxine 0.81 ng/dL (0.76-1.46) Test 11/28/18 09:08 11/28/18 11:30 Glucose (Fingerstick) 91 mg/dL (70-99) 93 mg/dL (70-99) Laboratory Tests Test 11/27/18 16:49 11/27/18 20:49 11/28/18 04:00 11/28/18 09:08 Glucose (Fingerstick) 72 mg/dL (70-99) 82 mg/dL (70-99) 91 mg/dL (70-99) White Blood Count 9.9 x10^3/uL (4.0-11.0) Red Blood Count 2.96 x10^6/uL (4.30-5.70) Hemoglobin 9.3 g/dL (13.0-17.5) Hematocrit 28.7 % (39.0-53.0) Mean Corpuscular Volume 97 fL (79-100) Mean Corpuscular Hemoglobin 31 pg (25-35) Mean Corpuscular Hemoglobin Concent 32 g/dL (31-37) Red Cell Distribution Width 15.5 % (11.5-14.5) Platelet Count 236 x10^3/uL (140-400) Sodium Level 137 mmol/L (136-145) Potassium Level 3.6 mmol/L (3.5-5.1) Chloride Level 97 mmol/L (98-107) Carbon Dioxide Level 30 mmol/L (21-32) Anion Gap 10 (6-14) Blood Urea Nitrogen 18 mg/dL (8-26) Creatinine 0.6 mg/dL (0.7-1.3) Estimated GFR (Cockcroft-Gault) 131.0 Glucose Level 87 mg/dL (70-99) Calcium Level 8.4 mg/dL (8.5-10.1) Free Thyroxine 0.81 ng/dL (0.76-1.46) Test 11/28/18 11:30 Glucose (Fingerstick) 93 mg/dL (70-99) Medications Active Scripts Medications Dose Route/Sig Max Daily Dose Days Date Category Sertraline Hcl 25 Mg Tablet 50 Mg PO QHS 30 10/01/18 Rx Magnesium Chloride 70 Mg Tablet. 64 Mg PO DAILY 30 08/30/18 Rx Synthroid (Levothyroxine Sodium) 88 Mcg Tablet 88 Mcg PO DAILY06 08/30/18 Rx Prednisone 20 Mg Tablet 20 Mg PO DAILY 08/30/18 Rx Budesonide 0.5 Mg/2 Ml Ampul.neb 0.5 Mg NEB RTBID 30 08/30/18 Rx Hydrocodone-Apap 7.5-325 (Hydrocodone Bit/Acetaminophen) 1 Tab Tablet 1 Tab PO PRN Q6HRS PRN 08/26/18 Reported Omeprazole 40 Mg Capsule. 40 Mg PO DAILY 08/26/18 Reported Klor-Con 10 (Potassium Chloride) 10 Meq Tablet.er 1 Tab PO DAILY 07/16/18 Rx Lasix (Furosemide) 40 Mg Tablet 1 Tab PO DAILY 07/16/18 Rx Aspirin Ec (Aspirin) 81 Mg Tablet. 81 Mg PO DAILYWBKFT 30 07/16/18 Rx Duoneb 0.5-3(2.5) Mg/3 Ml (Albuterol/Ipratropium) 3 Ml Ampul.neb 3 Ml NEB RTQID 30 18 Rx Diltiazem 24HR Cd (Diltiazem Hcl) 120 Mg Cap.er.24h 120 Mg PO DAILY 07/01/18 Rx Impression . note dictatate ABNORMAL CXR/EDEMA/ASPIRATION SEE ORDERS POOR [employer]GICAL CANDIDATE JON EDWARDS MD Nov 28, 2018 16:33
[2018-11-28] MEDS: AMINO AC 3%/ELECTROLYTE/GLYCER 1,000 ML IV SCH (17:44)
[2018-11-28] MEDS: methylPREDNISolone SOD SUCC PF 125 MG/2 ML VIAL. IV SCH ×2 (17:46→21:10)
[2018-11-28 19:00] VITALS: BP 143/82
[2018-11-28 23:00] VITALS: BP 117/59
[2018-11-29] MEDS: PIPERACILLIN/TAZOBACTAM 3.375 GM in IV NORMAL SALINE 50ML 50 ML IV SCH ×5 (00:25→23:39)
[2018-11-29] MEDS: MORPHINE SULFATE 4 MG/ML VIAL. IV PRN ×8 (00:26→23:39)
[2018-11-29 03:00] VITALS: BP 122/69
[2018-11-29] MEDS: METOPROLOL TARTRATE 5 MG/5 ML VIAL. IVP SCH ×4 (04:53→18:00)
[2018-11-29] MEDS: methylPREDNISolone SOD SUCC PF 125 MG/2 ML VIAL. IV SCH ×3 (05:19→20:23)
[2018-11-29 05:47] LABS: CALCIUM 8.8 mg/dL (8.5-10.1); CREATININE 0.7 mg/dL (0.7-1.3); GFR 109.6
[2018-11-29 05:57] LABS: POTASSIUM 2.8 mmol/L (3.5-5.1)
[2018-11-29 07:00] VITALS: BP 136/71
[2018-11-29] MEDS ORDERED: IV RINGERS,LACTATED 1000ML 1,000 ML IV SCH (07:00)
[2018-11-29] MEDS ORDERED: MORPHINE SULFATE 2 MG/ML VIAL. IV PRN (07:00)
[2018-11-29] MEDS ORDERED: PROCHLORPERAZINE 10 MG/2 ML VIAL. IV PRN (07:00)
[2018-11-29] MEDS ORDERED: LIDOCAINE 1% PF 2 ML VIAL. ID PRN (07:00)
[2018-11-29] MEDS ORDERED: ONDANSETRON PF 4 MG/2 ML VIAL. IV PRN (07:00)
[2018-11-29] MEDS ORDERED: HYDROmorphone 2 MG/ML VIAL IV PRN (07:00)
[2018-11-29] MEDS ORDERED: fentaNYL PF VIAL 100 MCG/2 ML VIAL IV PRN ×2 (07:00)
[2018-11-29] MEDS: IPRATRPIUM/ALBUTEROL 0.5/2.5MG 3 ML NEBU. NEB SCH ×4 (07:51→19:41)
[2018-11-29] MEDS: BUDESONIDE 0.5 MG/2 ML NEBU. NEB SCH ×2 (07:51→19:41)
[2018-11-29] MEDS: INSULIN LISPRO 300 UNITS/3 ML INSULN.PEN. SQ SCH ×3 (08:00→17:00)
[2018-11-29] MEDS: PANTOPRAZOLE IV PUSH 40 MG VIAL. IVP SCH ×2 (08:06→17:34)
[2018-11-29] MEDS: POTASSIUM CHLORIDE 10MEQ 100 ML IV SCH ×4 (08:08→14:30)
--- NOTE | 2018-11-29 08:48 | RAD ---
Portable chest, 11/29/2018: HISTORY: Infiltrates Comparison is made to a study from 11/27/2018. An NG tube remains in place extending into the proximal aspect of the stomach. A sidehole lies near the level of the GE junction. The heart size is unchanged. There are moderate patchy bilateral pulmonary infiltrates similar to those seen on the previous exam. No definite pleural fluid or pneumothorax is seen. There is mild gaseous distention of a small bowel loop in the left upper quadrant. IMPRESSION: Unchanged moderate bilateral pulmonary infiltrates. Electronically signed by: Paulo Sanchez MD (11/29/2018 8:45 AM) [facility]
--- NOTE | 2018-11-29 08:59 | PDOC ---
REMBERTO [employer]ON [employer] 11/29/18 0859: SURGICAL PROGRESS NOTE Subjective feels ok, not much pain had small stool this AM Vital Signs Vital Signs Date Time Temp Pulse Resp B/P (MAP) Pulse Ox O2 Delivery O2 Flow Rate FiO2 11/29/18 08:15 19 96 Nasal Cannula 5.0 11/29/18 07:00 96.3 65 136/71 (92) 96.3 I&O Intake and Output 11/29/18 07:00 Intake Total 0 ml Output Total 1550 ml Balance -1550 ml Intake Oral 0 ml Output Urine Total 1450 ml Gastric Drainage Total 100 ml General: Alert, Oriented X3, Cooperative, No acute distress HEENT: Other (NG bilious ) Abdomen: Soft Labs Laboratory Tests Test 11/27/18 11:00 11/27/18 16:49 11/27/18 20:49 11/28/18 04:00 Glucose (Fingerstick) 92 mg/dL (70-99) 72 mg/dL (70-99) 82 mg/dL (70-99) White Blood Count 9.9 x10^3/uL (4.0-11.0) Red Blood Count 2.96 x10^6/uL (4.30-5.70) Hemoglobin 9.3 g/dL (13.0-17.5) Hematocrit 28.7 % (39.0-53.0) Mean Corpuscular Volume 97 fL (79-100) Mean Corpuscular Hemoglobin 31 pg (25-35) Mean Corpuscular Hemoglobin Concent 32 g/dL (31-37) Red Cell Distribution Width 15.5 % (11.5-14.5) Platelet Count 236 x10^3/uL (140-400) Sodium Level 137 mmol/L (136-145) Potassium Level 3.6 mmol/L (3.5-5.1) Chloride Level 97 mmol/L (98-107) Carbon Dioxide Level 30 mmol/L (21-32) Anion Gap 10 (6-14) Blood Urea Nitrogen 18 mg/dL (8-26) Creatinine 0.6 mg/dL (0.7-1.3) Estimated GFR (Cockcroft-Gault) 131.0 Glucose Level 87 mg/dL (70-99) Calcium Level 8.4 mg/dL (8.5-10.1) Free Thyroxine 0.81 ng/dL (0.76-1.46) Test 11/28/18 09:08 11/28/18 11:30 11/28/18 16:41 11/28/18 17:19 Glucose (Fingerstick) 91 mg/dL (70-99) 93 mg/dL (70-99) 67 mg/dL (70-99) 132 mg/dL (70-99) Test 11/28/18 20:37 11/29/18 03:55 11/29/18 07:49 Glucose (Fingerstick) 115 mg/dL (70-99) 164 mg/dL (70-99) Sodium Level 139 mmol/L (136-145) Potassium Level 2.8 mmol/L (3.5-5.1) Chloride Level 97 mmol/L (98-107) Carbon Dioxide Level 31 mmol/L (21-32) Anion Gap 11 (6-14) Blood Urea Nitrogen 20 mg/dL (8-26) Creatinine 0.7 mg/dL (0.7-1.3) Estimated GFR (Cockcroft-Gault) 109.6 Glucose Level 190 mg/dL (70-99) Calcium Level 8.8 mg/dL (8.5-10.1) Laboratory Tests Test 11/28/18 09:08 11/28/18 11:30 11/28/18 16:41 11/28/18 17:19 Glucose (Fingerstick) 91 mg/dL (70-99) 93 mg/dL (70-99) 67 mg/dL (70-99) 132 mg/dL (70-99) Test 11/28/18 20:37 11/29/18 03:55 11/29/18 07:49 Glucose (Fingerstick) 115 mg/dL (70-99) 164 mg/dL (70-99) Sodium Level 139 mmol/L (136-145) Potassium Level 2.8 mmol/L (3.5-5.1) Chloride Level 97 mmol/L (98-107) Carbon Dioxide Level 31 mmol/L (21-32) Anion Gap 11 (6-14) Blood Urea Nitrogen 20 mg/dL (8-26) Creatinine 0.7 mg/dL (0.7-1.3) Estimated GFR (Cockcroft-Gault) 109.6 Glucose Level 190 mg/dL (70-99) Calcium Level 8.8 mg/dL (8.5-10.1) Problem List Problems Medical Problems: (1) Pneumonia Status: Acute Assessment/Plan will have Dr Ángel KEE regarding plans SHAKEEL SOMMER MD 11/29/18 1157: SURGICAL PROGRESS NOTE Assessment/Plan pt seen and examined I explained that he has an active pulmonary process I that I don't think it's a good idea for surgery will ask for PICC and TPN continue follow consider SBFT [employer]BRETO [employer] Nov 29, 2018 08:59 SHAKEEL SOMMER MD Nov 29, 2018 11:57
--- NOTE | 2018-11-29 09:32 | PDOC ---
PULMONARY PROGRESS NOTES Subjective PT STILL SOA AND COUGHING Vitals Vital Signs Date Time Temp Pulse Resp B/P (MAP) Pulse Ox O2 Delivery O2 Flow Rate FiO2 11/29/18 08:15 19 96 Nasal Cannula 5.0 11/29/18 07:00 96.3 65 136/71 (92) 96.3 ROS: No Nausea, No Chest Pain, No Increase Cough General: Alert HEENT: Other Lungs: Crackles Cardiovascular: S1, S2 Abdomen: Soft, Non-tender, Other Neuro Exam: Alert Extremities: No Edema, Other Labs Laboratory Tests Test 11/27/18 11:00 11/27/18 16:49 11/27/18 20:49 11/28/18 04:00 Glucose (Fingerstick) 92 mg/dL (70-99) 72 mg/dL (70-99) 82 mg/dL (70-99) White Blood Count 9.9 x10^3/uL (4.0-11.0) Red Blood Count 2.96 x10^6/uL (4.30-5.70) Hemoglobin 9.3 g/dL (13.0-17.5) Hematocrit 28.7 % (39.0-53.0) Mean Corpuscular Volume 97 fL (79-100) Mean Corpuscular Hemoglobin 31 pg (25-35) Mean Corpuscular Hemoglobin Concent 32 g/dL (31-37) Red Cell Distribution Width 15.5 % (11.5-14.5) Platelet Count 236 x10^3/uL (140-400) Sodium Level 137 mmol/L (136-145) Potassium Level 3.6 mmol/L (3.5-5.1) Chloride Level 97 mmol/L (98-107) Carbon Dioxide Level 30 mmol/L (21-32) Anion Gap 10 (6-14) Blood Urea Nitrogen 18 mg/dL (8-26) Creatinine 0.6 mg/dL (0.7-1.3) Estimated GFR (Cockcroft-Gault) 131.0 Glucose Level 87 mg/dL (70-99) Calcium Level 8.4 mg/dL (8.5-10.1) Free Thyroxine 0.81 ng/dL (0.76-1.46) Test 11/28/18 09:08 11/28/18 11:30 4/28/19 16:41 11/28/18 17:19 Glucose (Fingerstick) 91 mg/dL (70-99) 93 mg/dL (70-99) 67 mg/dL (70-99) 132 mg/dL (70-99) Test 11/28/18 20:37 11/29/18 03:55 11/29/18 07:49 Glucose (Fingerstick) 115 mg/dL (70-99) 164 mg/dL (70-99) Sodium Level 139 mmol/L (136-145) Potassium Level 2.8 mmol/L (3.5-5.1) Chloride Level 97 mmol/L (98-107) Carbon Dioxide Level 31 mmol/L (21-32) Anion Gap 11 (6-14) Blood Urea Nitrogen 20 mg/dL (8-26) Creatinine 0.7 mg/dL (0.7-1.3) Estimated GFR (Cockcroft-Gault) 109.6 Glucose Level 190 mg/dL (70-99) Calcium Level 8.8 mg/dL (8.5-10.1) Laboratory Tests Test 11/28/18 11:30 11/28/18 16:41 11/28/18 17:19 11/28/18 20:37 Glucose (Fingerstick) 93 mg/dL (70-99) 67 mg/dL (70-99) 132 mg/dL (70-99) 115 mg/dL (70-99) Test 11/29/18 03:55 11/29/18 07:49 Sodium Level 139 mmol/L (136-145) Potassium Level 2.8 mmol/L (3.5-5.1) Chloride Level 97 mmol/L (98-107) Carbon Dioxide Level 31 mmol/L (21-32) Anion Gap 11 (6-14) Blood Urea Nitrogen 20 mg/dL (8-26) Creatinine 0.7 mg/dL (0.7-1.3) Estimated GFR (Cockcroft-Gault) 109.6 Glucose Level 190 mg/dL (70-99) Calcium Level 8.8 mg/dL (8.5-10.1) Glucose (Fingerstick) 164 mg/dL (70-99) Medications Active Scripts Medications Dose Route/Sig Max Daily Dose Days Date Category Sertraline Hcl 25 Mg Tablet 50 Mg PO QHS 30 10/01/18 Rx Magnesium Chloride 70 Mg Tablet. 64 Mg PO DAILY 30 08/30/18 Rx Synthroid (Levothyroxine Sodium) 88 Mcg Tablet 88 Mcg PO DAILY06 08/30/18 Rx Prednisone 20 Mg Tablet 20 Mg PO DAILY 08/30/18 Rx Budesonide 0.5 Mg/2 Ml Ampul.neb 0.5 Mg NEB RTBID 08/30/18 Rx Hydrocodone-Apap 7.5-325 (Hydrocodone Bit/Acetaminophen) 1 Tab Tablet 1 Tab PO PRN Q6HRS PRN 08/26/18 Reported Omeprazole 40 Mg Capsule. 40 Mg PO DAILY 08/26/18 Reported Klor-Con 10 (Potassium Chloride) 10 Meq Tablet.er 1 Tab PO DAILY 07/16/18 Rx Lasix (Furosemide) 40 Mg Tablet 1 Tab PO DAILY 07/16/18 Rx Aspirin Ec (Aspirin) 81 Mg Tablet. 81 Mg PO DAILYWBKFT 30 07/16/18 Rx Duoneb 0.5-3(2.5) Mg/3 Ml (Albuterol/Ipratropium) 3 Ml Ampul.neb 3 Ml NEB RTQID 30 07/01/18 Rx Diltiazem 24HR Cd (Diltiazem Hcl) 120 Mg Cap.er.24h 120 Mg PO DAILY 07/01/18 Rx Impression . IMPRESSION: 1. Acute hypoxemic respiratory failure. 2. Abnormal x-ray compatible with bilateral pulmonary infiltrates, suspect combination of pulmonary edema, pulmonary fibrosis, and acute lung injury from possible aspiration. 3. Aspiration pneumonia. 4. Small-bowel obstruction. 5. Dysphagia. 6. Leukocytosis. 7. Bacteremia. 8. Atrial fibrillation. 9. Xylpp-pa-utekixg heart failure. Plan . CONTINUE SUPPORT 1. We will continue current support. 2. The patient is a poor surgical candidate, suspect he may require prolonged ventilatory support. 3. Continue antibiotics. 4. We will add steroids. 5. Diurese. 6. Follow clinical course. JON EDWARDS MD Nov 29, 2018 09:32
[2018-11-29] MEDS: FUROSEMIDE 40 MG/4 ML VIAL. IVP SCH (10:16)
[2018-11-29 11:00] VITALS: BP 104/66
--- NOTE | 2018-11-29 12:15 | PDOC ---
Infectious Disease Note Subjective Subjective feeling better, had BM ROS ROS no n/v/d/pain Vital Sign Vital Signs Vital Signs Date Time Temp Pulse Resp B/P (MAP) Pulse Ox O2 Delivery O2 Flow Rate FiO2 11/29/18 12:07 19 92 Nasal Cannula 4.0 11/29/18 11:00 97.6 50 104/66 (79) 97.6 Physical Exam PHYSICAL EXAM GENERAL: Propped up in bed, weak appearing, HEENT: Ecchymosis about his left eye. Oral cavity and pharynx w/ dried secretions, NGT to LIWS NECK: Supple, no JVD. LUNGS: + rhonchi. Nonlabored HEART: S1, S2. ABDOMEN: Mildly distended, soft, NT, decreased bowel sounds. EXTREMITIES: Without clubbing or cyanosis. 2+ edema lower extremities, bilaterally NEUROLOGIC: Sleepy, answering questions appropriately SKIN: Without generalized signs of rash. PIV ok Labs Lab Laboratory Tests Test 11/28/18 16:41 11/28/18 17:19 11/28/18 20:37 11/29/18 03:55 Glucose (Fingerstick) 67 mg/dL (70-99) 132 mg/dL (70-99) 115 mg/dL (70-99) Sodium Level 139 mmol/L (136-145) Potassium Level 2.8 mmol/L (3.5-5.1) Chloride Level 97 mmol/L (98-107) Carbon Dioxide Level 31 mmol/L (21-32) Anion Gap 11 (6-14) Blood Urea Nitrogen 20 mg/dL (8-26) Creatinine 0.7 mg/dL (0.7-1.3) Estimated GFR (Cockcroft-Gault) 109.6 Glucose Level 190 mg/dL (70-99) Calcium Level 8.8 mg/dL (8.5-10.1) Test 11/29/18 07:49 11/29/18 10:48 Glucose (Fingerstick) 164 mg/dL (70-99) 182 mg/dL (70-99) Micro BLOOD CULTURE LC Preliminary Preliminary report BLD CULT RESULT 1 Preliminary Comment Streptococcus salivarius group Performed at: - [facility] [address], [place], [place] [id number] [employer] Operator: ANGELES Camargo MD, Phone: [phone] Objective Assessment Bacteremia from 11/24 - (gram neg coccobacilli in 1/4 bottles) Strep spp SBO Leukocytosis - better ? thrush AFib CHF Plan Plan of Care Cont Zosyn and micafungin f/u cultures Monitor labs Oral care Maintain aspiration precautions Surgery possibly on 11/29 Supportive care HOLLY MCKEON MD Nov 29, 2018 12:15
--- NOTE | 2018-11-29 12:31 | CONS ---
DATE OF CONSULTATION: 11/28/2018 ATTENDING PHYSICIAN: Dr. Marvel Ho. REASON FOR CONSULTATION: The patient is seen in pulmonary consultation at the request of Dr. Shell for abnormal x-ray, increasing shortness of air. HISTORY OF PRESENT ILLNESS: The patient is a 78-year-old male with history of chronic obstructive lung disease, interstitial lung disease, pulmonary fibrosis, presented on 11/24/2018, complained of vomiting, decreased oral intake with increased abdominal distention. He is currently being treated for small-bowel obstruction. He had a CT abdomen and pelvis showing severe dilatation of the proximal small bowel loop as well as the stomach and esophagus. He has had a previous abnormal CT chest and chest x-ray revealing some interstitial lung disease and pulmonary fibrosis. Over the last several days, he has been more short of breath. His x-ray revealed bilateral infiltrates with lower atelectasis, infiltrates and effusion. I was asked to see him in consultation. He is currently on Zosyn. He has been followed by Infectious Disease Service. He was seen by the surgical team today. Continued on NG suctioning. The patient is currently also receiving some furosemide. I spoke with the nurse, he has not had any emesis over the last 2 days, his cough is very weak. It is certainly possible that he is aspirating. PAST MEDICAL HISTORY: Otherwise remarkable for previous respiratory failure secondary to interstitial lung disease, pulmonary fibrosis. He has a history of prostate cancer, COPD, hepatitis C. PAST SURGICAL HISTORY: Previous surgery for prostate cancer. ALLERGIES: No known drug allergies. CURRENT MEDICATIONS: List was reviewed. REVIEW OF SYSTEMS: As indicated in the history of present illness, otherwise other systems were reviewed and negative. ALLERGIES: No known drug allergies. PHYSICAL EXAMINATION: GENERAL: The patient appeared to be chronically ill. VITAL SIGNS: O2 saturation currently on 4 liters greater than 92%. HEENT: Eyes, the sclerae were nonicteric. NECK: Jugular venous distention was not elevated. No lymphadenopathy. CHEST: Full expansion. LUNGS: Crackles in the bases. No wheezes. CARDIOVASCULAR: Regular rate and rhythm with S1, S2, no S3. ABDOMEN: Soft, nontender, nondistended. EXTREMITIES: No clubbing, cyanosis or edema. NEUROLOGIC: The patient was awake, alert, following commands. A detailed neuro exam was not performed. LABORATORY DATA: White count was initially elevated, currently 9.9. Electrolytes were noted. Chest x-ray once again revealing bilateral infiltrates in the lower bases along with effusions, vascular congestion. IMPRESSION: 1. Acute hypoxemic respiratory failure. 2. Abnormal x-ray compatible with bilateral pulmonary infiltrates, suspect combination of pulmonary edema, pulmonary fibrosis, and acute lung injury from possible aspiration. 3. Aspiration pneumonia. 4. Small-bowel obstruction. 5. Dysphagia. 6. Leukocytosis. 7. Bacteremia. 8. Atrial fibrillation. 9. Qaplt-bv-ndxcola heart failure. PLAN: 1. We will continue current support. 2. The patient is a poor surgical candidate, suspect he may require prolonged ventilatory support. 3. Continue antibiotics. 4. We will add steroids. 5. Diurese. 6. Follow clinical course. I do appreciate the privilege in sharing in the patient's care. JON EDWARDS MD DR: MOSHE/ralph JOB#: [id number] / [id number]
--- NOTE | 2018-11-29 12:53 | PDOC ---
Subjective: Subjective: "Tender" - tells me he stooled, then upset that I asked and told me to go ask someone else. Objective: Objective: Reviewed surg and pulm notes - poor surgical candidate. Vital Signs: Vital Signs Date Time Temp Pulse Resp B/P (MAP) Pulse Ox O2 Delivery O2 Flow Rate FiO2 11/29/18 12:07 19 92 Nasal Cannula 4.0 11/29/18 11:00 97.6 50 104/66 (79) 97.6 Labs: Laboratory Tests Test 11/28/18 16:41 11/28/18 17:19 11/28/18 20:37 11/29/18 03:55 Glucose (Fingerstick) 67 mg/dL 132 mg/dL 115 mg/dL Sodium Level 139 mmol/L Potassium Level 2.8 mmol/L Chloride Level 97 mmol/L Carbon Dioxide Level 31 mmol/L Anion Gap 11 Blood Urea Nitrogen 20 mg/dL Creatinine 0.7 mg/dL Estimated GFR (Cockcroft-Gault) 109.6 Glucose Level 190 mg/dL Calcium Level 8.8 mg/dL Test 11/29/18 07:49 11/29/18 10:48 Glucose (Fingerstick) 164 mg/dL 182 mg/dL PE: GEN: ill HEENT: NG bilious ~600 in canister LUNGS: NC ABD: less distended than when admitted, quiet, mildly tender NEURO/PSYCH: was asleep holding urinal A/P: Recurrent SBO, resp failure ACD - stable, on IV PPI -- Difficult situation, continue current treatment. TIO ACEVEDO Nov 29, 2018 12:53
--- NOTE | 2018-11-29 13:12 | PDOC ---
CARDIO Progress Notes Date and Time Date of Service 11/29/18 Time of Evaluation 1240 Subjective Subjective: No Chest Pain, No Palpitations, Other (Mild SOA) Comments: has formed small stool Vitals Vitals Vital Signs Date Time Temp Pulse Resp B/P (MAP) Pulse Ox O2 Delivery O2 Flow Rate FiO2 11/29/18 12:07 19 92 Nasal Cannula 4.0 11/29/18 11:00 97.6 50 104/66 (79) 97.6 Weight Weight [ ] Input and Output Intake and Output Intake and Output 11/29/18 07:00 Intake Total 0 ml Output Total 1550 ml Balance -1550 ml Intake Oral 0 ml Output Urine Total 1450 ml Gastric Drainage Total 100 ml Laboratory Labs Laboratory Tests Test 11/28/18 16:41 11/28/18 17:19 11/28/18 20:37 11/29/18 03:55 Glucose (Fingerstick) 67 mg/dL (70-99) 132 mg/dL (70-99) 115 mg/dL (70-99) Sodium Level 139 mmol/L (136-145) Potassium Level 2.8 mmol/L (3.5-5.1) Chloride Level 97 mmol/L (98-107) Carbon Dioxide Level 31 mmol/L (21-32) Anion Gap 11 (6-14) Blood Urea Nitrogen 20 mg/dL (8-26) Creatinine 0.7 mg/dL (0.7-1.3) Estimated GFR (Cockcroft-Gault) 109.6 Glucose Level 190 mg/dL (70-99) Calcium Level 8.8 mg/dL (8.5-10.1) Test 11/29/18 07:49 11/29/18 10:48 Glucose (Fingerstick) 164 mg/dL (70-99) 182 mg/dL (70-99) Microbiology Micro Microbiology 11/24/18 Blood Culture - Preliminary, Resulted 11/24/18 Blood Culture Result 1 (ATA) - Preliminary, Resulted Physical Exam HEENT: Neck Supple W Full Motion Chest: Symmetric LUNGS: Other (bibasilar crackles) Heart: S1S2, RRR Abdomen: Other (no significant tenderness) Extremities: Other (trace LE edema ) Neurology: alert, follow commands, other (flat affect) Assessment Assessment 1. SBO, recurrent. Passing formed stool. 2. Acute respiratory failure; multifactorial in setting of a/c HF, IDL, and PNA 2. Acute on chronic diastolic HF; Recent echo with preserved LV systolic function. 3. PAFIB; maintaining SR. On Cardizem at home for rate control 4. Bacteremia; antibiotic therapy as per ID 5. Hypertension: controlled 6. Hyperlipidemia 7. COPD/ILD 8. Hypothyroidism Recommendations Mild diuresis Metoprolol IV q6 while NPO for rate control Follow GI and surgery recs Resume ASA, statin when able to take PO Supportive care JOSE HIGHTOWER APRN Nov 29, 2018 13:12
--- NOTE | 2018-11-29 13:29 | PDOC ---
PROGRESS NOTES Subjective Subjective Patient having formed BM's Patient very weak and cannot get out of bed. Patient refusing Small Bowel Follow threw. Objective Objective Vital Signs Date Time Temp Pulse Resp B/P (MAP) Pulse Ox O2 Delivery O2 Flow Rate FiO2 11/29/18 12:07 19 92 Nasal Cannula 4.0 11/29/18 11:00 97.6 50 104/66 (79) 97.6 Intake and Output 11/29/18 07:00 Intake Total 0 ml Output Total 1550 ml Balance -1550 ml Intake Oral 0 ml Output Urine Total 1450 ml Gastric Drainage Total 100 ml Physical Exam Abdomen: Other (Min BS notes less distention today) Heart: Regular rate Extremities: No edema General: Alert Lungs: Clear to auscultation Assessment Assessment Problems Medical Problems: (1) Pneumonia Status: Acute CHF + blood Clx SBO esophagitis possible GI bleed aspiration pneumonia anemia hyperglycemia CAD old compression fractures of spine contusion left eye from recent fall Hx of afib Pulm Fibrosis Severe protein malnutrition Plan Plan of Care Picc line with TPN TPN planned continue Pulm Care Proceed with PT/OT as able Comment Review of Relevant I have reviewed the following items sherine (where applicable) has been applied. Labs Laboratory Tests Test 11/27/18 16:49 11/27/18 20:49 11/28/18 04:00 11/28/18 09:08 Glucose (Fingerstick) 72 mg/dL (70-99) 82 mg/dL (70-99) 91 mg/dL (70-99) White Blood Count 9.9 x10^3/uL (4.0-11.0) Red Blood Count 2.96 x10^6/uL (4.30-5.70) Hemoglobin 9.3 g/dL (13.0-17.5) Hematocrit 28.7 % (39.0-53.0) Mean Corpuscular Volume 97 fL (79-100) Mean Corpuscular Hemoglobin 31 pg (25-35) Mean Corpuscular Hemoglobin Concent 32 g/dL (31-37) Red Cell Distribution Width 15.5 % (11.5-14.5) Platelet Count 236 x10^3/uL (140-400) Sodium Level 137 mmol/L (136-145) Potassium Level 3.6 mmol/L (3.5-5.1) Chloride Level 97 mmol/L (98-107) Carbon Dioxide Level 30 mmol/L (21-32) Anion Gap 10 (6-14) Blood Urea Nitrogen 18 mg/dL (8-26) Creatinine 0.6 mg/dL (0.7-1.3) Estimated GFR (Cockcroft-Gault) 131.0 Glucose Level 87 mg/dL (70-99) Calcium Level 8.4 mg/dL (8.5-10.1) Free Thyroxine 0.81 ng/dL (0.76-1.46) Test 11/28/18 11:30 11/28/18 16:41 11/28/18 17:19 11/28/18 20:37 Glucose (Fingerstick) 93 mg/dL (70-99) 67 mg/dL (70-99) 132 mg/dL (70-99) 115 mg/dL (70-99) Test 11/29/18 03:55 11/29/18 07:49 11/29/18 10:48 Sodium Level 139 mmol/L (136-145) Potassium Level 2.8 mmol/L (3.5-5.1) Chloride Level 97 mmol/L (98-107) Carbon Dioxide Level 31 mmol/L (21-32) Anion Gap 11 (6-14) Blood Urea Nitrogen 20 mg/dL (8-26) Creatinine 0.7 mg/dL (0.7-1.3) Estimated GFR (Cockcroft-Gault) 109.6 Glucose Level 190 mg/dL (70-99) Calcium Level 8.8 mg/dL (8.5-10.1) Glucose (Fingerstick) 164 mg/dL (70-99) 182 mg/dL (70-99) Laboratory Tests Test 11/28/18 16:41 11/28/18 17:19 11/28/18 20:37 11/29/18 03:55 Glucose (Fingerstick) 67 mg/dL (70-99) 132 mg/dL (70-99) 115 mg/dL (70-99) Sodium Level 139 mmol/L (136-145) Potassium Level 2.8 mmol/L (3.5-5.1) Chloride Level 97 mmol/L (98-107) Carbon Dioxide Level 31 mmol/L (21-32) Anion Gap 11 (6-14) Blood Urea Nitrogen 20 mg/dL (8-26) Creatinine 0.7 mg/dL (0.7-1.3) Estimated GFR (Cockcroft-Gault) 109.6 Glucose Level 190 mg/dL (70-99) Calcium Level 8.8 mg/dL (8.5-10.1) Test 11/29/18 07:49 11/29/18 10:48 Glucose (Fingerstick) 164 mg/dL (70-99) 182 mg/dL (70-99) Microbiology 11/24/18 Blood Culture - Preliminary, Resulted 11/24/18 Blood Culture Result 1 (ATA) - Preliminary, Resulted Medications Current Medications Fentanyl Citrate (Fentanyl 2ml Vial) 50 mcg 1X ONCE IV Last administered on 11/24/18at 03:45; Start 11/24/18 at 03:15; Stop 11/24/18 at 03:18; Status DC Sodium Chloride 1,000 ml @ 1,000 mls/hr 1X ONCE IV Last administered on 11/24/18at 03:45; Start 11/24/18 at 03:15; Stop 11/24/18 at 04:14; Status DC Ondansetron HCl (Zofran) 4 mg 1X ONCE IV Last administered on 11/24/18at 03:45; Start 11/24/18 at 03:15; Stop 11/24/18 at 03:18; Status DC Iohexol (Omnipaque 300 Mg/ml) 75 ml 1X ONCE IV Last administered on 11/24/18at 04:30; Start 11/24/18 at 03:45; Stop 11/24/18 at 03:46; Status DC Info (CONTRAST GIVEN -- Rx MONITORING) 1 each PRN DAILY PRN MC SEE COMMENTS; Start 11/24/18 at 03:45; Stop 11/26/18 at 03:44; Status DC Benzocaine (Hurricaine One) 1 spray 1X ONCE MM ; Start 11/24/18 at 05:15; Stop 11/24/18 at 05:16; Status DC Morphine Sulfate (Morphine Sulfate) 4 mg 1X ONCE IV Last administered on 11/24/18at 06:03; Start 11/24/18 at 06:00; Stop 11/24/18 at 06:01; Status DC Sodium Chloride 1,000 ml @ 1,000 mls/hr 1X ONCE IV Last administered on 11/24/18at 06:03; Start 11/24/18 at 06:00; Stop 11/24/18 at 06:59; Status DC Morphine Sulfate (Morphine Sulfate) 4 mg PRN Q2HR PRN IV PAIN Last administered on 11/29/18at 12:07; Start 11/24/18 at 06:00 Sodium Chloride 1,000 ml @ 125 mls/hr 1X ONCE IV Last administered on 11/24/18at 08:10; Start 11/24/18 at 06:00; Stop 11/24/18 at 13:59; Status DC Ondansetron HCl (Zofran) 4 mg PRN Q6HRS PRN IV NAUSEA/VOMITING; Start 11/24/18 at 06:00 Piperacillin Sod/ Tazobactam Sod (Zosyn Per Pharmacy) 1 each PRN DAILY PRN MC SEE COMMENTS; Start 11/24/18 at 06:00 Piperacillin Sod/ Tazobactam Sod 3.375 gm/Sodium Chloride 50 ml @ 100 mls/hr 1X ONCE IV Last administered on 11/24/18at 06:53; Start 11/24/18 at 06:15; Stop 11/24/18 at 06:44; Status DC Piperacillin Sod/ Tazobactam Sod 3.375 gm/Sodium Chloride 50 ml @ 100 mls/hr Q6HRS IV Last administered on 11/29/18at 05:21; Start 11/24/18 at 12:00 Pantoprazole Sodium (PROTONIX VIAL for IV PUSH) 40 mg DAILYAC IVP Last administered on 11/25/18at 09:04; Start 11/24/18 at 11:30; Stop 11/25/18 at 11:36; Status DC Insulin Human Lispro (HumaLOG) 0-5 UNITS TIDWMEALS SQ ; Start 11/24/18 at 12:00 Dextrose (Dextrose 50%-Water Syringe) 12.5 gm PRN Q15MIN PRN IV SEE COMMENTS; Start 11/24/18 at 09:45 Amino Acids/ Glycerin/ Electrolytes 1,000 ml @ 50 mls/hr Q20H IV Last administered on 11/28/18at 17:44; Start 11/24/18 at 09:45 Budesonide (Pulmicort) 0.5 mg RTBID NEB Last administered on 11/29/18at 07:51; Start 11/24/18 at 10:00 Albuterol/ Ipratropium (Duoneb) 3 ml RTQID NEB Last administered on 11/29/18at 11:56; Start 11/24/18 at 12:00 Furosemide (Lasix) 40 mg 1X ONCE IVP Last administered on 11/25/18at 04:44; Start 11/25/18 at 05:00; Stop 11/25/18 at 05:01; Status DC Albuterol Sulfate (Ventolin Neb Soln) 2.5 mg PRN Q6HRS PRN NEB SHORTNESS OF BREATH Last administered on 11/28/18 03:57; Start 11/25/18 at 04:45 Pantoprazole Sodium (PROTONIX VIAL for IV PUSH) 40 mg BIDAC IVP Last administered on 11/29/18at 08:06; Start 11/25/18 at 16:30 Potassium Chloride/Water 100 ml @ 100 mls/hr Q1H IV Last administered on 11/25/18at 16:26; Start 11/25/18 at 13:00; Stop 11/25/18 at 16:59; Status DC Furosemide (Lasix) 20 mg 1X ONCE IVP Last administered on 11/26/18at 00:34; Start 11/26/18 at 01:00; Stop 11/26/18 at 01:01; Status DC Micafungin Sodium 100 mg/Dextrose 100 ml @ 100 mls/hr Q24H IV Last administered on 11/28/18at 09:02; Start 11/26/18 at 09:00 Furosemide (Lasix) 40 mg 1X ONCE IVP Last administered on 11/26/18at 10:33; Start 11/26/18 at 09:15; Stop 11/26/18 at 09:16; Status DC Albumin Human 100 ml @ 100 mls/hr 1X ONCE IV Last administered on 11/26/18at 10:34; Start 11/26/18 at 09:15; Stop 11/26/18 at 10:14; Status DC Metoprolol Tartrate (Lopressor Vial) 5 mg PRN Q6HRS PRN IVP HYPERTENSION, SEE COMMENTS; Start 11/26/18 at 12:00; Stop 11/26/18 at 14:22; Status DC Metoprolol Tartrate (Lopressor Vial) 5 mg Q6HRS IVP Last administered on 11/28/18at 17:48; Start 11/26/18 at 16:00 Furosemide (Lasix) 40 mg DAILY IVP Last administered on 11/29/18at 10:16; Start 11/27/18 at 09:00 Ondansetron HCl (Zofran) 4 mg PRN Q6HRS PRN IV NAUSEA/VOMITING; Start 11/29/18 at 07:00; Stop 11/29/18 at 19:00 Fentanyl Citrate (Fentanyl 2ml Vial) 25 mcg PRN Q5MIN PRN IV MILD PAIN; Start 11/29/18 at 07:00; Stop 11/29/18 at 19:00 Fentanyl Citrate (Fentanyl 2ml Vial) 50 mcg PRN Q5MIN PRN IV MODERATE TO SEVERE PAIN; Start 11/29/18 at 07:00; Stop 11/29/18 at 19:00 Morphine Sulfate (Morphine Sulfate) 1 mg PRN Q10MIN PRN IV SEVERE PAIN; Start 11/29/18 at 07:00; Stop 11/29/18 at 19:00 Ringer's Solution 1,000 ml @ 30 mls/hr Q24H IV ; Start 11/29/18 at 07:00; Stop 11/29/18 at 18:59 Lidocaine HCl (Xylocaine-Mpf 1% 2ml Vial) 2 ml PRN 1X PRN ID PRIOR TO IV START; Start 11/29/18 at 07:00; Stop 11/29/18 at 19:00 Hydromorphone HCl (Dilaudid) 0.5 mg PRN Q10MIN PRN IV SEV PAIN, Second choice; Start 11/29/18 at 07:00; Stop 11/29/18 at 19:00 Prochlorperazine Edisylate (Compazine) 5 mg PACU PRN PRN IV NAUSEA, MRX1; Start 11/29/18 at 07:00; Stop 11/29/18 at 19:00 Levothyroxine Sodium 50 mcg/ Sodium Chloride 5 ml @ 100 mls/hr Q3DAYS IVP ; Start 12/01/18 at 09:00 Potassium Chloride/Water 100 ml @ 100 mls/hr Q1H IV Last administered on 11/27/18at 16:39; Start 11/27/18 at 12:30; Stop 11/27/18 at 16:29; Status DC Methylprednisolone Sodium Succinate (SOLU-Medrol 125MG VIAL) 80 mg Q8HRS IV Last administered on 11/29/18at 05:19; Start 11/28/18 at 17:00 Potassium Chloride/Water 100 ml @ 100 mls/hr Q1H IV Last administered on 11/29/18at 11:36; Start 11/29/18 at 07:00; Stop 11/29/18 at 10:59; Status DC Active Scripts Active Sertraline Hcl 25 Mg Tablet 50 Mg PO QHS 30 Days Magnesium Chloride 70 Mg Tablet.dr 64 Mg PO DAILY 30 Days Synthroid (Levothyroxine Sodium) 88 Mcg Tablet 88 Mcg PO DAILY06 30 Days Prednisone 20 Mg Tablet 20 Mg PO DAILY 30 Days Budesonide 0.5 Mg/2 Ml Ampul.neb 0.5 Mg NEB RTBID 30 Days Klor-Con 10 (Potassium Chloride) 10 Meq Tablet.er 1 Tab PO DAILY Lasix (Furosemide) 40 Mg Tablet 1 Tab PO DAILY Aspirin Ec (Aspirin) 81 Mg Tablet. 81 Mg PO DAILYWBKFT 30 Days Duoneb 0.5-3(2.5) Mg/3 Ml (Albuterol/Ipratropium) 3 Ml Ampul.neb 3 Ml NEB RTQID 30 Days Diltiazem 24HR Cd (Diltiazem Hcl) 120 Mg Cap.er.24h 120 Mg PO DAILY 30 Days Reported Hydrocodone-Apap 7.5-325 (Hydrocodone Bit/Acetaminophen) 1 Tab Tablet 1 Tab PO PRN Q6HRS PRN Omeprazole 40 Mg Capsule. 40 Mg PO DAILY Vitals/I & O Vital Sign - Last 24 Hours 11/28/18 11/28/18 11/28/18 11/28/18 15:12 15:39 16:00 17:48 Temp 98.0 98.0 Pulse 93 93 Resp 20 B/P (MAP) 123/78 (93) 123/78 Pulse Ox 94 94 94 O2 Delivery Nasal Cannula Nasal Cannula Nasal Cannula O2 Flow Rate 3.0 4.0 4.0 11/28/18 11/28/18 11/28/18 11/28/18 19:00 19:45 19:46 20:00 Temp 98.1 98.1 Pulse 99 Resp 20 B/P (MAP) 143/82 (102) Pulse Ox 90 89 89 O2 Delivery Nasal Cannula Nasal Cannula Nasal Cannula Nasal Cannula O2 Flow Rate 3.0 4.0 4.0 5.0 11/28/18 11/28/18 11/29/18 11/29/18 21:17 23:00 00:00 00:26 Temp 98.0 98.0 Pulse 120 120 Resp 20 B/P (MAP) 117/59 (78) 117/59 Pulse Ox 98 O2 Delivery Nasal Cannula Nasal Cannula Nasal Cannula O2 Flow Rate 5.0 3.0 5.0 11/29/18 11/29/18 11/29/18 11/29/18 03:00 05:18 07:00 07:52 Temp 98.0 96.3 98.0 96.3 Pulse 71 65 Resp 20 18 B/P (MAP) 122/69 (86) 136/71 (92) Pulse Ox 99 93 96 O2 Delivery Nasal Cannula Nasal Cannula Nasal Cannula Nasal Cannula O2 Flow Rate 3.0 5.0 2.0 4.0 11/29/18 11/29/18 11/29/18 11/29/18 08:00 08:15 08:45 11:00 Temp 97.6 97.6 Pulse 50 Resp 19 19 18 B/P (MAP) 104/66 (79) Pulse Ox 96 96 92 O2 Delivery Nasal Cannula Nasal Cannula Nasal Cannula Nasal Cannula O2 Flow Rate 5.0 5.0 5.0 2.0 11/29/18 11/29/18 11:56 12:07 Resp 19 Pulse Ox 92 O2 Delivery Nasal Cannula Nasal Cannula O2 Flow Rate 4.0 4.0 Intake and Output 11/28/18 11/28/18 11/29/18 15:00 23:00 07:00 Intake Total 0 ml 0 ml 0 ml Output Total 950 ml 400 ml 200 ml Balance -950 ml -400 ml -200 ml Nutrition Consultation Dietary Evaluation: Recommendations by RD: PPN/TPN Comments: continue PPN for short term nutrition Expected Outcomes/Goals: diet adv/ tolerance Malnutrition Findings: Body Fat Depletion (Non Severe: Mild Depletion Weight Status: Underweight LOURDES POLLOCK MD Nov 29, 2018 13:29
[2018-11-29 15:00] VITALS: BP 110/61
--- NOTE | 2018-11-29 15:08 | NUR ---
The patient will have PICC line placed, coordinated with nursing lawn service supervisor about the procedure. PICC line insertion will be done in the morning, Dr. Neal updated at 1507.
[2018-11-29] MEDS: MICAFUNGIN 100 MG in IV DEXTROSE 5% 100ML 100 ML IV SCH (17:16)
--- NOTE | 2018-11-29 19:14 | NUR ---
Patient was given potassium correction of 4 bags. Zosyn at 1200 not administered as scheduled due to ongoing KCL.
[2018-11-29 19:56] VITALS: BP 99/64
[2018-11-29] MEDS: AMINO AC 3%/ELECTROLYTE/GLYCER 1,000 ML IV SCH (20:24)
[2018-11-29 23:18] VITALS: BP 105/66
[2018-11-30] MEDS: MORPHINE SULFATE 4 MG/ML VIAL. IV PRN ×6 (03:03→22:08)
[2018-11-30 03:39] VITALS: BP 129/76
[2018-11-30] MEDS: METOPROLOL TARTRATE 5 MG/5 ML VIAL. IVP SCH ×4 (06:17→17:30)
[2018-11-30] MEDS: methylPREDNISolone SOD SUCC PF 125 MG/2 ML VIAL. IV SCH ×3 (06:18→21:10)
[2018-11-30] MEDS: PIPERACILLIN/TAZOBACTAM 3.375 GM in IV NORMAL SALINE 50ML 50 ML IV SCH ×3 (06:19→19:15)
[2018-11-30 07:20] VITALS: BP 118/70
[2018-11-30] MEDS: IPRATRPIUM/ALBUTEROL 0.5/2.5MG 3 ML NEBU. NEB SCH ×4 (07:42→20:14)
[2018-11-30] MEDS: BUDESONIDE 0.5 MG/2 ML NEBU. NEB SCH ×2 (07:42→20:14)
[2018-11-30] MEDS: INSULIN LISPRO 300 UNITS/3 ML INSULN.PEN. SQ SCH ×3 (08:00→17:00)
[2018-11-30] MEDS: PANTOPRAZOLE IV PUSH 40 MG VIAL. IVP SCH ×2 (09:13→17:20)
[2018-11-30] MEDS: MICAFUNGIN 100 MG in IV DEXTROSE 5% 100ML 100 ML IV SCH (09:14)
[2018-11-30] MEDS: FUROSEMIDE 40 MG/4 ML VIAL. IVP SCH (09:14)
--- NOTE | 2018-11-30 09:27 | PDOC ---
PULMONARY PROGRESS NOTES Subjective PT STILL SOA AND COUGHING Vitals Vital Signs Date Time Temp Pulse Resp B/P (MAP) Pulse Ox O2 Delivery O2 Flow Rate FiO2 11/30/18 07:42 97 Nasal Cannula 4.0 11/30/18 07:20 97.8 75 18 118/70 (86) 97.8 ROS: No Nausea, No Chest Pain, No Increase Cough General: Alert HEENT: Other Lungs: Crackles Cardiovascular: S1, S2 Abdomen: Soft, Non-tender, Other Neuro Exam: Alert Extremities: No Edema, Other Labs Laboratory Tests Test 11/28/18 11:30 11/28/18 16:41 11/28/18 17:19 11/28/18 20:37 Glucose (Fingerstick) 93 mg/dL (70-99) 67 mg/dL (70-99) 132 mg/dL (70-99) 115 mg/dL (70-99) Test 11/29/18 03:55 11/29/18 07:49 11/29/18 10:48 11/29/18 16:52 Sodium Level 139 mmol/L (136-145) Potassium Level 2.8 mmol/L (3.5-5.1) Chloride Level 97 mmol/L (98-107) Carbon Dioxide Level 31 mmol/L (21-32) Anion Gap 11 (6-14) Blood Urea Nitrogen 20 mg/dL (8-26) Creatinine 0.7 mg/dL (0.7-1.3) Estimated GFR (Cockcroft-Gault) 109.6 Glucose Level 190 mg/dL (70-99) Calcium Level 8.8 mg/dL (8.5-10.1) Glucose (Fingerstick) 164 mg/dL (70-99) 182 mg/dL (70-99) 148 mg/dL (70-99) Test 11/29/18 20:39 11/30/18 07:32 Glucose (Fingerstick) 171 mg/dL (70-99) 167 mg/dL (70-99) Laboratory Tests Test 11/29/18 10:48 11/29/18 16:52 11/29/18 20:39 11/30/18 07:32 Glucose (Fingerstick) 182 mg/dL (70-99) 148 mg/dL (70-99) 171 mg/dL (70-99) 167 mg/dL (70-99) Medications Active Scripts Medications Dose Route/Sig Max Daily Dose Days Date Category Sertraline Hcl 25 Mg Tablet 50 Mg PO QHS 30 10/01/18 Rx Magnesium Chloride 70 Mg Tablet.dr 64 Mg PO DAILY 08/30/18 Rx Synthroid (Levothyroxine Sodium) 88 Mcg Tablet 88 Mcg PO DAILY06 08/30/18 Rx Prednisone 20 Mg Tablet 20 Mg PO DAILY 08/30/18 Rx Budesonide 0.5 Mg/2 Ml Ampul.neb 0.5 Mg NEB RTBID 08/30/18 Rx Hydrocodone-Apap 7.5-325 (Hydrocodone Bit/Acetaminophen) 1 Tab Tablet 1 Tab PO PRN Q6HRS PRN 08/26/18 Reported Omeprazole 40 Mg Capsule. 40 Mg PO DAILY 08/26/18 Reported Klor-Con 10 (Potassium Chloride) 10 Meq Tablet.er 1 Tab PO DAILY 07/16/18 Rx Lasix (Furosemide) 40 Mg Tablet 1 Tab PO DAILY 07/16/18 Rx Aspirin Ec (Aspirin) 81 Mg Tablet. 81 Mg PO DAILYWBKFT 07/16/18 Rx Duoneb 0.5-3(2.5) Mg/3 Ml (Albuterol/Ipratropium) 3 Ml Ampul.neb 3 Ml NEB RTQID 07/01/18 Rx Diltiazem 24HR Cd (Diltiazem Hcl) 120 Mg Cap.er.24h 120 Mg PO DAILY 07/01/18 Rx Impression . IMPRESSION: 1. Acute hypoxemic respiratory failure. 2. Abnormal x-ray compatible with bilateral pulmonary infiltrates, suspect combination of pulmonary edema, pulmonary fibrosis, and acute lung injury from possible aspiration. 3. Aspiration pneumonia. 4. Small-bowel obstruction. 5. Dysphagia. 6. Leukocytosis. 7. Bacteremia. 8. Atrial fibrillation. 9. [id number] heart failure. Plan . BETTER TODAY CONTINUE SUPPORT FOLLOW SURGERY INPUT ANTIBX UP CHAIR PT JON KRISHNA MD Nov 30, 2018 09:27
--- NOTE | 2018-11-30 09:35 | PDOC ---
PROGRESS NOTES Subjective Subjective Patient stable today. BM yesterday. NG still in place Picc line planned for TPN. Objective Objective Vital Signs Date Time Temp Pulse Resp B/P (MAP) Pulse Ox O2 Delivery O2 Flow Rate FiO2 11/30/18 07:42 97 Nasal Cannula 4.0 11/30/18 07:20 97.8 75 18 118/70 (86) 97.8 Intake and Output 11/30/18 07:00 Intake Total 0 ml Output Total 1000 ml Balance -1000 ml Intake Oral 0 ml Output Urine Total 650 ml Gastric Drainage Total 150 ml Drainage Total 200 ml Physical Exam Abdomen: Other (some BS today) Heart: Regular rate Extremities: Other (1+ edema) General: Alert Lungs: Clear to auscultation Assessment Assessment Problems Medical Problems: (1) Pneumonia Status: Acute CHF + blood Clx SBO esophagitis possible GI bleed aspiration pneumonia anemia hyperglycemia CAD old compression fractures of spine contusion left eye from recent fall Hx of afib Pulm Fibrosis Severe protein malnutrition Plan Plan of Care Picc line with TPN TPN planned continue Pulm Care Proceed with PT/OT as able Consider D/C picc line if no surgery planned Comment Review of Relevant I have reviewed the following items sherine (where applicable) has been applied. Labs Laboratory Tests Test 11/28/18 11:30 11/28/18 16:41 11/28/18 17:19 11/28/18 20:37 Glucose (Fingerstick) 93 mg/dL (70-99) 67 mg/dL (70-99) 132 mg/dL (70-99) 115 mg/dL (70-99) Test 11/29/18 03:55 11/29/18 07:49 11/29/18 10:48 11/29/18 16:52 Sodium Level 139 mmol/L (136-145) Potassium Level 2.8 mmol/L (3.5-5.1) Chloride Level 97 mmol/L (98-107) Carbon Dioxide Level 31 mmol/L (21-32) Anion Gap 11 (6-14) Blood Urea Nitrogen 20 mg/dL (8-26) Creatinine 0.7 mg/dL (0.7-1.3) Estimated GFR (Cockcroft-Gault) 109.6 Glucose Level 190 mg/dL (70-99) Calcium Level 8.8 mg/dL (8.5-10.1) Glucose (Fingerstick) 164 mg/dL (70-99) 182 mg/dL (70-99) 148 mg/dL (70-99) Test 11/29/18 20:39 11/30/18 07:32 Glucose (Fingerstick) 171 mg/dL (70-99) 167 mg/dL (70-99) Laboratory Tests Test 11/29/18 10:48 11/29/18 16:52 11/29/18 20:39 11/30/18 07:32 Glucose (Fingerstick) 182 mg/dL (70-99) 148 mg/dL (70-99) 171 mg/dL (70-99) 167 mg/dL (70-99) Microbiology 11/24/18 Blood Culture - Final, Complete 11/24/18 Blood Culture Result 1 (ATA) - Final, Complete 11/24/18 Antimicrobic Susceptibility - Final, Complete Medications Current Medications Fentanyl Citrate (Fentanyl 2ml Vial) 50 mcg 1X ONCE IV Last administered on 11/24/18at 03:45; Start 11/24/18 at 03:15; Stop 11/24/18 at 03:18; Status DC Sodium Chloride 1,000 ml @ 1,000 mls/hr 1X ONCE IV Last administered on 11/24/18at 03:45; Start 11/24/18 at 03:15; Stop 11/24/18 at 04:14; Status DC Ondansetron HCl (Zofran) 4 mg 1X ONCE IV Last administered on 11/24/18at 03:45; Start 11/24/18 at 03:15; Stop 11/24/18 at 03:18; Status DC Iohexol (Omnipaque 300 Mg/ml) 75 ml 1X ONCE IV Last administered on 11/24/18at 04:30; Start 11/24/18 at 03:45; Stop 11/24/18 at 03:46; Status DC Info (CONTRAST GIVEN -- Rx MONITORING) 1 each PRN DAILY PRN MC SEE COMMENTS; Start 11/24/18 at 03:45; Stop 11/26/18 at 03:44; Status DC Benzocaine (Hurricaine One) 1 spray 1X ONCE MM ; Start 11/24/18 at 05:15; Stop 11/24/18 at 05:16; Status DC Morphine Sulfate (Morphine Sulfate) 4 mg 1X ONCE IV Last administered on 11/24/18at 06:03; Start 11/24/18 at 06:00; Stop 11/24/18 at 06:01; Status DC Sodium Chloride 1,000 ml @ 1,000 mls/hr 1X ONCE IV Last administered on 11/24/18at 06:03; Start 11/24/18 at 06:00; Stop 11/24/18 at 06:59; Status DC Morphine Sulfate (Morphine Sulfate) 4 mg PRN Q2HR PRN IV PAIN Last administered on 11/30/18at 06:18; Start 11/24/18 at 06:00 Sodium Chloride 1,000 ml @ 125 mls/hr 1X ONCE IV Last administered on 11/24/18at 08:10; Start 11/24/18 at 06:00; Stop 11/24/18 at 13:59; Status DC Ondansetron HCl (Zofran) 4 mg PRN Q6HRS PRN IV NAUSEA/VOMITING; Start 11/24/18 at 06:00 Piperacillin Sod/ Tazobactam Sod (Zosyn Per Pharmacy) 1 each PRN DAILY PRN MC SEE COMMENTS; Start 11/24/18 at 06:00 Piperacillin Sod/ Tazobactam Sod 3.375 gm/Sodium Chloride 50 ml @ 100 mls/hr 1X ONCE IV Last administered on 11/24/18at 06:53; Start 11/24/18 at 06:15; Stop 11/24/18 at 06:44; Status DC Piperacillin Sod/ Tazobactam Sod 3.375 gm/Sodium Chloride 50 ml @ 100 mls/hr Q6HRS IV Last administered on 11/30/18at 06:19; Start 11/24/18 at 12:00 Pantoprazole Sodium (PROTONIX VIAL for IV PUSH) 40 mg DAILYAC IVP Last administered on 11/25/18at 09:04; Start 11/24/18 at 11:30; Stop 11/25/18 at 11:36; Status DC Insulin Human Lispro (HumaLOG) 0-5 UNITS TIDWMEALS SQ ; Start 11/24/18 at 12:00 Dextrose (Dextrose 50%-Water Syringe) 12.5 gm PRN Q15MIN PRN IV SEE COMMENTS; Start 11/24/18 at 09:45 Amino Acids/ Glycerin/ Electrolytes 1,000 ml @ 50 mls/hr Q20H IV Last admin istered on 11/29/18 20:24; Start 11/24/18 at 09:45 Budesonide (Pulmicort) 0.5 mg RTBID NEB Last administered on 11/30/18 07:42; Start 11/24/18 at 10:00 Albuterol/ Ipratropium (Duoneb) 3 ml RTQID NEB Last administered on 11/30/18 07:42; Start 11/24/18 at 12:00 Furosemide (Lasix) 40 mg 1X ONCE IVP Last administered on 11/25/18 04:44; Start 11/25/18 at 05:00; Stop 11/25/18 at 05:01; Status DC Albuterol Sulfate (Ventolin Neb Soln) 2.5 mg PRN Q6HRS PRN NEB SHORTNESS OF BREATH Last administered on 11/28/18 03:57; Start 11/25/18 at 04:45 Pantoprazole Sodium (PROTONIX VIAL for IV PUSH) 40 mg BIDAC IVP Last administered on 11/30/18 09:13; Start 11/25/18 at 16:30 Potassium Chloride/Water 100 ml @ 100 mls/hr Q1H IV Last administered on 11/25/18 16:26; Start 11/25/18 at 13:00; Stop 11/25/18 at 16:59; Status DC Furosemide (Lasix) 20 mg 1X ONCE IVP Last administered on 11/26/18 00:34; Start 11/26/18 at 01:00; Stop 11/26/18 at 01:01; Status DC Micafungin Sodium 100 mg/Dextrose 100 ml @ 100 mls/hr Q24H IV Last administered on 11/30/18 09:14; Start 11/26/18 at 09:00 Furosemide (Lasix) 40 mg 1X ONCE IVP Last administered on 11/26/18 10:33; Start 11/26/18 at 09:15; Stop 11/26/18 at 09:16; Status DC Albumin Human 100 ml @ 100 mls/hr 1X ONCE IV Last administered on 11/26/18at 10:34; Start 11/26/18 at 09:15; Stop 11/26/18 at 10:14; Status DC Metoprolol Tartrate (Lopressor Vial) 5 mg PRN Q6HRS PRN IVP HYPERTENSION, SEE COMMENTS; Start 11/26/18 at 12:00; Stop 11/26/18 at 14:22; Status DC Metoprolol Tartrate (Lopressor Vial) 5 mg Q6HRS IVP Last administered on 11/30/18at 06:17; Start 11/26/18 at 16:00 Furosemide (Lasix) 40 mg DAILY IVP Last administered on 11/30/18at 09:14; Start 11/27/18 at 09:00 Ondansetron HCl (Zofran) 4 mg PRN Q6HRS PRN IV NAUSEA/VOMITING; Start 11/29/18 at 07:00; Stop 11/29/18 at 19:00; Status DC Fentanyl Citrate (Fentanyl 2ml Vial) 25 mcg PRN Q5MIN PRN IV MILD PAIN; Start 11/29/18 at 07:00; Stop 11/29/18 at 19:00; Status DC Fentanyl Citrate (Fentanyl 2ml Vial) 50 mcg PRN Q5MIN PRN IV MODERATE TO SEVERE PAIN; Start 11/29/18 at 07:00; Stop 11/29/18 at 19:00; Status DC Morphine Sulfate (Morphine Sulfate) 1 mg PRN Q10MIN PRN IV SEVERE PAIN; Start 11/29/18 at 07:00; Stop 11/29/18 at 19:00; Status DC Ringer's Solution 1,000 ml @ 30 mls/hr Q24H IV ; Start 11/29/18 at 07:00; Stop 11/29/18 at 18:59; Status DC Lidocaine HCl (Xylocaine-Mpf 1% 2ml Vial) 2 ml PRN 1X PRN ID PRIOR TO IV START; Start 11/29/18 at 07:00; Stop 11/29/18 at 19:00; Status DC Hydromorphone HCl (Dilaudid) 0.5 mg PRN Q10MIN PRN IV SEV PAIN, Second choice; Start 11/29/18 at 07:00; Stop 11/29/18 at 19:00; Status DC Prochlorperazine Edisylate (Compazine) 5 mg PACU PRN PRN IV NAUSEA, MRX1; Start 11/29/18 at 07:00; Stop 11/29/18 at 19:00; Status DC Levothyroxine Sodium 50 mcg/ Sodium Chloride 5 ml @ 100 mls/hr Q3DAYS IVP ; Start 12/01/18 at 09:00 Potassium Chloride/Water 100 ml @ 100 mls/hr Q1H IV Last administered on 11/27/18at 16:39; Start 11/27/18 at 12:30; Stop 11/27/18 at 16:29; Status DC Methylprednisolone Sodium Succinate (SOLU-Medrol 125MG VIAL) 80 mg Q8HRS IV Last administered on 11/30/18at 06:18; Start 11/28/18 at 17:00 Potassium Chloride/Water 100 ml @ 100 mls/hr Q1H IV Last administered on 11/29/18at 14:30; Start 11/29/18 at 07:00; Stop 11/29/18 at 10:59; Status DC Active Scripts Active Sertraline Hcl 25 Mg Tablet 50 Mg PO QHS 30 Days Magnesium Chloride 70 Mg Tablet. 64 Mg PO DAILY 30 Days Synthroid (Levothyroxine Sodium) 88 Mcg Tablet 88 Mcg PO DAILY06 30 Days Prednisone 20 Mg Tablet 20 Mg PO DAILY 30 Days Budesonide 0.5 Mg/2 Ml Ampul.neb 0.5 Mg NEB RTBID 30 Days Klor-Con 10 (Potassium Chloride) 10 Meq Tablet.er 1 Tab PO DAILY Lasix (Furosemide) 40 Mg Tablet 1 Tab PO DAILY Aspirin Ec (Aspirin) 81 Mg Tablet. 81 Mg PO DAILYWBKFT 30 Days Duoneb 0.5-3(2.5) Mg/3 Ml (Albuterol/Ipratropium) 3 Ml Ampul.neb 3 Ml NEB RTQID 30 Days Diltiazem 24HR Cd (Diltiazem Hcl) 120 Mg Cap.er.24h 120 Mg PO DAILY 30 Days Reported Hydrocodone-Apap 7.5-325 (Hydrocodone Bit/Acetaminophen) 1 Tab Tablet 1 Tab PO PRN Q6HRS PRN Omeprazole 40 Mg Capsule. 40 Mg PO DAILY Vitals/I & O Vital Sign - Last 24 Hours 11/29/18 11/29/18 11/29/18 11/29/18 11:00 11:56 12:00 12:07 Temp 97.6 97.6 Pulse 50 50 Resp 18 19 B/P (MAP) 104/66 (79) 104/66 Pulse Ox 92 92 O2 Delivery Nasal Cannula Nasal Cannula Nasal Cannula O2 Flow Rate 2.0 4.0 4.0 11/29/18 11/29/18 11/29/18 11/29/18 14:29 15:00 15:18 17:34 Temp 97.2 97.2 Pulse 97 Resp 19 16 18 B/P (MAP) 110/61 (77) Pulse Ox 92 96 96 O2 Delivery Nasal Cannula Nasal Cannula Nasal Cannula Nasal Cannula O2 Flow Rate 4.0 2.0 4.0 4.0 11/29/18 11/29/18 11/29/18 11/29/18 18:00 19:43 19:56 20:00 Temp 97.5 97.5 Pulse 97 83 Resp 18 B/P (MAP) 110/61 99/64 (76) Pulse Ox 97 97 O2 Delivery Nasal Cannula Nasal Cannula Nasal Cannula O2 Flow Rate 4.0 2.0 4.0 11/29/18 11/29/18 11/29/18 11/30/18 20:23 23:18 23:39 00:00 Temp 97.6 97.6 Pulse 83 83 Resp 18 20 B/P (MAP) 105/66 (79) 105/66 Pulse Ox 97 98 98 O2 Delivery Nasal Cannula Nasal Cannula Nasal Cannula O2 Flow Rate 2.0 4.0 4.0 11/30/18 11/30/18 11/30/18 11/30/18 00:09 03:03 03:33 03:39 Temp 97.5 97.5 Pulse 83 Resp 18 17 20 B/P (MAP) 129/76 (93) Pulse Ox 97 98 98 O2 Delivery Nasal Cannula Nasal Cannula Nasal Cannula O2 Flow Rate 4.0 4.0 4.0 11/30/18 11/30/18 11/30/18 11/30/18 06:17 06:18 07:20 07:42 Temp 97.8 97.8 Pulse 83 75 Resp 18 B/P (MAP) 129/76 118/70 (86) Pulse Ox 98 98 97 O2 Delivery Nasal Cannula Nasal Cannula Nasal Cannula O2 Flow Rate 4.0 4.0 4.0 Intake and Output 11/29/18 11/29/18 11/30/18 15:00 23:00 07:00 Intake Total 0 ml 0 ml 0 ml Output Total 400 ml 350 ml 250 ml Balance -400 ml -350 ml -250 ml Nutrition Consultation Dietary Evaluation: Recommendations by RD: PPN/TPN Comments: continue PPN for short term nutrition Expected Outcomes/Goals: diet adv/ tolerance Malnutrition Findings: Body Fat Depletion (Non Severe: Mild Depletion Weight Status: Underweight LOURDES POLLOCK MD Nov 30, 2018 09:35
[2018-11-30] MEDS: AMINO AC 3%/ELECTROLYTE/GLYCER 1,000 ML IV SCH (09:39)
--- NOTE | 2018-11-30 10:28 | PDOC ---
SURGICAL PROGRESS NOTE Subjective no new complaints awaiting PICC placement to start TPN Vital Signs Vital Signs Date Time Temp Pulse Resp B/P (MAP) Pulse Ox O2 Delivery O2 Flow Rate FiO2 11/30/18 07:42 97 Nasal Cannula 4.0 11/30/18 07:20 97.8 75 18 118/70 (86) 97.8 I&O Intake and Output 11/30/18 06:59 Intake Total 0 ml Output Total 1000 ml Balance -1000 ml Intake Oral 0 ml Output Urine Total 650 ml Gastric Drainage Total 150 ml Drainage Total 200 ml PATIENT HAS A DELCID: No General: Alert HEENT: Other (NG with bilious return) Abdomen: Soft Labs Laboratory Tests Test 11/28/18 11:30 11/28/18 16:41 11/28/18 17:19 11/28/18 20:37 Glucose (Fingerstick) 93 mg/dL (70-99) 67 mg/dL (70-99) 132 mg/dL (70-99) 115 mg/dL (70-99) Test 11/29/18 03:55 11/29/18 07:49 11/29/18 10:48 11/29/18 16:52 Sodium Level 139 mmol/L (136-145) Potassium Level 2.8 mmol/L (3.5-5.1) Chloride Level 97 mmol/L (98-107) Carbon Dioxide Level 31 mmol/L (21-32) Anion Gap 11 (6-14) Blood Urea Nitrogen 20 mg/dL (8-26) Creatinine 0.7 mg/dL (0.7-1.3) Estimated GFR (Cockcroft-Gault) 109.6 Glucose Level 190 mg/dL (70-99) Calcium Level 8.8 mg/dL (8.5-10.1) Glucose (Fingerstick) 164 mg/dL (70-99) 182 mg/dL (70-99) 148 mg/dL (70-99) Test 11/29/18 20:39 11/30/18 07:32 Glucose (Fingerstick) 171 mg/dL (70-99) 167 mg/dL (70-99) Laboratory Tests Test 11/29/18 10:48 11/29/18 16:52 11/29/18 20:39 11/30/18 07:32 Glucose (Fingerstick) 182 mg/dL (70-99) 148 mg/dL (70-99) 171 mg/dL (70-99) 167 mg/dL (70-99) Problem List Problems Medical Problems: (1) Pneumonia Status: Acute Assessment/Plan chronic partial SBO CHF pulmonary infiltrates continue supportive care TPN after PICC try to manage non operatively if possible given his comorbid issues SHAKEEL SOMMER MD Nov 30, 2018 10:28
[2018-11-30 11:25] VITALS: BP 134/68
--- NOTE | 2018-11-30 11:30 | NUR ---
PICC Pre-Insertion Note Allergies and reactions NKDA INR 1.3 BUN 20 Cr 0.7 Platelets 236 Blood culture done yes blood culture results 1st set no growth x 5days, 2nd set- Streptococcus Sergey - Dr. Angelita Leahy aware. 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
--- NOTE | 2018-11-30 11:58 | PDOC ---
Objective: Objective: Reviewed chart - he did not appreciate being awakened yesterday. Vital Signs: Vital Signs Date Time Temp Pulse Resp B/P (MAP) Pulse Ox O2 Delivery O2 Flow Rate FiO2 11/30/18 07:42 97 Nasal Cannula 4.0 11/30/18 07:20 97.8 75 18 118/70 (86) 97.8 Labs: Laboratory Tests Test 11/29/18 16:52 11/29/18 20:39 11/30/18 07:32 Glucose (Fingerstick) 148 mg/dL 171 mg/dL 167 mg/dL PE: GEN: NAD HEENT: NG bilious ABD: soft NEURO/PSYCH: sleeping, did not awaken A/P: Recurrent SBO, resp failure ACD -- Plans for conservative management. TIO ACEVEDO Nov 30, 2018 11:58
--- NOTE | 2018-11-30 12:15 | NUR ---
PICC Insertion Note Procedure: Following complete explanation of the PICC procedure including the indications, risks, and potential complications, informed consent was obtained. The possibility for infection was discussed along with signs, symptoms, and prevention. All the questions were answered. Written and verbal patient education was provided. Hand hygiene performed. Standardized central line checklist was utilized. The patient was placed in the supine position, the arm was prepped with chlorhexidine and patient draped with maximum sterile barrier. 2 mL 1% lidocaine was infiltrated into the skin to provide local anesthesia. A thorough assessment of Right upper extremity completed. Using real-time ultrasound guidance and standardized micro puncture set, the Basilic vein was punctured and a peel away sheath was placed using the modified Seldinger technique. A tip location device was used to ensure adequate catheter placement. The catheter was secured using a securement device and an antimicrobial patch was applied directly on the insertion site followed by a transparent dressing. All ports withdraw blood and flush without resistance. Patient tolerated the procedure without apparent complication(s). Double Lumen Power PICC placement successful and uncomplicated. Patient is AFIB, chest xray ordered tip located in inferior R atrium. PICC was pulled back 2.5 cm and PICC is still in R atrium. Will do line over transfer to cut catheter shorter in order to pull out enough to be in SVC.
--- NOTE | 2018-11-30 12:41 | RAD ---
EXAM: Chest, single view. HISTORY: PICC line placement. COMPARISON: 11/29/2018 FINDINGS: A frontal view of the chest is obtained. There is a right PICC with the tip in the inferior right atrium. There is a nasogastric tube within the stomach. There is diffuse central predominant interstitial infiltrate. There is hypoventilation. There are suspected small pleural effusions. There is no pneumothorax. There is a stable cardiac silhouette. IMPRESSION: 1. Right PICC with the tip in the inferior right atrium. 2. Nasogastric tube within the stomach. 3. Stable diffuse central predominant interstitial infiltrate. Electronically signed by: Dianna Moreno MD (11/30/2018 12:37 PM) [id number]
--- NOTE | 2018-11-30 13:37 | PDOC ---
CARDIO Progress Notes Date and Time Date of Service 11/30/2018 Time of Evaluation 1115 Subjective Subjective: No Chest Pain, No shortness of breath, No Palpitations Comments: has formed small stool Vitals Vitals Vital Signs Date Time Temp Pulse Resp B/P (MAP) Pulse Ox O2 Delivery O2 Flow Rate FiO2 11/30/18 12:57 84 134/68 11/30/18 11:25 97.7 20 98 Nasal Cannula 4.0 97.7 Weight Weight [ ] Input and Output Intake and Output Intake and Output 11/30/18 07:00 Intake Total 0 ml Output Total 1000 ml Balance -1000 ml Intake Oral 0 ml Output Urine Total 650 ml Gastric Drainage Total 150 ml Drainage Total 200 ml Laboratory Labs Laboratory Tests Test 11/29/18 16:52 11/29/18 20:39 11/30/18 07:32 11/30/18 10:57 Glucose (Fingerstick) 148 mg/dL (70-99) 171 mg/dL (70-99) 167 mg/dL (70-99) 157 mg/dL (70-99) Microbiology Micro Microbiology 11/24/18 Blood Culture - Final, Complete 11/24/18 Blood Culture Result 1 (ATA) - Final, Complete 11/24/18 Antimicrobic Susceptibility - Final, Complete Physical Exam HEENT: Neck Supple W Full Motion Chest: Symmetric LUNGS: Other (bibasilar crackles) Heart: S1S2, RRR (SR) Abdomen: Soft N/T, Other (NGT in placem to LIS) Extremities: Other (trace LE edema ) Neurology: alert, oriented, follow commands Assessment Assessment 1. SBO, recurrent. remains with NGT to LIS 2. Acute respiratory failure; multifactorial in setting of a/c HF, IDL, and PNA. SOA better. Pulmonary following 2. Acute on chronic diastolic CHF 3. PAFIB; maintaining SR 4. Bacteremia; antibiotic therapy as per ID 5. Hypertension: controlled 6. Hyperlipidemia 7. COPD/ILD 8. Hypothyroidism Recommendations 1. Lasix therapy 2. IV lopressor for now while NPO. On cardizem at home. 3. Resume ASA, statin when able to take PO. GI and general surgery following JACQUE OEDN APRN Nov 30, 2018 13:37
--- NOTE | 2018-11-30 13:44 | RAD ---
CHEST AP ONLY History: PICC LINE PLACEMENT Comparison: November 29, 2018 Findings: Single view of the chest is submitted. There is now a right upper extremity PICC with the tip in the region of the superior aspect of the right atrium. There is again enteric catheter which courses into the region of stomach. Pericardial cardiac silhouette is similar. There is again airspace as well as reticular and interstitial opacity with basilar predominance and in the perihilar regions bilaterally not significantly changed. Hemidiaphragms are obscured, probable small pleural effusions more apparent on the right on this exam. There is no pneumothorax. Impression: 1. There is now a right upper extremity PICC with the tip in the region of the right atrium. 2. There is persistent airspace as well as interstitial and reticular opacity with basilar predominance overall unchanged, could be a component of edema although also possible infiltrates. There may be small pleural effusions bilaterally. Electronically signed by: Maurizio Jamison MD (11/30/2018 1:41 PM) [id number]
--- NOTE | 2018-11-30 14:10 | PDOC ---
Infectious Disease Note Subjective Subjective feeling better, had BM ROS ROS no n/v/d/sob Vital Sign Vital Signs Vital Signs Date Time Temp Pulse Resp B/P (MAP) Pulse Ox O2 Delivery O2 Flow Rate FiO2 11/30/18 12:57 84 134/68 11/30/18 11:25 97.7 20 98 Nasal Cannula 4.0 97.7 Physical Exam PHYSICAL EXAM GENERAL: Propped up in bed, weak appearing, HEENT: Ecchymosis about his left eye. Oral cavity and pharynx w/ dried secretions, NGT to LIWS NECK: Supple, no JVD. LUNGS: + rhonchi. Nonlabored HEART: S1, S2. ABDOMEN: Mildly distended, soft, NT, decreased bowel sounds. EXTREMITIES: Without clubbing or cyanosis. 2+ edema lower extremities, bilaterally NEUROLOGIC: Sleepy, answering questions appropriately SKIN: Without generalized signs of rash. PIV ok Labs Lab Laboratory Tests Test 11/29/18 16:52 11/29/18 20:39 11/30/18 07:32 11/30/18 10:57 Glucose (Fingerstick) 148 mg/dL (70-99) 171 mg/dL (70-99) 167 mg/dL (70-99) 157 mg/dL (70-99) Micro BLOOD CULTURE LC Preliminary Preliminary report BLD CULT RESULT 1 Preliminary Comment Streptococcus salivarius group Performed at: DA - [facility] [address], [place], [place] [id number] [employer]: ANGELES Camargo MD, Phone: [phone] Objective Assessment Bacteremia from 11/24 - (gram neg coccobacilli in 1/4 bottles) Strep salivarius SBO Leukocytosis - better ? thrush AFib CHF Plan Plan of Care Cont Zosyn and d/c micafungin f/u cultures Monitor labs Oral care Maintain aspiration precautions Surgery possibly on 11/29 Supportive care HOLLY MCKEON MD Nov 30, 2018 14:10
[2018-11-30 15:00] VITALS: BP 118/68
[2018-11-30 19:00] VITALS: BP 115/67
[2018-11-30] MEDS: TPN PER PHARMACY MC PRN (19:33)
--- NOTE | 2018-11-30 19:38 | NUR ---
Pharmacy TPN Dosing Note S: JOHN ROBBINS is a 78 year old M Currently receiving Central Continuous TPN started 11/30/18 B:Pertinent PMH: SBO, NPO Height: 5 feet, 10 inches Weight: 57.542631 kg Current diet: NPO LABS: Sodium: 139 Potassium: 2.8 Chloride: 97 Calcium: 8.8 Corrected Calcium: 9.52 Magnesium: 2.2 CO2: 31 SCr: 0.7 Glucose: 81 Albumin: 3.1 AST: 14 ALT: 17 TPN FORMULA: TPN TYPE: Central Continuous AMINO ACIDS: 60 gm DEXTROSE: 195 gm LIPIDS: ML gm SODIUM CHLORIDE: 90 mEq SODIUM ACETATE: mEq SODIUM PHOSPHATE: mmol POTASSIUM CHLORIDE: 50 mEq POTASSIUM ACETATE: mEq POTASSIUM PHOSPHATE: 13.6 mmol MAGNESIUM: 10 mEq CALCIUM: 10 mEq INSULIN: units MULTIPLE VITAMIN: 10 ml TRACE ELEMENTS: 1 ml(s) TPN PLAN: start standard tpn R: Begin TPN as ordered Will monitor electrolytes, glucose, and tolerance to TPN. EMI RAYO, [facility], 11/30/18 1938
[2018-11-30 20:11] LABS: MAGNESIUM 2.2 mg/dL (1.8-2.4); POTASSIUM 3.5 mmol/L (3.5-5.1)
--- NOTE | 2018-11-30 21:41 | RAD ---
CHEST AP ONLY History: PICC LINE PLACEMENT. Comparison with 1:30 PM of the same day. Right arm central venous line is identified with tip in the region of the cavoatrial junction. Endogastric tube extends to the left upper quadrant. Bilateral infiltrates are again identified, overall similar. There may be small effusions. IMPRESSION: Similar bilateral infiltrates or edema in both lungs. Electronically signed by: Yousuf Hummel MD (11/30/2018 9:38 PM) [facility]
[2018-11-30] MEDS ORDERED: TOTAL PARENTERAL NUTRITION 1,424.9987 ML, AMINO ACID 15% 60 GM, DEXTROSE 70 % IN WATER ... IV SCH ×10 (22:00)
[2018-11-30 22:47] VITALS: BP 117/65
[2018-12-01] MEDS: MORPHINE SULFATE 4 MG/ML VIAL. IV PRN ×5 (00:09→19:56)
[2018-12-01] MEDS: PIPERACILLIN/TAZOBACTAM 3.375 GM in IV NORMAL SALINE 50ML 50 ML IV SCH ×4 (00:09→17:18)
[2018-12-01] MEDS: METOPROLOL TARTRATE 5 MG/5 ML VIAL. IVP SCH ×4 (00:10→17:12)
[2018-12-01 03:00] VITALS: BP 108/62
[2018-12-01] MEDS: methylPREDNISolone SOD SUCC PF 125 MG/2 ML VIAL. IV SCH ×2 (06:02→12:35)
[2018-12-01] MEDS: IPRATRPIUM/ALBUTEROL 0.5/2.5MG 3 ML NEBU. NEB SCH ×4 (06:17→20:56)
[2018-12-01] MEDS: BUDESONIDE 0.5 MG/2 ML NEBU. NEB SCH ×2 (06:17→20:00)
[2018-12-01 06:32] LABS: CALCIUM 9.3 mg/dL (8.5-10.1); CREATININE 0.7 mg/dL (0.7-1.3); GFR 109.6; MAGNESIUM 2.5 mg/dL (1.8-2.4); PHOSPHORUS 2.2 mg/dL (2.6-4.7); POTASSIUM 3.4 mmol/L (3.5-5.1)
[2018-12-01 07:05] VITALS: BP 138/76
--- NOTE | 2018-12-01 07:45 | NUR ---
JOHN AROUSES TO NAME BUT OTHERWISE IS SLEEPING. HAS AN NG TO LOW INTERMITTENT SUCTION THAT IS PATENT WITH GREEN LIQUID. HAS A DOUBLE LUMEN PICC IN RIGHT UPPER ARM THAT IS PATENT (TPN INFUSING) AND IVPB INFUSING IN OTHER . LINE WAS FLUSHED. HE VOIDED 175 CC YELLOW URINE PER URINAL ICE CHIPS AT BEDSIDE. MO REYNOSO IS MONITORING AND MANAGING TELEMETRY
[2018-12-01] MEDS: PANTOPRAZOLE IV PUSH 40 MG VIAL. IVP SCH ×2 (08:49→17:15)
[2018-12-01] MEDS: FUROSEMIDE 40 MG/4 ML VIAL. IVP SCH (08:50)
[2018-12-01] MEDS: INSULIN LISPRO 300 UNITS/3 ML INSULN.PEN. SQ SCH ×3 (08:58→17:30)
[2018-12-01] MEDS ORDERED: LEVOTHYROXINE SODIUM INJ 50 MCG in NORMAL SALINE 5 ML IVP SCH (09:00)
[2018-12-01 10:37] VITALS: BP 129/77
--- NOTE | 2018-12-01 12:12 | PDOC ---
Infectious Disease Note Subjective Subjective feeling better ROS ROS no n/v/d/ still NG in place Vital Sign Vital Signs Vital Signs Date Time Temp Pulse Resp B/P (MAP) Pulse Ox O2 Delivery O2 Flow Rate FiO2 12/01/18 11:07 Nasal Cannula 4.0 12/01/18 10:37 97.6 70 20 129/77 (94) 96 97.6 Physical Exam PHYSICAL EXAM GENERAL: Propped up in bed, weak appearing, HEENT: Ecchymosis about his left eye. Oral cavity and pharynx w/ dried secretions, NGT to LIWS NECK: Supple, no JVD. LUNGS: + rhonchi. Nonlabored HEART: S1, S2. ABDOMEN: Mildly distended, soft, NT, decreased bowel sounds. EXTREMITIES: Without clubbing or cyanosis. 2+ edema lower extremities, bilaterally NEUROLOGIC: Sleepy, answering questions appropriately SKIN: Without generalized signs of rash. PIV ok Labs Lab Laboratory Tests Test 11/30/18 16:55 11/30/18 19:45 11/30/18 21:56 12/01/18 05:00 Glucose (Fingerstick) 162 mg/dL (70-99) 195 mg/dL (70-99) Potassium Level 3.5 mmol/L (3.5-5.1) 3.4 mmol/L (3.5-5.1) Magnesium Level 2.2 mg/dL (1.8-2.4) 2.5 mg/dL (1.8-2.4) Sodium Level 141 mmol/L (136-145) Chloride Level 102 mmol/L (98-107) Carbon Dioxide Level 34 mmol/L (21-32) Anion Gap 5 (6-14) Blood Urea Nitrogen 29 mg/dL (8-26) Creatinine 0.7 mg/dL (0.7-1.3) Estimated GFR (Cockcroft-Gault) 109.6 Glucose Level 304 mg/dL (70-99) Calcium Level 9.3 mg/dL (8.5-10.1) Phosphorus Level 2.2 mg/dL (2.6-4.7) Triglycerides Level 146 mg/dL (0-150) Test 12/01/18 07:19 12/01/18 11:47 Glucose (Fingerstick) 324 mg/dL (70-99) 291 mg/dL (70-99) Micro -------- BLOOD CULTURE LC Preliminary Preliminary report BLD CULT RESULT 1 Preliminary Comment Streptococcus salivarius group Performed at: - [facility] [id number], [place], [place] [id number] Musical Performer: ANGELES Camargo MD, Phone: [phone] Objective Assessment Bacteremia from 11/24 - (gram neg coccobacilli in 1/4 bottles) Strep salivarius SBO Leukocytosis - better ? thrush AFib CHF Plan Plan of Care Cont Zosyn f/u cultures Monitor labs Oral care Maintain aspiration precautions Surgery possibly on 11/29 Supportive care HOLLY MCKEON MD December 01, 2018 12:12
--- NOTE | 2018-12-01 12:52 | PDOC ---
Subjective: Subjective: Tried to have a stool earlier - no luck. Has "a little pain" - "I need my pain medicine!" Breathing is "bad." Objective: Objective: Reviewed w/ RN - ~100cc from NG last night - just asked him if he needed pain meds and he said no. Vital Signs: Vital Signs Date Time Temp Pulse Resp B/P (MAP) Pulse Ox O2 Delivery O2 Flow Rate FiO2 12/01/18 12:27 70 129/77 12/01/18 11:07 Nasal Cannula 4.0 12/01/18 10:37 97.6 20 96 97.6 Labs: Laboratory Tests Test 11/30/18 16:55 11/30/18 21:56 12/01/18 07:19 12/01/18 11:47 Glucose (Fingerstick) 162 mg/dL (70-99) 195 mg/dL (70-99) 324 mg/dL (70-99) 291 mg/dL (70-99) PE: GEN: NAD - holding urinal as always HEENT: NG bilious LUNGS: diminished, NC HEART: RRR ABD: occasional gurgle NEURO/PSYCH: awake today - ?confused A/P: Recurrent SBO, resp failure - on TPN -- Continue same per GI. TIO ACEVEDO December 01, 2018 12:52
--- NOTE | 2018-12-01 13:03 | PDOC ---
SURGICAL PROGRESS NOTE Subjective would NG out and something to drink Vital Signs Vital Signs Date Time Temp Pulse Resp B/P (MAP) Pulse Ox O2 Delivery O2 Flow Rate FiO2 12/01/18 12:27 70 129/77 12/01/18 11:07 Nasal Cannula 4.0 12/01/18 10:37 97.6 20 96 97.6 I&O Intake and Output 12/01/18 06:59 Intake Total 0 ml Output Total 775 ml Balance -775 ml Intake Oral 0 ml Output Urine Total 775 ml # Voids 1 PATIENT HAS A DELCID: No General: Alert Abdomen: Soft, Other (non tender to palpation) Labs Laboratory Tests Test 11/29/18 16:52 11/29/18 20:39 11/30/18 07:32 11/30/18 10:57 Glucose (Fingerstick) 148 mg/dL (70-99) 171 mg/dL (70-99) 167 mg/dL (70-99) 157 mg/dL (70-99) Test 11/30/18 16:55 11/30/18 19:45 11/30/18 21:56 12/01/18 05:00 Glucose (Fingerstick) 162 mg/dL (70-99) 195 mg/dL (70-99) Potassium Level 3.5 mmol/L (3.5-5.1) 3.4 mmol/L (3.5-5.1) Magnesium Level 2.2 mg/dL (1.8-2.4) 2.5 mg/dL (1.8-2.4) Sodium Level 141 mmol/L (136-145) Chloride Level 102 mmol/L (98-107) Carbon Dioxide Level 34 mmol/L (21-32) Anion Gap 5 (6-14) Blood Urea Nitrogen 29 mg/dL (8-26) Creatinine 0.7 mg/dL (0.7-1.3) Estimated GFR (Cockcroft-Gault) 109.6 Glucose Level 304 mg/dL (70-99) Calcium Level 9.3 mg/dL (8.5-10.1) Phosphorus Level 2.2 mg/dL (2.6-4.7) Triglycerides Level 146 mg/dL (0-150) Test 12/01/18 07:19 12/01/18 11:47 Glucose (Fingerstick) 324 mg/dL (70-99) 291 mg/dL (70-99) Laboratory Tests Test 11/30/18 16:55 11/30/18 19:45 11/30/18 21:56 12/01/18 05:00 Glucose (Fingerstick) 162 mg/dL (70-99) 195 mg/dL (70-99) Potassium Level 3.5 mmol/L (3.5-5.1) 3.4 mmol/L (3.5-5.1) Magnesium Level 2.2 mg/dL (1.8-2.4) 2.5 mg/dL (1.8-2.4) Sodium Level 141 mmol/L (136-145) Chloride Level 102 mmol/L (98-107) Carbon Dioxide Level 34 mmol/L (21-32) Anion Gap 5 (6-14) Blood Urea Nitrogen 29 mg/dL (8-26) Creatinine 0.7 mg/dL (0.7-1.3) Estimated GFR (Cockcroft-Gault) 109.6 Glucose Level 304 mg/dL (70-99) Calcium Level 9.3 mg/dL (8.5-10.1) Phosphorus Level 2.2 mg/dL (2.6-4.7) Triglycerides Level 146 mg/dL (0-150) Test 12/01/18 07:19 12/01/18 11:47 Glucose (Fingerstick) 324 mg/dL (70-99) 291 mg/dL (70-99) Problem List Problems Medical Problems: (1) Pneumonia Status: Acute Assessment/Plan recurrent small bowel obstruction pulmonary infiltrates failure try to wean off NG he does not want me to get a SBFT, "hurts too much" Lizandro Parra and Merrill to follow in my absence SHAKEEL SOMMER MD December 01, 2018 13:03
[2018-12-01 14:35] VITALS: BP 127/88
[2018-12-01] MEDS: TPN PER PHARMACY MC PRN ×2 (14:36→14:37)
--- NOTE | 2018-12-01 14:42 | NUR ---
Pharmacy TPN Dosing Note S: JOHN ROBBINS is a 78 year old M Currently receiving Central Continuous TPN started 11/30/18 B:Pertinent PMH: SBO, NPO Height: 5 feet, 10 inches Weight: 55.799078 kg Current diet: NPO LABS: Sodium: 141 Potassium: 3.4 Chloride: 102 Calcium: 9.3 Corrected Calcium: 10.02 Magnesium: 2.5 CO2: 34 SCr: 0.7 Glucose: 291 Albumin: 3.1 AST: 14 ALT: 17 TPN FORMULA: TPN TYPE: Central Continuous AMINO ACIDS: 60 gm DEXTROSE: 195 gm LIPIDS: ML gm SODIUM CHLORIDE: 90 mEq SODIUM ACETATE: mEq SODIUM PHOSPHATE: mmol POTASSIUM CHLORIDE: 70 mEq POTASSIUM ACETATE: mEq POTASSIUM PHOSPHATE: 13.6 mmol MAGNESIUM: 6 mEq CALCIUM: 10 mEq INSULIN: units MULTIPLE VITAMIN: 10 ml TRACE ELEMENTS: 1 ml(s) TPN PLAN: Give 15mMol potassium phosphate as phosphate and potassium levels are slightly low. Increased Potassium KCL in TPN by 20meq due to low potassium level. R: Change TPN as outlined above. Will monitor electrolytes, glucose, and tolerance to TPN. Clemente Ann [facility], 12/01/18 2016
[2018-12-01] MEDS ORDERED: POTASSIUM PHOSPHATE DIBASIC 15 MMOL in IV NORMAL SALINE 250ML 250 ML IV ONE (15:00)
--- NOTE | 2018-12-01 16:13 | PDOC ---
PROGRESS NOTES Subjective Subjective Patient passing gas and has BS but no BM x 2 days. Patient having NG tube clamped as trial before d/c of NG. Objective Objective Vital Signs Date Time Temp Pulse Resp B/P (MAP) Pulse Ox O2 Delivery O2 Flow Rate FiO2 12/01/18 14:35 97.5 67 20 127/88 (101) 98 Nasal Cannula 4.0 97.5 Intake and Output 12/01/18 06:59 Intake Total 0 ml Output Total 775 ml Balance -775 ml Intake Oral 0 ml Output Urine Total 775 ml # Voids 1 Physical Exam Abdomen: Other (+bs) Heart: Regular rate Extremities: No edema General: Alert Lungs: Other (course) Assessment Assessment Problems Medical Problems: (1) Pneumonia Status: Acute CHF + blood Clx SBO esophagitis possible GI bleed aspiration pneumonia anemia hyperglycemia CAD old compression fractures of spine contusion left eye from recent fall Hx of afib Pulm Fibrosis Severe protein malnutrition Plan Plan of Care TPN D/C NG if no significant NG out put after clapping continue Pulm Care Proceed with PT/OT Comment Review of Relevant I have reviewed the following items sherine (where applicable) has been applied. Labs Laboratory Tests Test 11/29/18 16:52 11/29/18 20:39 11/30/18 07:32 11/30/18 10:57 Glucose (Fingerstick) 148 mg/dL (70-99) 171 mg/dL (70-99) 167 mg/dL (70-99) 157 mg/dL (70-99) Test 11/30/18 16:55 11/30/18 19:45 11/30/18 21:56 12/01/18 05:00 Glucose (Fingerstick) 162 mg/dL (70-99) 195 mg/dL (70-99) Potassium Level 3.5 mmol/L (3.5-5.1) 3.4 mmol/L (3.5-5.1) Magnesium Level 2.2 mg/dL (1.8-2.4) 2.5 mg/dL (1.8-2.4) Sodium Level 141 mmol/L (136-145) Chloride Level 102 mmol/L (98-107) Carbon Dioxide Level 34 mmol/L (21-32) Anion Gap 5 (6-14) Blood Urea Nitrogen 29 mg/dL (8-26) Creatinine 0.7 mg/dL (0.7-1.3) Estimated GFR (Cockcroft-Gault) 109.6 Glucose Level 304 mg/dL (70-99) Calcium Level 9.3 mg/dL (8.5-10.1) Phosphorus Level 2.2 mg/dL (2.6-4.7) Triglycerides Level 146 mg/dL (0-150) Test 12/01/18 07:19 12/01/18 11:47 Glucose (Fingerstick) 324 mg/dL (70-99) 291 mg/dL (70-99) Laboratory Tests Test 11/30/18 16:55 11/30/18 19:45 11/30/18 21:56 12/01/18 05:00 Glucose (Fingerstick) 162 mg/dL (70-99) 195 mg/dL (70-99) Potassium Level 3.5 mmol/L (3.5-5.1) 3.4 mmol/L (3.5-5.1) Magnesium Level 2.2 mg/dL (1.8-2.4) 2.5 mg/dL (1.8-2.4) Sodium Level 141 mmol/L (136-145) Chloride Level 102 mmol/L (98-107) Carbon Dioxide Level 34 mmol/L (21-32) Anion Gap 5 (6-14) Blood Urea Nitrogen 29 mg/dL (8-26) Creatinine 0.7 mg/dL (0.7-1.3) Estimated GFR (Cockcroft-Gault) 109.6 Glucose Level 304 mg/dL (70-99) Calcium Level 9.3 mg/dL (8.5-10.1) Phosphorus Level 2.2 mg/dL (2.6-4.7) Triglycerides Level 146 mg/dL (0-150) Test 12/01/18 07:19 12/01/18 11:47 Glucose (Fingerstick) 324 mg/dL (70-99) 291 mg/dL (70-99) Microbiology 11/24/18 Blood Culture - Final, Complete 11/24/18 Blood Culture Result 1 (ATA) - Final, Complete 11/24/18 Antimicrobic Susceptibility - Final, Complete Medications Current Medications Fentanyl Citrate (Fentanyl 2ml Vial) 50 mcg 1X ONCE IV Last administered on 11/24/18at 03:45; Start 11/24/18 at 03:15; Stop 11/24/18 at 03:18; Status DC Sodium Chloride 1,000 ml @ 1,000 mls/hr 1X ONCE IV Last administered on 11/24/18at 03:45; Start 11/24/18 at 03:15; Stop 11/24/18 at 04:14; Status DC Ondansetron HCl (Zofran) 4 mg 1X ONCE IV Last administered on 11/24/18at 03:45; Start 11/24/18 at 03:15; Stop 11/24/18 at 03:18; Status DC Iohexol (Omnipaque 300 Mg/ml) 75 ml 1X ONCE IV Last administered on 11/24/18at 04:30; Start 11/24/18 at 03:45; Stop 11/24/18 at 03:46; Status DC Info (CONTRAST GIVEN -- Rx MONITORING) 1 each PRN DAILY PRN MC SEE COMMENTS; Start 11/24/18 at 03:45; Stop 11/26/18 at 03:44; Status DC Benzocaine (Hurricaine One) 1 spray 1X ONCE MM ; Start 11/24/18 at 05:15; Stop 11/24/18 at 05:16; Status DC Morphine Sulfate (Morphine Sulfate) 4 mg 1X ONCE IV Last administered on 11/24/18at 06:03; Start 11/24/18 at 06:00; Stop 11/24/18 at 06:01; Status DC Sodium Chloride 1,000 ml @ 1,000 mls/hr 1X ONCE IV Last administered on 11/24/18at 06:03; Start 11/24/18 at 06:00; Stop 11/24/18 at 06:59; Status DC Morphine Sulfate (Morphine Sulfate) 4 mg PRN Q2HR PRN IV PAIN Last administered on 12/01/18at 09:02; Start 11/24/18 at 06:00 Sodium Chloride 1,000 ml @ 125 mls/hr 1X ONCE IV Last administered on 11/24/18at 08:10; Start 11/24/18 at 06:00; Stop 11/24/18 at 13:59; Status DC Ondansetron HCl (Zofran) 4 mg PRN Q6HRS PRN IV NAUSEA/VOMITING; Start 11/24/18 at 06:00 Piperacillin Sod/ Tazobactam Sod (Zosyn Per Pharmacy) 1 each PRN DAILY PRN MC SEE COMMENTS; Start 11/24/18 at 06:00 Piperacillin Sod/ Tazobactam Sod 3.375 gm/Sodium Chloride 50 ml @ 100 mls/hr 1X ONCE IV Last administered on 11/24/18at 06:53; Start 11/24/18 at 06:15; Stop 11/24/18 at 06:44; Status DC Piperacillin Sod/ Tazobactam Sod 3.375 gm/Sodium Chloride 50 ml @ 100 mls/hr Q6HRS IV Last administered on 12/01/18at 12:29; Start 11/24/18 at 12:00 Pantoprazole Sodium (PROTONIX VIAL for IV PUSH) 40 mg DAILYAC IVP Last administered on 11/25/18at 09:04; Start 11/24/18 at 11:30; Stop 11/25/18 at 11:36; Status DC Insulin Human Lispro (HumaLOG) 0-5 UNITS TIDWMEALS SQ Last administered on 12/01/18at 12:40; Start 11/24/18 at 12:00 Dextrose (Dextrose 50%-Water Syringe) 12.5 gm PRN Q15MIN PRN IV SEE COMMENTS; Start 11/24/18 at 09:45 Amino Acids/ Glycerin/ Electrolytes 1,000 ml @ 50 mls/hr Q20H IV Last administered on 11/29/18at 20:24; Start 11/24/18 at 09:45; Stop 11/30/18 at 21:00; Status DC Budesonide (Pulmicort) 0.5 mg RTBID NEB Last administered on 12/01/18at 06:17; Start 11/24/18 at 10:00 Albuterol/ Ipratropium (Duoneb) 3 ml RTQID NEB Last administered on 12/01/18 11:06; Start 11/24/18 at 12:00 Furosemide (Lasix) 40 mg 1X ONCE IVP Last administered on 11/25/18at 04:44; Start 11/25/18 at 05:00; Stop 11/25/18 at 05:01; Status DC Albuterol Sulfate (Ventolin Neb Soln) 2.5 mg PRN Q6HRS PRN NEB SHORTNESS OF LAVERN ATH Last administered on 11/28/18at 03:57; Start 11/25/18 at 04:45 Pantoprazole Sodium (PROTONIX VIAL for IV PUSH) 40 mg BIDAC IVP Last administered on 12/01/18at 08:49; Start 11/25/18 at 16:30 Potassium Chloride/Water 100 ml @ 100 mls/hr Q1H IV Last administered on 11/25/18at 16:26; Start 11/25/18 at 13:00; Stop 11/25/18 at 16:59; Status DC Furosemide (Lasix) 20 mg 1X ONCE IVP Last administered on 11/26/18at 00:34; Start 11/26/18 at 01:00; Stop 11/26/18 at 01:01; Status DC Micafungin Sodium 100 mg/Dextrose 100 ml @ 100 mls/hr Q24H IV Last administered on 11/30/18at 09:14; Start 11/26/18 at 09:00; Stop 11/30/18 at 14:12; Status DC Furosemide (Lasix) 40 mg 1X ONCE IVP Last administered on 11/26/18at 10:33; Start 11/26/18 at 09:15; Stop 11/26/18 at 09:16; Status DC Albumin Human 100 ml @ 100 mls/hr 1X ONCE IV Last administered on 11/26/18at 10:34; Start 11/26/18 at 09:15; Stop 11/26/18 at 10:14; Status DC Metoprolol Tartrate (Lopressor Vial) 5 mg PRN Q6HRS PRN IVP HYPERTENSION, SEE COMMENTS; Start 11/26/18 at 12:00; Stop 11/26/18 at 14:22; Status DC Metoprolol Tartrate (Lopressor Vial) 5 mg Q6HRS IVP Last administered on 12/01 12:27; Start 11/26/18 at 16:00 Furosemide (Lasix) 40 mg DAILY IVP Last administered on 12/01/18at 08:50; Start 11/27/18 at 09:00 Ondansetron HCl (Zofran) 4 mg PRN Q6HRS PRN IV NAUSEA/VOMITING; Start 11/29/18 at 07:00; Stop 11/29/18 at 19:00; Status DC Fentanyl Citrate (Fentanyl 2ml Vial) 25 mcg PRN Q5MIN PRN IV MILD PAIN; Start 11/29/18 at 07:00; Stop 11/29/18 at 19:00; Status DC Fentanyl Citrate (Fentanyl 2ml Vial) 50 mcg PRN Q5MIN PRN IV MODERATE TO SEVERE PAIN; Start 11/29/18 at 07:00; Stop 11/29/18 at 19:00; Status DC Morphine Sulfate (Morphine Sulfate) 1 mg PRN Q10MIN PRN IV SEVERE PAIN; Start 11/29/18 at 07:00; Stop 11/29/18 at 19:00; Status DC Ringer's Solution 1,000 ml @ 30 mls/hr Q24H IV ; Start 11/29/18 at 07:00; Stop 11/29/18 at 18:59; Status DC Lidocaine HCl (Xylocaine-Mpf 1% 2ml Vial) 2 ml PRN 1X PRN ID PRIOR TO IV START; Start 11/29/18 at 07:00; Stop 11/29/18 at 19:00; Status DC Hydromorphone HCl (Dilaudid) 0.5 mg PRN Q10MIN PRN IV SEV PAIN, Second choice; Start 11/29/18 at 07:00; Stop 11/29/18 at 19:00; Status DC Prochlorperazine Edisylate (Compazine) 5 mg PACU PRN PRN IV NAUSEA, MRX1; Start 11/29/18 at 07:00; Stop 11/29/18 at 19:00; Status DC Levothyroxine Sodium 50 mcg/ Sodium Chloride 5 ml @ 100 mls/hr Q3DAYS IVP Last administered on 12/01/18at 08:49; Start 12/01/18 at 09:00 Potassium Chloride/Water 100 ml @ 100 mls/hr Q1H IV Last administered on 11/27/18at 16:39; Start 11/27/18 at 12:30; Stop 11/27/18 at 16:29; Status DC Methylprednisolone Sodium Succinate (SOLU-Medrol 125MG VIAL) 80 mg Q8HRS IV Last administered on 12/01/18at 12:35; Start 11/28/18 at 17:00 Potassium Chloride/Water 100 ml @ 100 mls/hr Q1H IV Last administered on 11/29/18at 14:30; Start 11/29/18 at 07:00; Stop 11/29/18 at 10:59; Status DC Info (Tpn Per Pharmacy) 1 each PRN DAILY PRN MC SEE COMMENTS Last administered on 12/01/18at 14:37; Start 11/30/18 at 14:45 Sodium Chloride 90 meq/Potassium Chloride 50 meq/ Potassium Phosphate 13.6 mmol/Magnesium Sulfate 10 meq/ Calcium Gluconate 10 meq/ Multivitamins 10 m l/Chromium/ Copper/Manganese/ Seleni/Zn 1 ml/ Total Parenteral Nutrition/Amino Acids/Dextrose/ Fat Emulsion Intravenous 1,512 ml @ 63 mls/hr TPN CONT IV Last administered on 11/30/18at 21:11; Start 11/30/18 at 22:00; Stop 12/01/18 at 21:59 Potassium Phosphate 15 mmol/ Sodium Chloride 255 ml @ 85 mls/hr 1X ONCE IV Last administered on 12/01/18at 15:09; Start 12/01/18 at 15:00; Stop 12/01/18 at 17:59 Sodium Chloride 90 meq/Potassium Chloride 70 meq/ Potassium Phosphate 13.6 mmol/Magnesium Sulfate 10 meq/ Calcium Gluconate 10 meq/ Multivitamins 10 ml/Chromium/ Copper/Manganese/ Seleni/Zn 1 ml/ Total Parenteral Nutrition/Amino Acids/Dextrose/ Fat Emulsion Intravenous 1,512 ml @ 63 mls/hr TPN CONT IV ; Start 12/01/18 at 22:00; Stop 12/02/18 at 21:59 Active Scripts Active Sertraline Hcl 25 Mg Tablet 50 Mg PO QHS 30 Days Magnesium Chloride 70 Mg Tablet. 64 Mg PO DAILY 30 Days Synthroid (Levothyroxine Sodium) 88 Mcg Tablet 88 Mcg PO DAILY06 30 Days Prednisone 20 Mg Tablet 20 Mg PO DAILY 30 Days Budesonide 0.5 Mg/2 Ml Ampul.neb 0.5 Mg NEB RTBID 30 Days Klor-Con 10 (Potassium Chloride) 10 Meq Tablet.er 1 Tab PO DAILY Lasix (Furosemide) 40 Mg Tablet 1 Tab PO DAILY Aspirin Ec (Aspirin) 81 Mg Tablet. 81 Mg PO DAILYWBKFT 30 Days Duoneb 0.5-3(2.5) Mg/3 Ml (Albuterol/Ipratropium) 3 Ml Ampul.neb 3 Ml NEB RTQID 30 Days Diltiazem 24HR Cd (Diltiazem Hcl) 120 Mg Cap.er.24h 120 Mg PO DAILY 30 Days Reported Hydrocodone-Apap 7.5-325 (Hydrocodone Bit/Acetaminophen) 1 Tab Tablet 1 Tab PO PRN Q6HRS PRN Omeprazole 40 Mg Capsule.dr 40 Mg PO DAILY Vitals/I & O Vital Sign - Last 24 Hours 11/30/18 11/30/18 11/30/18 11/30/18 17:30 19:00 20:00 20:16 Temp 97.7 97.7 Pulse 80 76 Resp 17 B/P (MAP) 118/68 115/67 (83) Pulse Ox 97 100 O2 Delivery Nasal Cannula Nasal Cannula Nasal Cannula O2 Flow Rate 4.0 4.0 4.0 11/30/18 11/30/18 12/01/18 12/01/18 22:08 22:47 00:09 00:10 Temp 98.1 98.1 Pulse 90 77 Resp 19 B/P (MAP) 117/65 (82) 117/70 Pulse Ox 93 O2 Delivery Nasal Cannula Nasal Cannula Nasal Cannula O2 Flow Rate 4.0 4.0 4.0 12/01/18 12/01/18 12/01/18 12/01/18 03:00 05:46 05:51 06:17 Pulse 73 81 Resp 17 B/P (MAP) 108/62 (77) 132/76 Pulse Ox 98 O2 Delivery Nasal Cannula Nasal Cannula Nasal Cannula O2 Flow Rate 4.0 4.0 4.0 12/01/18 12/01/18 12/01/18 12/01/18 07:05 07:41 09:02 09:30 Temp 98.1 98.1 Pulse 73 Resp 19 4 16 B/P (MAP) 138/76 (96) Pulse Ox 92 O2 Delivery Nasal Cannula Nasal Cannula Nasal Cannula Nasal Cannula O2 Flow Rate 4.0 4.0 4.0 12/01/18 12/01/18 12/01/18 12/01/18 10:37 11:07 12:27 14:35 Temp 97.6 97.5 97.6 97.5 Pulse 70 70 67 Resp 20 20 B/P (MAP) 129/77 (94) 129/77 127/88 (101) Pulse Ox 96 98 O2 Delivery Nasal Cannula Nasal Cannula Nasal Cannula O2 Flow Rate 4.0 4.0 4.0 Intake and Output 11/30/18 11/30/18 12/01/18 14:59 22:59 06:59 Intake Total 0 ml 0 ml 0 ml Output Total 250 ml 425 ml 100 ml Balance -250 ml -425 ml -100 ml Nutrition Consultation Dietary Evaluation: Recommendations by RD: PPN/TPN Comments: continue PPN for short term nutrition Expected Outcomes/Goals: diet adv/ tolerance Malnutrition Findings: Body Fat Depletion (Non Severe: Mild Depletion Weight Status: Underweight LOURDES POLLOCK MD December 01, 2018 16:13
--- NOTE | 2018-12-01 17:41 | PDOC ---
PULMONARY PROGRESS NOTES Subjective FEELS BETTER IN CHAIR HAD BM Vitals Vital Signs Date Time Temp Pulse Resp B/P (MAP) Pulse Ox O2 Delivery O2 Flow Rate FiO2 12/01/18 17:16 4 Nasal Cannula 12/01/18 17:12 73 144/83 12/01/18 14:35 97.5 98 4.0 97.5 ROS: No Nausea, No Chest Pain, No Increase Cough General: Alert HEENT: Other Lungs: Crackles Cardiovascular: S1, S2 Abdomen: Soft, Non-tender, Other Neuro Exam: Alert Extremities: No Edema, Other Labs Laboratory Tests Test 11/29/18 20:39 11/30/18 07:32 11/30/18 10:57 11/30/18 16:55 Glucose (Fingerstick) 171 mg/dL (70-99) 167 mg/dL (70-99) 157 mg/dL (70-99) 162 mg/dL (70-99) Test 11/30/18 19:45 11/30/18 21:56 12/01/18 05:00 12/01/18 07:19 Potassium Level 3.5 mmol/L (3.5-5.1) 3.4 mmol/L (3.5-5.1) Magnesium Level 2.2 mg/dL (1.8-2.4) 2.5 mg/dL (1.8-2.4) Glucose (Fingerstick) 195 mg/dL (70-99) 324 mg/dL (70-99) Sodium Level 141 mmol/L (136-145) Chloride Level 102 mmol/L (98-107) Carbon Dioxide Level 34 mmol/L (21-32) Anion Gap 5 (6-14) Blood Urea Nitrogen 29 mg/dL (8-26) Creatinine 0.7 mg/dL (0.7-1.3) Estimated GFR (Cockcroft-Gault) 109.6 Glucose Level 304 mg/dL (70-99) Calcium Level 9.3 mg/dL (8.5-10.1) Phosphorus Level 2.2 mg/dL (2.6-4.7) Triglycerides Level 146 mg/dL (0-150) Test 12/01/18 11:47 12/01/18 17:08 Glucose (Fingerstick) 291 mg/dL (70-99) 218 mg/dL (70-99) Laboratory Tests Test 11/30/18 19:45 11/30/18 21:56 12/01/18 05:00 12/01/18 07:19 Potassium Level 3.5 mmol/L (3.5-5.1) 3.4 mmol/L (3.5-5.1) Magnesium Level 2.2 mg/dL (1.8-2.4) 2.5 mg/dL (1.8-2.4) Glucose (Fingerstick) 195 mg/dL (70-99) 324 mg/dL (70-99) Sodium Level 141 mmol/L (136-145) Chloride Level 102 mmol/L (98-107) Carbon Dioxide Level 34 mmol/L (21-32) Anion Gap 5 (6-14) Blood Urea Nitrogen 29 mg/dL (8-26) Creatinine 0.7 mg/dL (0.7-1.3) Estimated GFR (Cockcroft-Gault) 109.6 Glucose Level 304 mg/dL (70-99) Calcium Level 9.3 mg/dL (8.5-10.1) Phosphorus Level 2.2 mg/dL (2.6-4.7) Triglycerides Level 146 mg/dL (0-150) Test 12/01/18 11:47 12/01/18 17:08 Glucose (Fingerstick) 291 mg/dL (70-99) 218 mg/dL (70-99) Medications Active Scripts Medications Dose Route/Sig Max Daily Dose Days Date Category Sertraline Hcl 25 Mg Tablet 50 Mg PO QHS 30 10/01/18 Rx Magnesium Chloride 70 Mg Tablet.dr 64 Mg PO DAILY 08/30/18 Rx Synthroid (Levothyroxine Sodium) 88 Mcg Tablet 88 Mcg PO DAILY06 08/30/18 Rx Prednisone 20 Mg Tablet 20 Mg PO DAILY 08/30/18 Rx Budesonide 0.5 Mg/2 Ml Ampul.neb 0.5 Mg NEB RTBID 08/30/18 Rx Hydrocodone-Apap 7.5-325 (Hydrocodone Bit/Acetaminophen) 1 Tab Tablet 1 Tab PO PRN Q6HRS PRN 08/26/18 Reported Omeprazole 40 Mg Capsule.dr 40 Mg PO DAILY 08/26/18 Reported Klor-Con 10 (Potassium Chloride) 10 Meq Tablet.er 1 Tab PO DAILY 07/16/18 Rx Lasix (Furosemide) 40 Mg Tablet 1 Tab PO DAILY 07/16/18 Rx Aspirin Ec (Aspirin) 81 Mg Tablet.dr 81 Mg PO DAILYWBKFT 07/16/18 Rx Duoneb 0.5-3(2.5) Mg/3 Ml (Albuterol/Ipratropium) 3 Ml Ampul.neb 3 Ml NEB RTQID 07/01/18 Rx Diltiazem 24HR Cd (Diltiazem Hcl) 120 Mg Cap.er.24h 120 Mg PO DAILY 07/01/18 Rx Impression . IMPRESSION: 1. Acute hypoxemic respiratory failure. 2. Abnormal x-ray compatible with bilateral pulmonary infiltrates, suspect combination of pulmonary edema, pulmonary fibrosis, and acute lung injury from possible aspiration. 3. Aspiration pneumonia. 4. Small-bowel obstruction. 5. Dysphagia. 6. Leukocytosis. 7. Bacteremia. 8. Atrial fibrillation. 9. Olahm-lg-mzbdoxx heart failure. Plan . BETTER TODAY HAD B, UP TO CHAIR D/W RN CONTINUE SUPPORT FOLLOW SURGERY INPUT ANTIBX PT DIURESE STERNOIDS [employer] TAPER JON EDWARDS MD December 01, 2018 17:41
--- NOTE | 2018-12-01 18:49 | NUR ---
HAWA IS SITTING UP IN RECLINER. NG IS OFF AT THIS TIME. HE IS TOLERATING NG OFF AND ON
[2018-12-01 19:00] VITALS: BP 128/77
[2018-12-01] MEDS: methylPREDNISolone SOD SUCC PF 40 MG/ML VIAL. IV SCH (20:44)
[2018-12-01] MEDS ORDERED: [UNRECOGNIZED DRUG - OTHER] IV SCH ×10 (22:00)
[2018-12-01] MEDS ORDERED: TOTAL PARENTERAL NUTRITION IV SCH ×10 (22:00)
[2018-12-01] MEDS ORDERED: DEXTROSE 70% IV SCH ×10 (22:00)
[2018-12-01] MEDS ORDERED: AMINO ACID IV SCH ×10 (22:00)
[2018-12-01 23:00] VITALS: BP 134/76
[2018-12-02 03:00] VITALS: BP 121/73
[2018-12-02 04:35] LABS: CALCIUM 9.3 mg/dL (8.5-10.1); CREATININE 0.7 mg/dL (0.7-1.3); GFR 109.6; MAGNESIUM 2.3 mg/dL (1.8-2.4); PHOSPHORUS 2.3 mg/dL (2.6-4.7); POTASSIUM 3.7 mmol/L (3.5-5.1)
[2018-12-02] MEDS: METOPROLOL TARTRATE 5 MG/5 ML VIAL. IVP SCH ×5 (06:09→23:49)
[2018-12-02] MEDS: PIPERACILLIN/TAZOBACTAM 3.375 GM in IV NORMAL SALINE 50ML 50 ML IV SCH ×6 (06:09→23:44)
[2018-12-02] MEDS: PANTOPRAZOLE IV PUSH 40 MG VIAL. IVP SCH (06:17)
[2018-12-02 07:05] VITALS: BP 129/76
[2018-12-02] MEDS: BUDESONIDE 0.5 MG/2 ML NEBU. NEB SCH ×2 (07:37→20:45)
[2018-12-02] MEDS: IPRATRPIUM/ALBUTEROL 0.5/2.5MG 3 ML NEBU. NEB SCH ×4 (07:37→20:45)
[2018-12-02] MEDS: MORPHINE SULFATE 4 MG/ML VIAL. IV PRN ×4 (09:03→20:57)
[2018-12-02] MEDS: methylPREDNISolone SOD SUCC PF 40 MG/ML VIAL. IV SCH (09:06)
[2018-12-02] MEDS: FUROSEMIDE 40 MG/4 ML VIAL. IVP SCH (09:08)
[2018-12-02] MEDS: INSULIN LISPRO 300 UNITS/3 ML INSULN.PEN. SQ SCH ×4 (09:11→21:00)
--- NOTE | 2018-12-02 09:19 | RAD ---
Portable abdomen, 2 views, 12/02/2018: HISTORY: Small bowel obstruction Comparison is made to a study from 11/28/2018. The NG tube has pulled back and its tip now lies near the level of the GE junction. A sidehole lies in the distal esophagus. There is a moderate amount gas in large and small bowel in a nonspecific pattern. There is a moderate amount stool in scattered portions of the colon. No free air is evident in the abdomen. Moderate scattered arterial calcifications are present. Predominantly interstitial infiltrates are again noted in the lung bases. IMPRESSION: 1. The NG tube has pulled back with its tip now lying at the level of the GE junction. 2. No radiographic evidence of significant small bowel obstruction. Electronically signed by: Paulo Sanchez MD (12/02/2018 9:16 AM) [facility]
--- NOTE | 2018-12-02 10:57 | PDOC ---
Infectious Disease Note Subjective Subjective feeling better ROS ROS no n/v/d/ Vital Sign Vital Signs Vital Signs Date Time Temp Pulse Resp B/P (MAP) Pulse Ox O2 Delivery O2 Flow Rate FiO2 12/02/18 09:03 95 Nasal Cannula 4.0 12/02/18 07:05 97.5 66 22 129/76 (93) 97.5 Physical Exam PHYSICAL EXAM GENERAL: Propped up in bed, weak appearing, HEENT: Ecchymosis about his left eye. Oral cavity and pharynx w/ dried secretions, NGT to LIWS NECK: Supple, no JVD. LUNGS: + rhonchi. Nonlabored HEART: S1, S2. ABDOMEN: Mildly distended, soft, NT, decreased bowel sounds. EXTREMITIES: Without clubbing or cyanosis. 2+ edema lower extremities, bilaterally NEUROLOGIC: Sleepy, answering questions appropriately SKIN: Without generalized signs of rash. PIV ok Labs Lab Laboratory Tests Test 12/01/18 11:47 12/01/18 17:08 12/01/18 21:25 12/02/18 04:05 Glucose (Fingerstick) 291 mg/dL (70-99) 218 mg/dL (70-99) 156 mg/dL (70-99) Sodium Level 144 mmol/L (136-145) Potassium Level 3.7 mmol/L (3.5-5.1) Chloride Level 105 mmol/L (98-107) Carbon Dioxide Level 36 mmol/L (21-32) Anion Gap 3 (6-14) Blood Urea Nitrogen 26 mg/dL (8-26) Creatinine 0.7 mg/dL (0.7-1.3) Estimated GFR (Cockcroft-Gault) 109.6 Glucose Level 341 mg/dL (70-99) Calcium Level 9.3 mg/dL (8.5-10.1) Phosphorus Level 2.3 mg/dL (2.6-4.7) Magnesium Level 2.3 mg/dL (1.8-2.4) Test 12/02/18 07:15 Glucose (Fingerstick) 363 mg/dL (70-99) Micro BLOOD CULTURE LC Preliminary Preliminary report BLD CULT RESULT 1 Preliminary Comment Streptococcus salivarius group Performed at: - [facility] [address], [place], [place] [id number] Material Analyst: ANGELES Camargo MD, Phone: [phone] Objective Assessment Bacteremia from 11/24 - (gram neg coccobacilli in 1/4 bottles) Strep salivarius SBO Leukocytosis - better ? thrush AFib CHF Plan Plan of Care Cont Zosyn f/u cultures Monitor labs Oral care Maintain aspiration precautions Surgery possibly on 11/29 Supportive care HOLLY MCKEON MD December 02, 2018 10:57
[2018-12-02 11:05] VITALS: BP 143/70
--- NOTE | 2018-12-02 11:26 | PDOC ---
PROGRESS NOTES Subjective Subjective Patient feeling better today. Patient would like NG out intermittent clapping ordered by surgery - await their recc. Patient with BM yesterday. KUB improved NG at GE junction. Palliative care discussed with patient and patient not interested in this at this time. BS high today with TPN and IV steroids. Objective Objective Vital Signs Date Time Temp Pulse Resp B/P (MAP) Pulse Ox O2 Delivery O2 Flow Rate FiO2 12/02/18 11:05 97.5 73 20 143/70 (94) 93 Nasal Cannula 4.0 97.5 Intake and Output 12/02/18 06:59 Intake Total 0 ml Output Total 1225 ml Balance -1225 ml Intake Oral 0 ml Output Urine Total 1150 ml Gastric Drainage Total 75 ml # Bowel Movements 1 Physical Exam Abdomen: Other (+ BS) Heart: Regular rate Extremities: No edema General: Alert Lungs: Other (course) Assessment Assessment Problems Medical Problems: (1) Pneumonia Status: Acute SBO esophagitis possible GI bleed aspiration pneumonia anemia hyperglycemia CAD 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 Labs Laboratory Tests Test 11/30/18 16:55 11/30/18 19:45 11/30/18 21:56 12/01/18 05:00 Glucose (Fingerstick) 162 mg/dL (70-99) 195 mg/dL (70-99) Potassium Level 3.5 mmol/L (3.5-5.1) 3.4 mmol/L (3.5-5.1) Magnesium Level 2.2 mg/dL (1.8-2.4) 2.5 mg/dL (1.8-2.4) Sodium Level 141 mmol/L (136-145) Chloride Level 102 mmol/L (98-107) Carbon Dioxide Level 34 mmol/L (21-32) Anion Gap 5 (6-14) Blood Urea Nitrogen 29 mg/dL (8-26) Creatinine 0.7 mg/dL (0.7-1.3) Estimated GFR (Cockcroft-Gault) 109.6 Glucose Level 304 mg/dL (70-99) Calcium Level 9.3 mg/dL (8.5-10.1) Phosphorus Level 2.2 mg/dL (2.6-4.7) Triglycerides Level 146 mg/dL (0-150) Test 12/01/18 07:19 12/01/18 11:47 12/01/18 17:08 12/01/18 21:25 Glucose (Fingerstick) 324 mg/dL (70-99) 291 mg/dL (70-99) 218 mg/dL (70-99) 156 mg/dL (70-99) Test 12/02/18 04:05 12/02/18 07:15 Sodium Level 144 mmol/L (136-145) Potassium Level 3.7 mmol/L (3.5-5.1) Chloride Level 105 mmol/L (98-107) Carbon Dioxide Level 36 mmol/L (21-32) Anion Gap 3 (6-14) Blood Urea Nitrogen 26 mg/dL (8-26) Creatinine 0.7 mg/dL (0.7-1.3) Estimated GFR (Cockcroft-Gault) 109.6 Glucose Level 341 mg/dL (70-99) Calcium Level 9.3 mg/dL (8.5-10.1) Phosphorus Level 2.3 mg/dL (2.6-4.7) Magnesium Level 2.3 mg/dL (1.8-2.4) Glucose (Fingerstick) 363 mg/dL (70-99) Laboratory Tests Test 12/01/18 11:47 12/01/18 17:08 12/01/18 21:25 12/02/18 04:05 Glucose (Fingerstick) 291 mg/dL (70-99) 218 mg/dL (70-99) 156 mg/dL (70-99) Sodium Level 144 mmol/L (136-145) Potassium Level 3.7 mmol/L (3.5-5.1) Chloride Level 105 mmol/L (98-107) Carbon Dioxide Level 36 mmol/L (21-32) Anion Gap 3 (6-14) Blood Urea Nitrogen 26 mg/dL (8-26) Creatinine 0.7 mg/dL (0.7-1.3) Estimated GFR (Cockcroft-Gault) 109.6 Glucose Level 341 mg/dL (70-99) Calcium Level 9.3 mg/dL (8.5-10.1) Phosphorus Level 2.3 mg/dL (2.6-4.7) Magnesium Level 2.3 mg/dL (1.8-2.4) Test 12/02/18 07:15 Glucose (Fingerstick) 363 mg/dL (70-99) Microbiology 11/24/18 Blood Culture - Final, Complete 11/24/18 Blood Culture Result 1 (ATA) - Final, Complete 11/24/18 Antimicrobic Susceptibility - Final, Complete Medications Current Medications Fentanyl Citrate (Fentanyl 2ml Vial) 50 mcg 1X ONCE IV Last administered on 11/24/18at 03:45; Start 11/24/18 at 03:15; Stop 11/24/18 at 03:18; Status DC Sodium Chloride 1,000 ml @ 1,000 mls/hr 1X ONCE IV Last administered on 11/24/18at 03:45; Start 11/24/18 at 03:15; Stop 11/24/18 at 04:14; Status DC Ondansetron HCl (Zofran) 4 mg 1X ONCE IV Last administered on 11/24/18at 03:45; Start 11/24/18 at 03:15; Stop 11/24/18 at 03:18; Status DC Iohexol (Omnipaque 300 Mg/ml) 75 ml 1X ONCE IV Last administered on 11/24/18at 04:30; Start 11/24/18 at 03:45; Stop 11/24/18 at 03:46; Status DC Info (CONTRAST GIVEN -- Rx MONITORING) 1 each PRN DAILY PRN MC SEE COMMENTS; Start 11/24/18 at 03:45; Stop 11/26/18 at 03:44; Status DC Benzocaine (Hurricaine One) 1 spray 1X ONCE MM ; Start 11/24/18 at 05:15; Stop 11/24/18 at 05:16; Status DC Morphine Sulfate (Morphine Sulfate) 4 mg 1X ONCE IV Last administered on 11/24/18at 06:03; Start 11/24/18 at 06:00; Stop 11/24/18 at 06:01; Status DC Sodium Chloride 1,000 ml @ 1,000 mls/hr 1X ONCE IV Last administered on 11/24/18 06:03; Start 11/24/18 at 06:00; Stop 11/24/18 at 06:59; Status DC Morphine Sulfate (Morphine Sulfate) 4 mg PRN Q2HR PRN IV PAIN Last administered on 12/02/18 09:03; Start 11/24/18 at 06:00 Sodium Chloride 1,000 ml @ 125 mls/hr 1X ONCE IV Last administered on 11/24/18at 08:10; Start 11/24/18 at 06:00; Stop 11/24/18 at 13:59; Status DC Ondansetron HCl (Zofran) 4 mg PRN Q6HRS PRN IV NAUSEA/VOMITING; Start 11/24/18 at 06:00 Piperacillin Sod/ Tazobactam Sod (Zosyn Per Pharmacy) 1 each PRN DAILY PRN MC SEE COMMENTS; Start 11/24/18 at 06:00 Piperacillin Sod/ Tazobactam Sod 3.375 gm/Sodium Chloride 50 ml @ 100 mls/hr 1X ONCE IV Last administered on 11/24/18at 06:53; Start 11/24/18 at 06:15; Stop 11/24/18 at 06:44; Status DC Piperacillin Sod/ Tazobactam Sod 3.375 gm/Sodium Chloride 50 ml @ 100 mls/hr Q6HRS IV Last administered on 12/02/18 06:09; Start 11/24/18 at 12:00 Pantoprazole Sodium (PROTONIX VIAL for IV PUSH) 40 mg DAILYAC IVP Last administered on 11/25/18 09:04; Start 11/24/18 at 11:30; Stop 11/25/18 at 11:36; Status DC Insulin Human Lispro (HumaLOG) 0-5 UNITS TIDWMEALS SQ Last administered on 12/02/18 09:11; Start 11/24/18 at 12:00; Stop 12/02/18 at 11:09; Status DC Dextrose (Dextrose 50%-Water Syringe) 12.5 gm PRN Q15MIN PRN IV SEE COMMENTS; Start 11/24/18 at 09:45 Amino Acids/ Glycerin/ Electrolytes 1,000 ml @ 50 mls/hr Q20H IV Last admin istered on 11/29/18at 20:24; Start 11/24/18 at 09:45; Stop 11/30/18 at 21:00; Status DC Budesonide (Pulmicort) 0.5 mg RTBID NEB Last administered on 12/02/18 07:37; Start 11/24/18 at 10:00 Albuterol/ Ipratropium (Duoneb) 3 ml RTQID NEB Last administered on 12/02/18 07:37; Start 11/24/18 at 12:00 Furosemide (Lasix) 40 mg 1X ONCE IVP Last administered on 11/25/18at 04:44; Start 11/25/18 at 05:00; Stop 11/25/18 at 05:01; Status DC Albuterol Sulfate (Ventolin Neb Soln) 2.5 mg PRN Q6HRS PRN NEB SHORTNESS OF BREATH Last administered on 11/28/18at 03:57; Start 11/25/18 at 04:45 Pantoprazole Sodium (PROTONIX VIAL for IV PUSH) 40 mg BIDAC IVP Last administered on 12/02/18 06:17; Start 11/25/18 at 16:30 Potassium Chloride/Water 100 ml @ 100 mls/hr Q1H IV Last administered on 11/25/18at 16:26; Start 11/25/18 at 13:00; Stop 11/25/18 at 16:59; Status DC Furosemide (Lasix) 20 mg 1X ONCE IVP Last administered on 11/26/18at 00:34; Start 11/26/18 at 01:00; Stop 11/26/18 at 01:01; Status DC Micafungin Sodium 100 mg/Dextrose 100 ml @ 100 mls/hr Q24H IV Last administered on 11/30/18at 09:14; Start 11/26/18 at 09:00; Stop 11/30/18 at 14:12; Status DC Furosemide (Lasix) 40 mg 1X ONCE IVP Last administered on 11/26/18at 10:33; Start 11/26/18 at 09:15; Stop 11/26/18 at 09:16; Status DC Albumin Human 100 ml @ 100 mls/hr 1X ONCE IV Last administered on 11/26/18at 10:34; Start 11/26/18 at 09:15; Stop 11/26/18 at 10:14; Status DC Metoprolol Tartrate (Lopressor Vial) 5 mg PRN Q6HRS PRN IVP HYPERTENSION, SEE COMMENTS; Start 11/26/18 at 12:00; Stop 11/26/18 at 14:22; Status DC Metoprolol Tartrate (Lopressor Vial) 5 mg Q6HRS IVP Last administered on 12/02/18at 06:09; Start 11/26/18 at 16:00 Furosemide (Lasix) 40 mg DAILY IVP Last administered on 12/02/18at 09:08; Start 11/27/18 at 09:00 Ondansetron HCl (Zofran) 4 mg PRN Q6HRS PRN IV NAUSEA/VOMITING; Start 11/29/18 at 07:00; Stop 11/29/18 at 19:00; Status DC Fentanyl Citrate (Fentanyl 2ml Vial) 25 mcg PRN Q5MIN PRN IV MILD PAIN; Start 11/29/18 at 07:00; Stop 11/29/18 at 19:00; Status DC Fentanyl Citrate (Fentanyl 2ml Vial) 50 mcg PRN Q5MIN PRN IV MODERATE TO SEVERE PAIN; Start 11/29/18 at 07:00; Stop 11/29/18 at 19:00; Status DC Morphine Sulfate (Morphine Sulfate) 1 mg PRN Q10MIN PRN IV SEVERE PAIN; Start 11/29/18 at 07:00; Stop 11/29/18 at 19:00; Status DC Ringer's Solution 1,000 ml @ 30 mls/hr Q24H IV ; Start 11/29/18 at 07:00; Stop 11/29/18 at 18:59; Status DC Lidocaine HCl (Xylocaine-Mpf 1% 2ml Vial) 2 ml PRN 1X PRN ID PRIOR TO IV START; Start 11/29/18 at 07:00; Stop 11/29/18 at 19:00; Status DC Hydromorphone HCl (Dilaudid) 0.5 mg PRN Q10MIN PRN IV SEV PAIN, Second choice; Start 11/29/18 at 07:00; Stop 11/29/18 at 19:00; Status DC Prochlorperazine Edisylate (Compazine) 5 mg PACU PRN PRN IV NAUSEA, MRX1; Start 11/29/18 at 07:00; Stop 11/29/18 at 19:00; Status DC Levothyroxine Sodium 50 mcg/ Sodium Chloride 5 ml @ 100 mls/hr Q3DAYS IVP Last administered on 12/01/18at 08:49; Start 12/01/18 at 09:00 Potassium Chloride/Water 100 ml @ 100 mls/hr Q1H IV Last administered on 11/27/18at 16:39; Start 11/27/18 at 12:30; Stop 11/27/18 at 16:29; Status DC Methylprednisolone Sodium Succinate (SOLU-Medrol 125MG VIAL) 80 mg Q8HRS IV Last administered on 12/01/18at 12:35; Start 11/28/18 at 17:00; Stop 12/01/18 at 17:42; Status DC Potassium Chloride/Water 100 ml @ 100 mls/hr Q1H IV Last administered on 11/29/18at 14:30; Start 11/29/18 at 07:00; Stop 11/29/18 at 10:59; Status DC Info (Tpn Per Pharmacy) 1 each PRN DAILY PRN MC SEE COMMENTS Last administered on 12/01/18at 14:37; Start 11/30/18 at 14:45 Sodium Chloride 90 meq/Potassium Chloride 50 meq/ Potassium Phosphate 13.6 mmol/Magnesium Sulfate 10 meq/ Calcium Gluconate 10 meq/ Multivitamins 10 ml/Chromium/ Copper/Manganese/ Seleni/Zn 1 ml/ Total Parenteral Nutrition/Amino Acids/Dextrose/ Fat Emulsion Intravenous 1,512 ml @ 63 mls/hr TPN CONT IV Last administered on 11/30/18at 21:11; Start 11/30/18 at 22:00; Stop 12/01/18 at 21:59; Status DC Potassium Phosphate 15 mmol/ Sodium Chloride 255 ml @ 85 mls/hr 1X ONCE IV Last administered on 12/01/18at 15:09; Start 12/01/18 at 15:00; Stop 12/01/18 at 17:59; Status DC Sodium Chloride 90 meq/Potassium Chloride 70 meq/ Potassium Phosphate 13.6 mmol/Magnesium Sulfate 10 meq/ Calcium Gluconate 10 meq/ Multivitamins 10 ml/Chromium/ Copper/Manganese/ Seleni/Zn 1 ml/ Total Parenteral Nutrition/Amino Acids/Dextrose/ Fat Emulsion Intravenous 1,512 ml @ 63 mls/hr TPN CONT IV Last administered on 12/01/18at 21:40; Start 12/01/18 at 22:00; Stop 12/02/18 at 21:59 Methylprednisolone Sodium Succinate (SOLU-Medrol 40MG VIAL) 80 mg BID IV Last administered on 12/02/18at 09:06; Start 12/01/18 at 21:00; Stop 12/02/18 at 11:09; Status DC Methylprednisolone Sodium Succinate (SOLU-Medrol 40MG VIAL) 40 mg DAILY IV ; Start 12/03/18 at 09:00 Insulin Human Lispro (HumaLOG) 0-12 UNITS QIDACHS SQ ; Start 12/02/18 at 11:30 Active Scripts Active Sertraline Hcl 25 Mg Tablet 50 Mg PO QHS 30 Days Magnesium Chloride 70 Mg Tablet. 64 Mg PO DAILY 30 Days Synthroid (Levothyroxine Sodium) 88 Mcg Tablet 88 Mcg PO DAILY06 30 Days Prednisone 20 Mg Tablet 20 Mg PO DAILY 30 Days Budesonide 0.5 Mg/2 Ml Ampul.neb 0.5 Mg NEB RTBID 30 Days Klor-Con 10 (Potassium Chloride) 10 Meq Tablet.er 1 Tab PO DAILY Lasix (Furosemide) 40 Mg Tablet 1 Tab PO DAILY Aspirin Ec (Aspirin) 81 Mg Tablet. 81 Mg PO DAILYWBKFT 30 Days Duoneb 0.5-3(2.5) Mg/3 Ml (Albuterol/Ipratropium) 3 Ml Ampul.neb 3 Ml NEB RTQID 30 Days Diltiazem 24HR Cd (Diltiazem Hcl) 120 Mg Cap.er.24h 120 Mg PO DAILY 30 Days Reported Hydrocodone-Apap 7.5-325 (Hydrocodone Bit/Acetaminophen) 1 Tab Tablet 1 Tab PO PRN Q6HRS PRN Omeprazole 40 Mg Capsule. 40 Mg PO DAILY Vitals/I & O Vital Sign - Last 24 Hours 12/01/18 12/01/18 12/01/18 12/01/18 12:27 14:35 17:12 17:16 Temp 97.5 97.5 Pulse 70 67 73 Resp 20 4 B/P (MAP) 129/77 127/88 (101) 144/83 Pulse Ox 98 O2 Delivery Nasal Cannula Nasal Cannula O2 Flow Rate 4.0 12/01/18 12/01/18 12/01/18 12/01/18 19:00 19:56 20:00 20:26 Temp 97.9 97.9 Pulse 69 Resp 18 B/P (MAP) 128/77 (94) Pulse Ox 98 98 98 O2 Delivery Nasal Cannula Nasal Cannula Nasal Cannula Nasal Cannula O2 Flow Rate 4.0 4.0 4.0 4.0 12/01/18 12/01/18 12/02/18 12/02/18 20:59 23:00 00:00 03:00 Temp 97.4 97.5 97.4 97.5 Pulse 73 73 72 Resp 18 19 B/P (MAP) 134/76 (95) 134/76 121/73 (89) Pulse Ox 96 98 99 O2 Delivery Nasal Cannula Nasal Cannula Nasal Cannula O2 Flow Rate 4.0 4.0 4.0 12/02/18 12/02/18 12/02/18 12/02/18 06:09 07:05 07:38 09:03 Temp 97.5 97.5 Pulse 72 66 Resp 22 B/P (MAP) 121/73 129/76 (93) Pulse Ox 95 95 95 O2 Delivery Nasal Cannula Nasal Cannula Nasal Cannula O2 Flow Rate 4.0 4.0 4.0 12/02/18 11:05 Temp 97.5 97.5 Pulse 73 Resp 20 B/P (MAP) 143/70 (94) Pulse Ox 93 O2 Delivery Nasal Cannula O2 Flow Rate 4.0 Intake and Output 12/01/18 12/01/18 12/02/18 14:59 22:59 06:59 Intake Total 0 ml 0 ml 0 ml Output Total 900 ml 325 ml Balance -900 ml -325 ml 0 ml Nutrition Consultation Dietary Evaluation: Recommendations by RD: PPN/TPN Comments: continue TPN until diet advancement and tolerated Expected Outcomes/Goals: diet adv/ tolerance Malnutrition Findings: Body Fat Depletion (Non Severe: Mild Depletion Weight Status: Underweight LOURDES POLLOCK MD December 02, 2018 11:26
--- NOTE | 2018-12-02 12:04 | PDOC ---
PULMONARY PROGRESS NOTES Subjective FEELS BETTER IN CHAIR HAD BM Vitals Vital Signs Date Time Temp Pulse Resp B/P (MAP) Pulse Ox O2 Delivery O2 Flow Rate FiO2 12/02/18 11:54 95 Nasal Cannula 4.0 12/02/18 11:05 97.5 73 20 143/70 (94) 97.5 ROS: No Nausea, No Chest Pain, No Increase Cough General: Alert, No acute distress HEENT: Other Lungs: Other (decrease bases) Cardiovascular: S1, S2 Abdomen: Soft, Non-tender, Other Neuro Exam: Alert Extremities: No Edema, Other Labs Laboratory Tests Test 11/30/18 16:55 11/30/18 19:45 11/30/18 21:56 12/01/18 05:00 Glucose (Fingerstick) 162 mg/dL (70-99) 195 mg/dL (70-99) Potassium Level 3.5 mmol/L (3.5-5.1) 3.4 mmol/L (3.5-5.1) Magnesium Level 2.2 mg/dL (1.8-2.4) 2.5 mg/dL (1.8-2.4) Sodium Level 141 mmol/L (136-145) Chloride Level 102 mmol/L (98-107) Carbon Dioxide Level 34 mmol/L (21-32) Anion Gap 5 (6-14) Blood Urea Nitrogen 29 mg/dL (8-26) Creatinine 0.7 mg/dL (0.7-1.3) Estimated GFR (Cockcroft-Gault) 109.6 Glucose Level 304 mg/dL (70-99) Calcium Level 9.3 mg/dL (8.5-10.1) Phosphorus Level 2.2 mg/dL (2.6-4.7) Triglycerides Level 146 mg/dL (0-150) Test 12/01/18 07:19 12/01/18 11:47 12/01/18 17:08 12/01/18 21:25 Glucose (Fingerstick) 324 mg/dL (70-99) 291 mg/dL (70-99) 218 mg/dL (70-99) 156 mg/dL (70-99) Test 12/02/18 04:05 12/02/18 07:15 Sodium Level 144 mmol/L (136-145) Potassium Level 3.7 mmol/L (3.5-5.1) Chloride Level 105 mmol/L (98-107) Carbon Dioxide Level 36 mmol/L (21-32) Anion Gap 3 (6-14) Blood Urea Nitrogen 26 mg/dL (8-26) Creatinine 0.7 mg/dL (0.7-1.3) Estimated GFR (Cockcroft-Gault) 109.6 Glucose Level 341 mg/dL (70-99) Calcium Level 9.3 mg/dL (8.5-10.1) Phosphorus Level 2.3 mg/dL (2.6-4.7) Magnesium Level 2.3 mg/dL (1.8-2.4) Glucose (Fingerstick) 363 mg/dL (70-99) Laboratory Tests Test 12/01/18 17:08 12/01/18 21:25 12/02/18 04:05 12/02/18 07:15 Glucose (Fingerstick) 218 mg/dL (70-99) 156 mg/dL (70-99) 363 mg/dL (70-99) Sodium Level 144 mmol/L (136-145) Potassium Level 3.7 mmol/L (3.5-5.1) Chloride Level 105 mmol/L (98-107) Carbon Dioxide Level 36 mmol/L (21-32) Anion Gap 3 (6-14) Blood Urea Nitrogen 26 mg/dL (8-26) Creatinine 0.7 mg/dL (0.7-1.3) Estimated GFR (Cockcroft-Gault) 109.6 Glucose Level 341 mg/dL (70-99) Calcium Level 9.3 mg/dL (8.5-10.1) Phosphorus Level 2.3 mg/dL (2.6-4.7) Magnesium Level 2.3 mg/dL (1.8-2.4) Medications Active Scripts Medications Dose Route/Sig Max Daily Dose Days Date Category Sertraline Hcl 25 Mg Tablet 50 Mg PO QHS 10/01/18 Rx Magnesium Chloride 70 Mg Tablet.dr 64 Mg PO DAILY 08/30/18 Rx Synthroid (Levothyroxine Sodium) 88 Mcg Tablet 88 Mcg PO DAILY06 08/30/18 Rx Prednisone 20 Mg Tablet 20 Mg PO DAILY 08/30/18 Rx Budesonide 0.5 Mg/2 Ml Ampul.neb 0.5 Mg NEB RTBID 08/30/18 Rx Hydrocodone-Apap 7.5-325 (Hydrocodone Bit/Acetaminophen) 1 Tab Tablet 1 Tab PO PRN Q6HRS PRN 08/26/18 Reported Omeprazole 40 Mg Capsule. 40 Mg PO DAILY 08/26/18 Reported Klor-Con 10 (Potassium Chloride) 10 Meq Tablet.er 1 Tab PO DAILY 07/16/18 Rx Lasix (Furosemide) 40 Mg Tablet 1 Tab PO DAILY 07/16/18 Rx Aspirin Ec (Aspirin) 81 Mg Tablet.dr 81 Mg PO DAILYWBKFT 07/16/18 Rx Duoneb 0.5-3(2.5) Mg/3 Ml (Albuterol/Ipratropium) 3 Ml Ampul.neb 3 Ml NEB RTQID 07/01/18 Rx Diltiazem 24HR Cd (Diltiazem Hcl) 120 Mg Cap.er.24h 120 Mg PO DAILY 07/01/18 Rx Comments BLOOD CULTURE LC Final Final report BLD CULT RESULT 1 Final Comment Streptococcus salivarius group ANTIMICROBIAL SUSCEPTIBILITY Final Comment S = Susceptible; I = Intermediate; R = Resistant P = Positive; N = Negative MICS are expressed in micrograms per mL Antibiotic RSLT#1 RSLT#2 RSLT#3 RSLT#4 Ceftriaxone S<=0.25 Chloramphenicol S =2 Clindamycin S<=0.06 Erythromycin R> 0.5 Penicillin S =0.12 Vancomycin S =0.5 Performed at: - [facility], [place], [place] [id number] [employer]: ANGELES Camargo MD, Phone: [phone] Impression . IMPRESSION: 1. Acute hypoxemic respiratory failure. 2. Abnormal x-ray compatible with bilateral pulmonary infiltrates, suspect combination of pulmonary edema,, and acute lung injury from possible aspiration. ct chest 11/18/18, clear lungs 3. Aspiration pneumonia. 4. Small-bowel obstruction. 5. Dysphagia. 6. Leukocytosis. 7. Bacteremia. 8. Atrial fibrillation. 9. Bwnbt-nw-[id number] heart failure. Plan . BETTER TODAY/ STILL WEAK UP TO CHAIR D/W RN CONTINUE SUPPORT FOLLOW SURGERY INPUT ANTIBX PT DIURESE STERNOIDS START TAPER REPEAT CXR TODAY AR HINES MD December 02, 2018 12:04
--- NOTE | 2018-12-02 12:26 | PDOC ---
Subjective: Subjective: Says he's passing gas but not stool. Objective: Vital Signs: Vital Signs Date Time Temp Pulse Resp B/P (MAP) Pulse Ox O2 Delivery O2 Flow Rate FiO2 12/02/18 11:54 95 Nasal Cannula 4.0 12/02/18 11:05 97.5 73 20 143/70 (94) 97.5 Labs: Laboratory Tests Test 12/01/18 17:08 12/01/18 21:25 12/02/18 04:05 12/02/18 07:15 Glucose (Fingerstick) 218 mg/dL 156 mg/dL 363 mg/dL Sodium Level 144 mmol/L Potassium Level 3.7 mmol/L Chloride Level 105 mmol/L Carbon Dioxide Level 36 mmol/L Anion Gap 3 Blood Urea Nitrogen 26 mg/dL Creatinine 0.7 mg/dL Estimated GFR (Cockcroft-Gault) 109.6 Glucose Level 341 mg/dL Calcium Level 9.3 mg/dL Phosphorus Level 2.3 mg/dL Magnesium Level 2.3 mg/dL Test 12/02/18 11:58 Glucose (Fingerstick) 272 mg/dL PE: GEN: up to chair, has urinal in place, weak HEENT: NGT LUNGS: NC NEURO/PSYCH: A & O 3 A/P: Recurrent SBO, resp failure -- Reports flatus today, also has a stool charted. Continue per surgery. TIO ACEVEDO December 02, 2018 12:26
--- NOTE | 2018-12-02 13:27 | PDOC ---
SURGICAL PROGRESS NOTE Subjective wants NG out small amount of flatus Vital Signs Vital Signs Date Time Temp Pulse Resp B/P (MAP) Pulse Ox O2 Delivery O2 Flow Rate FiO2 12/02/18 11:54 95 Nasal Cannula 4.0 12/02/18 11:05 97.5 73 20 143/70 (94) 97.5 I&O Intake and Output 12/02/18 06:59 Intake Total 0 ml Output Total 1225 ml Balance -1225 ml Intake Oral 0 ml Output Urine Total 1150 ml Gastric Drainage Total 75 ml # Bowel Movements 1 General: Cooperative, No acute distress HEENT: Other (NG in place) Abdomen: Soft Labs Laboratory Tests Test 11/30/18 16:55 11/30/18 19:45 11/30/18 21:56 12/01/18 05:00 Glucose (Fingerstick) 162 mg/dL (70-99) 195 mg/dL (70-99) Potassium Level 3.5 mmol/L (3.5-5.1) 3.4 mmol/L (3.5-5.1) Magnesium Level 2.2 mg/dL (1.8-2.4) 2.5 mg/dL (1.8-2.4) Sodium Level 141 mmol/L (136-145) Chloride Level 102 mmol/L (98-107) Carbon Dioxide Level 34 mmol/L (21-32) Anion Gap 5 (6-14) Blood Urea Nitrogen 29 mg/dL (8-26) Creatinine 0.7 mg/dL (0.7-1.3) Estimated GFR (Cockcroft-Gault) 109.6 Glucose Level 304 mg/dL (70-99) Calcium Level 9.3 mg/dL (8.5-10.1) Phosphorus Level 2.2 mg/dL (2.6-4.7) Triglycerides Level 146 mg/dL (0-150) Test 12/01/18 07:19 12/01/18 11:47 12/01/18 17:08 12/01/18 21:25 Glucose (Fingerstick) 324 mg/dL (70-99) 291 mg/dL (70-99) 218 mg/dL (70-99) 156 mg/dL (70-99) Test 12/02/18 04:05 12/02/18 07:15 12/02/18 11:58 Sodium Level 144 mmol/L (136-145) Potassium Level 3.7 mmol/L (3.5-5.1) Chloride Level 105 mmol/L (98-107) Carbon Dioxide Level 36 mmol/L (21-32) Anion Gap 3 (6-14) Blood Urea Nitrogen 26 mg/dL (8-26) Creatinine 0.7 mg/dL (0.7-1.3) Estimated GFR (Cockcroft-Gault) 109.6 Glucose Level 341 mg/dL (70-99) Calcium Level 9.3 mg/dL (8.5-10.1) Phosphorus Level 2.3 mg/dL (2.6-4.7) Magnesium Level 2.3 mg/dL (1.8-2.4) Glucose (Fingerstick) 363 mg/dL (70-99) 272 mg/dL (70-99) Laboratory Tests Test 12/01/18 17:08 12/01/18 21:25 12/02/18 04:05 12/02/18 07:15 Glucose (Fingerstick) 218 mg/dL (70-99) 156 mg/dL (70-99) 363 mg/dL (70-99) Sodium Level 144 mmol/L (136-145) Potassium Level 3.7 mmol/L (3.5-5.1) Chloride Level 105 mmol/L (98-107) Carbon Dioxide Level 36 mmol/L (21-32) Anion Gap 3 (6-14) Blood Urea Nitrogen 26 mg/dL (8-26) Creatinine 0.7 mg/dL (0.7-1.3) Estimated GFR (Cockcroft-Gault) 109.6 Glucose Level 341 mg/dL (70-99) Calcium Level 9.3 mg/dL (8.5-10.1) Phosphorus Level 2.3 mg/dL (2.6-4.7) Magnesium Level 2.3 mg/dL (1.8-2.4) Test 12/02/18 11:58 Glucose (Fingerstick) 272 mg/dL (70-99) Problem List Problems Medical Problems: (1) Pneumonia Status: Acute Assessment/Plan has been intermittently clamping ng will try to leave NG clamped for next 24 hrs REMBERTO WINSTON APRN December 02, 2018 13:27
--- NOTE | 2018-12-02 13:33 | NUR ---
SW following for discharge planning. Pt is from [facility] and can return when stable for transfer. SW will continue to follow.
[2018-12-02] MEDS: TPN PER PHARMACY MC PRN (14:09)
--- NOTE | 2018-12-02 14:10 | NUR ---
Pharmacy TPN Dosing Note S: JOHN ROBBINS is a 78 year old M Currently receiving Central Continuous TPN started 11/30/18 B:Pertinent PMH: SBO, NPO Height: 5 feet, 10 inches Weight: 55.333901 kg Current diet: NPO LABS: Sodium: 144 Potassium: 3.7 Chloride: 105 Calcium: 9.3 Corrected Calcium: 10.02 Magnesium: 2.5 CO2: 36 SCr: 0.7 Glucose: 341 Albumin: 3.1 AST: 14 ALT: 17 TPN FORMULA: TPN TYPE: Central Continuous AMINO ACIDS: 60 gm DEXTROSE: 195 gm LIPIDS: ML gm SODIUM CHLORIDE: 90 mEq SODIUM ACETATE: mEq SODIUM PHOSPHATE: mmol POTASSIUM CHLORIDE: 70 mEq POTASSIUM ACETATE: mEq POTASSIUM PHOSPHATE: 13.6 mmol MAGNESIUM: 6 mEq CALCIUM: 10 mEq INSULIN: units MULTIPLE VITAMIN: 10 ml TRACE ELEMENTS: 1 ml(s) TPN PLAN: Give 15mMol potassium phosphate as phosphate levels are slightly low. Continue same R: Continue TPN as ordered Will monitor electrolytes, glucose, and tolerance to TPN. [facility], 12/02/18 [id number]
--- NOTE | 2018-12-02 14:17 | RAD ---
Portable chest, 12/02/2018: HISTORY: Pneumonia Comparison is made to a study from 11/30/2018. The tip of the NG tube now lies near the level the GE junction. A right PICC extends to the level the atrial caval junction. The heart size is unchanged. There are moderate ongoing bilateral pulmonary infiltrates which are predominantly interstitial in nature. There is dominant involvement of the lung bases. Previous CT imaging demonstrated bibasilar honeycombing and bronchiectasis. The right basilar infiltrate has worsened slightly with increasing loss of definition of the right hemidiaphragm. No significant pleural fluid is seen. IMPRESSION: 1. The NG tube has been pulled back with its tip now lying at the level the GE junction. 2. Slight interval worsening of the moderate bilateral pulmonary infiltrates suggesting pneumonia superimposed upon chronic interstitial lung disease. Electronically signed by: Paulo Sanchez MD (12/02/2018 2:14 PM) [facility]
[2018-12-02] MEDS ORDERED: POTASSIUM PHOSPHATE DIBASIC 15 MMOL in IV NORMAL SALINE 250ML 250 ML IV ONE (15:00)
[2018-12-02 15:35] VITALS: BP 131/83
[2018-12-02 19:00] VITALS: BP 117/79
[2018-12-02] MEDS: FAMOTIDINE 20 MG/2 ML VIAL IVP SCH (20:53)
[2018-12-02] MEDS ORDERED: AMINO ACID IV SCH ×10 (22:00)
[2018-12-02] MEDS ORDERED: DEXTROSE 70% IV SCH ×10 (22:00)
[2018-12-02] MEDS ORDERED: TOTAL PARENTERAL NUTRITION IV SCH ×10 (22:00)
[2018-12-02] MEDS ORDERED: [UNRECOGNIZED DRUG - OTHER] IV SCH ×10 (22:00)
[2018-12-02 23:00] VITALS: BP 117/72
[2018-12-03] VITALS (7 sets, daily range): BP systolic 107–146; BP diastolic 64–88
[2018-12-03 04:43] LABS: HEMATOCRIT 27.1 % (39.0-53.0); HEMOGLOBIN 8.9 g/dL (13.0-17.5); RED BLOOD COUNT 2.83 x10^6/uL (4.30-5.70); RED CELL DISTRIBUTION WIDTH 15.2 % (11.5-14.5); WHITE BLOOD COUNT 6.6 x10^3/uL (4.0-11.0)
[2018-12-03 05:12] LABS: CALCIUM 9.2 mg/dL (8.5-10.1); CREATININE 0.7 mg/dL (0.7-1.3); GFR 109.6; MAGNESIUM 2.3 mg/dL (1.8-2.4); POTASSIUM 3.9 mmol/L (3.5-5.1)
[2018-12-03 05:46] LABS: PHOSPHORUS 2.1 mg/dL (2.6-4.7)
[2018-12-03] MEDS: PIPERACILLIN/TAZOBACTAM 3.375 GM in IV NORMAL SALINE 50ML 50 ML IV SCH ×3 (05:50→18:09)
[2018-12-03] MEDS: METOPROLOL TARTRATE 5 MG/5 ML VIAL. IVP SCH ×3 (05:51→18:10)
--- NOTE | 2018-12-03 06:04 | NUR ---
NG tube remained clamped all night. Denies N/V. Abd remained soft.
[2018-12-03] MEDS: IPRATRPIUM/ALBUTEROL 0.5/2.5MG 3 ML NEBU. NEB SCH ×4 (07:45→19:54)
[2018-12-03] MEDS: BUDESONIDE 0.5 MG/2 ML NEBU. NEB SCH ×2 (07:45→19:55)
[2018-12-03] MEDS: FUROSEMIDE 40 MG/4 ML VIAL. IVP SCH (08:47)
[2018-12-03] MEDS: FAMOTIDINE 20 MG/2 ML VIAL IVP SCH ×2 (08:47→21:01)
[2018-12-03] MEDS: MORPHINE SULFATE 4 MG/ML VIAL. IV PRN ×3 (08:48→20:37)
--- NOTE | 2018-12-03 08:58 | PDOC ---
REMBERTO WINSTON [employer]AB[employer] 12/03/18 0858: SURGICAL PROGRESS NOTE Subjective no nausea or emesis no distention some flatus pain, however denies abdominal pain Vital Signs Vital Signs Date Time Temp Pulse Resp B/P (MAP) Pulse Ox O2 Delivery O2 Flow Rate FiO2 12/03/18 08:10 Nasal Cannula 4.0 12/03/18 05:51 89 142/82 12/03/18 03:00 97.4 18 97 97.4 I&O Intake and Output 12/03/18 06:59 Intake Total 0 ml Output Total 1450 ml Balance -1450 ml Intake Oral 0 ml Output Urine Total 1450 ml General: Alert, Oriented X3, Cooperative, No acute distress HEENT: Other (NG in place) Abdomen: Soft, No tenderness Labs Laboratory Tests Test 12/01/18 11:47 12/01/18 17:08 12/01/18 21:25 12/02/18 04:05 Glucose (Fingerstick) 291 mg/dL (70-99) 218 mg/dL (70-99) 156 mg/dL (70-99) Sodium Level 144 mmol/L (136-145) Potassium Level 3.7 mmol/L (3.5-5.1) Chloride Level 105 mmol/L (98-107) Carbon Dioxide Level 36 mmol/L (21-32) Anion Gap 3 (6-14) Blood Urea Nitrogen 26 mg/dL (8-26) Creatinine 0.7 mg/dL (0.7-1.3) Estimated GFR (Cockcroft-Gault) 109.6 Glucose Level 341 mg/dL (70-99) Calcium Level 9.3 mg/dL (8.5-10.1) Phosphorus Level 2.3 mg/dL (2.6-4.7) Magnesium Level 2.3 mg/dL (1.8-2.4) Test 12/02/18 07:15 12/02/18 11:58 12/02/18 16:45 12/02/18 21:06 Glucose (Fingerstick) 363 mg/dL (70-99) 272 mg/dL (70-99) 206 mg/dL (70-99) 207 mg/dL (70-99) Test 12/03/18 04:10 12/03/18 08:43 White Blood Count 6.6 x10^3/uL (4.0-11.0) Red Blood Count 2.83 x10^6/uL (4.30-5.70) Hemoglobin 8.9 g/dL (13.0-17.5) Hematocrit 27.1 % (39.0-53.0) Mean Corpuscular Volume 96 fL (79-100) Mean Corpuscular Hemoglobin 32 pg (25-35) Mean Corpuscular Hemoglobin Concent 33 g/dL (31-37) Red Cell Distribution Width 15.2 % (11.5-14.5) Platelet Count 278 x10^3/uL (140-400) Sodium Level 143 mmol/L (136-145) Potassium Level 3.9 mmol/L (3.5-5.1) Chloride Level 105 mmol/L (98-107) Carbon Dioxide Level 35 mmol/L (21-32) Anion Gap 3 (6-14) Blood Urea Nitrogen 23 mg/dL (8-26) Creatinine 0.7 mg/dL (0.7-1.3) Estimated GFR (Cockcroft-Gault) 109.6 Glucose Level 294 mg/dL (70-99) Calcium Level 9.2 mg/dL (8.5-10.1) Phosphorus Level 2.1 mg/dL (2.6-4.7) Magnesium Level 2.3 mg/dL (1.8-2.4) Glucose (Fingerstick) 253 mg/dL (70-99) Laboratory Tests Test 12/02/18 11:58 12/02/18 16:45 12/02/18 21:06 12/03/18 04:10 Glucose (Fingerstick) 272 mg/dL (70-99) 206 mg/dL (70-99) 207 mg/dL (70-99) White Blood Count 6.6 x10^3/uL (4.0-11.0) Red Blood Count 2.83 x10^6/uL (4.30-5.70) Hemoglobin 8.9 g/dL (13.0-17.5) Hematocrit 27.1 % (39.0-53.0) Mean Corpuscular Volume 96 fL (79-100) Mean Corpuscular Hemoglobin 32 pg (25-35) Mean Corpuscular Hemoglobin Concent 33 g/dL (31-37) Red Cell Distribution Width 15.2 % (11.5-14.5) Platelet Count 278 x10^3/uL (140-400) Sodium Level 143 mmol/L (136-145) Potassium Level 3.9 mmol/L (3.5-5.1) Chloride Level 105 mmol/L (98-107) Carbon Dioxide Level 35 mmol/L (21-32) Anion Gap 3 (6-14) Blood Urea Nitrogen 23 mg/dL (8-26) Creatinine 0.7 mg/dL (0.7-1.3) Estimated GFR (Cockcroft-Gault) 109.6 Glucose Level 294 mg/dL (70-99) Calcium Level 9.2 mg/dL (8.5-10.1) Phosphorus Level 2.1 mg/dL (2.6-4.7) Magnesium Level 2.3 mg/dL (1.8-2.4) Test 12/03/18 08:43 Glucose (Fingerstick) 253 mg/dL (70-99) Problem List Problems Medical Problems: (1) Pneumonia Status: Acute Assessment/Plan NG clamped since yesterday will check residual --if low dc NG today MIKAELA TABARES MD 12/03/18 1230: SURGICAL PROGRESS NOTE Assessment/Plan Pt seen and examined. Agree with Ms. Winston's note Pt without new c/o, NGT out abd soft, ND, NTTP if does well will ADAT in AM REMBERTO WINSTON [employer]AB[employer] December 03, 2018 08:58 MIKAELA TABARES MD December 03, 2018 12:30
[2018-12-03] MEDS ORDERED: methylPREDNISolone SOD SUCC PF 40 MG/ML VIAL. IV SCH (09:00)
[2018-12-03] MEDS: INSULIN LISPRO 300 UNITS/3 ML INSULN.PEN. SQ SCH ×4 (09:02→21:17)
[2018-12-03] MEDS: ASPIRIN RECTAL 300 MG SUPP. PR SCH (10:11)
--- NOTE | 2018-12-03 10:37 | PDOC ---
CARDIO Progress Notes Date and Time Date of Service 12/03/2018 Time of Evaluation 0910 Subjective Subjective: No Chest Pain, No shortness of breath, No Palpitations, Other (feels tired, no pain) Vitals Vitals Vital Signs Date Time Temp Pulse Resp B/P (MAP) Pulse Ox O2 Delivery O2 Flow Rate FiO2 12/03/18 09:18 20 4 Nasal Cannula 12/03/18 08:10 4.0 12/03/18 07:00 97.6 85 135/86 (102) 97.6 Weight Weight [ ] Input and Output Intake and Output Intake and Output 12/03/18 06:59 Intake Total 0 ml Output Total 1450 ml Balance -1450 ml Intake Oral 0 ml Output Urine Total 1450 ml Laboratory Labs Laboratory Tests Test 12/02/18 11:58 12/02/18 16:45 12/02/18 21:06 12/03/18 04:10 Glucose (Fingerstick) 272 mg/dL (70-99) 206 mg/dL (70-99) 207 mg/dL (70-99) White Blood Count 6.6 x10^3/uL (4.0-11.0) Red Blood Count 2.83 x10^6/uL (4.30-5.70) Hemoglobin 8.9 g/dL (13.0-17.5) Hematocrit 27.1 % (39.0-53.0) Mean Corpuscular Volume 96 fL (79-100) Mean Corpuscular Hemoglobin 32 pg (25-35) Mean Corpuscular Hemoglobin Concent 33 g/dL (31-37) Red Cell Distribution Width 15.2 % (11.5-14.5) Platelet Count 278 x10^3/uL (140-400) Sodium Level 143 mmol/L (136-145) Potassium Level 3.9 mmol/L (3.5-5.1) Chloride Level 105 mmol/L (98-107) Carbon Dioxide Level 35 mmol/L (21-32) Anion Gap 3 (6-14) Blood Urea Nitrogen 23 mg/dL (8-26) Creatinine 0.7 mg/dL (0.7-1.3) Estimated GFR (Cockcroft-Gault) 109.6 Glucose Level 294 mg/dL (70-99) Calcium Level 9.2 mg/dL (8.5-10.1) Phosphorus Level 2.1 mg/dL (2.6-4.7) Magnesium Level 2.3 mg/dL (1.8-2.4) Test 12/03/18 08:43 Glucose (Fingerstick) 253 mg/dL (70-99) Microbiology Micro Microbiology 11/24/18 Blood Culture - Final, Complete 11/24/18 Blood Culture Result 1 (ATA) - Final, Complete 11/24/18 Antimicrobic Susceptibility - Final, Complete Physical Exam HEENT: Neck Supple W Full Motion Chest: Symmetric LUNGS: Other (diminished bases) Heart: S1S2, RRR (Sr with PACs) Abdomen: Soft N/T, Other (NGT clamped) Extremities: Other (trace to 1+ LE edema ) Neurology: alert, oriented, follow commands Assessment Assessment 1. SBO, recurrent. remains with NGT but clamped no further nausea overnight 2. Acute respiratory failure; multifactorial in setting of a/c HF, IDL, and PNA. SOA better. Pulmonary following 2. Acute on chronic diastolic CHF: compensated 3. PAFIB; maintaining SR with occasional PACs and burst of AFIB 4. Bacteremia; antibiotic therapy as per ID 5. Hypertension: controlled 6. Hyperlipidemia 7. COPD/ILD 8. Hypothyroidism Recommendations 1. Lasix therapy continue IV lopressor. will change to PO once PO allowed 2. Rectal ASA for stroke prevention if OK with GI 3. Supportive care JACQUE ODEN APRN December 03, 2018 10:37
--- NOTE | 2018-12-03 10:50 | PDOC ---
PULMONARY PROGRESS NOTES Subjective STILL VERY WEAK Vitals Vital Signs Date Time Temp Pulse Resp B/P (MAP) Pulse Ox O2 Delivery O2 Flow Rate FiO2 12/03/18 09:18 20 4 Nasal Cannula 12/03/18 08:10 4.0 12/03/18 07:00 97.6 85 135/86 (102) 97.6 ROS: No Nausea, No Chest Pain, No Increase Cough General: Alert, No acute distress HEENT: Other Lungs: Other (decrease bases) Cardiovascular: S1, S2 Abdomen: Soft, Non-tender, Other Neuro Exam: Alert Extremities: No Edema, Other Labs Laboratory Tests Test 12/01/18 11:47 12/01/18 17:08 12/01/18 21:25 12/02/18 04:05 Glucose (Fingerstick) 291 mg/dL (70-99) 218 mg/dL (70-99) 156 mg/dL (70-99) Sodium Level 144 mmol/L (136-145) Potassium Level 3.7 mmol/L (3.5-5.1) Chloride Level 105 mmol/L (98-107) Carbon Dioxide Level 36 mmol/L (21-32) Anion Gap 3 (6-14) Blood Urea Nitrogen 26 mg/dL (8-26) Creatinine 0.7 mg/dL (0.7-1.3) Estimated GFR (Cockcroft-Gault) 109.6 Glucose Level 341 mg/dL (70-99) Calcium Level 9.3 mg/dL (8.5-10.1) Phosphorus Level 2.3 mg/dL (2.6-4.7) Magnesium Level 2.3 mg/dL (1.8-2.4) Test 12/02/18 07:15 12/02/18 11:58 12/02/18 16:45 12/02/18 21:06 Glucose (Fingerstick) 363 mg/dL (70-99) 272 mg/dL (70-99) 206 mg/dL (70-99) 207 mg/dL (70-99) Test 12/03/18 04:10 12/03/18 08:43 White Blood Count 6.6 x10^3/uL (4.0-11.0) Red Blood Count 2.83 x10^6/uL (4.30-5.70) Hemoglobin 8.9 g/dL (13.0-17.5) Hematocrit 27.1 % (39.0-53.0) Mean Corpuscular Volume 96 fL (79-100) Mean Corpuscular Hemoglobin 32 pg (25-35) Mean Corpuscular Hemoglobin Concent 33 g/dL (31-37) Red Cell Distribution Width 15.2 % (11.5-14.5) Platelet Count 278 x10^3/uL (140-400) Sodium Level 143 mmol/L (136-145) Potassium Level 3.9 mmol/L (3.5-5.1) Chloride Level 105 mmol/L (98-107) Carbon Dioxide Level 35 mmol/L (21-32) Anion Gap 3 (6-14) Blood Urea Nitrogen 23 mg/dL (8-26) Creatinine 0.7 mg/dL (0.7-1.3) Estimated GFR (Cockcroft-Gault) 109.6 Glucose Level 294 mg/dL (70-99) Calcium Level 9.2 mg/dL (8.5-10.1) Phosphorus Level 2.1 mg/dL (2.6-4.7) Magnesium Level 2.3 mg/dL (1.8-2.4) Glucose (Fingerstick) 253 mg/dL (70-99) Laboratory Tests Test 12/02/18 11:58 12/02/18 16:45 12/02/18 21:06 12/03/18 04:10 Glucose (Fingerstick) 272 mg/dL (70-99) 206 mg/dL (70-99) 207 mg/dL (70-99) White Blood Count 6.6 x10^3/uL (4.0-11.0) Red Blood Count 2.83 x10^6/uL (4.30-5.70) Hemoglobin 8.9 g/dL (13.0-17.5) Hematocrit 27.1 % (39.0-53.0) Mean Corpuscular Volume 96 fL (79-100) Mean Corpuscular Hemoglobin 32 pg (25-35) Mean Corpuscular Hemoglobin Concent 33 g/dL (31-37) Red Cell Distribution Width 15.2 % (11.5-14.5) Platelet Count 278 x10^3/uL (140-400) Sodium Level 143 mmol/L (136-145) Potassium Level 3.9 mmol/L (3.5-5.1) Chloride Level 105 mmol/L (98-107) Carbon Dioxide Level 35 mmol/L (21-32) Anion Gap 3 (6-14) Blood Urea Nitrogen 23 mg/dL (8-26) Creatinine 0.7 mg/dL (0.7-1.3) Estimated GFR (Cockcroft-Gault) 109.6 Glucose Level 294 mg/dL (70-99) Calcium Level 9.2 mg/dL (8.5-10.1) Phosphorus Level 2.1 mg/dL (2.6-4.7) Magnesium Level 2.3 mg/dL (1.8-2.4) Test 12/03/18 08:43 Glucose (Fingerstick) 253 mg/dL (70-99) Medications Active Scripts Medications Dose Route/Sig Max Daily Dose Days Date Category Sertraline Hcl 25 Mg Tablet 50 Mg PO QHS 30 10/01/18 Rx Magnesium Chloride 70 Mg Tablet.dr 64 Mg PO DAILY 08/30/18 Rx Synthroid (Levothyroxine Sodium) 88 Mcg Tablet 88 Mcg PO DAILY06 08/30/18 Rx Prednisone 20 Mg Tablet 20 Mg PO DAILY 08/30/18 Rx Budesonide 0.5 Mg/2 Ml Ampul.neb 0.5 Mg NEB RTBID 08/30/18 Rx Hydrocodone-Apap 7.5-325 (Hydrocodone Bit/Acetaminophen) 1 Tab Tablet 1 Tab PO PRN Q6HRS PRN 08/26/18 Reported Omeprazole 40 Mg Capsule. 40 Mg PO DAILY 08/26/18 Reported Klor-Con 10 (Potassium Chloride) 10 Meq Tablet.er 1 Tab PO DAILY 07/16/18 Rx Lasix (Furosemide) 40 Mg Tablet 1 Tab PO DAILY 07/16/18 Rx Aspirin Ec (Aspirin) 81 Mg Tablet.dr 81 Mg PO DAILYWBKFT 07/16/18 Rx Duoneb 0.5-3(2.5) Mg/3 Ml (Albuterol/Ipratropium) 3 Ml Ampul.neb 3 Ml NEB RTQID 07/01/18 Rx Diltiazem 24HR Cd (Diltiazem Hcl) 120 Mg Cap.er.24h 120 Mg PO DAILY 07/01/18 Rx Comments BLOOD CULTURE LC Final Final report BLD CULT RESULT 1 Final Comment Streptococcus salivarius group ANTIMICROBIAL SUSCEPTIBILITY Final Comment S = Susceptible; I = Intermediate; R = Resistant P = Positive; N = Negative MICS are expressed in micrograms per mL Antibiotic RSLT#1 RSLT#2 RSLT#3 RSLT#4 Ceftriaxone S<=0.25 Chloramphenicol S =2 Clindamycin S<=0.06 Erythromycin R> 0.5 Penicillin S =0.12 Vancomycin S =0.5 Performed at: - [facility] [address], [place], [place] [id number] Apparatus Repair Mechanic: ANGELES Camargo MD, Phone: [phone] Impression . IMPRESSION: 1. Acute hypoxemic respiratory failure. multi-factorial 2. Abnormal x-ray compatible with bilateral pulmonary infiltrates, suspect combination of pulmonary edema,, and acute lung injury from possible aspiration./ underlying severe honeycombing/ fibrosis ct chest 09/21, extensive basal fibrosis 3. Aspiration pneumonia. 4. Small-bowel obstruction. 5. Dysphagia. 6. Leukocytosis. 7. Bacteremia. 8. Atrial fibrillation. 9. Roxnr-bo-lijvedp heart failure. Plan . STILL WEAK UP TO CHAIR CONTINUE SUPPORT FOLLOW SURGERY INPUT ANTIBX PT DIURESE STERNOIDS TAPER REPEAT CXR 12/02 no change/ WILL DO CT CHEST TODAY AR HINES MD December 03, 2018 10:50
--- NOTE | 2018-12-03 12:18 | PDOC ---
Infectious Disease Note Subjective Subjective feeling better ROS ROS NG is out Vital Sign Vital Signs Vital Signs Date Time Temp Pulse Resp B/P (MAP) Pulse Ox O2 Delivery O2 Flow Rate FiO2 12/03/18 11:00 97.6 92 18 107/72 (84) 95 Nasal Cannula 4.0 97.6 Physical Exam PHYSICAL EXAM GENERAL: Propped up in bed, weak appearing, HEENT: Ecchymosis about his left eye. Oral cavity and pharynx w/ dried secretions, NGT to LIWS NECK: Supple, no JVD. LUNGS: + rhonchi. Nonlabored HEART: S1, S2. ABDOMEN: Mildly distended, soft, NT, decreased bowel sounds. EXTREMITIES: Without clubbing or cyanosis. 2+ edema lower extremities, bilaterally NEUROLOGIC: Sleepy, answering questions appropriately SKIN: Without generalized signs of rash. PIV ok Labs Lab Laboratory Tests Test 12/02/18 16:45 12/02/18 21:06 12/03/18 04:10 12/03/18 08:43 Glucose (Fingerstick) 206 mg/dL (70-99) 207 mg/dL (70-99) 253 mg/dL (70-99) White Blood Count 6.6 x10^3/uL (4.0-11.0) Red Blood Count 2.83 x10^6/uL (4.30-5.70) Hemoglobin 8.9 g/dL (13.0-17.5) Hematocrit 27.1 % (39.0-53.0) Mean Corpuscular Volume 96 fL (79-100) Mean Corpuscular Hemoglobin 32 pg (25-35) Mean Corpuscular Hemoglobin Concent 33 g/dL (31-37) Red Cell Distribution Width 15.2 % (11.5-14.5) Platelet Count 278 x10^3/uL (140-400) Sodium Level 143 mmol/L (136-145) Potassium Level 3.9 mmol/L (3.5-5.1) Chloride Level 105 mmol/L (98-107) Carbon Dioxide Level 35 mmol/L (21-32) Anion Gap 3 (6-14) Blood Urea Nitrogen 23 mg/dL (8-26) Creatinine 0.7 mg/dL (0.7-1.3) Estimated GFR (Cockcroft-Gault) 109.6 Glucose Level 294 mg/dL (70-99) Calcium Level 9.2 mg/dL (8.5-10.1) Phosphorus Level 2.1 mg/dL (2.6-4.7) Magnesium Level 2.3 mg/dL (1.8-2.4) Test 12/03/18 11:36 Glucose (Fingerstick) 171 mg/dL (70-99) Micro BLOOD CULTURE LC Preliminary Preliminary report BLD CULT RESULT 1 Preliminary Comment Streptococcus salivarius group Performed at: DA - [facility] [address], [place], [place] [id number] It Security Engineer: ANGELES Camargo MD, Phone: [phone] Objective Assessment Bacteremia from 11/24 - (gram neg coccobacilli in 1/4 bottles) Strep salivarius SBO Leukocytosis - better ? thrush AFib CHF Plan Plan of Care Cont Zosyn soon change to po f/u cultures Monitor labs Oral care Maintain aspiration precautions Surgery possibly on 11/29 Supportive care HOLLY MCKEON MD December 03, 2018 12:18
--- NOTE | 2018-12-03 12:56 | RAD ---
Examination: CT chest without contrast HISTORY: History of infiltrates COMPARISON: 07/11/2018 TECHNIQUE: Axial CT images of chest were performed without contrast. Coronal and sagittal reformats are performed TECHNIQUE: Axial CT images of the chest were performed without contrast. Coronal and sagittal reformats are performed. Exposure: One or more of the following individualized dose reduction techniques were utilized for this examination: 1. Automated exposure control 2. Adjustment of the mA and/or kV according to patient size 3. Use of iterative reconstruction technique FINDINGS: The central airways are patent. Moderate cardiomegaly. Diffuse coronary artery calcifications. No radiologically significant mediastinal lymphadenopathy. Consolidation changes identified in the bibasilar lungs with air bronchograms. Reticular interstitial lung markings identified in the bibasilar lungs and in the left lingular region likely changes of idiopathic pulmonary fibrosis. Examination limited lack of IV contrast The visualized noncontrasted liver demonstrates a 9 mm hypodensity in the right lobe of the liver similar to prior exam, difficult to characterize. The visualized spleen, adrenals grossly appears unremarkable. Moderate degenerative changes thoracic spine. There is mild compression changes of the T9, T10, T12 vertebral bodies. IMPRESSION: 1. Bibasilar lung consolidation changes likely pneumonia or infiltrates with underlying diffuse bibasilar reticular interstitial lung markings likely idiopathic pulmonary fibrosis. 2. Coronary artery calcifications. 3. Mild compression changes of T9, T10, T12 vertebral bodies. 4. Subcentimeter hypodensity identified in the right lobe of the liver, difficult to characterize similar to prior exam. Electronically signed by: Joo Navarro MD (12/03/2018 12:53 PM) [id number]
[2018-12-03] MEDS ORDERED: POTASSIUM PHOSPHATE DIBASIC 15 MMOL in IV NORMAL SALINE 250ML 250 ML IV ONE (13:00)
[2018-12-03] MEDS: TPN PER PHARMACY MC PRN (13:01)
--- NOTE | 2018-12-03 13:04 | NUR ---
Pharmacy TPN Dosing Note S: JOHN ROBBINS is a 78 year old M Currently receiving Central Continuous TPN started 11/30/18 B:Pertinent PMH: SBO, NPO Height: 5 feet, 10 inches Weight: 54.0 kg Current diet: NPO LABS: Sodium: 143 Potassium: 3.9 Chloride: 105 Calcium: 9.2 Corrected Calcium: 9.92 Magnesium: 2.3 CO2: 35 SCr: 0.7 Glucose: 171 Albumin: 3.1 AST: 14 ALT: 17 TPN FORMULA: TPN TYPE: Central Continuous AMINO ACIDS: 60 gm DEXTROSE: 195 gm SODIUM CHLORIDE: 90 mEq POTASSIUM CHLORIDE: 70 mEq POTASSIUM PHOSPHATE: 18 mmol MAGNESIUM: 6 mEq CALCIUM: 10 mEq MULTIPLE VITAMIN: 10 ml TRACE ELEMENTS: 1 ml TPN PLAN: Give 15mmol potassium phosphate IVPB. Increase Kphos in TPN to 18 mmol. R: Change TPN per plan and ordered formula. Will monitor electrolytes, glucose, and tolerance to TPN. Yuki Wilhelm RPH, 12/03/18 1252
--- NOTE | 2018-12-03 14:46 | PDOC ---
G I PROGRESS NOTE Reason for Follow-up SBO Subjective NG out/ambulating with assistance Physical Exam Lungs decreased BS CV S1 S2 ABD distended, +BS Review of Relevant I have reviewed the following items sherine (where applicable) has been applied. Labs Laboratory Tests Test 12/01/18 17:08 12/01/18 21:25 12/02/18 04:05 12/02/18 07:15 Glucose (Fingerstick) 218 mg/dL (70-99) 156 mg/dL (70-99) 363 mg/dL (70-99) Sodium Level 144 mmol/L (136-145) Potassium Level 3.7 mmol/L (3.5-5.1) Chloride Level 105 mmol/L (98-107) Carbon Dioxide Level 36 mmol/L (21-32) Anion Gap 3 (6-14) Blood Urea Nitrogen 26 mg/dL (8-26) Creatinine 0.7 mg/dL (0.7-1.3) Estimated GFR (Cockcroft-Gault) 109.6 Glucose Level 341 mg/dL (70-99) Calcium Level 9.3 mg/dL (8.5-10.1) Phosphorus Level 2.3 mg/dL (2.6-4.7) Magnesium Level 2.3 mg/dL (1.8-2.4) Test 12/02/18 11:58 12/02/18 16:45 12/02/18 21:06 12/03/18 04:10 Glucose (Fingerstick) 272 mg/dL (70-99) 206 mg/dL (70-99) 207 mg/dL (70-99) White Blood Count 6.6 x10^3/uL (4.0-11.0) Red Blood Count 2.83 x10^6/uL (4.30-5.70) Hemoglobin 8.9 g/dL (13.0-17.5) Hematocrit 27.1 % (39.0-53.0) Mean Corpuscular Volume 96 fL (79-100) Mean Corpuscular Hemoglobin 32 pg (25-35) Mean Corpuscular Hemoglobin Concent 33 g/dL (31-37) Red Cell Distribution Width 15.2 % (11.5-14.5) Platelet Count 278 x10^3/uL (140-400) Sodium Level 143 mmol/L (136-145) Potassium Level 3.9 mmol/L (3.5-5.1) Chloride Level 105 mmol/L (98-107) Carbon Dioxide Level 35 mmol/L (21-32) Anion Gap 3 (6-14) Blood Urea Nitrogen 23 mg/dL (8-26) Creatinine 0.7 mg/dL (0.7-1.3) Estimated GFR (Cockcroft-Gault) 109.6 Glucose Level 294 mg/dL (70-99) Calcium Level 9.2 mg/dL (8.5-10.1) Phosphorus Level 2.1 mg/dL (2.6-4.7) Magnesium Level 2.3 mg/dL (1.8-2.4) Test 12/03/18 08:43 12/03/18 11:36 Glucose (Fingerstick) 253 mg/dL (70-99) 171 mg/dL (70-99) Laboratory Tests Test 12/02/18 16:45 12/02/18 21:06 12/03/18 04:10 12/03/18 08:43 Glucose (Fingerstick) 206 mg/dL (70-99) 207 mg/dL (70-99) 253 mg/dL (70-99) White Blood Count 6.6 x10^3/uL (4.0-11.0) Red Blood Count 2.83 x10^6/uL (4.30-5.70) Hemoglobin 8.9 g/dL (13.0-17.5) Hematocrit 27.1 % (39.0-53.0) Mean Corpuscular Volume 96 fL (79-100) Mean Corpuscular Hemoglobin 32 pg (25-35) Mean Corpuscular Hemoglobin Concent 33 g/dL (31-37) Red Cell Distribution Width 15.2 % (11.5-14.5) Platelet Count 278 x10^3/uL (140-400) Sodium Level 143 mmol/L (136-145) Potassium Level 3.9 mmol/L (3.5-5.1) Chloride Level 105 mmol/L (98-107) Carbon Dioxide Level 35 mmol/L (21-32) Anion Gap 3 (6-14) Blood Urea Nitrogen 23 mg/dL (8-26) Creatinine 0.7 mg/dL (0.7-1.3) Estimated GFR (Cockcroft-Gault) 109.6 Glucose Level 294 mg/dL (70-99) Calcium Level 9.2 mg/dL (8.5-10.1) Phosphorus Level 2.1 mg/dL (2.6-4.7) Magnesium Level 2.3 mg/dL (1.8-2.4) Test 12/03/18 11:36 Glucose (Fingerstick) 171 mg/dL (70-99) Microbiology 11/24/18 Blood Culture - Final, Complete 11/24/18 Blood Culture Result 1 (ATA) - Final, Complete 11/24/18 Antimicrobic Susceptibility - Final, Complete Medications Current Medications Fentanyl Citrate (Fentanyl 2ml Vial) 50 mcg 1X ONCE IV Last administered on 11/24/18at 03:45; Start 11/24/18 at 03:15; Stop 11/24/18 at 03:18; Status DC Sodium Chloride 1,000 ml @ 1,000 mls/hr 1X ONCE IV Last administered on 11/24/18at 03:45; Start 11/24/18 at 03:15; Stop 11/24/18 at 04:14; Status DC Ondansetron HCl (Zofran) 4 mg 1X ONCE IV Last administered on 11/24/18at 03:45; Start 11/24/18 at 03:15; Stop 11/24/18 at 03:18; Status DC Iohexol (Omnipaque 300 Mg/ml) 75 ml 1X ONCE IV Last administered on 11/24/18at 04:30; Start 11/24/18 at 03:45; Stop 11/24/18 at 03:46; Status DC Info (CONTRAST GIVEN -- Rx MONITORING) 1 each PRN DAILY PRN MC SEE COMMENTS; Start 11/24/18 at 03:45; Stop 11/26/18 at 03:44; Status DC Benzocaine (Hurricaine One) 1 spray 1X ONCE MM ; Start 11/24/18 at 05:15; Stop 11/24/18 at 05:16; Status DC Morphine Sulfate (Morphine Sulfate) 4 mg 1X ONCE IV Last administered on at 06:03; Start 11/24/18 at 06:00; Stop 11/24/18 at 06:01; Status DC Sodium Chloride 1,000 ml @ 1,000 mls/hr 1X ONCE IV Last administered on 11/24/18 06:03; Start 11/24/18 at 06:00; Stop 11/24/18 at 06:59; Status DC Morphine Sulfate (Morphine Sulfate) 4 mg PRN Q2HR PRN IV PAIN Last administered on 12/03/18 13:17; Start 11/24/18 at 06:00 Sodium Chloride 1,000 ml @ 125 mls/hr 1X ONCE IV Last administered on 11/24/18at 08:10; Start 11/24/18 at 06:00; Stop 11/24/18 at 13:59; Status DC Ondansetron HCl (Zofran) 4 mg PRN Q6HRS PRN IV NAUSEA/VOMITING; Start 11/24/18 at 06:00 Piperacillin Sod/ Tazobactam Sod (Zosyn Per Pharmacy) 1 each PRN DAILY PRN MC SEE COMMENTS; Start 11/24/18 at 06:00 Piperacillin Sod/ Tazobactam Sod 3.375 gm/Sodium Chloride 50 ml @ 100 mls/hr 1X ONCE IV Last administered on 11/24/18at 06:53; Start 11/24/18 at 06:15; Stop 11/24/18 at 06:44; Status DC Piperacillin Sod/ Tazobactam Sod 3.375 gm/Sodium Chloride 50 ml @ 100 mls/hr Q6HRS IV Last administered on 12/03/18 12:17; Start 11/24/18 at 12:00 Pantoprazole Sodium (PROTONIX VIAL for IV PUSH) 40 mg DAILYAC IVP Last administered on 11/25/18at 09:04; Start 11/24/18 at 11:30; Stop 11/25/18 at 11:36; Status DC Insulin Human Lispro (HumaLOG) 0-5 UNITS TIDWMEALS SQ Last administered on 12/02/18 09:11; Start 11/24/18 at 12:00; Stop 12/02/18 at 11:09; Status DC Dextrose (Dextrose 50%-Water Syringe) 12.5 gm PRN Q15MIN PRN IV SEE COMMENTS; Start 11/24/18 at 09:45 Amino Acids/ Glycerin/ Electrolytes 1,000 ml @ 50 mls/hr Q20H IV Last administered on 11/29/18at 20:24; Start 11/24/18 at 09:45; Stop 11/30/18 at 21:00; Status DC Budesonide (Pulmicort) 0.5 mg RTBID NEB Last administered on 12/03/18 07:45; Start 11/24/18 at 10:00 Albuterol/ Ipratropium (Duoneb) 3 ml RTQID NEB Last administered on 12/03/18 12:27; Start 11/24/18 at 12:00 Furosemide (Lasix) 40 mg 1X ONCE IVP Last administered on 11/25/18at 04:44; S tart 11/25/18 at 05:00; Stop 11/25/18 at 05:01; Status DC Albuterol Sulfate (Ventolin Neb Soln) 2.5 mg PRN Q6HRS PRN NEB SHORTNESS OF BREATH Last administered on 11/28/18at 03:57; Start 11/25/18 at 04:45 Pantoprazole Sodium (PROTONIX VIAL for IV PUSH) 40 mg BIDAC IVP Last administered on 12/02/18 06:17; Start 11/25/18 at 16:30; Stop 12/02/18 at 15:46; Status DC Potassium Chloride/Water 100 ml @ 100 mls/hr Q1H IV Last administered on 11/25/18 16:26; Start 11/25/18 at 13:00; Stop 11/25/18 at 16:59; Status DC Furosemide (Lasix) 20 mg 1X ONCE IVP Last administered on 11/26/18at 00:34; Start 11/26/18 at 01:00; Stop 11/26/18 at 01:01; Status DC Micafungin Sodium 100 mg/Dextrose 100 ml @ 100 mls/hr Q24H IV Last administered on 11/30/18 09:14; Start 11/26/18 at 09:00; Stop 11/30/18 at 14:12; Status DC Furosemide (Lasix) 40 mg 1X ONCE IVP Last administered on 11/26/18at 10:33; St art 11/26/18 at 09:15; Stop 11/26/18 at 09:16; Status DC Albumin Human 100 ml @ 100 mls/hr 1X ONCE IV Last administered on 11/26/18at 10:34; Start 11/26/18 at 09:15; Stop 11/26/18 at 10:14; Status DC Metoprolol Tartrate (Lopressor Vial) 5 mg PRN Q6HRS PRN IVP HYPERTENSION, SEE COMMENTS; Start 11/26/18 at 12:00; Stop 11/26/18 at 14:22; Status DC Metoprolol Tartrate (Lopressor Vial) 5 mg Q6HRS IVP Last administered on 12/03/18at 12:17; Start 11/26/18 at 16:00 Furosemide (Lasix) 40 mg DAILY IVP Last administered on 12/03/18at 08:47; Start 11/27/18 at 09:00 Ondansetron HCl (Zofran) 4 mg PRN Q6HRS PRN IV NAUSEA/VOMITING; Start 11/29/18 at 07:00; Stop 11/29/18 at 19:00; Status DC Fentanyl Citrate (Fentanyl 2ml Vial) 25 mcg PRN Q5MIN PRN IV MILD PAIN; Start 11/29/18 at 07:00; Stop 11/29/18 at 19:00; Status DC Fentanyl Citrate (Fentanyl 2ml Vial) 50 mcg PRN Q5MIN PRN IV MODERATE TO SEVERE PAIN; Start 11/29/18 at 07:00; Stop 11/29/18 at 19:00; Status DC Morphine Sulfate (Morphine Sulfate) 1 mg PRN Q10MIN PRN IV SEVERE PAIN; Start 11/29/18 at 07:00; Stop 11/29/18 at 19:00; Status DC Ringer's Solution 1,000 ml @ 30 mls/hr Q24H IV ; Start 11/29/18 at 07:00; Stop 11/29/18 at 18:59; Status DC Lidocaine HCl (Xylocaine-Mpf 1% 2ml Vial) 2 ml PRN 1X PRN ID PRIOR TO IV START; Start 11/29/18 at 07:00; Stop 11/29/18 at 19:00; Status DC Hydromorphone HCl (Dilaudid) 0.5 mg PRN Q10MIN PRN IV SEV PAIN, Second choice; Start 11/29/18 at 07:00; Stop 11/29/18 at 19:00; Status DC Prochlorperazine Edisylate (Compazine) 5 mg PACU PRN PRN IV NAUSEA, MRX1; Start 11/29/18 at 07:00; Stop 11/29/18 at 19:00; Status DC Levothyroxine Sodium 50 mcg/ Sodium Chloride 5 ml @ 100 mls/hr Q3DAYS IVP Last administered on 12/01/18at 08:49; Start 12/01/18 at 09:00 Potassium Chloride/Water 100 ml @ 100 mls/hr Q1H IV Last administered on 11/27/18at 16:39; Start 11/27/18 at 12:30; Stop 11/27/18 at 16:29; Status DC Methylprednisolone Sodium Succinate (SOLU-Medrol 125MG VIAL) 80 mg Q8HRS IV Last administered on 12/01/18at 12:35; Start 11/28/18 at 17:00; Stop 12/01/18 at 17:42; Status DC Potassium Chloride/Water 100 ml @ 100 mls/hr Q1H IV Last administered on 11/29/18at 14:30; Start 11/29/18 at 07:00; Stop 11/29/18 at 10:59; Status DC Info (Tpn Per Pharmacy) 1 each PRN DAILY PRN MC SEE COMMENTS Last administered on 12/03/18at 13:01; Start 11/30/18 at 14:45 Sodium Chloride 90 meq/Potassium Chloride 50 meq/ Potassium Phosphate 13.6 mmol/Magnesium Sulfate 10 meq/ Calcium Gluconate 10 meq/ Multivitamins 10 ml/Chromium/ Copper/Manganese/ Seleni/Zn 1 ml/ Total Parenteral Nutrition/Amino Acids/Dextrose/ Fat Emulsion Intravenous 1,512 ml @ 63 mls/hr TPN CONT IV Last administered on 11/30/18at 21:11; Start 11/30/18 at 22:00; Stop 12/01/18 at 21:59; Status DC Potassium Phosphate 15 mmol/ Sodium Chloride 255 ml @ 85 mls/hr 1X ONCE IV Last administered on 12/01/18at 15:09; Start 12/01/18 at 15:00; Stop 12/01/18 at 17:59; Status DC Sodium Chloride 90 meq/Potassium Chloride 70 meq/ Potassium Phosphate 13.6 mmol/Magnesium Sulfate 10 meq/ Calcium Gluconate 10 meq/ Multivitamins 10 ml/Chromium/ Copper/Manganese/ Seleni/Zn 1 ml/ Total Parenteral Nutrition/Amino Acids/Dextrose/ Fat Emulsion Intravenous 1,512 ml @ 63 mls/hr TPN CONT IV Last administered on 12/01/18at 21:40; Start 12/01/18 at 22:00; Stop 12/02/18 at 21:59; Status DC Methylprednisolone Sodium Succinate (SOLU-Medrol 40MG VIAL) 80 mg BID IV Last administered on 12/02/18at 09:06; Start 12/01/18 at 21:00; Stop 12/02/18 at 11:09; Status DC Methylprednisolone Sodium Succinate (SOLU-Medrol 40MG VIAL) 40 mg DAILY IV Last administered on 12/03/18at 08:48; Start 12/03/18 at 09:00 Insulin Human Lispro (HumaLOG) 0-12 UNITS QIDACHS SQ Last administered on 12/03/18at 12:25; Start 12/02/18 at 11:30 Potassium Phosphate 15 mmol/ Sodium Chloride 255 ml @ 85 mls/hr 1X ONCE IV Last administered on 12/02/18at 14:49; Start 12/02/18 at 15:00; Stop 12/02/18 at 17:59; Status DC Sodium Chloride 90 meq/Potassium Chloride 70 meq/ Potassium Phosphate 13.6 mmol/Magnesium Sulfate 10 meq/ Calcium Gluconate 10 meq/ Multivitamins 10 ml/Chromium/ Copper/Manganese/ Seleni/Zn 1 ml/ Total Parenteral Nutrition/Amino Acids/Dextrose/ Fat Emulsion Intravenous 1,512 ml @ 63 mls/hr TPN CONT IV Last administered on 12/02/18at 20:50; Start 12/02/18 at 22:00; Stop 12/03/18 at 21:59 Famotidine (Pepcid Vial) 20 mg BID IVP Last administered on 12/03/18at 08:47; Start 12/02/18 at 21:00 Aspirin (Aspirin) 150 mg DAILY SD Last administered on 12/03/18at 10:11; Start 12/03/18 at 10:30 Potassium Phosphate 15 mmol/ Sodium Chloride 255 ml @ 85 mls/hr 1X ONCE IV Last administered on 12/03/18at 13:16; Start 12/03/18 at 13:00; Stop 12/03/18 at 15:59 Sodium Chloride 90 meq/Potassium Chloride 70 meq/ Potassium Phosphate 18 mmol/ Magnesium Sulfate 10 meq/Calcium Gluconate 10 meq/ Multivitamins 10 ml/Chromium/ Copper/Manganese/ Seleni/Zn 1 ml/ Total Parenteral Nutrition/Amino Acids/Dextrose/ Fat Emulsion Intravenous 1,512 ml @ 63 mls/hr TPN CONT IV ; Start 12/03/18 at 22:00; Stop 12/04/18 at 21:59 Active Scripts Active Sertraline Hcl 25 Mg Tablet 50 Mg PO QHS 30 Days Magnesium Chloride 70 Mg Tablet. 64 Mg PO DAILY 30 Days Synthroid (Levothyroxine Sodium) 88 Mcg Tablet 88 Mcg PO DAILY06 30 Days Prednisone 20 Mg Tablet 20 Mg PO DAILY 30 Days Budesonide 0.5 Mg/2 Ml Ampul.neb 0.5 Mg NEB RTBID 30 Days Klor-Con 10 (Potassium Chloride) 10 Meq Tablet.er 1 Tab PO DAILY Lasix (Furosemide) 40 Mg Tablet 1 Tab PO DAILY Aspirin Ec (Aspirin) 81 Mg Tablet. 81 Mg PO DAILYWBKFT 30 Days Duoneb 0.5-3(2.5) Mg/3 Ml (Albuterol/Ipratropium) 3 Ml Ampul.neb 3 Ml NEB RTQID 30 Days Diltiazem 24HR Cd (Diltiazem Hcl) 120 Mg Cap.er.24h 120 Mg PO DAILY 30 Days Reported Hydrocodone-Apap 7.5-325 (Hydrocodone Bit/Acetaminophen) 1 Tab Tablet 1 Tab PO PRN Q6HRS PRN Omeprazole 40 Mg Capsule. 40 Mg PO DAILY Vitals/I & O Vital Sign - Last 24 Hours 12/02/18 12/02/18 12/02/18 12/02/18 15:35 15:44 17:54 17:55 Temp 97.7 97.7 Pulse 72 72 Resp 20 B/P (MAP) 131/83 (99) 131/83 Pulse Ox 100 95 95 O2 Delivery Nasal Cannula Nasal Cannula Nasal Cannula O2 Flow Rate 4.0 4.0 4.0 12/02/18 12/02/18 12/02/18 12/02/18 19:00 20:00 20:57 21:01 Temp 97.3 97.3 Pulse 78 Resp 18 20 B/P (MAP) 117/79 (92) Pulse Ox 97 98 98 O2 Delivery Nasal Cannula Nasal Cannula Nasal Cannula O2 Flow Rate 4.0 4.0 2.0 2.0 12/02/18 12/02/18 12/02/18 12/03/18 21:27 23:00 23:49 03:00 Temp 97.6 97.4 97.6 97.4 Pulse 63 69 79 Resp 18 18 B/P (MAP) 117/72 (87) 117/72 146/88 (107) Pulse Ox 97 97 O2 Delivery Nasal Cannula Nasal Cannula O2 Flow Rate 4.0 4.0 4.0 12/03/18 12/03/18 12/03/18 12/03/18 05:51 07:00 07:45 08:10 Temp 97.6 97.6 Pulse 89 85 Resp 18 B/P (MAP) 142/82 135/86 (102) Pulse Ox 93 92 O2 Delivery Nasal Cannula Nasal Cannula Nasal Cannula O2 Flow Rate 4.0 4.0 4.0 12/03/18 12/03/18 12/03/18 12/03/18 08:48 11:00 12:17 12:30 Temp 97.6 97.6 Pulse 92 92 Resp 20 18 B/P (MAP) 107/72 (84) 107/72 Pulse Ox 4 95 95 O2 Delivery Nasal Cannula Nasal Cannula Nasal Cannula O2 Flow Rate 4.0 4.0 12/03/18 12/03/18 12/03/18 13:17 13:17 13:47 Pulse 72 Resp 18 16 B/P (MAP) 110/64 (79) Pulse Ox 4 O2 Delivery Nasal Cannula Nasal Cannula Intake and Output 12/02/18 12/02/18 12/03/18 15:00 23:00 07:00 Intake Total 0 ml 0 ml Output Total 700 ml 400 ml 350 ml Balance -700 ml -400 ml -350 ml Problem List Problems Medical Problems: (1) Pneumonia Status: Acute Assessment Abd pain- with partial SBo, slow improvement, advance diet as tolerated, continue TPN until then JANE PIERRE MD December 03, 2018 14:46
[2018-12-03] MEDS ORDERED: TOTAL PARENTERAL NUTRITION IV SCH ×10 (22:00)
[2018-12-03] MEDS ORDERED: AMINO ACID IV SCH ×10 (22:00)
[2018-12-03] MEDS ORDERED: [UNRECOGNIZED DRUG - OTHER] IV SCH ×10 (22:00)
[2018-12-03] MEDS ORDERED: DEXTROSE 70% IV SCH ×10 (22:00)
[2018-12-04] MEDS: METOPROLOL TARTRATE 5 MG/5 ML VIAL. IVP SCH ×5 (00:10→23:19)
[2018-12-04] MEDS: PIPERACILLIN/TAZOBACTAM 3.375 GM in IV NORMAL SALINE 50ML 50 ML IV SCH ×5 (00:11→23:17)
[2018-12-04 03:46] VITALS: BP 138/83
[2018-12-04] MEDS: MORPHINE SULFATE 4 MG/ML VIAL. IV PRN (05:13)
[2018-12-04 07:00] VITALS: BP 156/93
--- NOTE | 2018-12-04 07:07 | PDOC ---
PROGRESS NOTES Subjective Subjective Patient with minimal flatus. NG out,Surgery note recc VALENTINE. Patient requesting Lortab instead of morphine. CT chest shows continued pneumonia changes. Objective Objective Vital Signs Date Time Temp Pulse Resp B/P (MAP) Pulse Ox O2 Delivery O2 Flow Rate FiO2 12/04/18 05:40 Nasal Cannula 3.0 12/04/18 05:13 15 12/04/18 05:09 73 138/73 12/04/18 03:46 97.3 98 97.3 Intake and Output 12/04/18 06:59 Intake Total 0 ml Output Total 850 ml Balance -850 ml Intake Oral 0 ml Output Urine Total 850 ml # Voids 7 Physical Exam Abdomen: Other (Minimal BS today) Heart: Regular rate Extremities: No edema General: Alert Lungs: Clear to auscultation Assessment Assessment Problems Medical Problems: (1) Pneumonia Status: Acute SBO esophagitis possible GI bleed aspiration pneumonia anemia hyperglycemia CAD 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 Labs Laboratory Tests Test 12/02/18 07:15 12/02/18 11:58 12/02/18 16:45 12/02/18 21:06 Glucose (Fingerstick) 363 mg/dL (70-99) 272 mg/dL (70-99) 206 mg/dL (70-99) 207 mg/dL (70-99) Test 12/03/18 04:10 12/03/18 08:43 12/03/18 11:36 12/03/18 15:56 White Blood Count 6.6 x10^3/uL (4.0-11.0) Red Blood Count 2.83 x10^6/uL (4.30-5.70) Hemoglobin 8.9 g/dL (13.0-17.5) Hematocrit 27.1 % (39.0-53.0) Mean Corpuscular Volume 96 fL (79-100) Mean Corpuscular Hemoglobin 32 pg (25-35) Mean Corpuscular Hemoglobin Concent 33 g/dL (31-37) Red Cell Distribution Width 15.2 % (11.5-14.5) Platelet Count 278 x10^3/uL (140-400) Sodium Level 143 mmol/L (136-145) Potassium Level 3.9 mmol/L (3.5-5.1) Chloride Level 105 mmol/L (98-107) Carbon Dioxide Level 35 mmol/L (21-32) Anion Gap 3 (6-14) Blood Urea Nitrogen 23 mg/dL (8-26) Creatinine 0.7 mg/dL (0.7-1.3) Estimated GFR (Cockcroft-Gault) 109.6 Glucose Level 294 mg/dL (70-99) Calcium Level 9.2 mg/dL (8.5-10.1) Phosphorus Level 2.1 mg/dL (2.6-4.7) Magnesium Level 2.3 mg/dL (1.8-2.4) Glucose (Fingerstick) 253 mg/dL (70-99) 171 mg/dL (70-99) 169 mg/dL (70-99) Test 12/03/18 20:18 12/04/18 05:30 Glucose (Fingerstick) 219 mg/dL (70-99) 167 mg/dL (70-99) Laboratory Tests Test 12/03/18 08:43 12/03/18 11:36 12/03/18 15:56 12/03/18 20:18 Glucose (Fingerstick) 253 mg/dL (70-99) 171 mg/dL (70-99) 169 mg/dL (70-99) 219 mg/dL (70-99) Test 12/04/18 05:30 Glucose (Fingerstick) 167 mg/dL (70-99) Microbiology 11/24/18 Blood Culture - Final, Complete 11/24/18 Blood Culture Result 1 (ATA) - Final, Complete 11/24/18 Antimicrobic Susceptibility - Final, Complete Medications Current Medications Fentanyl Citrate (Fentanyl 2ml Vial) 50 mcg 1X ONCE IV Last administered on 11/24/18at 03:45; Start 11/24/18 at 03:15; Stop 11/24/18 at 03:18; Status DC Sodium Chloride 1,000 ml @ 1,000 mls/hr 1X ONCE IV Last administered on 11/24/18at 03:45; Start 11/24/18 at 03:15; Stop 11/24/18 at 04:14; Status DC Ondansetron HCl (Zofran) 4 mg 1X ONCE IV Last administered on 11/24/18at 03:45; Start 11/24/18 at 03:15; Stop 11/24/18 at 03:18; Status DC Iohexol (Omnipaque 300 Mg/ml) 75 ml 1X ONCE IV Last administered on 11/24/18at 04:30; Start 11/24/18 at 03:45; Stop 11/24/18 at 03:46; Status DC Info (CONTRAST GIVEN -- Rx MONITORING) 1 each PRN DAILY PRN MC SEE COMMENTS; Start 11/24/18 at 03:45; Stop 11/26/18 at 03:44; Status DC Benzocaine (Hurricaine One) 1 spray 1X ONCE MM ; Start 11/24/18 at 05:15; Stop 11/24/18 at 05:16; Status DC Morphine Sulfate (Morphine Sulfate) 4 mg 1X ONCE IV Last administered on 11/24/18at 06:03; Start 11/24/18 at 06:00; Stop 11/24/18 at 06:01; Status DC Sodium Chloride 1,000 ml @ 1,000 mls/hr 1X ONCE IV Last administered on 11/24/18at 06:03; Start 11/24/18 at 06:00; Stop 11/24/18 at 06:59; Status DC Morphine Sulfate (Morphine Sulfate) 4 mg PRN Q2HR PRN IV PAIN Last administered on 12/04/18at 05:13; Start 11/24/18 at 06:00 Sodium Chloride 1,000 ml @ 125 mls/hr 1X ONCE IV Last administered on 11/24/18at 08:10; Start 11/24/18 at 06:00; Stop 11/24/18 at 13:59; Status DC Ondansetron HCl (Zofran) 4 mg PRN Q6HRS PRN IV NAUSEA/VOMITING; Start 11/24/18 at 06:00 Piperacillin Sod/ Tazobactam Sod (Zosyn Per Pharmacy) 1 each PRN DAILY PRN MC SEE COMMENTS; Start 11/24/18 at 06:00 Piperacillin Sod/ Tazobactam Sod 3.375 gm/Sodium Chloride 50 ml @ 100 mls/hr 1X ONCE IV Last administered on 11/24/18 06:53; Start 11/24/18 at 06:15; Stop 11/24/18 at 06:44; Status DC Piperacillin Sod/ Tazobactam Sod 3.375 gm/Sodium Chloride 50 ml @ 100 mls/hr Q6HRS IV Last administered on 12/04/18 05:03; Start 11/24/18 at 12:00 Pantoprazole Sodium (PROTONIX VIAL for IV PUSH) 40 mg DAILYAC IVP Last administered on 11/25/18 09:04; Start 11/24/18 at 11:30; Stop 11/25/18 at 11:36; Status DC Insulin Human Lispro (HumaLOG) 0-5 UNITS TIDWMEALS SQ Last administered on 12/02/18 09:11; Start 11/24/18 at 12:00; Stop 12/02/18 at 11:09; Status DC Dextrose (Dextrose 50%-Water Syringe) 12.5 gm PRN Q15MIN PRN IV SEE COMMENTS; Start 11/24/18 at 09:45 Amino Acids/ Glycerin/ Electrolytes 1,000 ml @ 50 mls/hr Q20H IV Last administered on 11/29/18 20:24; Start 11/24/18 at 09:45; Stop 11/30/18 at 21:00; Status DC Budesonide (Pulmicort) 0.5 mg RTBID NEB Last administered on 12/03/18 19:55; Start 11/24/18 at 10:00 Albuterol/ Ipratropium (Duoneb) 3 ml RTQID NEB Last administered on 12/03/18 19:54; Start 11/24/18 at 12:00 Furosemide (Lasix) 40 mg 1X ONCE IVP Last administered on 11/25/18 04:44; Start 11/25/18 at 05:00; Stop 11/25/18 at 05:01; Status DC Albuterol Sulfate (Ventolin Neb Soln) 2.5 mg PRN Q6HRS PRN NEB SHORTNESS OF BREATH Last administered on 11/28/18 03:57; Start 11/25/18 at 04:45 Pantoprazole Sodium (PROTONIX VIAL for IV PUSH) 40 mg BIDAC IVP Last administered on 12/02/18 06:17; Start 11/25/18 at 16:30; Stop 12/02/18 at 15:46; Status DC Potassium Chloride/Water 100 ml @ 100 mls/hr Q1H IV Last administered on 11/25/18at 16:26; Start 11/25/18 at 13:00; Stop 11/25/18 at 16:59; Status DC Furosemide (Lasix) 20 mg 1X ONCE IVP Last administered on 11/26/18at 00:34; Start 11/26/18 at 01:00; Stop 11/26/18 at 01:01; Status DC Micafungin Sodium 100 mg/Dextrose 100 ml @ 100 mls/hr Q24H IV Last administe red on 11/30/18at 09:14; Start 11/26/18 at 09:00; Stop 11/30/18 at 14:12; Status DC Furosemide (Lasix) 40 mg 1X ONCE IVP Last administered on 11/26/18at 10:33; Start 11/26/18 at 09:15; Stop 11/26/18 at 09:16; Status DC Albumin Human 100 ml @ 100 mls/hr 1X ONCE IV Last administered on 11/26/18at 10:34; Start 11/26/18 at 09:15; Stop 11/26/18 at 10:14; Status DC Metoprolol Tartrate (Lopressor Vial) 5 mg PRN Q6HRS PRN IVP HYPERTENSION, SEE COMMENTS; Start 11/26/18 at 12:00; Stop 11/26/18 at 14:22; Status DC Metoprolol Tartrate (Lopressor Vial) 5 mg Q6HRS IVP Last administered on 12/04/18at 05:09; Start 11/26/18 at 16:00 Furosemide (Lasix) 40 mg DAILY IVP Last administered on 12/03/18at 08:47; Start 11/27/18 at 09:00 Ondansetron HCl (Zofran) 4 mg PRN Q6HRS PRN IV NAUSEA/VOMITING; Start 11/29/18 at 07:00; Stop 11/29/18 at 19:00; Status DC Fentanyl Citrate (Fentanyl 2ml Vial) 25 mcg PRN Q5MIN PRN IV MILD PAIN; Start 11/29/18 at 07:00; Stop 11/29/18 at 19:00; Status DC Fentanyl Citrate (Fentanyl 2ml Vial) 50 mcg PRN Q5MIN PRN IV MODERATE TO SEVERE PAIN; Start 11/29/18 at 07:00; Stop 11/29/18 at 19:00; Status DC Morphine Sulfate (Morphine Sulfate) 1 mg PRN Q10MIN PRN IV SEVERE PAIN; Start 11/29/18 at 07:00; Stop 11/29/18 at 19:00; Status DC Ringer's Solution 1,000 ml @ 30 mls/hr Q24H IV ; Start 11/29/18 at 07:00; Stop 11/29/18 at 18:59; Status DC Lidocaine HCl (Xylocaine-Mpf 1% 2ml Vial) 2 ml PRN 1X PRN ID PRIOR TO IV START; Start 11/29/18 at 07:00; Stop 11/29/18 at 19:00; Status DC Hydromorphone HCl (Dilaudid) 0.5 mg PRN Q10MIN PRN IV SEV PAIN, Second choice; Start 11/29/18 at 07:00; Stop 11/29/18 at 19:00; Status DC Prochlorperazine Edisylate (Compazine) 5 mg PACU PRN PRN IV NAUSEA, MRX1; Start 11/29/18 at 07:00; Stop 11/29/18 at 19:00; Status DC Levothyroxine Sodium 50 mcg/ Sodium Chloride 5 ml @ 100 mls/hr Q3DAYS IVP Last administered on 12/01/18at 08:49; Start 12/01/18 at 09:00 Potassium Chloride/Water 100 ml @ 100 mls/hr Q1H IV Last administered on 11/27/18at 16:39; Start 11/27/18 at 12:30; Stop 11/27/18 at 16:29; Status DC Methylprednisolone Sodium Succinate (SOLU-Medrol 125MG VIAL) 80 mg Q8HRS IV Last administered on 12/01/18at 12:35; Start 11/28/18 at 17:00; Stop 12/01/18 at 17:42; Status DC Potassium Chloride/Water 100 ml @ 100 mls/hr Q1H IV Last administered on 11/29/18at 14:30; Start 11/29/18 at 07:00; Stop 11/29/18 at 10:59; Status DC Info (Tpn Per Pharmacy) 1 each PRN DAILY PRN MC SEE COMMENTS Last administered on 12/03/18at 13:01; Start 11/30/18 at 14:45 Sodium Chloride 90 meq/Potassium Chloride 50 meq/ Potassium Phosphate 13.6 mmol/Magnesium Sulfate 10 meq/ Calcium Gluconate 10 meq/ Multivitamins 10 ml/Chromium/ Copper/Manganese/ Seleni/Zn 1 ml/ Total Parenteral Nutrition/Amino Acids/Dextrose/ Fat Emulsion Intravenous 1,512 ml @ 63 mls/hr TPN CONT IV Last administered on 11/30/18at 21:11; Start 11/30/18 at 22:00; Stop 12/01/18 at 21:59; Status DC Potassium Phosphate 15 mmol/ Sodium Chloride 255 ml @ 85 mls/hr 1X ONCE IV Last administered on 12/01/18at 15:09; Start 12/01/18 at 15:00; Stop 12/01/18 at 17:59; Status DC Sodium Chloride 90 meq/Potassium Chloride 70 meq/ Potassium Phosphate 13.6 mmol/Magnesium Sulfate 10 meq/ Calcium Gluconate 10 meq/ Multivitamins 10 ml/Chromium/ Copper/Manganese/ Seleni/Zn 1 ml/ Total Parenteral Nutrition/Amino Acids/Dextrose/ Fat Emulsion Intravenous 1,512 ml @ 63 mls/hr TPN CONT IV Last administered on 12/01/18at 21:40; Start 12/01/18 at 22:00; Stop 12/02/18 at 21:59; Status DC Methylprednisolone Sodium Succinate (SOLU-Medrol 40MG VIAL) 80 mg BID IV Last administered on 12/02/18at 09:06; Start 12/01/18 at 21:00; Stop 12/02/18 at 11:09; Status DC Methylprednisolone Sodium Succinate (SOLU-Medrol 40MG VIAL) 40 mg DAILY IV Last administered on 12/03/18at 08:48; Start 12/03/18 at 09:00 Insulin Human Lispro (HumaLOG) 0-12 UNITS QIDACHS SQ Last administered on 12/03/18at 21:17; Start 12/02/18 at 11:30 Potassium Phosphate 15 mmol/ Sodium Chloride 255 ml @ 85 mls/hr 1X ONCE IV Last administered on 12/02/18at 14:49; Start 12/02/18 at 15:00; Stop 12/02/18 at 17:59; Status DC Sodium Chloride 90 meq/Potassium Chloride 70 meq/ Potassium Phosphate 13.6 mmol/Magnesium Sulfate 10 meq/ Calcium Gluconate 10 meq/ Multivitamins 10 ml/Chromium/ Copper/Manganese/ Seleni/Zn 1 ml/ Total Parenteral Nutrition/Amino Acids/Dextrose/ Fat Emulsion Intravenous 1,512 ml @ 63 mls/hr TPN CONT IV Last administered on 12/02/18at 20:50; Start 12/02/18 at 22:00; Stop 12/03/18 at 21 :59; Status DC Famotidine (Pepcid Vial) 20 mg BID IVP Last administered on 12/03/18at 21:01; Start 12/02/18 at 21:00 Aspirin (Aspirin) 150 mg DAILY ME Last administered on 12/03/18at 10:11; Start 12/03/18 at 10:30 Potassium Phosphate 15 mmol/ Sodium Chloride 255 ml @ 85 mls/hr 1X ONCE IV Last administered on 12/03/18at 13:16; Start 12/03/18 at 13:00; Stop 12/03/18 at 15:59; Status DC Sodium Chloride 90 meq/Potassium Chloride 70 meq/ Potassium Phosphate 18 mmol/ Magnesium Sulfate 10 meq/Calcium Gluconate 10 meq/ Multivitamins 10 ml/Chromium/ Copper/Manganese/ Seleni/Zn 1 ml/ Total Parenteral Nutrition/Amino Acids/Dextrose/ Fat Emulsion Intravenous 1,512 ml @ 63 mls/hr TPN CONT IV Last administered on 12/03/18at 21:02; Start 12/03/18 at 22:00; Stop 12/04/18 at 21: 59 Active Scripts Active Sertraline Hcl 25 Mg Tablet 50 Mg PO QHS 30 Days Magnesium Chloride 70 Mg Tablet.dr 64 Mg PO DAILY 30 Days Synthroid (Levothyroxine Sodium) 88 Mcg Tablet 88 Mcg PO DAILY06 30 Days Prednisone 20 Mg Tablet 20 Mg PO DAILY 30 Days Budesonide 0.5 Mg/2 Ml Ampul.neb 0.5 Mg NEB RTBID 30 Days Klor-Con 10 (Potassium Chloride) 10 Meq Tablet.er 1 Tab PO DAILY Lasix (Furosemide) 40 Mg Tablet 1 Tab PO DAILY Aspirin Ec (Aspirin) 81 Mg Tablet.dr 81 Mg PO DAILYWBKFT 30 Days Duoneb 0.5-3(2.5) Mg/3 Ml (Albuterol/Ipratropium) 3 Ml Ampul.neb 3 Ml NEB RTQID 30 Days Diltiazem 24HR Cd (Diltiazem Hcl) 120 Mg Cap.er.24h 120 Mg PO DAILY 30 Days Reported Hydrocodone-Apap 7.5-325 (Hydrocodone Bit/Acetaminophen) 1 Tab Tablet 1 Tab PO PRN Q6HRS PRN Omeprazole 40 Mg Capsule.dr 40 Mg PO DAILY Vitals/I & O Vital Sign - Last 24 Hours 12/03/18 12/03/18 12/03/18 12/03/18 07:45 08:10 08:48 11:00 Temp 97.6 97.6 Pulse 92 Resp 20 18 B/P (MAP) 107/72 (84) Pulse Ox 92 4 95 O2 Delivery Nasal Cannula Nasal Cannula Nasal Cannula Nasal Cannula O2 Flow Rate 4.0 4.0 4.0 12/03/18 12/03/18 12/03/18 12/03/18 12:17 12:30 13:17 13:17 Pulse 92 72 Resp 18 B/P (MAP) 107/72 110/64 (79) Pulse Ox 95 O2 Delivery Nasal Cannula Nasal Cannula O2 Flow Rate 4.0 12/03/18 12/03/18 12/03/18 12/03/18 15:00 15:28 18:10 19:45 Temp 97.5 97.6 97.5 97.6 Pulse 72 72 77 Resp 18 16 B/P (MAP) 117/69 (85) 117/69 130/74 (92) Pulse Ox 90 95 92 O2 Delivery Nasal Cannula Nasal Cannula Nasal Cannula O2 Flow Rate 4.0 3.0 4.0 12/03/18 12/03/18 12/03/18 12/03/18 19:56 20:20 20:37 21:02 Resp 14 16 Pulse Ox 100 100 100 O2 Delivery Nasal Cannula Nasal Cannula Nasal Cannula O2 Flow Rate 3.0 3.0 3.0 12/03/18 12/04/18 12/04/18 12/04/18 23:30 00:10 03:46 05:09 Temp 97.4 97.3 97.4 97.3 Pulse 75 77 73 73 Resp 24 18 B/P (MAP) 137/81 (99) 130/74 138/83 (101) 138/73 Pulse Ox 95 98 O2 Delivery Nasal Cannula Nasal Cannula O2 Flow Rate 4.0 4.0 12/04/18 12/04/18 05:13 05:40 Resp 15 O2 Delivery Nasal Cannula Nasal Cannula O2 Flow Rate 3.0 3.0 Intake and Output 0 12/03/18 12/03/18 12/04/18 14:59 22:59 06:59 Intake Total 0 ml Output Total 850 ml Balance -850 ml 0 ml Nutrition Consultation Dietary Evaluation: Recommendations by RD: PPN/TPN Comments: continue TPN until diet advancement and tolerated Expected Outcomes/Goals: diet adv/ tolerance Malnutrition Findings: Body Fat Depletion (Non Severe: Mild Depletion Weight Status: Underweight LOURDES POLLOCK MD December 04, 2018 07:07
[2018-12-04] MEDS ORDERED: predniSONE 20 MG TABLET PO ONE (07:15)
[2018-12-04] MEDS ORDERED: HYDROcodone/APAP 7.5/325MG 1 TAB TABLET PO ONE ×2 (07:15)
[2018-12-04] MEDS: IPRATRPIUM/ALBUTEROL 0.5/2.5MG 3 ML NEBU. NEB SCH ×4 (07:20→21:11)
[2018-12-04] MEDS: BUDESONIDE 0.5 MG/2 ML NEBU. NEB SCH ×2 (07:20→21:11)
[2018-12-04] MEDS: INSULIN LISPRO 300 UNITS/3 ML INSULN.PEN. SQ SCH ×4 (07:30→21:41)
[2018-12-04] MEDS: ASPIRIN RECTAL 300 MG SUPP. PR SCH (07:55)
[2018-12-04] MEDS: LEVOTHYROXINE 50 MCG TABLET PO SCH (07:55)
[2018-12-04] MEDS: PANTOPRAZOLE 40 MG TABLET.DR. PO SCH (07:55)
[2018-12-04] MEDS: HYDROcodone/APAP 7.5/325MG 1 TAB TABLET PO PRN ×2 (07:56→16:34)
[2018-12-04] MEDS: FUROSEMIDE 40 MG TABLET. PO SCH (07:57)
[2018-12-04 08:05] LABS: CALCIUM 8.7 mg/dL (8.5-10.1); CREATININE 0.6 mg/dL (0.7-1.3); MAGNESIUM 2.1 mg/dL (1.8-2.4); PHOSPHORUS 2.6 mg/dL (2.6-4.7); POTASSIUM 4.3 mmol/L (3.5-5.1)
[2018-12-04] MEDS ORDERED: AMOXICILLIN/K CLAV 875/125MG TABLET. PO SCH (09:00)
--- NOTE | 2018-12-04 09:04 | PDOC ---
SURGICAL PROGRESS NOTE Subjective has tolerated NG out no abdominal pain denies distention Vital Signs Vital Signs Date Time Temp Pulse Resp B/P (MAP) Pulse Ox O2 Delivery O2 Flow Rate FiO2 12/04/18 07:56 16 Nasal Cannula 3.0 12/04/18 07:22 94 12/04/18 07:00 97.6 75 156/93 (114) 97.6 I&O Intake and Output 12/04/18 06:59 Intake Total 0 ml Output Total 850 ml Balance -850 ml Intake Oral 0 ml Output Urine Total 850 ml # Voids 7 General: Alert, Oriented X3, Cooperative, No acute distress Abdomen: Soft, No tenderness Labs Laboratory Tests Test 12/02/18 11:58 12/02/18 16:45 12/02/18 21:06 12/03/18 04:10 Glucose (Fingerstick) 272 mg/dL (70-99) 206 mg/dL (70-99) 207 mg/dL (70-99) White Blood Count 6.6 x10^3/uL (4.0-11.0) Red Blood Count 2.83 x10^6/uL (4.30-5.70) Hemoglobin 8.9 g/dL (13.0-17.5) Hematocrit 27.1 % (39.0-53.0) Mean Corpuscular Volume 96 fL (79-100) Mean Corpuscular Hemoglobin 32 pg (25-35) Mean Corpuscular Hemoglobin Concent 33 g/dL (31-37) Red Cell Distribution Width 15.2 % (11.5-14.5) Platelet Count 278 x10^3/uL (140-400) Sodium Level 143 mmol/L (136-145) Potassium Level 3.9 mmol/L (3.5-5.1) Chloride Level 105 mmol/L (98-107) Carbon Dioxide Level 35 mmol/L (21-32) Anion Gap 3 (6-14) Blood Urea Nitrogen 23 mg/dL (8-26) Creatinine 0.7 mg/dL (0.7-1.3) Estimated GFR (Cockcroft-Gault) 109.6 Glucose Level 294 mg/dL (70-99) Calcium Level 9.2 mg/dL (8.5-10.1) Phosphorus Level 2.1 mg/dL (2.6-4.7) Magnesium Level 2.3 mg/dL (1.8-2.4) Test 12/03/18 08:43 12/03/18 11:36 12/03/18 15:56 12/03/18 20:18 Glucose (Fingerstick) 253 mg/dL (70-99) 171 mg/dL (70-99) 169 mg/dL (70-99) 219 mg/dL (70-99) Test 12/04/18 05:30 12/04/18 07:30 Glucose (Fingerstick) 167 mg/dL (70-99) Sodium Level 139 mmol/L (136-145) Potassium Level 4.3 mmol/L (3.5-5.1) Chloride Level 100 mmol/L (98-107) Carbon Dioxide Level 34 mmol/L (21-32) Anion Gap 5 (6-14) Blood Urea Nitrogen 19 mg/dL (8-26) Creatinine 0.6 mg/dL (0.7-1.3) Estimated GFR (Cockcroft-Gault) 131.0 Glucose Level 198 mg/dL (70-99) Calcium Level 8.7 mg/dL (8.5-10.1) Phosphorus Level 2.6 mg/dL (2.6-4.7) Magnesium Level 2.1 mg/dL (1.8-2.4) Laboratory Tests Test 12/03/18 11:36 12/03/18 15:56 12/03/18 20:18 12/04/18 05:30 Glucose (Fingerstick) 171 mg/dL (70-99) 169 mg/dL (70-99) 219 mg/dL (70-99) 167 mg/dL (70-99) Test 12/04/18 07:30 Sodium Level 139 mmol/L (136-145) Potassium Level 4.3 mmol/L (3.5-5.1) Chloride Level 100 mmol/L (98-107) Carbon Dioxide Level 34 mmol/L (21-32) Anion Gap 5 (6-14) Blood Urea Nitrogen 19 mg/dL (8-26) Creatinine 0.6 mg/dL (0.7-1.3) Estimated GFR (Cockcroft-Gault) 131.0 Glucose Level 198 mg/dL (70-99) Calcium Level 8.7 mg/dL (8.5-10.1) Phosphorus Level 2.6 mg/dL (2.6-4.7) Magnesium Level 2.1 mg/dL (1.8-2.4) Problem List Problems Medical Problems: (1) Pneumonia Status: Acute Assessment/Plan will trial REMBERTO Silva APRN December 04, 2018 09:04
--- NOTE | 2018-12-04 10:32 | PDOC ---
PULMONARY PROGRESS NOTES Subjective STILL VERY WEAK/ MILDLY BETTER Vitals Vital Signs Date Time Temp Pulse Resp B/P (MAP) Pulse Ox O2 Delivery O2 Flow Rate FiO2 12/04/18 09:00 16 94 Nasal Cannula 3.0 12/04/18 07:00 97.6 75 156/93 (114) 97.6 ROS: No Nausea, No Chest Pain, No Increase Cough General: Alert, No acute distress HEENT: Other Lungs: Other (decrease bases) Cardiovascular: S1, S2 Abdomen: Soft, Non-tender, Other Neuro Exam: Alert Extremities: No Edema, Other Labs Laboratory Tests Test 12/02/18 11:58 12/02/18 16:45 12/02/18 21:06 12/03/18 04:10 Glucose (Fingerstick) 272 mg/dL (70-99) 206 mg/dL (70-99) 207 mg/dL (70-99) White Blood Count 6.6 x10^3/uL (4.0-11.0) Red Blood Count 2.83 x10^6/uL (4.30-5.70) Hemoglobin 8.9 g/dL (13.0-17.5) Hematocrit 27.1 % (39.0-53.0) Mean Corpuscular Volume 96 fL (79-100) Mean Corpuscular Hemoglobin 32 pg (25-35) Mean Corpuscular Hemoglobin Concent 33 g/dL (31-37) Red Cell Distribution Width 15.2 % (11.5-14.5) Platelet Count 278 x10^3/uL (140-400) Sodium Level 143 mmol/L (136-145) Potassium Level 3.9 mmol/L (3.5-5.1) Chloride Level 105 mmol/L (98-107) Carbon Dioxide Level 35 mmol/L (21-32) Anion Gap 3 (6-14) Blood Urea Nitrogen 23 mg/dL (8-26) Creatinine 0.7 mg/dL (0.7-1.3) Estimated GFR (Cockcroft-Gault) 109.6 Glucose Level 294 mg/dL (70-99) Calcium Level 9.2 mg/dL (8.5-10.1) Phosphorus Level 2.1 mg/dL (2.6-4.7) Magnesium Level 2.3 mg/dL (1.8-2.4) Test 12/03/18 08:43 12/03/18 11:36 12/03/18 15:56 12/03/18 20:18 Glucose (Fingerstick) 253 mg/dL (70-99) 171 mg/dL (70-99) 169 mg/dL (70-99) 219 mg/dL (70-99) Test 12/04/18 05:30 12/04/18 07:30 Glucose (Fingerstick) 167 mg/dL (70-99) Sodium Level 139 mmol/L (136-145) Potassium Level 4.3 mmol/L (3.5-5.1) Chloride Level 100 mmol/L (98-107) Carbon Dioxide Level 34 mmol/L (21-32) Anion Gap 5 (6-14) Blood Urea Nitrogen 19 mg/dL (8-26) Creatinine 0.6 mg/dL (0.7-1.3) Estimated GFR (Cockcroft-Gault) 131.0 Glucose Level 198 mg/dL (70-99) Calcium Level 8.7 mg/dL (8.5-10.1) Phosphorus Level 2.6 mg/dL (2.6-4.7) Magnesium Level 2.1 mg/dL (1.8-2.4) Laboratory Tests Test 12/03/18 11:36 12/03/18 15:56 12/03/18 20:18 12/04/18 05:30 Glucose (Fingerstick) 171 mg/dL (70-99) 169 mg/dL (70-99) 219 mg/dL (70-99) 167 mg/dL (70-99) Test 12/04/18 07:30 Sodium Level 139 mmol/L (136-145) Potassium Level 4.3 mmol/L (3.5-5.1) Chloride Level 100 mmol/L (98-107) Carbon Dioxide Level 34 mmol/L (21-32) Anion Gap 5 (6-14) Blood Urea Nitrogen 19 mg/dL (8-26) Creatinine 0.6 mg/dL (0.7-1.3) Estimated GFR (Cockcroft-Gault) 131.0 Glucose Level 198 mg/dL (70-99) Calcium Level 8.7 mg/dL (8.5-10.1) Phosphorus Level 2.6 mg/dL (2.6-4.7) Magnesium Level 2.1 mg/dL (1.8-2.4) Medications Active Scripts Medications Dose Route/Sig Max Daily Dose Days Date Category Sertraline Hcl 25 Mg Tablet 50 Mg PO QHS 10/01/18 Rx Magnesium Chloride 70 Mg Tablet. 64 Mg PO DAILY 08/30/18 Rx Synthroid (Levothyroxine Sodium) 88 Mcg Tablet 88 Mcg PO DAILY06 08/30/18 Rx Prednisone 20 Mg Tablet 20 Mg PO DAILY 08/30/18 Rx Budesonide 0.5 Mg/2 Ml Ampul.neb 0.5 Mg NEB RTBID 08/30/18 Rx Hydrocodone-Apap 7.5-325 (Hydrocodone Bit/Acetaminophen) 1 Tab Tablet 1 Tab PO PRN Q6HRS PRN 08/26/18 Reported Omeprazole 40 Mg Capsule. 40 Mg PO DAILY 08/26/18 Reported Klor-Con 10 (Potassium Chloride) 10 Meq Tablet.er 1 Tab PO DAILY 07/16/18 Rx Lasix (Furosemide) 40 Mg Tablet 1 Tab PO DAILY 07/16/18 Rx Aspirin Ec (Aspirin) 81 Mg Tablet. 81 Mg PO DAILYWBKFT 07/16/18 Rx Duoneb 0.5-3(2.5) Mg/3 Ml (Albuterol/Ipratropium) 3 Ml Ampul.neb 3 Ml NEB RTQID 07/01/18 Rx Diltiazem 24HR Cd (Diltiazem Hcl) 120 Mg Cap.er.24h 120 Mg PO DAILY 07/01/18 Rx Comments BLOOD CULTURE LC Final Final report BLD CULT RESULT 1 Final Comment Streptococcus salivarius group ANTIMICROBIAL SUSCEPTIBILITY Final Comment S = Susceptible; I = Intermediate; R = Resistant P = Positive; N = Negative MICS are expressed in micrograms per mL Antibiotic RSLT#1 RSLT#2 RSLT#3 RSLT#4 Ceftriaxone S<=0.25 Chloramphenicol S =2 Clindamycin S<=0.06 Erythromycin R> 0.5 Penicillin S =0.12 Vancomycin S =0.5 Performed at: [facility] [address], [place], [place] [id number] [employer] Set Up Operator: ANGELES Camargo MD, Phone: [phone] ct chest 1. Bibasilar lung consolidation changes likely pneumonia or infiltrates with underlying diffuse bibasilar reticular interstitial lung markings likely idiopathic pulmonary fibrosis. 2. Coronary artery calcifications. 3. Mild compression changes of T9, T10, T12 vertebral bodies. 4. Subcentimeter hypodensity identified in the right lobe of the liver, difficult to characterize similar to prior exam. Impression . IMPRESSION: 1. Acute hypoxemic respiratory failure. multi-factorial 2. Abnormal x-ray compatible with bilateral pulmonary infiltrates, suspect combination of, Pneumonia and acute lung injury from possible aspiration./ underlying severe honeycombing/ fibrosis ct chest 09/21, extensive basal fibrosis 3. Aspiration pneumonia. 4. Small-bowel obstruction. 5. Dysphagia. 6. Leukocytosis. 7. Bacteremia. 8. Atrial fibrillation. 9. [id number] heart failure. Plan . STILL WEAK/ MILDLY BETTER UP TO CHAIR CONTINUE SUPPORT FOLLOW SURGERY INPUT ANTIBX PT DIURESE STERNOIDS TAPER CT CHEST REVIEWED/ EXTENSIVE FIBROSIS/ BASAL PNEUMONIA/ WILL TAKE FEW WEEKS TO RECOVER AR HINES MD December 04, 2018 10:32
[2018-12-04 11:00] VITALS: BP 141/82
--- NOTE | 2018-12-04 15:05 | PDOC ---
Infectious Disease Note Subjective Subjective Not feeling well "everything bothers me" No fevers or chills Denies N/V/abd pain O2 2L TPN Clear liquids ROS ROS per HPI Vital Sign Vital Signs Vital Signs Date Time Temp Pulse Resp B/P (MAP) Pulse Ox O2 Delivery O2 Flow Rate FiO2 12/04/18 12:26 78 141/82 12/04/18 11:50 Nasal Cannula 3.0 12/04/18 11:00 97.8 18 98 97.8 Physical Exam PHYSICAL EXAM GENERAL: Propped up in bed, weak appearing, HEENT: Oral cavity and pharynx dry. NGT out NECK: Supple, no JVD. LUNGS: Improved aeration HEART: S1, S2. ABDOMEN: ND, soft, NT BS present EXTREMITIES: Without clubbing or cyanosis. 2+ edema lower extremities, bilaterally NEUROLOGIC: Alert, answering questions appropriately SKIN: Without generalized signs of rash. RUE-PICC (11/30) clean Labs Lab Laboratory Tests Test 12/03/18 15:56 12/03/18 20:18 12/04/18 05:30 12/04/18 07:30 Glucose (Fingerstick) 169 mg/dL (70-99) 219 mg/dL (70-99) 167 mg/dL (70-99) Sodium Level 139 mmol/L (136-145) Potassium Level 4.3 mmol/L (3.5-5.1) Chloride Level 100 mmol/L (98-107) Carbon Dioxide Level 34 mmol/L (21-32) Anion Gap 5 (6-14) Blood Urea Nitrogen 19 mg/dL (8-26) Creatinine 0.6 mg/dL (0.7-1.3) Estimated GFR (Cockcroft-Gault) 131.0 Glucose Level 198 mg/dL (70-99) Calcium Level 8.7 mg/dL (8.5-10.1) Phosphorus Level 2.6 mg/dL (2.6-4.7) Magnesium Level 2.1 mg/dL (1.8-2.4) Test 12/04/18 11:44 Glucose (Fingerstick) 251 mg/dL (70-99) 1. Bibasilar lung consolidation changes likely pneumonia or infiltrates with underlying diffuse bibasilar reticular interstitial lung markings likely idiopathic pulmonary fibrosis. 2. Coronary artery calcifications. 3. Mild compression changes of T9, T10, T12 vertebral bodies. 4. Subcentimeter hypodensity identified in the right lobe of the liver, difficult to characterize similar to prior exam. Micro BLOOD CULTURE Final SMALL GRAM NEGATIVE COCCOBACILLI IN 1 OF 4 BOTTLES (ANAEROBIC BOTTLE) TWO SETS DRAWN. BLD CULT RESULT 1 Preliminary Streptococcus species Objective Assessment Bacteremia from 11/24 - (gram neg coccobacilli in 1/4 bottles) Strep salivarius SBO Leukocytosis - better ? thrush AFib CHF Pulmonary fibrosis Plan Plan of Care Switch back to Zosyn Recent steroids Monitor labs Oral care Maintain aspiration precautions f/u am labs Supportive care Patient seen, examined, I agree with above. Assessment and plan was formulated with FLUID DYNAMICIST. OBED WEINER APRN December 04, 2018 15:05 CLARENCE MCKEON MD December 04, 2018 22:22
[2018-12-04 19:30] VITALS: BP 132/69
[2018-12-04] MEDS: LACTOBACILLUS RHAMNOSUS GG 1 CAPSULE. PO SCH (19:56)
[2018-12-04 23:30] VITALS: BP 118/77
[2018-12-05] VITALS (7 sets, daily range): BP systolic 88–141; BP diastolic 57–84
[2018-12-05] MEDS: PIPERACILLIN/TAZOBACTAM 3.375 GM in IV NORMAL SALINE 50ML 50 ML IV SCH ×4 (06:00→23:46)
[2018-12-05] MEDS: METOPROLOL TARTRATE 5 MG/5 ML VIAL. IVP SCH ×4 (06:00→23:46)
[2018-12-05] MEDS: LEVOTHYROXINE 50 MCG TABLET PO SCH (06:11)
[2018-12-05 06:24] LABS: BASO % 0 % (0-3); EOS % 0 % (0-3); HEMATOCRIT 30.4 % (39.0-53.0); LYMPH # 0.6 x10^3/uL (1.0-4.8); LYMPH % 6 % (24-48); MEAN CORPUSCULAR HEMOGLOBIN 31 pg (25-35); MEAN CORPUSCULAR HGB CONC 33 g/dL (31-37); MEAN CORPUSCULAR VOLUME 95 fL (79-100); MONO # 0.4 x10^3/uL (0.0-1.1); MONO % 4 % (0-9); NEUT # 8.9 x10^3uL (1.8-7.7); NEUT % 89 % (31-73); PLATELET COUNT 245 x10^3/uL (140-400); RED BLOOD COUNT 3.21 x10^6/uL (4.30-5.70); RED CELL DISTRIBUTION WIDTH 15.8 % (11.5-14.5)
[2018-12-05 06:37] LABS: CALCIUM 8.5 mg/dL (8.5-10.1); CREATININE 0.6 mg/dL (0.7-1.3); POTASSIUM 3.9 mmol/L (3.5-5.1)
[2018-12-05] MEDS: HYDROcodone/APAP 7.5/325MG 1 TAB TABLET PO PRN ×3 (07:21→21:16)
[2018-12-05] MEDS: INSULIN LISPRO 300 UNITS/3 ML INSULN.PEN. SQ SCH ×4 (07:30→21:00)
--- NOTE | 2018-12-05 07:32 | NUR ---
post void bladder scan this morning 264 ml. will keep monitoring pt.
[2018-12-05] MEDS: BUDESONIDE 0.5 MG/2 ML NEBU. NEB SCH ×2 (08:00→19:38)
[2018-12-05] MEDS: LACTOBACILLUS RHAMNOSUS GG 1 CAPSULE. PO SCH ×2 (08:26→21:16)
[2018-12-05] MEDS: PANTOPRAZOLE 40 MG TABLET.DR. PO SCH (08:26)
[2018-12-05] MEDS: ASPIRIN RECTAL 300 MG SUPP. PR SCH (08:26)
[2018-12-05] MEDS: FUROSEMIDE 40 MG TABLET. PO SCH (08:50)
[2018-12-05] MEDS: IPRATRPIUM/ALBUTEROL 0.5/2.5MG 3 ML NEBU. NEB SCH ×4 (09:05→19:38)
--- NOTE | 2018-12-05 10:23 | PDOC ---
PROGRESS NOTES Subjective Subjective Patient tolerating clear liquids.no flatus or BM reported. Objective Objective Vital Signs Date Time Temp Pulse Resp B/P (MAP) Pulse Ox O2 Delivery O2 Flow Rate FiO2 12/05/18 09:05 Nasal Cannula 3.0 12/05/18 07:21 97 12/05/18 07:00 98.4 82 16 114/78 (90) 98.4 Intake and Output 12/05/18 07:00 Intake Total 540 ml Output Total 975 ml Balance -435 ml Intake Oral 540 ml Output Urine Total 975 ml Physical Exam Abdomen: Other (minimal BS, abd soft) Heart: Regular rate Extremities: Other (1+ edema) General: Alert Lungs: Clear to auscultation Assessment Assessment Problems Medical Problems: (1) Pneumonia Status: Acute SBO esophagitis possible GI bleed aspiration pneumonia anemia hyperglycemia CAD old compression fractures of spine contusion left eye from recent fall Hx of afib Pulm Fibrosis Severe protein malnutrition CHF-improved + blood Clx on iv antibx Plan Plan of Care Change to PO meds Clear Liq today Restart/Continue TPN continue Pulm Care Proceed with PT/OT Possible transfer to SNU with TPN Consider surgery if recurrent SBO and after 2weeks of treatment for PNA Comment Review of Relevant I have reviewed the following items sherine (where applicable) has been applied. Labs Laboratory Tests Test 12/03/18 11:36 12/03/18 15:56 12/03/18 20:18 12/04/18 05:30 Glucose (Fingerstick) 171 mg/dL (70-99) 169 mg/dL (70-99) 219 mg/dL (70-99) 167 mg/dL (70-99) Test 12/04/18 07:30 12/04/18 11:44 12/04/18 16:57 12/04/18 20:34 Sodium Level 139 mmol/L (136-145) Potassium Level 4.3 mmol/L (3.5-5.1) Chloride Level 100 mmol/L (98-107) Carbon Dioxide Level 34 mmol/L (21-32) Anion Gap 5 (6-14) Blood Urea Nitrogen 19 mg/dL (8-26) Creatinine 0.6 mg/dL (0.7-1.3) Estimated GFR (Cockcroft-Gault) 131.0 Glucose Level 198 mg/dL (70-99) Calcium Level 8.7 mg/dL (8.5-10.1) Phosphorus Level 2.6 mg/dL (2.6-4.7) Magnesium Level 2.1 mg/dL (1.8-2.4) Glucose (Fingerstick) 251 mg/dL (70-99) 176 mg/dL (70-99) 262 mg/dL (70-99) Test 12/05/18 06:00 White Blood Count 10.0 x10^3/uL (4.0-11.0) Red Blood Count 3.21 x10^6/uL (4.30-5.70) Hemoglobin 10.0 g/dL (13.0-17.5) Hematocrit 30.4 % (39.0-53.0) Mean Corpuscular Volume 95 fL (79-100) Mean Corpuscular Hemoglobin 31 pg (25-35) Mean Corpuscular Hemoglobin Concent 33 g/dL (31-37) Red Cell Distribution Width 15.8 % (11.5-14.5) Platelet Count 245 x10^3/uL (140-400) Neutrophils (%) (Auto) 89 % (31-73) Lymphocytes (%) (Auto) 6 % (24-48) Monocytes (%) (Auto) 4 % (0-9) Eosinophils (%) (Auto) 0 % (0-3) Basophils (%) (Auto) 0 % (0-3) Neutrophils # (Auto) 8.9 x10^3uL (1.8-7.7) Lymphocytes # (Auto) 0.6 x10^3/uL (1.0-4.8) Monocytes # (Auto) 0.4 x10^3/uL (0.0-1.1) Eosinophils # (Auto) 0.0 x10^3/uL (0.0-0.7) Basophils # (Auto) 0.0 x10^3/uL (0.0-0.2) Sodium Level 135 mmol/L (136-145) Potassium Level 3.9 mmol/L (3.5-5.1) Chloride Level 99 mmol/L (98-107) Carbon Dioxide Level 30 mmol/L (21-32) Anion Gap 6 (6-14) Blood Urea Nitrogen 16 mg/dL (8-26) Creatinine 0.6 mg/dL (0.7-1.3) Estimated GFR (Cockcroft-Gault) 131.0 Glucose Level 106 mg/dL (70-99) Calcium Level 8.5 mg/dL (8.5-10.1) Laboratory Tests Test 12/04/18 11:44 12/04/18 16:57 12/04/18 20:34 12/05/18 06:00 Glucose (Fingerstick) 251 mg/dL (70-99) 176 mg/dL (70-99) 262 mg/dL (70-99) White Blood Count 10.0 x10^3/uL (4.0-11.0) Red Blood Count 3.21 x10^6/uL (4.30-5.70) Hemoglobin 10.0 g/dL (13.0-17.5) Hematocrit 30.4 % (39.0-53.0) Mean Corpuscular Volume 95 fL (79-100) Mean Corpuscular Hemoglobin 31 pg (25-35) Mean Corpuscular Hemoglobin Concent 33 g/dL (31-37) Red Cell Distribution Width 15.8 % (11.5-14.5) Platelet Count 245 x10^3/uL (140-400) Neutrophils (%) (Auto) 89 % (31-73) Lymphocytes (%) (Auto) 6 % (24-48) Monocytes (%) (Auto) 4 % (0-9) Eosinophils (%) (Auto) 0 % (0-3) Basophils (%) (Auto) 0 % (0-3) Neutrophils # (Auto) 8.9 x10^3uL (1.8-7.7) Lymphocytes # (Auto) 0.6 x10^3/uL (1.0-4.8) Monocytes # (Auto) 0.4 x10^3/uL (0.0-1.1) Eosinophils # (Auto) 0.0 x10^3/uL (0.0-0.7) Basophils # (Auto) 0.0 x10^3/uL (0.0-0.2) Sodium Level 135 mmol/L (136-145) Potassium Level 3.9 mmol/L (3.5-5.1) Chloride Level 99 mmol/L (98-107) Carbon Dioxide Level 30 mmol/L (21-32) Anion Gap 6 (6-14) Blood Urea Nitrogen 16 mg/dL (8-26) Creatinine 0.6 mg/dL (0.7-1.3) Estimated GFR (Cockcroft-Gault) 131.0 Glucose Level 106 mg/dL (70-99) Calcium Level 8.5 mg/dL (8.5-10.1) Microbiology 11/24/18 Blood Culture - Final, Complete 11/24/18 Blood Culture Result 1 (ATA) - Final, Complete 11/24/18 Antimicrobic Susceptibility - Final, Complete Medications Current Medications Fentanyl Citrate (Fentanyl 2ml Vial) 50 mcg 1X ONCE IV Last administered on 11/24/18at 03:45; Start 11/24/18 at 03:15; Stop 11/24/18 at 03:18; Status DC Sodium Chloride 1,000 ml @ 1,000 mls/hr 1X ONCE IV Last administered on 11/24/18at 03:45; Start 11/24/18 at 03:15; Stop 11/24/18 at 04:14; Status DC Ondansetron HCl (Zofran) 4 mg 1X ONCE IV Last administered on 11/24/18at 03:45; Start 11/24/18 at 03:15; Stop 11/24/18 at 03:18; Status DC Iohexol (Omnipaque 300 Mg/ml) 75 ml 1X ONCE IV Last administered on 11/24/18at 04:30; Start 11/24/18 at 03:45; Stop 11/24/18 at 03:46; Status DC Info (CONTRAST GIVEN -- Rx MONITORING) 1 each PRN DAILY PRN MC SEE COMMENTS; Start 11/24/18 at 03:45; Stop 11/26/18 at 03:44; Status DC Benzocaine (Hurricaine One) 1 spray 1X ONCE MM ; Start 11/24/18 at 05:15; Stop 11/24/18 at 05:16; Status DC Morphine Sulfate (Morphine Sulfate) 4 mg 1X ONCE IV Last administered on 11/24/18at 06:03; Start 11/24/18 at 06:00; Stop 11/24/18 at 06:01; Status DC Sodium Chloride 1,000 ml @ 1,000 mls/hr 1X ONCE IV Last administered on 11/24/18at 06:03; Start 11/24/18 at 06:00; Stop 11/24/18 at 06:59; Status DC Morphine Sulfate (Morphine Sulfate) 4 mg PRN Q2HR PRN IV PAIN Last administered on 12/04/18at 05:13; Start 11/24/18 at 06:00 Sodium Chloride 1,000 ml @ 125 mls/hr 1X ONCE IV Last administered on 11/24/18at 08:10; Start 11/24/18 at 06:00; Stop 11/24/18 at 13:59; Status DC Ondansetron HCl (Zofran) 4 mg PRN Q6HRS PRN IV NAUSEA/VOMITING; Start 11/24/18 at 06:00 Piperacillin Sod/ Tazobactam Sod (Zosyn Per Pharmacy) 1 each PRN DAILY PRN MC SEE COMMENTS; Start 11/24/18 at 06:00; Stop 12/04/18 at 07:10; Status DC Piperacillin Sod/ Tazobactam Sod 3.375 gm/Sodium Chloride 50 ml @ 100 mls/hr 1X ONCE IV Last administered on 11/24/18at 06:53; Start 11/24/18 at 06:15; Stop 11/24/18 at 06:44; Status DC Piperacillin Sod/ Tazobactam Sod 3.375 gm/Sodium Chloride 50 ml @ 100 mls/hr Q6HRS IV Last administered on 12/04/18at 05:03; Start 11/24/18 at 12:00; Stop 12/04/18 at 07:10; Status DC Pantoprazole Sodium (PROTONIX VIAL for IV PUSH) 40 mg DAILYAC IVP Last administered on 11/25/18at 09:04; Start 11/24/18 at 11:30; Stop 11/25/18 at 11:36; Status DC Insulin Human Lispro (HumaLOG) 0-5 UNITS TIDWMEALS SQ Last administered on 12/02/18at 09:11; Start 11/24/18 at 12:00; Stop 12/02/18 at 11:09; Status DC Dextrose (Dextrose 50%-Water Syringe) 12.5 gm PRN Q15MIN PRN IV SEE COMMENTS; Start 11/24/18 at 09:45 Amino Acids/ Glycerin/ Electrolytes 1,000 ml @ 50 mls/hr Q20H IV Last administered on 4/29/19at 20:24; Start 11/24/18 at 09:45; Stop 11/30/18 at 21:00; Status DC Budesonide (Pulmicort) 0.5 mg RTBID NEB Last administered on 12/05/18 08:00; Start 11/24/18 at 10:00 Albuterol/ Ipratropium (Duoneb) 3 ml RTQID NEB Last administered on 12/05/18 09:05; Start 11/24/18 at 12:00 Furosemide (Lasix) 40 mg 1X ONCE IVP Last administered on 11/25/18 04:44; Start 11/25/18 at 05:00; Stop 11/25/18 at 05:01; Status DC Albuterol Sulfate (Ventolin Neb Soln) 2.5 mg PRN Q6HRS PRN NEB SHORTNESS OF BREATH Last administered on 11/28/18 03:57; Start 11/25/18 at 04:45 Pantoprazole Sodium (PROTONIX VIAL for IV PUSH) 40 mg BIDAC IVP Last administered on 12/02/18 06:17; Start 11/25/18 at 16:30; Stop 12/02/18 at 15:46; Status DC Potassium Chloride/Water 100 ml @ 100 mls/hr Q1H IV Last administered on 11/25/18 16:26; Start 11/25/18 at 13:00; Stop 11/25/18 at 16:59; Status DC Furosemide (Lasix) 20 mg 1X ONCE IVP Last administered on 11/26/18 00:34; Start 11/26/18 at 01:00; Stop 11/26/18 at 01:01; Status DC Micafungin Sodium 100 mg/Dextrose 100 ml @ 100 mls/hr Q24H IV Last administered on 11/30/18 09:14; Start 11/26/18 at 09:00; Stop 11/30/18 at 14:12; Status DC Furosemide (Lasix) 40 mg 1X ONCE IVP Last administered on 11/26/18at 10:33; Start 11/26/18 at 09:15; Stop 11/26/18 at 09:16; Status DC Albumin Human 100 ml @ 100 mls/hr 1X ONCE IV Last administered on 11/26/18at 10:34; Start 11/26/18 at 09:15; Stop 11/26/18 at 10:14; Status DC Metoprolol Tartrate (Lopressor Vial) 5 mg PRN Q6HRS PRN IVP HYPERTENSION, SEE COMMENTS; Start 11/26/18 at 12:00; Stop 11/26/18 at 14:22; Status DC Metoprolol Tartrate (Lopressor Vial) 5 mg Q6HRS IVP Last administered on 12/04/18at 17:39; Start 11/26/18 at 16:00 Furosemide (Lasix) 40 mg DAILY IVP Last administered on 12/03/18at 08:47; Start 11/27/18 at 09:00; Stop 12/04/18 at 07:10; Status DC Ondansetron HCl (Zofran) 4 mg PRN Q6HRS PRN IV NAUSEA/VOMITING; Start 11/29/18 at 07:00; Stop 11/29/18 at 19:00; Status DC Fentanyl Citrate (Fentanyl 2ml Vial) 25 mcg PRN Q5MIN PRN IV MILD PAIN; Start 11/29/18 at 07:00; Stop 11/29/18 at 19:00; Status DC Fentanyl Citrate (Fentanyl 2ml Vial) 50 mcg PRN Q5MIN PRN IV MODERATE TO SEVERE PAIN; Start 11/29/18 at 07:00; Stop 11/29/18 at 19:00; Status DC Morphine Sulfate (Morphine Sulfate) 1 mg PRN Q10MIN PRN IV SEVERE PAIN; Start 11/29/18 at 07:00; Stop 11/29/18 at 19:00; Status DC Ringer's Solution 1,000 ml @ 30 mls/hr Q24H IV ; Start 11/29/18 at 07:00; Stop 11/29/18 at 18:59; Status DC Lidocaine HCl (Xylocaine-Mpf 1% 2ml Vial) 2 ml PRN 1X PRN ID PRIOR TO IV START; Start 11/29/18 at 07:00; Stop 11/29/18 at 19:00; Status DC Hydromorphone HCl (Dilaudid) 0.5 mg PRN Q10MIN PRN IV SEV PAIN, Second choice; Start 11/29/18 at 07:00; Stop 11/29/18 at 19:00; Status DC Prochlorperazine Edisylate (Compazine) 5 mg PACU PRN PRN IV NAUSEA, MRX1; Start 11/29/18 at 07:00; Stop 11/29/18 at 19:00; Status DC Levothyroxine Sodium 50 mcg/ Sodium Chloride 5 ml @ 100 mls/hr Q3DAYS IVP Last administered on 12/01/18at 08:49; Start 12/01/18 at 09:00; Stop 12/04/18 at 07:10; Status DC Potassium Chloride/Water 100 ml @ 100 mls/hr Q1H IV Last administered on 11/27/18at 16:39; Start 11/27/18 at 12:30; Stop 11/27/18 at 16:29; Status DC Methylprednisolone Sodium Succinate (SOLU-Medrol 125MG VIAL) 80 mg Q8HRS IV Last administered on 12/01/18at 12:35; Start 11/28/18 at 17:00; Stop 12/01/18 at 17:42; Status DC Potassium Chloride/Water 100 ml @ 100 mls/hr Q1H IV Last administered on 11/29/18at 14:30; Start 11/29/18 at 07:00; Stop 11/29/18 at 10:59; Status DC Info (Tpn Per Pharmacy) 1 each PRN DAILY PRN MC SEE COMMENTS Last administered on 12/03/18at 13:01; Start 11/30/18 at 14:45; Stop 12/04/18 at 07:10; Status DC Sodium Chloride 90 meq/Potassium Chloride 50 meq/ Potassium Phosphate 13.6 mmol/Magnesium Sulfate 10 meq/ Calcium Gluconate 10 meq/ Multivitamins 10 ml/Chromium/ Copper/Manganese/ Seleni/Zn 1 ml/ Total Parenteral Nutrition/Amino Acids/Dextrose/ Fat Emulsion Intravenous 1,512 ml @ 63 mls/hr TPN CONT IV Last administered on 11/30/18at 21:11; Start 11/30/18 at 22:00; Stop 12/01/18 at 21:59; Status DC Potassium Phosphate 15 mmol/ Sodium Chloride 255 ml @ 85 mls/hr 1X ONCE IV Last administered on 12/01/18at 15:09; Start 12/01/18 at 15:00; Stop 12/01/18 at 17:59; Status DC Sodium Chloride 90 meq/Potassium Chloride 70 meq/ Potassium Phosphate 13.6 mmol/Magnesium Sulfate 10 meq/ Calcium Gluconate 10 meq/ Multivitamins 10 ml/Chromium/ Copper/Manganese/ Seleni/Zn 1 ml/ Total Parenteral Nutrition/Amino Acids/Dextrose/ Fat Emulsion Intravenous 1,512 ml @ 63 mls/hr TPN CONT IV Last administered on 12/01/18at 21:40; Start 12/01/18 at 22:00; Stop 12/02/18 at 21:59; Status DC Methylprednisolone Sodium Succinate (SOLU-Medrol 40MG VIAL) 80 mg BID IV Last administered on 12/02/18at 09:06; Start 12/01/18 at 21:00; Stop 12/02/18 at 11:09; Status DC Methylprednisolone Sodium Succinate (SOLU-Medrol 40MG VIAL) 40 mg DAILY IV Last administered on 12/03/18at 08:48; Start 12/03/18 at 09:00; Stop 12/04/18 at 07:10; Status DC Insulin Human Lispro (HumaLOG) 0-12 UNITS QIDACHS SQ Last administered on 12/04/18at 21:41; Start 12/02/18 at 11:30 Potassium Phosphate 15 mmol/ Sodium Chloride 255 ml @ 85 mls/hr 1X ONCE IV Last administered on 12/02/18at 14:49; Start 12/02/18 at 15:00; Stop 12/02/18 at 17:59; Status DC Sodium Chloride 90 meq/Potassium Chloride 70 meq/ Potassium Phosphate 13.6 mmol/Magnesium Sulfate 10 meq/ Calcium Gluconate 10 meq/ Multivitamins 10 ml/Chromium/ Copper/Manganese/ Seleni/Zn 1 ml/ Total Parenteral Nutrition/Amino Acids/Dextrose/ Fat Emulsion Intravenous 1,512 ml @ 63 mls/hr TPN CONT IV Last administered on 12/02/18at 20:50; Start 12/02/18 at 22:00; Stop 12/03/18 at 21:59; Status DC Famotidine (Pepcid Vial) 20 mg BID IVP Last administered on 12/03/18at 21:01; Start 12/02/18 at 21:00; Stop 12/04/18 at 07:10; Status DC Aspirin (Aspirin) 150 mg DAILY [place] Last administered on 12/05/18at 08:26; Start 12/03/18 at 10:30 Potassium Phosphate 15 mmol/ Sodium Chloride 255 ml @ 85 mls/hr 1X ONCE IV Last administered on 12/03/18at 13:16; Start 12/03/18 at 13:00; Stop 12/03/18 at 15:59; Status DC Sodium Chloride 90 meq/Potassium Chloride 70 meq/ Potassium Phosphate 18 mmol/ Magnesium Sulfate 10 meq/Calcium Gluconate 10 meq/ Multivitamins 10 ml/Chromium/ Copper/Manganese/ Seleni/Zn 1 ml/ Total Parenteral Nutrition/Amino Acids/Dextrose/ Fat Emulsion Intravenous 1,512 ml @ 63 mls/hr TPN CONT IV Last administered on 12/03/18at 21:02; Start 12/03/18 at 22:00; Stop 12/04/18 at 21:59; Status DC Acetaminophen/ Hydrocodone Bitart (Lortab 7.5/325) 1 tab 1X ONCE PO ; Start 12/04/18 at 07:15; Stop 12/04/18 at 07:16; Status Cancel Acetaminophen/ Hydrocodone Bitart (Lortab 7.5/325) 2 tab 1X ONCE PO ; Start 12/04/18 at 07:15; Stop 12/04/18 at 07:16; Status Cancel Amoxicillin/ Clavulanate Potassium (Augmentin 875/ 125mg) 1 tab BID PO Last administered on 12/04/18at 07:55; Start 12/04/18 at 09:00; Stop 12/04/18 at 14:31; Status DC Levothyroxine Sodium (Synthroid) 50 mcg DAILY06 PO Last administered on 12/05/18at 06:11; Start 12/04/18 at 07:30 Pantoprazole Sodium (Protonix) 40 mg DAILYAC PO Last administered on 12/05/18at 08:26; Start 12/04/18 at 07:30 Furosemide (Lasix) 40 mg DAILY PO ; Start 12/04/18 at 09:00 Prednisone (Prednisone) 20 mg 1X ONCE PO Last administered on 12/04/18at 07:55; Start 12/04/18 at 07:15; Stop 12/04/18 at 07:16; Status DC Acetaminophen/ Hydrocodone Bitart (Lortab 7.5/325) 1 tab PRN Q4HRS PRN PO MODERATE PAIN; Start 12/04/18 at 07:30 Acetaminophen/ Hydrocodone Bitart (Lortab 7.5/325) 2 tab PRN Q4HRS PRN PO SEVERE PAIN Last administered on 12/05/18at 07:21; Start 12/04/18 at 07:30 Lactobacillus Rhamnosus (Culturelle) 1 cap BID PO Last administered on 12/05/18at 08:26; Start 12/04/18 at 21:00 Piperacillin Sod/ Tazobactam Sod 3.375 gm/Sodium Chloride 50 ml @ 100 mls/hr Q6HRS IV Last administered on 12/05/18at 06:00; Start 12/04/18 at 15:00 Active Scripts Active Sertraline Hcl 25 Mg Tablet 50 Mg PO QHS 30 Days Magnesium Chloride 70 Mg Tablet.dr 64 Mg PO DAILY 30 Days Synthroid (Levothyroxine Sodium) 88 Mcg Tablet 88 Mcg PO DAILY06 30 Days Prednisone 20 Mg Tablet 20 Mg PO DAILY 30 Days Budesonide 0.5 Mg/2 Ml Ampul.neb 0.5 Mg NEB RTBID 30 Days Klor-Con 10 (Potassium Chloride) 10 Meq Tablet.er 1 Tab PO DAILY Lasix (Furosemide) 40 Mg Tablet 1 Tab PO DAILY Aspirin Ec (Aspirin) 81 Mg Tablet.dr 81 Mg PO DAILYWBKFT 30 Days Duoneb 0.5-3(2.5) Mg/3 Ml (Albuterol/Ipratropium) 3 Ml Ampul.neb 3 Ml NEB RTQID 30 Days Diltiazem 24HR Cd (Diltiazem Hcl) 120 Mg Cap.er.24h 120 Mg PO DAILY 30 Days Reported Hydrocodone-Apap 7.5-325 (Hydrocodone Bit/Acetaminophen) 1 Tab Tablet 1 Tab PO PRN Q6HRS PRN Omeprazole 40 Mg Capsule. 40 Mg PO DAILY Vitals/I & O Vital Sign - Last 24 Hours 12/04/18 12/04/18 12/04/18 12/04/18 11:00 11:50 12:26 16:10 Temp 97.8 97.8 Pulse 78 78 Resp 18 B/P (MAP) 141/82 (101) 141/82 Pulse Ox 98 O2 Delivery Nasal Cannula Nasal Cannula Nasal Cannula O2 Flow Rate 4.0 3.0 3.0 12/04/18 12/04/18 12/04/18 12/04/18 16:34 17:34 17:39 19:30 Temp 97.8 97.8 Pulse 78 70 Resp 18 18 22 B/P (MAP) 141/82 132/69 (90) Pulse Ox 98 98 93 O2 Delivery Nasal Cannula Nasal Cannula O2 Flow Rate 3.0 3.0 12/04/18 12/04/18 12/04/18 12/04/18 20:00 21:02 21:12 23:19 Pulse 74 B/P (MAP) 118/74 Pulse Ox 95 95 O2 Delivery Nasal Cannula Nasal Cannula Nasal Cannula O2 Flow Rate 3.0 3.0 3.0 12/04/18 12/05/18 12/05/18 12/05/18 23:30 03:30 06:00 07:00 Temp 97.7 98.2 98.4 97.7 98.2 98.4 Pulse 74 76 80 82 Resp 22 20 16 B/P (MAP) 118/77 (91) 141/84 (103) 131/78 114/78 (90) Pulse Ox 92 97 95 O2 Delivery Nasal Cannula Nasal Cannula Nasal Cannula O2 Flow Rate 3.0 2.0 3.0 12/05/18 12/05/18 12/05/18 07:21 08:21 09:05 Pulse Ox 97 O2 Delivery Nasal Cannula Nasal Cannula Nasal Cannula O2 Flow Rate 3.0 3.0 3.0 Intake and Output 12/04/18 12/04/18 12/05/18 15:00 23:00 07:00 Intake Total 200 ml 240 ml 100 ml Output Total 200 ml 400 ml 375 ml Balance 0 ml -160 ml -275 ml Nutrition Consultation Dietary Evaluation: Recommendations by RD: PPN/TPN Comments: continue TPN until diet advancement and tolerated Expected Outcomes/Goals: diet adv/ tolerance Malnutrition Findings: Body Fat Depletion (Non Severe: Mild Depletion Weight Status: Underweight LOURDES POLLOCK MD December 05, 2018 10:23
--- NOTE | 2018-12-05 11:03 | PDOC ---
Infectious Disease Note Subjective Subjective Still not feeling well this morning Says he's weak, not able to walk, just wobbles, afraid he'll fall Tolerating very small amount of clear liquids Denies pain/N/V No BM or flatus O2 3L No fevers/chills ROS ROS per HPI Vital Sign Vital Signs Vital Signs Date Time Temp Pulse Resp B/P (MAP) Pulse Ox O2 Delivery O2 Flow Rate FiO2 12/05/18 09:05 Nasal Cannula 3.0 12/05/18 07:21 97 12/05/18 07:00 98.4 82 16 114/78 (90) 98.4 Physical Exam PHYSICAL EXAM GENERAL: Propped up in bed, alert, NAD HEENT: Oral cavity and pharynx dry. NECK: Supple, no JVD. LUNGS: Improved aeration HEART: S1, S2. ABDOMEN: ND, soft, NT BS present, hypoactive EXTREMITIES: Without clubbing or cyanosis. 1+ edema lower extremities, bilaterally L>R NEUROLOGIC: Alert, answering questions appropriately SKIN: Without generalized signs of rash. RUE-PICC (11/30) clean Labs Lab Laboratory Tests Test 12/04/18 11:44 12/04/18 16:57 12/04/18 20:34 12/05/18 06:00 Glucose (Fingerstick) 251 mg/dL (70-99) 176 mg/dL (70-99) 262 mg/dL (70-99) White Blood Count 10.0 x10^3/uL (4.0-11.0) Red Blood Count 3.21 x10^6/uL (4.30-5.70) Hemoglobin 10.0 g/dL (13.0-17.5) Hematocrit 30.4 % (39.0-53.0) Mean Corpuscular Volume 95 fL (79-100) Mean Corpuscular Hemoglobin 31 pg (25-35) Mean Corpuscular Hemoglobin Concent 33 g/dL (31-37) Red Cell Distribution Width 15.8 % (11.5-14.5) Platelet Count 245 x10^3/uL (140-400) Neutrophils (%) (Auto) 89 % (31-73) Lymphocytes (%) (Auto) 6 % (24-48) Monocytes (%) (Auto) 4 % (0-9) Eosinophils (%) (Auto) 0 % (0-3) Basophils (%) (Auto) 0 % (0-3) Neutrophils # (Auto) 8.9 x10^3uL (1.8-7.7) Lymphocytes # (Auto) 0.6 x10^3/uL (1.0-4.8) Monocytes # (Auto) 0.4 x10^3/uL (0.0-1.1) Eosinophils # (Auto) 0.0 x10^3/uL (0.0-0.7) Basophils # (Auto) 0.0 x10^3/uL (0.0-0.2) Sodium Level 135 mmol/L (136-145) Potassium Level 3.9 mmol/L (3.5-5.1) Chloride Level 99 mmol/L (98-107) Carbon Dioxide Level 30 mmol/L (21-32) Anion Gap 6 (6-14) Blood Urea Nitrogen 16 mg/dL (8-26) Creatinine 0.6 mg/dL (0.7-1.3) Estimated GFR (Cockcroft-Gault) 131.0 Glucose Level 106 mg/dL (70-99) Calcium Level 8.5 mg/dL (8.5-10.1) Micro BLOOD CULTURE Final SMALL GRAM NEGATIVE COCCOBACILLI IN 1 OF 4 BOTTLES (ANAEROBIC BOTTLE) TWO SETS DRAWN. BLD CULT RESULT 1 Preliminary Streptococcus species Objective Assessment Bacteremia from 11/24 - (gram neg coccobacilli in 1/4 bottles) Strep salivarius SBO Leukocytosis - better ? thrush AFib CHF Pulmonary fibrosis Plan Plan of Care Continue Zosyn (restarted 12/04) .pt was on a day of augmentin , was on zosyn prior Recent steroids Monitor labs Oral care Maintain aspiration precautions Supportive care PT/OT Pt seen and examined Labs and micro data reviewed D/W RN Agree with above A/P per OBED SUTTON APRN December 05, 2018 11:03 CLARENCE MCKEON MD December 05, 2018 15:01
[2018-12-05 11:11] LABS: % BANDS 7 % (0-9); % LYMPHS 4 % (24-48); % METAS 1 % (0-0); % MONOS 3 % (0-10); % SEGS 85 % (35-66); PLT ESTIMATE ADEQUATE (ADEQUATE)
[2018-12-05 11:12] LABS: ANISOCYTOSIS SLIGHT; OVALOCYTES FEW; POLYCHROMASIA SLIGHT
[2018-12-05 11:13] LABS: TEAR DROP CELLS OCC
--- NOTE | 2018-12-05 11:43 | PDOC ---
PULMONARY PROGRESS NOTES Subjective STILL VERY WEAK/ MILDLY BETTER Vitals Vital Signs Date Time Temp Pulse Resp B/P (MAP) Pulse Ox O2 Delivery O2 Flow Rate FiO2 12/05/18 11:00 97.9 74 16 88/57 (67) 96 Nasal Cannula 3.0 97.9 ROS: No Nausea, No Chest Pain, No Increase Cough General: Alert, No acute distress HEENT: Other Lungs: Other (decrease bases) Cardiovascular: S1, S2 Abdomen: Soft, Non-tender, Other Neuro Exam: Alert Extremities: No Edema, Other Labs Laboratory Tests Test 12/03/18 15:56 12/03/18 20:18 12/04/18 05:30 12/04/18 07:30 Glucose (Fingerstick) 169 mg/dL (70-99) 219 mg/dL (70-99) 167 mg/dL (70-99) Sodium Level 139 mmol/L (136-145) Potassium Level 4.3 mmol/L (3.5-5.1) Chloride Level 100 mmol/L (98-107) Carbon Dioxide Level 34 mmol/L (21-32) Anion Gap 5 (6-14) Blood Urea Nitrogen 19 mg/dL (8-26) Creatinine 0.6 mg/dL (0.7-1.3) Estimated GFR (Cockcroft-Gault) 131.0 Glucose Level 198 mg/dL (70-99) Calcium Level 8.7 mg/dL (8.5-10.1) Phosphorus Level 2.6 mg/dL (2.6-4.7) Magnesium Level 2.1 mg/dL (1.8-2.4) Test 12/04/18 11:44 12/04/18 16:57 12/04/18 20:34 12/05/18 06:00 Glucose (Fingerstick) 251 mg/dL (70-99) 176 mg/dL (70-99) 262 mg/dL (70-99) White Blood Count 10.0 x10^3/uL (4.0-11.0) Red Blood Count 3.21 x10^6/uL (4.30-5.70) Hemoglobin 10.0 g/dL (13.0-17.5) Hematocrit 30.4 % (39.0-53.0) Mean Corpuscular Volume 95 fL (79-100) Mean Corpuscular Hemoglobin 31 pg (25-35) Mean Corpuscular Hemoglobin Concent 33 g/dL (31-37) Red Cell Distribution Width 15.8 % (11.5-14.5) Platelet Count 245 x10^3/uL (140-400) Neutrophils (%) (Auto) 89 % (31-73) Lymphocytes (%) (Auto) 6 % (24-48) Monocytes (%) (Auto) 4 % (0-9) Eosinophils (%) (Auto) 0 % (0-3) Basophils (%) (Auto) 0 % (0-3) Neutrophils # (Auto) 8.9 x10^3uL (1.8-7.7) Lymphocytes # (Auto) 0.6 x10^3/uL (1.0-4.8) Monocytes # (Auto) 0.4 x10^3/uL (0.0-1.1) Eosinophils # (Auto) 0.0 x10^3/uL (0.0-0.7) Basophils # (Auto) 0.0 x10^3/uL (0.0-0.2) Segmented Neutrophils % 85 % (35-66) Band Neutrophils % 7 % (0-9) Lymphocytes % 4 % (24-48) Monocytes % 3 % (0-10) Metamyelocytes % 1 % (0-0) Platelet Estimate Adequate (ADEQUATE) Polychromasia Slight Anisocytosis Slight Tear Drop Cells Occ Ovalocytes Few Sodium Level 135 mmol/L (136-145) Potassium Level 3.9 mmol/L (3.5-5.1) Chloride Level 99 mmol/L (98-107) Carbon Dioxide Level 30 mmol/L (21-32) Anion Gap 6 (6-14) Blood Urea Nitrogen 16 mg/dL (8-26) Creatinine 0.6 mg/dL (0.7-1.3) Estimated GFR (Cockcroft-Gault) 131.0 Glucose Level 106 mg/dL (70-99) Calcium Level 8.5 mg/dL (8.5-10.1) Laboratory Tests Test 12/04/18 11:44 12/04/18 16:57 12/04/18 20:34 12/05/18 06:00 Glucose (Fingerstick) 251 mg/dL (70-99) 176 mg/dL (70-99) 262 mg/dL (70-99) White Blood Count 10.0 x10^3/uL (4.0-11.0) Red Blood Count 3.21 x10^6/uL (4.30-5.70) Hemoglobin 10.0 g/dL (13.0-17.5) Hematocrit 30.4 % (39.0-53.0) Mean Corpuscular Volume 95 fL (79-100) Mean Corpuscular Hemoglobin 31 pg (25-35) Mean Corpuscular Hemoglobin Concent 33 g/dL (31-37) Red Cell Distribution Width 15.8 % (11.5-14.5) Platelet Count 245 x10^3/uL (140-400) Neutrophils (%) (Auto) 89 % (31-73) Lymphocytes (%) (Auto) 6 % (24-48) Monocytes (%) (Auto) 4 % (0-9) Eosinophils (%) (Auto) 0 % (0-3) Basophils (%) (Auto) 0 % (0-3) Neutrophils # (Auto) 8.9 x10^3uL (1.8-7.7) Lymphocytes # (Auto) 0.6 x10^3/uL (1.0-4.8) Monocytes # (Auto) 0.4 x10^3/uL (0.0-1.1) Eosinophils # (Auto) 0.0 x10^3/uL (0.0-0.7) Basophils # (Auto) 0.0 x10^3/uL (0.0-0.2) Segmented Neutrophils % 85 % (35-66) Band Neutrophils % 7 % (0-9) Lymphocytes % 4 % (24-48) Monocytes % 3 % (0-10) Metamyelocytes % 1 % (0-0) Platelet Estimate Adequate (ADEQUATE) Polychromasia Slight Anisocytosis Slight Tear Drop Cells Occ Ovalocytes Few Sodium Level 135 mmol/L (136-145) Potassium Level 3.9 mmol/L (3.5-5.1) Chloride Level 99 mmol/L (98-107) Carbon Dioxide Level 30 mmol/L (21-32) Anion Gap 6 (6-14) Blood Urea Nitrogen 16 mg/dL (8-26) Creatinine 0.6 mg/dL (0.7-1.3) Estimated GFR (Cockcroft-Gault) 131.0 Glucose Level 106 mg/dL (70-99) Calcium Level 8.5 mg/dL (8.5-10.1) Medications Active Scripts Medications Dose Route/Sig Max Daily Dose Days Date Category Sertraline Hcl 25 Mg Tablet 50 Mg PO QHS 30 10/01/18 Rx Magnesium Chloride 70 Mg Tablet. 64 Mg PO DAILY 08/30/18 Rx Synthroid (Levothyroxine Sodium) 88 Mcg Tablet 88 Mcg PO DAILY06 08/30/18 Rx Prednisone 20 Mg Tablet 20 Mg PO DAILY 08/30/18 Rx Budesonide 0.5 Mg/2 Ml Ampul.neb 0.5 Mg NEB RTBID 08/30/18 Rx Hydrocodone-Apap 7.5-325 (Hydrocodone Bit/Acetaminophen) 1 Tab Tablet 1 Tab PO PRN Q6HRS PRN 08/26/18 Reported Omeprazole 40 Mg Capsule. 40 Mg PO DAILY 08/26/18 Reported Klor-Con 10 (Potassium Chloride) 10 Meq Tablet.er 1 Tab PO DAILY 07/16/18 Rx Lasix (Furosemide) 40 Mg Tablet 1 Tab PO DAILY 07/16/18 Rx Aspirin Ec (Aspirin) 81 Mg Tablet. 81 Mg PO DAILYWBKFT 07/16/18 Rx Duoneb 0.5-3(2.5) Mg/3 Ml (Albuterol/Ipratropium) 3 Ml Ampul.neb 3 Ml NEB RTQID 07/01/18 Rx Diltiazem 24HR Cd (Diltiazem Hcl) 120 Mg Cap.er.24h 120 Mg PO DAILY 07/01/18 Rx Comments BLOOD CULTURE LC Final Final report BLD CULT RESULT 1 Final Comment Streptococcus salivarius group ANTIMICROBIAL SUSCEPTIBILITY Final Comment S = Susceptible; I = Intermediate; R = Resistant P = Positive; N = Negative MICS are expressed in micrograms per mL Antibiotic RSLT#1 RSLT#2 RSLT#3 RSLT#4 Ceftriaxone S<=0.25 Chloramphenicol S =2 Clindamycin S<=0.06 Erythromycin R> 0.5 Penicillin S =0.12 Vancomycin S =0.5 Performed at: [facility], [place], [place] [id number] Senior Loan Officer: ANGELES Camargo MD, Phone: [phone] ct chest 1. Bibasilar lung consolidation changes likely pneumonia or infiltrates with underlying diffuse bibasilar reticular interstitial lung markings likely idiopathic pulmonary fibrosis. 2. Coronary artery calcifications. 3. Mild compression changes of T9, T10, T12 vertebral bodies. 4. Subcentimeter hypodensity identified in the right lobe of the liver, difficult to characterize similar to prior exam. Impression . IMPRESSION: 1. Acute hypoxemic respiratory failure. multi-factorial 2. Abnormal x-ray compatible with bilateral pulmonary infiltrates, suspect combination of, Pneumonia and acute lung injury from possible aspiration./ underlying severe honeycombing/ fibrosis ct chest 09/21, extensive basal fibrosis 3. Aspiration pneumonia. 4. Small-bowel obstruction. 5. Dysphagia. 6. Leukocytosis. 7. Bacteremia. 8. Atrial fibrillation. 9. [id number] heart failure. Plan . STILL WEAK/ MILDLY BETTER UP TO CHAIR CONTINUE SUPPORT FOLLOW SURGERY INPUT ANTIBX PT DIURESE STERNOIDS TAPER CT CHEST REVIEWED/ EXTENSIVE FIBROSIS/ BASAL PNEUMONIA/ WILL TAKE FEW WEEKS TO RECOVER AR HINES MD December 05, 2018 11:43
[2018-12-05] MEDS ORDERED: IV NORMAL SALINE 1000ML BAG 1,000 ML IV SCH (14:00)
--- NOTE | 2018-12-05 14:55 | PDOC ---
PROGRESS NOTES Subjective Subjective "not feeling very well", taking small amount of liquids, no stool or flatus Objective Objective Vital Signs Date Time Temp Pulse Resp B/P (MAP) Pulse Ox O2 Delivery O2 Flow Rate FiO2 12/05/18 13:48 Nasal Cannula 3.0 12/05/18 13:05 95 12/05/18 12:10 78 97/67 (77) 12/05/18 11:00 97.9 16 97.9 Intake and Output 12/05/18 06:59 Intake Total 540 ml Output Total 975 ml Balance -435 ml Intake Oral 540 ml Output Urine Total 975 ml Physical Exam Abdomen: Soft (mild abdominal pain with palpation) Heart: Regular rate Extremities: No clubbing, No cyanosis General: Alert Neuro: Normal speech Psych/Mental Status: Mental status NL Assessment Assessment Problems Medical Problems: (1) Pneumonia Status: Acute Plan Plan of Care Continue with clears at this time Comment Review of Relevant I have reviewed the following items sherine (where applicable) has been applied. Labs Laboratory Tests Test 12/03/18 15:56 12/03/18 20:18 12/04/18 05:30 12/04/18 07:30 Glucose (Fingerstick) 169 mg/dL (70-99) 219 mg/dL (70-99) 167 mg/dL (70-99) Sodium Level 139 mmol/L (136-145) Potassium Level 4.3 mmol/L (3.5-5.1) Chloride Level 100 mmol/L (98-107) Carbon Dioxide Level 34 mmol/L (21-32) Anion Gap 5 (6-14) Blood Urea Nitrogen 19 mg/dL (8-26) Creatinine 0.6 mg/dL (0.7-1.3) Estimated GFR (Cockcroft-Gault) 131.0 Glucose Level 198 mg/dL (70-99) Calcium Level 8.7 mg/dL (8.5-10.1) Phosphorus Level 2.6 mg/dL (2.6-4.7) Magnesium Level 2.1 mg/dL (1.8-2.4) Test 12/04/18 11:44 12/04/18 16:57 12/04/18 20:34 12/05/18 06:00 Glucose (Fingerstick) 251 mg/dL (70-99) 176 mg/dL (70-99) 262 mg/dL (70-99) White Blood Count 10.0 x10^3/uL (4.0-11.0) Red Blood Count 3.21 x10^6/uL (4.30-5.70) Hemoglobin 10.0 g/dL (13.0-17.5) Hematocrit 30.4 % (39.0-53.0) Mean Corpuscular Volume 95 fL (79-100) Mean Corpuscular Hemoglobin 31 pg (25-35) Mean Corpuscular Hemoglobin Concent 33 g/dL (31-37) Red Cell Distribution Width 15.8 % (11.5-14.5) Platelet Count 245 x10^3/uL (140-400) Neutrophils (%) (Auto) 89 % (31-73) Lymphocytes (%) (Auto) 6 % (24-48) Monocytes (%) (Auto) 4 % (0-9) Eosinophils (%) (Auto) 0 % (0-3) Basophils (%) (Auto) 0 % (0-3) Neutrophils # (Auto) 8.9 x10^3uL (1.8-7.7) Lymphocytes # (Auto) 0.6 x10^3/uL (1.0-4.8) Monocytes # (Auto) 0.4 x10^3/uL (0.0-1.1) Eosinophils # (Auto) 0.0 x10^3/uL (0.0-0.7) Basophils # (Auto) 0.0 x10^3/uL (0.0-0.2) Segmented Neutrophils % 85 % (35-66) Band Neutrophils % 7 % (0-9) Lymphocytes % 4 % (24-48) Monocytes % 3 % (0-10) Metamyelocytes % 1 % (0-0) Platelet Estimate Adequate (ADEQUATE) Polychromasia Slight Anisocytosis Slight Tear Drop Cells Occ Ovalocytes Few Sodium Level 135 mmol/L (136-145) Potassium Level 3.9 mmol/L (3.5-5.1) Chloride Level 99 mmol/L (98-107) Carbon Dioxide Level 30 mmol/L (21-32) Anion Gap 6 (6-14) Blood Urea Nitrogen 16 mg/dL (8-26) Creatinine 0.6 mg/dL (0.7-1.3) Estimated GFR (Cockcroft-Gault) 131.0 Glucose Level 106 mg/dL (70-99) Calcium Level 8.5 mg/dL (8.5-10.1) Test 12/05/18 14:23 Glucose (Fingerstick) 166 mg/dL (70-99) Laboratory Tests Test 12/04/18 16:57 12/04/18 20:34 12/05/18 06:00 12/05/18 14:23 Glucose (Fingerstick) 176 mg/dL (70-99) 262 mg/dL (70-99) 166 mg/dL (70-99) White Blood Count 10.0 x10^3/uL (4.0-11.0) Red Blood Count 3.21 x10^6/uL (4.30-5.70) Hemoglobin 10.0 g/dL (13.0-17.5) Hematocrit 30.4 % (39.0-53.0) Mean Corpuscular Volume 95 fL (79-100) Mean Corpuscular Hemoglobin 31 pg (25-35) Mean Corpuscular Hemoglobin Concent 33 g/dL (31-37) Red Cell Distribution Width 15.8 % (11.5-14.5) Platelet Count 245 x10^3/uL (140-400) Neutrophils (%) (Auto) 89 % (31-73) Lymphocytes (%) (Auto) 6 % (24-48) Monocytes (%) (Auto) 4 % (0-9) Eosinophils (%) (Auto) 0 % (0-3) Basophils (%) (Auto) 0 % (0-3) Neutrophils # (Auto) 8.9 x10^3uL (1.8-7.7) Lymphocytes # (Auto) 0.6 x10^3/uL (1.0-4.8) Monocytes # (Auto) 0.4 x10^3/uL (0.0-1.1) Eosinophils # (Auto) 0.0 x10^3/uL (0.0-0.7) Basophils # (Auto) 0.0 x10^3/uL (0.0-0.2) Segmented Neutrophils % 85 % (35-66) Band Neutrophils % 7 % (0-9) Lymphocytes % 4 % (24-48) Monocytes % 3 % (0-10) Metamyelocytes % 1 % (0-0) Platelet Estimate Adequate (ADEQUATE) Polychromasia Slight Anisocytosis Slight Tear Drop Cells Occ Ovalocytes Few Sodium Level 135 mmol/L (136-145) Potassium Level 3.9 mmol/L (3.5-5.1) Chloride Level 99 mmol/L (98-107) Carbon Dioxide Level 30 mmol/L (21-32) Anion Gap 6 (6-14) Blood Urea Nitrogen 16 mg/dL (8-26) Creatinine 0.6 mg/dL (0.7-1.3) Estimated GFR (Cockcroft-Gault) 131.0 Glucose Level 106 mg/dL (70-99) Calcium Level 8.5 mg/dL (8.5-10.1) Microbiology 11/24/18 Blood Culture - Final, Complete 11/24/18 Blood Culture Result 1 (ATA) - Final, Complete 11/24/18 Antimicrobic Susceptibility - Final, Complete Medications Current Medications Fentanyl Citrate (Fentanyl 2ml Vial) 50 mcg 1X ONCE IV Last administered on 11/24/18at 03:45; Start 11/24/18 at 03:15; Stop 11/24/18 at 03:18; Status DC Sodium Chloride 1,000 ml @ 1,000 mls/hr 1X ONCE IV Last administered on 11/24/18at 03:45; Start 11/24/18 at 03:15; Stop 11/24/18 at 04:14; Status DC Ondansetron HCl (Zofran) 4 mg 1X ONCE IV Last administered on 11/24/18at 03:45; Start 11/24/18 at 03:15; Stop 11/24/18 at 03:18; Status DC Iohexol (Omnipaque 300 Mg/ml) 75 ml 1X ONCE IV Last administered on 11/24/18at 04:30; Start 11/24/18 at 03:45; Stop 11/24/18 at 03:46; Status DC Info (CONTRAST GIVEN -- Rx MONITORING) 1 each PRN DAILY PRN MC SEE COMMENTS; Start 11/24/18 at 03:45; Stop 11/26/18 at 03:44; Status DC Benzocaine (Hurricaine One) 1 spray 1X ONCE MM ; Start 11/24/18 at 05:15; Stop 11/24/18 at 05:16; Status DC Morphine Sulfate (Morphine Sulfate) 4 mg 1X ONCE IV Last administered on 11/24/18 06:03; Start 11/24/18 at 06:00; Stop 11/24/18 at 06:01; Status DC Sodium Chloride 1,000 ml @ 1,000 mls/hr 1X ONCE IV Last administered on 11/24/18at 06:03; Start 11/24/18 at 06:00; Stop 11/24/18 at 06:59; Status DC Morphine Sulfate (Morphine Sulfate) 4 mg PRN Q2HR PRN IV PAIN Last administered on 12/04/18at 05:13; Start 11/24/18 at 06:00 Sodium Chloride 1,000 ml @ 125 mls/hr 1X ONCE IV Last administered on 11/24/18at 08:10; Start 11/24/18 at 06:00; Stop 11/24/18 at 13:59; Status DC Ondansetron HCl (Zofran) 4 mg PRN Q6HRS PRN IV NAUSEA/VOMITING; Start 11/24/18 at 06:00 Piperacillin Sod/ Tazobactam Sod (Zosyn Per Pharmacy) 1 each PRN DAILY PRN MC SEE COMMENTS; Start 11/24/18 at 06:00; Stop 12/04/18 at 07:10; Status DC Piperacillin Sod/ Tazobactam Sod 3.375 gm/Sodium Chloride 50 ml @ 100 mls/hr 1X ONCE IV Last administered on 11/24/18at 06:53; Start 11/24/18 at 06:15; Stop 11/24/18 at 06:44; Status DC Piperacillin Sod/ Tazobactam Sod 3.375 gm/Sodium Chloride 50 ml @ 100 mls/hr Q6HRS IV Last administered on 12/04/18at 05:03; Start 11/24/18 at 12:00; Stop 12/04/18 at 07:10; Status DC Pantoprazole Sodium (PROTONIX VIAL for IV PUSH) 40 mg DAILYAC IVP Last administered on 11/25/18at 09:04; Start 11/24/18 at 11:30; Stop 11/25/18 at 11: 36; Status DC Insulin Human Lispro (HumaLOG) 0-5 UNITS TIDWMEALS SQ Last administered on 12/02/18at 09:11; Start 11/24/18 at 12:00; Stop 12/02/18 at 11:09; Status DC Dextrose (Dextrose 50%-Water Syringe) 12.5 gm PRN Q15MIN PRN IV SEE COMMENTS; Start 11/24/18 at 09:45 Amino Acids/ Glycerin/ Electrolytes 1,000 ml @ 50 mls/hr Q20H IV Last administered on 11/29/18at 20:24; Start 11/24/18 at 09:45; Stop 11/30/18 at 21:00; Status DC Budesonide (Pulmicort) 0.5 mg RTBID NEB Last administered on 12/05/18at 08:00; Start 11/24/18 at 10:00 Albuterol/ Ipratropium (Duoneb) 3 ml RTQID NEB Last administered on 12/05/18at 13:04; Start 11/24/18 at 12:00 Furosemide (Lasix) 40 mg 1X ONCE IVP Last administered on 11/25/18at 04:44; Start 11/25/18 at 05:00; Stop 11/25/18 at 05:01; Status DC Albuterol Sulfate (Ventolin Neb Soln) 2.5 mg PRN Q6HRS PRN NEB SHORTNESS OF BREATH Last administered on 11/28/18at 03:57; Start 11/25/18 at 04:45 Pantoprazole Sodium (PROTONIX VIAL for IV PUSH) 40 mg BIDAC IVP Last administered on 12/02/18at 06:17; Start 11/25/18 at 16:30; Stop 12/02/18 at 15:46; Status DC Potassium Chloride/Water 100 ml @ 100 mls/hr Q1H IV Last administered on 11/25/18at 16:26; Start 11/25/18 at 13:00; Stop 11/25/18 at 16:59; Status DC Furosemide (Lasix) 20 mg 1X ONCE IVP Last administered on 11/26/18at 00:34; Start 11/26/18 at 01:00; Stop 11/26/18 at 01:01; Status DC Micafungin Sodium 100 mg/Dextrose 100 ml @ 100 mls/hr Q24H IV Last administered on 11/30/18at 09:14; Start 11/26/18 at 09:00; Stop 11/30/18 at 14:12; Status DC Furosemide (Lasix) 40 mg 1X ONCE IVP Last administered on 11/26/18at 10:33; Start 11/26/18 at 09:15; Stop 11/26/18 at 09:16; Status DC Albumin Human 100 ml @ 100 mls/hr 1X ONCE IV Last administered on 11/26/18at 10:34; Start 11/26/18 at 09:15; Stop 11/26/18 at 10:14; Status DC Metoprolol Tartrate (Lopressor Vial) 5 mg PRN Q6HRS PRN IVP HYPERTENSION, SEE COMMENTS; Start 11/26/18 at 12:00; Stop 11/26/18 at 14:22; Status DC Metoprolol Tartrate (Lopressor Vial) 5 mg Q6HRS IVP Last administered on 12/04/18at 17:39; Start 11/26/18 at 16:00 Furosemide (Lasix) 40 mg DAILY IVP Last administered on 12/03/18at 08:47; Start 11/27/18 at 09:00; Stop 12/04/18 at 07:10; Status DC Ondansetron HCl (Zofran) 4 mg PRN Q6HRS PRN IV NAUSEA/VOMITING; Start 11/29/18 at 07:00; Stop 11/29/18 at 19:00; Status DC Fentanyl Citrate (Fentanyl 2ml Vial) 25 mcg PRN Q5MIN PRN IV MILD PAIN; Start 11/29/18 at 07:00; Stop 11/29/18 at 19:00; Status DC Fentanyl Citrate (Fentanyl 2ml Vial) 50 mcg PRN Q5MIN PRN IV MODERATE TO SEVERE PAIN; Start 11/29/18 at 07:00; Stop 11/29/18 at 19:00; Status DC Morphine Sulfate (Morphine Sulfate) 1 mg PRN Q10MIN PRN IV SEVERE PAIN; Start 11/29/18 at 07:00; Stop 11/29/18 at 19:00; Status DC Ringer's Solution 1,000 ml @ 30 mls/hr Q24H IV ; Start 11/29/18 at 07:00; Stop 11/29/18 at 18:59; Status DC Lidocaine HCl (Xylocaine-Mpf 1% 2ml Vial) 2 ml PRN 1X PRN ID PRIOR TO IV START; Start 11/29/18 at 07:00; Stop 11/29/18 at 19:00; Status DC Hydromorphone HCl (Dilaudid) 0.5 mg PRN Q10MIN PRN IV SEV PAIN, Second choice; Start 11/29/18 at 07:00; Stop 11/29/18 at 19:00; Status DC Prochlorperazine Edisylate (Compazine) 5 mg PACU PRN PRN IV NAUSEA, MRX1; Start 11/29/18 at 07:00; Stop 11/29/18 at 19:00; Status DC Levothyroxine Sodium 50 mcg/ Sodium Chloride 5 ml @ 100 mls/hr Q3DAYS IVP Last administered on 12/01/18at 08:49; Start 12/01/18 at 09:00; Stop 12/04/18 at 07:10; Status DC Potassium Chloride/Water 100 ml @ 100 mls/hr Q1H IV Last administered on 11/27/18at 16:39; Start 11/27/18 at 12:30; Stop 11/27/18 at 16:29; Status DC Methylprednisolone Sodium Succinate (SOLU-Medrol 125MG VIAL) 80 mg Q8HRS IV Last administered on 12/01/18at 12:35; Start 11/28/18 at 17:00; Stop 12/01/18 at 17:42; Status DC Potassium Chloride/Water 100 ml @ 100 mls/hr Q1H IV Last administered on 11/29/18at 14:30; Start 11/29/18 at 07:00; Stop 11/29/18 at 10:59; Status DC Info (Tpn Per Pharmacy) 1 each PRN DAILY PRN MC SEE COMMENTS Last administered on 12/03/18at 13:01; Start 11/30/18 at 14:45; Stop 12/04/18 at 07:10; Status DC Sodium Chloride 90 meq/Potassium Chloride 50 meq/ Potassium Phosphate 13.6 mmol/Magnesium Sulfate 10 meq/ Calcium Gluconate 10 meq/ Multivitamins 10 ml/Chromium/ Copper/Manganese/ Seleni/Zn 1 ml/ Total Parenteral Nutrition/Amino Acids/Dextrose/ Fat Emulsion Intravenous 1,512 ml @ 63 mls/hr TPN CONT IV Last administered on 11/30/18at 21:11; Start 11/30/18 at 22:00; Stop 12/01/18 at 21:59; Status DC Potassium Phosphate 15 mmol/ Sodium Chloride 255 ml @ 85 mls/hr 1X ONCE IV Last administered on 12/01/18at 15:09; Start 12/01/18 at 15:00; Stop 12/01/18 at 17:59; Status DC Sodium Chloride 90 meq/Potassium Chloride 70 meq/ Potassium Phosphate 13.6 mmol/Magnesium Sulfate 10 meq/ Calcium Gluconate 10 meq/ Multivitamins 10 ml/Chromium/ Copper/Manganese/ Seleni/Zn 1 ml/ Total Parenteral Nutrition/Amino Acids/Dextrose/ Fat Emulsion Intravenous 1,512 ml @ 63 mls/hr TPN CONT IV Last administered on 12/01/18at 21:40; Start 12/01/18 at 22:00; Stop 12/02/18 at 21:59; Status DC Methylprednisolone Sodium Succinate (SOLU-Medrol 40MG VIAL) 80 mg BID IV Last administered on 12/02/18at 09:06; Start 12/01/18 at 21:00; Stop 12/02/18 at 11:09; Status DC Methylprednisolone Sodium Succinate (SOLU-Medrol 40MG VIAL) 40 mg DAILY IV Last administered on 12/03/18at 08:48; Start 12/03/18 at 09:00; Stop 12/04/18 at 07:10; Status DC Insulin Human Lispro (HumaLOG) 0-12 UNITS QIDACHS SQ Last administered on 12/04/18at 21:41; Start 12/02/18 at 11:30 Potassium Phosphate 15 mmol/ Sodium Chloride 255 ml @ 85 mls/hr 1X ONCE IV Last administered on 12/02/18at 14:49; Start 12/02/18 at 15:00; Stop 12/02/18 at 17:59; Status DC Sodium Chloride 90 meq/Potassium Chloride 70 meq/ Potassium Phosphate 13.6 mmol/Magnesium Sulfate 10 meq/ Calcium Gluconate 10 meq/ Multivitamins 10 ml/Chromium/ Copper/Manganese/ Seleni/Zn 1 ml/ Total Parenteral Nutrition/Amino Acids/Dextrose/ Fat Emulsion Intravenous 1,512 ml @ 63 mls/hr TPN CONT IV Last administered on 12/02/18at 20:50; Start 12/02/18 at 22:00; Stop 12/03/18 at 21:59; Status DC Famotidine (Pepcid Vial) 20 mg BID IVP Last administered on 5/3/19at 21:01; Start 12/02/18 at 21:00; Stop 12/04/18 at 07:10; Status DC Aspirin (Aspirin) 150 mg DAILY OR Last administered on 12/05/18 08:26; Start 12/03/18 at 10:30; Stop 12/05/18 at 13:59; Status DC Potassium Phosphate 15 mmol/ Sodium Chloride 255 ml @ 85 mls/hr 1X ONCE IV Last administered on 12/03/18at 13:16; Start 12/03/18 at 13:00; Stop 12/03/18 at 15:59; Status DC Sodium Chloride 90 meq/Potassium Chloride 70 meq/ Potassium Phosphate 18 mmol/ Magnesium Sulfate 10 meq/Calcium Gluconate 10 meq/ Multivitamins 10 ml/Chromium/ Copper/Manganese/ Seleni/Zn 1 ml/ Total Parenteral Nutrition/Amino Acids/Dextrose/ Fat Emulsion Intravenous 1,512 ml @ 63 mls/hr TPN CONT IV Last administered on 12/03/18at 21:02; Start 12/03/18 at 22:00; Stop 12/04/18 at 2 1:59; Status DC Acetaminophen/ Hydrocodone Bitart (Lortab 7.5/325) 1 tab 1X ONCE PO ; Start 12/04/18 at 07:15; Stop 12/04/18 at 07:16; Status Cancel Acetaminophen/ Hydrocodone Bitart (Lortab 7.5/325) 2 tab 1X ONCE PO ; Start 12/04/18 at 07:15; Stop 12/04/18 at 07:16; Status Cancel Amoxicillin/ Clavulanate Potassium (Augmentin 875/ 125mg) 1 tab BID PO Last administered on 12/04/18 07:55; Start 12/04/18 at 09:00; Stop 12/04/18 at 14:31; Status DC Levothyroxine Sodium (Synthroid) 50 mcg DAILY06 PO Last administered on 12/05/18 06:11; Start 12/04/18 at 07:30 Pantoprazole Sodium (Protonix) 40 mg DAILYAC PO Last administered on 12/05/18 08:26; Start 12/04/18 at 07:30 Furosemide (Lasix) 40 mg DAILY PO ; Start 12/04/18 at 09:00 Prednisone (Prednisone) 20 mg 1X ONCE PO Last administered on 12/04/18at 07:55; Start 12/04/18 at 07:15; Stop 12/04/18 at 07:16; Status DC Acetaminophen/ Hydrocodone Bitart (Lortab 7.5/325) 1 tab PRN Q4HRS PRN PO MODERATE PAIN; Start 12/04/18 at 07:30 Acetaminophen/ Hydrocodone Bitart (Lortab 7.5/325) 2 tab PRN Q4HRS PRN PO SEVERE PAIN Last administered on 12/05/18at 12:48; Start 12/04/18 at 07:30 Lactobacillus Rhamnosus (Culturelle) 1 cap BID PO Last administered on 12/05/18at 08:26; Start 12/04/18 at 21:00 Piperacillin Sod/ Tazobactam Sod 3.375 gm/Sodium Chloride 50 ml @ 100 mls/hr Q6HRS IV Last administered on 12/05/18at 12:41; Start 12/04/18 at 15:00 Aspirin (Ecotrin) 325 mg DAILYWBKFT PO ; Start 12/06/18 at 08:00 Sodium Chloride 425 ml @ 85 mls/hr Q5H IV ; Start 12/05/18 at 14:00; Stop 12/05/18 at 18:59 Active Scripts Active Sertraline Hcl 25 Mg Tablet 50 Mg PO QHS 30 Days Magnesium Chloride 70 Mg Tablet.dr 64 Mg PO DAILY 30 Days Synthroid (Levothyroxine Sodium) 88 Mcg Tablet 88 Mcg PO DAILY06 30 Days Prednisone 20 Mg Tablet 20 Mg PO DAILY 30 Days Budesonide 0.5 Mg/2 Ml Ampul.neb 0.5 Mg NEB RTBID 30 Days Klor-Con 10 (Potassium Chloride) 10 Meq Tablet.er 1 Tab PO DAILY Lasix (Furosemide) 40 Mg Tablet 1 Tab PO DAILY Aspirin Ec (Aspirin) 81 Mg Tablet.dr 81 Mg PO DAILYWBKFT 30 Days Duoneb 0.5-3(2.5) Mg/3 Ml (Albuterol/Ipratropium) 3 Ml Ampul.neb 3 Ml NEB RTQID 30 Days Diltiazem 24HR Cd (Diltiazem Hcl) 120 Mg Cap.er.24h 120 Mg PO DAILY 30 Days Reported Hydrocodone-Apap 7.5-325 (Hydrocodone Bit/Acetaminophen) 1 Tab Tablet 1 Tab PO PRN Q6HRS PRN Omeprazole 40 Mg Capsule.dr 40 Mg PO DAILY Vitals/I & O Vital Sign - Last 24 Hours 12/04/18 12/04/18 12/04/18 12/04/18 16:10 16:34 17:34 17:39 Pulse 78 Resp 18 18 B/P (MAP) 141/82 Pulse Ox 98 98 O2 Delivery Nasal Cannula Nasal Cannula O2 Flow Rate 3.0 3.0 12/04/18 12/04/18 12/04/18 12/04/18 19:30 20:00 21:02 21:12 Temp 97.8 97.8 Pulse 70 Resp 22 B/P (MAP) 132/69 (90) Pulse Ox 93 95 95 O2 Delivery Nasal Cannula Nasal Cannula Nasal Cannula Nasal Cannula O2 Flow Rate 3.0 3.0 3.0 3.0 12/04/18 12/04/18 12/05/18 12/05/18 23:19 23:30 03:30 06:00 Temp 97.7 98.2 97.7 98.2 Pulse 74 74 76 80 Resp 22 20 B/P (MAP) 118/74 118/77 (91) 141/84 (103) 131/78 Pulse Ox 92 97 O2 Delivery Nasal Cannula Nasal Cannula O2 Flow Rate 3.0 2.0 12/05/18 12/05/18 12/05/18 12/05/18 07:00 07:21 09:05 11:00 Temp 98.4 97.9 98.4 97.9 Pulse 82 74 Resp 16 16 B/P (MAP) 114/78 (90) 88/57 (67) Pulse Ox 95 97 96 O2 Delivery Nasal Cannula Nasal Cannula Nasal Cannula Nasal Cannula O2 Flow Rate 3.0 3.0 3.0 3.0 12/05/18 12/05/18 12/05/18 12/05/18 12:00 12:10 12:48 13:05 Pulse 78 78 B/P (MAP) 97/67 97/67 (77) Pulse Ox 95 O2 Delivery Nasal Cannula Nasal Cannula O2 Flow Rate 3.0 3.0 12/05/18 13:48 O2 Delivery Nasal Cannula O2 Flow Rate 3.0 Intake and Output 12/04/18 12/04/18 12/05/18 14:59 22:59 06:59 Intake Total 200 ml 240 ml 100 ml Output Total 200 ml 400 ml 375 ml Balance 0 ml -160 ml -275 ml Nutrition Consultation Dietary Evaluation: Recommendations by RD: PPN/TPN Comments: continue TPN until diet advancement and tolerated Expected Outcomes/Goals: diet adv/ tolerance Malnutrition Findings: Body Fat Depletion (Non Severe: Mild Depletion Weight Status: Underweight JANE MARCH MD December 05, 2018 14:55
[2018-12-05] MEDS: MORPHINE SULFATE 4 MG/ML VIAL. IV PRN ×2 (15:46→18:05)
[2018-12-06] MEDS: MORPHINE SULFATE 4 MG/ML VIAL. IV PRN ×5 (01:08→21:10)
[2018-12-06 04:00] VITALS: BP 109/69
[2018-12-06] MEDS: PIPERACILLIN/TAZOBACTAM 3.375 GM in IV NORMAL SALINE 50ML 50 ML IV SCH ×3 (05:59→18:19)
[2018-12-06] MEDS: METOPROLOL TARTRATE 5 MG/5 ML VIAL. IVP SCH ×3 (06:00→18:00)
[2018-12-06] MEDS: AMINO AC 3%/ELECTROLYTE/GLYCER 1,000 ML IV SCH ×2 (06:00→18:19)
[2018-12-06] MEDS: LEVOTHYROXINE 50 MCG TABLET PO SCH (06:00)
[2018-12-06 06:26] VITALS: BP 109/58
[2018-12-06] MEDS: INSULIN LISPRO 300 UNITS/3 ML INSULN.PEN. SQ SCH ×4 (07:30→21:00)
[2018-12-06] MEDS: BUDESONIDE 0.5 MG/2 ML NEBU. NEB SCH ×2 (07:57→20:05)
[2018-12-06] MEDS: IPRATRPIUM/ALBUTEROL 0.5/2.5MG 3 ML NEBU. NEB SCH ×4 (07:57→20:05)
--- NOTE | 2018-12-06 09:21 | PDOC ---
Infectious Disease Note Subjective Subjective Still not feeling well this morning c/p pain Denies N/V No BM or flatus O2 down to 2L No fevers/chills TPN Vital Sign Vital Signs Vital Signs Date Time Temp Pulse Resp B/P (MAP) Pulse Ox O2 Delivery O2 Flow Rate FiO2 12/06/18 07:58 98 Nasal Cannula 3.0 12/06/18 06:26 77 109/58 (75) 12/06/18 04:00 97.7 17 97.7 Physical Exam PHYSICAL EXAM GENERAL: Propped up in bed, weak appearing HEENT: Oral cavity and pharynx dry. NECK: Supple, no JVD. LUNGS: Mildly congested HEART: S1, S2. ABDOMEN: Soft, tender, BS present EXTREMITIES: Without clubbing or cyanosis. Trace edema BLE NEUROLOGIC: Awake, nods to few questions SKIN: Without generalized signs of rash. RUE-PICC (11/30) clean Labs Lab Laboratory Tests Test 12/05/18 14:23 12/05/18 17:06 12/05/18 21:07 12/06/18 07:07 Glucose (Fingerstick) 166 mg/dL (70-99) 146 mg/dL (70-99) 142 mg/dL (70-99) 101 mg/dL (70-99) Micro Objective Assessment Bacteremia from 11/24 - (gram neg coccobacilli in 1/4 bottles) Strep salivarius SBO Leukocytosis - better ? thrush AFib CHF Pulmonary fibrosis Plan Plan of Care Continue Zosyn (restarted 12/04) .pt was on a day of Augmentin , was on Zosyn prior Today's labs pending Oral care Maintain aspiration precautions Supportive care PT/OT Patient seen, examined, I agree with above Assessment and plan formulated by [facility]. OBED WEINER APRN December 06, 2018 09:21 CLARENCE MCKEON MD December 06, 2018 13:36
[2018-12-06] MEDS: PANTOPRAZOLE 40 MG TABLET.DR. PO SCH (10:19)
[2018-12-06] MEDS: ASPIRIN ENTERIC COATED 325 MG TABLET.DR. PO SCH (10:19)
[2018-12-06] MEDS: FUROSEMIDE 40 MG TABLET. PO SCH (10:19)
[2018-12-06] MEDS: LACTOBACILLUS RHAMNOSUS GG 1 CAPSULE. PO SCH ×2 (10:19→21:10)
[2018-12-06 11:00] VITALS: BP 119/59
--- NOTE | 2018-12-06 11:12 | PDOC ---
PULMONARY PROGRESS NOTES Subjective STILL VERY WEAK/ MILDLY BETTER Vitals Vital Signs Date Time Temp Pulse Resp B/P (MAP) Pulse Ox O2 Delivery O2 Flow Rate FiO2 12/06/18 11:00 98.0 58 16 119/59 (79) 97 Nasal Cannula 3.0 98.0 ROS: No Nausea, No Chest Pain, No Increase Cough General: Alert, No acute distress HEENT: Other Lungs: Other (decrease bases) Cardiovascular: S1, S2 Abdomen: Soft, Non-tender, Other Neuro Exam: Alert Extremities: No Edema, Other Labs Laboratory Tests Test 12/04/18 11:44 12/04/18 16:57 12/04/18 20:34 12/05/18 06:00 Glucose (Fingerstick) 251 mg/dL (70-99) 176 mg/dL (70-99) 262 mg/dL (70-99) White Blood Count 10.0 x10^3/uL (4.0-11.0) Red Blood Count 3.21 x10^6/uL (4.30-5.70) Hemoglobin 10.0 g/dL (13.0-17.5) Hematocrit 30.4 % (39.0-53.0) Mean Corpuscular Volume 95 fL (79-100) Mean Corpuscular Hemoglobin 31 pg (25-35) Mean Corpuscular Hemoglobin Concent 33 g/dL (31-37) Red Cell Distribution Width 15.8 % (11.5-14.5) Platelet Count 245 x10^3/uL (140-400) Neutrophils (%) (Auto) 89 % (31-73) Lymphocytes (%) (Auto) 6 % (24-48) Monocytes (%) (Auto) 4 % (0-9) Eosinophils (%) (Auto) 0 % (0-3) Basophils (%) (Auto) 0 % (0-3) Neutrophils # (Auto) 8.9 x10^3uL (1.8-7.7) Lymphocytes # (Auto) 0.6 x10^3/uL (1.0-4.8) Monocytes # (Auto) 0.4 x10^3/uL (0.0-1.1) Eosinophils # (Auto) 0.0 x10^3/uL (0.0-0.7) Basophils # (Auto) 0.0 x10^3/uL (0.0-0.2) Segmented Neutrophils % 85 % (35-66) Band Neutrophils % 7 % (0-9) Lymphocytes % 4 % (24-48) Monocytes % 3 % (0-10) Metamyelocytes % 1 % (0-0) Platelet Estimate Adequate (ADEQUATE) Polychromasia Slight Anisocytosis Slight Tear Drop Cells Occ Ovalocytes Few Sodium Level 135 mmol/L (136-145) Potassium Level 3.9 mmol/L (3.5-5.1) Chloride Level 99 mmol/L (98-107) Carbon Dioxide Level 30 mmol/L (21-32) Anion Gap 6 (6-14) Blood Urea Nitrogen 16 mg/dL (8-26) Creatinine 0.6 mg/dL (0.7-1.3) Estimated GFR (Cockcroft-Gault) 131.0 Glucose Level 106 mg/dL (70-99) Calcium Level 8.5 mg/dL (8.5-10.1) Test 12/05/18 14:23 12/05/18 17:06 12/05/18 21:07 12/06/18 07:07 Glucose (Fingerstick) 166 mg/dL (70-99) 146 mg/dL (70-99) 142 mg/dL (70-99) 101 mg/dL (70-99) Laboratory Tests Test 12/05/18 14:23 12/05/18 17:06 12/05/18 21:07 12/06/18 07:07 Glucose (Fingerstick) 166 mg/dL (70-99) 146 mg/dL (70-99) 142 mg/dL (70-99) 101 mg/dL (70-99) Medications Active Scripts Medications Dose Route/Sig Max Daily Dose Days Date Category Sertraline Hcl 25 Mg Tablet 50 Mg PO QHS 30 10/01/18 Rx Magnesium Chloride 70 Mg Tablet.dr 64 Mg PO DAILY 08/30/18 Rx Synthroid (Levothyroxine Sodium) 88 Mcg Tablet 88 Mcg PO DAILY06 08/30/18 Rx Prednisone 20 Mg Tablet 20 Mg PO DAILY 08/30/18 Rx Budesonide 0.5 Mg/2 Ml Ampul.neb 0.5 Mg NEB RTBID 08/30/18 Rx Hydrocodone-Apap 7.5-325 (Hydrocodone Bit/Acetaminophen) 1 Tab Tablet 1 Tab PO PRN Q6HRS PRN 08/26/18 Reported Omeprazole 40 Mg Capsule. 40 Mg PO DAILY 08/26/18 Reported Klor-Con 10 (Potassium Chloride) 10 Meq Tablet.er 1 Tab PO DAILY 07/16/18 Rx Lasix (Furosemide) 40 Mg Tablet 1 Tab PO DAILY 07/16/18 Rx Aspirin Ec (Aspirin) 81 Mg Tablet. 81 Mg PO DAILYWBKFT 30 07/16/18 Rx Duoneb 0.5-3(2.5) Mg/3 Ml (Albuterol/Ipratropium) 3 Ml Ampul.neb 3 Ml NEB RTQID 07/01/18 Rx Diltiazem 24HR Cd (Diltiazem Hcl) 120 Mg Cap.er.24h 120 Mg PO DAILY 07/01/18 Rx Comments BLOOD CULTURE LC Final Final report BLD CULT RESULT 1 Final Comment Streptococcus salivarius group ANTIMICROBIAL SUSCEPTIBILITY Final Comment S = Susceptible; I = Intermediate; R = Resistant P = Positive; N = Negative MICS are expressed in micrograms per mL Antibiotic RSLT#1 RSLT#2 RSLT#3 RSLT#4 Ceftriaxone S<=0.25 Chloramphenicol S =2 Clindamycin S<=0.06 Erythromycin R> 0.5 Penicillin S =0.12 Vancomycin S =0.5 Performed at: - [facility], [place], [place] [id number] [place] Winder: ANGELES Camargo MD, Phone: [phone] ct chest 1. Bibasilar lung consolidation changes likely pneumonia or infiltrates with underlying diffuse bibasilar reticular interstitial lung markings likely idiopathic pulmonary fibrosis. 2. Coronary artery calcifications. 3. Mild compression changes of T9, T10, T12 vertebral bodies. 4. Subcentimeter hypodensity identified in the right lobe of the liver, difficult to characterize similar to prior exam. Impression . IMPRESSION: 1. Acute hypoxemic respiratory failure. multi-factorial 2. Abnormal x-ray compatible with bilateral pulmonary infiltrates, suspect combination of, Pneumonia and acute lung injury from possible aspiration./ underlying severe honeycombing/ fibrosis ct chest 09/21, extensive basal fibrosis 3. Aspiration pneumonia. 4. Small-bowel obstruction. 5. Dysphagia. 6. Leukocytosis. 7. Bacteremia. 8. Atrial fibrillation. 9. Dmctt-vb-[id number] heart failure. Plan . STILL WEAK/ MILDLY BETTER UP TO CHAIR CONTINUE SUPPORT FOLLOW SURGERY INPUT ANTIBX PT DIURESE STERNOIDS TAPER CT CHEST REVIEWED/ EXTENSIVE FIBROSIS/ BASAL PNEUMONIA/ WILL TAKE FEW WEEKS TO RECOVER CONSIDER SKILL TRANSFER AR HINES MD December 06, 2018 11:12
[2018-12-06 11:15] LABS: BASO % 0 % (0-3); EOS # 0.1 x10^3/uL (0.0-0.7); EOS % 0 % (0-3); HEMATOCRIT 29.5 % (39.0-53.0); HEMOGLOBIN 9.4 g/dL (13.0-17.5); LYMPH # 0.4 x10^3/uL (1.0-4.8); LYMPH % 3 % (24-48); MEAN CORPUSCULAR HEMOGLOBIN 31 pg (25-35); MEAN CORPUSCULAR HGB CONC 32 g/dL (31-37); MEAN CORPUSCULAR VOLUME 96 fL (79-100); MONO # 0.7 x10^3/uL (0.0-1.1); MONO % 5 % (0-9); NEUT # 12.8 x10^3uL (1.8-7.7); NEUT % 92 % (31-73); PLATELET COUNT 255 x10^3/uL (140-400); RED BLOOD COUNT 3.08 x10^6/uL (4.30-5.70)
[2018-12-06 11:33] LABS: ALBUMIN 1.9 g/dL (3.4-5.0); ALBUMIN/GLOBULIN RATIO 0.6 (1.0-1.7); CREATININE 0.6 mg/dL (0.7-1.3); POTASSIUM 3.9 mmol/L (3.5-5.1); TOTAL BILIRUBIN 0.8 mg/dL (0.2-1.0); TOTAL PROTEIN 5.2 g/dL (6.4-8.2)
--- NOTE | 2018-12-06 12:19 | PDOC ---
SURGICAL PROGRESS NOTE Subjective less nausea today taking some clears Vital Signs Vital Signs Date Time Temp Pulse Resp B/P (MAP) Pulse Ox O2 Delivery O2 Flow Rate FiO2 12/06/18 11:39 88 Nasal Cannula 3.0 12/06/18 11:00 98.0 58 16 119/59 (79) 98.0 I&O Intake and Output 12/06/18 07:00 Intake Total 660 ml Output Total 350 ml Balance 310 ml Intake Oral 560 ml IV Total 100 ml Output Urine Total 350 ml # Voids 3 General: Alert, Cooperative Abdomen: Soft Labs Laboratory Tests Test 12/04/18 16:57 12/04/18 20:34 12/05/18 06:00 12/05/18 14:23 Glucose (Fingerstick) 176 mg/dL (70-99) 262 mg/dL (70-99) 166 mg/dL (70-99) White Blood Count 10.0 x10^3/uL (4.0-11.0) Red Blood Count 3.21 x10^6/uL (4.30-5.70) Hemoglobin 10.0 g/dL (13.0-17.5) Hematocrit 30.4 % (39.0-53.0) Mean Corpuscular Volume 95 fL (79-100) Mean Corpuscular Hemoglobin 31 pg (25-35) Mean Corpuscular Hemoglobin Concent 33 g/dL (31-37) Red Cell Distribution Width 15.8 % (11.5-14.5) Platelet Count 245 x10^3/uL (140-400) Neutrophils (%) (Auto) 89 % (31-73) Lymphocytes (%) (Auto) 6 % (24-48) Monocytes (%) (Auto) 4 % (0-9) Eosinophils (%) (Auto) 0 % (0-3) Basophils (%) (Auto) 0 % (0-3) Neutrophils # (Auto) 8.9 x10^3uL (1.8-7.7) Lymphocytes # (Auto) 0.6 x10^3/uL (1.0-4.8) Monocytes # (Auto) 0.4 x10^3/uL (0.0-1.1) Eosinophils # (Auto) 0.0 x10^3/uL (0.0-0.7) Basophils # (Auto) 0.0 x10^3/uL (0.0-0.2) Segmented Neutrophils % 85 % (35-66) Band Neutrophils % 7 % (0-9) Lymphocytes % 4 % (24-48) Monocytes % 3 % (0-10) Metamyelocytes % 1 % (0-0) Platelet Estimate Adequate (ADEQUATE) Polychromasia Slight Anisocytosis Slight Tear Drop Cells Occ Ovalocytes Few Sodium Level 135 mmol/L (136-145) Potassium Level 3.9 mmol/L (3.5-5.1) Chloride Level 99 mmol/L (98-107) Carbon Dioxide Level 30 mmol/L (21-32) Anion Gap 6 (6-14) Blood Urea Nitrogen 16 mg/dL (8-26) Creatinine 0.6 mg/dL (0.7-1.3) Estimated GFR (Cockcroft-Gault) 131.0 Glucose Level 106 mg/dL (70-99) Calcium Level 8.5 mg/dL (8.5-10.1) Test 12/05/18 17:06 12/05/18 21:07 12/06/18 07:07 12/06/18 10:40 Glucose (Fingerstick) 146 mg/dL (70-99) 142 mg/dL (70-99) 101 mg/dL (70-99) White Blood Count 14.0 x10^3/uL (4.0-11.0) Red Blood Count 3.08 x10^6/uL (4.30-5.70) Hemoglobin 9.4 g/dL (13.0-17.5) Hematocrit 29.5 % (39.0-53.0) Mean Corpuscular Volume 96 fL (79-100) Mean Corpuscular Hemoglobin 31 pg (25-35) Mean Corpuscular Hemoglobin Concent 32 g/dL (31-37) Red Cell Distribution Width 16.0 % (11.5-14.5) Platelet Count 255 x10^3/uL (140-400) Neutrophils (%) (Auto) 92 % (31-73) Lymphocytes (%) (Auto) 3 % (24-48) Monocytes (%) (Auto) 5 % (0-9) Eosinophils (%) (Auto) 0 % (0-3) Basophils (%) (Auto) 0 % (0-3) Neutrophils # (Auto) 12.8 x10^3uL (1.8-7.7) Lymphocytes # (Auto) 0.4 x10^3/uL (1.0-4.8) Monocytes # (Auto) 0.7 x10^3/uL (0.0-1.1) Eosinophils # (Auto) 0.1 x10^3/uL (0.0-0.7) Basophils # (Auto) 0.0 x10^3/uL (0.0-0.2) Sodium Level 136 mmol/L (136-145) Potassium Level 3.9 mmol/L (3.5-5.1) Chloride Level 101 mmol/L (98-107) Carbon Dioxide Level 29 mmol/L (21-32) Anion Gap 6 (6-14) Blood Urea Nitrogen 14 mg/dL (8-26) Creatinine 0.6 mg/dL (0.7-1.3) Estimated GFR (Cockcroft-Gault) 131.0 BUN/Creatinine Ratio 23 (6-20) Glucose Level 91 mg/dL (70-99) Calcium Level 8.0 mg/dL (8.5-10.1) Total Bilirubin 0.8 mg/dL (0.2-1.0) Aspartate Amino Transf (AST/SGOT) 22 U/L (15-37) Alanine Aminotransferase (ALT/SGPT) 31 U/L (16-63) Alkaline Phosphatase 75 U/L (46-116) Total Protein 5.2 g/dL (6.4-8.2) Albumin 1.9 g/dL (3.4-5.0) Albumin/Globulin Ratio 0.6 (1.0-1.7) Test 12/06/18 11:23 Glucose (Fingerstick) 93 mg/dL (70-99) Laboratory Tests Test 12/05/18 14:23 12/05/18 17:06 12/05/18 21:07 12/06/18 07:07 Glucose (Fingerstick) 166 mg/dL (70-99) 146 mg/dL (70-99) 142 mg/dL (70-99) 101 mg/dL (70-99) Test 12/06/18 10:40 12/06/18 11:23 White Blood Count 14.0 x10^3/uL (4.0-11.0) Red Blood Count 3.08 x10^6/uL (4.30-5.70) Hemoglobin 9.4 g/dL (13.0-17.5) Hematocrit 29.5 % (39.0-53.0) Mean Corpuscular Volume 96 fL (79-100) Mean Corpuscular Hemoglobin 31 pg (25-35) Mean Corpuscular Hemoglobin Concent 32 g/dL (31-37) Red Cell Distribution Width 16.0 % (11.5-14.5) Platelet Count 255 x10^3/uL (140-400) Neutrophils (%) (Auto) 92 % (31-73) Lymphocytes (%) (Auto) 3 % (24-48) Monocytes (%) (Auto) 5 % (0-9) Eosinophils (%) (Auto) 0 % (0-3) Basophils (%) (Auto) 0 % (0-3) Neutrophils # (Auto) 12.8 x10^3uL (1.8-7.7) Lymphocytes # (Auto) 0.4 x10^3/uL (1.0-4.8) Monocytes # (Auto) 0.7 x10^3/uL (0.0-1.1) Eosinophils # (Auto) 0.1 x10^3/uL (0.0-0.7) Basophils # (Auto) 0.0 x10^3/uL (0.0-0.2) Sodium Level 136 mmol/L (136-145) Potassium Level 3.9 mmol/L (3.5-5.1) Chloride Level 101 mmol/L (98-107) Carbon Dioxide Level 29 mmol/L (21-32) Anion Gap 6 (6-14) Blood Urea Nitrogen 14 mg/dL (8-26) Creatinine 0.6 mg/dL (0.7-1.3) Estimated GFR (Cockcroft-Gault) 131.0 BUN/Creatinine Ratio 23 (6-20) Glucose Level 91 mg/dL (70-99) Calcium Level 8.0 mg/dL (8.5-10.1) Total Bilirubin 0.8 mg/dL (0.2-1.0) Aspartate Amino Transf (AST/SGOT) 22 U/L (15-37) Alanine Aminotransferase (ALT/SGPT) 31 U/L (16-63) Alkaline Phosphatase 75 U/L (46-116) Total Protein 5.2 g/dL (6.4-8.2) Albumin 1.9 g/dL (3.4-5.0) Albumin/Globulin Ratio 0.6 (1.0-1.7) Glucose (Fingerstick) 93 mg/dL (70-99) Problem List Problems Medical Problems: (1) Pneumonia Status: Acute Assessment/Plan supportive measures dr umanzor returns tomorrow REMBERTO WINSTON APRN December 06, 2018 12:19
[2018-12-06] MEDS: TPN PER PHARMACY MC SCH (13:12)
--- NOTE | 2018-12-06 13:12 | NUR ---
Pharmacy TPN Dosing Note S: JOHN ROBBINS is a 78 year old M Currently receiving Central Continuous TPN started 11/30/18 B:Pertinent PMH: SBO, s/p surgery with slow improvement in PO intake Height: 5 feet, 10 inches Weight: 54.1 kg Current diet: CLD LABS: Sodium: 136 Potassium: 3.9 Chloride: 101 Calcium: 8.0 Corrected Calcium: 9.68 Magnesium: 2.1 (12/04) CO2: 29 SCr: 0.6 Glucose: 91, 93 Albumin: 1.9 AST: 22 ALT: 31 TPN FORMULA: TPN TYPE: Central Continuous AMINO ACIDS: 60 gm DEXTROSE: 195 gm LIPIDS: 20 gm SODIUM CHLORIDE: 90 mEq POTASSIUM CHLORIDE: 70 mEq POTASSIUM PHOSPHATE: 18 mmol MAGNESIUM: 6 mEq CALCIUM: 10 mEq MULTIPLE VITAMIN: 10 ml TRACE ELEMENTS: 1 ml TPN PLAN: -Due to poor PO intake, restart TPN per Dr. Garcia. -Resume earlier macro/micronutrients from this admission. -Will concentrate due to patient's diagnosis of CHF. -BMP, mag, phos, triglycerides tomorrow. R: Resume TPN at previous formula @ 52 ml/hr. Will monitor electrolytes, glucose, and tolerance to TPN. TERRIE LLANOS, [facility]MERLY [facility] [place], 12/06/18 [id number]
--- NOTE | 2018-12-06 13:47 | NUR ---
ADA following pt. ADA updated Libby at [facility], Pt might need TPN upon dc. Will continue to follow.
--- NOTE | 2018-12-06 14:08 | PDOC ---
PROGRESS NOTES Subjective Subjective Patient still very weak with minimal po intake, patient asking for increased diet. denies flatus or BM. Patient declines palliative care at this time.TPN delayed do to ordering error Objective Objective Vital Signs Date Time Temp Pulse Resp B/P (MAP) Pulse Ox O2 Delivery O2 Flow Rate FiO2 12/06/18 12:00 58 119/59 12/06/18 11:39 88 Nasal Cannula 3.0 12/06/18 11:00 98.0 16 98.0 Intake and Output 12/06/18 07:00 Intake Total 660 ml Output Total 350 ml Balance 310 ml Intake Oral 560 ml IV Total 100 ml Output Urine Total 350 ml # Voids 3 Physical Exam Abdomen: Other (+bs today) Heart: Regular rate Extremities: No edema General: Alert Lungs: Clear to auscultation Assessment Assessment Problems Medical Problems: (1) Pneumonia Status: Acute SBO esophagitis possible GI bleed aspiration pneumonia anemia hyperglycemia CAD 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 Labs Laboratory Tests Test 12/04/18 16:57 12/04/18 20:34 12/05/18 06:00 12/05/18 14:23 Glucose (Fingerstick) 176 mg/dL (70-99) 262 mg/dL (70-99) 166 mg/dL (70-99) White Blood Count 10.0 x10^3/uL (4.0-11.0) Red Blood Count 3.21 x10^6/uL (4.30-5.70) Hemoglobin 10.0 g/dL (13.0-17.5) Hematocrit 30.4 % (39.0-53.0) Mean Corpuscular Volume 95 fL (79-100) Mean Corpuscular Hemoglobin 31 pg (25-35) Mean Corpuscular Hemoglobin Concent 33 g/dL (31-37) Red Cell Distribution Width 15.8 % (11.5-14.5) Platelet Count 245 x10^3/uL (140-400) Neutrophils (%) (Auto) 89 % (31-73) Lymphocytes (%) (Auto) 6 % (24-48) Monocytes (%) (Auto) 4 % (0-9) Eosinophils (%) (Auto) 0 % (0-3) Basophils (%) (Auto) 0 % (0-3) Neutrophils # (Auto) 8.9 x10^3uL (1.8-7.7) Lymphocytes # (Auto) 0.6 x10^3/uL (1.0-4.8) Monocytes # (Auto) 0.4 x10^3/uL (0.0-1.1) Eosinophils # (Auto) 0.0 x10^3/uL (0.0-0.7) Basophils # (Auto) 0.0 x10^3/uL (0.0-0.2) Segmented Neutrophils % 85 % (35-66) Band Neutrophils % 7 % (0-9) Lymphocytes % 4 % (24-48) Monocytes % 3 % (0-10) Metamyelocytes % 1 % (0-0) Platelet Estimate Adequate (ADEQUATE) Polychromasia Slight Anisocytosis Slight Tear Drop Cells Occ Ovalocytes Few Sodium Level 135 mmol/L (136-145) Potassium Level 3.9 mmol/L (3.5-5.1) Chloride Level 99 mmol/L (98-107) Carbon Dioxide Level 30 mmol/L (21-32) Anion Gap 6 (6-14) Blood Urea Nitrogen 16 mg/dL (8-26) Creatinine 0.6 mg/dL (0.7-1.3) Estimated GFR (Cockcroft-Gault) 131.0 Glucose Level 106 mg/dL (70-99) Calcium Level 8.5 mg/dL (8.5-10.1) Test 12/05/18 17:06 12/05/18 21:07 12/06/18 07:07 12/06/18 10:40 Glucose (Fingerstick) 146 mg/dL (70-99) 142 mg/dL (70-99) 101 mg/dL (70-99) White Blood Count 14.0 x10^3/uL (4.0-11.0) Red Blood Count 3.08 x10^6/uL (4.30-5.70) Hemoglobin 9.4 g/dL (13.0-17.5) Hematocrit 29.5 % (39.0-53.0) Mean Corpuscular Volume 96 fL (79-100) Mean Corpuscular Hemoglobin 31 pg (25-35) Mean Corpuscular Hemoglobin Concent 32 g/dL (31-37) Red Cell Distribution Width 16.0 % (11.5-14.5) Platelet Count 255 x10^3/uL (140-400) Neutrophils (%) (Auto) 92 % (31-73) Lymphocytes (%) (Auto) 3 % (24-48) Monocytes (%) (Auto) 5 % (0-9) Eosinophils (%) (Auto) 0 % (0-3) Basophils (%) (Auto) 0 % (0-3) Neutrophils # (Auto) 12.8 x10^3uL (1.8-7.7) Lymphocytes # (Auto) 0.4 x10^3/uL (1.0-4.8) Monocytes # (Auto) 0.7 x10^3/uL (0.0-1.1) Eosinophils # (Auto) 0.1 x10^3/uL (0.0-0.7) Basophils # (Auto) 0.0 x10^3/uL (0.0-0.2) Sodium Level 136 mmol/L (136-145) Potassium Level 3.9 mmol/L (3.5-5.1) Chloride Level 101 mmol/L (98-107) Carbon Dioxide Level 29 mmol/L (21-32) Anion Gap 6 (6-14) Blood Urea Nitrogen 14 mg/dL (8-26) Creatinine 0.6 mg/dL (0.7-1.3) Estimated GFR (Cockcroft-Gault) 131.0 BUN/Creatinine Ratio 23 (6-20) Glucose Level 91 mg/dL (70-99) Calcium Level 8.0 mg/dL (8.5-10.1) Total Bilirubin 0.8 mg/dL (0.2-1.0) Aspartate Amino Transf (AST/SGOT) 22 U/L (15-37) Alanine Aminotransferase (ALT/SGPT) 31 U/L (16-63) Alkaline Phosphatase 75 U/L (46-116) Total Protein 5.2 g/dL (6.4-8.2) Albumin 1.9 g/dL (3.4-5.0) Albumin/Globulin Ratio 0.6 (1.0-1.7) Test 12/06/18 11:23 Glucose (Fingerstick) 93 mg/dL (70-99) Laboratory Tests Test 12/05/18 14:23 12/05/18 17:06 12/05/18 21:07 12/06/18 07:07 Glucose (Fingerstick) 166 mg/dL (70-99) 146 mg/dL (70-99) 142 mg/dL (70-99) 101 mg/dL (70-99) Test 12/06/18 10:40 12/06/18 11:23 White Blood Count 14.0 x10^3/uL (4.0-11.0) Red Blood Count 3.08 x10^6/uL (4.30-5.70) Hemoglobin 9.4 g/dL (13.0-17.5) Hematocrit 29.5 % (39.0-53.0) Mean Corpuscular Volume 96 fL (79-100) Mean Corpuscular Hemoglobin 31 pg (25-35) Mean Corpuscular Hemoglobin Concent 32 g/dL (31-37) Red Cell Distribution Width 16.0 % (11.5-14.5) Platelet Count 255 x10^3/uL (140-400) Neutrophils (%) (Auto) 92 % (31-73) Lymphocytes (%) (Auto) 3 % (24-48) Monocytes (%) (Auto) 5 % (0-9) Eosinophils (%) (Auto) 0 % (0-3) Basophils (%) (Auto) 0 % (0-3) Neutrophils # (Auto) 12.8 x10^3uL (1.8-7.7) Lymphocytes # (Auto) 0.4 x10^3/uL (1.0-4.8) Monocytes # (Auto) 0.7 x10^3/uL (0.0-1.1) Eosinophils # (Auto) 0.1 x10^3/uL (0.0-0.7) Basophils # (Auto) 0.0 x10^3/uL (0.0-0.2) Sodium Level 136 mmol/L (136-145) Potassium Level 3.9 mmol/L (3.5-5.1) Chloride Level 101 mmol/L (98-107) Carbon Dioxide Level 29 mmol/L (21-32) Anion Gap 6 (6-14) Blood Urea Nitrogen 14 mg/dL (8-26) Creatinine 0.6 mg/dL (0.7-1.3) Estimated GFR (Cockcroft-Gault) 131.0 BUN/Creatinine Ratio 23 (6-20) Glucose Level 91 mg/dL (70-99) Calcium Level 8.0 mg/dL (8.5-10.1) Total Bilirubin 0.8 mg/dL (0.2-1.0) Aspartate Amino Transf (AST/SGOT) 22 U/L (15-37) Alanine Aminotransferase (ALT/SGPT) 31 U/L (16-63) Alkaline Phosphatase 75 U/L (46-116) Total Protein 5.2 g/dL (6.4-8.2) Albumin 1.9 g/dL (3.4-5.0) Albumin/Globulin Ratio 0.6 (1.0-1.7) Glucose (Fingerstick) 93 mg/dL (70-99) Microbiology 11/24/18 Blood Culture - Final, Complete 11/24/18 Blood Culture Result 1 (ATA) - Final, Complete 11/24/18 Antimicrobic Susceptibility - Final, Complete Medications Current Medications Fentanyl Citrate (Fentanyl 2ml Vial) 50 mcg 1X ONCE IV Last administered on 11/24/18at 03:45; Start 11/24/18 at 03:15; Stop 11/24/18 at 03:18; Status DC Sodium Chloride 1,000 ml @ 1,000 mls/hr 1X ONCE IV Last administered on 11/24/18at 03:45; Start 11/24/18 at 03:15; Stop 11/24/18 at 04:14; Status DC Ondansetron HCl (Zofran) 4 mg 1X ONCE IV Last administered on 11/24/18at 03:45; Start 11/24/18 at 03:15; Stop 11/24/18 at 03:18; Status DC Iohexol (Omnipaque 300 Mg/ml) 75 ml 1X ONCE IV Last administered on 11/24/18at 04:30; Start 11/24/18 at 03:45; Stop 11/24/18 at 03:46; Status DC Info (CONTRAST GIVEN -- Rx MONITORING) 1 each PRN DAILY PRN MC SEE COMMENTS; Start 11/24/18 at 03:45; Stop 11/26/18 at 03:44; Status DC Benzocaine (Hurricaine One) 1 spray 1X ONCE MM ; Start 11/24/18 at 05:15; Stop 11/24/18 at 05:16; Status DC Morphine Sulfate (Morphine Sulfate) 4 mg 1X ONCE IV Last administered on 11/24/18at 06:03; Start 11/24/18 at 06:00; Stop 11/24/18 at 06:01; Status DC Sodium Chloride 1,000 ml @ 1,000 mls/hr 1X ONCE IV Last administered on 11/24/18at 06:03; Start 11/24/18 at 06:00; Stop 11/24/18 at 06:59; Status DC Morphine Sulfate (Morphine Sulfate) 4 mg PRN Q2HR PRN IV PAIN Last administered on 12/06/18at 10:24; Start 11/24/18 at 06:00 Sodium Chloride 1,000 ml @ 125 mls/hr 1X ONCE IV Last administered on 11/24/18at 08:10; Start 11/24/18 at 06:00; Stop 11/24/18 at 13:59; Status DC Ondansetron HCl (Zofran) 4 mg PRN Q6HRS PRN IV NAUSEA/VOMITING; Start 11/24/18 at 06:00 Piperacillin Sod/ Tazobactam Sod (Zosyn Per Pharmacy) 1 each PRN DAILY PRN MC SEE COMMENTS; Start 11/24/18 at 06:00; Stop 12/04/18 at 07:10; Status DC Piperacillin Sod/ Tazobactam Sod 3.375 gm/Sodium Chloride 50 ml @ 100 mls/hr 1X ONCE IV Last administered on 11/24/18at 06:53; Start 11/24/18 at 06:15; Stop 11/24/18 at 06:44; Status DC Piperacillin Sod/ Tazobactam Sod 3.375 gm/Sodium Chloride 50 ml @ 100 mls/hr Q6HRS IV Last administered on 12/04/18at 05:03; Start 11/24/18 at 12:00; Stop 12/04/18 at 07:10; Status DC Pantoprazole Sodium (PROTONIX VIAL for IV PUSH) 40 mg DAILYAC IVP Last administered on 11/25/18 09:04; Start 11/24/18 at 11:30; Stop 11/25/18 at 11:36; Status DC Insulin Human Lispro (HumaLOG) 0-5 UNITS TIDWMEALS SQ Last administered on 12/02/18 09:11; Start 11/24/18 at 12:00; Stop 12/02/18 at 11:09; Status DC Dextrose (Dextrose 50%-Water Syringe) 12.5 gm PRN Q15MIN PRN IV SEE COMMENTS; Start 11/24/18 at 09:45 Amino Acids/ Glycerin/ Electrolytes 1,000 ml @ 50 mls/hr Q20H IV Last administered on 11/29/18 20:24; Start 11/24/18 at 09:45; Stop 11/30/18 at 21:00; Status DC Budesonide (Pulmicort) 0.5 mg RTBID NEB Last administered on 12/06/18 07:57; Start 11/24/18 at 10:00 Albuterol/ Ipratropium (Duoneb) 3 ml RTQID NEB Last administered on 12/06/18 11:39; Start 11/24/18 at 12:00 Furosemide (Lasix) 40 mg 1X ONCE IVP Last administered on 11/25/18 04:44; Start 11/25/18 at 05:00; Stop 11/25/18 at 05:01; Status DC Albuterol Sulfate (Ventolin Neb Soln) 2.5 mg PRN Q6HRS PRN NEB SHORTNESS OF BREATH Last administered on 11/28/18 03:57; Start 11/25/18 at 04:45 Pantoprazole Sodium (PROTONIX VIAL for IV PUSH) 40 mg BIDAC IVP Last administered on 12/02/18 06:17; Start 11/25/18 at 16:30; Stop 12/02/18 at 15:46; Status DC Potassium Chloride/Water 100 ml @ 100 mls/hr Q1H IV Last administered on 11/25/18 16:26; Start 11/25/18 at 13:00; Stop 11/25/18 at 16:59; Status DC Furosemide (Lasix) 20 mg 1X ONCE IVP Last administered on 11/26/18at 00:34; Start 11/26/18 at 01:00; Stop 11/26/18 at 01:01; Status DC Micafungin Sodium 100 mg/Dextrose 100 ml @ 100 mls/hr Q24H IV Last administered on 11/30/18at 09:14; Start 11/26/18 at 09:00; Stop 11/30/18 at 14:12; Status DC Furosemide (Lasix) 40 mg 1X ONCE IVP Last administered on 11/26/18at 10:33; Start 11/26/18 at 09:15; Stop 11/26/18 at 09:16; Status DC Albumin Human 100 ml @ 100 mls/hr 1X ONCE IV Last administered on 11/26/18at 10:34; Start 11/26/18 at 09:15; Stop 11/26/18 at 10:14; Status DC Metoprolol Tartrate (Lopressor Vial) 5 mg PRN Q6HRS PRN IVP HYPERTENSION, SEE COMMENTS; Start 11/26/18 at 12:00; Stop 11/26/18 at 14:22; Status DC Metoprolol Tartrate (Lopressor Vial) 5 mg Q6HRS IVP Last administered on 12/04/18at 17:39; Start 11/26/18 at 16:00 Furosemide (Lasix) 40 mg DAILY IVP Last administered on 12/03/18at 08:47; Start 11/27/18 at 09:00; Stop 12/04/18 at 07:10; Status DC Ondansetron HCl (Zofran) 4 mg PRN Q6HRS PRN IV NAUSEA/VOMITING; Start 11/29/18 at 07:00; Stop 11/29/18 at 19:00; Status DC Fentanyl Citrate (Fentanyl 2ml Vial) 25 mcg PRN Q5MIN PRN IV MILD PAIN; Start 11/29/18 at 07:00; Stop 11/29/18 at 19:00; Status DC Fentanyl Citrate (Fentanyl 2ml Vial) 50 mcg PRN Q5MIN PRN IV MODERATE TO SEVERE PAIN; Start 11/29/18 at 07:00; Stop 11/29/18 at 19:00; Status DC Morphine Sulfate (Morphine Sulfate) 1 mg PRN Q10MIN PRN IV SEVERE PAIN; Start 11/29/18 at 07:00; Stop 11/29/18 at 19:00; Status DC Ringer's Solution 1,000 ml @ 30 mls/hr Q24H IV ; Start 11/29/18 at 07:00; Stop 11/29/18 at 18:59; Status DC Lidocaine HCl (Xylocaine-Mpf 1% 2ml Vial) 2 ml PRN 1X PRN ID PRIOR TO IV START; Start 11/29/18 at 07:00; Stop 11/29/18 at 19:00; Status DC Hydromorphone HCl (Dilaudid) 0.5 mg PRN Q10MIN PRN IV SEV PAIN, Second choice; Start 11/29/18 at 07:00; Stop 11/29/18 at 19:00; Status DC Prochlorperazine Edisylate (Compazine) 5 mg PACU PRN PRN IV NAUSEA, MRX1; Start 11/29/18 at 07:00; Stop 11/29/18 at 19:00; Status DC Levothyroxine Sodium 50 mcg/ Sodium Chloride 5 ml @ 100 mls/hr Q3DAYS IVP Last administered on 12/01/18at 08:49; Start 12/01/18 at 09:00; Stop 12/04/18 at 07:10; Status DC Potassium Chloride/Water 100 ml @ 100 mls/hr Q1H IV Last administered on 11/27/18at 16:39; Start 11/27/18 at 12:30; Stop 11/27/18 at 16:29; Status DC Methylprednisolone Sodium Succinate (SOLU-Medrol 125MG VIAL) 80 mg Q8HRS IV Last administered on 12/01/18at 12:35; Start 11/28/18 at 17:00; Stop 12/01/18 at 17:42; Status DC Potassium Chloride/Water 100 ml @ 100 mls/hr Q1H IV Last administered on 11/29/18at 14:30; Start 11/29/18 at 07:00; Stop 11/29/18 at 10:59; Status DC Info (Tpn Per Pharmacy) 1 each PRN DAILY PRN MC SEE COMMENTS Last administered on 12/03/18at 13:01; Start 11/30/18 at 14:45; Stop 12/04/18 at 07:10; Status DC Sodium Chloride 90 meq/Potassium Chloride 50 meq/ Potassium Phosphate 13.6 mmol/Magnesium Sulfate 10 meq/ Calcium Gluconate 10 meq/ Multivitamins 10 ml/Chromium/ Copper/Manganese/ Seleni/Zn 1 ml/ Total Parenteral Nutrition/Amino Acids/Dextrose/ Fat Emulsion Intravenous 1,512 ml @ 63 mls/hr TPN CONT IV Last administered on 11/30/18at 21:11; Start 11/30/18 at 22:00; Stop 12/01/18 at 21:59; Status DC Potassium Phosphate 15 mmol/ Sodium Chloride 255 ml @ 85 mls/hr 1X ONCE IV Last administered on 12/01/18at 15:09; Start 12/01/18 at 15:00; Stop 12/01/18 at 17:59; Status DC Sodium Chloride 90 meq/Potassium Chloride 70 meq/ Potassium Phosphate 13.6 mmol/Magnesium Sulfate 10 meq/ Calcium Gluconate 10 meq/ Multivitamins 10 ml/Chromium/ Copper/Manganese/ Seleni/Zn 1 ml/ Total Parenteral Nutrition/Amino Acids/Dextrose/ Fat Emulsion Intravenous 1,512 ml @ 63 mls/hr TPN CONT IV Last administered on 12/01/18at 21:40; Start 12/01/18 at 22:00; Stop 12/02/18 at 21:59; Status DC Methylprednisolone Sodium Succinate (SOLU-Medrol 40MG VIAL) 80 mg BID IV Last administered on 12/02/18at 09:06; Start 12/01/18 at 21:00; Stop 12/02/18 at 11:09; Status DC Methylprednisolone Sodium Succinate (SOLU-Medrol 40MG VIAL) 40 mg DAILY IV Last administered on 12/03/18at 08:48; Start 12/03/18 at 09:00; Stop 12/04/18 at 07:10; Status DC Insulin Human Lispro (HumaLOG) 0-12 UNITS QIDACHS SQ Last administered on 12/04/18at 21:41; Start 12/02/18 at 11:30 Potassium Phosphate 15 mmol/ Sodium Chloride 255 ml @ 85 mls/hr 1X ONCE IV Last administered on 12/02/18at 14:49; Start 12/02/18 at 15:00; Stop 12/02/18 at 17:59; Status DC Sodium Chloride 90 meq/Potassium Chloride 70 meq/ Potassium Phosphate 13.6 mmol/Magnesium Sulfate 10 meq/ Calcium Gluconate 10 meq/ Multivitamins 10 ml/Chromium/ Copper/Manganese/ Seleni/Zn 1 ml/ Total Parenteral Nutrition/Amino Acids/Dextrose/ Fat Emulsion Intravenous 1,512 ml @ 63 mls/hr TPN CONT IV Last administered on 12/02/18at 20:50; Start 12/02/18 at 22:00; Stop 12/03/18 at 21:59; Status DC Famotidine (Pepcid Vial) 20 mg BID IVP Last administered on 12/03/18at 21:01; Start 12/02/18 at 21:00; Stop 12/04/18 at 07:10; Status DC Aspirin (Aspirin) 150 mg DAILY MI Last administered on 12/05/18at 08:26; Start 12/03/18 at 10:30; Stop 12/05/18 at 13:59; Status DC Potassium Phosphate 15 mmol/ Sodium Chloride 255 ml @ 85 mls/hr 1X ONCE IV Last administered on 12/03/18at 13:16; Start 12/03/18 at 13:00; Stop 12/03/18 at 15:59; Status DC Sodium Chloride 90 meq/Potassium Chloride 70 meq/ Potassium Phosphate 18 mmol/ Magnesium Sulfate 10 meq/Calcium Gluconate 10 meq/ Multivitamins 10 ml/Chromium/ Copper/Manganese/ Seleni/Zn 1 ml/ Total Parenteral Nutrition/Amino Acids/Dextrose/ Fat Emulsion Intravenous 1,512 ml @ 63 mls/hr TPN CONT IV Last administered on 12/03/18at 21:02; Start 12/03/18 at 22:00; Stop 12/04/18 at 21:59; Status DC Acetaminophen/ Hydrocodone Bitart (Lortab 7.5/325) 1 tab 1X ONCE PO ; Start 12/04/18 at 07:15; Stop 12/04/18 at 07:16; Status Cancel Acetaminophen/ Hydrocodone Bitart (Lortab 7.5/325) 2 tab 1X ONCE PO ; Start 12/04/18 at 07:15; Stop 12/04/18 at 07:16; Status Cancel Amoxicillin/ Clavulanate Potassium (Augmentin 875/ 125mg) 1 tab BID PO Last administered on 12/04/18at 07:55; Start 12/04/18 at 09:00; Stop 12/04/18 at 14:31; Status DC Levothyroxine Sodium (Synthroid) 50 mcg DAILY06 PO Last administered on 12/06/18 06:00; Start 12/04/18 at 07:30 Pantoprazole Sodium (Protonix) 40 mg DAILYAC PO Last administered on 12/06/18 10:19; Start 12/04/18 at 07:30 Furosemide (Lasix) 40 mg DAILY PO Last administered on 12/06/18 10:19; Start 12/04/18 at 09:00 Prednisone (Prednisone) 20 mg 1X ONCE PO Last administered on 12/04/18 07:55; Start 12/04/18 at 07:15; Stop 12/04/18 at 07:16; Status DC Acetaminophen/ Hydrocodone Bitart (Lortab 7.5/325) 1 tab PRN Q4HRS PRN PO MODERATE PAIN; Start 12/04/18 at 07:30 Acetaminophen/ Hydrocodone Bitart (Lortab 7.5/325) 2 tab PRN Q4HRS PRN PO SEVERE PAIN Last administered on 12/05/18 21:16; Start 12/04/18 at 07:30 Lactobacillus Rhamnosus (Culturelle) 1 cap BID PO Last administered on 12/06/18 10:19; Start 12/04/18 at 21:00 Piperacillin Sod/ Tazobactam Sod 3.375 gm/Sodium Chloride 50 ml @ 100 mls/hr Q6HRS IV Last administered on 12/06/18 12:54; Start 12/04/18 at 15:00 Aspirin (Ecotrin) 325 mg DAILYWBKFT PO Last administered on 12/06/18 10:19; Start 12/06/18 at 08:00 Sodium Chloride 425 ml @ 85 mls/hr Q5H IV Last administered on 12/05/18 14:00; Start 12/05/18 at 14:00; Stop 12/05/18 at 18:59; Status DC Info (Tpn Per Pharmacy) 1 each PRN DAILY MC Last administered on 12/06/18 13:12; Start 12/06/18 at 05:15 Amino Acids/ Glycerin/ Electrolytes 1,000 ml @ 80 mls/hr [id number] IV Last administered on 12/06/18 06:00; Start 12/06/18 at 05:15; Stop 12/06/18 at 22:00 Sodium Chloride 90 meq/Potassium Chloride 50 meq/ Potassium Phosphate 13.6 mmol/Magnesium Sulfate 10 meq/ Calcium Gluconate 10 meq/ Multivitamins 10 ml/Chromium/ Copper/Manganese/ Seleni/Zn 1 ml/ Total Parenteral Nutrition/Amino Acids/Dextrose/ Fat Emulsion Intravenous 1,248 ml @ 52 mls/hr TPN CONT IV ; Start 12/06/18 at 22:00; Stop 12/07/18 at 21:59; Status Cancel Sodium Chloride 90 meq/Potassium Chloride 70 meq/ Potassium Phosphate 18 mmol/ Magnesium Sulfate 10 meq/Calcium Gluconate 10 meq/ Multivitamins 10 ml/Chromium/ Copper/Manganese/ Seleni/Zn 1 ml/ Total Parenteral Nutrition/Amino Acids/Dextrose/ Fat Emulsion Intravenous 1,248 ml @ 52 mls/hr TPN CONT IV ; Start 12/06/18 at 22:00; Stop 12/07/18 at 21:59 Active Scripts Active Sertraline Hcl 25 Mg Tablet 50 Mg PO QHS 30 Days Magnesium Chloride 70 Mg Tablet. 64 Mg PO DAILY 30 Days Synthroid (Levothyroxine Sodium) 88 Mcg Tablet 88 Mcg PO DAILY06 30 Days Prednisone 20 Mg Tablet 20 Mg PO DAILY 30 Days Budesonide 0.5 Mg/2 Ml Ampul.neb 0.5 Mg NEB RTBID 30 Days Klor-Con 10 (Potassium Chloride) 10 Meq Tablet.er 1 Tab PO DAILY Lasix (Furosemide) 40 Mg Tablet 1 Tab PO DAILY Aspirin Ec (Aspirin) 81 Mg Tablet. 81 Mg PO DAILYWBKFT 30 Days Duoneb 0.5-3(2.5) Mg/3 Ml (Albuterol/Ipratropium) 3 Ml Ampul.neb 3 Ml NEB RTQID 30 Days Diltiazem 24HR Cd (Diltiazem Hcl) 120 Mg Cap.er.24h 120 Mg PO DAILY 30 Days Reported Hydrocodone-Apap 7.5-325 (Hydrocodone Bit/Acetaminophen) 1 Tab Tablet 1 Tab PO PRN Q6HRS PRN Omeprazole 40 Mg Capsule. 40 Mg PO DAILY Vitals/I & O Vital Sign - Last 24 Hours 12/05/18 12/05/18 12/05/18 12/05/18 14:58 15:46 17:34 18:05 Temp 97.9 97.9 Pulse 84 84 Resp 16 B/P (MAP) 94/60 (71) 94/60 Pulse Ox 96 O2 Delivery Nasal Cannula Nasal Cannula Nasal Cannula O2 Flow Rate 3.0 3.0 3.0 12/05/18 12/05/18 12/05/18 12/05/18 19:35 19:39 19:39 20:00 Temp 97.3 97.3 Pulse 71 Resp 17 B/P (MAP) 92/58 (69) Pulse Ox 93 O2 Delivery Nasal Cannula Nasal Cannula Nasal Cannula Nasal Cannula O2 Flow Rate 3.0 3.0 3.0 3.0 12/05/18 12/05/18 12/05/18 12/06/18 21:16 22:28 23:25 01:08 Temp 97.8 97.8 Pulse 74 Resp 16 B/P (MAP) 91/59 (70) Pulse Ox 93 93 98 98 O2 Delivery Nasal Cannula Nasal Cannula Nasal Cannula Nasal Cannula O2 Flow Rate 3.0 3.0 3.0 3.0 12/06/18 12/06/18 12/06/18 12/06/18 04:00 06:18 06:26 07:58 Temp 97.7 97.7 Pulse 92 77 Resp 17 B/P (MAP) 109/69 (82) 109/58 (75) Pulse Ox 98 98 98 O2 Delivery Nasal Cannula Nasal Cannula Nasal Cannula O2 Flow Rate 3.0 3.0 3.0 12/06/18 12/06/18 12/06/18 12/06/18 10:24 10:55 11:00 11:39 Temp 98.0 98.0 Pulse 58 Resp 18 19 16 B/P (MAP) 119/59 (79) Pulse Ox 98 92 97 88 O2 Delivery Nasal Cannula Nasal Cannula Nasal Cannula Nasal Cannula O2 Flow Rate 3.0 3.0 3.0 3.0 12/06/18 12:00 Pulse 58 B/P (MAP) 119/59 Intake and Output 12/05/18 12/05/18 12/06/18 15:00 23:00 07:00 Intake Total 410 ml 50 ml 200 ml Output Total 150 ml 200 ml Balance 410 ml -100 ml 0 ml Nutrition Consultation Dietary Evaluation: Recommendations by RD: PPN/TPN Comments: continue PPN until diet advancement and tolerated Expected Outcomes/Goals: diet adv/ tolerance- goal ongoing Malnutrition Findings: Body Fat Depletion (Non Severe: Mild Depletion Weight Status: Underweight LOURDES POLLOCK MD December 06, 2018 14:08
--- NOTE | 2018-12-06 14:23 | PDOC ---
Subjective: Subjective: Not doing good today. Therapy present - he said "you know I'm dying." Objective: Objective: On TPN. Vital Signs: Vital Signs Date Time Temp Pulse Resp B/P (MAP) Pulse Ox O2 Delivery O2 Flow Rate FiO2 12/06/18 12:00 58 119/59 12/06/18 11:39 88 Nasal Cannula 3.0 12/06/18 11:00 98.0 16 98.0 Labs: Laboratory Tests Test 12/05/18 14:23 12/05/18 17:06 12/05/18 21:07 12/06/18 07:07 Glucose (Fingerstick) 166 mg/dL 146 mg/dL 142 mg/dL 101 mg/dL Test 12/06/18 10:40 12/06/18 11:23 White Blood Count 14.0 x10^3/uL Red Blood Count 3.08 x10^6/uL Hemoglobin 9.4 g/dL Hematocrit 29.5 % Mean Corpuscular Volume 96 fL Mean Corpuscular Hemoglobin 31 pg Mean Corpuscular Hemoglobin Concent 32 g/dL Red Cell Distribution Width 16.0 % Platelet Count 255 x10^3/uL Neutrophils (%) (Auto) 92 % Lymphocytes (%) (Auto) 3 % Monocytes (%) (Auto) 5 % Eosinophils (%) (Auto) 0 % Basophils (%) (Auto) 0 % Neutrophils # (Auto) 12.8 x10^3uL Lymphocytes # (Auto) 0.4 x10^3/uL Monocytes # (Auto) 0.7 x10^3/uL Eosinophils # (Auto) 0.1 x10^3/uL Basophils # (Auto) 0.0 x10^3/uL Sodium Level 136 mmol/L Potassium Level 3.9 mmol/L Chloride Level 101 mmol/L Carbon Dioxide Level 29 mmol/L Anion Gap 6 Blood Urea Nitrogen 14 mg/dL Creatinine 0.6 mg/dL Estimated GFR (Cockcroft-Gault) 131.0 BUN/Creatinine Ratio 23 Glucose Level 91 mg/dL Calcium Level 8.0 mg/dL Total Bilirubin 0.8 mg/dL Aspartate Amino Transf (AST/SGOT) 22 U/L Alanine Aminotransferase (ALT/SGPT) 31 U/L Alkaline Phosphatase 75 U/L Total Protein 5.2 g/dL Albumin 1.9 g/dL Albumin/Globulin Ratio 0.6 Glucose (Fingerstick) 93 mg/dL PE: GEN: weak LUNGS: NC, wet cough HEART: RRR ABD: some distention, non-tender, soft NEURO/PSYCH: A & O 3 A/P: Recurrent SBO, resp failure -- Plans for full liquids, continue per surgery. TIO ACEVEDO December 06, 2018 14:23
[2018-12-06 15:00] VITALS: BP 124/65
[2018-12-06 19:30] VITALS: BP 121/66
[2018-12-06] MEDS ORDERED: TOTAL PARENTERAL NUTRITION IV SCH ×20 (22:00)
[2018-12-06] MEDS ORDERED: [UNRECOGNIZED DRUG - OTHER] IV SCH ×10 (22:00)
[2018-12-06] MEDS ORDERED: DEXTROSE 70% IV SCH ×20 (22:00)
[2018-12-06] MEDS ORDERED: AMINO ACID IV SCH ×20 (22:00)
[2018-12-06] MEDS ORDERED: [UNRECOGNIZED DRUG - OTHER] IV SCH ×10 (22:00)
[2018-12-06 23:24] VITALS: BP 109/55
[2018-12-07] MEDS: PIPERACILLIN/TAZOBACTAM 3.375 GM in IV NORMAL SALINE 50ML 50 ML IV SCH ×4 (00:35→17:19)
[2018-12-07 03:33] VITALS: BP 110/55
[2018-12-07 04:17] LABS: CALCIUM 7.8 mg/dL (8.5-10.1); CREATININE 0.6 mg/dL (0.7-1.3); MAGNESIUM 2.1 mg/dL (1.8-2.4); POTASSIUM 3.7 mmol/L (3.5-5.1)
[2018-12-07] MEDS: MORPHINE SULFATE 4 MG/ML VIAL. IV PRN (04:43)
[2018-12-07] MEDS: METOPROLOL TARTRATE 5 MG/5 ML VIAL. IVP SCH ×3 (05:58→12:46)
[2018-12-07] MEDS: LEVOTHYROXINE 50 MCG TABLET PO SCH (05:59)
[2018-12-07 07:20] VITALS: BP 141/68
[2018-12-07] MEDS: INSULIN LISPRO 300 UNITS/3 ML INSULN.PEN. SQ SCH ×4 (07:30→21:55)
[2018-12-07] MEDS: BUDESONIDE 0.5 MG/2 ML NEBU. NEB SCH ×2 (08:18→19:43)
[2018-12-07] MEDS: IPRATRPIUM/ALBUTEROL 0.5/2.5MG 3 ML NEBU. NEB SCH ×4 (08:18→19:43)
[2018-12-07] MEDS: LACTOBACILLUS RHAMNOSUS GG 1 CAPSULE. PO SCH ×2 (08:39→21:40)
[2018-12-07] MEDS: FUROSEMIDE 40 MG TABLET. PO SCH (08:39)
[2018-12-07] MEDS: PANTOPRAZOLE 40 MG TABLET.DR. PO SCH (08:39)
[2018-12-07] MEDS: HYDROcodone/APAP 7.5/325MG 1 TAB TABLET PO PRN ×6 (08:40→21:40)
[2018-12-07] MEDS: ASPIRIN ENTERIC COATED 325 MG TABLET.DR. PO SCH (08:40)
--- NOTE | 2018-12-07 09:24 | PDOC ---
PULMONARY PROGRESS NOTES Subjective NOT SOA Vitals Vital Signs Date Time Temp Pulse Resp B/P (MAP) Pulse Ox O2 Delivery O2 Flow Rate FiO2 12/07/18 08:18 94 Nasal Cannula 3.0 12/07/18 07:20 97.7 89 20 141/68 (92) 97.7 ROS: No Nausea, No Chest Pain, No Increase Cough General: Alert, No acute distress HEENT: Other Lungs: Other (decrease bases) Cardiovascular: S1, S2 Abdomen: Soft, Non-tender, Other Neuro Exam: Alert Extremities: No Edema, Other Labs Laboratory Tests Test 12/05/18 14:23 12/05/18 17:06 12/05/18 21:07 12/06/18 07:07 Glucose (Fingerstick) 166 mg/dL (70-99) 146 mg/dL (70-99) 142 mg/dL (70-99) 101 mg/dL (70-99) Test 12/06/18 10:40 12/06/18 11:23 12/06/18 16:46 12/06/18 19:53 White Blood Count 14.0 x10^3/uL (4.0-11.0) Red Blood Count 3.08 x10^6/uL (4.30-5.70) Hemoglobin 9.4 g/dL (13.0-17.5) Hematocrit 29.5 % (39.0-53.0) Mean Corpuscular Volume 96 fL (79-100) Mean Corpuscular Hemoglobin 31 pg (25-35) Mean Corpuscular Hemoglobin Concent 32 g/dL (31-37) Red Cell Distribution Width 16.0 % (11.5-14.5) Platelet Count 255 x10^3/uL (140-400) Neutrophils (%) (Auto) 92 % (31-73) Lymphocytes (%) (Auto) 3 % (24-48) Monocytes (%) (Auto) 5 % (0-9) Eosinophils (%) (Auto) 0 % (0-3) Basophils (%) (Auto) 0 % (0-3) Neutrophils # (Auto) 12.8 x10^3uL (1.8-7.7) Lymphocytes # (Auto) 0.4 x10^3/uL (1.0-4.8) Monocytes # (Auto) 0.7 x10^3/uL (0.0-1.1) Eosinophils # (Auto) 0.1 x10^3/uL (0.0-0.7) Basophils # (Auto) 0.0 x10^3/uL (0.0-0.2) Sodium Level 136 mmol/L (136-145) Potassium Level 3.9 mmol/L (3.5-5.1) Chloride Level 101 mmol/L (98-107) Carbon Dioxide Level 29 mmol/L (21-32) Anion Gap 6 (6-14) Blood Urea Nitrogen 14 mg/dL (8-26) Creatinine 0.6 mg/dL (0.7-1.3) Estimated GFR (Cockcroft-Gault) 131.0 BUN/Creatinine Ratio 23 (6-20) Glucose Level 91 mg/dL (70-99) Calcium Level 8.0 mg/dL (8.5-10.1) Total Bilirubin 0.8 mg/dL (0.2-1.0) Aspartate Amino Transf (AST/SGOT) 22 U/L (15-37) Alanine Aminotransferase (ALT/SGPT) 31 U/L (16-63) Alkaline Phosphatase 75 U/L (46-116) Total Protein 5.2 g/dL (6.4-8.2) Albumin 1.9 g/dL (3.4-5.0) Albumin/Globulin Ratio 0.6 (1.0-1.7) Glucose (Fingerstick) 93 mg/dL (70-99) 80 mg/dL (70-99) 140 mg/dL (70-99) Test 12/07/18 03:56 12/07/18 07:22 Sodium Level 133 mmol/L (136-145) Potassium Level 3.7 mmol/L (3.5-5.1) Chloride Level 101 mmol/L (98-107) Carbon Dioxide Level 26 mmol/L (21-32) Anion Gap 6 (6-14) Blood Urea Nitrogen 14 mg/dL (8-26) Creatinine 0.6 mg/dL (0.7-1.3) Estimated GFR (Cockcroft-Gault) 131.0 Glucose Level 158 mg/dL (70-99) Calcium Level 7.8 mg/dL (8.5-10.1) Phosphorus Level 2.0 mg/dL (2.6-4.7) Magnesium Level 2.1 mg/dL (1.8-2.4) Triglycerides Level 137 mg/dL (0-150) Glucose (Fingerstick) 153 mg/dL (70-99) Laboratory Tests Test 12/06/18 10:40 12/06/18 11:23 12/06/18 16:46 12/06/18 19:53 White Blood Count 14.0 x10^3/uL (4.0-11.0) Red Blood Count 3.08 x10^6/uL (4.30-5.70) Hemoglobin 9.4 g/dL (13.0-17.5) Hematocrit 29.5 % (39.0-53.0) Mean Corpuscular Volume 96 fL (79-100) Mean Corpuscular Hemoglobin 31 pg (25-35) Mean Corpuscular Hemoglobin Concent 32 g/dL (31-37) Red Cell Distribution Width 16.0 % (11.5-14.5) Platelet Count 255 x10^3/uL (140-400) Neutrophils (%) (Auto) 92 % (31-73) Lymphocytes (%) (Auto) 3 % (24-48) Monocytes (%) (Auto) 5 % (0-9) Eosinophils (%) (Auto) 0 % (0-3) Basophils (%) (Auto) 0 % (0-3) Neutrophils # (Auto) 12.8 x10^3uL (1.8-7.7) Lymphocytes # (Auto) 0.4 x10^3/uL (1.0-4.8) Monocytes # (Auto) 0.7 x10^3/uL (0.0-1.1) Eosinophils # (Auto) 0.1 x10^3/uL (0.0-0.7) Basophils # (Auto) 0.0 x10^3/uL (0.0-0.2) Sodium Level 136 mmol/L (136-145) Potassium Level 3.9 mmol/L (3.5-5.1) Chloride Level 101 mmol/L (98-107) Carbon Dioxide Level 29 mmol/L (21-32) Anion Gap 6 (6-14) Blood Urea Nitrogen 14 mg/dL (8-26) Creatinine 0.6 mg/dL (0.7-1.3) Estimated GFR (Cockcroft-Gault) 131.0 BUN/Creatinine Ratio 23 (6-20) Glucose Level 91 mg/dL (70-99) Calcium Level 8.0 mg/dL (8.5-10.1) Total Bilirubin 0.8 mg/dL (0.2-1.0) Aspartate Amino Transf (AST/SGOT) 22 U/L (15-37) Alanine Aminotransferase (ALT/SGPT) 31 U/L (16-63) Alkaline Phosphatase 75 U/L (46-116) Total Protein 5.2 g/dL (6.4-8.2) Albumin 1.9 g/dL (3.4-5.0) Albumin/Globulin Ratio 0.6 (1.0-1.7) Glucose (Fingerstick) 93 mg/dL (70-99) 80 mg/dL (70-99) 140 mg/dL (70-99) Test 12/07/18 03:56 12/07/18 07:22 Sodium Level 133 mmol/L (136-145) Potassium Level 3.7 mmol/L (3.5-5.1) Chloride Level 101 mmol/L (98-107) Carbon Dioxide Level 26 mmol/L (21-32) Anion Gap 6 (6-14) Blood Urea Nitrogen 14 mg/dL (8-26) Creatinine 0.6 mg/dL (0.7-1.3) Estimated GFR (Cockcroft-Gault) 131.0 Glucose Level 158 mg/dL (70-99) Calcium Level 7.8 mg/dL (8.5-10.1) Phosphorus Level 2.0 mg/dL (2.6-4.7) Magnesium Level 2.1 mg/dL (1.8-2.4) Triglycerides Level 137 mg/dL (0-150) Glucose (Fingerstick) 153 mg/dL (70-99) Medications Active Scripts Medications Dose Route/Sig Max Daily Dose Days Date Category Sertraline Hcl 25 Mg Tablet 50 Mg PO QHS 10/01/18 Rx Magnesium Chloride 70 Mg Tablet.dr 64 Mg PO DAILY 08/30/18 Rx Synthroid (Levothyroxine Sodium) 88 Mcg Tablet 88 Mcg PO DAILY06 08/30/18 Rx Prednisone 20 Mg Tablet 20 Mg PO DAILY 08/30/18 Rx Budesonide 0.5 Mg/2 Ml Ampul.neb 0.5 Mg NEB RTBID 30 08/30/18 Rx Hydrocodone-Apap 7.5-325 (Hydrocodone Bit/Acetaminophen) 1 Tab Tablet 1 Tab PO PRN Q6HRS PRN 08/26/18 Reported Omeprazole 40 Mg Capsule. 40 Mg PO DAILY 08/26/18 Reported Klor-Con 10 (Potassium Chloride) 10 Meq Tablet.er 1 Tab PO DAILY 07/16/18 Rx Lasix (Furosemide) 40 Mg Tablet 1 Tab PO DAILY 07/16/18 Rx Aspirin Ec (Aspirin) 81 Mg Tablet. 81 Mg PO DAILYWBKFT 07/16/18 Rx Duoneb 0.5-3(2.5) Mg/3 Ml (Albuterol/Ipratropium) 3 Ml Ampul.neb 3 Ml NEB RTQID 07/01/18 Rx Diltiazem 24HR Cd (Diltiazem Hcl) 120 Mg Cap.er.24h 120 Mg PO DAILY 07/01/[address] chest 1. Bibasilar lung consolidation changes likely pneumonia or infiltrates with underlying diffuse bibasilar reticular interstitial lung markings likely idiopathic pulmonary fibrosis. 2. Coronary artery calcifications. 3. Mild compression changes of T9, T10, T12 vertebral bodies. 4. Subcentimeter hypodensity identified in the right lobe of the liver, difficult to characterize similar to prior exam. Impression . IMPRESSION: 1. Acute hypoxemic respiratory failure. multi-factorial 2. Abnormal x-ray compatible with bilateral pulmonary infiltrates, suspect combination of, Pneumonia and acute lung injury from possible aspiration./ underlying severe honeycombing/ fibrosis ct chest 09/21, extensive basal fibrosis 3. Aspiration pneumonia. 4. Small-bowel obstruction. 5. Dysphagia. 6. Leukocytosis. 7. Bacteremia. 8. Atrial fibrillation. 9. Gwltn-xt-iotzfza heart failure. BLOOD CULTURE LC Final Final report BLD CULT RESULT 1 Final Comment Streptococcus salivarius group ANTIMICROBIAL SUSCEPTIBILITY Final Comment S = Susceptible; I = Intermediate; R = Resistant P = Positive; N = Negative MICS are expressed in micrograms per mL Antibiotic RSLT#1 RSLT#2 RSLT#3 RSLT#4 Ceftriaxone S<=0.25 Chloramphenicol S =2 Clindamycin S<=0.06 Erythromycin R> 0.5 Penicillin S =0.12 Vancomycin S =0.5 Performed at: - [facility] [address], [place], [place] [id number] Pattern Perforating Machine Operator: ANGELES Camargo MD, Phone: [phone] Plan . ANTIBX PER ID ADVANCE DIET PER SURGERY OFF STEROIDS UP TO CHAIR CONTINUE SUPPORT PT ARLINE CONSIDER SKILL TRANSFER JON EDWARDS MD December 07, 2018 09:24
--- NOTE | 2018-12-07 09:41 | PDOC ---
Infectious Disease Note Subjective Subjective Feeling a little bit better this morning Enjoying some Cream of Wheat for breakfast Still on TPN c/o generalized pain Denies N/V O2 down to 2L No fevers/chills Vital Sign Vital Signs Vital Signs Date Time Temp Pulse Resp B/P (MAP) Pulse Ox O2 Delivery O2 Flow Rate FiO2 12/07/18 08:18 94 Nasal Cannula 3.0 12/07/18 07:20 97.7 89 20 141/68 (92) 97.7 Physical Exam PHYSICAL EXAM GENERAL: Propped up in bed, looks better, eating HEENT: Oral cavity and pharynx dry. NECK: Supple, no JVD. LUNGS: Improved aeration, nonlabored HEART: S1, S2. ABDOMEN: Soft, tender, BS present EXTREMITIES: Without clubbing or cyanosis. Trace edema BLE NEUROLOGIC: Alert, responding appropriately SKIN: Without generalized signs of rash. RUE-PICC (11/30) clean Labs Lab Laboratory Tests Test 12/06/18 10:40 12/06/18 11:23 12/06/18 16:46 12/06/18 19:53 White Blood Count 14.0 x10^3/uL (4.0-11.0) Red Blood Count 3.08 x10^6/uL (4.30-5.70) Hemoglobin 9.4 g/dL (13.0-17.5) Hematocrit 29.5 % (39.0-53.0) Mean Corpuscular Volume 96 fL (79-100) Mean Corpuscular Hemoglobin 31 pg (25-35) Mean Corpuscular Hemoglobin Concent 32 g/dL (31-37) Red Cell Distribution Width 16.0 % (11.5-14.5) Platelet Count 255 x10^3/uL (140-400) Neutrophils (%) (Auto) 92 % (31-73) Lymphocytes (%) (Auto) 3 % (24-48) Monocytes (%) (Auto) 5 % (0-9) Eosinophils (%) (Auto) 0 % (0-3) Basophils (%) (Auto) 0 % (0-3) Neutrophils # (Auto) 12.8 x10^3uL (1.8-7.7) Lymphocytes # (Auto) 0.4 x10^3/uL (1.0-4.8) Monocytes # (Auto) 0.7 x10^3/uL (0.0-1.1) Eosinophils # (Auto) 0.1 x10^3/uL (0.0-0.7) Basophils # (Auto) 0.0 x10^3/uL (0.0-0.2) Sodium Level 136 mmol/L (136-145) Potassium Level 3.9 mmol/L (3.5-5.1) Chloride Level 101 mmol/L (98-107) Carbon Dioxide Level 29 mmol/L (21-32) Anion Gap 6 (6-14) Blood Urea Nitrogen 14 mg/dL (8-26) Creatinine 0.6 mg/dL (0.7-1.3) Estimated GFR (Cockcroft-Gault) 131.0 BUN/Creatinine Ratio 23 (6-20) Glucose Level 91 mg/dL (70-99) Calcium Level 8.0 mg/dL (8.5-10.1) Total Bilirubin 0.8 mg/dL (0.2-1.0) Aspartate Amino Transf (AST/SGOT) 22 U/L (15-37) Alanine Aminotransferase (ALT/SGPT) 31 U/L (16-63) Alkaline Phosphatase 75 U/L (46-116) Total Protein 5.2 g/dL (6.4-8.2) Albumin 1.9 g/dL (3.4-5.0) Albumin/Globulin Ratio 0.6 (1.0-1.7) Glucose (Fingerstick) 93 mg/dL (70-99) 80 mg/dL (70-99) 140 mg/dL (70-99) Test 12/07/18 03:56 12/07/18 07:22 Sodium Level 133 mmol/L (136-145) Potassium Level 3.7 mmol/L (3.5-5.1) Chloride Level 101 mmol/L (98-107) Carbon Dioxide Level 26 mmol/L (21-32) Anion Gap 6 (6-14) Blood Urea Nitrogen 14 mg/dL (8-26) Creatinine 0.6 mg/dL (0.7-1.3) Estimated GFR (Cockcroft-Gault) 131.0 Glucose Level 158 mg/dL (70-99) Calcium Level 7.8 mg/dL (8.5-10.1) Phosphorus Level 2.0 mg/dL (2.6-4.7) Magnesium Level 2.1 mg/dL (1.8-2.4) Triglycerides Level 137 mg/dL (0-150) Glucose (Fingerstick) 153 mg/dL (70-99) Micro Objective Assessment Bacteremia from 11/24 - (gram neg coccobacilli in 1/4 bottles) Strep salivarius Aspiration pneumonia SBO Leukocytosis , possibly reactive steroids AFib CHF Pulmonary fibrosis Plan Plan of Care Continue Zosyn (restarted 12/04) .pt was on a day of Augmentin , was on Zosyn prior Oral care Maintain aspiration precautions Supportive care PT/OT Pt seen and examined, agree with above and plan laid out by OBED SUTTON APRN December 07, 2018 09:41 CLARENCE MCKEON MD December 07, 2018 11:25
--- NOTE | 2018-12-07 09:58 | PDOC ---
SURGICAL PROGRESS NOTE Subjective some pain denies nausea tired Vital Signs Vital Signs Date Time Temp Pulse Resp B/P (MAP) Pulse Ox O2 Delivery O2 Flow Rate FiO2 12/07/18 08:18 94 Nasal Cannula 3.0 12/07/18 07:20 97.7 89 20 141/68 (92) 97.7 I&O Intake and Output 12/07/18 07:00 Intake Total 135 ml Output Total 450 ml Balance -315 ml Intake Oral 135 ml Output Urine Total 450 ml General: Alert, Oriented X3, Cooperative, No acute distress Abdomen: Soft, Other (ttp on exam) Labs Laboratory Tests Test 12/05/18 14:23 12/05/18 17:06 12/05/18 21:07 12/06/18 07:07 Glucose (Fingerstick) 166 mg/dL (70-99) 146 mg/dL (70-99) 142 mg/dL (70-99) 101 mg/dL (70-99) Test 12/06/18 10:40 12/06/18 11:23 12/06/18 16:46 12/06/18 19:53 White Blood Count 14.0 x10^3/uL (4.0-11.0) Red Blood Count 3.08 x10^6/uL (4.30-5.70) Hemoglobin 9.4 g/dL (13.0-17.5) Hematocrit 29.5 % (39.0-53.0) Mean Corpuscular Volume 96 fL (79-100) Mean Corpuscular Hemoglobin 31 pg (25-35) Mean Corpuscular Hemoglobin Concent 32 g/dL (31-37) Red Cell Distribution Width 16.0 % (11.5-14.5) Platelet Count 255 x10^3/uL (140-400) Neutrophils (%) (Auto) 92 % (31-73) Lymphocytes (%) (Auto) 3 % (24-48) Monocytes (%) (Auto) 5 % (0-9) Eosinophils (%) (Auto) 0 % (0-3) Basophils (%) (Auto) 0 % (0-3) Neutrophils # (Auto) 12.8 x10^3uL (1.8-7.7) Lymphocytes # (Auto) 0.4 x10^3/uL (1.0-4.8) Monocytes # (Auto) 0.7 x10^3/uL (0.0-1.1) Eosinophils # (Auto) 0.1 x10^3/uL (0.0-0.7) Basophils # (Auto) 0.0 x10^3/uL (0.0-0.2) Sodium Level 136 mmol/L (136-145) Potassium Level 3.9 mmol/L (3.5-5.1) Chloride Level 101 mmol/L (98-107) Carbon Dioxide Level 29 mmol/L (21-32) Anion Gap 6 (6-14) Blood Urea Nitrogen 14 mg/dL (8-26) Creatinine 0.6 mg/dL (0.7-1.3) Estimated GFR (Cockcroft-Gault) 131.0 BUN/Creatinine Ratio 23 (6-20) Glucose Level 91 mg/dL (70-99) Calcium Level 8.0 mg/dL (8.5-10.1) Total Bilirubin 0.8 mg/dL (0.2-1.0) Aspartate Amino Transf (AST/SGOT) 22 U/L (15-37) Alanine Aminotransferase (ALT/SGPT) 31 U/L (16-63) Alkaline Phosphatase 75 U/L (46-116) Total Protein 5.2 g/dL (6.4-8.2) Albumin 1.9 g/dL (3.4-5.0) Albumin/Globulin Ratio 0.6 (1.0-1.7) Glucose (Fingerstick) 93 mg/dL (70-99) 80 mg/dL (70-99) 140 mg/dL (70-99) Test 12/07/18 03:56 12/07/18 07:22 Sodium Level 133 mmol/L (136-145) Potassium Level 3.7 mmol/L (3.5-5.1) Chloride Level 101 mmol/L (98-107) Carbon Dioxide Level 26 mmol/L (21-32) Anion Gap 6 (6-14) Blood Urea Nitrogen 14 mg/dL (8-26) Creatinine 0.6 mg/dL (0.7-1.3) Estimated GFR (Cockcroft-Gault) 131.0 Glucose Level 158 mg/dL (70-99) Calcium Level 7.8 mg/dL (8.5-10.1) Phosphorus Level 2.0 mg/dL (2.6-4.7) Magnesium Level 2.1 mg/dL (1.8-2.4) Triglycerides Level 137 mg/dL (0-150) Glucose (Fingerstick) 153 mg/dL (70-99) Laboratory Tests Test 12/06/18 10:40 12/06/18 11:23 12/06/18 16:46 12/06/18 19:53 White Blood Count 14.0 x10^3/uL (4.0-11.0) Red Blood Count 3.08 x10^6/uL (4.30-5.70) Hemoglobin 9.4 g/dL (13.0-17.5) Hematocrit 29.5 % (39.0-53.0) Mean Corpuscular Volume 96 fL (79-100) Mean Corpuscular Hemoglobin 31 pg (25-35) Mean Corpuscular Hemoglobin Concent 32 g/dL (31-37) Red Cell Distribution Width 16.0 % (11.5-14.5) Platelet Count 255 x10^3/uL (140-400) Neutrophils (%) (Auto) 92 % (31-73) Lymphocytes (%) (Auto) 3 % (24-48) Monocytes (%) (Auto) 5 % (0-9) Eosinophils (%) (Auto) 0 % (0-3) Basophils (%) (Auto) 0 % (0-3) Neutrophils # (Auto) 12.8 x10^3uL (1.8-7.7) Lymphocytes # (Auto) 0.4 x10^3/uL (1.0-4.8) Monocytes # (Auto) 0.7 x10^3/uL (0.0-1.1) Eosinophils # (Auto) 0.1 x10^3/uL (0.0-0.7) Basophils # (Auto) 0.0 x10^3/uL (0.0-0.2) Sodium Level 136 mmol/L (136-145) Potassium Level 3.9 mmol/L (3.5-5.1) Chloride Level 101 mmol/L (98-107) Carbon Dioxide Level 29 mmol/L (21-32) Anion Gap 6 (6-14) Blood Urea Nitrogen 14 mg/dL (8-26) Creatinine 0.6 mg/dL (0.7-1.3) Estimated GFR (Cockcroft-Gault) 131.0 BUN/Creatinine Ratio 23 (6-20) Glucose Level 91 mg/dL (70-99) Calcium Level 8.0 mg/dL (8.5-10.1) Total Bilirubin 0.8 mg/dL (0.2-1.0) Aspartate Amino Transf (AST/SGOT) 22 U/L (15-37) Alanine Aminotransferase (ALT/SGPT) 31 U/L (16-63) Alkaline Phosphatase 75 U/L (46-116) Total Protein 5.2 g/dL (6.4-8.2) Albumin 1.9 g/dL (3.4-5.0) Albumin/Globulin Ratio 0.6 (1.0-1.7) Glucose (Fingerstick) 93 mg/dL (70-99) 80 mg/dL (70-99) 140 mg/dL (70-99) Test 12/07/18 03:56 12/07/18 07:22 Sodium Level 133 mmol/L (136-145) Potassium Level 3.7 mmol/L (3.5-5.1) Chloride Level 101 mmol/L (98-107) Carbon Dioxide Level 26 mmol/L (21-32) Anion Gap 6 (6-14) Blood Urea Nitrogen 14 mg/dL (8-26) Creatinine 0.6 mg/dL (0.7-1.3) Estimated GFR (Cockcroft-Gault) 131.0 Glucose Level 158 mg/dL (70-99) Calcium Level 7.8 mg/dL (8.5-10.1) Phosphorus Level 2.0 mg/dL (2.6-4.7) Magnesium Level 2.1 mg/dL (1.8-2.4) Triglycerides Level 137 mg/dL (0-150) Glucose (Fingerstick) 153 mg/dL (70-99) Problem List Problems Medical Problems: (1) Pneumonia Status: Acute Assessment/Plan supportive measures REMBERTO WINSTON APRN December 07, 2018 09:58
--- NOTE | 2018-12-07 10:07 | PDOC ---
Subjective: Subjective: No stool, passing a little gas. Does not offer much information, speaks quietly, takes extended time to answer. Objective: Vital Signs: Vital Signs Date Time Temp Pulse Resp B/P (MAP) Pulse Ox O2 Delivery O2 Flow Rate FiO2 12/07/18 08:18 94 Nasal Cannula 3.0 12/07/18 07:20 97.7 89 20 141/68 (92) 97.7 Labs: Laboratory Tests Test 12/06/18 10:40 12/06/18 11:23 12/06/18 16:46 12/06/18 19:53 White Blood Count 14.0 x10^3/uL Red Blood Count 3.08 x10^6/uL Hemoglobin 9.4 g/dL Hematocrit 29.5 % Mean Corpuscular Volume 96 fL Mean Corpuscular Hemoglobin 31 pg Mean Corpuscular Hemoglobin Concent 32 g/dL Red Cell Distribution Width 16.0 % Platelet Count 255 x10^3/uL Neutrophils (%) (Auto) 92 % Lymphocytes (%) (Auto) 3 % Monocytes (%) (Auto) 5 % Eosinophils (%) (Auto) 0 % Basophils (%) (Auto) 0 % Neutrophils # (Auto) 12.8 x10^3uL Lymphocytes # (Auto) 0.4 x10^3/uL Monocytes # (Auto) 0.7 x10^3/uL Eosinophils # (Auto) 0.1 x10^3/uL Basophils # (Auto) 0.0 x10^3/uL Sodium Level 136 mmol/L Potassium Level 3.9 mmol/L Chloride Level 101 mmol/L Carbon Dioxide Level 29 mmol/L Anion Gap 6 Blood Urea Nitrogen 14 mg/dL Creatinine 0.6 mg/dL Estimated GFR (Cockcroft-Gault) 131.0 BUN/Creatinine Ratio 23 Glucose Level 91 mg/dL Calcium Level 8.0 mg/dL Total Bilirubin 0.8 mg/dL Aspartate Amino Transf (AST/SGOT) 22 U/L Alanine Aminotransferase (ALT/SGPT) 31 U/L Alkaline Phosphatase 75 U/L Total Protein 5.2 g/dL Albumin 1.9 g/dL Albumin/Globulin Ratio 0.6 Glucose (Fingerstick) 93 mg/dL 80 mg/dL 140 mg/dL Test 12/07/18 03:56 12/07/18 07:22 Sodium Level 133 mmol/L Potassium Level 3.7 mmol/L Chloride Level 101 mmol/L Carbon Dioxide Level 26 mmol/L Anion Gap 6 Blood Urea Nitrogen 14 mg/dL Creatinine 0.6 mg/dL Estimated GFR (Cockcroft-Gault) 131.0 Glucose Level 158 mg/dL Calcium Level 7.8 mg/dL Phosphorus Level 2.0 mg/dL Magnesium Level 2.1 mg/dL Triglycerides Level 137 mg/dL Glucose (Fingerstick) 153 mg/dL PE: GEN: NAD - eating breakfast LUNGS: NC ABD: quiet, soft, non-tender NEURO/PSYCH: A & O 3, quiet A/P: Recurrent SBO, resp failure, depression -- Continue same per GI. TIO ACEVEDO December 07, 2018 10:07
--- NOTE | 2018-12-07 11:00 | NUR ---
[facility] faxed updates to [facility] with current TPN formula. RN reported pt might dc today if he tolerates his diet. [facility] will be working on getting TPN. Will continue to follow.
--- NOTE | 2018-12-07 11:10 | NUR ---
Clarified that Mik Mora was aware pt was having multiple runs of 3 V-tach. No new orders will continue to monitor.
[2018-12-07 11:14] VITALS: BP 98/58
[2018-12-07] MEDS ORDERED: AMOX1TAB61 PO (12:47)
[2018-12-07] MEDS ORDERED: Tpn Per Pharmacy MC (12:47)
[2018-12-07] MEDS ORDERED: HYDR-2765 PO (12:48)
--- NOTE | 2018-12-07 12:49 | SNU/HH DC ---
DISCHARGE ORDERS DISCHARGE INFORMATION: FINAL DIAGNOSIS Problems Medical Problems: (1) Pneumonia Status: Acute CONDITION ON DISCHARGE: Stable CODE STATUS: Code Status: Full PRISON: SNF STAY <30 DAYS: Yes POST DISCHARGE ORDERS: ACTIVITY ORDERS: Activity as tolerated WEIGHT BEARING STATUS: No restrictions BATHING ORDERS: Shower-keep dressing dry, No Tub Bath until see DIET AFTER DISCHARGE: mechanical soft WOUND/INCISION CARE: Change dressing CHECKS AFTER DISCHARGE: CHECKS AFTER DISCHARGE: Check blood press - daily TREATMENT/EQUIPMENT ORDERS: ADAPTIVE EQUIPMENT NEEDED: None RESPIRATORY EQUIPMENT NEEDED: Oxygen, Nebulizer Physical Therapy For: Evalulation/Treatment Occupational Therapy For: Evaluation/Treatment Speech Language Pathology For: Evaluation/Treatment DISCHARGE MEDICATIONS: Home Meds Active Scripts Hydrocodone Bit/Acetaminophen (HYDROCODONE-APAP 7.5-325 ) 1 Tab Tablet, 1 TAB PO PRN Q6HRS PRN for PAIN for 30 Days, #90 TAB 0 Refills Prov:LOURDES POLLOCK MD 12/07/18 Amoxicillin/Potassium Clav (AUGMENTIN 875-125 TABLET) 1 Each Tablet, 1 TAB PO BID for pna, #20 TAB Prov:LOURDES POLLOCK MD 12/07/18 [Tpn Per Pharmacy] 1 EACH EACH No Conflict Check, 1 EACH MC PRN DAILY for Malnutrition for 30 Days, #30 Prov:LOURDES POLLOCK MD 12/07/18 Sertraline Hcl (SERTRALINE HCL) 25 Mg Tablet, 50 MG PO QHS for depression for 30 Days, #60 TAB Prov:LOURDES POLLOCK MD 10/01/18 Magnesium Chloride (Magnesium Chloride) 70 Mg Tablet.dr, 64 MG PO DAILY for SVT for 30 Days, #30 TAB.SR 3 Refills Prov:LOURDES POLLOCK MD 08/30/18 Levothyroxine Sodium (SYNTHROID) 88 Mcg Tablet, 88 MCG PO DAILY06 for low thyroid for 30 Days, #30 TAB 3 Refills Prov:LOURDES POLLOCK MD 08/30/18 Prednisone (PREDNISONE) 20 Mg Tablet, 20 MG PO DAILY for IPF for 30 Days, #30 TAB 3 Refills Prov:LOURDES POLLOCK MD 08/30/18 Budesonide (BUDESONIDE) 0.5 Mg/2 Ml Ampul.neb, 0.5 MG NEB RTBID for copd for 30 Days, #60 EACH 3 Refills Prov:LOURDES POLLOCK MD 08/30/18 Potassium Chloride (KLOR-CON 10) 10 Meq Tablet.er, 1 TAB PO DAILY for chf, #30 TAB 5 Refills Prov:LOURDES POLLOCK MD 07/16/18 Furosemide (LASIX) 40 Mg Tablet, 1 TAB PO DAILY for chf, #30 TAB 5 Refills Prov:LOURDES POLLOCK MD 07/16/18 Aspirin (ASPIRIN EC) 81 Mg Tablet., 81 MG PO DAILYWBKFT for afib for 30 Days, #30 TAB.SR Prov:LOURDES POLLOCK MD 07/16/18 Ipratropium/Albuterol Sulfate (DUONEB 0.5-3(2.5) MG/3 ML) 3 Ml Ampul.neb, 3 ML NEB RTQID for breathing for 30 Days, #120 EACH Prov:Steve DALTON MD 07/01/18 Diltiazem Hcl (DILTIAZEM 24HR CD) 120 Mg Cap.er.24h, 120 MG PO DAILY for afib for 30 Days, #30 CAP.SR 6 Refills Prov:Steve DALTON MD 07/01/18 Reported Medications Omeprazole (OMEPRAZOLE) 40 Mg Capsule.dr, 40 MG PO DAILY for GERD, CAP 08/26/18 LOURDES POLLOCK MD December 07, 2018 12:49
[2018-12-07] MEDS ORDERED: SODIUM PHOSPHATE 20 MMOL in IV DEXTROSE 5% 250 ML IV ONE (14:30)
--- NOTE | 2018-12-07 14:48 | DS ---
DATE OF DISCHARGE: 12/07/2018 ADMITTING DIAGNOSIS: Small-bowel obstruction. DISMISSAL DIAGNOSIS: Small-bowel obstruction. SECONDARY DIAGNOSES: 1. Facility-acquired pneumonia. 2. Esophagitis. 3. Chronic anemia. 4. Hyperglycemia. 5. Coronary artery disease. 6. Compression fracture of spine. 7. Contusion of left eye. 8. History of atrial fibrillation. 9. Pulmonary fibrosis. 10. Severe protein malnutrition. 11. Positive blood cultures/sepsis. HISTORY OF PRESENT ILLNESS AND HOSPITAL COURSE: This patient is a 78-year-old male who was convalescing and rehabbing at [facility]. He has had two separate occasions of admissions for acute small-bowel obstruction. He has had surgery on the initial admission prior to a rehab stay and was slow to improve with postoperative ileus. He improved to the point where he was able to tolerate diet and began having bowel movements and passing gas, but had recurrent symptoms after several weeks at [facility]. He was admitted, with NG tube decompression was accomplished. The patient is a poor surgical candidate, and he began having flatus and tolerating diet again. Therefore, he was discharged back to [facility]. On this third occasion, the patient began having nausea, vomiting and found to have small-bowel obstruction continued. Therefore, he was admitted, plans for repeat surgery were made, but prior to this the patient developed a fever and had positive blood cultures with evidence of pneumonia on CT scan of the chest. He was treated with IV antibiotics for 1 week, and the patient's bowel rest did improve his bowel function, but he was found to be significantly debilitated and unable to care for himself. The plans were made for the patient to be back to [facility] for PT, OT modalities and ongoing TPN as well as p.o. antibiotics to treat pneumonia prior to possible more definitive surgery on his recurrent small-bowel obstruction. At this point, the patient's nutritional status and physical status are significantly debilitated, and his prognosis is guarded. Discussions about palliative care were done with the patient. The patient at this point declines palliative care efforts. Therefore, we will continue TPN and proceed with new care. ADDENDUM The patient's discharge was delayed due to difficulty in obtaining TPN at residential facility. Plans for discharge today were made. The patient did have a bowel movement prior to discharge, improving his condition. The plan will continue as previously dictated. LOURDES POLLOCK MD DR: ABRAHAM/ralph JOB#: [id number] / [id number]
[2018-12-07] MEDS: TPN PER PHARMACY MC SCH (14:59)
--- NOTE | 2018-12-07 14:59 | NUR ---
Pharmacy TPN Dosing Note S: JOHN ROBBINS is a 78 year old M Currently receiving Central Continuous TPN started 11/30/18 B:Pertinent PMH: SBO, s/p surgery with slow improvement in PO intake Height: 5 feet, 10 inches Weight: 54.1 kg Current diet: CLD LABS: Sodium: 133 Potassium: 3.7 Chloride: 101 Calcium: 7.8 Corrected Calcium: 9.48 Magnesium: 2.1 CO2: 26 SCr: 0.6 Glucose: 153, 240 Albumin: 1.9 AST: 22 ALT: 31 TPN FORMULA: TPN TYPE: Central Continuous AMINO ACIDS: 60 gm DEXTROSE: 195 gm LIPIDS: 20 gm SODIUM CHLORIDE: 90 mEq SODIUM PHOSPHATE: 10 mmol POTASSIUM CHLORIDE: 70 mEq POTASSIUM PHOSPHATE: 18 mmol MAGNESIUM: 6 mEq MULTIPLE VITAMIN: 10 ml TRACE ELEMENTS: 1 ml TPN PLAN: -Serum phos low, add NaPhos to TPN. -Remove calcium gluconate due to phos addition. -Triglycerides 137 - okay to continue same lipid content. -BMP, mag, phos per protocol tomorrow. R: Continue TPN @ current rate and above formula. Will monitor electrolytes, glucose, and tolerance to TPN. TERRIE LLANOS, [facility], 12/07/18 [id number]
[2018-12-07 15:20] VITALS: BP 108/56
--- NOTE | 2018-12-07 15:51 | NUR ---
[facility] following pt. Orders faxed to [facility] but they are unable to take pt today. TPN and pt's room will be ready tomorrow. Discussed with RN.
[2018-12-07] MEDS ORDERED: METO25TA4 PO (17:34)
--- NOTE | 2018-12-07 17:35 | SNU/HH DC ---
DISCHARGE ORDERS DISCHARGE INFORMATION: DISCHARGE DATE: December 08, 2018 FINAL DIAGNOSIS Problems Medical Problems: (1) Pneumonia Status: Acute CONDITION ON DISCHARGE: Stable CODE STATUS: Code Status: Full POST DISCHARGE ORDERS: ACTIVITY ORDERS: Activity as tolerated WEIGHT BEARING STATUS: No restrictions BATHING ORDERS: Shower-keep dressing dry, No Tub Bath until see DIET AFTER DISCHARGE: mechanical soft WOUND/INCISION CARE: Change dressing CHECKS AFTER DISCHARGE: CHECKS AFTER DISCHARGE: Check blood press - daily TREATMENT/EQUIPMENT ORDERS: ADAPTIVE EQUIPMENT NEEDED: None RESPIRATORY EQUIPMENT NEEDED: Oxygen, Nebulizer Physical Therapy For: Evalulation/Treatment Occupational Therapy For: Evaluation/Treatment Speech Language Pathology For: Evaluation/Treatment DISCHARGE MEDICATIONS: Home Meds Active Scripts Metoprolol Tartrate (METOPROLOL TARTRATE) 25 Mg Tablet, 12.5 MG PO BID for SVT for 30 Days, #30 TAB Prov:LOURDES POLLOCK MD 12/07/18 Hydrocodone Bit/Acetaminophen (HYDROCODONE-APAP 7.5-325 ) 1 Tab Tablet, 1 TAB PO PRN Q6HRS PRN for PAIN for 30 Days, #90 TAB 0 Refills Prov:LOURDES POLLOCK MD 12/07/18 Amoxicillin/Potassium Clav (AUGMENTIN 875-125 TABLET) 1 Each Tablet, 1 TAB PO BID for pna, #20 TAB Prov:LOURDES POLLOCK MD 12/07/18 [Tpn Per Pharmacy] 1 EACH EACH No Conflict Check, 1 EACH MC PRN DAILY for Malnutrition for 30 Days, #30 Prov:LOURDES POLLOCK MD 12/07/18 Sertraline Hcl (SERTRALINE HCL) 25 Mg Tablet, 50 MG PO QHS for depression for 30 Days, #60 TAB Prov:LOURDES POLLOCK MD 10/01/18 Magnesium Chloride (Magnesium Chloride) 70 Mg Tablet.dr, 64 MG PO DAILY for SVT for 30 Days, #30 TAB.SR 3 Refills Prov:LOURDES POLLOCK MD 08/30/18 Levothyroxine Sodium (SYNTHROID) 88 Mcg Tablet, 88 MCG PO DAILY06 for low thyroid for 30 Days, #30 TAB 3 Refills Prov:LOURDES POLLOCK MD 08/30/18 Prednisone (PREDNISONE) 20 Mg Tablet, 20 MG PO DAILY for IPF for 30 Days, #30 TAB 3 Refills Prov:LOURDES POLLOCK MD 08/30/18 Budesonide (BUDESONIDE) 0.5 Mg/2 Ml Ampul.neb, 0.5 MG NEB RTBID for copd for 30 Days, #60 EACH 3 Refills Prov:LOURDES POLLOCK MD 08/30/18 Potassium Chloride (KLOR-CON 10) 10 Meq Tablet.er, 1 TAB PO DAILY for chf, #30 TAB 5 Refills Prov:LOURDES POLLOCK MD 07/16/18 Furosemide (LASIX) 40 Mg Tablet, 1 TAB PO DAILY for chf, #30 TAB 5 Refills Prov:LOURDES POLLOCK MD 07/16/18 Aspirin (ASPIRIN EC) 81 Mg Tablet.dr, 81 MG PO DAILYWBKFT for afib for 30 Days, #30 TAB.SR Prov:LOURDES POLLOCK MD 07/16/18 Ipratropium/Albuterol Sulfate (DUONEB 0.5-3(2.5) MG/3 ML) 3 Ml Ampul.neb, 3 ML NEB RTQID for breathing for 30 Days, #120 EACH Prov:Steve DALTON MD 07/01/18 Diltiazem Hcl (DILTIAZEM 24HR CD) 120 Mg Cap.er.24h, 120 MG PO DAILY for afib for 30 Days, #30 CAP.SR 6 Refills Prov:Steve DALTON MD 07/01/18 Reported Medications Omeprazole (OMEPRAZOLE) 40 Mg Capsule.dr, 40 MG PO DAILY for GERD, CAP 08/26/18 LOURDES POLLOCK MD December 07, 2018 17:35
[2018-12-07 19:33] VITALS: BP 104/49
[2018-12-07] MEDS: METOPROLOL TART IMMED RELEASE 25 MG TABLET. PO SCH (21:39)
[2018-12-07] MEDS ORDERED: AMINO ACID IV SCH ×10 (22:00)
[2018-12-07] MEDS ORDERED: [UNRECOGNIZED DRUG - OTHER] IV SCH ×10 (22:00)
[2018-12-07] MEDS ORDERED: DEXTROSE 70% IV SCH ×10 (22:00)
[2018-12-07] MEDS ORDERED: TOTAL PARENTERAL NUTRITION IV SCH ×10 (22:00)
[2018-12-07 23:24] VITALS: BP 98/53
[2018-12-08] MEDS: PIPERACILLIN/TAZOBACTAM 3.375 GM in IV NORMAL SALINE 50ML 50 ML IV SCH ×3 (01:06→12:39)
[2018-12-08 03:11] VITALS: BP 98/55
[2018-12-08 06:58] LABS: BASO % 0 % (0-3); EOS % 0 % (0-3); HEMATOCRIT 26.3 % (39.0-53.0); HEMOGLOBIN 8.7 g/dL (13.0-17.5); LYMPH # 0.4 x10^3/uL (1.0-4.8); LYMPH % 3 % (24-48); MEAN CORPUSCULAR HEMOGLOBIN 31 pg (25-35); MEAN CORPUSCULAR HGB CONC 33 g/dL (31-37); MEAN CORPUSCULAR VOLUME 94 fL (79-100); MONO # 1.1 x10^3/uL (0.0-1.1); MONO % 8 % (0-9); NEUT # 12.7 x10^3uL (1.8-7.7); NEUT % 89 % (31-73); PLATELET COUNT 261 x10^3/uL (140-400); RED BLOOD COUNT 2.81 x10^6/uL (4.30-5.70); RED CELL DISTRIBUTION WIDTH 15.7 % (11.5-14.5); WHITE BLOOD COUNT 14.2 x10^3/uL (4.0-11.0)
[2018-12-08 07:00] VITALS: BP 158/79
[2018-12-08] MEDS: LEVOTHYROXINE 50 MCG TABLET PO SCH (07:04)
[2018-12-08 07:05] LABS: CALCIUM 7.6 mg/dL (8.5-10.1); CREATININE 0.6 mg/dL (0.7-1.3); MAGNESIUM 2.1 mg/dL (1.8-2.4); PHOSPHORUS 2.7 mg/dL (2.6-4.7); POTASSIUM 3.7 mmol/L (3.5-5.1)
[2018-12-08] MEDS: IPRATRPIUM/ALBUTEROL 0.5/2.5MG 3 ML NEBU. NEB SCH ×2 (07:45→11:41)
[2018-12-08] MEDS: BUDESONIDE 0.5 MG/2 ML NEBU. NEB SCH (07:45)
[2018-12-08] MEDS: LACTOBACILLUS RHAMNOSUS GG 1 CAPSULE. PO SCH (08:31)
[2018-12-08] MEDS: METOPROLOL TART IMMED RELEASE 25 MG TABLET. PO SCH (08:34)
[2018-12-08] MEDS: ASPIRIN ENTERIC COATED 325 MG TABLET.DR. PO SCH (08:35)
[2018-12-08] MEDS: FUROSEMIDE 40 MG TABLET. PO SCH (08:35)
[2018-12-08] MEDS: HYDROcodone/APAP 7.5/325MG 1 TAB TABLET PO PRN ×2 (08:37→14:36)
[2018-12-08] MEDS: PANTOPRAZOLE 40 MG TABLET.DR. PO SCH (08:39)
[2018-12-08] MEDS: INSULIN LISPRO 300 UNITS/3 ML INSULN.PEN. SQ SCH ×2 (08:43→11:30)
--- NOTE | 2018-12-08 09:13 | PDOC ---
PULMONARY PROGRESS NOTES Subjective NOT SOA Vitals Vital Signs Date Time Temp Pulse Resp B/P (MAP) Pulse Ox O2 Delivery O2 Flow Rate FiO2 12/08/18 08:37 100 Nasal Cannula 3.0 12/08/18 08:34 94 158/79 12/08/18 07:00 97.9 20 97.9 ROS: No Nausea, No Chest Pain, No Increase Cough General: Alert, No acute distress HEENT: Other Lungs: Other (decrease bases) Cardiovascular: S1, S2 Abdomen: Soft, Non-tender, Other Neuro Exam: Alert Extremities: No Edema, Other Labs Laboratory Tests Test 12/06/18 10:40 12/06/18 11:23 12/06/18 16:46 12/06/18 19:53 White Blood Count 14.0 x10^3/uL (4.0-11.0) Red Blood Count 3.08 x10^6/uL (4.30-5.70) Hemoglobin 9.4 g/dL (13.0-17.5) Hematocrit 29.5 % (39.0-53.0) Mean Corpuscular Volume 96 fL (79-100) Mean Corpuscular Hemoglobin 31 pg (25-35) Mean Corpuscular Hemoglobin Concent 32 g/dL (31-37) Red Cell Distribution Width 16.0 % (11.5-14.5) Platelet Count 255 x10^3/uL (140-400) Neutrophils (%) (Auto) 92 % (31-73) Lymphocytes (%) (Auto) 3 % (24-48) Monocytes (%) (Auto) 5 % (0-9) Eosinophils (%) (Auto) 0 % (0-3) Basophils (%) (Auto) 0 % (0-3) Neutrophils # (Auto) 12.8 x10^3uL (1.8-7.7) Lymphocytes # (Auto) 0.4 x10^3/uL (1.0-4.8) Monocytes # (Auto) 0.7 x10^3/uL (0.0-1.1) Eosinophils # (Auto) 0.1 x10^3/uL (0.0-0.7) Basophils # (Auto) 0.0 x10^3/uL (0.0-0.2) Sodium Level 136 mmol/L (136-145) Potassium Level 3.9 mmol/L (3.5-5.1) Chloride Level 101 mmol/L (98-107) Carbon Dioxide Level 29 mmol/L (21-32) Anion Gap 6 (6-14) Blood Urea Nitrogen 14 mg/dL (8-26) Creatinine 0.6 mg/dL (0.7-1.3) Estimated GFR (Cockcroft-Gault) 131.0 BUN/Creatinine Ratio 23 (6-20) Glucose Level 91 mg/dL (70-99) Calcium Level 8.0 mg/dL (8.5-10.1) Total Bilirubin 0.8 mg/dL (0.2-1.0) Aspartate Amino Transf (AST/SGOT) 22 U/L (15-37) Alanine Aminotransferase (ALT/SGPT) 31 U/L (16-63) Alkaline Phosphatase 75 U/L (46-116) Total Protein 5.2 g/dL (6.4-8.2) Albumin 1.9 g/dL (3.4-5.0) Albumin/Globulin Ratio 0.6 (1.0-1.7) Glucose (Fingerstick) 93 mg/dL (70-99) 80 mg/dL (70-99) 140 mg/dL (70-99) Test 12/07/18 03:56 12/07/18 07:22 12/07/18 10:58 12/07/18 16:30 Sodium Level 133 mmol/L (136-145) Potassium Level 3.7 mmol/L (3.5-5.1) Chloride Level 101 mmol/L (98-107) Carbon Dioxide Level 26 mmol/L (21-32) Anion Gap 6 (6-14) Blood Urea Nitrogen 14 mg/dL (8-26) Creatinine 0.6 mg/dL (0.7-1.3) Estimated GFR (Cockcroft-Gault) 131.0 Glucose Level 158 mg/dL (70-99) Calcium Level 7.8 mg/dL (8.5-10.1) Phosphorus Level 2.0 mg/dL (2.6-4.7) Magnesium Level 2.1 mg/dL (1.8-2.4) Triglycerides Level 137 mg/dL (0-150) Glucose (Fingerstick) 153 mg/dL (70-99) 240 mg/dL (70-99) 142 mg/dL (70-99) Test 12/07/18 21:17 12/08/18 05:50 12/08/18 07:49 Glucose (Fingerstick) 163 mg/dL (70-99) 157 mg/dL (70-99) White Blood Count 14.2 x10^3/uL (4.0-11.0) Red Blood Count 2.81 x10^6/uL (4.30-5.70) Hemoglobin 8.7 g/dL (13.0-17.5) Hematocrit 26.3 % (39.0-53.0) Mean Corpuscular Volume 94 fL (79-100) Mean Corpuscular Hemoglobin 31 pg (25-35) Mean Corpuscular Hemoglobin Concent 33 g/dL (31-37) Red Cell Distribution Width 15.7 % (11.5-14.5) Platelet Count 261 x10^3/uL (140-400) Neutrophils (%) (Auto) 89 % (31-73) Lymphocytes (%) (Auto) 3 % (24-48) Monocytes (%) (Auto) 8 % (0-9) Eosinophils (%) (Auto) 0 % (0-3) Basophils (%) (Auto) 0 % (0-3) Neutrophils # (Auto) 12.7 x10^3uL (1.8-7.7) Lymphocytes # (Auto) 0.4 x10^3/uL (1.0-4.8) Monocytes # (Auto) 1.1 x10^3/uL (0.0-1.1) Eosinophils # (Auto) 0.0 x10^3/uL (0.0-0.7) Basophils # (Auto) 0.0 x10^3/uL (0.0-0.2) Sodium Level 132 mmol/L (136-145) Potassium Level 3.7 mmol/L (3.5-5.1) Chloride Level 98 mmol/L (98-107) Carbon Dioxide Level 26 mmol/L (21-32) Anion Gap 8 (6-14) Blood Urea Nitrogen 13 mg/dL (8-26) Creatinine 0.6 mg/dL (0.7-1.3) Estimated GFR (Cockcroft-Gault) 131.0 Glucose Level 162 mg/dL (70-99) Calcium Level 7.6 mg/dL (8.5-10.1) Phosphorus Level 2.7 mg/dL (2.6-4.7) Magnesium Level 2.1 mg/dL (1.8-2.4) Laboratory Tests Test 12/07/18 10:58 12/07/18 16:30 12/07/18 21:17 12/08/18 05:50 Glucose (Fingerstick) 240 mg/dL (70-99) 142 mg/dL (70-99) 163 mg/dL (70-99) White Blood Count 14.2 x10^3/uL (4.0-11.0) Red Blood Count 2.81 x10^6/uL (4.30-5.70) Hemoglobin 8.7 g/dL (13.0-17.5) Hematocrit 26.3 % (39.0-53.0) Mean Corpuscular Volume 94 fL (79-100) Mean Corpuscular Hemoglobin 31 pg (25-35) Mean Corpuscular Hemoglobin Concent 33 g/dL (31-37) Red Cell Distribution Width 15.7 % (11.5-14.5) Platelet Count 261 x10^3/uL (140-400) Neutrophils (%) (Auto) 89 % (31-73) Lymphocytes (%) (Auto) 3 % (24-48) Monocytes (%) (Auto) 8 % (0-9) Eosinophils (%) (Auto) 0 % (0-3) Basophils (%) (Auto) 0 % (0-3) Neutrophils # (Auto) 12.7 x10^3uL (1.8-7.7) Lymphocytes # (Auto) 0.4 x10^3/uL (1.0-4.8) Monocytes # (Auto) 1.1 x10^3/uL (0.0-1.1) Eosinophils # (Auto) 0.0 x10^3/uL (0.0-0.7) Basophils # (Auto) 0.0 x10^3/uL (0.0-0.2) Sodium Level 132 mmol/L (136-145) Potassium Level 3.7 mmol/L (3.5-5.1) Chloride Level 98 mmol/L (98-107) Carbon Dioxide Level 26 mmol/L (21-32) Anion Gap 8 (6-14) Blood Urea Nitrogen 13 mg/dL (8-26) Creatinine 0.6 mg/dL (0.7-1.3) Estimated GFR (Cockcroft-Gault) 131.0 Glucose Level 162 mg/dL (70-99) Calcium Level 7.6 mg/dL (8.5-10.1) Phosphorus Level 2.7 mg/dL (2.6-4.7) Magnesium Level 2.1 mg/dL (1.8-2.4) Test 12/08/18 07:49 Glucose (Fingerstick) 157 mg/dL (70-99) Medications Active Scripts Medications Dose Route/Sig Max Daily Dose Days Date Category Sertraline Hcl 25 Mg Tablet 50 Mg PO QHS 10/01/18 Rx Magnesium Chloride 70 Mg Tablet. 64 Mg PO DAILY 08/30/18 Rx Synthroid (Levothyroxine Sodium) 88 Mcg Tablet 88 Mcg PO DAILY06 08/30/18 Rx Prednisone 20 Mg Tablet 20 Mg PO DAILY 08/30/18 Rx Budesonide 0.5 Mg/2 Ml Ampul.neb 0.5 Mg NEB RTBID 08/30/18 Rx Hydrocodone-Apap 7.5-325 (Hydrocodone Bit/Acetaminophen) 1 Tab Tablet 1 Tab PO PRN Q6HRS PRN 08/26/18 Reported Omeprazole 40 Mg Capsule. 40 Mg PO DAILY 08/26/18 Reported Klor-Con 10 (Potassium Chloride) 10 Meq Tablet.er 1 Tab PO DAILY 07/16/18 Rx Lasix (Furosemide) 40 Mg Tablet 1 Tab PO DAILY 07/16/18 Rx Aspirin Ec (Aspirin) 81 Mg Tablet. 81 Mg PO DAILYWBKFT 07/16/18 Rx Duoneb 0.5-3(2.5) Mg/3 Ml (Albuterol/Ipratropium) 3 Ml Ampul.neb 3 Ml NEB RTQID 07/01/18 Rx Diltiazem 24HR Cd (Diltiazem Hcl) 120 Mg Cap.er.24h 120 Mg PO DAILY 07/01/[address] chest 1. Bibasilar lung consolidation changes likely pneumonia or infiltrates with underlying diffuse bibasilar reticular interstitial lung markings likely idiopathic pulmonary fibrosis. 2. Coronary artery calcifications. 3. Mild compression changes of T9, T10, T12 vertebral bodies. 4. Subcentimeter hypodensity identified in the right lobe of the liver, difficult to characterize similar to prior exam. Impression . IMPRESSION: 1. Acute hypoxemic respiratory failure. multi-factorial 2. Abnormal x-ray compatible with bilateral pulmonary infiltrates, suspect combination of, Pneumonia and acute lung injury from possible aspiration./ underlying severe honeycombing/ fibrosis ct chest 09/21, extensive basal fibrosis 3. Aspiration pneumonia. 4. Small-bowel obstruction. 5. Dysphagia. 6. Leukocytosis. 7. Bacteremia. 8. Atrial fibrillation. 9. [id number] heart failure. BLOOD CULTURE LC Final Final report BLD CULT RESULT 1 Final Comment Streptococcus salivarius group ANTIMICROBIAL SUSCEPTIBILITY Final Comment S = Susceptible; I = Intermediate; R = Resistant P = Positive; N = Negative MICS are expressed in micrograms per mL Antibiotic RSLT#1 RSLT#2 RSLT#3 RSLT#4 Ceftriaxone S<=0.25 Chloramphenicol S =2 Clindamycin S<=0.06 Erythromycin R> 0.5 Penicillin S =0.12 Vancomycin S =0.5 Performed at: [facility] [address] [place] [address] [address], [place], [place] [id number] Sheet Fed Printer: ANGELES Camargo MD, Phone: [phone] Plan . ANTIBX PER ID ADVANCE DIET PER SURGERY OFF STEROIDS UP TO CHAIR CONTINUE SUPPORT PT ARLINE CONSIDER SKILL TRANSFER JON EDWARDS MD December 08, 2018 09:13
--- NOTE | 2018-12-08 10:40 | NUR ---
[facility] following pt. Pt will transport to [facility] via [facility] transport at 1500. Pt's choice and rights forms verbally consented by pt's via phone. Pt aware of plan and agreeable. Orders faxed to [facility] yesterday. Discussed with RN.
[2018-12-08 11:00] VITALS: BP 100/58
--- NOTE | 2018-12-08 11:49 | PDOC ---
Infectious Disease Note Subjective: Subjective Feeling better this morning tolerating full liquids had a large bm today Denies N/V cough and sob improving No fevers/chills ROS: ROS Negative except for above. Vital Signs: Vital Signs Vital Signs Date Time Temp Pulse Resp B/P (MAP) Pulse Ox O2 Delivery O2 Flow Rate FiO2 12/08/18 11:41 Nasal Cannula 3.0 12/08/18 11:00 97.8 75 18 100/58 (72) 90 97.8 Physical Exam: PHYSICAL EXAM GENERAL: Propped up in bed, looks better, eating HEENT: Oral cavity and pharynx dry. NECK: Supple, no JVD. LUNGS: Improved aeration, nonlabored HEART: S1, S2. ABDOMEN: Soft, tender, BS present EXTREMITIES: Without clubbing or cyanosis. Trace edema BLE NEUROLOGIC: Alert, responding appropriately SKIN: Without generalized signs of rash. RUE-PICC (11/30) clean Medications: Inpatient Meds: Current Medications Medications (Trade) Dose Ordered Sig/Anjana Start Time Stop Time Status Last Admin Dose Admin Acetaminophen/ Hydrocodone Bitart (Lortab 7.5/325) 2 tab PRN Q4HRS PRN 12/04/18 07:30 12/05/18 21:16 2 TAB Albumin Human 100 ml @ 100 mls/hr 1X ONCE 11/26/18 09:15 11/26/18 10:14 DC 11/26/18 10:34 100 MLS/HR Albuterol Sulfate (Ventolin Neb Soln) 2.5 mg PRN Q6HRS PRN 11/25/18 04:45 11/28/18 03:57 2.5 MG Albuterol/ Ipratropium (Duoneb) 3 ml RTQID 11/24/18 12:00 12/08/18 11:41 3 ML Amino Acids/ Glycerin/ Electrolytes 1,000 ml @ 80 mls/hr [id number] 12/06/18 05:15 12/06/18 22:00 DC 12/06/18 18:19 80 MLS/HR Amoxicillin/ Clavulanate Potassium (Augmentin 875/ 125mg) 1 tab BID 12/04/18 09:00 12/04/18 14:31 DC 12/04/18 07:55 1 TAB Aspirin (Aspirin) 150 mg DAILY 12/03/18 10:30 12/05/18 13:59 DC 12/05/18 08:26 150 MG Aspirin (Ecotrin) 325 mg [id number] 12/06/18 08:00 12/08/18 08:35 325 MG Benzocaine (Hurricaine One) 1 spray 1X ONCE 11/24/18 05:15 11/24/18 05:16 DC Budesonide (Pulmicort) 0.5 mg RTBID 11/24/18 10:00 12/08/18 07:45 0.5 MG Dextrose (Dextrose 50%-Water Syringe) 12.5 gm PRN Q15MIN PRN 11/24/18 09:45 Famotidine (Pepcid Vial) 20 mg BID 12/02/18 21:00 12/04/18 07:10 DC 12/03/18 21:01 20 MG Fentanyl Citrate (Fentanyl 2ml Vial) 50 mcg PRN Q5MIN PRN 11/29/18 07:00 11/29/18 19:00 DC Furosemide (Lasix) 40 mg DAILY 12/04/18 09:00 12/08/18 08:35 40 MG Hydromorphone HCl (Dilaudid) 0.5 mg PRN Q10MIN PRN 11/29/18 07:00 11/29/18 19:00 DC Info (CONTRAST GIVEN -- Rx MONITORING) 1 each PRN DAILY PRN 11/24/18 03:45 11/26/18 03:44 DC Info (Tpn Per Pharmacy) 1 each PRN DAILY 12/06/18 05:15 12/07/18 14:59 1 EACH Insulin Human Lispro (HumaLOG) 0-12 UNITS QIDACHS 12/02/18 11:30 12/08/18 08:43 2 UNITS Iohexol (Omnipaque 300 Mg/ml) 75 ml 1X ONCE 11/24/18 03:45 11/24/18 03:46 DC 11/24/18 04:30 75 ML Lactobacillus Rhamnosus (Culturelle) 1 cap BID 12/04/18 21:00 12/08/18 08:31 1 CAP Levothyroxine Sodium (Synthroid) 50 mcg DAILY06 12/04/18 07:30 12/08/18 07:04 50 MCG Levothyroxine Sodium 50 mcg/ Sodium Chloride 5 ml @ 100 mls/hr Q3DAYS 12/01/18 09:00 12/04/18 07:10 DC 12/01/18 08:49 100 MLS/HR Lidocaine HCl (Xylocaine-Mpf 1% 2ml Vial) 2 ml PRN 1X PRN 11/29/18 07:00 11/29/18 19:00 DC Methylprednisolone Sodium Succinate (SOLU-Medrol 40MG VIAL) 40 mg DAILY 12/03/18 09:00 12/04/18 07:10 DC 12/03/18 08:48 40 MG Methylprednisolone Sodium Succinate (SOLU-Medrol 125MG VIAL) 80 mg Q8HRS 11/28/18 17:00 12/01/18 17:42 DC 12/01/18 12:35 80 MG Metoprolol Tartrate (Lopressor Vial) 5 mg Q6HRS 11/26/18 16:00 12/07/18 16:14 DC 12/07/18 12:46 5 MG Metoprolol Tartrate (Lopressor) 12.5 mg BID 12/07/18 21:00 12/08/18 08:34 12.5 MG Micafungin Sodium 100 mg/Dextrose 100 ml @ 100 mls/hr Q24H 11/26/18 09:00 11/30/18 14:12 DC 11/30/18 09:14 100 MLS/HR Morphine Sulfate (Morphine Sulfate) 1 mg PRN Q10MIN PRN 11/29/18 07:00 11/29/18 19:00 DC Ondansetron HCl (Zofran) 4 mg PRN Q6HRS PRN 11/29/18 07:00 11/29/18 19:00 DC Pantoprazole Sodium (PROTONIX VIAL for IV PUSH) 40 mg BIDAC 11/25/18 16:30 12/02/18 15:46 DC 12/02/18 06:17 40 MG Pantoprazole Sodium (Protonix) 40 mg DAILYAC 12/04/18 07:30 12/08/18 08:39 40 MG Piperacillin Sod/ Tazobactam Sod (Zosyn Per Pharmacy) 1 each PRN DAILY PRN 11/24/18 06:00 12/04/18 07:10 DC Piperacillin Sod/ Tazobactam Sod 3.375 gm/Sodium Chloride 50 ml @ 100 mls/hr Q6HRS 12/04/18 15:00 12/08/18 05:52 100 MLS/HR Potassium Chloride/Water 100 ml @ 100 mls/hr Q1H 11/29/18 07:00 11/29/18 10:59 DC 11/29/18 14:30 100 MLS/HR Potassium Phosphate 15 mmol/ Sodium Chloride 255 ml @ 85 mls/hr 1X ONCE 12/03/18 13:00 12/03/18 15:59 DC 12/03/18 13:16 85 MLS/HR Prednisone (Prednisone) 20 mg 1X ONCE 12/04/18 07:15 12/04/18 07:16 DC 12/04/18 07:55 20 MG Prochlorperazine Edisylate (Compazine) 5 mg PACU PRN PRN 11/29/18 07:00 11/29/18 19:00 DC Ringer's Solution 1,000 ml @ 30 mls/hr Q24H 11/29/18 07:00 11/29/18 18:59 DC Sodium Chloride 90 meq/Potassium Chloride 50 meq/ Potassium Phosphate 13.6 mmol/Magnesium Sulfate 10 meq/ Calcium Gluconate 10 meq/ Multivitamins 10 ml/Chromium/ Copper/Manganese/ Seleni/Zn 1 ml/ Total Parenteral Nutrition/Amino Acids/Dextrose/ Fat Emulsion Intravenous 1,248 ml @ 52 mls/hr TPN CONT 12/06/18 22:00 12/07/18 21:59 Cancel Sodium Chloride 90 meq/Potassium Chloride 70 meq/ Potassium Phosphate 13.6 mmol/Magnesium Sulfate 10 meq/ Calcium Gluconate 10 meq/ Multivitamins 10 ml/Chromium/ Copper/Manganese/ Seleni/Zn 1 ml/ Total Parenteral Nutrition/Amino Acids/Dextrose/ Fat Emulsion Intravenous 1,512 ml @ 63 mls/hr TPN CONT 12/02/18 22:00 12/03/18 21:59 DC 12/02/18 20:50 63 MLS/HR Sodium Chloride 90 meq/Potassium Chloride 70 meq/ Potassium Phosphate 18 mmol/ Magnesium Sulfate 10 meq/Calcium Gluconate 10 meq/ Multivitamins 10 ml/Chromium/ Copper/Manganese/ Seleni/Zn 1 ml/ Total Parenteral Nutrition/Amino Acids/Dextrose/ Fat Emulsion Intravenous 1,248 ml @ 52 mls/hr TPN CONT 12/06/18 22:00 12/07/18 21:59 DC 12/06/18 22:34 52 MLS/HR Sodium Chloride 90 meq/Sodium Phosphate 10 mmol/ Potassium Chloride 70 meq/ Potassium Phosphate 18 mmol/ Magnesium Sulfate 10 meq/ Multivitamins 10 ml/Chromium/ Copper/Manganese/ Seleni/Zn 1 ml/ Total Parenteral Nutrition/Amino Acids/Dextrose/ Fat Emulsion Intravenous 1,248 ml @ 52 mls/hr TPN CONT 12/07/18 22:00 12/08/18 21:59 12/07/18 21:40 52 MLS/HR Sodium Phosphate 20 mmol/Dextrose 256.6667 ml @ 64.167 m... 1X ONCE 12/07/18 14:30 12/07/18 18:29 DC 12/07/18 14:35 64.167 MLS/HR Labs: Lab Laboratory Tests Test 12/07/18 16:30 12/07/18 21:17 12/08/18 05:50 12/08/18 07:49 Glucose (Fingerstick) 142 mg/dL (70-99) 163 mg/dL (70-99) 157 mg/dL (70-99) White Blood Count 14.2 x10^3/uL (4.0-11.0) Red Blood Count 2.81 x10^6/uL (4.30-5.70) Hemoglobin 8.7 g/dL (13.0-17.5) Hematocrit 26.3 % (39.0-53.0) Mean Corpuscular Volume 94 fL (79-100) Mean Corpuscular Hemoglobin 31 pg (25-35) Mean Corpuscular Hemoglobin Concent 33 g/dL (31-37) Red Cell Distribution Width 15.7 % (11.5-14.5) Platelet Count 261 x10^3/uL (140-400) Neutrophils (%) (Auto) 89 % (31-73) Lymphocytes (%) (Auto) 3 % (24-48) Monocytes (%) (Auto) 8 % (0-9) Eosinophils (%) (Auto) 0 % (0-3) Basophils (%) (Auto) 0 % (0-3) Neutrophils # (Auto) 12.7 x10^3uL (1.8-7.7) Lymphocytes # (Auto) 0.4 x10^3/uL (1.0-4.8) Monocytes # (Auto) 1.1 x10^3/uL (0.0-1.1) Eosinophils # (Auto) 0.0 x10^3/uL (0.0-0.7) Basophils # (Auto) 0.0 x10^3/uL (0.0-0.2) Sodium Level 132 mmol/L (136-145) Potassium Level 3.7 mmol/L (3.5-5.1) Chloride Level 98 mmol/L (98-107) Carbon Dioxide Level 26 mmol/L (21-32) Anion Gap 8 (6-14) Blood Urea Nitrogen 13 mg/dL (8-26) Creatinine 0.6 mg/dL (0.7-1.3) Estimated GFR (Cockcroft-Gault) 131.0 Glucose Level 162 mg/dL (70-99) Calcium Level 7.6 mg/dL (8.5-10.1) Phosphorus Level 2.7 mg/dL (2.6-4.7) Magnesium Level 2.1 mg/dL (1.8-2.4) Objective: Assessment: Bacteremia from 11/24 - (gram neg coccobacilli in 1/4 bottles) Strep salivarius Aspiration pneumonia SBO improving Leukocytosis , possibly reactive steroids AFib CHF Pulmonary fibrosis Plan: Plan of Care DC Zosyn augmentin 875 mg po bid for 5 days Oral care Maintain aspiration precautions Supportive care PT/OT D/W CLARENCE MUÑOZ MD December 08, 2018 11:49
--- NOTE | 2018-12-08 13:28 | PDOC ---
Objective: Objective: Reviewed w/ RN - DC to PP today. Has full liquids and TPN. Vital Signs: Vital Signs Date Time Temp Pulse Resp B/P (MAP) Pulse Ox O2 Delivery O2 Flow Rate FiO2 12/08/18 11:41 Nasal Cannula 3.0 12/08/18 11:00 97.8 75 18 100/58 (72) 90 97.8 Labs: Laboratory Tests Test 12/07/18 16:30 12/07/18 21:17 12/08/18 05:50 12/08/18 07:49 Glucose (Fingerstick) 142 mg/dL 163 mg/dL 157 mg/dL White Blood Count 14.2 x10^3/uL Red Blood Count 2.81 x10^6/uL Hemoglobin 8.7 g/dL Hematocrit 26.3 % Mean Corpuscular Volume 94 fL Mean Corpuscular Hemoglobin 31 pg Mean Corpuscular Hemoglobin Concent 33 g/dL Red Cell Distribution Width 15.7 % Platelet Count 261 x10^3/uL Neutrophils (%) (Auto) 89 % Lymphocytes (%) (Auto) 3 % Monocytes (%) (Auto) 8 % Eosinophils (%) (Auto) 0 % Basophils (%) (Auto) 0 % Neutrophils # (Auto) 12.7 x10^3uL Lymphocytes # (Auto) 0.4 x10^3/uL Monocytes # (Auto) 1.1 x10^3/uL Eosinophils # (Auto) 0.0 x10^3/uL Basophils # (Auto) 0.0 x10^3/uL Sodium Level 132 mmol/L Potassium Level 3.7 mmol/L Chloride Level 98 mmol/L Carbon Dioxide Level 26 mmol/L Anion Gap 8 Blood Urea Nitrogen 13 mg/dL Creatinine 0.6 mg/dL Estimated GFR (Cockcroft-Gault) 131.0 Glucose Level 162 mg/dL Calcium Level 7.6 mg/dL Phosphorus Level 2.7 mg/dL Magnesium Level 2.1 mg/dL Test 12/08/18 12:15 Glucose (Fingerstick) 162 mg/dL PE: GEN: NAD LUNGS: NC NEURO/PSYCH: sleeping, not awakened A/P: Recurrent SBO -- DC plans noted. TIO ACEVEDO December 08, 2018 13:28
== END 2018-12-08 15:24 | disposition home or self-care (01) | DRG 871 ==
LOC: ER 02:57 → 6 SOUTH 05:54
PROVIDERS: ADMIT Family Medicine; ATTEND Family Medicine
PROC: 0D9670Z Drainage of Stomach with Drainage Device, Via Natural or Artificial Opening (ICD-10-PCS; principal; 2018-11-24)
PROC: 02HV33Z Insertion of Infusion Device into Superior Vena Cava, Percutaneous Approach (ICD-10-PCS; 2018-11-30)
PROC: B548ZZA Ultrasonography of Superior Vena Cava, Guidance (ICD-10-PCS; 2018-11-30)
DX: A41.9 Sepsis, unspecified organism (principal); J69.0 Pneumonitis due to inhalation of food and vomit; E43 Unspecified severe protein-calorie malnutrition; J96.01 Acute respiratory failure with hypoxia; I50.33 Acute on chronic diastolic (congestive) heart failure; K56.51 Intestinal adhesions [bands], with partial obstruction; M48.54XA Collapsed vertebra, not elsewhere classified, thoracic region, initial encounter for fracture; M48.55XA Collapsed vertebra, not elsewhere classified, thoracolumbar region, initial encounter for fracture; I11.0 Hypertensive heart disease with heart failure; F32.9 Major depressive disorder, single episode, unspecified; J44.9 Chronic obstructive pulmonary disease, unspecified; F41.9 Anxiety disorder, unspecified; K21.0 Gastro-esophageal reflux disease with esophagitis; D64.9 Anemia, unspecified; R73.9 Hyperglycemia, unspecified; I25.10 Atherosclerotic heart disease of native coronary artery without angina pectoris; E78.5 Hyperlipidemia, unspecified; M19.90 Unspecified osteoarthritis, unspecified site; M34.9 Systemic sclerosis, unspecified; Z51.5 Encounter for palliative care; E03.9 Hypothyroidism, unspecified; I48.0 Paroxysmal atrial fibrillation; I49.3 Ventricular premature depolarization; Z85.46 Personal history of malignant neoplasm of prostate; Z90.79 Acquired absence of other genital organ(s); Z90.49 Acquired absence of other specified parts of digestive tract; Z86.010 Personal history of colon polyps; Z92.3 Personal history of irradiation; Z83.2 Family history of diseases of the blood and blood-forming organs and certain disorders involving the immune mechanism; Z87.891 Personal history of nicotine dependence; Z87.01 Personal history of pneumonia (recurrent); S05.12XA Contusion of eyeball and orbital tissues, left eye, initial encounter
CPT/HCPCS: 36415; 36569; 71045; 71250; 74018; 74021; 74177; 80048; 80053; 81001; 82607; 82728; 82962; 83036; 83540; 83550; 83605; 83735; 83880; 84100; 84132; 84439; 84443; 84478; 84484; 85007; 85025; 85027; 85045; 85610; 86850; 86900; 86901; 87040; 87077; 87205; 87641; 93005; 94640; 94760; 96361; 96374; 96375; C9113; J0610; J1815; J1940; J2248; J2270; J2405; J2543; J2920; J2930; J3010; J3475; J3480; J3490; J7030; J7050; J7512; J7613; J7620; J7626; P9046; Q9967; 97110; 97116; 97530; 97535; 99285-25